=== PATIENT | male | born 1955 | race Caucasian/White ===

== ENCOUNTER 2020-03-14 13:04 | Emergency (ER) | payer OTHER, SELFPAY ==
[2020-03-14 13:19] VITALS: BP 120/67; BP 138/68; PULSE 65; PULSE 87; RESP 18; TEMP 36.8; O2SAT 96; BMI 34.9
--- NOTE | 2020-03-14 13:43 | ED.GENADULT ---
HPI - General Adult General Chief complaint: General Medical Stated complaint: R FLANK PAIN X'S 3 DAYS,PAIN W/URINE Time Seen by Provider: 03/14/20 13:36 Source: patient Mode of arrival: ambulatory Limitations: no limitations History of Present Illness HPI narrative: Patient presents to ED for right flank pain and dysuria for the past 3 days. Patient denies any recent trauma, heavy lifting. Patient denies any nausea, vomiting, fever, or chills patient denies any blood in stool or urine. Related Data Previous Rx's Medication Instructions Recorded cyclobenzaprine 10 mg PO TID PRN #15 tab 03/14/20 naproxen 500 mg PO BID PRN #20 tab 03/14/20 Allergies Allergy/AdvReac Type Severity Reaction Status Date / Time ENVIRONMENTAL Allergy Mild SNEEZING, Uncoded 01/25/20 15:36 WATERY EYES Review of Systems Review of Systems: Yes all other systems are reviewed and are negative Constitutional: Constitutional: Reports as per HPI and Reports no additional constitutional complaints Eyes: Eyes: Reports as per HPI and Reports no additional eye complaints ENT: Reports system reviewed and no additional complaints, except as documented and Reports as per HPI Cardiovascular: Cardiovascular: Reports as per HPI and Reports no additional cardiovascular complaints Respiratory: Respiratory: Reports as per HPI and Reports no additional respiratory complaints Gastrointestinal: Gastrointestinal: Reports as per HPI and Reports no additional gastrointestinal complaints Genitourinary: Genitourinary: Reports dysuria and Reports flank pain ( Right) Musculoskeletal: Musculoskeletal: Reports no additional musculoskeletal complaints Neurologic: Reports system reviewed and no additional complaints, except as documented and Reports as per HPI Psychiatric: Psychiatric: Reports no additional psychiatric complaints and Reports as per HPI [facility] Past Medical History Medical History (Updated 03/14/20 @ 18:36 by DARLINE Leiva) Diabetes mellitus type 1 Hypertension Social History Social History Alcohol intake: former Smoking Status: Former smoker Use of substances other than those prescribed or required for medical reasons: No Advance Directives: Yes Advance Directives Information Provided: Yes Advance Directives on File: No Physical Exam Vital Signs: Vital Signs: Vital Signs Temp Pulse Resp BP Pulse Ox 03/14/20 17:27 97.6 F 86 18 132/69 96 03/14/20 13:19 98.2 F 87 18 120/67 96 Body Mass Index 34.9 Const: General: cooperative, healthy appearing, comfortable, no acute distress, well developed, alert and awake Orientation/consciousness: oriented to person, oriented to place, oriented to time and patient oriented x3 HENMT: Head: Yes normal to inspection and Yes No palpable skull fracture present Eyes: General: appearance normal, both eyes and all related structures Visual Emery: normal visual emery by confrontation Neck: Neck: Yes normal visual inspection and Yes full ROM Chest: Chest palpation & inspection: normal inspection of the chest and normal palpation of entire chest wall Resp: Effort & Inspection: normal respiratory effort and able to speak in complete sentences Cardio: Jugular venous distension: no JVD Heart sounds: S1 normal heart sound present and S2 normal heart sound present GI: Inspection: Yes normal to inspection and No abdominal wall ecchymosis Palpation (GI): Soft to palpation, not firm, Tenderness to palpation present (GI) in the RLQ; not at McBurney's point, not periumbilically, not suprapubicly, Gagnon's sign negative, obturator sign negative, with no rebound tenderness and Rovsing's sign negative, no guarding and not rigid : General: Yes CVA tenderness (RIght) Back/Spine/Pelvis: Back: CVA tenderness (RIght) Skin: General skin exam: no rashes or lesions noted Neuro: General: oriented to person, oriented to place, oriented to time, patient oriented x3, gait normal, tone normal and CN's II-XI intact bilaterally Cranial nerves: Yes CN's II-XII intact bilaterally Extrem: General: Yes normal to inspection and Yes full ROM Psych: Appearance: grossly normal, well kempt and not disheveled Course Course Course Narrative: history and physical exam indicate renal colic. Will do basic labs, urine, CT scan, and IV fluids if necessary. Reevaluation(s) Reevaluation #1: patient does not want to give urine. Patient sent for abdominal CT scan in the meantime to rule out kidney stones. Patient is not in any distress. Time: 15:45 Reevaluation #2: patient labs came back normal. UA came back normal. CT scan does not show any final/pelvic etiology. Patient was re-evaluated and he reiterated dysuria and also flank pain is worse on movement. Most likely muscular will give patient Flexeril after given morphine. Time: 17:34 Reevaluation #3: Patient is sleeping and not in any distress. Patient will be discharged with NSAIDs and muscle relaxer. I do not suspect renal artery thrombus/occlusion. Patient is not hypertensive. Patient's kidney function is normal. Patient also states pain is worse on movement on re-evaluation earlier in the ED visit. Patient is safe for discharge. Time: 18:35 Additional Reevaluation(s): Patient walked out the ER before discharge papers could be given to him. Nursing and I went back to the bed and patient was not at the bed and his hospital gown was on the bed. Plan was to educate and re-evaluate patient. Medical Decision Making MDM Narrative Medical decision making narrative: muscular pain Lab Data Result diagrams: 03/14/20 14:47 03/14/20 14:47 Labs: Lab Results 03/14/20 03/14/20 03/14/20 Range/Units 14:47 14:47 14:47 WBC 9.1 (4.8-10.8) X10*3/uL RBC 4.69 (4.60-5.80) X10*6/uL Hgb 14.8 (14.0-18.0) g/dl Hct 44.3 (42-52) % MCV 94.5 (80-98) fL MCH 31.6 (27.0-33.0) pg MCHC 33.4 (31.0-36.0) g/dl RDW 13.7 (11.0-16.0) % Plt Count 232 (160-400) X10*3/uL MPV 9.1 L (9.4-12.4) fL Immature Gran % (Auto) 0.2 (0.0-0.4) % Neut % (Auto) 71.7 (45-73) % Lymph % (Auto) 16.0 L (20-40) % [place] % (Auto) 6.6 (2-11) % Eos % (Auto) 4.7 H (0-4) % Baso % (Auto) 0.8 (0-2) % Lymph # (Auto) 1.5 (1.2-4.9) X10*3/uL [place] # (Auto) 0.6 (0.1-1.2) X10*3/uL Eos # (Auto) 0.4 (0.0-0.4) X10*3/uL Baso # (Auto) 0.1 (0.0-0.2) X10*3/uL Abs Immat Gran (auto) 0.02 (0.00-0.03) X10*3/uL Absolute Neuts (auto) 6.5 (2.0-8.3) X10*3/uL Absolute Nucleated RBC 0.000 (0.0-0.012) X10*3/uL Nucleated RBC % (auto) 0.0 (0.0-0.2) /100WBC PT 13.5 H (10.8-13.0) SEC INR 1.1 (0.9-1.1) APTT 33.6 (24.1-38.0) SEC Sodium 139 (135-145) mmol/L Potassium 4.0 (3.3-5.1) mmol/l Chloride 100 (96-108) mmol/L Carbon Dioxide 29 (22-29) mmol/L Anion Gap 14 (12-20) BUN 11 (9-16) mg/dL Creatinine 1.02 (0.5-1.4) mg/dL Estim Creat Clear Calc 85.6 Estimated GFR > 60 Random Glucose 109 (60-115) mg/dL Calcium 8.0 L (8.4-10.2) mg/dL Total Bilirubin 0.3 (0.0-1.0) mg/dL AST 18 (5-37) U/L ALT 11 (0-40) U/L Alkaline Phosphatase 95 (39-117) U/L Total Protein 6.7 (6.5-8.0) g/dL Albumin 4.1 (3.5-5.0) g/dL Urine Color Urine Appearance Urine pH (5.0-8.0) Ur Specific [place] (1.005-1.025) Urine Protein (NEG-TRACE) MG/DL Urine Glucose (UA) (NEG) MG/DL Urine Ketones (NEG) MG/DL Urine Blood (NEG) Urine Nitrite (NEG) Ur Leukocyte Esterase (NEG) 03/14/20 Range/Units 16:07 WBC (4.8-10.8) X10*3/uL RBC (4.60-5.80) X10*6/uL Hgb (14.0-18.0) g/dl Hct (42-52) % MCV (80-98) fL MCH (27.0-33.0) pg MCHC (31.0-36.0) g/dl RDW (11.0-16.0) % Plt Count (160-400) X10*3/uL MPV (9.4-12.4) fL Immature Gran % (Auto) (0.0-0.4) % Neut % (Auto) (45-73) % Lymph % (Auto) (20-40) % [place] % (Auto) (2-11) % Eos % (Auto) (0-4) % Baso % (Auto) (0-2) % Lymph # (Auto) (1.2-4.9) X10*3/uL [place] # (Auto) (0.1-1.2) X10*3/uL Eos # (Auto) (0.0-0.4) X10*3/uL Baso # (Auto) (0.0-0.2) X10*3/uL Abs Immat Gran (auto) (0.00-0.03) X10*3/uL Absolute Neuts (auto) (2.0-8.3) X10*3/uL Absolute Nucleated RBC (0.0-0.012) X10*3/uL Nucleated RBC % (auto) (0.0-0.2) /100WBC PT (10.8-13.0) SEC INR (0.9-1.1) APTT (24.1-38.0) SEC Sodium (135-145) mmol/L Potassium (3.3-5.1) mmol/l Chloride (96-108) mmol/L Carbon Dioxide (22-29) mmol/L Anion Gap (12-20) BUN (9-16) mg/dL Creatinine (0.5-1.4) mg/dL Estim Creat Clear Calc Estimated GFR Random Glucose (60-115) mg/dL Calcium (8.4-10.2) mg/dL Total Bilirubin (0.0-1.0) mg/dL AST (5-37) U/L ALT (0-40) U/L Alkaline Phosphatase (39-117) U/L Total Protein (6.5-8.0) g/dL Albumin (3.5-5.0) g/dL Urine Color YELLOW Urine Appearance CLEAR Urine pH 6.5 (5.0-8.0) Ur Specific [place] 1.010 (1.005-1.025) Urine Protein NEG (NEG-TRACE) MG/DL Urine Glucose (UA) NEG (NEG) MG/DL Urine Ketones NEG (NEG) MG/DL Urine Blood NEG (NEG) Urine Nitrite NEG (NEG) Ur Leukocyte Esterase NEG (NEG) Discharge Plan Discharge Clinical Impression: Acute right flank pain, Muscle strain Patient Disposition: Elopement Instructions: Muscle Strain (ED), Flank Pain (ED) Additional Instructions: return to the ED for worsening flank pain, high blood pressure, nausea, vomiting, hematuria, dysuria, fever, chills, chest pain, shortness of breath, or any other concerning symptoms. Prescriptions: New naproxen 500 mg tablet 500 mg PO BID PRN (Reason: pain) Qty: 20 RF: 0 cyclobenzaprine 10 mg tablet 10 mg PO TID PRN (Reason: muscle spasm) Qty: 15 RF: 0 Referrals: Jaylen Cummings MD [Primary Care Provider] - 2 days (Muscular flank pain) Stand Alone Forms: Work/School Release Interventions: ED Discharge Assessment Last Done: 03/14/20 19:04 Discharge Date/Time: 03/14/20 19:06 Print Language: Danish
[2020-03-14] MEDS: Ketorolac Tromethamine 30 MG/ML VIAL IM (14:32)
--- NOTE | 2020-03-14 14:32 | CT_ITS ---
EXAMINATION: CT ABDOMEN AND PELVIS WITHOUT CONTRAST CLINICAL INFORMATION: Right flank pain. Kidney stones. COMPARISON: CT scan abdomen pelvis 02/05/2020, 12/31/2019 TECHNIQUE: Multidetector volumetric imaging was performed from the superior aspect of the liver through the pubic symphysis. Sagittal and coronal reformatted images were obtained on the technologist's workstation. This CT examination was performed using dose optimization techniques as appropriate, variously including the following: *Automated exposure control *Adjustment of mA and/or kV according to patient size (this includes techniques or standardized protocols for targeted exams where dose is matched to indication/reason for exam; i.e. extremities or head) *Use of iterative reconstruction technique DLP: 759 mGy-cm FINDINGS: LUNG BASES: Scarring/dependent atelectasis at the posterior dependent lung bases bilateral. There is no pleural effusion. LIVER, GALLBLADDER, AND BILIARY TREE: The liver is normal in size, shape, and attenuation. No focal hepatic lesion or biliary ductal dilatation is present. The gallbladder is unremarkable with no evidence of radiopaque gallstones, gallbladder wall thickening, or obvious pericholecystic inflammatory changes. PANCREAS: Unremarkable. SPLEEN: Unremarkable. ADRENAL GLANDS: Unremarkable. KIDNEYS AND URETERS: The kidneys are normal in size, shape, and attenuation. No hydronephrosis, hydroureter, or calculi seen. No perinephric stranding. BLADDER: Unremarkable. GASTROINTESTINAL TRACT: There are numerous diverticula of the proximal sigmoid colon and the descending colon. There are scattered diverticula in the remainder the colon. There is no diverticulitis. There is no bowel wall thickening /edema. There is no bowel obstruction. There is a moderate volume of stool in the colon. The appendix is normal . The small bowel loops are unremarkable. The stomach is normal. There is no hiatal hernia. ABDOMINAL WALL: No significant hernia is appreciated. LYMPH NODES: Normal. VASCULAR: There are scattered vascular calcifications of aorta and iliac arteries. There is no aneurysm. PELVIC VISCERA: Prostate measures 4.3 cm transverse OSSEOUS STRUCTURES: Unremarkable. CT/CT abdomen pelvis wo con IMPRESSION: There is no acute abnormality CT scan abdomen pelvis. Normal kidneys, ureter and bladder. There is diverticulosis of the colon without evidence of diverticulitis
[2020-03-14 14:52] LABS: MANUAL DIFF FLAG NO
[2020-03-14 14:56] LABS: Basophils Absolute Auto 0.1 X10*3/uL (0.0-0.2); Basophils Percent Auto 0.8 % (0-2); Eosinophils Absolute Auto 0.4 X10*3/uL (0.0-0.4); Eosinophils Percent Auto 4.7 % (0-4); Hematocrit 44.3 % (42-52); Hemoglobin 14.8 g/dl (14.0-18.0); Imm Gran Abs Auto 0.02 X10*3/uL (0.00-0.03); Imm Gran Pct Auto 0.2 % (0.0-0.4); Lymphocytes Absolute Auto 1.5 X10*3/uL (1.2-4.9); Mean Corpuscular HGB Conc 33.4 g/dl (31.0-36.0); Mean Corpuscular Hemoglobin 31.6 pg (27.0-33.0); Mean Corpuscular Volume 94.5 fL (80-98); Mean Platelet Volume 9.1 fL (9.4-12.4); Monocytes Absolute Auto 0.6 X10*3/uL (0.1-1.2); Monocytes Percent Auto 6.6 % (2-11); Neutrophils Absolute Auto 6.5 X10*3/uL (2.0-8.3); Neutrophils Percent Auto 71.7 % (45-73); Platelet Count 232 X10*3/uL (160-400); Red Blood Count 4.69 X10*6/uL (4.60-5.80); Red Cell Distribution Width 13.7 % (11.0-16.0); White Blood Count 9.1 X10*3/uL (4.8-10.8)
[2020-03-14 14:58] LABS: INTERNATIONAL NORM RATIO 1.1 (0.9-1.1); Prothrombin Time 13.5 SEC (10.8-13.0)
[2020-03-14 15:01] LABS: Partial Thromboplastin Time 33.6 SEC (24.1-38.0)
[2020-03-14 15:13] LABS: Alanine Aminotransferase 11 U/L (0-40); Albumin Level 4.1 g/dL (3.5-5.0); Alkaline Phosphatase 95 U/L (39-117); Anion Gap 14 (12-20); Aspartate Amino Transferase 18 U/L (5-37); Bilirubin Total 0.3 mg/dL (0.0-1.0); Blood Urea Nitrogen 11 mg/dL (9-16); Carbon Dioxide 29 mmol/L (22-29); Chloride 100 mmol/L (96-108); Creatinine Clr Calc Pharmacy 85.6; Estimated Glomerular Filt Rate > 60; Glucose Random 109 mg/dL (60-115); Sodium 139 mmol/L (135-145); Total Protein 6.7 g/dL (6.5-8.0)
[2020-03-14 16:20] LABS: Glucose Urine UA NEG (NEG); Leukocyte Esterase Urine NEG (NEG); Nitrite Urine NEG (NEG); PH 6.5 (5.0-8.0); Urine Blood NEG (NEG); Urine Ketones NEG (NEG); Urine Protein NEG (NEG-TRACE)
[2020-03-14 16:26] LABS: Appearance Urine CLEAR; Color Urine YELLOW
[2020-03-14] MEDS: Morphine Sulfate 4 MG/ML CARTRIDGE IM (16:54)
[2020-03-14 17:27] VITALS: BP 132/69; PULSE 86; RESP 18; TEMP 36.4; O2SAT 96
== END 2020-03-14 19:06 | disposition left against medical advice (07) ==
PROVIDERS: Physician Assistant; Emergency Provider Emergency Medicine; PCP Internal Medicine Geriatric Medicine
DX: S39.011A Strain of muscle, fascia and tendon of abdomen, initial encounter (principal); R10.9 Unspecified abdominal pain; E10.9 Type 1 diabetes mellitus without complications; I10 Essential (primary) hypertension; X50.3XXA Overexertion from repetitive movements, initial encounter; X50.0XXA Overexertion from strenuous movement or load, initial encounter; R30.0 Dysuria; X50.9XXA Other and unspecified overexertion or strenuous movements or postures, initial encounter; Y93.9 Activity, unspecified; Y92.9 Unspecified place or not applicable; Y99.9 Unspecified external cause status; Z79.899 Other long term (current) drug therapy
CPT/HCPCS: 36415; 74176; 80053; 81003; 85025; 85610; 85730; 96361; 96372; 96374; 96376; 99284; J1885; J2270

== ENCOUNTER → 2020-04-29 12:52 | Outpatient (REF) | payer OTHER, SELFPAY ==
--- NOTE | 2020-04-29 13:00 | CA_ITS ---
Transthoracic Echocardiogram Patient (Last, First, Middle): Kenneth Aragon A Gender: Male Date of : 1955 Age: 64 Procedure Date: 04/29/2020 Procedure Type: Transthoracic Echocardiogram Location: OP Height: 172.72 cm Weight: 104.33 kg BSA: 2.17 m2 Heart Rate: bpm BP: 120 / 82 mmHg Security Professional: LINDSEY Sood MD: Tanya Kilgore NP-Jreardo Die Developer: Johnson Senior MD Symptoms: I35.0 , I10 HTN Study Quality: Fair ECG Rhythm: Sinus Conclusions: - 1. Normal LV systolic function with impaired relaxation filling pattern 2. Moderate severe aortic stenosis 3. No pericardial effusion Findings Procedure Information The patient declines contrast. Left Ventricle Normal left ventricular size, thickness, and systolic function. The visually estimated ejection fraction is between 55-60%. Spectral Doppler is indicative of an impaired relaxation filling pattern. E/E prime ratio is between 8 and 15 consistent with indeterminate filling pressures. Right Ventricle The right ventricle was not well visualized. Atria The left atrium is normal in size. Interatrial shunt cannot be excluded. The right atrium was not well visualized. Aortic Valve There is moderate calcification of the aortic valve. There is moderate thickening of the aortic valve. There is moderate to severe aortic valve stenosis. The peak aortic gradient is 51 mmHg.The mean gradient is 27 mmHg. The aortic valve area is 1.05 cm2. There is trace (trivial) aortic valve regurgitation. Mitral Valve There is mild anterior mitral leaflet thickening. There is trace mitral valve regurgitation. There is no mitral valve stenosis. Pulmonic Valve The pulmonic valve was not well visualized. Tricuspid Valve The tricuspid valve was not well visualized. Tricuspid regurgitation envelope is inadequate for calculation of right ventricular systolic pressure. Great Vessels All visible segments of the aorta are normal in size. The pulmonary artery was not well visualized. Venous The inferior vena cava is normal in size and collapses greater than 50% with inspiration. Pericardium/Pleural There is no evidence of pericardial effusion. Prior Study Comparison Changes noted compared to prior study dated: 04/25/2019. Moderate-severe is present Measurements 2D Linear Measurements IVSd: 1.09 0.6-0.9/0.6-1.0 cm LVIDd: 4.39 3.9-5.3/4.2-5.9 cm LVIDd Index: 2.02 2.4-3.2/2.2-3.1 cm/m2 LVIDs: 2.79 2.0-3.6 cm LVPWd: 1.07 0.7-1.1 cm Ao Root: 3.10 2.1-3.5 cm LA Diam: 2.80 2.7-3.8/3.0-4.0 cm LAIDs Index: 1.29 1.5-2.3 cm/m2 LV Mass: 204.26 67-162/88-224 g LV Mass Index: 94.13 43-95/49-115 g/m2 LVOT Diam: 2.10 3.0+(-)1.3 cm 2D Systolic Function EF 4C: 56.70 >55% EF 2C: 61.50 >55% EF BiP: 58.20 >55% Mitral Valve MV Pk E: 1.01 MV PK A: 0.83 MV Decel Time: 232.00 E/A: 1.20 E'Lateral: 7.72 E'Medial: 6.42 E/E' Med: 15.70 E/E' Lat: 13.10 PHT: 68.00 MVA PHT: 3.24 Decel [place]: 4.34 Aortic Valve AoV Pk Elpidio: 3.58 AoV Mn Elpidio: 2.47 AoV VTI: 0.79 AoV Pk Grad: 51.00 Aov Mn Grad: 27.00 MABEL Cont.VTI: 1.05 LVOT LVOT Pk Elpidio: 1.07 LVOT Mn Elpidio: 0.74 LVOT VTI: 0.24 LVOT Pk Grad: 5.00 LVOT Mn Grad: 2.00 LVOT Diam: 2.10 LVOT Area: 3.46 Diastolic Function MV Pk E: 1.01 MV Pk A: 0.83 E/A: 1.20 E'Medial: 6.42 E/E' Med: 15.70 E' Laterial: 7.72 E/E' Lat: 13.10 Tricuspid Valve RA Press: 3.00 Great Vessels Aorta Ao Root-2D: 3.10 2.0-3.7 cm Ao Asc: 3.00 2.1-3.4 cm Updated in Other Vendor System with Status of Final Johnson Senior MD electronically signed on 04/29/2020 6:28:20 PM with status of Final
--- NOTE | 2020-04-29 14:02 | XR_ITS ---
EXAMINATION: XR SHOULDER, LEFT CLINICAL INFORMATION: Left shoulder pain. COMPARISON: Radiographs left shoulder 04/30/2008 TECHNIQUE: Left shoulder is imaged in 4 views. FINDINGS: There is no fracture, dislocation, or destructive process. The acromioclavicular alignment is normal. There are progressive osteoarthritic changes glenohumeral joint with joint narrowing and mild subchondral sclerosis and spurring. Some focal calcific tendinosis is seen at the origin long head biceps at the superior aspect glenoid rim. The calcific tendinosis noted previously and distal superior rotator cuff is not demonstrated on current study. XR/XR shoulder LT min 2V IMPRESSION: 1. Osteoarthritis glenohumeral joint increased since prior study 2007. 2. Calcific tendinosis in region of proximal long head biceps at the superior glenoid.
== END ==
LOC: HO.CARD 12:52
PROVIDERS: Visit Provider Nurse Practitioner Family
DX: M25.512 Pain in left shoulder (principal); I35.0 Nonrheumatic aortic (valve) stenosis; I50.30 Unspecified diastolic (congestive) heart failure; I11.0 Hypertensive heart disease with heart failure
CPT/HCPCS: 73030; 93306

== ENCOUNTER → 2020-06-03 10:41 | Outpatient (BNVA) | payer OTHER, SELFPAY | PROVIDERS: PCP Internal Medicine Geriatric Medicine; Visit Provider Nurse Practitioner Family | DX: I35.0 Nonrheumatic aortic (valve) stenosis (principal); I51.89 Other ill-defined heart diseases; I50.30 Unspecified diastolic (congestive) heart failure; I11.0 Hypertensive heart disease with heart failure; E66.9 Obesity, unspecified; F10.10 Alcohol abuse, uncomplicated; J44.9 Chronic obstructive pulmonary disease, unspecified | CPT/HCPCS: 99212 ==

== ENCOUNTER 2020-07-03 04:43 | Emergency (ER) | payer OTHER, SELFPAY ==
--- NOTE | ~2020-07-03 | XR_ITS ---
EXAMINATION: XR CHEST CLINICAL INFORMATION: Shortness of breath COMPARISON: 01/31/2020 TECHNIQUE: Frontal view of the chest was obtained. FINDINGS: Right shoulder arthroplasty. The lungs are well expanded. There is no focal consolidation, edema, or effusion. No pneumothorax. The cardiomediastinal silhouette is within normal limits. No acute osseous abnormality. XR/XR chest 1V IMPRESSION: No acute pulmonary finding.
[2020-07-03 04:56] VITALS: BP 145/95; BP 158/79; PULSE 108; PULSE 110; RESP 26; TEMP 37.1; O2SAT 94; O2SAT 95; BMI 58.6
--- NOTE | 2020-07-03 05:06 | ED_ITS ---
HPI - SOB/Dyspnea General Chief Complaint: Upper Respiratory Symptoms Stated Complaint: SOB AND LEFT SIDE PAIN Time Seen by Provider: 07/03/20 04:55 Source: patient Mode of arrival: EMS Limitations: no limitations History of Present Illness HPI Narrative: Patient chronic smoker with history of COPD diastolic heart f ailure been coughing for last 2 weeks mostly dry cough with shortness of breath also complaining of left lower rib pain , no fever no chills no exposure to COVID no other family member is sick no fall no diaphoresis MD elicited complaint: shortness of breath and cough Pertinent past history: COPD and congestive heart failure Onset (ago): week(s) (2) Timing: intermittent Severity: moderate Exacerbating factors: coughing Relieving factors: nothing Known history of: COPD and congestive heart failure Associated symptoms: pain with inspiration Related Data Home Medications Medication Instructions Recorded Confirmed albuterol sulfate 90 mcg/actuation 0 mcg INHALATION 06/03/20 06/03/20 aerosol inhaler aspirin 81 mg tablet,delayed 81 mg PO BEDTIME 06/03/20 06/03/20 release buspirone 5 mg tablet 5 mg PO 06/03/20 06/03/20 celecoxib 50 mg capsule 50 mg PO DAILY cap 06/03/20 06/03/20 fluticasone propionate 50 1 - 2 spray INTRANASAL DAILY PRN 06/03/20 06/03/20 mcg/actuation nasal spray,suspension folic acid 1 mg tablet 1 mg PO BEDTIME 06/03/20 06/03/20 furosemide 20 mg tablet 20 mg PO DAILY 06/03/20 06/03/20 gabapentin 300 mg capsule 300 mg PO DAILY cap 06/03/20 06/03/20 insulin aspart U-100 100 unit/mL 15 unit SUBCUT TID 06/03/20 06/03/20 subcutaneous solution insulin glargine 100 unit/mL 40 unit SUBCUT BEDTIME 06/03/20 06/03/20 subcutaneous solution lisinopril 10 mg tablet 10 mg PO QAM 06/03/20 06/03/20 multivitamin 1 tab PO QAM 06/03/20 06/03/20 omega-3 fatty acids-fish oil 340 1 cap PO QAM 06/03/20 06/03/20 mg-1,000 mg capsule omeprazole 20 mg capsule,delayed 20 mg PO QAM 06/03/20 06/03/20 release quetiapine 50 mg tablet 50 mg PO DAILY tab 06/03/20 06/03/20 simvastatin 20 mg tablet 20 mg PO BEDTIME 06/03/20 06/03/20 thiamine HCl (vitamin B1) 100 mg 100 mg PO DAILY 06/03/20 06/03/20 tablet Previous Rx's Medication Instructions Recorded cyclobenzaprine 10 mg PO TID PRN #15 tab 03/14/20 naproxen 500 mg PO BID PRN #20 tab 03/14/20 cefuroxime axetil 500 mg PO BID #20 tab 07/03/20 codeine-guaifenesin 5 ml PO Q6H PRN #120 ml 07/03/20 doxycycline hyclate 100 mg PO BID #20 cap 07/03/20 prednisone 40 mg PO DAILY #10 tab 07/03/20 tramadol 50 mg PO Q6H PRN #20 tab 07/03/20 Allergies Allergy/AdvReac Type Severity Reaction Status Date / Time ENVIRONMENTAL Allergy Mild SNEEZING, Uncoded 01/25/20 15:36 WATERY EYES Review of Systems Review of Systems: Constitutional : No Weight loss, No Fever, No Chills ENT/Mouth : No sore throat, No Rhinorrhea Eyes: No Eye Pain, No Swelling Cardiovascular :+ Chest Pain, no palpitations Respiratory :+Cough, +Sputum, +shortness of breath Gastrointestinal : no Nausea, No Vomiting, No Diarrhea, No abdominal Pain, no black stools Genitourinary : No Dysuria, No Urinary Frequency Musculoskeletal : No joint pain, No Myalgias, No Joint Swelling Skin : No Skin Lesions, No rash Neuro : No Weakness, No Numbness, No Dizziness, No Headache Psych : No Anxiety/Panic, No Depression Heme/Lymph: No Bruising, No Lymphadenopathy Endocrine : No Polyuria, No Polydipsia All other systems reviewed and are negative [facility] Past Medical History Medical History Alcohol abuse COPD (chronic obstructive pulmonary disease) Diabetes mellitus type 1 Diastolic dysfunction Diastolic heart failure HLD (hyperlipidemia) Hypertension Nonrheumatic aortic (valve) stenosis Obesity Family History Family History Father Diabetes Mother Diabetes Social History Social History Alcohol intake: never Smoking Status: Light tobacco smoker Use of substances other than those prescribed or required for medical reasons: No Advance Directives: No Physical Exam Vital Signs: Vital Signs: Last Vital Signs Temp 98.7 F 07/03/20 06:00 Pulse 103 H 07/03/20 06:05 Resp 16 07/03/20 06:00 BP 108/61 07/03/20 06:00 Pulse Ox 95 07/03/20 06:00 Body Mass Index 58.6 Const: General: alert and in distress Nutritional Appearance: obese Orientation/consciousness: patient oriented x3 Limitations: no limitations HENMT: Head: Yes normocephalic and Yes atraumatic Mouth: Normal oral and palatal mucosa present Eyes: General: appearance normal, both eyes and all related structures Neck: Neck: Yes normal visual inspection and Yes no JVD Chest: Chest palpation & inspection: normal inspection of the chest and normal palpation of entire chest wall Resp: Effort & Inspection: labored and tachypneic Auscultation: no crackles, no rales, rhonchi, wheezes and diminished lung sounds Cardio: Jugular venous distension: no JVD Palpation: normal PMI Rate: regular rate Rhythm: regular rhythm Heart sounds: S1 normal heart sound present and S2 normal heart sound present Peripheral pulses: Peripheral pulses 2+ throughout GI: Inspection: Yes normal to inspection Palpation (GI): Soft to palpation and nontender Auscultation: normal bowel sounds : General: Yes no CVA tenderness Back/Spine/Pelvis: Back: no CVA tenderness Thoracic/Lumbar Spine: thoracic and lumbar spine normal to inspection Skin: General skin exam: no rashes or lesions noted Neuro: General: patient oriented x3, no focal motor deficits and CN's II-XI intact bilaterally Extrem: General: Yes normal to inspection, Yes full ROM, Yes no calf tenderness and No pedal edema MDM - SOB/Dyspnea MDM Narrative Medical decision making narrative: Patient with COPD chronic cough EKG without any ischemic changes chest x-ray negative COVID negative feeling better now will discharge patient home on steroids antibiotics and cough syrup saturating 95% at room air Differential Diagnosis Differential diagnosis: Likely acute exacerbation of chronic obstructive airways disease, congestive heart failure and pneumonia Medical Records Attestation: I reviewed the patient's medical records. Lab Data Attestation: I reviewed the patient's lab results. Result diagrams: 07/03/20 05:16 07/03/20 05:16 Labs: Lab Results 07/03/20 07/03/20 07/03/20 Range/Units 05:16 05:16 05:16 WBC 8.9 (4.8-10.8) X10*3/uL RBC 4.97 (4.60-5.80) X10*6/uL Hgb 15.0 (14.0-18.0) g/dl Hct 45.3 (42-52) % MCV 91.1 (80-98) fL MCH 30.2 (27.0-33.0) pg MCHC 33.1 (31.0-36.0) g/dl RDW 13.0 (11.0-16.0) % Plt Count 206 (160-400) X10*3/uL MPV 9.3 L (9.4-12.4) fL Immature Gran % (Auto) 0.3 (0.0-0.4) % Neut % (Auto) 72.0 (45-73) % Lymph % (Auto) 15.2 L (20-40) % Merrick % (Auto) 6.5 (2-11) % Eos % (Auto) 5.3 H (0-4) % Baso % (Auto) 0.7 (0-2) % Lymph # (Auto) 1.4 (1.2-4.9) X10*3/uL Merrick # (Auto) 0.6 (0.1-1.2) X10*3/uL Eos # (Auto) 0.5 H (0.0-0.4) X10*3/uL Baso # (Auto) 0.1 (0.0-0.2) X10*3/uL Abs Immat Gran (auto) 0.03 (0.00-0.03) X10*3/uL Absolute Neuts (auto) 6.4 (2.0-8.3) X10*3/uL Absolute Nucleated RBC 0.000 (0.0-0.012) X10*3/uL Nucleated RBC % (auto) 0.0 (0.0-0.2) /100WBC PT 11.5 (10.8-13.0) SEC INR 1.0 (0.9-1.1) APTT 31.7 (24.1-38.0) SEC D-Dimer < 200 NG/ML Sodium 136 (135-145) mmol/L Potassium 4.6 (3.3-5.1) mmol/L Chloride 95 L (96-108) mmol/L Carbon Dioxide 32 H (22-29) mmol/L Anion Gap 14 (12-20) BUN 19 H D (9-16) mg/dL Creatinine 1.36 (0.5-1.4) mg/dL Estim Creat Clear Calc 86.1 Estimated GFR 53 Random Glucose 244 H D (60-115) mg/dL Lactic Acid (0.5-2.0) mmol/L Calcium 9.3 D (8.4-10.2) mg/dL Troponin I High Sens (<3.5-35.0) ng/L B-Natriuretic Peptide (<100) pg/mL Lipase (8-78) U/L COVID-19 (ELIER) (Negative) COVID-19 Clin Com 07/03/20 07/03/20 07/03/20 Range/Units 05:16 05:16 05:16 WBC (4.8-10.8) X10*3/uL RBC (4.60-5.80) X10*6/uL Hgb (14.0-18.0) g/dl Hct (42-52) % MCV (80-98) fL MCH (27.0-33.0) pg MCHC (31.0-36.0) g/dl RDW (11.0-16.0) % Plt Count (160-400) X10*3/uL MPV (9.4-12.4) fL Immature Gran % (Auto) (0.0-0.4) % Neut % (Auto) (45-73) % Lymph % (Auto) (20-40) % Merrick % (Auto) (2-11) % Eos % (Auto) (0-4) % Baso % (Auto) (0-2) % Lymph # (Auto) (1.2-4.9) X10*3/uL Merrick # (Auto) (0.1-1.2) X10*3/uL Eos # (Auto) (0.0-0.4) X10*3/uL Baso # (Auto) (0.0-0.2) X10*3/uL Abs Immat Gran (auto) (0.00-0.03) X10*3/uL Absolute Neuts (auto) (2.0-8.3) X10*3/uL Absolute Nucleated RBC (0.0-0.012) X10*3/uL Nucleated RBC % (auto) (0.0-0.2) /100WBC PT (10.8-13.0) SEC INR (0.9-1.1) APTT (24.1-38.0) SEC D-Dimer NG/ML Sodium (135-145) mmol/L Potassium (3.3-5.1) mmol/L Chloride (96-108) mmol/L Carbon Dioxide (22-29) mmol/L Anion Gap (12-20) BUN (9-16) mg/dL Creatinine (0.5-1.4) mg/dL Estim Creat Clear Calc Estimated GFR Random Glucose (60-115) mg/dL Lactic Acid 2.1 H* (0.5-2.0) mmol/L Calcium (8.4-10.2) mg/dL Troponin I High Sens 13.8 (<3.5-35.0) ng/L B-Natriuretic Peptide (<100) pg/mL Lipase 21 (8-78) U/L COVID-19 ([facility]IER) (Negative) COVID-19 Clin Com 07/03/20 07/03/20 Range/Units 05:16 05:16 WBC (4.8-10.8) X10*3/uL RBC (4.60-5.80) X10*6/uL Hgb (14.0-18.0) g/dl Hct (42-52) % MCV (80-98) fL MCH (27.0-33.0) pg MCHC (31.0-36.0) g/dl RDW (11.0-16.0) % Plt Count (160-400) X10*3/uL MPV (9.4-12.4) fL Immature Gran % (Auto) (0.0-0.4) % Neut % (Auto) (45-73) % Lymph % (Auto) (20-40) % Merrick % (Auto) (2-11) % Eos % (Auto) (0-4) % Baso % (Auto) (0-2) % Lymph # (Auto) (1.2-4.9) X10*3/uL Merrick # (Auto) (0.1-1.2) X10*3/uL Eos # (Auto) (0.0-0.4) X10*3/uL Baso # (Auto) (0.0-0.2) X10*3/uL Abs Immat Gran (auto) (0.00-0.03) X10*3/uL Absolute Neuts (auto) (2.0-8.3) X10*3/uL Absolute Nucleated RBC (0.0-0.012) X10*3/uL Nucleated RBC % (auto) (0.0-0.2) /100WBC PT (10.8-13.0) SEC INR (0.9-1.1) APTT (24.1-38.0) SEC D-Dimer NG/ML Sodium (135-145) mmol/L Potassium (3.3-5.1) mmol/L Chloride (96-108) mmol/L Carbon Dioxide (22-29) mmol/L Anion Gap (12-20) BUN (9-16) mg/dL Creatinine (0.5-1.4) mg/dL Estim Creat Clear Calc Estimated GFR Random Glucose (60-115) mg/dL Lactic Acid (0.5-2.0) mmol/L Calcium (8.4-10.2) mg/dL Troponin I High Sens (<3.5-35.0) ng/L B-Natriuretic Peptide < 10 (<100) pg/mL Lipase (8-78) U/L COVID-19 ([facility]IER) Negative (Negative) COVID-19 Clin Com See Note ECG Data Attestation: I personally reviewed and interpreted this ECG as follows: Interpretation: Sinus tachycardia heart rate 101 beats per minute normal intervals normal axis no acute ST T wave changes impression sinus tachycardia Discharge Plan Discharge Clinical Impression: Acute bronchitis Qualifiers: Bronchitis organism: unspecified organism Qualified Code(s): J20.9 - Acute bronchitis, unspecified COPD (chronic obstructive pulmonary disease) Qualifiers: COPD type: chronic bronchitis Chronic bronchitis type: mucopurulent Qualified Code(s): J41.1 - Mucopurulent chronic bronchitis Patient Disposition: Home, Self-Care Instructions: Acute Bronchitis (ED), COPD (Chronic Obstructive Pulmonary Disease) (ED) Additional Instructions: Take antibiotic as prescribed. Cough syrup as prescribed. Use your albuterol inhaler every 4-6 hours as needed. Stop smoking. Report to the ER if not better Prescriptions: New doxycycline hyclate 100 mg capsule 100 mg PO BID Qty: 20 RF: 0 cefuroxime axetil 500 mg tablet 500 mg PO BID Qty: 20 RF: 0 codeine-guaifenesin 10-100 mg/5 mL liquid 5 ml PO Q6H PRN (Reason: cough) Qty: 120 RF: 0 prednisone 20 mg tablet 40 mg PO DAILY Qty: 10 RF: 0 tramadol 50 mg tablet 50 mg PO Q6H PRN (Reason: pain) Qty: 20 RF: 0 No Action naproxen 500 mg tablet 500 mg PO BID PRN (Reason: pain) Qty: 20 RF: 0 cyclobenzaprine 10 mg tablet 10 mg PO TID PRN (Reason: muscle spasm) Qty: 15 RF: 0 albuterol sulfate 90 mcg/actuation HFA aerosol inhaler 0 mcg inhalation RF: 0 celecoxib 50 mg capsule 50 mg PO DAILY RF: 0 quetiapine 50 mg tablet 50 mg PO DAILY RF: 0 Fish Oil 340-1,000 mg capsule 1 cap PO QAM RF: 0 folic acid 1 mg tablet 1 mg PO BEDTIME RF: 0 omeprazole 20 mg capsule,delayed release(DR/EC) 20 mg PO QAM RF: 0 gabapentin 300 mg capsule 300 mg PO DAILY RF: 0 lisinopril 10 mg tablet 10 mg PO QAM RF: 0 simvastatin 20 mg tablet 20 mg PO BEDTIME RF: 0 aspirin 81 mg tablet,delayed release (DR/EC) 81 mg PO BEDTIME RF: 0 thiamine HCl (vitamin B1) 100 mg tablet 100 mg PO DAILY RF: 0 multivitamin Tablet 1 tab PO QAM RF: 0 insulin aspart U-100 100 unit/mL solution 15 unit subcut TID RF: 0 Lantus U-100 Insulin 100 unit/mL solution 40 unit subcut BEDTIME RF: 0 buspirone 5 mg tablet 5 mg PO RF: 0 fluticasone propionate 50 mcg/actuation spray,suspension 1 - 2 spray intranasal DAILY PRNRF: 0 furosemide [Lasix] 20 mg tablet 20 mg PO DAILY RF: 0
--- NOTE | 2020-07-03 05:08 | ECG_ITS ---
Test Reason : SOB Blood Pressure : / mmHG Vent. Rate : 101 BPM Atrial Rate : 101 BPM P-R Int : 146 ms QRS Dur : 078 ms QT Int : 324 ms P-R-T Axes : 071 057 083 degrees QTc Int : 420 ms Sinus tachycardia Otherwise normal ECG When compared with ECG of 31-JAN-2020 22:05, Premature ventricular complexes are no longer Present Referred By: Diaz Berry Electronically Signed By:HERMAN TONEY MD
[2020-07-03 05:36] LABS: COVID-19 Test Negative (Negative)
[2020-07-03] MEDS: Ketorolac Tromethamine 30 MG/ML VIAL IVPUSH (05:46)
[2020-07-03 05:49] LABS: Basophils Absolute Auto 0.1 X10*3/uL (0.0-0.2); Basophils Percent Auto 0.7 % (0-2); Eosinophils Absolute Auto 0.5 X10*3/uL (0.0-0.4); Eosinophils Percent Auto 5.3 % (0-4); Hematocrit 45.3 % (42-52); Imm Gran Abs Auto 0.03 X10*3/uL (0.00-0.03); Imm Gran Pct Auto 0.3 % (0.0-0.4); Lymphocytes Absolute Auto 1.4 X10*3/uL (1.2-4.9); Lymphocytes Percent Auto 15.2 % (20-40); MANUAL DIFF FLAG NO; Mean Corpuscular HGB Conc 33.1 g/dl (31.0-36.0); Mean Corpuscular Hemoglobin 30.2 pg (27.0-33.0); Mean Corpuscular Volume 91.1 fL (80-98); Mean Platelet Volume 9.3 fL (9.4-12.4); Monocytes Absolute Auto 0.6 X10*3/uL (0.1-1.2); Monocytes Percent Auto 6.5 % (2-11); Neutrophils Absolute Auto 6.4 X10*3/uL (2.0-8.3); Platelet Count 206 X10*3/uL (160-400); Red Blood Count 4.97 X10*6/uL (4.60-5.80); White Blood Count 8.9 X10*3/uL (4.8-10.8)
[2020-07-03 05:59] LABS: Prothrombin Time 11.5 SEC (10.8-13.0)
[2020-07-03] MEDS: Albuterol/Iprat 2.5/0.5MG 3 ML AMPUL.NEB INHALE (05:59)
[2020-07-03 06:00] VITALS: BP 108/61; PULSE 101; RESP 16; TEMP 37.1; O2SAT 95
[2020-07-03 06:00] LABS: Lactic Acid 2.1 mmol/L (0.5-2.0)
[2020-07-03] MEDS: Albuterol Sulfate (0.083%) 2.5 MG/3 ML VIAL.NEB 5 MG INHALE (06:00)
[2020-07-03 06:02] LABS: Partial Thromboplastin Time 31.7 SEC (24.1-38.0)
[2020-07-03 06:04] LABS: D Dimer < 200 NG/ML
[2020-07-03 06:05] VITALS: PULSE 103; O2SAT 95
[2020-07-03] MEDS: guaiFEN/Codeine SF 200/20/10ML 10 ML LIQUID PO (06:22)
[2020-07-03] MEDS: cefTRIAXone sodium 1 GM in 0.9 % Sodium Chloride 50 ML IV (06:22)
[2020-07-03 06:24] LABS: Anion Gap 14 (12-20); Blood Urea Nitrogen 19 mg/dL (9-16); Calcium 9.3 mg/dL (8.4-10.2); Carbon Dioxide 32 mmol/L (22-29); Chloride 95 mmol/L (96-108); Creatinine Clr Calc Pharmacy 86.1; Estimated Glomerular Filt Rate 53; Glucose Random 244 mg/dL (60-115); Potassium 4.6 mmol/L (3.3-5.1); Sodium 136 mmol/L (135-145)
[2020-07-03 06:25] LABS: Lipase 21 U/L (8-78)
[2020-07-03 06:35] LABS: Troponin-I High Sensitivity 13.8 ng/L (<3.5-35.0)
[2020-07-03 06:58] LABS: B Type Natriuretic Peptide < 10 pg/mL (<100)
[2020-07-03 07:48] LABS: Reflex Lactate? Lactic Acid Added
== END 2020-07-03 07:19 | disposition home or self-care (01) ==
PROVIDERS: Emergency Provider Internal Medicine; PCP Internal Medicine
DX: J20.9 Acute bronchitis, unspecified (principal); J41.1 Mucopurulent chronic bronchitis; Z20.822 Contact with and (suspected) exposure to COVID-19; E10.9 Type 1 diabetes mellitus without complications; I11.0 Hypertensive heart disease with heart failure; I50.30 Unspecified diastolic (congestive) heart failure; F10.10 Alcohol abuse, uncomplicated; F17.210 Nicotine dependence, cigarettes, uncomplicated; Z79.4 Long term (current) use of insulin; Z79.899 Other long term (current) drug therapy
CPT/HCPCS: 36415; 71045; 80048; 83605; 83690; 83880; 84484; 85025; 85379; 85610; 85730; 87040; 87147; 87205; 87635; 93005; 94640; 94644; 96365; 96374; 96375; 99284; 99285; J0696; J1100; J1885

== ENCOUNTER 2020-08-24 15:53 | Emergency (ER) | payer OTHER, SELFPAY ==
--- NOTE | ~2020-08-24 | CT_ITS ---
EXAMINATION: CT ABDOMEN AND PELVIS WITHOUT CONTRAST CLINICAL INFORMATION: Left lower quadrant pain. Question diverticulitis. COMPARISON: Most recent CT abdomen/pelvis dated 03/14/2020. TECHNIQUE: Multidetector volumetric imaging was performed from the superior aspect of the liver through the pubic symphysis. Sagittal and coronal reformatted images were obtained on the technologist's workstation. This CT examination was performed using dose optimization techniques as appropriate, variously including the following: Automated exposure control. Adjustment of mA and/or kV according to patient size (this includes techniques or standardized protocols for targeted exams where dose is matched to indication/reason for exam; i.e. extremities or head). Use of iterative reconstruction technique. DLP: 692 mGy-cm FINDINGS: LUNG BASES: Mild bibasilar dependent atelectasis. LIVER, GALLBLADDER, AND BILIARY TREE: The liver is normal in size, shape, and attenuation. No focal hepatic lesion or biliary ductal dilatation is present. The gallbladder is unremarkable with no evidence of radiopaque gallstones, gallbladder wall thickening, or obvious pericholecystic inflammatory changes. PANCREAS: Unremarkable. SPLEEN: Unremarkable. ADRENAL GLANDS: Unremarkable. KIDNEYS AND URETERS: The kidneys are normal in size, shape, and attenuation. No hydronephrosis, hydroureter, or calculi seen. Exophytic left renal cysts, unchanged. Nonspecific bilateral perinephric stranding is unchanged. BLADDER: Unremarkable. GASTROINTESTINAL TRACT: Small, sliding hiatal hernia. Prominent sigmoid diverticulosis without evidence of acute diverticulitis. No bowel wall thickening or associated inflammatory change. No small or large bowel obstruction. Unremarkable appendix. PERITONEAL CAVITY: No intra-abdominal free air or free fluid. No intra-abdominal mass or organized fluid collection/abscess formation. ABDOMINAL WALL: No significant hernia is appreciated. LYMPH NODES: No significant lymphadenopathy. VASCULAR: No abdominal aortic dilatation. Atherosclerotic calcifications. Unremarkable IVC. PELVIC VISCERA: The prostate and seminal vesicles are unremarkable. OSSEOUS STRUCTURES: Chronic posterior left 9th and anterolateral left 8th rib fractures. No concerning lytic or blastic osseous lesion. 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 No evidence of cortical collapse. Findings are similar when compared to the prior examination. CT/CT abdomen pelvis wo con IMPRESSION: 1. Sigmoid diverticulosis without evidence of acute diverticulitis. No small or large bowel obstruction. Unremarkable appendix. Small, sliding hiatal hernia. 2. No intra-abdominal mass, lymphadenopathy, or ascites. 3. No hydronephrosis or nephrolithiasis. Prominent bilateral nonspecific perinephric stranding, unchanged.
[2020-08-24 16:08] VITALS: BP 144/85; PULSE 78; RESP 20; TEMP 36.4; O2SAT 94; BMI 36.6
--- NOTE | 2020-08-24 16:24 | ED_ITS ---
HPI - Abdominal Pain General Chief Complaint: Abdominal Pain Stated Complaint: abd pain Time Seen by Provider: 08/24/20 16:22 Source: patient Mode of arrival: ambulatory Limitations: no limitations History of Present Illness HPI narrative: Patient with history of diverticulosis COPD history of alcohol use diabetes and hypertension complaining of pain in her left lower abdomen for last 2 - 3days getting worse today associated with nausea and abdominal fullness. Patient had a CT scan done in 03/29 which showed diverticulosis . Patient denies any fever or chills no vomiting no diarrhea no blood in the stool no melena no history of kidney stone. Patient feel sharp deep pain which increases on ambulation does not feel hungry and did eat today feels bloated Related Data Home Medications Medication Instructions Recorded Confirmed albuterol sulfate 90 mcg/actuation 0 mcg INHALATION 06/03/20 06/03/20 aerosol inhaler aspirin 81 mg tablet,delayed 81 mg PO BEDTIME 06/03/20 06/03/20 release buspirone 5 mg tablet 5 mg PO 06/03/20 06/03/20 celecoxib 50 mg capsule 50 mg PO DAILY cap 06/03/20 06/03/20 fluticasone propionate 50 1 - 2 spray INTRANASAL DAILY PRN 06/03/20 06/03/20 mcg/actuation nasal spray,suspension folic acid 1 mg tablet 1 mg PO BEDTIME 06/03/20 06/03/20 furosemide 20 mg tablet 20 mg PO DAILY 06/03/20 06/03/20 gabapentin 300 mg capsule 300 mg PO DAILY cap 06/03/20 06/03/20 insulin aspart U-100 100 unit/mL 15 unit SUBCUT TID 06/03/20 06/03/20 subcutaneous solution insulin glargine 100 unit/mL 40 unit SUBCUT BEDTIME 06/03/20 06/03/20 subcutaneous solution lisinopril 10 mg tablet 10 mg PO QAM 06/03/20 06/03/20 multivitamin 1 tab PO QAM 06/03/20 06/03/20 omega-3 fatty acids-fish oil 340 1 cap PO QAM 06/03/20 06/03/20 mg-1,000 mg capsule omeprazole 20 mg capsule,delayed 20 mg PO QAM 06/03/20 06/03/20 release quetiapine 50 mg tablet 50 mg PO DAILY tab 06/03/20 06/03/20 simvastatin 20 mg tablet 20 mg PO BEDTIME 06/03/20 06/03/20 thiamine HCl (vitamin B1) 100 mg 100 mg PO DAILY 06/03/20 06/03/20 tablet Previous Rx's Medication Instructions Recorded cyclobenzaprine 10 mg PO TID PRN #15 tab 03/14/20 naproxen 500 mg PO BID PRN #20 tab 03/14/20 cefuroxime axetil 500 mg PO BID #20 tab 07/03/20 codeine-guaifenesin 5 ml PO Q6H PRN #120 ml 07/03/20 doxycycline hyclate 100 mg PO BID #20 cap 07/03/20 prednisone 40 mg PO DAILY #10 tab 07/03/20 tramadol 50 mg PO Q6H PRN #20 tab 07/03/20 dicyclomine 20 mg PO QID PRN #20 tab 08/24/20 Allergies Allergy/AdvReac Type Severity Reaction Status Date / Time ENVIRONMENTAL Allergy Mild SNEEZING, Uncoded 01/25/20 15:36 WATERY EYES Review of Systems Review of Systems Constitutional : No Weight loss, No Fever, No Chills ENT/Mouth : No sore throat, No Rhinorrhea Eyes: No Eye Pain, No Swelling Cardiovascular : No Chest Pain, no palpitations Respiratory : No Cough, No Sputum, no shortness of breath Gastrointestinal : ++ Nausea, No Vomiting, No Diarrhea, ++ abdominal Pain, no black stools Genitourinary : No Dysuria, No Urinary Frequency Musculoskeletal : No joint pain, No Myalgias, No Joint Swelling Skin : No Skin Lesions, No rash Neuro : No Weakness, No Numbness, No Dizziness, No Headache Psych : No Anxiety/Panic, No Depression Heme/Lymph: No Bruising, No Lymphadenopathy Endocrine : No Polyuria, No Polydipsia All other systems reviewed and are negative Physical Exam Vital Signs: Vital Signs: Last Vital Signs Temp 97.8 F 08/24/20 19:38 Pulse 86 08/24/20 19:58 Resp 18 08/24/20 19:58 BP 118/58 L 08/24/20 19:58 Pulse Ox 97 08/24/20 19:58 Body Mass Index 36.6 Appearance: Alert. Oriented X3. No acute distress. Eyes: Pupils equal, round and reactive to light. ENT: Pharynx normal. Neck: Normal inspection. Neck supple. CVS: Normal heart rate and rhythm. Pulses normal. Respiratory: No respiratory distress. Breath sounds normal. Abdomen: Soft and deep tenderness left lower quadrant with guarding no rebound tenderness , Bowel sounds are present, no mass palpable, no CVA tenderness Skin: Skin warm and dry. Normal skin color. Normal skin turgor. Extremities: No lower extremity edema. Neuro: Oriented X 3. No motor deficit. No sensory deficit. MDM - Abdominal Pain MDM Narrative Medical decision making narrative: Patient with left-sided abdominal pain been to the ER multiple times for similar in the past but says that this pain is worse than before had CT scan in the past which was negative today also CT scan is negative for any acute pathology white counts are normal chemistries normal urine is negative patient received 2 doses of morphine and oxycodone no vomiting noticed in the ER patient still refusing to go home able to drink water in the ER. At this time there is no rah sign for any acute pathology of abdominal pain likely somatic will discharge patient home on Bentyl advised to continue his medications Medical Records Attestation: I reviewed the patient's medical records. Lab Data Attestation: I reviewed the patient's lab results. Result diagrams: 08/24/20 17:18 08/24/20 17:18 Labs: Lab Results 08/24/20 08/24/20 08/24/20 Range/Units 17:18 17:18 17:18 WBC 8.8 (4.8-10.8) X10*3/uL RBC 5.05 (4.60-5.80) X10*6/uL Hgb 15.8 (14.0-18.0) g/dl Hct 47.9 (42-52) % MCV 94.9 (80-98) fL MCH 31.3 (27.0-33.0) pg MCHC 33.0 (31.0-36.0) g/dl RDW 14.5 (11.0-16.0) % Plt Count 225 (160-400) X10*3/uL MPV 8.9 L (9.4-12.4) fL Immature Gran % (Auto) 0.3 (0.0-0.4) % Neut % (Auto) 70.4 (45-73) % Lymph % (Auto) 14.0 L (20-40) % Hendricks % (Auto) 8.3 (2-11) % Eos % (Auto) 6.2 H (0-4) % Baso % (Auto) 0.8 (0-2) % Lymph # (Auto) 1.2 (1.2-4.9) X10*3/uL Hendricks # (Auto) 0.7 (0.1-1.2) X10*3/uL Eos # (Auto) 0.6 H (0.0-0.4) X10*3/uL Baso # (Auto) 0.1 (0.0-0.2) X10*3/uL Abs Immat Gran (auto) 0.03 (0.00-0.03) X10*3/uL Absolute Neuts (auto) 6.2 (2.0-8.3) X10*3/uL Absolute Nucleated RBC 0.000 (0.0-0.012) X10*3/uL Nucleated RBC % (auto) 0.0 (0.0-0.2) /100WBC Sodium 138 (135-145) mmol/L Potassium 4.1 (3.3-5.1) mmol/L Chloride 99 (96-108) mmol/L Carbon Dioxide 29 (22-29) mmol/L Anion Gap 14 (12-20) BUN 17 H (9-16) mg/dL Creatinine 1.26 (0.5-1.4) mg/dL Estim Creat Clear Calc 64.3 Estimated GFR 58 Random Glucose 106 D (60-115) mg/dL Calcium 9.1 (8.4-10.2) mg/dL Total Bilirubin 0.7 (0.0-1.0) mg/dL Direct Bilirubin 0.2 (0.0-0.5) mg/dL AST 17 (5-37) U/L ALT 15 (0-40) U/L Alkaline Phosphatase 109 (39-117) U/L Total Protein 7.3 (6.5-8.0) g/dL Albumin 4.5 (3.5-5.0) g/dL Lipase 22 (8-78) U/L Urine Color Urine Appearance Urine pH (5.0-8.0) Ur Specific [place] (1.005-1.025) Urine Protein (NEG-TRACE) MG/DL Urine Glucose (UA) (NEG) MG/DL Urine Ketones (NEG) MG/DL Urine Blood (NEG) Urine Nitrite (NEG) Ur Leukocyte Esterase (NEG) Urine RBC (0) /HPF Urine WBC (0-4) /HPF Ur Squamous Epith Cells /LPF Urine Bacteria /LPF 08/24/20 Range/Units 20:03 WBC (4.8-10.8) X10*3/uL RBC (4.60-5.80) X10*6/uL Hgb (14.0-18.0) g/dl Hct (42-52) % MCV (80-98) fL MCH (27.0-33.0) pg MCHC (31.0-36.0) g/dl RDW (11.0-16.0) % Plt Count (160-400) X10*3/uL MPV (9.4-12.4) fL Immature Gran % (Auto) (0.0-0.4) % Neut % (Auto) (45-73) % Lymph % (Auto) (20-40) % Hendricks % (Auto) (2-11) % Eos % (Auto) (0-4) % Baso % (Auto) (0-2) % Lymph # (Auto) (1.2-4.9) X10*3/uL Hendricks # (Auto) (0.1-1.2) X10*3/uL Eos # (Auto) (0.0-0.4) X10*3/uL Baso # (Auto) (0.0-0.2) X10*3/uL Abs Immat Gran (auto) (0.00-0.03) X10*3/uL Absolute Neuts (auto) (2.0-8.3) X10*3/uL Absolute Nucleated RBC (0.0-0.012) X10*3/uL Nucleated RBC % (auto) (0.0-0.2) /100WBC Sodium (135-145) mmol/L Potassium (3.3-5.1) mmol/L Chloride (96-108) mmol/L Carbon Dioxide (22-29) mmol/L Anion Gap (12-20) BUN (9-16) mg/dL Creatinine (0.5-1.4) mg/dL Estim Creat Clear Calc Estimated GFR Random Glucose (60-115) mg/dL Calcium (8.4-10.2) mg/dL Total Bilirubin (0.0-1.0) mg/dL Direct Bilirubin (0.0-0.5) mg/dL AST (5-37) U/L ALT (0-40) U/L Alkaline Phosphatase (39-117) U/L Total Protein (6.5-8.0) g/dL Albumin (3.5-5.0) g/dL Lipase (8-78) U/L Urine Color YELLOW Urine Appearance CLEAR Urine pH 6.0 (5.0-8.0) Ur Specific [place] 1.015 (1.005-1.025) Urine Protein NEG (NEG-TRACE) MG/DL Urine Glucose (UA) >=1000 H (NEG) MG/DL Urine Ketones NEG (NEG) MG/DL Urine Blood NEG (NEG) Urine Nitrite NEG (NEG) Ur Leukocyte Esterase NEG (NEG) Urine RBC 0-2 (0) /HPF Urine WBC 1-4 (0-4) /HPF Ur Squamous Epith Cells 4+ /LPF Urine Bacteria TRACE /LPF Discharge Plan Discharge Clinical Impression: Left sided abdominal pain of unknown cause Patient Disposition: Home, Self-Care Instructions: Abdominal Pain (ED) Additional Instructions: Etiology of your abdominal pain is not very clear, CT scan of abdomen and labs are normal, cause likely is functional. will give you Bentyl for pain advised to follow-up with PCP report to ER if gets worse Prescriptions: New dicyclomine 20 mg tablet 20 mg PO QID PRN (Reason: abdominal pain) Qty: 20 RF: 0 No Action naproxen 500 mg tablet 500 mg PO BID PRN (Reason: pain) Qty: 20 RF: 0 cyclobenzaprine 10 mg tablet 10 mg PO TID PRN (Reason: muscle spasm) Qty: 15 RF: 0 doxycycline hyclate 100 mg capsule 100 mg PO BID Qty: 20 RF: 0 cefuroxime axetil 500 mg tablet 500 mg PO BID Qty: 20 RF: 0 codeine-guaifenesin 10-100 mg/5 mL liquid 5 ml PO Q6H PRN (Reason: cough) Qty: 120 RF: 0 prednisone 20 mg tablet 40 mg PO DAILY Qty: 10 RF: 0 tramadol 50 mg tablet 50 mg PO Q6H PRN (Reason: pain) Qty: 20 RF: 0 albuterol sulfate 90 mcg/actuation HFA aerosol inhaler 0 mcg inhalation RF: 0 celecoxib 50 mg capsule 50 mg PO DAILY RF: 0 quetiapine 50 mg tablet 50 mg PO DAILY RF: 0 Fish Oil 340-1,000 mg capsule 1 cap PO QAM RF: 0 folic acid 1 mg tablet 1 mg PO BEDTIME RF: 0 omeprazole 20 mg capsule,delayed release(DR/EC) 20 mg PO QAM RF: 0 gabapentin 300 mg capsule 300 mg PO DAILY RF: 0 lisinopril 10 mg tablet 10 mg PO QAM RF: 0 simvastatin 20 mg tablet 20 mg PO BEDTIME RF: 0 aspirin 81 mg tablet,delayed release (DR/EC) 81 mg PO BEDTIME RF: 0 thiamine HCl (vitamin B1) 100 mg tablet 100 mg PO DAILY RF: 0 multivitamin Tablet 1 tab PO QAM RF: 0 insulin aspart U-100 100 unit/mL solution 15 unit subcut TID RF: 0 Lantus U-100 Insulin 100 unit/mL solution 40 unit subcut BEDTIME RF: 0 buspirone 5 mg tablet 5 mg PO RF: 0 fluticasone propionate 50 mcg/actuation spray,suspension 1 - 2 spray intranasal DAILY PRNRF: 0 furosemide [Lasix] 20 mg tablet 20 mg PO DAILY RF: 0 PMFSH Past Medical History Medical History Alcohol abuse COPD (chronic obstructive pulmonary disease) Diabetes mellitus type 1 Diastolic dysfunction Diastolic heart failure HLD (hyperlipidemia) Hypertension Nonrheumatic aortic (valve) stenosis Obesity Family History Family History Father Diabetes Mother Diabetes Social History Social History Alcohol intake: former Smoking Status: Former smoker Use of substances other than those prescribed or required for medical reasons: No Advance Directives: No Advance Directives Information Provided: Yes
[2020-08-24 17:22] LABS: MANUAL DIFF FLAG NO
[2020-08-24 17:23] LABS: Basophils Absolute Auto 0.1 X10*3/uL (0.0-0.2); Basophils Percent Auto 0.8 % (0-2); Eosinophils Absolute Auto 0.6 X10*3/uL (0.0-0.4); Eosinophils Percent Auto 6.2 % (0-4); Hematocrit 47.9 % (42-52); Hemoglobin 15.8 g/dl (14.0-18.0); Imm Gran Abs Auto 0.03 X10*3/uL (0.00-0.03); Imm Gran Pct Auto 0.3 % (0.0-0.4); Lymphocytes Absolute Auto 1.2 X10*3/uL (1.2-4.9); Mean Corpuscular Hemoglobin 31.3 pg (27.0-33.0); Mean Corpuscular Volume 94.9 fL (80-98); Mean Platelet Volume 8.9 fL (9.4-12.4); Monocytes Absolute Auto 0.7 X10*3/uL (0.1-1.2); Monocytes Percent Auto 8.3 % (2-11); Neutrophils Absolute Auto 6.2 X10*3/uL (2.0-8.3); Neutrophils Percent Auto 70.4 % (45-73); Platelet Count 225 X10*3/uL (160-400); Red Blood Count 5.05 X10*6/uL (4.60-5.80); Red Cell Distribution Width 14.5 % (11.0-16.0); White Blood Count 8.8 X10*3/uL (4.8-10.8)
[2020-08-24] MEDS: ondansetron HCL 4 MG/2 ML VIAL IVPUSH (17:28)
[2020-08-24] MEDS: Morphine Sulfate 4 MG/ML CARTRIDGE IVPUSH ×2 (17:28→18:08)
[2020-08-24] MEDS: 0.9 % Sodium Chloride 1,000 ML 999 ML IVCONT (17:28)
[2020-08-24 17:47] LABS: Anion Gap 14 (12-20); Blood Urea Nitrogen 17 mg/dL (9-16); Calcium 9.1 mg/dL (8.4-10.2); Carbon Dioxide 29 mmol/L (22-29); Chloride 99 mmol/L (96-108); Creatinine Clr Calc Pharmacy 64.3; Estimated Glomerular Filt Rate 58; Glucose Random 106 mg/dL (60-115); Potassium 4.1 mmol/L (3.3-5.1); Sodium 138 mmol/L (135-145)
[2020-08-24 17:50] LABS: Alanine Aminotransferase 15 U/L (0-40); Albumin Level 4.5 g/dL (3.5-5.0); Alkaline Phosphatase 109 U/L (39-117); Aspartate Amino Transferase 17 U/L (5-37); Bilirubin Direct 0.2 mg/dL (0.0-0.5); Bilirubin Total 0.7 mg/dL (0.0-1.0); Lipase 22 U/L (8-78); Total Protein 7.3 g/dL (6.5-8.0)
[2020-08-24 18:00] VITALS: BP 124/52; PULSE 82; RESP 20; TEMP 36.6; O2SAT 94
[2020-08-24 19:38] VITALS: BP 108/68; PULSE 80; RESP 20; TEMP 36.6; O2SAT 93
[2020-08-24 19:58] VITALS: BP 118/58; PULSE 86; RESP 18; O2SAT 97
[2020-08-24 20:13] LABS: Glucose Urine UA >=1000 MG/DL (NEG); Leukocyte Esterase Urine NEG (NEG); Nitrite Urine NEG (NEG); Specific Gravity - Urine 1.015 (1.005-1.025); Urine Blood NEG (NEG); Urine Ketones NEG (NEG); Urine Protein NEG (NEG-TRACE)
[2020-08-24 20:16] LABS: Appearance Urine CLEAR; Color Urine YELLOW
[2020-08-24 20:26] LABS: Bacteria Urine TRACE /LPF; RBC Urine 0-2 /HPF (0); Squamous Epithelial Cell Urine 4+ /LPF
[2020-08-24] MEDS: oxyCODONE HCl Immed Release 5 MG TABLET 10 MG PO (20:39)
== END 2020-08-24 21:42 | disposition home or self-care (01) ==
PROVIDERS: Emergency Provider Internal Medicine; PCP Internal Medicine Geriatric Medicine
DX: R10.32 Left lower quadrant pain (principal); J44.9 Chronic obstructive pulmonary disease, unspecified; E11.9 Type 2 diabetes mellitus without complications; I10 Essential (primary) hypertension; Z79.899 Other long term (current) drug therapy; Z79.4 Long term (current) use of insulin
CPT/HCPCS: 36415; 74176; 80048; 80076; 81001; 83690; 85025; 96365; 96375; 96376; 99284; J2270; J2405

== ENCOUNTER 2020-09-26 16:59 | Emergency (ER) | payer OTHER, SELFPAY ==
--- NOTE | ~2020-09-26 | XR_ITS ---
EXAMINATION: XR CHEST CLINICAL INFORMATION: Shortness of breath COMPARISON: Chest x-ray 07/03/2020 TECHNIQUE: Frontal view of the chest was obtained. FINDINGS: Cardiac silhouette is normal in size. Atherosclerotic disease of the aortic arch. The lungs are well aerated. There is no lobar consolidation. No pleural effusion or pneumothorax. Partially visualized right shoulder prosthesis. XR/XR chest 1V IMPRESSION: No acute pulmonary pathology.
[2020-09-26 17:07] VITALS: BP 146/87; BP 87/60; PULSE 88; RESP 24; TEMP 36.7; O2SAT 96; O2SAT 98; BMI 36.6
[2020-09-26 17:21] VITALS: BP 111/51; PULSE 89; RESP 22; O2SAT 94
--- NOTE | 2020-09-26 17:29 | ECG_ITS ---
Test Reason : DYSPNEA Blood Pressure : / mmHG Vent. Rate : 089 BPM Atrial Rate : 089 BPM P-R Int : 156 ms QRS Dur : 080 ms QT Int : 342 ms P-R-T Axes : 063 -09 079 degrees QTc Int : 416 ms Normal sinus rhythm Normal ECG When compared with ECG of 03-JUL-2020 05:55, Questionable change in QRS axis Referred By: Luda Georges Electronically Signed By:HERMAN TONEY MD
--- NOTE | 2020-09-26 17:34 | ED_ITS ---
HPI - SOB/Dyspnea General Chief Complaint: Dyspnea Stated Complaint: DIFF BREATHING Time Seen by Provider: 09/26/20 17:22 Source: patient Mode of arrival: ambulatory Limitations: no limitations History of Present Illness HPI Narrative: 64-year-old male with a past medical history of alcohol abuse, COPD, obstructive sleep apnea, diabetes, congestive heart failure, hyperlipidemia, hypertension, moderate aortic stenosis, obesity here with complaints of shortness of breath for the last 2 days with dry cough. No chest pain, fevers, chills, leg swelling or pain. Pain is worsened with any activity and with lying flat. No weight gain. Fully vaccinated for COVID Related Data Home Medications Medication Instructions Recorded Confirmed aspirin 81 mg tablet,delayed 81 mg PO BEDTIME 06/03/20 09/26/20 release buspirone 5 mg tablet 5 mg PO BID 06/03/20 09/26/20 celecoxib 50 mg capsule 50 mg PO DAILY cap 06/03/20 09/26/20 fluticasone propionate 50 1 - 2 spray INTRANASAL DAILY PRN 06/03/20 09/26/20 mcg/actuation nasal spray,suspension folic acid 1 mg tablet 1 mg PO BEDTIME 06/03/20 09/26/20 insulin aspart U-100 100 unit/mL See Rx Instructions .ROUTE .COMPLEX 06/03/20 09/26/20 subcutaneous solution insulin glargine 100 unit/mL 45 unit SUBCUT BEDTIME 06/03/20 09/26/20 subcutaneous solution lisinopril 10 mg tablet 10 mg PO QAM 06/03/20 09/26/20 multivitamin 1 tab PO QAM 06/03/20 09/26/20 omega-3 fatty acids-fish oil 340 1 cap PO QAM 06/03/20 09/26/20 mg-1,000 mg capsule omeprazole 20 mg capsule,delayed 20 mg PO QAM 06/03/20 09/26/20 release simvastatin 20 mg tablet 20 mg PO BEDTIME 06/03/20 09/26/20 thiamine HCl (vitamin B1) 100 mg 100 mg PO DAILY 06/03/20 09/26/20 tablet albuterol sulfate 1 amp INHALATION QID 09/26/20 09/26/20 albuterol sulfate 2 puff PO Q4-6H PRN 09/26/20 09/26/20 empagliflozin [Jardiance] 1 tab PO QAM 09/26/20 09/26/20 fluticasone propion-salmeterol 1 inh INHALATION BID 09/26/20 09/26/20 [Advair Diskus] gabapentin 2 cap PO BID 09/26/20 09/26/20 loteprednol etabonate 1 drp OPHTHALMIC (EYE) TID 09/26/20 09/26/20 Previous Rx's Medication Instructions Recorded azithromycin 250 mg PO DAILY 5 Days #5 tab 09/26/20 prednisone 40 mg PO DAILY #8 tab 09/26/20 Allergies Allergy/AdvReac Type Severity Reaction Status Date / Time ENVIRONMENTAL Allergy Mild SNEEZING, Uncoded 09/26/20 17:14 WATERY EYES Review of Systems Review of Systems: Yes all other systems are reviewed and are negative Constitutional: Constitutional: Reports no additional constitutional complaints, Denies body ache(s), Denies chills, Denies fever(s), Denies headache(s) and Denies weakness Eyes: Eyes: Reports no additional eye complaints and Denies change in vision ENT: Reports system reviewed and no additional complaints, except as docume nted, Denies dizziness, Denies headache(s), Denies nasal congestion, Denies nasal discharge and Denies neck pain Cardiovascular: Cardiovascular: Reports no additional cardiovascular complaints, Denies chest pain, Denies leg edema and Reports dyspnea Respiratory: Respiratory: Reports no additional respiratory complaints, Reports cough and Reports dyspnea Gastrointestinal: Gastrointestinal: Reports no additional gastrointestinal complaints, Denies abdominal pain, Denies diarrhea, Denies nausea and Denies vomiting Genitourinary: Genitourinary: Denies urinary incontinence Musculoskeletal: Musculoskeletal: Reports no additional musculoskeletal complaints, Denies back pain, Denies arthralgias, Denies joint swelling, Denies neck pain, Denies numbness and Denies tingling Integumentary/Breasts: Skin/Breast: Reports system reviewed and no additional complaints, except as docu and Denies rash Neurologic: Reports system reviewed and no additional complaints, except as documented, Denies Abnormal speech present, Denies dizziness, Denies headache(s), Denies numbness, Denies tingling and Denies weakness PMFSH Past Medical History Attestation statement: The following information was validated with the patient. Source: old records reviewed and nursing notes reviewed Medical History Alcohol abuse COPD (chronic obstructive pulmonary disease) Diabetes mellitus type 1 Diastolic dysfunction Diastolic heart failure HLD (hyperlipidemia) Hypertension Nonrheumatic aortic (valve) stenosis Obesity Family History Family History Father Diabetes Mother Diabetes Social History Social History Alcohol intake: former Smoking Status: Former smoker Use of substances other than those prescribed or required for medical reasons: No Advance Directives: Yes Advance Directives Information Provided: No Advance Directives on File: No Physical Exam Vital Signs: Vital Signs: Last Vital Signs Temp 98.1 F 09/26/20 17:07 Pulse 82 09/26/20 19:06 Resp 20 09/26/20 19:06 BP 113/61 09/26/20 19:06 Pulse Ox 95 09/26/20 19:06 Oxygen Flow Rate 2 09/26/20 17:07 Body Mass Index 36.6 Const: General: cooperative, healthy appearing, comfortable and no acute distress Orientation/consciousness: patient oriented x3 Limitations: no l imitations HENMT: Head: Yes normal to inspection Ears: hearing grossly normal bilaterally General nose exam: Normal external nose present Face and sinus: Yes normal facial exam Mouth: Normal oral and palatal mucosa present Throat: Yes posterior oropharynx normal Eyes: General: appearance normal, both eyes and all related structures Pupils: Equal, round and reactive pupils present Neck: Neck: Yes normal visual inspection Chest: Chest palpation & inspection: normal inspection of the chest Resp: Other: Mild expiratory wheezing bilaterally, diminished breath sounds, speaking in short phrases Cardio: Rate: regular rate Rhythm: regular rhythm Peripheral pulses: Peripheral pulses 2+ throughout GI: Inspection: Yes normal to inspection Palpation (GI): Soft to palpation and nontender Auscultation: normal bowel sounds Back/Spine/Pelvis: Thoracic/Lumbar Spine: thoracic and lumbar spine normal to inspection Skin: General skin exam: no rashes or lesions noted Neuro: General: patient oriented x3, no focal motor deficits and normal sensation to monofilament Cranial nerves: Yes Equal, round and reactive pupils present Cognition (Neuro): normal cognition Speech: No Abnormal speech present Gait exam (Neuro): Normal gait present Motor exam (neuro): 5/5 motor strength present throughout Extrem: General: Yes normal to inspection, Yes no pedal edema and Yes no calf tenderness Course Course Course Narrative: 64-year-old male here with shortness of breath and dry cough for several days. On arrival he has stable saturations. Initial blood pressure low low but immediate repeat improved without any intervention. Question false reading. Mild expiratory wheezing bilaterally with some mild tachypnea. This is from chronic lung disease and not infection. Will need x-ray, EKG, labs, COVID screen. 1900-labs are pending. Chest x-ray shows no acute finding. COVID screen is negative. Likely COPD exacerbation. If labs unremarkable will need ambulation trial with pulse ox. 1905-mildly elevated troponin. Will need repeat 3 hour troponin. Patient ambulated approximately 10-15 steps. He did have some mild tachypnea and felt weak but there was no hypoxia and he improved with rest. He tells me he lives alone and feels very weak and does not feel safe going home. +anxious and ?component to dyspnea. Will place physical therapy consult, case management consult. May benefit from STR. 2100-patient now tells me he does not want to go to rehab and wants to go home. He is declining the repeat troponin. Patient will sign out against medical advice. Alert and oriented. On discharge stable saturations on room air. Reviewed worrisome signs and symptoms and recommended to return at any time. MDM - SOB/Dyspnea MDM Narrative Medical decision making narrative: COPD exacerbation, pneumonia, PE, viral syndrome Likely pneumonia with negative chest x-ray and no productive cough for reports of fever Less likely PE with no clinical signs or symptoms of a DVT, no tachycardia. Medical Records Attestation: I reviewed the patient's medical records. Lab Data Attestation: I reviewed the patient's lab results. Result diagrams: 09/26/20 18:57 09/26/20 17:39 Labs: Lab Results 09/26/20 09/26/20 09/26/20 Range/Units 17:39 17:39 17:40 WBC (4.8-10.8) X10*3/uL RBC (4.60-5.80) X10*6/uL Hgb (14.0-18.0) g/dl Hct (42-52) % MCV (80-98) fL MCH (27.0-33.0) pg MCHC (31.0-36.0) g/dl RDW (11.0-16.0) % Plt Count (160-400) X10*3/uL MPV (9.4-12.4) fL Immature Gran % (Auto) (0.0-0.4) % Neut % (Auto) (45-73) % Lymph % (Auto) (20-40) % Emery % (Auto) (2-11) % Eos % (Auto) (0-4) % Baso % (Auto) (0-2) % Lymph # (Auto) (1.2-4.9) X10*3/uL Emery # (Auto) (0.1-1.2) X10*3/uL Eos # (Auto) (0.0-0.4) X10*3/uL Baso # (Auto) (0.0-0.2) X10*3/uL Abs Immat Gran (auto) (0.00-0.03) X10*3/uL Absolute Neuts (auto) (2.0-8.3) X10*3/uL Absolute Nucleated RBC (0.0-0.012) X10*3/uL Nucleated RBC % (auto) (0.0-0.2) /100WBC PT 13.1 H (10.8-13.0) SEC INR 1.1 (0.9-1.1) Sodium 132 L (135-145) mmol/L Potassium 3.8 (3.3-5.1) mmol/L Chloride 95 L (96-108) mmol/L Carbon Dioxide 26 (22-29) mmol/L Anion Gap 15 (12-20) BUN 20 H (9-16) mg/dL Creatinine 1.11 (0.5-1.4) mg/dL Estim Creat Clear Calc 80.6 Estimated GFR > 60 Random Glucose 209 H D (60-115) mg/dL Lactic Acid (0.5-2.0) mmol/L Calcium 9.0 (8.4-10.2) mg/dL Magnesium (1.6-2.6) mg/dL Total Bilirubin 0.4 (0.0-1.0) mg/dL Direct Bilirubin < 0.2 (0.0-0.5) mg/dL AST 18 (5-37) U/L ALT 16 (0-40) U/L Alkaline Phosphatase 88 (39-117) U/L Troponin I High Sens 7.0 (<3.5-35.0) ng/L B-Natriuretic Peptide 17 (<100) pg/mL Total Protein 6.7 (6.5-8.0) g/dL Albumin 4.2 (3.5-5.0) g/dL COVID-19 (ELIER) (Negative) COVID-19 Clin Com 09/26/20 09/26/20 09/26/20 Range/Units 18:32 18:57 18:57 WBC 9.9 (4.8-10.8) X10*3/uL RBC 5.01 (4.60-5.80) X10*6/uL Hgb 15.7 (14.0-18.0) g/dl Hct 46.4 (42-52) % MCV 92.6 (80-98) fL MCH 31.3 (27.0-33.0) pg MCHC 33.8 (31.0-36.0) g/dl RDW 13.4 (11.0-16.0) % Plt Count 227 (160-400) X10*3/uL MPV 9.0 L (9.4-12.4) fL Immature Gran % (Auto) 0.2 (0.0-0.4) % Neut % (Auto) 65.8 (45-73) % Lymph % (Auto) 21.9 (20-40) % Emery % (Auto) 7.3 (2-11) % Eos % (Auto) 4.1 H (0-4) % Baso % (Auto) 0.7 (0-2) % Lymph # (Auto) 2.2 (1.2-4.9) X10*3/uL Emery # (Auto) 0.7 (0.1-1.2) X10*3/uL Eos # (Auto) 0.4 (0.0-0.4) X10*3/uL Baso # (Auto) 0.1 (0.0-0.2) X10*3/uL Abs Immat Gran (auto) 0.02 (0.00-0.03) X10*3/uL Absolute Neuts (auto) 6.5 (2.0-8.3) X10*3/uL Absolute Nucleated RBC 0.000 (0.0-0.012) X10*3/uL Nucleated RBC % (auto) 0.0 (0.0-0.2) /100WBC PT (10.8-13.0) SEC INR (0.9-1.1) Sodium (135-145) mmol/L Potassium (3.3-5.1) mmol/L Chloride (96-108) mmol/L Carbon Dioxide (22-29) mmol/L Anion Gap (12-20) BUN (9-16) mg/dL Creatinine (0.5-1.4) mg/dL Estim Creat Clear Calc Estimated GFR Random Glucose (60-115) mg/dL Lactic Acid 1.2 (0.5-2.0) mmol/L Calcium (8.4-10.2) mg/dL Magnesium (1.6-2.6) mg/dL Total Bilirubin (0.0-1.0) mg/dL Direct Bilirubin (0.0-0.5) mg/dL AST (5-37) U/L ALT (0-40) U/L Alkaline Phosphatase (39-117) U/L Troponin I High Sens (<3.5-35.0) ng/L B-Natriuretic Peptide (<100) pg/mL Total Protein (6.5-8.0) g/dL Albumin (3.5-5.0) g/dL COVID-19 (ELIER) Negative (Negative) COVID-19 Clin Com See Note 09/26/20 Range/Units 18:57 WBC (4.8-10.8) X10*3/uL RBC (4.60-5.80) X10*6/uL Hgb (14.0-18.0) g/dl Hct (42-52) % MCV (80-98) fL MCH (27.0-33.0) pg MCHC (31.0-36.0) g/dl RDW (11.0-16.0) % Plt Count (160-400) X10*3/uL MPV (9.4-12.4) fL Immature Gran % (Auto) (0.0-0.4) % Neut % (Auto) (45-73) % Lymph % (Auto) (20-40) % Emery % (Auto) (2-11) % Eos % (Auto) (0-4) % Baso % (Auto) (0-2) % Lymph # (Auto) (1.2-4.9) X10*3/uL Emery # (Auto) (0.1-1.2) X10*3/uL Eos # (Auto) (0.0-0.4) X10*3/uL Baso # (Auto) (0.0-0.2) X10*3/uL Abs Immat Gran (auto) (0.00-0.03) X10*3/uL Absolute Neuts (auto) (2.0-8.3) X10*3/uL Absolute Nucleated RBC (0.0-0.012) X10*3/uL Nucleated RBC % (auto) (0.0-0.2) /100WBC PT (10.8-13.0) SEC INR (0.9-1.1) Sodium (135-145) mmol/L Potassium (3.3-5.1) mmol/L Chloride (96-108) mmol/L Carbon Dioxide (22-29) mmol/L Anion Gap (12-20) BUN (9-16) mg/dL Creatinine (0.5-1.4) mg/dL Estim Creat Clear Calc Estimated GFR Random Glucose (60-115) mg/dL Lactic Acid (0.5-2.0) mmol/L Calcium (8.4-10.2) mg/dL Magnesium 1.6 (1.6-2.6) mg/dL Total Bilirubin (0.0-1.0) mg/dL Direct Bilirubin (0.0-0.5) mg/dL AST (5-37) U/L ALT (0-40) U/L Alkaline Phosphatase (39-117) U/L Troponin I High Sens (<3.5-35.0) ng/L B-Natriuretic Peptide (<100) pg/mL Total Protein (6.5-8.0) g/dL Albumin (3.5-5.0) g/dL COVID-19 (ELIER) (Negative) COVID-19 Clin Com ECG Data Attestation: I personally reviewed and interpreted this ECG as follows: ECG interpretation date: 09/26/20 ECG interpretation time: 17:56 Interpretation: Normal sinus rhythm with a rate of 89, normal MO, normal QRS, normal QTC Discharge Plan Discharge Clinical Impression: COPD (chronic obstructive pulmonary disease) Patient Disposition: Left Against Medical Advice Instructions: COPD (Chronic Obstructive Pulmonary Disease) (ED), Against Medical Advice (ED) Additional Instructions: You were offered placement in a short term rehab but you declined this. Feel free to return at any time. It was also recommended you get a repeat troponin Start prednisone and azithromycin tomorrow. Prescriptions: New prednisone 20 mg tablet 40 mg PO DAILY Qty: 8 RF: 0 azithromycin 250 mg tablet 250 mg PO DAILY 5 Days Qty: 5 RF: 0 No Action loteprednol etabonate 0.5 % drops,suspension 1 drp ophthalmic (eye) TID RF: 0 albuterol sulfate 90 mcg/actuation HFA aerosol inhaler 2 puff PO Q4-6H PRN (Reason: dyspnea) RF: 0 albuterol sulfate 2.5 mg /3 mL (0.083 %) solution for nebulization 1 amp inhalation QID RF: 0 gabapentin 300 mg capsule 2 cap PO BID RF: 0 Jardiance 10 mg tablet 1 tab PO QAM RF: 0 fluticasone propion-salmeterol [Advair Diskus] 250-50 mcg/dose Blister With Device 1 inh INHALATION BID RF: 0 celecoxib 50 mg capsule 50 mg PO DAILY RF: 0 Fish Oil 340-1,000 mg capsule 1 cap PO QAM RF: 0 folic acid 1 mg tablet 1 mg PO BEDTIME RF: 0 omeprazole 20 mg capsule,delayed release(DR/EC) 20 mg PO QAM RF: 0 lisinopril 10 mg tablet 10 mg PO QAM RF: 0 simvastatin 20 mg tablet 20 mg PO BEDTIME RF: 0 aspirin 81 mg tablet,delayed release (DR/EC) 81 mg PO BEDTIME RF: 0 thiamine HCl (vitamin B1) 100 mg tablet 100 mg PO DAILY RF: 0 multivitamin Tablet 1 tab PO QAM RF: 0 insulin aspart U-100 100 unit/mL solution See Rx Instructions .ROUTE .COMPLEX RF: 0 Lantus U-100 Insulin 100 unit/mL solution 45 unit subcut BEDTIME RF: 0 buspirone 5 mg tablet 5 mg PO BID RF: 0 fluticasone propionate 50 mcg/actuation spray,suspension 1 - 2 spray intranasal DAILY PRN (Reason: Allergy Symptoms) RF: 0 Referrals: Name,MD Jaylen [Primary Care Provider] - 2 days Stand Alone Forms: Against Medical Advice
[2020-09-26 17:56] LABS: INTERNATIONAL NORM RATIO 1.1 (0.9-1.1); Prothrombin Time 13.1 SEC (10.8-13.0)
[2020-09-26] MEDS: Albuterol/Iprat 2.5/0.5MG 3 ML AMPUL.NEB INHALE (18:06)
[2020-09-26 18:07] VITALS: PULSE 83; O2SAT 98
[2020-09-26] MEDS: methylPREDNISolone Sod Succ 125 MG/2 ML VIAL IVPUSH (18:10)
[2020-09-26 18:28] LABS: Alanine Aminotransferase 16 U/L (0-40); Albumin Level 4.2 g/dL (3.5-5.0); Alkaline Phosphatase 88 U/L (39-117); Anion Gap 15 (12-20); Aspartate Amino Transferase 18 U/L (5-37); Bilirubin Direct < 0.2 mg/dL (0.0-0.5); Bilirubin Total 0.4 mg/dL (0.0-1.0); Blood Urea Nitrogen 20 mg/dL (9-16); Carbon Dioxide 26 mmol/L (22-29); Chloride 95 mmol/L (96-108); Creatinine Clr Calc Pharmacy 80.6; Estimated Glomerular Filt Rate > 60; Glucose Random 209 mg/dL (60-115); Potassium 3.8 mmol/L (3.3-5.1); Sodium 132 mmol/L (135-145); Total Protein 6.7 g/dL (6.5-8.0)
[2020-09-26 18:32] LABS: B Type Natriuretic Peptide 17 pg/mL (<100)
[2020-09-26 18:57] LABS: COVID-19 Test Negative (Negative)
[2020-09-26 19:03] LABS: MANUAL DIFF FLAG NO
[2020-09-26 19:04] LABS: Basophils Absolute Auto 0.1 X10*3/uL (0.0-0.2); Basophils Percent Auto 0.7 % (0-2); Eosinophils Absolute Auto 0.4 X10*3/uL (0.0-0.4); Eosinophils Percent Auto 4.1 % (0-4); Hematocrit 46.4 % (42-52); Hemoglobin 15.7 g/dl (14.0-18.0); Imm Gran Abs Auto 0.02 X10*3/uL (0.00-0.03); Imm Gran Pct Auto 0.2 % (0.0-0.4); Lymphocytes Absolute Auto 2.2 X10*3/uL (1.2-4.9); Lymphocytes Percent Auto 21.9 % (20-40); Mean Corpuscular HGB Conc 33.8 g/dl (31.0-36.0); Mean Corpuscular Hemoglobin 31.3 pg (27.0-33.0); Mean Corpuscular Volume 92.6 fL (80-98); Monocytes Absolute Auto 0.7 X10*3/uL (0.1-1.2); Monocytes Percent Auto 7.3 % (2-11); Neutrophils Absolute Auto 6.5 X10*3/uL (2.0-8.3); Neutrophils Percent Auto 65.8 % (45-73); Platelet Count 227 X10*3/uL (160-400); Red Blood Count 5.01 X10*6/uL (4.60-5.80); Red Cell Distribution Width 13.4 % (11.0-16.0); White Blood Count 9.9 X10*3/uL (4.8-10.8)
[2020-09-26 19:06] VITALS: BP 113/61; PULSE 82; RESP 20; O2SAT 95
[2020-09-26 19:24] LABS: Lactic Acid 1.2 mmol/L (0.5-2.0)
[2020-09-26 19:28] LABS: Magnesium 1.6 mg/dL (1.6-2.6)
--- NOTE | 2020-09-26 20:00 | PC.NURSE ---
This RN ambulated with patient from room 3 to room 1 in ED. Patients gait is steady but states that he is hyperventilating, feeling dizzy, and worried that he would fall, slow deep breaths encouraged, O2 sats 92-94% on room air while ambulating. Luda OSEI aware.
[2020-09-26] MEDS: Azithromycin 500 MG TABLET PO (20:06)
--- NOTE | 2020-09-26 20:51 | PC.NURSE ---
PT WANTS TO LEAVE AMA, ENVIRONMENTAL ENGINEERING ASSISTANT NOTIFIED. REFUSED REPEAT TROPONIN, REFUSING STR.
== END 2020-09-26 21:06 | disposition left against medical advice (07) ==
PROVIDERS: Nurse Practitioner Family; Emergency Provider Emergency Medicine; PCP Internal Medicine Geriatric Medicine
DX: J44.9 Chronic obstructive pulmonary disease, unspecified (principal); Z20.822 Contact with and (suspected) exposure to COVID-19; I11.0 Hypertensive heart disease with heart failure; I50.9 Heart failure, unspecified; E11.9 Type 2 diabetes mellitus without complications; E78.5 Hyperlipidemia, unspecified; F10.10 Alcohol abuse, uncomplicated; Z79.4 Long term (current) use of insulin; Z79.82 Long term (current) use of aspirin; Z79.899 Other long term (current) drug therapy; Z79.02 Long term (current) use of antithrombotics/antiplatelets; Z87.891 Personal history of nicotine dependence
CPT/HCPCS: 36415; 71045; 80048; 80076; 83605; 83735; 83880; 84484; 85025; 85610; 87040; 87635; 93005; 94640; 96374; 99285; J2930

== ENCOUNTER 2020-09-27 15:42 | Inpatient (IN) | payer OTHER, SELFPAY ==
--- NOTE | ~2020-09-27 | US_ITS ---
EXAMINATION: US VENOUS WITH DOPPLER UPPER EXTREMITY, RIGHT CLINICAL INFORMATION: Swelling and pain COMPARISON: None TECHNIQUE: Ultrasound of the upper extremity is performed using compression sonography and color and pulse Doppler flow with assessment of augmentation of flow. There is also imaging and Doppler assessment of the jugular and subclavian veins. Spectral analysis with color-flow imaging is performed. FINDINGS: Respiratory variation, normal compression, and augmented flow are noted throughout the upper extremity including the axillary, brachial, cubital, and radial and ulnar veins. There is normal flow in the internal jugular and subclavian veins. There is no visible deep or superficial thrombophlebitis. If the patient's symptoms progress, a followup ultrasound in 5 -7 days might be of value to exclude proximal propagation from a nonvisualized distal arm vein. US/US venous duplex UE RT IMPRESSION: No DVT demonstrated in right upper extremity
--- NOTE | ~2020-09-27 | XR_ITS ---
EXAMINATION: XR CHEST CLINICAL INFORMATION: Shortness of breath COMPARISON: Previous chest x-ray most recent from yesterday TECHNIQUE: Frontal view of the chest was obtained. FINDINGS: The cardiac and mediastinal contours are stable. The lungs are clear. There is no pleural effusion or pneumothorax. There is a right shoulder prosthesis. XR/XR chest 1V IMPRESSION: No evidence for acute disease in the chest.
[2020-09-27 15:58] VITALS: BP 111/54; BP 170/110; PULSE 101; PULSE 102; RESP 20; TEMP 36.8; O2SAT 94; O2SAT 96; BMI 34.9
--- NOTE | 2020-09-27 15:59 | ECG_ITS ---
Test Reason : DYSPNEA Blood Pressure : / mmHG Vent. Rate : 087 BPM Atrial Rate : 087 BPM P-R Int : 166 ms QRS Dur : 070 ms QT Int : 346 ms P-R-T Axes : 056 002 072 degrees QTc Int : 416 ms Normal sinus rhythm Normal ECG When compared with ECG of 26-SEP-2020 17:56, No significant change was found Referred By: Emily Keller Electronically Signed By:HERMAN TONEY MD
--- NOTE | 2020-09-27 16:17 | ED_ITS ---
HPI - SOB/Dyspnea General Chief Complaint: Dyspnea Stated Complaint: diff breathing Time Seen by Provider: 09/27/20 15:59 Source: patient and EMS Mode of arrival: EMS Limitations: no limitations History of Present Illness HPI Narrative: 64 y/o male with history of COPD on nocturnal oxygen, diabets, aortic stenosis, HFpEF, ETOH abuse, HTN who presents to the ER from home via EMS with worsening SOB, wheezing and coughing. He reports a coughing fit so severe this afternoon that he got lightheaded, dizzy and fell to the floor. He lowered himself to his knees and did not lose consciousness. No injuries. He was seen here last night for SOB - STR was suggested and patient ended up leaving AMA. On EMS arrival patient was hypoxic to 88%, he was placed on 2L NC. He reports using all of his inhalers and even his nebulizer machine without improvement in his breathing. He states he feels like his chest is congested but he is not bringing up any phlegm. He has not taken his temperature at home but he has been sweating and feeling hot. He has had some chest pain and epigastric pain when he coughs. It does not radiate. MD elicited complaint: shortness of breath and cough Pertinent past history: COPD Onset (ago): week(s) Timing: constant Severity: severe Exacerbating factors: lying flat, exertion, movement and coughing Relieving factors: oxygen, rest, bronchodilators and medication Associated symptoms: chest pain, cough, wheezing, nausea/vomiting, abdominal pain, chest congestion and lightheadedness Treatment prior to arrival: oxygen Related Data Home oxygen amount: as needed at night Home Medications Medication Instructions Recorded Confirmed aspirin 81 mg tablet,delayed 81 mg PO BEDTIME 06/03/20 09/27/20 release buspirone 5 mg tablet 5 mg PO BID 06/03/20 09/27/20 celecoxib 50 mg capsule 50 mg PO BID cap 06/03/20 09/27/20 fluticasone propionate 50 1 - 2 spray INTRANASAL DAILY PRN 06/03/20 09/27/20 mcg/actuation nasal spray,suspension folic acid 1 mg tablet 1 mg PO DAILY@1800 06/03/20 09/27/20 insulin aspart U-100 100 unit/mL See Rx Instructions .ROUTE .COMPLEX 06/03/20 09/27/20 subcutaneous solution insulin glargine 100 unit/mL 45 unit SUBCUT BEDTIME 06/03/20 09/27/20 subcutaneous solution lisinopril 10 mg tablet 10 mg PO QAM 06/03/20 09/27/20 multivitamin 1 tab PO QAM 06/03/20 09/27/20 omega-3 fatty acids-fish oil 340 1 cap PO QAM 06/03/20 09/27/20 mg-1,000 mg capsule omeprazole 20 mg capsule,delayed 20 mg PO QAM 06/03/20 09/27/20 release simvastatin 20 mg tablet 20 mg PO BEDTIME 06/03/20 09/27/20 thiamine HCl (vitamin B1) 100 mg 100 mg PO DAILY@1800 06/03/20 09/27/20 tablet albuterol sulfate 1 amp INHALATION QID 09/26/20 09/27/20 albuterol sulfate 2 puff PO Q4-6H PRN 09/26/20 09/27/20 empagliflozin [Jardiance] 1 tab PO QAM 09/26/20 09/27/20 fluticasone propion-salmeterol 1 inh INHALATION BID 09/26/20 09/27/20 [Advair Diskus] gabapentin 2 cap PO TID 09/26/20 09/27/20 loteprednol etabonate 1 drp OPHTHALMIC (EYE) TID 09/26/20 09/27/20 quetiapine 3 tab PO BEDTIME 09/27/20 09/27/20 Allergies Allergy/AdvReac Type Severity Reaction Status Date / Time ENVIRONMENTAL Allergy Mild SNEEZING, Uncoded 09/26/20 17:14 WATERY EYES Review of Systems Review of Systems: Constitutional: + Fever, No Chills ENT/Mouth: No sore throat, No Rhinorrhea, No Swallowing Difficulty Eyes: No Eye Pain, No Swelling, No Redness Cardiovascular: + Chest Pain, + SOB, + Orthopnea, No Edema Respiratory: + Cough, No Sputum, + Wheezing, + dyspnea Gastrointestinal: + Nausea, No Vomiting, No Diarrhea, + abdominal Pain Genitourinary: No Dysuria, No Urinary Frequency, No Hematuria Musculoskeletal: No joint pain, No Myalgias Skin: No Skin Lesions, No rash Neuro: No Weakness, No Numbness, No Dizziness, + Headache Psych: No Anxiety/Panic, No Depression Heme/Lymph: No Bruising, No Lymphadenopathy PMFSH Past Medical History Medical History Alcohol abuse COPD (chronic obstructive pulmonary disease) Diabetes mellitus type 1 Diastolic dysfunction Diastolic heart failure HLD (hyperlipidemia) Hypertension Nonrheumatic aortic (valve) stenosis Obesity Family History Family History Father Diabetes Mother Diabetes Social History Social History Alcohol intake: former Smoking Status: Former smoker Use of substances other than those prescribed or required for medical reasons: No Advance Directives: No Advance Directives Information Provided: Yes Physical Exam Vital Signs: Vital Signs: Last Vital Signs Temp 98.2 F 09/27/20 19:46 Pulse 96 09/27/20 19:46 Resp 16 09/27/20 19:46 BP 104/38 L 09/27/20 19:46 Pulse Ox 94 09/27/20 19:46 Body Mass Index 34.9 Appearance: Alert. Oriented X3. Mild acute distress, wheezing heard at the foot of the bed. Eyes: Pupils equal, round and reactive to light. ENT: Pharynx normal. Neck: Normal inspection. Neck supple. CVS: Normal heart rate and rhythm. Pulses normal. Respiratory: Mild respiratory distress. Inspiratory and expiratory wheezes throughout, no rales or rhonchi. Abdomen: Obese, Soft and nontender. +BS x4 Skin: Skin warm and dry. Normal skin color. Normal skin turgor. No rashes. Extremities: No lower extremity edema. Neuro: Oriented X 3. No motor deficit. No sensory deficit. Speaks in complete sentences Course Course Course Narrative: 64 y/o male with history of COPD and HFpEF presenting with SOB, cough and wheezing. Clinical presentation and exam are consistent with acute COPD exacerbation. He recently left AMA. This was discussed with the patient and concern for need for admission. He is agreeable. Will get CXR, EKG and repeat blood work. IV steroids and neb ordered. Will reassess. Anticipate admission to the hospital. Reevaluation(s) Reevaluation #1: Some improvement after nebulizer treatment and steroids. Blood work showing WBC 16K, likely due to recently given IV steroids yesterday. No fevers, procal low. CXR without infiltrate. Will treat for possible bronchitis with azithromycin and rocephin. Reevaluation #2: Chemistry with mild LAUREN, SCr 1.6. [place] pre-renal. 1L IVF ordered, will give slowly given history of CHF. He does not appear to be volume overloaded. He remains on 2L NC, SpO2 93-94% Reevaluation #3: Spoke w/ Dr. Foremna who will admit the patient. MDM - SOB/Dyspnea Differential Diagnosis Differential diagnosis: Likely acute exacerbation of chronic obstructive airways disease, congestive heart failure, pneumonia, asthma with exacerbation, pleural effusion, sleep apnea and anemia Medical Records Attestation: I reviewed the patient's medical records. Lab Data Attestation: I reviewed the patient's lab results. Result diagrams: 09/27/20 17:11 09/27/20 17:11 Labs: Lab Results 09/27/20 09/27/20 09/27/20 Range/Units 17:11 17:11 17:11 WBC 16.5 H (4.8-10.8) X10*3/uL RBC 4.92 (4.60-5.80) X10*6/uL Hgb 15.4 (14.0-18.0) g/dl Hct 45.6 (42-52) % MCV 92.7 (80-98) fL MCH 31.3 (27.0-33.0) pg MCHC 33.8 (31.0-36.0) g/dl RDW 13.5 (11.0-16.0) % Plt Count 292 D (160-400) X10*3/uL MPV 8.9 L (9.4-12.4) fL Immature Gran % (Auto) 0.4 (0.0-0.4) % Neut % (Auto) 84.1 H (45-73) % Lymph % (Auto) 7.9 L (20-40) % Cotton % (Auto) 7.4 (2-11) % Eos % (Auto) 0.1 (0-4) % Baso % (Auto) 0.1 (0-2) % Lymph # (Auto) 1.3 (1.2-4.9) X10*3/uL Cotton # (Auto) 1.2 (0.1-1.2) X10*3/uL Eos # (Auto) 0.0 (0.0-0.4) X10*3/uL Baso # (Auto) 0.0 (0.0-0.2) X10*3/uL Abs Immat Gran (auto) 0.07 H (0.00-0.03) X10*3/uL Absolute Neuts (auto) 13.9 H (2.0-8.3) X10*3/uL Absolute Nucleated RBC 0.000 (0.0-0.012) X10*3/uL Nucleated RBC % (auto) 0.0 (0.0-0.2) /100WBC PT 12.5 (10.8-13.0) SEC INR 1.1 (0.9-1.1) APTT 31.6 (24.1-38.0) SEC Hold Blue Top SEE NOTE Sodium 138 (135-145) mmol/L Potassium 4.3 (3.3-5.1) mmol/L Chloride 97 (96-108) mmol/L Carbon Dioxide 28 (22-29) mmol/L Anion Gap 17 (12-20) BUN 31 H D (9-16) mg/dL Creatinine 1.61 H (0.5-1.4) mg/dL Estim Creat Clear Calc 54.2 Estimated GFR 43 POC Glucose (60-115) mg/dL Random Glucose 117 H D (60-115) mg/dL Lactic Acid (0.5-2.0) mmol/L Calcium 9.7 D (8.4-10.2) mg/dL Magnesium 1.7 (1.6-2.6) mg/dL Total Bilirubin 0.5 (0.0-1.0) mg/dL Direct Bilirubin < 0.2 (0.0-0.5) mg/dL AST 13 (5-37) U/L ALT 13 (0-40) U/L Alkaline Phosphatase 85 (39-117) U/L Troponin I High Sens (<3.5-35.0) ng/L B-Natriuretic Peptide (<100) pg/mL Total Protein 7.0 (6.5-8.0) g/dL Albumin 4.5 (3.5-5.0) g/dL Procalcitonin ng/mL COVID-19 (ELIER) (Negative) COVID-19 Clin Com 09/27/20 09/27/20 09/27/20 Range/Units 17:11 17:11 17:11 WBC (4.8-10.8) X10*3/uL RBC (4.60-5.80) X10*6/uL Hgb (14.0-18.0) g/dl Hct (42-52) % MCV (80-98) fL MCH (27.0-33.0) pg MCHC (31.0-36.0) g/dl RDW (11.0-16.0) % Plt Count (160-400) X10*3/uL MPV (9.4-12.4) fL Immature Gran % (Auto) (0.0-0.4) % Neut % (Auto) (45-73) % Lymph % (Auto) (20-40) % Cotton % (Auto) (2-11) % Eos % (Auto) (0-4) % Baso % (Auto) (0-2) % Lymph # (Auto) (1.2-4.9) X10*3/uL Cotton # (Auto) (0.1-1.2) X10*3/uL Eos # (Auto) (0.0-0.4) X10*3/uL Baso # (Auto) (0.0-0.2) X10*3/uL Abs Immat Gran (auto) (0.00-0.03) X10*3/uL Absolute Neuts (auto) (2.0-8.3) X10*3/uL Absolute Nucleated RBC (0.0-0.012) X10*3/uL Nucleated RBC % (auto) (0.0-0.2) /100WBC PT (10.8-13.0) SEC INR (0.9-1.1) APTT (24.1-38.0) SEC Hold Blue Top Sodium (135-145) mmol/L Potassium (3.3-5.1) mmol/L Chloride (96-108) mmol/L Carbon Dioxide (22-29) mmol/L Anion Gap (12-20) BUN (9-16) mg/dL Creatinine (0.5-1.4) mg/dL Estim Creat Clear Calc Estimated GFR POC Glucose (60-115) mg/dL Random Glucose (60-115) mg/dL Lactic Acid 2.0 (0.5-2.0) mmol/L Calcium (8.4-10.2) mg/dL Magnesium (1.6-2.6) mg/dL Total Bilirubin (0.0-1.0) mg/dL Direct Bilirubin (0.0-0.5) mg/dL AST (5-37) U/L ALT (0-40) U/L Alkaline Phosphatase (39-117) U/L Troponin I High Sens 28.2 D (<3.5-35.0) ng/L B-Natriuretic Peptide 26 (<100) pg/mL Total Protein (6.5-8.0) g/dL Albumin (3.5-5.0) g/dL Procalcitonin ng/mL COVID-19 (ELIER) Negative (Negative) COVID-19 Clin Com See Note 09/27/20 09/27/20 Range/Units 17:11 19:10 WBC (4.8-10.8) X10*3/uL RBC (4.60-5.80) X10*6/uL Hgb (14.0-18.0) g/dl Hct (42-52) % MCV (80-98) fL MCH (27.0-33.0) pg MCHC (31.0-36.0) g/dl RDW (11.0-16.0) % Plt Count (160-400) X10*3/uL MPV (9.4-12.4) fL Immature Gran % (Auto) (0.0-0.4) % Neut % (Auto) (45-73) % Lymph % (Auto) (20-40) % Cotton % (Auto) (2-11) % Eos % (Auto) (0-4) % Baso % (Auto) (0-2) % Lymph # (Auto) (1.2-4.9) X10*3/uL Cotton # (Auto) (0.1-1.2) X10*3/uL Eos # (Auto) (0.0-0.4) X10*3/uL Baso # (Auto) (0.0-0.2) X10*3/uL Abs Immat Gran (auto) (0.00-0.03) X10*3/uL Absolute Neuts (auto) (2.0-8.3) X10*3/uL Absolute Nucleated RBC (0.0-0.012) X10*3/uL Nucleated RBC % (auto) (0.0-0.2) /100WBC PT (10.8-13.0) SEC INR (0.9-1.1) APTT (24.1-38.0) SEC Hold Blue Top Sodium (135-145) mmol/L Potassium (3.3-5.1) mmol/L Chloride (96-108) mmol/L Carbon Dioxide (22-29) mmol/L Anion Gap (12-20) BUN (9-16) mg/dL Creatinine (0.5-1.4) mg/dL Estim Creat Clear Calc Estimated GFR POC Glucose 171 H (60-115) mg/dL Random Glucose (60-115) mg/dL Lactic Acid (0.5-2.0) mmol/L Calcium (8.4-10.2) mg/dL Magnesium (1.6-2.6) mg/dL Total Bilirubin (0.0-1.0) mg/dL Direct Bilirubin (0.0-0.5) mg/dL AST (5-37) U/L ALT (0-40) U/L Alkaline Phosphatase (39-117) U/L Troponin I High Sens (<3.5-35.0) ng/L B-Natriuretic Peptide (<100) pg/mL Total Protein (6.5-8.0) g/dL Albumin (3.5-5.0) g/dL Procalcitonin 0.04 ng/mL COVID-19 (ELIER) (Negative) COVID-19 Clin Com ECG Data Attestation: I personally reviewed and interpreted this ECG as follows: ECG interpretation date: 09/27/20 ECG interpretation time: 19:38 Prior ECG tracings: available for review Interpretation: normal sinus rhythm, HR 87 bpm, normal [place] interval, no ST segment elevations or depressions Critical Care Time Critical Care Time Critical Care Time: Yes Total Critical Care Time: 38 Attestation: I attest to critical care time spent caring for this patient. Discharge Plan Discharge Clinical Impression: Acute exacerbation of chronic obstructive airways disease, LAUREN (acute kidney injury) Patient Disposition: Admitted As Inpatient
--- NOTE | 2020-09-27 17:08 | PC.NURSE ---
PT TOUGH STICK. NUMEROUS RNS IN TO ATTEMPT IV PLACEMENT. RN CURRENTLY AT BEDSIDE WITH ULTRASOUND.
[2020-09-27] MEDS: Albuterol Sulfate (0.083%) 2.5 MG/3 ML VIAL.NEB 10 MG INHALE (17:13)
[2020-09-27 17:14] VITALS: PULSE 87; O2SAT 93
[2020-09-27] MEDS: methylPREDNISolone Sod Succ 125 MG/2 ML VIAL IVPUSH (17:14)
[2020-09-27 17:18] LABS: MANUAL DIFF FLAG NO
[2020-09-27 17:19] LABS: Basophils Percent Auto 0.1 % (0-2); Eosinophils Percent Auto 0.1 % (0-4); Hematocrit 45.6 % (42-52); Hemoglobin 15.4 g/dl (14.0-18.0); Imm Gran Abs Auto 0.07 X10*3/uL (0.00-0.03); Imm Gran Pct Auto 0.4 % (0.0-0.4); Lymphocytes Absolute Auto 1.3 X10*3/uL (1.2-4.9); Lymphocytes Percent Auto 7.9 % (20-40); Mean Corpuscular HGB Conc 33.8 g/dl (31.0-36.0); Mean Corpuscular Hemoglobin 31.3 pg (27.0-33.0); Mean Corpuscular Volume 92.7 fL (80-98); Mean Platelet Volume 8.9 fL (9.4-12.4); Monocytes Absolute Auto 1.2 X10*3/uL (0.1-1.2); Monocytes Percent Auto 7.4 % (2-11); Neutrophils Absolute Auto 13.9 X10*3/uL (2.0-8.3); Neutrophils Percent Auto 84.1 % (45-73); Platelet Count 292 X10*3/uL (160-400); Red Blood Count 4.92 X10*6/uL (4.60-5.80); Red Cell Distribution Width 13.5 % (11.0-16.0); White Blood Count 16.5 X10*3/uL (4.8-10.8)
[2020-09-27 17:24] LABS: INTERNATIONAL NORM RATIO 1.1 (0.9-1.1); Prothrombin Time 12.5 SEC (10.8-13.0)
[2020-09-27 17:27] LABS: Partial Thromboplastin Time 31.6 SEC (24.1-38.0)
[2020-09-27 17:57] LABS: COVID-19 Test Negative (Negative); IDNOW Serial# 9DD0AD1C
[2020-09-27 18:05] LABS: Alanine Aminotransferase 13 U/L (0-40); Albumin Level 4.5 g/dL (3.5-5.0); Alkaline Phosphatase 85 U/L (39-117); Anion Gap 17 (12-20); Aspartate Amino Transferase 13 U/L (5-37); Bilirubin Direct < 0.2 mg/dL (0.0-0.5); Bilirubin Total 0.5 mg/dL (0.0-1.0); Blood Urea Nitrogen 31 mg/dL (9-16); Calcium 9.7 mg/dL (8.4-10.2); Carbon Dioxide 28 mmol/L (22-29); Chloride 97 mmol/L (96-108); Creatinine Clr Calc Pharmacy 54.2; Estimated Glomerular Filt Rate 43; Glucose Random 117 mg/dL (60-115); Magnesium 1.7 mg/dL (1.6-2.6); Potassium 4.3 mmol/L (3.3-5.1); Sodium 138 mmol/L (135-145)
[2020-09-27] MEDS: cefTRIAXone sodium 1 GM in 0.9 % Sodium Chloride 50 ML IV (18:07)
[2020-09-27 18:10] LABS: B Type Natriuretic Peptide 26 pg/mL (<100); Troponin-I High Sensitivity 28.2 ng/L (<3.5-35.0)
[2020-09-27 18:57] LABS: Procalcitonin 0.04 ng/mL
[2020-09-27 19:17] LABS: Glucose, Whole Blood 171 mg/dL (60-115)
--- NOTE | 2020-09-27 19:30 | PC.NURSE ---
LOST PT IV ACCESS. 4TH RN IN TO PLACE ANOTHER #20 IN R FOREARM.
[2020-09-27] MEDS: 0.9 % Sodium Chloride 1,000 ML 999 ML IVCONT (19:36)
[2020-09-27] MEDS: Acetaminophen 325 MG TABLET 975 MG PO (19:42)
[2020-09-27] MEDS: Azithromycin 500 MG in 0.9 % Sodium Chloride 250 ML 125 MG IV (19:43)
[2020-09-27 19:46] VITALS: BP 104/38; PULSE 96; RESP 16; TEMP 36.8; O2SAT 94
[2020-09-27 20:21] LABS: Troponin-I High Sensitivity 24.8 ng/L (<3.5-35.0)
--- NOTE | 2020-09-27 23:34 | P.HPHOSP_ITS ---
History of Present Illness Date of Service: 09/27/20 Chief Complaint: sob This is a 64-year-old male with past medical history of COPD, diabetes, CHF, HLD, HTN, nonrheumatic aortic valve stenosis, who presents to the hospital with complaints of shortness of breath, cough, and sputum production. Patient reports that his symptoms started about a week ago, he is also complaining of chest wall pain as well as abdominal wall pain from coughing, patient denies any sick contacts or recent travel. No fever, no chills, no abdominal pain nausea or vomiting, no diarrhea constipation, no urinary symptoms and no lower extremity edema. Patient apparently was 88 on room air for EMS. Other vitals were significant for temp of 98.2?, heart rate of 101, respiratory rate of 20, blood pressure of 111, satting 94% on room air Labs are significant for WBC count of 16.5, BUN of 31, creatinine of 1.6 with a baseline of 1.1 , high sensitivity troponin of 20.2 with repeat of 24.8, BNP of 26, procalcitonin of 0.04, COVID-19 negative CXR no evidence for acute disease in the chest pmhx as below and confirmed w pt [facility] Medical History Alcohol abuse COPD (chronic obstructive pulmonary disease) Diabetes mellitus type 1 Diastolic dysfunction Diastolic heart failure HLD (hyperlipidemia) Hypertension Nonrheumatic aortic (valve) stenosis Obesity Family History Father Diabetes Mother Diabetes Social History Household Members: None Housing: Apartment Do you presently have visiting nurse or other home services: No Alcohol intake: former Smoking Status: Former smoker Smoked in Last 30 Days: No Patient Interested in Nicotine Replacement: No Patient Given Instructions on How to Stop Smoking: No Second Hand Smoke Exposure: No Use of substances other than those prescribed or required for medical reasons: No Have you been hit, kicked, punched, or otherwise hurt by someone within the past year? If so, by whom?: No Do you feel safe in your current relationship?: No Current Relationship Is there a partner from a previous relationship who is making you feel unsafe now?: No Are you made to feel afraid or neglected: No Advance Directives: No Advance Directives Information Provided: Yes Do you have thoughts of harming others: None Do you have a plan to hurt others: No Plan Recently lost weight without trying: No Eating poorly because of decreased appetite: No Nutrition Risks: No Nutritional Risk Poor oral hygiene: No Meds Allergies Allergy/AdvReac Type Severity Reaction Status Date / Time ENVIRONMENTAL Allergy Mild SNEEZING, Uncoded 09/26/20 17:14 WATERY EYES Active Medications: Current Medications Generic Name Dose Route Start Last Admin Trade Name Freq PRN Reason Stop Dose Admin Pharmacy Consult 1 each 09/27/20 15:59 Consult Rx Perform Med Rec MISCELLANE ONCE PRN Consult order Home Medications Medication Instructions Recorded Confirmed Last Taken Type aspirin 81 mg tablet,delayed 81 mg PO BEDTIME 06/03/20 09/27/20 09/26/20 History release buspirone 5 mg tablet 5 mg PO BID 06/03/20 09/27/20 Unknown History celecoxib 50 mg capsule 50 mg PO BID cap 06/03/20 09/27/20 09/26/20 History fluticasone propionate 50 1 - 2 spray INTRANASAL DAILY PRN 06/03/20 09/27/20 Unknown History mcg/actuation nasal spray,suspension folic acid 1 mg tablet 1 mg PO DAILY@1800 06/03/20 09/27/20 Unknown History insulin aspart U-100 100 unit/mL See Rx Instructions .ROUTE .COMPLEX 06/03/20 09/27/20 Unknown History subcutaneous solution insulin glargine 100 unit/mL 45 unit SUBCUT BEDTIME 06/03/20 09/27/20 Unknown History subcutaneous solution lisinopril 10 mg tablet 10 mg PO QAM 06/03/20 09/27/20 09/26/20 History multivitamin 1 tab PO QAM 06/03/20 09/27/20 09/26/20 History omega-3 fatty acids-fish oil 340 1 cap PO QAM 06/03/20 09/27/20 09/26/20 History mg-1,000 mg capsule omeprazole 20 mg capsule,delayed 20 mg PO QAM 06/03/20 09/27/20 09/26/20 History release simvastatin 20 mg tablet 20 mg PO BEDTIME 06/03/20 09/27/20 09/25/20 History thiamine HCl (vitamin B1) 100 mg 100 mg PO DAILY@1800 06/03/20 09/27/20 09/26/20 History tablet albuterol sulfate 1 amp INHALATION QID 09/26/20 09/27/20 09/26/20 History albuterol sulfate 2 puff PO Q4-6H PRN 09/26/20 09/27/20 Unknown History empagliflozin [Jardiance] 1 tab PO QAM 09/26/20 09/27/20 09/26/20 History fluticasone propion-salmeterol 1 inh INHALATION BID 09/26/20 09/27/20 09/26/20 History [Advair Diskus] gabapentin 2 cap PO TID 09/26/20 09/27/20 09/26/20 History loteprednol etabonate 1 drp OPHTHALMIC (EYE) TID 09/26/20 09/27/20 09/26/20 History quetiapine 3 tab PO BEDTIME 09/27/20 09/27/20 Unknown History Physical Exam Vital Signs and Narrative: Vital Signs: Last Vital Signs Temp 98.2 F 09/27/20 19:46 Pulse 96 09/27/20 19:46 Resp 16 09/27/20 19:46 BP 104/38 L 09/27/20 19:46 Pulse Ox 94 09/27/20 19:46 Body Mass Index 34.9 Const: General: cooperative and no acute distress Orientation/c onsciousness: patient oriented x3 Eyes: General: appearance normal, both eyes and all related structures Resp: Other: wheezing Effort & Inspection: normal respiratory effort and able to speak in complete sentences Cardio: Rate: regular rate Rhythm: regular rhythm GI: Palpation (GI): Soft to palpation Auscultation: normal bowel sounds Skin: General skin exam: no rashes or lesions noted Neuro: General: patient oriented x3 Cognition (Neuro): normal cognition Extrem: General: Yes normal to inspection and Yes no pedal edema Results Labs CBC and Chem 7: 09/27/20 17:11 09/27/20 17:11 Labs: Laboratory Results - last 24 hr 09/27/20 09/27/20 09/27/20 17:11 17:11 17:11 MCV 92.7 MCH 31.3 MCHC 33.8 RDW 13.5 Plt Count 292 D MPV 8.9 L Immature Gran % (Auto) 0.4 Neut % (Auto) 84.1 H Lymph % (Auto) 7.9 L Sac % (Auto) 7.4 Eos % (Auto) 0.1 Baso % (Auto) 0.1 Lymph # (Auto) 1.3 Sac # (Auto) 1.2 Eos # (Auto) 0.0 Baso # (Auto) 0.0 Abs Immat Gran (auto) 0.07 H Absolute Neuts (auto) 13.9 H Absolute Nucleated RBC 0.000 Nucleated RBC % (auto) 0.0 PT 12.5 INR 1.1 APTT 31.6 Hold Blue Top SEE NOTE Anion Gap 17 Estim Creat Clear Calc 54.2 Estimated GFR 43 POC Glucose Random Glucose 117 H D Lactic Acid Calcium 9.7 D Magnesium 1.7 Total Bilirubin 0.5 Direct Bilirubin < 0.2 AST 13 ALT 13 Alkaline Phosphatase 85 Troponin I High Sens B-Natriuretic Peptide Total Protein 7.0 Albumin 4.5 Procalcitonin COVID-19 (ELIER) COVID-[employer] 09/27/20 09/27/20 09/27/20 17:11 17:11 17:11 MCV MCH MCHC RDW Plt Count MPV Immature Gran % (Auto) Neut % (Auto) Lymph % (Auto) Sac % (Auto) Eos % (Auto) Baso % (Auto) Lymph # (Auto) Sac # (Auto) Eos # (Auto) Baso # (Auto) Abs Immat Gran (auto) Absolute Neuts (auto) Absolute Nucleated RBC Nucleated RBC % (auto) PT INR APTT Hold Blue Top Anion Gap Estim Creat Clear Calc Estimated GFR POC Glucose Random Glucose Lactic Acid 2.0 Calcium Magnesium Total Bilirubin Direct Bilirubin AST ALT Alkaline Phosphatase Troponin I High Sens 28.2 D B-Natriuretic Peptide 26 Total Protein Albumin Procalcitonin COVID-19 (ELIER) Negative COVID-[employer] See Note 09/27/20 09/27/20 09/27/20 17:11 19:10 19:29 MCV MCH MCHC RDW Plt Count MPV Immature Gran % (Auto) Neut % (Auto) Lymph % (Auto) Sac % (Auto) Eos % (Auto) Baso % (Auto) Lymph # (Auto) Sac # (Auto) Eos # (Auto) Baso # (Auto) Abs Immat Gran (auto) Absolute Neuts (auto) Absolute Nucleated RBC Nucleated RBC % (auto) PT INR APTT Hold Blue Top Anion Gap Estim Creat Clear Calc Estimated GFR POC Glucose 171 H Random Glucose Lactic Acid Calcium Magnesium Total Bilirubin Direct Bilirubin AST ALT Alkaline Phosphatase Troponin I High Sens 24.8 B-Natriuretic Peptide Total Protein Albumin Procalcitonin 0.04 COVID-19 (ELIER) COVID-19 Clin Com Imaging Radiologist's Impressions: Impressions Chest X-Ray 09/27/20 15:59 IMPRESSION: No evidence for acute disease in the chest. Assessment and Plan (1) Acute exacerbation of chronic obstructive airways disease: Status: Acute (2) LAUREN (acute kidney injury): Status: Acute (3) Acute respiratory failure with hypoxia: Status: Acute 64 with hx of COPD presents to the hospital with sob, cough and sputum production found to be hypoxic # Acute hypoxic resp failure - 2/2 COPD excerbation - O2 of 88% on RA - no evidence of pneumonia on chest x-ray - will start patient on Solu-Medrol, DuoNeb p.r.n. as well as scheduled - monitor respiratory status # COPD exacerbation - has cough, sputum production, dyspnea - will start him on Solu-Medrol 40 IV b.i.d., DuoNeb p.r.n. and q.i.d. scheduled - azithromycin given the severity of his symptoms # LAUREN - will start him on IV fluids - follow BMP # CHF - no exacerbation - monitor for volume overload given hydration for LAUREN - continue Lasix # diabetes - hold oral anti hyperglycemics - start low-dose sliding scale insulin - continue home glargine - diabetic diet DVT prophylaxis: Lovenox
[2020-09-28] VITALS (11 sets, daily range): BP systolic 95–158; BP diastolic 48–76; PULSE 78–104; RESP 18–21; TEMP 36.2–36.8; O2SAT 93–99
[2020-09-28] MEDS: busPIRone HCl 5 MG TABLET PO ×3 (02:02→20:57)
[2020-09-28] MEDS: Gabapentin 300 MG CAPSULE 600 MG PO ×4 (02:03→20:58)
[2020-09-28] MEDS: Enoxaparin Sodium 40 MG/0.4 ML SYRINGE SUBCUT (02:04)
[2020-09-28] MEDS: Insulin Glargine,Hum.rec.anlog 100 UNIT/ML 10 ML VIAL 45 UNIT SUBCUT ×2 (02:04→20:58)
[2020-09-28] MEDS: Lactated Ringers 1,000 ML 100 ML IVCONT ×3 (02:05→21:10)
[2020-09-28] MEDS: Acetaminophen 325 MG TABLET 650 MG PO (02:28)
[2020-09-28] MEDS: oxyCODONE HCl Immed Release 5 MG TABLET PO (04:45)
[2020-09-28] MEDS: methylPREDNISolone Sod Succ 40 MG/ML VIAL IVPUSH ×2 (04:46→16:32)
[2020-09-28] MEDS: Albuterol/Iprat 2.5/0.5MG 3 ML AMPUL.NEB INHALE ×4 (05:10→20:11)
[2020-09-28] MEDS: Omeprazole 20 MG CAPSULE.DR PO (06:29)
[2020-09-28 07:35] LABS: Glucose, Whole Blood 370 mg/dL (60-115)
[2020-09-28] MEDS: Azithromycin 500 MG TABLET PO (08:25)
[2020-09-28] MEDS: Multivitamin TABLET 1 TAB PO (08:25)
[2020-09-28] MEDS: 0.9 % Sodium Chloride Flush 3 ML SYRINGE IVFLUSH ×2 (08:25→15:31)
[2020-09-28] MEDS: Insulin Lispro 100 UNIT/ML 3 ML VIAL SUBCUT ×4 (08:25→21:00)
[2020-09-28] MEDS: Benzonatate 100 MG CAPSULE PO (08:38)
[2020-09-28 09:47] LABS: Anion Gap 20 (12-20); Blood Urea Nitrogen 40 mg/dL (9-16); Calcium 8.9 mg/dL (8.4-10.2); Carbon Dioxide 18 mmol/L (22-29); Chloride 100 mmol/L (96-108); Creatinine Clr Calc Pharmacy 52.3; Estimated Glomerular Filt Rate 42; Glucose Random 370 mg/dL (60-115); Potassium 5.5 mmol/L (3.3-5.1); Sodium 132 mmol/L (135-145)
[2020-09-28] MEDS: Morphine Sulfate 2 MG/ML CARTRIDGE IVPUSH ×3 (10:59→21:04)
[2020-09-28] MEDS: Lidocaine 4 % Patch ADH..PATCH 1 PATCH TRANSDERMA (10:59)
[2020-09-28 12:00] LABS: Glucose, Whole Blood 361 mg/dL (60-115)
[2020-09-28] MEDS: Magnesium Hydrox/Alum Hydrox 30 ML ORAL.SUSP PO (13:37)
[2020-09-28] MEDS: Sodium Polystyrene Sulfon/Sorb 15 GM/60 ML ORAL.SUSP 30 GM PO (13:38)
--- NOTE | 2020-09-28 14:24 | MHC.CM.PN ---
nurse healthcare social worker note electronic medical record reviewed along with case discussed with staff nurse and hospitlasit , met with patient reviewed with him the [facility] and left copy with him at bedside , he reported he has a health care proxy and we should have it on file ,(at this time i could not find it ) requested copy be mailed in he lives alone , he is independent with his adls and mobility at his own pace , discharge plan home no services (offered vna and declined) self resumption of his home o2 at with [facility] self resumption of his meals on wheels -[facility] community nurse t/c follow up [facility] transportation to medical appointments / [facility] [place] appointments [place] [facility] and when discharged pcp dr preston at the [facility] t
[2020-09-28] MEDS: guaiFENesin DM 100/10/5 ML 5 ML SYRUP PO (14:43)
[2020-09-28 15:09] LABS: Basophils Percent Auto 0.1 % (0-2); Imm Gran Pct Auto 0.3 % (0.0-0.4); MANUAL DIFF FLAG SCAN; PLT CLUMP 1; SCAN SMEAR FLAG 1
[2020-09-28 15:11] LABS: Hematocrit 47.6 % (42-52); Hemoglobin 15.8 g/dl (14.0-18.0); Imm Gran Abs Auto 0.05 X10*3/uL (0.00-0.03); Lymphocytes Absolute Auto 0.6 X10*3/uL (1.2-4.9); Mean Corpuscular HGB Conc 33.2 g/dl (31.0-36.0); Mean Corpuscular Hemoglobin 31.7 pg (27.0-33.0); Mean Corpuscular Volume 95.4 fL (80-98); Monocytes Absolute Auto 0.6 X10*3/uL (0.1-1.2); Monocytes Percent Auto 4.3 % (2-11); Neutrophils Absolute Auto 13.3 X10*3/uL (2.0-8.3); Neutrophils Percent Auto 91.3 % (45-73); Red Blood Count 4.99 X10*6/uL (4.60-5.80); Red Cell Distribution Width 13.9 % (11.0-16.0); White Blood Count 14.6 X10*3/uL (4.8-10.8)
--- NOTE | 2020-09-28 15:20 | P.PNIM_ITS ---
Subjective Subjective Date of Service: 09/28/20 Interval History: Complaining of lower chest and upper abdominal pain with coughing; also has indigestion Physical Exam Vital Signs: Vital Signs: Last Vital Signs Temp 98.2 F 09/28/20 11:51 Pulse 91 09/28/20 15:15 Resp 21 H 09/28/20 11:51 BP 140/54 H 09/28/20 11:51 Pulse Ox 97 09/28/20 11:51 Body Mass Index 34.9 Gen: Mild respiratory distress HEENT: sclera anicteric, moist mucus membranes Neck: supple Lungs: Bilateral expiratory wheezes Heart: regular rate and rhythm, 2/6 systolic murmur; chest wall tenderness along lower sternum Abd: soft, mild epigastric tenderness, no rebound Ext: no edema Skin: warm/well-perfused Neuro: alert and oriented x3, no focal findings Psych: appropriate affect Objective Data Current Medications Generic Name Dose Route Start Last Admin Trade Name Freq PRN Reason Stop Dose Admin Acetaminophen 650 mg 09/28/20 01:12 09/28/20 02:28 Acetaminophen 325 Mg Tablet PO 650 mg Q6H PRN Administration Pain, Mild (Pain Scale 1-3) Al Hydroxide/Mg Hydroxide 30 ml 09/28/20 11:28 09/28/20 13:37 Magnesium Hydrox/Alum Hydrox 30 Ml Oral.Susp PO 30 ml Q4H PRN Administration Indigestion Albuterol/Ipratropium 3 ml 09/28/20 08:00 09/28/20 15:14 Albuterol/Iprat 2.5/0.5mg 3 Ml Ampul.Neb INHALE 3 ml RQ4H WHILE AWAKE JOURDAN Administration Albuterol/Ipratropium 3 ml 09/28/20 01:12 09/28/20 05:10 Albuterol/Iprat 2.5/0.5mg 3 Ml Ampul.Neb INHALE 3 ml RQ4H PRN Administration Shortness of Breath/Wheezing Aspirin 81 mg 09/28/20 21:00 Aspirin Enteric Coated 81 Mg Tablet. PO BEDTIME JOURDAN Atorvastatin Calcium 10 mg 09/28/20 21:00 Atorvastatin Calcium 10 Mg Tablet PO BEDTIME JOURDAN Azithromycin 500 mg 09/28/20 09:00 09/28/20 08:25 Azithromycin 500 Mg Tablet PO 500 mg Q24H JOURDAN Administration Benzonatate 100 mg 09/28/20 05:53 09/28/20 08:38 Benzonatate 100 Mg Capsule PO 100 mg TID PRN Administration Cough Buspirone HCl 5 mg 09/28/20 01:12 09/28/20 08:25 Buspirone Hcl 5 Mg Tablet PO 5 mg BID JOURDAN Administration Docusate Sodium 100 mg 09/28/20 01:12 Docusate Sodium 100 Mg Capsule PO DAILY PRN Constipation Enoxaparin Sodium 40 mg 09/28/20 02:00 09/28/20 02:04 Enoxaparin Sodium 40 Mg/0.4 Ml Syringe SUBCUT 40 mg Q24H JOURDAN Administration Fluticasone Propionate 2 spray 09/28/20 11:27 Fluticasone Propionate Nasal 16 Gm [place] NOSTRIL-B DAILY PRN Allergy Symptoms Folic Acid 1 mg 09/28/20 18:00 Folic Acid 1 Mg Tablet PO DAILY@1800 JOURDAN Gabapentin 600 mg 09/28/20 01:12 09/28/20 13:43 Gabapentin 300 Mg Capsule PO 600 mg TID JOURDAN Administration Guaifenesin/Dextromethorphan 5 ml 09/28/20 13:54 09/28/20 14:43 Guaifenesin Dm 100/10/5 Ml 5 Ml Syrup PO 5 ml Q4H PRN Administration cough Lactated Ringer's 1,000 mls @ 100 mls/hr 09/28/20 01:12 09/28/20 13:38 Lr IVCONT 100 mls/hr .Q10H JOURDAN Administration Insulin Glargine 45 unit 09/28/20 01:12 09/28/20 02:04 Insulin Glargine,Hum.Rec.Anlog 100 Unit/Ml 10 Ml Vial SUBCUT 45 unit BEDTIME JOURDAN Administration Insulin Human Lispro 0 unit 09/28/20 07:30 09/28/20 12:16 Insulin Lispro 100 Unit/Ml 3 Ml Vial SUBCUT 10 unit QIDACHS [facility] Administration Protocol Lidocaine 1 patch 09/28/20 10:30 09/28/20 10:59 Lidocaine 4 % Patch Adh..Patch TRANSDERMA 1 patch DAILY [facility] Administration Protocol Methylprednisolone Sodium Succinate 40 mg 09/28/20 05:00 09/28/20 04:46 Methylprednisolone Sod Succ 40 Mg/Ml Vial IVPUSH 40 mg Q12H JOURDAN Administration Morphine Sulfate 2 mg 09/28/20 10:21 09/28/20 10:59 Morphine Sulfate 2 Mg/Ml Cartridge IVPUSH 2 mg Q4H PRN Administration pain,severe Multivitamins/Vitamin C 1 tab 09/28/20 09:00 09/28/20 08:25 Multivitamin Tablet PO 1 tab DAILY [facility] Administration Non-Formulary Medication 1 drop 09/28/20 09:00 Loteprednol Etabonate EYE-BOTH TID [facility] Non-Formulary Medication 50 mg 09/28/20 21:00 Celecoxib PO BID [facility] Omeprazole 20 mg 09/28/20 06:30 09/28/20 06:29 Omeprazole 20 Mg Capsule. PO 20 mg DAILY@0630 [facility] Administration Ondansetron HCl 4 mg 09/28/20 01:12 Ondansetron Hcl 4 Mg/2 Ml Vial IVPUSH Q8H PRN Nausea and Vomiting Pharmacy Consult 1 each 09/27/20 15:59 Consult Rx Perform Med Rec MISCELLANE ONCE PRN Consult order Quetiapine Fumarate 150 mg 09/28/20 01:12 09/28/20 02:23 Quetiapine Fumarate 50 Mg Tablet PO Not Given BEDTIME [facility] Sodium Chloride 3 ml 09/28/20 01:12 09/28/20 08:25 0.9 % Sodium Chloride Flush 3 Ml Syringe IVFLUSH 3 ml QSHIFT [facility] Administration Thiamine HCl 100 mg 09/28/20 18:00 Thiamine Hcl 100 Mg Tablet PO DAILY@1800 [facility] Labs CBC & Chem 7: 09/28/20 14:58 09/28/20 08:18 Labs: Laboratory Results - last 24 hr 09/27/20 09/27/20 09/27/20 17:11 17:11 17:11 WBC 16.5 H RBC 4.92 Hgb 15.4 Hct 45.6 MCV 92.7 MCH 31.3 MCHC 33.8 RDW 13.5 Plt Count 292 D MPV 8.9 L Immature Gran % (Auto) 0.4 Neut % (Auto) 84.1 H Lymph % (Auto) 7.9 L [place] % (Auto) 7.4 Eos % (Auto) 0.1 Baso % (Auto) 0.1 Lymph # (Auto) 1.3 [place] # (Auto) 1.2 Eos # (Auto) 0.0 Baso # (Auto) 0.0 Abs Immat Gran (auto) 0.07 H Absolute Neuts (auto) 13.9 H Absolute Nucleated RBC 0.000 Nucleated RBC % (auto) 0.0 PT 12.5 INR 1.1 APTT 31.6 Hold Blue Top SEE NOTE Sodium 138 Potassium 4.3 Chloride 97 Carbon Dioxide 28 Anion Gap 17 BUN 31 H D Creatinine 1.61 H Estim Creat Clear Calc 54.2 Estimated GFR 43 POC Glucose Random Glucose 117 H D Lactic Acid Calcium 9.7 D Magnesium 1.7 Total Bilirubin 0.5 Direct Bilirubin < 0.2 AST 13 ALT 13 Alkaline Phosphatase 85 Troponin I High Sens B-Natriuretic Peptide Total Protein 7.0 Albumin 4.5 Procalcitonin COVID-19 (ELIER) COVID-19 [facility] 09/27/20 09/27/20 09/27/20 17:11 17:11 17:11 WBC RBC Hgb Hct MCV MCH MCHC RDW Plt Count MPV Immature Gran % (Auto) Neut % (Auto) Lymph % (Auto) [place] % (Auto) Eos % (Auto) Baso % (Auto) Lymph # (Auto) [place] # (Auto) Eos # (Auto) Baso # (Auto) Abs Immat Gran (auto) Absolute Neuts (auto) Absolute Nucleated RBC Nucleated RBC % (auto) PT INR APTT Hold Blue Top Sodium Potassium Chloride Carbon Dioxide Anion Gap BUN Creatinine Estim Creat Clear Calc Estimated GFR POC Glucose Random Glucose Lactic Acid 2.0 Calcium Magnesium Total Bilirubin Direct Bilirubin AST ALT Alkaline Phosphatase Troponin I High Sens 28.2 D B-Natriuretic Peptide 26 Total Protein Albumin Procalcitonin COVID-19 (ELIER) Negative COVID-19 [employer] See Note 09/27/20 09/27/20 09/27/20 17:11 19:10 19:29 WBC RBC Hgb Hct MCV MCH MCHC RDW Plt Count MPV Immature Gran % (Auto) Neut % (Auto) Lymph % (Auto) [place] % (Auto) Eos % (Auto) Baso % (Auto) Lymph # (Auto) [place] # (Auto) Eos # (Auto) Baso # (Auto) Abs Immat Gran (auto) Absolute Neuts (auto) Absolute Nucleated RBC Nucleated RBC % (auto) PT INR APTT Hold Blue Top Sodium Potassium Chloride Carbon Dioxide Anion Gap BUN Creatinine Estim Creat Clear Calc Estimated GFR POC Glucose 171 H Random Glucose Lactic Acid Calcium Magnesium Total Bilirubin Direct Bilirubin AST ALT Alkaline Phosphatase Troponin I High Sens 24.8 B-Natriuretic Peptide Total Protein Albumin Procalcitonin 0.04 COVID-19 (ELIER) COVID-19 [employer] 09/28/20 09/28/20 09/28/20 07:28 08:18 11:51 WBC RBC Hgb Hct MCV MCH MCHC RDW Plt Count MPV Immature Gran % (Auto) Neut % (Auto) Lymph % (Auto) [place] % (Auto) Eos % (Auto) Baso % (Auto) Lymph # (Auto) [place] # (Auto) Eos # (Auto) Baso # (Auto) Abs Immat Gran (auto) Absolute Neuts (auto) Absolute Nucleated RBC Nucleated RBC % (auto) PT INR APTT Hold Blue Top Sodium 132 L Potassium 5.5 H D Chloride 100 Carbon Dioxide 18 L Anion Gap 20 BUN 40 H Creatinine 1.67 H Estim Creat Clear Calc 52.3 Estimated GFR 42 POC Glucose 370 H* 361 H* Random Glucose 370 H* Lactic Acid Calcium 8.9 D Magnesium Total Bilirubin Direct Bilirubin AST ALT Alkaline Phosphatase Troponin I High Sens B-Natriuretic Peptide Total Protein Albumin Procalcitonin COVID-19 (ELIER) COVID-[employer] 09/28/20 14:58 WBC 14.6 H RBC 4.99 Hgb 15.8 Hct 47.6 MCV 95.4 MCH 31.7 MCHC 33.2 RDW 13.9 Plt Count MPV Immature Gran % (Auto) 0.3 Neut % (Auto) 91.3 H Lymph % (Auto) 4.0 L [place] % (Auto) 4.3 Eos % (Auto) 0.0 Baso % (Auto) 0.1 Lymph # (Auto) 0.6 L [place] # (Auto) 0.6 Eos # (Auto) 0.0 Baso # (Auto) 0.0 Abs Immat Gran (auto) 0.05 H Absolute Neuts (auto) 13.3 H Absolute Nucleated RBC 0.000 Nucleated RBC % (auto) 0.0 PT INR APTT Hold Blue Top Sodium Potassium Chloride Carbon Dioxide Anion Gap BUN Creatinine Estim Creat Clear Calc Estimated GFR POC Glucose Random Glucose Lactic Acid Calcium Magnesium Total Bilirubin Direct Bilirubin AST ALT Alkaline Phosphatase Troponin I High Sens B-Natriuretic Peptide Total Protein Albumin Procalcitonin COVID-19 (ELIER) COVID-19 [employer] Assessment and Plan (1) Acute exacerbation of chronic obstructive airways disease: Status: Acute (2) Acute respiratory failure with hypoxia: Status: Acute (3) LAUREN (acute kidney injury): Status: Acute Assessment and Plan: 64yo M with COPD, HFpEF, aortic stenosis, HLD, HTN, and DM2 presenting with dyspnea, cough, and sputum production admitted for hypoxia/COPD exacerbation # acute/chronic hypoxic respiratory failure - supplemental oxygen; wean as tolerated. At baseline, patient uses 2 L at night only # COPD exacerbation - IV glucocorticoid d#2, scheduled/prn nebs. continue ICS/LABA - azithromycin d#2 # LAUREN - continue IV fluid hydration, hold furosemide, monitor BMP # chest wall pain - lidocaine patch # HFpEF, chronic - monitor for volume overload- giving hydration and holding diuretic for LAUREN # HLD - statin # DM2 - Lantus/Humalog, A1c # VTE ppx - LMWH
[2020-09-28 15:25] LABS: D Dimer < 200 NG/ML
[2020-09-28 15:48] LABS: SLIDE REVIEW VERIFIED
[2020-09-28] MEDS: Thiamine HCL 100 MG TABLET PO (16:33)
[2020-09-28] MEDS: Folic Acid 1 MG TABLET PO (16:33)
[2020-09-28 16:34] LABS: Glucose, Whole Blood 372 mg/dL (60-115)
[2020-09-28 20:43] LABS: Glucose, Whole Blood 342 mg/dL (60-115)
[2020-09-28] MEDS: Atorvastatin Calcium 10 MG TABLET PO (20:58)
[2020-09-28] MEDS: Aspirin Enteric Coated 81 MG TABLET.DR PO (20:58)
[2020-09-29] VITALS (7 sets, daily range): BP systolic 109–158; BP diastolic 53–80; PULSE 67–90; RESP 16–21; TEMP 36.2–36.5; O2SAT 94–99
[2020-09-29] MEDS: Enoxaparin Sodium 40 MG/0.4 ML SYRINGE SUBCUT (03:07)
[2020-09-29] MEDS: Omeprazole 20 MG CAPSULE.DR PO (05:36)
[2020-09-29] MEDS: methylPREDNISolone Sod Succ 40 MG/ML VIAL IVPUSH ×2 (05:36→16:03)
[2020-09-29] MEDS: Lactated Ringers 1,000 ML 100 ML IVCONT (05:59)
[2020-09-29 07:42] LABS: Glucose, Whole Blood 227 mg/dL (60-115)
[2020-09-29] MEDS: busPIRone HCl 5 MG TABLET PO ×2 (08:11→20:39)
[2020-09-29] MEDS: Insulin Lispro 100 UNIT/ML 3 ML VIAL SUBCUT ×4 (08:11→20:40)
[2020-09-29] MEDS: Azithromycin 500 MG TABLET PO (08:11)
[2020-09-29] MEDS: Multivitamin TABLET 1 TAB PO (08:11)
[2020-09-29] MEDS: Gabapentin 300 MG CAPSULE 600 MG PO ×2 (08:11→20:39)
[2020-09-29] MEDS: 0.9 % Sodium Chloride Flush 3 ML SYRINGE IVFLUSH ×4 (08:15→20:40)
[2020-09-29] MEDS: Morphine Sulfate 2 MG/ML CARTRIDGE IVPUSH ×3 (08:21→20:02)
[2020-09-29] MEDS: guaiFENesin DM 100/10/5 ML 5 ML SYRUP PO ×3 (08:21→20:03)
[2020-09-29 08:42] LABS: Anion Gap 17 (12-20); Blood Urea Nitrogen 29 mg/dL (9-16); Carbon Dioxide 27 mmol/L (22-29); Chloride 100 mmol/L (96-108); Creatinine Clr Calc Pharmacy 80.8; Estimated Glomerular Filt Rate > 60; Glucose Random 229 mg/dL (60-115); Potassium 4.5 mmol/L (3.3-5.1); Sodium 139 mmol/L (135-145)
[2020-09-29 08:50] LABS: Estimated Average Glucose 171 mg/dL; Hemoglobin A1c % 7.6 %
[2020-09-29 09:02] LABS: Procalcitonin 0.02 ng/mL
[2020-09-29 12:04] LABS: Glucose, Whole Blood 327 mg/dL (60-115)
--- NOTE | 2020-09-29 15:33 | P.PNIM_ITS ---
Subjective Subjective Date of Service: 09/29/20 Interval History: still c/o severe coughing, dyspnea, and wheezing Physical Exam Vital Signs: Vital Signs: Last Vital Signs Temp 97.7 F 09/29/20 15: Pulse 86 09/29/20 15:21 Resp 18 09/29/20 15:21 BP 150/80 H 09/29/20 15:21 Pulse Ox 94 09/29/20 15:21 Body Mass Index 34.9 Gen: coughing, mild resp distress HEENT: sclera anicteric, moist mucus membranes Neck: supple Lungs: bilateral inspiratory and expiratory wheezing Heart: regular rate and rhythm, no murmurs Abd: soft, non-tender, non-distended Ext: no edema Skin: warm/well-perfused Neuro: alert and oriented x3, no focal findings Psych: appropriate affect Objective Data Current Medications Generic Name Dose Route Start Last Admin Trade Name Freq PRN Reason Stop Dose Admin Acetaminophen 650 mg 09/28/20 01:12 09/28/20 02:28 Acetaminophen 325 Mg Tablet PO 650 mg Q6H PRN Administration Pain, Mild (Pain Scale 1-3) Al Hydroxide/Mg Hydroxide 30 ml 09/28/20 11:28 09/28/20 13:37 Magnesium Hydrox/Alum Hydrox 30 Ml Oral.Susp PO 30 ml Q4H PRN Administration Indigestion Albuterol/Ipratropium 3 ml 09/28/20 01:12 09/28/20 05:10 Albuterol/Iprat 2.5/0.5mg 3 Ml Ampul.Neb INHALE 3 ml RQ4H PRN Administration Shortness of Breath/Wheezing Aspirin 81 mg 09/28/20 21:00 09/28/20 20:58 Aspirin Enteric Coated 81 Mg Tablet.Dr PO 81 mg BEDTIME JOURDAN Administration Atorvastatin Calcium 10 mg 09/28/20 21:00 09/28/20 20:58 Atorvastatin Calcium 10 Mg Tablet PO 10 mg BEDTIME JOURDAN Administration Azithromycin 500 mg 09/28/20 09:00 09/29/20 08:11 Azithromycin 500 Mg Tablet PO 500 mg Q24H JOURDAN Administration Benzonatate 100 mg 09/28/20 05:53 09/28/20 08:38 Benzonatate 100 Mg Capsule PO 100 mg TID PRN Administration Cough Buspirone HCl 5 mg 09/28/20 01:12 09/29/20 08:11 Buspirone Hcl 5 Mg Tablet PO 5 mg BID [facility] Administration Docusate Sodium 100 mg 09/28/20 01:12 Docusate Sodium 100 Mg Capsule PO DAILY PRN Constipation Enoxaparin Sodium 40 mg 09/28/20 02:00 09/29/20 03:07 Enoxaparin Sodium 40 Mg/0.4 Ml Syringe SUBCUT 40 mg Q24H JOURDAN Administration Fluticasone Propionate 2 spray 09/28/20 11:27 Fluticasone Propionate Nasal 16 Gm [place] NOSTRIL-B DAILY PRN Allergy Symptoms Fluticasone/Vilanterol 1 puff 09/29/20 08:00 09/29/20 11:56 Fluticasone/Vilanterol 200/25 Blst.W.Dev INHALE Not Given RDAILY [facility] Folic Acid 1 mg 09/28/20 18:00 09/28/20 16:33 Folic Acid 1 Mg Tablet PO 1 mg DAILY@1800 [facility] Administration Gabapentin 600 mg 09/28/20 01:12 09/29/20 15:01 Gabapentin 300 Mg Capsule PO Not Given TID JOURDAN Guaifenesin/Dextromethorphan 5 ml 09/28/20 13:54 09/29/20 15:00 Guaifenesin Dm 100/10/5 Ml 5 Ml Syrup PO 5 ml Q4H PRN Administration cough Insulin Glargine 50 unit 09/29/20 21:00 Insulin Glargine,Hum.Rec.Anlog 100 Unit/Ml 10 Ml Vial SUBCUT BEDTIME [facility] Insulin Human Lispro 0 unit 09/28/20 07:30 09/29/20 12:17 Insulin Lispro 100 Unit/Ml 3 Ml Vial SUBCUT 10 unit QIDACHS [facility] Administration Protocol Lidocaine 1 patch 09/28/20 10:30 09/29/20 08:16 Lidocaine 4 % Patch Adh..Patch TRANSDERMA Not Given DAILY [facility] Protocol Methylprednisolone Sodium Succinate 40 mg 09/28/20 05:00 09/29/20 05:36 Methylprednisolone Sod Succ 40 Mg/Ml Vial IVPUSH 40 mg Q12H JOURDAN Administration Morphine Sulfate 2 mg 09/28/20 10:21 09/29/20 08:21 Morphine Sulfate 2 Mg/Ml Cartridge IVPUSH 2 mg Q4H PRN Administration pain,severe Multivitamins/Vitamin C 1 tab 09/28/20 09:00 09/29/20 08:11 Multivitamin Tablet PO 1 tab DAILY [facility] Administration Non-Formulary Medication 1 drop 09/28/20 09:00 Loteprednol Etabonate EYE-BOTH TID [facility] Non-Formulary Medication 50 mg 09/28/20 21:00 Celecoxib PO BID [facility] Omeprazole 20 mg 09/28/20 06:30 09/29/20 05:36 Omeprazole 20 Mg Capsule. PO 20 mg DAILY@0630 [facility] Administration Ondansetron HCl 4 mg 09/28/20 01:12 Ondansetron Hcl 4 Mg/2 Ml Vial IVPUSH Q8H PRN Nausea and Vomiting Pharmacy Consult 1 each 09/27/20 15:59 Consult Rx Perform Med Rec MISCELLANE ONCE PRN Consult order Quetiapine Fumarate 150 mg 09/28/20 01:12 09/28/20 21:11 Quetiapine Fumarate 50 Mg Tablet PO Not Given BEDTIME [facility] Sodium Chloride 3 ml 09/28/20 01:12 09/29/20 08:15 0.9 % Sodium Chloride Flush 3 Ml Syringe IVFLUSH 3 ml QSHIFT [facility] Administration Thiamine HCl 100 mg 09/28/20 18:00 09/28/20 16:33 Thiamine Hcl 100 Mg Tablet PO 100 mg DAILY@1800 [facility] Administration Labs CBC & Chem 7: 09/28/20 14:58 09/29/20 07:21 Microbiology Microbiology Results: Microbiology 09/27/20 17:11 Blood - Venous Blood Culture - Preliminary No growth after 24 hours. 09/27/20 17:11 Blood - Venous Blood Culture - Preliminary No growth after 24 hours. Assessment and Plan (1) Acute exacerbation of chronic obstructive airways disease: Status: Acute (2) Acute respiratory failure with hypoxia: Status: Acute (3) LAUREN (acute kidney injury): Status: Acute Assessment and Plan: hospital d#3 64yo M with COPD, HFpEF, aortic stenosis, HLD, HTN, and DM2 presenting with dyspnea, cough, and sputum production admitted for hypoxia/COPD exacerbation # acute/chronic hypoxic respiratory failure - supplemental oxygen; wean as tolerated; at baseline, patient uses 2 L at night only # COPD exacerbation - IV glucocorticoid d#3, scheduled/prn nebs. continue ICS/LABA - azithromycin d#2 # LAUREN, prerenal - resolved with IV fluid hydration + holding lisinopril; resume lisinopril + recheck BMP in a few days # chest wall pain - secondary to coughing; place lidocaine patch # HFpEF, chronic - monitor for volume overload; resume lisinopril # HLD - statin # DM2 with steroid-induced hyperglycemia - increase Lantus/Humalog - A1c 7.6 # VTE ppx - LMWH # dispo - PT eval
[2020-09-29] MEDS: lisinopriL 10 MG TABLET PO (16:07)
[2020-09-29 16:44] LABS: Glucose, Whole Blood 274 mg/dL (60-115)
[2020-09-29] MEDS: Folic Acid 1 MG TABLET PO (16:55)
[2020-09-29] MEDS: Thiamine HCL 100 MG TABLET PO (16:55)
[2020-09-29] MEDS: Benzonatate 100 MG CAPSULE PO (18:23)
[2020-09-29] MEDS: Albuterol/Iprat 2.5/0.5MG 3 ML AMPUL.NEB INHALE (19:04)
[2020-09-29 20:23] LABS: Glucose, Whole Blood 283 mg/dL (60-115)
[2020-09-29] MEDS: Atorvastatin Calcium 10 MG TABLET PO (20:39)
[2020-09-29] MEDS: Aspirin Enteric Coated 81 MG TABLET.DR PO (20:39)
[2020-09-29] MEDS: Insulin Glargine,Hum.rec.anlog 100 UNIT/ML 10 ML VIAL 50 UNIT SUBCUT (20:39)
[2020-09-30] VITALS (10 sets, daily range): BP systolic 113–133; BP diastolic 59–73; PULSE 61–89; RESP 16–20; TEMP 35.8–36.6; O2SAT 93–97
[2020-09-30] MEDS: Enoxaparin Sodium 40 MG/0.4 ML SYRINGE SUBCUT (01:50)
[2020-09-30] MEDS: methylPREDNISolone Sod Succ 40 MG/ML VIAL IVPUSH ×2 (05:27→16:46)
[2020-09-30] MEDS: Omeprazole 20 MG CAPSULE.DR PO (05:27)
[2020-09-30] MEDS: Fluticasone/Vilanterol 200/25 BLST.W.DEV 1 PUFF INHALE (07:29)
[2020-09-30] MEDS: Multivitamin TABLET 1 TAB PO (07:44)
[2020-09-30] MEDS: Insulin Lispro 100 UNIT/ML 3 ML VIAL SUBCUT ×7 (07:44→21:01)
[2020-09-30] MEDS: lisinopriL 10 MG TABLET PO (07:44)
[2020-09-30] MEDS: Azithromycin 500 MG TABLET PO (07:44)
[2020-09-30] MEDS: busPIRone HCl 5 MG TABLET PO ×2 (07:44→20:59)
[2020-09-30] MEDS: Gabapentin 300 MG CAPSULE 600 MG PO ×2 (07:44→20:59)
[2020-09-30] MEDS: guaiFENesin DM 100/10/5 ML 5 ML SYRUP PO ×3 (07:45→19:35)
[2020-09-30] MEDS: Morphine Sulfate 2 MG/ML CARTRIDGE IVPUSH ×3 (07:45→19:35)
[2020-09-30 08:14] LABS: Glucose, Whole Blood 209 mg/dL (60-115)
[2020-09-30 08:36] LABS: Anion Gap 13 (12-20); Blood Urea Nitrogen 26 mg/dL (9-16); Carbon Dioxide 24 mmol/L (22-29); Chloride 102 mmol/L (96-108); Creatinine Clr Calc Pharmacy 101.5; Estimated Glomerular Filt Rate > 60; Glucose Random 207 mg/dL (60-115); Potassium 4.4 mmol/L (3.3-5.1); Sodium 135 mmol/L (135-145)
[2020-09-30 08:42] LABS: Calcium 8.7 mg/dL (8.4-10.2)
[2020-09-30 11:56] LABS: Glucose, Whole Blood 313 mg/dL (60-115)
--- NOTE | 2020-09-30 12:04 | P.PNIM_ITS ---
Subjective Subjective Date of Service: 09/30/20 Interval History: violent coughing fits associated with lightheadedness Cardiovascular Cardiovascular: Reports no additional cardiovascular complaints Gastrointestinal Gastrointestinal: Reports no additional gastrointestinal complaints Physical Exam Vital Signs: Vital Signs: Last Vital Signs Temp 96.5 F L 09/30/20 07:42 Pulse 72 09/30/20 11:30 Resp 20 09/30/20 07:42 BP 131/73 09/30/20 11:30 Pulse Ox 96 09/30/20 07:42 Body Mass Index 34.9 Gen: coughing, mild resp distress HEENT: sclera anicteric, moist mucus membranes Neck: supple Lungs: bilateral inspiratory and expiratory wheezing Heart: regular rate and rhythm, no murmurs Abd: soft, non-tender, non-distended Ext: no edema Skin: warm/well-perfused Neuro: alert and oriented x3, no focal findings Psych: appropriate affect Objective Data Current Medications Generic Name Dose Route Start Last Admin Trade Name Freq PRN Reason Stop Dose Admin Acetaminophen 650 mg 09/28/20 01:12 09/28/20 02:28 Acetaminophen 325 Mg Tablet PO 650 mg Q6H PRN Administration Pain, Mild (Pain Scale 1-3) Al Hydroxide/Mg Hydroxide 30 ml 09/28/20 11:28 09/28/20 13:37 Magnesium Hydrox/Alum Hydrox 30 Ml Oral.Susp PO 30 ml Q4H PRN Administration Indigestion Albuterol/Ipratropium 3 ml 09/28/20 01:12 09/29/20 19:04 Albuterol/Iprat 2.5/0.5mg 3 Ml Ampul.Neb INHALE 3 ml RQ4H PRN Administration Shortness of Breath/Wheezing Aspirin 81 mg 09/28/20 21:00 09/29/20 20:39 Aspirin Enteric Coated 81 Mg Tablet. PO 81 mg BEDTIME JOURDAN Administration Atorvastatin Calcium 10 mg 09/28/20 21:00 09/29/20 20:39 Atorvastatin Calcium 10 Mg Tablet PO 10 mg BEDTIME JOURDAN Administration Azithromycin 500 mg 09/28/20 09:00 09/30/20 07:44 Azithromycin 500 Mg Tablet PO 500 mg Q24H JOURDAN Administration Benzonatate 100 mg 09/28/20 05:53 09/29/20 18:23 Benzonatate 100 Mg Capsule PO 100 mg TID PRN Administration Cough Buspirone HCl 5 mg 09/28/20 01:12 09/30/20 07:44 Buspirone Hcl 5 Mg Tablet PO 5 mg BID JOURDAN Administration Docusate Sodium 100 mg 09/28/20 01:12 Docusate Sodium 100 Mg Capsule PO DAILY PRN Constipation Enoxaparin Sodium 40 mg 09/28/20 02:00 09/30/20 01:50 Enoxaparin Sodium 40 Mg/0.4 Ml Syringe SUBCUT 40 mg Q24H JOURDAN Administration Fluticasone Propionate 2 spray 09/28/20 11:27 Fluticasone Propionate Nasal 16 Gm [place] NOSTRIL-B DAILY PRN Allergy Symptoms Fluticasone/Vilanterol 1 puff 09/29/20 08:00 09/30/20 07:29 Fluticasone/Vilanterol 200/25 Blst.W.Dev INHALE 1 puff RDAILY [facility] Administration Folic Acid 1 mg 09/28/20 18:00 09/29/20 16:55 Folic Acid 1 Mg Tablet PO 1 mg DAILY@1800 [facility] Administration Gabapentin 600 mg 09/28/20 01:12 09/30/20 07:44 Gabapentin 300 Mg Capsule PO 600 mg TID JOURDAN Administration Guaifenesin/Dextromethorphan 5 ml 09/28/20 13:54 09/30/20 07:45 Guaifenesin Dm 100/10/5 Ml 5 Ml Syrup PO 5 ml Q4H PRN Administration cough Insulin Glargine 50 unit 09/29/20 21:00 09/29/20 20:39 Insulin Glargine,Hum.Rec.Anlog 100 Unit/Ml 10 Ml Vial SUBCUT 50 unit BEDTIME [facility] Administration Insulin Human Lispro 0 unit 09/28/20 07:30 09/30/20 11:55 Insulin Lispro 100 Unit/Ml 3 Ml Vial SUBCUT 10 unit QIDACHS [facility] Administration Protocol Insulin Human Lispro 5 unit 09/30/20 11:30 09/30/20 11:55 Insulin Lispro 100 Unit/Ml 3 Ml Vial SUBCUT 5 unit QIDACHS [facility] Administration Lidocaine 1 patch 09/28/20 10:30 09/30/20 07:45 Lidocaine 4 % Patch Adh..Patch TRANSDERMA Not Given DAILY [facility] Protocol Lisinopril 10 mg 09/29/20 16:00 09/30/20 07:44 Lisinopril 10 Mg Tablet PO 10 mg DAILY [facility] Administration Protocol Methylprednisolone Sodium Succinate 40 mg 09/28/20 05:00 09/30/20 05:27 Methylprednisolone Sod Succ 40 Mg/Ml Vial IVPUSH 40 mg Q12H [facility] Administration Morphine Sulfate 2 mg 09/28/20 10:21 09/30/20 07:45 Morphine Sulfate 2 Mg/Ml Cartridge IVPUSH 2 mg Q4H PRN Administration pain,severe Multivitamins/Vitamin C 1 tab 09/28/20 09:00 09/30/20 07:44 Multivitamin Tablet PO 1 tab DAILY [facility] Administration Non-Formulary Medication 1 drop 09/28/20 09:00 Loteprednol Etabonate EYE-BOTH TID [facility] Non-Formulary Medication 50 mg 09/28/20 21:00 Celecoxib PO BID [facility] Omeprazole 20 mg 09/28/20 06:30 09/30/20 05:27 Omeprazole 20 Mg Capsule. PO 20 mg DAILY@0630 [facility] Administration Ondansetron HCl 4 mg 09/28/20 01:12 Ondansetron Hcl 4 Mg/2 Ml Vial IVPUSH Q8H PRN Nausea and Vomiting Pharmacy Consult 1 each 09/27/20 15:59 Consult Rx Perform Med Rec MISCELLANE ONCE PRN Consult order Quetiapine Fumarate 150 mg 09/28/20 01:12 09/29/20 20:44 Quetiapine Fumarate 50 Mg Tablet PO Not Given BEDTIME [facility] Sodium Chloride 3 ml 09/28/20 01:12 09/29/20 20:40 0.9 % Sodium Chloride Flush 3 Ml Syringe IVFLUSH 3 ml QSHIFT [facility] Administration Thiamine HCl 100 mg 09/28/20 18:00 09/29/20 16:55 Thiamine Hcl 100 Mg Tablet PO 100 mg DAILY@1800 [facility] Administration Labs CBC & Chem 7: 09/28/20 14:58 09/30/20 06:55 Microbiology Microbiology Results: Microbiology 09/27/20 17:11 Blood - Venous Blood Culture - Preliminary No growth after 48 hours. 09/27/20 17:11 Blood - Venous Blood Culture - Preliminary No growth after 48 hours. Assessment and Plan (1) Acute exacerbation of chronic obstructive airways disease: Status: Acute (2) Acute respiratory failure with hypoxia: Status: Acute (3) LAUREN (acute kidney injury): Status: Acute Assessment and Plan: hospital d#4 64yo M with COPD, HFpEF, aortic stenosis, HLD, HTN, and DM2 presenting with dyspnea, cough, and sputum production admitted for hypoxia/COPD exacerbation cough syncope overall improved but still having coughing fits and high risk for cough syncope and mechanical trauma acute/chronic hypoxic respiratory failure - supplemental oxygen; wean as tolerated; at baseline, patient uses 2 L at night only COPD exacerbation - IV glucocorticoid d#4, scheduled/prn nebs. continue ICS/LABA - azithromycin d#3 LAUREN, prerenal - resolved with IV fluid hydration + holding lisinopril; resumed lisinopril chest wall pain - secondary to coughing; place lidocaine patch HFpEF, chronic - monitor for volume overload; resume lisinopril HLD - statin DM2 with steroid-induced hyperglycemia - increase Lantus/Humalog - A1c 7.6 # VTE ppx - LMWH # dispo - PT eval
[2020-09-30] MEDS: Albuterol/Iprat 2.5/0.5MG 3 ML AMPUL.NEB INHALE (14:25)
[2020-09-30] MEDS: 0.9 % Sodium Chloride Flush 3 ML SYRINGE IVFLUSH ×2 (14:45→20:59)
[2020-09-30 16:30] LABS: Glucose, Whole Blood 293 mg/dL (60-115)
[2020-09-30] MEDS: Folic Acid 1 MG TABLET PO (16:47)
[2020-09-30] MEDS: Thiamine HCL 100 MG TABLET PO (16:47)
[2020-09-30 20:38] LABS: Glucose, Whole Blood 304 mg/dL (60-115)
[2020-09-30] MEDS: Atorvastatin Calcium 10 MG TABLET PO (20:59)
[2020-09-30] MEDS: Aspirin Enteric Coated 81 MG TABLET.DR PO (20:59)
[2020-09-30] MEDS: Insulin Glargine,Hum.rec.anlog 100 UNIT/ML 10 ML VIAL 50 UNIT SUBCUT (21:00)
[2020-10-01] MEDS: Enoxaparin Sodium 40 MG/0.4 ML SYRINGE SUBCUT (01:41)
[2020-10-01 03:27] VITALS: BP 131/62; PULSE 63; RESP 19; TEMP 36.2; O2SAT 99
[2020-10-01] MEDS: Omeprazole 20 MG CAPSULE.DR PO (05:41)
[2020-10-01] MEDS: methylPREDNISolone Sod Succ 40 MG/ML VIAL IVPUSH ×2 (05:41→16:25)
[2020-10-01 07:30] VITALS: O2SAT 95
[2020-10-01] MEDS: Fluticasone/Vilanterol 200/25 BLST.W.DEV 1 PUFF INHALE (07:30)
[2020-10-01 07:51] LABS: Glucose, Whole Blood 230 mg/dL (60-115)
[2020-10-01 08:00] VITALS: BP 137/66; PULSE 66; RESP 18; TEMP 36.2; O2SAT 94
[2020-10-01] MEDS: Insulin Lispro 100 UNIT/ML 3 ML VIAL SUBCUT ×6 (08:03→16:25)
[2020-10-01] MEDS: lisinopriL 10 MG TABLET PO (08:06)
[2020-10-01] MEDS: busPIRone HCl 5 MG TABLET PO (08:06)
[2020-10-01] MEDS: Azithromycin 500 MG TABLET PO (08:06)
[2020-10-01] MEDS: Gabapentin 300 MG CAPSULE 600 MG PO (08:06)
[2020-10-01] MEDS: Multivitamin TABLET 1 TAB PO (08:06)
[2020-10-01] MEDS: guaiFENesin DM 100/10/5 ML 5 ML SYRUP PO (08:06)
[2020-10-01] MEDS: 0.9 % Sodium Chloride Flush 3 ML SYRINGE IVFLUSH ×2 (08:08→16:25)
[2020-10-01] MEDS: Morphine Sulfate 2 MG/ML CARTRIDGE IVPUSH (08:40)
[2020-10-01 11:27] LABS: Glucose, Whole Blood 295 mg/dL (60-115)
[2020-10-01 11:58] VITALS: BP 122/58; PULSE 78; RESP 19; TEMP 36.2; O2SAT 94
[2020-10-01] MEDS: guaiFEN/Codeine SF 200/20/10ML 10 ML LIQUID PO (12:07)
[2020-10-01 13:58] LABS: COVID-19 Test Negative (Negative); IDNOW Serial# 9DD0AD1C
[2020-10-01 15:28] VITALS: BP 134/60; PULSE 78; RESP 17; TEMP 36.1; O2SAT 94
--- NOTE | 2020-10-01 16:09 | PM.DS ---
DS: Providers Provider Date of Service: 10/02/20 Date of admission: 09/27/20 22:03 Primary care physician: Unknown Physician DS: Diagnosis Discharge Diagnosis (1) Acute exacerbation of chronic obstructive airways disease: Status: Acute (2) Acute respiratory failure with hypoxia: Status: Acute (3) LAUREN (acute kidney injury): Status: Acute DS: Medications Discharge Medications Home Medications: Home Medications Medication Instructions Recorded Confirmed aspirin 81 mg tablet,delayed 81 mg PO BEDTIME 06/03/20 09/27/20 release buspirone 5 mg tablet 5 mg PO BID 06/03/20 09/27/20 celecoxib 50 mg capsule 50 mg PO BID cap 06/03/20 09/27/20 fluticasone propionate 50 1 - 2 spray INTRANASAL DAILY PRN 06/03/20 09/27/20 mcg/actuation nasal spray,suspension folic acid 1 mg tablet 1 mg PO DAILY@1800 06/03/20 09/27/20 insulin aspart U-100 100 unit/mL See Rx Instructions .ROUTE .COMPLEX 06/03/20 09/27/20 subcutaneous solution insulin glargine 100 unit/mL 45 unit SUBCUT BEDTIME 06/03/20 09/27/20 subcutaneous solution lisinopril 10 mg tablet 10 mg PO QAM 06/03/20 09/27/20 multivitamin 1 tab PO QAM 06/03/20 09/27/20 omega-3 fatty acids-fish oil 340 1 cap PO QAM 06/03/20 09/27/20 mg-1,000 mg capsule omeprazole 20 mg capsule,delayed 20 mg PO QAM 06/03/20 09/27/20 release simvastatin 20 mg tablet 20 mg PO BEDTIME 06/03/20 09/27/20 thiamine HCl (vitamin B1) 100 mg 100 mg PO DAILY@1800 06/03/20 09/27/20 tablet albuterol sulfate 1 amp INHALATION QID 09/26/20 09/27/20 albuterol sulfate 2 puff PO Q4-6H PRN 09/26/20 09/27/20 empagliflozin [Jardiance] 1 tab PO QAM 09/26/20 09/27/20 fluticasone propion-salmeterol 1 inh INHALATION BID 09/26/20 09/27/20 [Advair Diskus] gabapentin 2 cap PO TID 09/26/20 09/27/20 loteprednol etabonate 1 drp OPHTHALMIC (EYE) TID 09/26/20 09/27/20 quetiapine 3 tab PO BEDTIME 09/27/20 09/27/20 Previous Rx's Medication Instructions Recorded codeine-guaifenesin 10 ml PO Q6H PRN #118 ml 10/01/20 oxycodone 5 mg PO BID PRN #4 cap 10/01/20 DS: Summary Hospital Course Hospital Course: 64-year-old male with past medical history of COPD, diabetes, CHF, HLD, HTN, nonrheumatic aortic valve stenosis, who presents to the hospital with complaints of shortness of breath, cough, and sputum production. Patient reports that his symptoms started about a week ago, he is also complaining of chest wall pain as well as abdominal wall pain from coughing, patient denies any sick contacts or recent travel. No fever, no chills, no abdominal pain nausea or vomiting, no diarrhea constipation, no urinary symptoms and no lower extremity edema. Patient apparently was 88 on room air for EMS. Other vitals were significant for temp of 98.2?, heart rate of 101, respiratory rate of 20, blood pressure of 111, satting 94% on room air Labs are significant for WBC count of 16.5, BUN of 31, creatinine of 1.6 with a baseline of 1.1 , high sensitivity troponin of 20.2 with repeat of 24.8, BNP of 26, procalcitonin of 0.04, COVID-19 negative CXR no evidence for acute disease in the chest pmhx as below and confirmed w pt. Hospital Course problem delaney section: Patient came with COPD exacerbation-subsequently started on IV steroids, nebs, oxygen, and azithromycin: Subsequently patient seems to be improved significantly now saturating fine on room air and lungs are having good air entry: seems to be improved . Switched to p.o. steroids and antibiotics. Cough delaney added Hycodan for now because having cough spells. LAUREN has resolved with hydration, his lisinopril is resumed., monitor BMP in 2-3 days in rehab and further management outpatient as per rehab. Above management discussed with the patient in detail length he understand and in agreement with the above plan, time spent 50 minutes and 50% time spent on counseling. Significant findings: As above. Procedures performed: None. Treatment and response: As above. Complications: None. Time Spent with Patient Time attestation: Total time spent providing and/or coordinating discharge services: Discharge coordination time: Greater than 30 minutes Quality: Stroke Does the patient have a stroke diagnosis?: No Physical Exam Vital Signs: Vital Signs: Last Vital Signs Temp 97 F 10/01/20 15:28 Pulse 78 10/01/20 15:28 Resp 17 10/01/20 15:28 BP 134/60 10/01/20 15:28 Pulse Ox 94 10/01/20 15:28 Body Mass Index 34.9 physical exam: HEENT: sclera anicteric, moist mucus membranes Neck: supple Lungs: bilateral inspiratory and expiratory wheezing Heart: regular rate and rhythm, no murmurs Abd: soft, non-tender, non-distended Ext: no edema Skin: warm/well-perfused Neuro: alert and oriented x3, no focal findings Psych: appropriate affect DS: Data Data Completed and Pending Labs on day of discharge: Laboratory Results - last 24 hr 09/30/20 09/30/20 10/01/20 16:17 20:26 07:35 POC Glucose 293 H 304 H 230 H COVID-19 (ELIER) COVID-19 Clin Com 10/01/20 10/01/20 11:14 13:30 POC Glucose 295 H COVID-19 (ELIER) Negative COVID-19 Clin Com See Note Preliminary micro results at discharge 09/27/20 17:11 Blood Culture - Preliminary Blood - Venous No growth after 48 hours. 09/27/20 17:11 Blood Culture - Preliminary Blood - Venous No growth after 48 hours. Discharge Plan Discharge Patient Disposition: Xfer SNF Discharge Diagnosis: copd excerebation Referrals: [facility] [Outside] - 1 Week (short term rehab, pulmonary rehab) Physician,Unknown [Primary Care Provider] - 1 Week Discharge Medications: New Breo Ellipta 200-25 mcg/dose Blister With Device 1 ea inhalation RDAILY Qty: 1 RF: 0 codeine-guaifenesin 10-100 mg/5 mL Liquid 10 ml PO Q6H PRN (Reason: Cough) Qty: 118 RF: 0 prednisone 20 mg tablet 40 mg PO DAILY Qty: 8 RF: 0 azithromycin 500 mg Tablet 500 mg PO Q24H Qty: 3 RF: 0 docusate sodium [Colace] 100 mg capsule 100 mg PO DAILY Qty: 30 RF: 0 oxycodone 5 mg capsule 5 mg PO BID PRN (Reason: pain) Qty: 4 RF: 0 Continued loteprednol etabonate 0.5 % drops,suspension 1 drp ophthalmic (eye) TID RF: 0 albuterol sulfate 90 mcg/actuation HFA aerosol inhaler 2 puff PO Q4-6H PRN (Reason: dyspnea) RF: 0 albuterol sulfate 2.5 mg /3 mL (0.083 %) solution for nebulization 1 amp inhalation QID RF: 0 gabapentin 300 mg capsule 2 cap PO TID RF: 0 Jardiance 10 mg tablet 1 tab PO QAM RF: 0 quetiapine 50 mg tablet 3 tab PO BEDTIME RF: 0 celecoxib 50 mg capsule 50 mg PO BID RF: 0 omega-3 fatty acids-fish oil 340-1,000 mg capsule 1 cap PO QAM RF: 0 folic acid 1 mg tablet 1 mg PO DAILY@1800 RF: 0 omeprazole 20 mg capsule,delayed release(DR/EC) 20 mg PO QAM RF: 0 lisinopril 10 mg tablet 10 mg PO QAM RF: 0 simvastatin 20 mg tablet 20 mg PO BEDTIME RF: 0 aspirin 81 mg tablet,delayed release (DR/EC) 81 mg PO BEDTIME RF: 0 thiamine HCl (vitamin B1) 100 mg tablet 100 mg PO DAILY@1800 RF: 0 multivitamin Tablet 1 tab PO QAM RF: 0 insulin aspart U-100 100 unit/mL solution See Rx Instructions .ROUTE .COMPLEX RF: 0 insulin glargine 100 unit/mL solution 45 unit subcut BEDTIME RF: 0 buspirone 5 mg tablet 5 mg PO BID RF: 0 fluticasone propionate 50 mcg/actuation spray,suspension 1 - 2 spray intranasal DAILY PRN (Reason: Allergy Symptoms) RF: 0 Discontinued fluticasone propion-salmeterol [Advair Diskus] 250-50 mcg/dose Blister With Device 1 inh INHALATION BID RF: 0 Discharge Orders: Discharge Order (Routine); Ordered 10/01/20 Ordered By: Sidney Ron Diet: advance to usual diet Activity on Discharge: As tolerated Stand Alone Forms: Patient Portal Discharge page Care Plan Goals: Patient came with COPD exacerbation-subsequently started on IV steroids, nebs, oxygen, and azithromycin: Subsequently patient seems to be improved significantly now saturating fine on room air and lungs are having good air entry: seems to be improved . Switched to p.o. steroids and antibiotics. Cough delaney added Hycodan for now because having cough spells. LAUREN has resolved with hydration, his lisinopril is resumed., monitor BMP in 2-3 days in rehab and further management outpatient as per rehab. Health Concerns: As above. Plan of Treatment: As above. Assessment: As above. Discharge Date/Time: 10/01/20 18:26
[2020-10-01 16:16] LABS: Glucose, Whole Blood 296 mg/dL (60-115)
--- NOTE | 2020-10-01 16:18 | MHC.CM.PN ---
PT DISCHARGING TODAY AT 6PM TO [facility], ACTION FOR DENITA SIMONS
[2020-10-01] MEDS: oxyCODONE HCl Immed Release 5 MG TABLET PO (16:33)
[2020-10-01] MEDS: Thiamine HCL 100 MG TABLET PO (16:35)
[2020-10-01] MEDS: Folic Acid 1 MG TABLET PO (16:35)
--- NOTE | 2020-10-01 18:03 | PC.NURSE ---
report called to leigh patel
== END 2020-10-01 18:26 | disposition skilled nursing facility (03) | DRG 191 ==
LOC: HO.ED 19:38 → HO.EDOVER 22:20 → HO.S3 22:32
PROVIDERS: Family Medicine; Internal Medicine; Physician Assistant; Admitting Provider Internal Medicine; Emergency Provider Emergency Medicine; Visit Provider Internal Medicine
DX: J44.1 Chronic obstructive pulmonary disease with (acute) exacerbation (principal); N17.9 Acute kidney failure, unspecified; T82.7XXA Infection and inflammatory reaction due to other cardiac and vascular devices, implants and grafts, initial encounter; I50.32 Chronic diastolic (congestive) heart failure; I11.0 Hypertensive heart disease with heart failure; E11.65 Type 2 diabetes mellitus with hyperglycemia; E78.5 Hyperlipidemia, unspecified; T38.0X5A Adverse effect of glucocorticoids and synthetic analogues, initial encounter; Y92.9 Unspecified place or not applicable; Z20.822 Contact with and (suspected) exposure to COVID-19; Z87.891 Personal history of nicotine dependence; Z79.4 Long term (current) use of insulin; Z79.82 Long term (current) use of aspirin; Z79.51 Long term (current) use of inhaled steroids; Z79.899 Other long term (current) drug therapy
CPT/HCPCS: 36415; 71045; 80048; 80076; 82947; 83036; 83605; 83735; 83880; 84145; 84484; 85025; 85379; 85610; 85730; 87040; 87635; 93005; 93971; 94640; 94644; 96365; 96366; 96368; 96375; 97162; 99285; 99291; J0456; J0696; J1650; J2270; J2920; J2930

== ENCOUNTER 2020-10-02 06:50 | Outpatient (REF) | payer OTHER, SELFPAY ==
[2020-10-02 10:35] LABS: Hematocrit 47.7 % (42-52); Mean Corpuscular HGB Conc 33.5 g/dl (31.0-36.0); Mean Corpuscular Volume 92.4 fL (80-98); Mean Platelet Volume 9.4 fL (9.4-12.4); Platelet Count 242 X10*3/uL (160-400); Red Blood Count 5.16 X10*6/uL (4.60-5.80); Red Cell Distribution Width 13.2 % (11.0-16.0); White Blood Count 12.7 X10*3/uL (4.8-10.8)
[2020-10-02 10:50] LABS: Alanine Aminotransferase 15 U/L (0-40); Albumin Level 3.9 g/dL (3.5-5.0); Alkaline Phosphatase 71 U/L (39-117); Anion Gap 14 (12-20); Aspartate Amino Transferase 13 U/L (5-37); Bilirubin Total 0.5 mg/dL (0.0-1.0); Blood Urea Nitrogen 28 mg/dL (9-16); Calcium 8.6 mg/dL (8.4-10.2); Carbon Dioxide 26 mmol/L (22-29); Chloride 97 mmol/L (96-108); Estimated Glomerular Filt Rate > 60; Glucose Random 262 mg/dL (60-115); Potassium 4.1 mmol/L (3.3-5.1); Sodium 133 mmol/L (135-145)
== END 2020-10-02 06:51 | disposition home or self-care (01) ==
LOC: HO.MMNH1L 06:50
PROVIDERS: Visit Provider Family Medicine
DX: Z13.89 Encounter for screening for other disorder (principal)
CPT/HCPCS: 36415; 80053; 85027

== ENCOUNTER 2020-10-08 | Outpatient (REF) | payer OTHER, SELFPAY ==
[2020-10-08 07:21] LABS: Anion Gap 15 (12-20); Blood Urea Nitrogen 28 mg/dL (9-16); Calcium 8.2 mg/dL (8.4-10.2); Carbon Dioxide 23 mmol/L (22-29); Chloride 104 mmol/L (96-108); Estimated Glomerular Filt Rate > 60; Glucose Random 98 mg/dL (60-115); Potassium 4.3 mmol/L (3.3-5.1); Sodium 138 mmol/L (135-145)
[2020-10-08 07:34] LABS: Hematocrit 43.1 % (42-52); Hemoglobin 14.3 g/dl (14.0-18.0); Mean Corpuscular HGB Conc 33.2 g/dl (31.0-36.0); Mean Corpuscular Hemoglobin 31.6 pg (27.0-33.0); Mean Corpuscular Volume 95.1 fL (80-98); Platelet Count 193 X10*3/uL (160-400); Red Blood Count 4.53 X10*6/uL (4.60-5.80); Red Cell Distribution Width 13.2 % (11.0-16.0); White Blood Count 10.5 X10*3/uL (4.8-10.8)
== END 2020-10-08 00:01 | disposition home or self-care (01) ==
LOC: HO.MMNH1L
PROVIDERS: Visit Provider Family Medicine
DX: R06.02 Shortness of breath (principal)
CPT/HCPCS: 36415; 80048; 85027

== ENCOUNTER 2020-10-11 13:53 | Emergency (ER) | payer OTHER, SELFPAY ==
[2020-10-11 14:03] VITALS: BP 108/69; PULSE 85; RESP 18; TEMP 36.8; O2SAT 94; BMI 36.1
[2020-10-11 14:06] VITALS: O2SAT 96
[2020-10-11 14:50] VITALS: BP 108/69; PULSE 85; O2SAT 94
--- NOTE | 2020-10-11 15:02 | MHC.CM.ED ---
Received telephone call from Concepcion at [facility]. Patient was d/c'd from their facility on . Patient declined home VNA at that time. Patient has not been successful at home. Because he declined VNA, their is no PT eval to provide to [facility]. Patient was brought to the ER via EMS. Physical therapy eval completed. Short term rehab is recommended. Patient is agreeable to referral to [facility]. Referral made via allscripts. Continue to monitor for d/c needs.
--- NOTE | 2020-10-11 15:10 | ED.GENADULT ---
HPI - General Adult General Chief complaint: General Medical Stated complaint: DIFF BREATHING Time Seen by Provider: 10/11/20 14:24 Source: patient and EMS Mode of arrival: EMS Limitations: no limitations History of Present Illness HPI narrative: 64-year-old male with a past medical history of COPD on nocturnal oxygen, diabetes, aortic stenosis, heart failure with preserved ejection fracture, EtOH dependence/abuse, and hypertension who presents to the emergency department from home via EMS requesting to have a physical therapy evaluation to go back to [facility]. Patient reports he was seen here on 09/27/20 and was diagnosed with bronchitis and LAUREN was admitted until 10/01/2020 and sent to [facility] up until Wednesday where he was discharged refused VNA services and reports he regretted refusing VNA services due to he is feeling that he needs to go back to [facility] to continue his physical therapy. He reports he called [facility] and they reported that he cannot be accepted back until he has the re-evaluation with physical therapy again that is why the patient is here for today. He denies any dizziness, headaches, worsening cough, shortness of breath, chest pain, palpitations, dyspnea on exertion, orthopnea, abdominal pain, nausea/vomiting/diarrhea/constipation, dysuria, hematuria, black or bloody stools or any other symptoms complaints or concerns at this time. Related Data Home Medications Medication Instructions Recorded Confirmed aspirin 81 mg tablet,delayed 81 mg PO BEDTIME 06/03/20 09/27/20 release buspirone 5 mg tablet 5 mg PO BID 06/03/20 09/27/20 celecoxib 50 mg capsule 50 mg PO BID cap 06/03/20 09/27/20 fluticasone propionate 50 1 - 2 spray INTRANASAL DAILY PRN 06/03/20 09/27/20 mcg/actuation nasal spray,suspension folic acid 1 mg tablet 1 mg PO DAILY@1800 06/03/20 09/27/20 insulin aspart U-100 100 unit/mL See Rx Instructions .ROUTE .COMPLEX 06/03/20 09/27/20 subcutaneous solution insulin glargine 100 unit/mL 45 unit SUBCUT BEDTIME 06/03/20 09/27/20 subcutaneous solution lisinopril 10 mg tablet 10 mg PO QAM 06/03/20 09/27/20 multivitamin 1 tab PO QAM 06/03/20 09/27/20 omega-3 fatty acids-fish oil 340 1 cap PO QAM 06/03/20 09/27/20 mg-1,000 mg capsule omeprazole 20 mg capsule,delayed 20 mg PO QAM 06/03/20 09/27/20 release simvastatin 20 mg tablet 20 mg PO BEDTIME 06/03/20 09/27/20 thiamine HCl (vitamin B1) 100 mg 100 mg PO DAILY@1800 06/03/20 09/27/20 tablet Jardiance 1 tab PO QAM 09/26/20 09/27/20 albuterol sulfate 1 amp INHALATION QID 09/26/20 09/27/20 albuterol sulfate 2 puff PO Q4-6H PRN 09/26/20 09/27/20 gabapentin 2 cap PO TID 09/26/20 09/27/20 loteprednol etabonate 1 drp OPHTHALMIC (EYE) TID 09/26/20 09/27/20 quetiapine 3 tab PO BEDTIME 09/27/20 09/27/20 Previous Rx's Medication Instructions Recorded azithromycin 500 mg PO Q24H #3 tab 10/01/20 codeine-guaifenesin 10 ml PO Q6H PRN #118 ml 10/01/20 docusate sodium [Colace] 100 mg PO DAILY #30 cap 10/01/20 fluticasone furoate-vilanterol 1 ea INHALATION RDAILY #1 ea 10/01/20 [Breo Ellipta] oxycodone 5 mg PO BID PRN #4 cap 10/01/20 prednisone 40 mg PO DAILY #8 tab 10/01/20 Allergies Allergy/AdvReac Type Severity Reaction Status Date / Time ENVIRONMENTAL Allergy Mild SNEEZING, Uncoded 09/26/20 17:14 WATERY EYES Review of Systems Review of Systems: Constitutional : No Weight loss, No Fever, No Chills, No Night Sweats, No Fatigue, No Malaise ENT/Mouth : No Hearing loss, No Ear Pain, No Nasal Congestion, No Sinus Pain, No Hoarseness, No sore throat, No Rhinorrhea, No Swallowing Difficulty Eyes: No Eye Pain, No Swelling, No Redness, No Foreign Body, No Discharge, No Vision Changes Cardiovascular : No Chest Pain, No SOB, No Dyspnea on Exertion, No Orthopnea, No Edema, No Palpitations Respiratory : positive Cough improved from prior, No Sputum, No Wheezing, No Smoke Exposure, No Dyspnea Gastrointestinal : No Nausea, No Vomiting, No Diarrhea, No Constipation, No abdominal Pain, No Hematochezia, No Melena Genitourinary : no irregular bleeding, No Dysuria, No Urinary Frequency, No Hematuria, No Urinary Incontinence, No Urgency, No Flank Pain, No Urinary Flow Changes, No Hesitancy Musculoskeletal : No joint pain, No Myalgias, No Joint Swelling Skin : No Skin Lesions, No rash Neuro : No Weakness, No Numbness, No Paresthesias, No Loss of Consciousness, No Dizziness, No Headache Psych : No Anxiety/Panic, No Depression, No SI/HI/AH/VH, No Social Issues, Heme/Lymph: No Bruising, No Bleeding,No Lymphadenopathy Endocrine : No Polyuria, No Polydipsia, No Temperature Intolerance Yes all other systems are reviewed and are negative [facility] Past Medical History Attestation statement: The following information was validated with the patient. Medical History Alcohol abuse COPD (chronic obstructive pulmonary disease) Diabetes mellitus type 1 Diastolic dysfunction Diastolic heart failure HLD (hyperlipidemia) Hypertension Nonrheumatic aortic (valve) stenosis Obesity Family History Family History Father Diabetes Mother Diabetes Social History Social History Household Members: None Housing: Apartment Do you presently have visiting nurse or other home services: No Alcohol intake: never Patient Tobacco Use Status: Former Tobacco user Smoked in Last 30 Days: No Second Hand Smoke Exposure: No Use of substances other than those prescribed or required for medical reasons: No Advance Directives: No Advance Directives Information Provided: No service: No Current occupational status: disabled Physical Exam Vital Signs: Vital Signs: Last Vital Signs Temp 98.2 F 10/11/20 14:03 Pulse 81 10/11/20 16:09 Resp 19 10/11/20 16:09 BP 125/50 L 10/11/20 16:09 Pulse Ox 95 10/11/20 16:09 Body Mass Index 36.1 vital signs have been reviewed as normal and appeared to be correct. Blood pressure normal. Heart rate normal. Respiration rate normal. Temperature normal. Oxygen saturation normal. Appearance: Alert. Oriented X3. No acute distress. Head: Normal external exam. Normocephalic. Atraumatic. No Espinosa signs noted. No raccoon eyes noted Eyes: PERRLA. EOMI. Conjunctiva and sclera normal. Eyelids normal. ENT: EAC normal. TM's Normal. Pharynx normal. Uvula midline. Moist mucous membranes. No trismus noted. No drooling noted. No muffled voice noted. Neck: Normal inspection. Neck supple. FROM. No adenopathy. Thyroid Normal. No meningeal signs. No neck mass noted. CVS: Normal heart rate and rhythm. Heart sound normal. Pulses normal throughout. No murmurs/rales/gallops. Respiratory: No respiratory distress. Painless inspiration. Breath sounds normal. No wheezes/rales/rhonchi noted. Chest nontender. No accessory muscle usage noted or decreased air movement noted. Abdomen: Soft and nontender. Bowel sounds normal in all 4 quadrants. No distention noted. No organomegaly noted. No visible injury noted. Back: No CVA tenderness. Full range of motion noted. No rashes/lesion/induration/fluctuance or signs of infection noted. Skin: Skin warm and dry. Normal skin color. Normal skin turgor. No rashes/lesions/lacerations noted. Extremities: Mild lower extremity bilateral +2 pitting edema. No calf tenderness is noted. Extremities exhibit normal range of motion. Extremities nontender. Neuro: Oriented X 3. No motor deficit. No sensory deficit. Reflexes normal. Normal steady gait. No focal neuro deficits noted. Vascular: + radial pulses/+ 2 distal pedal pulses/+2 dorsalis pedis b/l. Normal cap refill. No cyanosis noted to upper extremity nails and lower extremity toes nails. Course Course Course Narrative: 17pm - patient was evaluate by Physical therapy and they are recommending short-term rehab therefore patient was accepted to [facility] for short-term rehab. Patient continues to refuse all labs and imaging reports he feels fine and just needed to be here for physical therapy referral for short-term rehab therefore will continue to monitor into the patient is sent to short-term rehab via EMS. Patient understands agrees with this plan. Medical Decision Making [facility] Narrative Medical decision making narrative: 14:32pm - 64-year-old male with a past medical history of COPD on nocturnal oxygen, diabetes, aortic stenosis, heart failure with preserved ejection fracture, EtOH dependence/abuse, and hypertension who presents to the emergency department from home via EMS requesting to have a physical therapy evaluation to go back to [facility]. Patient was admitted here on 09/27/2020-10/01/2020 and discharged to the care home facility left without VNA services. Today patient is reporting that he is only here for physical therapy evaluation he does not have any new complaints reports that his cough is improving. He is refusing all labs and imaging and EKG reports that he does not want any labs imaging or EKG due to he just had a full workup and was recently discharged here and continues to take all his medications as previously prescribed and he does not want anything to hold up his transfer to [facility] Therefore he continues to refuse all lab/imaging and EKG. Plan: Physical therapy evaluation and case management. We will continue to monitor. Medical Records Medical records reviewed: Yes I reviewed the patient's medical records. Discharge Plan Discharge Clinical Impression: Physical deconditioning Patient Disposition: Home, Self-Care Instructions: Weakness (ED) Prescriptions: No Action loteprednol etabonate 0.5 % drops,suspension 1 drp ophthalmic (eye) TID RF: 0 albuterol sulfate 90 mcg/actuation HFA aerosol inhaler 2 puff PO Q4-6H PRN (Reason: dyspnea) RF: 0 albuterol sulfate 2.5 mg /3 mL (0.083 %) solution for nebulization 1 amp inhalation QID RF: 0 gabapentin 300 mg capsule 2 cap PO TID RF: 0 Jardiance 10 mg tablet 1 tab PO QAM RF: 0 quetiapine 50 mg tablet 3 tab PO BEDTIME RF: 0 Breo Ellipta 200-25 mcg/dose Blister With Device 1 ea inhalation RDAILY Qty: 1 RF: 0 codeine-guaifenesin 10-100 mg/5 mL Liquid 10 ml PO Q6H PRN (Reason: Cough) Qty: 118 RF: 0 prednisone 20 mg tablet 40 mg PO DAILY Qty: 8 RF: 0 azithromycin 500 mg Tablet 500 mg PO Q24H Qty: 3 RF: 0 docusate sodium [Colace] 100 mg capsule 100 mg PO DAILY Qty: 30 RF: 0 oxycodone 5 mg capsule 5 mg PO BID PRN (Reason: pain) Qty: 4 RF: 0 celecoxib 50 mg capsule 50 mg PO BID RF: 0 omega-3 fatty acids-fish oil 340-1,000 mg capsule 1 cap PO QAM RF: 0 folic acid 1 mg tablet 1 mg PO DAILY@1800 RF: 0 omeprazole 20 mg capsule,delayed release(DR/EC) 20 mg PO QAM RF: 0 lisinopril 10 mg tablet 10 mg PO QAM RF: 0 simvastatin 20 mg tablet 20 mg PO BEDTIME RF: 0 aspirin 81 mg tablet,delayed release (DR/EC) 81 mg PO BEDTIME RF: 0 thiamine HCl (vitamin B1) 100 mg tablet 100 mg PO DAILY@1800 RF: 0 multivitamin Tablet 1 tab PO QAM RF: 0 insulin aspart U-100 100 unit/mL solution See Rx Instructions .ROUTE .COMPLEX RF: 0 insulin glargine 100 unit/mL solution 45 unit subcut BEDTIME RF: 0 buspirone 5 mg tablet 5 mg PO BID RF: 0 fluticasone propionate 50 mcg/actuation spray,suspension 1 - 2 spray intranasal DAILY PRN (Reason: Allergy Symptoms) RF: 0 Referrals: Name,MD Jaylen [Primary Care Provider] - 2 days Print Language: Slovak
[2020-10-11 16:09] VITALS: BP 125/50; PULSE 81; RESP 19; O2SAT 95
--- NOTE | 2020-10-11 17:51 | PC.NURSE ---
Nurse to nurse report given to [facility]
--- NOTE | 2020-10-11 18:04 | MHC.CM.ED ---
CM met with patient. [facility] is willing to accept pt and insurance authorization was obtained at 1700. Pt is very pleased. Ambulance booked for 1830. Pt aware and agreeable. RN and EAP CONSULTANT aware. CM to follow for d/c needs.
== END 2020-10-11 20:06 | disposition home or self-care (01) ==
PROVIDERS: Emergency Provider Emergency Medicine Emergency Medical Services; PCP Internal Medicine Geriatric Medicine
DX: R53.81 Other malaise (principal); E10.9 Type 1 diabetes mellitus without complications; I11.0 Hypertensive heart disease with heart failure; I50.30 Unspecified diastolic (congestive) heart failure; E78.5 Hyperlipidemia, unspecified; F10.10 Alcohol abuse, uncomplicated; J44.9 Chronic obstructive pulmonary disease, unspecified; Z99.81 Dependence on supplemental oxygen; Z79.899 Other long term (current) drug therapy; Z79.02 Long term (current) use of antithrombotics/antiplatelets; Z79.82 Long term (current) use of aspirin; Z79.4 Long term (current) use of insulin
CPT/HCPCS: 97162; 99284; 99285

== ENCOUNTER 2020-10-14 00:52 | Outpatient (REF) | payer OTHER, SELFPAY ==
[2020-10-14 07:50] LABS: Hematocrit 42.9 % (42-52); Hemoglobin 13.8 g/dl (14.0-18.0); Mean Corpuscular HGB Conc 32.2 g/dl (31.0-36.0); Mean Corpuscular Hemoglobin 30.9 pg (27.0-33.0); Mean Corpuscular Volume 96.2 fL (80-98); Mean Platelet Volume 9.6 fL (9.4-12.4); Platelet Count 177 X10*3/uL (160-400); Red Blood Count 4.46 X10*6/uL (4.60-5.80); White Blood Count 10.1 X10*3/uL (4.8-10.8)
[2020-10-14 08:17] LABS: Anion Gap 14 (12-20); Blood Urea Nitrogen 29 mg/dL (9-16); Calcium 8.6 mg/dL (8.4-10.2); Carbon Dioxide 26 mmol/L (22-29); Chloride 104 mmol/L (96-108); Estimated Glomerular Filt Rate > 60; Glucose Random 186 mg/dL (60-115); Potassium 4.1 mmol/L (3.3-5.1); Sodium 140 mmol/L (135-145)
== END 2020-10-14 00:53 | disposition home or self-care (01) ==
LOC: HO.MMNH1L 00:52
PROVIDERS: Visit Provider Family Medicine
DX: R06.02 Shortness of breath (principal)
CPT/HCPCS: 36415; 80048; 85027

== ENCOUNTER 2020-10-21 00:27 | Outpatient (REF) | payer OTHER, SELFPAY | END 2020-10-21 00:28 | disposition home or self-care (01) | LOC: HO.MMNH1L 00:27 | PROVIDERS: Visit Provider Family Medicine | DX: Z13.89 Encounter for screening for other disorder (principal) ==

== ENCOUNTER 2020-10-26 16:06 | Emergency (ER) | payer OTHER, SELFPAY ==
--- NOTE | 2020-10-26 | ECG_ITS ---
Test Reason : DYSPNEA Blood Pressure : / mmHG Vent. Rate : 085 BPM Atrial Rate : 085 BPM P-R Int : 148 ms QRS Dur : 074 ms QT Int : 352 ms P-R-T Axes : 072 052 085 degrees QTc Int : 418 ms Normal sinus rhythm Nonspecific ST abnormality Borderline ECG No previous ECGs available Referred By: Generic ED Physician Electronically Signed By:BING PHILLIPS
--- NOTE | ~2020-10-26 | XR_ITS ---
EXAMINATION: PORTABLE CHEST 1 VIEW CLINICAL INFORMATION: sob . COMPARISON: 09/27/2020. TECHNIQUE: Portable frontal view of the chest was obtained. FINDINGS: Lungs well-expanded. No superimposed focal infiltrate, effusion, edema, or pneumothorax. Cardiac and mediastinal silhouettes within normal limits for size. Vascular calcification seen in the aorta. No acute bony abnormality. Left total shoulder arthroplasty partially visualized. XR/XR chest 1V IMPRESSION: No focal airspace disease. No edema
[2020-10-26 16:11] VITALS: BP 101/55; BP 107/50; PULSE 84; PULSE 87; RESP 20; TEMP 36.8; O2SAT 94; O2SAT 95; BMI 34.9
--- NOTE | 2020-10-26 16:29 | ED.SOB ---
HPI - SOB/Dyspnea General Chief Complaint: Dyspnea Stated Complaint: DIFF BREATHING X'S 1 WEEK, 97% ON RA PER EMS Time Seen by Provider: 10/26/20 16:29 Source: patient Mode of arrival: EMS Limitations: no limitations History of Present Illness HPI Narrative: Patient with COPD, diastolic heart failure just discharged from pulmonary rehab 1 week ago not in maintenance prednisone using nebulizing treatment and inhalers complaining of increased shortness of breath for last 2-3 days with bilateral chest pain when taking a deep breath and dry cough no fever no chills Related Data Home Medications Medication Instructions Recorded Confirmed aspirin 81 mg tablet,delayed 81 mg PO BEDTIME 06/03/20 09/27/20 release buspirone 5 mg tablet 5 mg PO BID 06/03/20 09/27/20 celecoxib 50 mg capsule 50 mg PO BID cap 06/03/20 09/27/20 fluticasone propionate 50 1 - 2 spray INTRANASAL DAILY PRN 06/03/20 09/27/20 mcg/actuation nasal spray,suspension folic acid 1 mg tablet 1 mg PO DAILY@1800 06/03/20 09/27/20 insulin aspart U-100 100 unit/mL See Rx Instructions .ROUTE .COMPLEX 06/03/20 09/27/20 subcutaneous solution insulin glargine 100 unit/mL 45 unit SUBCUT BEDTIME 06/03/20 09/27/20 subcutaneous solution lisinopril 10 mg tablet 10 mg PO QAM 06/03/20 09/27/20 multivitamin 1 tab PO QAM 06/03/20 09/27/20 omega-3 fatty acids-fish oil 340 1 cap PO QAM 06/03/20 09/27/20 mg-1,000 mg capsule omeprazole 20 mg capsule,delayed 20 mg PO QAM 06/03/20 09/27/20 release simvastatin 20 mg tablet 20 mg PO BEDTIME 06/03/20 09/27/20 thiamine HCl (vitamin B1) 100 mg 100 mg PO DAILY@1800 06/03/20 09/27/20 tablet Jardiance 1 tab PO QAM 09/26/20 09/27/20 albuterol sulfate 1 amp INHALATION QID 09/26/20 09/27/20 albuterol sulfate 2 puff PO Q4-6H PRN 09/26/20 09/27/20 gabapentin 2 cap PO TID 09/26/20 09/27/20 loteprednol etabonate 1 drp OPHTHALMIC (EYE) TID 09/26/20 09/27/20 quetiapine 3 tab PO BEDTIME 09/27/20 09/27/20 Previous Rx's Medication Instructions Recorded azithromycin 500 mg PO Q24H #3 tab 10/01/20 codeine-guaifenesin 10 ml PO Q6H PRN #118 ml 10/01/20 docusate sodium [Colace] 100 mg PO DAILY #30 cap 10/01/20 fluticasone furoate-vilanterol 1 ea INHALATION RDAILY #1 ea 10/01/20 [Breo Ellipta] oxycodone 5 mg PO BID PRN #4 cap 10/01/20 prednisone 40 mg PO DAILY #8 tab 10/01/20 codeine-guaifenesin 10 ml PO Q4-6H PRN #237 ml 10/26/20 prednisone See Rx Instructions .ROUTE 10/26/20 .COMPLEX #60 tab Allergies Allergy/AdvReac Type Severity Reaction Status Date / Time ENVIRONMENTAL Allergy Mild SNEEZING, Uncoded 09/26/20 17:14 WATERY EYES Review of Systems Review of Systems: Constitutional : No Weight loss, No Fever, No Chills ENT/Mouth : No sore throat, No Rhinorrhea Eyes: No Eye Pain, No Swelling Cardiovascular : No Chest Pain, no palpitations Respiratory : + Cough, +Sputum, + shortness of breath Gastrointestinal : no Nausea, No Vomiting, No Diarrhea, No abdominal Pain, no black stools Genitourinary : No Dysuria, No Urinary Frequency Musculoskeletal : No joint pain, No Myalgias, No Joint Swelling Skin : No Skin Lesions, No rash Neuro : No Weakness, No Numbness, No Dizziness, No Headache Psych : No Anxiety/Panic, No Depression Heme/Lymph: No Bruising, No Lymphadenopathy Endocrine : No Polyuria, No Polydipsia All other systems reviewed and are negative [facility] Past Medical History Medical History Alcohol abuse COPD (chronic obstructive pulmonary disease) Diabetes mellitus type 1 Diastolic dysfunction Diastolic heart failure HLD (hyperlipidemia) Hypertension Nonrheumatic aortic (valve) stenosis Obesity Family History Family History Father Diabetes Mother Diabetes Social History Social History Household Members: None Housing: Apartment Do you presently have visiting nurse or other home services: No Alcohol intake: former Patient Tobacco Use Status: Former Tobacco user Smoked in Last 30 Days: Yes Second Hand Smoke Exposure: No Use of substances other than those prescribed or required for medical reasons: No Advance Directives: No Advance Directives Information Provided: Yes service: No Current occupational status: disabled Physical Exam Vital Signs: Vital Signs: Last Vital Signs Temp 98.2 F 10/26/20 16:11 Pulse 84 10/26/20 19:29 Resp 24 H 10/26/20 19:29 BP 124/62 10/26/20 19:29 Pulse Ox 96 10/26/20 19:29 Body Mass Index 34.9 Appearance: Alert. Oriented X3. No acute distress. Eyes: PERRLA, No Nystagmus ENT: Pharynx normal. Oral Mucosa moist Neck: Normal inspection. Neck supple. CVS: Normal heart rate and rhythm. Pulses normal. Respiratory: No respiratory distress. Equal air entry bilateral, bilateral wheezing++ Abdomen: Soft and nontender. Bowel sounds are present, no mass palpable, no CVA tenderness Skin: Skin warm and dry. Normal skin color. Normal skin turgor. Extremities: No lower extremity edema. No calf tenderness Neuro: Oriented X 3. No motor deficit. No sensory deficit.No cerebellar signs , cranial nerves II-XII intact MDM - SOB/Dyspnea MDM Narrative Medical decision making narrative: Patient with COPD with chronic shortness of breath and muscular pain chest x-ray negative will discharge patient on prednisone in tapering dose and cough syrup Discharge Plan Discharge Clinical Impression: COPD (chronic obstructive pulmonary disease) Patient Disposition: Home, Self-Care Instructions: COPD (Chronic Obstructive Pulmonary Disease) (ED) Additional Instructions: Continue your inhalers Take prednisone as prescribed. Follow with PCP Prescriptions: New codeine-guaifenesin 10-100 mg/5 mL liquid 10 ml PO Q4-6H PRN (Reason: cough) Qty: 237 RF: 0 prednisone 10 mg tablet See Rx Instructions .ROUTE .COMPLEX Qty: 60 RF: 0 No Action loteprednol etabonate 0.5 % drops,suspension 1 drp ophthalmic (eye) TID RF: 0 albuterol sulfate 90 mcg/actuation HFA aerosol inhaler 2 puff PO Q4-6H PRN (Reason: dyspnea) RF: 0 albuterol sulfate 2.5 mg /3 mL (0.083 %) solution for nebulization 1 amp inhalation QID RF: 0 gabapentin 300 mg capsule 2 cap PO TID RF: 0 Jardiance 10 mg tablet 1 tab PO QAM RF: 0 quetiapine 50 mg tablet 3 tab PO BEDTIME RF: 0 Breo Ellipta 200-25 mcg/dose Blister With Device 1 ea inhalation RDAILY Qty: 1 RF: 0 codeine-guaifenesin 10-100 mg/5 mL Liquid 10 ml PO Q6H PRN (Reason: Cough) Qty: 118 RF: 0 prednisone 20 mg tablet 40 mg PO DAILY Qty: 8 RF: 0 azithromycin 500 mg Tablet 500 mg PO Q24H Qty: 3 RF: 0 docusate sodium [Colace] 100 mg capsule 100 mg PO DAILY Qty: 30 RF: 0 oxycodone 5 mg capsule 5 mg PO BID PRN (Reason: pain) Qty: 4 RF: 0 celecoxib 50 mg capsule 50 mg PO BID RF: 0 omega-3 fatty acids-fish oil 340-1,000 mg capsule 1 cap PO QAM RF: 0 folic acid 1 mg tablet 1 mg PO DAILY@1800 RF: 0 omeprazole 20 mg capsule,delayed release(DR/EC) 20 mg PO QAM RF: 0 lisinopril 10 mg tablet 10 mg PO QAM RF: 0 simvastatin 20 mg tablet 20 mg PO BEDTIME RF: 0 aspirin 81 mg tablet,delayed release (DR/EC) 81 mg PO BEDTIME RF: 0 thiamine HCl (vitamin B1) 100 mg tablet 100 mg PO DAILY@1800 RF: 0 multivitamin Tablet 1 tab PO QAM RF: 0 insulin aspart U-100 100 unit/mL solution See Rx Instructions .ROUTE .COMPLEX RF: 0 insulin glargine 100 unit/mL solution 45 unit subcut BEDTIME RF: 0 buspirone 5 mg tablet 5 mg PO BID RF: 0 fluticasone propionate 50 mcg/actuation spray,suspension 1 - 2 spray intranasal DAILY PRN (Reason: Allergy Symptoms) RF: 0 Interventions: ED Discharge Assessment Last Done: 10/26/20 19:57 Discharge Date/Time: 10/26/20 19:58
[2020-10-26] MEDS: Albuterol/Iprat 2.5/0.5MG 3 ML AMPUL.NEB INHALE (17:18)
[2020-10-26] MEDS: Albuterol Sulfate (0.083%) 2.5 MG/3 ML VIAL.NEB 5 MG INHALE (17:18)
[2020-10-26 17:21] VITALS: PULSE 87; O2SAT 93
[2020-10-26 17:49] VITALS: BP 97/50; PULSE 85; RESP 18; O2SAT 93
[2020-10-26] MEDS: methylPREDNISolone Sod Succ 125 MG/2 ML VIAL IVPUSH (17:52)
[2020-10-26] MEDS: guaiFEN/Codeine SF 200/20/10ML 10 ML LIQUID PO (17:53)
--- NOTE | 2020-10-26 18:25 | PC.NURSE ---
Pt reports h/a post breathing treatment, and requesting pain medication. When asked if he can take tylenol or motrin pt responded I already took those at home, none of that stuff works for me pt moderately hypotensive ay this time MD aware, pt denies dizziness.
[2020-10-26 18:27] VITALS: BP 110/44; PULSE 85; O2SAT 95
[2020-10-26] MEDS: 0.9 % Sodium Chloride 1,000 ML 999 ML IVCONT (18:49)
[2020-10-26] MEDS: Morphine Sulfate 4 MG/ML CARTRIDGE IVPUSH (18:49)
[2020-10-26] MEDS: ondansetron HCL 4 MG/2 ML VIAL IVPUSH (18:50)
[2020-10-26 19:29] VITALS: BP 124/62; PULSE 84; RESP 24; O2SAT 96
--- NOTE | 2020-10-26 19:30 | PC.NURSE ---
Report taken from Cherie, this RN resuming care. Pt found sitting upright in bed, speaking full sentences, wearing oxygen @ 2 lpm. Per pt, recently discharged from [facility] after 2 weeks, reports lung pain beginning yesterday. Pt states the pain increases when he takes a deep breath. Pt also reporting increased SOB, states he can hardly walk from the living room to the bathroom without increased SOB and fatigue. Pt in NAD at this time, satting @ 97% on 2 lpm. VSS at this time, IVF infusing per MAR/ Pt medicated for pain by previous Rn. Call watters within reach, continue to monitor.
--- NOTE | 2020-10-26 19:42 | PC.NURSE ---
MD at bedside discussing results and plan for DC. Pt requesting a taxi for transport home.
== END 2020-10-26 19:58 | disposition home or self-care (01) ==
PROVIDERS: Emergency Provider Internal Medicine; PCP Internal Medicine Geriatric Medicine
DX: J44.9 Chronic obstructive pulmonary disease, unspecified (principal); I11.0 Hypertensive heart disease with heart failure; I50.30 Unspecified diastolic (congestive) heart failure; E10.9 Type 1 diabetes mellitus without complications
CPT/HCPCS: 71045; 93005; 94640; 94644; 96361; 96374; 96375; 99284; J2270; J2405; J2930

== ENCOUNTER 2020-11-05 17:02 | Inpatient (IN) | payer OTHER, SELFPAY ==
--- NOTE | 2020-11-05 | ECG_ITS ---
Test Reason : SOB Blood Pressure : / mmHG Vent. Rate : 098 BPM Atrial Rate : 098 BPM P-R Int : 132 ms QRS Dur : 072 ms QT Int : 326 ms P-R-T Axes : 061 017 089 degrees QTc Int : 416 ms Normal sinus rhythm Non specific T wave changes When compared with ECG of 26-OCT-2020 16:17, T wave inversion now evident in Lateral leads Referred By: Benja Han Electronically Signed By:HERMAN TONEY MD
--- NOTE | ~2020-11-05 | US_ITS ---
EXAMINATION: US VENOUS ULTRASOUND WITH DOPPLER LOWER EXTREMITY, LEFT CLINICAL INFORMATION: Leg swelling. Question pulmonary embolism. COMPARISON: None TECHNIQUE: Ultrasound of the deep veins is performed from the hip to the calf with compression sonography and color and pulse Doppler assessment. Spectral analysis with color-flow imaging is performed. FINDINGS: There is normal venous compression and respiratory variation and augmented flow. The visualized common femoral vein, superficial femoral vein, profunda femoral vein, popliteal vein, and the trifurcation region shows no evidence of deep venous thrombosis. There is no significant popliteal fossa cyst. Left lower leg subcutaneous edema. If the patient's symptoms persist, follow-up ultrasound in 5 days 7 days might be of value to exclude proximal propagation from a non-visualized calf vein. US/US venous duplex LE IMPRESSION: No DVT demonstrated in the left lower extremity. Left lower leg subcutaneous edema.
--- NOTE | ~2020-11-05 | CT_ITS ---
EXAM: 1. CTA chest, PE protocol 2. CT abdomen pelvis with IV contrast INDICATION: Question pneumonia versus PE. Abdominal pain. COMPARISON: Chest x-ray November 05, 2020, CT abdomen pelvis August 24, 2020 and CTA chest May 03, 2018 TECHNIQUE: Multidetector helical imaging of the chest, abdomen, and pelvis was obtained from the thoracic inlet through the pubic symphysis following administration of 85 cc of Omnipaque 350 IV contrast. Coronal, sagittal and MIP reformatted images were obtained and also reviewed. Today's examination is mildly limited secondary to motion artifact. DLP: 1172 mGy-cm FINDINGS: CHEST: The heart is normal in size. There is no pericardial effusion. No pulmonary arterial filling defect to suggest pulmonary embolus. Normal caliber thoracic aorta. No gross mediastinal lymphadenopathy. No enlarged axillary lymph nodes. Central airways are patent. Lungs are well aerated. There is minimal dependent atelectasis. No lobar consolidation is present. No pleural effusion or pneumothorax. No suspicious pulmonary nodules. ABDOMEN/PELVIS: The liver demonstrates normal size, contour and attenuation. The gallbladder is normal in appearance. The pancreas, spleen and adrenal glands are unremarkable. Symmetrically enhancing kidneys without hydronephrosis. A few small hypodensities of the left kidney are stable and suspected to represent small cysts. There is no hydronephrosis of either kidney. The stomach is decompressed and therefore not accurately characterize. Normal caliber loops of small and large bowel. Moderate colonic diverticulosis without CT evidence to suggest active diverticulitis. Normal appendix. Nonaneurysmal abdominal aorta. No retroperitoneal lymphadenopathy. The bladder is well-distended and normal in appearance. Prostate gland is not enlarged. No gross free pelvic fluid. No inguinal lymphadenopathy. OSSEOUS STRUCTURES [id number] diffuse degenerative changes of the spine. Old healed left posterior rib fracture. CT/CT angio chest PE protocol IMPRESSION: 1. No pulmonary embolus or acute pulmonary process identified. 2. Colonic diverticulosis without CT evidence to active diverticulitis. This CT examination was performed using dose optimization techniques as appropriate, variously including the following: *Automated exposure control *Adjustment of mA and/or kV according to patient size (this includes techniques or standardized protocols for targeted exams where dose is matched to indication/reason for exam; i.e. extremities or head) *Use of iterative reconstruction technique
--- NOTE | ~2020-11-05 | XR_ITS ---
EXAMINATION: XR FOOT, LEFT CLINICAL INFORMATION: Fracture. COMPARISON: None TECHNIQUE: AP, lateral, and oblique views of the left foot. FINDINGS: No displaced fracture. No dislocation. Joint space narrowing with small marginal osteophytes at the 1st metatarsophalangeal and interphalangeal joints as well as at the hallux sesamoids. No osseous erosion. No abnormal soft tissue calcification. XR/XR foot LT 2V IMPRESSION: 1. No displaced fracture. 2. Mild osteoarthritis at the 1st metatarsophalangeal joint, hallux sesamoids, and 1st interphalangeal joint.
--- NOTE | ~2020-11-05 | XR_ITS ---
EXAMINATION: XR CHEST CLINICAL INFORMATION: SOB/abdominal pain. COMPARISON: Chest 10/26/2020. TECHNIQUE: Frontal view of the chest was obtained. FINDINGS: The lungs are hyperinflated with no focal consolidation or pleural effusion seen. There are fine interstitial increased markings in left lower lung. The heart size and pulmonary vascularity is normal. No gross bony abnormality. Partial right shoulder prosthesis is noted. XR/XR chest 1V IMPRESSION: No acute process. Mild increased interstitial markings in left lower lobe.
[2020-11-05 17:05] VITALS: BP 130/74; BP 135/57; PULSE 107; PULSE 99; RESP 22; TEMP 37.1; O2SAT 94; O2SAT 95; BMI 34.9
--- NOTE | 2020-11-05 17:39 | ED.SOB ---
HPI - SOB/Dyspnea General Chief Complaint: Dyspnea Stated Complaint: SOB,ABD PAIN Time Seen by Provider: 11/05/20 17:08 Source: patient Mode of arrival: ambulatory Limitations: no limitations History of Present Illness HPI Narrative: patient presents to ED for shortness of breath and abdominal pain for 4 days. Patient also states left foot swelling without any trauma. Patient states history of CHF and COPD. Patient was just discharged from [facility] for COPD rehab. Related Data Home Medications Medication Instructions Recorded Confirmed aspirin 81 mg tablet,delayed 81 mg PO BEDTIME 06/03/20 09/27/20 release buspirone 5 mg tablet 5 mg PO BID 06/03/20 09/27/20 celecoxib 50 mg capsule 50 mg PO BID cap 06/03/20 09/27/20 fluticasone propionate 50 1 - 2 spray INTRANASAL DAILY PRN 06/03/20 09/27/20 mcg/actuation nasal spray,suspension folic acid 1 mg tablet 1 mg PO DAILY@1800 06/03/20 09/27/20 insulin aspart U-100 100 unit/mL See Rx Instructions .ROUTE .COMPLEX 06/03/20 09/27/20 subcutaneous solution insulin glargine 100 unit/mL 45 unit SUBCUT BEDTIME 06/03/20 09/27/20 subcutaneous solution lisinopril 10 mg tablet 10 mg PO QAM 06/03/20 09/27/20 multivitamin 1 tab PO QAM 06/03/20 09/27/20 omega-3 fatty acids-fish oil 340 1 cap PO QAM 06/03/20 09/27/20 mg-1,000 mg capsule omeprazole 20 mg capsule,delayed 20 mg PO QAM 06/03/20 09/27/20 release simvastatin 20 mg tablet 20 mg PO BEDTIME 06/03/20 09/27/20 thiamine HCl (vitamin B1) 100 mg 100 mg PO DAILY@1800 06/03/20 09/27/20 tablet Jardiance 1 tab PO QAM 09/26/20 09/27/20 albuterol sulfate 1 amp INHALATION QID 09/26/20 09/27/20 albuterol sulfate 2 puff PO Q4-6H PRN 09/26/20 09/27/20 gabapentin 2 cap PO TID 09/26/20 09/27/20 loteprednol etabonate 1 drp OPHTHALMIC (EYE) TID 09/26/20 09/27/20 quetiapine 3 tab PO BEDTIME 09/27/20 09/27/20 Previous Rx's Medication Instructions Recorded azithromycin 500 mg PO Q24H #3 tab 10/01/20 codeine-guaifenesin 10 ml PO Q6H PRN #118 ml 10/01/20 docusate sodium [Colace] 100 mg PO DAILY #30 cap 10/01/20 fluticasone furoate-vilanterol 1 ea INHALATION RDAILY #1 ea 10/01/20 [Breo Ellipta] oxycodone 5 mg PO BID PRN #4 cap 10/01/20 prednisone 40 mg PO DAILY #8 tab 10/01/20 codeine-guaifenesin 10 ml PO Q4-6H PRN #237 ml 10/26/20 prednisone See Rx Instructions .ROUTE 10/26/20 .COMPLEX #60 tab Allergies Allergy/AdvReac Type Severity Reaction Status Date / Time ENVIRONMENTAL Allergy Mild SNEEZING, Uncoded 09/26/20 17:14 WATERY EYES Review of Systems Review of Systems: Yes all other systems are reviewed and are negative Constitutional: Constitutional: Reports as per HPI and Reports no additional constitutional complaints Eyes: Eyes: Reports as per HPI and Reports no additional eye complaints ENT: Reports system reviewed and no additional complaints, except as documented and Reports as per HPI Cardiovascular: Cardiovascular: Reports as per HPI, Reports no additional cardiovascular complaints and Reports dyspnea Respiratory: Respiratory: Reports as per HPI, Reports no additional respiratory complaints and Reports dyspnea Gastrointestinal: Gastrointestinal: Reports as per HPI and Reports no additional gastrointestinal complaints Genitourinary: Genitourinary: Reports no additional male genitourinary complaints and Reports as per HPI Musculoskeletal: Musculoskeletal: Reports no additional musculoskeletal complaints and Reports as per HPI Comments: Left foot swollen Neurologic: Reports system reviewed and no additional complaints, except as documented and Reports as per HPI Psychiatric: Psychiatric: Reports no additional psychiatric complaints and Reports as per HPI PMF Past Medical History Medical History Alcohol abuse COPD (chronic obstructive pulmonary disease) Diabetes mellitus type 1 Diastolic dysfunction Diastolic heart failure HLD (hyperlipidemia) Hypertension Nonrheumatic aortic (valve) stenosis Obesity Family History Family History Father Diabetes Mother Diabetes Social History Social History Household Members: None Housing: Apartment Do you presently have visiting nurse or other home services: No Alcohol intake: former Patient Tobacco Use Status: Former Tobacco user Smoked in Last 30 Days: No Second Hand Smoke Exposure: No Use of substances other than those prescribed or required for medical reasons: No Advance Directives: No Advance Directives Information Provided: Yes service: No Current occupational status: disabled Physical Exam Vital Signs: Vital Signs: Last Vital Signs Temp 98.8 F 11/05/20 17:05 Pulse 88 11/05/20 21:56 Resp 20 11/05/20 20:25 BP 150/69 H 11/05/20 20:25 Pulse Ox 94 11/05/20 20:25 Body Mass Index 34.9 Const: General: cooperative, healthy appearing, comfortable, no acute distress, well developed, alert, awake and Physically active Orientation/consciousness: patient oriented x3 HENMT: Head: Yes normal to inspection, Yes No palpable skull fracture present, Yes normocephalic, Yes atraumatic and No abrasion Eyes: General: appearance normal, both eyes and all related structures Neck: Neck: Yes normal visual inspection, Yes full ROM, Yes no lymphadenopathy, Yes no meningeal signs, Yes trachea midline, Yes supple and No tender Chest: Chest palpation & inspection: normal inspection of the chest and normal palpation of entire chest wall Breast/axilla inspection: normal inspection of the breasts Resp: Effort & Inspection: normal respiratory effort and able to speak in complete sentences Auscultation: wheezes ( mild) expiratory wheezes Cardio: Jugular venous distension: no JVD Heart sounds: S1 normal heart sound present and S2 normal heart sound present GI: Inspection: Yes normal to inspection and No abdominal wall ecchymosis Palpation (GI): Soft to palpation, not firm, nontender, no guarding and not rigid : General: No CVA tenderness and Yes no CVA tenderness Back/Spine/Pelvis: Back: no CVA tenderness, No CVA tenderness and No back tenderness Skin: General skin exam: no rashes or lesions noted and elasticity normal Neuro: General: patient oriented x3, gait normal, no meningeal signs and CN's II-XI intact bilaterally Cranial nerves: Yes CN's II-XII intact bilaterally Extrem: Other: positive for left foot swollen only. Rest of left lower extremity negative for any swelling, redness, or calf pain. Left foot negative for erythema tenderness. positive Palpable pedal pulses. Motor/ neuro exam of left lower extremity intact. Right lower extremity normal and motor/ neuro/vascular exam intact. Psych: Appearance: grossly normal, well kempt and not disheveled Course Course Course Narrative: The patient's comorbidities I will do a medical evaluation. Patient had EKG, troponin x-ray, left lower extremity ultrasound and given COPD medications. Reevaluation(s) Reevaluation #1: Lactic acid positive. Chest x-ray shows possible pneumonia. Antibiotics ordered. Fluids ordered at ideal body weight. Left lower extremity ultrasound negative for blood clot. Was sent for chest CT and abdomen to rule out any PE or abdominal etiology. Time: 18:48 Reevaluation #2: patient given Ativan for cramping and left lower extremity. Chest CT and abdominal CT negative for PE or any abdominal etiology. Chest CT is negative also for pneumonia, but antibiotics already given. Case presented to hospitalist for admission.Dr. Brooks. diagnosis COPD exacerbation. Patient will benefit from admission. Patient has had multiple visits for COPD recently. Time: 22:08 MDM - SOB/Dyspnea MDM Narrative Medical decision making narrative: COPD exacerbation Lab Data Result diagrams: 11/05/20 17:49 11/05/20 17:49 Labs: Lab Results 11/05/20 11/05/20 11/05/20 Range/Units 17:49 17:49 17:49 WBC 10.2 (4.8-10.8) X10*3/uL RBC 4.67 (4.60-5.80) X10*6/uL Hgb 14.3 (14.0-18.0) g/dl Hct 43.4 (42-52) % MCV 92.9 (80-98) fL MCH 30.6 (27.0-33.0) pg MCHC 32.9 (31.0-36.0) g/dl RDW 14.0 (11.0-16.0) % Plt Count 228 D (160-400) X10*3/uL MPV 9.0 L (9.4-12.4) fL Immature Gran % (Auto) 1.1 H (0.0-0.4) % Neut % (Auto) 75.6 H (45-73) % Lymph % (Auto) 14.7 L (20-40) % Vilas % (Auto) 7.7 (2-11) % Eos % (Auto) 0.6 (0-4) % Baso % (Auto) 0.3 (0-2) % Lymph # (Auto) 1.5 (1.2-4.9) X10*3/uL Vilas # (Auto) 0.8 (0.1-1.2) X10*3/uL Eos # (Auto) 0.1 (0.0-0.4) X10*3/uL Baso # (Auto) 0.0 (0.0-0.2) X10*3/uL Abs Immat Gran (auto) 0.11 H (0.00-0.03) X10*3/uL Absolute Neuts (auto) 7.7 (2.0-8.3) X10*3/uL Absolute Nucleated RBC 0.000 (0.0-0.012) X10*3/uL Nucleated RBC % (auto) 0.0 (0.0-0.2) /100WBC PT (10.8-13.0) SEC INR (0.9-1.1) APTT (24.1-38.0) SEC D-Dimer NG/ML Sodium (135-145) mmol/L Potassium (3.3-5.1) mmol/L Chloride (96-108) mmol/L Carbon Dioxide (22-29) mmol/L Anion Gap (12-20) BUN (9-16) mg/dL Creatinine (0.5-1.4) mg/dL Estim Creat Clear Calc Estimated GFR Random Glucose (60-115) mg/dL Lactic Acid 2.3 H* (0.5-2.0) mmol/L Lactic Acid Fup @ 2Hr (0.5-2.0) mmol/L Calcium (8.4-10.2) mg/dL Total Bilirubin (0.0-1.0) mg/dL Direct Bilirubin (0.0-0.5) mg/dL AST (5-37) U/L ALT (0-40) U/L Alkaline Phosphatase (39-117) U/L Troponin I High Sens 21.8 (<3.5-35.0) ng/L B-Natriuretic Peptide 100 (<100) pg/mL Total Protein (6.5-8.0) g/dL Albumin (3.5-5.0) g/dL Lipase (8-78) U/L COVID-19 (ELIER) (Negative) COVID-19 Clin Com 11/05/20 11/05/20 11/05/20 Range/Units 17:49 17:50 20:25 WBC (4.8-10.8) X10*3/uL RBC (4.60-5.80) X10*6/uL Hgb (14.0-18.0) g/dl Hct (42-52) % MCV (80-98) fL MCH (27.0-33.0) pg MCHC (31.0-36.0) g/dl RDW (11.0-16.0) % Plt Count (160-400) X10*3/uL MPV (9.4-12.4) fL Immature Gran % (Auto) (0.0-0.4) % Neut % (Auto) (45-73) % Lymph % (Auto) (20-40) % Vilas % (Auto) (2-11) % Eos % (Auto) (0-4) % Baso % (Auto) (0-2) % Lymph # (Auto) (1.2-4.9) X10*3/uL Vilas # (Auto) (0.1-1.2) X10*3/uL Eos # (Auto) (0.0-0.4) X10*3/uL Baso # (Auto) (0.0-0.2) X10*3/uL Abs Immat Gran (auto) (0.00-0.03) X10*3/uL Absolute Neuts (auto) (2.0-8.3) X10*3/uL Absolute Nucleated RBC (0.0-0.012) X10*3/uL Nucleated RBC % (auto) (0.0-0.2) /100WBC PT 11.4 (10.8-13.0) SEC INR 1.0 (0.9-1.1) APTT 31.2 (24.1-38.0) SEC D-Dimer < 200 NG/ML Sodium 137 (135-145) mmol/L Potassium 4.2 (3.3-5.1) mmol/L Chloride 98 (96-108) mmol/L Carbon Dioxide 27 (22-29) mmol/L Anion Gap 16 (12-20) BUN 20 H (9-16) mg/dL Creatinine 0.93 (0.5-1.4) mg/dL Estim Creat Clear Calc 92.7 Estimated GFR > 60 Random Glucose 162 H (60-115) mg/dL Lactic Acid (0.5-2.0) mmol/L Lactic Acid Fup @ 2Hr 1.3 (0.5-2.0) mmol/L Calcium 9.3 D (8.4-10.2) mg/dL Total Bilirubin < 0.2 (0.0-1.0) mg/dL Direct Bilirubin < 0.2 (0.0-0.5) mg/dL AST 15 (5-37) U/L ALT 14 (0-40) U/L Alkaline Phosphatase 72 (39-117) U/L Troponin I High Sens (<3.5-35.0) ng/L B-Natriuretic Peptide (<100) pg/mL Total Protein 6.5 (6.5-8.0) g/dL Albumin 4.2 (3.5-5.0) g/dL Lipase 33 (8-78) U/L COVID-19 (ELIER) (Negative) COVID-19 Clin Com 11/05/20 Range/Units 21:40 WBC (4.8-10.8) X10*3/uL RBC (4.60-5.80) X10*6/uL Hgb (14.0-18.0) g/dl Hct (42-52) % MCV (80-98) fL MCH (27.0-33.0) pg MCHC (31.0-36.0) g/dl RDW (11.0-16.0) % Plt Count (160-400) X10*3/uL MPV (9.4-12.4) fL Immature Gran % (Auto) (0.0-0.4) % Neut % (Auto) (45-73) % Lymph % (Auto) (20-40) % Vilas % (Auto) (2-11) % Eos % (Auto) (0-4) % Baso % (Auto) (0-2) % Lymph # (Auto) (1.2-4.9) X10*3/uL Vilas # (Auto) (0.1-1.2) X10*3/uL Eos # (Auto) (0.0-0.4) X10*3/uL Baso # (Auto) (0.0-0.2) X10*3/uL Abs Immat Gran (auto) (0.00-0.03) X10*3/uL Absolute Neuts (auto) (2.0-8.3) X10*3/uL Absolute Nucleated RBC (0.0-0.012) X10*3/uL Nucleated RBC % (auto) (0.0-0.2) /100WBC PT (10.8-13.0) SEC INR (0.9-1.1) APTT (24.1-38.0) SEC D-Dimer NG/ML Sodium (135-145) mmol/L Potassium (3.3-5.1) mmol/L Chloride (96-108) mmol/L Carbon Dioxide (22-29) mmol/L Anion Gap (12-20) BUN (9-16) mg/dL Creatinine (0.5-1.4) mg/dL Estim Creat Clear Calc Estimated GFR Random Glucose (60-115) mg/dL Lactic Acid (0.5-2.0) mmol/L Lactic Acid Fup @ 2Hr (0.5-2.0) mmol/L Calcium (8.4-10.2) mg/dL Total Bilirubin (0.0-1.0) mg/dL Direct Bilirubin (0.0-0.5) mg/dL AST (5-37) U/L ALT (0-40) U/L Alkaline Phosphatase (39-117) U/L Troponin I High Sens (<3.5-35.0) ng/L B-Natriuretic Peptide (<100) pg/mL Total Protein (6.5-8.0) g/dL Albumin (3.5-5.0) g/dL Lipase (8-78) U/L COVID-19 (ELIER) Negative (Negative) COVID-19 Clin Com See Note ECG Data Interpretation: normal sinus rhythm. Normal EKG. Ventricular rate 98. Pr interval 132. QRS 72. QTC 416. Negative STEMI Discharge Plan Discharge Clinical Impression: COPD (chronic obstructive pulmonary disease) Patient Disposition: Admitted As Inpatient
[2020-11-05 17:57] LABS: MANUAL DIFF FLAG NO
[2020-11-05 18:02] LABS: Basophils Percent Auto 0.3 % (0-2); Eosinophils Absolute Auto 0.1 X10*3/uL (0.0-0.4); Eosinophils Percent Auto 0.6 % (0-4); Hematocrit 43.4 % (42-52); Hemoglobin 14.3 g/dl (14.0-18.0); Imm Gran Abs Auto 0.11 X10*3/uL (0.00-0.03); Imm Gran Pct Auto 1.1 % (0.0-0.4); Lymphocytes Absolute Auto 1.5 X10*3/uL (1.2-4.9); Lymphocytes Percent Auto 14.7 % (20-40); Mean Corpuscular HGB Conc 32.9 g/dl (31.0-36.0); Mean Corpuscular Hemoglobin 30.6 pg (27.0-33.0); Mean Corpuscular Volume 92.9 fL (80-98); Monocytes Absolute Auto 0.8 X10*3/uL (0.1-1.2); Monocytes Percent Auto 7.7 % (2-11); Neutrophils Absolute Auto 7.7 X10*3/uL (2.0-8.3); Neutrophils Percent Auto 75.6 % (45-73); Platelet Count 228 X10*3/uL (160-400); Red Blood Count 4.67 X10*6/uL (4.60-5.80); White Blood Count 10.2 X10*3/uL (4.8-10.8)
[2020-11-05 18:07] LABS: Prothrombin Time 11.4 SEC (10.8-13.0)
[2020-11-05 18:10] LABS: Partial Thromboplastin Time 31.2 SEC (24.1-38.0)
[2020-11-05 18:28] LABS: B Type Natriuretic Peptide 100 pg/mL (<100); Troponin-I High Sensitivity 21.8 ng/L (<3.5-35.0)
[2020-11-05 18:29] LABS: Alanine Aminotransferase 14 U/L (0-40); Albumin Level 4.2 g/dL (3.5-5.0); Alkaline Phosphatase 72 U/L (39-117); Anion Gap 16 (12-20); Aspartate Amino Transferase 15 U/L (5-37); Bilirubin Direct < 0.2 mg/dL (0.0-0.5); Bilirubin Total < 0.2 mg/dL (0.0-1.0); Blood Urea Nitrogen 20 mg/dL (9-16); Calcium 9.3 mg/dL (8.4-10.2); Carbon Dioxide 27 mmol/L (22-29); Chloride 98 mmol/L (96-108); Creatinine Clr Calc Pharmacy 92.7; Estimated Glomerular Filt Rate > 60; Glucose Random 162 mg/dL (60-115); Lipase 33 U/L (8-78); Potassium 4.2 mmol/L (3.3-5.1); Sodium 137 mmol/L (135-145); Total Protein 6.5 g/dL (6.5-8.0)
[2020-11-05 18:30] LABS: Lactic Acid 2.3 mmol/L (0.5-2.0)
[2020-11-05 18:32] VITALS: BP 147/89; PULSE 96; RESP 24; O2SAT 95
[2020-11-05] MEDS: LORazepam 2 MG/ML VIAL IVPUSH (18:33)
--- NOTE | 2020-11-05 19:15 | PC.NURSE ---
ASSUMED CARE OF PT. PT RESTING IN STRETCHER, VS OBTAINED. PT WAKES TO VOICE AND DENIES ANY COMPLAINTS. RESPIRATIONS EASY, N/L ON 2L NC WITH PO 96%. PT DENIES ANY CP AT THIS TIME. PT AWAITING FOR CT.
[2020-11-05] MEDS: Azithromycin 500 MG in 0.9 % Sodium Chloride 250 ML 125 MG IV (19:30)
--- NOTE | 2020-11-05 19:30 | PC.NURSE ---
PT TO CT IN STRETCHER.
[2020-11-05 19:32] LABS: D Dimer < 200 NG/ML
[2020-11-05 19:43] VITALS: BP 152/87; PULSE 90; RESP 22; O2SAT 99
--- NOTE | 2020-11-05 19:50 | PC.NURSE ---
PT UP TO RESTROOM WITH STEADY EVEN GAIT AND RETURN DENIES CP OR ANY OTHER COMPLAINTS. PT ON MONITOR WITH HR 106, PO 99% ON RA, PT A&OX3, SKIN W/D WATCHING RED SOX BBALL ON TV WITH SPOUSE AT BEDSIDE. PT AWAITING FOR PENDING RESULTS. PT REQUESTING TO GO HOME. WILL CONTINUE TO MONITOR PT.
[2020-11-05 19:54] LABS: Reflex Lactate? Lactic Acid Added
[2020-11-05] MEDS: cefTRIAXone sodium 1 GM in 0.9 % Sodium Chloride 50 ML IV (20:00)
[2020-11-05] MEDS: iohexoL 350 MG/ML 100 ML INFUS..BTL IV (20:03)
--- NOTE | 2020-11-05 20:03 | PC.NURSE ---
PT RETURNS TO ROOM IN [facility] IN [facility]. AWAITING PENDING RESULTS.
--- NOTE | 2020-11-05 20:12 | PC.NURSE ---
PT REQUESTING TO EAT. PA AWARE. REPEAT LACTIC ACID DRAWN AT THIS TIME. WILL CONTINUE TO MONITOR PT.
[2020-11-05 20:25] VITALS: BP 150/69; PULSE 96; RESP 20; O2SAT 94
[2020-11-05 20:55] LABS: ~Lactic Acid-LAB USE ONLY 1.3 mmol/L (0.5-2.0)
[2020-11-05] MEDS: 0.9 % Sodium Chloride 1,000 ML 999 ML IV ×2 (21:01→22:35)
[2020-11-05] MEDS: methylPREDNISolone Sod Succ 125 MG/2 ML VIAL IVPUSH (21:35)
--- NOTE | 2020-11-05 21:53 | PC.NURSE ---
REPEAT TROPONIN DRAWN TO LAB.
[2020-11-05 21:56] VITALS: PULSE 88; O2SAT 94
[2020-11-05] MEDS: Albuterol/Iprat 2.5/0.5MG 3 ML AMPUL.NEB INHALE (21:56)
[2020-11-05 22:05] LABS: COVID-19 Test Negative (Negative); IDNOW Serial# 9DD0AD1C
[2020-11-05 22:29] VITALS: BP 151/89; PULSE 88; RESP 16; O2SAT 92
[2020-11-05 22:31] LABS: Troponin-I High Sensitivity 22.8 ng/L (<3.5-35.0)
[2020-11-05] MEDS: Magnesium Sulfate/D5W 1 GM/100 ML PIGGYBACK IV (22:35)
[2020-11-06] VITALS (11 sets, daily range): BP systolic 112–155; BP diastolic 61–90; PULSE 78–109; RESP 16–20; TEMP 36.1–36.9; O2SAT 92–996
--- NOTE | 2020-11-06 03:05 | PC.NURSE ---
PT C/O LOWER ABD PAIN RATING PAIN 8/10. WILL CONTINUE TO MONITOR PT.
[2020-11-06] MEDS: Insulin Glargine,Hum.rec.anlog 100 UNIT/ML 10 ML VIAL 45 UNIT SUBCUT ×2 (03:30→20:10)
[2020-11-06] MEDS: Aspirin Enteric Coated 81 MG TABLET.DR PO ×2 (03:47→20:09)
[2020-11-06] MEDS: QUEtiapine Fumarate 50 MG TABLET 150 MG PO (03:47)
[2020-11-06] MEDS: oxyCODONE HCl Immed Release 5 MG TABLET PO ×3 (03:48→17:49)
[2020-11-06] MEDS: Multivitamin TABLET 1 TAB PO (03:50)
[2020-11-06] MEDS: busPIRone HCl 5 MG TABLET PO ×3 (03:51→20:09)
[2020-11-06] MEDS: 0.9 % Sodium Chloride Flush 3 ML SYRINGE IVFLUSH ×4 (03:51→20:11)
[2020-11-06] MEDS: lisinopriL 10 MG TABLET PO (03:54)
[2020-11-06 03:59] LABS: Glucose, Whole Blood 215 mg/dL (60-115)
--- NOTE | 2020-11-06 04:24 | PC.NURSE ---
PT AWAKE AND C/O PAIN, HOSPITALIST AWARE AND ORDERED PAIN MEDS PER EMAR. BS OBTAINED.
--- NOTE | 2020-11-06 05:35 | PM.IMHP ---
History of Present Illness Date of Service: 11/05/20 Chief Complaint: SOB this is a 65-year-old male with past medical history of COPD, diabetes, diastolic dysfunction, obesity, alcohol abuse who was discharged from the hospital and may secondary to COPD exacerbation, was discharged to rehab for COPD returns stating that he has worsened shortness of breath, cough, sputum production for the past 3 days. Patient is also complaining of generalized abdominal pain with nausea and no vomiting. No diarrhea or constipation. No urinary symptoms, no fever or chills, no headache, no change in vision, no chest pain, patient is also complaining of left foot cramping and swelling That started while in the ED. Patient denies any erythema or pain In his foot. On arrival to the ED patient vitals significant for temp of 98.8?, heart rate of 107, respiratory rate of 22, satting 95% on room air, While in the ED pt O2 did drop to the mid 80s. lab significant for WBC count 10.2, lactic acid of 2.3 that normalized after fluids, BMP this 100, COVID-19 negative, imaging including chest CT angiogram showed no PE, no pulmonary congestion, and no pneumonia Abdominal CT showed colonic diverticulosis without CT evidence of active diverticulitis venous duplex of the left foot showed subcutaneous edema with no DVT demonstrated foot asks her a shows no displaced fracture, mild osteoarthritis patient will be admitted for further management Review of Systems Review of Systems: Yes all other systems are reviewed and are negative [facility] Medical History (Updated 11/06/20 @ 05:45 by Danuta Foreman MD) LAUREN (acute kidney injury) Alcohol abuse COPD (chronic obstructive pulmonary disease) Diabetes mellitus type 1 Diastolic dysfunction Diastolic heart failure HLD (hyperlipidemia) Hypertension Nonrheumatic aortic (valve) stenosis Obesity Family History Father Diabetes Mother Diabetes Social History (Updated 11/06/20 @ 05:43 by Danuta Foreman MD) Household Members: None Housing: Apartment Do you presently have visiting nurse or other home services: No Alcohol intake: former Patient Tobacco Use Status: Former Tobacco user Smoked in Last 30 Days: No Second Hand Smoke Exposure: No Use of substances other than those prescribed or required for medical reasons: No Advance Directives: No Advance Directives Information Provided: Yes service: No Current occupational status: disabled Meds Allergies Allergy/AdvReac Type Severity Reaction Status Date / Time ENVIRONMENTAL Allergy Mild SNEEZING, Uncoded 09/26/20 17:14 WATERY EYES Active Medications: Current Medications Generic Name Dose Route Start Last Admin Trade Name Freq PRN Reason Stop Dose Admin Acetaminophen 650 mg 11/06/20 03:10 Acetaminophen 325 Mg Tablet PO Q6H PRN Pain, Mild (Pain Scale 1-3) Albuterol/Ipratropium 3 ml 11/06/20 08:00 Albuterol/Iprat 2.5/0.5mg 3 Ml Ampul.Neb INHALE RQ4H WHILE AWAKE [facility] Aspirin 81 mg 11/06/20 03:10 11/06/20 03:47 Aspirin Enteric Coated 81 Mg Tablet. PO 81 mg BEDTIME [facility] Administration Atorvastatin Calcium 10 mg 11/06/20 21:00 Atorvastatin Calcium 10 Mg Tablet PO BEDTIME [facility] Buspirone HCl 5 mg 11/06/20 03:10 11/06/20 03:51 Buspirone Hcl 5 Mg Tablet PO 5 mg BID [facility] Administration Docusate Sodium 100 mg 11/06/20 03:10 Docusate Sodium 100 Mg Capsule PO DAILY PRN Constipation Enoxaparin Sodium 40 mg 11/06/20 06:00 Enoxaparin Sodium 40 Mg/0.4 Ml Syringe SUBCUT Q24H [facility] Folic Acid 1 mg 11/06/20 18:00 Folic Acid 1 Mg Tablet PO DAILY@1800 [facility] Gabapentin 600 mg 11/06/20 09:00 Gabapentin 300 Mg Capsule PO TID [facility] Guaifenesin/Codeine Phosphate 10 ml 11/06/20 03:10 Guaifen/Codeine Sf 200/20/10ml 10 Ml Liquid PO Q4H PRN cough Insulin Glargine 45 unit 11/06/20 03:10 11/06/20 03:30 Insulin Glargine,Hum.Rec.Anlog 100 Unit/Ml 10 Ml Vial SUBCUT 45 unit BEDTIME [facility] Administration Lisinopril 10 mg 11/06/20 03:10 11/06/20 03:54 Lisinopril 10 Mg Tablet PO 10 mg DAILY [facility] Administration Protocol Methylprednisolone Sodium Succinate 40 mg 11/06/20 09:00 Methylprednisolone Sod Succ 40 Mg/Ml Vial IVPUSH Q12H [facility] Multivitamins/Vitamin C 1 tab 11/06/20 03:10 11/06/20 03:50 Multivitamin Tablet PO 1 tab DAILY [facility] Administration Non-Formulary Medication 1 drop 11/06/20 09:00 Loteprednol Etabonate EYE-BOTH TID [facility] Omeprazole 20 mg 11/06/20 06:30 Omeprazole 20 [place]. PO 0630 [facility] Ondansetron HCl 4 mg 11/06/20 03:10 Ondansetron Hcl 4 Mg/2 Ml Vial IVPUSH Q8H PRN Nausea and Vomiting Oxycodone HCl 5 mg 11/06/20 03:10 11/06/20 03:48 Oxycodone Hcl Immed Release 5 Mg Tablet PO 5 mg BID PRN Administration pain Pharmacy Consult 1 each 11/05/20 21:53 Consult Rx Perform Med Rec MISCELLANE ONCE PRN Consult order Quetiapine Fumarate 150 mg 11/06/20 03:10 11/06/20 03:47 Quetiapine Fumarate 50 Mg Tablet PO 150 mg BEDTIME [facility] Administration Sodium Chloride 3 ml 11/06/20 03:10 11/06/20 03:51 0.9 % Sodium Chloride Flush 3 Ml Syringe IVFLUSH 3 ml QSHIFT [facility] Administration Thiamine HCl 100 mg 11/06/20 18:00 Thiamine Hcl 100 Mg Tablet PO DAILY@1800 [facility] Home Medications Medication Instructions Recorded Confirmed Last Taken Type aspirin 81 mg tablet,delayed 81 mg PO BEDTIME 06/03/20 11/05/20 09/26/20 History release buspirone 5 mg tablet 5 mg PO BID 06/03/20 11/05/20 Unknown History celecoxib 50 mg capsule 50 mg PO BID cap 06/03/20 11/05/20 09/26/20 History fluticasone propionate 50 1 - 2 spray INTRANASAL DAILY PRN 06/03/20 11/05/20 Unknown History mcg/actuation nasal spray,suspension folic acid 1 mg tablet 1 mg PO DAILY@1800 06/03/20 11/05/20 Unknown History insulin glargine 100 unit/mL 45 unit SUBCUT BEDTIME 06/03/20 11/05/20 11/04/20 History subcutaneous solution lisinopril 10 mg tablet 10 mg PO QAM 06/03/20 11/05/20 09/26/20 History multivitamin 1 tab PO QAM 06/03/20 11/05/20 09/26/20 History omega-3 fatty acids-fish oil 340 1 cap PO QAM 06/03/20 11/05/20 09/26/20 History mg-1,000 mg capsule omeprazole 20 mg capsule,delayed 20 mg PO QAM 06/03/20 11/05/20 09/26/20 History release simvastatin 20 mg tablet 20 mg PO BEDTIME 06/03/20 11/05/20 09/25/20 History thiamine HCl (vitamin B1) 100 mg 100 mg PO DAILY@1800 06/03/20 11/05/20 09/26/20 History tablet albuterol sulfate 1 amp INHALATION QID 09/26/20 11/05/20 09/26/20 History albuterol sulfate 2 puff PO Q4-6H PRN 09/26/20 11/05/20 Unknown History gabapentin 2 cap PO TID 09/26/20 11/05/20 09/26/20 History loteprednol etabonate 1 drp OPHTHALMIC (EYE) TID 09/26/20 11/05/20 09/26/20 History quetiapine 3 tab PO BEDTIME 09/27/20 11/05/20 Unknown History codeine-guaifenesin [Virtussin AC] 10 ml PO Q4-6H PRN 11/05/20 11/05/20 Unknown History empagliflozin [Jardiance] 1 tab PO QAM 11/05/20 11/05/20 Unknown History insulin aspart U-100 [Novolog See Protocol SUBCUT USEASDIRECTD 11/05/20 11/05/20 Unknown History U-100 Insulin aspart] prednisone 5 mg PO DAILY 11/05/20 11/05/20 Unknown History Physical Exam Vital Signs and Narrative: Vital Signs: Last Vital Signs Temp 98.8 F 11/05/20 17:05 Pulse 86 11/06/20 03:54 Resp 16 11/06/20 00:00 BP 155/73 H 11/06/20 03:54 Pulse Ox 996 H 11/06/20 02:00 Body Mass Index 34.9 Const: General: cooperative and no acute distress Orientation/consciousness: patient oriented x3 Eyes: General: appearance normal, both eyes and all related structures Resp: Other: audible wheezing, coughing Effort & Inspection: normal respiratory effort and able to speak in complete sentences Cardio: Rate: regular rate Rhythm: regular rhythm GI: Palpation (GI): Soft to palpation Auscultation: normal bowel sounds Skin: General skin exam: no rashes or lesions noted Neuro: General: patient oriented x3 Cognition (Neuro): normal cognition Extrem: Other: left foot swelling, no erythema, no warmth, tender General: Yes normal to inspection Results Labs CBC and Chem 7: 11/05/20 17:49 11/05/20 17:49 Labs: Laboratory Results - last 24 hr 11/05/20 11/05/20 11/05/20 17:49 17:49 17:49 MCV 92.9 MCH 30.6 MCHC 32.9 RDW 14.0 Plt Count 228 D MPV 9.0 L Immature Gran % (Auto) 1.1 H Neut % (Auto) 75.6 H Lymph % (Auto) 14.7 L Kendall % (Auto) 7.7 Eos % (Auto) 0.6 Baso % (Auto) 0.3 Lymph # (Auto) 1.5 Kendall # (Auto) 0.8 Eos # (Auto) 0.1 Baso # (Auto) 0.0 Abs Immat Gran (auto) 0.11 H Absolute Neuts (auto) 7.7 Absolute Nucleated RBC 0.000 Nucleated RBC % (auto) 0.0 PT INR APTT D-Dimer Anion Gap Estim Creat Clear Calc Estimated GFR POC Glucose Random Glucose Lactic Acid 2.3 H* Lactic Acid Fup @ 2Hr Calcium Total Bilirubin Direct Bilirubin AST ALT Alkaline Phosphatase Troponin I High Sens 21.8 B-Natriuretic Peptide 100 Total Protein Albumin Lipase COVID-19 ([facility]) COVID-19 Clin Com 11/05/20 11/05/20 11/05/20 17:49 17:50 20:25 MCV MCH MCHC RDW Plt Count MPV Immature Gran % (Auto) Neut % (Auto) Lymph % (Auto) Kendall % (Auto) Eos % (Auto) Baso % (Auto) Lymph # (Auto) Kendall # (Auto) Eos # (Auto) Baso # (Auto) Abs Immat Gran (auto) Absolute Neuts (auto) Absolute Nucleated RBC Nucleated RBC % (auto) PT 11.4 INR 1.0 APTT 31.2 D-Dimer < 200 Anion Gap 16 Estim Creat Clear Calc 92.7 Estimated GFR > 60 POC Glucose Random Glucose 162 H Lactic Acid Lactic Acid Fup @ 2Hr 1.3 Calcium 9.3 D Total Bilirubin < 0.2 Direct Bilirubin < 0.2 AST 15 ALT 14 Alkaline Phosphatase 72 Troponin I High Sens B-Natriuretic Peptide Total Protein 6.5 Albumin 4.2 Lipase 33 COVID-19 ([facility]) COVID-19 Clin Com 11/05/20 11/05/20 11/06/20 21:40 21:51 03:53 MCV MCH MCHC RDW Plt Count MPV Immature Gran % (Auto) Neut % (Auto) Lymph % (Auto) Kendall % (Auto) Eos % (Auto) Baso % (Auto) Lymph # (Auto) Kendall # (Auto) Eos # (Auto) Baso # (Auto) Abs Immat Gran (auto) Absolute Neuts (auto) Absolute Nucleated RBC Nucleated RBC % (auto) PT INR APTT D-Dimer Anion Gap Estim Creat Clear Calc Estimated GFR POC Glucose 215 H Random Glucose Lactic Acid Lactic Acid Fup @ 2Hr Calcium Total Bilirubin Direct Bilirubin AST ALT Alkaline Phosphatase Troponin I High Sens 22.8 B-Natriuretic Peptide Total Protein Albumin Lipase COVID-19 ([facility]) Negative COVID-19 Clin Com See Note Imaging Radiologist's Impressions: Impressions Chest X-Ray 11/05/20 17:16 IMPRESSION: No acute process. Mild increased interstitial markings in left lower lobe. Venous Duplex 11/05/20 17:52 IMPRESSION: No DVT demonstrated in the left lower extremity. Left lower leg subcutaneous edema. Abdomen/Pelvis CT 11/05/20 19:03 IMPRESSION: 1. No pulmonary embolus or acute pulmonary process identified. 2. Colonic diverticulosis without CT evidence to active diverticulitis. This CT examination was performed using dose optimization techniques as appropriate, variously including the following: *Automated exposure control *Adjustment of mA and/or kV according to patient size (this includes techniques or standardized protocols for targeted exams where dose is matched to indication/reason for exam; i.e. extremities or head) *Use of iterative reconstruction technique Chest CTA 11/05/20 19:03 IMPRESSION: 1. No pulmonary embolus or acute pulmonary process identified. 2. Colonic diverticulosis without CT evidence to active diverticulitis. This CT examination was performed using dose optimization techniques as appropriate, variously including the following: *Automated exposure control *Adjustment of mA and/or kV according to patient size (this includes techniques or standardized protocols for targeted exams where dose is matched to indication/reason for exam; i.e. extremities or head) *Use of iterative reconstruction technique Foot X-Ray 11/05/20 20:35 IMPRESSION: 1. No displaced fracture. 2. Mild osteoarthritis at the 1st metatarsophalangeal joint, hallux sesamoids, and 1st interphalangeal joint. Assessment and Plan (1) Acute exacerbation of chronic obstructive airways disease: Status: Acute (2) Acute respiratory failure with hypoxia: Status: Acute (3) Abdominal pain: Status: Acute (4) Foot pain: Status: Acute This 65-year-old male diastolic heart failure, COPD who presents to the hospital with shortness of breath # acute exacerbation of COPD - cough, sputum production, dyspnea - no evidence of PE, pneumonia, or CHF exacerbation on CT angiogram - at this time will start him on Solu-Medrol, DuoNeb p.r.n. and scheduled # acute hypoxic respiratory failure - not on oxygen at baseline - currently on 3 L satting in the low 90s - will treat his COPD as above, titrate O2 as tolerated # abdominal pain - unclear etiology - no evidence of constipation, has no diarrhea, no vomiting, CT abdomen negative for any acute process - will monitor - pain management with Tylenol # foot pain - possibly secondary to gout - no erythema, no warmth, some edema with tenderness - no evidence of injury - x-ray and venous duplex negative - will obtain a uric acid - muscle relaxants and Tylenol p.r.n. # history of diastolic heart failure - no exacerbation - BNP negative - continue to monitor # diabetes - continue home glargine - low-dose sliding scale insulin - diabetic diet DVT prophylaxis: Lovenox Quality Stroke Does the patient have a stroke diagnosis?: No VTE Prior VTE?: No VTE Risk Level:: Medical - moderate - high VTE Device Contraindication: Treatment Not Indicated VTE Drug Contraindication: N/A - Med Ordered
--- NOTE | 2020-11-06 05:57 | PC.NURSE ---
LAB HERE TO DRAW AM LABS
[2020-11-06 06:18] LABS: Basophils Percent Auto 0.1 % (0-2); Hematocrit 43.4 % (42-52); Hemoglobin 14.1 g/dl (14.0-18.0); Imm Gran Abs Auto 0.05 X10*3/uL (0.00-0.03); Imm Gran Pct Auto 0.6 % (0.0-0.4); Lymphocytes Absolute Auto 0.4 X10*3/uL (1.2-4.9); Lymphocytes Percent Auto 4.6 % (20-40); MANUAL DIFF FLAG SCAN; Mean Corpuscular HGB Conc 32.5 g/dl (31.0-36.0); Mean Corpuscular Hemoglobin 30.8 pg (27.0-33.0); Mean Corpuscular Volume 94.8 fL (80-98); Mean Platelet Volume 9.1 fL (9.4-12.4); Monocytes Absolute Auto 0.1 X10*3/uL (0.1-1.2); Monocytes Percent Auto 0.6 % (2-11); Neutrophils Absolute Auto 7.7 X10*3/uL (2.0-8.3); Neutrophils Percent Auto 94.1 % (45-73); Platelet Count 182 X10*3/uL (160-400); Red Blood Count 4.58 X10*6/uL (4.60-5.80); SCAN SMEAR FLAG 1; White Blood Count 8.2 X10*3/uL (4.8-10.8)
[2020-11-06] MEDS: Enoxaparin Sodium 40 MG/0.4 ML SYRINGE SUBCUT (06:43)
[2020-11-06] MEDS: Omeprazole 20 MG CAPSULE.DR PO (06:43)
[2020-11-06 06:47] LABS: Anion Gap 16 (12-20); Blood Urea Nitrogen 21 mg/dL (9-16); Calcium 8.4 mg/dL (8.4-10.2); Carbon Dioxide 24 mmol/L (22-29); Chloride 100 mmol/L (96-108); Estimated Glomerular Filt Rate > 60; Glucose Random 362 mg/dL (60-115); Potassium 4.7 mmol/L (3.3-5.1); Sodium 135 mmol/L (135-145)
--- NOTE | 2020-11-06 06:52 | PC.NURSE ---
[facility] UNABLE TO TAKE REPORT AND WILL RETURN CALL.
[2020-11-06 06:59] LABS: Uric Acid 5.3 mg/dL (3.4-7.0)
--- NOTE | 2020-11-06 07:01 | PC.NURSE ---
REPORT GIVEN TO FLOOR.
[2020-11-06] MEDS: Albuterol/Iprat 2.5/0.5MG 3 ML AMPUL.NEB INHALE ×3 (08:04→19:25)
--- NOTE | 2020-11-06 08:42 | MHC.CM.PN ---
Patient lives in an apartment by himself, had no home O2, and does not want VNA. Patient was recently dc from [facility] to [facility] for [facility] and Patient does not want to return; his goal for dc is home/no services. CM has initiated and will follow for dc planning. CM met with Patient at bedside and addressed IMM with him, providing him with the original and placing a copy on the chart. PCP is Dr. York Name and HCP is on file.
[2020-11-06 08:48] LABS: Glucose, Whole Blood 397 mg/dL (60-115)
--- NOTE | 2020-11-06 08:49 | MHC.CM.PN ---
Patient's Sister-in Law/Laura @ [phone] is HCP.
[2020-11-06] MEDS: Gabapentin 300 MG CAPSULE 600 MG PO ×3 (08:54→20:08)
[2020-11-06] MEDS: Insulin Lispro 100 UNIT/ML 3 ML VIAL SUBCUT ×4 (08:55→20:09)
[2020-11-06] MEDS: methylPREDNISolone Sod Succ 40 MG/ML VIAL IVPUSH (08:55)
[2020-11-06 08:59] LABS: SLIDE REVIEW VERIFIED
[2020-11-06] MEDS: guaiFEN/Codeine SF 200/20/10ML 10 ML LIQUID PO ×2 (10:26→17:51)
--- NOTE | 2020-11-06 10:39 | P.PNIM_ITS ---
Subjective Subjective Date of Service: 11/06/20 Interval History: Seen in f/u for copd exacerbtion, c/o feeling sob but seems fairly comfortable. Review of Systems Gen: no fever Resp: no sob, no cough CV: no chest, no OLGUIN, no leg edema GI: No n/v, no abd pain Neuro: No confusion Physical Exam Vital Signs: Vital Signs: Last Vital Signs Temp 96.9 F 11/06/20 08:45 Pulse 109 H 11/06/20 08:45 Resp 18 11/06/20 08:45 BP 140/80 H 11/06/20 08:45 Pulse Ox 95 11/06/20 08:45 Body Mass Index 34.9 Const: Other: General: AO X 3, no acute distress Resp: CTA bilateral CVS: S1,S2,RRR GI: +BS, NT, no distention Skin: No rash Neuro: motor grossly intact Psych: appropriate affect Objective Data Current Medications Generic Name Dose Route Start Last Admin Trade Name Freq PRN Reason Stop Dose Admin Acetaminophen 650 mg 11/06/20 03:10 Acetaminophen 325 Mg Tablet PO Q6H PRN Pain, Mild (Pain Scale 1-3) Albuterol/Ipratropium 3 ml 11/06/20 08:00 11/06/20 10:24 Albuterol/Iprat 2.5/0.5mg 3 Ml Ampul.Neb INHALE Not Given RQ4H WHILE AWAKE JOURDAN Aspirin 81 mg 11/06/20 03:10 11/06/20 03:47 Aspirin Enteric Coated 81 Mg Tablet.Dr PO 81 mg BEDTIME JOURDAN Administration Atorvastatin Calcium 10 mg 11/06/20 21:00 Atorvastatin Calcium 10 Mg Tablet PO BEDTIME JOURDAN Buspirone HCl 5 mg 11/06/20 03:10 11/06/20 08:54 Buspirone Hcl 5 Mg Tablet PO 5 mg BID JOURDAN Administration Cyclobenzaprine HCl 5 mg 11/06/20 05:36 Cyclobenzaprine Hcl 5 Mg Tablet PO TID PRN Muscle Spasm Docusate Sodium 100 mg 11/06/20 03:10 Docusate Sodium 100 Mg Capsule PO DAILY PRN Constipation Enoxaparin Sodium 40 mg 11/06/20 06:00 11/06/20 06:43 Enoxaparin Sodium 40 Mg/0.4 Ml Syringe SUBCUT 40 mg Q24H JOURDAN Administration Folic Acid 1 mg 11/06/20 18:00 Folic Acid 1 Mg Tablet PO DAILY@1800 [facility] Gabapentin 600 mg 11/06/20 09:00 11/06/20 08:54 Gabapentin 300 Mg Capsule PO 600 mg TID JOURDAN Administration Guaifenesin/Codeine Phosphate 10 ml 11/06/20 03:10 11/06/20 10:26 Guaifen/Codeine Sf 200/20/10ml 10 Ml Liquid PO 10 ml Q4H PRN Administration cough Guaifenesin/Dextromethorphan 5 ml 11/06/20 05:36 Guaifenesin Dm 100/10/5 Ml 5 Ml Syrup PO Q4H PRN Cough Insulin Glargine 45 unit 11/06/20 03:10 11/06/20 03:30 Insulin Glargine,Hum.Rec.Anlog 100 Unit/Ml 10 Ml Vial SUBCUT 45 unit BEDTIME JOURDAN Administration Insulin Human Lispro 0 unit 11/06/20 07:30 11/06/20 08:55 Insulin Lispro 100 Unit/Ml 3 Ml Vial SUBCUT 10 unit QIDACHS [facility] Administration Protocol Lisinopril 10 mg 11/06/20 03:10 11/06/20 03:54 Lisinopril 10 Mg Tablet PO 10 mg DAILY JOURDAN Administration Protocol Methylprednisolone Sodium Succinate 40 mg 11/06/20 09:00 11/06/20 08:55 Methylprednisolone Sod Succ 40 Mg/Ml Vial IVPUSH 40 mg Q12H JOURDAN Administration Multivitamins/Vitamin C 1 tab 11/06/20 03:10 11/06/20 03:50 Multivitamin Tablet PO 1 tab DAILY JOURDAN Administration Omeprazole 20 mg 11/06/20 06:30 11/06/20 06:43 Omeprazole 20 Mg Capsule.Dr PO 20 mg 30 JOURDAN Administration Ondansetron HCl 4 mg 11/06/20 03:10 Ondansetron Hcl 4 Mg/2 Ml Vial IVPUSH Q8H PRN Nausea and Vomiting Oxycodone HCl 5 mg 11/06/20 03:10 11/06/20 03:48 Oxycodone Hcl Immed Release 5 Mg Tablet PO 5 mg BID PRN Administration pain Pharmacy Consult 1 each 11/05/20 21:53 Consult Rx Perform Med Rec MISCELLANE ONCE PRN Consult order Prednisolone Acetate 1 drop 11/06/20 15:00 Prednisolone Acetate 1 % Oph Susp 5 Ml Drpbtl EYE-BOTH TID [facility] Quetiapine Fumarate 150 mg 11/06/20 03:10 11/06/20 03:47 Quetiapine Fumarate 50 Mg Tablet PO 150 mg BEDTIME JOURDAN Administration Sodium Chloride 3 ml 11/06/20 03:10 11/06/20 08:55 0.9 % Sodium Chloride Flush 3 Ml Syringe IVFLUSH 3 ml QSHIFT JOURDAN Administration Thiamine HCl 100 mg 11/06/20 18:00 Thiamine Hcl 100 Mg Tablet PO DAILY@1800 [facility] Labs CBC & Chem 7: 11/06/20 05:59 11/06/20 05:59 Labs: Laboratory Results - last 24 hr 11/05/20 11/05/20 11/05/20 17:49 17:49 17:49 WBC 10.2 RBC 4.67 Hgb 14.3 Hct 43.4 MCV 92.9 MCH 30.6 MCHC 32.9 RDW 14.0 Plt Count 228 D MPV 9.0 L Immature Gran % (Auto) 1.1 H Neut % (Auto) 75.6 H Lymph % (Auto) 14.7 L Tama % (Auto) 7.7 Eos % (Auto) 0.6 Baso % (Auto) 0.3 Lymph # (Auto) 1.5 Tama # (Auto) 0.8 Eos # (Auto) 0.1 Baso # (Auto) 0.0 Abs Immat Gran (auto) 0.11 H Absolute Neuts (auto) 7.7 Absolute Nucleated RBC 0.000 Nucleated RBC % (auto) 0.0 Smear Tech's Comments PT INR APTT D-Dimer Sodium Potassium Chloride Carbon Dioxide Anion Gap BUN Creatinine Estim Creat Clear Calc Estimated GFR POC Glucose Random Glucose Lactic Acid 2.3 H* Lactic Acid Fup @ 2Hr Uric Acid Calcium Total Bilirubin Direct Bilirubin AST ALT Alkaline Phosphatase Troponin I High Sens 21.8 B-Natriuretic Peptide 100 Total Protein Albumin Lipase COVID-19 (ELIER) COVID-19 Clin Com 11/05/20 11/05/20 11/05/20 17:49 17:50 20:25 WBC RBC Hgb Hct MCV MCH MCHC RDW Plt Count MPV Immature Gran % (Auto) Neut % (Auto) Lymph % (Auto) Tama % (Auto) Eos % (Auto) Baso % (Auto) Lymph # (Auto) Tama # (Auto) Eos # (Auto) Baso # (Auto) Abs Immat Gran (auto) Absolute Neuts (auto) Absolute Nucleated RBC Nucleated RBC % (auto) Smear Tech's Comments PT 11.4 INR 1.0 APTT 31.2 D-Dimer < 200 Sodium 137 Potassium 4.2 Chloride 98 Carbon Dioxide 27 Anion Gap 16 BUN 20 H Creatinine 0.93 Estim Creat Clear Calc 92.7 Estimated GFR > 60 POC Glucose Random Glucose 162 H Lactic Acid Lactic Acid Fup @ 2Hr 1.3 Uric Acid Calcium 9.3 D Total Bilirubin < 0.2 Direct Bilirubin < 0.2 AST 15 ALT 14 Alkaline Phosphatase 72 Troponin I High Sens B-Natriuretic Peptide Total Protein 6.5 Albumin 4.2 Lipase 33 COVID-19 (ELIER) COVID-[facility] 11/05/20 11/05/20 11/06/20 21:40 21:51 03:53 WBC RBC Hgb Hct MCV MCH MCHC RDW Plt Count MPV Immature Gran % (Auto) Neut % (Auto) Lymph % (Auto) Tama % (Auto) Eos % (Auto) Baso % (Auto) Lymph # (Auto) Tama # (Auto) Eos # (Auto) Baso # (Auto) Abs Immat Gran (auto) Absolute Neuts (auto) Absolute Nucleated RBC Nucleated RBC % (auto) Smear Tech's Comments PT INR APTT D-Dimer Sodium Potassium Chloride Carbon Dioxide Anion Gap BUN Creatinine Estim Creat Clear Calc Estimated GFR POC Glucose 215 H Random Glucose Lactic Acid Lactic Acid Fup @ 2Hr Uric Acid Calcium Total Bilirubin Direct Bilirubin AST ALT Alkaline Phosphatase Troponin I High Sens 22.8 B-Natriuretic Peptide Total Protein Albumin Lipase COVID-19 (ELIER) Negative [facility] See Note 11/06/20 11/06/20 11/06/20 05:59 05:59 05:59 WBC 8.2 RBC 4.58 L Hgb 14.1 Hct 43.4 MCV 94.8 MCH 30.8 MCHC 32.5 RDW 14.0 Plt Count 182 MPV 9.1 L Immature Gran % (Auto) 0.6 H Neut % (Auto) 94.1 H Lymph % (Auto) 4.6 L Tama % (Auto) 0.6 L Eos % (Auto) 0.0 Baso % (Auto) 0.1 Lymph # (Auto) 0.4 L Tama # (Auto) 0.1 Eos # (Auto) 0.0 Baso # (Auto) 0.0 Abs Immat Gran (auto) 0.05 H Absolute Neuts (auto) 7.7 Absolute Nucleated RBC 0.000 Nucleated RBC % (auto) 0.0 Smear Tech's Comments VERIFIED PT INR APTT D-Dimer Sodium 135 Potassium 4.7 Chloride 100 Carbon Dioxide 24 Anion Gap 16 BUN 21 H Creatinine 0.99 Estim Creat Clear Calc 87.0 Estimated GFR > 60 POC Glucose Random Glucose 362 H* Lactic Acid Lactic Acid Fup @ 2Hr Uric Acid 5.3 Calcium 8.4 D Total Bilirubin Direct Bilirubin AST ALT Alkaline Phosphatase Troponin I High Sens B-Natriuretic Peptide Total Protein Albumin Lipase COVID-19 (ELIER) [facility] 11/06/20 08:42 WBC RBC Hgb Hct MCV MCH MCHC RDW Plt Count MPV Immature Gran % (Auto) Neut % (Auto) Lymph % (Auto) Tama % (Auto) Eos % (Auto) Baso % (Auto) Lymph # (Auto) Tama # (Auto) Eos # (Auto) Baso # (Auto) Abs Immat Gran (auto) Absolute Neuts (auto) Absolute Nucleated RBC Nucleated RBC % (auto) Smear Tech's Comments PT INR APTT D-Dimer Sodium Potassium Chloride Carbon Dioxide Anion Gap BUN Creatinine Estim Creat Clear Calc Estimated GFR POC Glucose 397 H* Random Glucose Lactic Acid Lactic Acid Fup @ 2Hr Uric Acid Calcium Total Bilirubin Direct Bilirubin AST ALT Alkaline Phosphatase Troponin I High Sens B-Natriuretic Peptide Total Protein Albumin Lipase COVID-19 (ELIER) [facility] Quality Stroke Does the patient have a stroke diagnosis?: No VTE Prior VTE?: No VTE Risk Level:: Medical - moderate - high VTE Device Contraindication: Treatment Not Indicated VTE Drug Contraindication: N/A - Med Ordered Assessment and Plan (1) Acute exacerbation of chronic obstructive airways disease: Status: Acute (2) Acute respiratory failure with hypoxia: Status: Acute (3) Abdominal pain: Status: Acute (4) Foot pain: Status: Acute Assessment and Plan: This 65-year-old male diastolic heart failure, COPD who presents to the hospital with shortness of breath # acute exacerbation of COPD--better - cough, sputum production, dyspnea - no evidence of PE, pneumonia, or CHF exacerbation on CT angiogram - Solu-Medrol, DuoNeb p.r.n. and scheduled, change to PO steroid today # acute hypoxic respiratory failure - not on oxygen at baseline - currently sating 95 on room air - will treat his COPD as above, titrate O2 as tolerated # abdominal pain - unclear etiology - no evidence of constipation, has no diarrhea, no vomiting, CT abdomen negative for any acute process - will monitor - pain management with oxycodone PRN and if persists consider surgery consult # foot pain - possibly secondary to gout - no erythema, no warmth, some edema with tenderness - no evidence of injury - x-ray and venous duplex negative - uric acid jacki - muscle relaxants and Tylenol p.r.n. # history of diastolic heart failure - no exacerbation - BNP negative - continue to monitor # diabetes - continue home glargine - low-dose sliding scale insulin - diabetic diet DVT prophylaxis: Lovenox
[2020-11-06 11:08] LABS: Glucose, Whole Blood 502 mg/dL (60-115)
[2020-11-06] MEDS: Insulin Lispro 100 UNIT/ML 3 ML VIAL 7 UNIT SUBCUT (11:47)
[2020-11-06 15:48] LABS: Glucose, Whole Blood 230 mg/dL (60-115)
[2020-11-06] MEDS: prednisoLONE Acetate 1 % Oph Susp 5 ML DRPBTL 1 DROP EYE-BOTH (15:48)
[2020-11-06] MEDS: Cyclobenzaprine HCl 5 MG TABLET PO (15:48)
[2020-11-06] MEDS: Folic Acid 1 MG TABLET PO (17:49)
[2020-11-06] MEDS: Thiamine HCL 100 MG TABLET PO (17:49)
[2020-11-06 20:00] LABS: Glucose, Whole Blood 335 mg/dL (60-115)
[2020-11-06] MEDS: Atorvastatin Calcium 10 MG TABLET PO (20:08)
[2020-11-07 04:00] VITALS: BP 104/86; PULSE 78; RESP 18; TEMP 36.6; O2SAT 94
[2020-11-07] MEDS: Enoxaparin Sodium 40 MG/0.4 ML SYRINGE SUBCUT (05:41)
[2020-11-07] MEDS: Omeprazole 20 MG CAPSULE.DR PO (05:41)
[2020-11-07 07:14] LABS: Glucose, Whole Blood 167 mg/dL (60-115)
[2020-11-07 07:26] VITALS: BP 138/69; PULSE 77; RESP 20; TEMP 35.7; O2SAT 96
[2020-11-07] MEDS: Insulin Lispro 100 UNIT/ML 3 ML VIAL SUBCUT ×2 (07:46→12:07)
[2020-11-07 07:47] VITALS: BP 138/69; PULSE 77
[2020-11-07] MEDS: lisinopriL 10 MG TABLET PO (07:47)
[2020-11-07] MEDS: busPIRone HCl 5 MG TABLET PO (07:47)
[2020-11-07] MEDS: guaiFEN/Codeine SF 200/20/10ML 10 ML LIQUID PO (07:47)
[2020-11-07] MEDS: Multivitamin TABLET 1 TAB PO (07:47)
[2020-11-07] MEDS: Gabapentin 300 MG CAPSULE 600 MG PO (07:47)
[2020-11-07] MEDS: oxyCODONE HCl Immed Release 5 MG TABLET PO (07:54)
[2020-11-07 08:00] VITALS: PULSE 86; O2SAT 95
[2020-11-07] MEDS: Albuterol/Iprat 2.5/0.5MG 3 ML AMPUL.NEB INHALE (08:00)
[2020-11-07] MEDS: prednisoLONE Acetate 1 % Oph Susp 5 ML DRPBTL 1 DROP EYE-BOTH (08:21)
[2020-11-07] MEDS: 0.9 % Sodium Chloride Flush 3 ML SYRINGE IVFLUSH (08:21)
[2020-11-07] MEDS: predniSONE 20 MG TABLET 40 MG PO (09:09)
[2020-11-07 11:06] VITALS: BP 137/63; PULSE 76; RESP 20; TEMP 36; O2SAT 97
[2020-11-07 11:12] LABS: Glucose, Whole Blood 206 mg/dL (60-115)
--- NOTE | 2020-11-07 11:24 | MHC.CM.PN ---
Patient has been medically cleared for dc to home today, no services. Patient will dc to home today at 1:30 PM, via [facility] Shuttle bus. Last IMM addressed yesterday; patient is aware of and pleased with this dc plan.
--- NOTE | 2020-11-07 16:10 | PM.DS ---
DS: Providers Provider Date of Service: 11/07/20 Date of admission: 11/05/20 23:34 Primary care physician: Jaylen Cummings MD DS: Diagnosis Discharge Diagnosis (1) Acute exacerbation of chronic obstructive airways disease: Status: Acute (2) Acute respiratory failure with hypoxia: Status: Acute (3) Abdominal pain: Status: Acute (4) Foot pain: Status: Acute DS: Medications Discharge Medications Home Medications: Home Medications Medication Instructions Recorded Confirmed aspirin 81 mg tablet,delayed 81 mg PO BEDTIME 06/03/20 11/05/20 release buspirone 5 mg tablet 5 mg PO BID 06/03/20 11/05/20 celecoxib 50 mg capsule 50 mg PO BID cap 06/03/20 11/05/20 fluticasone propionate 50 1 - 2 spray INTRANASAL DAILY PRN 06/03/20 11/05/20 mcg/actuation nasal spray,suspension folic acid 1 mg tablet 1 mg PO DAILY@1800 06/03/20 11/05/20 insulin glargine 100 unit/mL 45 unit SUBCUT BEDTIME 06/03/20 11/05/20 subcutaneous solution lisinopril 10 mg tablet 10 mg PO QAM 06/03/20 11/05/20 multivitamin 1 tab PO QAM 06/03/20 11/05/20 omega-3 fatty acids-fish oil 340 1 cap PO QAM 06/03/20 11/05/20 mg-1,000 mg capsule omeprazole 20 mg capsule,delayed 20 mg PO QAM 06/03/20 11/05/20 release simvastatin 20 mg tablet 20 mg PO BEDTIME 06/03/20 11/05/20 thiamine HCl (vitamin B1) 100 mg 100 mg PO DAILY@1800 06/03/20 11/05/20 tablet albuterol sulfate 1 amp INHALATION QID 09/26/20 11/05/20 albuterol sulfate 2 puff PO Q4-6H PRN 09/26/20 11/05/20 gabapentin 2 cap PO TID 09/26/20 11/05/20 loteprednol etabonate 1 drp OPHTHALMIC (EYE) TID 09/26/20 11/05/20 quetiapine 3 tab PO BEDTIME 09/27/20 11/05/20 Jardiance 1 tab PO QAM 11/05/20 11/05/20 codeine-guaifenesin [Virtussin AC] 10 ml PO Q4-6H PRN 11/05/20 11/05/20 insulin aspart U-100 [Novolog See Protocol SUBCUT USEASDIRECTD 11/05/20 11/05/20 U-100 Insulin aspart] prednisone 5 mg PO DAILY 11/05/20 11/05/20 Previous Rx's Medication Instructions Recorded oxycodone 5 mg PO BID PRN #4 cap 10/01/20 prednisone 20 mg PO DAILY #4 tab 11/07/20 DS: Summary Hospital Course Hospital Course: history of presenting illness Chief Complaint: SOB this is a 65-year-old male with past medical history of COPD, diabetes, diastolic dysfunction, obesity, alcohol abuse who was discharged from the hospital and may secondary to COPD exacerbation, was discharged to rehab for COPD returns stating that he has worsened shortness of breath, cough, sputum production for the past 3 days. Patient is also complaining of generalized abdominal pain with nausea and no vomiting. No diarrhea or constipation. No urinary symptoms, no fever or chills, no headache, no change in vision, no chest pain, patient is also complaining of left foot cramping and swelling That started while in the ED. Patient denies any erythema or pain In his foot. On arrival to the ED patient vitals significant for temp of 98.8?, heart rate of 107, respiratory rate of 22, satting 95% on room air, While in the ED pt O2 did drop to the mid 80s. lab significant for WBC count 10.2, lactic acid of 2.3 that normalized after fluids, BMP this 100, COVID-19 negative, imaging including chest CT angiogram showed no PE, no pulmonary congestion, and no pneumonia Abdominal CT showed colonic diverticulosis without CT evidence of active diverticulitis venous duplex of the left foot showed subcutaneous edema with no DVT demonstrated foot xray shows no displaced fracture, mild osteoarthritis hospital course 65-year-old male diastolic heart failure, COPD who presents to the hospital with shortness of breath and diagnosed to have mild acute COPD exacerbation with mild hypoxic respiratory failure imaging study showed no evidence of PE, no pneumonia or CHF exacerbation, patient treated with IV Solu Medrol, DuoNeb treatment, patient responded well to above treatment currently oxygenation is stable on room air patient is talking in full sentences no use of accessory muscles is walking in room with no difficulty therefore he is being discharged home on 4 more days of by mouth steroids recommended to continue updraft treatment patient is instructed to follow-up with pulmonology as outpatient, patient has no evidence of CHF exacerbation. In regard to abdominal pain no acute etiology was found CT abdomen showed no acute process, patient is tolerating diet with no nausea vomiting diarrhea and no complain of pain prior to discharge, patient also complained of foot pain, extra ray and venous duplex scan came back negative, no evidence of acute gout uric acid 5.3 recommend to use Tylenol and follow-up with PCP with recurrence In regard to diabetes patient has been recommended to continue home insulin and diabetic diet Time Spent with Patient Time attestation: Total time spent providing and/or coordinating discharge services: Discharge coordination time: Greater than 30 minutes Quality: Stroke Does the patient have a stroke diagnosis?: No Physical Exam Vital Signs: Vital Signs: Last Vital Signs Temp 96.8 F 11/07/20 11:06 Pulse 76 11/07/20 11:06 Resp 20 11/07/20 11:06 BP 137/63 11/07/20 11:06 Pulse Ox 97 11/07/20 11:06 Body Mass Index 34.9 General: sitting comfortably in no acute distress talking in full sentences Neck no JVD Resp: lungs clear to auscultation bilaterally with no wheeze no rhonchi, diminished breath sounds no use of accessory muscles no respiratory distress CVS: S1,S2,RRR GI: obese soft nontender bowel sounds are audible Neuro: motor grossly intact Psych: appropriate affect DS: Data Data Completed and Pending Labs on day of discharge: Laboratory Results - last 24 hr 11/06/20 11/07/20 11/07/20 19:55 07:09 11:08 POC Glucose 335 H 167 H 206 H Preliminary micro results at discharge 11/05/20 17:49 Blood Culture - Preliminary Blood - Venous No growth after 24 hours. 11/05/20 17:49 Blood Culture - Preliminary Blood - Venous No growth after 24 hours. Discharge Plan Discharge Patient Disposition: Home, Self-Care Discharge Diagnosis: acute COPD exacerbation acute hypoxic respiratory failure Referrals: Physician,Unknown [Physician] - 1 Week Discharge Medications: New prednisone 20 mg tablet 20 mg PO DAILY Qty: 4 RF: 0 Continued codeine-guaifenesin [Virtussin AC] 10-100 mg/5 mL liquid 10 ml PO Q4-6H PRN (Reason: cough) RF: 0 Jardiance 10 mg tablet 1 tab PO QAM RF: 0 insulin aspart U-100 [Novolog U-100 Insulin aspart] 100 unit/mL Solution See Protocol sliding scale dose SUBCUT USEASDIRECTD RF: 0 loteprednol etabonate 0.5 % drops,suspension 1 drp ophthalmic (eye) TID RF: 0 albuterol sulfate 90 mcg/actuation HFA aerosol inhaler 2 puff PO Q4-6H PRN (Reason: dyspnea) RF: 0 albuterol sulfate 2.5 mg /3 mL (0.083 %) solution for nebulization 1 amp inhalation QID RF: 0 gabapentin 300 mg capsule 2 cap PO TID RF: 0 quetiapine 50 mg tablet 3 tab PO BEDTIME RF: 0 oxycodone 5 mg capsule 5 mg PO BID PRN (Reason: pain) Qty: 4 RF: 0 celecoxib 50 mg capsule 50 mg PO BID RF: 0 omega-3 fatty acids-fish oil 340-1,000 mg capsule 1 cap PO QAM RF: 0 folic acid 1 mg tablet 1 mg PO DAILY@1800 RF: 0 omeprazole 20 mg capsule,delayed release(DR/EC) 20 mg PO QAM RF: 0 lisinopril 10 mg tablet 10 mg PO QAM RF: 0 simvastatin 20 mg tablet 20 mg PO BEDTIME RF: 0 aspirin 81 mg tablet,delayed release (DR/EC) 81 mg PO BEDTIME RF: 0 thiamine HCl (vitamin B1) 100 mg tablet 100 mg PO DAILY@1800 RF: 0 multivitamin Tablet 1 tab PO QAM RF: 0 insulin glargine 100 unit/mL solution 45 unit subcut BEDTIME RF: 0 buspirone 5 mg tablet 5 mg PO BID RF: 0 fluticasone propionate 50 mcg/actuation spray,suspension 1 - 2 spray intranasal DAILY PRN (Reason: Allergy Symptoms) RF: 0 Held prednisone 5 mg Tablet 5 mg PO DAILY RF: 0 Hold Instructions: Resume on 11/12/20. Discharge Orders: Discharge Order (Routine); Ordered 11/07/20 Ordered By: Mary Ann Gamez Diet: diabetic diet and low fat, low cholesterol Activity on Discharge: As tolerated Stand Alone Forms: Patient Portal Discharge page Care Plan Goals: mild COPD exacerbation, continue home inhalers as before use prednisone 20 mg daily for 4 more days then resume prednisone 5 mg daily as before Health Concerns: diabetes mellitus, diastolic heart failure, COPD, follow low-salt, diabetic diet, gradually increase activity as tolerated Plan of Treatment: outpatient follow-up with primary care physician and pulmonology as previously planned Assessment: as above Discharge Date/Time: 11/07/20 12:59
== END 2020-11-07 12:59 | disposition home or self-care (01) | DRG 191 ==
LOC: HO.ED 22:11 → HO.EDOVER 23:51 → HO.IMC 11-06 06:16
PROVIDERS: Internal Medicine; Physician Assistant; Admitting Provider Internal Medicine; Emergency Provider Emergency Medicine; PCP Internal Medicine Geriatric Medicine; Visit Provider Hospitalist
DX: J44.1 Chronic obstructive pulmonary disease with (acute) exacerbation (principal); I50.32 Chronic diastolic (congestive) heart failure; E78.5 Hyperlipidemia, unspecified; E11.9 Type 2 diabetes mellitus without complications; M79.672 Pain in left foot; R10.9 Unspecified abdominal pain; I11.0 Hypertensive heart disease with heart failure; Z20.822 Contact with and (suspected) exposure to COVID-19; Z87.891 Personal history of nicotine dependence; Z79.1 Long term (current) use of non-steroidal anti-inflammatories (NSAID); Z79.4 Long term (current) use of insulin; Z79.52 Long term (current) use of systemic steroids; Z79.899 Other long term (current) drug therapy
CPT/HCPCS: 36415; 71045; 71275; 73620; 74177; 80048; 80053; 80076; 82947; 83605; 83690; 83880; 84484; 84550; 85025; 85379; 85610; 85730; 87040; 87635; 93005; 93971; 94640; 99285; J0456; J0696; J1650; J2060; J2920; J2930; J3475; Q9967

== ENCOUNTER 2020-11-19 20:27 | Emergency (ER) | payer OTHER, SELFPAY ==
--- NOTE | ~2020-11-19 | CT_ITS ---
EXAMINATION: CT ABDOMEN AND PELVIS WITHOUT CONTRAST CLINICAL INFORMATION: Upper abdominal pain bilaterally COMPARISON: 11/05/2020 TECHNIQUE: Multidetector volumetric imaging was performed from the superior aspect of the liver through the pubic symphysis. Sagittal and coronal reformatted images were obtained on the technologist's workstation. This CT examination was performed using dose optimization techniques as appropriate, variously including the following: *Automated exposure control *Adjustment of mA and/or kV according to patient size (this includes techniques or standardized protocols for targeted exams where dose is matched to indication/reason for exam; i.e. extremities or head) *Use of iterative reconstruction technique DLP: 800 mGy-cm FINDINGS: LUNG BASES: The visualized lung bases are unremarkable. LIVER, GALLBLADDER, AND BILIARY TREE: The liver is normal in size, shape, and attenuation. No focal hepatic lesion or biliary ductal dilatation is present. The gallbladder is unremarkable with no evidence of radiopaque gallstones, gallbladder wall thickening, or obvious pericholecystic inflammatory changes. PANCREAS: Unremarkable. SPLEEN: Unremarkable. ADRENAL GLANDS: Unremarkable. KIDNEYS AND URETERS: The kidneys are normal in size, shape, and attenuation. No hydronephrosis, hydroureter, or calculi seen. Redemonstrated nonspecific bilateral perinephric stranding. BLADDER: Unremarkable. GASTROINTESTINAL TRACT: Colonic diverticulosis is noted. The small and large bowel are otherwise unremarkable without evidence of obstruction or pericolonic inflammatory change. The appendix is unremarkable. No free fluid or free air is seen. ABDOMINAL WALL: Bilateral fat-containing inguinal hernias are noted. LYMPH NODES: Normal. VASCULAR: There are moderate atherosclerotic calcifications. PELVIC VISCERA: Unremarkable. OSSEOUS STRUCTURES: There are mild degenerative changes in the lumbar spine. CT/CT abdomen pelvis wo con IMPRESSION: No acute findings identified in the abdomen/pelvis. Colonic diverticulosis.
--- NOTE | ~2020-11-19 | XR_ITS ---
EXAMINATION: XR CHEST CLINICAL INFORMATION: Chronic shortness of breath COMPARISON: Chest radiograph 11/05/2020 TECHNIQUE: Frontal view of the chest was obtained. FINDINGS: The heart and pulmonary vessels appear normal. No evidence of CHF. No pleural effusions. No lung masses. Some minimal left basilar atelectasis remains. A reverse right shoulder prosthesis is present with degenerative changes in the left shoulder. XR/XR chest 1V IMPRESSION: No acute intrathoracic disease
[2020-11-19 20:32] VITALS: BP 134/61; PULSE 92; RESP 16; TEMP 37; O2SAT 95; BMI 34.9
--- NOTE | 2020-11-19 21:32 | ECG_ITS ---
Test Reason : WEAK Blood Pressure : / mmHG Vent. Rate : 096 BPM Atrial Rate : 096 BPM P-R Int : 152 ms QRS Dur : 074 ms QT Int : 338 ms P-R-T Axes : 069 023 090 degrees QTc Int : 427 ms Sinus rhythm with occasional Premature ventricular complexes Otherwise normal ECG When compared with ECG of 05-NOV-2020 17:26, Premature ventricular complexes are now Present Referred By: Asia Zhong Electronically Signed By:Gabino Carter
--- NOTE | 2020-11-19 21:34 | ED_ITS ---
HPI - Abdominal Pain General Chief Complaint: Abdominal Pain Stated Complaint: ABDOMINAL AND BACK PAIN Time Seen by Provider: 11/19/20 21:26 Source: patient Mode of arrival: EMS Limitations: no limitations History of Present Illness HPI narrative: Patient comes emergency room complaining of epigastric pain radiating towards the back, started approximately 1 week ago. Patient states that it is not related to meals. Patient also complaining of chronic shortness of breath, states regarding his lungs there is nothing new. Patient denies chest pain. Related Data Home Medications Medication Instructions Recorded Confirmed aspirin 81 mg tablet,delayed 81 mg PO BEDTIME 06/03/20 11/05/20 release buspirone 5 mg tablet 5 mg PO BID 06/03/20 11/05/20 celecoxib 50 mg capsule 50 mg PO BID cap 06/03/20 11/05/20 fluticasone propionate 50 1 - 2 spray INTRANASAL DAILY PRN 06/03/20 11/05/20 mcg/actuation nasal spray,suspension folic acid 1 mg tablet 1 mg PO DAILY@1800 06/03/20 11/05/20 insulin glargine 100 unit/mL 45 unit SUBCUT BEDTIME 06/03/20 11/05/20 subcutaneous solution lisinopril 10 mg tablet 10 mg PO QAM 06/03/20 11/05/20 multivitamin 1 tab PO QAM 06/03/20 11/05/20 omega-3 fatty acids-fish oil 340 1 cap PO QAM 06/03/20 11/05/20 mg-1,000 mg capsule omeprazole 20 mg capsule,delayed 20 mg PO QAM 06/03/20 11/05/20 release simvastatin 20 mg tablet 20 mg PO BEDTIME 06/03/20 11/05/20 thiamine HCl (vitamin B1) 100 mg 100 mg PO DAILY@1800 06/03/20 11/05/20 tablet albuterol sulfate 1 amp INHALATION QID 09/26/20 11/05/20 albuterol sulfate 2 puff PO Q4-6H PRN 09/26/20 11/05/20 gabapentin 2 cap PO TID 09/26/20 11/05/20 loteprednol etabonate 1 drp OPHTHALMIC (EYE) TID 09/26/20 11/05/20 quetiapine 3 tab PO BEDTIME 09/27/20 11/05/20 Jardiance 1 tab PO QAM 11/05/20 11/05/20 codeine-guaifenesin [Virtussin AC] 10 ml PO Q4-6H PRN 11/05/20 11/05/20 insulin aspart U-100 [Novolog See Protocol SUBCUT USEASDIRECTD 11/05/20 11/05/20 U-100 Insulin aspart] prednisone 5 mg PO DAILY 11/05/20 11/05/20 Previous Rx's Medication Instructions Recorded oxycodone 5 mg PO BID PRN #4 cap 10/01/20 prednisone 20 mg PO DAILY #4 tab 11/07/20 Allergies Allergy/AdvReac Type Severity Reaction Status Date / Time ENVIRONMENTAL Allergy Mild SNEEZING, Uncoded 09/26/20 17:14 WATERY EYES Review of Systems Review of Systems Constitutional : No Weight loss, No Fever, No Chills, No Night Sweats, No Fatigue, No Malaise ENT/Mouth : No Hearing loss, No Ear Pain, No Nasal Congestion, No Sinus Pain, No Hoarseness, No sore throat, No Rhinorrhea, No Swallowing Difficulty Eyes: No Eye Pain, No Swelling, No Redness, No Foreign Body, No Discharge, No Vision Changes Cardiovascular : No Chest Pain, No Orthopnea, No Edema, No Palpitations Respiratory : Chronic Cough, No Sputum, chronic Wheezing, No Smoke Exposure, No Dyspnea Gastrointestinal : No Nausea, No Vomiting, No Diarrhea, No Constipation, complaining of diffuse abdominal pain for 1 week, worse in the epigastric area, No Hematochezia, No Melena Genitourinary : no irregular bleeding, No Dysuria, No Urinary Frequency, No Hematuria, No Urinary Incontinence, No Urgency, No Flank Pain, No Urinary Flow Changes, No Hesitancy Musculoskeletal : No joint pain, No Myalgias, No Joint Swelling Skin : No Skin Lesions, No rash Neuro : No Weakness, No Numbness, No Paresthesias, No Loss of Consciousness, No Dizziness, No Headache Psych : No Anxiety/Panic, No Depression, No SI/HI/AH/VH, No Social Issues, Heme/Lymph: No Bruising, No Bleeding,No Lymphadenopathy Endocrine : No Polyuria, No Polydipsia, No Temperature Intolerance Physical Exam Vital Signs: Vital Signs: Last Vital Signs Temp 98.5 F 11/20/20 02:36 Pulse 88 07/14/21 02:36 Resp 20 11/20/20 02:36 BP 141/72 H 11/20/20 02:36 Pulse Ox 95 11/20/20 02:36 Body Mass Index 34.9 Appearance: Alert. Oriented X3. Screaming, demanding IV insertion for pain medication Eyes: Pupils equal, round and reactive to light. ENT: Pharynx normal. Neck: Normal inspection. Neck supple. No lymph nodes noted. No crepitus CVS: Normal heart rate and rhythm. Pulses normal. Normal S1 and S2 Respiratory: No respiratory distress. Breath sounds normal. No Wheezing. No rales Abdomen: Soft, distended, states the abdomen is diffusely tender, worse in the epigastric area. No rigidity. Skin: Skin warm and dry. Normal skin color. Normal skin turgor. Extremities: No lower extremity edema. No lower extremity edema. No Lacerations. No Rash Neuro: Oriented X 3. No motor deficit. No sensory deficit. Moving all extermities. No slurred speech. Course Course Course Narrative: Patient refused to have an IV inserted or labs drawn until he received pain medication. Patient received 1 dose of IM morphine on arrival Patient's troponin is 19.7, patient's troponin is at baseline. Patient usually has a troponin up to 28. Patient denies any chest pain Patient has chronic wheezing. I offered breathing treatment to the patient, patient declined. I discussed the labs and imaging with the patient, no acute findings. There seems to be a large amount of stool in the colon, I offered to the patient medication for constipation, patient declined. I also discussed with the barbi owusu standing to his pharmacy medication for constipation, patient declined. I was informed by the patient's nurse and charge nurse, that on discharge, patient became agitated and belligerent because we cannot provide transportation home for him and he does not want to wait in the waiting room. MDM - Abdominal Pain Lab Data Result diagrams: 11/19/20 23:03 11/19/20 22:19 Labs: Lab Results 11/19/20 11/19/20 11/19/20 Range/Units 22:19 22:19 23:02 WBC (4.8-10.8) X10*3/uL RBC (4.60-5.80) X10*6/uL Hgb (14.0-18.0) g/dl Hct (42-52) % MCV (80-98) fL MCH (27.0-33.0) pg MCHC (31.0-36.0) g/dl RDW (11.0-16.0) % Plt Count (160-400) X10*3/uL MPV (9.4-12.4) fL Immature Gran % (Auto) (0.0-0.4) % Neut % (Auto) (45-73) % Lymph % (Auto) (20-40) % Chaves % (Auto) (2-11) % Eos % (Auto) (0-4) % Baso % (Auto) (0-2) % Lymph # (Auto) (1.2-4.9) X10*3/uL Chaves # (Auto) (0.1-1.2) X10*3/uL Eos # (Auto) (0.0-0.4) X10*3/uL Baso # (Auto) (0.0-0.2) X10*3/uL Abs Immat Gran (auto) (0.00-0.03) X10*3/uL Absolute Neuts (auto) (2.0-8.3) X10*3/uL Absolute Nucleated RBC (0.0-0.012) X10*3/uL Nucleated RBC % (auto) (0.0-0.2) /100WBC PT (9.9-13.0) SEC INR (0.9-1.1) Sodium 134 L (135-145) mmol/L Potassium 4.4 (3.3-5.1) mmol/L Chloride 97 (96-108) mmol/L Carbon Dioxide 23 (22-29) mmol/L Anion Gap 18 (12-20) BUN 17 H (9-16) mg/dL Creatinine 1.05 (0.5-1.4) mg/dL Estim Creat Clear Calc 82.1 Estimated GFR > 60 Random Glucose 112 D (60-115) mg/dL Lactic Acid 1.5 (0.5-2.0) mmol/L Calcium 9.3 D (8.4-10.2) mg/dL Total Bilirubin 0.4 (0.0-1.0) mg/dL Direct Bilirubin < 0.2 (0.0-0.5) mg/dL AST 20 (5-37) U/L ALT 16 (0-40) U/L Alkaline Phosphatase 69 (39-117) U/L Troponin I High Sens (<3.5-35.0) ng/L B-Natriuretic Peptide (<100) pg/mL Total Protein 6.8 (6.5-8.0) g/dL Albumin 4.2 (3.5-5.0) g/dL Lipase 48 (8-78) U/L Urine Opiates Screen (Not Detect) Ur Barbiturates Screen (Not Detect) Ur Phencyclidine Scrn (Not Detect) Ur Amphetamines Screen (Not Detect) U Benzodiazepines Scrn (Not Detect) Urine Cocaine Screen (Not Detect) U Marijuana (THC) Screen (Not Detect) Ethyl Alcohol mg/dL Acetone, Qual Negative (Negative) 11/19/20 11/19/20 11/20/20 Range/Units 23:03 23:03 00:06 WBC 10.2 (4.8-10.8) X10*3/uL RBC 4.69 (4.60-5.80) X10*6/uL Hgb 14.7 (14.0-18.0) g/dl Hct 43.1 (42-52) % MCV 91.9 (80-98) fL MCH 31.3 (27.0-33.0) pg MCHC 34.1 (31.0-36.0) g/dl RDW 14.4 (11.0-16.0) % Plt Count 211 (160-400) X10*3/uL MPV 8.8 L (9.4-12.4) fL Immature Gran % (Auto) 0.6 H (0.0-0.4) % Neut % (Auto) 78.1 H (45-73) % Lymph % (Auto) 14.6 L (20-40) % Chaves % (Auto) 5.6 (2-11) % Eos % (Auto) 0.6 (0-4) % Baso % (Auto) 0.5 (0-2) % Lymph # (Auto) 1.5 (1.2-4.9) X10*3/uL Chaves # (Auto) 0.6 (0.1-1.2) X10*3/uL Eos # (Auto) 0.1 (0.0-0.4) X10*3/uL Baso # (Auto) 0.1 (0.0-0.2) X10*3/uL Abs Immat Gran (auto) 0.06 H (0.00-0.03) X10*3/uL Absolute Neuts (auto) 7.9 (2.0-8.3) X10*3/uL Absolute Nucleated RBC 0.000 (0.0-0.012) X10*3/uL Nucleated RBC % (auto) 0.0 (0.0-0.2) /100WBC PT 11.0 (9.9-13.0) SEC INR 1.0 (0.9-1.1) Sodium (135-145) mmol/L Potassium (3.3-5.1) mmol/L Chloride (96-108) mmol/L Carbon Dioxide (22-29) mmol/L Anion Gap (12-20) BUN (9-16) mg/dL Creatinine (0.5-1.4) mg/dL Estim Creat Clear Calc Estimated GFR Random Glucose (60-115) mg/dL Lactic Acid (0.5-2.0) mmol/L Calcium (8.4-10.2) mg/dL Total Bilirubin (0.0-1.0) mg/dL Direct Bilirubin (0.0-0.5) mg/dL AST (5-37) U/L ALT (0-40) U/L Alkaline Phosphatase (39-117) U/L Troponin I High Sens 19.7 (<3.5-35.0) ng/L B-Natriuretic Peptide 33 (<100) pg/mL Total Protein (6.5-8.0) g/dL Albumin (3.5-5.0) g/dL Lipase (8-78) U/L Urine Opiates Screen (Not Detect) Ur Barbiturates Screen (Not Detect) Ur Phencyclidine Scrn (Not Detect) Ur Amphetamines Screen (Not Detect) U Benzodiazepines Scrn (Not Detect) Urine Cocaine Screen (Not Detect) U Marijuana (THC) Screen (Not Detect) Ethyl Alcohol mg/dL Acetone, Qual (Negative) 11/20/20 11/20/20 Range/Units 00:06 00:35 WBC (4.8-10.8) X10*3/uL RBC (4.60-5.80) X10*6/uL Hgb (14.0-18.0) g/dl Hct (42-52) % MCV (80-98) fL MCH (27.0-33.0) pg MCHC (31.0-36.0) g/dl RDW (11.0-16.0) % Plt Count (160-400) X10*3/uL MPV (9.4-12.4) fL Immature Gran % (Auto) (0.0-0.4) % Neut % (Auto) (45-73) % Lymph % (Auto) (20-40) % Chaves % (Auto) (2-11) % Eos % (Auto) (0-4) % Baso % (Auto) (0-2) % Lymph # (Auto) (1.2-4.9) X10*3/uL Chaves # (Auto) (0.1-1.2) X10*3/uL Eos # (Auto) (0.0-0.4) X10*3/uL Baso # (Auto) (0.0-0.2) X10*3/uL Abs Immat Gran (auto) (0.00-0.03) X10*3/uL Absolute Neuts (auto) (2.0-8.3) X10*3/uL Absolute Nucleated RBC (0.0-0.012) X10*3/uL Nucleated RBC % (auto) (0.0-0.2) /100WBC PT (9.9-13.0) SEC INR (0.9-1.1) Sodium (135-145) mmol/L Potassium (3.3-5.1) mmol/L Chloride (96-108) mmol/L Carbon Dioxide (22-29) mmol/L Anion Gap (12-20) BUN (9-16) mg/dL Creatinine (0.5-1.4) mg/dL Estim Creat Clear Calc Estimated GFR Random Glucose (60-115) mg/dL Lactic Acid (0.5-2.0) mmol/L Calcium (8.4-10.2) mg/dL Total Bilirubin (0.0-1.0) mg/dL Direct Bilirubin (0.0-0.5) mg/dL AST (5-37) U/L ALT (0-40) U/L Alkaline Phosphatase (39-117) U/L Troponin I High Sens (<3.5-35.0) ng/L B-Natriuretic Peptide (<100) pg/mL Total Protein (6.5-8.0) g/dL Albumin (3.5-5.0) g/dL Lipase (8-78) U/L Urine Opiates Screen POSITIVE H (Not Detect) Ur Barbiturates Screen Not Detected (Not Detect) Ur Phencyclidine Scrn Not Detected (Not Detect) Ur Amphetamines Screen Not Detected (Not Detect) U Benzodiazepines Scrn Not Detected (Not Detect) Urine Cocaine Screen Not Detected (Not Detect) U Marijuana (THC) Screen Not Detected (Not Detect) Ethyl Alcohol < 10 mg/dL Acetone, Qual (Negative) Imaging Data Chest x-ray: Radiologist's impression: FINDINGS: The heart and pulmonary vessels appear normal. No evidence of CHF. No pleural effusions. No lung masses. Some minimal left basilar atelectasis remains. A reverse right shoulder prosthesis is present with degenerative changes in the left shoulder. XR/XR chest 1V IMPRESSION: No acute intrathoracic disease CT scan - abdomen: Radiologist's impression: FINDINGS: LUNG BASES: The visualized lung bases are unremarkable. LIVER, GALLBLADDER, AND BILIARY TREE: The liver is normal in size, shape, and attenuation. No focal hepatic lesion or biliary ductal dilatation is present. The gallbladder is unremarkable with no evidence of radiopaque gallstones, gallbladder wall thickening, or obvious pericholecystic inflammatory changes. PANCREAS: Unremarkable. SPLEEN: Unremarkable. ADRENAL GLANDS: Unremarkable. KIDNEYS AND URETERS: The kidneys are normal in size, shape, and attenuation. No hydronephrosis, hydroureter, or calculi seen. Redemonstrated nonspecific bilateral perinephric stranding. BLADDER: Unremarkable. GASTROINTESTINAL TRACT: Colonic diverticulosis is noted. The small and large bowel are otherwise unremarkable without evidence of obstruction or pericolonic inflammatory change. The appendix is unremarkable. No free fluid or free air is seen. ABDOMINAL WALL: Bilateral fat-containing inguinal hernias are noted. LYMPH NODES: Normal. VASCULAR: There are moderate atherosclerotic calcifications. PELVIC VISCERA: Unremarkable. OSSEOUS STRUCTURES: There are mild degenerative changes in the lumbar spine. CT/CT abdomen pelvis wo con IMPRESSION: No acute findings identified in the abdomen/pelvis. Colonic diverticulosis. ECG Data Attestation: I personally reviewed and interpreted this ECG as follows: (Sent rhythm, heart rate 96, no ST segment depression or elevation, no T-wave inversion, occasional PVCs, QTC 427) Discharge Plan Discharge Clinical Impression: Abdominal pain Qualifiers: Abdominal location: generalized Qualified Code(s): R10.84 - Generalized abdominal pain Patient Disposition: Home, Self-Care Instructions: Abdominal Pain (ED) Additional Instructions: Please follow-up with your primary care physician tomorrow. If you have any worsening or new symptoms, please return to the emergency room or call 911 Prescriptions: No Action codeine-guaifenesin [Virtussin AC] 10-100 mg/5 mL liquid 10 ml PO Q4-6H PRN (Reason: cough) RF: 0 Jardiance 10 mg tablet 1 tab PO QAM RF: 0 insulin aspart U-100 [Novolog U-100 Insulin aspart] 100 unit/mL Solution See Protocol sliding scale dose SUBCUT USEASDIRECTD RF: 0 prednisone 5 mg Tablet 5 mg PO DAILY RF: 0 Hold Instructions: Resume on 11/12/20. prednisone 20 mg tablet 20 mg PO DAILY Qty: 4 RF: 0 loteprednol etabonate 0.5 % drops,suspension 1 drp ophthalmic (eye) TID RF: 0 albuterol sulfate 90 mcg/actuation HFA aerosol inhaler 2 puff PO Q4-6H PRN (Reason: dyspnea) RF: 0 albuterol sulfate 2.5 mg /3 mL (0.083 %) solution for nebulization 1 amp inhalation QID RF: 0 gabapentin 300 mg capsule 2 cap PO TID RF: 0 quetiapine 50 mg tablet 3 tab PO BEDTIME RF: 0 oxycodone 5 mg capsule 5 mg PO BID PRN (Reason: pain) Qty: 4 RF: 0 celecoxib 50 mg capsule 50 mg PO BID RF: 0 omega-3 fatty acids-fish oil 340-1,000 mg capsule 1 cap PO QAM RF: 0 folic acid 1 mg tablet 1 mg PO DAILY@1800 RF: 0 omeprazole 20 mg capsule,delayed release(DR/EC) 20 mg PO QAM RF: 0 lisinopril 10 mg tablet 10 mg PO QAM RF: 0 simvastatin 20 mg tablet 20 mg PO BEDTIME RF: 0 aspirin 81 mg tablet,delayed release (DR/EC) 81 mg PO BEDTIME RF: 0 thiamine HCl (vitamin B1) 100 mg tablet 100 mg PO DAILY@1800 RF: 0 multivitamin Tablet 1 tab PO QAM RF: 0 insulin glargine 100 unit/mL solution 45 unit subcut BEDTIME RF: 0 buspirone 5 mg tablet 5 mg PO BID RF: 0 fluticasone propionate 50 mcg/actuation spray,suspension 1 - 2 spray intranasal DAILY PRN (Reason: Allergy Symptoms) RF: 0 Interventions: ED Discharge Assessment Last Done: 11/20/20 02:37 Discharge Date/Time: 11/20/20 02:38 [facility] Past Medical History Medical History LAUREN (acute kidney injury) Alcohol abuse COPD (chronic obstructive pulmonary disease) Diabetes mellitus type 1 Diastolic dysfunction Diastolic heart failure HLD (hyperlipidemia) Hypertension Nonrheumatic aortic (valve) stenosis Obesity Family History Family History Father Diabetes Mother Diabetes Social History Social History (Updated 11/06/20 @ 05:43 by Danuta Foreman MD) Household Members: None Housing: Apartment Do you presently have visiting nurse or other home services: No Alcohol intake: current Alcohol intake frequency: a few times a month Alcohol type: hard liquor Patient Tobacco Use Status: Former Tobacco user Second Hand Smoke Exposure: No Use of substances other than those prescribed or required for medical reasons: No Advance Directives: No Advance Directives Information Provided: Yes service: No Current occupational status: disabled
[2020-11-19] MEDS: Morphine Sulfate 4 MG/ML CARTRIDGE IVPUSH (22:06)
[2020-11-19 22:53] LABS: Alanine Aminotransferase 16 U/L (0-40); Albumin Level 4.2 g/dL (3.5-5.0); Alkaline Phosphatase 69 U/L (39-117); Anion Gap 18 (12-20); Aspartate Amino Transferase 20 U/L (5-37); Bilirubin Direct < 0.2 mg/dL (0.0-0.5); Bilirubin Total 0.4 mg/dL (0.0-1.0); Blood Urea Nitrogen 17 mg/dL (9-16); Calcium 9.3 mg/dL (8.4-10.2); Carbon Dioxide 23 mmol/L (22-29); Chloride 97 mmol/L (96-108); Creatinine Clr Calc Pharmacy 82.1; Estimated Glomerular Filt Rate > 60; Glucose Random 112 mg/dL (60-115); Lipase 48 U/L (8-78); Potassium 4.4 mmol/L (3.3-5.1); Sodium 134 mmol/L (135-145); Total Protein 6.8 g/dL (6.5-8.0)
[2020-11-19 22:57] LABS: Acetone, serum QL Negative (Negative)
[2020-11-19 23:10] LABS: Basophils Absolute Auto 0.1 X10*3/uL (0.0-0.2); Basophils Percent Auto 0.5 % (0-2); Eosinophils Absolute Auto 0.1 X10*3/uL (0.0-0.4); Eosinophils Percent Auto 0.6 % (0-4); Hematocrit 43.1 % (42-52); Hemoglobin 14.7 g/dl (14.0-18.0); Imm Gran Abs Auto 0.06 X10*3/uL (0.00-0.03); Imm Gran Pct Auto 0.6 % (0.0-0.4); Lymphocytes Absolute Auto 1.5 X10*3/uL (1.2-4.9); Lymphocytes Percent Auto 14.6 % (20-40); Mean Corpuscular HGB Conc 34.1 g/dl (31.0-36.0); Mean Corpuscular Hemoglobin 31.3 pg (27.0-33.0); Mean Corpuscular Volume 91.9 fL (80-98); Mean Platelet Volume 8.8 fL (9.4-12.4); Monocytes Absolute Auto 0.6 X10*3/uL (0.1-1.2); Monocytes Percent Auto 5.6 % (2-11); Neutrophils Absolute Auto 7.9 X10*3/uL (2.0-8.3); Neutrophils Percent Auto 78.1 % (45-73); Platelet Count 211 X10*3/uL (160-400); Red Blood Count 4.69 X10*6/uL (4.60-5.80); Red Cell Distribution Width 14.4 % (11.0-16.0); White Blood Count 10.2 X10*3/uL (4.8-10.8)
[2020-11-19 23:36] LABS: Lactic Acid 1.5 mmol/L (0.5-2.0)
[2020-11-19] MEDS: ondansetron HCL 4 MG/2 ML VIAL IVPUSH (23:55)
[2020-11-20 00:33] LABS: Ethanol < 10 mg/dL
[2020-11-20 00:46] LABS: B Type Natriuretic Peptide 33 pg/mL (<100); Troponin-I High Sensitivity 19.7 ng/L (<3.5-35.0)
[2020-11-20 00:56] LABS: Amphetamine Screen Urine Not Detected (Not Detect); Barbiturates, Urine Not Detected (Not Detect); Benzodiazepines Screen Urine Not Detected (Not Detect); Cannabinoid Screen Urine Not Detected (Not Detect); Cocaine Screen Urine Not Detected (Not Detect); Opiate Screen Urine POSITIVE (Not Detect); Phencyclidine Screen Urine Not Detected (Not Detect)
[2020-11-20 02:36] VITALS: BP 141/72; PULSE 88; RESP 20; TEMP 36.9; O2SAT 95
== END 2020-11-20 02:38 | disposition home or self-care (01) ==
PROVIDERS: Emergency Provider Emergency Medicine
DX: R10.84 Generalized abdominal pain (principal); R06.2 Wheezing; K59.00 Constipation, unspecified; I11.0 Hypertensive heart disease with heart failure; I50.30 Unspecified diastolic (congestive) heart failure; E10.9 Type 1 diabetes mellitus without complications; J44.9 Chronic obstructive pulmonary disease, unspecified; Z79.4 Long term (current) use of insulin; Z79.82 Long term (current) use of aspirin; Z79.899 Other long term (current) drug therapy
CPT/HCPCS: 36415; 71045; 74176; 80048; 80076; 80307; 82009; 82077; 83605; 83690; 83880; 84484; 85025; 85610; 87040; 87205; 93005; 96374; 96375; 99284; J2270; J2405

== ENCOUNTER 2020-12-29 11:16 | Inpatient (IN) | payer OTHER, SELFPAY ==
--- NOTE | 2020-12-29 | ECG_ITS ---
Test Reason : ABDOMINAL PAIN Blood Pressure : / mmHG Vent. Rate : 079 BPM Atrial Rate : 079 BPM P-R Int : 172 ms QRS Dur : 070 ms QT Int : 368 ms P-R-T Axes : 055 000 072 degrees QTc Int : 421 ms Normal sinus rhythm Normal ECG When compared with ECG of 19-NOV-2020 20:40, Premature ventricular complexes are no longer Present Referred By: Jaquan Huerta Electronically Signed By:MIKA FREIRE
--- NOTE | ~2020-12-29 | CT_ITS ---
EXAMINATION: CT ABDOMEN AND PELVIS WITH CONTRAST CLINICAL INFORMATION: Abdominal pain, history of diverticulitis, follow-up. COMPARISON: CT scan of the abdomen and pelvis dated 11/20/2020 and 03/14/2020. TECHNIQUE: Multidetector volumetric images were obtained from the superior aspect of the liver through the pubic symphysis following administration 85 mL of Omnipaque 350 intravenous contrast. Sagittal and coronal reformatted images were obtained on the technologist's workstation. Oral contrast: No This CT examination was performed using dose optimization techniques as appropriate, variously including the following: *Automated exposure control *Adjustment of mA and/or kV according to patient size (this includes techniques or standardized protocols for targeted exams where dose is matched to indication/reason for exam; i.e. extremities or head) *Use of iterative reconstruction technique DLP: 803 mGy-cm FINDINGS: LUNG BASES: Mild right basilar linear atelectasis versus scarring. No pleural or pericardial effusions. LIVER, GALLBLADDER, AND BILIARY TREE: Mild diffuse decreased hepatic attenuation without focal abnormality. The gallbladder is mild to moderately distended without focal abnormality. No significant biliary ductal dilatation. PANCREAS: Mild fatty atrophy anteriorly in the pancreatic head without significant abnormality. No pancreatic ductal dilatation or surrounding abnormality. SPLEEN: Unremarkable. ADRENAL GLANDS: Unremarkable. KIDNEYS AND URETERS: Several small, noncalcified fluid attenuation cysts are again seen bilaterally without significant change. Mild dilatation of the collecting systems bilaterally have not significantly changed. No nephrolithiasis. Mild bilateral perinephric stranding is also not significantly changed. BLADDER: Unremarkable. GASTROINTESTINAL TRACT: There is a very small hiatal hernia. The remainder the stomach is unremarkable without change. No significantly dilated loops of small bowel are seen. The appendix is unremarkable. Scattered small air-fluid levels are seen throughout the colon. Mild to moderate diverticulosis is seen in the descending and sigmoid colon. Mild anterior pericolonic infiltrative changes are seen in the proximal to mid one third of the descending colon.. No evidence for perforation or abscess formation. ABDOMINAL WALL: No significant hernia is appreciated. LYMPH NODES: No lymphadenopathy. VASCULAR: Unremarkable. PELVIC VISCERA: Mild prostatomegaly. OSSEOUS STRUCTURES: Unremarkable. CT/CT abdomen pelvis w con IMPRESSION: 1. Mild acute diverticulitis in the proximal to mid one third of the descending colon without evidence for perforation or abscess formation. Mild to moderate colonic diverticulosis, most pronounced in the descending and sigmoid colon. A few scattered small air-fluid levels within the colon could represent liquefied stool, possibly reactive to the mild diverticulitis. Correlate with stool output and quality. 2. Multiple incidental findings detailed above have not significantly changed.
--- NOTE | 2020-12-29 11:19 | ED.ABDPAIN ---
HPI - Abdominal Pain General Chief Complaint: Abdominal Pain Stated Complaint: abd pain/diarrhea Time Seen by Provider: 12/29/20 11:19 Source: patient Mode of arrival: EMS Limitations: no limitations History of Present Illness HPI narrative: 65-year-old male who was just recently discharged from a rehab facility for alcohol withdrawal presents with 3 days of diarrhea and abdominal pain. Patient has had 2-3 episodes of diarrhea a day, with abdominal pain that is diffuse in his entire abdomen. The abdominal pain is severe, and makes some hyperventilate. He feels nauseous, no vomiting no fevers. No urinary symptoms. No bloody, dark or tarry stools. History of diverticulitis. Patient states he did drink 2 drinks yesterday to help with the pain. This did not help. States he was discharged early from the rehab facility because they had an outbreak of COVID there. Patient is vaccinated, no cough, no shortness of breath. Patient is on day 7 of doxycycline for an abscess in his groin, which he reports is much better. No bad foods, no trouble, no unusual water sources, patient has been on the doxycycline. MD elicited complaint: abdominal pain Pertinent past history: diverticulitis Onset (ago): day(s) (3) Pain Consistency: constant Location: diffuse Severity: severe Quality: cramping and stabbing Migration to: no migration Relieving factors: medication (Look of magnesia) Context: sick contacts and recent antibiotic use Associated symptoms: nausea and diarrhea Related Data Home Medications Medication Instructions Recorded Confirmed albuterol sulfate 1 amp INHALATION QID 12/29/20 12/29/20 albuterol sulfate 90 mcg/actuation 2 puff INHALATION QID PRN 12/29/20 12/29/20 aerosol inhaler blood sugar diagnostic (FreeStyle 12/29/20 12/29/20 Lite Strips) empagliflozin 10 mg tablet 1 tab PO QAM 12/29/20 12/29/20 (Jardiance) folic acid 1 mg tablet 1 tab PO QPM 12/29/20 12/29/20 gabapentin 300 mg capsule 2 cap PO QID 12/29/20 12/29/20 insulin aspart U-100 100 unit/mL See Protocol SUBCUT BIDAC 12/29/20 12/29/20 subcutaneous solution (Novolog U-100 Insulin aspart) lisinopril 10 mg tablet 1 tab PO QAM 12/29/20 12/29/20 loteprednol etabonate 0.5 % eye 1 drp OPHTHALMIC (EYE) TID 12/29/20 12/29/20 drops,suspension multivitamin 1 tab PO QAM 12/29/20 12/29/20 omega-3 fatty acids-fish oil 340 1 cap PO QAM 12/29/20 12/29/20 mg-1,000 mg capsule (Fish Oil) omeprazole 20 mg capsule,delayed 1 cap PO QAM 12/29/20 12/29/20 release simvastatin 20 mg tablet 1 tab PO BEDTIME 12/29/20 12/29/20 thiamine HCl (vitamin B1) 100 mg 1 tab PO QPM 12/29/20 12/29/20 tablet Allergies Allergy/AdvReac Type Severity Reaction Status Date / Time ENVIRONMENTAL Allergy Mild SNEEZING, Uncoded 09/26/20 17:14 WATERY EYES Review of Systems Constitutional: Denies body ache(s), Denies chills, Reports fatigue, Denies fever(s), Denies headache(s), Reports malaise and Denies weakness Eyes: Denies blurry vision, Denies change in vision and Denies diplopia Denies vertigo, Denies dizziness, Denies otalgia, Denies headache(s) and Denies sore throat Cardiovascular: Denies chest pain, Denies syncope, Denies leg edema, Denies lightheadedness, Denies Loss of Consciousness, Denies palpitations and Denies dyspnea Respiratory: Denies chest congestion, Denies cough and Denies dyspnea Gastrointestinal: Reports abdominal pain, Denies melena, Denies hematochezia, Denies tenesmus, Denies coffee ground emesis, Denies constipation, Reports diarrhea, Reports nausea, Denies vomiting and Denies hematemesis Genitourinary: Reports no additional male genitourinary complaints Musculoskeletal: Reports no additional musculoskeletal complaints Comments: Healing abscess right inguinal area Denies confusion, Denies vertigo, Denies dizziness, Denies syncope, Denies headache(s) and Denies weakness Psychiatric: Reports anxiety, Denies confusion and Denies depression Endocrine: Reports fatigue and Denies palpitations Physical Exam Vital Signs: Vital Signs: Last Vital Signs Temp 97.7 F 12/29/20 16:23 Pulse 84 12/29/20 16:23 Resp 20 12/29/20 16:23 BP 108/55 L 12/29/20 16:23 Pulse Ox 93 12/29/20 16:23 Body Mass Index 34.9 Const: General: alert and awake; No confusion Nutritional Appearance: obese centrally obese Orientation/consciousness: patient oriented x3 and No confusion Limitations: no limitations HENMT: Head: Yes normal to inspection, Yes normocephalic and Yes atraumatic Ears: hearing grossly normal bilaterally and external ears normal General nose exam: Normal external nose present Face and sinus: Yes normal facial exam Mouth: Normal oral and palatal mucosa present Throat: Yes posterior oropharynx normal Eyes: Conjunctivae: conjunctivae normal Pupils: Equal, round and reactive pupils present EOM: EOMs intact bilaterally Neck: Neck: Yes full ROM, Yes no lymphadenopathy and Yes supple Resp: Effort & Inspection: normal respiratory effort and able to speak in complete sentences Auscultation: no crackles, no rales, no rhonchi and wheezes (mild) Cardio: Rate: regular rate Rhythm: regular rhythm Heart sounds: S1 normal heart sound present and S2 normal heart sound present GI: Inspection: Yes Abdominal panniculus present and Yes obesity Palpation (GI): Soft to palpation, Tenderness to palpation present (GI) in the epigastrum, in the LLQ, in the RLQ, in the LUQ and in the RUQ; Negative for with no rebound tenderness, Guarding due to palpation present (GI) in the LUQ and in the RUQ and not rigid Percussion: Yes normal to percussion and Yes Other (tender to percussion) Auscultation: normal bowel sounds Rectal Exam - Male: Yes deferred : General: Yes no CVA tenderness Back/Spine/Pelvis: Back: no CVA tenderness Skin: Other: Small abscess right inguinal area, 1 cm area of redness, no fluctuance, no pointing, no drainable abscess collection Neuro: General: patient oriented x3 and No confusion Cranial nerves: Yes Equal, round and reactive pupils present Extrem: General: Yes normal to inspection, Yes full ROM and Yes capillary refill normal Psych: Appearance: grossly normal Mental Status: mental status grossly normal Speech and movement: Normal speech and movement present Affect: Anxious affect present Attitude: cooperative Thought process: Normal thought process present Course Course Course Narrative: 65-year-old male with a past medical history of alcohol abuse, diabetes, COPD, diastolic heart failure, acute kidney injury, aortic valve stenosis, obesity, hypertension hyperlipidemia presents for 3 days of severe abdominal pain with diarrhea. Upon exam, patient is in mild distress due to pain, vitals are stable. Patient has a heart rate of 95, blood pressure 106/57, satting 96% on room air. Afebrile. Lungs mildly wheezy, patient states his legs are always wheezy. Patient is tender to percussion over entire abdomen. Tender and guarding in upper abdomen bilaterally. Platelets 475, sodium 132, blood glucose 209, lipase 19. Patient is negative for EtOH. COVID negative. Patient is spilling glucose in his urine, urine 500 glucose Ordered C diff and stool culture, patient has not been able to give a stool sample here. Morphine, Zofran, fluids. CT abdomen shows mild acute diverticulitis in the proximal to mid one third of the descending colon without evidence for perforation or abscess formation. Mild to moderate colonic diverticulosis, most pronounced in the descending and sigmoid colon. Will treat with Augmenting. Pt is on Seroquel, interacts with Cipro, prolonged QT Looked pt up on [facility], he has multiple prescriptions from multiple providers for oxycodone. Counseled alternating tylenol and ibuprofen for pain ? Reevaluation(s) Reevaluation #1: Patient does not want to go home, states that even with 8 mg of morphine his pain is still 6/10. He is nauseous, cannot tolerate p.o. fluids. Will obtain blood cultures, start IV antibiotics, admit for pain control. MDM - Abdominal Pain Differential Diagnosis Differential diagnosis: Likely diverticulitis, gastroenteritis and pancreatitis Lab Data Result diagrams: 12/29/20 12:09 12/29/20 12:09 Labs: Lab Results 12/29/20 12/29/20 12/29/20 Range/Units 11:56 12:09 12:09 WBC 8.3 (4.8-10.8) X10*3/uL RBC 4.32 L (4.60-5.80) X10*6/uL Hgb 13.5 L (14.0-18.0) g/dl Hct 38.6 L (42-52) % MCV 89.4 (80-98) fL MCH 31.3 (27.0-33.0) pg MCHC 35.0 (31.0-36.0) g/dl RDW 14.3 (11.0-16.0) % Plt Count 475 H D (160-400) X10*3/uL MPV 8.3 L (9.4-12.4) fL Immature Gran % (Auto) 0.6 H (0.0-0.4) % Neut % (Auto) 76.2 H (45-73) % Lymph % (Auto) 11.5 L (20-40) % [place] % (Auto) 7.4 (2-11) % Eos % (Auto) 3.3 (0-4) % Baso % (Auto) 1.0 (0-2) % Lymph # (Auto) 1.0 L (1.2-4.9) X10*3/uL [place] # (Auto) 0.6 (0.1-1.2) X10*3/uL Eos # (Auto) 0.3 (0.0-0.4) X10*3/uL Baso # (Auto) 0.1 (0.0-0.2) X10*3/uL Abs Immat Gran (auto) 0.05 H (0.00-0.03) X10*3/uL Absolute Neuts (auto) 6.3 (2.0-8.3) X10*3/uL Absolute Nucleated RBC 0.000 (0.0-0.012) X10*3/uL Nucleated RBC % (auto) 0.0 (0.0-0.2) /100WBC Sodium 127 L (135-145) mmol/L Potassium 3.8 (3.3-5.1) mmol/L Chloride 85 L (96-108) mmol/L Carbon Dioxide 29 (22-29) mmol/L Anion Gap 17 (12-20) BUN 8 L D (9-16) mg/dL Creatinine 1.16 (0.5-1.4) mg/dL Estim Creat Clear Calc 74.3 Estimated GFR > 60 Random Glucose 172 H D (60-115) mg/dL Calcium 8.7 D (8.4-10.2) mg/dL Magnesium 1.9 (1.6-2.6) mg/dL Total Bilirubin 0.3 (0.0-1.0) mg/dL AST 20 (5-37) U/L ALT 20 (0-40) U/L Alkaline Phosphatase 71 (39-117) U/L Total Protein 6.3 L (6.5-8.0) g/dL Albumin 4.0 (3.5-5.0) g/dL Lipase 19 (8-78) U/L Urine Color Urine Appearance Urine pH (5.0-8.0) Ur Specific Sherman (1.005-1.025) Urine Protein (NEG-TRACE) MG/DL Urine Glucose (UA) (NEG) MG/DL Urine Ketones (NEG) MG/DL Urine Blood (NEG) Urine Nitrite (NEG) Ur Leukocyte Esterase (NEG) Ethyl Alcohol mg/dL COVID-19 ([facility]IER) Negative (Negative) COVID-19 Clin Com See Note 12/29/20 12/29/20 Range/Units 12:09 14:54 WBC (4.8-10.8) X10*3/uL RBC (4.60-5.80) X10*6/uL Hgb (14.0-18.0) g/dl Hct (42-52) % MCV (80-98) fL MCH (27.0-33.0) pg MCHC (31.0-36.0) g/dl RDW (11.0-16.0) % Plt Count (160-400) X10*3/uL MPV (9.4-12.4) fL Immature Gran % (Auto) (0.0-0.4) % Neut % (Auto) (45-73) % Lymph % (Auto) (20-40) % [place] % (Auto) (2-11) % Eos % (Auto) (0-4) % Baso % (Auto) (0-2) % Lymph # (Auto) (1.2-4.9) X10*3/uL [place] # (Auto) (0.1-1.2) X10*3/uL Eos # (Auto) (0.0-0.4) X10*3/uL Baso # (Auto) (0.0-0.2) X10*3/uL Abs Immat Gran (auto) (0.00-0.03) X10*3/uL Absolute Neuts (auto) (2.0-8.3) X10*3/uL Absolute Nucleated RBC (0.0-0.012) X10*3/uL Nucleated RBC % (auto) (0.0-0.2) /100WBC Sodium (135-145) mmol/L Potassium (3.3-5.1) mmol/L Chloride (96-108) mmol/L Carbon Dioxide (22-29) mmol/L Anion Gap (12-20) BUN (9-16) mg/dL Creatinine (0.5-1.4) mg/dL Estim Creat Clear Calc Estimated GFR Random Glucose (60-115) mg/dL Calcium (8.4-10.2) mg/dL Magnesium (1.6-2.6) mg/dL Total Bilirubin (0.0-1.0) mg/dL AST (5-37) U/L ALT (0-40) U/L Alkaline Phosphatase (39-117) U/L Total Protein (6.5-8.0) g/dL Albumin (3.5-5.0) g/dL Lipase (8-78) U/L Urine Color STRAW Urine Appearance CLEAR Urine pH 7.0 (5.0-8.0) Ur Specific Sherman <= 1.005 (1.005-1.025) Urine Protein NEG (NEG-TRACE) MG/DL Urine Glucose (UA) 500 H (NEG) MG/DL Urine Ketones NEG (NEG) MG/DL Urine Blood NEG (NEG) Urine Nitrite NEG (NEG) Ur Leukocyte Esterase NEG (NEG) Ethyl Alcohol < 10 mg/dL COVID-19 ([facility]IER) (Negative) COVID-19 Clin Com Discharge Plan Discharge Clinical Impression: Diverticulitis Patient Disposition: Admitted As Inpatient [facility] Past Medical History Medical History LAUREN (acute kidney injury) Alcohol abuse COPD (chronic obstructive pulmonary disease) Diabetes mellitus type 1 Diastolic dysfunction Diastolic heart failure HLD (hyperlipidemia) Hypertension Nonrheumatic aortic (valve) stenosis Obesity Family History Family History Father Diabetes Mother Diabetes Social History Social History Household Members: None Housing: Apartment Do you presently have visiting nurse or other home services: No Alcohol intake: current Alcohol intake frequency: a few times a month Alcohol type: hard liquor Patient Tobacco Use Status: Former Tobacco user Second Hand Smoke Exposure: No Advance Directives: No Advance Directives Information Provided: No service: No Current occupational status: disabled
[2020-12-29 11:21] VITALS: BP 106/57; BP 113/47; PULSE 95; RESP 18; TEMP 36.9; O2SAT 97; BMI 34.9
[2020-12-29] MEDS: 0.9 % Sodium Chloride 1,000 ML 999 ML IV (12:11)
[2020-12-29 12:14] VITALS: RESP 20
[2020-12-29] MEDS: Morphine Sulfate 4 MG/ML CARTRIDGE IVPUSH ×2 (12:14→14:50)
[2020-12-29] MEDS: ondansetron HCL 4 MG/2 ML VIAL IVPUSH ×2 (12:14→15:52)
[2020-12-29 12:18] LABS: COVID-19 Test Negative (Negative)
[2020-12-29 12:20] LABS: MANUAL DIFF FLAG NO
[2020-12-29 12:21] LABS: Basophils Absolute Auto 0.1 X10*3/uL (0.0-0.2); Eosinophils Absolute Auto 0.3 X10*3/uL (0.0-0.4); Eosinophils Percent Auto 3.3 % (0-4); Hematocrit 38.6 % (42-52); Hemoglobin 13.5 g/dl (14.0-18.0); Imm Gran Abs Auto 0.05 X10*3/uL (0.00-0.03); Imm Gran Pct Auto 0.6 % (0.0-0.4); Lymphocytes Percent Auto 11.5 % (20-40); Mean Corpuscular Hemoglobin 31.3 pg (27.0-33.0); Mean Corpuscular Volume 89.4 fL (80-98); Mean Platelet Volume 8.3 fL (9.4-12.4); Monocytes Absolute Auto 0.6 X10*3/uL (0.1-1.2); Monocytes Percent Auto 7.4 % (2-11); Neutrophils Absolute Auto 6.3 X10*3/uL (2.0-8.3); Neutrophils Percent Auto 76.2 % (45-73); Platelet Count 475 X10*3/uL (160-400); Red Blood Count 4.32 X10*6/uL (4.60-5.80); Red Cell Distribution Width 14.3 % (11.0-16.0); White Blood Count 8.3 X10*3/uL (4.8-10.8)
[2020-12-29 12:47] LABS: Ethanol < 10 mg/dL
[2020-12-29 12:51] LABS: Alanine Aminotransferase 20 U/L (0-40); Alkaline Phosphatase 71 U/L (39-117); Anion Gap 17 (12-20); Aspartate Amino Transferase 20 U/L (5-37); Bilirubin Total 0.3 mg/dL (0.0-1.0); Blood Urea Nitrogen 8 mg/dL (9-16); Calcium 8.7 mg/dL (8.4-10.2); Carbon Dioxide 29 mmol/L (22-29); Chloride 85 mmol/L (96-108); Creatinine Clr Calc Pharmacy 74.3; Estimated Glomerular Filt Rate > 60; Glucose Random 172 mg/dL (60-115); Lipase 19 U/L (8-78); Magnesium 1.9 mg/dL (1.6-2.6); Potassium 3.8 mmol/L (3.3-5.1); Sodium 127 mmol/L (135-145); Total Protein 6.3 g/dL (6.5-8.0)
--- NOTE | 2020-12-29 13:28 | PC.NURSE ---
PT NOTED TO HAVE AN APPROXIMATE 2 SKIN TEAR ON LEFT GLUTEAL CLEFT
[2020-12-29 13:33] VITALS: BP 115/63; PULSE 81; RESP 20; TEMP 36.4; O2SAT 95
[2020-12-29] MEDS: iohexoL 350 MG/ML 100 ML INFUS..BTL IV (13:58)
[2020-12-29 15:00] LABS: Glucose Urine UA 500 MG/DL (NEG); Leukocyte Esterase Urine NEG (NEG); Nitrite Urine NEG (NEG); Specific Gravity - Urine <= 1.005 (1.005-1.025); Urine Blood NEG (NEG); Urine Ketones NEG (NEG); Urine Protein NEG (NEG-TRACE)
[2020-12-29 15:02] LABS: Appearance Urine CLEAR; Color Urine STRAW
[2020-12-29] MEDS: HYDROmorphone HCl 1 MG/ML SYRINGE IVPUSH (15:41)
[2020-12-29] MEDS: Dicyclomine HCl 10 MG CAPSULE PO (15:52)
[2020-12-29] MEDS: cefTRIAXone sodium 1 GM in 0.9 % Sodium Chloride 50 ML IV (15:56)
--- NOTE | 2020-12-29 16:18 | P.HPHOSP_ITS ---
History of Present Illness Date of Service: 12/29/20 Chief Complaint: Abdominal pain 65-year-old male with history of alcohol use/abuse, COPD, diabetes mellitus type 1 (insulin-dependent), diastolic heart failure, hyperlipidemia, hypertension, aortic valve stenosis, who was recently discharged from a rehabilitation facility for alcohol withdrawals, who presented with stomach pains, diarrhea, lack of sleep, for the past 4 days. History is from patient and from ED notes. Patient sources that for the past 4 days, he has been having abdominal pain, diarrhea, decreased oral intake and difficulty sleeping/lack of sleep. He says this is likely secondary to his alcohol withdrawals. He tried drinking 2 beers yesterday to help with the withdrawal symptoms. He also endorses drinking milk of magnesia because he states that having bowel movements may not feel better. When I asked if he is constipated, he said no. The patient is a somewhat poor historian. Otherwise, he denies sick contacts, fever, chills, chest pain, shortness of breath. In the ED, vitals were remarkable for blood pressures as low as 106/57. Otherwise vitals were unremarkable. Labs were remarkable for sodium level 127, glucose of 172. Abdominal CT revealed mild acute diverticulitis in the proximal to mid 1/3 of the descending colon without evidence for perforation or abscess formation. (please see official report for full details) In the ED, patient was treated with IV morphine, IV Dilaudid, IV ceftriaxone, IV metronidazole, and Zofran. The patient is being admitted for intractable abdominal pain likely secondary to diverticulitis, hyponatremia. Review of Systems Review of Systems: Constitutional: ?No Weight Change, No Fever, No Chills, No Night Sweats, No Fatigue, No Malaise ENT/Mouth: ?No Hearing Changes, No Ear Pain, No Nasal Congestion, No Sinus Pain, No Hoarseness, No sore throat, No Rhinorrhea, No Swallowing Difficulty Eyes: ?No Eye Pain, No Swelling, No Redness, No Discharge, No Vision Changes Cardiovascular: ?No Chest Pain, No SOB, No Orthopnea, No Claudication, No Edema, No Palpitations Respiratory: ?No Cough, No Sputum, No Wheezing, No Smoke Exposure, No Dyspnea on Exertion, No Dyspnea Gastrointestinal: ?Positive for abdominal pain, anorexia, diarrhea. No Nausea, No Vomiting, No Constipation, No Heartburn, No Dysphagia, No Hematochezia, No Melena, No Jaundice Genitourinary: ?No Dysuria, No Urinary Frequency, No Hematuria, No Flank Pain Musculoskeletal: ?No Joint Swelling, No Joint Stiffness, No Back Pain, No Neck Pain Skin: ?No Skin Lesions, No Pruritis Neuro: ?No Weakness, No Numbness, No Paresthesias, No Loss of Consciousness, No Syncope, No Dizziness, No Headache, No Coordination Changes, No Recent Falls Psych: ?No Anxiety/Panic, No Depression, No Insomnia, No Personality Changes, No Delusions, No Suicidal Ideation /Homicidal Ideation /Auditory Hallucinations /Visual Hallucinations Heme/Lymph: ?No Bruising, No Bleeding, No Transfusions History, No Lymphadenopathy Endocrine: ?No Polyuria, No Polydipsia, No Temperature Intolerance [facility] Medical History LAUREN (acute kidney injury) Alcohol abuse COPD (chronic obstructive pulmonary disease) Diabetes mellitus type 1 Diastolic dysfunction Diastolic heart failure HLD (hyperlipidemia) Hypertension Nonrheumatic aortic (valve) stenosis Obesity Family History Father Diabetes Mother Diabetes Social History Household Members: None Housing: Apartment Do you presently have visiting nurse or other home services: No Alcohol intake: current Alcohol intake frequency: a few times a month Alcohol type: hard liquor Patient Tobacco Use Status: Former Tobacco user Second Hand Smoke Exposure: No Advance Directives: No Advance Directives Information Provided: No service: No Current occupational status: disabled Meds Allergies Allergy/AdvReac Type Severity Reaction Status Date / Time ENVIRONMENTAL Allergy Mild SNEEZING, Uncoded 09/26/20 17:14 WATERY EYES Active Medications: Current Medications Generic Name Dose Route Start Last Admin Trade Name Freq PRN Reason Stop Dose Admin Hydromorphone HCl 0.5 mg 12/29/20 16:12 Hydromorphone Hcl 0.5 Mg/0.5 Ml Syringe IVPUSH Q2H PRN Pain, Severe (Pain Scale 7-10) Protocol Sodium Chloride 1,000 mls @ 100 mls/hr 12/29/20 16:15 Ns IVCONT 12/30/20 02:14 .Q10H JOURDAN Ceftriaxone Sodium 2 gm/ 50 mls @ 100 mls/hr 12/30/20 16:00 Sodium Chloride IV Q24H JOURDAN Metronidazole 500 mg in 100 mls @ 100 mls/hr 12/30/20 00:00 Flagyl IV Q8H [facility] Sodium Chloride 3 ml 12/30/20 00:00 0.9 % Sodium Chloride Flush 3 Ml Syringe IVFLUSH QSHIFT JOURDAN Home Medications Medication Instructions Recorded Confirmed Last Taken Type albuterol sulfate 1 amp INHALATION QID 12/29/20 12/29/20 Unknown History albuterol sulfate 90 mcg/actuation 2 puff INHALATION QID PRN 12/29/20 12/29/20 Unknown History aerosol inhaler blood sugar diagnostic (FreeStyle 12/29/20 12/29/20 Unknown History Lite Strips) empagliflozin 10 mg tablet 1 tab PO QAM 12/29/20 12/29/20 Unknown History (Jardiance) folic acid 1 mg tablet 1 tab PO QPM 12/29/20 12/29/20 Unknown History gabapentin 300 mg capsule 2 cap PO QID 12/29/20 12/29/20 Unknown History insulin aspart U-100 100 unit/mL See Protocol SUBCUT BIDAC 12/29/20 12/29/20 Unknown History subcutaneous solution (Novolog U-100 Insulin aspart) lisinopril 10 mg tablet 1 tab PO QAM 12/29/20 12/29/20 Unknown History loteprednol etabonate 0.5 % eye 1 drp OPHTHALMIC (EYE) TID 12/29/20 12/29/20 Unknown History drops,suspension multivitamin 1 tab PO QAM 12/29/20 12/29/20 Unknown History omega-3 fatty acids-fish oil 340 1 cap PO QAM 12/29/20 12/29/20 Unknown History mg-1,000 mg capsule (Fish Oil) omeprazole 20 mg capsule,delayed 1 cap PO QAM 12/29/20 12/29/20 Unknown History release simvastatin 20 mg tablet 1 tab PO BEDTIME 12/29/20 12/29/20 Unknown History thiamine HCl (vitamin B1) 100 mg 1 tab PO QPM 12/29/20 12/29/20 Unknown History tablet Physical Exam Vital Signs and Narrative: Vital Signs: Last Vital Signs Temp 97.6 F 12/29/20 13:33 Pulse 81 12/29/20 13:33 Resp 20 12/29/20 13:33 BP 115/63 12/29/20 13:33 Pulse Ox 95 12/29/20 13:33 Body Mass Index 34.9 GENERAL APPEARANCE: Well developed, well nourished, alert but sleepy, and cooperative., Appears to be in no acute distress. HEAD: Normocephalic. EYES: PERRL, EOMI. Vision is grossly intact. EARS: Hearing grossly intact. NOSE: No nasal discharge. THROAT: Oral cavity and pharynx normal. No inflammation, swelling, exudate, or lesions. NECK: Neck supple, non-tender without lymphadenopathy, masses or thyromegaly. CARDIAC: Normal S1 and S2. No S3, S4 or murmurs. Rhythm is regular. There is no peripheral edema, cyanosis or pallor. Extremities are warm and well perfused. LUNGS: Clear to auscultation and percussion without rales, rhonchi, wheezing or diminished breath sounds. ABDOMEN: Positive bowel sounds. Soft, nondistended, mild tenderness diffusely. No guarding or rebound. No masses. MUSKULOSKELETAL: Examination of both shoulders, elbows, wrists, ankles, knees, legs, and hips reveals normal range of motion, normal sensation without tenderness, swelling, discoloration, weakness or deformity. Peripheral pulses intact. NEUROLOGICAL: CN II-XII intact. Strength and sensation symmetric and intact throughout. SKIN: Skin normal color, texture and turgor with no lesions or eruptions. PSYCHIATRIC: The mental examination revealed the patient was oriented to person, place, and time. The patient was able to demonstrate good judgement and reason, without hallucinations, abnormal affect or abnormal behaviors during the examination. Results Labs CBC and Chem 7: 12/29/20 12:09 12/29/20 12:09 Labs: Laboratory Results - last 24 hr 12/29/20 12/29/20 12/29/20 11:56 12:09 12:09 MCV 89.4 MCH 31.3 MCHC 35.0 RDW 14.3 Plt Count 475 H D MPV 8.3 L Immature Gran % (Auto) 0.6 H Neut % (Auto) 76.2 H Lymph % (Auto) 11.5 L [place] % (Auto) 7.4 Eos % (Auto) 3.3 Baso % (Auto) 1.0 Lymph # (Auto) 1.0 L [place] # (Auto) 0.6 Eos # (Auto) 0.3 Baso # (Auto) 0.1 Abs Immat Gran (auto) 0.05 H Absolute Neuts (auto) 6.3 Absolute Nucleated RBC 0.000 Nucleated RBC % (auto) 0.0 Anion Gap 17 Estim Creat Clear Calc 74.3 Estimated GFR > 60 Random Glucose 172 H D Calcium 8.7 D Magnesium 1.9 Total Bilirubin 0.3 AST 20 ALT 20 Alkaline Phosphatase 71 Total Protein 6.3 L Albumin 4.0 Lipase 19 Urine Color Urine Appearance Urine pH Ur Specific [place] Urine Protein Urine Glucose (UA) Urine Ketones Urine Blood Urine Nitrite Ur Leukocyte Esterase Ethyl Alcohol COVID-19 ([facility]IER) Negative COVID-19 Clin Com See Note 12/29/20 12/29/20 12:09 14:54 MCV MCH MCHC RDW Plt Count MPV Immature Gran % (Auto) Neut % (Auto) Lymph % (Auto) [place] % (Auto) Eos % (Auto) Baso % (Auto) Lymph # (Auto) [place] # (Auto) Eos # (Auto) Baso # (Auto) Abs Immat Gran (auto) Absolute Neuts (auto) Absolute Nucleated RBC Nucleated RBC % (auto) Anion Gap Estim Creat Clear Calc Estimated GFR Random Glucose Calcium Magnesium Total Bilirubin AST ALT Alkaline Phosphatase Total Protein Albumin Lipase Urine Color STRAW Urine Appearance CLEAR Urine pH 7.0 Ur Specific [place] <= 1.005 Urine Protein NEG Urine Glucose (UA) 500 H Urine Ketones NEG Urine Blood NEG Urine Nitrite NEG Ur Leukocyte Esterase NEG Ethyl Alcohol < 10 COVID-19 ([facility]IER) COVID-19 Clin Com Imaging Radiologist's Impressions: Impressions Abdomen/Pelvis CT 12/29/20 11:35 IMPRESSION: 1. Mild acute diverticulitis in the proximal to mid one third of the descending colon without evidence for perforation or abscess formation. Mild to moderate colonic diverticulosis, most pronounced in the descending and sigmoid colon. A few scattered small air-fluid levels within the colon could represent liquefied stool, possibly reactive to the mild diverticulitis. Correlate with stool output and quality. 2. Multiple incidental findings detailed above have not significantly changed. Assessment and Plan (1) Diverticulitis: Status: Acute (2) Intractable pain: Status: Acute (3) Hyponatremia: Status: Acute (4) Diastolic heart failure: Status: Acute (5) HLD (hyperlipidemia): Status: Acute (6) Diabetes mellitus type 1: Status: Acute (7) Hypertension: Status: Acute Diverticulitis: -CT of the abdomen does show mild diverticulitis -continue IV ceftriaxone, IV metronidazole -pain: IV Dilaudid 0.5 mg q.2 hours as needed -regarding pain in diet; I had a very lengthy discussion with the patient regarding diet choices in the hospital. I stated that I was going to place him on a liquid diet, but the patient resisted this greatly, stating that he would not eat if he was put on a liquid diet. I explained that I do not want to feed him solid foods if we are treating abdominal pain with narcotic pain medications, since this could mask his symptoms and we may be causing more harm than help. Again, the patient greatly resisted this idea, and iris planed my ra kell at least 3 times before he finally fell asleep suddenly during my interview. -have decided to place the patient on a regular diet for now. However, I will not escalate his pain medications. DO NOT ESCALATE HIS PAIN MEDICATIONS; INSTEAD, IF HE IS HAVING PAIN WITH REGULAR DIET, EXPLAINED TO HIM THAT WE WILL NEED TO TRANSITION HIM TO A SOFTER/LIQUID DIET INSTEAD OF MASKING HIS PAIN BY FURTHER INCREASING NARCOTIC DOSES. Intractable pain: -secondary to diverticulitis. Treatment as per above. Hyponatremia: -status post 1 L IV fluid in the ED. -started patient on normal saline at 100 cc/hour x1 L total Diastolic heart failure: -continue home medications. Hyperlipidemia: -continue home medications. Hypertension: -continue home medications. Diabetes mellitus type 1: -at home, the patient takes Lantus 40-49 units at bedtime (depending on his glucose levels) -I will continue him on the following: Lantus 15 units at bedtime, with insulin sliding scale blood sugar checks. FEN: Regular diet CODE STATUS: FULL CODE DISPO: Admit to Observation Quality Stroke Does the patient have a stroke diagnosis?: No VTE Prior VTE?: No VTE Risk Level:: Medical - low VTE Device Contraindication: N/A - Device Ordered VTE Drug Contraindication: Treatment Not Indicated
[2020-12-29 16:23] VITALS: BP 108/55; PULSE 84; RESP 20; TEMP 36.5; O2SAT 93
[2020-12-29] MEDS: metroNIDAZOLE/NS 500 MG/100 ML PIGGYBACK 100 MG IV (16:38)
[2020-12-29] MEDS: 0.9 % Sodium Chloride 1,000 ML 100 ML IVCONT (16:43)
--- NOTE | 2020-12-29 18:09 | PC.NURSE ---
Per md: plan to try regular diet after multiple education attempts regarding need for full liquid diet to rest stomach, pt stated understanding, but continues to insist that regular diet is needed. Per md, plan to feed pt regular diet, but will not increase pain meds. pt aware of this plan and is in agreement.
[2020-12-29 18:14] LABS: Glucose, Whole Blood 142 mg/dL (60-115)
[2020-12-29] MEDS: Omeprazole 20 MG CAPSULE.DR PO (18:59)
[2020-12-29] MEDS: Multivitamin TABLET 1 TAB PO (18:59)
[2020-12-29 19:04] VITALS: BP 97/56; PULSE 83
[2020-12-29 19:30] VITALS: PULSE 90; O2SAT 96
[2020-12-29] MEDS: Albuterol Sulfate (0.083%) 2.5 MG/3 ML VIAL.NEB INHALE (19:30)
[2020-12-29] MEDS: Atorvastatin Calcium 10 MG TABLET PO (20:59)
[2020-12-29] MEDS: Folic Acid 1 MG TABLET PO (20:59)
[2020-12-29] MEDS: Thiamine HCL 100 MG TABLET PO (20:59)
[2020-12-29] MEDS: Gabapentin 300 MG CAPSULE 600 MG PO (20:59)
[2020-12-29 21:05] LABS: Glucose, Whole Blood 148 mg/dL (60-115)
[2020-12-30] MEDS: 0.9 % Sodium Chloride Flush 3 ML SYRINGE IVFLUSH ×3 (00:43→21:34)
[2020-12-30] MEDS: metroNIDAZOLE/NS 500 MG/100 ML PIGGYBACK 100 MG IV ×3 (00:43→23:54)
--- NOTE | 2020-12-30 02:58 | PC.NURSE ---
Pt placed on bed smith-small opened area noted on buttock. pt states this has been there a while.
[2020-12-30 04:46] VITALS: RESP 17
[2020-12-30] MEDS: HYDROmorphone HCl 0.5 MG/0.5 ML SYRINGE IVPUSH ×6 (04:46→23:55)
[2020-12-30 07:41] VITALS: BP 137/91; PULSE 87; RESP 14; O2SAT 95
--- NOTE | 2020-12-30 07:47 | PC.NURSE ---
Pt alert and oriented, vss. Pt reports abdominal pain throughout his entire abdomen, as well as feeling nauseous after eating breakfast. He states he feels like he is about to have diarrhea but he refuses to go on bedside commode at this time. He states he is agitated at this time because he has not gotten any sleep x3 days. Pt in no apparent distress, this assembly instructions writer will continue to monitor.
[2020-12-30 07:48] LABS: Anion Gap 21 (12-20); Blood Urea Nitrogen 9 mg/dL (9-16); Calcium 8.4 mg/dL (8.4-10.2); Carbon Dioxide 19 mmol/L (22-29); Chloride 104 mmol/L (96-108); Creatinine Clr Calc Pharmacy 76.3; Estimated Glomerular Filt Rate > 60; Glucose Random 134 mg/dL (60-115); Potassium 5.9 mmol/L (3.3-5.1); Sodium 138 mmol/L (135-145)
[2020-12-30 07:57] LABS: Basophils Absolute Auto 0.1 X10*3/uL (0.0-0.2); Basophils Percent Auto 1.7 % (0-2); Eosinophils Absolute Auto 0.4 X10*3/uL (0.0-0.4); Eosinophils Percent Auto 5.5 % (0-4); Hematocrit 41.7 % (42-52); Hemoglobin 14.2 g/dl (14.0-18.0); Imm Gran Abs Auto 0.12 X10*3/uL (0.00-0.03); Imm Gran Pct Auto 1.6 % (0.0-0.4); Lymphocytes Absolute Auto 0.8 X10*3/uL (1.2-4.9); Lymphocytes Percent Auto 10.9 % (20-40); MANUAL DIFF FLAG SCAN; Mean Corpuscular HGB Conc 34.1 g/dl (31.0-36.0); Mean Corpuscular Hemoglobin 31.3 pg (27.0-33.0); Mean Corpuscular Volume 91.9 fL (80-98); Mean Platelet Volume 9.3 fL (9.4-12.4); Monocytes Absolute Auto 0.6 X10*3/uL (0.1-1.2); Monocytes Percent Auto 7.5 % (2-11); NRBC Pct Auto 0.4 /100WBC (0.0-0.2); Neutrophils Absolute Auto 5.5 X10*3/uL (2.0-8.3); Neutrophils Percent Auto 72.8 % (45-73); PLT CLUMP 1; Red Blood Count 4.54 X10*6/uL (4.60-5.80); Red Cell Distribution Width 14.9 % (11.0-16.0); SCAN SMEAR FLAG 1
[2020-12-30 07:59] LABS: White Blood Count 7.5 X10*3/uL (4.8-10.8)
[2020-12-30 08:04] LABS: Glucose, Whole Blood 123 mg/dL (60-115)
--- NOTE | 2020-12-30 09:54 | HO.PM.IMPN ---
Subjective Subjective Date of Service: 12/30/20 Interval History: seen and examined this AM reports he ate eggs this AM and his pain restarted - did no heed advice from admission physician re: diet, but now willing to listen now willing to de-escalate this diet reports nausea and severe abdominal pain Review of Systems General - no fevers or chills Cardiovascular - no chest pain Respiratory - no shortness of breath or cough Abdominal- +abdominal pain, nausea/vomiting Physical Exam Vital Signs: Vital Signs: Last Vital Signs Temp 97.7 F 12/29/20 16:23 Pulse 87 12/30/20 07:41 Resp 14 12/30/20 07:41 BP 137/91 H 12/30/20 07:41 Pulse Ox 95 12/30/20 07:41 Body Mass Index 34.9 Const: Other: General - no acute distress, appears comfortable Cardiovascular - regular rate and rhythm, S1-S2 Lungs - normal respiratory effort, clear to auscultation bilaterally, no wheezing Abdomen -+TTP left side, no rebound or guarding Extremities - no edema bilaterally Neuro - awake and alert, no focal deficits Objective Data Current Medications Generic Name Dose Route Start Last Admin Trade Name Freq PRN Reason Stop Dose Admin Albuterol Sulfate 2.5 mg 12/29/20 21:00 12/30/20 08:01 Albuterol Sulfate (0.083%) 2.5 Mg/3 Ml Vial.Neb INHALE Not Given RQID JOURDAN Albuterol Sulfate 2 puff 12/29/20 17:56 Albuterol Sulfate 90 Mcg 8 Gm Inhaler INHALE Q6H PRN Wheezing Atorvastatin Calcium 10 mg 12/29/20 21:00 12/29/20 20:59 Atorvastatin Calcium 10 Mg Tablet PO 10 mg BEDTIME JOURDAN Administration Dextrose 25 gm 12/29/20 18:01 Dextrose 50 % 25 Gm/50 Ml Vial IVPUSH Q15M PRN per Hypoglycemia Standing Ord. Protocol Folic Acid 1 mg 12/29/20 21:00 12/29/20 20:59 Folic Acid 1 Mg Tablet PO 1 mg BEDTIME JOURDAN Administration Gabapentin 600 mg 12/29/20 21:00 12/29/20 20:59 Gabapentin 300 Mg Capsule PO 600 mg QID JOURDAN Administration Glucose 15 gm 12/29/20 18:01 Glucose Gel 15 Gm Gel..Gram. PO Q15M PRN per Hypoglycemia Standing Ord. Protocol Hydromorphone HCl 0.5 mg 12/29/20 16:12 12/30/20 04:46 Hydromorphone Hcl 0.5 Mg/0.5 Ml Syringe IVPUSH 0.5 mg Q2H PRN Administration Pain, Severe (Pain Scale 7-10) Protocol Ceftriaxone Sodium 2 gm/ 50 mls @ 100 mls/hr 12/30/20 16:00 Sodium Chloride IV Q24H JOURDAN Metronidazole 500 mg in 100 mls @ 100 mls/hr 12/30/20 01:00 12/30/20 02:43 Flagyl IV Infused Q8H [facility] Infusion Sodium Chloride 1,000 mls @ 100 mls/hr 12/30/20 10:00 IVCONT 12/30/20 19:59 .Q10H [facility] Insulin Glargine 15 unit 12/29/20 21:00 12/29/20 21:00 Insulin Glargine,Hum.Rec.Anlog 100 Unit/Ml 10 Ml Vial SUBCUT Not Given BEDTIME [facility] Insulin Human Lispro 0 unit 12/29/20 21:00 12/30/20 07:46 Insulin Lispro 100 Unit/Ml 3 Ml Vial SUBCUT Not Given QIDACHS [facility] Protocol Multivitamins/Vitamin C 1 tab 12/29/20 18:00 12/29/20 18:59 Multivitamin Tablet PO 1 tab DAILY [facility] Administration Omeprazole 20 mg 12/29/20 18:00 12/29/20 18:59 Omeprazole 20 Mg Capsule.Dr PO 20 mg DAILY [facility] Administration Ondansetron HCl 4 mg 12/30/20 09:49 Ondansetron Hcl 4 Mg/2 Ml Vial IVPUSH Q8H PRN Nausea and Vomiting Prednisolone Acetate 1 drop 12/29/20 21:00 12/29/20 21:01 Prednisolone Acetate 1 % Oph Susp 5 Ml Drpbtl EYE-BOTH Not Given TID JOURDAN Sodium Chloride 3 ml 12/30/20 00:00 12/30/20 00:43 0.9 % Sodium Chloride Flush 3 Ml Syringe IVFLUSH 3 ml QSHIFT JOURDAN Administration Sodium Polystyrene Sulfonate 15 gm 12/30/20 09:52 Sodium Polystyrene Sulfon/Sorb 15 Gm/60 Ml Oral.Susp PO 12/30/20 09:53 ONCE ONE Thiamine HCl 100 mg 12/29/20 21:00 08/22/21 20:59 Thiamine Hcl 100 Mg Tablet PO 100 mg BEDTIME JOURDAN Administration Labs CBC & Chem 7: 12/29/20 12:09 12/30/20 06:51 Labs: Laboratory Results - last 24 hr 12/29/20 12/29/20 12/29/20 11:56 12:09 12:09 MCV 89.4 MCH 31.3 MCHC 35.0 RDW 14.3 Plt Count 475 H D MPV 8.3 L Immature Gran % (Auto) 0.6 H Neut % (Auto) 76.2 H Lymph % (Auto) 11.5 L [place] % (Auto) 7.4 Eos % (Auto) 3.3 Baso % (Auto) 1.0 Lymph # (Auto) 1.0 L [place] # (Auto) 0.6 Eos # (Auto) 0.3 Baso # (Auto) 0.1 Abs Immat Gran (auto) 0.05 H Absolute Neuts (auto) 6.3 Absolute Nucleated RBC 0.000 Nucleated RBC % (auto) 0.0 Anion Gap 17 Estim Creat Clear Calc 74.3 Estimated GFR > 60 POC Glucose Random Glucose 172 H D Calcium 8.7 D Magnesium 1.9 Total Bilirubin 0.3 AST 20 ALT 20 Alkaline Phosphatase 71 Total Protein 6.3 L Albumin 4.0 Lipase 19 Urine Color Urine Appearance Urine pH Ur Specific [place] Urine Protein Urine Glucose (UA) Urine Ketones Urine Blood Urine Nitrite Ur Leukocyte Esterase Ethyl Alcohol COVID-19 ([facility]IER) Negative COVID-19 Clin Com See Note 12/29/20 12/29/20 12/29/20 12:09 14:54 18:09 MCV MCH MCHC RDW Plt Count MPV Immature Gran % (Auto) Neut % (Auto) Lymph % (Auto) [place] % (Auto) Eos % (Auto) Baso % (Auto) Lymph # (Auto) [place] # (Auto) Eos # (Auto) Baso # (Auto) Abs Immat Gran (auto) Absolute Neuts (auto) Absolute Nucleated RBC Nucleated RBC % (auto) Anion Gap Estim Creat Clear Calc Estimated GFR POC Glucose 142 H Random Glucose Calcium Magnesium Total Bilirubin AST ALT Alkaline Phosphatase Total Protein Albumin Lipase Urine Color STRAW Urine Appearance CLEAR Urine pH 7.0 Ur Specific [place] <= 1.005 Urine Protein NEG Urine Glucose (UA) 500 H Urine Ketones NEG Urine Blood NEG Urine Nitrite NEG Ur Leukocyte Esterase NEG Ethyl Alcohol < 10 COVID-19 ([facility]) COVID-19 Clin Com 12/29/20 12/30/20 12/30/20 20:57 06:51 07:39 MCV MCH MCHC RDW Plt Count MPV Immature Gran % (Auto) Neut % (Auto) Lymph % (Auto) [place] % (Auto) Eos % (Auto) Baso % (Auto) Lymph # (Auto) [place] # (Auto) Eos # (Auto) Baso # (Auto) Abs Immat Gran (auto) Absolute Neuts (auto) Absolute Nucleated RBC Nucleated RBC % (auto) Anion Gap 21 H Estim Creat Clear Calc 76.3 Estimated GFR > 60 POC Glucose 148 H 123 H Random Glucose 134 H Calcium 8.4 Magnesium Total Bilirubin AST ALT Alkaline Phosphatase Total Protein Albumin Lipase Urine Color Urine Appearance Urine pH Ur Specific [place] Urine Protein Urine Glucose (UA) Urine Ketones Urine Blood Urine Nitrite Ur Leukocyte Esterase Ethyl Alcohol COVID-19 ([facility]) COVID-19 Clin Com Assessment and Plan (1) Diverticulitis: Status: Acute Assessment and Plan: This is a 65 yo M with a PMH of EtOh abuse and dependence who recently was discharged from a rehab and now presents to the hospital with complaints of abodminal pain of several days duration. His CT scan is consistent with acute diverticulitis. 1. Acute Diverticulitis clinically worsening abdominal pain de-escalate diet to clear liquids, if he does not tolerate this -- may need to keep NPO continue rocephin/flagyl IV morphine for pain IV zofran for nausea 2. HyperK 1 dose of kayexlate -- recheck BMP this afternoon hold lisinopril 3. HypoNa SNa was 127 at the time of admission, now 138 will give 1L 1/2 NS 4. DM lantus + sliding scale 5. Chronic diastolic CHF continue baseline meds Full Code DVT pptx, Lovenox Quality Stroke Does the patient have a stroke diagnosis?: No VTE Prior VTE?: No VTE Risk Level:: Medical - low VTE Device Contraindication: N/A - Device Ordered VTE Drug Contraindication: Treatment Not Indicated
[2020-12-30] MEDS: ondansetron HCL 4 MG/2 ML VIAL IVPUSH ×3 (10:16→21:33)
[2020-12-30] MEDS: Sodium Polystyrene Sulfon/Sorb 15 GM/60 ML ORAL.SUSP PO (10:25)
[2020-12-30 10:36] LABS: Platelet Count 418 X10*3/uL (160-400); SLIDE REVIEW VERIFIED
[2020-12-30 12:00] VITALS: BP 102/64; PULSE 85; RESP 18; TEMP 36.2; O2SAT 96
[2020-12-30] MEDS: Gabapentin 300 MG CAPSULE 600 MG PO ×2 (12:52→21:35)
[2020-12-30] MEDS: Sodium Chloride 0.45 % 1,000 ML 100 ML IVCONT (12:53)
[2020-12-30] MEDS: Enoxaparin Sodium 40 MG/0.4 ML SYRINGE SUBCUT (12:53)
[2020-12-30 13:19] LABS: Glucose, Whole Blood 106 mg/dL (60-115)
[2020-12-30 15:37] VITALS: BP 103/51; PULSE 83; RESP 20; TEMP 36.2; O2SAT 98
[2020-12-30 16:51] LABS: Glucose, Whole Blood 121 mg/dL (60-115)
[2020-12-30 17:11] LABS: Anion Gap 18 (12-20); Blood Urea Nitrogen 9 mg/dL (9-16); Calcium 8.6 mg/dL (8.4-10.2); Carbon Dioxide 20 mmol/L (22-29); Chloride 103 mmol/L (96-108); Creatinine Clr Calc Pharmacy 80.5; Estimated Glomerular Filt Rate > 60; Glucose Random 118 mg/dL (60-115); Potassium 4.9 mmol/L (3.3-5.1); Sodium 136 mmol/L (135-145)
[2020-12-30 19:26] VITALS: BP 112/64; PULSE 97; RESP 18; TEMP 36.1; O2SAT 98
--- NOTE | 2020-12-30 19:32 | PC.NURSE ---
Patient's IV infiltrated he insisted that it was not infiltrated. I showed him that his arm was swollen, he wanted pain medication and nausea medication. I explained to the patient that the medication would not be effective if the IV did not work. He stated he was a hard start, and he stated I don't want to be stuck 5 or 6 times. I told him I would look for a vein to insert the IV, he had no veins that were visible. He state they had to use ultrasound to start the last one. I tigbeba texted administrative supervisor to see if she could start IV. She was in ICU as the second nurse and stated she would be up as soon as possible. Patient was advised of this, several different times. Labs were tiger texted to Dr. Ferreira as he was covering for Dr. Palmer.
[2020-12-30] MEDS: Insulin Glargine,Hum.rec.anlog 100 UNIT/ML 10 ML VIAL 15 UNIT SUBCUT (21:34)
[2020-12-30] MEDS: Folic Acid 1 MG TABLET PO (21:35)
[2020-12-30] MEDS: Thiamine HCL 100 MG TABLET PO (21:35)
[2020-12-30] MEDS: Atorvastatin Calcium 10 MG TABLET PO (21:35)
[2020-12-30 23:24] VITALS: BP 109/56; PULSE 110; RESP 18; TEMP 35.8; O2SAT 96
[2020-12-31] VITALS (7 sets, daily range): BP systolic 100–149; BP diastolic 59–75; PULSE 80–93; RESP 16–20; TEMP 36–36.2; O2SAT 91–98
[2020-12-31] MEDS: HYDROmorphone HCl 0.5 MG/0.5 ML SYRINGE IVPUSH ×5 (05:45→23:11)
[2020-12-31] MEDS: ondansetron HCL 4 MG/2 ML VIAL IVPUSH ×2 (05:45→13:48)
[2020-12-31 07:40] LABS: Glucose, Whole Blood 127 mg/dL (60-115)
[2020-12-31] MEDS: 0.9 % Sodium Chloride Flush 3 ML SYRINGE IVFLUSH ×3 (09:08→23:14)
[2020-12-31] MEDS: Enoxaparin Sodium 40 MG/0.4 ML SYRINGE SUBCUT (09:08)
[2020-12-31] MEDS: Multivitamin TABLET 1 TAB PO (09:09)
[2020-12-31] MEDS: Omeprazole 20 MG CAPSULE.DR PO ×2 (09:09→17:25)
[2020-12-31] MEDS: metroNIDAZOLE/NS 500 MG/100 ML PIGGYBACK 100 MG IV ×3 (09:10→23:11)
--- NOTE | 2020-12-31 10:12 | PM.IMPN ---
Progress Note: A&P (1) Diverticulitis: Status: Acute Assessment and Plan: This is a 65 yo M with a PMH of EtOh abuse and dependence who recently was discharged from a rehab and now presents to the hospital with complaints of abodminal pain of several days duration. His CT scan is consistent with acute diverticulitis. Acute Diverticulitis clinically worsening nausea continue clear liquids continue rocephin/flagyl IV morphine for pain IV zofran for nausea added a dose of reglan GI consult HyperK. resolved 1 dose of kayexlate -- recheck BMP this afternoon BP on the lower side can continue hold lisinopril for now HypoNa. resolved SNa was 127 at the time of admission, now 138 received 1L 1/2 NS DM lantus + sliding scale Chronic diastolic CHF continue baseline meds Full Code DVT pptx, Lovenox Subjective Subjective Date of Service: 12/31/20 Interval History: Follow up diverticulitis still with diffuse pain and nausea poor appetite Physical Exam Vital Signs: Vital Signs: Last Vital Signs Temp 97.2 F 12/31/20 07:34 Pulse 93 12/31/20 07:34 Resp 20 12/31/20 09:09 BP 100/60 12/31/20 07:34 Pulse Ox 92 12/31/20 07:34 Body Mass Index 34.9 Appearing in no acute distress lung sounds are clear to auscultation heart regular rate rhythm, clear S1, S2 positive bowel sounds, diffuse tenderness, obese neuro patient is alert x3, no focal deficits Objective Data Current Medications Generic Name Dose Route Start Last Admin Trade Name Freq PRN Reason Stop Dose Admin Albuterol Sulfate 2.5 mg 12/29/20 21:00 12/31/20 09:02 Albuterol Sulfate (0.083%) 2.5 Mg/3 Ml Vial.Neb INHALE Not Given RQID JOURDAN Albuterol Sulfate 2 puff 12/29/20 17:56 Albuterol Sulfate 90 Mcg 8 Gm Inhaler INHALE Q6H PRN Wheezing Atorvastatin Calcium 10 mg 12/29/20 21:00 12/30/20 21:35 Atorvastatin Calcium 10 Mg Tablet PO 10 mg BEDTIME JOURDAN Administration Dextrose 25 gm 12/29/20 18:01 Dextrose 50 % 25 Gm/50 Ml Vial IVPUSH Q15M PRN per Hypoglycemia Standing Ord. Protocol Enoxaparin Sodium 40 mg 12/30/20 10:00 12/31/20 09:08 Enoxaparin Sodium 40 Mg/0.4 Ml Syringe SUBCUT 40 mg Q24H JOURDAN Administration Folic Acid 1 mg 12/29/20 21:00 12/30/20 21:35 Folic Acid 1 Mg Tablet PO 1 mg BEDTIME JOURDAN Administration Gabapentin 600 mg 12/29/20 21:00 12/31/20 09:09 Gabapentin 300 Mg Capsule PO Not Given QID JOURDAN Glucose 15 gm 12/29/20 18:01 Glucose Gel 15 Gm Gel..Gram. PO Q15M PRN per Hypoglycemia Standing Ord. Protocol Hydromorphone HCl 0.5 mg 12/29/20 16:12 12/31/20 09:09 Hydromorphone Hcl 0.5 Mg/0.5 Ml Syringe IVPUSH 0.5 mg Q2H PRN Administration Pain, Severe (Pain Scale 7-10) Protocol Ceftriaxone Sodium 2 gm/ 50 mls @ 100 mls/hr 12/30/20 16:00 12/30/20 19:32 Sodium Chloride IV Not Given Q24H [facility] Metronidazole 500 mg in 100 mls @ 100 mls/hr 12/30/20 01:00 12/31/20 09:10 Flagyl IV 100 mls/hr Q8H [facility] Administration Insulin Glargine 15 unit 12/29/20 21:00 12/30/20 21:34 Insulin Glargine,Hum.Rec.Anlog 100 Unit/Ml 10 Ml Vial SUBCUT 15 unit BEDTIME [facility] Administration Insulin Human Lispro 0 unit 12/29/20 21:00 12/31/20 08:54 Insulin Lispro 100 Unit/Ml 3 Ml Vial SUBCUT Not Given QIDACHS [facility] Protocol Multivitamins/Vitamin C 1 tab 12/29/20 18:00 12/31/20 09:09 Multivitamin Tablet PO 1 tab DAILY [facility] Administration Omeprazole 20 mg 12/29/20 18:00 12/31/20 09:09 Omeprazole 20 Mg Capsule.Dr PO 20 mg DAILY JOURDAN Administration Ondansetron HCl 4 mg 12/30/20 09:49 12/31/20 05:45 Ondansetron Hcl 4 Mg/2 Ml Vial IVPUSH 4 mg Q8H PRN Administration Nausea and Vomiting Prednisolone Acetate 1 drop 12/29/20 21:00 12/31/20 09:09 Prednisolone Acetate 1 % Oph Susp 5 Ml Drpbtl EYE-BOTH Not Given TID JOURDAN Sodium Chloride 3 ml 12/30/20 00:00 12/31/20 09:08 0.9 % Sodium Chloride Flush 3 Ml Syringe IVFLUSH 3 ml QSHIFT JOURDAN Administration Thiamine HCl 100 mg 12/29/20 21:00 12/30/20 21:35 Thiamine Hcl 100 Mg Tablet PO 100 mg BEDTIME JOURDAN Administration Labs CBC & Chem 7: 12/30/20 06:51 12/30/20 16:40 Labs: Laboratory Results - last 24 hr 12/30/20 12/30/20 12/30/20 06:51 12:27 16:40 MCV 91.9 MCH 31.3 MCHC 34.1 RDW 14.9 Plt Count 418 H MPV 9.3 L Immature Gran % (Auto) 1.6 H Neut % (Auto) 72.8 Lymph % (Auto) 10.9 L [place] % (Auto) 7.5 Eos % (Auto) 5.5 H Baso % (Auto) 1.7 Lymph # (Auto) 0.8 L [place] # (Auto) 0.6 Eos # (Auto) 0.4 Baso # (Auto) 0.1 Abs Immat Gran (auto) 0.12 H Absolute Neuts (auto) 5.5 Absolute Nucleated RBC 0.030 H Nucleated RBC % (auto) 0.4 H Smear Tech's Comments VERIFIED Anion Gap 18 Estim Creat Clear Calc 80.5 Estimated GFR > 60 POC Glucose 106 Random Glucose 118 H Calcium 8.6 12/30/20 12/31/20 16:47 07:36 MCV MCH MCHC RDW Plt Count MPV Immature Gran % (Auto) Neut % (Auto) Lymph % (Auto) [place] % (Auto) Eos % (Auto) Baso % (Auto) Lymph # (Auto) [place] # (Auto) Eos # (Auto) Baso # (Auto) Abs Immat Gran (auto) Absolute Neuts (auto) Absolute Nucleated RBC Nucleated RBC % (auto) Smear Tech's Comments Anion Gap Estim Creat Clear Calc Estimated GFR POC Glucose 121 H 127 H Random Glucose Calcium Microbiology Microbiology Results: Microbiology 12/30/20 14:15 Stool Stool Culture - Preliminary Culture in progress. 12/29/20 15:54 Blood - Venous Blood Culture - Preliminary No growth after 24 hours. 12/29/20 15:53 Blood - Venous Blood Culture - Preliminary No growth after 24 hours. Quality Stroke Does the patient have a stroke diagnosis?: No VTE Prior VTE?: No VTE Risk Level:: Medical - low VTE Device Contraindication: N/A - Device Ordered VTE Drug Contraindication: Treatment Not Indicated
[2020-12-31] MEDS: Metoclopramide HCl 10 MG/2 ML VIAL 5 MG IVPUSH (10:25)
[2020-12-31 11:16] LABS: Glucose, Whole Blood 113 mg/dL (60-115)
[2020-12-31] MEDS: Albuterol Sulfate (0.083%) 2.5 MG/3 ML VIAL.NEB INHALE (11:51)
--- NOTE | 2020-12-31 12:36 | PC.NURSE ---
Pt with loose stools, offered to get patient bedside commode pt refused, Pt refused high risk fall precautions despite education.
--- NOTE | 2020-12-31 13:58 | MHC.CM.PN ---
CM MET WITH PT WHO REPORTS HE LIVES ALONE AND IS ACTIVE WITH [facility] ALTHOUGH THE SOC HAS NO YET BEEN INITIATED DUE TO HIS READMISSION. PT REPORTS HE HAS A CONCENTRATOR FOR OXYGEN AT NIGHT AND A NEBULIZER. IMM DELIVERED ON 12/31 CURRENT DC PLAN IS HOME WITH [facility] PT TYPICALLY TAKES THE SHUTTLE HOME
--- NOTE | 2020-12-31 14:31 | MHC.CLN ---
NUTRITION/DIET WHEN DIET ADVANCES, RECOMMEND THERAPEUTIC DIET, DIABETIC 2000 KCAL, CARDIAC.
[2020-12-31] MEDS: cefTRIAXone sodium 2 GM in 0.9 % Sodium Chloride 50 ML IV (16:15)
[2020-12-31 16:24] LABS: Glucose, Whole Blood 139 mg/dL (60-115)
--- NOTE | 2020-12-31 19:30 | CONS_ITS ---
cc: Gerardo Wilks MD~ DATE OF SERVICE: 12/31/2020 REFERRING PHYSICIAN: Mike Palmer MD REASON FOR CONSULTATION: Diverticulitis and nausea. HISTORY OF PRESENT ILLNESS: The patient is a 65-year-old man, who was admitted to the hospital with abdominal pain, diarrhea, and difficulty sleeping. He was recently hospitalized for alcohol abuse and withdrawal at [facility] and after discharge was sent home, but developed generalized abdominal pain with nausea, for which he began taking [id number] antacids including liquid antacid, subsequently he developed diarrhea and some difficulty sleeping. He denies any nausea or vomiting and has not had any fevers or chills. He was evaluated in the emergency department and lab work and CT scanning were obtained, which were reviewed. The CT scan is interpreted as showing uncomplicated mild diverticulitis, for which he has been treated with antibiotics. Laboratory studies showed a white blood cell count of 7.5 with a liver profile, which showed normal transaminases. Lipase was also normal. The patient had pancreatitis in the past from alcohol and was concerned that this may represent an attack of pancreatitis. His pancreas on the CT scan was reported to be mildly atrophic. He does have a history of prior diverticular disease and has been followed in [place] by [facility]. He was scheduled for a followup colonoscopy in 2019, but this was postponed because of another attack of diverticular disease and the COVID-19 pandemic. Previous colonoscopy in 2010 did show diverticular disease. He also has a history of erosive esophagitis and has undergone upper endoscopy confirming this. He also had a previous episode of gastritis diagnosed with upper endoscopy in 2013. He does take omeprazole at home for reflux. PAST MEDICAL HISTORY: 1. Alcohol abuse. He states he has recently been abstinent, although he told another provider that he did have 2 alcoholic drinks prior to admission. 2. COPD/YESSICA. 3. Aortic valve stenosis. 4. Hypertension. 5. Hyperlipidemia. 6. Diastolic heart failure. 7. Elevated body mass index. 8. Acute kidney injury. CURRENT MEDICATIONS: Current medication list is reviewed in the chart. ALLERGIES: ENVIRONMENTAL. FAMILY HISTORY: This is reviewed with the patient and is noncontributory. SOCIAL HISTORY: He denies tobacco use and drug use. REVIEW OF SYSTEMS: SKIN: No pruritus. HEENT: Negative. CARDIOPULMONARY: No shortness of breath or chest pain. GASTROINTESTINAL: As above. GENITOURINARY: Negative. NEUROPSYCHIATRIC: Negative. PHYSICAL EXAMINATION: GENERAL: Reveals a pleasant male, complaining of nausea. VITAL SIGNS: Stable. SKIN: Anicteric. HEENT: Shows no scleral icterus. NECK: Without lymphadenopathy or thyromegaly. LUNGS: Clear. HEART: Shows regular rate and rhythm. S1, S2. No murmur. ABDOMEN: Soft without focal masses or tenderness. Bowel sounds are present. No organomegaly is noted. EXTREMITIES: Without edema. LABORATORY DATA: Reviewed including his CAT scan. IMPRESSION: 1. Diverticulitis. 2. Nausea. At this time, he is being treated appropriately for his diverticular disease. I would continue IV antibiotics. He does have a stool culture pending. 3. His nausea may be related to worsening reflux. I would recommend increasing his omeprazole to 20 mg b.i.d. and continuing using anti-nausea medications include Zofran regularly. I did advise him that he should follow up with Dr. Wilks at [facility] for colonoscopy in 8 to 12 weeks after his acute episode of diverticulitis and if he still has persistent nausea symptoms, endoscopy could be considered at that time. Thanks for asking me to see him. I will follow him in the hospital with you. MD LITA Colon/ROYAL / [id number] MTDD
[2020-12-31] MEDS: Folic Acid 1 MG TABLET PO (20:08)
[2020-12-31] MEDS: Atorvastatin Calcium 10 MG TABLET PO (20:08)
[2020-12-31] MEDS: Thiamine HCL 100 MG TABLET PO (20:08)
[2021-01-01] VITALS (9 sets, daily range): BP systolic 103–128; BP diastolic 47–74; PULSE 67–90; RESP 16–77; TEMP 35.8–36.3; O2SAT 94–99
[2021-01-01] MEDS: HYDROmorphone HCl 0.5 MG/0.5 ML SYRINGE IVPUSH ×4 (05:05→20:51)
[2021-01-01] MEDS: Omeprazole 20 MG CAPSULE.DR PO ×2 (05:29→16:52)
[2021-01-01] MEDS: ondansetron HCL 4 MG/2 ML VIAL IVPUSH ×2 (07:49→15:06)
[2021-01-01 07:52] LABS: Glucose, Whole Blood 126 mg/dL (60-115)
[2021-01-01] MEDS: Albuterol Sulfate (0.083%) 2.5 MG/3 ML VIAL.NEB INHALE ×3 (07:55→16:11)
[2021-01-01] MEDS: Multivitamin TABLET 1 TAB PO (09:02)
[2021-01-01] MEDS: metroNIDAZOLE/NS 500 MG/100 ML PIGGYBACK 100 MG IV ×2 (09:02→17:32)
[2021-01-01] MEDS: Enoxaparin Sodium 40 MG/0.4 ML SYRINGE SUBCUT (09:03)
[2021-01-01] MEDS: prednisoLONE Acetate 1 % Oph Susp 5 ML DRPBTL 1 DROP EYE-BOTH ×2 (09:14→20:33)
[2021-01-01] MEDS: LORazepam 0.5 MG TABLET 0.25 MG PO (09:15)
[2021-01-01] MEDS: 0.9 % Sodium Chloride Flush 3 ML SYRINGE IVFLUSH ×2 (09:15→16:51)
--- NOTE | 2021-01-01 10:11 | HO.PM.IMPN ---
Subjective Subjective Date of Service: 01/01/21 Interval History: seen and examined this am reports ongoing generalized abdominal pain as well as persistent nausea. frequent episodes of non-bloody diarrhea scared to eat due to nausea Review of Systems Review of Systems: Yes all other systems are reviewed and are negative Constitutional Constitutional: Denies chills and Denies fever(s) Cardiovascular Cardiovascular: Denies chest pain Respiratory Respiratory: Denies cough Gastrointestinal Gastrointestinal: Reports abdominal pain, Reports diarrhea, Reports nausea and Denies vomiting Physical Exam Vital Signs: Vital Signs: Last Vital Signs Temp 96.4 F L 01/01/21 07:28 Pulse 67 01/01/21 07:56 Resp 18 01/01/21 07:28 BP 126/74 01/01/21 07:28 Pulse Ox 99 01/01/21 07:28 Body Mass Index 34.9 Const: General: alert Nutritional Appearance: well nourished and overweight Orientation/consciousness: patient oriented x3 HENMT: Head: Yes normocephalic and Yes atraumatic Eyes: Sclerae: sclerae normal Chest: Chest palpation & inspection: normal inspection of the chest Resp: Effort & Inspection: normal respiratory effort and no respiratory distress Auscultation: clear to auscultation bilaterally Cardio: Rate: regular rate Rhythm: regular rhythm GI: Other: generalized tenderness to palpation, soft, non-disteded Neuro: General: patient oriented x3 Cranial nerves: Yes CN's II-XII intact bilaterally and Yes Bilaterally intact EOM present Objective Data Current Medications Generic Name Dose Route Start Last Admin Trade Name Freq PRN Reason Stop Dose Admin Albuterol Sulfate 2.5 mg 12/29/20 21:00 01/01/21 07:55 Albuterol Sulfate (0.083%) 2.5 Mg/3 Ml Vial.Neb INHALE 2.5 mg RQID JOURDAN Administration Albuterol Sulfate 2 puff 12/29/20 17:56 Albuterol Sulfate 90 Mcg 8 Gm Inhaler INHALE Q6H PRN Wheezing Atorvastatin Calcium 10 mg 12/29/20 21:00 12/31/20 20:08 Atorvastatin Calcium 10 Mg Tablet PO 10 mg BEDTIME JOURDAN Administration Dextrose 25 gm 12/29/20 18:01 Dextrose 50 % 25 Gm/50 Ml Vial IVPUSH Q15M PRN per Hypoglycemia Standing Ord. Protocol Enoxaparin Sodium 40 mg 12/30/20 10:00 01/01/21 09:03 Enoxaparin Sodium 40 Mg/0.4 Ml Syringe SUBCUT 40 mg Q24H JOURDAN Administration Folic Acid 1 mg 12/29/20 21:00 12/31/20 20:08 Folic Acid 1 Mg Tablet PO 1 mg BEDTIME JOURDAN Administration Gabapentin 600 mg 12/29/20 21:00 01/01/21 09:03 Gabapentin 300 Mg Capsule PO Not Given QID JOURDAN Glucose 15 gm 12/29/20 18:01 Glucose Gel 15 Gm Gel..Gram. PO Q15M PRN per Hypoglycemia Standing Ord. Protocol Hydromorphone HCl 0.5 mg 12/29/20 16:12 01/01/21 09:01 Hydromorphone Hcl 0.5 Mg/0.5 Ml Syringe IVPUSH 0.5 mg Q2H PRN Administration Pain, Severe (Pain Scale 7-10) Protocol Ceftriaxone Sodium 2 gm/ 50 mls @ 100 mls/hr 12/30/20 16:00 12/31/20 17:00 Sodium Chloride IV Infused Q24H JOURDAN Infusion Metronidazole 500 mg in 100 mls @ 100 mls/hr 12/30/20 01:00 01/01/21 10:07 Flagyl IV Infused Q8H JOURDAN Infusion Promethazine HCl 12.5 mg/ 50.5 mls @ 202 mls/hr 12/31/20 15:09 01/01/21 05:44 Sodium Chloride IV Infused Q6H PRN Infusion Nausea Insulin Glargine 15 unit 12/29/20 21:00 12/31/20 20:12 Insulin Glargine,Hum.Rec.Anlog 100 Unit/Ml 10 Ml Vial SUBCUT Not Given BEDTIME JOURDAN Insulin Human Lispro 0 unit 12/29/20 21:00 01/01/21 08:08 Insulin Lispro 100 Unit/Ml 3 Ml Vial SUBCUT Not Given QIDACHS [facility] Protocol Lorazepam 0.25 mg 12/31/20 15:11 01/01/21 09:15 Lorazepam 0.5 Mg Tablet PO 0.25 mg Q8H PRN Administration Anxiety Multivitamins/Vitamin C 1 tab 12/29/20 18:00 01/01/21 09:02 Multivitamin Tablet PO 1 tab DAILY JOURDAN Administration Omeprazole 20 mg 12/31/20 16:30 01/01/21 05:29 Omeprazole 20 Mg Capsule. PO 20 mg BID@0630,1240 JOURDAN Administration Ondansetron HCl 4 mg 12/30/20 09:49 01/01/21 07:49 Ondansetron Hcl 4 Mg/2 Ml Vial IVPUSH 4 mg Q8H PRN Administration Nausea and Vomiting Prednisolone Acetate 1 drop 12/29/20 21:00 01/01/21 09:14 Prednisolone Acetate 1 % Oph Susp 5 Ml Drpbtl EYE-BOTH 1 drop TID JOURDAN Administration Sodium Chloride 3 ml 12/30/20 00:00 01/01/21 09:15 0.9 % Sodium Chloride Flush 3 Ml Syringe IVFLUSH 3 ml QSHIFT JOURDAN Administration Thiamine HCl 100 mg 12/29/20 21:00 12/31/20 20:08 Thiamine Hcl 100 Mg Tablet PO 100 mg BEDTIME JOURDAN Administration Labs CBC & Chem 7: 12/30/20 06:51 12/30/20 16:40 Labs: Laboratory Results - last 24 hr 12/31/20 12/31/20 01/01/21 11:01 16:20 07:27 POC Glucose 113 139 H 126 H Microbiology Microbiology Results: Microbiology 12/30/20 14:15 Stool Culture - Preliminary Stool Culture in progress. 12/29/20 15:54 Blood Culture - Preliminary Blood - Venous No growth after 48 hours. 12/29/20 15:53 Blood Culture - Preliminary Blood - Venous No growth after 48 hours. Assessment and Plan (1) Diverticulitis: Status: Acute Assessment and Plan: This is a 65 yo M with a PMH of EtOh abuse and dependence who recently was discharged from a rehab and now presents to the hospital with complaints of abodminal pain of several days duration. His CT scan is consistent with acute diverticulitis. Acute Diverticulitis Persistent abdominal pain, nausea, diarrhea Seen by GI -continue rocephin/flagyl -pain control -IV zofran for nausea -follow up colonoscopy in 8-12 weeks Nausea may be secondary to acidity/gerd -GI rec increase PPI to bid -will advance diet, eating may help -continue anitemetics -if persistent sx may need outpatient EGD in future Diarrhea Stool culture pending -Check cdif -if cdif neg can start immodium HyperK. resolved 1 dose of kayexlate BP on the lower side can continue hold lisinopril for now HypoNa. resolved SNa was 127 at the time of admission, now 138 received 1L 1/2 NS HTN Lisinopril on hold DM lantus + sliding scale Jardiance on hold Chronic diastolic CHF does not appear to be on diuretic at baseline no signs of fluid overload Full Code DVT pptx, Lovenox Attending: Dr. Palmer Quality Stroke Does the patient have a stroke diagnosis?: No VTE Prior VTE?: No VTE Risk Level:: Medical - low VTE Device Contraindication: N/A - Device Ordered VTE Drug Contraindication: Treatment Not Indicated
[2021-01-01 11:33] LABS: Glucose, Whole Blood 168 mg/dL (60-115)
[2021-01-01] MEDS: Insulin Lispro 100 UNIT/ML 3 ML VIAL SUBCUT ×2 (11:43→16:50)
[2021-01-01 13:15] LABS: CDiff Gene PCR NEGATIVE (Negative)
--- NOTE | 2021-01-01 15:43 | MHC.CM.PN ---
PER MD ROUNDS, PT EXPECTED TO DC TOMORROW WITH RESUMPTION OF [facility]
[2021-01-01 16:26] LABS: Glucose, Whole Blood 162 mg/dL (60-115)
[2021-01-01] MEDS: cefTRIAXone sodium 2 GM in 0.9 % Sodium Chloride 50 ML IV (16:51)
[2021-01-01] MEDS: Metoclopramide HCl 10 MG/2 ML VIAL 5 MG IVPUSH (17:31)
[2021-01-01] MEDS: Folic Acid 1 MG TABLET PO (20:31)
[2021-01-01] MEDS: Atorvastatin Calcium 10 MG TABLET PO (20:31)
[2021-01-01] MEDS: Thiamine HCL 100 MG TABLET PO (20:32)
[2021-01-01] MEDS: Insulin Glargine,Hum.rec.anlog 100 UNIT/ML 10 ML VIAL 15 UNIT SUBCUT (20:32)
[2021-01-01 20:33] LABS: Glucose, Whole Blood 207 mg/dL (60-115)
[2021-01-02] VITALS (9 sets, daily range): BP systolic 98–142; BP diastolic 55–77; PULSE 70–92; RESP 17–20; TEMP 36–36.4; O2SAT 95–99
[2021-01-02] MEDS: metroNIDAZOLE/NS 500 MG/100 ML PIGGYBACK 100 MG IV ×3 (00:42→16:20)
[2021-01-02] MEDS: 0.9 % Sodium Chloride Flush 3 ML SYRINGE IVFLUSH ×4 (00:42→20:59)
[2021-01-02] MEDS: Omeprazole 20 MG CAPSULE.DR PO ×2 (06:04→16:19)
[2021-01-02] MEDS: ondansetron HCL 4 MG/2 ML VIAL IVPUSH ×3 (06:58→20:47)
[2021-01-02 08:10] LABS: Glucose, Whole Blood 137 mg/dL (60-115)
[2021-01-02] MEDS: Albuterol Sulfate (0.083%) 2.5 MG/3 ML VIAL.NEB INHALE ×3 (08:12→16:14)
[2021-01-02 08:31] LABS: Anion Gap 17 (12-20); Blood Urea Nitrogen 5 mg/dL (9-16); Calcium 8.9 mg/dL (8.4-10.2); Carbon Dioxide 24 mmol/L (22-29); Chloride 102 mmol/L (96-108); Creatinine Clr Calc Pharmacy 100.2; Estimated Glomerular Filt Rate > 60; Glucose Random 150 mg/dL (60-115); Potassium 5.1 mmol/L (3.3-5.1); Sodium 138 mmol/L (135-145)
[2021-01-02] MEDS: Multivitamin TABLET 1 TAB PO (08:38)
[2021-01-02] MEDS: HYDROmorphone HCl 0.5 MG/0.5 ML SYRINGE IVPUSH (08:38)
[2021-01-02] MEDS: Enoxaparin Sodium 40 MG/0.4 ML SYRINGE SUBCUT (08:39)
[2021-01-02] MEDS: LORazepam 0.5 MG TABLET 0.25 MG PO ×2 (09:03→20:48)
[2021-01-02] MEDS: Loperamide HCl 2 MG CAPSULE PO ×3 (09:34→22:57)
[2021-01-02] MEDS: Magnesium Hydrox/Alum Hydrox 30 ML ORAL.SUSP 15 ML PO ×2 (09:34→16:22)
[2021-01-02 12:17] LABS: Glucose, Whole Blood 174 mg/dL (60-115)
[2021-01-02] MEDS: Insulin Lispro 100 UNIT/ML 3 ML VIAL SUBCUT ×3 (12:27→20:57)
[2021-01-02] MEDS: Metoclopramide HCl 5 MG TABLET PO ×3 (12:27→20:41)
--- NOTE | 2021-01-02 15:01 | P.PNIM_ITS ---
Subjective Subjective Date of Service: 01/02/21 Interval History: Seen and examined Follow-up for intractable nausea Reports no relief with any antiemetics although tolerating a full diet Review of Systems Review of Systems: Yes all other systems are reviewed and are negative Constitutional Constitutional: Denies chills and Denies fever(s) Cardiovascular Cardiovascular: Denies chest pain Respiratory Respiratory: Denies cough Gastrointestinal Gastrointestinal: Denies abdominal pain and Reports nausea Physical Exam Vital Signs: Vital Signs: Last Vital Signs Temp 96.8 F 01/02/21 11:27 Pulse 84 01/02/21 11:45 Resp 18 01/02/21 11:27 BP 98/63 01/02/21 11:27 Pulse Ox 96 01/02/21 11:27 Body Mass Index 34.9 Const: General: alert Nutritional Appearance: well nourished and overweight Orientation/consciousness: patient oriented x3 HENMT: Head: Yes normocephalic and Yes atraumatic Eyes: Sclerae: sclerae normal Chest: Chest palpation & inspection: normal inspection of the chest Resp: Effort & Inspection: normal respiratory effort and no respiratory distr ess Auscultation: clear to auscultation bilaterally Cardio: Rate: regular rate Rhythm: regular rhythm GI: Other: generalized tenderness to palpation, soft, non-disteded Neuro: General: patient oriented x3 Cranial nerves: Yes CN's II-XII intact bilaterally and Yes Bilaterally intact EOM present Objective Data Current Medications Generic Name Dose Route Start Last Admin Trade Name Freq PRN Reason Stop Dose Admin Al Hydroxide/Mg Hydroxide 15 ml 01/01/21 14:03 01/02/21 09:34 Magnesium Hydrox/Alum Hydrox 30 Ml Oral.Susp PO 15 ml Q6H PRN Administration Dyspepsia Albuterol Sulfate 2.5 mg 12/29/20 21:00 01/02/21 11:43 Albuterol Sulfate (0.083%) 2.5 Mg/3 Ml Vial.Neb INHALE 2.5 mg RQID JOURDAN Administration Albuterol Sulfate 2 puff 12/29/20 17:56 Albuterol Sulfate 90 Mcg 8 Gm Inhaler INHALE Q6H PRN Wheezing Atorvastatin Calcium 10 mg 12/29/20 21:00 01/01/21 20:31 Atorvastatin Calcium 10 Mg Tablet PO 10 mg BEDTIME JOURDAN Administration Dextrose 25 gm 12/29/20 18:01 Dextrose 50 % 25 Gm/50 Ml Vial IVPUSH Q15M PRN per Hypoglycemia Standing Ord. Protocol Enoxaparin Sodium 40 mg 12/30/20 10:00 01/02/21 08:39 Enoxaparin Sodium 40 Mg/0.4 Ml Syringe SUBCUT 40 mg Q24H JOURDAN Administration Folic Acid 1 mg 12/29/20 21:00 01/01/21 20:31 Folic Acid 1 Mg Tablet PO 1 mg BEDTIME JOURDAN Administration Gabapentin 600 mg 12/29/20 21:00 01/02/21 12:32 Gabapentin 300 Mg Capsule PO Not Given QID JOURDAN Glucose 15 gm 12/29/20 18:01 Glucose Gel 15 Gm Gel..Gram. PO Q15M PRN per Hypoglycemia Standing Ord. Protocol Ceftriaxone Sodium 2 gm/ 50 mls @ 100 mls/hr 12/30/20 16:00 01/01/21 17:27 Sodium Chloride IV Infused Q24H JOURDAN Infusion Metronidazole 500 mg in 100 mls @ 100 mls/hr 12/30/20 01:00 01/02/21 10:15 Flagyl IV Infused Q8H [facility] Infusion Insulin Glargine 15 unit 12/29/20 21:00 01/01/21 20:32 Insulin Glargine,Hum.Rec.Anlog 100 Unit/Ml 10 Ml Vial SUBCUT 15 unit BEDTIME JOURDAN Administration Insulin Human Lispro 0 unit 12/29/20 21:00 01/02/21 12:27 Insulin Lispro 100 Unit/Ml 3 Ml Vial SUBCUT 2 unit QIDACHS JOURDAN Administration Protocol Loperamide HCl 2 mg 01/02/21 09:04 01/02/21 09:34 Loperamide Hcl 2 Mg Capsule PO 2 mg Q6H PRN Administration Diarrhea Lorazepam 0.25 mg 12/31/20 15:11 01/02/21 09:03 Lorazepam 0.5 Mg Tablet PO 0.25 mg Q8H PRN Administration Anxiety Metoclopramide HCl 5 mg 01/02/21 11:30 01/02/21 12:27 Metoclopramide Hcl 5 Mg Tablet PO 5 mg QIDACHS JOURDAN Administration Multivitamins/Vitamin C 1 tab 12/29/20 18:00 01/02/21 08:38 Multivitamin Tablet PO 1 tab DAILY JOURDAN Administration Omeprazole 20 mg 12/31/20 16:30 01/02/21 06:04 Omeprazole 20 Mg Capsule. PO 20 mg BID@0630,1630 JOURDAN Administration Ondansetron HCl 4 mg 01/01/21 14:21 01/02/21 14:39 Ondansetron Hcl 4 Mg/2 Ml Vial IVPUSH 4 mg Q6H PRN Administration Nausea and Vomiting Prednisolone Acetate 1 drop 12/29/20 21:00 01/02/21 12:32 Prednisolone Acetate 1 % Oph Susp 5 Ml Drpbtl EYE-BOTH Not Given TID JOURDAN Sodium Chloride 3 ml 12/30/20 00:00 01/02/21 08:39 0.9 % Sodium Chloride Flush 3 Ml Syringe IVFLUSH 3 ml QSHIFT JOURDAN Administration Thiamine HCl 100 mg 12/29/20 21:00 01/01/21 20:32 Thiamine Hcl 100 Mg Tablet PO 100 mg BEDTIME JOURDAN Administration Labs CBC & Chem 7: 12/30/20 06:51 01/02/21 07:48 Labs: Laboratory Results - last 24 hr 01/01/21 01/01/21 01/02/21 16:22 20:17 07:48 Anion Gap 17 Estim Creat Clear Calc 100.2 Estimated GFR > 60 POC Glucose 162 H 207 H Random Glucose 150 H Calcium 8.9 01/02/21 01/02/21 07:51 11:25 Anion Gap Estim Creat Clear Calc Estimated GFR POC Glucose 137 H 174 H Random Glucose Calcium Microbiology Microbiology Results: Microbiology 12/30/20 14:15 Stool Culture - Final Stool Assessment and Plan (1) Diverticulitis: Status: Acute Assessment and Plan: This is a 65 yo M with a PMH of EtOh abuse and dependence who recently was discharged from a rehab and now presents to the hospital with complaints of abodminal pain of several days duration. His CT scan is consistent with acute diverticulitis. Acute Diverticulitis Improvement in abdominal pain Persistent nausea, diarrhea Seen by GI -continue rocephin/flagyl -IV zofran for nausea -follow up colonoscopy in 8-12 weeks Persistent Nausea may be secondary to acidity/gerd able to tolerate full diet but does not feel able to return home with current nausea -continue PPI bid -continue anitemetics -if persistent sx may need outpatient EGD in future -will reconsult GI Diarrhea Stool culture, C diff negative -prn immodium HyperK. resolved BP on the lower side can continue hold lisinopril for now HypoNa. resolved received 1L 1/2 NS HTN BP soft Lisinopril on hold DM lantus + sliding scale Jardiance on hold Chronic diastolic CHF does not appear to be on diuretic at baseline no signs of fluid overload Full Code DVT pptx, Rachaelx Attending: Dr. Palmer Quality Stroke Does the patient have a stroke diagnosis?: No VTE Prior VTE?: No VTE Risk Level:: Medical - low VTE Device Contraindication: N/A - Device Ordered VTE Drug Contraindication: Treatment Not Indicated
[2021-01-02] MEDS: cefTRIAXone sodium 2 GM in 0.9 % Sodium Chloride 50 ML IV (16:19)
[2021-01-02] MEDS: diphenhydrAMINE HCL 25 MG TABLET PO (16:20)
[2021-01-02 16:35] LABS: Glucose, Whole Blood 175 mg/dL (60-115)
[2021-01-02] MEDS: Acetaminophen 325 MG TABLET 650 MG PO (20:41)
[2021-01-02] MEDS: Folic Acid 1 MG TABLET PO (20:41)
[2021-01-02] MEDS: Thiamine HCL 100 MG TABLET PO (20:41)
[2021-01-02] MEDS: Atorvastatin Calcium 10 MG TABLET PO (20:41)
[2021-01-02 20:54] LABS: Glucose, Whole Blood 203 mg/dL (60-115)
[2021-01-02] MEDS: Insulin Glargine,Hum.rec.anlog 100 UNIT/ML 10 ML VIAL 15 UNIT SUBCUT (20:57)
[2021-01-03] MEDS: metroNIDAZOLE/NS 500 MG/100 ML PIGGYBACK 100 MG IV ×2 (01:14→07:43)
[2021-01-03] MEDS: Acetaminophen 325 MG TABLET 650 MG PO (02:17)
[2021-01-03 04:00] VITALS: RESP 17
[2021-01-03] MEDS: Omeprazole 20 MG CAPSULE.DR PO (07:02)
[2021-01-03] MEDS: Albuterol Sulfate 90 MCG 8 GM INHALER 2 PUFF INHALE (07:08)
[2021-01-03 07:35] VITALS: BP 104/64; PULSE 81; RESP 18; TEMP 36; O2SAT 95
[2021-01-03 07:43] LABS: Glucose, Whole Blood 137 mg/dL (60-115)
[2021-01-03] MEDS: Multivitamin TABLET 1 TAB PO (07:43)
[2021-01-03] MEDS: Metoclopramide HCl 5 MG TABLET PO ×2 (07:43→11:18)
[2021-01-03] MEDS: prednisoLONE Acetate 1 % Oph Susp 5 ML DRPBTL 1 DROP EYE-BOTH (07:43)
[2021-01-03] MEDS: 0.9 % Sodium Chloride Flush 3 ML SYRINGE IVFLUSH (07:44)
[2021-01-03] MEDS: Loperamide HCl 2 MG CAPSULE PO ×2 (08:02→11:18)
[2021-01-03] MEDS: ondansetron HCL 4 MG/2 ML VIAL IVPUSH (08:02)
[2021-01-03] MEDS: Magnesium Hydrox/Alum Hydrox 30 ML ORAL.SUSP 15 ML PO (08:02)
--- NOTE | 2021-01-03 10:23 | PM.DS ---
DS: Providers Provider Date of Service: 01/03/21 Date of admission: 12/30/20 10:00 Primary care physician: Jaylen uCmmings MD Consults: 12/31/20 10:09 Consult to Gastroenterology Routine Consulting Provider: Juan A Rivers Reason for consultation: diverticulitis Has provider been notified: No DS: Diagnosis Discharge Diagnosis (1) Diverticulitis: Status: Acute DS: Medications Discharge Medications Home Medications: Home Medications Medication Instructions Recorded Confirmed albuterol sulfate 1 amp INHALATION QID 12/29/20 12/29/20 albuterol sulfate 90 mcg/actuation 2 puff INHALATION QID PRN 12/29/20 12/29/20 aerosol inhaler blood sugar diagnostic (FreeStyle 12/29/20 12/29/20 Lite Strips) empagliflozin 10 mg tablet 1 tab PO QAM 12/29/20 12/29/20 (Jardiance) folic acid 1 mg tablet 1 tab PO QPM 12/29/20 12/29/20 gabapentin 300 mg capsule 2 cap PO QID 12/29/20 12/29/20 insulin aspart U-100 100 unit/mL See Protocol SUBCUT BIDAC 12/29/20 12/29/20 subcutaneous solution (Novolog U-100 Insulin aspart) lisinopril 10 mg tablet 1 tab PO QAM 12/29/20 12/29/20 loteprednol etabonate 0.5 % eye 1 drp OPHTHALMIC (EYE) TID 12/29/20 12/29/20 drops,suspension multivitamin 1 tab PO QAM 12/29/20 12/29/20 omega-3 fatty acids-fish oil 340 1 cap PO QAM 12/29/20 12/29/20 mg-1,000 mg capsule (Fish Oil) simvastatin 20 mg tablet 1 tab PO BEDTIME 12/29/20 12/29/20 thiamine HCl (vitamin B1) 100 mg 1 tab PO QPM 12/29/20 12/29/20 tablet Previous Rx's Medication Instructions Recorded cefuroxime axetil 500 mg tablet 500 mg PO BID #10 tab 01/03/21 metronidazole 500 mg tablet 500 mg PO Q8H #15 tab 01/03/21 (Flagyl) omeprazole 20 mg capsule,delayed 1 cap PO BID #0 cap 01/03/21 release DS: Summary Hospital Course Hospital Course: HPI: 65-year-old male with history of alcohol use/abuse, COPD, diabetes mellitus type 1 (insulin-dependent), diastolic heart failure, hyperlipidemia, hypertension, aortic valve stenosis, who was recently discharged from a rehabilitation facility for alcohol withdrawals, who presented with stomach pains, diarrhea, lack of sleep, for the past 4 days.? History is from patient and from ED notes. Patient sources that for the past 4 days, he has been having abdominal pain, diarrhea, decreased oral intake and difficulty sleeping/lack of sleep.? He says this is likely secondary to his alcohol withdrawals.? He tried drinking 2 beers yesterday to help with the withdrawal symptoms.? He also endorses drinking milk of magnesia because he states that having bowel movements may not feel better.? When I asked if he is constipated, he said no.? The patient is a somewhat poor historian. Otherwise, he denies sick contacts, fever, chills, chest pain, shortness of breath. In the ED, vitals were remarkable for blood pressures as low as 106/57.? Otherwise vitals were unremarkable. Labs were remarkable for sodium level 127, glucose of 172. Abdominal CT revealed mild acute diverticulitis in the proximal to mid 1/3 of the descending colon without evidence for perforation or abscess formation.? (please see official report for full details) In the ED, patient was treated with IV morphine, IV Dilaudid, IV ceftriaxone, IV metronidazole, and Zofran.? The patient is being admitted for intractable abdominal pain likely secondary to diverticulitis, hyponatremia. Hospital Course: Patient was started on IV ceftriaxone and IV Flagyl for his diverticulitis. Initially, the patient refused to eat a clear liquid diet and instead 8 solids which increased his abdominal pain. Subsequently his diet was downgraded to clear liquids for 24 hours with improvement in his abdominal pain. However he began to have persistent severe nausea requiring multiple antiemetics. After this persisted for 24 hours gastroenterology saw him and his PPI dose was increased to b.i.d. dosing. Patient continued to have persistent nausea for an additional 24 hours but fortunately this resolved. He was tolerating solids at the time of discharge. He will be discharged home with 5 more days of antibiotics to complete a course for diverticulitis. He has been advised to follow up with his rabbit fancier at [facility] for possible colonoscopy and endoscopy if needed. Time Spent with Patient Time attestation: Total time spent providing and/or coordinating discharge services: Discharge coordination time: Greater than 30 minutes Quality: Stroke Does the patient have a stroke diagnosis?: No Physical Exam Vital Signs: Vital Signs: Last Vital Signs Temp 96.8 F 01/03/21 07:35 Pulse 81 01/03/21 07:35 Resp 18 01/03/21 07:35 BP 104/64 01/03/21 07:35 Pulse Ox 95 01/03/21 07:35 Body Mass Index 34.9 Const: Other: General - no acute distress, appears comfortable Cardiovascular - regular rate and rhythm, S1-S2 Lungs - normal respiratory effort, clear to auscultation bilaterally, no wheezing Abdomen - soft, nontender, no rebound or guarding Extremities - no edema bilaterally Neuro - awake and alert, no focal deficits DS: Data Data Completed and Pending Labs on day of discharge: Laboratory Results - last 24 hr 01/02/21 01/02/21 01/02/21 11:25 16:27 20:50 POC Glucose 174 H 175 H 203 H 01/03/21 07:34 POC Glucose 137 H Preliminary micro results at discharge 12/29/20 15:54 Blood Culture - Preliminary Blood - Venous No growth after 48 hours. 12/29/20 15:53 Blood Culture - Preliminary Blood - Venous No growth after 48 hours. Discharge Plan Discharge Patient Disposition: Home, Self-Care Discharge Diagnosis: Diverticulitis Referrals: Thuy [Outside] - 1 Week Name,MD Jaylen [Primary Care Provider] - 1 Week Discharge Medications: New cefuroxime axetil 500 mg tablet 500 mg PO BID Qty: 10 RF: 0 metronidazole [Flagyl] 500 mg tablet 500 mg PO Q8H Qty: 15 RF: 0 Continued multivitamin Tablet 1 tab PO QAM RF: 0 albuterol sulfate 2.5 mg /3 mL (0.083 %) solution for nebulization 1 amp inhalation QID RF: 0 thiamine HCl (vitamin B1) 100 mg tablet 1 tab PO QPM RF: 0 (DME) FreeStyle Lite Strips Strip MISCELLANEOUS QID RF: 0 insulin aspart U-100 [Novolog U-100 Insulin aspart] 100 unit/mL solution See Protocol sliding scale dose subcut BIDAC RF: 0 simvastatin 20 mg tablet 1 tab PO BEDTIME RF: 0 lisinopril 10 mg tablet 1 tab PO QAM RF: 0 gabapentin 300 mg capsule 2 cap PO QID RF: 0 folic acid 1 mg tablet 1 tab PO QPM RF: 0 loteprednol etabonate 0.5 % drops,suspension 1 drp ophthalmic (eye) TID RF: 0 albuterol sulfate 90 mcg/actuation HFA aerosol inhaler 2 puff inhalation QID PRN (Reason: Wheezing) RF: 0 Fish Oil 340-1,000 mg capsule 1 cap PO QAM RF: 0 Jardiance 10 mg tablet 1 tab PO QAM RF: 0 Changed omeprazole 20 mg capsule,delayed release(DR/EC) 1 cap PO BID Qty: 0 RF: 0 Discharge Orders: Discharge Order (Routine); Ordered 01/03/21 Ordered By: Mike Palmer Diet: advance to usual diet Activity on Discharge: As tolerated Stand Alone Forms: Patient Portal Discharge page Care Plan Goals: To stay healthy and out of the hospital. Health Concerns: Diverticulitis Nausea Plan of Treatment: Take prilosec twice daily. FInish 5 more days of antibiotics. Follow up with your GI doctors at [facility]. Assessment: 65 yo M admitted for diverticulitis. Treated with IV antibotics and improved. To follow up with his GI at [facility]. Patient Instructions: Diverticulitis (ED), Diverticulitis Diet (ED)
--- NOTE | 2021-01-03 11:41 | MHC.CM.PN ---
PT CLEARED FOR DC HOME TODAY WITH RESUMPTION OF HIS [facility]. DC PAPERWORK FAXED TO [facility] AT [phone] PT PROVIDED WITH A VOUCHER FOR THE [facility]
== END 2021-01-03 11:40 | disposition home or self-care (01) | DRG 392 ==
LOC: HO.ED 15:16 → HO.EDOVER 16:36 → HO.S3 12-30 11:24
PROVIDERS: Physician Assistant; Physician Assistant Medical; Admitting Provider Internal Medicine; Emergency Provider Emergency Medicine; PCP Internal Medicine Geriatric Medicine; Visit Provider Family Medicine
DX: K57.32 Diverticulitis of large intestine without perforation or abscess without bleeding (principal); E87.1 Hypo-osmolality and hyponatremia; I50.32 Chronic diastolic (congestive) heart failure; I11.0 Hypertensive heart disease with heart failure; E87.5 Hyperkalemia; K21.9 Gastro-esophageal reflux disease without esophagitis; E78.5 Hyperlipidemia, unspecified; E10.9 Type 1 diabetes mellitus without complications; F17.210 Nicotine dependence, cigarettes, uncomplicated; Z71.6 Tobacco abuse counseling; Z20.822 Contact with and (suspected) exposure to COVID-19; Z79.899 Other long term (current) drug therapy
CPT/HCPCS: 36415; 74177; 80048; 80053; 81003; 82077; 82947; 83690; 83735; 85025; 87040; 87045; 87046; 87493; 87635; 93005; 94640; 96361; 96365; 96367; 96375; 96376; 99220; 99285; J0696; J1170; J1650; J2270; J2405; J2550; J2765; Q0163; Q9967

== ENCOUNTER 2021-01-10 15:12 | Emergency (ER) | payer OTHER, SELFPAY ==
--- NOTE | ~2021-01-10 | CT_ITS ---
EXAMINATION: CT ABDOMEN AND PELVIS WITH CONTRAST CLINICAL INFORMATION: Abdominal pain with recent history of diverticulitis. COMPARISON: CT abdomen and pelvis dated 12/29/2020 TECHNIQUE: Multidetector volumetric images were obtained from the superior aspect of the liver through the pubic symphysis following administration of 100 mL of Omnipaque 350 intravenous contrast. Sagittal and coronal reformatted images were obtained on the technologist's workstation. Oral contrast: No. This CT examination was performed using dose optimization techniques as appropriate, variously including the following: *Automated exposure control *Adjustment of mA and/or kV according to patient size (this includes techniques or standardized protocols for targeted exams where dose is matched to indication/reason for exam; i.e. extremities or head) *Use of iterative reconstruction technique DLP: 847 mGy-cm FINDINGS: LUNG BASES: There is no airspace consolidation. No pleural effusion. LIVER, GALLBLADDER, AND BILIARY TREE: The liver enhances homogeneously. There is no significant hepatomegaly. The contour is smooth. No evidence of focal lesion or biliary ductal dilation. The gallbladder is unremarkable with no evidence of radiopaque gallstones, gallbladder wall thickening, or obvious pericholecystic inflammatory changes. PANCREAS: Unremarkable. SPLEEN: Unremarkable. ADRENAL GLANDS: Unremarkable. KIDNEYS AND URETERS: Again seen are small low density lesions bilaterally most likely representing cysts. Several are too small to fully characterize. There is no evidence of hydronephrosis or hydroureter. No evidence of obstructive calculus. There is bilateral nonspecific perinephric stranding, similar compared to prior. BLADDER: Fairly prominently distended, similar to several prior examinations. Otherwise unremarkable. GASTROINTESTINAL TRACT: Again seen is a small hiatal hernia. There is no abnormal small bowel dilation. Moderate diverticulosis of the distal descending and sigmoid colon again seen. This is again associated with mild mesenteric stranding. There is no adjacent focal fluid collection. No definite extraluminal gas is appreciated, and there is no jero pneumoperitoneum. The colon contains liquid stool with a few scattered air-fluid levels. The appendix is unremarkable. ABDOMINAL WALL: There are bilateral small fat-containing inguinal hernias. LYMPH NODES: No evidence of pathologically enlarged retroperitoneal or mesenteric lymphadenopathy by size criteria. VASCULAR: There is moderate aortoiliac atherosclerosis. No abdominal aortic aneurysm. PELVIC VISCERA: The prostate gland appears enlarged. No pelvic free fluid. OSSEOUS STRUCTURES: There are multiple bilateral subacute versus healed rib fractures. Old avulsion injury at the right anterior inferior iliac spine. The femoral heads demonstrate serpiginous sclerosis likely representing osteonecrosis. There is no jero articular surface collapse. CT/CT abdomen pelvis w con IMPRESSION: There is persistent mild inflammatory change in the left lower quadrant in the region of moderate diverticulosis. This may represent recurrent or ongoing diverticulitis. There is no evidence of abscess formation or perforation. Otherwise, no acute findings within the abdomen and pelvis. The bladder is persistently distended, and the prostate gland is enlarged which may reflect some degree of chronic outlet obstruction. Additional findings are as noted above.
[2021-01-10 15:20] VITALS: BP 130/58; BP 134/80; PULSE 96; PULSE 97; RESP 16; TEMP 37; O2SAT 96; BMI 34.9
--- NOTE | 2021-01-10 15:29 | ECG_ITS ---
Test Reason : NAUSEA Blood Pressure : / mmHG Vent. Rate : 085 BPM Atrial Rate : 085 BPM P-R Int : 170 ms QRS Dur : 072 ms QT Int : 364 ms P-R-T Axes : 073 013 087 degrees QTc Int : 433 ms Normal sinus rhythm Low voltage QRS Nonspecific T wave abnormality Abnormal ECG When compared with ECG of 29-DEC-2020 16:35, Nonspecific T wave abnormality, worse in Lateral leads Referred By: Chelsea Verduzco Electronically Signed By:MIKA FREIRE
--- NOTE | 2021-01-10 15:31 | ED_ITS ---
HPI - Nausea/Vomiting/Diarrhea General Chief complaint: Nausea/Vomiting/Diarrhea Stated complaint: insomnia/dehydration Time Seen by Provider: 01/10/21 15:13 Source: patient Mode of arrival: EMS History of Present Illness HPI Narrative: 65-year-old male who is diabetic and recently discharged after being treated for diverticulitis presents via EMS for persistent episodes of diarrhea since discharge and some mild nausea however this is not prevented him from being able to eat meals and take his medication. Otherwise, patient denies fever, chills but states that is abdomen is still painful and he feels like this is due to the diarrhea. He has not been taking his insulin regularly as he has noted the values are low due to the extensive diarrhea that he has been experiencing. Related Data Home Medications Medication Instructions Recorded Confirmed albuterol sulfate 1 amp INHALATION QID 12/29/20 12/29/20 albuterol sulfate 90 mcg/actuation 2 puff INHALATION QID PRN 12/29/20 12/29/20 aerosol inhaler blood sugar diagnostic (FreeStyle 12/29/20 12/29/20 Lite Strips) empagliflozin 10 mg tablet 1 tab PO QAM 12/29/20 12/29/20 (Jardiance) folic acid 1 mg tablet 1 tab PO QPM 12/29/20 12/29/20 gabapentin 300 mg capsule 2 cap PO QID 12/29/20 12/29/20 insulin aspart U-100 100 unit/mL See Protocol SUBCUT BIDAC 12/29/20 12/29/20 subcutaneous solution (Novolog U-100 Insulin aspart) lisinopril 10 mg tablet 1 tab PO QAM 12/29/20 12/29/20 loteprednol etabonate 0.5 % eye 1 drp OPHTHALMIC (EYE) TID 12/29/20 12/29/20 drops,suspension multivitamin 1 tab PO QAM 12/29/20 12/29/20 omega-3 fatty acids-fish oil 340 1 cap PO QAM 12/29/20 12/29/20 mg-1,000 mg capsule (Fish Oil) simvastatin 20 mg tablet 1 tab PO BEDTIME 12/29/20 12/29/20 thiamine HCl (vitamin B1) 100 mg 1 tab PO QPM 12/29/20 12/29/20 tablet Previous Rx's Medication Instructions Recorded cefuroxime axetil 500 mg tablet 500 mg PO BID #10 tab 01/03/21 metronidazole 500 mg tablet 500 mg PO Q8H #15 tab 01/03/21 (Flagyl) omeprazole 20 mg capsule,delayed 1 cap PO BID #0 cap 01/03/21 release Allergies Allergy/AdvReac Type Severity Reaction Status Date / Time ENVIRONMENTAL Allergy Mild SNEEZING, Uncoded 09/26/20 17:14 WATERY EYES Review of Systems Review of Systems: Pertinent positives and negatives as stated in HPI 10 point review systems otherwise negative. [facility] Past Medical History Source: nursing notes reviewed Medical History LAUREN (acute kidney injury) Alcohol abuse COPD (chronic obstructive pulmonary disease) Diabetes mellitus type 1 Diastolic dysfunction Diastolic heart failure HLD (hyperlipidemia) Hypertension Nonrheumatic aortic (valve) stenosis Obesity Family History Family History Father Diabetes Mother Diabetes Social History Social History Household Members: None Housing: Apartment Do you presently have visiting nurse or other home services: Yes Alcohol intake: former Patient Tobacco Use Status: Current everyday Tobacco user Tobacco use type: Cigar Second Hand Smoke Exposure: No Advance Directives: No Advance Directives Information Provided: Yes service: No Current occupational status: disabled Physical Exam Vital Signs: Vital Signs: Last Vital Signs Temp 98.6 F 01/10/21 15:20 Pulse 97 01/10/21 15:20 Resp 16 01/10/21 15:20 BP 130/58 L 01/10/21 15:20 Pulse Ox 96 01/10/21 15:20 Body Mass Index 34.9 VITAL SIGNS: Reviewed. GENERAL: Well developed, well nourished, in no acute distress. HEAD: Normocephalic/atraumatic, EYES: PERRLA, EOMI EARS: Ext canals without abnormality OROPHARYNX: no oral lesions noted, posterior pharynx clear, dry mucosa NECK: Supple, no adenopathy LUNGS: Good air entry, no expiratory wheezing noted, no rhonchi appreciated. SpO2<96> CARDIOVASCULAR: Regular rate and rhythm without noted murmurs ABDOMEN: Soft, diffusely tender without rebound, non-distended with bowel sounds. MUSCULOSKELETAL: No tenderness, deformities, or effusions noted on gross inspection. EXTREMITIES: No cyanosis, clubbing or edema. SKIN: Inspection of the skin reveals no rashes NEUROLOGIC: Alert and oriented x 4. Strength and sensation to light touch were grossly intact x 4. Course Course Course Narrative: 65-year-old male with history and clinical presentation suggestive of C diff colitis, possible abscess formation if resistant to antibiotic treatment and likely mild dehydration. Signed out to Dr Esteves. Discharge Plan Discharge Clinical Impression: Nausea, Diarrhea Prescriptions: No Action multivitamin Tablet 1 tab PO QAM RF: 0 albuterol sulfate 2.5 mg /3 mL (0.083 %) solution for nebulization 1 amp inhalation QID RF: 0 thiamine HCl (vitamin B1) 100 mg tablet 1 tab PO QPM RF: 0 (DME) FreeStyle Lite Strips Strip MISCELLANEOUS QID RF: 0 insulin aspart U-100 [Novolog U-100 Insulin aspart] 100 unit/mL solution See Protocol sliding scale dose subcut BIDAC RF: 0 simvastatin 20 mg tablet 1 tab PO BEDTIME RF: 0 lisinopril 10 mg tablet 1 tab PO QAM RF: 0 gabapentin 300 mg capsule 2 cap PO QID RF: 0 folic acid 1 mg tablet 1 tab PO QPM RF: 0 loteprednol etabonate 0.5 % drops,suspension 1 drp ophthalmic (eye) TID RF: 0 albuterol sulfate 90 mcg/actuation HFA aerosol inhaler 2 puff inhalation QID PRN (Reason: Wheezing) RF: 0 Fish Oil 340-1,000 mg capsule 1 cap PO QAM RF: 0 Jardiance 10 mg tablet 1 tab PO QAM RF: 0 cefuroxime axetil 500 mg tablet 500 mg PO BID Qty: 10 RF: 0 metronidazole [Flagyl] 500 mg tablet 500 mg PO Q8H Qty: 15 RF: 0 omeprazole 20 mg capsule,delayed release(DR/EC) 1 cap PO BID Qty: 0 RF: 0
--- NOTE | 2021-01-10 17:00 | PC.NURSE ---
Pt states that this morning while in her kitchen she turned around quickly and since then she has been having pain in her ribs. She denies any other symptoms. No c/o sob/headache/dizziness. Pt resting quietly, no apparent distress noted.
[2021-01-10] MEDS: 0.9 % Sodium Chloride 1,000 ML 999 ML IV (17:01)
[2021-01-10 17:08] LABS: MANUAL DIFF FLAG NO
[2021-01-10 17:10] LABS: Basophils Absolute Auto 0.1 X10*3/uL (0.0-0.2); Eosinophils Absolute Auto 0.3 X10*3/uL (0.0-0.4); Hematocrit 43.5 % (42-52); Hemoglobin 15.1 g/dl (14.0-18.0); Imm Gran Abs Auto 0.04 X10*3/uL (0.00-0.03); Imm Gran Pct Auto 0.5 % (0.0-0.4); Lymphocytes Absolute Auto 1.2 X10*3/uL (1.2-4.9); Lymphocytes Percent Auto 15.6 % (20-40); Mean Corpuscular HGB Conc 34.7 g/dl (31.0-36.0); Mean Corpuscular Hemoglobin 30.8 pg (27.0-33.0); Mean Corpuscular Volume 88.6 fL (80-98); Mean Platelet Volume 8.7 fL (9.4-12.4); Monocytes Absolute Auto 0.8 X10*3/uL (0.1-1.2); Neutrophils Absolute Auto 5.5 X10*3/uL (2.0-8.3); Neutrophils Percent Auto 68.9 % (45-73); Platelet Count 310 X10*3/uL (160-400); Red Blood Count 4.91 X10*6/uL (4.60-5.80); Red Cell Distribution Width 14.1 % (11.0-16.0); White Blood Count 7.9 X10*3/uL (4.8-10.8)
[2021-01-10 17:13] LABS: Glucose Urine UA >=1000 MG/DL (NEG); Leukocyte Esterase Urine NEG (NEG); Nitrite Urine NEG (NEG); Specific Gravity - Urine <= 1.005 (1.005-1.025); Urine Blood NEG (NEG); Urine Ketones 5 MG/DL (NEG); Urine Protein NEG (NEG-TRACE)
[2021-01-10 17:17] LABS: Prothrombin Time 11.8 SEC (9.9-13.0)
[2021-01-10 17:20] LABS: Appearance Urine CLEAR; Color Urine STRAW
[2021-01-10 17:20] LABS: Lactic Acid 0.9 mmol/L (0.5-2.0)
[2021-01-10 17:27] LABS: Acetone, serum QL Negative (Negative)
[2021-01-10 17:34] LABS: Alanine Aminotransferase 14 U/L (0-40); Albumin Level 4.1 g/dL (3.5-5.0); Alkaline Phosphatase 81 U/L (39-117); Anion Gap 13 (12-20); Aspartate Amino Transferase 18 U/L (5-37); Bilirubin Total 0.3 mg/dL (0.0-1.0); Blood Urea Nitrogen 6 mg/dL (9-16); Carbon Dioxide 26 mmol/L (22-29); Chloride 93 mmol/L (96-108); Creatinine Clr Calc Pharmacy 101.4; Estimated Glomerular Filt Rate > 60; Glucose Random 184 mg/dL (60-115); Lipase 30 U/L (8-78); Magnesium 2.2 mg/dL (1.6-2.6); Potassium 4.2 mmol/L (3.3-5.1); Sodium 128 mmol/L (135-145); Total Protein 6.7 g/dL (6.5-8.0)
[2021-01-10 17:36] LABS: RBC Urine 0 /HPF (0); Squamous Epithelial Cell Urine TRACE /LPF; WBC Urine 0 /HPF (0-4)
[2021-01-10] MEDS: iohexoL 350 MG/ML 100 ML INFUS..BTL IV (18:30)
[2021-01-10 18:36] VITALS: BP 108/64; PULSE 86; RESP 20; TEMP 36.6; O2SAT 93
[2021-01-10] MEDS: Dicyclomine HCl 10 MG CAPSULE 20 MG PO (20:47)
== END 2021-01-10 20:56 | disposition home or self-care (01) ==
PROVIDERS: Student in an Organized Health Care Education/Training Program; Emergency Provider Internal Medicine
DX: R19.7 Diarrhea, unspecified (principal); R11.0 Nausea; G47.00 Insomnia, unspecified; E10.9 Type 1 diabetes mellitus without complications; I11.0 Hypertensive heart disease with heart failure; I50.30 Unspecified diastolic (congestive) heart failure; Z79.4 Long term (current) use of insulin; Z79.02 Long term (current) use of antithrombotics/antiplatelets; Z79.899 Other long term (current) drug therapy
CPT/HCPCS: 36415; 74177; 80053; 81001; 82009; 83605; 83690; 83735; 85025; 85610; 87040; 93005; 96360; 99283; 99284; Q9967

== ENCOUNTER 2021-02-04 14:43 | Emergency (ER) | payer OTHER, SELFPAY ==
--- NOTE | ~2021-02-04 | CT_ITS ---
EXAMINATION: NONCONTRAST HEAD CT NONCONTRAST CERVICAL SPINE CT INDICATION INFORMATION: Fall COMPARISON: 08/24/2019 TECHNIQUE: Separate noncontrast CT examinations of the head and cervical spine were performed. Coronal and sagittal images were created for each examination at the technologist workstation. This CT examination was performed using dose optimization techniques as appropriate, variously including the following: *Automated exposure control *Adjustment of mA and/or kV according to patient size (this includes techniques or standardized protocols for targeted exams where dose is matched to indication/reason for exam; i.e. extremities or head) *Use of iterative reconstruction technique DLP: 1580 mGy-cm FINDINGS: Head: There is no evidence of acute intracranial hemorrhage or territorial infarction. No abnormal mass effect or midline shift is seen. Garcia to white matter differentiation is well preserved. No extra-axial fluid collections are identified. No hydrocephalus. Proportional prominence of the ventricles and sulcal spaces is consistent with moderate volume loss. There is no abnormal attenuation within the brain parenchyma. No acute osseous or soft tissue abnormality. The mastoid air cells and visualized portions of the paranasal sinuses are well aerated. Cervical spine: There is anatomic alignment of the vertebral bodies and posterior elements. The atlantoaxial and atlantooccipital articulations are intact. Vertebral body heights and intervertebral disc spaces are maintained. There is mild facet arthropathy. No evidence of acute fracture. No prevertebral soft tissue swelling. Visualized portions of the lung apices are unremarkable. The thyroid gland is unremarkable. CT/CT head/brain wo con IMPRESSION: 1. No acute intracranial findings. 2. No acute fracture or malalignment of the cervical spine.
--- NOTE | ~2021-02-04 | XR_ITS ---
EXAMINATION: XR CHEST CLINICAL INFORMATION: SOB COMPARISON: None TECHNIQUE: 2 views of the chest were obtained. FINDINGS: The lungs are well-expanded and clear of acute process. The heart size and pulmonary vascularity is normal. No gross bony abnormality seen. There is a right shoulder prosthesis in place. XR/XR chest 2V IMPRESSION: Unremarkable chest exam.
--- NOTE | ~2021-02-04 | CT_ITS ---
EXAMINATION: NONCONTRAST HEAD CT NONCONTRAST CERVICAL SPINE CT INDICATION INFORMATION: Fall COMPARISON: 08/24/2019 TECHNIQUE: Separate noncontrast CT examinations of the head and cervical spine were performed. Coronal and sagittal images were created for each examination at the technologist workstation. This CT examination was performed using dose optimization techniques as appropriate, variously including the following: *Automated exposure control *Adjustment of mA and/or kV according to patient size (this includes techniques or standardized protocols for targeted exams where dose is matched to indication/reason for exam; i.e. extremities or head) *Use of iterative reconstruction technique DLP: 1580 mGy-cm FINDINGS: Head: There is no evidence of acute intracranial hemorrhage or territorial infarction. No abnormal mass effect or midline shift is seen. Garcia to white matter differentiation is well preserved. No extra-axial fluid collections are identified. No hydrocephalus. Proportional prominence of the ventricles and sulcal spaces is consistent with moderate volume loss. There is no abnormal attenuation within the brain parenchyma. No acute osseous or soft tissue abnormality. The mastoid air cells and visualized portions of the paranasal sinuses are well aerated. Cervical spine: There is anatomic alignment of the vertebral bodies and posterior elements. The atlantoaxial and atlantooccipital articulations are intact. Vertebral body heights and intervertebral disc spaces are maintained. There is mild facet arthropathy. No evidence of acute fracture. No prevertebral soft tissue swelling. Visualized portions of the lung apices are unremarkable. The thyroid gland is unremarkable. CT/CT cervical spine wo con IMPRESSION: 1. No acute intracranial findings. 2. No acute fracture or malalignment of the cervical spine.
--- NOTE | 2021-02-04 15:00 | ED.GENADULT ---
HPI - General Adult General Chief complaint: General Medical Stated complaint: FATIGUE W/SOB AND NAUSEA Time Seen by Provider: 02/04/21 14:54 Source: patient and EMS Mode of arrival: EMS Limitations: no limitations History of Present Illness HPI narrative: 65 y/o male with history of COPD, DM on insulin, HFpEF, HTN, HLD, aortic stenosis, history of alcohol abuse and withdrawal, and recent admission for acute diverticulitis who presents to the ED from home via EMS with generalized weakness and 4 falls at home over the last 2 days. He reports his legs giving out of him because he is so weak and he has fallen 2 times today, landing on his elbows. He did not hit his head or lose consciousness. He denies any injuries from the fall. He has no abdominal pain, vomiting or diarrhea. He is nauseated. He reports congested cough, body aches, headache and chills. He is vaccinated against COVID and has no known sick contacts. He lives home alone. He denies drug or alcohol use. MD complaint: generalized weakness and multiple falls Onset (ago): day(s) (4) Radiation: non-radiation Severity: moderate Relieving factors: none Exacerbating factors: movement Associated symptoms: cough, headaches, loss of appetite, malaise, nausea/vomiting and weakness Treatments prior to arrival: none Related Data Home Medications Medication Instructions Recorded Confirmed albuterol sulfate 1 amp INHALATION QID 12/29/20 02/04/21 albuterol sulfate 90 mcg/actuation 2 puff INHALATION QID PRN 12/29/20 02/04/21 aerosol inhaler blood sugar diagnostic (FreeStyle 12/29/20 02/04/21 Lite Strips) empagliflozin 10 mg tablet 1 tab PO QAM 12/29/20 02/04/21 (Jardiance) folic acid 1 mg tablet 1 tab PO QPM 12/29/20 02/04/21 gabapentin 300 mg capsule 2 cap PO TID 12/29/20 02/04/21 insulin aspart U-100 100 unit/mL See Protocol SUBCUT BIDAC 12/29/20 02/04/21 subcutaneous solution (Novolog U-100 Insulin aspart) lisinopril 10 mg tablet 1 tab PO QAM 12/29/20 02/04/21 multivitamin 1 tab PO QAM 12/29/20 02/04/21 omega-3 fatty acids-fish oil 340 1 cap PO QAM 12/29/20 02/04/21 mg-1,000 mg capsule (Fish Oil) simvastatin 20 mg tablet 1 tab PO BEDTIME 12/29/20 02/04/21 thiamine HCl (vitamin B1) 100 mg 1 tab PO BEDTIME 12/29/20 02/04/21 tablet aspirin 81 mg tablet,delayed 1 tab PO BEDTIME 02/04/21 02/04/21 release buspirone 5 mg tablet 5 mg PO BID 02/04/21 02/04/21 insulin glargine 100 unit/mL 45 unit SUBCUT BEDTIME 02/04/21 02/04/21 subcutaneous solution (Lantus U-100 Insulin) Previous Rx's Medication Instructions Recorded omeprazole 20 mg capsule,delayed 1 cap PO BID #0 cap 01/03/21 release loperamide 2 mg capsule (Imodium 2 mg PO Q6H PRN #10 cap 01/10/21 A-D) lorazepam 1 mg tablet (Ativan) 1 mg PO BEDTIME PRN #7 tab 01/10/21 Allergies Allergy/AdvReac Type Severity Reaction Status Date / Time ENVIRONMENTAL Allergy Mild SNEEZING, Uncoded 09/26/20 17:14 WATERY EYES Review of Systems Review of Systems: Constitutional: No Fever, + Chills ENT/Mouth: No sore throat, No Rhinorrhea, No Swallowing Difficulty Eyes: No Eye Pain, No Swelling, No Redness Cardiovascular: No Chest Pain, No SOB, No Orthopnea, No Edema Respiratory: + Cough, No Sputum, No Wheezing, No dyspnea Gastrointestinal: + Nausea, No Vomiting, No Diarrhea, No abdominal Pain, No Hematochezia, No Melena Genitourinary: No Dysuria, No Urinary Frequency, No Hematuria Musculoskeletal: No joint pain, No Myalgias Skin: No Skin Lesions, No rash Neuro: + Weakness, No Numbness, No Dizziness, + Headache Psych: No Anxiety/Panic, No Depression Heme/Lymph: No Bruising, No Lymphadenopathy Endocrine: No Polyuria, No Polydipsia PMFSH Past Medical History Medical History LAUREN (acute kidney injury) Alcohol abuse COPD (chronic obstructive pulmonary disease) Diabetes mellitus type 1 Diastolic dysfunction Diastolic heart failure HLD (hyperlipidemia) Hypertension Nonrheumatic aortic (valve) stenosis Obesity Family History Family History Father Diabetes Mother Diabetes Social History Social History Household Members: None Housing: Apartment Do you presently have visiting nurse or other home services: Yes Alcohol intake: never Patient Tobacco Use Status: Current everyday Tobacco user Tobacco use type: Cigar Second Hand Smoke Exposure: No Use of substances other than those prescribed or required for medical reasons: No Advance Directives: No Advance Directives Information Provided: No service: No Current occupational status: disabled Physical Exam Vital Signs: Vital Signs: Last Vital Signs Temp 98.5 F 02/04/21 15:02 Pulse 85 02/04/21 17:40 Resp 16 02/04/21 17:40 BP 104/68 02/04/21 17:40 Pulse Ox 95 02/04/21 17:40 Body Mass Index 34.9 Appearance: Alert. Oriented X3. No acute distress. Eyes: Pupils equal, round and reactive to light. ENT: Pharynx normal. Neck: Normal inspection. Neck supple. CVS: Normal heart rate and rhythm. Pulses normal. Respiratory: No respiratory distress. Breath sounds normal. Congested cough. Abdomen: Soft and nontender. +BS x4 Skin: Skin warm and dry. Normal skin color. Normal skin turgor. No rashes. Extremities: No lower extremity edema. Pelvis stable. No trauamtic injuries noted Neuro: Oriented X 3. No motor deficit. No sensory deficit. Nonfocal Course Course Course Narrative: 65 y/o male presenting with generalized weakness and multiple falls at home. Hx ETOH abuse, hx recent diverticulitis but he has no further abdominal pain or diarrhea. He is congested and coughing. Will check COVID swab, CXR, labs EKG. He denies hitting his head and is refusing CT head. Anticipate he will require PT and case management for placement. Reevaluation(s) Reevaluation #1: Labs still pending. Signed out to Benja who will assume care. Medical Decision Making Lab Data Result diagrams: 02/04/21 16:44 02/04/21 16:44 ECG Data Attestation: I personally reviewed and interpreted this ECG as follows: Interpretation: normal sinus rhythm, HR 82bpm, normal LA interval, no ST segments or elevations Discharge Plan Discharge Clinical Impression: Multiple falls Prescriptions: No [facility] multivitamin Tablet 1 tab PO QAM RF: 0 albuterol sulfate 2.5 mg /3 mL (0.083 %) solution for nebulization 1 amp inhalation QID RF: 0 thiamine HCl (vitamin B1) 100 mg tablet 1 tab PO BEDTIME RF: 0 (DME) FreeStyle Lite Strips Strip MISCELLANEOUS QID RF: 0 insulin aspart U-100 [Novolog U-100 Insulin aspart] 100 unit/mL solution See Protocol sliding scale dose subcut BIDAC RF: 0 simvastatin 20 mg tablet 1 tab PO BEDTIME RF: 0 lisinopril 10 mg tablet 1 tab PO QAM RF: 0 gabapentin 300 mg capsule 2 cap PO TID RF: 0 folic acid 1 mg tablet 1 tab PO QPM RF: 0 albuterol sulfate 90 mcg/actuation HFA aerosol inhaler 2 puff inhalation QID PRN (Reason: Wheezing) RF: 0 Fish Oil 340-1,000 mg capsule 1 cap PO QAM RF: 0 Jardiance 10 mg tablet 1 tab PO QAM RF: 0 omeprazole 20 mg capsule,delayed release(DR/EC) 1 cap PO BID Qty: 0 RF: 0 loperamide [Imodium A-D] 2 mg capsule 2 mg PO Q6H PRN (Reason: loose stool) Qty: 10 RF: 0 lorazepam [Ativan] 1 mg tablet 1 mg PO BEDTIME PRN (Reason: sleep) Qty: 7 RF: 0 buspirone 5 mg tablet 5 mg PO BID RF: 0 aspirin 81 mg tablet,delayed release (DR/EC) 1 tab PO BEDTIME RF: 0 Lantus U-100 Insulin 100 unit/mL solution 45 unit subcut BEDTIME RF: 0
[2021-02-04 15:02] VITALS: BP 123/78; BP 136/76; PULSE 93; PULSE 96; RESP 19; TEMP 36.9; O2SAT 90; O2SAT 96; BMI 34.9
--- NOTE | 2021-02-04 15:25 | ECG_ITS ---
Test Reason : FALL Blood Pressure : / mmHG Vent. Rate : 082 BPM Atrial Rate : 082 BPM P-R Int : 162 ms QRS Dur : 080 ms QT Int : 368 ms P-R-T Axes : 069 028 085 degrees QTc Int : 429 ms Normal sinus rhythm Normal ECG When compared with ECG of 10-JAN-2021 19:07, No significant change was found Referred By: Emily Keller Electronically Signed By:MIKA FREIRE
[2021-02-04] MEDS: ondansetron HCL 4 MG/2 ML VIAL IVPUSH ×2 (16:54→23:01)
[2021-02-04] MEDS: 0.9 % Sodium Chloride 1,000 ML 999 ML IVCONT (16:55)
[2021-02-04 17:40] VITALS: BP 104/68; PULSE 85; RESP 16; O2SAT 95
[2021-02-04] MEDS: Acetaminophen 325 MG TABLET 975 MG PO (17:43)
--- NOTE | 2021-02-04 17:45 | PHA.MEDREC ---
Pharmacy Consult ? Medication Reconciliation Pharmacy has completed the medication reconciliation. Patient was to nausea to complete the conversation. I was able to verify all his PRN medications. Reports that he use med[facility] at [facility] therefore I was able to use the external history for the rest of his medications. April Agosto, PharmD
[2021-02-04 19:52] LABS: MANUAL DIFF FLAG NO
[2021-02-04 19:53] LABS: Basophils Absolute Auto 0.1 X10*3/uL (0.0-0.2); Basophils Percent Auto 0.9 % (0-2); Eosinophils Absolute Auto 0.4 X10*3/uL (0.0-0.4); Hematocrit 46.3 % (42-52); Hemoglobin 15.9 g/dl (14.0-18.0); Imm Gran Abs Auto 0.03 X10*3/uL (0.00-0.03); Imm Gran Pct Auto 0.4 % (0.0-0.4); Lymphocytes Percent Auto 14.8 % (20-40); Mean Corpuscular HGB Conc 34.3 g/dl (31.0-36.0); Mean Corpuscular Hemoglobin 31.2 pg (27.0-33.0); Mean Corpuscular Volume 90.8 fL (80-98); Mean Platelet Volume 8.2 fL (9.4-12.4); Monocytes Absolute Auto 0.7 X10*3/uL (0.1-1.2); Monocytes Percent Auto 9.6 % (2-11); Neutrophils Absolute Auto 4.8 X10*3/uL (2.0-8.3); Neutrophils Percent Auto 68.3 % (45-73); Platelet Count 274 X10*3/uL (160-400); Red Cell Distribution Width 13.6 % (11.0-16.0)
[2021-02-04 20:01] LABS: Ammonia 25 umol/L (13-55)
[2021-02-04 20:04] LABS: Lactic Acid 1.1 mmol/L (0.5-2.0)
[2021-02-04 20:08] LABS: Ethanol < 10 mg/dL
[2021-02-04 20:08] LABS: COVID-19 Test Negative (Negative)
[2021-02-04 20:13] LABS: Alanine Aminotransferase 23 U/L (0-40); Alkaline Phosphatase 80 U/L (39-117); Anion Gap 17 (12-20); Aspartate Amino Transferase 21 U/L (5-37); B Type Natriuretic Peptide 40 pg/mL (<100); Bilirubin Direct 0.2 mg/dL (0.0-0.5); Bilirubin Total 0.4 mg/dL (0.0-1.0); Blood Urea Nitrogen 14 mg/dL (9-16); Carbon Dioxide 24 mmol/L (22-29); Chloride 99 mmol/L (96-108); Creatinine Clr Calc Pharmacy 97.9; Estimated Glomerular Filt Rate > 60; Glucose Random 93 mg/dL (60-115); Magnesium 1.9 mg/dL (1.6-2.6); Potassium 4.6 mmol/L (3.3-5.1); Sodium 135 mmol/L (135-145); Total Protein 6.7 g/dL (6.5-8.0)
--- NOTE | 2021-02-04 20:48 | PC.NURSE ---
pt feeling nausea, provider made aware.
[2021-02-04 21:09] VITALS: BP 90/57; PULSE 84; RESP 18; TEMP 37.1; O2SAT 95
[2021-02-04 21:22] LABS: Appearance Urine CLEAR; Color Urine YELLOW; Glucose Urine UA >=1000 MG/DL (NEG); Leukocyte Esterase Urine NEG (NEG); Nitrite Urine NEG (NEG); Specific Gravity - Urine 1.015 (1.005-1.025); Urine Blood NEG (NEG); Urine Ketones 15 MG/DL (NEG); Urine Protein NEG (NEG-TRACE)
[2021-02-04 21:32] LABS: WBC Urine 0-2 /HPF (0-4)
[2021-02-04 21:33] LABS: RBC Urine 0-2 /HPF (0); Squamous Epithelial Cell Urine TRACE /LPF
[2021-02-04 21:37] LABS: Amphetamine Screen Urine Not Detected (Not Detect); Barbiturates, Urine Not Detected (Not Detect); Benzodiazepines Screen Urine Not Detected (Not Detect); Cannabinoid Screen Urine Not Detected (Not Detect); Cocaine Screen Urine Not Detected (Not Detect); Fentanyl, urine Not Detected (Not Detect); Opiate Screen Urine Not Detected (Not Detect); Phencyclidine Screen Urine Not Detected (Not Detect)
[2021-02-04] MEDS: oxyCODONE HCl Immed Release 5 MG TABLET PO (21:47)
[2021-02-04 22:48] VITALS: BP 114/75; PULSE 75; RESP 16
[2021-02-04 22:54] VITALS: BP 114/48; PULSE 77; RESP 16
[2021-02-04] MEDS: LORazepam 2 MG/ML VIAL IVPUSH (23:16)
--- NOTE | 2021-02-04 23:39 | PC.NURSE ---
pt was given ativan and then taken to ct. pt melisa well. pt has bruising at mult stages due to falling alot at home. pt stopped drinking after drinking 30 days straight. stop smoking and no longer has his evening snack before bed.
[2021-02-04 23:54] VITALS: BP 105/62; PULSE 84; RESP 16; TEMP 37; O2SAT 92
[2021-02-05] VITALS (7 sets, daily range): BP systolic 102–135; BP diastolic 60–75; PULSE 80–94; RESP 14–20; TEMP 36.4–37; O2SAT 94–95
--- NOTE | 2021-02-05 02:29 | PC.NURSE ---
pt asked for pain medication and was offered motrin and refused and is now sleeping.
--- NOTE | 2021-02-05 07:30 | PC.NURSE ---
pt seen by physical therapy. pt aware of plan of care.
--- NOTE | 2021-02-05 09:47 | MHC.CM.ED ---
Received case management consult overnight. Patient came to the ER due to fatigue and SOB. Work up essentially negative. Physical therapy eval completed. Short term rehab is recommended. Met with patient in regards to discharge planning. Patient lives alone, ambulates independently and receives meals on wheels. Per last discharge, patient is supposed to be active with [facility]. Per patient, he is not active with them. PCP verified. Copy of HCP verified to be on file. List of facilities contracted with patient's insurance provided from [employer]. Patient has been to [facility] in the past but is requesting referral to [facility]. Referral made via [email or web address]. Continue to monitor for d/c needs.
[2021-02-05] MEDS: Ondansetron ODT 4 MG TAB.RAPDIS TRANSLINGU ×2 (10:15→13:21)
[2021-02-05] MEDS: oxyCODONE HCl Immed Release 5 MG TABLET PO ×2 (10:18→17:31)
--- NOTE | 2021-02-05 10:50 | MHC.CM.ED ---
[facility] not have a male bed to offer. Met with patient in regards to discharge planning. Patient does not want to return to [facility] because he was in a room with 3 other patients. Patient is requesting a private room or even semi-private. Patient agreeable to referral being broadcasted to see if anyone can offer a private room. Continue to monitor for d/c needs.
--- NOTE | 2021-02-05 12:47 | MHC.CM.ED ---
Fredy Mckinney. [facility] and [facility] are able to offer a bed. Patient accepting bed at [facility]. [facility] is in the process of obtaining insurance auth. Continue to monitor for d/c needs.
--- NOTE | 2021-02-05 13:20 | PC.NURSE ---
pt c/o slight nausea. to be med x 1 with zofran 4mg sl.
[2021-02-05] MEDS: LORazepam 1 MG TABLET PO ×2 (14:29→16:37)
[2021-02-05] MEDS: Multivitamin TABLET 1 TAB PO (14:29)
--- NOTE | 2021-02-05 14:29 | MHC.CM.ED ---
Insurance auth has been obtained by [facility]. Patient will eat dinner and leave ER at 530pm. [facility] booked. Patient, Nicolasa ROSENBERG and Dr Sandoval aware. Continue to monitor for d/c needs.
[2021-02-05 16:13] LABS: Glucose, Whole Blood 203 mg/dL (60-115)
--- NOTE | 2021-02-05 16:38 | PC.NURSE ---
[facility] MULTIPLE REQUETS. RN MET NEEDS
--- NOTE | 2021-02-12 11:27 | MHC.CM.ED ---
Received notification from DARLINE Fraser, that patient had blood cultures come back positive. Patient was d/c'd to [facility]. T/w called [facility] to obtain a fax number. Positive blood cultures faxed to [phone]. DARLINE Fraser aware.
== END 2021-02-05 17:38 | disposition skilled nursing facility (03) ==
PROVIDERS: Physician Assistant; Emergency Provider Emergency Medicine Emergency Medical Services; PCP Internal Medicine Geriatric Medicine
DX: M79.10 Myalgia, unspecified site (principal); R53.83 Other fatigue; R51.9 Headache, unspecified; I25.10 Atherosclerotic heart disease of native coronary artery without angina pectoris; R06.02 Shortness of breath; E11.9 Type 2 diabetes mellitus without complications; Z91.81 History of falling; Z79.899 Other long term (current) drug therapy; Z20.822 Contact with and (suspected) exposure to COVID-19; Z79.4 Long term (current) use of insulin; F17.200 Nicotine dependence, unspecified, uncomplicated; Z71.6 Tobacco abuse counseling
CPT/HCPCS: 36415; 70450; 71046; 72125; 80048; 80076; 80307; 81001; 82077; 82140; 82550; 82947; 83605; 83735; 83880; 85025; 87040; 87147; 87205; 87635; 93005; 96361; 96374; 96375; 96376; 97162; 99285; J2060; J2405

== ENCOUNTER 2021-05-12 09:12 | Inpatient (IN) | payer OTHER, SELFPAY ==
[2021-05-12] VITALS (9 sets, daily range): BP systolic 107–150; BP diastolic 41–88; PULSE 88–105; RESP 16–28; TEMP 36.3–37; O2SAT 96–99; BMI 39.8
--- NOTE | ~2021-05-12 | CT_ITS ---
EXAMINATION: CT BRAIN AND CT CERVICAL SPINE WITHOUT CONTRAST. CLINICAL INFORMATION: Trauma, fall.. COMPARISON: None TECHNIQUE: 5 mm thin axial and reformatted 2 mm thin sagittal and coronal images of brain were obtained without contrast. Axial 3 mm thin and reformatted 2 mm thin sagittal and coronal images of cervical spine were obtained. DLP 2172. FINDINGS: Brain: There is no acute intra-axial, extra-axial bleed, masses or midline shift. The husain to white matter difference is maintained normal. No acute infarction in evolution seen. There is no edema. Bone windows reveal no calvarial abnormality. There is no scalp soft tissue abnormality. There is patient motion simulating frontal fractures. The paranasal sinuses and mastoid air cells are well-aerated. Cervical spine: There is mild straightening of cervical lordosis. The vertebral heights, alignment and disc heights are normal. There is no visible acute fracture, dislocation or subluxation seen. The craniovertebral junction and the C1-C2 alignment is normal. The thyroid lobes, submandibular and parotid glands are symmetric and normal. No visible acute fracture, dislocation or subluxation seen. There aren't motion artifact seen throughout the spine and the left TM joint. The lung apices are clear. The AILYN is clear as well. CT/CT cervical spine wo con IMPRESSION: No acute intracranial process seen. No acute fracture, dislocation or subluxation in cervical spine. There is patient motion artifacts seen on CT brain and CT cervical spine.
--- NOTE | ~2021-05-12 | CT_ITS ---
EXAMINATION: CT BRAIN AND CT CERVICAL SPINE WITHOUT CONTRAST. CLINICAL INFORMATION: Trauma, fall.. COMPARISON: None TECHNIQUE: 5 mm thin axial and reformatted 2 mm thin sagittal and coronal images of brain were obtained without contrast. Axial 3 mm thin and reformatted 2 mm thin sagittal and coronal images of cervical spine were obtained. DLP 2172. FINDINGS: Brain: There is no acute intra-axial, extra-axial bleed, masses or midline shift. The husain to white matter difference is maintained normal. No acute infarction in evolution seen. There is no edema. Bone windows reveal no calvarial abnormality. There is no scalp soft tissue abnormality. There is patient motion simulating frontal fractures. The paranasal sinuses and mastoid air cells are well-aerated. Cervical spine: There is mild straightening of cervical lordosis. The vertebral heights, alignment and disc heights are normal. There is no visible acute fracture, dislocation or subluxation seen. The craniovertebral junction and the C1-C2 alignment is normal. The thyroid lobes, submandibular and parotid glands are symmetric and normal. No visible acute fracture, dislocation or subluxation seen. There aren't motion artifact seen throughout the spine and the left TM joint. The lung apices are clear. The AILYN is clear as well. CT/CT head/brain wo con IMPRESSION: No acute intracranial process seen. No acute fracture, dislocation or subluxation in cervical spine. There is patient motion artifacts seen on CT brain and CT cervical spine.
--- NOTE | ~2021-05-12 | XR_ITS ---
EXAMINATION: XR CHEST CLINICAL INFORMATION: Central venous line placement COMPARISON: 05/12/2021 TECHNIQUE: Frontal view of the chest was obtained. FINDINGS: Since the study earlier today a left-sided presumed subclavian line has been placed with its tip in the SVC. No pneumothorax is seen. No significant abnormality is noted involving the heart, lungs, mediastinum, bony thorax or soft tissues. XR/XR chest 1V IMPRESSION: Successful placement of left-sided central line without complication.
--- NOTE | ~2021-05-12 | XR_ITS ---
EXAMINATION: XR CHEST CLINICAL INFORMATION: Chest pain COMPARISON: Chest radiographs 02/04/2021, 11/19/2020 TECHNIQUE: Portable upright AP view of the chest was obtained. FINDINGS: Lungs are clear. There is no pneumothorax or pleural reaction. No airspace consolidation or effusion. The heart is normal in size. The vascularity is normal. The hilar and mediastinal contours and visualized bony structures are similar to prior exams. XR/XR chest 1V IMPRESSION: Unremarkable examination.
--- NOTE | 2021-05-12 09:28 | ECG_ITS ---
Test Reason : FALL Blood Pressure : / mmHG Vent. Rate : 090 BPM Atrial Rate : 090 BPM P-R Int : 164 ms QRS Dur : 078 ms QT Int : 344 ms P-R-T Axes : 075 011 091 degrees QTc Int : 420 ms Normal sinus rhythm Nonspecific ST and T wave abnormality Abnormal ECG When compared with ECG of 04-FEB-2021 18:26, No significant change was found Referred By: Shahram Lopez Electronically Signed By:HERMAN TONEY MD
--- NOTE | 2021-05-12 09:31 | ED_ITS ---
HPI - General Adult General Chief complaint: Fall Stated complaint: AMS,FOUND ON FLOOR Time Seen by Provider: 05/12/21 09:28 Source: EMS Mode of arrival: EMS History of Present Illness HPI narrative: This is 65 years old patient with alcohol abuse history was brought in by the ambulance because was found in the floor by a friend, the kamilah ent does not know why he ended up in the floor he denies any chest pain shortness of breath Onset (ago): hour(s) (2) Severity: moderate Relieving factors: none Exacerbating factors: none Associated symptoms: denies other symptoms Related Data Home Medications Medication Instructions Recorded Confirmed albuterol sulfate 1 amp INHALATION QID 12/29/20 05/12/21 albuterol sulfate 90 mcg/actuation 2 puff INHALATION QID PRN 12/29/20 05/12/21 aerosol inhaler blood sugar diagnostic (FreeStyle 12/29/20 02/04/21 Lite Strips) folic acid 1 mg tablet 1 tab PO QPM 12/29/20 05/12/21 gabapentin 300 mg capsule 2 cap PO TID 12/29/20 05/12/21 insulin aspart U-100 100 unit/mL 15 unit SUBCUT TIDAC 12/29/20 05/12/21 subcutaneous solution (Novolog U-100 Insulin aspart) lisinopril 10 mg tablet 1 tab PO QAM 12/29/20 05/12/21 multivitamin 1 tab PO QAM 12/29/20 05/12/21 omega-3 fatty acids-fish oil 340 1 cap PO QAM 12/29/20 05/12/21 mg-1,000 mg capsule (Fish Oil) simvastatin 20 mg tablet 1 tab PO BEDTIME 12/29/20 05/12/21 thiamine HCl (vitamin B1) 100 mg 1 tab PO BEDTIME 12/29/20 05/12/21 tablet aspirin 81 mg tablet,delayed 1 tab PO BEDTIME 02/04/21 05/12/21 release buspirone 5 mg tablet 5 mg PO BID 02/04/21 05/12/21 insulin glargine 100 unit/mL 45 unit SUBCUT BEDTIME 02/04/21 05/12/21 subcutaneous solution (Lantus U-100 Insulin) celecoxib 50 mg capsule 1 cap PO BID 05/12/21 05/12/21 ramelteon 8 mg tablet 1 tab PO BEDTIME 05/12/21 05/12/21 tamsulosin 0.4 mg capsule 1 cap PO DAILY 05/12/21 05/12/21 Previous Rx's Medication Instructions Recorded omeprazole 20 mg capsule,delayed 1 cap PO BID #0 cap 01/03/21 release oxycodone 5 mg tablet 5 mg PO Q4H PRN #10 tab 02/05/21 Allergies Allergy/AdvReac Type Severity Reaction Status Date / Time ENVIRONMENTAL Allergy Mild SNEEZING, Uncoded 09/26/20 17:14 WATERY EYES Review of Systems Review of Systems: Yes all other systems are reviewed and are negative ENT: Reports system reviewed and no additional complaints, except as documented Cardiovascular: Cardiovascular: Reports no additional cardiovascular complaints Respiratory: Respiratory: Reports no additional respiratory complaints Gastrointestinal: Gastrointestinal: Denies fecal incontinence, Denies diarrhea, Denies loose stools, Denies vomiting and Denies hematemesis Neurologic: Denies Abnormal speech present and Denies seizure-like activity PMFSH Past Medical History Medical History LAUREN (acute kidney injury) Alcohol abuse COPD (chronic obstructive pulmonary disease) Diabetes mellitus type 1 Diastolic dysfunction Diastolic heart failure HLD (hyperlipidemia) Hypertension Nonrheumatic aortic (valve) stenosis Obesity Family History Family History Father Diabetes Mother Diabetes Social History Social History Household Members: None Housing: Apartment Do you presently have visiting nurse or other home services: Yes Alcohol intake: never Patient Tobacco Use Status: Current everyday Tobacco user Tobacco use type: Cigar Second Hand Smoke Exposure: No Advance Directives: Yes Advance Directives on File: Yes Advance Directives Date on File: 10/11/20 service: No Current occupational status: disabled Physical Exam Vital Signs: Vital Signs: Last Vital Signs Temp 98.4 F 05/12/21 09:21 Pulse 105 H 05/12/21 14:00 Resp 24 H 05/12/21 14:00 BP 150/71 H 05/12/21 12:23 Pulse Ox 97 05/12/21 14:00 BMI result Body Mass Index 39.8 Const: General: cooperative and comfortable Nutritional Appearance: average body habitus HENMT: Head: Yes normal to inspection General nose exam: Normal external nose present Face and sinus: Yes normal facial exam Mouth: Normal oral and palatal mucosa present Throat: Yes posterior oropharynx normal Neck: Neck: Yes normal visual inspection and Yes full ROM Thyroid: Thyroid normal Chest: Chest palpation & inspection: normal inspection of the chest and normal palpation of entire chest wall Resp: Effort & Inspection: normal respiratory effort Cardio: Jugular venous distension: no JVD Rate: regular rate Rhythm: regular rhythm GI: Inspection: Yes normal to inspection Palpation (GI): Soft to palpation, not firm, nontender, no guarding and not rigid Percussion: Yes normal to percussion : General: Yes no CVA tenderness Back/Spine/Pelvis: Back: no CVA tenderness Neuro: Speech: No Abnormal speech present Course Reevaluation(s) Reevaluation #1: LAb just returned at this time we were called that NA was 117 ,was a very difficult [employer] and lab unable to get lab,Lab was obtained by me under US cannulating left basilic vein Reevaluation #2: spoke with ICU team Dr Miguel accepted,no renal consult per Dr Miguel Procedures EJ/Peripheral Line Arm L: Time Out Performed: Yes Skin Cleansed in Sterile Fashion: Yes Size (gauge): 20 IV Secured and Dressing Applied: Yes Patient Tolerated Procedure: well Additional Comments: under US guided cannulated left basilic vein with 20 nico intraican catheter 1 3/4 inch catheter Medical Decision Making Lab Data Result diagrams: 05/12/21 11:32 05/12/21 12:39 Labs: Lab Results 05/12/21 05/12/21 05/12/21 Range/Units 11:32 11:32 12:28 WBC 12.2 H (4.8-10.8) X10*3/uL RBC 4.71 (4.60-5.80) X10*6/uL Hgb 14.8 (14.0-18.0) g/dl Hct 40.1 L (42.0-52.0) % MCV 85.1 (80.0-98.0) fL MCH 31.4 (27.0-33.0) pg MCHC 36.9 H (31.0-36.0) g/dl RDW 14.4 (11.0-16.0) % Plt Count 239 (160-400) X10*3/uL MPV 7.9 L (9.4-12.4) fL Immature Gran % (Auto) 0.4 (0.0-0.4) % Neut % (Auto) 85.2 H (45-73) % Lymph % (Auto) 7.0 L (20-40) % [place] % (Auto) 7.2 (2-11) % Eos % (Auto) 0.0 (0-4) % Baso % (Auto) 0.2 (0-2) % Lymph # (Auto) 0.9 L (1.2-4.9) X10*3/uL [place] # (Auto) 0.9 (0.1-1.2) X10*3/uL Eos # (Auto) 0.0 (0.0-0.4) X10*3/uL Baso # (Auto) 0.0 (0.0-0.2) X10*3/uL Abs Immat Gran (auto) 0.05 H (0.00-0.03) X10*3/uL Absolute Neuts (auto) 10.4 H (2.0-8.3) x10*3/uL Absolute Nucleated RBC 0.000 (0.0-0.012) X10*3/uL Nucleated RBC % (auto) 0.0 (0.0-0.2) /100WBC Sodium (135-145) mmol/L Potassium (3.3-5.1) mmol/L Chloride (96-108) mmol/L Carbon Dioxide (22-29) mmol/L Anion Gap (12-20) BUN (9-16) mg/dL Creatinine (0.5-1.4) mg/dL Estim Creat Clear Calc Estimated GFR POC Glucose 140 H (60-115) mg/dL Random Glucose (60-115) mg/dL Osmolality (281-305) mosm/kg Calcium (8.4-10.2) mg/dL Magnesium (1.6-2.6) mg/dL Total Bilirubin (0.0-1.0) mg/dL AST (5-37) U/L ALT (0-40) U/L Alkaline Phosphatase (39-117) U/L Total Creatine Kinase (38-174) U/L Troponin I High Sens 26.0 (<3.5-35.0) ng/L Total Protein (6.5-8.0) g/dL Albumin (3.5-5.0) g/dL Ethyl Alcohol mg/dL COVID-19 (ELIER) (Negative) COVID-19 Clin Com 05/12/21 05/12/21 05/12/21 Range/Units 12:39 12:39 12:41 WBC (4.8-10.8) X10*3/uL RBC (4.60-5.80) X10*6/uL Hgb (14.0-18.0) g/dl Hct (42.0-52.0) % MCV (80.0-98.0) fL MCH (27.0-33.0) pg MCHC (31.0-36.0) g/dl RDW (11.0-16.0) % Plt Count (160-400) X10*3/uL MPV (9.4-12.4) fL Immature Gran % (Auto) (0.0-0.4) % Neut % (Auto) (45-73) % Lymph % (Auto) (20-40) % [place] % (Auto) (2-11) % Eos % (Auto) (0-4) % Baso % (Auto) (0-2) % Lymph # (Auto) (1.2-4.9) X10*3/uL [place] # (Auto) (0.1-1.2) X10*3/uL Eos # (Auto) (0.0-0.4) X10*3/uL Baso # (Auto) (0.0-0.2) X10*3/uL Abs Immat Gran (auto) (0.00-0.03) X10*3/uL Absolute Neuts (auto) (2.0-8.3) x10*3/uL Absolute Nucleated RBC (0.0-0.012) X10*3/uL Nucleated RBC % (auto) (0.0-0.2) /100WBC Sodium 117 L* (135-145) mmol/L Potassium 4.8 (3.3-5.1) mmol/L Chloride 81 L (96-108) mmol/L Carbon Dioxide 15 L (22-29) mmol/L Anion Gap 26 H (12-20) BUN 21 H (9-16) mg/dL Creatinine 1.45 H (0.5-1.4) mg/dL Estim Creat Clear Calc 53.8 Estimated GFR 49 POC Glucose (60-115) mg/dL Random Glucose 138 H D (60-115) mg/dL Osmolality 286 (281-305) mosm/kg Calcium 9.6 D (8.4-10.2) mg/dL Magnesium 1.6 (1.6-2.6) mg/dL Total Bilirubin 0.9 (0.0-1.0) mg/dL AST 85 H (5-37) U/L ALT 42 H (0-40) U/L Alkaline Phosphatase 102 D (39-117) U/L Total Creatine Kinase 1256 H D (38-174) U/L Troponin I High Sens (<3.5-35.0) ng/L Total Protein 7.5 (6.5-8.0) g/dL Albumin 4.6 (3.5-5.0) g/dL Ethyl Alcohol 116 mg/dL COVID-19 (ELIER) (Negative) COVID-19 Clin Com 05/12/21 Range/Units 14:06 WBC (4.8-10.8) X10*3/uL RBC (4.60-5.80) X10*6/uL Hgb (14.0-18.0) g/dl Hct (42.0-52.0) % MCV (80.0-98.0) fL MCH (27.0-33.0) pg MCHC (31.0-36.0) g/dl RDW (11.0-16.0) % Plt Count (160-400) X10*3/uL MPV (9.4-12.4) fL Immature Gran % (Auto) (0.0-0.4) % Neut % (Auto) (45-73) % Lymph % (Auto) (20-40) % [place] % (Auto) (2-11) % Eos % (Auto) (0-4) % Baso % (Auto) (0-2) % Lymph # (Auto) (1.2-4.9) X10*3/uL [place] # (Auto) (0.1-1.2) X10*3/uL Eos # (Auto) (0.0-0.4) X10*3/uL Baso # (Auto) (0.0-0.2) X10*3/uL Abs Immat Gran (auto) (0.00-0.03) X10*3/uL Absolute Neuts (auto) (2.0-8.3) x10*3/uL Absolute Nucleated RBC (0.0-0.012) X10*3/uL Nucleated RBC % (auto) (0.0-0.2) /100WBC Sodium (135-145) mmol/L Potassium (3.3-5.1) mmol/L Chloride (96-108) mmol/L Carbon Dioxide (22-29) mmol/L Anion Gap (12-20) BUN (9-16) mg/dL Creatinine (0.5-1.4) mg/dL Estim Creat Clear Calc Estimated GFR POC Glucose (60-115) mg/dL Random Glucose (60-115) mg/dL Osmolality (281-305) mosm/kg Calcium (8.4-10.2) mg/dL Magnesium (1.6-2.6) mg/dL Total Bilirubin (0.0-1.0) mg/dL AST (5-37) U/L ALT (0-40) U/L Alkaline Phosphatase (39-117) U/L Total Creatine Kinase (38-174) U/L Troponin I High Sens (<3.5-35.0) ng/L Total Protein (6.5-8.0) g/dL Albumin (3.5-5.0) g/dL Ethyl Alcohol mg/dL COVID-19 (ELIER) Negative (Negative) COVID-19 Clin Com See Note Imaging Data CT scan - head: Radiologist's impression: EXAMINATION: XR CHEST CLINICAL INFORMATION: Cough and fever COMPARISON: Chest 05/18/2019 TECHNIQUE: Frontal view of the chest was obtained. FINDINGS: No significant abnormality is noted involving the heart, lungs, mediastinum, bony thorax or soft tissues. XR/XR chest 1V IMPRESSION: Unremarkable chest examination. ? Dictated By: Melecio Galaviz MD Signed By: <Electronically signed by Melecio Galaviz MD in OV> 05/12/21 1241 ECG Data Attestation: I personally reviewed and interpreted this ECG as follows: Pacemaker model: NSR 90 st-t isoelectric no ischemia Critical Care Time Critical Care Time Critical Care Time: Yes Total Critical Care Time: 45 Attestation: taking care pt/speaking nurse,ICU staff Discharge Plan Discharge Clinical Impression: Acute hyponatremia, Metabolic acidosis, Rhabdomyolysis Patient Disposition: Admitted As Inpatient
[2021-05-12] MEDS: LORazepam 2 MG/ML VIAL 1 MG IVPUSH ×2 (10:36→11:48)
[2021-05-12] MEDS: Thiamine HCL 100 MG TABLET PO (10:36)
[2021-05-12] MEDS: ondansetron HCL 4 MG/2 ML VIAL IVPUSH (10:37)
[2021-05-12] MEDS: 0.9 % Sodium Chloride 1,000 ML 999 ML IVCONT (11:35)
[2021-05-12 11:37] LABS: MANUAL DIFF FLAG NO
[2021-05-12] MEDS: Ondansetron ODT 4 MG TAB.RAPDIS TRANSLINGU (11:37)
[2021-05-12 11:39] LABS: Basophils Percent Auto 0.2 % (0-2); Hematocrit 40.1 % (42.0-52.0); Hemoglobin 14.8 g/dl (14.0-18.0); Imm Gran Abs Auto 0.05 X10*3/uL (0.00-0.03); Imm Gran Pct Auto 0.4 % (0.0-0.4); Lymphocytes Absolute Auto 0.9 X10*3/uL (1.2-4.9); Mean Corpuscular HGB Conc 36.9 g/dl (31.0-36.0); Mean Corpuscular Hemoglobin 31.4 pg (27.0-33.0); Mean Corpuscular Volume 85.1 fL (80.0-98.0); Mean Platelet Volume 7.9 fL (9.4-12.4); Monocytes Absolute Auto 0.9 X10*3/uL (0.1-1.2); Monocytes Percent Auto 7.2 % (2-11); Neutrophils Absolute Auto 10.4 x10*3/uL (2.0-8.3); Neutrophils Percent Auto 85.2 % (45-73); Platelet Count 239 X10*3/uL (160-400); Red Blood Count 4.71 X10*6/uL (4.60-5.80); Red Cell Distribution Width 14.4 % (11.0-16.0); White Blood Count 12.2 X10*3/uL (4.8-10.8)
[2021-05-12] MEDS: Metoclopramide HCl 10 MG/2 ML VIAL IVPUSH (11:48)
[2021-05-12 12:43] LABS: Glucose, Whole Blood 140 mg/dL (60-115)
[2021-05-12 13:06] LABS: Ethanol 116 mg/dL
[2021-05-12 13:20] LABS: Alanine Aminotransferase 42 U/L (0-40); Albumin Level 4.6 g/dL (3.5-5.0); Alkaline Phosphatase 102 U/L (39-117); Anion Gap 26 (12-20); Aspartate Amino Transferase 85 U/L (5-37); Bilirubin Total 0.9 mg/dL (0.0-1.0); Blood Urea Nitrogen 21 mg/dL (9-16); Calcium 9.6 mg/dL (8.4-10.2); Carbon Dioxide 15 mmol/L (22-29); Chloride 81 mmol/L (96-108); Creatinine Clr Calc Pharmacy 53.8; Estimated Glomerular Filt Rate 49; Glucose Random 138 mg/dL (60-115); Magnesium 1.6 mg/dL (1.6-2.6); Potassium 4.8 mmol/L (3.3-5.1); Sodium 117 mmol/L (135-145); Total Protein 7.5 g/dL (6.5-8.0)
[2021-05-12 13:44] LABS: Osmolality, Serum 286 mosm/kg (281-305)
[2021-05-12] MEDS: 0.9 % Sodium Chloride 1,000 ML 100 ML IVCONT (14:36)
[2021-05-12 14:44] LABS: COVID-19 Test Negative (Negative); IDNOW Serial# 08D9AD1C
--- NOTE | 2021-05-12 14:51 | PHA.MEDREC ---
Pharmacy Consult ? Medication Reconciliation Pharmacy has completed the medication reconciliation. Patient is a [facility] patient from [facility]. Patient was able to confirm medication outside of [facility] including insulin. Reports he no longer takes trazodone. April Agosto, MaryD
[2021-05-12] MEDS: fentaNYL citrate/PF 100 MCG/2 ML VIAL IVPUSH (18:45)
[2021-05-12] MEDS: propofoL 200 MG/20 ML VIAL 500 MG IVPUSH (19:00)
[2021-05-12] MEDS: dexmedeTOMIDidine HCL/NS 400 MCG/100 ML INFUS..BTL 12.76 MCG IVCONT (19:00)
[2021-05-12] MEDS: Sodium Chloride 0.45 % 1,000 ML 1000 ML IVCONT (19:15)
[2021-05-12] MEDS: Lactated Ringers 300 ML 999 ML IV (20:05)
--- NOTE | 2021-05-12 20:15 | PM.CCHP ---
History of Present Illness Date of Service: 05/12/21 Attending physician on admission: Jose Migeul Chief Complaint: Altered mental status Mr. Aragon was admitted to the ICU this evening with hyponatremia, altered MS, and LAUREN The patient is a 65 yo M with PMHx of alcohol abuse, obesity, hypertension, hyperlipidemia, diabetes, COPD, diastolic heart failure, and non rheumatic aortic stenosis.? Old medical records indicate chronic dyspnea on exertion.? Last echo 04/29/2020 showed EF 55-60%, impaired relaxation, and moderate to severe aortic stenosis, with mean gradient 27 mm, and aortic valve area 1.05 cm2. ?RV not well visualized.? IVC normal with > 50% insp collapse. The patient was BIBA this morning because was found in the floor by a friend.? The patient did not know why he ended up in the floor.? He denied any chest pain or shortness of breath.? Vital signs in the ED were notable for mild tachycardia, and mild tachypnea.? But blood pressure was normal, sat was high 90s on room air, and the patient was afebrile.? General physical exam was otherwise unremarkable.? Chest x-ray was unremarkable. Labs in the ED were notable for white count of 12.2, platelet count of [id number].? Sodium was 117.? BUN/creatinine were 21/1.4 (baseline).? Bicarb was 15.? Anion gap 26.? Glucose was 138. ?Magnesium was 1.6.? T bili 0.9, with mildly elevated transaminases.? CPK was 1256.? Albumin was 4.6. ?Ethyl alcohol level was 116.? Salicylates, acetaminophen, and acetone were negative. ?Measured serum osm was 286, with a calculated Osmolar gap of 5.? COVID negative.? Head and cervical spine CT were unremarkable. The patient was started on normal saline at 100 cc/hour, and eventually admitted to the ICU with diagnoses of hyponatremia, metabolic encephalopathy presumably secondary to alcohol intoxication +/- hyponatremia, and acute kidney injury secondary to rhabdomyolysis and hypovolemia. On my exam, the patient was mildly delirious and very fidgety.? HR 105, BP 134/41, RR 21, Sat 100% on room air, temp 97.3?.? PER about 4mm.? No JVD at 30?.? He has no neck; his head and neck habitus are highly suggestive of YESSICA.? Chest is CTA.? Heart tones are very soft, I am unable to hear any murmur or gallop.? The abdomen is very soft and benign.? He has no pretibial edema; he may have trace central edema. In fact, while the patient sleeps (after being given Ativan) he does snore, and his breathing does pause. LABORATORY DATA:? Above, and below.? Repeat labs were delayed because telegrapher agent and the ED staff were unable to find a vein.? Ultimately, we had to place a central line in the ICU in order to get lab work (see separate procedure).? In the interim, the patient was given about a liter of normal saline, and a liter of 1/2NS. Repeat labs at 8pm showed unchanged white count.? Hemoglobin dropped to 13.2 after volume resuscitation.? Sodium up to 120, BUN/creatinine down to 18/1.0, bicarb unchanged at 15, glucose 132, phosphorus 2.8, magnesium 1.4, CPK down to 759, troponin 28. IMPRESSION: 1. H/o alcohol abuse. 2. Hyponatremia.? Unclear etiology.? Cannot r/o beer potomania or the like 3. Metabolic encephalopathy, presumably secondary to alcohol intoxication +/- hyponatremia.? Alcohol withdrawal is also possible.? We gave him 2 mg IV Ativan and his fidgetiness resolved and he fell asleep. 4. Acute kidney injury. ?2? secondary to rhabdomyolysis and hypovolemia.? Improving following vol resusc. 5. Anion gap metabolic acidosis.? Likely, at least in part, 2? to LAUREN.? Also ? alcoholic or starvation ketoacidosis (altho his albumin level is good).? (Discussed at length with Dr. Rodriguez from renal.) 6. YESSICA.? He undoubtedly has it. 7. DM.? Not a problem at the moment.? Doubt that his met acidosis is euglycemic DKA (if such a thing actually exists). 8. Aortic stenosis.? Not a problem at the moment. No evidence of sepsis.? Continue slow vol resusc and close f/u of serum sodium. Critical care time (including multiple visits to the bedside in both the ED and icu; ?excluding procedures):? 90 min. [facility] Past Medical History Medical History LAUREN (acute kidney injury) Alcohol abuse COPD (chronic obstructive pulmonary disease) Diabetes mellitus type 1 Diastolic dysfunction Diastolic heart failure HLD (hyperlipidemia) Hypertension Nonrheumatic aortic (valve) stenosis Obesity Family History Family History Father Diabetes Mother Diabetes Social History Social History Household Members: None Housing: Apartment Do you presently have visiting nurse or other home services: Yes Alcohol intake: never Patient Tobacco Use Status: Current everyday Tobacco user Tobacco use type: Cigar Second Hand Smoke Exposure: No Currently Displaying Signs/Symptoms of Drug Intoxication Withdrawal: No Advance Directives: Yes Advance Directives on File: Yes Advance Directives Date on File: 10/11/20 service: No Current occupational status: disabled Meds Allergies Allergy/AdvReac Type Severity Reaction Status Date / Time ENVIRONMENTAL Allergy Mild SNEEZING, Uncoded 09/26/20 17:14 WATERY EYES Active Medications: Current Medications Sodium Chloride (Ns) 1,000 mls @ 100 mls/hr IVCONT .Q10H JOURDAN Last Admin: 05/12/21 14:36 Dose: 100 mls/hr Documented by: Dexmedetomidine HCl (Precedex) 400 mcg in 100 mls @ 0 mls/hr IVCONT .Q0M JOURDAN; Protocol Last Titration: 05/12/21 19:15 Dose: 0 mcg/kg/hr, 0 mls/hr Documented by: Sodium Chloride () 1,000 mls @ 1,000 mls/hr IVCONT .Q1H JOURDAN Stop: 05/12/21 20:59 Last Admin: 05/12/21 19:15 Dose: 1,000 mls/hr Documented by: Lactated Ringer's (Lr) 300 mls @ 999 mls/hr IV .Q19M JOURDAN Stop: 05/12/21 20:18 Last Admin: 05/12/21 20:05 Dose: 999 mls/hr Documented by: Home Medications Medication Instructions Recorded Confirmed Last Taken Type albuterol sulfate 1 amp INHALATION QID 12/29/20 05/12/21 Unknown History albuterol sulfate 90 mcg/actuation 2 puff INHALATION QID PRN 12/29/20 05/12/21 Unknown History aerosol inhaler blood sugar diagnostic (FreeStyle 12/29/20 02/04/21 Unknown History Lite Strips) folic acid 1 mg tablet 1 tab PO QPM 12/29/20 05/12/21 Unknown History gabapentin 300 mg capsule 2 cap PO TID 12/29/20 05/12/21 Unknown History insulin aspart U-100 100 unit/mL 15 unit SUBCUT TIDAC 12/29/20 05/12/21 Unknown History subcutaneous solution (Novolog U-100 Insulin aspart) lisinopril 10 mg tablet 1 tab PO QAM 12/29/20 05/12/21 Unknown History multivitamin 1 tab PO QAM 12/29/20 05/12/21 Unknown History omega-3 fatty acids-fish oil 340 1 cap PO QAM 12/29/20 05/12/21 Unknown History mg-1,000 mg capsule (Fish Oil) simvastatin 20 mg tablet 1 tab PO BEDTIME 12/29/20 05/12/21 Unknown History thiamine HCl (vitamin B1) 100 mg 1 tab PO BEDTIME 12/29/20 05/12/21 Unknown History tablet aspirin 81 mg tablet,delayed 1 tab PO BEDTIME 02/04/21 05/12/21 Unknown History release buspirone 5 mg tablet 5 mg PO BID 02/04/21 05/12/21 Unknown History insulin glargine 100 unit/mL 45 unit SUBCUT BEDTIME 02/04/21 05/12/21 Unknown History subcutaneous solution (Lantus U-100 Insulin) celecoxib 50 mg capsule 1 cap PO BID 05/12/21 05/12/21 Unknown History ramelteon 8 mg tablet 1 tab PO BEDTIME 05/12/21 05/12/21 Unknown History tamsulosin 0.4 mg capsule 1 cap PO DAILY 05/12/21 05/12/21 Unknown History Physical Exam Vital Signs: Vital Signs: Last Vital Signs Temp 98.4 F 05/12/21 09:21 Pulse 88 05/12/21 19:00 Resp 22 H 05/12/21 19:00 BP 115/53 L 05/12/21 19:00 Pulse Ox 97 05/12/21 19:00 BMI result Body Mass Index 39.8 Results Labs CBC and Chem 7: 05/12/21 20:21 05/13/21 02:21 Labs: Laboratory Results - last 24 hr 05/12/21 05/12/21 05/12/21 11:32 11:32 12:28 MCV 85.1 MCH 31.4 MCHC 36.9 H RDW 14.4 Plt Count 239 MPV 7.9 L Immature Gran % (Auto) 0.4 Neut % (Auto) 85.2 H Lymph % (Auto) 7.0 L [place] % (Auto) 7.2 Eos % (Auto) 0.0 Baso % (Auto) 0.2 Lymph # (Auto) 0.9 L [place] # (Auto) 0.9 Eos # (Auto) 0.0 Baso # (Auto) 0.0 Abs Immat Gran (auto) 0.05 H Absolute Neuts (auto) 10.4 H Absolute Nucleated RBC 0.000 Nucleated RBC % (auto) 0.0 Anion Gap Estim Creat Clear Calc Estimated GFR POC Glucose 140 H Random Glucose Osmolality Calcium Magnesium Total Bilirubin AST ALT Alkaline Phosphatase Total Creatine Kinase Troponin I High Sens 26.0 Total Protein Albumin Ethyl Alcohol COVID-19 (ELIER) COVID-Autism Home Support Services 05/12/21 05/12/21 05/12/21 12:39 12:39 12:41 MCV MCH MCHC RDW Plt Count MPV Immature Gran % (Auto) Neut % (Auto) Lymph % (Auto) [place] % (Auto) Eos % (Auto) Baso % (Auto) Lymph # (Auto) [place] # (Auto) Eos # (Auto) Baso # (Auto) Abs Immat Gran (auto) Absolute Neuts (auto) Absolute Nucleated RBC Nucleated RBC % (auto) Anion Gap 26 H Estim Creat Clear Calc 53.8 Estimated GFR 49 POC Glucose Random Glucose 138 H D Osmolality 286 Calcium 9.6 D Magnesium 1.6 Total Bilirubin 0.9 AST 85 H ALT 42 H Alkaline Phosphatase 102 D Total Creatine Kinase 1256 H D Troponin I High Sens Total Protein 7.5 Albumin 4.6 Ethyl Alcohol 116 COVID-19 (ELIER) COVID-19 [employer] 05/12/21 14:06 MCV MCH MCHC RDW Plt Count MPV Immature Gran % (Auto) Neut % (Auto) Lymph % (Auto) [place] % (Auto) Eos % (Auto) Baso % (Auto) Lymph # (Auto) [place] # (Auto) Eos # (Auto) Baso # (Auto) Abs Immat Gran (auto) Absolute Neuts (auto) Absolute Nucleated RBC Nucleated RBC % (auto) Anion Gap Estim Creat Clear Calc Estimated GFR POC Glucose Random Glucose Osmolality Calcium Magnesium Total Bilirubin AST ALT Alkaline Phosphatase Total Creatine Kinase Troponin I High Sens Total Protein Albumin Ethyl Alcohol COVID-19 (ELIER) Negative COVID-19 Clin Com See Note Imaging Radiologist's Impressions: Impressions Chest X-Ray 05/12/21 09:55 IMPRESSION: Unremarkable examination. Cervical Spine CT 05/12/21 10:10 IMPRESSION: No acute intracranial process seen. No acute fracture, dislocation or subluxation in cervical spine. There is patient motion artifacts seen on CT brain and CT cervical spine. Head CT 05/12/21 10:11 IMPRESSION: No acute intracranial process seen. No acute fracture, dislocation or subluxation in cervical spine. There is patient motion artifacts seen on CT brain and CT cervical spine. Critical Care Time Critical Care Time (minutes): 90
[2021-05-12 20:23] LABS: Lactic Acid 1.3 mmol/L (0.5-2.0)
--- NOTE | 2021-05-12 20:23 | W.PM.CCHP ---
Procedures Date of Service Date of Service: 05/12/21 Central Line Placement Left SC: Central Line Comments: PROCEDURE:? Emergent insertion left subclavian central venous line. INDICATION:? IV access, phlebotomies? ANESTHESIA:? Local plus propofol sedation. The patient was delirous and fidgety, all over the bed, impossible to keep still. Emergency sedation was required for line placement. A total of 500 mg propofol was administered in small divided increments over about 45 min. PROCEDURE:? Vascular ultrasound was used to examine the left side.? A large compressible supraclavic left subclavian vein was noted. No good IJV or infraclavic subclavian veins were found. The left neck area was shaved and the left neck and upper chest and supraclavicular areas were widely prepped and draped in full sterile fashion.?? The supraclavic subclavian vein was located by US.? Local anesthesia was applied to the entrance site with the US probe oriented longitudinally.? The subclavian vein was cannulated on the 1st pass of the 18 gauge thin wall under direct US guidance.? The wire was threaded without incident.? A 7 Belgian by 20 cm triple-lumen catheter was advanced into the vein up to the hub via the Seldinger technique without incident.? There was good blood return x3.? The catheter was sutured x3 and a Biopatch and dry sterile dressing were applied. Postop chest x-ray showed the line in perfect position with no pneumothorax.? The patient tolerated the procedure well w no complications. Consent for Procedure: Emergent-no informed consent obtained Time out performed: No
[2021-05-12 20:37] LABS: Hematocrit 36.5 % (42.0-52.0); Hemoglobin 13.2 g/dl (14.0-18.0); Mean Corpuscular HGB Conc 36.2 g/dl (31.0-36.0); Mean Corpuscular Hemoglobin 31.4 pg (27.0-33.0); Mean Corpuscular Volume 86.7 fL (80.0-98.0); Mean Platelet Volume 7.8 fL (9.4-12.4); Platelet Count 196 X10*3/uL (160-400); Red Blood Count 4.21 X10*6/uL (4.60-5.80); Red Cell Distribution Width 14.6 % (11.0-16.0); White Blood Count 12.9 X10*3/uL (4.8-10.8)
[2021-05-12 20:38] LABS: Anion Gap 22 (12-20); Blood Urea Nitrogen 18 mg/dL (9-16); Calcium 8.2 mg/dL (8.4-10.2); Carbon Dioxide 15 mmol/L (22-29); Chloride 88 mmol/L (96-108); Creatinine Clr Calc Pharmacy 74.3; Estimated Glomerular Filt Rate > 60; Glucose Random 132 mg/dL (60-115); Potassium 4.6 mmol/L (3.3-5.1); Sodium 120 mmol/L (135-145)
[2021-05-12 21:52] LABS: Acetone, serum QL Negative (Negative)
[2021-05-12 22:02] LABS: Salicylate < 5.0 mg/dL (15-30)
[2021-05-12 22:09] LABS: Acetaminophen LAB < 1 mcg/mL (<30); Magnesium 1.4 mg/dL (1.6-2.6); Phosphorus 2.8 mg/dL (2.7-4.5)
[2021-05-12] MEDS: LORazepam 2 MG/ML VIAL IVPUSH (22:09)
[2021-05-12] MEDS: Lactated Ringers 1,000 ML 125 ML IVCONT (22:10)
[2021-05-12 22:51] LABS: VBG Base Excess -13.3 mmol/L; VBG HCO3 12 mmol/L (22-26); VBG pCO2 30 mmHg; VBG pH 7.22 (7.32-7.43); VBG pO2 48 mmHg
[2021-05-12 22:54] LABS: Venous Blood Gas Refer to POC result
[2021-05-12] MEDS: Magnesium Sulfate/D5W 1 GM/100 ML PIGGYBACK IV (23:53)
[2021-05-13] VITALS (16 sets, daily range): BP systolic 96–159; BP diastolic 50–103; PULSE 16–105; RESP 13–29; TEMP 36.2–37.3; O2SAT 94–100; BMI 84.3
[2021-05-13] MEDS: Potassium Phosphate/NS 15 MMOL/250 ML PLAST..BAG 62.5 MMOL IV (00:01)
[2021-05-13] MEDS: Nystatin Powder 15 GM BOTTLE 1 APPL TOPICAL ×3 (00:10→20:09)
[2021-05-13] MEDS: Magnesium Sulfate/H2O 2 GM/50 ML PIGGYBACK IV ×2 (01:12→12:51)
[2021-05-13 02:49] LABS: Albumin Level 4.2 g/dL (3.5-5.0); Anion Gap 23 (12-20); Blood Urea Nitrogen 15 mg/dL (9-16); Calcium 8.8 mg/dL (8.4-10.2); Carbon Dioxide 14 mmol/L (22-29); Chloride 91 mmol/L (96-108); Creatinine Clr Calc Pharmacy 66.7; Estimated Glomerular Filt Rate > 60; Glucose Random 158 mg/dL (60-115); Magnesium 2.8 mg/dL (1.6-2.6); Potassium 4.9 mmol/L (3.3-5.1); Sodium 123 mmol/L (135-145)
[2021-05-13 03:10] LABS: Appearance Urine CLEAR; Color Urine STRAW; Glucose Urine UA NEG (NEG); Leukocyte Esterase Urine NEG (NEG); Nitrite Urine NEG (NEG); PH 5.5 (5.0-8.0); Urine Blood 3+ (NEG); Urine Ketones >=80 MG/DL (NEG); Urine Protein NEG (NEG-TRACE)
[2021-05-13 03:27] LABS: WBC Urine 0-2 /HPF (0-4)
[2021-05-13 03:28] LABS: Bacteria Urine 1+ /LPF; Squamous Epithelial Cell Urine 1+ /LPF
[2021-05-13] MEDS: Lactated Ringers 1,000 ML 125 ML IVCONT (04:08)
[2021-05-13] MEDS: LORazepam 2 MG/ML VIAL 1 MG IVPUSH (04:47)
[2021-05-13 06:11] LABS: Venous Blood Gas Refer to POC result
[2021-05-13 08:41] LABS: Hematocrit 35.6 % (42.0-52.0); Hemoglobin 12.5 g/dl (14.0-18.0); Mean Corpuscular HGB Conc 35.1 g/dl (31.0-36.0); Mean Corpuscular Hemoglobin 30.6 pg (27.0-33.0); Mean Platelet Volume 7.9 fL (9.4-12.4); Platelet Count 185 X10*3/uL (160-400); Red Blood Count 4.09 X10*6/uL (4.60-5.80); White Blood Count 8.2 X10*3/uL (4.8-10.8)
[2021-05-13 08:55] LABS: Lactic Acid 0.7 mmol/L (0.5-2.0)
[2021-05-13 09:03] LABS: Alanine Aminotransferase 36 U/L (0-40); Albumin Level 3.9 g/dL (3.5-5.0); Alkaline Phosphatase 87 U/L (39-117); Anion Gap 18 (12-20); Aspartate Amino Transferase 58 U/L (5-37); Bilirubin Total 0.8 mg/dL (0.0-1.0); Blood Urea Nitrogen 12 mg/dL (9-16); Calcium 8.7 mg/dL (8.4-10.2); Carbon Dioxide 18 mmol/L (22-29); Chloride 95 mmol/L (96-108); Estimated Glomerular Filt Rate > 60; Glucose Random 154 mg/dL (60-115); Magnesium 2.1 mg/dL (1.6-2.6); Potassium 4.4 mmol/L (3.3-5.1); Sodium 127 mmol/L (135-145); Total Protein 6.2 g/dL (6.5-8.0)
[2021-05-13 09:05] LABS: B Type Natriuretic Peptide 218 pg/mL (<100)
[2021-05-13 09:19] LABS: Procalcitonin 0.13 ng/mL
--- NOTE | 2021-05-13 10:07 | PM.CNNEP ---
History of Present Illness Reason for Consult Consult date: 05/13/21 Reason for consult: Hyponatremia and ACidosis Chief Complaint Chief complaint: Hyponatremia,alcohol intoxication,encephalopathy History of Present Illness Narrative: ?65 yo M with PMHx of alcohol abuse, obesity, hypertension, hyperlipidemia, diabetes, COPD, diastolic heart failure, and non rheumatic aortic stenosis.? Old medical records indicate chronic dyspnea on exertion.? Last echo 04/29/2020 showed EF 55-60%, impaired relaxation, and moderate to severe aortic stenosis, with mean gradient 27 mm, and aortic valve area 1.05 cm2. ?RV not well visualized.? IVC normal with > 50% insp collapse. Na has been gradually corrected Initial serum osm was 281 Non oliguric Review of Systems Constitutional: Denies body ache(s) and Denies fever(s) Eyes: Denies blurry vision Denies vertigo and Denies dry mouth Cardiovascular: Denies chest pain Gastrointestinal: Denies abdominal pain Musculoskeletal: Denies arthralgias Denies vertigo PMFSH Past Medical History Medical History LAUREN (acute kidney injury) Alcohol abuse COPD (chronic obstructive pulmonary disease) Diabetes mellitus type 1 Diastolic dysfunction Diastolic heart failure HLD (hyperlipidemia) Hypertension Nonrheumatic aortic (valve) stenosis Obesity Family History Family History Father Diabetes Mother Diabetes Social History Social History Household Members: None Housing: House Do you presently have visiting nurse or other home services: No Alcohol intake: never Patient Tobacco Use Status: Current everyday Tobacco user Tobacco use type: Cigarette Smoked in Last 30 Days: Yes Second Hand Smoke Exposure: No Use of substances other than those prescribed or required for medical reasons: Unknown Currently Displaying Signs/Symptoms of Drug Intoxication Withdrawal: No Advance Directives: Yes Advance Directives on File: Yes Advance Directives Date on File: 10/11/20 Do you have thoughts of harming others: None Do you have a plan to hurt others: No Plan Recently lost weight without trying: Unsure Nutrition Risks: Poor intake 0-25% >4 days Poor oral hygiene: No service: No Current occupational status: disabled Meds Allergies Allergy/AdvReac Type Severity Reaction Status Date / Time ENVIRONMENTAL Allergy Mild SNEEZING, Uncoded 09/26/20 17:14 WATERY EYES Active Medications: Current Medications Dexmedetomidine HCl (Precedex) 400 mcg in 100 mls @ 0 mls/hr IVCONT .Q0M [facility]; Protocol Last Titration: 05/12/21 19:15 Dose: 0 mcg/kg/hr, 0 mls/hr Documented by: Lactated Ringer's (Lr) 1,000 mls @ 125 mls/hr IVCONT .Q8H JOURDAN Last Admin: 05/13/21 04:08 Dose: 125 mls/hr Documented by: Insulin Human Lispro (Insulin Lispro 100 Unit/Ml 3 Ml Vial) 0 unit SUBCUT QIDACHS [facility]; Protocol Lorazepam (Lorazepam 2 Mg/Ml Vial) 1 mg IVPUSH Q2H PRN PRN Reason: Alcohol Withdrawal Last Admin: 05/13/21 04:47 Dose: 1 mg Documented by: Nystatin (Nystatin Powder 15 Gm Bottle) 1 appl TOPICAL BID [facility]; Protocol Last Admin: 05/13/21 09:12 Dose: 1 appl Documented by: Home Medications Medication Instructions Recorded Confirmed Last Taken Type albuterol sulfate 1 amp INHALATION QID 12/29/20 05/12/21 Unknown History albuterol sulfate 90 mcg/actuation 2 puff INHALATION QID PRN 12/29/20 05/12/21 Unknown History aerosol inhaler blood sugar diagnostic (FreeStyle 12/29/20 02/04/21 Unknown History Lite Strips) folic acid 1 mg tablet 1 tab PO QPM 12/29/20 05/12/21 Unknown History gabapentin 300 mg capsule 2 cap PO TID 12/29/20 05/12/21 Unknown History insulin aspart U-100 100 unit/mL 15 unit SUBCUT TIDAC 12/29/20 05/12/21 Unknown History subcutaneous solution (Novolog U-100 Insulin aspart) lisinopril 10 mg tablet 1 tab PO QAM 12/29/20 05/12/21 Unknown History multivitamin 1 tab PO QAM 12/29/20 05/12/21 Unknown History omega-3 fatty acids-fish oil 340 1 cap PO QAM 12/29/20 05/12/21 Unknown History mg-1,000 mg capsule (Fish Oil) simvastatin 20 mg tablet 1 tab PO BEDTIME 12/29/20 05/12/21 Unknown History thiamine HCl (vitamin B1) 100 mg 1 tab PO BEDTIME 12/29/20 05/12/21 Unknown History tablet aspirin 81 mg tablet,delayed 1 tab PO BEDTIME 02/04/21 05/12/21 Unknown History release buspirone 5 mg tablet 5 mg PO BID 02/04/21 05/12/21 Unknown History insulin glargine 100 unit/mL 45 unit SUBCUT BEDTIME 02/04/21 05/12/21 Unknown History subcutaneous solution (Lantus U-100 Insulin) celecoxib 50 mg capsule 1 cap PO BID 05/12/21 05/12/21 Unknown History ramelteon 8 mg tablet 1 tab PO BEDTIME 05/12/21 05/12/21 Unknown History tamsulosin 0.4 mg capsule 1 cap PO DAILY 05/12/21 05/12/21 Unknown History Physical Exam Vital Signs: Last Vital Signs Temp 99.0 F 05/13/21 10:00 Pulse 104 H 05/13/21 10:00 Resp 18 05/13/21 10:00 BP 136/56 L 05/13/21 10:00 Pulse Ox 100 05/13/21 10:00 BMI result Body Mass Index 84.3 Const General: ill appearing Eyes Eyelids: Yes eyelids normal Neck Neck: Yes no meningeal signs Chest Chest palpation & inspection: normal palpation of entire chest wall Resp Effort & Inspection: no cough Auscultation: clear to auscultation bilaterally Cardio Jugular venous distension: no JVD Palpation: no palpable S3 Heart sounds: no click and no rubs GI Palpation (GI): Soft to palpation Auscultation: normal bowel sounds Neuro General: no meningeal signs and no focal motor deficits Motor exam (neuro): no asterixis Extrem Right upper extremity: No no edema Results Lab Results Result Diagrams: 05/14/21 05:41 05/14/21 05:41 Lab results: Chemistry 05/12/21 05/12/21 05/13/21 12:39 19:48 02:21 Sodium 117 L* 120 L* 123 L Potassium 4.8 4.6 4.9 Carbon Dioxide 15 L 15 L 14 L BUN 21 H 18 H 15 Creatinine 1.45 H 1.05 1.17 Calcium 9.6 D 8.2 L D 8.8 D Phosphorus 2.8 05/13/21 08:27 Sodium 127 L Potassium 4.4 Carbon Dioxide 18 L BUN 12 Creatinine 1.12 Calcium 8.7 Phosphorus 2.0 L Hematology 05/12/21 05/12/21 05/13/21 11:32 20:21 08:27 WBC 12.2 H 12.9 H 8.2 Hgb 14.8 13.2 L 12.5 L Plt Count 239 196 185 Urinalysis 05/13/21 02:30 Urine Color STRAW Urine Appearance CLEAR Urine pH 5.5 Ur Specific [place] 1.020 Urine Protein NEG Urine Glucose (UA) NEG Urine Ketones >=80 Urine Blood 3+ H Urine Nitrite NEG Ur Leukocyte Esterase NEG Urine RBC 1-4 Urine WBC 0-2 Ur Squamous Epith Cells 1+ Assessment and Plan (1) Acute hyponatremia: Status: Acute (2) Metabolic acidosis: Status: Acute (3) Alcohol abuse: Status: Acute Hyponatremia with normal serum Osm. Recheck Serum Osm Check Triglycerides. No hyperglycemia REstrict Hypotonic fluids Rate of correction acceptable. MEtabolic acidosis Osm gap 5 Most likely due to Ethanol. Alcoholic (keto) acidosis Urine Ketones > 80 ! Serum ACetone negative; Beta hydoxy butyrate - not available Keep I >O , Watch blood sugar and AG Mild Rhabdo UA shows 3 + blood with few RBCs Follow CPK Procedures Date of Service Date of Service: 05/13/21
[2021-05-13 11:17] LABS: Glucose, Whole Blood 142 mg/dL (60-115)
--- NOTE | 2021-05-13 11:40 | MHC.CM.PN ---
Addendum entered by Lizeth Maldonado 05/13/21 11:48: HCP on file (EMR) and verified: IMM in chart Original Note: Met with pt to discuss d/c planning: pt resides in apartment with what appears to be room mates. Pt is somewhat reserved with information - unsure if this is due to medical condition or is his baseline. He doesn't drive, have services or use adaptive equipment and notes his barriers to care are with transportation. Pt has been to [facility] in the past and is receptive to returning should he require it but declines VNA. I don't need people coming in Pt verifies PCP and states his HCP is his sister in law, Laura. CM to follow for finalization of d/c needs: pt will need transportation to home - may be able to d/c with [facility] shuttle as he lives local and doesn't have mobility issues or O2 needs.
--- NOTE | 2021-05-13 12:16 | PM.CCPN ---
Subjective Subjective Date of Service: 05/13/21 Interval History: Mr. Aragon was admitted to the ICU last night with hyponatremia, altered MS, and LAUREN The patient is a 65 yo M with PMHx of alcohol abuse, obesity, hypertension, hyperlipidemia, diabetes, COPD, diastolic heart failure, and non rheumatic aortic stenosis.? Old medical records indicate chronic dyspnea on exertion.? Last echo 04/29/2020 showed EF 55-60%, impaired relaxation, and moderate to severe aortic stenosis, with mean gradient 27 mm, and aortic valve area 1.05 cm2.? RV not well visualized.? IVC normal with > 50% insp collapse. The patient was BIBA yesterday morning because was found in the floor by a friend.? The patient did not know why he ended up in the floor.? He denied any chest pain or shortness of breath.? Vital signs in the ED were notable for mild tachycardia, and mild tachypnea.? But blood pressure was normal, sat was high 90s on room air, and the patient was afebrile.? General physical exam was otherwise unremarkable.? Chest x-ray was unremarkable. Labs in the ED were notable for white count of 12.2, platelet count of [id number].? Sodium was 117.? BUN/creatinine were 21/1.4 (baseline).? Bicarb was 15.? Anion gap 26.? Glucose was 138.? Magnesium was 1.6.? T bili 0.9, with mildly elevated transaminases.? CPK was 1256.? Albumin was 4.6.? Ethyl alcohol level was 116.? Salicylates, acetaminophen, and acetone were negative.? Measured serum osm was 286, with a calculated Osmolar gap of 5.? COVID negative.? Head and cervical spine CT were unremarkable.? The patient was started on normal saline at 100 cc/hour, and eventually admitted to the ICU bec of the 75hyponatremia. In the ICU, the patient was mildly delirious and very fidgety.? Breathing easy w Sat 100% on room air.? He required 500 mg propfol over 45 min to sedate for a CVL insertion.? After that, we gave him Ativan and he calmed down very nicely and slept.? While he was sleeping (after being given the Ativan) he did snore, and did have breathing pauses. This morning, he?s almost completely fully oriented, and almost fully appropriate.? He?s been complaining bitterly of being hungry.? He?s sitting up in bed and eating lunch unassisted.? HR 100, SR. ?BP 152/79. ?Breathing easy on room air w Sat 100%.? Afebrile.? No JVD.? Chest CTA.? I am unable to clearly hear any heart tones.? Abdomen is obese and benign.? No significant edema. I&O:? Currently on LR @ 125 cc/hr. LABORATORY DATA:? Below.? IMPRESSION: 1. H/o alcohol abuse. 2. Hyponatremia.? Unclear etiology.? Cannot r/o beer potomania or the like 3. Metabolic encephalopathy, initially thought secondary to alcohol intoxication +/- hyponatremia.? But the way he responded so nicely to Ativan makes me think that late stage alcohol withdrawal is an equal possibility.? We gave him 2 mg IV Ativan and his fidgetiness resolved and he fell asleep.? If so, he might get worse in the coming days. 4. Acute kidney injury.? 2? secondary to rhabdomyolysis and hypovolemia.? Improving following vol resusc. 5. Anion gap metabolic acidosis.? Likely, at least in part, 2? to LAUREN.? Alcoholic and/or starvation ketoacidosis are other factors in the DDx.? Discussed at length with Dr. Cali.? At least his bicarb is now improving. 6. YESSICA.? He undoubtedly has it. 7. DM.? Not a problem at the moment.? Now that he?s eating, though, we?ve put him on SS insulin. 8. Aortic stenosis.? Not a problem at the moment. 9. H/o diastolic heart failure.? BNP is up.? Need to be careful with his vol resuscitation. No evidence of sepsis.? Continue measured vol resusc and close f/u of serum sodium.? I?ve dropped his LR down to 75 cc/hr.? I think he?s prob pretty close to euvolemic and he could probably hydrate himself the rest of the way. Time:? 70068. Critical Care Time (minutes): 0 Physical Exam Vital Signs: Vital Signs: Last Vital Signs Temp 99.1 F 05/13/21 12:00 Pulse 101 H 05/13/21 12:00 Resp 16 05/13/21 12:00 BP 96/66 05/13/21 12:00 Pulse Ox 100 05/13/21 11:00 BMI result Body Mass Index 84.3 Objective Data Labs CBC & Chem 7: 05/13/21 08:27 05/13/21 08:27 Labs: Laboratory Results - last 24 hr 05/12/21 05/12/21 05/12/21 12:28 12:39 12:39 WBC RBC Hgb Hct MCV MCH MCHC RDW Plt Count MPV Absolute Nucleated RBC Nucleated RBC % (auto) VBG pH VBG pCO2 VBG pO2 VBG HCO3 VBG O2 Saturation VBG Base Excess Sodium 117 L* Potassium 4.8 Chloride 81 L Carbon Dioxide 15 L Anion Gap 26 H BUN 21 H Creatinine 1.45 H Estim Creat Clear Calc 53.8 Estimated GFR 49 POC Glucose 140 H Random Glucose 138 H D Osmolality Lactic Acid Calcium 9.6 D Phosphorus Magnesium 1.6 Total Bilirubin 0.9 AST 85 H ALT 42 H Alkaline Phosphatase 102 D Total Creatine Kinase 1256 H D Troponin I High Sens B-Natriuretic Peptide Total Protein 7.5 Albumin 4.6 Procalcitonin Urine Color Urine Appearance Urine pH Ur Specific [place] Urine Protein Urine Glucose (UA) Urine Ketones Urine Blood Urine Nitrite Ur Leukocyte Esterase Urine RBC Urine WBC Ur Squamous Epith Cells Urine Bacteria Ur Random Sodium Salicylates Acetaminophen Ethyl Alcohol 116 Acetone, Qual COVID-19 (ELIER) COVID-19 Clin Com 05/12/21 05/12/21 05/12/21 12:41 14:06 19:48 WBC RBC Hgb Hct MCV MCH MCHC RDW Plt Count MPV Absolute Nucleated RBC Nucleated RBC % (auto) VBG pH VBG pCO2 VBG pO2 VBG HCO3 VBG O2 Saturation VBG Base Excess Sodium 120 L* Potassium 4.6 Chloride 88 L Carbon Dioxide 15 L Anion Gap 22 H BUN 18 H Creatinine 1.05 Estim Creat Clear Calc 74.3 Estimated GFR > 60 POC Glucose Random Glucose 132 H Osmolality 286 Lactic Acid Calcium 8.2 L D Phosphorus 2.8 Magnesium 1.4 L* Total Bilirubin AST ALT Alkaline Phosphatase Total Creatine Kinase 759 H D Troponin I High Sens B-Natriuretic Peptide Total Protein Albumin Procalcitonin Urine Color Urine Appearance Urine pH Ur Specific [place] Urine Protein Urine Glucose (UA) Urine Ketones Urine Blood Urine Nitrite Ur Leukocyte Esterase Urine RBC Urine WBC Ur Squamous Epith Cells Urine Bacteria Ur Random Sodium Salicylates < 5.0 L Acetaminophen < 1 Ethyl Alcohol Acetone, Qual Negative COVID-19 (ELIER) Negative COVID-19 [employer] Com See Note 05/12/21 05/12/21 05/12/21 19:58 20:20 20:21 WBC 12.9 H RBC 4.21 L Hgb 13.2 L Hct 36.5 L MCV 86.7 MCH 31.4 MCHC 36.2 H RDW 14.6 Plt Count 196 MPV 7.8 L Absolute Nucleated RBC 0.000 Nucleated RBC % (auto) 0.0 VBG pH VBG pCO2 VBG pO2 VBG HCO3 VBG O2 Saturation VBG Base Excess Sodium Potassium Chloride Carbon Dioxide Anion Gap BUN Creatinine Estim Creat Clear Calc Estimated GFR POC Glucose Random Glucose Osmolality Lactic Acid 1.3 Calcium Phosphorus Magnesium Total Bilirubin AST ALT Alkaline Phosphatase Total Creatine Kinase Troponin I High Sens 28.0 B-Natriuretic Peptide Total Protein Albumin Procalcitonin Urine Color Urine Appearance Urine pH Ur Specific [place] Urine Protein Urine Glucose (UA) Urine Ketones Urine Blood Urine Nitrite Ur Leukocyte Esterase Urine RBC Urine WBC Ur Squamous Epith Cells Urine Bacteria Ur Random Sodium Salicylates Acetaminophen Ethyl Alcohol Acetone, Qual COVID-19 (ELIER) [employer] 05/12/21 05/13/21 05/13/21 22:44 02:21 02:30 WBC RBC Hgb Hct MCV MCH MCHC RDW Plt Count MPV Absolute Nucleated RBC Nucleated RBC % (auto) VBG pH 7.22 L VBG pCO2 30 VBG pO2 48 VBG HCO3 12 L VBG O2 Saturation 69.0 VBG Base Excess -13.3 Sodium 123 L Potassium 4.9 Chloride 91 L Carbon Dioxide 14 L Anion Gap 23 H BUN 15 Creatinine 1.17 Estim Creat Clear Calc 66.7 Estimated GFR > 60 POC Glucose Random Glucose 158 H Osmolality Lactic Acid Calcium 8.8 D Phosphorus Magnesium 2.8 H Total Bilirubin AST ALT Alkaline Phosphatase Total Creatine Kinase Troponin I High Sens B-Natriuretic Peptide Total Protein Albumin 4.2 Procalcitonin Urine Color Urine Appearance Urine pH Ur Specific [place] Urine Protein Urine Glucose (UA) Urine Ketones Urine Blood Urine Nitrite Ur Leukocyte Esterase Urine RBC Urine WBC Ur Squamous Epith Cells Urine Bacteria Ur Random Sodium 45.0 Salicylates Acetaminophen Ethyl Alcohol Acetone, Qual COVID-19 (ELIER) COVID-19 [employer] Com 0105/13/21 05/13/21 02:30 08:27 08:27 WBC 8.2 RBC 4.09 L Hgb 12.5 L Hct 35.6 L MCV 87.0 MCH 30.6 MCHC 35.1 RDW 15.0 Plt Count 185 MPV 7.9 L Absolute Nucleated RBC 0.000 Nucleated RBC % (auto) 0.0 VBG pH VBG pCO2 VBG pO2 VBG HCO3 VBG O2 Saturation VBG Base Excess Sodium 127 L Potassium 4.4 Chloride 95 L Carbon Dioxide 18 L Anion Gap 18 BUN 12 Creatinine 1.12 Estim Creat Clear Calc 112.0 Estimated GFR > 60 POC Glucose Random Glucose 154 H Osmolality Lactic Acid Calcium 8.7 Phosphorus 2.0 L Magnesium 2.1 Total Bilirubin 0.8 AST 58 H ALT 36 Alkaline Phosphatase 87 Total Creatine Kinase Troponin I High Sens B-Natriuretic Peptide Total Protein 6.2 L Albumin 3.9 Procalcitonin Urine Color STRAW Urine Appearance CLEAR Urine pH 5.5 Ur Specific [place] 1.020 Urine Protein NEG Urine Glucose (UA) NEG Urine Ketones >=80 Urine Blood 3+ H Urine Nitrite NEG Ur Leukocyte Esterase NEG Urine RBC 1-4 Urine WBC 0-2 Ur Squamous Epith Cells 1+ Urine Bacteria 1+ Ur Random Sodium Salicylates Acetaminophen Ethyl Alcohol Acetone, Qual COVID-19 (ELIER) COVID-19 [employer] 05/13/21 05/13/21 05/13/21 08:27 08:27 08:27 WBC RBC Hgb Hct MCV MCH MCHC RDW Plt Count MPV Absolute Nucleated RBC Nucleated RBC % (auto) VBG pH VBG pCO2 VBG pO2 VBG HCO3 VBG O2 Saturation VBG Base Excess Sodium Potassium Chloride Carbon Dioxide Anion Gap BUN Creatinine Estim Creat Clear Calc Estimated GFR POC Glucose Random Glucose Osmolality Lactic Acid 0.7 Calcium Phosphorus Magnesium Total Bilirubin AST ALT Alkaline Phosphatase Total Creatine Kinase Troponin I High Sens B-Natriuretic Peptide 218 H Total Protein Albumin Procalcitonin 0.13 Urine Color Urine Appearance Urine pH Ur Specific [place] Urine Protein Urine Glucose (UA) Urine Ketones Urine Blood Urine Nitrite Ur Leukocyte Esterase Urine RBC Urine WBC Ur Squamous Epith Cells Urine Bacteria Ur Random Sodium Salicylates Acetaminophen Ethyl Alcohol Acetone, Qual COVID-19 (ELIER) COVID-19 [employer] Com 05/13/21 11:14 WBC RBC Hgb Hct MCV MCH MCHC RDW Plt Count MPV Absolute Nucleated RBC Nucleated RBC % (auto) VBG pH VBG pCO2 VBG pO2 VBG HCO3 VBG O2 Saturation VBG Base Excess Sodium Potassium Chloride Carbon Dioxide Anion Gap BUN Creatinine Estim Creat Clear Calc Estimated GFR POC Glucose 142 H Random Glucose Osmolality Lactic Acid Calcium Phosphorus Magnesium Total Bilirubin AST ALT Alkaline Phosphatase Total Creatine Kinase Troponin I High Sens B-Natriuretic Peptide Total Protein Albumin Procalcitonin Urine Color Urine Appearance Urine pH Ur Specific [place] Urine Protein Urine Glucose (UA) Urine Ketones Urine Blood Urine Nitrite Ur Leukocyte Esterase Urine RBC Urine WBC Ur Squamous Epith Cells Urine Bacteria Ur Random Sodium Salicylates Acetaminophen Ethyl Alcohol Acetone, Qual COVID-19 ([facility]IER) COVID-19 Clin Com Quality Stroke Does the patient have a stroke diagnosis?: No VTE Prior VTE?: No VTE Risk Level:: Medical - moderate - high VTE Device Contraindication: N/A - Device Ordered VTE Drug Contraindication: N/A - Med Ordered
[2021-05-13] MEDS: Sodium,Potassium Phosphates POWD.PACK 2 PACKET PO (12:50)
[2021-05-13] MEDS: Lactated Ringers 1,000 ML 75 ML IVCONT (12:51)
[2021-05-13 14:41] LABS: Anion Gap 16 (12-20); Blood Urea Nitrogen 12 mg/dL (9-16); Calcium 8.8 mg/dL (8.4-10.2); Carbon Dioxide 22 mmol/L (22-29); Chloride 94 mmol/L (96-108); Creatinine Clr Calc Pharmacy 105.4; Estimated Glomerular Filt Rate > 60; Glucose Random 267 mg/dL (60-115); Potassium 4.4 mmol/L (3.3-5.1); Sodium 128 mmol/L (135-145)
[2021-05-13 17:30] LABS: Glucose, Whole Blood 224 mg/dL (60-115)
[2021-05-13] MEDS: Gabapentin 300 MG CAPSULE 600 MG PO ×2 (17:30→20:07)
[2021-05-13] MEDS: Insulin Lispro 100 UNIT/ML 3 ML VIAL SUBCUT ×2 (17:31→20:07)
[2021-05-13] MEDS: busPIRone HCl 5 MG TABLET PO (20:07)
[2021-05-13] MEDS: Aspirin Enteric Coated 81 MG TABLET.DR PO (20:07)
[2021-05-13] MEDS: Thiamine HCL 100 MG TABLET PO (20:07)
[2021-05-13] MEDS: Folic Acid 1 MG TABLET PO (20:07)
[2021-05-13] MEDS: Atorvastatin Calcium 10 MG TABLET PO (20:07)
[2021-05-13 20:13] LABS: Glucose, Whole Blood 203 mg/dL (60-115)
[2021-05-14] VITALS (8 sets, daily range): BP systolic 91–169; BP diastolic 40–100; PULSE 95–106; RESP 18–24; TEMP 36.6–37; O2SAT 94–98; BMI 86.1
--- NOTE | 2021-05-14 | PC.NURSE ---
pt's mccann catheter removed at 2209.
[2021-05-14] MEDS: Omeprazole 20 MG CAPSULE.DR PO ×2 (05:31→16:30)
[2021-05-14 05:57] LABS: Hematocrit 35.4 % (42.0-52.0); Hemoglobin 12.6 g/dl (14.0-18.0); Mean Corpuscular HGB Conc 35.6 g/dl (31.0-36.0); Mean Corpuscular Hemoglobin 30.7 pg (27.0-33.0); Mean Corpuscular Volume 86.3 fL (80.0-98.0); Mean Platelet Volume 8.4 fL (9.4-12.4); Platelet Count 164 X10*3/uL (160-400); White Blood Count 8.2 X10*3/uL (4.8-10.8)
[2021-05-14 06:14] LABS: Anion Gap 13 (12-20); Blood Urea Nitrogen 14 mg/dL (9-16); Carbon Dioxide 23 mmol/L (22-29); Chloride 98 mmol/L (96-108); Creatinine Clr Calc Pharmacy 136.4; Estimated Glomerular Filt Rate > 60; Glucose Random 221 mg/dL (60-115); Potassium 4.4 mmol/L (3.3-5.1); Sodium 130 mmol/L (135-145)
[2021-05-14 07:48] LABS: Glucose, Whole Blood 196 mg/dL (60-115)
[2021-05-14] MEDS: Insulin Lispro 100 UNIT/ML 3 ML VIAL SUBCUT ×4 (07:52→22:07)
--- NOTE | 2021-05-14 08:32 | PC.NURSE ---
Pt unable to void. Bladder scanned for 154ml. Will continue to monitor
[2021-05-14] MEDS: Multivitamin TABLET 1 TAB PO (09:30)
[2021-05-14] MEDS: Tamsulosin HCL 0.4 MG CAPSULE PO (09:30)
[2021-05-14] MEDS: busPIRone HCl 5 MG TABLET PO ×2 (09:30→20:41)
[2021-05-14] MEDS: Gabapentin 300 MG CAPSULE 600 MG PO ×3 (09:30→20:41)
[2021-05-14] MEDS: Nystatin Powder 15 GM BOTTLE 1 APPL TOPICAL ×2 (09:36→20:42)
--- NOTE | 2021-05-14 10:30 | P.PNNP_ITS ---
Subjective Subjective Date of Service: 05/15/21 Interval history: Evetns noted Physical Exam Vital Signs: Vital Signs: Last Vital Signs Temp 98.2 F 05/14/21 07:18 Pulse 95 05/14/21 07:18 Resp 20 05/14/21 07:18 BP 121/63 05/14/21 07:18 Pulse Ox 98 05/14/21 07:18 BMI result Body Mass Index 86.1 Const: General: comfortable and ill appearing Nutritional Appearance: average body habitus HENMT: Head: Yes normal to inspection General nose exam: Normal external nose present Face and sinus: Yes normal facial exam Mouth: Normal oral and palatal mucosa present Throat: Yes posterior oropharynx normal Eyes: Eyelids: Yes eyelids normal Neck: Neck: Yes normal visual inspection, Yes full ROM and Yes no meningeal signs Thyroid: Thyroid normal Chest: Chest palpation & inspection: normal inspection of the chest and normal palpation of entire chest wall Resp: Effort & Inspection: normal respiratory effort and no cough Auscultation: clear to auscultation bilaterally Cardio: Jugular venous distension: no JVD Palpation: no palpable S3 Rate: regular rate Rhythm: regular rhythm Heart sounds: no click and no rubs GI: Inspection: Yes normal to inspection Palpation (GI): Soft to palpation, not firm, nontender, no guarding and not rigid Percussion: Yes normal to percussion Auscultation: normal bowel sounds : General: Yes no CVA tenderness Back/Spine/Pelvis: Back: no CVA tenderness Neuro: General: no meningeal signs and no focal motor deficits Speech: No Abnormal speech present Motor exam (neuro): no asterixis Extrem: Right upper extremity: No no edema Objective Data Labs CBC & Chem 7: 05/15/21 08:57 05/15/21 08:57 Labs: Laboratory Results - last 24 hr 05/13/21 05/13/21 05/13/21 11:14 14:17 17:26 WBC RBC Hgb Hct MCV MCH MCHC RDW Plt Count MPV Absolute Nucleated RBC Nucleated RBC % (auto) Sodium 128 L Potassium 4.4 Chloride 94 L Carbon Dioxide 22 Anion Gap 16 BUN 12 Creatinine 1.19 Estim Creat Clear Calc 105.4 Estimated GFR > 60 POC Glucose 142 H 224 H Random Glucose 267 H D Calcium 8.8 05/13/21 05/14/21 05/14/21 19:10 05:41 05:41 WBC 8.2 RBC 4.10 L Hgb 12.6 L Hct 35.4 L MCV 86.3 MCH 30.7 MCHC 35.6 RDW 15.0 Plt Count 164 MPV 8.4 L Absolute Nucleated RBC 0.000 Nucleated RBC % (auto) 0.0 Sodium 130 L Potassium 4.4 Chloride 98 Carbon Dioxide 23 Anion Gap 13 BUN 14 Creatinine 0.92 Estim Creat Clear Calc 136.4 Estimated GFR > 60 POC Glucose 203 H Random Glucose 221 H Calcium 9.0 05/14/21 07:20 WBC RBC Hgb Hct MCV MCH MCHC RDW Plt Count MPV Absolute Nucleated RBC Nucleated RBC % (auto) Sodium Potassium Chloride Carbon Dioxide Anion Gap BUN Creatinine Estim Creat Clear Calc Estimated GFR POC Glucose 196 H Random Glucose Calcium Procedures Date of Service Date of Service: 05/14/21 Assessment & Plan Assessment and plan (1) Acute hyponatremia: Status: Acute (2) Metabolic acidosis: Status: Acute (3) Alcohol abuse: Status: Acute Assessment and Plan: Hyponatremia with normal serum Osm. Recheck Serum Osm - ordered Check Triglycerides. No hyperglycemia REstrict Hypotonic fluids Rate of correction acceptable. MEtabolic acidosis Osm gap 5 Most likely due to Ethanol. Alcoholic (keto) acidosis Urine Ketones > 80 ! Serum ACetone negative; Beta hydoxy butyrate - not available Keep I >O , Watch blood sugar and AG Acidosis stands corrected Mild Rhabdo UA shows 3 + blood with few RBCs Follow CPK Time Spent With Patient Time: Total time spent is greater than 50% in coordination of care (as docum ented) at patient's floor/unit and/or counseling patient: Time with patient: 15 - 24 minutes Progress Note: Quality Stroke Does the patient have a stroke diagnosis?: No
--- NOTE | 2021-05-14 10:48 | P.PNIM_ITS ---
Subjective Subjective Date of Service: 05/14/21 Interval History: cc: ams interval history: wehezy, feeling withdrawal Constitutional Constitutional: Reports no additional constitutional complaints Cardiovascular Cardiovascular: Reports no additional cardiovascular complaints Physical Exam Vital Signs: Vital Signs: Last Vital Signs Temp 98.2 F 05/14/21 07:18 Pulse 95 05/14/21 07:18 Resp 20 05/14/21 07:18 BP 121/63 05/14/21 07:18 Pulse Ox 98 05/14/21 07:18 BMI result Body Mass Index 86.1 General: AO X 3, anxious Resp: wheezing bilateral, no accessory muscles used CVS: S1,S2,RRR GI: soft, non tender, non distended Neuro: motor grossly intact, alert, mild tremor Psych: appropriate affect, appropriate insight Objective Data Active Medications Albuterol Sulfate (Albuterol Sulfate (0.083%) 2.5 Mg/3 Ml Vial.Neb) 2.5 mg INHALE RQID [facility] Last Admin: 05/14/21 08:04 Dose: Not Given Documented by: FLAQUITO Non-Admin Reason: Patient Refused Albuterol/Ipratropium (Albuterol/Iprat 2.5/0.5mg 3 Ml Ampul.Neb) 3 ml INHALE RQ4H WHILE AWAKE [facility] Aspirin (Aspirin Enteric Coated 81 Mg Tablet.) 81 mg PO BEDTIME [facility] Last Admin: 05/13/21 20:07 Dose: 81 mg Documented by: FRED Atorvastatin Calcium (Atorvastatin Calcium 10 Mg Tablet) 10 mg PO BEDTIME [facility] Last Admin: 05/13/21 20:07 Dose: 10 mg Documented by: FRED Buspirone HCl (Buspirone Hcl 5 Mg Tablet) 5 mg PO BID [facility] Last Admin: 05/14/21 09:30 Dose: 5 mg Documented by: BRENDA Folic Acid (Folic Acid 1 Mg Tablet) 1 mg PO BEDTIME [facility] Last Admin: 05/13/21 20:07 Dose: 1 mg Documented by: FRED Gabapentin (Gabapentin 300 Mg Capsule) 600 mg PO TID [facility] Last Admin: 05/14/21 09:30 Dose: 600 mg Documented by: BRENDA Insulin Human Lispro (Insulin Lispro 100 Unit/Ml 3 Ml Vial) 0 unit SUBCUT QIDACHS [facility]; Protocol Last Admin: 05/14/21 07:52 Dose: 2 unit Documented by: FANY Methylprednisolone Sodium Succinate (Methylprednisolone Sod Succ 125 Mg/2 Ml Vial) 60 mg IVPUSH Q12H [facility] Multivitamins/Vitamin C (Multivitamin Tablet) 1 tab PO DAILY [facility] Last Admin: 05/14/21 09:30 Dose: 1 tab Documented by: BRENDA Non-Formulary Medication (Ramelteon) 1 tab PO BEDTIME [facility] Nystatin (Nystatin Powder 15 Gm Bottle) 1 appl TOPICAL BID [facility]; Protocol Last Admin: 05/14/21 09:36 Dose: 1 appl Documented by: BRENDA Omeprazole (Omeprazole 20 Mg Capsule.) 20 mg PO BID@0630,1630 [facility] Last Admin: 05/14/21 05:31 Dose: 20 mg Documented by: FANY Pharmacy Consult (Consult Rx Etoh Phenob Dosing) 1 each MISCELLANE ONCE ONE; Protocol Stop: 05/14/21 10:21 Tamsulosin HCl (Tamsulosin Hcl 0.4 Mg Capsule) 0.4 mg PO DAILY [facility] Last Admin: 05/14/21 09:30 Dose: 0.4 mg Documented by: BRENDA Thiamine HCl (Thiamine Hcl 100 Mg Tablet) 100 mg PO BEDTIME [facility] Last Admin: 05/13/21 20:07 Dose: 100 mg Documented by: TARYNQC Labs CBC & Chem 7: 05/14/21 05:41 05/14/21 05:41 Labs: Laboratory Results - last 24 hr 05/13/21 05/13/21 05/13/21 11:14 14:17 17:26 MCV MCH MCHC RDW Plt Count MPV Absolute Nucleated RBC Nucleated RBC % (auto) Anion Gap 16 Estim Creat Clear Calc 105.4 Estimated GFR > 60 POC Glucose 142 H 224 H Random Glucose 267 H D Calcium 8.8 05/13/21 05/14/21 05/14/21 19:10 05:41 05:41 MCV 86.3 MCH 30.7 MCHC 35.6 RDW 15.0 Plt Count 164 MPV 8.4 L Absolute Nucleated RBC 0.000 Nucleated RBC % (auto) 0.0 Anion Gap 13 Estim Creat Clear Calc 136.4 Estimated GFR > 60 POC Glucose 203 H Random Glucose 221 H Calcium 9.0 05/14/21 07:20 MCV MCH MCHC RDW Plt Count MPV Absolute Nucleated RBC Nucleated RBC % (auto) Anion Gap Estim Creat Clear Calc Estimated GFR POC Glucose 196 H Random Glucose Calcium Assessment and Plan (1) Acute hyponatremia: Status: Acute Assessment and Plan: 65M admitted for ams, found to have severe hyponatremia, sodium corrected slowly, downgraded to medical floor, now complaining of sob/wheeze, withdrawal toxic-metabolic encephalopathy due to alcohol intoxication resolved hyponatremia resolved, monitor bmp, recheck osm, lipids nephro following LAUREN likely hypovolemic resolved, jacinto-i on hold acute decompensation of COPD start solumedrol, duonebs aclohol dependence with withdrawal phenobarb, ciwa DM insulin moderate to severe with chronic diastolic chf monitor fluid status bph flomax hld statin morbid obesoty weight loss recommended steatohepatitis afld and nafld dvt prophylaxis - lovenox Quality Stroke Does the patient have a stroke diagnosis?: No VTE Prior VTE?: No VTE Risk Level:: Medical - moderate - high VTE Device Contraindication: Treatment Not Indicated VTE Drug Contraindication: N/A - Med Ordered
[2021-05-14 11:42] LABS: Glucose, Whole Blood 271 mg/dL (60-115)
[2021-05-14] MEDS: methylPREDNISolone Sod Succ 125 MG/2 ML VIAL 60 MG IVPUSH ×2 (12:46→23:10)
[2021-05-14] MEDS: Enoxaparin Sodium 40 MG/0.4 ML SYRINGE SUBCUT (12:48)
--- NOTE | 2021-05-14 13:04 | PC.NURSE ---
Skin/Wound assessment completed. Patient has a fungal rash to left chest. Nystatin cream applied to area. No other skin issues noted at this time.
--- NOTE | 2021-05-14 14:58 | MHC.CM.PN ---
ICU DOWNGRADE. IN WITHDRAWAL AND COPD EXACERBATION CASE MANAGEMENT TO CONTINUE TO FOLLOW
[2021-05-14 16:26] LABS: Glucose, Whole Blood 308 mg/dL (60-115)
[2021-05-14] MEDS: PHENobarbitaL sodium 130 MG/ML VIAL 230 MG IM (16:31)
[2021-05-14] MEDS: Albuterol/Iprat 2.5/0.5MG 3 ML AMPUL.NEB INHALE (19:50)
[2021-05-14 20:22] LABS: Glucose, Whole Blood 358 mg/dL (60-115)
[2021-05-14] MEDS: Folic Acid 1 MG TABLET PO (20:41)
[2021-05-14] MEDS: Aspirin Enteric Coated 81 MG TABLET.DR PO (20:41)
[2021-05-14] MEDS: Atorvastatin Calcium 10 MG TABLET PO (20:41)
[2021-05-14] MEDS: PHENobarbitaL sodium 130 MG/ML VIAL 170 MG IM (20:43)
--- NOTE | 2021-05-14 20:49 | PC.NURSE ---
P BS [address] Gomez notified of the above e ok to adm insulin as per scale
[2021-05-14 21:34] LABS: Glucose, Whole Blood 378 mg/dL (60-115)
[2021-05-14] MEDS: Thiamine HCL 100 MG TABLET PO (22:08)
[2021-05-15] MEDS: PHENobarbitaL sodium 130 MG/ML VIAL 170 MG IM (00:27)
[2021-05-15] MEDS: Omeprazole 20 MG CAPSULE.DR PO ×2 (05:57→15:37)
[2021-05-15 07:22] VITALS: BP 143/83; PULSE 93; RESP 19; TEMP 36.4; O2SAT 96
[2021-05-15] MEDS: Insulin Glargine,Hum.rec.anlog 100 UNIT/ML 10 ML VIAL 45 UNIT SUBCUT (07:49)
[2021-05-15] MEDS: Insulin Lispro 100 UNIT/ML 3 ML VIAL SUBCUT ×3 (07:49→17:03)
[2021-05-15] MEDS: busPIRone HCl 5 MG TABLET PO ×2 (07:50→21:33)
[2021-05-15] MEDS: Multivitamin TABLET 1 TAB PO (07:50)
[2021-05-15] MEDS: Tamsulosin HCL 0.4 MG CAPSULE PO (07:50)
[2021-05-15] MEDS: Gabapentin 300 MG CAPSULE 600 MG PO ×2 (07:50→21:33)
[2021-05-15 07:54] LABS: Glucose, Whole Blood 370 mg/dL (60-115)
[2021-05-15] MEDS: PHENobarbitaL 15 MG TABLET 45 MG PO ×2 (08:39→21:35)
[2021-05-15] MEDS: Nystatin Powder 15 GM BOTTLE 1 APPL TOPICAL ×2 (08:47→21:36)
[2021-05-15 09:25] LABS: Hematocrit 32.5 % (42.0-52.0); Hemoglobin 11.4 g/dl (14.0-18.0); Mean Corpuscular HGB Conc 35.1 g/dl (31.0-36.0); Mean Corpuscular Hemoglobin 31.4 pg (27.0-33.0); Mean Corpuscular Volume 89.5 fL (80.0-98.0); Mean Platelet Volume 8.9 fL (9.4-12.4); Platelet Count 198 X10*3/uL (160-400); Red Blood Count 3.63 X10*6/uL (4.60-5.80); Red Cell Distribution Width 14.9 % (11.0-16.0); White Blood Count 10.6 X10*3/uL (4.8-10.8)
[2021-05-15 09:32] LABS: Osmolality, Serum 296 mosm/kg (281-305)
[2021-05-15 09:46] LABS: Alanine Aminotransferase 34 U/L (0-40); Albumin Level 4.1 g/dL (3.5-5.0); Alkaline Phosphatase 97 U/L (39-117); Anion Gap 14 (12-20); Aspartate Amino Transferase 27 U/L (5-37); Bilirubin Direct 0.2 mg/dL (0.0-0.5); Bilirubin Total 0.5 mg/dL (0.0-1.0); Blood Urea Nitrogen 17 mg/dL (9-16); Calcium 9.2 mg/dL (8.4-10.2); Carbon Dioxide 28 mmol/L (22-29); Chloride 94 mmol/L (96-108); Cholesterol 182 mg/dL; Creatinine Clr Calc Pharmacy 109.8; Estimated Glomerular Filt Rate > 60; HDL Cholesterol 69 mg/dL; LDL Cholesterol Calculated 93 mg/dl; Sodium 132 mmol/L (135-145); Total Protein 6.6 g/dL (6.5-8.0); Triglycerides 103 mg/dL
--- NOTE | 2021-05-15 09:55 | P.PNIM_ITS ---
Subjective Subjective Date of Service: 05/15/21 Interval History: cc: ams interval history: still feeling withdrawal Cardiovascular Cardiovascular: Reports no additional cardiovascular complaints Respiratory Respiratory: Reports no additional respiratory complaints Physical Exam Vital Signs: Vital Signs: Last Vital Signs Temp 97.5 F 05/15/21 07:22 Pulse 93 05/15/21 07:22 Resp 19 05/15/21 07:22 BP 143/83 H 05/15/21 07:22 Pulse Ox 96 05/15/21 07:22 BMI result Body Mass Index 86.1 General: AO X 3, Resp:? wheezing bilateral, no accessory muscles used CVS: S1,S2,RRR GI: soft, non tender, non distended Neuro:? motor grossly intact, alert, mild tremor Psych: appropriate affect, appropriate insight? Objective Data Active Medications Albuterol Sulfate (Albuterol Sulfate (0.083%) 2.5 Mg/3 Ml Vial.Neb) 2.5 mg INHALE RQID [facility] Last Admin: 05/15/21 08:09 Dose: Not Given Documented by: FLAQUITO Non-Admin Reason: Duplicate Order Albuterol/Ipratropium (Albuterol/Iprat 2.5/0.5mg 3 Ml Ampul.Neb) 3 ml INHALE RQ4H WHILE AWAKE [facility] Last Admin: 05/15/21 08:09 Dose: Not Given Documented by: FLAQUITO Non-Admin Reason: Patient Refused Aspirin (Aspirin Enteric Coated 81 Mg Tablet.) 81 mg PO BEDTIME [facility] Last Admin: 05/14/21 20:41 Dose: 81 mg Documented by: JOVITA Atorvastatin Calcium (Atorvastatin Calcium 10 Mg Tablet) 10 mg PO BEDTIME [facility] Last Admin: 05/14/21 20:41 Dose: 10 mg Documented by: JOVITA Buspirone HCl (Buspirone Hcl 5 Mg Tablet) 5 mg PO BID [facility] Last Admin: 05/15/21 07:50 Dose: 5 mg Documented by: DEONTE Enoxaparin Sodium (Enoxaparin Sodium 40 Mg/0.4 Ml Syringe) 40 mg SUBCUT Q24H [facility] Last Admin: 05/14/21 12:48 Dose: 40 mg Documented by: BRENDA Folic Acid (Folic Acid 1 Mg Tablet) 1 mg PO BEDTIME [facility] Last Admin: 05/14/21 20:41 Dose: 1 mg Documented by: JOVITA Gabapentin (Gabapentin 300 Mg Capsule) 600 mg PO TID [facility] Last Admin: 05/15/21 07:50 Dose: 600 mg Documented by: DEONTE Insulin Glargine (Insulin Glargine,Hum.Rec.Anlog 100 Unit/Ml 10 Ml Vial) 45 unit SUBCUT DAILY [facility] Last Admin: 05/15/21 07:49 Dose: 45 unit Documented by: DEONTE Insulin Human Lispro (Insulin Lispro 100 Unit/Ml 3 Ml Vial) 0 unit SUBCUT QIDACHS [facility]; Protocol Last Admin: 05/15/21 07:49 Dose: 10 unit Documented by: DEONTE Medication (No Benzodiazepines) 1 each MISCELLANE DAILY [facility]; Protocol Methylprednisolone Sodium Succinate (Methylprednisolone Sod Succ 125 Mg/2 Ml Vial) 60 mg IVPUSH Q12H [facility] Last Admin: 05/14/21 23:10 Dose: 60 mg Documented by: JOVITA Multivitamins/Vitamin C (Multivitamin Tablet) 1 tab PO DAILY [facility] Last Admin: 05/15/21 07:50 Dose: 1 tab Documented by: DEONTE Nystatin (Nystatin Powder 15 Gm Bottle) 1 appl TOPICAL BID [facility]; Protocol Last Admin: 05/15/21 08:47 Dose: 1 appl Documented by: DEONTE Omeprazole (Omeprazole 20 Mg Capsule.) 20 mg PO BID@0630,1630 [facility] Last Admin: 05/15/21 05:57 Dose: 20 mg Documented by: PERRY Phenobarbital (Phenobarbital 15 Mg Tablet) 15 mg PO DAILY [facility]; Protocol Phenobarbital (Phenobarbital 15 Mg Tablet) 45 mg PO BID [facility]; Protocol Stop: 05/16/21 21:01 Last Admin: 05/15/21 08:39 Dose: 45 mg Documented by: DEONTE Phenobarbital (Phenobarbital 15 Mg Tablet) 15 mg PO BID [facility]; Protocol Stop: 05/18/21 21:01 Tamsulosin HCl (Tamsulosin Hcl 0.4 Mg Capsule) 0.4 mg PO DAILY [facility] Last Admin: 05/15/21 07:50 Dose: 0.4 mg Documented by: DEONTE Thiamine HCl (Thiamine Hcl 100 Mg Tablet) 100 mg PO BEDTIME [facility] Last Admin: 05/14/21 22:08 Dose: 100 mg Documented by: JOVITA Labs CBC & Chem 7: 05/15/21 08:57 05/15/21 08:57 Labs: Laboratory Results - last 24 hr 05/14/21 05/14/21 05/14/21 11:23 16:14 18:51 MCV MCH MCHC RDW Plt Count MPV Absolute Nucleated RBC Nucleated RBC % (auto) Anion Gap Estim Creat Clear Calc Estimated GFR POC Glucose 271 H 308 H 358 H* Osmolality Calcium Total Bilirubin Direct Bilirubin AST ALT Alkaline Phosphatase Total Protein Albumin Triglycerides Cholesterol LDL Cholesterol, Calc HDL Cholesterol 05/14/21 05/15/21 05/15/21 20:38 07:20 08:57 MCV 89.5 MCH 31.4 MCHC 35.1 RDW 14.9 Plt Count 198 MPV 8.9 L Absolute Nucleated RBC 0.000 Nucleated RBC % (auto) 0.0 Anion Gap Estim Creat Clear Calc Estimated GFR POC Glucose 378 H* 370 H* Osmolality Calcium Total Bilirubin Direct Bilirubin AST ALT Alkaline Phosphatase Total Protein Albumin Triglycerides Cholesterol LDL Cholesterol, Calc HDL Cholesterol 05/15/21 05/15/21 08:57 08:57 MCV MCH MCHC RDW Plt Count MPV Absolute Nucleated RBC Nucleated RBC % (auto) Anion Gap 14 Estim Creat Clear Calc 109.8 Estimated GFR > 60 POC Glucose Osmolality 296 Calcium 9.2 Total Bilirubin 0.5 Direct Bilirubin 0.2 AST 27 D ALT 34 Alkaline Phosphatase 97 Total Protein 6.6 Albumin 4.1 Triglycerides 103 Cholesterol 182 LDL Cholesterol, Calc 93 HDL Cholesterol 69 Assessment and Plan (1) Acute hyponatremia: Status: Acute Assessment and Plan: 65M admitted for ams, found to have severe hyponatremia, sodium corrected slowly, downgraded to medical floor, now complaining of sob/wheeze, withdrawal toxic-metabolic encephalopathy due to alcohol intoxication resolved hyponatremia resolved, monitor bmp nephro following LAUREN likely hypovolemic resolved, jacinto-i on hold acute decompensation of COPD solumedrol, duonebs aclohol dependence with withdrawal phenobarb, ciwa DM basal bolus insulin moderate to severe with chronic diastolic chf monitor fluid status bph flomax hld statin morbid obesity weight loss recommended steatohepatitis afld and nafld dvt prophylaxis - lovenox Quality Stroke Does the patient have a stroke diagnosis?: No VTE Prior VTE?: No VTE Risk Level:: Medical - moderate - high VTE Device Contraindication: Treatment Not Indicated VTE Drug Contraindication: N/A - Med Ordered
[2021-05-15 10:06] LABS: Glucose Fasting 443 mg/dL (60-99)
--- NOTE | 2021-05-15 10:28 | PM.PNNEP ---
Subjective Subjective Date of Service: 05/15/21 Interval history: Events noted Feels tired More awake Physical Exam Vital Signs: Vital Signs: Last Vital Signs Temp 97.5 F 05/15/21 07:22 Pulse 93 05/15/21 07:22 Resp 19 05/15/21 07:22 BP 143/83 H 05/15/21 07:22 Pulse Ox 96 05/15/21 07:22 BMI result Body Mass Index 86.1 Const: General: comfortable and ill appearing Nutritional Appearance: average body habitus HENMT: Head: Yes normal to inspection General nose exam: Normal external nose present Face and sinus: Yes normal facial exam Mouth: Normal oral and palatal mucosa present Throat: Yes posterior oropharynx normal Eyes: Eyelids: Yes eyelids normal Neck: Neck: Yes normal visual inspection, Yes full ROM and Yes no meningeal signs Thyroid: Thyroid normal Chest: Chest palpation & inspection: normal inspection of the chest and normal palpation of entire chest wall Resp: Effort & Inspection: normal respiratory effort and no cough Auscultation: clear to auscultation bilaterally Cardio: Jugular venous distension: no JVD Palpation: no palpable S3 Rate: regular rate Rhythm: regular rhythm Heart sounds: no click and no rubs GI: Inspection: Yes normal to inspection Palpation (GI): Soft to palpation, not firm, nontender, no guarding and not rigid Percussion: Yes normal to percussion Auscultation: normal bowel sounds : General: Yes no CVA tenderness Back/Spine/Pelvis: Back: no CVA tenderness Neuro: General: no meningeal signs and no focal motor deficits Speech: No Abnormal speech present Motor exam (neuro): no asterixis Extrem: Right upper extremity: No no edema Objective Data Labs CBC & Chem 7: 05/15/21 08:57 05/15/21 08:57 Labs: Laboratory Results - last 24 hr 05/14/21 05/14/21 05/14/21 11:23 16:14 18:51 WBC RBC Hgb Hct MCV MCH MCHC RDW Plt Count MPV Absolute Nucleated RBC Nucleated RBC % (auto) Sodium Potassium Chloride Carbon Dioxide Anion Gap BUN Creatinine Estim Creat Clear Calc Estimated GFR POC Glucose 271 H 308 H 358 H* Fasting Glucose Osmolality Calcium Total Bilirubin Direct Bilirubin AST ALT Alkaline Phosphatase Total Protein Albumin Triglycerides Cholesterol LDL Cholesterol, Calc HDL Cholesterol 05/14/21 05/15/21 05/15/21 20:38 07:20 08:57 WBC 10.6 RBC 3.63 L Hgb 11.4 L Hct 32.5 L MCV 89.5 MCH 31.4 MCHC 35.1 RDW 14.9 Plt Count 198 MPV 8.9 L Absolute Nucleated RBC 0.000 Nucleated RBC % (auto) 0.0 Sodium Potassium Chloride Carbon Dioxide Anion Gap BUN Creatinine Estim Creat Clear Calc Estimated GFR POC Glucose 378 H* 370 H* Fasting Glucose Osmolality Calcium Total Bilirubin Direct Bilirubin AST ALT Alkaline Phosphatase Total Protein Albumin Triglycerides Cholesterol LDL Cholesterol, Calc HDL Cholesterol 05/15/21 05/15/21 08:57 08:57 WBC RBC Hgb Hct MCV MCH MCHC RDW Plt Count MPV Absolute Nucleated RBC Nucleated RBC % (auto) Sodium 132 L Potassium 4.0 Chloride 94 L Carbon Dioxide 28 Anion Gap 14 BUN 17 H Creatinine 1.16 Estim Creat Clear Calc 109.8 Estimated GFR > 60 POC Glucose Fasting Glucose 443 H* Osmolality 296 Calcium 9.2 Total Bilirubin 0.5 Direct Bilirubin 0.2 AST 27 D ALT 34 Alkaline Phosphatase 97 Total Protein 6.6 Albumin 4.1 Triglycerides 103 Cholesterol 182 LDL Cholesterol, Calc 93 HDL Cholesterol 69 Procedures Date of Service Date of Service: 05/15/21 Assessment & Plan Assessment and plan (1) Acute hyponatremia: Status: Acute (2) Metabolic acidosis: Status: Acute (3) Alcohol abuse: Status: Acute Assessment and Plan: Hyponatremia with normal serum Osm. Serum Osm 296 !!! serum Na 132 Probably due to hyperglycemia Check Triglycerides. REstrict Hypotonic fluids Rate of correction acceptable. MEtabolic acidosis Osm gap 5 Most likely due to Ethanol. Alcoholic (keto) acidosis Urine Ketones > 80 ! Serum ACetone negative; Beta hydoxy butyrate - not available Keep I >O , Watch blood sugar and AG Acidosis stands corrected Mild Rhabdo UA shows 3 + blood with few RBCs Follow CPK Time Spent With Patient Time: Total time spent is greater than 50% in coordination of care (as documented) at patient's floor/unit and/or counseling patient: Time with patient: 15 - 24 minutes Progress Note: Quality Stroke Does the patient have a stroke diagnosis?: No
[2021-05-15 11:16] VITALS: BP 145/79; PULSE 88; RESP 18; TEMP 36.4; O2SAT 98
[2021-05-15 11:45] LABS: Glucose, Whole Blood 390 mg/dL (60-115)
[2021-05-15] MEDS: methylPREDNISolone Sod Succ 125 MG/2 ML VIAL 60 MG IVPUSH ×2 (11:59→21:42)
[2021-05-15] MEDS: Enoxaparin Sodium 40 MG/0.4 ML SYRINGE SUBCUT (12:00)
[2021-05-15] MEDS: Insulin Lispro 100 UNIT/ML 3 ML VIAL 10 UNIT SUBCUT ×3 (12:02→21:33)
[2021-05-15 15:21] VITALS: BP 139/77; PULSE 101; RESP 17; O2SAT 100
[2021-05-15 16:31] LABS: Glucose, Whole Blood 212 mg/dL (60-115)
[2021-05-15 19:42] VITALS: BP 154/97; PULSE 98; RESP 18; TEMP 37; O2SAT 98
[2021-05-15 20:10] LABS: Glucose, Whole Blood 404 mg/dL (60-115)
[2021-05-15] MEDS: Albuterol/Iprat 2.5/0.5MG 3 ML AMPUL.NEB INHALE (20:47)
[2021-05-15 20:48] VITALS: PULSE 98; RESP 20; O2SAT 92
--- NOTE | 2021-05-15 21:01 | PC.NURSE ---
Addendum entered by Cynthia Mccracken RN 05/15/21 21:25: Per Dr. Gomez 10 units of scheduled Humulog insulin to be adm now,recheck BS in 3 hrs and than cover per scale as ordered Original Note: P BS [address] Gomez notified e awaiting new orders
[2021-05-15] MEDS: Atorvastatin Calcium 10 MG TABLET PO (21:34)
[2021-05-15] MEDS: Thiamine HCL 100 MG TABLET PO (21:34)
[2021-05-15] MEDS: Folic Acid 1 MG TABLET PO (21:34)
[2021-05-15] MEDS: Aspirin Enteric Coated 81 MG TABLET.DR PO (21:34)
[2021-05-15 23:09] VITALS: BP 134/76; PULSE 103; RESP 18; TEMP 36.3; O2SAT 96
[2021-05-16] VITALS (12 sets, daily range): BP systolic 113–180; BP diastolic 56–88; PULSE 78–97; RESP 14–20; TEMP 35.3–36.8; O2SAT 94–100; BMI 89.2
[2021-05-16 00:38] LABS: Glucose, Whole Blood 293 mg/dL (60-115)
[2021-05-16] MEDS: Insulin Lispro 100 UNIT/ML 3 ML VIAL SUBCUT ×6 (01:19→20:53)
--- NOTE | 2021-05-16 02:33 | PC.NURSE ---
POC RECHECK PER 3-11 RN REPORT, MESSAGE WAS TO COVER PER PATIENTS SLIDING SCALE ACCORDINGLY AT THAT TIME. RESULTS 293, HOSPITALIST ON UNIT AND VERBALLY CLARIFEID ORDER PRIOR TO INSULIN ADMINISTRATION. MD AWARE OF BLOOD SUGAR AND INSULIN 6 UNITS TO BE GIVEN PER SCALE. INSULIN GIVEN AT RIGHT UPPER ARM AND EXPLAINED TO PATIENT
[2021-05-16] MEDS: Omeprazole 20 MG CAPSULE.DR PO ×2 (06:06→16:11)
[2021-05-16 06:20] LABS: Hematocrit 31.3 % (42.0-52.0); Mean Corpuscular HGB Conc 35.1 g/dl (31.0-36.0); Mean Corpuscular Volume 88.2 fL (80.0-98.0); Mean Platelet Volume 9.4 fL (9.4-12.4); Platelet Count 230 X10*3/uL (160-400); Red Blood Count 3.55 X10*6/uL (4.60-5.80); Red Cell Distribution Width 14.4 % (11.0-16.0); White Blood Count 12.7 X10*3/uL (4.8-10.8)
[2021-05-16 06:40] LABS: Anion Gap 12 (12-20); Blood Urea Nitrogen 18 mg/dL (9-16); Carbon Dioxide 30 mmol/L (22-29); Chloride 92 mmol/L (96-108); Creatinine Clr Calc Pharmacy 163.5; Estimated Glomerular Filt Rate > 60; Glucose Fasting 269 mg/dL (60-99); Potassium 4.2 mmol/L (3.3-5.1); Sodium 130 mmol/L (135-145)
[2021-05-16 07:41] LABS: Glucose, Whole Blood 269 mg/dL (60-115)
[2021-05-16] MEDS: Albuterol Sulfate (0.083%) 2.5 MG/3 ML VIAL.NEB INHALE (07:43)
[2021-05-16] MEDS: Albuterol/Iprat 2.5/0.5MG 3 ML AMPUL.NEB INHALE ×2 (07:45→11:41)
[2021-05-16] MEDS: Insulin Lispro 100 UNIT/ML 3 ML VIAL 10 UNIT SUBCUT ×4 (09:24→20:54)
[2021-05-16] MEDS: busPIRone HCl 5 MG TABLET PO ×2 (09:37→20:51)
[2021-05-16] MEDS: Gabapentin 300 MG CAPSULE 600 MG PO ×3 (09:38→20:52)
[2021-05-16] MEDS: Tamsulosin HCL 0.4 MG CAPSULE PO (09:38)
[2021-05-16] MEDS: Multivitamin TABLET 1 TAB PO (09:38)
[2021-05-16] MEDS: PHENobarbitaL 15 MG TABLET 45 MG PO ×2 (09:38→20:52)
[2021-05-16] MEDS: Magnesium Hydrox/Alum Hydrox 30 ML ORAL.SUSP PO (11:00)
[2021-05-16] MEDS: PHENobarbitaL sodium 130 MG/ML VIAL IM (11:01)
[2021-05-16] MEDS: methylPREDNISolone Sod Succ 125 MG/2 ML VIAL 60 MG IVPUSH ×2 (11:03→22:45)
--- NOTE | 2021-05-16 11:03 | P.PNIM_ITS ---
Subjective Subjective Date of Service: 05/16/21 Interval History: the patient was seen and evaluated this morning sitting in the chair feeling tired and exhausted Reporting tremors in upper and lower extremities with increased anxiety level No reported other overnight events. Systemic review: No fever, chills but has generalized weakness No chest pain, palpitation shortness of breath improved but still having episodes of cough No abdominal pain, nausea or vomiting No urinary symptoms No any rash or wounds Physical Exam Vital Signs: Vital Signs: Last Vital Signs Temp 97.1 F 05/16/21 07:14 Pulse 91 05/16/21 09:50 Resp 20 05/16/21 07:46 BP 132/61 05/16/21 09:50 Pulse Ox 97 05/16/21 07:14 BMI result Body Mass Index 89.2 Const: Other: Constitutional : Alert, oriented, in mind anxiety Neck : Normal inspection, Supple Cardiovascular : RRR, S1 S2, no lower extremity edema Respiratory : Fares bilateral air entry, no crackles, scattered wheezes or rhonchi Gastrointestinal: soft, lax, Normal bowel sounds, Non tender Skin : Warm, Dry Neurological : Alert & oriented x3, No focal deficit, upper and lower extremities tremor on Rest Objective Data Active Medications Albuterol Sulfate (Albuterol Sulfate (0.083%) 2.5 Mg/3 Ml Vial.Neb) 2.5 mg INHALE RQID [facility] Last Admin: 05/16/21 07:43 Dose: 2.5 mg Documented by: MCKENZIE Albuterol/Ipratropium (Albuterol/Iprat 2.5/0.5mg 3 Ml Ampul.Neb) 3 ml INHALE RQ4H WHILE AWAKE [facility] Last Admin: 05/16/21 07:45 Dose: 3 ml Documented by: MCKENZIE Aspirin (Aspirin Enteric Coated 81 Mg Tablet.Dr) 81 mg PO BEDTIME [facility] Last Admin: 05/15/21 21:34 Dose: 81 mg Documented by: JOVITA Atorvastatin Calcium (Atorvastatin Calcium 10 Mg Tablet) 10 mg PO BEDTIME [facility] Last Admin: 05/15/21 21:34 Dose: 10 mg Documented by: JOVITA Buspirone HCl (Buspirone Hcl 5 Mg Tablet) 5 mg PO BID [facility] Last Admin: 05/16/21 09:37 Dose: 5 mg Documented by: BRENDA Enoxaparin Sodium (Enoxaparin Sodium 40 Mg/0.4 Ml Syringe) 40 mg SUBCUT Q24H [facility] Last Admin: 05/15/21 12:00 Dose: 40 mg Documented by: DEONTE Folic Acid (Folic Acid 1 Mg Tablet) 1 mg PO BEDTIME [facility] Last Admin: 05/15/21 21:34 Dose: 1 mg Documented by: JOVITA Gabapentin (Gabapentin 300 Mg Capsule) 600 mg PO TID [facility] Last Admin: 05/16/21 09:38 Dose: 600 mg Documented by: BRENDA Insulin Glargine (Insulin Glargine,Hum.Rec.Anlog 100 Unit/Ml 10 Ml Vial) 45 unit SUBCUT DAILY [facility] Last Admin: 05/16/21 09:40 Dose: Not Given Documented by: BRENDA Non-Admin Reason: Patient Refused Insulin Glargine (Insulin Glargine,Hum.Rec.Anlog 100 Unit/Ml 10 Ml Vial) 10 unit SUBCUT BEDTIME [facility] Insulin Human Lispro (Insulin Lispro 100 Unit/Ml 3 Ml Vial) 0 unit SUBCUT QIDACHS [facility]; Protocol Last Admin: 05/16/21 09:23 Dose: 6 unit Documented by: BRENDA Insulin Human Lispro (Insulin Lispro 100 Unit/Ml 3 Ml Vial) 10 unit SUBCUT QIDACHS [facility] Last Admin: 05/16/21 09:24 Dose: 1 unit Documented by: BRENDA Medication (No Benzodiazepines) 1 each MISCELLANE DAILY [facility]; Protocol Methylprednisolone Sodium Succinate (Methylprednisolone Sod Succ 125 Mg/2 Ml Vial) 60 mg IVPUSH Q12H [facility] Last Admin: 05/15/21 21:42 Dose: 60 mg Documented by: JOVITA Multivitamins/Vitamin C (Multivitamin Tablet) 1 tab PO DAILY [facility] Last Admin: 05/16/21 09:38 Dose: 1 tab Documented by: BRENDA Nystatin (Nystatin Powder 15 Gm Bottle) 1 appl TOPICAL BID [facility]; Protocol Last Admin: 05/16/21 09:44 Dose: Not Given Documented by: BRENDA Non-Admin Reason: Patient Refused Omeprazole (Omeprazole 20 Mg Gregg.) 20 mg PO BID@0630,1630 [facility] Last Admin: 05/16/21 06:06 Dose: 20 mg Documented by: PERRY Phenobarbital (Phenobarbital 15 Mg Tablet) 15 mg PO DAILY [facility]; Protocol Phenobarbital (Phenobarbital 15 Mg Tablet) 45 mg PO BID [facility]; Protocol Stop: 05/16/21 21:01 Last Admin: 05/16/21 09:38 Dose: 45 mg Documented by: BRENDA Phenobarbital (Phenobarbital 15 Mg Tablet) 15 mg PO BID [facility]; Protocol Stop: 05/18/21 21:01 Tamsulosin HCl (Tamsulosin Hcl 0.4 Mg Capsule) 0.4 mg PO DAILY [facility] Last Admin: 05/16/21 09:38 Dose: 0.4 mg Documented by: BRENDA Thiamine HCl (Thiamine Hcl 100 Mg Tablet) 100 mg PO BEDTIME [facility] Last Admin: 05/15/21 21:34 Dose: 100 mg Documented by: JOVITA Labs CBC & Chem 7: 05/16/21 05:27 05/16/21 05:27 Labs: Laboratory Results - last 24 hr 05/15/21 05/15/21 05/15/21 11:40 15:38 19:41 MCV MCH MCHC RDW Plt Count MPV Absolute Nucleated RBC Nucleated RBC % (auto) Anion Gap Estim Creat Clear Calc Estimated GFR POC Glucose 390 H* 212 H 404 H* Fasting Glucose Calcium 05/16/21 05/16/21 05/16/21 00:35 05:27 05:27 MCV 88.2 MCH 31.0 MCHC 35.1 RDW 14.4 Plt Count 230 MPV 9.4 Absolute Nucleated RBC 0.000 Nucleated RBC % (auto) 0.0 Anion Gap 12 Estim Creat Clear Calc 163.5 Estimated GFR > 60 POC Glucose 293 H Fasting Glucose 269 H D Calcium 9.0 05/16/21 07:16 MCV MCH MCHC RDW Plt Count MPV Absolute Nucleated RBC Nucleated RBC % (auto) Anion Gap Estim Creat Clear Calc Estimated GFR POC Glucose 269 H Fasting Glucose Calcium Assessment and Plan (1) Acute hyponatremia: Status: Acute (2) Metabolic acidosis: Status: Acute (3) Alcohol withdrawal: Status: Acute Assessment and Plan: 65M admitted for ams, found to have severe hyponatremia, sodium corrected slowly, downgraded to medical floor, now complaining of sob/wheeze, withdrawal toxic-metabolic encephalopathy due to alcohol intoxication resolved hyponatremia sodium corrected around 132 resolved, monitor bmp nephro following LAUREN likely hypovolemic resolved, jacinto-i on hold acute decompensation of COPD solumedrol, duonebs aclohol dependence with withdrawal More anxious and tremor today To add an extra dose of phenobarbital IM phenobarb, ciwa DM basal bolus insulin moderate to severe with chronic diastolic chf monitor fluid status bph flomax hld statin morbid obesity weight loss recommended steatohepatitis afld and nafld dvt prophylaxis - lovenox To do physical therapy evaluation Quality Stroke Does the patient have a stroke diagnosis?: No VTE Prior VTE?: No VTE Risk Level:: Medical - moderate - high VTE Device Contraindication: Treatment Not Indicated VTE Drug Contraindication: N/A - Med Ordered
[2021-05-16] MEDS: Enoxaparin Sodium 40 MG/0.4 ML SYRINGE SUBCUT (11:05)
[2021-05-16 11:45] LABS: Glucose, Whole Blood 372 mg/dL (60-115)
--- NOTE | 2021-05-16 12:29 | MHC.CM.PN ---
PER MULTIDISCIPLINARY ROUNDS PT CONT'STO HAVE WITHDRAWALS, PT EVAL TO BE PLACED TO DETERMINE SERVICES, PT DECLINES SA TX AND STR. PER HOSPITALIST ANTIC D/C IN 1-2 DAYS, CM WILL CONT TO FOLLOW D/C NEEDS.
[2021-05-16 15:48] LABS: Glucose, Whole Blood 307 mg/dL (60-115)
--- NOTE | 2021-05-16 16:10 | PM.PNNEP ---
Subjective Subjective Date of Service: 05/16/21 Interval history: the patient was seen and evaluated this morning sitting in the chair feeling tired and exhausted Reporting tremors in upper and lower extremities with increased anxiety level No reported other overnight events. Systemic review: No fever, chills but has generalized weakness No chest pain, palpitation shortness of breath improved but still having episodes of cough No abdominal pain, nausea or vomiting No urinary symptoms No any rash or wounds Physical Exam Vital Signs: Vital Signs: Last Vital Signs Temp 98.0 F 05/16/21 15:10 Pulse 82 05/16/21 15:10 Resp 18 05/16/21 15:10 BP 136/63 05/16/21 15:10 Pulse Ox 96 05/16/21 15:10 BMI result Body Mass Index 89.2 Const: General: comfortable and ill appearing Nutritional Appearance: average body habitus Resp: Effort & Inspection: normal respiratory effort and no cough Auscultation: clear to auscultation bilaterally Cardio: Jugular venous distension: no JVD Palpation: no palpable S3 Rate: regular rate Rhythm: regular rhythm Heart sounds: no click and no rubs GI: Inspection: Yes normal to inspection Palpation (GI): Soft to palpation, not firm, nontender, no guarding and not rigid Percussion: Yes normal to percussion Auscultation: normal bowel sounds Extrem: Right upper extremity: No no edema Objective Data Labs CBC & Chem 7: 05/16/21 05:27 05/16/21 05:27 Labs: Laboratory Results - last 24 hr 05/15/21 05/15/21 05/16/21 15:38 19:41 00:35 WBC RBC Hgb Hct MCV MCH MCHC RDW Plt Count MPV Absolute Nucleated RBC Nucleated RBC % (auto) Sodium Potassium Chloride Carbon Dioxide Anion Gap BUN Creatinine Estim Creat Clear Calc Estimated GFR POC Glucose 212 H 404 H* 293 H Fasting Glucose Calcium 05/16/21 05/16/21 05/16/21 05:27 05:27 07:16 WBC 12.7 H RBC 3.55 L Hgb 11.0 L Hct 31.3 L MCV 88.2 MCH 31.0 MCHC 35.1 RDW 14.4 Plt Count 230 MPV 9.4 Absolute Nucleated RBC 0.000 Nucleated RBC % (auto) 0.0 Sodium 130 L Potassium 4.2 Chloride 92 L Carbon Dioxide 30 H Anion Gap 12 BUN 18 H Creatinine 0.80 Estim Creat Clear Calc 163.5 Estimated GFR > 60 POC Glucose 269 H Fasting Glucose 269 H D Calcium 9.0 05/16/21 05/16/21 11:36 15:15 WBC RBC Hgb Hct MCV MCH MCHC RDW Plt Count MPV Absolute Nucleated RBC Nucleated RBC % (auto) Sodium Potassium Chloride Carbon Dioxide Anion Gap BUN Creatinine Estim Creat Clear Calc Estimated GFR POC Glucose 372 H* 307 H Fasting Glucose Calcium Procedures Date of Service Date of Service: 05/16/21 Assessment & Plan Assessment and plan (1) Acute hyponatremia: Status: Acute (2) Metabolic acidosis: Status: Acute (3) Alcohol abuse: Status: Acute Assessment and Plan: Hyponatremia with normal serum Osm. Serum Osm 296, Euosmolar hyponatremia probably due to hyperglycemia Restrict Hypotonic fluids (water and juice restriction encourage protein intake. monitor serum glucose. MEtabolic acidosis Osm gap 5 Most likely due to Ethanol. Alcoholic (keto) acidosis Urine Ketones > 80 ! Serum ACetone negative; Beta hydoxy butyrate - not available Keep I >O , Watch blood sugar and AG Acidosis stands corrected Mild Rhabdo UA shows 3 + blood with few RBCs Follow CPK Time Spent With Patient Time: Total time spent is greater than 50% in coordination of care (as documented) at patient's floor/unit and/or counseling patient: Progress Note: Quality Stroke Does the patient have a stroke diagnosis?: No
[2021-05-16 20:17] LABS: Glucose, Whole Blood 364 mg/dL (60-115)
[2021-05-16] MEDS: Atorvastatin Calcium 10 MG TABLET PO (20:51)
[2021-05-16] MEDS: Aspirin Enteric Coated 81 MG TABLET.DR PO (20:52)
[2021-05-16] MEDS: Folic Acid 1 MG TABLET PO (20:52)
[2021-05-16] MEDS: Thiamine HCL 100 MG TABLET PO (20:52)
[2021-05-16] MEDS: Famotidine/PF 20 MG/2 ML VIAL IVPUSH (20:52)
[2021-05-16] MEDS: Insulin Glargine,Hum.rec.anlog 100 UNIT/ML 10 ML VIAL 45 UNIT SUBCUT (20:53)
[2021-05-17] VITALS (7 sets, daily range): BP systolic 112–167; BP diastolic 53–85; PULSE 80–92; RESP 18–20; TEMP 36.1–36.9; O2SAT 94–98
[2021-05-17] MEDS: Omeprazole 20 MG CAPSULE.DR PO ×2 (05:28→17:21)
[2021-05-17 06:23] LABS: Anion Gap 15 (12-20); Blood Urea Nitrogen 19 mg/dL (9-16); Calcium 9.1 mg/dL (8.4-10.2); Carbon Dioxide 29 mmol/L (22-29); Chloride 94 mmol/L (96-108); Creatinine Clr Calc Pharmacy 134.8; Estimated Glomerular Filt Rate > 60; Glucose Random 306 mg/dL (60-115); Potassium 5.2 mmol/L (3.3-5.1); Sodium 133 mmol/L (135-145)
[2021-05-17 08:11] LABS: Glucose, Whole Blood 255 mg/dL (60-115)
[2021-05-17] MEDS: PHENobarbitaL 15 MG TABLET PO ×2 (08:30→21:05)
[2021-05-17] MEDS: busPIRone HCl 5 MG TABLET PO ×2 (08:30→21:05)
[2021-05-17] MEDS: Gabapentin 300 MG CAPSULE 600 MG PO ×3 (08:30→21:05)
[2021-05-17] MEDS: Multivitamin TABLET 1 TAB PO (08:31)
[2021-05-17] MEDS: Tamsulosin HCL 0.4 MG CAPSULE PO (08:31)
[2021-05-17] MEDS: Insulin Lispro 100 UNIT/ML 3 ML VIAL SUBCUT ×4 (08:31→21:06)
[2021-05-17] MEDS: Insulin Lispro 100 UNIT/ML 3 ML VIAL 10 UNIT SUBCUT ×4 (08:31→21:06)
[2021-05-17] MEDS: Nystatin Powder 15 GM BOTTLE 1 APPL TOPICAL (08:32)
--- NOTE | 2021-05-17 10:22 | P.PNIM_ITS ---
Subjective Subjective Date of Service: 05/17/21 Interval History: cc: ams interval history: weakn, difficulty ambualting Cardiovascular Cardiovascular: Reports no additional cardiovascular complaints Respiratory Respiratory: Reports no additional respiratory complaints Physical Exam Vital Signs: Vital Signs: Last Vital Signs Temp 98.4 F 05/17/21 07:23 Pulse 86 05/17/21 07:23 Resp 20 05/17/21 07:23 BP 167/85 H 05/17/21 07:23 Pulse Ox 96 05/17/21 07:23 BMI result Body Mass Index 89.2 General: AO X 3, Resp:? cta bilateral, no accessory muscles used CVS: S1,S2,RRR GI: soft, non tender, non distended Neuro:? motor grossly intact, alert, mild tremor Psych: appropriate affect, appropriate insight? Objective Data Active Medications Albuterol/Ipratropium (Albuterol/Iprat 2.5/0.5mg 3 Ml Ampul.Neb) 3 ml INHALE RQ4H WHILE AWAKE [facility] Last Admin: 05/17/21 07:27 Dose: Not Given Documented by: FLAQUITO Non-Admin Reason: Patient Refused Aspirin (Aspirin Enteric Coated 81 Mg Tablet.) 81 mg PO BEDTIME [facility] Last Admin: 05/16/21 20:52 Dose: 81 mg Documented by: ZANDRA Atorvastatin Calcium (Atorvastatin Calcium 10 Mg Tablet) 10 mg PO BEDTIME [facility] Last Admin: 05/16/21 20:51 Dose: 10 mg Documented by: ZANDRA Buspirone HCl (Buspirone Hcl 5 Mg Tablet) 5 mg PO BID [facility] Last Admin: 05/17/21 08:30 Dose: 5 mg Documented by: SHERRI Enoxaparin Sodium (Enoxaparin Sodium 40 Mg/0.4 Ml Syringe) 40 mg SUBCUT Q24H [facility] Last Admin: 05/16/21 11:05 Dose: 40 mg Documented by: RENA Folic Acid (Folic Acid 1 Mg Tablet) 1 mg PO BEDTIME [facility] Last Admin: 05/16/21 20:52 Dose: 1 mg Documented by: ZANDRA Gabapentin (Gabapentin 300 Mg Capsule) 600 mg PO TID [facility] Last Admin: 05/17/21 08:30 Dose: 600 mg Documented by: SHERRI Insulin Glargine (Insulin Glargine,Hum.Rec.Anlog 100 Unit/Ml 10 Ml Vial) 45 unit SUBCUT BEDTIME [facility] Last Admin: 05/16/21 20:53 Dose: 45 unit Documented by: ZANDRA Insulin Human Lispro (Insulin Lispro 100 Unit/Ml 3 Ml Vial) 0 unit SUBCUT QIDACHS [facility]; Protocol Last Admin: 05/17/21 08:31 Dose: 6 unit Documented by: SHERRI Insulin Human Lispro (Insulin Lispro 100 Unit/Ml 3 Ml Vial) 10 unit SUBCUT QIDACHS [facility] Last Admin: 05/17/21 08:31 Dose: 10 unit Documented by: SHERRI Medication (No Benzodiazepines) 1 each MISCELLANE DAILY [facility]; Protocol Methylprednisolone Sodium Succinate (Methylprednisolone Sod Succ 125 Mg/2 Ml Vial) 60 mg IVPUSH Q12H [facility] Last Admin: 05/16/21 22:45 Dose: 60 mg Documented by: ZANDRA Multivitamins/Vitamin C (Multivitamin Tablet) 1 tab PO DAILY [facility] Last Admin: 05/17/21 08:31 Dose: 1 tab Documented by: SHERRI Nystatin (Nystatin Powder 15 Gm Bottle) 1 appl TOPICAL BID [facility]; Protocol Last Admin: 05/17/21 08:32 Dose: 1 appl Documented by: SHERRI Omeprazole (Omeprazole 20 Mg Capsule.) 20 mg PO BID@0630,1630 [facility] Last Admin: 05/17/21 05:28 Dose: 20 mg Documented by: ZANDRA Phenobarbital (Phenobarbital 15 Mg Tablet) 15 mg PO DAILY [facility]; Protocol Phenobarbital (Phenobarbital 15 Mg Tablet) 15 mg PO BID [facility]; Protocol Stop: 05/18/21 21:01 Last Admin: 05/17/21 08:30 Dose: 15 mg Documented by: SHERRI Tamsulosin HCl (Tamsulosin Hcl 0.4 Mg Capsule) 0.4 mg PO DAILY [facility] Last Admin: 05/17/21 08:31 Dose: 0.4 mg Documented by: SHERRI Thiamine HCl (Thiamine Hcl 100 Mg Tablet) 100 mg PO BEDTIME [facility] Last Admin: 05/16/21 20:52 Dose: 100 mg Documented by: ZANDRA Labs CBC & Chem 7: 05/16/21 05:27 05/17/21 05:25 Labs: Laboratory Results - last 24 hr 05/16/21 05/16/21 05/16/21 11:36 15:15 19:02 Anion Gap Estim Creat Clear Calc Estimated GFR POC Glucose 372 H* 307 H 364 H* Random Glucose Calcium 05/17/21 05/17/21 05:25 07:22 Anion Gap 15 Estim Creat Clear Calc 134.8 Estimated GFR > 60 POC Glucose 255 H Random Glucose 306 H D Calcium 9.1 Assessment and Plan (1) Acute hyponatremia: Status: Acute Assessment and Plan: 65M admitted for ams, found to have severe hyponatremia, sodium corrected slowly, downgraded to medical floor, now complaining of sob/wheeze, withdrawal toxic-metabolic encephalopathy due to alcohol intoxication resolved hyponatremia resolved, monitor bmp LAUREN likely hypovolemic resolved, jacinto-i on hold acute decompensation of COPD improved, change to prednisone aclohol dependence with withdrawal phenobarb, ciwa DM basal bolus insulin moderate to severe with chronic diastolic chf monitor fluid status bph flomax hld statin morbid obesity weight loss recommended steatohepatitis afld and nafld dvt prophylaxis - lovenox dispo - likely to need rehab Quality Stroke Does the patient have a stroke diagnosis?: No VTE Prior VTE?: No VTE Risk Level:: Medical - moderate - high VTE Device Contraindication: Treatment Not Indicated VTE Drug Contraindication: N/A - Med Ordered
[2021-05-17 11:42] LABS: Glucose, Whole Blood 319 mg/dL (60-115)
[2021-05-17] MEDS: Enoxaparin Sodium 40 MG/0.4 ML SYRINGE SUBCUT (12:04)
--- NOTE | 2021-05-17 13:08 | MHC.CM.PN ---
Addendum entered by Sondra Petersen 05/17/21 14:25: [facility]. POTENTIAL DC FOR Wednesday05/18/2021 Original Note: PATIENT REFUSES ANY STR REFERRALS. HE IS AWARE THAT HE WILL NEED [facility] IF HE DOES NOT GO TO REHAB. AGREES TO [facility]. REFERRAL NOW PLACED. PATIENT FEELS TOO WEAK TO GO HOME OR EVEN GET OUT OF BED AT THIS TIME.
--- NOTE | 2021-05-17 16:21 | PM.PNNEP ---
Subjective Subjective Date of Service: 05/17/21 Interval history: no events Na better K marginally elevated Cr normal Physical Exam Vital Signs: Vital Signs: Last Vital Signs Temp 97.6 F 05/17/21 15:20 Pulse 90 05/17/21 15:20 Resp 18 05/17/21 15:20 BP 116/56 L 05/17/21 15:20 Pulse Ox 94 05/17/21 15:20 BMI result Body Mass Index 89.2 Const: General: comfortable and ill appearing Nutritional Appearance: average body habitus Resp: Effort & Inspection: normal respiratory effort and no cough Auscultation: clear to auscultation bilaterally Cardio: Jugular venous distension: no JVD Palpation: no palpable S3 Rate: regular rate Rhythm: regular rhythm Heart sounds: no click and no rubs GI: Inspection: Yes normal to inspection Palpation (GI): Soft to palpation, not firm, nontender, no guarding and not rigid Percussion: Yes normal to percussion Auscultation: normal bowel sounds Extrem: Right upper extremity: No no edema Objective Data Labs CBC & Chem 7: 05/16/21 05:27 05/17/21 05:25 Labs: Laboratory Results - last 24 hr 05/16/21 05/17/21 05/17/21 19:02 05:25 07:22 Sodium 133 L Potassium 5.2 H D Chloride 94 L Carbon Dioxide 29 Anion Gap 15 BUN 19 H Creatinine 0.97 Estim Creat Clear Calc 134.8 Estimated GFR > 60 POC Glucose 364 H* 255 H Random Glucose 306 H D Calcium 9.1 05/17/21 11:18 Sodium Potassium Chloride Carbon Dioxide Anion Gap BUN Creatinine Estim Creat Clear Calc Estimated GFR POC Glucose 319 H Random Glucose Calcium Procedures Date of Service Date of Service: 05/17/21 Assessment & Plan Assessment and plan (1) Acute hyponatremia: Status: Acute (2) Metabolic acidosis: Status: Acute (3) Alcohol abuse: Status: Acute Assessment and Plan: 1) Hyponatremia with normal serum Osm. Serum Osm 296, Euosmolar hyponatremia probably due to hyperglycemia Also some component of hypovolemia 2) Hyperkalemia 2/2 hyperglycemia 2/2 reduced distal tubule delivery of Na and Water 3) MEtabolic acidosis Osm gap 5 Most likely due to Ethanol. Alcoholic (keto) acidosis Urine Ketones > 80 ! Serum ACetone negative; Beta hydoxy butyrate - not available Keep I >O , Watch blood sugar and AG Acidosis stands corrected Plan: please administer 0.9% saline x1 liter Restrict Hypotonic fluids (water and juice restriction) encourage protein intake. monitor serum glucose and keep under better control Time Spent With Patient Time: Total time spent is greater than 50% in coordination of care (as documented) at patient's floor/unit and/or counseling patient: Time with patient: Greater than 35 minutes Progress Note: Quality Stroke Does the patient have a stroke diagnosis?: No
[2021-05-17 16:50] LABS: Glucose, Whole Blood 287 mg/dL (60-115)
[2021-05-17] MEDS: 0.9 % Sodium Chloride 1,000 ML 125 ML IVCONT (17:22)
[2021-05-17 20:42] LABS: Glucose, Whole Blood 228 mg/dL (60-115)
[2021-05-17] MEDS: Atorvastatin Calcium 10 MG TABLET PO (21:04)
[2021-05-17] MEDS: Folic Acid 1 MG TABLET PO (21:05)
[2021-05-17] MEDS: Aspirin Enteric Coated 81 MG TABLET.DR PO (21:05)
[2021-05-17] MEDS: Thiamine HCL 100 MG TABLET PO (21:05)
[2021-05-17] MEDS: Insulin Glargine,Hum.rec.anlog 100 UNIT/ML 10 ML VIAL 45 UNIT SUBCUT (21:06)
[2021-05-18 03:31] VITALS: BP 123/57; PULSE 83; RESP 18; TEMP 36.4; O2SAT 99
[2021-05-18] MEDS: Omeprazole 20 MG CAPSULE.DR PO ×2 (05:39→16:30)
[2021-05-18 05:46] LABS: Hematocrit 33.5 % (42.0-52.0); Hemoglobin 11.1 g/dl (14.0-18.0); Mean Corpuscular HGB Conc 33.1 g/dl (31.0-36.0); Mean Corpuscular Hemoglobin 30.7 pg (27.0-33.0); Mean Corpuscular Volume 92.8 fL (80.0-98.0); Mean Platelet Volume 8.4 fL (9.4-12.4); NRBC Pct Auto 0.6 /100WBC (0.0-0.2); Platelet Count 257 X10*3/uL (160-400); Red Blood Count 3.61 X10*6/uL (4.60-5.80); White Blood Count 8.7 X10*3/uL (4.8-10.8)
[2021-05-18 06:17] LABS: Anion Gap 8 (12-20); Blood Urea Nitrogen 21 mg/dL (9-16); Calcium 8.5 mg/dL (8.4-10.2); Carbon Dioxide 37 mmol/L (22-29); Chloride 96 mmol/L (96-108); Creatinine Clr Calc Pharmacy 157.6; Estimated Glomerular Filt Rate > 60; Glucose Fasting 136 mg/dL (60-99); Potassium 3.5 mmol/L (3.3-5.1); Sodium 137 mmol/L (135-145)
[2021-05-18 07:25] VITALS: BP 105/61; PULSE 83; RESP 20; TEMP 36.6; O2SAT 97
[2021-05-18 08:05] LABS: Glucose, Whole Blood 118 mg/dL (60-115)
[2021-05-18 08:21] VITALS: PULSE 82; RESP 20; O2SAT 97
[2021-05-18] MEDS: Albuterol/Iprat 2.5/0.5MG 3 ML AMPUL.NEB INHALE (08:21)
[2021-05-18] MEDS: Multivitamin TABLET 1 TAB PO (08:28)
[2021-05-18] MEDS: busPIRone HCl 5 MG TABLET PO ×2 (08:28→21:04)
[2021-05-18] MEDS: Gabapentin 300 MG CAPSULE 600 MG PO ×3 (08:28→21:05)
[2021-05-18] MEDS: predniSONE 20 MG TABLET 40 MG PO (08:28)
[2021-05-18] MEDS: PHENobarbitaL 15 MG TABLET PO ×2 (08:29→21:04)
[2021-05-18] MEDS: Tamsulosin HCL 0.4 MG CAPSULE PO (08:29)
[2021-05-18] MEDS: Insulin Lispro 100 UNIT/ML 3 ML VIAL 10 UNIT SUBCUT ×4 (08:39→21:08)
--- NOTE | 2021-05-18 09:42 | P.PNIM_ITS ---
Subjective Subjective Date of Service: 05/18/21 Interval History: cc: ams interval history: weak, difficulty ambualting Cardiovascular Cardiovascular: Reports no additional cardiovascular complaints Respiratory Respiratory: Reports no additional respiratory complaints Physical Exam Vital Signs: Vital Signs: Last Vital Signs Temp 97.8 F 05/18/21 07:25 Pulse 82 05/18/21 08:21 Resp 20 05/18/21 08:21 BP 105/61 05/18/21 07:25 Pulse Ox 97 05/18/21 07:25 BMI result Body Mass Index 89.2 General: AO X 3, Resp:? cta bilateral, no accessory muscles used CVS: S1,S2,RRR GI: soft, non tender, non distended Neuro:? motor grossly intact, alert, mild tremor Psych: appropriate affect, appropriate insight? Objective Data Active Medications Albuterol/Ipratropium (Albuterol/Iprat 2.5/0.5mg 3 Ml Ampul.Neb) 3 ml INHALE RQ4H WHILE AWAKE [facility] Last Admin: 05/18/21 08:21 Dose: 3 ml Documented by: MCKENZIE Aspirin (Aspirin Enteric Coated 81 Mg Tablet.) 81 mg PO BEDTIME [facility] Last Admin: 05/17/21 21:05 Dose: 81 mg Documented by: ZANDRA Atorvastatin Calcium (Atorvastatin Calcium 10 Mg Tablet) 10 mg PO BEDTIME [facility] Last Admin: 05/17/21 21:04 Dose: 10 mg Documented by: ZANDRA Buspirone HCl (Buspirone Hcl 5 Mg Tablet) 5 mg PO BID [facility] Last Admin: 05/18/21 08:28 Dose: 5 mg Documented by: SHERRI Enoxaparin Sodium (Enoxaparin Sodium 40 Mg/0.4 Ml Syringe) 40 mg SUBCUT Q24H [facility] Last Admin: 05/17/21 12:04 Dose: 40 mg Documented by: SHERRI Folic Acid (Folic Acid 1 Mg Tablet) 1 mg PO BEDTIME [facility] Last Admin: 05/17/21 21:05 Dose: 1 mg Documented by: ZANDRA Gabapentin (Gabapentin 300 Mg Capsule) 600 mg PO TID [facility] Last Admin: 05/18/21 08:28 Dose: 600 mg Documented by: SHERRI Insulin Glargine (Insulin Glargine,Hum.Rec.Anlog 100 Unit/Ml 10 Ml Vial) 45 unit SUBCUT BEDTIME [facility] Last Admin: 05/17/21 21:06 Dose: 45 unit Documented by: ZANDRA Insulin Human Lispro (Insulin Lispro 100 Unit/Ml 3 Ml Vial) 0 unit SUBCUT QIDACHS [facility]; Protocol Last Admin: 05/18/21 08:11 Dose: Not Given Documented by: SHERRI Non-Admin Reason: No Insulin Coverage Insulin Human Lispro (Insulin Lispro 100 Unit/Ml 3 Ml Vial) 10 unit SUBCUT QIDACHS [facility] Last Admin: 05/18/21 08:39 Dose: 5 unit Documented by: SHERRI Comments: per md Medication (No Benzodiazepines) 1 each MISCELLANE DAILY [facility]; Protocol Multivitamins/Vitamin C (Multivitamin Tablet) 1 tab PO DAILY [facility] Last Admin: 05/18/21 08:28 Dose: 1 tab Documented by: SHERRI Nystatin (Nystatin Powder 15 Gm Bottle) 1 appl TOPICAL BID [facility]; Protocol Last Admin: 05/18/21 08:30 Dose: Not Given Documented by: SHERRI Non-Admin Reason: Patient Refused Omeprazole (Omeprazole 20 Mg Capsule.) 20 mg PO BID@0630,1630 [facility] Last Admin: 05/18/21 05:39 Dose: 20 mg Documented by: ZANDRA Phenobarbital (Phenobarbital 15 Mg Tablet) 15 mg PO DAILY [facility]; Protocol Phenobarbital (Phenobarbital 15 Mg Tablet) 15 mg PO BID [facility]; Protocol Stop: 05/18/21 21:01 Last Admin: 05/18/21 08:29 Dose: 15 mg Documented by: SHERRI Prednisone (Prednisone 20 Mg Tablet) 40 mg PO DAILY [facility] Last Admin: 05/18/21 08:28 Dose: 40 mg Documented by: SHERRI Tamsulosin HCl (Tamsulosin Hcl 0.4 Mg Capsule) 0.4 mg PO DAILY [facility] Last Admin: 05/18/21 08:29 Dose: 0.4 mg Documented by: SHERRI Thiamine HCl (Thiamine Hcl 100 Mg Tablet) 100 mg PO BEDTIME [facility] Last Admin: 05/17/21 21:05 Dose: 100 mg Documented by: ZANDRA Labs CBC & Chem 7: 05/18/21 05:29 05/18/21 05:29 Labs: Laboratory Results - last 24 hr 05/17/21 05/17/21 05/17/21 11:18 15:25 20:17 MCV MCH MCHC RDW Plt Count MPV Absolute Nucleated RBC Nucleated RBC % (auto) Anion Gap Estim Creat Clear Calc Estimated GFR POC Glucose 319 H 287 H 228 H Fasting Glucose Calcium 05/18/21 05/18/21 05/18/21 05:29 05:29 07:26 MCV 92.8 MCH 30.7 MCHC 33.1 RDW 15.0 Plt Count 257 MPV 8.4 L Absolute Nucleated RBC 0.050 H Nucleated RBC % (auto) 0.6 H Anion Gap 8 L Estim Creat Clear Calc 157.6 Estimated GFR > 60 POC Glucose 118 H Fasting Glucose 136 H D Calcium 8.5 D Assessment and Plan (1) Acute hyponatremia: Status: Acute Assessment and Plan: 65M admitted for ams, found to have severe hyponatremia, sodium corrected slowly, downgraded to medical floor, now complaining of sob/wheeze, withdrawal toxic-metabolic encephalopathy due to alcohol intoxication resolved hyponatremia resolved LAUREN likely hypovolemic resolved, jacinto-i on hold acute decompensation of COPD improved, changed to prednisone aclohol dependence with withdrawal phenobarb completed resolved DM basal bolus insulin moderate to severe with chronic diastolic chf monitor fluid status bph flomax hld statin morbid obesity weight loss recommended steatohepatitis afld and nafld dvt prophylaxis - lovenox dispo - likely to need rehab, but not interested at this time, alternatively would go home with vna Quality Stroke Does the patient have a stroke diagnosis?: No VTE Prior VTE?: No VTE Risk Level:: Medical - moderate - high VTE Device Contraindication: Treatment Not Indicated VTE Drug Contraindication: N/A - Med Ordered
[2021-05-18 11:14] LABS: Glucose, Whole Blood 209 mg/dL (60-115)
[2021-05-18 11:58] VITALS: BP 115/78; RESP 18; TEMP 37.1; O2SAT 98
[2021-05-18] MEDS: Enoxaparin Sodium 40 MG/0.4 ML SYRINGE SUBCUT (12:32)
[2021-05-18] MEDS: Insulin Lispro 100 UNIT/ML 3 ML VIAL SUBCUT ×3 (12:32→21:08)
[2021-05-18 16:00] VITALS: BP 102/58; PULSE 82; RESP 20; TEMP 36.4; O2SAT 93
[2021-05-18 16:17] LABS: Glucose, Whole Blood 361 mg/dL (60-115)
--- NOTE | 2021-05-18 16:57 | P.PNNP_ITS ---
Subjective Subjective Date of Service: 05/18/21 Interval history: no events Hyponatremia resolved Physical Exam Vital Signs: Vital Signs: Last Vital Signs Temp 97.5 F 05/18/21 16:00 Pulse 82 05/18/21 16:00 Resp 20 05/18/21 16:00 BP 102/58 L 05/18/21 16:00 Pulse Ox 93 05/18/21 16:00 BMI result Body Mass Index 89.2 Const: General: comfortable and ill appearing Nutritional Appearance: average body habitus Resp: Effort & Inspection: normal respiratory effort and no cough Auscult ation: clear to auscultation bilaterally Cardio: Jugular venous distension: no JVD Palpation: no palpable S3 Rate: regular rate Rhythm: regular rhythm Heart sounds: no click and no rubs GI: Inspection: Yes normal to inspection Palpation (GI): Soft to palpation, not firm, nontender, no guarding and not rigid Percussion: Yes normal to percussion Auscultation: normal bowel sounds Extrem: Right upper extremity: No no edema Objective Data Labs CBC & Chem 7: 05/18/21 05:29 05/18/21 05:29 Labs: Laboratory Results - last 24 hr 05/17/21 05/18/21 05/18/21 20:17 05:29 05:29 WBC 8.7 RBC 3.61 L Hgb 11.1 L Hct 33.5 L MCV 92.8 MCH 30.7 MCHC 33.1 RDW 15.0 Plt Count 257 MPV 8.4 L Absolute Nucleated RBC 0.050 H Nucleated RBC % (auto) 0.6 H Sodium 137 Potassium 3.5 D Chloride 96 Carbon Dioxide 37 H Anion Gap 8 L BUN 21 H Creatinine 0.83 Estim Creat Clear Calc 157.6 Estimated GFR > 60 POC Glucose 228 H Fasting Glucose 136 H D Calcium 8.5 D 05/18/21 05/18/21 05/18/21 07:26 11:07 16:12 WBC RBC Hgb Hct MCV MCH MCHC RDW Plt Count MPV Absolute Nucleated RBC Nucleated RBC % (auto) Sodium Potassium Chloride Carbon Dioxide Anion Gap BUN Creatinine Estim Creat Clear Calc Estimated GFR POC Glucose 118 H 209 H 361 H* Fasting Glucose Calcium Procedures Date of Service Date of Service: 05/18/21 Assessment & Plan Assessment and plan (1) Acute hyponatremia: Status: Acute (2) Metabolic acidosis: Status: Acute (3) Alcohol abuse: Status: Acute Assessment and Plan: 1) Hyponatremia with normal serum Osm. Serum Osm 296, Euosmolar hyponatremia probably due to hyperglycemia Also some component of hypovolemia 2) Hyperkalemia 2/2 hyperglycemia 2/2 reduced distal tubule delivery of Na and Water 3) MEtabolic acidosis Osm gap 5 Most likely due to Ethanol. Alcoholic (keto) acidosis Urine Ketones > 80 ! Serum ACetone negative; Beta hydoxy butyrate - not available Keep I >O , Watch blood sugar and AG Acidosis stands corrected Plan: please administer 0.9% saline x1 liter Restrict Hypotonic fluids (water and juice restriction) encourage protein intake. monitor serum glucose and keep under better control Time Spent With Patient Time: Total time spent is greater than 50% in coordination of care (as documented) at patient's floor/unit and/or counseling patient: Progress Note: Quality Stroke Does the patient have a stroke diagnosis?: No
[2021-05-18 19:28] VITALS: BP 117/58; PULSE 91; RESP 18; TEMP 36.6; O2SAT 99
[2021-05-18 20:31] LABS: Glucose, Whole Blood 295 mg/dL (60-115)
[2021-05-18] MEDS: Aspirin Enteric Coated 81 MG TABLET.DR PO (21:04)
[2021-05-18] MEDS: Thiamine HCL 100 MG TABLET PO (21:04)
[2021-05-18] MEDS: Atorvastatin Calcium 10 MG TABLET PO (21:04)
[2021-05-18] MEDS: Folic Acid 1 MG TABLET PO (21:04)
[2021-05-18] MEDS: Insulin Glargine,Hum.rec.anlog 100 UNIT/ML 10 ML VIAL 45 UNIT SUBCUT (21:08)
[2021-05-19 00:33] VITALS: BP 151/64; PULSE 77; RESP 18; TEMP 36.5; O2SAT 100
[2021-05-19 02:59] VITALS: BP 119/60; PULSE 83; RESP 18; TEMP 36.3; O2SAT 97
[2021-05-19 05:55] LABS: Hematocrit 32.8 % (42.0-52.0); Hemoglobin 10.9 g/dl (14.0-18.0); Mean Corpuscular HGB Conc 33.2 g/dl (31.0-36.0); Mean Corpuscular Hemoglobin 30.8 pg (27.0-33.0); Mean Corpuscular Volume 92.7 fL (80.0-98.0); Mean Platelet Volume 8.4 fL (9.4-12.4); NRBC Pct Auto 0.2 /100WBC (0.0-0.2); Platelet Count 267 X10*3/uL (160-400); Red Blood Count 3.54 X10*6/uL (4.60-5.80); Red Cell Distribution Width 15.1 % (11.0-16.0); White Blood Count 9.1 X10*3/uL (4.8-10.8)
[2021-05-19] MEDS: Omeprazole 20 MG CAPSULE.DR PO (05:56)
[2021-05-19 06:36] LABS: Anion Gap 10 (12-20); Blood Urea Nitrogen 19 mg/dL (9-16); Calcium 8.6 mg/dL (8.4-10.2); Carbon Dioxide 35 mmol/L (22-29); Chloride 94 mmol/L (96-108); Creatinine Clr Calc Pharmacy 159.5; Estimated Glomerular Filt Rate > 60; Glucose Fasting 177 mg/dL (60-99); Potassium 3.6 mmol/L (3.3-5.1); Sodium 135 mmol/L (135-145)
[2021-05-19 07:01] VITALS: BP 141/74; PULSE 88; RESP 20; TEMP 36.1; O2SAT 98
[2021-05-19 07:28] LABS: Glucose, Whole Blood 131 mg/dL (60-115)
[2021-05-19] MEDS: Albuterol/Iprat 2.5/0.5MG 3 ML AMPUL.NEB INHALE (08:42)
[2021-05-19] MEDS: PHENobarbitaL 15 MG TABLET PO (08:48)
[2021-05-19] MEDS: Tamsulosin HCL 0.4 MG CAPSULE PO (08:49)
[2021-05-19] MEDS: Multivitamin TABLET 1 TAB PO (08:49)
[2021-05-19] MEDS: Gabapentin 300 MG CAPSULE 600 MG PO (08:49)
[2021-05-19] MEDS: busPIRone HCl 5 MG TABLET PO (08:50)
[2021-05-19] MEDS: predniSONE 20 MG TABLET 40 MG PO (08:50)
--- NOTE | 2021-05-19 09:47 | PM.DS ---
DS: Providers Provider Date of Service: 05/19/21 Date of admission: 05/12/21 15:09 Primary care physician: Jaylen Cummings MD Consults: 05/13/21 03:50 Consult to Nephrology Routine Consulting Provider: Arminda Rodriguez Reason for consultation: Metabolic acidosis Has provider been notified: Yes DS: Diagnosis Discharge Diagnosis (1) Acute hyponatremia: Status: Acute (2) Metabolic acidosis: Status: Acute (3) Alcohol abuse: Status: Acute DS: Summary Hospital Course Hospital Course: Patient was admitted for toxic metabolic encephalopathy due to alcohol intoxication and severe hyponatremia to the intensive care unit, complicated by acute kidney injury from hypovolemia. His sodium was corrected at an appropriate rate, encephalopathy resolved. He was and downgraded to medical floor. Course was complicated by acute decompensation of COPD which improved with steroids and bronchodilators. Course was further complicated by alcohol dependence with withdrawal which resolved with phenobarbital treatment. Patient is now back to baseline and will be discharged to home with visiting services. Time Spent with Patient Time attestation: Total time spent providing and/or coordinating discharge services: Discharge coordination time: Greater than 30 minutes Quality: Stroke Does the patient have a stroke diagnosis?: No Physical Exam Vital Signs: Vital Signs: Last Vital Signs Temp 97 F 05/19/21 07:01 Pulse 88 05/19/21 07:01 Resp 20 05/19/21 07:01 BP 141/74 H 05/19/21 07:01 Pulse Ox 98 05/19/21 07:01 BMI result Body Mass Index 89.2 General: AO X 3, no acute distress Resp: CTA bilateral, no accessory muscles used CVS: S1,S2,RRR GI: soft, non tender, non distended Neuro: motor grossly intact, alert Psych: appropriate affect, appropriate insight DS: Data Data Completed and Pending Labs on day of discharge: Laboratory Results - last 24 hr 05/18/21 05/18/21 05/18/21 11:07 16:12 19:31 WBC RBC Hgb Hct MCV MCH MCHC RDW Plt Count MPV Absolute Nucleated RBC Nucleated RBC % (auto) Sodium Potassium Chloride Carbon Dioxide Anion Gap BUN Creatinine Estim Creat Clear Calc Estimated GFR POC Glucose 209 H 361 H* 295 H Fasting Glucose Calcium 05/19/21 05/19/21 05/19/21 05:15 05:15 07:24 WBC 9.1 RBC 3.54 L Hgb 10.9 L Hct 32.8 L MCV 92.7 MCH 30.8 MCHC 33.2 RDW 15.1 Plt Count 267 MPV 8.4 L Absolute Nucleated RBC 0.020 H Nucleated RBC % (auto) 0.2 Sodium 135 Potassium 3.6 Chloride 94 L Carbon Dioxide 35 H Anion Gap 10 L BUN 19 H Creatinine 0.82 Estim Creat Clear Calc 159.5 Estimated GFR > 60 POC Glucose 131 H Fasting Glucose 177 H Calcium 8.6 Discharge Plan Discharge Patient Disposition: Home Health Service Discharge Diagnosis: etoh withdrawal, hyponatremia, copd Referrals: Name,MD Jaylen [Primary Care Provider] - 1 Week Discharge Medications: Continued multivitamin Tablet 1 tab PO QAM RF: 0 albuterol sulfate 2.5 mg /3 mL (0.083 %) solution for nebulization 1 amp inhalation QID RF: 0 thiamine HCl (vitamin B1) 100 mg tablet 1 tab PO BEDTIME RF: 0 (DME) FreeStyle Lite Strips Strip MISCELLANEOUS QID RF: 0 insulin aspart U-100 [Novolog U-100 Insulin aspart] 100 unit/mL solution 15 unit subcut TIDAC RF: 0 simvastatin 20 mg tablet 1 tab PO BEDTIME RF: 0 lisinopril 10 mg tablet 1 tab PO QAM RF: 0 gabapentin 300 mg capsule 2 cap PO TID RF: 0 folic acid 1 mg tablet 1 tab PO QPM RF: 0 albuterol sulfate 90 mcg/actuation HFA aerosol inhaler 2 puff inhalation QID PRN (Reason: Wheezing) RF: 0 Fish Oil 340-1,000 mg capsule 1 cap PO QAM RF: 0 omeprazole 20 mg capsule,delayed release(DR/EC) 1 cap PO BID Qty: 0 RF: 0 buspirone 5 mg tablet 5 mg PO BID RF: 0 aspirin 81 mg tablet,delayed release (DR/EC) 1 tab PO BEDTIME RF: 0 Lantus U-100 Insulin 100 unit/mL solution 45 unit subcut BEDTIME RF: 0 oxycodone 5 mg tablet 5 mg PO Q4H PRN (Reason: pain) Qty: 10 RF: 0 tamsulosin 0.4 mg capsule 1 cap PO DAILY RF: 0 ramelteon 8 mg tablet 1 tab PO BEDTIME RF: 0 celecoxib 50 mg capsule 1 cap PO BID RF: 0 Discharge Orders: Discharge Order (Routine); Ordered 05/19/21 Ordered By: Ervin Donaldson Diet: advance to usual diet Activity on Discharge: As tolerated Stand Alone Forms: Patient Portal Discharge page Care Plan Goals: recovery Health Concerns: [id number], etoh, copd Plan of Treatment: fluid restrict, avoid etoh Assessment: see above
--- NOTE | 2021-05-19 09:50 | W.MHC.F2F ---
Service Date Service Date: 05/19/21 Encounter Date of encounter: 05/19/21 Reasons for Services Signs and symptoms assessed: weakness from hosptial stay Reason for senior care: diabetic teaching, medication management, medication treatment and teach disease management Reason for physical therapy: home safety and mobility, therapeutic exercises and restore joint function Homebound: Leaving the home is medically contraindicated at this time without the asist of a device and/or another person due th the listed conditions above and below. Reason homebound: unsteady gait / fall risk Certification: Based on the above findings, I certify that this patient is confined to the home and needs intermittent senior care care, physical therapy and/or speech therapy, or continues to need occupational therapy. The patient is under my care, and I have initiated the establishment of the plan of care. The patient will be followed by a physician who will periodically review the plan of care.
--- NOTE | 2021-05-19 10:20 | MHC.CM.PN ---
CM MET W/PT TO DISCUSS DCP, PT IS DECLINING ANY HOME SERVICES AND WILL D/C HOME SELF-CARE, CM WILL SET UP TRANSPORT VIA C SHUTTLE.
--- NOTE | 2021-05-19 11:04 | PC.NURSE ---
Pt TLC removed to left subclavian,tolerated well.Occlusive dressing applied.Blue tip intact
--- NOTE | 2021-05-20 12:04 | MHC.CM.PN ---
POST-DC NOTE [facility] ARE OFFERING AND WILL ATTEMPT TO START SERVICES WITH PATIENT. V[facility]CTOR OF [facility] ([phone]) IS AWARE AND IN AGREEMENT WITH PLAN.
== END 2021-05-19 11:30 | disposition home health service (06) | DRG 682 ==
LOC: HO.ED 14:11 → HO.EDOVER 15:37 → HO.ICU 16:12 → HO.IMC 05-13 13:52 → HO.ICU 05-13 15:49 → HO.S3 05-13 16:27
PROVIDERS: Student in an Organized Health Care Education/Training Program; Admitting Provider Anesthesiology; Emergency Provider Emergency Medicine; PCP Internal Medicine Geriatric Medicine; Visit Provider Internal Medicine
DX: N17.9 Acute kidney failure, unspecified (principal); G92.8 Other toxic encephalopathy; E87.1 Hypo-osmolality and hyponatremia; M62.82 Rhabdomyolysis; E87.2 Acidosis; F10.239 Alcohol dependence with withdrawal, unspecified; I50.32 Chronic diastolic (congestive) heart failure; J44.1 Chronic obstructive pulmonary disease with (acute) exacerbation; Z68.45 Body mass index [BMI] 70 or greater, adult; G47.33 Obstructive sleep apnea (adult) (pediatric); E78.5 Hyperlipidemia, unspecified; I35.0 Nonrheumatic aortic (valve) stenosis; Z20.822 Contact with and (suspected) exposure to COVID-19; N40.0 Benign prostatic hyperplasia without lower urinary tract symptoms; E66.01 Morbid (severe) obesity due to excess calories; K70.0 Alcoholic fatty liver; K76.0 Fatty (change of) liver, not elsewhere classified; F10.229 Alcohol dependence with intoxication, unspecified; F17.210 Nicotine dependence, cigarettes, uncomplicated; Z71.6 Tobacco abuse counseling; Z79.1 Long term (current) use of non-steroidal anti-inflammatories (NSAID); Z79.4 Long term (current) use of insulin; Z79.82 Long term (current) use of aspirin; Z79.899 Other long term (current) drug therapy
CPT/HCPCS: 36415; 70450; 71045; 72125; 80048; 80053; 80061; 80076; 80143; 80179; 81001; 82009; 82040; 82077; 82550; 82803; 82947; 83605; 83735; 83880; 83930; 84100; 84145; 84300; 84484; 85025; 85027; 87635; 93005; 94640; 96361; 96374; 96375; 96376; 97162; 99285; 99291; C1758; J1650; J2060; J2405; J2560; J2765; J2930; J3010; J3475

== ENCOUNTER 2021-06-01 06:38 | Inpatient (IN) | payer OTHER, SELFPAY ==
[2021-06-01] VITALS (9 sets, daily range): BP systolic 112–165; BP diastolic 39–80; PULSE 88–105; RESP 14–22; TEMP 36.6–36.8; O2SAT 88–98; BMI 34.4
--- NOTE | ~2021-06-01 | XR_ITS ---
EXAMINATION: XR CHEST CLINICAL INFORMATION: Central line placement COMPARISON: Previous chest x-ray from earlier the same day TECHNIQUE: Frontal view of the chest was obtained. FINDINGS: There is a new right jugular line with tip projecting over the SVC. There is no pneumothorax. The cardiac and mediastinal contours are normal. The lungs are clear. There is no pleural effusion. There is a right shoulder replacement. XR/XR chest 1V IMPRESSION: Right jugular line tip projects over SVC. No pneumothorax.
--- NOTE | ~2021-06-01 | CT_ITS ---
EXAMINATION: CT CERVICAL SPINE WITHOUT CONTRAST CLINICAL INFORMATION: Trauma. COMPARISON: Previous CT scan most recent 05/12/2021 TECHNIQUE: Axial images through the cervical spine without contrast. Sagittal and coronal reconstructions on the technologist workstation were performed. Initial images were limited due to motion artifact and repeat imaging was performed. This CT examination was performed using dose optimization techniques as appropriate, variously including the following: *Automated exposure control *Adjustment of mA and/or kV according to patient size (this includes techniques or standardized protocols for targeted exams where dose is matched to indication/reason for exam; i.e. extremities or head) *Use of iterative reconstruction technique DLP: 1500 mGy-cm FINDINGS: Bone alignment is normal. No fracture or dislocation is seen. There is mild degenerative spondylosis at C4-C5 C5-C6 and C6-C7. Prevertebral soft tissues are normal. There is bilateral carotid calcification. There is a right jugular central line. CT/CT cervical spine wo con IMPRESSION: Limited exam due to motion artifact. Degenerative changes. No fracture or dislocation seen. Fleischner guidelines were followed.
--- NOTE | ~2021-06-01 | XR_ITS ---
EXAMINATION: XR CHEST CLINICAL INFORMATION: Chest pain COMPARISON: Previous chest x-ray most recent from earlier this month TECHNIQUE: Frontal view of the chest was obtained. FINDINGS: The cardiac and mediastinal contours are stable. The lungs are clear. There is no pleural effusion or pneumothorax. There are old right rib fractures. There is a right shoulder replacement. XR/XR chest 1V IMPRESSION: No evidence for acute disease in the chest.
--- NOTE | ~2021-06-01 | CT_ITS ---
EXAMINATION: CT HEAD WITHOUT CONTRAST CLINICAL INFORMATION: Fall. Mental status change. COMPARISON: Previous head CT most recent 05/12/2021 TECHNIQUE: Contiguous axial imaging was performed from the skull base to vertex without intravenous administration of contrast. This CT examination was performed using dose optimization techniques as appropriate, variously including the following: *Automated exposure control *Adjustment of mA and/or kV according to patient size (this includes techniques or standardized protocols for targeted exams where dose is matched to indication/reason for exam; i.e. extremities or head) *Use of iterative reconstruction technique DLP: 970 mGy-cm FINDINGS: There is no evidence of an extra-axial collection. There is no evidence of intra-axial or extra-axial hemorrhage. The ventricles and extra-axial CSF spaces are slightly prominent suggestive of mild generalized atrophy. Garcia-white matter differentiation is normal. No infarct, mass or mass effect is seen. There is a small calcification or ossification adjacent to the left posterior cerebral falx axial image 62 series 3 that is stable. No skull fracture is seen. Visualized paranasal sinuses, mastoid air cells and middle ears are clear. There is mild skin thickening and soft tissue swelling adjacent to the left posterior parietal bone that appears unchanged. CT/CT head/brain wo con IMPRESSION: No acute findings. Mild generalized atrophy.
--- NOTE | 2021-06-01 06:49 | ECG_ITS ---
Test Reason : CHEST PAIN Blood Pressure : / mmHG Vent. Rate : 098 BPM Atrial Rate : 098 BPM P-R Int : 166 ms QRS Dur : 068 ms QT Int : 338 ms P-R-T Axes : 072 021 084 degrees QTc Int : 431 ms Sinus rhythm with occasional Premature ventricular complexes Otherwise normal ECG When compared with ECG of 12-MAY-2021 09:32, Premature ventricular complexes are now Present Referred By: Donavon Cooper Electronically Signed By:Gabino Carter
--- NOTE | 2021-06-01 06:52 | ED_ITS ---
HPI - Chest Pain General Chief Complaint: Chest Pain Stated Complaint: CP/SOB (CHF hX) Time Seen by Provider: 06/01/21 06:49 Source: patient Mode of arrival: EMS Limitations: no limitations History of Present Illness HPI narrative: This is a 65-year-old male with a history of congestive heart failure as well as alcohol abuse, who had been in the hospital till about a week ago for recent admission for alcohol withdrawal. Patient complains of discomfort in his chest for the last few days. He says it is a pressure feeling. He initially thought he just had chest congestion. He does have a history of COPD and has a chronic cough. He did drink about 5 drinks yesterday while watching a football game. He actually admits to drinking daily for the last 5 days. He denies feeling like he is in withdrawal. Does have some nausea, denies any sweats or increased shortness of breath. He denies any swelling in his extremities. He denies abdominal pain. He denies diarrhea. Denies fever. Patient notes he has not eaten in 2 days, wonders abuse and alcohol withdrawal but asks for breakfast Related Data Home Medications Medication Instructions Recorded Confirmed albuterol sulfate 1 amp INHALATION QID 12/29/20 06/01/21 albuterol sulfate 90 mcg/actuation 2 puff INHALATION QID PRN 12/29/20 06/01/21 aerosol inhaler blood sugar diagnostic (FreeStyle 12/29/20 02/04/21 Lite Strips) folic acid 1 mg tablet 1 tab PO DAILY@1700 12/29/20 06/01/21 gabapentin 300 mg capsule 2 cap PO TID 12/29/20 06/01/21 insulin aspart U-100 100 unit/mL 15 unit SUBCUT TIDAC 12/29/20 06/01/21 subcutaneous solution (Novolog U-100 Insulin aspart) lisinopril 10 mg tablet 1 tab PO DAILY 12/29/20 06/01/21 multivitamin 1 tab PO DAILY 12/29/20 06/01/21 omega-3 fatty acids-fish oil 340 1 cap PO DAILY 12/29/20 06/01/21 mg-1,000 mg capsule (Fish Oil) simvastatin 20 mg tablet 1 tab PO BEDTIME 12/29/20 06/01/21 thiamine HCl (vitamin B1) 100 mg 1 tab PO BEDTIME 12/29/20 06/01/21 tablet aspirin 81 mg tablet,delayed 1 tab PO BEDTIME 02/04/21 06/01/21 release buspirone 5 mg tablet 5 mg PO BID 02/04/21 06/01/21 insulin glargine 100 unit/mL 45 unit SUBCUT BEDTIME 02/04/21 06/01/21 subcutaneous solution (Lantus U-100 Insulin) celecoxib 50 mg capsule 1 cap PO BID 05/12/21 06/01/21 ramelteon 8 mg tablet 1 tab PO BEDTIME 05/12/21 06/01/21 tamsulosin 0.4 mg capsule 1 cap PO DAILY@1700 05/12/21 06/01/21 omeprazole 20 mg capsule,delayed 1 cap PO BID@0630,1630 06/01/21 06/01/21 release Allergies Allergy/AdvReac Type Severity Reaction Status Date / Time ENVIRONMENTAL Allergy Mild SNEEZING, Uncoded 09/26/20 17:14 WATERY EYES Review of Systems Review of Systems: Yes all other systems are reviewed and are negative Constitutional: Constitutional: Reports as per HPI and Denies fever(s) Eyes: Eyes: Reports as per HPI and Reports no additional eye complaints ENT: Reports system reviewed and no additional complaints, except as documented, Reports as per HPI, Denies nasal congestion, Denies nasal discharge and Denies sore throat Cardiovascular: Cardiovascular: Reports as per HPI, Reports chest pain and Reports dyspnea Respiratory: Respiratory: Reports as per HPI, Reports cough and Reports dyspnea Gastrointestinal: Gastrointestinal: Reports as per HPI, Denies abdominal pain, Denies diarrhea, Reports nausea and Denies vomiting Genitourinary: Genitourinary: Reports as per HPI, Denies hematuria, Denies dysuria and Denies urinary frequency Musculoskeletal: Musculoskeletal: Reports no additional musculoskeletal complaints and Denies numbness Comments: No lower extremity swelling Integumentary/Breasts: Skin/Breast: Reports as per HPI and Denies rash Neurologic: Reports as per HPI, Denies focal weakness and Denies numbness Psychiatric: Psychiatric: Reports no additional psychiatric complaints and Reports as per HPI Endocrine: Endocrine: Reports no additional endocrine complaints and Reports as per HPI Hematologic/Lymphatic: Hematologic/Lymphatic: Reports no additional hematologic/lymphatic complaints, Reports as per HPI and Reports other (No peripheral edema) [facility] Past Medical History Medical History LAUREN (acute kidney injury) Alcohol abuse COPD (chronic obstructive pulmonary disease) Diabetes mellitus type 1 Diastolic dysfunction Diastolic heart failure HLD (hyperlipidemia) Hypertension Nonrheumatic aortic (valve) stenosis Obesity Family History Family History Father Diabetes Mother Diabetes Social History Social History Household Members: None Housing: House Do you presently have visiting nurse or other home services: No Alcohol intake: current Alcohol intake frequency: a few times a month Alcohol type: hard liquor Patient Tobacco Use Status: Current everyday Tobacco user Tobacco use type: Cigarette Second Hand Smoke Exposure: No Use of substances other than those prescribed or required for medical reasons: No Advance Directives: Yes Advance Directives on File: Yes Advance Directives Date on File: 10/11/20 service: No Current occupational status: disabled Physical Exam Vital Signs: Vital Signs: Last Vital Signs Temp 98.0 F 06/01/21 16:08 Pulse 104 H 06/01/21 16:08 Resp 22 H 06/01/21 16:08 BP 130/39 L 06/01/21 16:08 Pulse Ox 88 L 06/01/21 16:08 BMI result Body Mass Index 34.4 Procedures Central Line Placement Right IJ: Time Out Performed: Yes Patient Placed on Monitor/Pulse Ox: Yes Prep: mask, gown and gloves Central Line Prep: Chlorhexidine scrub and sterile drapes applied Local Anesthetic: lidocaine 1% Amount of anesthesia used (mL): 5 Ultrasound Used for Placement: Yes Central Line Lumen Inserted: triple Post Procedure: sutured in place, good blood return, all ports aspirated, flushed, capped and sterile dressing applied Post Procedure X-Ray: tip of catheter in good position Patient Tolerated Procedure: well and no complications Complications: none MDM - Chest Pain MDM Narrative Medical decision making narrative: Patient states he had not eaten in a few days. Patient had breakfast here, although he complained was cold by the time he got to and after central line was placed. Patient had no prophylaxis and so after looking with ultrasound at his cephalic vein and attempted unsuccessfully to place an IV catheter, a central line was placed in his right IJ as noted in procedure note. The patient at around 10 40 complaint is still being hungry and ask for a lunch tray. He is borderline tachycardic but not tremulous. Magnesium level is slightly low and magnesium IV has been ordered. Sodium was slightly low at 129 and normal saline bolus of 250 mL has been ordered. Troponin is negative. EKG showed no concerning findings. Repeat troponin done 3 hours after the 1st was negative Critical care time for this life-threatening illness exclusive of all other billable procedures was approximately 35 minutes including initial evaluation of the patient, ordering tests, x-ray interpretation, EKG interpretation, medical consultation, documentation, reevaluation. Lab Data Attestation: I reviewed the patient's lab results. Result diagrams: 06/01/21 08:56 06/01/21 08:56 Labs: Lab Results 06/01/21 06/01/21 06/01/21 Range/Units 08:56 08:56 08:56 WBC 6.0 (4.8-10.8) X10*3/uL RBC 3.98 L (4.60-5.80) X10*6/uL Hgb 12.2 L (14.0-18.0) g/dl Hct 35.7 L (42.0-52.0) % MCV 89.7 (80.0-98.0) fL MCH 30.7 (27.0-33.0) pg MCHC 34.2 (31.0-36.0) g/dl RDW 15.8 (11.0-16.0) % Plt Count 244 (160-400) X10*3/uL MPV 8.6 L (9.4-12.4) fL Immature Gran % (Auto) 0.7 H (0.0-0.4) % Neut % (Auto) 70.8 (45-73) % Lymph % (Auto) 14.6 L (20-40) % [place] % (Auto) 9.7 (2-11) % Eos % (Auto) 3.0 (0-4) % Baso % (Auto) 1.2 (0-2) % Lymph # (Auto) 0.9 L (1.2-4.9) X10*3/uL [place] # (Auto) 0.6 (0.1-1.2) X10*3/uL Eos # (Auto) 0.2 (0.0-0.4) X10*3/uL Baso # (Auto) 0.1 (0.0-0.2) X10*3/uL Abs Immat Gran (auto) 0.04 H (0.00-0.03) X10*3/uL Absolute Neuts (auto) 4.3 (2.0-8.3) x10*3/uL Absolute Nucleated RBC 0.000 (0.0-0.012) X10*3/uL Nucleated RBC % (auto) 0.0 (0.0-0.2) /100WBC Sodium 129 L (135-145) mmol/L Potassium 3.9 (3.3-5.1) mmol/L Chloride 88 L (96-108) mmol/L Carbon Dioxide 29 (22-29) mmol/L Anion Gap 16 (12-20) BUN 7 L D (9-16) mg/dL Creatinine 0.91 (0.5-1.4) mg/dL Estim Creat Clear Calc 91.0 Estimated GFR > 60 Random Glucose 180 H D (60-115) mg/dL Calcium 8.7 (8.4-10.2) mg/dL Magnesium 1.5 L (1.6-2.6) mg/dL Total Bilirubin (0.0-1.0) mg/dL Direct Bilirubin (0.0-0.5) mg/dL AST (5-37) U/L ALT (0-40) U/L Alkaline Phosphatase (39-117) U/L Troponin I High Sens 18.0 (<3.5-35.0) ng/L B-Natriuretic Peptide 76 (<100) pg/mL Total Protein (6.5-8.0) g/dL Albumin (3.5-5.0) g/dL COVID-19 (ELIER) (Negative) COVID-19 Clin Com 06/01/21 06/01/21 06/01/21 Range/Units 08:59 10:05 10:08 WBC (4.8-10.8) X10*3/uL RBC (4.60-5.80) X10*6/uL Hgb (14.0-18.0) g/dl Hct (42.0-52.0) % MCV (80.0-98.0) fL MCH (27.0-33.0) pg MCHC (31.0-36.0) g/dl RDW (11.0-16.0) % Plt Count (160-400) X10*3/uL MPV (9.4-12.4) fL Immature Gran % (Auto) (0.0-0.4) % Neut % (Auto) (45-73) % Lymph % (Auto) (20-40) % [place] % (Auto) (2-11) % Eos % (Auto) (0-4) % Baso % (Auto) (0-2) % Lymph # (Auto) (1.2-4.9) X10*3/uL [place] # (Auto) (0.1-1.2) X10*3/uL Eos # (Auto) (0.0-0.4) X10*3/uL Baso # (Auto) (0.0-0.2) X10*3/uL Abs Immat Gran (auto) (0.00-0.03) X10*3/uL Absolute Neuts (auto) (2.0-8.3) x10*3/uL Absolute Nucleated RBC (0.0-0.012) X10*3/uL Nucleated RBC % (auto) (0.0-0.2) /100WBC Sodium (135-145) mmol/L Potassium (3.3-5.1) mmol/L Chloride (96-108) mmol/L Carbon Dioxide (22-29) mmol/L Anion Gap (12-20) BUN (9-16) mg/dL Creatinine (0.5-1.4) mg/dL Estim Creat Clear Calc Estimated GFR Random Glucose (60-115) mg/dL Calcium (8.4-10.2) mg/dL Magnesium (1.6-2.6) mg/dL Total Bilirubin 0.4 (0.0-1.0) mg/dL Direct Bilirubin 0.3 (0.0-0.5) mg/dL AST 18 (5-37) U/L ALT 14 (0-40) U/L Alkaline Phosphatase 89 (39-117) U/L Troponin I High Sens (<3.5-35.0) ng/L B-Natriuretic Peptide (<100) pg/mL Total Protein 6.1 L (6.5-8.0) g/dL Albumin 3.7 (3.5-5.0) g/dL COVID-19 (ELIER) Invalid Negative (Negative) COVID-19 Clin Com See Note See Note 06/01/21 Range/Units 10:08 WBC (4.8-10.8) X10*3/uL RBC (4.60-5.80) X10*6/uL Hgb (14.0-18.0) g/dl Hct (42.0-52.0) % MCV (80.0-98.0) fL MCH (27.0-33.0) pg MCHC (31.0-36.0) g/dl RDW (11.0-16.0) % Plt Count (160-400) X10*3/uL MPV (9.4-12.4) fL Immature Gran % (Auto) (0.0-0.4) % Neut % (Auto) (45-73) % Lymph % (Auto) (20-40) % [place] % (Auto) (2-11) % Eos % (Auto) (0-4) % Baso % (Auto) (0-2) % Lymph # (Auto) (1.2-4.9) X10*3/uL [place] # (Auto) (0.1-1.2) X10*3/uL Eos # (Auto) (0.0-0.4) X10*3/uL Baso # (Auto) (0.0-0.2) X10*3/uL Abs Immat Gran (auto) (0.00-0.03) X10*3/uL Absolute Neuts (auto) (2.0-8.3) x10*3/uL Absolute Nucleated RBC (0.0-0.012) X10*3/uL Nucleated RBC % (auto) (0.0-0.2) /100WBC Sodium (135-145) mmol/L Potassium (3.3-5.1) mmol/L Chloride (96-108) mmol/L Carbon Dioxide (22-29) mmol/L Anion Gap (12-20) BUN (9-16) mg/dL Creatinine (0.5-1.4) mg/dL Estim Creat Clear Calc Estimated GFR Random Glucose (60-115) mg/dL Calcium (8.4-10.2) mg/dL Magnesium (1.6-2.6) mg/dL Total Bilirubin (0.0-1.0) mg/dL Direct Bilirubin (0.0-0.5) mg/dL AST (5-37) U/L ALT (0-40) U/L Alkaline Phosphatase (39-117) U/L Troponin I High Sens 16.5 (<3.5-35.0) ng/L B-Natriuretic Peptide (<100) pg/mL Total Protein (6.5-8.0) g/dL Albumin (3.5-5.0) g/dL COVID-19 (ELIER) (Negative) COVID-19 Clin Com Imaging Data Chest x-ray: Radiologist's impression: FINDINGS: The cardiac and mediastinal contours are stable. The lungs are clear. There is no pleural effusion or pneumothorax. There are old right rib fractures. There is a right shoulder replacement. XR/XR chest 1V IMPRESSION: No evidence for acute disease in the chest. ? Chest x-ray status post line placement: Attestation: I personally reviewed and interpreted this imaging study as follows: My impression: Right IJ in good position. No pneumothorax. No acute pathology evident CT head and cervical spine without contrast: Radiologist's impression: No acute pathology FINDINGS: There is no evidence of an extra-axial collection. There is no evidence of intra-axial or extra-axial hemorrhage. The ventricles and extra-axial CSF spaces are slightly prominent suggestive of mild generalized atrophy. Garcia-white matter differentiation is normal. No infarct, mass or mass effect is seen. There is a small calcification or ossification adjacent to the left posterior cerebral falx axial image 62 series 3 that is stable. No skull fracture is seen. Visualized paranasal sinuses, mastoid air cells and middle ears are clear. There is mild skin thickening and soft tissue swelling adjacent to the left posterior parietal bone that appears unchanged. CT/CT head/brain wo con IMPRESSION: No acute findings. Mild generalized atrophy. ECG Data ECG #1: ECG interpretation date: 06/01/21 ECG interpretation time: 07:28 Interpretation: Sinus rhythm with a rate of 98. Occasional PVCs. No ST elevation. Inverted T-wave in lead aVL. Discharge Plan Discharge Clinical Impression: Chest pain, Alcohol withdrawal, Fall, Hypomagnesemia Patient Disposition: Admitted As Inpatient
[2021-06-01] MEDS: Aspirin 81 MG TAB.CHEW 324 MG PO (07:19)
[2021-06-01] MEDS: Ondansetron ODT 4 MG TAB.RAPDIS TRANSLINGU (07:46)
[2021-06-01] MEDS: LORazepam 2 MG/ML VIAL 1 MG IVPUSH ×4 (08:52→12:49)
[2021-06-01] MEDS: ondansetron HCL 4 MG/2 ML VIAL IVPUSH (08:52)
[2021-06-01 09:01] LABS: MANUAL DIFF FLAG NO
[2021-06-01 09:02] LABS: Basophils Absolute Auto 0.1 X10*3/uL (0.0-0.2); Basophils Percent Auto 1.2 % (0-2); Eosinophils Absolute Auto 0.2 X10*3/uL (0.0-0.4); Hematocrit 35.7 % (42.0-52.0); Hemoglobin 12.2 g/dl (14.0-18.0); Imm Gran Abs Auto 0.04 X10*3/uL (0.00-0.03); Imm Gran Pct Auto 0.7 % (0.0-0.4); Lymphocytes Absolute Auto 0.9 X10*3/uL (1.2-4.9); Lymphocytes Percent Auto 14.6 % (20-40); Mean Corpuscular HGB Conc 34.2 g/dl (31.0-36.0); Mean Corpuscular Hemoglobin 30.7 pg (27.0-33.0); Mean Corpuscular Volume 89.7 fL (80.0-98.0); Mean Platelet Volume 8.6 fL (9.4-12.4); Monocytes Absolute Auto 0.6 X10*3/uL (0.1-1.2); Monocytes Percent Auto 9.7 % (2-11); Neutrophils Absolute Auto 4.3 x10*3/uL (2.0-8.3); Neutrophils Percent Auto 70.8 % (45-73); Platelet Count 244 X10*3/uL (160-400); Red Blood Count 3.98 X10*6/uL (4.60-5.80); Red Cell Distribution Width 15.8 % (11.0-16.0)
[2021-06-01 09:28] LABS: B Type Natriuretic Peptide 76 pg/mL (<100)
[2021-06-01 09:41] LABS: Anion Gap 16 (12-20); Blood Urea Nitrogen 7 mg/dL (9-16); Calcium 8.7 mg/dL (8.4-10.2); Carbon Dioxide 29 mmol/L (22-29); Chloride 88 mmol/L (96-108); Estimated Glomerular Filt Rate > 60; Glucose Random 180 mg/dL (60-115); Potassium 3.9 mmol/L (3.3-5.1); Sodium 129 mmol/L (135-145)
[2021-06-01 09:51] LABS: Magnesium 1.5 mg/dL (1.6-2.6)
[2021-06-01 09:55] LABS: COVID-19 Test Invalid (Negative)
[2021-06-01] MEDS: Albuterol/Iprat 2.5/0.5MG 3 ML AMPUL.NEB INHALE ×2 (10:16→19:53)
[2021-06-01] MEDS: methylPREDNISolone Sod Succ 125 MG/2 ML VIAL IVPUSH (10:24)
[2021-06-01 10:26] LABS: COVID-19 Test Negative (Negative)
[2021-06-01 10:32] LABS: Alanine Aminotransferase 14 U/L (0-40); Albumin Level 3.7 g/dL (3.5-5.0); Alkaline Phosphatase 89 U/L (39-117); Aspartate Amino Transferase 18 U/L (5-37); Bilirubin Direct 0.3 mg/dL (0.0-0.5); Bilirubin Total 0.4 mg/dL (0.0-1.0); Total Protein 6.1 g/dL (6.5-8.0)
[2021-06-01 10:38] LABS: Troponin-I High Sensitivity 16.5 ng/L (<3.5-35.0)
[2021-06-01] MEDS: Magnesium Sulfate/H2O 2 GM/50 ML PIGGYBACK IV (11:44)
[2021-06-01] MEDS: 0.9 % Sodium Chloride 250 ML 999 ML IV (11:44)
--- NOTE | 2021-06-01 13:55 | PHA.MEDREC ---
Addendum entered by April Agosto RPh 06/02/21 10:51: Lantus last filled in October,. [facility] pharmacy reports that the last dose they had was 49 units. They said he is the type of patient that will let them know when he runs out of a medication. Novolog is still 15 units TID. Original Note: Pharmacy Consult ? Medication Reconciliation Pharmacy has completed the medication reconciliation.Spoke with patient in ED who states he does not know any of his medications. He says he took his medications this morning. Will follow up in AM with [facility] regarding lantus and novolog dosing.
--- NOTE | 2021-06-01 13:57 | P.HPHOSP_ITS ---
History of Present Illness Date of Service: 06/01/21 Chief Complaint: cough, chest discomfort 65yo M with alcohol use disorder, COPD, DM2, HFpEF, and HTN who was just discharged from our service 05/19/21 after being admitted to the ICU 05/12/21 with severe hyponatremia [Na 117] and alcohol intoxication complicated by encephalopathy, LAUREN, COPD exacerbation, and alcohol withdrawal. He was treated with volume resuscitation and phenobarbital taper and discharged home with VNA services. Sodium on the day of discharge was normal at 135. He came in today with a 2-3 day history of mid-sternal chest pressure along with ongoing cough and dyspnea. He has been drinking at least 5 servings of beer daily for the past 5 days. No fever or purulent sputum. He's been vaccinated with 3 doses of mRNA Covid-19 vaccine. Denies abd pain, nausea, vomiting, hematochezia, hematemesis, or melena. He has not eaten in 2 days. In the ED, he was noted to have hypomagnesemia, hyponatremia [Na 129], and alcohol withdrawal. EKG without ischemic changes and two serial hs-troponin measurements were flat. He was given IV normal saline, IV methylprednisolone, IV magnesium, and 4 mg of IV lorazepam. He was also given a nebulizer treatment. He was then started on phenobarbital taper. Due to inability to achieve peripheral IV access, a central IJ catheter was placed. Review of Systems Review of Systems: Yes all other systems are reviewed and are negative [facility] Medical History LAUREN (acute kidney injury) Alcohol abuse COPD (chronic obstructive pulmonary disease) Diabetes mellitus type 1 Diastolic dysfunction Diastolic heart failure HLD (hyperlipidemia) Hypertension Nonrheumatic aortic (valve) stenosis Obesity Family History Father Diabetes Mother Diabetes Social History Household Members: None Housing: House Do you presently have visiting nurse or other home services: No Alcohol intake: current Alcohol intake frequency: a few times a month Alcohol type: hard liquor Patient Tobacco Use Status: Current everyday Tobacco user Tobacco use type: Cigarette Second Hand Smoke Exposure: No Use of substances other than those prescribed or required for medical reasons: No Advance Directives: Yes Advance Directives on File: Yes Advance Directives Date on File: 10/11/20 service: No Current occupational status: disabled Meds Allergies Allergy/AdvReac Type Severity Reaction Status Date / Time ENVIRONMENTAL Allergy Mild SNEEZING, Uncoded 09/26/20 17:14 WATERY EYES Active Medications: Current Medications Acetaminophen (Acetaminophen 325 Mg Tablet) 650 mg PO Q6H PRN PRN Reason: Pain, Mild (Pain Scale 1-3) Albuterol Sulfate (Albuterol Sulfate (0.083%) 2.5 Mg/3 Ml Vial.Neb) 2.5 mg INHALE Q2H PRN PRN Reason: Shortness of Breath/Wheezing Albuterol/Ipratropium (Albuterol/Iprat 2.5/0.5mg 3 Ml Ampul.Neb) 3 ml INHALE RQ4H WHILE AWAKE [facility] Aspirin (Aspirin Enteric Coated 81 Mg Tablet.) 81 mg PO BEDTIME [facility] Buspirone HCl (Buspirone Hcl 5 Mg Tablet) 5 mg PO BID [facility] Enoxaparin Sodium (Enoxaparin Sodium 40 Mg/0.4 Ml Syringe) 40 mg SUBCUT Q24H [facility] Folic Acid (Folic Acid 1 Mg Tablet) 1 mg PO DAILY@1700 [facility] Gabapentin (Gabapentin 300 Mg Capsule) 600 mg PO TID [facility] Insulin Human Lispro (Insulin Lispro 100 Unit/Ml 3 Ml Vial) 0 unit SUBCUT QIDACHS JOURDAN; Protocol Lisinopril (Lisinopril 10 Mg Tablet) 10 mg PO DAILY JOURDNA; Protocol Medication (No Benzodiazepines) 1 each MISCELLANE DAILY [facility] Methylprednisolone Sodium Succinate (Methylprednisolone Sod Succ 40 Mg/Ml Vial) 40 mg IVPUSH Q12H [facility] Multivitamins/Vitamin C (Multivitamin Tablet) 1 tab PO DAILY [facility] Non-Formulary Medication (Ramelteon) 1 tab PO BEDTIME [facility] Non-Formulary Medication (Simvastatin) 1 tab PO BEDTIME [facility] Omeprazole (Omeprazole 20 Mg Capsule.) 20 mg PO BID@0630,1630 [facility] Ondansetron HCl (Ondansetron Hcl 4 Mg/2 Ml Vial) 4 mg IVPUSH Q8H PRN PRN Reason: Nausea and Vomiting Pharmacy Consult (Consult Rx Perform Med Rec) 1 each MISCELLANE STAT STA Stop: 06/01/21 13:22 Phenobarbital (Phenobarbital 15 Mg Tablet) 15 mg PO BID [facility]; Protocol Stop: 06/05/21 21:01 Phenobarbital (Phenobarbital 15 Mg Tablet) 45 mg PO BID [facility]; Protocol Stop: 06/03/21 21:01 Phenobarbital (Phenobarbital 15 Mg Tablet) 15 mg PO DAILY [facility]; Protocol Stop: 06/07/21 09:01 Phenobarbital Sodium (Phenobarbital Sodium 130 Mg/Ml Vial) 200 mg IM Q3H [facility]; Protocol Stop: 06/01/21 20:01 Sodium Chloride (0.9 % Sodium Chloride Flush 3 Ml Syringe) 3 ml IVFLUSH QSHIFT [facility] Tamsulosin HCl (Tamsulosin Hcl 0.4 Mg Capsule) 0.4 mg PO DAILY@1700 [facility] Thiamine HCl (Thiamine Hcl 100 Mg Tablet) 100 mg PO BEDTIME [facility] Home Medications Medication Instructions Recorded Confirmed Last Taken Type albuterol sulfate 1 amp INHALATION QID 12/29/20 06/01/21 Unknown History albuterol sulfate 90 mcg/actuation 2 puff INHALATION QID PRN 12/29/20 06/01/21 Unknown History aerosol inhaler blood sugar diagnostic (FreeStyle 12/29/20 02/04/21 Unknown History Lite Strips) folic acid 1 mg tablet 1 tab PO DAILY@1700 12/29/20 06/01/21 Unknown History gabapentin 300 mg capsule 2 cap PO TID 12/29/20 06/01/21 Unknown History insulin aspart U-100 100 unit/mL 15 unit SUBCUT TIDAC 12/29/20 06/01/21 Unknown History subcutaneous solution (Novolog U-100 Insulin aspart) lisinopril 10 mg tablet 1 tab PO DAILY 12/29/20 06/01/21 Unknown History multivitamin 1 tab PO DAILY 12/29/20 06/01/21 Unknown History omega-3 fatty acids-fish oil 340 1 cap PO DAILY 12/29/20 06/01/21 Unknown History mg-1,000 mg capsule (Fish Oil) simvastatin 20 mg tablet 1 tab PO BEDTIME 12/29/20 06/01/21 Unknown History thiamine HCl (vitamin B1) 100 mg 1 tab PO BEDTIME 12/29/20 06/01/21 Unknown History tablet aspirin 81 mg tablet,delayed 1 tab PO BEDTIME 02/04/21 06/01/21 Unknown History release buspirone 5 mg tablet 5 mg PO BID 02/04/21 06/01/21 Unknown History insulin glargine 100 unit/mL 45 unit SUBCUT BEDTIME 02/04/21 06/01/21 Unknown History subcutaneous solution (Lantus U-100 Insulin) celecoxib 50 mg capsule 1 cap PO BID 05/12/21 06/01/21 Unknown History ramelteon 8 mg tablet 1 tab PO BEDTIME 05/12/21 06/01/21 Unknown History tamsulosin 0.4 mg capsule 1 cap PO DAILY@1700 05/12/21 06/01/21 Unknown History omeprazole 20 mg capsule,delayed 1 cap PO BID@0630,1630 06/01/21 06/01/21 Unknown History release Physical Exam Vital Signs and Narrative: Vital Signs: Last Vital Signs Temp 98.3 F 06/01/21 06:48 Pulse 105 H 06/01/21 12:40 Resp 19 06/01/21 12:40 BP 152/72 H 06/01/21 12:40 Pulse Ox 98 06/01/21 07:16 BMI result Body Mass Index 34.4 Gen: disheveled, soiled self HEENT: sclera anicteric, moist mucus membranes Neck: supple, no adenopathy Lungs: diminished throughout, no crackles, a few end-expiratory wheezes Heart: tachycardic, no murmurs Abd: soft, obese, non-tender, non-distended Ext: no edema Skin: warm/well-perfused Neuro: somewhat disoriented, no focal findings Psych: appropriate affect Results Labs CBC and Chem 7: 06/01/21 08:56 06/01/21 08:56 Labs: Laboratory Results - last 24 hr 06/01/21 06/01/21 06/01/21 08:56 08:56 08:56 MCV 89.7 MCH 30.7 MCHC 34.2 RDW 15.8 Plt Count 244 MPV 8.6 L Immature Gran % (Auto) 0.7 H Neut % (Auto) 70.8 Lymph % (Auto) 14.6 L [place] % (Auto) 9.7 Eos % (Auto) 3.0 Baso % (Auto) 1.2 Lymph # (Auto) 0.9 L [place] # (Auto) 0.6 Eos # (Auto) 0.2 Baso # (Auto) 0.1 Abs Immat Gran (auto) 0.04 H Absolute Neuts (auto) 4.3 Absolute Nucleated RBC 0.000 Nucleated RBC % (auto) 0.0 Anion Gap 16 Estim Creat Clear Calc 91.0 Estimated GFR > 60 Random Glucose 180 H D Calcium 8.7 Magnesium 1.5 L Total Bilirubin Direct Bilirubin AST ALT Alkaline Phosphatase Troponin I High Sens 18.0 B-Natriuretic Peptide 76 Total Protein Albumin COVID-19 (ELIER) COVID-19 Clin Com 06/01/21 06/01/21 06/01/21 08:59 10:05 10:08 MCV MCH MCHC RDW Plt Count MPV Immature Gran % (Auto) Neut % (Auto) Lymph % (Auto) [place] % (Auto) Eos % (Auto) Baso % (Auto) Lymph # (Auto) [place] # (Auto) Eos # (Auto) Baso # (Auto) Abs Immat Gran (auto) Absolute Neuts (auto) Absolute Nucleated RBC Nucleated RBC % (auto) Anion Gap Estim Creat Clear Calc Estimated GFR Random Glucose Calcium Magnesium Total Bilirubin 0.4 Direct Bilirubin 0.3 AST 18 ALT 14 Alkaline Phosphatase 89 Troponin I High Sens B-Natriuretic Peptide Total Protein 6.1 L Albumin 3.7 COVID-19 (ELIER) Invalid Negative COVID-19 Clin Com See Note See Note 06/01/21 10:08 MCV MCH MCHC RDW Plt Count MPV Immature Gran % (Auto) Neut % (Auto) Lymph % (Auto) [place] % (Auto) Eos % (Auto) Baso % (Auto) Lymph # (Auto) [place] # (Auto) Eos # (Auto) Baso # (Auto) Abs Immat Gran (auto) Absolute Neuts (auto) Absolute Nucleated RBC Nucleated RBC % (auto) Anion Gap Estim Creat Clear Calc Estimated GFR Random Glucose Calcium Magnesium Total Bilirubin Direct Bilirubin AST ALT Alkaline Phosphatase Troponin I High Sens 16.5 B-Natriuretic Peptide Total Protein Albumin COVID-19 (ELIER) COVID-19 Clin Com Imaging Radiologist's Impressions: Impressions Chest X-Ray 06/01/21 08:10 IMPRESSION: No evidence for acute disease in the chest. Chest X-Ray 06/01/21 10:35 IMPRESSION: Right jugular line tip projects over SVC. No pneumothorax. Assessment and Plan (1) Alcohol withdrawal: Status: Acute (2) Acute hyponatremia: Status: Acute 65yo M with alcohol use disorder, COPD, DM2, HFpEF, and HTN recently admitted to the ICU here with severe hyponatremia and alcohol withdrawal presenting with noncardiac chest pain, COPD exacerbation, alcohol withdrawal, and electrolyte abnormalities. # alcohol withdrawal - admit to [facility], give phenobarbital taper, B vitamins # hyponatremia - likely beer potomania but also some dehydration. will restrict fluid to 1500 mL/d. check urine sodium/Osm. recheck BMP in am # hypoMg - repleted. recheck level in am. # COPD exacerbation - IV steroids, standing/prn nebs # HTN - lisinopril # DM2 - correction-dose lispro # AUD - Addiction Med consult # VTE ppx - LMWH # code - full Quality Stroke Does the patient have a stroke diagnosis?: No VTE Prior VTE?: No VTE Risk Level:: Medical - moderate - high VTE Device Contraindication: N/A - Device Ordered VTE Drug Contraindication: N/A - Med Ordered
[2021-06-01] MEDS: Gabapentin 300 MG CAPSULE 600 MG PO ×2 (14:25→20:16)
[2021-06-01] MEDS: Enoxaparin Sodium 40 MG/0.4 ML SYRINGE SUBCUT (14:25)
[2021-06-01] MEDS: PHENobarbitaL sodium 130 MG/ML VIAL 260 MG IM (14:25)
[2021-06-01 16:30] LABS: Appearance Urine CLEAR; Color Urine YELLOW; Glucose Urine UA NEG (NEG); Leukocyte Esterase Urine NEG (NEG); Nitrite Urine NEG (NEG); Urine Blood NEG (NEG); Urine Ketones 15 MG/DL (NEG); Urine Protein NEG (NEG-TRACE)
[2021-06-01 16:40] LABS: Creatinine Urine 77.43 mg/dL
[2021-06-01] MEDS: PHENobarbitaL sodium 130 MG/ML VIAL 200 MG IM ×2 (18:13→20:30)
[2021-06-01] MEDS: methylPREDNISolone Sod Succ 40 MG/ML VIAL IVPUSH (18:13)
[2021-06-01 18:20] LABS: Glucose, Whole Blood 385 mg/dL (60-115)
[2021-06-01] MEDS: Insulin Lispro 100 UNIT/ML 3 ML VIAL SUBCUT ×2 (18:39→20:30)
--- NOTE | 2021-06-01 19:42 | PC.NURSE ---
This RN to bedside to assess pt. Pt asleep on stretcher, RR even and unlabored on 2L supplemental O2. Pt on NC, but while asleep, pt is mouth breathing. Pt desat to 87% while asleep with NC in nose. Cannula placed in mouth, sats increased to 94% Pt arousable but lethargic in between care. Pt without signs of ETOH withdrawal. Adrian PCT to transport pt to [facility]. Report called to Kelechi ROSENBERG
[2021-06-01 20:11] LABS: Glucose, Whole Blood 392 mg/dL (60-115)
[2021-06-01] MEDS: Atorvastatin Calcium 10 MG TABLET PO (20:16)
[2021-06-01] MEDS: Thiamine HCL 100 MG TABLET PO (20:16)
[2021-06-01] MEDS: Aspirin Enteric Coated 81 MG TABLET.DR PO (20:16)
[2021-06-01] MEDS: busPIRone HCl 5 MG TABLET PO (20:16)
[2021-06-01] MEDS: Insulin Glargine,Hum.rec.anlog 100 UNIT/ML 10 ML VIAL 20 UNIT SUBCUT (20:30)
[2021-06-01] MEDS: 0.9 % Sodium Chloride Flush 3 ML SYRINGE IVFLUSH (20:36)
[2021-06-02 04:00] VITALS: BP 153/83; PULSE 85; RESP 17; TEMP 36.6; O2SAT 94
[2021-06-02] MEDS: Omeprazole 20 MG CAPSULE.DR PO ×2 (06:04→17:48)
[2021-06-02] MEDS: methylPREDNISolone Sod Succ 40 MG/ML VIAL IVPUSH ×2 (06:04→17:49)
[2021-06-02 06:42] LABS: Anion Gap 19 (12-20); Blood Urea Nitrogen 11 mg/dL (9-16); Calcium 9.2 mg/dL (8.4-10.2); Carbon Dioxide 28 mmol/L (22-29); Chloride 93 mmol/L (96-108); Creatinine Clr Calc Pharmacy 85.4; Estimated Glomerular Filt Rate > 60; Glucose Random 288 mg/dL (60-115); Magnesium 1.9 mg/dL (1.6-2.6); Potassium 4.6 mmol/L (3.3-5.1); Sodium 135 mmol/L (135-145)
[2021-06-02 07:50] LABS: Glucose, Whole Blood 312 mg/dL (60-115)
[2021-06-02] MEDS: Albuterol/Iprat 2.5/0.5MG 3 ML AMPUL.NEB INHALE (07:57)
[2021-06-02] MEDS: Gabapentin 300 MG CAPSULE 600 MG PO ×3 (07:59→21:27)
[2021-06-02 08:00] VITALS: BP 153/78; PULSE 97; RESP 15; TEMP 36.1; O2SAT 95
[2021-06-02] MEDS: Multivitamin TABLET 1 TAB PO (08:00)
[2021-06-02] MEDS: busPIRone HCl 5 MG TABLET PO ×2 (08:00→21:27)
[2021-06-02] MEDS: Insulin Lispro 100 UNIT/ML 3 ML VIAL SUBCUT ×4 (08:01→21:29)
[2021-06-02] MEDS: lisinopriL 10 MG TABLET PO (08:03)
[2021-06-02] MEDS: 0.9 % Sodium Chloride Flush 3 ML SYRINGE IVFLUSH ×3 (08:03→21:29)
[2021-06-02] MEDS: PHENobarbitaL 15 MG TABLET 45 MG PO ×2 (08:04→21:27)
[2021-06-02 08:44] LABS: Adenovirus PCR Not Detected (Not Detect.); Bordetella parapertussis PCR Not Detected (Not Detect.); Bordetella pertussis PCR Not Detected (Not Detect.); Chlamydia pneumoniae PCR Not Detected (Not Detect.); Coronavirus 229E PCR Not Detected (Not Detect.); Coronavirus HKU1 PCR Not Detected (Not Detect.); Coronavirus NL63 PCR Not Detected (Not Detect.); Coronavirus OC43 PCR Not Detected (Not Detect.)
[2021-06-02 08:46] LABS: Human metapneumovirus PCR Not Detected (Not Detect.); Influenza A PCR Not Detected (Not Detect.); Influenza B PCR Not Detected (Not Detect.); Mycoplasma pneumoniae PCR Not Detected (Not Detect.); Parainfluenza 1 PCR Not Detected (Not Detect.); Parainfluenza 2 PCR Not Detected (Not Detect.); Parainfluenza 3 PCR Not Detected (Not Detect.); Parainfluenza 4 PCR Not Detected (Not Detect.); RSV PCR Not Detected (Not Detect.); Rhino/Enterovirus PCR Not Detected (Not Detect.); SARS-CoV-2 PCR Detected (Not Detect.)
[2021-06-02] MEDS: Albuterol Sulfate 90 MCG 8 GM INHALER 2 PUFF INHALE ×2 (10:42→23:44)
[2021-06-02] MEDS: Remdesivir 200 MG in 0.9 % Sodium Chloride 210 ML 105 MG IV (11:17)
[2021-06-02 12:00] VITALS: BP 105/80; PULSE 89; RESP 20; TEMP 37; O2SAT 90
[2021-06-02 12:03] LABS: Glucose, Whole Blood 332 mg/dL (60-115)
--- NOTE | 2021-06-02 14:35 | HO.PM.IMPN ---
Subjective Subjective Date of Service: 06/02/21 Interval History: Admitted for chest pressure cough and shortness of breath, diagnosed to have COVID-19 infection, mild hyponatremia and alcohol withdrawal, requesting for home meds, complaining of shortness of breath, denies chest pain, no nausea, no vomiting, no fever chills, incontinent of urine. Review of Systems Review of Systems: Yes all other systems are reviewed and are negative Physical Exam Vital Signs: Vital Signs: Last Vital Signs Temp 98.6 F 06/02/21 12:00 Pulse 89 06/02/21 12:00 Resp 20 06/02/21 12:00 BP 105/80 06/02/21 12:00 Pulse Ox 90 L 06/02/21 12:00 BMI result Body Mass Index 34.4 Const: Other: Gen: Awake,Alert, no distress, anxious, irritable HEENT: sclera anicteric, moist mucus membranes Neck: supple, no adenopathy Lungs: Few scattered expiratory wheeze, diminished , no respiratory distress Heart: Regular rate rhythm,no murmurs Abd: soft, obese, non-tender, non-distended Ext: no edema Skin: warm/well-perfused Neuro: no focal findings Psych: appropriate affect Objective Data Active Medications Acetaminophen (Acetaminophen 325 Mg Tablet) 650 mg PO Q6H PRN PRN Reason: Pain, Mild (Pain Scale 1-3) Albuterol Sulfate (Albuterol Sulfate (0.083%) 2.5 Mg/3 Ml Vial.Neb) 2.5 mg INHALE Q2H PRN PRN Reason: Shortness of Breath/Wheezing Albuterol Sulfate (Albuterol Sulfate 90 Mcg 8 Gm Inhaler) 2 puff INHALE RQ4H PRN PRN Reason: sob Last Admin: 06/02/21 10:42 Dose: 2 puff Documented by: XIMENA Albuterol/Ipratropium (Albuterol/Iprat 2.5/0.5mg 3 Ml Ampul.Neb) 3 ml INHALE RQ4H WHILE AWAKE [facility] Last Admin: 06/02/21 11:59 Dose: Not Given Documented by: JENIFFER Non-Admin Reason: Patient Refused Aspirin (Aspirin Enteric Coated 81 Mg Tablet.) 81 mg PO BEDTIME [facility] Last Admin: 06/01/21 20:16 Dose: 81 mg Documented by: HAJA Atorvastatin Calcium (Atorvastatin Calcium 10 Mg Tablet) 10 mg PO BEDTIME [facility] Last Admin: 06/01/21 20:16 Dose: 10 mg Documented by: HAJA Buspirone HCl (Buspirone Hcl 5 Mg Tablet) 5 mg PO BID [facility] Last Admin: 06/02/21 08:00 Dose: 5 mg Documented by: XIMENA Enoxaparin Sodium (Enoxaparin Sodium 40 Mg/0.4 Ml Syringe) 40 mg SUBCUT Q24H [facility] Last Admin: 06/01/21 14:25 Dose: 40 mg Documented by: RENÉE Folic Acid (Folic Acid 1 Mg Tablet) 1 mg PO DAILY@1700 [facility] Last Admin: 06/01/21 18:36 Dose: Not Given Documented by: RENÉE Non-Admin Reason: Patient Asleep Gabapentin (Gabapentin 300 Mg Capsule) 600 mg PO TID [facility] Last Admin: 06/02/21 07:59 Dose: 600 mg Documented by: XIMENA Remdesivir 100 mg/ Sodium (Chloride) 230 mls @ 115 mls/hr IV Q24H [facility] Stop: 06/04/21 12:29 Insulin Glargine (Insulin Glargine,Hum.Rec.Anlog 100 Unit/Ml 10 Ml Vial) 20 unit SUBCUT BEDTIME [facility] Last Admin: 06/01/21 20:30 Dose: 20 unit Documented by: HAJA Insulin Human Lispro (Insulin Lispro 100 Unit/Ml 3 Ml Vial) 0 unit SUBCUT QIDACHS [facility]; Protocol Last Admin: 06/02/21 12:06 Dose: 8 unit Documented by: LISSETTE Lisinopril (Lisinopril 10 Mg Tablet) 10 mg PO DAILY [facility]; Protocol Last Admin: 06/02/21 08:03 Dose: 10 mg Documented by: XIMENA Comments: 153/78 HR 98 Medication (No Benzodiazepines) 1 each MISCELLANE DAILY [facility] Methylprednisolone Sodium Succinate (Methylprednisolone Sod Succ 40 Mg/Ml Vial) 40 mg IVPUSH Q12H [facility] Last Admin: 06/02/21 06:04 Dose: 40 mg Documented by: AMADO Multivitamins/Vitamin C (Multivitamin Tablet) 1 tab PO DAILY [facility] Last Admin: 06/02/21 08:00 Dose: 1 tab Documented by: XIMENA Non-Formulary Medication (Ramelteon) 1 tab PO BEDTIME [facility] Omeprazole (Omeprazole 20 Mg Capsule.) 20 mg PO BID@0630,1630 [facility] Last Admin: 06/02/21 06:04 Dose: 20 mg Documented by: AMADO Ondansetron HCl (Ondansetron Hcl 4 Mg/2 Ml Vial) 4 mg IVPUSH Q8H PRN PRN Reason: Nausea and Vomiting Phenobarbital (Phenobarbital 15 Mg Tablet) 15 mg PO BID [facility]; Protocol Stop: 06/05/21 21:01 Phenobarbital (Phenobarbital 15 Mg Tablet) 45 mg PO BID [facility]; Protocol Stop: 06/03/21 21:01 Last Admin: 06/02/21 08:04 Dose: 45 mg Documented by: XIMENA Phenobarbital (Phenobarbital 15 Mg Tablet) 15 mg PO DAILY [facility]; Protocol Stop: 06/07/21 09:01 Sodium Chloride (0.9 % Sodium Chloride Flush 3 Ml Syringe) 3 ml IVFLUSH QSHIFT [facility] Last Admin: 06/02/21 08:03 Dose: 3 ml Documented by: XIMENA Tamsulosin HCl (Tamsulosin Hcl 0.4 Mg Capsule) 0.4 mg PO DAILY@1700 [facility] Last Admin: 06/01/21 18:36 Dose: Not Given Documented by: RENÉE Non-Admin Reason: Patient Asleep Thiamine HCl (Thiamine Hcl 100 Mg Tablet) 100 mg PO BEDTIME [facility] Last Admin: 06/01/21 20:16 Dose: 100 mg Documented by: HAJA Labs CBC & Chem 7: 06/01/21 08:56 06/02/21 05:30 Labs: Laboratory Results - last 24 hr 06/01/21 06/01/21 06/01/21 16:15 16:15 16:15 Anion Gap Estim Creat Clear Calc Estimated GFR POC Glucose Random Glucose Calcium Magnesium Urine Color YELLOW Urine Appearance CLEAR Urine pH 6.0 Ur Specific [place] 1.010 Urine Protein NEG Urine Glucose (UA) NEG Urine Ketones 15 Urine Blood NEG Urine Nitrite NEG Ur Leukocyte Esterase NEG Ur Random Sodium 28.0 Urine Creatinine 77.43 Respiratory Panel [place] See Note Adenovirus (Rapid PCR) Not Detected B.pert (TEM-PCR) Not Detected B.parapertussis DNA PCR Not Detected C. pneumoniae DNA (PCR) Not Detected Coronavirus OC43 (PCR) Not Detected Coronavirus HKU1 (PCR) Not Detected Coronavirus 229E (PCR) Not Detected Coronavirus NL63 (PCR) Not Detected Human Metapneumovir PCR Not Detected Influenza A (RT-PCR) Not Detected Influenza B (RT-PCR) Not Detected M. pneumoniae (PCR) Not Detected Parainfluenza 1 (PCR) Not Detected Parainfluenza 2 (PCR) Not Detected Parainfluenza 3 (PCR) Not Detected Parainfluenza 4 (PCR) Not Detected RSV (PCR) Not Detected Entero/Rhino (PCR) Not Detected SARS-CoV-2 RNA (RT-PCR) Detected A 06/01/21 06/01/21 06/02/21 18:12 20:07 05:30 Anion Gap 19 Estim Creat Clear Calc 85.4 Estimated GFR > 60 POC Glucose 385 H* 392 H* Random Glucose 288 H D Calcium 9.2 Magnesium 1.9 Urine Color Urine Appearance Urine pH Ur Specific [place] Urine Protein Urine Glucose (UA) Urine Ketones Urine Blood Urine Nitrite Ur Leukocyte Esterase Ur Random Sodium Urine Creatinine Respiratory Panel [place] Adenovirus (Rapid PCR) B.pert (TEM-PCR) B.parapertussis DNA PCR C. pneumoniae DNA (PCR) Coronavirus OC43 (PCR) Coronavirus HKU1 (PCR) Coronavirus 229E (PCR) Coronavirus NL63 (PCR) Human Metapneumovir PCR Influenza A (RT-PCR) Influenza B (RT-PCR) M. pneumoniae (PCR) Parainfluenza 1 (PCR) Parainfluenza 2 (PCR) Parainfluenza 3 (PCR) Parainfluenza 4 (PCR) RSV (PCR) Entero/Rhino (PCR) SARS-CoV-2 RNA (RT-PCR) 06/02/21 06/02/21 07:29 11:59 Anion Gap Estim Creat Clear Calc Estimated GFR POC Glucose 312 H 332 H Random Glucose Calcium Magnesium Urine Color Urine Appearance Urine pH Ur Specific [place] Urine Protein Urine Glucose (UA) Urine Ketones Urine Blood Urine Nitrite Ur Leukocyte Esterase Ur Random Sodium Urine Creatinine Respiratory Panel [place] Adenovirus (Rapid PCR) B.pert (TEM-PCR) B.parapertussis DNA PCR C. pneumoniae DNA (PCR) Coronavirus OC43 (PCR) Coronavirus HKU1 (PCR) Coronavirus 229E (PCR) Coronavirus NL63 (PCR) Human Metapneumovir PCR Influenza A (RT-PCR) Influenza B (RT-PCR) M. pneumoniae (PCR) Parainfluenza 1 (PCR) Parainfluenza 2 (PCR) Parainfluenza 3 (PCR) Parainfluenza 4 (PCR) RSV (PCR) Entero/Rhino (PCR) SARS-CoV-2 RNA (RT-PCR) Assessment and Plan (1) Alcohol withdrawal: Status: Acute (2) Chest pain: Status: Acute (3) Hypomagnesemia: Status: Acute (4) Acute hyponatremia: Status: Acute Assessment and Plan: 65yo M with alcohol use disorder, COPD, DM2, HFpEF, and HTN recently admitted to the ICU here with severe hyponatremia and alcohol withdrawal presenting with noncardiac chest pain, COPD exacerbation, alcohol withdrawal, and electrolyte abnormalities. # alcohol withdrawal - continue phenobarbital taper, appears anxious will add as needed hydroxyzine Continue thiamine/folic acid, care team eval # hyponatremia - likely beer potomania sodium improved to 135 with fluid restriction Will DC fluid restriction, follow BMP # hypoMg - repleted.? Repeat magnesium 1.9 # COPD exacerbation - improving, continue IV steroids, standing/prn nebs, added as needed Ventolin MDI # noncardiac chest pain ,no recurrent episode, flat troponin, EKG with no ischemia # HTN - BP stable continue lisinopril # DM2 - blood sugars in 200 continue Lantus 20 unit and insulin sliding scale # VTE ppx - LMWH # code - full Quality Stroke Does the patient have a stroke diagnosis?: No VTE Prior VTE?: No VTE Risk Level:: Medical - moderate - high VTE Device Contraindication: N/A - Device Ordered VTE Drug Contraindication: N/A - Med Ordered
[2021-06-02 15:28] VITALS: BP 98/53; PULSE 100; RESP 15; TEMP 36.9; O2SAT 93
[2021-06-02] MEDS: Enoxaparin Sodium 40 MG/0.4 ML SYRINGE SUBCUT (15:37)
[2021-06-02] MEDS: hydrOXYzine HCL 25 MG TABLET PO ×2 (15:38→23:29)
[2021-06-02 16:49] LABS: Glucose, Whole Blood 328 mg/dL (60-115)
[2021-06-02] MEDS: Tamsulosin HCL 0.4 MG CAPSULE PO (17:48)
[2021-06-02] MEDS: Folic Acid 1 MG TABLET PO (17:48)
[2021-06-02 19:45] VITALS: BP 115/63; PULSE 93; RESP 18; TEMP 36.6; O2SAT 95
[2021-06-02 20:09] LABS: Glucose, Whole Blood 394 mg/dL (60-115)
[2021-06-02] MEDS: Atorvastatin Calcium 10 MG TABLET PO (21:26)
[2021-06-02] MEDS: Thiamine HCL 100 MG TABLET PO (21:27)
[2021-06-02] MEDS: Aspirin Enteric Coated 81 MG TABLET.DR PO (21:27)
[2021-06-02] MEDS: diphenhydrAMINE HCL 25 MG TABLET PO (21:27)
[2021-06-02] MEDS: Insulin Glargine,Hum.rec.anlog 100 UNIT/ML 10 ML VIAL 30 UNIT SUBCUT (21:27)
[2021-06-02] MEDS: guaiFENesin DM 100/10/5 ML 5 ML SYRUP 10 ML PO (23:28)
[2021-06-03] VITALS (7 sets, daily range): BP systolic 108–143; BP diastolic 61–86; PULSE 78–99; RESP 18–20; TEMP 36.5–36.7; O2SAT 91–96
[2021-06-03] MEDS: Omeprazole 20 MG CAPSULE.DR PO ×2 (06:23→15:25)
[2021-06-03] MEDS: methylPREDNISolone Sod Succ 40 MG/ML VIAL IVPUSH ×2 (06:23→16:31)
[2021-06-03 07:17] LABS: Anion Gap 11 (12-20); Blood Urea Nitrogen 18 mg/dL (9-16); Calcium 9.2 mg/dL (8.4-10.2); Carbon Dioxide 36 mmol/L (22-29); Chloride 96 mmol/L (96-108); Estimated Glomerular Filt Rate > 60; Glucose Random 169 mg/dL (60-115); Potassium 4.3 mmol/L (3.3-5.1); Sodium 139 mmol/L (135-145)
[2021-06-03 07:33] LABS: Glucose, Whole Blood 314 mg/dL (60-115)
--- NOTE | 2021-06-03 08:37 | MHC.RECOVRN ---
Briefly met with pt on 06/02/21 with Belem Galeas NP. Pt does not feel well enough to engage in ESTEFANI assessment. Informed pt t/w will f/u later in pts stay, pt states yes, way later. Will continue to follow.
[2021-06-03] MEDS: 0.9 % Sodium Chloride Flush 3 ML SYRINGE IVFLUSH ×2 (08:45→15:14)
[2021-06-03] MEDS: Insulin Lispro 100 UNIT/ML 3 ML VIAL SUBCUT ×5 (08:45→20:23)
[2021-06-03] MEDS: Multivitamin TABLET 1 TAB PO (08:46)
[2021-06-03] MEDS: busPIRone HCl 5 MG TABLET PO ×2 (08:46→20:22)
[2021-06-03] MEDS: PHENobarbitaL 15 MG TABLET 45 MG PO ×2 (08:46→20:22)
[2021-06-03] MEDS: Gabapentin 300 MG CAPSULE 600 MG PO ×3 (08:46→20:21)
[2021-06-03] MEDS: lisinopriL 10 MG TABLET PO (08:46)
--- NOTE | 2021-06-03 10:07 | MHC.CM.PN ---
message left for pts hcp pt is active with [facility] geeta will see pt re his substance abuse issues
[2021-06-03 11:15] LABS: Glucose, Whole Blood 383 mg/dL (60-115)
[2021-06-03] MEDS: Remdesivir 100 MG in 0.9 % Sodium Chloride 230 ML 115 MG IV (13:08)
[2021-06-03] MEDS: Tamsulosin HCL 0.4 MG CAPSULE PO (13:18)
[2021-06-03] MEDS: guaiFENesin DM 100/10/5 ML 5 ML SYRUP 10 ML PO ×2 (13:18→18:40)
[2021-06-03] MEDS: Folic Acid 1 MG TABLET PO (15:25)
[2021-06-03] MEDS: hydrOXYzine HCL 25 MG TABLET PO (15:33)
--- NOTE | 2021-06-03 15:47 | HO.PM.IMPN ---
Subjective Subjective Date of Service: 06/03/21 Interval History: Requesting for higher calorie diet, feels weak, requesting for Ativan for anxiety, no other acute issues overnight, denies fever chills, no nausea, no vomiting tolerating diet. Review of Systems Review of Systems: Yes all other systems are reviewed and are negative Physical Exam Vital Signs: Vital Signs: Last Vital Signs Temp 98 F 06/03/21 15:31 Pulse 88 06/03/21 15:31 Resp 18 06/03/21 15:31 BP 108/64 06/03/21 15:31 Pulse Ox 94 06/03/21 15:31 BMI result Body Mass Index 34.4 Const: Other: Gen:? Awake,Alert, no distress HEENT: sclera anicteric, moist mucus membranes Neck: supple, no adenopathy Lungs:? Few scattered expiratory wheeze, diminished , no respiratory distress Heart:? Regular rate rhythm,no murmurs Abd: soft, obese, non-tender, non-distended Ext: no edema Skin: warm/well-perfused Neuro: no focal findings Psych: appropriate affect Objective Data Active Medications Acetaminophen (Acetaminophen 325 Mg Tablet) 650 mg PO Q6H PRN PRN Reason: Pain, Mild (Pain Scale 1-3) Albuterol Sulfate (Albuterol Sulfate (0.083%) 2.5 Mg/3 Ml Vial.Neb) 2.5 mg INHALE Q2H PRN PRN Reason: Shortness of Breath/Wheezing Albuterol Sulfate (Albuterol Sulfate 90 Mcg 8 Gm Inhaler) 2 puff INHALE RQ4H PRN PRN Reason: sob Last Admin: 06/02/21 23:44 Dose: 2 puff Documented by: PIEDAD Albuterol/Ipratropium (Albuterol/Iprat 2.5/0.5mg 3 Ml Ampul.Neb) 3 ml INHALE RQ4H WHILE AWAKE [facility] Last Admin: 06/03/21 11:55 Dose: Not Given Documented by: BRAYAN Non-Admin Reason: Patient Refused Aspirin (Aspirin Enteric Coated 81 Mg Tablet.) 81 mg PO BEDTIME [facility] Last Admin: 06/02/21 21:27 Dose: 81 mg Documented by: PIEDAD Atorvastatin Calcium (Atorvastatin Calcium 10 Mg Tablet) 10 mg PO BEDTIME [facility] Last Admin: 06/02/21 21:26 Dose: 10 mg Documented by: PIEDAD Buspirone HCl (Buspirone Hcl 5 Mg Tablet) 5 mg PO BID [facility] Last Admin: 06/03/21 08:46 Dose: 5 mg Documented by: DIANA Enoxaparin Sodium (Enoxaparin Sodium 40 Mg/0.4 Ml Syringe) 40 mg SUBCUT Q24H [facility] Last Admin: 06/03/21 13:18 Dose: Not Given Documented by: DIANA Non-Admin Reason: Patient Refused Folic Acid (Folic Acid 1 Mg Tablet) 1 mg PO DAILY@1700 [facility] Last Admin: 06/03/21 15:25 Dose: 1 mg Documented by: JIMBO Gabapentin (Gabapentin 300 Mg Capsule) 600 mg PO TID [facility] Last Admin: 06/03/21 15:25 Dose: 600 mg Documented by: JIMBO Guaifenesin/Dextromethorphan (Guaifenesin Dm 100/10/5 Ml 5 Ml Syrup) 10 ml PO Q6H PRN PRN Reason: cough Last Admin: 06/03/21 13:18 Dose: 10 ml Documented by: DIANA Hydroxyzine HCl (Hydroxyzine Hcl 25 Mg Tablet) 25 mg PO Q6H PRN PRN Reason: Anxiety Last Admin: 06/03/21 15:33 Dose: 25 mg Documented by: JIMBO Remdesivir 100 mg/ Sodium (Chloride) 230 mls @ 115 mls/hr IV Q24H [facility] Stop: 06/04/21 12:29 Last Infusion: 06/03/21 15:19 Dose: 0 mls/hr Documented by: JIMBO Insulin Glargine (Insulin Glargine,Hum.Rec.Anlog 100 Unit/Ml 10 Ml Vial) 30 unit SUBCUT BEDTIME [facility] Last Admin: 06/02/21 21:27 Dose: 30 unit Documented by: PIEDAD Insulin Human Lispro (Insulin Lispro 100 Unit/Ml 3 Ml Vial) 0 unit SUBCUT QIDACHS [facility]; Protocol Last Admin: 06/03/21 12:17 Dose: 12 unit Documented by: DIANA Lisinopril (Lisinopril 10 Mg Tablet) 10 mg PO DAILY [facility]; Protocol Last Admin: 06/03/21 08:46 Dose: 10 mg Documented by: DIANA Medication (No Benzodiazepines) 1 each MISCELLANE DAILY [facility] Methylprednisolone Sodium Succinate (Methylprednisolone Sod Succ 40 Mg/Ml Vial) 40 mg IVPUSH Q12H [facility] Last Admin: 06/03/21 06:23 Dose: 40 mg Documented by: PIEDAD Multivitamins/Vitamin C (Multivitamin Tablet) 1 tab PO DAILY [facility] Last Admin: 06/03/21 08:46 Dose: 1 tab Documented by: DIANA Omeprazole (Omeprazole 20 Mg Capsule.Dr) 20 mg PO BID@0630,1630 [facility] Last Admin: 06/03/21 15:25 Dose: 20 mg Documented by: JIMBO Ondansetron HCl (Ondansetron Hcl 4 Mg/2 Ml Vial) 4 mg IVPUSH Q8H PRN PRN Reason: Nausea and Vomiting Phenobarbital (Phenobarbital 15 Mg Tablet) 15 mg PO BID [facility]; Protocol Stop: 06/05/21 21:01 Phenobarbital (Phenobarbital 15 Mg Tablet) 45 mg PO BID [facility]; Protocol Stop: 06/03/21 21:01 Last Admin: 06/03/21 08:46 Dose: 45 mg Documented by: DIANA Phenobarbital (Phenobarbital 15 Mg Tablet) 15 mg PO DAILY [facility]; Protocol Stop: 06/07/21 09:01 Sodium Chloride (0.9 % Sodium Chloride Flush 3 Ml Syringe) 3 ml IVFLUSH QSHIFT [facility] Last Admin: 06/03/21 15:14 Dose: 3 ml Documented by: JIMBO Tamsulosin HCl (Tamsulosin Hcl 0.4 Mg Capsule) 0.4 mg PO DAILY@1700 [facility] Last Admin: 06/03/21 13:18 Dose: 0.4 mg Documented by: DIANA Thiamine HCl (Thiamine Hcl 100 Mg Tablet) 100 mg PO BEDTIME [facility] Last Admin: 06/02/21 21:27 Dose: 100 mg Documented by: PIEDAD Labs CBC & Chem 7: 06/01/21 08:56 06/03/21 06:21 Labs: Laboratory Results - last 24 hr 06/02/21 06/02/21 06/03/21 16:40 19:42 06:21 Anion Gap 11 L Estim Creat Clear Calc 91.0 Estimated GFR > 60 POC Glucose 328 H 394 H* Random Glucose 169 H D Calcium 9.2 06/03/21 06/03/21 07:19 10:55 Anion Gap Estim Creat Clear Calc Estimated GFR POC Glucose 314 H 383 H* Random Glucose Calcium Assessment and Plan (1) Alcohol withdrawal: Status: Acute (2) Chest pain: Status: Acute (3) Hypomagnesemia: Status: Acute (4) Acute hyponatremia: Status: Acute Assessment and Plan: 65yo M with alcohol use disorder, COPD, DM2, HFpEF, and HTN recently admitted to the ICU here with severe hyponatremia and alcohol withdrawal presenting with noncardiac chest pain, COPD exacerbation, alcohol withdrawal, and electrolyte abnormalities. # alcohol withdrawal - continue phenobarbital taper, and hydroxyzine as needed for anxiety Continue thiamine/folic acid, care team eval # hyponatremia - likely beer potomania sodium improved to 139 with fluid restriction Will DC fluid restriction, follow BMP # hypoMg - repleted.? Repeat magnesium 1.9 # COPD exacerbation - improving, continue IV steroids, standing/prn nebs, added as needed Ventolin MDI # noncardiac chest pain ,no recurrent episode, flat troponin, EKG with no ischemia # HTN - BP stable continue lisinopril # DM2 - blood sugars in 300s, continue Lantus increased to 25 unit (home does 45 units at bedtime) and adjust insulin sliding scale # VTE ppx - LMWH # code - full Quality Stroke Does the patient have a stroke diagnosis?: No VTE Prior VTE?: No VTE Risk Level:: Medical - moderate - high VTE Device Contraindication: N/A - Device Ordered VTE Drug Contraindication: N/A - Med Ordered
[2021-06-03 16:05] LABS: Glucose, Whole Blood 358 mg/dL (60-115)
[2021-06-03] MEDS: Albuterol/Iprat 2.5/0.5MG 3 ML AMPUL.NEB INHALE (18:57)
[2021-06-03 19:54] LABS: Glucose, Whole Blood 290 mg/dL (60-115)
[2021-06-03] MEDS: Aspirin Enteric Coated 81 MG TABLET.DR PO (20:22)
[2021-06-03] MEDS: Atorvastatin Calcium 10 MG TABLET PO (20:22)
[2021-06-03] MEDS: Thiamine HCL 100 MG TABLET PO (20:22)
[2021-06-03] MEDS: Insulin Glargine,Hum.rec.anlog 100 UNIT/ML 10 ML VIAL 30 UNIT SUBCUT (20:23)
[2021-06-04] MEDS: 0.9 % Sodium Chloride Flush 3 ML SYRINGE IVFLUSH ×3 (00:10→20:47)
[2021-06-04] MEDS: hydrOXYzine HCL 25 MG TABLET PO (00:21)
--- NOTE | 2021-06-04 01:21 | ECG_ITS ---
Test Reason : cp Blood Pressure : / mmHG Vent. Rate : 105 BPM Atrial Rate : 000 BPM P-R Int : 000 ms QRS Dur : 070 ms QT Int : 332 ms P-R-T Axes : 000 030 082 degrees QTc Int : 438 ms Poor data quality, interpretation may be adversely affected Possible Atrial fibrillation with rapid ventricular response with premature ventricular or aberrantly conducted complexes Increased R/S ratio in V1, consider early transition or posterior infarct Abnormal ECG When compared with ECG of 01-JUN-2021 07:21, Poor data quality in current ECG precludes serial comparison Please repeat the EKG Referred By: Mary Ann Gamez Electronically Signed By:HERMAN TONEY MD
[2021-06-04] MEDS: methylPREDNISolone Sod Succ 40 MG/ML VIAL IVPUSH (06:42)
[2021-06-04] MEDS: Omeprazole 20 MG CAPSULE.DR PO ×2 (06:42→16:55)
[2021-06-04 07:29] VITALS: BP 158/92; PULSE 95; RESP 20; TEMP 37.1; O2SAT 98
[2021-06-04 07:31] LABS: Glucose, Whole Blood 253 mg/dL (60-115)
[2021-06-04] MEDS: Insulin Lispro 100 UNIT/ML 3 ML VIAL SUBCUT ×4 (07:59→20:47)
[2021-06-04] MEDS: Gabapentin 300 MG CAPSULE 600 MG PO ×3 (08:00→20:46)
[2021-06-04] MEDS: lisinopriL 10 MG TABLET PO (08:00)
[2021-06-04] MEDS: Multivitamin TABLET 1 TAB PO (08:00)
[2021-06-04] MEDS: PHENobarbitaL 15 MG TABLET PO ×2 (08:00→20:47)
[2021-06-04] MEDS: busPIRone HCl 5 MG TABLET PO ×2 (08:00→20:47)
--- NOTE | 2021-06-04 11:23 | MHC.CM.PN ---
Per ROUNDS discussion, Patient is not yet medically cleared for dc (IV Remdesivir);Home with [facility] is the goal for dc and CM will follow for possible need to adjust the dc plan.
[2021-06-04 11:27] VITALS: BP 115/60; PULSE 85; RESP 20; TEMP 36.6; O2SAT 93
[2021-06-04 11:29] LABS: Glucose, Whole Blood 286 mg/dL (60-115)
[2021-06-04] MEDS: Remdesivir 100 MG in 0.9 % Sodium Chloride 230 ML 115 MG IV (12:38)
[2021-06-04] MEDS: guaiFENesin DM 100/10/5 ML 5 ML SYRUP 10 ML PO (15:02)
[2021-06-04] MEDS: Enoxaparin Sodium 40 MG/0.4 ML SYRINGE SUBCUT (15:02)
--- NOTE | 2021-06-04 15:16 | P.PNIM_ITS ---
Subjective Subjective Date of Service: 06/04/21 Interval History: complaining of not feeling good, complaining of choking, did not sleep good, feels anxious asking for ativan, tele monitor showed PAC, otherwise no other arrhythmias, no events overnight. Review of Systems Review of Systems: Yes all other systems are reviewed and are negative Physical Exam Verdana 4l Vital Signs: Verdana 4d Verdana 4d Vital Signs: Verdana 4d Verdana 4Bd Last Vital Signs Verdana 4d Vocational Training Teacher New 4d Vocational Training Teacher New 4d Temp 97.8 F 06/04/21 11:27 Vocational Training Teacher New 4d Pulse 85 06/04/21 11:27 Vocational Training Teacher New 4d Resp 20 06/04/21 11:27 BP 115/60 06/04/21 11:27 Pulse Ox 93 06/04/21 11:27 BMI result Body Mass Index 34.4 Const: Other: Gen:? Awake,Alert, no distress HEENT : sclera anicteric , moist mucus memb ranes Neck: supple , no adenopathy Janet ngs:? Clear to a uscultation , no w heeze, no respirat ory distress Heart :? Regular rate rh ythm,no murmurs Ab d: soft, obese, no n-tender, non-dist ended Ext: no tamara a Skin: warm/well- perfused Neuro: no focal findings Ps ych: appropriate a ffect Objective Data Active Medications Acetaminophen (Acetaminophen 325 Mg Tablet) 650 mg PO Q6H PRN PRN Reason: Pain, Mild (Pain Scale 1-3) Albuterol Sulfate (Albuterol Sulfate (0.083%) 2.5 Mg/3 Ml Vial.Neb) 2.5 mg INHALE Q2H PRN PRN Reason: Shortness of Breath/Wheezing Albuterol Sulfate (Albuterol Sulfate 90 Mcg 8 Gm Inhaler) 2 puff INHALE RQ4H PRN PRN Reason: sob Last Admin: 06/02/21 23:44 Dose: 2 puff Documented by: PIEDAD Albuterol/Ipratropium (Albuterol/Iprat 2.5/0.5mg 3 Ml Ampul.Neb) 3 ml INHALE RQ 4H WHILE AWAKE [facility] Last Admin: 06/04/21 11:41 Dose: Not Given Documented by: FRANCISCO Non-Admin Reason: Patient Refused Aspirin (Aspirin Enteric Coated 81 Mg Tablet.) 81 mg PO BEDTIME [facility] Last Admin: 06/03/21 20:22 Dose: 81 mg Documented by: JIMBO Atorvastatin Calcium (Atorvastatin Calcium 10 Mg Tablet) 10 mg PO BEDTIME [facility] Last Admin: 06/03/21 20:22 Dose: 10 mg Documented by: JIMBO Buspirone HCl (Buspirone Hcl 5 Mg Tablet) 5 mg PO BID [facility] Last Admin: 06/04/21 08:00 Dose: 5 mg Documented by: DIANA Enoxaparin Sodium (Enoxaparin Sodium 40 Mg/0.4 Ml Syringe) 40 mg SUBCUT Q24H [facility] Last Admin: 06/04/21 15:02 Dose: 40 mg Documented by: DIANA Folic Acid (Folic Acid 1 Mg Tablet) 1 mg PO DAILY@1700 [facility] Last Admin: 06/03/21 15:25 Dose: 1 mg Documented by: JIMBO Gabapentin (Gabapentin 300 Mg Capsule) 600 mg PO TID [facility] Last Admin: 06/04/21 15:02 Dose: 600 mg Documented by: DIANA Guaifenesin/Dextromethorphan (Guaifenesin Dm 100/10/5 Ml 5 Ml Syrup) 10 ml PO Q6H PRN PRN Reason: cough Last Admin: 06/04/21 15:02 Dose: 10 ml Documented by: DIANA Hydroxyzine HCl (Hydroxyzine Hcl 50 Mg Tablet) 50 mg PO Q8H PRN PRN Reason: Anxiety Insulin Glargine (Insulin Glargine,Hum.Rec.Anlog 100 Unit/Ml 10 Ml Vial) 30 unit SUBCUT BEDTIME [facility] Last Admin: 06/03/21 20:23 Dose: 30 unit Documented by: JIMBO Insulin Human Lispro (Insulin Lispro 100 Unit/Ml 3 Ml Vial) 0 unit SUBCUT QIDACHS [facility]; Protocol Last Admin: 06/04/21 12:01 Dose: 8 unit Documented by: DIANA Lisinopril (Lisinopril 10 Mg Tablet) 10 mg PO DAILY [facility]; Protocol Last Admin: 06/04/21 08:00 Dose: 10 mg Documented by: DIANA Medication (No Benzodiazepines) 1 each MISCELLANE DAILY [facility] Multivitamins/Vitamin C (Multivitamin Tablet) 1 tab PO DAILY [facility] Last Admin: 06/04/21 08:00 Dose: 1 tab Documented by: DIANA Omeprazole (Omeprazole 20 Mg Capsule.) 20 mg PO BID@0630,1630 [facility] Last Admin: 06/04/21 06:42 Dose: 20 mg Documented by: OTILIA Ondansetron HCl (Ondansetron Hcl 4 Mg/2 Ml Vial) 4 mg IVPUSH Q8H PRN PRN Reason: Nausea and Vomiting Phenobarbital (Phenobarbital 15 Mg Tablet) 15 mg PO BID [facility]; Protocol Stop: 06/05/21 21:01 Last Admin: 06/04/21 08:00 Dose: 15 mg Documented by: DIANA Phenobarbital (Phenobarbital 15 Mg Tablet) 15 mg PO DAILY [facility]; Protocol Stop: 06/07/21 09:01 Sodium Chloride (0.9 % Sodium Chloride Flush 3 Ml Syringe) 3 ml IVFLUSH QSHIFT [facility] Last Admin: 06/04/21 12:02 Dose: 3 ml Documented by: DIANA Tamsulosin HCl (Tamsulosin Hcl 0.4 Mg Capsule) 0.4 mg PO DAILY@1700 [facility] Last Admin: 06/03/21 13:18 Dose: 0.4 mg Documented by: DIANA Thiamine HCl (Thiamine Hcl 100 Mg Tablet) 100 mg PO BEDTIME [facility] Last Admin: 06/03/21 20:22 Dose: 100 mg Documented by: JIMBO Labs CBC & Chem 7: 06/01/21 08:56 06/03/21 06:21 Labs: Laboratory Results - last 24 hr 06/03/21 06/03/21 06/04/21 15:58 19:48 07:27 POC Glucose 358 H* 290 H 253 H 06/04/21 11:25 POC Glucose 286 H Assessment and Plan (1) Alcohol withdrawal: Status: Acute (2) Chest pain: Status: Acute (3) Hypomagnesemia: Status: Acute (4) Acute hyponatremia: Status: Acute Plan 65yo M with alcohol use disorder, COPD, DM2, HFpEF, and HTN recently admitted to the ICU here with severe hyponatremia and alcohol withdrawal presenting with noncardiac chest pain, COPD exacerbation, alcohol withdrawal, and electrolyte abnormalities. # alcohol withdrawal - no withdrawal symptoms, no tremor,continue phenobarbital taper, and hydroxyzine as needed for anxiety, will increase dose of hydroxyzine to 50 q.8 hours Continue thiamine/folic acid, care team eval # hyponatremia - likely beer potomania sodium improved to 139 , # hypoMg - repleted.? Repeat magnesium 1.9 # COPD exacerbation - improved will DC IV steroid continue nebulizer treatment and as needed Ventolin MDI # noncardiac chest pain ,no recurrent episode, flat troponin, EKG with no ischemia # HTN - BP stable continue lisinopril # DM2 - blood sugars in 300s, continue Lantus increased to 30 unit (home does 45 units at bedtime) and adjust insulin sliding scale # VTE ppx - LMWH # code - full disposition home at a.m. Quality Stroke Does the patient have a stroke diagnosis?: No VTE Prior VTE?: No VTE Risk Level:: Medical - moderate - high VTE Device Contraindication: N/A - Device Ordered VTE Drug Contraindication: N/A - Med Ordered
[2021-06-04 15:19] VITALS: BP 102/49; PULSE 89; RESP 16; TEMP 36; O2SAT 94
[2021-06-04 16:21] LABS: Glucose, Whole Blood 295 mg/dL (60-115)
[2021-06-04] MEDS: hydrOXYzine HCL 50 MG TABLET PO (16:55)
[2021-06-04] MEDS: Tamsulosin HCL 0.4 MG CAPSULE PO (16:55)
[2021-06-04] MEDS: Folic Acid 1 MG TABLET PO (16:55)
[2021-06-04 19:21] VITALS: BP 106/53; PULSE 84; RESP 14; TEMP 36.2; O2SAT 97
[2021-06-04 20:16] LABS: Glucose, Whole Blood 317 mg/dL (60-115)
[2021-06-04] MEDS: Aspirin Enteric Coated 81 MG TABLET.DR PO (20:46)
[2021-06-04] MEDS: Insulin Glargine,Hum.rec.anlog 100 UNIT/ML 10 ML VIAL 30 UNIT SUBCUT (20:47)
[2021-06-04] MEDS: Atorvastatin Calcium 10 MG TABLET PO (20:47)
[2021-06-04] MEDS: Thiamine HCL 100 MG TABLET PO (20:47)
[2021-06-05 04:00] VITALS: BP 139/67; PULSE 82; RESP 18; TEMP 36.4; O2SAT 93
[2021-06-05 07:25] LABS: Glucose, Whole Blood 124 mg/dL (60-115)
[2021-06-05 08:00] VITALS: BP 113/73; PULSE 99; RESP 20; TEMP 36.3; O2SAT 98
[2021-06-05] MEDS: PHENobarbitaL 15 MG TABLET PO ×2 (09:11→20:20)
[2021-06-05] MEDS: guaiFENesin DM 100/10/5 ML 5 ML SYRUP 10 ML PO (09:11)
[2021-06-05] MEDS: Multivitamin TABLET 1 TAB PO (09:12)
[2021-06-05] MEDS: busPIRone HCl 5 MG TABLET PO ×2 (09:12→20:20)
[2021-06-05] MEDS: 0.9 % Sodium Chloride Flush 3 ML SYRINGE IVFLUSH ×2 (09:12→20:21)
[2021-06-05] MEDS: lisinopriL 10 MG TABLET PO (09:12)
[2021-06-05] MEDS: Gabapentin 300 MG CAPSULE 600 MG PO ×3 (09:12→20:20)
[2021-06-05 11:11] VITALS: BP 117/69; PULSE 89; RESP 20; TEMP 36.4; O2SAT 96
[2021-06-05 11:28] LABS: Glucose, Whole Blood 321 mg/dL (60-115)
--- NOTE | 2021-06-05 11:32 | MHC.CM.PN ---
CM met with Patient at bedside to address dc planning and IMM verbally (COVID +) (original given to Patient and a copy placed on the chart). Patient adamantly does not feel ready to go home. Patient expressed a desire to appeal the dc but refused to make a phone call. Patient is requesting placement in a SNF and CM has initiated a BROAD SNF SEARCH and will update the referral with PT terrence as soon as it is available.CM will continue to follow.
[2021-06-05] MEDS: Insulin Lispro 100 UNIT/ML 3 ML VIAL SUBCUT ×3 (11:53→20:20)
[2021-06-05] MEDS: Enoxaparin Sodium 40 MG/0.4 ML SYRINGE SUBCUT (14:44)
[2021-06-05] MEDS: Throat Lozenge, Medicated LOZENGE 1 LOZENGE MUCOUS MEM ×2 (15:03→17:33)
[2021-06-05 15:23] VITALS: BP 98/60; PULSE 84; RESP 17; TEMP 36.8; O2SAT 96
[2021-06-05 15:37] LABS: COVID-19 Test Negative (Negative)
[2021-06-05 15:57] LABS: Glucose, Whole Blood 196 mg/dL (60-115)
--- NOTE | 2021-06-05 16:23 | P.PNIM_ITS ---
Subjective Subjective Date of Service: 06/06/21 Interval History: Complaining of sore throat and hoarseness of voice, he feels he is not ready for discharge, denies nausea, vomiting, no abdominal pain, no chest pain, continue to have dry cough. Physical Exam Verdana 4l Vital Signs: Verdana 4d Verdana 4d Vital Signs: Verdana 4d Verdana 4Bd Last Vital Signs Verdana 4d Senior C Software Developer New 4d Senior C Software Developer New 4d Temp 98.2 F 06/05/21 15:23 Senior C Software Developer New 4d Pulse 84 06/05/21 15:23 Senior C Software Developer New 4d Resp 17 06/05/21 15:23 BP 98/60 06/05/21 15:23 Pulse Ox 96 06/05/21 15:23 BMI result Body Mass Index 34.4 Const: Other: Gen:? Awake,Alert, no distress HEENT: sclera anicteric, moist mucus membranes Neck: supple, no adenopathy Lungs:? Clear to auscultation, no wheeze no respiratory distress Heart:? Regular rate rhythm,no murmurs Abd: soft, obese, non-tender, non-distended Ext: no edema Skin: warm/well-perfused Neuro: no focal findings Psych: appropriate affect Objective Data Active Medications Acetaminophen (Acetaminophen 325 Mg Tablet) 650 mg PO Q6H PRN PRN Reason: Pain, Mild (Pain Scale 1-3) Albuterol Sulfate (Albuterol Sulfate (0.083%) 2.5 Mg/3 Ml Vial.Neb) 2.5 mg INHALE Q2H PRN PRN Reason: Shortness of Breath/Wheezing Albuterol Sulfate (Albuterol Sulfate 90 Mcg 8 Gm Inhaler) 2 puff INHALE RQ4H PRN PRN Reason: sob Last Admin: 06/02/21 23:44 Dose: 2 puff Documented by: PIEDAD Albuterol/Ipratropium (Albuterol/Iprat 2.5/0.5mg 3 Ml Ampul.Neb) 3 ml INHALE RQ4H WHILE AWAKE [facility] Last Admin: 06/05/21 15:24 Dose: Not Given Documented by: JENIFFER Non-Admin Reason: Patient Refused Aspirin (Aspirin Enteric Coated 81 Mg Tablet.) 81 mg PO BEDTIME [facility] Last Admin: 06/04/21 20:46 Dose: 81 mg Documented by: MARSHALL Atorvastatin Calcium (Atorvastatin Calcium 10 Mg Tablet) 10 mg PO BEDTIME [facility] Last Admin: 06/04/21 20:47 Dose: 10 mg Documented by: MARSHALL Benzocaine (Throat Lozenge, Medicated Lozenge) 1 lozenge MUCOUS MEM Q2H PRN PRN Reason: Sore Throat Last Admin: 06/05/21 15:03 Dose: 1 lozenge Documented by: BORIS Buspirone HCl (Buspirone Hcl 5 Mg Tablet) 5 mg PO BID [facility] Last Admin: 06/05/21 09:12 Dose: 5 mg Documented by: BORIS Enoxaparin Sodium (Enoxaparin Sodium 40 Mg/0.4 Ml Syringe) 40 mg SUBCUT Q24H [facility] Last Admin: 06/05/21 14:44 Dose: 40 mg Documented by: BORIS Folic Acid (Folic Acid 1 Mg Tablet) 1 mg PO DAILY@1700 [facility] Last Admin: 06/04/21 16:55 Dose: 1 mg Documented by: DIANA Gabapentin (Gabapentin 300 Mg Capsule) 600 mg PO TID [facility] Last Admin: 06/05/21 14:44 Dose: 600 mg Documented by: BORIS Guaifenesin/Dextromethorphan (Guaifenesin Dm 100/10/5 Ml 5 Ml Syrup) 10 ml PO Q6H PRN PRN Reason: cough Last Admin: 06/05/21 09:11 Dose: 10 ml Documented by: BORIS Hydroxyzine HCl (Hydroxyzine Hcl 50 Mg Tablet) 50 mg PO Q8H PRN PRN Reason: Anxiety Last Admin: 06/04/21 16:55 Dose: 50 mg Documented by: DIANA Insulin Glargine (Insulin Glargine,Hum.Rec.Anlog 100 Unit/Ml 10 Ml Vial) 30 unit SUBCUT BEDTIME [facility] Last Admin: 06/04/21 20:47 Dose: 30 unit Documented by: MARSHALL Insulin Human Lispro (Insulin Lispro 100 Unit/Ml 3 Ml Vial) 0 unit SUBCUT QIDACHS [facility]; Protocol Last Admin: 06/05/21 11:53 Dose: 14 unit Documented by: BORIS Lisinopril (Lisinopril 10 Mg Tablet) 10 mg PO DAILY [facility]; Protocol Last Admin: 06/05/21 09:12 Dose: 10 mg Documented by: BORIS Medication (No Benzodiazepines) 1 each MISCELLANE DAILY [facility] Multivitamins/Vitamin C (Multivitamin Tablet) 1 tab PO DAILY [facility] Last Admin: 06/05/21 09:12 Dose: 1 tab Documented by: BORIS Omeprazole (Omeprazole 20 Mg Capsule.Dr) 20 mg PO BID@0630,1630 [facility] Last Admin: 06/05/21 06:45 Dose: Not Given Documented by: MARSHALL Non-Admin Reason: Patient Asleep Ondansetron HCl (Ondansetron Hcl 4 Mg/2 Ml Vial) 4 mg IVPUSH Q8H PRN PRN Reason: Nausea and Vomiting Phenobarbital (Phenobarbital 15 Mg Tablet) 15 mg PO BID [facility]; Protocol Stop: 06/05/21 21:01 Last Admin: 06/05/21 09:11 Dose: 15 mg Documented by: BORIS Phenobarbital (Phenobarbital 15 Mg Tablet) 15 mg PO DAILY [facility]; Protocol Stop: 06/07/21 09:01 Sodium Chloride (0.9 % Sodium Chloride Flush 3 Ml Syringe) [facility] Last Admin: 06/05/21 09:12 Dose: 3 ml Documented by: BORIS Tamsulosin HCl (Tamsulosin Hcl 0.4 Mg Capsule) 0.4 mg PO DAILY@1700 [facility] Last Admin: 06/04/21 16:55 Dose: 0.4 mg Documented by: DIANA Thiamine HCl (Thiamine Hcl 100 Mg Tablet) 100 mg PO BEDTIME [facility] Last Admin: 06/04/21 20:47 Dose: 100 mg Documented by: MARSHALL Labs CBC & Chem 7: 06/01/21 08:56 06/03/21 06:21 Labs: Laboratory Results - last 24 hr 06/04/21 06/05/21 06/05/21 20:09 07:12 11:10 POC Glucose 317 H 124 H 321 H COVID-19 (ELIER) COVID-19 Clin Com 06/05/21 06/05/21 14:56 15:52 POC Glucose 196 H COVID-19 (ELIER) Negative COVID-19 Clin Com See Note Assessment and Plan (1) Alcohol withdrawal: Status: Acute (2) Chest pain: Status: Acute (3) Hypomagnesemia: Status: Acute (4) Acute hyponatremia: Status: Acute Plan 65yo M with alcohol use disorder, COPD, DM2, HFpEF, and HTN recently admitted to the ICU here with severe hyponatremia and alcohol withdrawal presenting with noncardiac chest pain, COPD exacerbation, alcohol withdrawal, and electrolyte abnormalities. # alcohol withdrawal - no withdrawal symptoms, no tremor,continue phenobarbital taper, and hydroxyzine as needed for anxiety Continue thiamine/folic acid, care team eval, counseling done strongly recommend to abstain from alcohol. # hyponatremia - likely beer potomania sodium improved to 139 # hypoMg - repleted.? Repeat magnesium 1.9 , due to poor nutrition # acute hypoxic respiratory failure due to COVID-19 Hypoxia resolved, finish 3 day course of remdesivir, status post IV Solu Medrol, will place on 5 days of Decadron to finish a total 10 day course cont symptomatic treatment with cough medication,tylenol, add Cepacol for sore throat # mild acute COPD exacerbation - resolved s/p IV steroid continue nebulizer treatment and as needed Ventolin MDI # noncardiac chest pain ,no recurrent episode, flat troponin, EKG with no ischemia # HTN - BP stable continue lisinopril # DM2 - blood sugars in 300s, continue Lantus increased to 30 unit (home does 45 units at bedtime) and adjust insulin sliding scale # VTE ppx - LMWH # code - full disposition home O2 eval obtained, supervisor case loading helping for safe discharge Quality Stroke Does the patient have a stroke diagnosis?: No VTE Prior VTE?: No VTE Risk Level:: Medical - moderate - high VTE Device Contraindication: N/A - Device Ordered VTE Drug Contraindication: N/A - Med Ordered
[2021-06-05] MEDS: Tamsulosin HCL 0.4 MG CAPSULE PO (17:32)
[2021-06-05] MEDS: Folic Acid 1 MG TABLET PO (17:32)
[2021-06-05] MEDS: Omeprazole 20 MG CAPSULE.DR PO (17:32)
[2021-06-05] MEDS: dexAMETHasone 6 MG TABLET PO ×2 (17:33)
[2021-06-05 19:06] VITALS: BP 91/51; PULSE 78; RESP 14; TEMP 36.3; O2SAT 94
[2021-06-05 20:06] LABS: Glucose, Whole Blood 234 mg/dL (60-115)
[2021-06-05] MEDS: Aspirin Enteric Coated 81 MG TABLET.DR PO (20:20)
[2021-06-05] MEDS: Thiamine HCL 100 MG TABLET PO (20:20)
[2021-06-05] MEDS: Atorvastatin Calcium 10 MG TABLET PO (20:20)
[2021-06-05] MEDS: hydrOXYzine HCL 50 MG TABLET PO (20:20)
[2021-06-05] MEDS: Insulin Glargine,Hum.rec.anlog 100 UNIT/ML 10 ML VIAL 30 UNIT SUBCUT (20:21)
[2021-06-05 23:22] VITALS: BP 193/93; PULSE 91; RESP 18; TEMP 36.7; O2SAT 97
[2021-06-06] MEDS: Calcium Carbonate 750 MG TAB.CHEW 1500 MG PO (00:27)
[2021-06-06 00:36] VITALS: BP 140/55
[2021-06-06] MEDS: diphenhydrAMINE HCL 25 MG TABLET 50 MG PO (00:45)
[2021-06-06] MEDS: Prochlorperazine Maleate 5 MG TABLET PO (00:53)
[2021-06-06 07:47] LABS: Glucose, Whole Blood 244 mg/dL (60-115)
[2021-06-06 07:56] VITALS: BP 122/59; PULSE 84; RESP 18; TEMP 36.5; O2SAT 98
[2021-06-06] MEDS: dexAMETHasone 6 MG TABLET PO (08:24)
[2021-06-06] MEDS: PHENobarbitaL 15 MG TABLET PO (08:24)
[2021-06-06] MEDS: Multivitamin TABLET 1 TAB PO (08:24)
[2021-06-06] MEDS: Insulin Lispro 100 UNIT/ML 3 ML VIAL SUBCUT (08:24)
[2021-06-06] MEDS: Gabapentin 300 MG CAPSULE 600 MG PO (08:24)
[2021-06-06] MEDS: 0.9 % Sodium Chloride Flush 3 ML SYRINGE IVFLUSH (08:25)
[2021-06-06] MEDS: busPIRone HCl 5 MG TABLET PO (08:25)
[2021-06-06] MEDS: lisinopriL 10 MG TABLET PO (08:25)
[2021-06-06] MEDS: Throat Lozenge, Medicated LOZENGE 1 LOZENGE MUCOUS MEM (10:11)
--- NOTE | 2021-06-06 10:35 | P.CDIC_ITS ---
CDI Concurrent Query Documentation Clarification: PHYSICIAN'S DOCUMENTATION REQUEST Date of Query: 06/06/21 1035 Patient Name: Kenneth Aragon Admit Date: 06/01/21 Dear Doctor, Please review the following and update the documentation accordingly. Clinical Indicators: Current documentation indicates the patient presented on 06/01/21 with chest pain, shortness of breath, oxygen SAT 88%. Subsequent documentation with a diagnosis of COVID-19 and/or COVID-19 positive results on 06/01/21. Additional clinical indicators from the record include: Samm Ivory Risk Factors/Clinical Indicators/Treatments Samm langford Attending progress note of 06/04/21: Nataly Ivory ADDENDUM Samm langford Late entry COVID-19 infection positive on PCR, patient finish treatment with 3 days of remdesivir, hypoxia resolved, continue supportive care Acute hypoxic respiratory failure resolved was likely due to COPD exacerbationexacerbation and COVID infec Based on the above, please clarify in the Progress Notes if there is a relationship between the symptoms necessitating the admission and COVID-19. * Yes, the symptoms necessitating the admission are related to COVID-19 * No, the symptoms necessitating the admission are not related to COVID-19 * Other (please specify) * Unable to determine Use of terms such as suspected, likely, concern for, or probable (associated with a specific diagnosis that is being evaluated, monitored, or treated as if it exists) are acceptable and can be coded in the inpatient setting, when documented at the time of discharge. Thank you, Phylicia Da Silva RN Extension: [phone] Please use your independent medical judgment in providing your response. THIS QUERY IS PART OF THE PERMANENT MEDICAL RECORD Provider Response: Other Other Diagnosis: patient not admitted due to COVID-19 infection.
--- NOTE | 2021-06-06 10:45 | P.DS_ITS ---
DS: Providers Provider Date of Service: 06/05/21 Date of admission: 06/01/21 13:45 Primary care physician: Jaylen Cummings MD Consults: 06/01/21 13:21 Addiction Medicine Routine Consulting Provider: Madelyn Stanford Reason for consultation: EtOH Consult to Care Team Routine Comment: Reason for consultation: EtOH DS: Diagnosis Discharge Diagnosis (1) Alcohol withdrawal: Status: Acute (2) Chest pain: Status: Acute (3) Hypomagnesemia: Status: Acute (4) Acute hyponatremia: Status: Acute DS: Summary Hospital Course Hospital Course: History of presenting illness Date of Service: 06/01/21 Chief Complaint: cough, chest discomfort 65yo M with alcohol use disorder, COPD, DM2, HFpEF, and HTN who was just discharged from our service 05/19/21 after being admitted to the ICU 05/12/21 with severe hyponatremia [Na 117] and alcohol intoxication complicated by encephalopathy, LAUREN, COPD exacerbation, and alcohol withdrawal.? He was treated with volume resuscitation and phenobarbital taper and discharged home with VNA services.? Sodium on the day of discharge was normal at 135.? He came in today with a 2-3 day history of mid-sternal chest pressure along with ongoing cough and dyspnea.? He has been drinking at least 5 servings of beer daily for the past 5 days.? No fever or purulent sputum.? He's been vaccinated with 3 doses of mRNA Covid-19 vaccine.? Denies abd pain, nausea, vomiting, hematochezia, hematemesis, or melena.? He has not eaten in 2 days.? In the ED, he was noted to have hypomagnesemia, hyponatremia [Na 129], and alcohol withdrawal.? EKG without ischemic changes and two serial hs-troponin measurements were flat.? He was given IV normal saline, IV methylprednisolone, IV magnesium, and 4 mg of IV lorazepam.? He was also given a nebulizer treatment.? He was then started on phenobarbital taper.? Due to inability to achieve peripheral IV access, a central IJ catheter was placed. Hospital course 65yo M with alcohol use disorder, COPD, DM2, HFpEF, and HTN recently admitted to the ICU with severe hyponatremia and alcohol withdrawal presenting with noncardi ac chest pain, COPD exacerbation, alcohol withdrawal, and electrolyte abnormalities sodium of 129 and magnesium of 1.5, patient admitted to medical floor treated with phenobarb protocol, hydroxyzine for anxiety and was continued on thiamine folic acid, Patient COVID test came back positive, therefore he was placed on isolation unit, and treated with 3 dosages of remdesivir and IV steroids, acute hypoxic respiratory failure resolved rapidly currently finger oximetry 96 on room air Recommend to continue supportive care with cough medication, cough drops, and Tylenol as needed, take 5 more days of Decadron 6 mg daily. Low Sodium improved with fluid restriction was likely due to beer potomania and magnesium repleted and normalized currently patient is tolerating diet, no nausea no vomiting no shortness of breath no withdrawal symptoms therefore being discharged to rehab facility, cardiac workup came back negative with flat troponins and EKG with no ischemic Mild COPD exacerbation on admission improved with IV steroids and nebulizer treatment, continue home inhalers In regard to hypertension recommend to continue lisinopril. For DM2 blood sugars in 300s likely due to steroid, but noted to have stable fasting blood sugars therefore recommend to lower dose of Lantus to 30 units and continue pre meal insulin, strongly recommend to lose weight and follow diabetic diet (take 45 units of Lantus at home) Patient being discharged to rehab for less than 30 days Time Spent with Patient Time attestation: Total time spent providing and/or coordinating discharge services: Discharge coordination time: Greater than 30 minutes Quality: Stroke Does the patient have a stroke diagnosis?: No Physical Exam Verdana 4l Vital Signs: Verdana 4d Verdana 4d Vital Signs: Verdana 4d Verdana 4Bd Last Vital Signs Verdana 4d National Coverage Specialist New 4d National Coverage Specialist New 4d Temp 97.5 F 06/05/21 11:11 National Coverage Specialist New 4d Pulse 89 06/05/21 11:11 National Coverage Specialist New 4d Resp 20 06/05/21 11:11 BP 117/69 06/05/21 11:11 Pulse Ox 96 06/05/21 11:11 BMI result Body Mass Index 34.4 Const: Other: Gen:? Awake,Alert, no distress HEENT: sclera anicteric, moist mucus membranes Neck: supple, no adenopathy Lungs:? Clear to auscultation, no wheeze no respiratory distress Heart:? Regular rate rhythm,no murmurs Abd: soft, obese, non-tender, non-distended Ext: no edema Skin: warm/well-perfused Neuro: no focal findings Psych: appropriate affect DS: Data Data Completed and Pending Completed studies during hospitalization [Text1]: Procedures Detoxification Services for Substance Abuse Treatment (05/12/21) Insertion of Infusion Device into Superior Vena Cava, Percutaneous Approach (05/12/21) Labs on day of discharge: Laboratory Results - last 24 hr 06/04/21 06/04/21 06/05/21 16:03 20:09 07:12 POC Glucose 295 H 317 H 124 H 06/05/21 11:10 POC Glucose 321 H Discharge Plan Discharge Patient Disposition: Xfer SNF Discharge Diagnosis: Alcohol withdrawal Hyponatremia COPD exacerbation Noncardiac chest pain Referrals: [facility] [Outside] - 1 Week Name,MD Jaylen [Primary Care Provider] - 1 Week Discharge Medications: New hydroxyzine HCl 50 mg Tablet 50 mg PO Q8H PRN (Reason: Anxiety) Qty: 20 0RF dextromethorphan-guaifenesin 10-100 mg/5 mL Syrup 10 ml PO Q6H PRN (Reason: cough) Qty: 240 0RF Cepacol Sore Throat (khai-men) 15-3.6 mg Lozenge 1 bre mucous membrane Q2H PRN (Reason: Sore Throat) Qty: 30 0RF dexamethasone [Decadron] 6 mg tablet 6 mg PO DAILY Qty: 5 0RF Continued multivitamin Tablet 1 tab PO DAILY 0RF albuterol sulfate 2.5 mg /3 mL (0.083 %) solution for nebulization 1 amp inhalation QID 0RF thiamine HCl (vitamin B1) 100 mg tablet 1 tab PO BEDTIME 0RF (DME) FreeStyle Lite Strips Strip MISCELLANEOUS QID 0RF insulin aspart U-100 [Novolog U-100 Insulin aspart] 100 unit/mL solution 15 unit subcut TIDAC 0RF simvastatin 20 mg tablet 1 tab PO BEDTIME 0RF lisinopril 10 mg tablet 1 tab PO DAILY 0RF gabapentin 300 mg capsule 2 cap PO TID 0RF folic acid 1 mg tablet 1 tab PO DAILY@1700 0RF albuterol sulfate 90 mcg/actuation HFA aerosol inhaler 2 puff inhalation QID PRN (Reason: Wheezing) 0RF Fish Oil 340-1,000 mg capsule 1 cap PO DAILY 0RF buspirone 5 mg tablet 5 mg PO BID 0RF aspirin 81 mg tablet,delayed release (DR/EC) 1 tab PO BEDTIME 0RF tamsulosin 0.4 mg capsule 1 cap PO DAILY@1700 0RF ramelteon 8 mg tablet 1 tab PO BEDTIME 0RF celecoxib 50 mg capsule 1 cap PO BID 0RF omeprazole 20 mg capsule,delayed release(DR/EC) 1 cap PO BID@0630,1630 0RF Changed Lantus U-100 Insulin 100 unit/mL solution 30 unit subcut BEDTIME Qty: 0 0RF Discharge Orders: Discharge Order (Routine); Ordered 06/05/21 Ordered By: Mary Ann Gamez Diet: diabetic diet Activity on Discharge: As tolerated Stand Alone Forms: Patient Portal Discharge page Care Plan Goals: Alcohol abuse and withdrawal/electrolyte abnormality due to beer potomania, COPD exacerbation, strongly recommend to abstain from alcohol use hydroxyzine for anxiety Use all home inhalers as before Health Concerns: Diabetes mellitus, continue diabetic diet Lantus and pre meal insulin, home dose of Lantus 45 units reduced to 30 units since noted to have fasting blood sugars in 120 Strongly recommend to abstain from smoking Take all home medications as before Being discharged to rehab facility for less than 30 days Plan of Treatment: Outpatient follow-up with primary care physician in 7-10 days Assessment: per discharge summary
--- NOTE | 2021-06-06 11:48 | MHC.CM.PN ---
auth rerceived pt dcd set for 12:30 today to [facility]
--- NOTE | 2021-06-06 12:27 | MHC.CM.PN ---
ot being dcd today to [facility]i at 12:30 message left for rich smith
== END 2021-06-06 12:45 | disposition skilled nursing facility (03) | DRG 177 ==
LOC: HO.ED 07:02 → HO.EDOVER 14:16 → HO.S3 19:22 → HO.IMC 06-02 09:44 → HO.S3 06-02 09:47 → HO.IMC 06-02 10:56
PROVIDERS: Admitting Provider Family Medicine; Emergency Provider Emergency Medicine; PCP Internal Medicine Geriatric Medicine; Visit Provider Hospitalist
DX: U07.1 COVID-19 (principal); J96.01 Acute respiratory failure with hypoxia; J44.0 Chronic obstructive pulmonary disease with (acute) lower respiratory infection; F10.239 Alcohol dependence with withdrawal, unspecified; E87.1 Hypo-osmolality and hyponatremia; I50.32 Chronic diastolic (congestive) heart failure; E11.9 Type 2 diabetes mellitus without complications; I11.0 Hypertensive heart disease with heart failure; E83.42 Hypomagnesemia; Z79.4 Long term (current) use of insulin; Z79.82 Long term (current) use of aspirin; Z79.899 Other long term (current) drug therapy
CPT/HCPCS: 36415; 70450; 71045; 72125; 80048; 80076; 81003; 82947; 83735; 83880; 84300; 84484; 85025; 87633; 87635; 93005; 94640; 96365; 96366; 96372; 96375; 96376; 97162; 99285; J0248; J1650; J2060; J2405; J2560; J2920; J2930; J3475; J8540; Q0163

== ENCOUNTER 2021-06-22 20:01 | Inpatient (IN) | payer OTHER, SELFPAY ==
--- NOTE | ~2021-06-22 | CT_ITS ---
EXAMINATION: CT CHEST, ABDOMEN AND PELVIS WITHOUT CONTRAST. CLINICAL INFORMATION: Abdominal pain. EtOH. Chest pain, shortness breath, encephalopathy . COMPARISON: 01/10/2021 CT scan.. TECHNIQUE: Multidetector volumetric imaging was performed from the thoracic inlet through the pubic symphysis without intravenous contrast. Sagittal and coronal reformatted images were obtained on the technologist workstation. This CT examination was performed using dose optimization techniques as appropriate, variously including the following: *Automated exposure control *Adjustment of mA and/or kV according to patient size (this includes techniques or standardized protocols for targeted exams where dose is matched to indication/reason for exam; i.e. extremities or head) *Use of iterative reconstruction technique DLP: 1812 mGy-cm FINDINGS: CHEST: Lungs: Patchy bilateral airspace disease is seen with a peripheral predominance. There is tree-in-bud opacification with some peripheral branching as well as opacification of the bronchi more so in the dependent lower lobes. Infectious etiology or solid aspiration could have this appearance. This is new from the visualized lung bases on the 01/10/2021 study. Mediastinum: Vascular calcification within the aorta and coronary vessels. There is a prominent 1.4 cm short axis right paratracheal lymph node that demonstrates a fatty amie. Shotty mediastinal lymph nodes otherwise. Pericardium/Pleura: No significant effusion. No pleural mass or thickening. Chest Wall/Axilla: Unremarkable. ABDOMEN/PELVIS: Peritoneal Space:No significant free air or free fluid identified. Liver, Gallbladder, Biliary Tree: The non contrast liver is normal in size, shape, and attenuation. No focal hepatic lesion or biliary ductal dilatation is present. The gallbladder is unremarkable with no evidence of radiopaque gallstones, gallbladder wall thickening, or obvious pericholecystic inflammatory changes. Pancreas: Unremarkable. Spleen: Unremarkable. Adrenal Glands: Unremarkable. Kidneys and Ureters: Mild bilateral perinephric stranding. Do not appreciate any intrarenal calculi. No definitive ureteric calculi. The low-attenuation cortical cysts were better seen on the prior noncontrast study. Bladder: Unremarkable. Gastrointestinal Tract: Scattered colonic diverticulosis. No evidence for diverticulitis. Normal-appearing appendix in the right lower quadrant. Visualized small bowel unremarkable Abdominal Wall: No significant hernia is appreciated. Lymphovascular Structures: Vascular calcification within the aorta iliac system. No bulky retroperitoneal or mesenteric adenopathy. Pelvic Viscera: Unremarkable. Osseus Structures: Unremarkable. CT/CT abdomen pelvis wo con IMPRESSION: When compared to the prior study there is worsened bilateral patchy airspace disease. This has a tree-in-bud pattern with distal impacted bronchi. Infectious etiology would be suspected although silent aspiration could have a similar CT appearance and clinical correlation would be helpful. Chronic appearing changes in the abdomen and pelvis.
--- NOTE | ~2021-06-22 | XR_ITS ---
EXAMINATION: XR CHEST CLINICAL INFORMATION: Attempted left subclavian line, rule out pneumothorax COMPARISON: 06/22/2021 TECHNIQUE: Frontal view of the chest was obtained. FINDINGS: Lung volumes are symmetric. There is mild patchy opacity at the right lung base. No evidence of pneumothorax, pleural effusion, or pulmonary edema. Cardiac size is within normal limits. Calcification is present at the aortic arch. Partially visualized right shoulder arthroplasty hardware. XR/XR chest 1V IMPRESSION: No pneumothorax. Patchy right basilar opacity, with additional opacities better demonstrated on recent CT 06/22/2021.
--- NOTE | 2021-06-22 20:09 | ED.ALCOHOL ---
HPI - Alcohol General Chief Complaint: Dyspnea <Prema Ceron NP - Last Filed: 06/22/21 23:48> Stated Complaint: Alcohol withdrawl <Prema Ceron NP - Last Filed: 06/22/21 23:48> Time Seen by Provider: 06/23/21 01:58 <Prema Ceron NP - Last Filed: 06/22/21 23:48> Source: patient and EMS <Prema Ceron NP - Last Filed: 06/22/21 23:48> Mode of arrival: EMS <Prema Ceron NP - Last Filed: 06/22/21 23:48> Limitations: no limitations <Prema Ceron NP - Last Filed: 06/22/21 23:48> History of Present Illness HPI narrative: 65-year-old male presents via EMS for chest pain, abdominal pain, shortness breath and alcohol withdrawal syndrome. <Prema Ceron NP - Last Filed: 06/22/21 23:48> MD complaint: alcohol intoxication and alcohol withdrawal <Prema Ceron NP - Last Filed: 06/22/21 23:48> Last drink: Just prior to admission <Prema Ceron NP - Last Filed: 06/22/21 23:48> Chronic alcohol use: Yes <Prema Ceron NP - Last Filed: 06/22/21 23:48> Previous visits for alcohol intoxication: Yes <Prema Ceron NP - Last Filed: 06/22/21 23:48> Recent trauma: No <Prema Ceron NP - Last Filed: 06/22/21 23:48> Associated symptoms: abdominal pain and other (Chest pain and diarrhea) <Prema Ceron NP - Last Filed: 06/22/21 23:48> Treatments prior to arrival: none <Prema Ceron NP - Last Filed: 06/22/21 23:48> Related Data Home Medications: Home Medications Medication Instructions Recorded Confirmed albuterol sulfate 1 amp INHALATION QID 12/29/20 06/22/21 albuterol sulfate 90 mcg/actuation 2 puff INHALATION QID PRN 12/29/20 06/22/21 aerosol inhaler blood sugar diagnostic (FreeStyle 12/29/20 02/04/21 Lite Strips) folic acid 1 mg tablet 1 tab PO DAILY@1700 12/29/20 06/22/21 insulin aspart U-100 100 unit/mL 15 unit SUBCUT TIDAC 12/29/20 06/22/21 subcutaneous solution (Novolog U-100 Insulin aspart) lisinopril 10 mg tablet 1 tab PO DAILY 12/29/20 06/22/21 multivitamin 1 tab PO DAILY 12/29/20 06/22/21 omega-3 fatty acids-fish oil 340 1 cap PO DAILY 12/29/20 06/22/21 mg-1,000 mg capsule (Fish Oil) simvastatin 20 mg tablet 1 tab PO BEDTIME 12/29/20 06/22/21 thiamine HCl (vitamin B1) 100 mg 1 tab PO BEDTIME 12/29/20 06/22/21 tablet aspirin 81 mg tablet,delayed 1 tab PO BEDTIME 02/04/21 06/22/21 release buspirone 5 mg tablet 5 mg PO BID 02/04/21 06/22/21 celecoxib 50 mg capsule 1 cap PO BID 05/12/21 06/22/21 ramelteon 8 mg tablet 1 tab PO BEDTIME 05/12/21 06/22/21 tamsulosin 0.4 mg capsule 1 cap PO DAILY@1700 05/12/21 06/22/21 omeprazole 20 mg capsule,delayed 1 cap PO BID@0630,1630 06/01/21 06/22/21 release famotidine 40 mg tablet 1 tab PO BID 06/22/21 06/22/21 fluticasone 250 mcg-salmeterol 50 1 puff INHALATION BID 06/22/21 06/22/21 mcg/dose blistr powdr for inhalation (Lori Inhcheikh) Previous Rx's Medication Instructions Recorded dexamethasone 6 mg tablet 6 mg PO DAILY #5 tab 06/05/21 (Decadron) hydroxyzine HCl 50 mg tablet 50 mg PO Q8H PRN #20 tab 06/05/21 insulin glargine 100 unit/mL 30 unit (0.3 mL) SUBCUT BEDTIME #0 06/05/21 subcutaneous solution (Lantus ml U-100 Insulin) <Prema Ceron NP - Last Filed: 06/22/21 23:48> Allergies/Adverse Reactions: Allergies Allergy/AdvReac Type Severity Reaction Status Date / Time ENVIRONMENTAL Allergy Mild SNEEZING, Uncoded 09/26/20 17:14 WATERY EYES <Prema Ceron NP - Last Filed: 06/22/21 23:48> Review of Systems Review of Systems: Constitutional: Positive withdrawal symptoms, No Fever, No Chills ENT/Mouth: No sore throat, No Rhinorrhea Eyes: No Eye Pain, No Swelling, No Redness Cardiovascular: Positive Chest Pain, No SOB Respiratory: No Cough, No Sputum Gastrointestinal: No Nausea, No Vomiting, positive Diarrhea, positive abdominal Pain Genitourinary: No Dysuria, No Hematuria Musculoskeletal: No joint pain, No Myalgias, No Joint Swelling Skin: No Skin Lesions, No rash Neuro: No Weakness, No Numbness, No Loss of Consciousness, No Dizziness, No Headache Psych: Positive alcohol abuse, No Anxiety, No Depression, No SI/HI/AH/VH Heme/Lymph: No Bruising, No Bleeding,No Lymphadenopathy Endocrine: No Polyuria, No Polydipsia <Prema Ceron NP - Last Filed: 06/22/21 23:48> Yes all other systems are reviewed and are negative <Prema Ceron NP - Last Filed: 06/22/21 23:48> [facility] Past Medical History Attestation statement: The following information was validated with the patient. <Prema Ceron NP - Last Filed: 06/22/21 23:48> Source: old records reviewed <Prema Ceron NP - Last Filed: 06/22/21 23:48> Medical History: Medical History LAUREN (acute kidney injury) Alcohol abuse COPD (chronic obstructive pulmonary disease) Diabetes mellitus type 1 Diastolic dysfunction Diastolic heart failure Fall HLD (hyperlipidemia) Hypertension Nonrheumatic aortic (valve) stenosis Obesity <Prema Ceron NP - Last Filed: 06/22/21 23:48> Family History Family History: Family History Father Diabetes Mother Diabetes <Prema Ceron NP - Last Filed: 06/22/21 23:48> Social History Social History: Social History Household Members: None Housing: Apartment Do you presently have visiting nurse or other home services: No Alcohol intake: current Alcohol intake frequency: a few times a month Alcohol type: hard liquor Patient Tobacco Use Status: Current everyday Tobacco user Tobacco use type: Cigarette Second Hand Smoke Exposure: No Advance Directives: Yes Advance Directives on File: Yes Advance Directives Date on File: 10/11/20 service: No Current occupational status: disabled <Prema Ceron NP - Last Filed: 06/22/21 23:48> Physical Exam Vital Signs: Vital Signs: Last Vital Signs Temp 97.8 F 06/23/21 00:24 Pulse 103 H 06/23/21 00:24 Resp 20 06/23/21 00:24 BP 128/61 06/23/21 00:24 Pulse Ox 93 06/23/21 00:24 BMI result Body Mass Index 33.4 <Prema Ceron NP - Last Filed: 06/22/21 23:48> Vital Signs: Last Vital Signs Temp 97.8 F 06/23/21 00:24 Pulse 103 H 06/23/21 00:24 Resp 20 06/23/21 00:24 BP 128/61 06/23/21 00:24 Pulse Ox 93 06/23/21 00:24 BMI result Body Mass Index 33.4 <Yandel Sandoval MD - Last Filed: 06/23/21 02:09> Appearance: Alert. Oriented X3. Moderate distress. Disheveled. Filthy. Covered in feces. Eyes: Pupils equal, round and reactive to light. Sclera not icteric. ENT: Pharynx normal. Dry mucous membranes. Neck: Normal inspection. Neck supple. CVS: Normal heart rate and rhythm. Pulses normal. Respiratory: No respiratory distress. Expiratory wheezing. Abdomen: Soft and nontender. Obese. Tender to palpation diffusely. No rigidity or distention. Skin: Skin warm and dry. Normal skin color. Normal skin turgor. Extremities: No lower extremity edema. Moves all extremities against resistance. Neuro: No motor deficit. No sensory deficit. Cranial nerves 2-12 intact. <Prema Ceron NP - Last Filed: 06/22/21 23:48> Course Course Course Narrative: 65-year-old male presents with chest pain, abdominal pain, diarrhea, and alcohol withdrawal. Patient was discharged from rehab last week and has been drinking every day since. Patient is extraordinarily unpleasant, covered in feces, and needs multiple redirections. Has had multiple admissions in the past for EtOH and encephalopathy with alcohol withdrawal. Last admission was 05/12/2021 for hyponatremia, alcohol withdrawal and encephalopathy. Review of records from coil taper on 05/12/2021. Last echo 04/29/2020 showed ejection fraction of 55-60%, impaired relaxation, and moderate to severe aortic stenosis with mean gradient 27 mm and aortic valve area 1.05 centimeters squared. IVC normal with greater than 50% insp collapse 22:42 IV Access initiated at this time. Multiple attempts by RN and under ultrasound guide by failed. Fluid resuscitation will start at this time. Patient's lactic acid is 2.6, I do not feel that this is sepsis and feel that this is more alcohol related. H&H is 12.3/35.5 which is consistent with prior values. Sodium is 129 will resuscitate with 1 L of fluid bolus and then 100 mL/hr. CT scan indicates chronic abdominal changes and suspicion for aspiration pneumonia. Will treat with Zosyn and azithromycin IV. Magnesium is 1.6, will replete with 2 g IV. 23:07 discussion with hospitalist regarding plan of care to admit for alcohol withdrawal, and suspicion of aspiration pneumonia. <Prema Ceron NP - Last Filed: 06/22/21 23:48> 65-year-old male presents with chest pain, abdominal pain, diarrhea, and alcohol withdrawal. Patient was discharged from rehab last week and has been drinking every day since. Patient is extraordinarily unpleasant, covered in feces, and needs multiple redirections. Has had multiple admissions in the past for EtOH and encephalopathy with alcohol withdrawal. Last admission was 05/12/2021 for hyponatremia, alcohol withdrawal and encephalopathy. Review of records from coil taper on 05/12/2021. Last echo 04/29/2020 showed ejection fraction of 55-60%, impaired relaxation, and moderate to severe aortic stenosis with mean gradient 27 mm and aortic valve area 1.05 centimeters squared. IVC normal with greater than 50% insp collapse 22:42 IV Access initiated at this time. Multiple attempts by RN and under ultrasound guide by failed. Fluid resuscitation will start at this time. Patient's lactic acid is 2.6, I do not feel that this is sepsis and feel that this is more alcohol related. H&H is 12.3/35.5 which is consistent with prior values. Sodium is 129 will resuscitate with 1 L of fluid bolus and then 100 mL/hr. CT scan indicates chronic abdominal changes and suspicion for aspiration pneumonia. Will treat with Zosyn and azithromycin IV. Magnesium is 1.6, will replete with 2 g IV. 23:07 discussion with hospitalist regarding plan of care to admit for alcohol withdrawal, and suspicion of aspiration pneumonia. 0206: Nurses state that they lost the patient's peripheral line, there was no external jugular that I could easily visualize therefore I proceeded to put a right subclavian central line in the patient. He initially consented to the procedure and during the procedure he became very agitated and started yelling. He insisted that I withdraw the finer needle. Attempted to calm him down but he threatened to punch me if I did not take the finer needle out immediately. I will obtain a one view chest x-ray to make sure there is no pneumothorax. I will change the patient's antibiotics to ceftriaxone 1 g IM and azithromycin 500 mg orally. I will discuss this with the covering hospitalist. Patient did receive Ativan 2 mg orally prior to the procedure. <Yandel Sandoval MD - Last Filed: 06/23/21 02:09> Consultations Consultation #1: Kellen <Prema Ceron NP - Last Filed: 06/22/21 23:48> Time: 23:09 <Prema Ceron NP - Last Filed: 06/22/21 23:48> MDM - Alcohol Differential Diagnosis Differential diagnosis: Likely alcohol dependence, alcohol withdrawal delirium, hypomagnesemia, alcohol intoxication, alcohol ketoacidosis, alcohol withdrawal syndrome and alcohol withdrawal seizure <Prema Ceron NP - Last Filed: 06/22/21 23:48> Medical Records Attestation: I reviewed the patient's medical records. <Prema Ceron NP - Last Filed: 06/22/21 23:48> Lab Data Attestation: I reviewed the patient's lab results. <Prema Ceron NP - Last Filed: 06/22/21 23:48> Result diagrams: : 06/22/21 20:54 02/13/22 20:54 <Prema Avilesto, MANAGER SOCIAL RESPONSIBILITY - Last Filed: 06/22/21 23:48> Labs: Lab Results 06/22/21 06/22/21 06/22/21 Range/Units 20:27 20:54 20:54 WBC 7.0 (4.8-10.8) X10*3/uL RBC 3.96 L (4.60-5.80) X10*6/uL Hgb 12.3 L (14.0-18.0) g/dl Hct 35.5 L (42.0-52.0) % MCV 89.6 (80.0-98.0) fL MCH 31.1 (27.0-33.0) pg MCHC 34.6 (31.0-36.0) g/dl RDW 13.7 (11.0-16.0) % Plt Count 243 (160-400) X10*3/uL MPV 8.6 L (9.4-12.4) fL Immature Gran % (Auto) 0.9 H (0.0-0.4) % Neut % (Auto) 71.3 (45-73) % Lymph % (Auto) 18.4 L (20-40) % [place] % (Auto) 5.8 (2-11) % Eos % (Auto) 2.9 (0-4) % Baso % (Auto) 0.7 (0-2) % Lymph # (Auto) 1.3 (1.2-4.9) X10*3/uL [place] # (Auto) 0.4 (0.1-1.2) X10*3/uL Eos # (Auto) 0.2 (0.0-0.4) X10*3/uL Baso # (Auto) 0.1 (0.0-0.2) X10*3/uL Abs Immat Gran (auto) 0.06 H (0.00-0.03) X10*3/uL Absolute Neuts (auto) 5.0 (2.0-8.3) x10*3/uL Absolute Nucleated RBC 0.000 (0.0-0.012) X10*3/uL Nucleated RBC % (auto) 0.0 (0.0-0.2) /100WBC PT 12.4 (9.9-13.0) SEC INR 1.1 (0.9-1.1) APTT 32.2 (24.1-38.0) SEC Sodium (135-145) mmol/L Potassium (3.3-5.1) mmol/L Chloride (96-108) mmol/L Carbon Dioxide (22-29) mmol/L Anion Gap (12-20) BUN (9-16) mg/dL Creatinine (0.5-1.4) mg/dL Estim Creat Clear Calc Estimated GFR POC Glucose 209 H (60-115) mg/dL Random Glucose (60-115) mg/dL Lactic Acid (0.5-2.0) mmol/L Calcium (8.4-10.2) mg/dL Magnesium (1.6-2.6) mg/dL Total Bilirubin (0.0-1.0) mg/dL Direct Bilirubin (0.0-0.5) mg/dL AST (5-37) U/L ALT (0-40) U/L Alkaline Phosphatase (39-117) U/L Ammonia (13-55) umol/L Lactate Dehydrogenase (118-273) U/L Total Creatine Kinase (38-174) U/L B-Natriuretic Peptide (<100) pg/mL Total Protein (6.5-8.0) g/dL Albumin (3.5-5.0) g/dL Lipase (8-78) U/L Urine Color Urine Appearance Urine pH (5.0-8.0) Ur Specific [place] (1.005-1.025) Urine Protein (NEG-TRACE) MG/DL Urine Glucose (UA) (NEG) MG/DL Urine Ketones (NEG) MG/DL Urine Blood (NEG) Urine Nitrite (NEG) Ur Leukocyte Esterase (NEG) Urine Opiates Screen (Not Detect) Urine Fentanyl Screen (Not Detect) Ur Barbiturates Screen (Not Detect) Ur Phencyclidine Scrn (Not Detect) Ur Amphetamines Screen (Not Detect) U Benzodiazepines Scrn (Not Detect) Urine Cocaine Screen (Not Detect) U Marijuana (THC) Screen (Not Detect) Ethyl Alcohol mg/dL Influenza Type A (PCR) (Negative) Influenza Type B (PCR) (Negative) RSV RNA Qual (PCR) (Negative) SARS-CoV-2 RNA (RT-PCR) (Negative) 06/22/21 06/22/21 06/22/21 Range/Units 20:54 20:54 20:54 WBC (4.8-10.8) X10*3/uL RBC (4.60-5.80) X10*6/uL Hgb (14.0-18.0) g/dl Hct (42.0-52.0) % MCV (80.0-98.0) fL MCH (27.0-33.0) pg MCHC (31.0-36.0) g/dl RDW (11.0-16.0) % Plt Count (160-400) X10*3/uL MPV (9.4-12.4) fL Immature Gran % (Auto) (0.0-0.4) % Neut % (Auto) (45-73) % Lymph % (Auto) (20-40) % [place] % (Auto) (2-11) % Eos % (Auto) (0-4) % Baso % (Auto) (0-2) % Lymph # (Auto) (1.2-4.9) X10*3/uL [place] # (Auto) (0.1-1.2) X10*3/uL Eos # (Auto) (0.0-0.4) X10*3/uL Baso # (Auto) (0.0-0.2) X10*3/uL Abs Immat Gran (auto) (0.00-0.03) X10*3/uL Absolute Neuts (auto) (2.0-8.3) x10*3/uL Absolute Nucleated RBC (0.0-0.012) X10*3/uL Nucleated RBC % (auto) (0.0-0.2) /100WBC PT (9.9-13.0) SEC INR (0.9-1.1) APTT (24.1-38.0) SEC Sodium 129 L (135-145) mmol/L Potassium 4.0 (3.3-5.1) mmol/L Chloride 89 L (96-108) mmol/L Carbon Dioxide 24 (22-29) mmol/L Anion Gap 20 (12-20) BUN 6 L D (9-16) mg/dL Creatinine 0.76 (0.5-1.4) mg/dL Estim Creat Clear Calc 110.9 Estimated GFR > 60 POC Glucose (60-115) mg/dL Random Glucose 219 H (60-115) mg/dL Lactic Acid 2.6 H* (0.5-2.0) mmol/L Calcium 8.7 (8.4-10.2) mg/dL Magnesium 1.5 L (1.6-2.6) mg/dL Total Bilirubin 0.3 (0.0-1.0) mg/dL Direct Bilirubin 0.2 (0.0-0.5) mg/dL AST 11 (5-37) U/L ALT 12 (0-40) U/L Alkaline Phosphatase 86 (39-117) U/L Ammonia 25 (13-55) umol/L Lactate Dehydrogenase 148 (118-273) U/L Total Creatine Kinase 30 L D (38-174) U/L B-Natriuretic Peptide (<100) pg/mL Total Protein 6.0 L (6.5-8.0) g/dL Albumin 3.4 L (3.5-5.0) g/dL Lipase 26 (8-78) U/L Urine Color Urine Appearance Urine pH (5.0-8.0) Ur Specific [place] (1.005-1.025) Urine Protein (NEG-TRACE) MG/DL Urine Glucose (UA) (NEG) MG/DL Urine Ketones (NEG) MG/DL Urine Blood (NEG) Urine Nitrite (NEG) Ur Leukocyte Esterase (NEG) Urine Opiates Screen (Not Detect) Urine Fentanyl Screen (Not Detect) Ur Barbiturates Screen (Not Detect) Ur Phencyclidine Scrn (Not Detect) Ur Amphetamines Screen (Not Detect) U Benzodiazepines Scrn (Not Detect) Urine Cocaine Screen (Not Detect) U Marijuana (THC) Screen (Not Detect) Ethyl Alcohol mg/dL Influenza Type A (PCR) (Negative) Influenza Type B (PCR) (Negative) RSV RNA Qual (PCR) (Negative) SARS-CoV-2 RNA (RT-PCR) (Negative) 06/22/21 06/22/21 06/22/21 Range/Units 20:54 20:54 20:54 WBC (4.8-10.8) X10*3/uL RBC (4.60-5.80) X10*6/uL Hgb (14.0-18.0) g/dl Hct (42.0-52.0) % MCV (80.0-98.0) fL MCH (27.0-33.0) pg MCHC (31.0-36.0) g/dl RDW (11.0-16.0) % Plt Count (160-400) X10*3/uL MPV (9.4-12.4) fL Immature Gran % (Auto) (0.0-0.4) % Neut % (Auto) (45-73) % Lymph % (Auto) (20-40) % [place] % (Auto) (2-11) % Eos % (Auto) (0-4) % Baso % (Auto) (0-2) % Lymph # (Auto) (1.2-4.9) X10*3/uL [place] # (Auto) (0.1-1.2) X10*3/uL Eos # (Auto) (0.0-0.4) X10*3/uL Baso # (Auto) (0.0-0.2) X10*3/uL Abs Immat Gran (auto) (0.00-0.03) X10*3/uL Absolute Neuts (auto) (2.0-8.3) x10*3/uL Absolute Nucleated RBC (0.0-0.012) X10*3/uL Nucleated RBC % (auto) (0.0-0.2) /100WBC PT (9.9-13.0) SEC INR (0.9-1.1) APTT (24.1-38.0) SEC Sodium (135-145) mmol/L Potassium (3.3-5.1) mmol/L Chloride (96-108) mmol/L Carbon Dioxide (22-29) mmol/L Anion Gap (12-20) BUN (9-16) mg/dL Creatinine (0.5-1.4) mg/dL Estim Creat Clear Calc Estimated GFR POC Glucose (60-115) mg/dL Random Glucose (60-115) mg/dL Lactic Acid (0.5-2.0) mmol/L Calcium (8.4-10.2) mg/dL Magnesium (1.6-2.6) mg/dL Total Bilirubin (0.0-1.0) mg/dL Direct Bilirubin (0.0-0.5) mg/dL AST (5-37) U/L ALT (0-40) U/L Alkaline Phosphatase (39-117) U/L Ammonia (13-55) umol/L Lactate Dehydrogenase (118-273) U/L Total Creatine Kinase (38-174) U/L B-Natriuretic Peptide 55 (<100) pg/mL Total Protein (6.5-8.0) g/dL Albumin (3.5-5.0) g/dL Lipase (8-78) U/L Urine Color Urine Appearance Urine pH (5.0-8.0) Ur Specific [place] (1.005-1.025) Urine Protein (NEG-TRACE) MG/DL Urine Glucose (UA) (NEG) MG/DL Urine Ketones (NEG) MG/DL Urine Blood (NEG) Urine Nitrite (NEG) Ur Leukocyte Esterase (NEG) Urine Opiates Screen (Not Detect) Urine Fentanyl Screen (Not Detect) Ur Barbiturates Screen (Not Detect) Ur Phencyclidine Scrn (Not Detect) Ur Amphetamines Screen (Not Detect) U Benzodiazepines Scrn (Not Detect) Urine Cocaine Screen (Not Detect) U Marijuana (THC) Screen (Not Detect) Ethyl Alcohol 47 mg/dL Influenza Type A (PCR) NEGATIVE (Negative) Influenza Type B (PCR) NEGATIVE (Negative) RSV RNA Qual (PCR) NEGATIVE (Negative) SARS-CoV-2 RNA (RT-PCR) NEGATIVE (Negative) 06/22/21 06/22/21 Range/Units 22:54 22:54 WBC (4.8-10.8) X10*3/uL RBC (4.60-5.80) X10*6/uL Hgb (14.0-18.0) g/dl Hct (42.0-52.0) % MCV (80.0-98.0) fL MCH (27.0-33.0) pg MCHC (31.0-36.0) g/dl RDW (11.0-16.0) % Plt Count (160-400) X10*3/uL MPV (9.4-12.4) fL Immature Gran % (Auto) (0.0-0.4) % Neut % (Auto) (45-73) % Lymph % (Auto) (20-40) % [place] % (Auto) (2-11) % Eos % (Auto) (0-4) % Baso % (Auto) (0-2) % Lymph # (Auto) (1.2-4.9) X10*3/uL [place] # (Auto) (0.1-1.2) X10*3/uL Eos # (Auto) (0.0-0.4) X10*3/uL Baso # (Auto) (0.0-0.2) X10*3/uL Abs Immat Gran (auto) (0.00-0.03) X10*3/uL Absolute Neuts (auto) (2.0-8.3) x10*3/uL Absolute Nucleated RBC (0.0-0.012) X10*3/uL Nucleated RBC % (auto) (0.0-0.2) /100WBC PT (9.9-13.0) SEC INR (0.9-1.1) APTT (24.1-38.0) SEC Sodium (135-145) mmol/L Potassium (3.3-5.1) mmol/L Chloride (96-108) mmol/L Carbon Dioxide (22-29) mmol/L Anion Gap (12-20) BUN (9-16) mg/dL Creatinine (0.5-1.4) mg/dL Estim Creat Clear Calc Estimated GFR POC Glucose (60-115) mg/dL Random Glucose (60-115) mg/dL Lactic Acid (0.5-2.0) mmol/L Calcium (8.4-10.2) mg/dL Magnesium (1.6-2.6) mg/dL Total Bilirubin (0.0-1.0) mg/dL Direct Bilirubin (0.0-0.5) mg/dL AST (5-37) U/L ALT (0-40) U/L Alkaline Phosphatase (39-117) U/L Ammonia (13-55) umol/L Lactate Dehydrogenase (118-273) U/L Total Creatine Kinase (38-174) U/L B-Natriuretic Peptide (<100) pg/mL Total Protein (6.5-8.0) g/dL Albumin (3.5-5.0) g/dL Lipase (8-78) U/L Urine Color YELLOW Urine Appearance CLEAR Urine pH 5.5 (5.0-8.0) Ur Specific [place] <= 1.005 (1.005-1.025) Urine Protein NEG (NEG-TRACE) MG/DL Urine Glucose (UA) 100 H (NEG) MG/DL Urine Ketones 15 (NEG) MG/DL Urine Blood NEG (NEG) Urine Nitrite NEG (NEG) Ur Leukocyte Esterase NEG (NEG) Urine Opiates Screen Not Detected (Not Detect) Urine Fentanyl Screen Not Detected (Not Detect) Ur Barbiturates Screen POSITIVE H (Not Detect) Ur Phencyclidine Scrn Not Detected (Not Detect) Ur Amphetamines Screen Not Detected (Not Detect) U Benzodiazepines Scrn Not Detected (Not Detect) Urine Cocaine Screen Not Detected (Not Detect) U Marijuana (THC) Screen Not Detected (Not Detect) Ethyl Alcohol mg/dL Influenza Type A (PCR) (Negative) Influenza Type B (PCR) (Negative) RSV RNA Qual (PCR) (Negative) SARS-CoV-2 RNA (RT-PCR) (Negative) <Prema Ceron, MANAGER SOCIAL RESPONSIBILITY - Last Filed: 06/22/21 23:48> Lab Results 06/22/21 06/22/21 06/22/21 Range/Units 20:27 20:54 20:54 WBC 7.0 (4.8-10.8) X10*3/uL RBC 3.96 L (4.60-5.80) X10*6/uL Hgb 12.3 L (14.0-18.0) g/dl Hct 35.5 L (42.0-52.0) % MCV 89.6 (80.0-98.0) fL MCH 31.1 (27.0-33.0) pg MCHC 34.6 (31.0-36.0) g/dl RDW 13.7 (11.0-16.0) % Plt Count 243 (160-400) X10*3/uL MPV 8.6 L (9.4-12.4) fL Immature Gran % (Auto) 0.9 H (0.0-0.4) % Neut % (Auto) 71.3 (45-73) % Lymph % (Auto) 18.4 L (20-40) % [place] % (Auto) 5.8 (2-11) % Eos % (Auto) 2.9 (0-4) % Baso % (Auto) 0.7 (0-2) % Lymph # (Auto) 1.3 (1.2-4.9) X10*3/uL [place] # (Auto) 0.4 (0.1-1.2) X10*3/uL Eos # (Auto) 0.2 (0.0-0.4) X10*3/uL Baso # (Auto) 0.1 (0.0-0.2) X10*3/uL Abs Immat Gran (auto) 0.06 H (0.00-0.03) X10*3/uL Absolute Neuts (auto) 5.0 (2.0-8.3) x10*3/uL Absolute Nucleated RBC 0.000 (0.0-0.012) X10*3/uL Nucleated RBC % (auto) 0.0 (0.0-0.2) /100WBC PT 12.4 (9.9-13.0) SEC INR 1.1 (0.9-1.1) APTT 32.2 (24.1-38.0) SEC Sodium (135-145) mmol/L Potassium (3.3-5.1) mmol/L Chloride (96-108) mmol/L Carbon Dioxide (22-29) mmol/L Anion Gap (12-20) BUN (9-16) mg/dL Creatinine (0.5-1.4) mg/dL Estim Creat Clear Calc Estimated GFR POC Glucose 209 H (60-115) mg/dL Random Glucose (60-115) mg/dL Lactic Acid (0.5-2.0) mmol/L Calcium (8.4-10.2) mg/dL Magnesium (1.6-2.6) mg/dL Total Bilirubin (0.0-1.0) mg/dL Direct Bilirubin (0.0-0.5) mg/dL AST (5-37) U/L ALT (0-40) U/L Alkaline Phosphatase (39-117) U/L Ammonia (13-55) umol/L Lactate Dehydrogenase (118-273) U/L Total Creatine Kinase (38-174) U/L B-Natriuretic Peptide (<100) pg/mL Total Protein (6.5-8.0) g/dL Albumin (3.5-5.0) g/dL Lipase (8-78) U/L Urine Color Urine Appearance Urine pH (5.0-8.0) Ur Specific [place] (1.005-1.025) Urine Protein (NEG-TRACE) MG/DL Urine Glucose (UA) (NEG) MG/DL Urine Ketones (NEG) MG/DL Urine Blood (NEG) Urine Nitrite (NEG) Ur Leukocyte Esterase (NEG) Urine Opiates Screen (Not Detect) Urine Fentanyl Screen (Not Detect) Ur Barbiturates Screen (Not Detect) Ur Phencyclidine Scrn (Not Detect) Ur Amphetamines Screen (Not Detect) U Benzodiazepines Scrn (Not Detect) Urine Cocaine Screen (Not Detect) U Marijuana (THC) Screen (Not Detect) Ethyl Alcohol mg/dL Influenza Type A (PCR) (Negative) Influenza Type B (PCR) (Negative) RSV RNA Qual (PCR) (Negative) SARS-CoV-2 RNA (RT-PCR) (Negative) 06/22/21 06/22/21 06/22/21 Range/Units 20:54 20:54 20:54 WBC (4.8-10.8) X10*3/uL RBC (4.60-5.80) X10*6/uL Hgb (14.0-18.0) g/dl Hct (42.0-52.0) % MCV (80.0-98.0) fL MCH (27.0-33.0) pg MCHC (31.0-36.0) g/dl RDW (11.0-16.0) % Plt Count (160-400) X10*3/uL MPV (9.4-12.4) fL Immature Gran % (Auto) (0.0-0.4) % Neut % (Auto) (45-73) % Lymph % (Auto) (20-40) % [place] % (Auto) (2-11) % Eos % (Auto) (0-4) % Baso % (Auto) (0-2) % Lymph # (Auto) (1.2-4.9) X10*3/uL [place] # (Auto) (0.1-1.2) X10*3/uL Eos # (Auto) (0.0-0.4) X10*3/uL Baso # (Auto) (0.0-0.2) X10*3/uL Abs Immat Gran (auto) (0.00-0.03) X10*3/uL Absolute Neuts (auto) (2.0-8.3) x10*3/uL Absolute Nucleated RBC (0.0-0.012) X10*3/uL Nucleated RBC % (auto) (0.0-0.2) /100WBC PT (9.9-13.0) SEC INR (0.9-1.1) APTT (24.1-38.0) SEC Sodium 129 L (135-145) mmol/L Potassium 4.0 (3.3-5.1) mmol/L Chloride 89 L (96-108) mmol/L Carbon Dioxide 24 (22-29) mmol/L Anion Gap 20 (12-20) BUN 6 L D (9-16) mg/dL Creatinine 0.76 (0.5-1.4) mg/dL Estim Creat Clear Calc 110.9 Estimated GFR > 60 POC Glucose (60-115) mg/dL Random Glucose 219 H (60-115) mg/dL Lactic Acid 2.6 H* (0.5-2.0) mmol/L Calcium 8.7 (8.4-10.2) mg/dL Magnesium 1.5 L (1.6-2.6) mg/dL Total Bilirubin 0.3 (0.0-1.0) mg/dL Direct Bilirubin 0.2 (0.0-0.5) mg/dL AST 11 (5-37) U/L ALT 12 (0-40) U/L Alkaline Phosphatase 86 (39-117) U/L Ammonia 25 (13-55) umol/L Lactate Dehydrogenase 148 (118-273) U/L Total Creatine Kinase 30 L D (38-174) U/L B-Natriuretic Peptide (<100) pg/mL Total Protein 6.0 L (6.5-8.0) g/dL Albumin 3.4 L (3.5-5.0) g/dL Lipase 26 (8-78) U/L Urine Color Urine Appearance Urine pH (5.0-8.0) Ur Specific [place] (1.005-1.025) Urine Protein (NEG-TRACE) MG/DL Urine Glucose (UA) (NEG) MG/DL Urine Ketones (NEG) MG/DL Urine Blood (NEG) Urine Nitrite (NEG) Ur Leukocyte Esterase (NEG) Urine Opiates Screen (Not Detect) Urine Fentanyl Screen (Not Detect) Ur Barbiturates Screen (Not Detect) Ur Phencyclidine Scrn (Not Detect) Ur Amphetamines Screen (Not Detect) U Benzodiazepines Scrn (Not Detect) Urine Cocaine Screen (Not Detect) U Marijuana (THC) Screen (Not Detect) Ethyl Alcohol mg/dL Influenza Type A (PCR) (Negative) Influenza Type B (PCR) (Negative) RSV RNA Qual (PCR) (Negative) SARS-CoV-2 RNA (RT-PCR) (Negative) 06/22/21 06/22/21 06/22/21 Range/Units 20:54 20:54 20:54 WBC (4.8-10.8) X10*3/uL RBC (4.60-5.80) X10*6/uL Hgb (14.0-18.0) g/dl Hct (42.0-52.0) % MCV (80.0-98.0) fL MCH (27.0-33.0) pg MCHC (31.0-36.0) g/dl RDW (11.0-16.0) % Plt Count (160-400) X10*3/uL MPV (9.4-12.4) fL Immature Gran % (Auto) (0.0-0.4) % Neut % (Auto) (45-73) % Lymph % (Auto) (20-40) % [place] % (Auto) (2-11) % Eos % (Auto) (0-4) % Baso % (Auto) (0-2) % Lymph # (Auto) (1.2-4.9) X10*3/uL [place] # (Auto) (0.1-1.2) X10*3/uL Eos # (Auto) (0.0-0.4) X10*3/uL Baso # (Auto) (0.0-0.2) X10*3/uL Abs Immat Gran (auto) (0.00-0.03) X10*3/uL Absolute Neuts (auto) (2.0-8.3) x10*3/uL Absolute Nucleated RBC (0.0-0.012) X10*3/uL Nucleated RBC % (auto) (0.0-0.2) /100WBC PT (9.9-13.0) SEC INR (0.9-1.1) APTT (24.1-38.0) SEC Sodium (135-145) mmol/L Potassium (3.3-5.1) mmol/L Chloride (96-108) mmol/L Carbon Dioxide (22-29) mmol/L Anion Gap (12-20) BUN (9-16) mg/dL Creatinine (0.5-1.4) mg/dL Estim Creat Clear Calc Estimated GFR POC Glucose (60-115) mg/dL Random Glucose (60-115) mg/dL Lactic Acid (0.5-2.0) mmol/L Calcium (8.4-10.2) mg/dL Magnesium (1.6-2.6) mg/dL Total Bilirubin (0.0-1.0) mg/dL Direct Bilirubin (0.0-0.5) mg/dL AST (5-37) U/L ALT (0-40) U/L Alkaline Phosphatase (39-117) U/L Ammonia (13-55) umol/L Lactate Dehydrogenase (118-273) U/L Total Creatine Kinase (38-174) U/L B-Natriuretic Peptide 55 (<100) pg/mL Total Protein (6.5-8.0) g/dL Albumin (3.5-5.0) g/dL Lipase (8-78) U/L Urine Color Urine Appearance Urine pH (5.0-8.0) Ur Specific [place] (1.005-1.025) Urine Protein (NEG-TRACE) MG/DL Urine Glucose (UA) (NEG) MG/DL Urine Ketones (NEG) MG/DL Urine Blood (NEG) Urine Nitrite (NEG) Ur Leukocyte Esterase (NEG) Urine Opiates Screen (Not Detect) Urine Fentanyl Screen (Not Detect) Ur Barbiturates Screen (Not Detect) Ur Phencyclidine Scrn (Not Detect) Ur Amphetamines Screen (Not Detect) U Benzodiazepines Scrn (Not Detect) Urine Cocaine Screen (Not Detect) U Marijuana (THC) Screen (Not Detect) Ethyl Alcohol 47 mg/dL Influenza Type A (PCR) NEGATIVE (Negative) Influenza Type B (PCR) NEGATIVE (Negative) RSV RNA Qual (PCR) NEGATIVE (Negative) SARS-CoV-2 RNA (RT-PCR) NEGATIVE (Negative) 06/22/21 06/22/21 Range/Units 22:54 22:54 WBC (4.8-10.8) X10*3/uL RBC (4.60-5.80) X10*6/uL Hgb (14.0-18.0) g/dl Hct (42.0-52.0) % MCV (80.0-98.0) fL MCH (27.0-33.0) pg MCHC (31.0-36.0) g/dl RDW (11.0-16.0) % Plt Count (160-400) X10*3/uL MPV (9.4-12.4) fL Immature Gran % (Auto) (0.0-0.4) % Neut % (Auto) (45-73) % Lymph % (Auto) (20-40) % [place] % (Auto) (2-11) % Eos % (Auto) (0-4) % Baso % (Auto) (0-2) % Lymph # (Auto) (1.2-4.9) X10*3/uL [place] # (Auto) (0.1-1.2) X10*3/uL Eos # (Auto) (0.0-0.4) X10*3/uL Baso # (Auto) (0.0-0.2) X10*3/uL Abs Immat Gran (auto) (0.00-0.03) X10*3/uL Absolute Neuts (auto) (2.0-8.3) x10*3/uL Absolute Nucleated RBC (0.0-0.012) X10*3/uL Nucleated RBC % (auto) (0.0-0.2) /100WBC PT (9.9-13.0) SEC INR (0.9-1.1) APTT (24.1-38.0) SEC Sodium (135-145) mmol/L Potassium (3.3-5.1) mmol/L Chloride (96-108) mmol/L Carbon Dioxide (22-29) mmol/L Anion Gap (12-20) BUN (9-16) mg/dL Creatinine (0.5-1.4) mg/dL Estim Creat Clear Calc Estimated GFR POC Glucose (60-115) mg/dL Random Glucose (60-115) mg/dL Lactic Acid (0.5-2.0) mmol/L Calcium (8.4-10.2) mg/dL Magnesium (1.6-2.6) mg/dL Total Bilirubin (0.0-1.0) mg/dL Direct Bilirubin (0.0-0.5) mg/dL AST (5-37) U/L ALT (0-40) U/L Alkaline Phosphatase (39-117) U/L Ammonia (13-55) umol/L Lactate Dehydrogenase (118-273) U/L Total Creatine Kinase (38-174) U/L B-Natriuretic Peptide (<100) pg/mL Total Protein (6.5-8.0) g/dL Albumin (3.5-5.0) g/dL Lipase (8-78) U/L Urine Color YELLOW Urine Appearance CLEAR Urine pH 5.5 (5.0-8.0) Ur Specific [place] <= 1.005 (1.005-1.025) Urine Protein NEG (NEG-TRACE) MG/DL Urine Glucose (UA) 100 H (NEG) MG/DL Urine Ketones 15 (NEG) MG/DL Urine Blood NEG (NEG) Urine Nitrite NEG (NEG) Ur Leukocyte Esterase NEG (NEG) Urine Opiates Screen Not Detected (Not Detect) Urine Fentanyl Screen Not Detected (Not Detect) Ur Barbiturates Screen POSITIVE H (Not Detect) Ur Phencyclidine Scrn Not Detected (Not Detect) Ur Amphetamines Screen Not Detected (Not Detect) U Benzodiazepines Scrn Not Detected (Not Detect) Urine Cocaine Screen Not Detected (Not Detect) U Marijuana (THC) Screen Not Detected (Not Detect) Ethyl Alcohol mg/dL Influenza Type A (PCR) (Negative) Influenza Type B (PCR) (Negative) RSV RNA Qual (PCR) (Negative) SARS-CoV-2 RNA (RT-PCR) (Negative) <Yandel Sandoval MD - Last Filed: 06/23/21 02:09> Imaging Data CT chest abdomen pelvis: Attestation: I personally reviewed and interpreted this imaging study as follows: <Prema Ceron NP - Last Filed: 06/22/21 23:48> Radiologist's impression: COMPARISON: 01/10/2021 CT scan.. TECHNIQUE: Multidetector volumetric imaging was performed from the thoracic inlet through the pubic symphysis without intravenous contrast. Sagittal and coronal reformatted images were obtained on the technologist workstation. This CT examination was performed using dose optimization techniques as appropriate, variously including the following: *Automated exposure control *Adjustment of mA and/or kV according to patient size (this includes techniques or standardized protocols for targeted exams where dose is matched to indication/reason for exam; i.e. extremities or head) *Use of iterative reconstruction technique DLP: 1812 mGy-cm FINDINGS: CHEST: Lungs: Patchy bilateral airspace disease is seen with a peripheral predominance. There is tree-in-bud opacification with some peripheral branching as well as opacification of the bronchi more so in the dependent lower lobes. Infectious etiology or solid aspiration could have this appearance. This is new from the visualized lung bases on the 01/10/2021 study. Mediastinum: Vascular calcification within the aorta and coronary vessels. There is a prominent 1.4 cm short axis right paratracheal lymph node that demonstrates a fatty amie. [place] mediastinal lymph nodes otherwise. Pericardium/Pleura: No significant effusion. No pleural mass or thickening. Chest Wall/Axilla: Unremarkable. ABDOMEN/PELVIS: Peritoneal Space:No significant free air or free fluid identified. Liver, Gallbladder, Biliary Tree: The non contrast liver is normal in size, shape, and attenuation. No focal hepatic lesion or biliary ductal dilatation is present.? The gallbladder is unremarkable with no evidence of radiopaque gallstones, gallbladder wall thickening, or obvious pericholecystic inflammatory changes. Pancreas: Unremarkable. Spleen: Unremarkable. Adrenal Glands: Unremarkable. Kidneys and Ureters: Mild bilateral perinephric stranding. Do not appreciate any intrarenal calculi. No definitive ureteric calculi. The low-attenuation cortical cysts were better seen on the prior noncontrast study. Bladder: Unremarkable. Gastrointestinal Tract: Scattered colonic diverticulosis. No evidence for diverticulitis. Normal-appearing appendix in the right lower quadrant. Visualized small bowel unremarkable Abdominal Wall: No significant hernia is appreciated. Lymphovascular Structures: Vascular calcification within the aorta iliac system. No bulky retroperitoneal or mesenteric adenopathy. Pelvic Viscera: Unremarkable. Osseus Structures: Unremarkable. CT/CT abdomen pelvis wo con IMPRESSION: When compared to the prior study there is worsened bilateral patchy airspace disease. This has a tree-in-bud pattern with distal impacted bronchi. Infectious etiology would be suspected although silent aspiration could have a similar CT appearance and clinical correlation would be helpful. Chronic appearing changes in the abdomen and pelvis. ? <Prema Ceron NP - Last Filed: 06/22/21 23:48> ECG Data ECG #1: Attestation: I personally reviewed and interpreted this ECG as follows: <Prema Ceron NP - Last Filed: 06/22/21 23:48> ECG interpretation date: 06/22/21 <Prema Ceron NP - Last Filed: 06/22/21 23:48> ECG interpretation time: 20:26 <Prema Ceron NP - Last Filed: 06/22/21 23:48> Prior ECG tracings: available for review <Prema Ceron NP - Last Filed: 06/22/21 23:48> Interpretation: Vent. rate 94 BPM NC interval 146 ms QRS duration 74 ms QT/QTc 352/440 ms P-R-T axes 58 -13 81 Sinus rhythm with Premature atrial complexes Nonspecific ST and T wave abnormality Abnormal ECG When compared with ECG of 04-JUN-2021 01:21, Sinus rhythm has replaced Atrial fibrillation <Prema Ceron NP - Last Filed: 06/22/21 23:48> Procedures Central Line Placement Right SC: Time Out Performed: Yes <Yandel Sandoval MD - Last Filed: 06/23/21 02:09> Patient Placed on Monitor/Pulse Ox: Yes <Yandel Sandoval MD - Last Filed: 06/23/21 02:09> MD Prep: mask, gown and gloves <Yandel Sandoval MD - Last Filed: 06/23/21 02:09> Central Line Prep: Chlorhexidine scrub <Yandel Sandoval MD - Last Filed: 06/23/21 02:09> Local Anesthetic: lidocaine 1% <Yandel Sandoval MD - Last Filed: 06/23/21 02:09> Amount of anesthesia used (mL): 5 <Yandel Sandoval MD - Last Filed: 06/23/21 02:09> Ultrasound Used for Placement: No <Yandel Sandoval MD - Last Filed: 06/23/21 02:09> Additional Comments: Patient gave informed written consent to proceed. The patient was prepped and draped in sterile fashion I anesthetized the clavicular region with 1% lidocaine. Using the finer needle I was able to access the subclavian vein however the patient became very agitated and angry. He insisted that I withdraw the finer needle, the patient threatened to punch me if I did not stop the pre seizure immediately. He became agitated and started to move therefore I withdrew the needle. The procedure was unsuccessful pain. I will get a post major chest x-ray to make sure that there is no pneumothorax. <Yandel Sandoval MD - Last Filed: 06/23/21 02:09> Critical Care Time Critical Care Time Critical Care Time: Yes <Prema Ceron NP - Last Filed: 06/22/21 23:48> Total Critical Care Time: 45 <Prema Ceron NP - Last Filed: 06/22/21 23:48> Attestation: I have personally provided critical care time exclusive of time spent on separately billable procedures. Time includes review of laboratory data, radiology results, discussion with consultants, and monitoring for potential decompensation. Interventions were performed as documented. <Prema Ceron NP - Last Filed: 06/22/21 23:48> Discharge Plan Discharge Clinical Impression: Alcohol abuse, Aspiration pneumonia, Hyponatremia, Alcohol withdrawal <Prema Ceron NP - Last Filed: 06/22/21 23:48> Patient Disposition: Admitted As Inpatient <Prema Ceron NP - Last Filed: 06/22/21 23:48>
--- NOTE | 2021-06-22 20:12 | ECG_ITS ---
Test Reason : CHEST PAIN Blood Pressure : / mmHG Vent. Rate : 094 BPM Atrial Rate : 094 BPM P-R Int : 146 ms QRS Dur : 074 ms QT Int : 352 ms P-R-T Axes : 058 -13 081 degrees QTc Int : 440 ms Sinus rhythm with Premature atrial complexes Nonspecific ST and T wave abnormality Abnormal ECG When compared with ECG of 04-JUN-2021 01:21, Sinus rhythm has replaced Atrial fibrillation Referred By: Prema Ceron Electronically Signed By:HERMAN TONEY MD
[2021-06-22 20:15] VITALS: BP 128/98; BP 130/60; PULSE 95; PULSE 96; RESP 16; TEMP 37.1; O2SAT 100; O2SAT 95; BMI 33.4
[2021-06-22 20:37] LABS: Glucose, Whole Blood 209 mg/dL (60-115)
[2021-06-22 21:02] LABS: MANUAL DIFF FLAG NO
[2021-06-22 21:05] LABS: Basophils Absolute Auto 0.1 X10*3/uL (0.0-0.2); Basophils Percent Auto 0.7 % (0-2); Eosinophils Absolute Auto 0.2 X10*3/uL (0.0-0.4); Eosinophils Percent Auto 2.9 % (0-4); Hematocrit 35.5 % (42.0-52.0); Hemoglobin 12.3 g/dl (14.0-18.0); Imm Gran Abs Auto 0.06 X10*3/uL (0.00-0.03); Imm Gran Pct Auto 0.9 % (0.0-0.4); Lymphocytes Absolute Auto 1.3 X10*3/uL (1.2-4.9); Lymphocytes Percent Auto 18.4 % (20-40); Mean Corpuscular HGB Conc 34.6 g/dl (31.0-36.0); Mean Corpuscular Hemoglobin 31.1 pg (27.0-33.0); Mean Corpuscular Volume 89.6 fL (80.0-98.0); Mean Platelet Volume 8.6 fL (9.4-12.4); Monocytes Absolute Auto 0.4 X10*3/uL (0.1-1.2); Monocytes Percent Auto 5.8 % (2-11); Neutrophils Percent Auto 71.3 % (45-73); Platelet Count 243 X10*3/uL (160-400); Red Blood Count 3.96 X10*6/uL (4.60-5.80); Red Cell Distribution Width 13.7 % (11.0-16.0)
[2021-06-22 21:11] LABS: Ammonia 25 umol/L (13-55)
[2021-06-22 21:16] LABS: Ethanol 47 mg/dL
[2021-06-22 21:17] LABS: Lactic Acid 2.6 mmol/L (0.5-2.0)
[2021-06-22 21:19] LABS: Alanine Aminotransferase 12 U/L (0-40); Albumin Level 3.4 g/dL (3.5-5.0); Alkaline Phosphatase 86 U/L (39-117); Anion Gap 20 (12-20); Aspartate Amino Transferase 11 U/L (5-37); Bilirubin Direct 0.2 mg/dL (0.0-0.5); Bilirubin Total 0.3 mg/dL (0.0-1.0); Blood Urea Nitrogen 6 mg/dL (9-16); Calcium 8.7 mg/dL (8.4-10.2); Carbon Dioxide 24 mmol/L (22-29); Chloride 89 mmol/L (96-108); Creatinine Clr Calc Pharmacy 110.9; Estimated Glomerular Filt Rate > 60; Glucose Random 219 mg/dL (60-115); Lactate Dehydrogenase 148 U/L (118-273); Lipase 26 U/L (8-78); Magnesium 1.5 mg/dL (1.6-2.6); Sodium 129 mmol/L (135-145)
[2021-06-22 21:21] LABS: INTERNATIONAL NORM RATIO 1.1 (0.9-1.1); Prothrombin Time 12.4 SEC (9.9-13.0)
[2021-06-22 21:24] LABS: Partial Thromboplastin Time 32.2 SEC (24.1-38.0)
--- NOTE | 2021-06-22 21:36 | PHA.MEDREC ---
Pharmacy Consult ? Medication Reconciliation Pharmacy has completed the medication reconciliation. Pt is poor historian, said I don't know what I take at home. But did state that whatever he picks up from the pharmacy is what he takes, so did med rec based on claim history. Stated he took his medications this morning, but seemed agitated and unsure. Jia Whitfield, PharmD
[2021-06-22] MEDS: PHENobarbitaL sodium 130 MG/ML VIAL 328 MG IM (21:43)
[2021-06-22 21:44] LABS: Influenza A PCR NEGATIVE (Negative); Influenza B PCR NEGATIVE (Negative); Resp Syncy Virus RNA Qual PCR NEGATIVE (Negative); SARS COV2 PCR INHOUSE NEGATIVE (Negative)
[2021-06-22] MEDS: LORazepam 1 MG TABLET PO (22:57)
[2021-06-22] MEDS: 0.9 % Sodium Chloride 1,000 ML 999 ML IVCONT (22:58)
[2021-06-22 22:59] LABS: Reflex Lactate? Lactic Acid Added
[2021-06-22 23:00] LABS: Appearance Urine CLEAR; Color Urine YELLOW; Glucose Urine UA 100 MG/DL (NEG); Leukocyte Esterase Urine NEG (NEG); Nitrite Urine NEG (NEG); PH 5.5 (5.0-8.0); Specific Gravity - Urine <= 1.005 (1.005-1.025); Urine Blood NEG (NEG); Urine Ketones 15 MG/DL (NEG); Urine Protein NEG (NEG-TRACE)
[2021-06-22 23:06] LABS: B Type Natriuretic Peptide 55 pg/mL (<100)
--- NOTE | 2021-06-22 23:09 | PM.IMHP ---
History of Present Illness Date of Service: 06/22/21 Chief Complaint: Shortness of breath This is a 65-year-old male past medical history of alcohol abuse, COPD, diabetes, heart failure preserved ejection fraction hypertension who presents to the hospital with complaints of shortness of breath and been drinking for the past week. Of note patient was discharged from the hospital in the end of May after being treated for alcohol withdrawal as well as COPD exacerbation and severe hyponatremia. On my exam patient is in sleeping, after receiving multiple doses of phenobarb as well as Ativan, very difficult to arouse, breathing about 18 breaths per minute, no evidence of hemodynamic instability or respiratory distress. Able to get much history from him as although he response to painful stimuli he returns to sleep right away According to ED staff patient recently left rehab about a week ago, has been drinking every day since leaving rehab and came in complaining of shortness of breath and diarrhea. Apparently patient has been very abusive to were the ED staff bili drink, not allowing blood draws, and clinical care and he was given multiple doses of Ativan as well as phenobarb. On arrival to the ED patient hemodynamically stable with slightly low blood pressure that has now significantly improved. Labs are significant for WBC count of 7.0, hemoglobin 12.3, hematocrit 35.5, sodium of 129- 131 when corrected for glucose of 219, which is a recurrent theme for him, lactic acid of 2.6, magnesium of 1.5 BNP of 55, albumin of 3.4, UA negative, urine drug screen positive for barbiturates, and alcohol level of [address] shows room compare to prior study there has worsened bilateral patchy airspace disease, this has a tree-in-bud pattern with distal impacted bronchi. With infectious etiology suspected although silent aspiration could have similar CT findings To ED physician is tried to put IV lines on the patient, with when attempting a central line but patient aggressively refused, ripping 1 of the lines while the ED physician was placing it Patient has not received IV antibiotics and is now switched to p.o. Review of Systems Review of Systems: Yes all other systems are reviewed and are negative [facility] Medical History LAUREN (acute kidney injury) Alcohol abuse COPD (chronic obstructive pulmonary disease) Diabetes mellitus type 1 Diastolic dysfunction Diastolic heart failure Fall HLD (hyperlipidemia) Hypertension Nonrheumatic aortic (valve) stenosis Obesity Family History Father Diabetes Mother Diabetes Social History Household Members: None Housing: Apartment Do you presently have visiting nurse or other home services: No Alcohol intake: current Alcohol intake frequency: 3 or more drinks per day Alcohol type: hard liquor Patient Tobacco Use Status: Current everyday Tobacco user Tobacco use type: Cigarette Second Hand Smoke Exposure: No Use of substances other than those prescribed or required for medical reasons: No Advance Directives: Yes Advance Directives on File: Yes Advance Directives Date on File: 10/11/20 service: No Current occupational status: disabled Meds Allergies Allergy/AdvReac Type Severity Reaction Status Date / Time ENVIRONMENTAL Allergy Mild SNEEZING, Uncoded 09/26/20 17:14 WATERY EYES Active Medications: Current Medications Sodium Chloride (Ns) 1,000 mls @ 999 mls/hr IVCONT .Q1H1M JOURDAN Stop: 06/23/21 00:45 Last Admin: 06/22/21 22:58 Dose: 999 mls/hr Documented by: Magnesium Sulfate (Magnesium Sulfate/H2o) 2 gm in 50 mls @ 25 mls/hr IV ONCE ONE Stop: 06/23/21 00:52 Piperacillin Sod/Tazobactam (Sod 3.375 gm/ Sodium Chloride) 50 mls @ 100 mls/hr IV ONCE ONE Stop: 06/22/21 23:22 Azithromycin 500 mg/ Sodium (Chloride) 250 mls @ 125 mls/hr IV ONCE ONE Stop: 06/23/21 00:52 Medication (No Benzodiazepines) 1 each MISCELLANE DAILY COUNT INCLUDES THE [facility] Phenobarbital (Phenobarbital 15 Mg Tablet) 45 mg PO BID COUNT INCLUDES THE [facility] Stop: 06/24/21 21:01 Phenobarbital (Phenobarbital 30 Mg Tablet) 30 mg PO BID COUNT INCLUDES THE [facility] Stop: 06/26/21 21:01 Phenobarbital (Phenobarbital 15 Mg Tablet) 15 mg PO DAILY COUNT INCLUDES THE [facility] Stop: 06/28/21 09:01 Phenobarbital Sodium (Phenobarbital Sodium 130 Mg/Ml Vial) 246 mg IM 0100,0400 COUNT INCLUDES THE [facility] Stop: 06/23/21 04:01 Home Medications Medication Instructions Recorded Confirmed Last Taken Type albuterol sulfate 1 amp INHALATION QID 12/29/20 06/22/21 Unknown History albuterol sulfate 90 mcg/actuation 2 puff INHALATION QID PRN 12/29/20 06/22/21 Unknown History aerosol inhaler blood sugar diagnostic (FreeStyle 12/29/20 02/04/21 Unknown History Lite Strips) folic acid 1 mg tablet 1 tab PO DAILY@1700 12/29/20 06/22/21 Unknown History insulin aspart U-100 100 unit/mL 15 unit SUBCUT TIDAC 12/29/20 06/22/21 Unknown History subcutaneous solution (Novolog U-100 Insulin aspart) lisinopril 10 mg tablet 1 tab PO DAILY 12/29/20 06/22/21 Unknown History multivitamin 1 tab PO DAILY 12/29/20 06/22/21 Unknown History omega-3 fatty acids-fish oil 340 1 cap PO DAILY 12/29/20 06/22/21 Unknown History mg-1,000 mg capsule (Fish Oil) simvastatin 20 mg tablet 1 tab PO BEDTIME 12/29/20 06/22/21 Unknown History thiamine HCl (vitamin B1) 100 mg 1 tab PO BEDTIME 12/29/20 06/22/21 Unknown History tablet aspirin 81 mg tablet,delayed 1 tab PO BEDTIME 02/04/21 06/22/21 Unknown History release buspirone 5 mg tablet 5 mg PO BID 02/04/21 06/22/21 Unknown History celecoxib 50 mg capsule 1 cap PO BID 05/12/21 06/22/21 Unknown History ramelteon 8 mg tablet 1 tab PO BEDTIME 05/12/21 06/22/21 Unknown History tamsulosin 0.4 mg capsule 1 cap PO DAILY@1700 05/12/21 06/22/21 Unknown History omeprazole 20 mg capsule,delayed 1 cap PO BID@0630,1630 06/01/21 06/22/21 Unknown History release famotidine 40 mg tablet 1 tab PO BID 06/22/21 06/22/21 Unknown History fluticasone 250 mcg-salmeterol 50 1 puff INHALATION BID 06/22/21 06/22/21 Unknown History mcg/dose blistr powdr for inhalation (Lori Michelle) Physical Exam Vital Signs and Narrative: Vital Signs: Last Vital Signs Temp 98.8 F 06/22/21 20:15 Pulse 95 06/22/21 20:15 Resp 16 06/22/21 20:15 BP 130/60 06/22/21 20:15 Pulse Ox 95 06/22/21 20:15 BMI result Body Mass Index 33.4 Const: Other: Somnolent, snoring response to have painful stimuli but falls right back asleep General: no acute distress Eyes: General: appearance normal, both eyes and all related structures Pupils: Equal, round and reactive pupils present Chest: Other: Rhonchi bilaterally Resp: Effort & Inspection: normal respiratory effort Cardio: Rate: regular rate Rhythm: regular rhythm GI: Palpation (GI): Soft to palpation Auscultation: normal bowel sounds Skin: General skin exam: no rashes or lesions noted Neuro: Cranial nerves: Yes Equal, round and reactive pupils present Extrem: General: Yes normal to inspection and Yes no pedal edema Results Labs CBC and Chem 7: 06/22/21 20:54 06/22/21 20:54 Labs: Laboratory Results - last 24 hr 06/22/21 06/22/21 06/22/21 20:27 20:54 20:54 MCV 89.6 MCH 31.1 MCHC 34.6 RDW 13.7 Plt Count 243 MPV 8.6 L Immature Gran % (Auto) 0.9 H Neut % (Auto) 71.3 Lymph % (Auto) 18.4 L Emmons % (Auto) 5.8 Eos % (Auto) 2.9 Baso % (Auto) 0.7 Lymph # (Auto) 1.3 Emmons # (Auto) 0.4 Eos # (Auto) 0.2 Baso # (Auto) 0.1 Abs Immat Gran (auto) 0.06 H Absolute Neuts (auto) 5.0 Absolute Nucleated RBC 0.000 Nucleated RBC % (auto) 0.0 PT 12.4 INR 1.1 APTT 32.2 Sodium Anion Gap Estim Creat Clear Calc Estimated GFR POC Glucose 209 H Random Glucose Lactic Acid Calcium Magnesium Total Bilirubin Direct Bilirubin AST ALT Alkaline Phosphatase Ammonia Lactate Dehydrogenase Total Creatine Kinase B-Natriuretic Peptide Total Protein Albumin Lipase Urine Color Urine Appearance Urine pH Ur Specific [place] Urine Protein Urine Glucose (UA) Urine Ketones Urine Blood Urine Nitrite Ur Leukocyte Esterase Ethyl Alcohol Influenza Type A (PCR) Influenza Type B (PCR) RSV RNA Qual (PCR) SARS-CoV-2 RNA (RT-PCR) 06/22/21 06/22/21 06/22/21 20:54 20:54 20:54 MCV MCH MCHC RDW Plt Count MPV Immature Gran % (Auto) Neut % (Auto) Lymph % (Auto) Emmons % (Auto) Eos % (Auto) Baso % (Auto) Lymph # (Auto) Emmons # (Auto) Eos # (Auto) Baso # (Auto) Abs Immat Gran (auto) Absolute Neuts (auto) Absolute Nucleated RBC Nucleated RBC % (auto) PT INR APTT Sodium 129 L Anion Gap 20 Estim Creat Clear Calc 110.9 Estimated GFR > 60 POC Glucose Random Glucose 219 H Lactic Acid 2.6 H* Calcium 8.7 Magnesium 1.5 L Total Bilirubin 0.3 Direct Bilirubin 0.2 AST 11 ALT 12 Alkaline Phosphatase 86 Ammonia 25 Lactate Dehydrogenase 148 Total Creatine Kinase 30 L D B-Natriuretic Peptide Total Protein 6.0 L Albumin 3.4 L Lipase 26 Urine Color Urine Appearance Urine pH Ur Specific [place] Urine Protein Urine Glucose (UA) Urine Ketones Urine Blood Urine Nitrite Ur Leukocyte Esterase Ethyl Alcohol Influenza Type A (PCR) Influenza Type B (PCR) RSV RNA Qual (PCR) SARS-CoV-2 RNA (RT-PCR) 06/22/21 06/22/21 06/22/21 20:54 20:54 20:54 MCV MCH MCHC RDW Plt Count MPV Immature Gran % (Auto) Neut % (Auto) Lymph % (Auto) Emmons % (Auto) Eos % (Auto) Baso % (Auto) Lymph # (Auto) Emmons # (Auto) Eos # (Auto) Baso # (Auto) Abs Immat Gran (auto) Absolute Neuts (auto) Absolute Nucleated RBC Nucleated RBC % (auto) PT INR APTT Sodium Anion Gap Estim Creat Clear Calc Estimated GFR POC Glucose Random Glucose Lactic Acid Calcium Magnesium Total Bilirubin Direct Bilirubin AST ALT Alkaline Phosphatase Ammonia Lactate Dehydrogenase Total Creatine Kinase B-Natriuretic Peptide 55 Total Protein Albumin Lipase Urine Color Urine Appearance Urine pH Ur Specific [place] Urine Protein Urine Glucose (UA) Urine Ketones Urine Blood Urine Nitrite Ur Leukocyte Esterase Ethyl Alcohol 47 Influenza Type A (PCR) NEGATIVE Influenza Type B (PCR) NEGATIVE RSV RNA Qual (PCR) NEGATIVE SARS-CoV-2 RNA (RT-PCR) NEGATIVE 06/22/21 22:54 MCV MCH MCHC RDW Plt Count MPV Immature Gran % (Auto) Neut % (Auto) Lymph % (Auto) Emmons % (Auto) Eos % (Auto) Baso % (Auto) Lymph # (Auto) Emmons # (Auto) Eos # (Auto) Baso # (Auto) Abs Immat Gran (auto) Absolute Neuts (auto) Absolute Nucleated RBC Nucleated RBC % (auto) PT INR APTT Sodium Anion Gap Estim Creat Clear Calc Estimated GFR POC Glucose Random Glucose Lactic Acid Calcium Magnesium Total Bilirubin Direct Bilirubin AST ALT Alkaline Phosphatase Ammonia Lactate Dehydrogenase Total Creatine Kinase B-Natriuretic Peptide Total Protein Albumin Lipase Urine Color YELLOW Urine Appearance CLEAR Urine pH 5.5 Ur Specific [place] <= 1.005 Urine Protein NEG Urine Glucose (UA) 100 H Urine Ketones 15 Urine Blood NEG Urine Nitrite NEG Ur Leukocyte Esterase NEG Ethyl Alcohol Influenza Type A (PCR) Influenza Type B (PCR) RSV RNA Qual (PCR) SARS-CoV-2 RNA (RT-PCR) Imaging Radiologist's Impressions: Impressions Abdomen/Pelvis CT 06/22/21 21:54 IMPRESSION: When compared to the prior study there is worsened bilateral patchy airspace disease. This has a tree-in-bud pattern with distal impacted bronchi. Infectious etiology would be suspected although silent aspiration could have a similar CT appearance and clinical correlation would be helpful. Chronic appearing changes in the abdomen and pelvis. Chest CT 06/22/21 21:54 IMPRESSION: When compared to the prior study there is worsened bilateral patchy airspace disease. This has a tree-in-bud pattern with distal impacted bronchi. Infectious etiology would be suspected although silent aspiration could have a similar CT appearance and clinical correlation would be helpful. Chronic appearing changes in the abdomen and pelvis. Assessment and Plan (1) Hyponatremia: Status: Acute (2) Alcohol withdrawal: Status: Acute (3) Aspiration pneumonia: Status: Acute (4) Diarrhea: Status: Acute Plan This is a 65-year-old male with past medical history of COPD, heart failure with preserved ejection fraction, severe alcohol abuse who presents to the hospital after drinking for the past 1 week as well as complaining of shortness of breath and diarrhea # Pneumonia - aspiration versus bacterial, given recent hospitalization will cover for hospital-acquired pneumonia but patient has refused IV lines, very difficult to placed on IV line on him, ED physician tried central length the patient aggressively toward that out, at this time will start him on p.o. doxycycline, as well as IM ceftriaxone and p.o. azithromycin - follow cultures - monitor respiratory status - COVID-19 negative # severe alcohol withdrawal - high CIWA score - start on phenobarb but protocol - received extra doses of Ativan in the ED as well as an extra dose of phenobarb - currently stable - continue phenobarb, hydroxyzine - continue thiamine and folic acid supplement # diarrhea - likely secondary to alcohol abuse, but given recent hospitalization, will rule out C diff as well as will obtain stool cultures - continue IV fluids once we have IV line established # lactic acidosis - likely secondary to dehydration as well as acute infection - patient not allowing blood read draws, at this time will establish IV line once patient is more stable and directable, and treat with IV fluids # history of heart failure with preserved ejection fraction - no evidence of volume overload - negative BNP - continue to monitor # COPD - unable to assess for any symptoms, this time will continue his home inhalers and add, DuoNeb p.r.n. # DM - continue home insulin - will add LDSSI Imperative to note that PT is not cooperating with care and although received multiple sedatives in the form of phenobarb and ativan, we are unable to care for pt and treat him to our best ability. Pt has refused blood draws, placement of IV lines, which hinders our ability to administer meds and follow his labs. Well continue to attempt to direct pt and tx his withdrawals and restlessness and switch his meds to PO and reattempt to place IV lnes DVT ppx: lovenox Quality Stroke Does the patient have a stroke diagnosis?: No VTE Prior VTE?: No VTE Risk Level:: Medical - moderate - high VTE Device Contraindication: Treatment Not Indicated VTE Drug Contraindication: N/A - Med Ordered
[2021-06-22 23:14] LABS: Amphetamine Screen Urine Not Detected (Not Detect); Barbiturates, Urine POSITIVE (Not Detect); Benzodiazepines Screen Urine Not Detected (Not Detect); Cannabinoid Screen Urine Not Detected (Not Detect); Cocaine Screen Urine Not Detected (Not Detect); Fentanyl, urine Not Detected (Not Detect); Opiate Screen Urine Not Detected (Not Detect); Phencyclidine Screen Urine Not Detected (Not Detect)
[2021-06-22] MEDS: Magnesium Sulfate/H2O 2 GM/50 ML PIGGYBACK IV (23:35)
--- NOTE | 2021-06-22 23:44 | PC.NURSE ---
Addendum entered by Brenda Johnson RN 06/22/21 23:55: MD notified of refusal of blood work. Original Note: Patient alert and oriented x 3. Patient refusing 2nd set of blood cultures and lactic/blood work. Patient has ? fungal rash under most folds. Tele: sinus rythym 90-110's Patient c/o pain when you touch him. Patient on ciwa protocol on phenobarbital and ativan given. Will continue to monitor.
[2021-06-23 00:24] VITALS: BP 128/61; PULSE 103; RESP 20; TEMP 36.6; O2SAT 93
[2021-06-23] MEDS: Enoxaparin Sodium 40 MG/0.4 ML SYRINGE SUBCUT (00:41)
--- NOTE | 2021-06-23 00:42 | PC.NURSE ---
Patient rolled over and pulled iv out just enough for it to infiltrate. Awaiting another nurse to re-insert iv then can hang antibiotics.
[2021-06-23] MEDS: LORazepam 1 MG TABLET 2 MG PO (02:00)
--- NOTE | 2021-06-23 02:02 | PC.NURSE ---
Dr. Troy attempted to place central line on patient but patient refused as he started putting in line. Patient wants everything by pill. Dr. Troy messaged Dr. Foreman regarding changing antibiotics to IM. Multiple nurses tried to place a line and Dr. Subramanian. Patient given ativan and lidocaine to place line. Will continue to monitor.
[2021-06-23] MEDS: PHENobarbitaL sodium 130 MG/ML VIAL IM (02:30)
[2021-06-23] MEDS: cefTRIAXone sodium 1 GM, Lidocaine HCl 1 % MPF 2.1 ML IM (02:39)
[2021-06-23] MEDS: Azithromycin 250 MG TABLET PO (02:39)
[2021-06-23] MEDS: PHENobarbitaL sodium 130 MG/ML VIAL 246 MG IM (05:00)
--- NOTE | 2021-06-23 05:36 | MHC.MBSS ---
obtained care from CHET Steward at 3:15am, Medicated per Jul. Hospitalist aware of pt refusing Iv and central line. Pt medicated per mar. Pt is sleeping at this time. Will continue to monitor.
[2021-06-23 06:00] VITALS: BP 144/99; PULSE 101; RESP 18; TEMP 36.8; O2SAT 93
--- NOTE | 2021-06-23 06:11 | PC.NURSE ---
Pt is sleeping, medicated per Mar. Vital signs are stable. will continue to monitor.
[2021-06-23] MEDS: Thiamine HCL 100 MG TABLET PO (07:10)
[2021-06-23] MEDS: Folic Acid 1 MG TABLET PO (07:10)
--- NOTE | 2021-06-23 07:19 | PC.NURSE ---
report taken from sedrick rosario pt here as admitted pt, per previous shift rn pt has refused and resisted care, removed peripheral iv lines as well as a central line iv. pt has been refusing labs and iv medication tx. has been tolerating po and been taking po meds per previous shift rn. pt is side lying in stretcher on first contact, easily awoken to voice on first contact. in no obvious distress. asking about breakfast. rr even/unlabored, sinus on tele. denies cp or sob att. tolerating po meds att. wctm.
[2021-06-23] MEDS: Albuterol Sulfate (0.083%) 2.5 MG/3 ML VIAL.NEB INHALE (07:35)
[2021-06-23 07:36] VITALS: PULSE 93; RESP 22; O2SAT 93
[2021-06-23 07:39] LABS: Glucose, Whole Blood 264 mg/dL (60-115)
[2021-06-23] MEDS: busPIRone HCl 5 MG TABLET PO (08:02)
[2021-06-23] MEDS: lisinopriL 10 MG TABLET PO (08:02)
[2021-06-23] MEDS: Multivitamin TABLET 1 TAB PO (08:02)
[2021-06-23] MEDS: Famotidine 20 MG TABLET 40 MG PO ×2 (08:07→19:48)
--- NOTE | 2021-06-23 08:17 | PC.NURSE ---
pt insulin order remains unverified by pharmacy, poc glucose checked, food at pt bedside. pt remains sleeping at this time.
--- NOTE | 2021-06-23 09:27 | P.PNIM_ITS ---
Subjective Subjective Date of Service: 06/23/21 Interval History: the patient was seen and evaluated this morning Laying in bed, more alert and interactive today Willing to get an IV 9 Reported feeling generalized weakness and pain all over his body No reported other overnight events. Systemic review: No fever, chills but has generalized weakness No chest pain, palpitation No shortness of breath or coughing No abdominal pain, reporting some nausea No urinary symptoms No any rash or wounds Physical Exam Vital Signs: Vital Signs: Last Vital Signs Temp 98.3 F 06/23/21 06:00 Pulse 93 06/23/21 07:36 Resp 22 H 06/23/21 07:36 BP 144/99 H 06/23/21 06:00 Pulse Ox 93 06/23/21 06:00 BMI result Body Mass Index 33.4 Const: Other: Constitutional : Alert, interactive, in mild distress, mildly anxious Neck : Normal inspection, Supple Cardiovascular : RRR, S1 S2, trace bilateral lower extremity edema Respiratory : Fares bilateral air entry, no crackles, wheezes or rhonchi Gastrointestinal: soft, lax, Normal bowel sounds, Non tender Skin : Warm, Dry Neurological : Alert & oriented x3, No focal deficit Objective Data Active Medications Acetaminophen (Acetaminophen 325 Mg Tablet) 650 mg PO Q6H PRN PRN Reason: Pain, Mild (Pain Scale 1-3) Albuterol Sulfate (Albuterol Sulfate (0.083%) 2.5 Mg/3 Ml Vial.Neb) 2.5 mg INHALE QID [facility] Last Admin: 06/23/21 07:35 Dose: 2.5 mg Documented by: FRANCISCO Albuterol Sulfate (Albuterol Sulfate 90 Mcg 8 Gm Inhaler) 2 puff INHALE QID PRN PRN Reason: Wheezing Aspirin (Aspirin Enteric Coated 81 Mg Tablet.) 81 mg PO BEDTIME [facility] Atorvastatin Calcium (Atorvastatin Calcium 10 Mg Tablet) 10 mg PO BEDTIME [facility] Buspirone HCl (Buspirone Hcl 5 Mg Tablet) 5 mg PO BID [facility] Last Admin: 06/23/21 08:02 Dose: 5 mg Documented by: ARIS Doxycycline Hyclate (Doxycycline Hyclate 100 Mg Tablet) 100 mg PO Q12H [facility] Last Admin: 06/23/21 07:11 Dose: 100 mg Documented by: ARIS Enoxaparin Sodium (Enoxaparin Sodium 40 Mg/0.4 Ml Syringe) 40 mg SUBCUT Q24H [facility] Last Admin: 06/23/21 00:41 Dose: 40 mg Documented by: MARLY Famotidine (Famotidine 20 Mg Tablet) 40 mg PO BID [facility] Last Admin: 06/23/21 08:07 Dose: 40 mg Documented by: ARIS Fluticasone/Vilanterol (Fluticasone/Vilanterol 100/25 Blst.W.Dev) 1 puff INHALE RDAILY [facility] Folic Acid (Folic Acid 1 Mg Tablet) 1 mg PO DAILY [facility] Last Admin: 06/23/21 07:10 Dose: 1 mg Documented by: ARIS Hydroxyzine HCl (Hydroxyzine Hcl 25 Mg Tablet) 25 mg PO Q6H PRN PRN Reason: anxiety/restlessness Hydroxyzine HCl (Hydroxyzine Hcl 50 Mg Tablet) 50 mg PO Q8H PRN PRN Reason: Anxiety Piperacillin Sod/Tazobactam (Sod 3.375 gm/ Sodium Chloride) 50 mls @ 100 mls/hr IV Q6H [facility] Last Admin: 06/23/21 07:00 Dose: Not Given Documented by: KRUNAL Non-Admin Reason: NO Iv access. Sodium Chloride (Ns) 1,000 mls @ 100 mls/hr IVCONT .Q10H [facility] Last Admin: 06/23/21 08:07 Dose: Not Given Documented by: ARIS Non-Admin Reason: No Access Insulin Glargine (Insulin Glargine,Hum.Rec.Anlog 100 Unit/Ml 10 Ml Vial) 20 unit SUBCUT BEDTIME [facility] Insulin Human Lispro (Insulin Lispro 100 Unit/Ml 3 Ml Vial) 10 unit SUBCUT TIDAC [facility] Insulin Human Lispro (Insulin Lispro 100 Unit/Ml 3 Ml Vial) 0 unit SUBCUT QIDACHS [facility]; Protocol Lisinopril (Lisinopril 10 Mg Tablet) 10 mg PO DAILY [facility]; Protocol Last Admin: 06/23/21 08:02 Dose: 10 mg Documented by: ARIS Medication (No Benzodiazepines) 1 each MISCELLANE DAILY [facility] Multivitamins/Vitamin C (Multivitamin Tablet) 1 tab PO DAILY [facility] Last Admin: 06/23/21 08:02 Dose: 1 tab Documented by: ARIS Non-Formulary Medication (Ramelteon) 1 tab PO BEDTIME [facility] Omeprazole (Omeprazole 20 Mg Capsule.Dr) 20 mg PO BID@0630,1630 [facility] Last Admin: 06/23/21 07:19 Dose: Not Given Documented by: ARIS Non-Admin Reason: Patient Refused Ondansetron HCl (Ondansetron Hcl 4 Mg/2 Ml Vial) 4 mg IVPUSH Q8H PRN PRN Reason: Nausea and Vomiting Phenobarbital (Phenobarbital 15 Mg Tablet) 45 mg PO BID [facility] Stop: 06/24/21 21:01 Phenobarbital (Phenobarbital 30 Mg Tablet) 30 mg PO BID [facility] Stop: 06/26/21 21:01 Phenobarbital (Phenobarbital 15 Mg Tablet) 15 mg PO DAILY [facility] Stop: 06/28/21 09:01 Sodium Chloride (0.9 % Sodium Chloride Flush 3 Ml Syringe) 3 ml IVFLUSH QSHIFT [facility] Last Admin: 06/23/21 07:49 Dose: Not Given Documented by: ARIS Non-Admin Reason: No Access Tamsulosin HCl (Tamsulosin Hcl 0.4 Mg Capsule) 0.4 mg PO DAILY@1700 [facility] Thiamine HCl (Thiamine Hcl 100 Mg Tablet) 100 mg PO DAILY [facility] Last Admin: 06/23/21 07:10 Dose: 100 mg Documented by: ARIS Labs CBC & Chem 7: 06/22/21 20:54 06/22/21 20:54 Labs: Laboratory Results - last 24 hr 06/22/21 06/22/21 06/22/21 20:27 20:54 20:54 MCV 89.6 MCH 31.1 MCHC 34.6 RDW 13.7 Plt Count 243 MPV 8.6 L Immature Gran % (Auto) 0.9 H Neut % (Auto) 71.3 Lymph % (Auto) 18.4 L Reagan % (Auto) 5.8 Eos % (Auto) 2.9 Baso % (Auto) 0.7 Lymph # (Auto) 1.3 Reagan # (Auto) 0.4 Eos # (Auto) 0.2 Baso # (Auto) 0.1 Abs Immat Gran (auto) 0.06 H Absolute Neuts (auto) 5.0 Absolute Nucleated RBC 0.000 Nucleated RBC % (auto) 0.0 PT 12.4 INR 1.1 APTT 32.2 Anion Gap Estim Creat Clear Calc Estimated GFR POC Glucose 209 H Random Glucose Lactic Acid Calcium Magnesium Total Bilirubin Direct Bilirubin AST ALT Alkaline Phosphatase Ammonia Lactate Dehydrogenase Total Creatine Kinase B-Natriuretic Peptide Total Protein Albumin Lipase Urine Color Urine Appearance Urine pH Ur Specific [place] Urine Protein Urine Glucose (UA) Urine Ketones Urine Blood Urine Nitrite Ur Leukocyte Esterase Urine Opiates Screen Urine Fentanyl Screen Ur Barbiturates Screen Ur Phencyclidine Scrn Ur Amphetamines Screen U Benzodiazepines Scrn Urine Cocaine Screen U Marijuana (THC) Screen Ethyl Alcohol Influenza Type A (PCR) Influenza Type B (PCR) RSV RNA Qual (PCR) SARS-CoV-2 RNA (RT-PCR) 06/22/21 06/22/21 06/22/21 20:54 20:54 20:54 MCV MCH MCHC RDW Plt Count MPV Immature Gran % (Auto) Neut % (Auto) Lymph % (Auto) Reagan % (Auto) Eos % (Auto) Baso % (Auto) Lymph # (Auto) Reagan # (Auto) Eos # (Auto) Baso # (Auto) Abs Immat Gran (auto) Absolute Neuts (auto) Absolute Nucleated RBC Nucleated RBC % (auto) PT INR APTT Anion Gap 20 Estim Creat Clear Calc 110.9 Estimated GFR > 60 POC Glucose Random Glucose 219 H Lactic Acid 2.6 H* Calcium 8.7 Magnesium 1.5 L Total Bilirubin 0.3 Direct Bilirubin 0.2 AST 11 ALT 12 Alkaline Phosphatase 86 Ammonia 25 Lactate Dehydrogenase 148 Total Creatine Kinase 30 L D B-Natriuretic Peptide Total Protein 6.0 L Albumin 3.4 L Lipase 26 Urine Color Urine Appearance Urine pH Ur Specific [place] Urine Protein Urine Glucose (UA) Urine Ketones Urine Blood Urine Nitrite Ur Leukocyte Esterase Urine Opiates Screen Urine Fentanyl Screen Ur Barbiturates Screen Ur Phencyclidine Scrn Ur Amphetamines Screen U Benzodiazepines Scrn Urine Cocaine Screen U Marijuana (THC) Screen Ethyl Alcohol Influenza Type A (PCR) Influenza Type B (PCR) RSV RNA Qual (PCR) SARS-CoV-2 RNA (RT-PCR) 06/22/21 06/22/21 06/22/21 20:54 20:54 20:54 MCV MCH MCHC RDW Plt Count MPV Immature Gran % (Auto) Neut % (Auto) Lymph % (Auto) Reagan % (Auto) Eos % (Auto) Baso % (Auto) Lymph # (Auto) Reagan # (Auto) Eos # (Auto) Baso # (Auto) Abs Immat Gran (auto) Absolute Neuts (auto) Absolute Nucleated RBC Nucleated RBC % (auto) PT INR APTT Anion Gap Estim Creat Clear Calc Estimated GFR POC Glucose Random Glucose Lactic Acid Calcium Magnesium Total Bilirubin Direct Bilirubin AST ALT Alkaline Phosphatase Ammonia Lactate Dehydrogenase Total Creatine Kinase B-Natriuretic Peptide 55 Total Protein Albumin Lipase Urine Color Urine Appearance Urine pH Ur Specific [place] Urine Protein Urine Glucose (UA) Urine Ketones Urine Blood Urine Nitrite Ur Leukocyte Esterase Urine Opiates Screen Urine Fentanyl Screen Ur Barbiturates Screen Ur Phencyclidine Scrn Ur Amphetamines Screen U Benzodiazepines Scrn Urine Cocaine Screen U Marijuana (THC) Screen Ethyl Alcohol 47 Influenza Type A (PCR) NEGATIVE Influenza Type B (PCR) NEGATIVE RSV RNA Qual (PCR) NEGATIVE SARS-CoV-2 RNA (RT-PCR) NEGATIVE 06/22/21 06/22/21 06/23/21 22:54 22:54 07:36 MCV MCH MCHC RDW Plt Count MPV Immature Gran % (Auto) Neut % (Auto) Lymph % (Auto) Reagan % (Auto) Eos % (Auto) Baso % (Auto) Lymph # (Auto) Reagan # (Auto) Eos # (Auto) Baso # (Auto) Abs Immat Gran (auto) Absolute Neuts (auto) Absolute Nucleated RBC Nucleated RBC % (auto) PT INR APTT Anion Gap Estim Creat Clear Calc Estimated GFR POC Glucose 264 H Random Glucose Lactic Acid Calcium Magnesium Total Bilirubin Direct Bilirubin AST ALT Alkaline Phosphatase Ammonia Lactate Dehydrogenase Total Creatine Kinase B-Natriuretic Peptide Total Protein Albumin Lipase Urine Color YELLOW Urine Appearance CLEAR Urine pH 5.5 Ur Specific [place] <= 1.005 Urine Protein NEG Urine Glucose (UA) 100 H Urine Ketones 15 Urine Blood NEG Urine Nitrite NEG Ur Leukocyte Esterase NEG Urine Opiates Screen Not Detected Urine Fentanyl Screen Not Detected Ur Barbiturates Screen POSITIVE H Ur Phencyclidine Scrn Not Detected Ur Amphetamines Screen Not Detected U Benzodiazepines Scrn Not Detected Urine Cocaine Screen Not Detected U Marijuana (THC) Screen Not Detected Ethyl Alcohol Influenza Type A (PCR) Influenza Type B (PCR) RSV RNA Qual (PCR) SARS-CoV-2 RNA (RT-PCR) Assessment and Plan (1) Diarrhea: Status: Acute (2) Aspiration pneumonia: Status: Acute (3) Hyponatremia: Status: Acute (4) Alcohol withdrawal: Status: Acute Plan This is a 65-year-old male with past medical history of COPD, heart failure with preserved ejection fraction, severe alcohol abuse who presents to the hospital after drinking for the past 1 week as well as complaining of shortness of breath and diarrhea # aspiration Pneumonia Refused IV line placement To try placing an IV, meanwhile continue p.o. doxycycline, as well as IM ceftriaxone and p.o. azithromycin Pending cultures Wean oxygen down COVID-19 negative # severe alcohol withdrawal high CIWA score Continue phenobarb protocol and had extra dose as needed thiamine and folic acid supplement # hyponatremia Sodium of 129 Likely related to alcohol abuse Follow osmolality, urine sodium Follow BMP # diarrhea likely secondary to alcohol withdrawal Negative C diff continue IV fluids once we have IV line established # lactic acidosis secondary to dehydration as well as acute infection To repeat readings once a lot by the patient and treat with IV fluids # history of heart failure with preserved ejection fraction no evidence of volume overload negative BNP continue to monitor # COPD Not next survey cristina continue his home inhalers and add, DuoNeb p.r.n. # DM continue home insulin add LDSSI Patient is resistant to having an IV line or following commands. Will try to convince him to get an IV at to take the medications the right way. DVT ppx lovenox Quality Stroke Does the patient have a stroke diagnosis?: No VTE Prior VTE?: No VTE Risk Level:: Medical - moderate - high VTE Device Contraindication: Treatment Not Indicated VTE Drug Contraindication: N/A - Med Ordered
[2021-06-23] MEDS: PHENobarbitaL 15 MG TABLET 45 MG PO ×2 (10:17→19:46)
[2021-06-23] MEDS: Insulin Lispro 100 UNIT/ML 3 ML VIAL 10 UNIT SUBCUT (10:17)
--- NOTE | 2021-06-23 10:37 | PC.NURSE ---
pt ate breakfast, has taken all po meds this am. seen by hospitalist and agreeing to iv access at this time, multiple attempts at iv access tried again w no success. pt asked about prospects of ej access, pt refusing. hospitalist aware.
--- NOTE | 2021-06-23 12:37 | MHC.CM.PN ---
PT REPORTS HE LIVES ALONE AND IS INDEPENDENT WITH CARE. PT REPORTS HAVING OXYGEN AT HOME FOR NIGHTTIME USE ONLY WELL A NEBULIZER. PT DENIES USING HOME SERVICES AT THIS TIME PT HAS A HCP ON FILE AND REPORTS M[facility]I NAME IS HIS PCP PT HAS HAD THE MODERNA VACCINE AGAINST COVID-19 (08/27/20 & 07/22/20) IMM DELIVERED, ORIGINAL AT BEDSIDE, COPY SENT TO [facility]
[2021-06-23 13:02] LABS: Glucose, Whole Blood 85 mg/dL (60-115)
--- NOTE | 2021-06-23 13:43 | PC.NURSE ---
this rn in to assess pt, he is sitting up on edge of bed, no apparent distress. pt asking this rn about morning meds in very accusatory tone, this rn educating pt that he took all of his morning medications, wrappers are on top of trash can as well as documented in emar. pt sts youre a liar, do not tell me you gave me any meds! . this rn showing pt wrappers, educated that meds were taken with breakfast. pt sts that he did not eat breakfast and that this rn continues to lie . this rn leaving room as pt is becoming loud, agitated. will reassess pt once behavior has calmed.
[2021-06-23 15:13] VITALS: PULSE 91; RESP 18; TEMP 37.1; O2SAT 93
[2021-06-23 18:15] LABS: Glucose, Whole Blood 248 mg/dL (60-115)
[2021-06-23 19:42] LABS: Glucose, Whole Blood 255 mg/dL (60-115)
[2021-06-23] MEDS: Insulin Lispro 100 UNIT/ML 3 ML VIAL SUBCUT (19:44)
[2021-06-23] MEDS: Insulin Glargine,Hum.rec.anlog 100 UNIT/ML 10 ML VIAL 20 UNIT SUBCUT (19:45)
[2021-06-23] MEDS: Atorvastatin Calcium 10 MG TABLET PO (19:46)
[2021-06-23] MEDS: Aspirin Enteric Coated 81 MG TABLET.DR PO (19:47)
[2021-06-23] MEDS: Omeprazole 20 MG CAPSULE.DR PO (19:47)
[2021-06-23] MEDS: Tamsulosin HCL 0.4 MG CAPSULE PO (19:55)
[2021-06-23 20:56] VITALS: BP 150/92; PULSE 92; RESP 22; TEMP 36.8; O2SAT 93
[2021-06-24] MEDS: Acetaminophen 325 MG TABLET 650 MG PO (00:05)
[2021-06-24] MEDS: hydrOXYzine HCL 50 MG TABLET PO (00:55)
[2021-06-24 02:11] VITALS: BP 105/61; PULSE 94; RESP 20; O2SAT 95
[2021-06-24] MEDS: cefTRIAXone sodium 1 GM, Lidocaine HCl 1 % MPF 2.1 ML IM (03:28)
[2021-06-24 07:50] VITALS: BP 122/63; PULSE 84; RESP 17; TEMP 37; O2SAT 97
[2021-06-24 08:12] LABS: Glucose, Whole Blood 206 mg/dL (60-115)
[2021-06-24 09:04] VITALS: BP 114/53; PULSE 78; RESP 18; TEMP 36.3; O2SAT 94
[2021-06-24 09:09] LABS: Glucose, Whole Blood 183 mg/dL (60-115)
[2021-06-24] MEDS: PHENobarbitaL 15 MG TABLET 45 MG PO ×2 (09:29→20:28)
[2021-06-24] MEDS: Multivitamin TABLET 1 TAB PO (09:29)
[2021-06-24] MEDS: busPIRone HCl 5 MG TABLET PO ×2 (09:34→20:28)
[2021-06-24] MEDS: Thiamine HCL 100 MG TABLET PO (09:35)
[2021-06-24] MEDS: Famotidine 20 MG TABLET 40 MG PO ×2 (09:35→20:29)
[2021-06-24] MEDS: Folic Acid 1 MG TABLET PO (09:35)
[2021-06-24] MEDS: lisinopriL 10 MG TABLET PO (09:36)
[2021-06-24] MEDS: Insulin Lispro 100 UNIT/ML 3 ML VIAL 10 UNIT SUBCUT ×2 (09:36→16:41)
[2021-06-24] MEDS: Insulin Lispro 100 UNIT/ML 3 ML VIAL SUBCUT ×3 (09:37→20:27)
[2021-06-24 10:14] LABS: Anion Gap 16 (12-20); Blood Urea Nitrogen 17 mg/dL (9-16); Calcium 8.6 mg/dL (8.4-10.2); Carbon Dioxide 25 mmol/L (22-29); Chloride 95 mmol/L (96-108); Creatinine Clr Calc Pharmacy 89.7; Estimated Glomerular Filt Rate > 60; Glucose Random 207 mg/dL (60-115); Potassium 4.5 mmol/L (3.3-5.1); Sodium 131 mmol/L (135-145)
--- NOTE | 2021-06-24 10:34 | MHC.CLN ---
RECOMMEND 2000DM 2GM NA DIET R/T HX DM AND HEART FAILURE
[2021-06-24 10:51] VITALS: BP 111/63; PULSE 103; RESP 18; TEMP 36.5; O2SAT 98
--- NOTE | 2021-06-24 10:55 | HO.PM.IMPN ---
Subjective Subjective Date of Service: 06/24/21 Interval History: the patient was seen and evaluated this morning Laying in bed, more alert and interactive today but reporting anxiety and tremors Failed trials to place an IV Refuses medications Reported feeling generalized weakness and pain all over his body No reported other overnight events. Systemic review: No fever, chills but has generalized weakness No chest pain, palpitation No shortness of breath or coughing No abdominal pain, reporting some nausea No urinary symptoms No any rash or wounds Physical Exam Vital Signs: Vital Signs: Last Vital Signs Temp 97.7 F 06/24/21 10:51 Pulse 103 H 06/24/21 10:51 Resp 18 06/24/21 10:51 BP 111/63 06/24/21 10:51 Pulse Ox 98 06/24/21 10:51 BMI result Body Mass Index 33.4 Const: Other: Constitutional : Alert, interactive, in mild distress, mildly anxious Neck : Normal inspection, Supple Cardiovascular : RRR, S1 S2, trace bilateral lower extremity edema Respiratory : Fares bilateral air entry, no crackles, wheezes or rhonchi Gastrointestinal: soft, lax, Normal bowel sounds, Non tender Skin : Warm, Dry Neurological : Alert & oriented x3, No focal deficit Objective Data Active Medications Acetaminophen (Acetaminophen 325 Mg Tablet) 650 mg PO Q6H PRN PRN Reason: Pain, Mild (Pain Scale 1-3) Last Admin: 06/24/21 00:05 Dose: 650 mg Documented by: LEONEL Albuterol Sulfate (Albuterol Sulfate (0.083%) 2.5 Mg/3 Ml Vial.Neb) 2.5 mg INHALE QID REPLACED BY [facility] Last Admin: 06/24/21 07:55 Dose: Not Given Documented by: JENIFFER Non-Admin Reason: Patient Refused Albuterol Sulfate (Albuterol Sulfate 90 Mcg 8 Gm Inhaler) 2 puff INHALE QID PRN PRN Reason: Wheezing Aspirin (Aspirin Enteric Coated 81 Mg Tablet.) 81 mg PO BEDTIME REPLACED BY [facility] Last Admin: 06/23/21 19:47 Dose: 81 mg Documented by: LEONEL Atorvastatin Calcium (Atorvastatin Calcium 10 Mg Tablet) 10 mg PO BEDTIME REPLACED BY [facility] Last Admin: 06/23/21 19:46 Dose: 10 mg Documented by: LEONEL Buspirone HCl (Buspirone Hcl 5 Mg Tablet) 5 mg PO BID [facility]PLACED BY [facility] Last Admin: 06/24/21 09:34 Dose: 5 mg Documented by: ÁNGEL Doxycycline Hyclate (Doxycycline Hyclate 100 Mg Tablet) 100 mg PO Q12H REPLACED BY [facility] Last Admin: 06/24/21 09:28 Dose: 100 mg Documented by: ÁNGEL Enoxaparin Sodium (Enoxaparin Sodium 40 Mg/0.4 Ml Syringe) 40 mg SUBCUT Q24H REPLACED BY [facility] Last Admin: 06/24/21 00:57 Dose: Not Given Documented by: LEONEL Non-Admin Reason: Patient Refused Famotidine (Famotidine 20 Mg Tablet) 40 mg PO BID REPLACED BY [facility] Last Admin: 06/24/21 09:35 Dose: 40 mg Documented by: ÁNGEL Fluticasone/Vilanterol (Fluticasone/Vilanterol 100/25 Blst.W.Dev) 1 puff INHALE RDAILY REPLACED BY [facility] Last Admin: 06/24/21 07:55 Dose: Not Given Documented by: JENIFFER Non-Admin Reason: Patient Refused Folic Acid (Folic Acid 1 Mg Tablet) 1 mg PO DAILY REPLACED BY [facility] Last Admin: 06/24/21 09:35 Dose: 1 mg Documented by: ÁNGEL Hydroxyzine HCl (Hydroxyzine Hcl 25 Mg Tablet) 25 mg PO Q6H PRN PRN Reason: anxiety/restlessness Hydroxyzine HCl (Hydroxyzine Hcl 50 Mg Tablet) 50 mg PO Q8H PRN PRN Reason: Anxiety Last Admin: 06/24/21 00:55 Dose: 50 mg Documented by: LEONEL Insulin Glargine (Insulin Glargine,Hum.Rec.Anlog 100 Unit/Ml 10 Ml Vial) 20 unit SUBCUT BEDTIME REPLACED BY [facility] Last Admin: 06/23/21 19:45 Dose: 20 unit Documented by: LEONEL Insulin Human Lispro (Insulin Lispro 100 Unit/Ml 3 Ml Vial) 10 unit SUBCUT TIDAC REPLACED BY [facility] Last Admin: 06/24/21 09:36 Dose: 10 unit Documented by: ÁNGEL Insulin Human Lispro (Insulin Lispro 100 Unit/Ml 3 Ml Vial) 0 unit SUBCUT QIDACHS REPLACED BY [facility]; Protocol Last Admin: 06/24/21 09:37 Dose: 2 unit Documented by: ÁNGEL Lisinopril (Lisinopril 10 Mg Tablet) 10 mg PO DAILY REPLACED BY [facility]; Protocol Last Admin: 06/24/21 09:36 Dose: 10 mg Documented by: ÁNGEL Medication (No Benzodiazepines) 1 each MISCELLANE DAILY REPLACED BY [facility] Multivitamins/Vitamin C (Multivitamin Tablet) 1 tab PO DAILY REPLACED BY [facility] Last Admin: 06/24/21 09:29 Dose: 1 tab Documented by: ÁNGEL Non-Formulary Medication (Ramelteon) 1 tab PO BEDTIME REPLACED BY [facility] Omeprazole (Omeprazole 20 Mg Capsule.) 20 mg PO BID@0630,1630 REPLACED BY [facility] Last Admin: 06/23/21 19:47 Dose: 20 mg Documented by: LEONEL Ondansetron HCl (Ondansetron Hcl 4 Mg/2 Ml Vial) 4 mg IVPUSH Q8H PRN PRN Reason: Nausea and Vomiting Phenobarbital (Phenobarbital 15 Mg Tablet) 45 mg PO BID REPLACED BY [facility] Stop: 06/24/21 21:01 Last Admin: 06/24/21 09:29 Dose: 45 mg Documented by: ÁNGEL Phenobarbital (Phenobarbital 30 Mg Tablet) 30 mg PO BID REPLACED BY [facility] Stop: 06/26/21 21:01 Phenobarbital (Phenobarbital 15 Mg Tablet) 15 mg PO DAILY REPLACED BY [facility] Stop: 06/28/21 09:01 Sodium Chloride (0.9 % Sodium Chloride Flush 3 Ml Syringe) 3 ml IVFLUSH QSHIFT REPLACED BY [facility] Last Admin: 06/24/21 09:38 Dose: Not Given Documented by: ÁNGEL Non-Admin Reason: no iv Tamsulosin HCl (Tamsulosin Hcl 0.4 Mg Capsule) 0.4 mg PO DAILY@1700 REPLACED BY [facility] Last Admin: 06/23/21 19:55 Dose: 0.4 mg Documented by: LEONEL Thiamine HCl (Thiamine Hcl 100 Mg Tablet) 100 mg PO DAILY REPLACED BY [facility] Last Admin: 06/24/21 09:35 Dose: 100 mg Documented by: ÁNGEL Labs CBC & Chem 7: 06/22/21 20:54 06/24/21 09:45 Labs: Laboratory Results - last 24 hr 06/23/21 06/23/21 06/23/21 12:55 18:05 19:38 Anion Gap Estim Creat Clear Calc Estimated GFR POC Glucose 85 248 H 255 H Random Glucose Calcium 06/24/21 06/24/21 06/24/21 07:49 09:02 09:45 Anion Gap 16 Estim Creat Clear Calc 89.7 Estimated GFR > 60 POC Glucose 206 H 183 H Random Glucose 207 H Calcium 8.6 Microbiology Microbiology Results: Microbiology 06/22/21 20:54 Blood Culture - Preliminary Blood - Venous No growth after 24 hours. 06/22/21 20:23 Blood Culture - Final Blood - Venous Assessment and Plan (1) Aspiration pneumonia: Status: Acute (2) Hyponatremia: Status: Acute (3) Alcohol withdrawal: Status: Acute Plan This is a 65-year-old male with past medical history of COPD, heart failure with preserved ejection fraction, severe alcohol abuse who presents to the hospital after drinking for the past 1 week as well as complaining of shortness of breath and diarrhea # aspiration Pneumonia Refused IV line placement Will try again to place IV, meanwhile continue p.o. doxycycline, as well as IM ceftriaxone and p.o. azithromycin Pending cultures Oxygen wean down to room air COVID-19 negative # severe alcohol withdrawal high CIWA score Continue phenobarb protocol and had extra dose as needed Add an extra dose of IM phenobarbital thiamine and folic acid supplement # hyponatremia Sodium improved to 131 this morning Likely related to alcohol abuse Follow osmolality, urine sodium Follow BMP # diarrhea likely secondary to alcohol withdrawal Negative C diff # lactic acidosis secondary to dehydration not due to severe sepsis # history of heart failure with preserved ejection fraction no evidence of volume overload negative BNP continue to monitor # COPD Not next survey cristina continue his home inhalers and add, DuoNeb p.r.n. # DM continue home insulin add LDSSI Patient is resistant to having an IV line or following commands. Once he was convinced we were unable to place an IV line. Will try another trial to place a line but overall he is refusing medications and nebulizers. DVT ppx lovenox Quality Stroke Does the patient have a stroke diagnosis?: No VTE Prior VTE?: No VTE Risk Level:: Medical - moderate - high VTE Device Contraindication: Treatment Not Indicated VTE Drug Contraindication: N/A - Med Ordered
[2021-06-24] MEDS: ondansetron HCL 4 MG/2 ML VIAL IVPUSH (12:08)
[2021-06-24 12:16] LABS: Glucose, Whole Blood 254 mg/dL (60-115)
--- NOTE | 2021-06-24 12:50 | P.PNIM_ITS ---
Subjective Subjective Date of Service: 06/24/21 Interval History: the patient was seen and evaluated this morning Laying in bed, more alert and interactive today but reporting anxiety and tremors Failed trials to place an IV Refuses medications Reported feeling generalized weakness and pain all over his body No reported other overnight events. Systemic review: No fever, chills but has generalized weakness No chest pain, palpitation No shortness of breath or coughing No abdominal pain, reporting some nausea No urinary symptoms No any rash or wounds Physical Exam Vital Signs: Vital Signs: Last Vital Signs Temp 97.7 F 06/24/21 10:51 Pulse 103 H 06/24/21 10:51 Resp 18 06/24/21 10:51 BP 111/63 06/24/21 10:51 Pulse Ox 98 06/24/21 10:51 BMI result Body Mass Index 33.4 Const: Other: Constitutional : Alert, interactive, in mild distress, mildly anxious Neck : Normal inspection, Supple Cardiovascular : RRR, S1 S2, trace bilateral lower extremity edema Respiratory : Fares bilateral air entry, no crackles, wheezes or rhonchi Gastrointestinal: soft, lax, Normal bowel sounds, Non tender Skin : Warm, Dry Neurological : Alert & oriented x3, No focal deficit Objective Data Active Medications Acetaminophen (Acetaminophen 325 Mg Tablet) 650 mg PO Q6H PRN PRN Reason: Pain, Mild (Pain Scale 1-3) Last Admin: 06/24/21 00:05 Dose: 650 mg Documented by: LEONEL Albuterol Sulfate (Albuterol Sulfate 90 Mcg 8 Gm Inhaler) 2 puff INHALE QID PRN PRN Reason: Wheezing Albuterol Sulfate (Albuterol Sulfate (0.083%) 2.5 Mg/3 Ml Vial.Neb) 2.5 mg INHALE QID PRN PRN Reason: Wheezing Aspirin (Aspirin Enteric Coated 81 Mg Tablet.) 81 mg PO BEDTIME [facility] Last Admin: 06/23/21 19:47 Dose: 81 mg Documented by: LEONEL Atorvastatin Calcium (Atorvastatin Calcium 10 Mg Tablet) 10 mg PO BEDTIME [facility] Last Admin: 06/23/21 19:46 Dose: 10 mg Documented by: LEONEL Buspirone HCl (Buspirone Hcl 5 Mg Tablet) 5 mg PO BID [facility] Last Admin: 06/24/21 09:34 Dose: 5 mg Documented by: ÁNGEL Doxycycline Hyclate (Doxycycline Hyclate 100 Mg Tablet) 100 mg PO Q12H [facility] Last Admin: 06/24/21 09:28 Dose: 100 mg Documented by: ÁNGEL Enoxaparin Sodium (Enoxaparin Sodium 40 Mg/0.4 Ml Syringe) 40 mg SUBCUT Q24H S Last Admin: 06/24/21 00:57 Dose: Not Given Documented by: LEONEL Non-Admin Reason: Patient Refused Famotidine (Famotidine 20 Mg Tablet) 40 mg PO BID [facility] Last Admin: 06/24/21 09:35 Dose: 40 mg Documented by: ÁNGEL Fluticasone/Vilanterol (Fluticasone/Vilanterol 100/25 Blst.W.Dev) 1 puff INHALE RDAILY [facility] Last Admin: 06/24/21 07:55 Dose: Not Given Documented by: JENIFFER Non-Admin Reason: Patient Refused Folic Acid (Folic Acid 1 Mg Tablet) 1 mg PO DAILY [facility] Last Admin: 06/24/21 09:35 Dose: 1 mg Documented by: ÁNGEL Hydroxyzine HCl (Hydroxyzine Hcl 25 Mg Tablet) 25 mg PO Q6H PRN PRN Reason: anxiety/restlessness Hydroxyzine HCl (Hydroxyzine Hcl 50 Mg Tablet) 50 mg PO Q8H PRN PRN Reason: Anxiety Last Admin: 06/24/21 00:55 Dose: 50 mg Documented by: LEONEL Insulin Glargine (Insulin Glargine,Hum.Rec.Anlog 100 Unit/Ml 10 Ml Vial) 20 unit SUBCUT BEDTIME [facility] Last Admin: 06/23/21 19:45 Dose: 20 unit Documented by: LEONEL Insulin Human Lispro (Insulin Lispro 100 Unit/Ml 3 Ml Vial) 10 unit SUBCUT TIDAC [facility] Last Admin: 06/24/21 09:36 Dose: 10 unit Documented by: ÁNGEL Insulin Human Lispro (Insulin Lispro 100 Unit/Ml 3 Ml Vial) 0 unit SUBCUT QIDA [facility]; Protocol Last Admin: 06/24/21 09:37 Dose: 2 unit Documented by: ÁNGEL Lisinopril (Lisinopril 10 Mg Tablet) 10 mg PO DAILY [facility]; Protocol Last Admin: 06/24/21 09:36 Dose: 10 mg Documented by: ÁNGEL Medication (No Benzodiazepines) 1 each MISCELLANE DAILY [facility] Multivitamins/Vitamin C (Multivitamin Tablet) 1 tab PO DAILY [facility] Last Admin: 06/24/21 09:29 Dose: 1 tab Documented by: ÁNGEL Non-Formulary Medication (Ramelteon) 1 tab PO BEDTIME [facility] Omeprazole (Omeprazole 20 Mg Capsule.Dr) 20 mg PO BID@0630,1630 [facility] Last Admin: 06/23/21 19:47 Dose: 20 mg Documented by: LEONEL Ondansetron HCl (Ondansetron Hcl 4 Mg/2 Ml Vial) 4 mg IVPUSH Q8H PRN PRN Reason: Nausea and Vomiting Last Admin: 06/24/21 12:08 Dose: 4 mg Documented by: ÁNGEL Pharmacy Consult (Consult Rx Perform Med Rec) 1 each MISCELLANE ONCE PRN PRN Reason: Consult order Phenobarbital (Phenobarbital 15 Mg Tablet) 45 mg PO BID [facility] Stop: 06/24/21 21:01 Last Admin: 06/24/21 09:29 Dose: 45 mg Documented by: ÁNGEL Phenobarbital (Phenobarbital 30 Mg Tablet) 30 mg PO BID [facility] Stop: 06/26/21 21:01 Phenobarbital (Phenobarbital 15 Mg Tablet) 15 mg PO DAILY [facility] Stop: 06/28/21 09:01 Sodium Chloride (0.9 % Sodium Chloride Flush 3 Ml Syringe) 3 ml IVFLUSH QSHIFT [facility] Last Admin: 06/24/21 09:38 Dose: Not Given Documented by: ÁNGEL Non-Admin Reason: no iv Tamsulosin HCl (Tamsulosin Hcl 0.4 Mg Capsule) 0.4 mg PO DAILY@1700 [facility] Last Admin: 06/23/21 19:55 Dose: 0.4 mg Documented by: LEONEL Thiamine HCl (Thiamine Hcl 100 Mg Tablet) 100 mg PO DAILY [facility] Last Admin: 06/24/21 09:35 Dose: 100 mg Documented by: ÁNGEL Labs CBC & Chem 7: 06/22/21 20:54 06/24/21 09:45 Labs: Laboratory Results - last 24 hr 06/23/21 06/23/21 06/23/21 12:55 18:05 19:38 Anion Gap Estim Creat Clear Calc Estimated GFR POC Glucose 85 248 H 255 H Random Glucose Calcium 06/24/21 06/24/21 06/24/21 07:49 09:02 09:45 Anion Gap 16 Estim Creat Clear Calc 89.7 Estimated GFR > 60 POC Glucose 206 H 183 H Random Glucose 207 H Calcium 8.6 06/24/21 12:12 Anion Gap Estim Creat Clear Calc Estimated GFR POC Glucose 254 H Random Glucose Calcium Microbiology Microbiology Results: Microbiology 06/22/21 20:54 Blood Culture - Preliminary Blood - Venous No growth after 24 hours. 06/22/21 20:23 Blood Culture - Final Blood - Venous Assessment and Plan Plan This is a 65-year-old male with past medical history of COPD, heart failure with preserved ejection fraction, severe alcohol abuse who presents to the hospital after drinking for the past 1 week as well as complaining of shortness of breath and diarrhea # aspiration Pneumonia Refused IV line placement Will try again to place IV, meanwhile continue p.o. doxycycline, as well as IM ceftriaxone and p.o. azithromycin Pending cultures Oxygen wean down to room air COVID-19 negative # severe alcohol withdrawal high CIWA score Continue phenobarb protocol and had extra dose as needed Add an extra dose of IM phenobarbital thiamine and folic acid supplement # hyponatremia Sodium improved to 131 this morning Likely related to alcohol abuse Follow osmolality, urine sodium Follow BMP # diarrhea likely secondary to alcohol withdrawal Negative C diff # lactic acidosis secondary to dehydration not due to severe sepsis # history of heart failure with preserved ejection fraction no evidence of volume overload negative BNP continue to monitor # COPD Not next survey cristina continue his home inhalers and add, DuoNeb p.r.n. # DM continue home insulin add LDSSI Patient is resistant to having an IV line or following commands. Once he was convinced we were unable to place an IV line. Will try another trial to place a line but overall he is refusing medications and nebulizers. DVT ppx lovenox Quality Stroke Does the patient have a stroke diagnosis?: No VTE Prior VTE?: No VTE Risk Level:: Medical - moderate - high VTE Device Contraindication: Treatment Not Indicated VTE Drug Contraindication: N/A - Med Ordered
[2021-06-24] MEDS: PHENobarbitaL sodium 130 MG/ML VIAL IM (12:52)
--- NOTE | 2021-06-24 13:03 | PHA.MEDREC ---
Pharmacy Consult ? Medication Reconciliation Pharmacy has completed the medication reconciliation. PROVIDER WAS QUESTIONING PATIENT'S LANTUS DOSE; SPOKE TO PATIENT AND CONFIRMED HE TAKES 49 UNITS.
--- NOTE | 2021-06-24 13:07 | PC.NURSE ---
Addendum entered by Cynthia Mccracken RN 06/24/21 13:56: Rn attemped to administer 10 units of Humulog as advised by Dr. Tobin but patient refused it Original Note: P Bs 254, I Dr. Tobin notified,questioned amt of insulin to be administered E will monitor
[2021-06-24] MEDS: Gabapentin 300 MG CAPSULE 600 MG PO ×2 (13:16→20:29)
--- NOTE | 2021-06-24 13:54 | PC.NURSE ---
P patient requesting Ativan insted of Atarax for anxiety I Dr. Go notified of the above E patient made aware Ativan can not be given with Phenobarbital
[2021-06-24 15:19] VITALS: BP 102/59; PULSE 98; RESP 20; TEMP 36.9; O2SAT 94
[2021-06-24 15:41] LABS: Glucose, Whole Blood 243 mg/dL (60-115)
[2021-06-24] MEDS: 0.9 % Sodium Chloride Flush 3 ML SYRINGE IVFLUSH (16:41)
[2021-06-24] MEDS: Omeprazole 20 MG CAPSULE.DR PO (16:42)
[2021-06-24] MEDS: Tamsulosin HCL 0.4 MG CAPSULE PO (16:42)
[2021-06-24 20:00] VITALS: BP 146/58; PULSE 89; RESP 18; TEMP 36.9; O2SAT 96
[2021-06-24 20:04] LABS: Glucose, Whole Blood 184 mg/dL (60-115)
[2021-06-24] MEDS: Insulin Glargine,Hum.rec.anlog 100 UNIT/ML 10 ML VIAL 30 UNIT SUBCUT (20:27)
[2021-06-24] MEDS: Aspirin Enteric Coated 81 MG TABLET.DR PO (20:29)
[2021-06-24] MEDS: Atorvastatin Calcium 10 MG TABLET PO (20:29)
[2021-06-25] VITALS (7 sets, daily range): BP systolic 91–146; BP diastolic 50–67; PULSE 76–93; RESP 17–20; TEMP 36.2–36.9; O2SAT 93–98
[2021-06-25 06:16] LABS: Anion Gap 15 (12-20); Blood Urea Nitrogen 26 mg/dL (9-16); Calcium 8.5 mg/dL (8.4-10.2); Carbon Dioxide 26 mmol/L (22-29); Chloride 95 mmol/L (96-108); Creatinine Clr Calc Pharmacy 83.4; Estimated Glomerular Filt Rate > 60; Glucose Random 215 mg/dL (60-115); Potassium 4.7 mmol/L (3.3-5.1); Sodium 131 mmol/L (135-145)
[2021-06-25] MEDS: Omeprazole 20 MG CAPSULE.DR PO ×2 (06:19→17:57)
[2021-06-25] MEDS: 0.9 % Sodium Chloride Flush 3 ML SYRINGE IVFLUSH ×4 (06:19→20:20)
[2021-06-25] MEDS: Multivitamin TABLET 1 TAB PO (07:53)
[2021-06-25] MEDS: lisinopriL 10 MG TABLET PO (07:53)
[2021-06-25] MEDS: Gabapentin 300 MG CAPSULE 600 MG PO ×3 (07:53→20:19)
[2021-06-25] MEDS: Famotidine 20 MG TABLET 40 MG PO ×2 (07:53→20:19)
[2021-06-25] MEDS: busPIRone HCl 5 MG TABLET PO ×2 (07:53→20:19)
[2021-06-25] MEDS: Thiamine HCL 100 MG TABLET PO (07:54)
[2021-06-25] MEDS: Folic Acid 1 MG TABLET PO (07:54)
[2021-06-25] MEDS: PHENobarbitaL 30 MG TABLET PO ×2 (07:54→20:19)
[2021-06-25] MEDS: Insulin Lispro 100 UNIT/ML 3 ML VIAL 10 UNIT SUBCUT ×3 (07:56→16:57)
[2021-06-25] MEDS: Insulin Lispro 100 UNIT/ML 3 ML VIAL SUBCUT ×3 (07:57→20:19)
[2021-06-25 08:04] LABS: Glucose, Whole Blood 241 mg/dL (60-115)
[2021-06-25 09:02] LABS: Hematocrit 37.8 % (42.0-52.0); Hemoglobin 12.9 g/dl (14.0-18.0); Mean Corpuscular HGB Conc 34.1 g/dl (31.0-36.0); Mean Corpuscular Hemoglobin 31.8 pg (27.0-33.0); Mean Corpuscular Volume 93.1 fL (80.0-98.0); Mean Platelet Volume 8.6 fL (9.4-12.4); Platelet Count 304 X10*3/uL (160-400); Red Blood Count 4.06 X10*6/uL (4.60-5.80); Red Cell Distribution Width 14.1 % (11.0-16.0); White Blood Count 7.7 X10*3/uL (4.8-10.8)
--- NOTE | 2021-06-25 11:02 | HO.PM.IMPN ---
Subjective Subjective Date of Service: 06/25/21 Interval History: cc: sob interval history: still sob Cardiovascular Cardiovascular: Reports no additional cardiovascular complaints Respiratory Respiratory: Reports no additional respiratory complaints Physical Exam Vital Signs: Vital Signs: Last Vital Signs Temp 97.5 F 06/25/21 08:00 Pulse 85 06/25/21 08:00 Resp 20 06/25/21 08:00 BP 112/60 06/25/21 08:00 Pulse Ox 98 06/25/21 08:00 BMI result Body Mass Index 33.4 Objective Data Active Medications Acetaminophen (Acetaminophen 325 Mg Tablet) 650 mg PO Q6H PRN PRN Reason: Pain, Mild (Pain Scale 1-3) Last Admin: 06/24/21 00:05 Dose: 650 mg Documented by: LEONEL Albuterol Sulfate (Albuterol Sulfate 90 Mcg 8 Gm Inhaler) 2 puff INHALE QID PRN PRN Reason: Wheezing Albuterol Sulfate (Albuterol Sulfate (0.083%) 2.5 Mg/3 Ml Vial.Neb) 2.5 mg INHALE QID PRN PRN Reason: Wheezing Aspirin (Aspirin Enteric Coated 81 Mg Tablet.) 81 mg PO BEDTIME [facility] Last Admin: 06/24/21 20:29 Dose: 81 mg Documented by: JOVITA Atorvastatin Calcium (Atorvastatin Calcium 10 Mg Tablet) 10 mg PO BEDTIME [facility] Last Admin: 06/24/21 20:29 Dose: 10 mg Documented by: JOVITA Buspirone HCl (Buspirone Hcl 5 Mg Tablet) 5 mg PO BID [facility] Last Admin: 06/25/21 07:53 Dose: 5 mg Documented by: YOUSUF Doxycycline Hyclate (Doxycycline Hyclate 100 Mg Tablet) 100 mg PO Q12H [facility] Last Admin: 06/25/21 06:19 Dose: 100 mg Documented by: OTILIA Enoxaparin Sodium (Enoxaparin Sodium 40 Mg/0.4 Ml Syringe) 40 mg SUBCUT Q24H [facility] Last Admin: 06/25/21 05:22 Dose: Not Given Documented by: OTILIA Non-Admin Reason: Patient Refused Famotidine (Famotidine 20 Mg Tablet) 40 mg PO BID [facility] Last Admin: 06/25/21 07:53 Dose: 40 mg Documented by: YOUSUF Fluticasone/Vilanterol (Fluticasone/Vilanterol 100/25 Blst.W.Dev) 1 puff INHALE RDAILY [facility] Last Admin: 06/25/21 07:54 Dose: Not Given Documented by: JENIFFER Non-Admin Reason: Patient Refused Folic Acid (Folic Acid 1 Mg Tablet) 1 mg PO DAILY [facility] Last Admin: 06/25/21 07:54 Dose: 1 mg Documented by: YOUSUF Gabapentin (Gabapentin 300 Mg Capsule) 600 mg PO TID [facility] Last Admin: 06/25/21 07:53 Dose: 600 mg Documented by: YOUSUF Guaifenesin (Guaifenesin 200 Mg/10 Ml 10 Ml Liquid) 10 ml PO Q4H PRN PRN Reason: cough Hydroxyzine HCl (Hydroxyzine Hcl 25 Mg Tablet) 25 mg PO Q6H PRN PRN Reason: anxiety/restlessness Hydroxyzine HCl (Hydroxyzine Hcl 50 Mg Tablet) 50 mg PO Q8H PRN PRN Reason: Anxiety Last Admin: 06/24/21 00:55 Dose: 50 mg Documented by: LEONEL Insulin Glargine (Insulin Glargine,Hum.Rec.Anlog 100 Unit/Ml 10 Ml Vial) 30 unit SUBCUT BEDTIME [facility] Last Admin: 06/24/21 20:27 Dose: 30 unit Documented by: JOVITA Insulin Human Lispro (Insulin Lispro 100 Unit/Ml 3 Ml Vial) 10 unit SUBCUT TIDAC [facility] Last Admin: 06/25/21 07:56 Dose: 10 unit Documented by: YOUSUF Insulin Human Lispro (Insulin Lispro 100 Unit/Ml 3 Ml Vial) 0 unit SUBCUT QIDACHS [facility]; Protocol Last Admin: 06/25/21 07:57 Dose: 4 unit Documented by: YOUSUF Lisinopril (Lisinopril 10 Mg Tablet) 10 mg PO DAILY [facility]; Protocol Last Admin: 06/25/21 07:53 Dose: 10 mg Documented by: YOUSUF Medication (No Benzodiazepines) 1 each MISCELLANE DAILY [facility] Multivitamins/Vitamin C (Multivitamin Tablet) 1 tab PO DAILY [facility] Last Admin: 06/25/21 07:53 Dose: 1 tab Documented by: YOUSUF Non-Formulary Medication (Ramelteon) 1 tab PO BEDTIME [facility] Omeprazole (Omeprazole 20 Mg Capsule.) 20 mg PO BID@0630,1630 [facility] Last Admin: 06/25/21 06:19 Dose: 20 mg Documented by: OTILIA Ondansetron HCl (Ondansetron Hcl 4 Mg/2 Ml Vial) 4 mg IVPUSH Q8H PRN PRN Reason: Nausea and Vomiting Last Admin: 06/24/21 12:08 Dose: 4 mg Documented by: ÁNGEL Pharmacy Consult (Consult Rx Perform Med Rec) 1 each MISCELLANE ONCE PRN PRN Reason: Consult order Phenobarbital (Phenobarbital 30 Mg Tablet) 30 mg PO BID [facility] Stop: 06/26/21 21:01 Last Admin: 06/25/21 07:54 Dose: 30 mg Documented by: YOUSUF Phenobarbital (Phenobarbital 15 Mg Tablet) 15 mg PO DAILY [facility] Stop: 06/28/21 09:01 Sodium Chloride (0.9 % Sodium Chloride Flush 3 Ml Syringe) 3 ml IVFLUSH QSHIFT [facility] Last Admin: 06/25/21 08:01 Dose: 3 ml Documented by: YOUSUF Tamsulosin HCl (Tamsulosin Hcl 0.4 Mg Capsule) 0.4 mg PO DAILY@1700 [facility] Last Admin: 06/24/21 16:42 Dose: 0.4 mg Documented by: JOVITA Thiamine HCl (Thiamine Hcl 100 Mg Tablet) 100 mg PO DAILY [facility] Last Admin: 06/25/21 07:54 Dose: 100 mg Documented by: YOUSUF Labs CBC & Chem 7: 06/25/21 08:41 06/25/21 05:38 Labs: Laboratory Results - last 24 hr 06/24/21 06/24/21 06/24/21 09:45 12:12 15:24 MCV Cancelled MCH Cancelled MCHC Cancelled RDW Cancelled Plt Count Cancelled MPV Cancelled Absolute Nucleated RBC Cancelled Nucleated RBC % (auto) Cancelled Anion Gap Estim Creat Clear Calc Estimated GFR POC Glucose 254 H 243 H Random Glucose Calcium 06/24/21 06/25/21 06/25/21 20:00 05:38 07:53 MCV MCH MCHC RDW Plt Count MPV Absolute Nucleated RBC Nucleated RBC % (auto) Anion Gap 15 Estim Creat Clear Calc 83.4 Estimated GFR > 60 POC Glucose 184 H 241 H Random Glucose 215 H Calcium 8.5 06/25/21 08:41 MCV 93.1 MCH 31.8 MCHC 34.1 RDW 14.1 Plt Count 304 D MPV 8.6 L Absolute Nucleated RBC 0.000 Nucleated RBC % (auto) 0.0 Anion Gap Estim Creat Clear Calc Estimated GFR POC Glucose Random Glucose Calcium Microbiology Microbiology Results: Microbiology 06/22/21 20:54 Blood Culture - Preliminary Blood - Venous No growth after 48 hours. Assessment and Plan (1) Aspiration pneumonia: Status: Acute (2) Hyponatremia: Status: Acute (3) Alcohol withdrawal: Status: Acute Plan 65-year-old male with past medical history of COPD, heart failure with preserved ejection fraction, severe alcohol abuse who presented to the hospital after drinking for the past 1 week as well as complaining of shortness of breath and diarrhea aspiration Pneumonia po augmentin alcohol dependence with withdrawal Continue phenobarb protocol thiamine and folic acid supplement hyponatremia Sodium improved to 131, monitor diarrhea likely secondary to alcohol withdrawal Negative C diff lactic acidosis secondary to dehydration not due to severe sepsis history of heart failure with preserved ejection fraction no evidence of volume overload negative BNP continue to monitor COPD refusing his home inhalers, DuoNeb p.r.n. DM insulin DVT ppx lovenox Quality Stroke Does the patient have a stroke diagnosis?: No VTE Prior VTE?: No VTE Risk Level:: Medical - moderate - high VTE Device Contraindication: Treatment Not Indicated VTE Drug Contraindication: N/A - Med Ordered
[2021-06-25 11:26] LABS: Glucose, Whole Blood 177 mg/dL (60-115)
[2021-06-25] MEDS: Amoxicillin/Potassium Clav 875 MG TABLET PO ×2 (12:00→22:23)
[2021-06-25] MEDS: guaiFENesin 200 MG/10 ML 10 ML LIQUID PO (14:54)
[2021-06-25] MEDS: ondansetron HCL 4 MG/2 ML VIAL IVPUSH (14:54)
[2021-06-25] MEDS: hydrOXYzine HCL 50 MG TABLET PO (15:05)
--- NOTE | 2021-06-25 16:28 | MHC.CM.PN ---
EMR REVIEWED, PT REMAINS ON PHENOBARB PROTOCOL W/SUPPLEMENTS, NO PLAN FOR D/C TODAY, CM WILL CON TO FOLLOW D/C NEEDS.
[2021-06-25 16:46] LABS: Glucose, Whole Blood 149 mg/dL (60-115)
[2021-06-25] MEDS: Tamsulosin HCL 0.4 MG CAPSULE PO ×2 (16:57→17:08)
[2021-06-25 19:55] LABS: Glucose, Whole Blood 180 mg/dL (60-115)
[2021-06-25] MEDS: Aspirin Enteric Coated 81 MG TABLET.DR PO (20:19)
[2021-06-25] MEDS: Insulin Glargine,Hum.rec.anlog 100 UNIT/ML 10 ML VIAL 30 UNIT SUBCUT (20:19)
[2021-06-25] MEDS: Atorvastatin Calcium 10 MG TABLET PO (20:19)
[2021-06-26] VITALS (10 sets, daily range): BP systolic 88–157; BP diastolic 52–83; PULSE 81–100; RESP 16–22; TEMP 35.9–36.9; O2SAT 92–97
--- NOTE | 2021-06-26 | ECG_ITS ---
Test Reason : chest pain Blood Pressure : / mmHG Vent. Rate : 085 BPM Atrial Rate : 085 BPM P-R Int : 154 ms QRS Dur : 074 ms QT Int : 340 ms P-R-T Axes : 077 000 087 degrees QTc Int : 404 ms Normal sinus rhythm Normal ECG When compared with ECG of 22-JUN-2021 20:26, Premature atrial complexes are no longer Present Referred By: Daniel Gomez Electronically Signed By:HERMAN TONEY MD
[2021-06-26] MEDS: guaiFENesin 200 MG/10 ML 10 ML LIQUID PO ×4 (03:59→17:16)
[2021-06-26] MEDS: Omeprazole 20 MG CAPSULE.DR PO ×2 (04:01→17:16)
[2021-06-26] MEDS: Famotidine/PF 20 MG/2 ML VIAL IVPUSH (04:49)
[2021-06-26] MEDS: HYDROmorphone HCl 0.5 MG/0.5 ML SYRINGE IVPUSH (04:49)
--- NOTE | 2021-06-26 05:13 | MHC.PIE ---
p; pt c/o cough and acid stomach. asking for prilosec and robitussin. prilosec given early off schedule, robitussin prn given at 0400. 0430 pt chest pain 02/16, b/p 113/79, p 90 i; dr sullivan notified; new order ekg, iv Pepcid, iv Dilaudid, labs e; pt now denies chest pain, pt reports only acid stomach and reports hx of ulcer in stomach/esophagus .... pt resistive to care, ekg taken after multiple redirection. will cont to monitor
[2021-06-26 07:35] LABS: Glucose, Whole Blood 249 mg/dL (60-115)
[2021-06-26] MEDS: Multivitamin TABLET 1 TAB PO (08:05)
[2021-06-26] MEDS: Gabapentin 300 MG CAPSULE 600 MG PO ×3 (08:05→20:57)
[2021-06-26] MEDS: Insulin Lispro 100 UNIT/ML 3 ML VIAL 10 UNIT SUBCUT ×2 (08:05→11:34)
[2021-06-26] MEDS: Insulin Lispro 100 UNIT/ML 3 ML VIAL SUBCUT ×3 (08:05→20:58)
[2021-06-26] MEDS: 0.9 % Sodium Chloride Flush 3 ML SYRINGE IVFLUSH ×2 (08:05→21:07)
[2021-06-26] MEDS: Famotidine 20 MG TABLET 40 MG PO ×2 (08:05→20:58)
[2021-06-26] MEDS: Thiamine HCL 100 MG TABLET PO (08:06)
[2021-06-26] MEDS: Folic Acid 1 MG TABLET PO (08:06)
[2021-06-26] MEDS: PHENobarbitaL 30 MG TABLET PO ×2 (08:06→20:58)
[2021-06-26] MEDS: lisinopriL 10 MG TABLET PO (08:06)
[2021-06-26] MEDS: hydrOXYzine HCL 50 MG TABLET PO ×2 (08:06→17:16)
[2021-06-26] MEDS: Acetaminophen 325 MG TABLET 650 MG PO (08:06)
[2021-06-26] MEDS: busPIRone HCl 5 MG TABLET PO ×2 (08:06→20:57)
--- NOTE | 2021-06-26 08:57 | HO.PM.IMPN ---
Subjective Subjective Date of Service: 06/26/21 Interval History: cc: sob interval history: heartburn Cardiovascular Cardiovascular: Reports no additional cardiovascular complaints Respiratory Respiratory: Reports no additional respiratory complaints Physical Exam Vital Signs: Vital Signs: Last Vital Signs Temp 97.8 F 06/26/21 07:34 Pulse 82 06/26/21 07:34 Resp 18 06/26/21 07:34 BP 133/63 06/26/21 07:34 Pulse Ox 92 06/26/21 07:34 BMI result Body Mass Index 33.4 General: AO X 3, no acute distress Resp: diminished bilateral, no accessory muscles used CVS: S1,S2,RRR GI: soft, non tender, non distended Neuro: motor grossly intact, alert Psych: appropriate affect, appropriate insight Objective Data Active Medications Acetaminophen (Acetaminophen 325 Mg Tablet) 650 mg PO Q6H PRN PRN Reason: Pain, Mild (Pain Scale 1-3) Last Admin: 06/26/21 08:06 Dose: 650 mg Documented by: DERICK Albuterol Sulfate (Albuterol Sulfate 90 Mcg 8 Gm Inhaler) 2 puff INHALE QID PRN PRN Reason: Wheezing Albuterol Sulfate (Albuterol Sulfate (0.083%) 2.5 Mg/3 Ml Vial.Neb) 2.5 mg INHALE QID PRN PRN Reason: Wheezing Amoxicillin/Clavulanate Potassium (Amoxicillin/Potassium Clav 875 Mg Tablet) 875 mg PO Q12H [facility] Last Admin: 06/25/21 22:23 Dose: 875 mg Documented by: RUBENS Aspirin (Aspirin Enteric Coated 81 Mg Tablet.) 81 mg PO BEDTIME [facility] Last Admin: 06/25/21 20:19 Dose: 81 mg Documented by: RUBENS Atorvastatin Calcium (Atorvastatin Calcium 10 Mg Tablet) 10 mg PO BEDTIME [facility] Last Admin: 06/25/21 20:19 Dose: 10 mg Documented by: RUBENS Buspirone HCl (Buspirone Hcl 5 Mg Tablet) 5 mg PO BID [facility] Last Admin: 06/26/21 08:06 Dose: 5 mg Documented by: DERICK Enoxaparin Sodium (Enoxaparin Sodium 40 Mg/0.4 Ml Syringe) 40 mg SUBCUT Q24H [facility] Last Admin: 06/25/21 22:23 Dose: Not Given Documented by: RUBENS Non-Admin Reason: Patient Refused Famotidine (Famotidine 20 Mg Tablet) 40 mg PO BID [facility] Last Admin: 06/26/21 08:05 Dose: 40 mg Documented by: COTARMANDO Folic Acid (Folic Acid 1 Mg Tablet) 1 mg PO DAILY [facility] Last Admin: 06/26/21 08:06 Dose: 1 mg Documented by: COTEMA Gabapentin (Gabapentin 300 Mg Capsule) 600 mg PO TID [facility] Last Admin: 06/26/21 08:05 Dose: 600 mg Documented by: COTEMA Guaifenesin (Guaifenesin 200 Mg/10 Ml 10 Ml Liquid) 10 ml PO Q4H PRN PRN Reason: cough Last Admin: 06/26/21 08:04 Dose: 10 ml Documented by: COTARMANDO Hydroxyzine HCl (Hydroxyzine Hcl 25 Mg Tablet) 25 mg PO Q6H PRN PRN Reason: anxiety/restlessness Hydroxyzine HCl (Hydroxyzine Hcl 50 Mg Tablet) 50 mg PO Q8H PRN PRN Reason: Anxiety Last Admin: 06/26/21 08:06 Dose: 50 mg Documented by: DERICK Insulin Glargine (Insulin Glargine,Hum.Rec.Anlog 100 Unit/Ml 10 Ml Vial) 30 unit SUBCUT BEDTIME [facility] Last Admin: 06/25/21 20:19 Dose: 30 unit Documented by: RUBENS Insulin Human Lispro (Insulin Lispro 100 Unit/Ml 3 Ml Vial) 10 unit SUBCUT TIDAC [facility] Last Admin: 06/26/21 08:05 Dose: 10 unit Documented by: DERICK Insulin Human Lispro (Insulin Lispro 100 Unit/Ml 3 Ml Vial) 0 unit SUBCUT QIDACHS [facility]; Protocol Last Admin: 06/26/21 08:05 Dose: 4 unit Documented by: DERICK Lisinopril (Lisinopril 10 Mg Tablet) 10 mg PO DAILY [facility]; Protocol Last Admin: 06/26/21 08:06 Dose: 10 mg Documented by: COTEMA Medication (No Benzodiazepines) 1 each MISCELLANE DAILY [facility] Multivitamins/Vitamin C (Multivitamin Tablet) 1 tab PO DAILY [facility] Last Admin: 06/26/21 08:05 Dose: 1 tab Documented by: COTEMA Non-Formulary Medication (Ramelteon) 1 tab PO BEDTIME [facility] Omeprazole (Omeprazole 20 Mg Capsule.) 20 mg PO BID@0630,1630 [facility] Last Admin: 06/26/21 04:01 Dose: 20 mg Documented by: RUBENS Ondansetron HCl (Ondansetron Hcl 4 Mg/2 Ml Vial) 4 mg IVPUSH Q8H PRN PRN Reason: Nausea and Vomiting Last Admin: 06/25/21 14:54 Dose: 4 mg Documented by: YOUSUF Pharmacy Consult (Consult Rx Perform Med Rec) 1 each MISCELLANE ONCE PRN PRN Reason: Consult order Phenobarbital (Phenobarbital 30 Mg Tablet) 30 mg PO BID [facility] Stop: 06/26/21 21:01 Last Admin: 06/26/21 08:06 Dose: 30 mg Documented by: COTEMA Phenobarbital (Phenobarbital 15 Mg Tablet) 15 mg PO DAILY [facility] Stop: 06/28/21 09:01 Sodium Chloride (0.9 % Sodium Chloride Flush 3 Ml Syringe) 3 ml IVFLUSH QSHIFT [facility] Last Admin: 06/26/21 08:05 Dose: 3 ml Documented by: DERICK Tamsulosin HCl (Tamsulosin Hcl 0.4 Mg Capsule) 0.4 mg PO DAILY@1700 [facility] Last Admin: 06/25/21 17:08 Dose: 0.4 mg Documented by: YOUSUF Thiamine HCl (Thiamine Hcl 100 Mg Tablet) 100 mg PO DAILY [facility] Last Admin: 06/26/21 08:06 Dose: 100 mg Documented by: DERICK Labs CBC & Chem 7: 06/25/21 08:41 06/25/21 05:38 Labs: Laboratory Results - last 24 hr 06/25/21 06/25/21 06/25/21 08:41 11:08 16:43 MCV 93.1 MCH 31.8 MCHC 34.1 RDW 14.1 Plt Count 304 D MPV 8.6 L Absolute Nucleated RBC 0.000 Nucleated RBC % (auto) 0.0 POC Glucose 177 H 149 H 06/25/21 06/26/21 19:48 07:19 MCV MCH MCHC RDW Plt Count MPV Absolute Nucleated RBC Nucleated RBC % (auto) POC Glucose 180 H 249 H Assessment and Plan (1) Aspiration pneumonia: Status: Acute (2) Hyponatremia: Status: Acute (3) Alcohol withdrawal: Status: Acute Plan 65-year-old male with past medical history of COPD, heart failure with preserved ejection fraction, severe alcohol abuse who presented to the hospital after drinking for the past 1 week as well as complaining of shortness of breath and diarrhea aspiration Pneumonia continue po augmentin heartburn/odynophagia ppi gi eval alcohol dependence with withdrawal Continue phenobarb protocol thiamine and folic acid supplement hyponatremia Sodium improved to 131, monitor diarrhea likely secondary to alcohol withdrawal Negative C diff lactic acidosis secondary to dehydration not due to severe sepsis history of heart failure with preserved ejection fraction no evidence of volume overload negative BNP continue to monitor COPD refusing his home inhalers, DuoNeb p.r.n. DM insulin DVT ppx lovenox Quality Stroke Does the patient have a stroke diagnosis?: No VTE Prior VTE?: No VTE Risk Level:: Medical - moderate - high VTE Device Contraindication: Treatment Not Indicated VTE Drug Contraindication: N/A - Med Ordered
[2021-06-26 11:12] LABS: Glucose, Whole Blood 269 mg/dL (60-115)
[2021-06-26] MEDS: Amoxicillin/Potassium Clav 875 MG TABLET PO ×2 (11:35→22:02)
[2021-06-26 12:21] LABS: Hematocrit 37.2 % (42.0-52.0); Hemoglobin 12.4 g/dl (14.0-18.0); Mean Corpuscular HGB Conc 33.3 g/dl (31.0-36.0); Mean Corpuscular Hemoglobin 31.1 pg (27.0-33.0); Mean Corpuscular Volume 93.2 fL (80.0-98.0); Mean Platelet Volume 8.2 fL (9.4-12.4); Platelet Count 311 X10*3/uL (160-400); Red Blood Count 3.99 X10*6/uL (4.60-5.80); Red Cell Distribution Width 14.2 % (11.0-16.0); White Blood Count 7.6 X10*3/uL (4.8-10.8)
[2021-06-26 12:36] LABS: Anion Gap 12 (12-20); Blood Urea Nitrogen 26 mg/dL (9-16); Calcium 8.8 mg/dL (8.4-10.2); Carbon Dioxide 30 mmol/L (22-29); Chloride 95 mmol/L (96-108); Creatinine Clr Calc Pharmacy 76.6; Estimated Glomerular Filt Rate > 60; Glucose Fasting 201 mg/dL (60-99); Potassium 4.5 mmol/L (3.3-5.1); Sodium 132 mmol/L (135-145)
[2021-06-26 12:39] LABS: Troponin-I High Sensitivity 7.5 ng/L (<3.5-35.0)
[2021-06-26 12:40] LABS: Troponin-I High Sensitivity 7.1 ng/L (<3.5-35.0)
[2021-06-26] MEDS: ondansetron HCL 4 MG/2 ML VIAL IVPUSH ×2 (13:33→20:59)
[2021-06-26] MEDS: 0.9 % Sodium Chloride 1,000 ML 999 ML IV (13:34)
--- NOTE | 2021-06-26 15:59 | PM.EVENT ---
Event Note Date of Service: 06/26/21 Event Note: GI Consult-Full note dictated Imp: Chest discomfort, belching. Seems most c/w GERD/esophageal spasm/esophagitis. His pneumonia may very well be contributing to this as well.He denies odynophagia and dysphagia. He denies N/V/anorexia nor change with meals.Denies any signs of bleeding or abdominal pain. He says it's worse with lying down and relieved by sitting up. His chest CT describes pneumonia but no other worrisome findings. No chest wall tenderness nor any abdominal findings. Rec: Continue PPI BID and diet as tolerated. R/O any contributing cardiac or pulmonary process at your discretion. Would hold off on upper endoscopy at this time. If the symptoms persist and the workup is negative we could have him undergo an upper endoscopy at some point. I did advise him to avoid alcohol as that can contribute to esophageal disease. I also ordered a liquid antacid prn for him. Thanks
[2021-06-26] MEDS: Albuterol Sulfate (0.083%) 2.5 MG/3 ML VIAL.NEB INHALE (16:11)
[2021-06-26 16:31] LABS: CDiff Gene PCR NEGATIVE (Negative)
[2021-06-26 16:35] LABS: Glucose, Whole Blood 78 mg/dL (60-115)
--- NOTE | 2021-06-26 17:12 | PC.NURSE ---
pt manual bp 88/60 order for 1L NS bolus ordered. IV access infiltrated. Nursing supervisor communications and signals attempted to obtain access and director of emergency nursing attempted to obtain access. IV access could not be obtained. MD contacted and made aware. BP recheck was 108/88. MD verbal order to hold on bolus for now. Will continue to monitor bp.
[2021-06-26] MEDS: Tamsulosin HCL 0.4 MG CAPSULE PO (17:16)
[2021-06-26] MEDS: Magnesium Hydrox/Alum Hydrox 30 ML ORAL.SUSP PO ×2 (17:16→20:36)
[2021-06-26] MEDS: Loperamide HCl 2 MG CAPSULE PO (17:59)
[2021-06-26 20:47] LABS: Glucose, Whole Blood 349 mg/dL (60-115)
[2021-06-26] MEDS: Aspirin Enteric Coated 81 MG TABLET.DR PO (20:57)
[2021-06-26] MEDS: Atorvastatin Calcium 10 MG TABLET PO (20:57)
[2021-06-26] MEDS: Insulin Glargine,Hum.rec.anlog 100 UNIT/ML 10 ML VIAL 30 UNIT SUBCUT (20:59)
--- NOTE | 2021-06-27 05:10 | CONS_ITS ---
DATE OF SERVICE: 06/26/2021 REASON FOR CONSULTATION: Gastroesophageal reflux, belching, and chest discomfort. HISTORY OF PRESENT ILLNESS: The patient is a 65-year-old male with a long-standing history of significant alcohol use, in which, he describes drinking at least 1 L of vodka per day. He was admitted here for treatment of pneumonia and some alcohol withdrawal. He describes at least 1 month of some ongoing symptoms of some anterior chest wall discomfort with associated belching. He describes a sense of congestion in his chest. He has been on omeprazole, but this was increased to b.i.d. dosing since hospitalization. He describes that the symptoms seem to be worse when lying down in regard to the chest discomfort, but are relieved by sitting up. He denies any issues with odynophagia, nor dysphagia. He does have some heartburn, but the main symptom is that of some chest discomfort, belching, and some fullness in the chest area by his description. He denies any anorexia, nausea, nor vomiting. He denies any change in his symptoms with eating. He is currently on antibiotics for a pneumonia. He denies any history of ulcer disease, nor any previous upper endoscopies as far as he can recall. He does not use any chronic NSAIDs at home. CURRENT MEDICATIONS: Albuterol inhaler, Augmentin, famotidine 40 mg p.o. b.i.d., folic acid, Dilaudid p.r.n., gabapentin, Atarax, insulin, lisinopril, loperamide, vitamins, omeprazole 20 mg b.i.d., Zofran p.r.n., phenobarbital, Flomax, and thiamin. PAST MEDICAL HISTORY: Chronic alcohol abuse. Recent admission now for pneumonia. COPD. Diabetes. CHF. Hypertension. He describes some orthopedic surgeries. SOCIAL HISTORY: He smokes cigars. Alcohol as above. REVIEW OF SYSTEMS: CONSTITUTIONAL: He has been feeling poorly at home in relation to his chronic alcohol use and pneumonia. SKIN: No rash. No pruritus. CARDIAC: No chest pain other than what he is describing here in the hospital. PULMONARY: No coughing or hemoptysis. GI: As above. He has not noticed any hematochezia, nor melena. He has had no hematemesis, nor coffee-grounds emesis. He denies any increasing abdominal girth. PHYSICAL EXAMINATION: GENERAL: The patient is a pleasant, alert, comfortable-appearing male, in no distress. He is sitting up in a chair. SKIN: Warm and dry. There is no chest wall tenderness. HEENT: Anicteric sclerae. ABDOMEN: Soft, nondistended, nontender. LABORATORY DATA: White blood cell count 7.6, hemoglobin 12.4, platelets 211,000. PT 12.4 with INR 1.1. Sodium 132, potassium 4.5, chloride 95, CO2 of 30, BUN 26, creatinine 1.1. His LFTs on admission showed a total bilirubin 0.3, AST 11, ALT 12, and alkaline phosphatase 86. Ammonia level is 25. Stool C difficile was negative. COVID was negative. He had a CT scan of his chest and abdomen that describes bilateral airspace disease. There is no evidence of any pericardial disease, nor pleural effusions. There is no description of any esophageal disease. IMPRESSION: Given the patient's current symptomatology, this seems probably most consistent with some component of reflux and associated esophageal spasm, as well as perhaps some esophagitis in relation to his chronic alcohol abuse. His pneumonia may very well be contributing to his chest discomfort as well. I do not think this reflects any type of infectious esophagitis given no reported odynophagia, nor dysphagia. His eating seems to be comfortable and not exacerbating his symptoms. At this point, I would hold off on an upper endoscopy given no worrisome symptoms such as the dysphagia, nor odynophagia, plus he is still recuperating from his pneumonia. I would continue his b.i.d. PPI and diet as tolerated. If need be, I would leave the need to rule out any contributing cardiac or pulmonary process to your discretion. I would add a trial of a liquid antacid to see if that gives him any symptomatic relief as well. If the symptoms persist and the workup remains negative, we could always have him undergo an upper endoscopy at some point if need be. I did advise him to avoid alcohol as that can obviously contribute to esophageal disease. This has been discussed with him in detail. MD NAE Mijares/ROYAL / [id number] EDGARD
[2021-06-27] MEDS: Omeprazole 20 MG CAPSULE.DR PO ×2 (06:29→16:29)
[2021-06-27 07:00] VITALS: BP 142/74; PULSE 73; RESP 20; TEMP 36.1; O2SAT 90
[2021-06-27 07:28] LABS: Glucose, Whole Blood 165 mg/dL (60-115)
[2021-06-27] MEDS: Gabapentin 300 MG CAPSULE 600 MG PO ×3 (07:49→20:45)
[2021-06-27] MEDS: Insulin Lispro 100 UNIT/ML 3 ML VIAL SUBCUT ×4 (07:49→20:46)
[2021-06-27] MEDS: Insulin Lispro 100 UNIT/ML 3 ML VIAL 10 UNIT SUBCUT ×3 (07:49→16:30)
[2021-06-27] MEDS: busPIRone HCl 5 MG TABLET PO ×2 (07:50→20:45)
[2021-06-27] MEDS: guaiFENesin 200 MG/10 ML 10 ML LIQUID PO ×4 (07:50→20:45)
[2021-06-27] MEDS: hydrOXYzine HCL 50 MG TABLET PO ×2 (07:50→16:29)
[2021-06-27] MEDS: Famotidine 20 MG TABLET 40 MG PO ×2 (07:50→20:45)
[2021-06-27] MEDS: Folic Acid 1 MG TABLET PO (07:50)
[2021-06-27] MEDS: lisinopriL 10 MG TABLET PO (07:50)
[2021-06-27] MEDS: PHENobarbitaL 15 MG TABLET PO (07:50)
[2021-06-27] MEDS: Magnesium Hydrox/Alum Hydrox 30 ML ORAL.SUSP PO ×4 (07:50→20:45)
[2021-06-27] MEDS: Loperamide HCl 2 MG CAPSULE PO ×4 (07:50→20:45)
[2021-06-27] MEDS: Thiamine HCL 100 MG TABLET PO (07:50)
[2021-06-27] MEDS: Multivitamin TABLET 1 TAB PO (07:50)
[2021-06-27 09:01] LABS: Anion Gap 15 (12-20); Blood Urea Nitrogen 19 mg/dL (9-16); Calcium 8.5 mg/dL (8.4-10.2); Carbon Dioxide 25 mmol/L (22-29); Chloride 97 mmol/L (96-108); Creatinine Clr Calc Pharmacy 88.7; Estimated Glomerular Filt Rate > 60; Glucose Fasting 234 mg/dL (60-99); Potassium 4.8 mmol/L (3.3-5.1); Sodium 132 mmol/L (135-145)
[2021-06-27 09:10] LABS: Hemoglobin 12.3 g/dl (14.0-18.0); Mean Corpuscular HGB Conc 32.4 g/dl (31.0-36.0); Mean Corpuscular Hemoglobin 31.4 pg (27.0-33.0); Mean Corpuscular Volume 96.9 fL (80.0-98.0); Red Blood Count 3.92 X10*6/uL (4.60-5.80); Red Cell Distribution Width 14.3 % (11.0-16.0); White Blood Count 7.6 X10*3/uL (4.8-10.8)
[2021-06-27 09:13] LABS: Platelet Count 256 X10*3/uL (160-400)
--- NOTE | 2021-06-27 09:30 | P.PNIM_ITS ---
Subjective Subjective Date of Service: 06/27/21 Interval History: cc: sob interval history: n/v Cardiovascular Cardiovascular: Reports no additional cardiovascular complaints Respiratory Respiratory: Reports no additional respiratory complaints Physical Exam Vital Signs: Vital Signs: Last Vital Signs Temp 97 F 06/27/21 07:00 Pulse 73 06/27/21 07:00 Resp 20 06/27/21 07:00 BP 142/74 H 06/27/21 07:00 Pulse Ox 90 L 06/27/21 07:00 BMI result Body Mass Index 33.4 General: AO X 3, no acute distress Resp:? diminished bilateral, no accessory muscles used CVS: S1,S2,RRR GI: soft, non tender, non distended Neuro:? motor grossly intact, alert Psych: appropriate affect, appropriate insight? Objective Data Active Medications Acetaminophen (Acetaminophen 325 Mg Tablet) 650 mg PO Q6H PRN PRN Reason: Pain, Mild (Pain Scale 1-3) Last Admin: 06/26/21 08:06 Dose: 650 mg Documented by: DERICK Al Hydroxide/Mg Hydroxide (Magnesium Hydrox/Alum Hydrox 30 Ml Oral.Susp) 30 ml PO Q4H PRN PRN Reason: Chest Pain Last Admin: 06/27/21 07:50 Dose: 30 ml Documented by: DERICK Albuterol Sulfate (Albuterol Sulfate 90 Mcg 8 Gm Inhaler) 2 puff INHALE QID PRN PRN Reason: Wheezing Albuterol Sulfate (Albuterol Sulfate (0.083%) 2.5 Mg/3 Ml Vial.Neb) 2.5 mg INHALE QID PRN PRN Reason: Wheezing Last Admin: 06/26/21 16:11 Dose: 2.5 mg Documented by: MCKENZIE Amoxicillin/Clavulanate Potassium (Amoxicillin/Potassium Clav 875 Mg Tablet) 875 mg PO Q12H [facility] Last Admin: 06/26/21 22:02 Dose: 875 mg Documented by: RUBENS Aspirin (Aspirin Enteric Coated 81 Mg Tablet.) 81 mg PO BEDTIME [facility] Last Admin: 06/26/21 20:57 Dose: 81 mg Documented by: RUBENS Atorvastatin Calcium (Atorvastatin Calcium 10 Mg Tablet) 10 mg PO BEDTIME [facility] Last Admin: 06/26/21 20:57 Dose: 10 mg Documented by: RUBENS Buspirone HCl (Buspirone Hcl 5 Mg Tablet) 5 mg PO BID [facility] Last Admin: 06/27/21 07:50 Dose: 5 mg Documented by: CRISPIN.COTEMA Enoxaparin Sodium (Enoxaparin Sodium 40 Mg/0.4 Ml Syringe) 40 mg SUBCUT Q24H [facility] Last Admin: 06/26/21 22:04 Dose: Not Given Documented by: RUBENS Non-Admin Reason: Patient Refused Famotidine (Famotidine 20 Mg Tablet) 40 mg PO BID [facility] Last Admin: 06/27/21 07:50 Dose: 40 mg Documented by: CRISPIN.COTEMA Folic Acid (Folic Acid 1 Mg Tablet) 1 mg PO DAILY [facility] Last Admin: 06/27/21 07:50 Dose: 1 mg Documented by: CRISPIN.COTEMA Gabapentin (Gabapentin 300 Mg Capsule) 600 mg PO TID [facility] Last Admin: 06/27/21 07:49 Dose: 600 mg Documented by: CRISPIN.COTEMA Guaifenesin (Guaifenesin 200 Mg/10 Ml 10 Ml Liquid) 10 ml PO Q4H PRN PRN Reason: cough Last Admin: 06/27/21 07:50 Dose: 10 ml Documented by: COTEMA Hydroxyzine HCl (Hydroxyzine Hcl 50 Mg Tablet) 50 mg PO Q8H PRN PRN Reason: Anxiety Last Admin: 06/27/21 07:50 Dose: 50 mg Documented by: COTEMA Insulin Glargine (Insulin Glargine,Hum.Rec.Anlog 100 Unit/Ml 10 Ml Vial) 30 unit SUBCUT BEDTIME [facility] Last Admin: 06/26/21 20:59 Dose: 30 unit Documented by: RUBENS Insulin Human Lispro (Insulin Lispro 100 Unit/Ml 3 Ml Vial) 10 unit SUBCUT TIDAC [facility] Last Admin: 06/27/21 07:49 Dose: 10 unit Documented by: DERICK Insulin Human Lispro (Insulin Lispro 100 Unit/Ml 3 Ml Vial) 0 unit SUBCUT QIDACHS [facility]; Protocol Last Admin: 06/27/21 07:49 Dose: 2 unit Documented by: COTEMA Lisinopril (Lisinopril 10 Mg Tablet) 10 mg PO DAILY [facility]; Protocol Last Admin: 06/27/21 07:50 Dose: 10 mg Documented by: HO.COTEMA Loperamide HCl (Loperamide Hcl 2 Mg Capsule) 2 mg PO Q4H PRN PRN Reason: Diarrhea Last Admin: 06/27/21 07:50 Dose: 2 mg Documented by: COTEMA Medication (No Benzodiazepines) 1 each MISCELLANE DAILY [facility] Multivitamins/Vitamin C (Multivitamin Tablet) 1 tab PO DAILY [facility] Last Admin: 06/27/21 07:50 Dose: 1 tab Documented by: COTEMA Non-Formulary Medication (Ramelteon) 1 tab PO BEDTIME [facility] Omeprazole (Omeprazole 20 Mg Capsule.Dr) 20 mg PO BID@0630,1630 [facility] Last Admin: 06/27/21 06:29 Dose: 20 mg Documented by: RUBENS Ondansetron HCl (Ondansetron Hcl 4 Mg/2 Ml Vial) 4 mg IVPUSH Q8H PRN PRN Reason: Nausea and Vomiting Last Admin: 06/26/21 20:59 Dose: 4 mg Documented by: RUBENS Pharmacy Consult (Consult Rx Perform Med Rec) 1 each MISCELLANE ONCE PRN PRN Reason: Consult order Phenobarbital (Phenobarbital 15 Mg Tablet) 15 mg PO DAILY [facility] Stop: 06/28/21 09:01 Last Admin: 06/27/21 07:50 Dose: 15 mg Documented by: COTEMA Sodium Chloride (0.9 % Sodium Chloride Flush 3 Ml Syringe) 3 ml IVFLUSH QSHIFT [facility] Last Admin: 06/27/21 07:49 Dose: Not Given Documented by: COTEMA Non-Admin Reason: No Access Tamsulosin HCl (Tamsulosin Hcl 0.4 Mg Capsule) 0.4 mg PO DAILY@1700 [facility] Last Admin: 06/26/21 17:16 Dose: 0.4 mg Documented by: COTEMA Thiamine HCl (Thiamine Hcl 100 Mg Tablet) 100 mg PO DAILY [facility] Last Admin: 06/27/21 07:50 Dose: 100 mg Documented by: DERICK Labs CBC & Chem 7: 06/27/21 08:44 06/27/21 08:44 Labs: Laboratory Results - last 24 hr 06/26/21 06/26/21 06/26/21 11:01 12:14 12:14 MCV 93.2 MCH 31.1 MCHC 33.3 RDW 14.2 Plt Count 311 MPV 8.2 L Absolute Nucleated RBC 0.000 Nucleated RBC % (auto) 0.0 Anion Gap 12 Estim Creat Clear Calc 76.6 Estimated GFR > 60 POC Glucose 269 H Fasting Glucose 201 H Calcium 8.8 C. difficile Tox B Gene 06/26/21 06/26/21 06/26/21 14:56 16:15 20:42 MCV MCH MCHC RDW Plt Count MPV Absolute Nucleated RBC Nucleated RBC % (auto) Anion Gap Estim Creat Clear Calc Estimated GFR POC Glucose 78 349 H Fasting Glucose Calcium C. difficile Tox B Gene NEGATIVE 06/27/21 06/27/21 06/27/21 07:00 08:44 08:44 MCV 96.9 MCH 31.4 MCHC 32.4 RDW 14.3 Plt Count 256 MPV 9.0 L Absolute Nucleated RBC 0.000 Nucleated RBC % (auto) 0.0 Anion Gap 15 Estim Creat Clear Calc 88.7 Estimated GFR > 60 POC Glucose 165 H Fasting Glucose 234 H Calcium 8.5 C. difficile Tox B Gene Microbiology Microbiology Results: Microbiology 06/26/21 14:56 Stool Culture - Preliminary Stool Culture in progress. Assessment and Plan (1) Aspiration pneumonia: Status: Acute (2) Hyponatremia: Status: Acute (3) Alcohol withdrawal: Status: Acute Plan 65-year-old male with past medical history of COPD, heart failure with preserved ejection fraction, severe alcohol abuse who presented to the hospital after drinking for the past 1 week as well as complaining of shortness of breath and diarrhea aspiration Pneumonia continue po augmentin heartburn/odynophagia gi appreciated, continue ppi diarrhea cdif negative, imodium fluctuating BPs likely autonomic dysfunction due to alcohol alcohol dependence with withdrawal Continue phenobarb protocol thiamine and folic acid supplement hyponatremia Sodium improved to 132 lactic acidosis secondary to dehydration not due to severe sepsis history of heart failure with preserved ejection fraction no evidence of volume overload negative BNP continue to monitor COPD refusing his home inhalers, DuoNeb p.r.n. DM insulin DVT ppx lovenox Quality Stroke Does the patient have a stroke diagnosis?: No VTE Prior VTE?: No VTE Risk Level:: Medical - moderate - high VTE Device Contraindication: Treatment Not Indicated VTE Drug Contraindication: N/A - Med Ordered
[2021-06-27 11:11] VITALS: BP 135/65; PULSE 87; RESP 18; TEMP 36.1; O2SAT 93
[2021-06-27 11:25] LABS: Glucose, Whole Blood 249 mg/dL (60-115)
[2021-06-27] MEDS: Amoxicillin/Potassium Clav 875 MG TABLET PO ×2 (11:45→23:22)
--- NOTE | 2021-06-27 12:28 | MHC.CM.PN ---
EMR REVIEWED, PER HOSPITALIST NO PLAN FOR D/C TODAY, ANTIC POSSIBLE W/E D/C HOME NO SERVICES, PT WILL NEED TRANSPORT HOME, IMM REVIEWED 06/27/21.
[2021-06-27 15:49] VITALS: BP 130/73; PULSE 89; RESP 20; TEMP 36.8; O2SAT 95
[2021-06-27 15:59] LABS: Glucose, Whole Blood 192 mg/dL (60-115)
[2021-06-27] MEDS: Tamsulosin HCL 0.4 MG CAPSULE PO (16:29)
[2021-06-27 19:35] VITALS: BP 114/56; PULSE 86; RESP 16; TEMP 37.1; O2SAT 92
[2021-06-27 20:04] LABS: Glucose, Whole Blood 169 mg/dL (60-115)
[2021-06-27] MEDS: Atorvastatin Calcium 10 MG TABLET PO (20:45)
[2021-06-27] MEDS: Aspirin Enteric Coated 81 MG TABLET.DR PO (20:45)
[2021-06-27] MEDS: Insulin Glargine,Hum.rec.anlog 100 UNIT/ML 10 ML VIAL 30 UNIT SUBCUT (20:45)
[2021-06-27] MEDS: 0.9 % Sodium Chloride Flush 3 ML SYRINGE IVFLUSH (20:46)
[2021-06-27 23:42] VITALS: BP 101/46; PULSE 86; RESP 16; TEMP 36.6; O2SAT 97
[2021-06-28] VITALS (7 sets, daily range): BP systolic 96–159; BP diastolic 50–72; PULSE 75–92; RESP 16–18; TEMP 36.3–36.9; O2SAT 92–97
[2021-06-28 05:49] LABS: Hematocrit 36.9 % (42.0-52.0); Hemoglobin 12.5 g/dl (14.0-18.0); Mean Corpuscular HGB Conc 33.9 g/dl (31.0-36.0); Mean Corpuscular Hemoglobin 31.7 pg (27.0-33.0); Mean Corpuscular Volume 93.7 fL (80.0-98.0); Mean Platelet Volume 8.4 fL (9.4-12.4); Platelet Count 278 X10*3/uL (160-400); Red Blood Count 3.94 X10*6/uL (4.60-5.80); White Blood Count 5.5 X10*3/uL (4.8-10.8)
[2021-06-28] MEDS: Omeprazole 20 MG CAPSULE.DR PO ×2 (05:52→17:02)
[2021-06-28 06:03] LABS: Anion Gap 13 (12-20); Blood Urea Nitrogen 17 mg/dL (9-16); Calcium 8.8 mg/dL (8.4-10.2); Carbon Dioxide 32 mmol/L (22-29); Chloride 94 mmol/L (96-108); Creatinine Clr Calc Pharmacy 87.8; Estimated Glomerular Filt Rate > 60; Glucose Fasting 177 mg/dL (60-99); Potassium 4.8 mmol/L (3.3-5.1); Sodium 134 mmol/L (135-145)
[2021-06-28 07:35] LABS: Glucose, Whole Blood 167 mg/dL (60-115)
[2021-06-28] MEDS: Gabapentin 300 MG CAPSULE 600 MG PO ×3 (08:03→20:05)
[2021-06-28] MEDS: Multivitamin TABLET 1 TAB PO (08:03)
[2021-06-28] MEDS: Folic Acid 1 MG TABLET PO (08:03)
[2021-06-28] MEDS: Thiamine HCL 100 MG TABLET PO (08:03)
[2021-06-28] MEDS: Famotidine 20 MG TABLET 40 MG PO ×2 (08:04→20:04)
[2021-06-28] MEDS: PHENobarbitaL 15 MG TABLET PO (08:04)
[2021-06-28] MEDS: lisinopriL 10 MG TABLET PO (08:04)
[2021-06-28] MEDS: busPIRone HCl 5 MG TABLET PO ×2 (08:04→20:05)
[2021-06-28] MEDS: Insulin Lispro 100 UNIT/ML 3 ML VIAL 10 UNIT SUBCUT ×3 (08:05→16:43)
[2021-06-28] MEDS: Insulin Lispro 100 UNIT/ML 3 ML VIAL SUBCUT ×4 (08:05→20:05)
[2021-06-28] MEDS: guaiFENesin 200 MG/10 ML 10 ML LIQUID PO ×2 (09:16→14:20)
[2021-06-28] MEDS: Loperamide HCl 2 MG CAPSULE PO ×2 (09:16→14:20)
[2021-06-28] MEDS: Amoxicillin/Potassium Clav 875 MG TABLET PO ×2 (09:50→23:32)
[2021-06-28] MEDS: Magnesium Hydrox/Alum Hydrox 30 ML ORAL.SUSP PO ×2 (09:50→14:24)
[2021-06-28] MEDS: predniSONE 20 MG TABLET 40 MG PO (09:54)
--- NOTE | 2021-06-28 11:41 | P.PNIM_ITS ---
Subjective Subjective Date of Service: 06/28/21 Interval History: cc: sob interval history: n/v/d Cardiovascular Cardiovascular: Reports no additional cardiovascular complaints Respiratory Respiratory: Reports no additional respiratory complaints Physical Exam Vital Signs: Vital Signs: Last Vital Signs Temp 98.0 F 06/28/21 08:00 Pulse 89 06/28/21 08:00 Resp 18 06/28/21 08:00 BP 159/72 H 06/28/21 08:00 Pulse Ox 95 06/28/21 08:00 BMI result Body Mass Index 33.4 General: AO X 3, no acute distress Resp:? diminished bilateral, no accessory muscles used CVS: S1,S2,RRR GI: soft, non tender, non distended Neuro:? motor grossly intact, alert Psych: appropriate affect, appropriate insight? Objective Data Active Medications Acetaminophen (Acetaminophen 325 Mg Tablet) 650 mg PO Q6H PRN PRN Reason: Pain, Mild (Pain Scale 1-3) Last Admin: 06/26/21 08:06 Dose: 650 mg Documented by: DERICK Al Hydroxide/Mg Hydroxide (Magnesium Hydrox/Alum Hydrox 30 Ml Oral.Susp) 30 ml PO Q4H PRN PRN Reason: Chest Pain Last Admin: 06/28/21 09:50 Dose: 30 ml Documented by: YOUSUF Albuterol Sulfate (Albuterol Sulfate 90 Mcg 8 Gm Inhaler) 2 puff INHALE QID PRN PRN Reason: Wheezing Albuterol Sulfate (Albuterol Sulfate (0.083%) 2.5 Mg/3 Ml Vial.Neb) 2.5 mg INHALE QID PRN PRN Reason: Wheezing Last Admin: 06/26/21 16:11 Dose: 2.5 mg Documented by: MCKENZIE Amoxicillin/Clavulanate Potassium (Amoxicillin/Potassium Clav 875 Mg Tablet) 875 mg PO Q12H [facility] Last Admin: 06/28/21 09:50 Dose: 875 mg Documented by: YOUSUF Aspirin (Aspirin Enteric Coated 81 Mg Tablet.) 81 mg PO BEDTIME [facility] Last Admin: 06/27/21 20:45 Dose: 81 mg Documented by: ZANDRA Atorvastatin Calcium (Atorvastatin Calcium 10 Mg Tablet) 10 mg PO BEDTIME [facility] Last Admin: 06/27/21 20:45 Dose: 10 mg Documented by: HO.ODRISM Buspirone HCl (Buspirone Hcl 5 Mg Tablet) 5 mg PO BID [facility] Last Admin: 06/28/21 08:04 Dose: 5 mg Documented by: YOUSUF Enoxaparin Sodium (Enoxaparin Sodium 40 Mg/0.4 Ml Syringe) 40 mg SUBCUT Q24H [facility] Last Admin: 06/28/21 00:40 Dose: Not Given Documented by: ODRISM Non-Admin Reason: Patient Refused Famotidine (Famotidine 20 Mg Tablet) 40 mg PO BID [facility] Last Admin: 06/28/21 08:04 Dose: 40 mg Documented by: YOUSUF Folic Acid (Folic Acid 1 Mg Tablet) 1 mg PO DAILY [facility] Last Admin: 06/28/21 08:03 Dose: 1 mg Documented by: YOUSUF Gabapentin (Gabapentin 300 Mg Capsule) 600 mg PO TID [facility] Last Admin: 06/28/21 08:03 Dose: 600 mg Documented by: YOUSUF Guaifenesin (Guaifenesin 200 Mg/10 Ml 10 Ml Liquid) 10 ml PO Q4H PRN PRN Reason: cough Last Admin: 06/28/21 09:16 Dose: 10 ml Documented by: YOUSUF Hydroxyzine HCl (Hydroxyzine Hcl 50 Mg Tablet) 50 mg PO Q8H PRN PRN Reason: Anxiety Last Admin: 06/27/21 16:29 Dose: 50 mg Documented by: COTEMA Insulin Glargine (Insulin Glargine,Hum.Rec.Anlog 100 Unit/Ml 10 Ml Vial) 30 unit SUBCUT BEDTIME [facility] Last Admin: 06/27/21 20:45 Dose: 30 unit Documented by: ZANDRA Insulin Human Lispro (Insulin Lispro 100 Unit/Ml 3 Ml Vial) 10 unit SUBCUT TIDAC [facility] Last Admin: 06/28/21 08:05 Dose: 10 unit Documented by: YOUSUF Insulin Human Lispro (Insulin Lispro 100 Unit/Ml 3 Ml Vial) 0 unit SUBCUT QIDACHS [facility]; Protocol Last Admin: 06/28/21 08:05 Dose: 2 unit Documented by: YOUSUF Lisinopril (Lisinopril 10 Mg Tablet) 10 mg PO DAILY [facility]; Protocol Last Admin: 06/28/21 08:04 Dose: 10 mg Documented by: YOUSUF Loperamide HCl (Loperamide Hcl 2 Mg Capsule) 2 mg PO Q4H PRN PRN Reason: Diarrhea Last Admin: 06/28/21 09:16 Dose: 2 mg Documented by: YOUSUF Medication (No Benzodiazepines) 1 each MISCELLANE DAILY [facility] Multivitamins/Vitamin C (Multivitamin Tablet) 1 tab PO DAILY [facility] Last Admin: 06/28/21 08:03 Dose: 1 tab Documented by: YOUSUF Non-Formulary Medication (Ramelteon) 1 tab PO BEDTIME [facility] Omeprazole (Omeprazole 20 Mg Capsule.Dr) 20 mg PO BID@0630,1630 [facility] Last Admin: 06/28/21 05:52 Dose: 20 mg Documented by: ODRISJonh Ondansetron HCl (Ondansetron Hcl 4 Mg/2 Ml Vial) 4 mg IVPUSH Q8H PRN PRN Reason: Nausea and Vomiting Last Admin: 06/26/21 20:59 Dose: 4 mg Documented by: RUBENS Pharmacy Consult (Consult Rx Perform Med Rec) 1 each MISCELLANE ONCE PRN PRN Reason: Consult order Prednisone (Prednisone 20 Mg Tablet) 40 mg PO DAILY [facility] Last Admin: 06/28/21 09:54 Dose: 40 mg Documented by: YOUSUF Sodium Chloride (0.9 % Sodium Chloride Flush 3 Ml Syringe) 3 ml IVFLUSH QSHIFT [facility] Last Admin: 06/28/21 08:10 Dose: Not Given Documented by: YOUSUF Non-Admin Reason: No Access Tamsulosin HCl (Tamsulosin Hcl 0.4 Mg Capsule) 0.4 mg PO DAILY@1700 [facility] Last Admin: 06/27/21 16:29 Dose: 0.4 mg Documented by: COTEMA Thiamine HCl (Thiamine Hcl 100 Mg Tablet) 100 mg PO DAILY [facility] Last Admin: 06/28/21 08:03 Dose: 100 mg Documented by: YOUSUF Labs CBC & Chem 7: 06/28/21 05:34 06/28/21 05:34 Labs: Laboratory Results - last 24 hr 06/27/21 06/27/21 06/28/21 15:53 19:59 05:34 MCV 93.7 MCH 31.7 MCHC 33.9 RDW 14.0 Plt Count 278 MPV 8.4 L Absolute Nucleated RBC 0.000 Nucleated RBC % (auto) 0.0 Anion Gap Estim Creat Clear Calc Estimated GFR POC Glucose 192 H 169 H Fasting Glucose Calcium 06/28/21 06/28/21 05:34 07:30 MCV MCH MCHC RDW Plt Count MPV Absolute Nucleated RBC Nucleated RBC % (auto) Anion Gap 13 Estim Creat Clear Calc 87.8 Estimated GFR > 60 POC Glucose 167 H Fasting Glucose 177 H Calcium 8.8 Microbiology Microbiology Results: Microbiology 06/26/21 14:56 Stool Culture - Preliminary Stool Culture in progress. 06/22/21 20:54 Blood Culture - Final Blood - Venous No growth after 5 days. Assessment and Plan (1) Aspiration pneumonia: Status: Acute (2) Hyponatremia: Status: Acute (3) Alcohol withdrawal: Status: Acute Plan 65-year-old male with past medical history of COPD, heart failure with preserved ejection fraction, severe alcohol abuse who presented to the hospital after drinking for the past 1 week as well as complaining of shortness of breath and diarrhea aspiration Pneumonia continue po augmentin will add prednisone heartburn/odynophagia gi appreciated, continue ppi diarrhea cdif negative, imodium fluctuating BPs likely autonomic dysfunction due to alcohol alcohol dependence with withdrawal Continue phenobarb protocol thiamine and folic acid supplement hyponatremia Sodium improved to 134 lactic acidosis secondary to dehydration not due to severe sepsis history of heart failure with preserved ejection fraction no evidence of volume overload negative BNP continue to monitor COPD refusing his home inhalers, DuoNeb p.r.n. DM insulin DVT ppx lovenox Quality Stroke Does the patient have a stroke diagnosis?: No VTE Prior VTE?: No VTE Risk Level:: Medical - moderate - high VTE Device Contraindication: Treatment Not Indicated VTE Drug Contraindication: N/A - Med Ordered
[2021-06-28 11:45] LABS: Glucose, Whole Blood 163 mg/dL (60-115)
[2021-06-28] MEDS: Albuterol Sulfate (0.083%) 2.5 MG/3 ML VIAL.NEB INHALE (12:32)
[2021-06-28 16:35] LABS: Glucose, Whole Blood 466 mg/dL (60-115)
[2021-06-28 18:35] LABS: Glucose, Whole Blood 464 mg/dL (60-115)
[2021-06-28 19:57] LABS: Glucose, Whole Blood 486 mg/dL (60-115)
--- NOTE | 2021-06-28 20:02 | PC.NURSE ---
8pm blood sugar 486. notified no extra insulin at this time just lantus 30 units and 10 units of lispro per sliding scale.
[2021-06-28] MEDS: Aspirin Enteric Coated 81 MG TABLET.DR PO (20:05)
[2021-06-28] MEDS: Atorvastatin Calcium 10 MG TABLET PO (20:05)
[2021-06-28] MEDS: Insulin Glargine,Hum.rec.anlog 100 UNIT/ML 10 ML VIAL 30 UNIT SUBCUT (20:05)
[2021-06-28 22:15] LABS: Glucose, Whole Blood 316 mg/dL (60-115)
[2021-06-29] MEDS: Loperamide HCl 2 MG CAPSULE PO ×2 (00:37→08:06)
[2021-06-29 03:51] VITALS: BP 116/54; PULSE 78; RESP 17; TEMP 36.4; O2SAT 93
[2021-06-29] MEDS: Omeprazole 20 MG CAPSULE.DR PO ×2 (05:47→16:38)
[2021-06-29 07:17] VITALS: BP 121/68; PULSE 86; RESP 18; TEMP 36; O2SAT 94
[2021-06-29 07:46] LABS: Glucose, Whole Blood 146 mg/dL (60-115)
[2021-06-29] MEDS: Multivitamin TABLET 1 TAB PO (08:06)
[2021-06-29] MEDS: guaiFENesin 200 MG/10 ML 10 ML LIQUID PO ×4 (08:06→21:18)
[2021-06-29] MEDS: Folic Acid 1 MG TABLET PO (08:06)
[2021-06-29] MEDS: busPIRone HCl 5 MG TABLET PO ×2 (08:06→21:17)
[2021-06-29] MEDS: Thiamine HCL 100 MG TABLET PO (08:06)
[2021-06-29] MEDS: predniSONE 20 MG TABLET 40 MG PO (08:06)
[2021-06-29] MEDS: Magnesium Hydrox/Alum Hydrox 30 ML ORAL.SUSP PO ×3 (08:06→16:54)
[2021-06-29] MEDS: Famotidine 20 MG TABLET 40 MG PO ×2 (08:07→21:17)
[2021-06-29] MEDS: Gabapentin 300 MG CAPSULE 600 MG PO ×3 (08:07→21:17)
[2021-06-29] MEDS: lisinopriL 10 MG TABLET PO (08:07)
[2021-06-29] MEDS: Insulin Lispro 100 UNIT/ML 3 ML VIAL 10 UNIT SUBCUT ×3 (08:07→16:37)
[2021-06-29] MEDS: Ondansetron ODT 4 MG TAB.RAPDIS TRANSLINGU ×2 (08:11→16:54)
--- NOTE | 2021-06-29 09:23 | HO.PM.IMPN ---
Subjective Subjective Date of Service: 06/29/21 Interval History: cc: sob interval history: n/v/d Cardiovascular Cardiovascular: Reports no additional cardiovascular complaints Respiratory Respiratory: Reports no additional respiratory complaints Physical Exam Vital Signs: Vital Signs: Last Vital Signs Temp 96.8 F 06/29/21 07:17 Pulse 86 06/29/21 07:17 Resp 18 06/29/21 07:17 BP 121/68 06/29/21 07:17 Pulse Ox 94 06/29/21 07:17 BMI result Body Mass Index 33.4 General: AO X 3, no acute distress Resp:? diminished bilateral, no accessory muscles used CVS: S1,S2,RRR GI: soft, non tender, non distended Neuro:? motor grossly intact, alert Psych: appropriate affect, appropriate insight? Objective Data Active Medications Acetaminophen (Acetaminophen 325 Mg Tablet) 650 mg PO Q6H PRN PRN Reason: Pain, Mild (Pain Scale 1-3) Last Admin: 06/26/21 08:06 Dose: 650 mg Documented by: COTEMA Al Hydroxide/Mg Hydroxide (Magnesium Hydrox/Alum Hydrox 30 Ml Oral.Susp) 30 ml PO Q4H PRN PRN Reason: Chest Pain Last Admin: 06/29/21 08:06 Dose: 30 ml Documented by: SIRISHAENOLISA Albuterol Sulfate (Albuterol Sulfate 90 Mcg 8 Gm Inhaler) 2 puff INHALE QID PRN PRN Reason: Wheezing Albuterol Sulfate (Albuterol Sulfate (0.083%) 2.5 Mg/3 Ml Vial.Neb) 2.5 mg INHALE QID PRN PRN Reason: Wheezing Last Admin: 06/28/21 12:32 Dose: 2.5 mg Documented by: MCKENZIE Amoxicillin/Clavulanate Potassium (Amoxicillin/Potassium Clav 875 Mg Tablet) 875 mg PO Q12H [facility] Last Admin: 06/28/21 23:32 Dose: 875 mg Documented by: ZANDRA Aspirin (Aspirin Enteric Coated 81 Mg Tablet.) 81 mg PO BEDTIME [facility] Last Admin: 06/28/21 20:05 Dose: 81 mg Documented by: ZANDRA Atorvastatin Calcium (Atorvastatin Calcium 10 Mg Tablet) 10 mg PO BEDTIME [facility] Last Admin: 06/28/21 20:05 Dose: 10 mg Documented by: HO.ODRISM Buspirone HCl (Buspirone Hcl 5 Mg Tablet) 5 mg PO BID [facility] Last Admin: 06/29/21 08:06 Dose: 5 mg Documented by: YOUSUF Enoxaparin Sodium (Enoxaparin Sodium 40 Mg/0.4 Ml Syringe) 40 mg SUBCUT Q24H [facility] Last Admin: 06/29/21 00:18 Dose: Not Given Documented by: ODRISM Non-Admin Reason: Patient Refused Famotidine (Famotidine 20 Mg Tablet) 40 mg PO BID [facility] Last Admin: 06/29/21 08:07 Dose: 40 mg Documented by: YOUSUF Folic Acid (Folic Acid 1 Mg Tablet) 1 mg PO DAILY [facility] Last Admin: 06/29/21 08:06 Dose: 1 mg Documented by: YOUSUF Gabapentin (Gabapentin 300 Mg Capsule) 600 mg PO TID [facility] Last Admin: 06/29/21 08:07 Dose: 600 mg Documented by: YOUSUF Guaifenesin (Guaifenesin 200 Mg/10 Ml 10 Ml Liquid) 10 ml PO Q4H PRN PRN Reason: cough Last Admin: 06/29/21 08:06 Dose: 10 ml Documented by: YOUSUF Hydroxyzine HCl (Hydroxyzine Hcl 50 Mg Tablet) 50 mg PO Q8H PRN PRN Reason: Anxiety Last Admin: 06/27/21 16:29 Dose: 50 mg Documented by: COTEMA Insulin Glargine (Insulin Glargine,Hum.Rec.Anlog 100 Unit/Ml 10 Ml Vial) 30 unit SUBCUT BEDTIME [facility] Last Admin: 06/28/21 20:05 Dose: 30 unit Documented by: ZANDRA Insulin Human Lispro (Insulin Lispro 100 Unit/Ml 3 Ml Vial) 10 unit SUBCUT TIDAC [facility] Last Admin: 06/29/21 08:07 Dose: 10 unit Documented by: YOUSUF Insulin Human Lispro (Insulin Lispro 100 Unit/Ml 3 Ml Vial) 0 unit SUBCUT QIDACHS [facility]; Protocol Last Admin: 06/29/21 08:17 Dose: Not Given Documented by: YOUSUF Non-Admin Reason: No Insulin Coverage Lisinopril (Lisinopril 10 Mg Tablet) 10 mg PO DAILY [facility]; Protocol Last Admin: 06/29/21 08:07 Dose: 10 mg Documented by: YOUSUF Loperamide HCl (Loperamide Hcl 2 Mg Capsule) 4 mg PO Q4H PRN PRN Reason: Diarrhea Medication (No Benzodiazepines) 1 each MISCELLANE DAILY [facility] Multivitamins/Vitamin C (Multivitamin Tablet) 1 tab PO DAILY [facility] Last Admin: 06/29/21 08:06 Dose: 1 tab Documented by: YOUSUF Non-Formulary Medication (Ramelteon) 1 tab PO BEDTIME [facility] Omeprazole (Omeprazole 20 Mg Capsule.Dr) 20 mg PO BID@0630,1630 [facility] Last Admin: 06/29/21 05:47 Dose: 20 mg Documented by: ODRISM Ondansetron HCl (Ondansetron Odt 4 Mg Tab.Rapdis) 4 mg TRANSLINGU Q8H PRN PRN Reason: nausea Last Admin: 06/29/21 08:11 Dose: 4 mg Documented by: YOUSUF Pharmacy Consult (Consult Rx Perform Med Rec) 1 each MISCELLANE ONCE PRN PRN Reason: Consult order Prednisone (Prednisone 20 Mg Tablet) 40 mg PO DAILY [facility] Last Admin: 06/29/21 08:06 Dose: 40 mg Documented by: YOUSUF Sodium Chloride (0.9 % Sodium Chloride Flush 3 Ml Syringe) 3 ml IVFLUSH QSHIFT [facility] Last Admin: 06/29/21 08:07 Dose: Not Given Documented by: YOUSUF Non-Admin Reason: No Access Tamsulosin HCl (Tamsulosin Hcl 0.4 Mg Capsule) 0.4 mg PO DAILY@1700 [facility] Last Admin: 06/27/21 16:29 Dose: 0.4 mg Documented by: COTEMA Thiamine HCl (Thiamine Hcl 100 Mg Tablet) 100 mg PO DAILY [facility] Last Admin: 06/29/21 08:06 Dose: 100 mg Documented by: YOUSUF Labs CBC & Chem 7: 06/28/21 05:34 06/28/21 05:34 Labs: Laboratory Results - last 24 hr 06/28/21 06/28/21 06/28/21 11:41 16:16 18:31 POC Glucose 163 H 466 H* 464 H* 06/28/21 06/28/21 06/29/21 19:45 22:11 07:15 POC Glucose 486 H* 316 H 146 H Microbiology Microbiology Results: Microbiology 06/26/21 14:56 Stool Culture - Preliminary Stool Culture in progress. Assessment and Plan (1) Aspiration pneumonia: Status: Acute (2) Hyponatremia: Status: Acute (3) Alcohol withdrawal: Status: Acute Plan 65-year-old male with past medical history of COPD, heart failure with preserved ejection fraction, severe alcohol abuse who presented to the hospital after drinking for the past 1 week as well as complaining of shortness of breath and diarrhea aspiration Pneumonia continue po augmentin prednisone some improvement heartburn/odynophagia gi appreciated, continue ppi diarrhea cdif negative, imodium - increase to 4mg fluctuating BPs likely autonomic dysfunction due to alcohol alcohol dependence with withdrawal Continue phenobarb protocol thiamine and folic acid supplement hyponatremia Sodium improved to 134 lactic acidosis secondary to dehydration not due to severe sepsis history of heart failure with preserved ejection fraction no evidence of volume overload negative BNP continue to monitor COPD refusing his home inhalers, DuoNeb p.r.n. DM insulin DVT ppx lovenox Quality Stroke Does the patient have a stroke diagnosis?: No VTE Prior VTE?: No VTE Risk Level:: Medical - moderate - high VTE Device Contraindication: Treatment Not Indicated VTE Drug Contraindication: N/A - Med Ordered
[2021-06-29 11:26] VITALS: BP 100/46; PULSE 77; RESP 18; TEMP 36.7; O2SAT 96
[2021-06-29 11:52] LABS: Glucose, Whole Blood 308 mg/dL (60-115)
[2021-06-29] MEDS: Loperamide HCl 2 MG CAPSULE 4 MG PO ×3 (12:09→21:17)
[2021-06-29] MEDS: Amoxicillin/Potassium Clav 875 MG TABLET PO ×2 (12:09→21:17)
[2021-06-29] MEDS: Insulin Lispro 100 UNIT/ML 3 ML VIAL SUBCUT ×4 (12:10→21:18)
[2021-06-29 16:00] VITALS: BP 110/51; PULSE 84; RESP 18; TEMP 36.3; O2SAT 93
[2021-06-29 16:31] LABS: Glucose, Whole Blood 390 mg/dL (60-115)
[2021-06-29] MEDS: Tamsulosin HCL 0.4 MG CAPSULE PO (16:38)
[2021-06-29 20:00] VITALS: BP 90/54; PULSE 82; RESP 18; TEMP 36.4; O2SAT 92
[2021-06-29 20:32] LABS: Glucose, Whole Blood 202 mg/dL (60-115)
[2021-06-29] MEDS: 0.9 % Sodium Chloride Flush 3 ML SYRINGE IVFLUSH (21:16)
[2021-06-29] MEDS: Enoxaparin Sodium 40 MG/0.4 ML SYRINGE SUBCUT (21:16)
[2021-06-29] MEDS: Insulin Glargine,Hum.rec.anlog 100 UNIT/ML 10 ML VIAL 30 UNIT SUBCUT (21:17)
[2021-06-29] MEDS: Atorvastatin Calcium 10 MG TABLET PO (21:17)
[2021-06-29] MEDS: Aspirin Enteric Coated 81 MG TABLET.DR PO (21:17)
[2021-06-29 23:57] VITALS: BP 90/66; PULSE 75; RESP 17; TEMP 36.8; O2SAT 93
[2021-06-30 04:00] VITALS: RESP 17
[2021-06-30] MEDS: Omeprazole 20 MG CAPSULE.DR PO ×2 (05:29→16:10)
[2021-06-30 07:27] VITALS: BP 107/69; PULSE 88; RESP 18; TEMP 36.1; O2SAT 96
[2021-06-30 08:08] LABS: Glucose, Whole Blood 143 mg/dL (60-115)
[2021-06-30] MEDS: Famotidine 20 MG TABLET 40 MG PO ×2 (08:10→20:23)
[2021-06-30] MEDS: Gabapentin 300 MG CAPSULE 600 MG PO ×3 (08:10→20:22)
[2021-06-30] MEDS: busPIRone HCl 5 MG TABLET PO ×2 (08:10→20:22)
[2021-06-30] MEDS: Multivitamin TABLET 1 TAB PO (08:10)
[2021-06-30] MEDS: lisinopriL 10 MG TABLET PO (08:10)
[2021-06-30] MEDS: Folic Acid 1 MG TABLET PO (08:10)
[2021-06-30] MEDS: Thiamine HCL 100 MG TABLET PO (08:10)
[2021-06-30] MEDS: predniSONE 20 MG TABLET 40 MG PO (08:11)
[2021-06-30] MEDS: Insulin Lispro 100 UNIT/ML 3 ML VIAL 10 UNIT SUBCUT ×3 (08:11→16:10)
--- NOTE | 2021-06-30 09:10 | HO.PM.IMPN ---
Subjective Subjective Date of Service: 06/30/21 Interval History: cc: sob interval history: improved diarrhea, but still active, cough Cardiovascular Cardiovascular: Reports no additional cardiovascular complaints Respiratory Respiratory: Reports no additional respiratory complaints Physical Exam Vital Signs: Vital Signs: Last Vital Signs Temp 97.0 F 06/30/21 07:27 Pulse 88 06/30/21 07:27 Resp 18 06/30/21 07:27 BP 107/69 06/30/21 07:27 Pulse Ox 96 06/30/21 07:27 BMI result Body Mass Index 33.4 General: AO X 3, no acute distress Resp:? diminished bilateral, no accessory muscles used CVS: S1,S2,RRR GI: soft, non tender, non distended Neuro:? motor grossly intact, alert Psych: appropriate affect, appropriate insight? Objective Data Active Medications Acetaminophen (Acetaminophen 325 Mg Tablet) 650 mg PO Q6H PRN PRN Reason: Pain, Mild (Pain Scale 1-3) Last Admin: 06/26/21 08:06 Dose: 650 mg Documented by: CHUCKEMA Al Hydroxide/Mg Hydroxide (Magnesium Hydrox/Alum Hydrox 30 Ml Oral.Susp) 30 ml PO Q4H PRN PRN Reason: Chest Pain Last Admin: 06/29/21 16:54 Dose: 30 ml Documented by: SIRISHAENOLISA Albuterol Sulfate (Albuterol Sulfate 90 Mcg 8 Gm Inhaler) 2 puff INHALE QID PRN PRN Reason: Wheezing Albuterol Sulfate (Albuterol Sulfate (0.083%) 2.5 Mg/3 Ml Vial.Neb) 2.5 mg INHALE QID PRN PRN Reason: Wheezing Last Admin: 06/28/21 12:32 Dose: 2.5 mg Documented by: MCKENZIE Amoxicillin/Clavulanate Potassium (Amoxicillin/Potassium Clav 875 Mg Tablet) 875 mg PO Q12H [facility] Last Admin: 06/29/21 21:17 Dose: 875 mg Documented by: GLORIA Aspirin (Aspirin Enteric Coated 81 Mg Tablet.) 81 mg PO BEDTIME [facility] Last Admin: 06/29/21 21:17 Dose: 81 mg Documented by: GLORIA Atorvastatin Calcium (Atorvastatin Calcium 10 Mg Tablet) 10 mg PO BEDTIME [facility] Last Admin: 06/29/21 21:17 Dose: 10 mg Documented by: GLORIA Buspirone HCl (Buspirone Hcl 5 Mg Tablet) 5 mg PO BID [facility] Last Admin: 06/30/21 08:10 Dose: 5 mg Documented by: FANY Enoxaparin Sodium (Enoxaparin Sodium 40 Mg/0.4 Ml Syringe) 40 mg SUBCUT Q24H [facility] Last Admin: 06/29/21 21:16 Dose: 40 mg Documented by: GLORIA Famotidine (Famotidine 20 Mg Tablet) 40 mg PO BID [facility] Last Admin: 06/30/21 08:10 Dose: 40 mg Documented by: FAYN Folic Acid (Folic Acid 1 Mg Tablet) 1 mg PO DAILY [facility] Last Admin: 06/30/21 08:10 Dose: 1 mg Documented by: FANY Gabapentin (Gabapentin 300 Mg Capsule) 600 mg PO TID [facility] Last Admin: 06/30/21 08:10 Dose: 600 mg Documented by: FANY Guaifenesin (Guaifenesin 200 Mg/10 Ml 10 Ml Liquid) 10 ml PO Q4H PRN PRN Reason: cough Last Admin: 06/29/21 21:18 Dose: 10 ml Documented by: GLORIA Hydroxyzine HCl (Hydroxyzine Hcl 50 Mg Tablet) 50 mg PO Q8H PRN PRN Reason: Anxiety Last Admin: 06/27/21 16:29 Dose: 50 mg Documented by: DERICK Insulin Glargine (Insulin Glargine,Hum.Rec.Anlog 100 Unit/Ml 10 Ml Vial) 30 unit SUBCUT BEDTIME [facility] Last Admin: 06/29/21 21:17 Dose: 30 unit Documented by: GLORIA Insulin Human Lispro (Insulin Lispro 100 Unit/Ml 3 Ml Vial) 10 unit SUBCUT TIDAC [facility] Last Admin: 06/30/21 08:11 Dose: 10 unit Documented by: FANY Insulin Human Lispro (Insulin Lispro 100 Unit/Ml 3 Ml Vial) 0 unit SUBCUT QIDACHS [facility]; Protocol Last Admin: 06/30/21 08:11 Dose: Not Given Documented by: FANY Non-Admin Reason: No Insulin Coverage Lisinopril (Lisinopril 10 Mg Tablet) 10 mg PO DAILY [facility]; Protocol Last Admin: 06/30/21 08:10 Dose: 10 mg Documented by: FANY Loperamide HCl (Loperamide Hcl 2 Mg Capsule) 4 mg PO Q4H PRN PRN Reason: Diarrhea Last Admin: 06/29/21 21:17 Dose: 4 mg Documented by: GLORIA Medication (No Benzodiazepines) 1 each MISCELLANE DAILY [facility] Multivitamins/Vitamin C (Multivitamin Tablet) 1 tab PO DAILY [facility] Last Admin: 06/30/21 08:10 Dose: 1 tab Documented by: FANY Non-Formulary Medication (Ramelteon) 1 tab PO BEDTIME [facility] Omeprazole (Omeprazole 20 Mg Capsule.Dr) 20 mg PO BID@0630,1630 [facility] Last Admin: 06/30/21 05:29 Dose: 20 mg Documented by: GLORIA Ondansetron HCl (Ondansetron Odt 4 Mg Tab.Rapdis) 4 mg TRANSLINGU Q8H PRN PRN Reason: nausea Last Admin: 06/29/21 16:54 Dose: 4 mg Documented by: YOUSUF Pharmacy Consult (Consult Rx Perform Med Rec) 1 each MISCELLANE ONCE PRN PRN Reason: Consult order Prednisone (Prednisone 20 Mg Tablet) 40 mg PO DAILY [facility] Last Admin: 06/30/21 08:11 Dose: 40 mg Documented by: FANY Sodium Chloride (0.9 % Sodium Chloride Flush 3 Ml Syringe) 3 ml IVFLUSH QSHIFT [facility] Last Admin: 06/30/21 08:14 Dose: Not Given Documented by: FANY Non-Admin Reason: No Access Tamsulosin HCl (Tamsulosin Hcl 0.4 Mg Capsule) 0.4 mg PO DAILY@1700 [facility] Last Admin: 06/29/21 16:38 Dose: 0.4 mg Documented by: YOUSUF Thiamine HCl (Thiamine Hcl 100 Mg Tablet) 100 mg PO DAILY [facility] Last Admin: 06/30/21 08:10 Dose: 100 mg Documented by: FANY Labs CBC & Chem 7: 06/28/21 05:34 06/28/21 05:34 Labs: Laboratory Results - last 24 hr 06/29/21 06/29/21 06/29/21 11:25 16:26 20:20 POC Glucose 308 H 390 H* 202 H 06/30/21 07:26 POC Glucose 143 H Microbiology Microbiology Results: Microbiology 06/26/21 14:56 Stool Culture - Final Stool Assessment and Plan (1) Aspiration pneumonia: Status: Acute (2) Hyponatremia: Status: Acute (3) Alcohol withdrawal: Status: Acute Plan 65-year-old male with past medical history of COPD, heart failure with preserved ejection fraction, severe alcohol abuse who presented to the hospital after drinking for the past 1 week as well as complaining of shortness of breath and diarrhea aspiration Pneumonia continue po augmentin prednisone some improvement heartburn/odynophagia gi appreciated, continue ppi diarrhea cdif negative, still present but improved after imodium - increase to 4mg fluctuating BPs likely autonomic dysfunction due to alcohol alcohol dependence with withdrawal Continue phenobarb protocol thiamine and folic acid supplement hyponatremia Sodium improved to 134 now refusing labs lactic acidosis secondary to dehydration not due to severe sepsis history of heart failure with preserved ejection fraction no evidence of volume overload negative BNP continue to monitor COPD refusing his home inhalers, DuoNeb p.r.n. DM insulin DVT ppx lovenox Quality Stroke Does the patient have a stroke diagnosis?: No VTE Prior VTE?: No VTE Risk Level:: Medical - moderate - high VTE Device Contraindication: Treatment Not Indicated VTE Drug Contraindication: N/A - Med Ordered
[2021-06-30] MEDS: Loperamide HCl 2 MG CAPSULE 4 MG PO ×2 (09:15→21:26)
[2021-06-30] MEDS: guaiFENesin 200 MG/10 ML 10 ML LIQUID PO ×3 (09:15→21:26)
[2021-06-30] MEDS: Magnesium Hydrox/Alum Hydrox 30 ML ORAL.SUSP PO ×2 (09:15→21:32)
[2021-06-30 11:31] VITALS: BP 107/71; PULSE 90; RESP 18; TEMP 36.3; O2SAT 92
[2021-06-30 12:05] LABS: Glucose, Whole Blood 225 mg/dL (60-115)
[2021-06-30] MEDS: Insulin Lispro 100 UNIT/ML 3 ML VIAL SUBCUT ×3 (12:10→21:26)
[2021-06-30] MEDS: Amoxicillin/Potassium Clav 875 MG TABLET PO ×2 (12:10→21:26)
[2021-06-30 15:33] VITALS: BP 129/54; PULSE 85; RESP 17; TEMP 36.4; O2SAT 95
[2021-06-30] MEDS: Tamsulosin HCL 0.4 MG CAPSULE PO (16:10)
[2021-06-30 16:50] LABS: Glucose, Whole Blood 388 mg/dL (60-115)
[2021-06-30] MEDS: Albuterol Sulfate (0.083%) 2.5 MG/3 ML VIAL.NEB INHALE (17:17)
[2021-06-30 17:18] VITALS: PULSE 89; RESP 18; O2SAT 95
[2021-06-30 19:13] VITALS: BP 101/52; PULSE 74; RESP 18; TEMP 36.4; O2SAT 91
[2021-06-30] MEDS: Atorvastatin Calcium 10 MG TABLET PO (20:22)
[2021-06-30] MEDS: Aspirin Enteric Coated 81 MG TABLET.DR PO (20:23)
[2021-06-30] MEDS: Insulin Glargine,Hum.rec.anlog 100 UNIT/ML 10 ML VIAL 30 UNIT SUBCUT (21:25)
[2021-06-30] MEDS: Enoxaparin Sodium 40 MG/0.4 ML SYRINGE SUBCUT (21:26)
[2021-07-01 03:56] VITALS: BP 106/56; PULSE 69; RESP 18; TEMP 36.5; O2SAT 94
[2021-07-01] MEDS: Omeprazole 20 MG CAPSULE.DR PO (05:29)
[2021-07-01 07:27] LABS: Glucose, Whole Blood 169 mg/dL (60-115)
[2021-07-01] MEDS: busPIRone HCl 5 MG TABLET PO (07:36)
[2021-07-01] MEDS: lisinopriL 10 MG TABLET PO (07:36)
[2021-07-01] MEDS: Folic Acid 1 MG TABLET PO (07:36)
[2021-07-01] MEDS: Thiamine HCL 100 MG TABLET PO (07:36)
[2021-07-01] MEDS: Gabapentin 300 MG CAPSULE 600 MG PO (07:37)
[2021-07-01] MEDS: Famotidine 20 MG TABLET 40 MG PO (07:37)
[2021-07-01] MEDS: predniSONE 20 MG TABLET 40 MG PO (07:37)
[2021-07-01] MEDS: Insulin Lispro 100 UNIT/ML 3 ML VIAL 10 UNIT SUBCUT ×2 (07:38→11:34)
[2021-07-01] MEDS: Multivitamin TABLET 1 TAB PO (07:38)
[2021-07-01 07:39] VITALS: BP 114/68; PULSE 82; RESP 22; TEMP 36.3; O2SAT 100
[2021-07-01] MEDS: Insulin Lispro 100 UNIT/ML 3 ML VIAL SUBCUT ×2 (07:39→11:34)
[2021-07-01] MEDS: guaiFENesin 200 MG/10 ML 10 ML LIQUID PO (07:42)
[2021-07-01] MEDS: Magnesium Hydrox/Alum Hydrox 30 ML ORAL.SUSP PO (07:43)
--- NOTE | 2021-07-01 09:00 | PM.DS ---
DS: Providers Provider Date of Service: 07/01/21 Date of admission: 06/22/21 23:07 Primary care physician: Unknown Physician Consults: 06/26/21 08:47 Consult to Gastroenterology Routine Consulting Provider: Juan A Rivers Reason for consultation: severe heartburn, odynophagia DS: Diagnosis Discharge Diagnosis (1) Aspiration pneumonia: Status: Acute (2) Hyponatremia: Status: Acute (3) Alcohol withdrawal: Status: Acute DS: Summary Hospital Course Hospital Course: Patient was admitted for aspiration pneumonia. He was treated with p.o. Augmentin for about 1 week, he was then started on prednisone which he will continue for 5 more days after discharge. He still some cough but shortness of breath significantly improved. Patient was treated for alcohol dependence with withdrawal, he was given phenobarbital protocol and symptoms resolved. Patient had some hyponatremia which improved with fluid restriction. Patient also had heartburn and was seen by Gastroenterology who recommended PPI in outpatient follow-up. Patient was having diarrhea which was negative for C diff it improved with Imodium he can continue taking as outpatient. Patient is feeling much better will be discharged home. Time Spent with Patient Time attestation: Total time spent providing and/or coordinating discharge services: Discharge coordination time: Greater than 30 minutes Quality: Stroke Does the patient have a stroke diagnosis?: No Physical Exam Vital Signs: Vital Signs: Last Vital Signs Temp 97.4 F 07/01/21 07:39 Pulse 82 07/01/21 07:39 Resp 22 H 07/01/21 07:39 BP 114/68 07/01/21 07:39 Pulse Ox 100 07/01/21 07:39 BMI result Body Mass Index 33.4 General: AO X 3, no acute distress Resp:? diminished bilateral, no accessory muscles used CVS: S1,S2,RRR GI: soft, non tender, non distended Neuro:? motor grossly intact, alert Psych: appropriate affect, appropriate insight? DS: Data Data Completed and Pending Completed studies during hospitalization [Text1]: Procedures Detoxification Services for Substance Abuse Treatment (06/01/21) Insertion of Infusion Device into Superior Vena Cava, Percutaneous Approach (06/01/21) Introduction of Remdesivir Anti-infective into Peripheral Vein, Percutaneous Approach, [employer] (06/01/21) Labs on day of discharge: Laboratory Results - last 24 hr 0206/30/21 06/30/21 09:10 09:10 11:30 WBC Cancelled RBC Cancelled Hgb Cancelled Hct Cancelled MCV Cancelled MCH Cancelled MCHC Cancelled RDW Cancelled Plt Count Cancelled MPV Cancelled Absolute Nucleated RBC Cancelled Nucleated RBC % (auto) Cancelled Sodium Cancelled Potassium Cancelled Chloride Cancelled Carbon Dioxide Cancelled Anion Gap Cancelled BUN Cancelled Creatinine Cancelled Estim Creat Clear Calc Cancelled Estimated GFR Cancelled POC Glucose 225 H Fasting Glucose Cancelled Calcium Cancelled 06/30/21 07/01/21 15:35 07:23 WBC RBC Hgb Hct MCV MCH MCHC RDW Plt Count MPV Absolute Nucleated RBC Nucleated RBC % (auto) Sodium Potassium Chloride Carbon Dioxide Anion Gap BUN Creatinine Estim Creat Clear Calc Estimated GFR POC Glucose 388 H* 169 H Fasting Glucose Calcium Discharge Plan Discharge Patient Disposition: Home, Self-Care Discharge Diagnosis: aspiration pneumonia, copd, etoh withdrawal Referrals: Physician,Unknown J [Primary Care Provider] - 1 Week Discharge Medications: New prednisone 20 mg Tablet 40 mg PO DAILY Qty: 10 0RF guaifenesin 100 mg/5 mL Liquid 200 mg PO Q4H PRN (Reason: cough) Qty: 473 0RF Continued multivitamin Tablet 1 tab PO DAILY 0RF albuterol sulfate 2.5 mg /3 mL (0.083 %) solution for nebulization 1 amp inhalation QID 0RF thiamine HCl (vitamin B1) 100 mg tablet 1 tab PO BEDTIME 0RF (DME) FreeStyle Lite Strips Strip MISCELLANEOUS QID 0RF insulin aspart U-100 [Novolog U-100 Insulin aspart] 100 unit/mL solution 15 unit subcut TIDAC 0RF simvastatin 20 mg tablet 1 tab PO BEDTIME 0RF lisinopril 10 mg tablet 1 tab PO DAILY 0RF folic acid 1 mg tablet 1 tab PO DAILY@1700 0RF albuterol sulfate 90 mcg/actuation HFA aerosol inhaler 2 puff inhalation QID PRN (Reason: Wheezing) 0RF Fish Oil 340-1,000 mg capsule 1 cap PO DAILY 0RF buspirone 5 mg tablet 5 mg PO BID 0RF aspirin 81 mg tablet,delayed release (DR/EC) 1 tab PO BEDTIME 0RF tamsulosin 0.4 mg capsule 1 cap PO DAILY@1700 0RF ramelteon 8 mg tablet 1 tab PO BEDTIME 0RF omeprazole 20 mg capsule,delayed release(DR/EC) 1 cap PO BID@0630,1630 0RF hydroxyzine HCl 50 mg Tablet 50 mg PO Q8H PRN (Reason: Anxiety) Qty: 20 0RF fluticasone propion-salmeterol [Wixela Inhub] 250-50 mcg/dose blister with device 1 puff inhalation BID 0RF famotidine 40 mg tablet 1 tab PO BID 0RF gabapentin 300 mg capsule 2 cap PO TID 0RF Lantus U-100 Insulin 100 unit/mL solution 49 unit subcut BEDTIME 0RF Discontinued celecoxib 50 mg capsule 1 cap PO BID 0RF dexamethasone [Decadron] 6 mg tablet 6 mg PO DAILY Qty: 5 0RF Discharge Orders: Discharge Order (Routine); Ordered 07/01/21 Ordered By: Ervin Donaldson Diet: advance to usual diet Activity on Discharge: As tolerated Stand Alone Forms: Patient Portal Discharge page Care Plan Goals: recovery Health Concerns: copd Plan of Treatment: predniosne, cough medicine, imodium if needed, avoid etoh Assessment: see above
[2021-07-01] MEDS: Loperamide HCl 2 MG CAPSULE 4 MG PO (09:22)
[2021-07-01 10:56] VITALS: BP 102/55; PULSE 86; RESP 20; TEMP 36.2; O2SAT 95
[2021-07-01 11:08] LABS: Glucose, Whole Blood 308 mg/dL (60-115)
[2021-07-01 11:12] LABS: Glucose, Whole Blood 256 mg/dL (60-115)
[2021-07-01] MEDS: Amoxicillin/Potassium Clav 875 MG TABLET PO (11:33)
--- NOTE | 2021-07-01 16:34 | MHC.CM.PN ---
POST D/C NOTE: PT MEDICALLY CLEARED FOR D/C HOME SELF-CARE, CM SET UP TRANSPORT AT 1:30PM VIA C SHUTTLE
== END 2021-07-01 13:33 | disposition home or self-care (01) | DRG 178 ==
LOC: HO.ED 23:10 → HO.EDOVER 06-23 00:06 → HO.S3 06-24 08:10
PROVIDERS: Hospitalist; Nurse Practitioner Family; Student in an Organized Health Care Education/Training Program; Admitting Provider Internal Medicine; Emergency Provider Emergency Medicine; Visit Provider Internal Medicine
DX: J69.0 Pneumonitis due to inhalation of food and vomit (principal); E87.1 Hypo-osmolality and hyponatremia; I50.32 Chronic diastolic (congestive) heart failure; F10.239 Alcohol dependence with withdrawal, unspecified; E87.2 Acidosis; I11.0 Hypertensive heart disease with heart failure; J44.9 Chronic obstructive pulmonary disease, unspecified; E86.0 Dehydration; K21.00 Gastro-esophageal reflux disease with esophagitis, without bleeding; E10.9 Type 1 diabetes mellitus without complications; R13.10 Dysphagia, unspecified; Y90.2 Blood alcohol level of 40-59 mg/100 ml; G31.2 Degeneration of nervous system due to alcohol; Z20.822 Contact with and (suspected) exposure to COVID-19; Z79.4 Long term (current) use of insulin; Z79.82 Long term (current) use of aspirin; Z79.899 Other long term (current) drug therapy
CPT/HCPCS: 0241U; 36415; 71045; 71250; 74176; 80048; 80076; 80307; 81003; 82077; 82140; 82550; 82947; 83605; 83615; 83690; 83735; 83880; 84484; 85025; 85027; 85610; 85730; 87040; 87045; 87046; 87077; 87493; 93005; 94640; 96361; 96372; 96374; 96375; 99285; 99291; J0696; J1170; J1650; J2405; J2560; J3475

== ENCOUNTER 2021-07-11 09:55 | Inpatient (IN) | payer OTHER, SELFPAY ==
[2021-07-11] VITALS (11 sets, daily range): BP systolic 102–200; BP diastolic 49–100; PULSE 17–110; RESP 14–22; TEMP 36.5–36.7; O2SAT 94–100; BMI 35.0
--- NOTE | ~2021-07-11 | CT_ITS ---
EXAMINATION: CT ABDOMEN AND PELVIS WITHOUT CONTRAST CLINICAL INFORMATION: Abdominal pain. Fall. COMPARISON: Previous CT of the abdomen and pelvis 06/22/2021 TECHNIQUE: Multidetector volumetric imaging was performed from the superior aspect of the liver through the pubic symphysis. Sagittal and coronal reformatted images were obtained on the technologist's workstation. This CT examination was performed using dose optimization techniques as appropriate, variously including the following: *Automated exposure control *Adjustment of mA and/or kV according to patient size (this includes techniques or standardized protocols for targeted exams where dose is matched to indication/reason for exam; i.e. extremities or head) *Use of iterative reconstruction technique DLP: 791 mGy-cm FINDINGS: LUNG BASES: There is bronchial wall thickening and peribronchial nodular opacities seen in the right middle and right lower lobes and posterior costophrenic sulcus of the left lower lobe. Appearance is suggestive of bronchopneumonia. This appears improved from June 2021 exam. LIVER, GALLBLADDER, AND BILIARY TREE: The liver is normal in size, shape, and attenuation. No focal hepatic lesion or biliary ductal dilatation is present. The gallbladder is unremarkable with no evidence of radiopaque gallstones, gallbladder wall thickening, or obvious pericholecystic inflammatory changes. PANCREAS: Unremarkable. SPLEEN: Unremarkable. ADRENAL GLANDS: Unremarkable. KIDNEYS AND URETERS: The kidneys are normal in size, shape, and attenuation. No hydronephrosis, hydroureter, or calculi seen. There is a small left renal cyst that is stable. No imaging follow-up needed. BLADDER: Unremarkable. GASTROINTESTINAL TRACT: There is diverticulosis of the colon. No evidence of diverticulitis is seen. The small and large bowel are otherwise unremarkable. The appendix is unremarkable. ABDOMINAL WALL: No significant hernia is appreciated. LYMPH NODES: Normal. VASCULAR: Unremarkable. PELVIC VISCERA: Unremarkable. OSSEOUS STRUCTURES: There is a right posterior 11th rib fracture that is new from June 2021 CT scan. There is bilateral femoral head AVN. There are degenerative changes of the spine. CT/CT abdomen pelvis wo con IMPRESSION: Bibasilar bronchopneumonia, right greater than left. This is improved from June 2021 exam. Acute right posterior 11th rib fracture. This is new in the interval from June 2021 exam. Diverticulosis of the colon. Small left renal cyst. Bilateral femoral head AVN. Fleischner guidelines were followed.
--- NOTE | ~2021-07-11 | CT_ITS ---
EXAMINATION: CT HEAD WITHOUT CONTRAST CLINICAL INFORMATION: Fall COMPARISON: Previous head CT scans most recent May 2021 TECHNIQUE: Contiguous axial imaging was performed from the skull base to vertex without intravenous administration of contrast. This CT examination was performed using dose optimization techniques as appropriate, variously including the following: *Automated exposure control *Adjustment of mA and/or kV according to patient size (this includes techniques or standardized protocols for targeted exams where dose is matched to indication/reason for exam; i.e. extremities or head) *Use of iterative reconstruction technique DLP: 1403 mGy-cm FINDINGS: There is no evidence of an extra-axial collection. There is no evidence of intra-axial or extra-axial hemorrhage. Ventricles and extra-axial CSF spaces are prominent suggestive of generalized atrophy. There is nonspecific periventricular white matter disease. No mass, mass effect or infarct is seen. There is a small extra-axial calcification adjacent to the left posterior falx that is stable. Review of bone windows is normal. No skull fracture is seen. Visualized paranasal sinuses, mastoid air cells and middle ears are clear. CT/CT head/brain wo con IMPRESSION: No acute intracranial findings. Generalized atrophy and mild nonspecific periventricular white matter disease..
--- NOTE | ~2021-07-11 | XR_ITS ---
EXAMINATION: XR CHEST CLINICAL INFORMATION: Shortness of breath COMPARISON: Previous chest x-ray June 2021 TECHNIQUE: Frontal view of the chest was obtained. FINDINGS: The cardiac and mediastinal contours are normal. There are increased markings at the right lung base questionable for small infiltrate. This is similar to most recent chest x-ray from June 2021. The lungs are otherwise clear. There is no pleural effusion or pneumothorax. There is a right shoulder replacement. XR/XR chest 1V IMPRESSION: Small infiltrate at the right lung base similar to June 2021 exam.
--- NOTE | ~2021-07-11 | CT_ITS ---
EXAMINATION: CT CERVICAL SPINE WITHOUT CONTRAST CLINICAL INFORMATION: Fall COMPARISON: Previous CT scans most recent May 2021 TECHNIQUE: Axial images through the cervical spine without contrast. Sagittal and coronal reconstructions on the technologist workstation were performed. This CT examination was performed using dose optimization techniques as appropriate, variously including the following: *Automated exposure control *Adjustment of mA and/or kV according to patient size (this includes techniques or standardized protocols for targeted exams where dose is matched to indication/reason for exam; i.e. extremities or head) *Use of iterative reconstruction technique DLP: 936 mGy-cm FINDINGS: The head is slightly tilted to the right and there is mild curvature of the cervical spine to the left. Bone alignment is otherwise normal. No fracture or dislocation is seen. There is mild degenerative spondylosis at C4-C5 and C5-C6. There is bilateral facet arthritis at C4-C5 and C5-C6, right side greater than left. Disc spaces are normal. Prevertebral soft tissues are normal. There is bilateral carotid calcification. Visualized lung bases are clear. CT/CT cervical spine wo con IMPRESSION: Mild degenerative changes. No fracture or dislocation. Fleischner guidelines were followed.
--- NOTE | 2021-07-11 10:05 | ECG_ITS ---
Test Reason : SOB Blood Pressure : / mmHG Vent. Rate : 137 BPM Atrial Rate : 100 BPM P-R Int : 228 ms QRS Dur : 074 ms QT Int : 342 ms P-R-T Axes : 081 000 085 degrees QTc Int : 516 ms SInus tachycardia Normal ECG When compared with ECG of 26-JUN-2021 04:52, No significant changes seen Referred By: Alexus Munoz Electronically Signed By:Gabino Carter
--- NOTE | 2021-07-11 10:33 | ED_ITS ---
HPI - Fall General Chief Complaint: ETOH/Substance Use <Alexus Munoz OTIS - Last Filed: 07/11/21 16:55> Stated Complaint: ETOH <Alexus Munoz OTIS - Last Filed: 07/11/21 16:55> Time Seen by Provider: 07/11/21 10:28 <Alexus MunozOTIS - Last Filed: 07/11/21 16:55> Source: patient and EMS <Alexus Munoz OTIS - Last Filed: 07/11/21 16:55> Mode of arrival: EMS <Alexus Munoz OTIS - Last Filed: 07/11/21 16:55> Limitations: no limitations <Alexus Munoz OTIS - Last Filed: 07/11/21 16:55> History of Present Illness HPI Narrative: Patient is a 65-year-old male with a past medical history of ETOH abuse, rhabdomyolysis, diverticulitis, diastolic dysfunction, obesity, nonrheumatic aortic valve stenosis, COPD, diabetes, hyperlipidemia, hypertension. Patient is a vague historian. He was found on the floor of his apartment alert but unable to get up. He reports requesting his friend go out for more vodka but apparently the friend contacted 911 instead. Patient reports that he has been on the floor since yesterday. Per EMS patient was covered in feces, apartment was covered in feces, patient able to get himself to his knees but required full assistance for transfer to the stretcher. He reports feeling short of breath and having difficulty breathing, reports using oxygen at night for sleep. Sta beena his last alcohol consumption was yesterday night. He reports a recent period where he stayed from alcohol for 3 weeks, but states that he started drinking again about 1 week ago. <Alexus MunozOTIS - Last Filed: 07/11/21 16:55> Related Data Home Medications: Home Medications Medication Instructions Recorded Confirmed albuterol sulfate 1 amp INHALATION QID 12/29/20 07/11/21 albuterol sulfate 90 mcg/actuation 2 puff INHALATION QID PRN 12/29/20 07/11/21 aerosol inhaler blood sugar diagnostic (FreeStyle 12/29/20 02/04/21 Lite Strips) folic acid 1 mg tablet 1 tab PO DAILY@1700 12/29/20 07/11/21 insulin aspart U-100 100 unit/mL 15 unit SUBCUT TIDAC 12/29/20 07/11/21 subcutaneous solution (Novolog U-100 Insulin aspart) lisinopril 10 mg tablet 1 tab PO DAILY 12/29/20 07/11/21 simvastatin 20 mg tablet 1 tab PO BEDTIME 12/29/20 07/11/21 thiamine HCl (vitamin B1) 100 mg 1 tab PO BEDTIME 12/29/20 07/11/21 tablet aspirin 81 mg tablet,delayed 1 tab PO BEDTIME 02/04/21 07/11/21 release buspirone 5 mg tablet 5 mg PO BID 02/04/21 07/11/21 ramelteon 8 mg tablet 1 tab PO BEDTIME 05/12/21 07/11/21 tamsulosin 0.4 mg capsule 1 cap PO DAILY@1700 05/12/21 07/11/21 omeprazole 20 mg capsule,delayed 1 cap PO BID@0630,1630 06/01/21 07/11/21 release fluticasone 250 mcg-salmeterol 50 1 puff INHALATION BID 06/22/21 07/11/21 mcg/dose blistr powdr for inhalation (Wixela Inhub) gabapentin 300 mg capsule 2 cap PO TID 06/24/21 07/11/21 insulin glargine 100 unit/mL 45 unit SUBCUT BEDTIME 06/24/21 07/11/21 subcutaneous solution (Lantus U-100 Insulin) Previous Rx's Medication Instructions Recorded hydroxyzine HCl 50 mg tablet 50 mg PO Q8H PRN #20 tab 06/05/21 guaifenesin 100 mg/5 mL oral liquid 200 mg (10 mL) PO Q4H PRN #473 ml 07/01/21 <Alexus Munoz CNP - Last Filed: 07/11/21 16:55> Allergies/Adverse Reactions: Allergies Allergy/AdvReac Type Severity Reaction Status Date / Time ENVIRONMENTAL Allergy Mild SNEEZING, Uncoded 07/11/21 10:06 WATERY EYES <Alexus Munoz CNP - Last Filed: 07/11/21 16:55> FORMERLY [facility] Past Medical History Medical History: Medical History LAUREN (acute kidney injury) Alcohol abuse COPD (chronic obstructive pulmonary disease) Diabetes mellitus type 1 Diastolic dysfunction Diastolic heart failure Fall HLD (hyperlipidemia) Hypertension Nonrheumatic aortic (valve) stenosis Obesity <Alexus Munoz CNP - Last Filed: 07/11/21 16:55> Family History Family History: Family History Father Diabetes Mother Diabetes <Alexus Munoz CNP - Last Filed: 07/11/21 16:55> Social History Social History: Social History Household Members: None Housing: Apartment Do you presently have visiting nurse or other home services: No Alcohol intake: current Alcohol intake frequency: 3 or more drinks per day Al cohol type: hard liquor Patient Tobacco Use Status: Former Tobacco user Tobacco use type: Cigar e-Cigarette/Vaping Use: Currently Using Second Hand Smoke Exposure: No Use of substances other than those prescribed or required for medical reasons: No Advance Directives: Yes Advance Directives on File: Yes Advance Directives Date on File: 10/11/20 service: No Current occupational status: unemployed and disabled <Alexus Munoz CNP - Last Filed: 07/11/21 16:55> Physical Exam Vital Signs: Vital Signs: Last Vital Signs Temp 98.0 F 07/11/21 18:54 Pulse 100 07/11/21 18:54 Resp 14 07/11/21 18:54 BP 116/73 07/11/21 18:54 Pulse Ox 96 07/11/21 18:54 BMI result Body Mass Index 35.0 <Alexus Munoz CNP - Last Filed: 07/11/21 16:55> Vital Signs: Last Vital Signs Temp 98.0 F 07/11/21 18:54 Pulse 100 07/11/21 18:54 Resp 14 07/11/21 18:54 BP 116/73 07/11/21 18:54 Pulse Ox 96 07/11/21 18:54 BMI result Body Mass Index 35.0 <DARLINE Batres - Last Filed: 07/11/21 19:24> Course Course Course Narrative: Patient is a 65-year-old male presenting for evaluation after being found on the floor, reporting shortness of breath. On arrival patient noted to be covered in feces, requiring assistance for bathing. Review of his chart i ndicates multiple admissions in the past for EtOH and encephalopathy with alcohol withdrawal. He was last evaluated at this hospital 06/22/2021. Given EtOH consumption and possibility of fall, will obtain CT of the head and neck to exclude ICH, SAH, fracture dislocation. Considering right abdominal tenderness on palpation will obtain CT of the abdomen and pelvis as well. CBC to evaluate for leukocytosis/ anemia, CMP and lipase to evaluate for abnormal electrolytes /abnormal renal function/ abnormal hepatic/biliary function, EKG and troponin to evaluate for ischemia/ACS. Chest x-ray to evaluate for consolidation/ infiltrate/ mass/ pulmonary congestion. With history of COPD will obtain VBG. Urinalysis to evaluate for infection and drug of abuse screen. Suspect that the scattered areas of blanchable erythema to the right side may be secondary to dependent pressure, the blanchable erythematous area to the right lateral abdomen may be a cellulitis or even possible burn. Ordered IV Zosyn for coverage of possible bacterial infection, blood cultures and lactic acid to be obtained. Given reported prolonged down time will obtain CPK to evaluate for rhabdomyolysis, normal saline 1 L IV fluid bolus ordered. <Alexus Munoz CNP - Last Filed: 07/11/21 16:55> Reevaluation(s) Reevaluation #1: Difficulty obtaining IV access, patient tremulous. Ativan 2 mg IM ord ered. Dr. Vega at bedside to facilitate ultrasound-guided access. Reporting nausea, SL zofran ordered. <Alexus Munoz CNP - Last Filed: 07/11/21 16:55> Time: 11:43 <Alexus Munoz CNP - Last Filed: 07/11/21 16:55> Reevaluation #2: Continue to have difficulty obtaining IV access, patient moving during attempts to insert ultrasound-guided IVs. Multipe RN's, this provider attempted, patient pulls extremity away. Dr. Vega at bedside attempting to insert E.J. Yelling out at staff. Angio placed to foot as only point of access, will administer IV fluids. Will re-attempt access once he has received IV hydration. <Alexus MunozOTIS - Last Filed: 07/11/21 16:55> Time: 12:55 <Alexus MunozOTIS - Last Filed: 07/11/21 16:55> Reevaluation #3: Lactic acid is normal 1.5. Troponin 22.6, EKG with alot of artifact, no acute concerns for ischemia, will obtain repeat delta trop. CBC reveals mild leukocytosis of 12.3, mild anemia was hemoglobin 12.7 and hematocrit 35.1 consistent with prior levels. COVID-19 testing is negative. Alcohol level less than 10 <Alexus MunozOTIS - Last Filed: 07/11/21 16:55> Time: 13:45 <Alexus Munoz [employer] - Last Filed: 07/11/21 16:55> Additional Reevaluation(s): 1445: Phlebotomy called to assist with blood work, unable to obtain chemistry. Ordered additional 1 L normal saline IV fluids for hydration. Patient is requesting something to eat at this time, CT of the abdomen is pending. 1530: Chest x-ray reveals a small infiltrate at the right lung base similar to prior June 2021 exam. 1655: CT of the head is unremarkable for acute intracranial pathology generalized atrophy and white matter disease CT of the C-spine reveals mild degenerative changes no fracture dislocation CT of the abdomen reveals bibasilar bronchopneumonia right greater than left improved from June 2021 exam. There is an acute right posterior 11th rib fracture, patient made aware of this finding. Diverticulosis with no evidence of diverticulitis. Patient eating and drinking tolerating well, no nausea or vomiting or further complaints of abdominal pain. 1612: Multiple relief cook's have tried to obtain patient's labs, CMP, CPK, l ipase, magnesium, venous blood gas still pending at this time. 1645: Patient signed out to Emily GREGORIO, patient's remaining labs were able to be obtained and are pending at this time. Should they result as normal patient will require evaluation by physical therapy and case management for safe disposition. <Alexus MunozOTIS - Last Filed: 07/11/21 16:55> 1445: Phlebotomy called to assist with blood work, unable to obtain chemistry. Ordered additional 1 L normal saline IV fluids for hydration. Patient is requesting something to eat at this time, CT of the abdomen is pending. 1530: Chest x-ray reveals a small infiltrate at the right lung base similar to prior June 2021 exam. 1655: CT of the head is unremarkable for acute intracranial pathology generalized atrophy and white matter disease CT of the C-spine reveals mild degenerative changes no fracture dislocation CT of the abdomen reveals bibasilar bronchopneumonia right greater than left improved from June 2021 exam. There is an acute right posterior 11th rib fracture, patient made aware of this finding. Diverticulosis with no evidence of diverticulitis. Patient eating and drinking tolerating well, no nausea or vomiting or further complaints of abdominal pain. 1612: Multiple relief cook's have tried to obtain patient's labs, CMP, CPK, lipase, magnesium, venous blood gas still pending at this time. 1645: Patient signed out to Emily GREGORIO, patient's remaining labs were able to be obtained and are pending at this time. Should they result as normal patient will require evaluation by physical therapy and case management for safe disposition. 545 pm - patient's sodium returned at 01:20. Upon review of his previous admissions he was admitted for hyponatremia with sodium 117 back in May 2021, he had a normal osmolality at that time and was treated with fluid restriction. By the time patient's blood work had returned he had already received 2 L of fluid. There is concern his sodium may have rise too quickly. Stat repeat sodium level is pending. Nephrology has been made aware. No further IV fluids are infusing. He is sleeping comfortably, although arouses easily. Exam nonfocal. His serum osmolality is 263. Urine studies are pending. Straight cath ordered. Will follow up with Nephrology pending repeat sodium. 7pm - repeat sodium after 2 L of fluid remains 120. Dr. Tucker from nephrology recommending normal saline 80 cc an hour, adding urea packets 30 g b.i.d., checking sodium levels every few hours with goal of sodium 125-126 overnight. Will text the beam carrier hauler pusher for admission. <DARLINE Batres - Last Filed: 07/11/21 19:24> Consultations Consultation #1: Nephrology - Dr. Tucker <DARLINE Batres - Last Filed: 07/11/21 19:24> MDM - Fall Medical Records Attestation: I reviewed the patient's medical records. <Alexus Munoz CNP - Last Filed: 07/11/21 16:55> Lab Data Attestation: I reviewed the patient's lab results. <Alexus Munoz CNP - Last Filed: 07/11/21 16:55> Result diagrams: : 07/11/21 12:34 07/11/21 18:28 <Alexus Munoz CNP - Last Filed: 07/11/21 16:55> Labs: Lab Results 07/11/21 07/11/21 07/11/21 Range/Units 10:38 12:34 12:34 WBC 12.3 H (4.8-10.8) X10*3/uL RBC 4.08 L (4.60-5.80) X10*6/uL Hgb 12.7 L (14.0-18.0) g/dl Hct 35.1 L (42.0-52.0) % MCV 86.0 (80.0-98.0) fL MCH 31.1 (27.0-33.0) pg MCHC 36.2 H (31.0-36.0) g/dl RDW 13.2 (11.0-16.0) % Plt Count 343 (160-400) X10*3/uL MPV 8.5 L (9.4-12.4) fL Immature Gran % (Auto) 1.2 H (0.0-0.4) % Neut % (Auto) 77.8 H (45-73) % Lymph % (Auto) 12.8 L (20-40) % [place] % (Auto) 7.2 (2-11) % Eos % (Auto) 0.7 (0-4) % Baso % (Auto) 0.3 (0-2) % Lymph # (Auto) 1.6 (1.2-4.9) X10*3/uL [place] # (Auto) 0.9 (0.1-1.2) X10*3/uL Eos # (Auto) 0.1 (0.0-0.4) X10*3/uL Baso # (Auto) 0.0 (0.0-0.2) X10*3/uL Abs Immat Gran (auto) 0.15 H (0.00-0.03) X10*3/uL Absolute Neuts (auto) 9.5 H (2.0-8.3) x10*3/uL Absolute Nucleated RBC 0.000 (0.0-0.012) X10*3/uL Nucleated RBC % (auto) 0.0 (0.0-0.2) /100WBC VBG pH (7.32-7.43) VBG pCO2 mmHg VBG pO2 mmHg VBG HCO3 (22-26) mmol/L VBG O2 Saturation % VBG Base Excess mmol/L Sodium (135-145) mmol/L Potassium (3.3-5.1) mmol/L Chloride (96-108) mmol/L Carbon Dioxide (22-29) mmol/L Anion Gap (12-20) BUN (9-16) mg/dL Creatinine (0.5-1.4) mg/dL Estim Creat Clear Calc Estimated GFR POC Glucose 196 H (60-115) mg/dL Random Glucose (60-115) mg/dL Osmolality (281-305) mosm/kg Lactic Acid 1.5 (0.5-2.0) mmol/L Calcium (8.4-10.2) mg/dL Magnesium (1.6-2.6) mg/dL Total Bilirubin (0.0-1.0) mg/dL AST (5-37) U/L ALT (0-40) U/L Alkaline Phosphatase (39-117) U/L Total Creatine Kinase (38-174) U/L Troponin I High Sens (<3.5-35.0) ng/L B-Natriuretic Peptide (<100) pg/mL Total Protein (6.5-8.0) g/dL Albumin (3.5-5.0) g/dL Lipase (8-78) U/L Urine Color Urine Appearance Urine pH (5.0-8.0) Ur Specific [place] (1.005-1.025) Urine Protein (NEG-TRACE) MG/DL Urine Glucose (UA) (NEG) MG/DL Urine Ketones (NEG) MG/DL Urine Blood (NEG) Urine Nitrite (NEG) Ur Leukocyte Esterase (NEG) Urine Opiates Screen (Not Detect) Urine Fentanyl Screen (Not Detect) Ur Barbiturates Screen (Not Detect) Ur Phencyclidine Scrn (Not Detect) Ur Amphetamines Screen (Not Detect) U Benzodiazepines Scrn (Not Detect) Urine Cocaine Screen (Not Detect) U Marijuana (THC) Screen (Not Detect) Ethyl Alcohol mg/dL COVID-19 (ELIER) (Negative) COVID-19 Clin Com 07/11/21 07/11/21 07/11/21 Range/Units 12:34 12:34 12:34 WBC (4.8-10.8) X10*3/uL RBC (4.60-5.80) X10*6/uL Hgb (14.0-18.0) g/dl Hct (42.0-52.0) % MCV (80.0-98.0) fL MCH (27.0-33.0) pg MCHC (31.0-36.0) g/dl RDW (11.0-16.0) % Plt Count (160-400) X10*3/uL MPV (9.4-12.4) fL Immature Gran % (Auto) (0.0-0.4) % Neut % (Auto) (45-73) % Lymph % (Auto) (20-40) % [place] % (Auto) (2-11) % Eos % (Auto) (0-4) % Baso % (Auto) (0-2) % Lymph # (Auto) (1.2-4.9) X10*3/uL [place] # (Auto) (0.1-1.2) X10*3/uL Eos # (Auto) (0.0-0.4) X10*3/uL Baso # (Auto) (0.0-0.2) X10*3/uL Abs Immat Gran (auto) (0.00-0.03) X10*3/uL Absolute Neuts (auto) (2.0-8.3) x10*3/uL Absolute Nucleated RBC (0.0-0.012) X10*3/uL Nucleated RBC % (auto) (0.0-0.2) /100WBC VBG pH (7.32-7.43) VBG pCO2 mmHg VBG pO2 mmHg VBG HCO3 (22-26) mmol/L VBG O2 Saturation % VBG Base Excess mmol/L Sodium (135-145) mmol/L Potassium (3.3-5.1) mmol/L Chloride (96-108) mmol/L Carbon Dioxide (22-29) mmol/L Anion Gap (12-20) BUN (9-16) mg/dL Creatinine (0.5-1.4) mg/dL Estim Creat Clear Calc Estimated GFR POC Glucose (60-115) mg/dL Random Glucose (60-115) mg/dL Osmolality (281-305) mosm/kg Lactic Acid (0.5-2.0) mmol/L Calcium (8.4-10.2) mg/dL Magnesium (1.6-2.6) mg/dL Total Bilirubin (0.0-1.0) mg/dL AST (5-37) U/L ALT (0-40) U/L Alkaline Phosphatase (39-117) U/L Total Creatine Kinase (38-174) U/L Troponin I High Sens 22.6 D (<3.5-35.0) ng/L B-Natriuretic Peptide 165 H (<100) pg/mL Total Protein (6.5-8.0) g/dL Albumin (3.5-5.0) g/dL Lipase (8-78) U/L Urine Color Urine Appearance Urine pH (5.0-8.0) Ur Specific [place] (1.005-1.025) Urine Protein (NEG-TRACE) MG/DL Urine Glucose (UA) (NEG) MG/DL Urine Ketones (NEG) MG/DL Urine Blood (NEG) Urine Nitrite (NEG) Ur Leukocyte Esterase (NEG) Urine Opiates Screen (Not Detect) Urine Fentanyl Screen (Not Detect) Ur Barbiturates Screen (Not Detect) Ur Phencyclidine Scrn (Not Detect) Ur Amphetamines Screen (Not Detect) U Benzodiazepines Scrn (Not Detect) Urine Cocaine Screen (Not Detect) U Marijuana (THC) Screen (Not Detect) Ethyl Alcohol < 10 mg/dL COVID-19 (ELIER) Negative (Negative) COVID-19 Clin Com See Note 07/11/21 07/11/21 07/11/21 Range/Units 12:34 16:43 16:44 WBC (4.8-10.8) X10*3/uL RBC (4.60-5.80) X10*6/uL Hgb (14.0-18.0) g/dl Hct (42.0-52.0) % MCV (80.0-98.0) fL MCH (27.0-33.0) pg MCHC (31.0-36.0) g/dl RDW (11.0-16.0) % Plt Count (160-400) X10*3/uL MPV (9.4-12.4) fL Immature Gran % (Auto) (0.0-0.4) % Neut % (Auto) (45-73) % Lymph % (Auto) (20-40) % [place] % (Auto) (2-11) % Eos % (Auto) (0-4) % Baso % (Auto) (0-2) % Lymph # (Auto) (1.2-4.9) X10*3/uL [place] # (Auto) (0.1-1.2) X10*3/uL Eos # (Auto) (0.0-0.4) X10*3/uL Baso # (Auto) (0.0-0.2) X10*3/uL Abs Immat Gran (auto) (0.00-0.03) X10*3/uL Absolute Neuts (auto) (2.0-8.3) x10*3/uL Absolute Nucleated RBC (0.0-0.012) X10*3/uL Nucleated RBC % (auto) (0.0-0.2) /100WBC VBG pH 7.33 (7.32-7.43) VBG pCO2 27 mmHg VBG pO2 96 mmHg VBG HCO3 14 L (22-26) mmol/L VBG O2 Saturation 97.0 % VBG Base Excess -9.4 mmol/L Sodium 120 L* (135-145) mmol/L Potassium 4.3 (3.3-5.1) mmol/L Chloride 85 L (96-108) mmol/L Carbon Dioxide 16 L (22-29) mmol/L Anion Gap 23 H (12-20) BUN 6 L D (9-16) mg/dL Creatinine 0.87 (0.5-1.4) mg/dL Estim Creat Clear Calc 99.2 Estimated GFR > 60 POC Glucose (60-115) mg/dL Random Glucose 191 H (60-115) mg/dL Osmolality 263 L (281-305) mosm/kg Lactic Acid (0.5-2.0) mmol/L Calcium 8.3 L (8.4-10.2) mg/dL Magnesium 1.9 (1.6-2.6) mg/dL Total Bilirubin 0.8 (0.0-1.0) mg/dL AST 32 D (5-37) U/L ALT 20 (0-40) U/L Alkaline Phosphatase 99 (39-117) U/L Total Creatine Kinase 587 H D (38-174) U/L Troponin I High Sens (<3.5-35.0) ng/L B-Natriuretic Peptide (<100) pg/mL Total Protein 6.1 L (6.5-8.0) g/dL Albumin 3.6 (3.5-5.0) g/dL Lipase 14 (8-78) U/L Urine Color Urine Appearance Urine pH (5.0-8.0) Ur Specific [place] (1.005-1.025) Urine Protein (NEG-TRACE) MG/DL Urine Glucose (UA) (NEG) MG/DL Urine Ketones (NEG) MG/DL Urine Blood (NEG) Urine Nitrite (NEG) Ur Leukocyte Esterase (NEG) Urine Opiates Screen (Not Detect) Urine Fentanyl Screen (Not Detect) Ur Barbiturates Screen (Not Detect) Ur Phencyclidine Scrn (Not Detect) Ur Amphetamines Screen (Not Detect) U Benzodiazepines Scrn (Not Detect) Urine Cocaine Screen (Not Detect) U Marijuana (THC) Screen (Not Detect) Ethyl Alcohol mg/dL COVID-19 (ELIER) (Negative) COVID-19 Clin Com 07/11/21 07/11/21 07/11/21 Range/Units 18:28 18:53 18:53 WBC (4.8-10.8) X10*3/uL RBC (4.60-5.80) X10*6/uL Hgb (14.0-18.0) g/dl Hct (42.0-52.0) % MCV (80.0-98.0) fL MCH (27.0-33.0) pg MCHC (31.0-36.0) g/dl RDW (11.0-16.0) % Plt Count (160-400) X10*3/uL MPV (9.4-12.4) fL Immature Gran % (Auto) (0.0-0.4) % Neut % (Auto) (45-73) % Lymph % (Auto) (20-40) % [place] % (Auto) (2-11) % Eos % (Auto) (0-4) % Baso % (Auto) (0-2) % Lymph # (Auto) (1.2-4.9) X10*3/uL [place] # (Auto) (0.1-1.2) X10*3/uL Eos # (Auto) (0.0-0.4) X10*3/uL Baso # (Auto) (0.0-0.2) X10*3/uL Abs Immat Gran (auto) (0.00-0.03) X10*3/uL Absolute Neuts (auto) (2.0-8.3) x10*3/uL Absolute Nucleated RBC (0.0-0.012) X10*3/uL Nucleated RBC % (auto) (0.0-0.2) /100WBC VBG pH (7.32-7.43) VBG pCO2 mmHg VBG pO2 mmHg VBG HCO3 (22-26) mmol/L VBG O2 Saturation % VBG Base Excess mmol/L Sodium 120 L* (135-145) mmol/L Potassium 4.1 (3.3-5.1) mmol/L Chloride 85 L (96-108) mmol/L Carbon Dioxide 18 L (22-29) mmol/L Anion Gap 21 H (12-20) BUN 6 L (9-16) mg/dL Creatinine 0.90 (0.5-1.4) mg/dL Estim Creat Clear Calc 95.9 Estimated GFR > 60 POC Glucose (60-115) mg/dL Random Glucose 212 H (60-115) mg/dL Osmolality (281-305) mosm/kg Lactic Acid (0.5-2.0) mmol/L Calcium 8.1 L (8.4-10.2) mg/dL Magnesium (1.6-2.6) mg/dL Total Bilirubin (0.0-1.0) mg/dL AST (5-37) U/L ALT (0-40) U/L Alkaline Phosphatase (39-117) U/L Total Creatine Kinase (38-174) U/L Troponin I High Sens (<3.5-35.0) ng/L B-Natriuretic Peptide (<100) pg/mL Total Protein (6.5-8.0) g/dL Albumin (3.5-5.0) g/dL Lipase (8-78) U/L Urine Color YELLOW Urine Appearance CLEAR Urine pH 5.5 (5.0-8.0) Ur Specific [place] 1.015 (1.005-1.025) Urine Protein NEG (NEG-TRACE) MG/DL Urine Glucose (UA) NEG (NEG) MG/DL Urine Ketones >=80 (NEG) MG/DL Urine Blood NEG (NEG) Urine Nitrite NEG (NEG) Ur Leukocyte Esterase NEG (NEG) Urine Opiates Screen Not Detected (Not Detect) Urine Fentanyl Screen Not Detected (Not Detect) Ur Barbiturates Screen POSITIVE H (Not Detect) Ur Phencyclidine Scrn Not Detected (Not Detect) Ur Amphetamines Screen Not Detected (Not Detect) U Benzodiazepines Scrn Not Detected (Not Detect) Urine Cocaine Screen Not Detected (Not Detect) U Marijuana (THC) Screen Not Detected (Not Detect) Ethyl Alcohol mg/dL COVID-19 (ELIER) (Negative) COVID-19 Clin Com <Alexus Munoz, [employer] - Last Filed: 07/11/21 16:55> Lab Results 07/11/21 07/11/21 07/11/21 Range/Units 10:38 12:34 12:34 WBC 12.3 H (4.8-10.8) X10*3/uL RBC 4.08 L (4.60-5.80) X10*6/uL Hgb 12.7 L (14.0-18.0) g/dl Hct 35.1 L (42.0-52.0) % MCV 86.0 (80.0-98.0) fL MCH 31.1 (27.0-33.0) pg MCHC 36.2 H (31.0-36.0) g/dl RDW 13.2 (11.0-16.0) % Plt Count 343 (160-400) X10*3/uL MPV 8.5 L (9.4-12.4) fL Immature Gran % (Auto) 1.2 H (0.0-0.4) % Neut % (Auto) 77.8 H (45-73) % Lymph % (Auto) 12.8 L (20-40) % [place] % (Auto) 7.2 (2-11) % Eos % (Auto) 0.7 (0-4) % Baso % (Auto) 0.3 (0-2) % Lymph # (Auto) 1.6 (1.2-4.9) X10*3/uL [place] # (Auto) 0.9 (0.1-1.2) X10*3/uL Eos # (Auto) 0.1 (0.0-0.4) X10*3/uL Baso # (Auto) 0.0 (0.0-0.2) X10*3/uL Abs Immat Gran (auto) 0.15 H (0.00-0.03) X10*3/uL Absolute Neuts (auto) 9.5 H (2.0-8.3) x10*3/uL Absolute Nucleated RBC 0.000 (0.0-0.012) X10*3/uL Nucleated RBC % (auto) 0.0 (0.0-0.2) /100WBC VBG pH (7.32-7.43) VBG pCO2 mmHg VBG pO2 mmHg VBG HCO3 (22-26) mmol/L VBG O2 Saturation % VBG Base Excess mmol/L Sodium (135-145) mmol/L Potassium (3.3-5.1) mmol/L Chloride (96-108) mmol/L Carbon Dioxide (22-29) mmol/L Anion Gap (12-20) BUN (9-16) mg/dL Creatinine (0.5-1.4) mg/dL Estim Creat Clear Calc Estimated GFR POC Glucose 196 H (60-115) mg/dL Random Glucose (60-115) mg/dL Osmolality (281-305) mosm/kg Lactic Acid 1.5 (0.5-2.0) mmol/L Calcium (8.4-10.2) mg/dL Magnesium (1.6-2.6) mg/dL Total Bilirubin (0.0-1.0) mg/dL AST (5-37) U/L ALT (0-40) U/L Alkaline Phosphatase (39-117) U/L Total Creatine Kinase (38-174) U/L Troponin I High Sens (<3.5-35.0) ng/L B-Natriuretic Peptide (<100) pg/mL Total Protein (6.5-8.0) g/dL Albumin (3.5-5.0) g/dL Lipase (8-78) U/L Urine Color Urine Appearance Urine pH (5.0-8.0) Ur Specific [place] (1.005-1.025) Urine Protein (NEG-TRACE) MG/DL Urine Glucose (UA) (NEG) MG/DL Urine Ketones (NEG) MG/DL Urine Blood (NEG) Urine Nitrite (NEG) Ur Leukocyte Esterase (NEG) Urine Opiates Screen (Not Detect) Urine Fentanyl Screen (Not Detect) Ur Barbiturates Screen (Not Detect) Ur Phencyclidine Scrn (Not Detect) Ur Amphetamines Screen (Not Detect) U Benzodiazepines Scrn (Not Detect) Urine Cocaine Screen (Not Detect) U Marijuana (THC) Screen (Not Detect) Ethyl Alcohol mg/dL COVID-19 (ELIER) (Negative) COVID-19 Clin Com 07/11/21 07/11/21 07/11/21 Range/Units 12:34 12:34 12:34 WBC (4.8-10.8) X10*3/uL RBC (4.60-5.80) X10*6/uL Hgb (14.0-18.0) g/dl Hct (42.0-52.0) % MCV (80.0-98.0) fL MCH (27.0-33.0) pg MCHC (31.0-36.0) g/dl RDW (11.0-16.0) % Plt Count (160-400) X10*3/uL MPV (9.4-12.4) fL Immature Gran % (Auto) (0.0-0.4) % Neut % (Auto) (45-73) % Lymph % (Auto) (20-40) % [place] % (Auto) (2-11) % Eos % (Auto) (0-4) % Baso % (Auto) (0-2) % Lymph # (Auto) (1.2-4.9) X10*3/uL [place] # (Auto) (0.1-1.2) X10*3/uL Eos # (Auto) (0.0-0.4) X10*3/uL Baso # (Auto) (0.0-0.2) X10*3/uL Abs Immat Gran (auto) (0.00-0.03) X10*3/uL Absolute Neuts (auto) (2.0-8.3) x10*3/uL Absolute Nucleated RBC (0.0-0.012) X10*3/uL Nucleated RBC % (auto) (0.0-0.2) /100WBC VBG pH (7.32-7.43) VBG pCO2 mmHg VBG pO2 mmHg VBG HCO3 (22-26) mmol/L VBG O2 Saturation % VBG Base Excess mmol/L Sodium (135-145) mmol/L Potassium (3.3-5.1) mmol/L Chloride (96-108) mmol/L Carbon Dioxide (22-29) mmol/L Anion Gap (12-20) BUN (9-16) mg/dL Creatinine (0.5-1.4) mg/dL Estim Creat Clear Calc Estimated GFR POC Glucose (60-115) mg/dL Random Glucose (60-115) mg/dL Osmolality (281-305) mosm/kg Lactic Acid (0.5-2.0) mmol/L Calcium (8.4-10.2) mg/dL Magnesium (1.6-2.6) mg/dL Total Bilirubin (0.0-1.0) mg/dL AST (5-37) U/L ALT (0-40) U/L Alkaline Phosphatase (39-117) U/L Total Creatine Kinase (38-174) U/L Troponin I High Sens 22.6 D (<3.5-35.0) ng/L B-Natriuretic Peptide 165 H (<100) pg/mL Total Protein (6.5-8.0) g/dL Albumin (3.5-5.0) g/dL Lipase (8-78) U/L Urine Color Urine Appearance Urine pH (5.0-8.0) Ur Specific [place] (1.005-1.025) Urine Protein (NEG-TRACE) MG/DL Urine Glucose (UA) (NEG) MG/DL Urine Ketones (NEG) MG/DL Urine Blood (NEG) Urine Nitrite (NEG) Ur Leukocyte Esterase (NEG) Urine Opiates Screen (Not Detect) Urine Fentanyl Screen (Not Detect) Ur Barbiturates Screen (Not Detect) Ur Phencyclidine Scrn (Not Detect) Ur Amphetamines Screen (Not Detect) U Benzodiazepines Scrn (Not Detect) Urine Cocaine Screen (Not Detect) U Marijuana (THC) Screen (Not Detect) Ethyl Alcohol < 10 mg/dL COVID-19 (ELIER) Negative (Negative) COVID-19 Clin Com See Note 07/11/21 07/11/21 07/11/21 Range/Units 12:34 16:43 16:44 WBC (4.8-10.8) X10*3/uL RBC (4.60-5.80) X10*6/uL Hgb (14.0-18.0) g/dl Hct (42.0-52.0) % MCV (80.0-98.0) fL MCH (27.0-33.0) pg MCHC (31.0-36.0) g/dl RDW (11.0-16.0) % Plt Count (160-400) X10*3/uL MPV (9.4-12.4) fL Immature Gran % (Auto) (0.0-0.4) % Neut % (Auto) (45-73) % Lymph % (Auto) (20-40) % [place] % (Auto) (2-11) % Eos % (Auto) (0-4) % Baso % (Auto) (0-2) % Lymph # (Auto) (1.2-4.9) X10*3/uL [place] # (Auto) (0.1-1.2) X10*3/uL Eos # (Auto) (0.0-0.4) X10*3/uL Baso # (Auto) (0.0-0.2) X10*3/uL Abs Immat Gran (auto) (0.00-0.03) X10*3/uL Absolute Neuts (auto) (2.0-8.3) x10*3/uL Absolute Nucleated RBC (0.0-0.012) X10*3/uL Nucleated RBC % (auto) (0.0-0.2) /100WBC VBG pH 7.33 (7.32-7.43) VBG pCO2 27 mmHg VBG pO2 96 mmHg VBG HCO3 14 L (22-26) mmol/L VBG O2 Saturation 97.0 % VBG Base Excess -9.4 mmol/L Sodium 120 L* (135-145) mmol/L Potassium 4.3 (3.3-5.1) mmol/L Chloride 85 L (96-108) mmol/L Carbon Dioxide 16 L (22-29) mmol/L Anion Gap 23 H (12-20) BUN 6 L D (9-16) mg/dL Creatinine 0.87 (0.5-1.4) mg/dL Estim Creat Clear Calc 99.2 Estimated GFR > 60 POC Glucose (60-115) mg/dL Random Glucose 191 H (60-115) mg/dL Osmolality 263 L (281-305) mosm/kg Lactic Acid (0.5-2.0) mmol/L Calcium 8.3 L (8.4-10.2) mg/dL Magnesium 1.9 (1.6-2.6) mg/dL Total Bilirubin 0.8 (0.0-1.0) mg/dL AST 32 D (5-37) U/L ALT 20 (0-40) U/L Alkaline Phosphatase 99 (39-117) U/L Total Creatine Kinase 587 H D (38-174) U/L Troponin I High Sens (<3.5-35.0) ng/L B-Natriuretic Peptide (<100) pg/mL Total Protein 6.1 L (6.5-8.0) g/dL Albumin 3.6 (3.5-5.0) g/dL Lipase 14 (8-78) U/L Urine Color Urine Appearance Urine pH (5.0-8.0) Ur Specific [place] (1.005-1.025) Urine Protein (NEG-TRACE) MG/DL Urine Glucose (UA) (NEG) MG/DL Urine Ketones (NEG) MG/DL Urine Blood (NEG) Urine Nitrite (NEG) Ur Leukocyte Esterase (NEG) Urine Opiates Screen (Not Detect) Urine Fentanyl Screen (Not Detect) Ur Barbiturates Screen (Not Detect) Ur Phencyclidine Scrn (Not Detect) Ur Amphetamines Screen (Not Detect) U Benzodiazepines Scrn (Not Detect) Urine Cocaine Screen (Not Detect) U Marijuana (THC) Screen (Not Detect) Ethyl Alcohol mg/dL COVID-19 (ELIER) (Negative) COVID-19 Clin Com 07/11/21 07/11/21 07/11/21 Range/Units 18:28 18:53 18:53 WBC (4.8-10.8) X10*3/uL RBC (4.60-5.80) X10*6/uL Hgb (14.0-18.0) g/dl Hct (42.0-52.0) % MCV (80.0-98.0) fL MCH (27.0-33.0) pg MCHC (31.0-36.0) g/dl RDW (11.0-16.0) % Plt Count (160-400) X10*3/uL MPV (9.4-12.4) fL Immature Gran % (Auto) (0.0-0.4) % Neut % (Auto) (45-73) % Lymph % (Auto) (20-40) % [place] % (Auto) (2-11) % Eos % (Auto) (0-4) % Baso % (Auto) (0-2) % Lymph # (Auto) (1.2-4.9) X10*3/uL [place] # (Auto) (0.1-1.2) X10*3/uL Eos # (Auto) (0.0-0.4) X10*3/uL Baso # (Auto) (0.0-0.2) X10*3/uL Abs Immat Gran (auto) (0.00-0.03) X10*3/uL Absolute Neuts (auto) (2.0-8.3) x10*3/uL Absolute Nucleated RBC (0.0-0.012) X10*3/uL Nucleated RBC % (auto) (0.0-0.2) /100WBC VBG pH (7.32-7.43) VBG pCO2 mmHg VBG pO2 mmHg VBG HCO3 (22-26) mmol/L VBG O2 Saturation % VBG Base Excess mmol/L Sodium 120 L* (135-145) mmol/L Potassium 4.1 (3.3-5.1) mmol/L Chloride 85 L (96-108) mmol/L Carbon Dioxide 18 L (22-29) mmol/L Anion Gap 21 H (12-20) BUN 6 L (9-16) mg/dL Creatinine 0.90 (0.5-1.4) mg/dL Estim Creat Clear Calc 95.9 Estimated GFR > 60 POC Glucose (60-115) mg/dL Random Glucose 212 H (60-115) mg/dL Osmolality (281-305) mosm/kg Lactic Acid (0.5-2.0) mmol/L Calcium 8.1 L (8.4-10.2) mg/dL Magnesium (1.6-2.6) mg/dL Total Bilirubin (0.0-1.0) mg/dL AST (5-37) U/L ALT (0-40) U/L Alkaline Phosphatase (39-117) U/L Total Creatine Kinase (38-174) U/L Troponin I High Sens (<3.5-35.0) ng/L B-Natriuretic Peptide (<100) pg/mL Total Protein (6.5-8.0) g/dL Albumin (3.5-5.0) g/dL Lipase (8-78) U/L Urine Color YELLOW Urine Appearance CLEAR Urine pH 5.5 (5.0-8.0) Ur Specific [place] 1.015 (1.005-1.025) Urine Protein NEG (NEG-TRACE) MG/DL Urine Glucose (UA) NEG (NEG) MG/DL Urine Ketones >=80 (NEG) MG/DL Urine Blood NEG (NEG) Urine Nitrite NEG (NEG) Ur Leukocyte Esterase NEG (NEG) Urine Opiates Screen Not Detected (Not Detect) Urine Fentanyl Screen Not Detected (Not Detect) Ur Barbiturates Screen POSITIVE H (Not Detect) Ur Phencyclidine Scrn Not Detected (Not Detect) Ur Amphetamines Screen Not Detected (Not Detect) U Benzodiazepines Scrn Not Detected (Not Detect) Urine Cocaine Screen Not Detected (Not Detect) U Marijuana (THC) Screen Not Detected (Not Detect) Ethyl Alcohol mg/dL COVID-19 (ELIER) (Negative) COVID-19 Clin Com <DARLINE Batres - Last Filed: 07/11/21 19:24> Imaging Data CT scan - head: Radiologist's impression: FINDINGS: There is no evidence of an extra-axial collection. There is no evidence of intra-axial or extra-axial hemorrhage. Ventricles and extra-axial CSF spaces are prominent suggestive of generalized atrophy. There is nonspecific periventricular white matter disease. No mass, mass effect or infarct is seen. There is a small extra-axial calcification adjacent to the left posterior falx that is stable. Review of bone windows is normal. No skull fracture is seen. Visualized paranasal sinuses, mastoid air cells and middle ears are clear. ? CT/CT head/brain wo con IMPRESSION: No acute intracranial findings. Generalized atrophy and mild nonspecific periventricular white matter disease. CT/CT cervical spine wo con IMPRESSION: Mild degenerative changes. No fracture or dislocation.? <Alexus Munoz CNP - Last Filed: 07/11/21 16:55> CT scan - abdomen: Radiologist's impression: CT/CT abdomen pelvis wo con IMPRESSION: Bibasilar bronchopneumonia, right greater than left. This is improved from June 2021 exam. Acute right posterior 11th rib fracture. This is new in the interval from June 2021 exam. Diverticulosis of the colon. Small left renal cyst. Bilateral femoral head AVN. Fleischner guidelines were followed. <Alexus Munoz CNP - Last Filed: 07/11/21 16:55> Chest x-ray: Radiologist's impression: FINDINGS: The cardiac and mediastinal contours are normal. There are increased markings at the right lung base questionable for small infiltrate. This is similar to most recent chest x-ray from June 2021. The lungs are otherwise clear.? There is no pleural effusion or pneumothorax. There is a right shoulder replacement. XR/XR chest 1V IMPRESSION: Small infiltrate at the right lung base similar to June 2021 exam. <Alexus Munoz CNP - Last Filed: 07/11/21 16:55> ECG Data Attestation: I personally reviewed and interpreted this ECG as follows: <Alexus Munoz CNP - Last Filed: 07/11/21 16:55> ECG interpretation date: 07/11/21 <Alexus Munoz CNP - Last Filed: 07/11/21 16:55> ECG interpretation time: 10:15 <Alexus Munoz CNP - Last Filed: 07/11/21 16:55> Prior ECG tracings: available for review <Alexus Munoz CNP - Last Filed: 07/11/21 16:55> Interpretation: Rate: 137 Rhythm:? Sinus tachycardia Normal P waves.? Normal JOS.?? Normal QRS complex.?? ST T wave :??No ST elevation, no ST depression qTC: 516 prior studies:? 06/26/2021 The study has been interpreted contemporaneously by me. <Alexus Munoz CNP - Last Filed: 07/11/21 16:55> Discharge Plan Discharge Clinical Impression: Fall, Closed rib fracture, Generalized weakness, Rhabdomyolysis, Acute hyponatremia <Alexus Munoz CNP - Last Filed: 07/11/21 16:55> Patient Disposition: Admitted As Inpatient <Alexus Munoz CNP - Last Filed: 07/11/21 16:55>
[2021-07-11 10:45] LABS: Glucose, Whole Blood 196 mg/dL (60-115)
--- NOTE | 2021-07-11 10:48 | PC.NURSE ---
Pt cleansed from head to toe. Has large areas of deep reddness which are tender on right hip and right flank. no open skin. large fungal irritation/redness in inguinal folds, scrotum, buttocks. Pt cleansed of stool and urine and black soot substance all over back/chest/abd/legs. Remains alert. no tremor. 2L NC applied at patient's request.
[2021-07-11] MEDS: LORazepam 2 MG/ML VIAL IM (11:48)
--- NOTE | 2021-07-11 12:02 | PC.NURSE ---
pt remains alert. had short periods of tremors. Doc Gary at bedside with assist from Rachel ROSENBERG. Pt is a very difficult stick.
[2021-07-11] MEDS: Ondansetron ODT 4 MG TAB.RAPDIS TRANSLINGU (12:05)
[2021-07-11 12:41] LABS: MANUAL DIFF FLAG NO
[2021-07-11 12:45] LABS: Basophils Percent Auto 0.3 % (0-2); Eosinophils Absolute Auto 0.1 X10*3/uL (0.0-0.4); Eosinophils Percent Auto 0.7 % (0-4); Hematocrit 35.1 % (42.0-52.0); Hemoglobin 12.7 g/dl (14.0-18.0); Imm Gran Abs Auto 0.15 X10*3/uL (0.00-0.03); Imm Gran Pct Auto 1.2 % (0.0-0.4); Lymphocytes Absolute Auto 1.6 X10*3/uL (1.2-4.9); Lymphocytes Percent Auto 12.8 % (20-40); Mean Corpuscular HGB Conc 36.2 g/dl (31.0-36.0); Mean Corpuscular Hemoglobin 31.1 pg (27.0-33.0); Mean Platelet Volume 8.5 fL (9.4-12.4); Monocytes Absolute Auto 0.9 X10*3/uL (0.1-1.2); Monocytes Percent Auto 7.2 % (2-11); Neutrophils Absolute Auto 9.5 x10*3/uL (2.0-8.3); Neutrophils Percent Auto 77.8 % (45-73); Platelet Count 343 X10*3/uL (160-400); Red Blood Count 4.08 X10*6/uL (4.60-5.80); Red Cell Distribution Width 13.2 % (11.0-16.0); White Blood Count 12.3 X10*3/uL (4.8-10.8)
[2021-07-11 12:52] LABS: Lactic Acid 1.5 mmol/L (0.5-2.0)
--- NOTE | 2021-07-11 12:55 | PC.NURSE ---
1300: pt has been a very difficult stick 24G in right foot appears infiltrated only after 20cc;s
[2021-07-11 12:59] LABS: COVID-19 Test Negative (Negative); IDNOW Serial# 16C4AD1C
[2021-07-11 13:01] LABS: Ethanol < 10 mg/dL
[2021-07-11 13:02] LABS: B Type Natriuretic Peptide 165 pg/mL (<100); Troponin-I High Sensitivity 22.6 ng/L (<3.5-35.0)
[2021-07-11] MEDS: Magnesium Sulfate/H2O 2 GM/50 ML PIGGYBACK IV (13:02)
[2021-07-11] MEDS: 0.9 % Sodium Chloride 1,000 ML 999 ML IV ×2 (13:03→15:00)
[2021-07-11] MEDS: HYDROmorphone HCl 1 MG/ML SYRINGE IM (13:30)
--- NOTE | 2021-07-11 13:40 | PC.NURSE ---
Pt requesting food frequently. Attempted urinal use but missed. Bed linens changed and pt cleansed. awaits further lab draws and CT. Pt has not been very cooperative with mult iv attempts.
--- NOTE | 2021-07-11 14:43 | PC.NURSE ---
phlebotomy called and willing to draw patient.
[2021-07-11] MEDS: Piperacillin Sodium/Tazobactam 3.375 GM in 0.9 % Sodium Chloride 50 ML IV (15:00)
--- NOTE | 2021-07-11 15:10 | PC.NURSE ---
phlebotomy at bedside. abx started after 1 set of cultures since pt is such a difficult stick. remains axox3. no tremors
--- NOTE | 2021-07-11 15:31 | PHA.MEDREC ---
Pharmacy Consult ? Medication Reconciliation Pharmacy has completed the medication reconciliation. spoke with pt for up to date insulin doses and reviewed all other meds per the claim history. Pt wasn't too familiar with hydroxyzine or ramelton but said yes to all others confidently.
--- NOTE | 2021-07-11 16:06 | PC.NURSE ---
mult attempts by phlebotomy for labs. pt has been yelling at staff. moves when asked to stay still. yelling no more. come back tomorrow
[2021-07-11 16:51] LABS: Venous Blood Gas Refer to POC result
[2021-07-11 16:52] LABS: VBG Base Excess -9.4 mmol/L; VBG HCO3 14 mmol/L (22-26); VBG pCO2 27 mmHg; VBG pH 7.33 (7.32-7.43); VBG pO2 96 mmHg
[2021-07-11 17:26] LABS: Alanine Aminotransferase 20 U/L (0-40); Albumin Level 3.6 g/dL (3.5-5.0); Alkaline Phosphatase 99 U/L (39-117); Anion Gap 23 (12-20); Aspartate Amino Transferase 32 U/L (5-37); Bilirubin Total 0.8 mg/dL (0.0-1.0); Blood Urea Nitrogen 6 mg/dL (9-16); Calcium 8.3 mg/dL (8.4-10.2); Carbon Dioxide 16 mmol/L (22-29); Chloride 85 mmol/L (96-108); Creatinine Clr Calc Pharmacy 99.2; Estimated Glomerular Filt Rate > 60; Glucose Random 191 mg/dL (60-115); Lipase 14 U/L (8-78); Magnesium 1.9 mg/dL (1.6-2.6); Potassium 4.3 mmol/L (3.3-5.1); Sodium 120 mmol/L (135-145); Total Protein 6.1 g/dL (6.5-8.0)
[2021-07-11 18:07] LABS: Osmolality, Serum 263 mosm/kg (281-305)
[2021-07-11 18:47] LABS: Blood Urea Nitrogen 6 mg/dL (9-16); Calcium 8.1 mg/dL (8.4-10.2); Creatinine Clr Calc Pharmacy 95.9; Estimated Glomerular Filt Rate > 60; Glucose Random 212 mg/dL (60-115)
--- NOTE | 2021-07-11 18:47 | PC.NURSE ---
Pt has been more quiet. Skin pwd. tolerated lab draw from RN in superficial chest vein. cathed for urine.
[2021-07-11 18:51] LABS: Anion Gap 21 (12-20); Carbon Dioxide 18 mmol/L (22-29); Chloride 85 mmol/L (96-108); Potassium 4.1 mmol/L (3.3-5.1); Sodium 120 mmol/L (135-145)
[2021-07-11 19:00] LABS: Appearance Urine CLEAR; Color Urine YELLOW; Glucose Urine UA NEG (NEG); Leukocyte Esterase Urine NEG (NEG); Nitrite Urine NEG (NEG); PH 5.5 (5.0-8.0); Specific Gravity - Urine 1.015 (1.005-1.025); Urine Blood NEG (NEG); Urine Ketones >=80 MG/DL (NEG); Urine Protein NEG (NEG-TRACE)
[2021-07-11 19:14] LABS: Amphetamine Screen Urine Not Detected (Not Detect); Barbiturates, Urine POSITIVE (Not Detect); Benzodiazepines Screen Urine Not Detected (Not Detect); Cannabinoid Screen Urine Not Detected (Not Detect); Cocaine Screen Urine Not Detected (Not Detect); Fentanyl, urine Not Detected (Not Detect); Opiate Screen Urine Not Detected (Not Detect); Phencyclidine Screen Urine Not Detected (Not Detect)
[2021-07-11] MEDS: 0.9 % Sodium Chloride 1,000 ML 80 ML IVCONT (20:15)
--- NOTE | 2021-07-11 23:20 | P.HPHOSP_ITS ---
History of Present Illness Date of Service: 07/11/21 Chief Complaint: Unwitnessed fall 65-year-old male with a past medical history of hypertension, hyperlipidemia, diabetes, history of diastolic CHF, aortic stenosis, history of aspiration pneumonia, diverticulitis; history of alcohol abuse presented to the hospital with a chief complaint of unwitnessed fall. Patient was found on the floor by his friend and subsequently EMS was called in some to the hospital for further evaluation. Patient reported that he fell down yesterday; had alcohol drink yesterday. Also mentioned that he probably lost consciousness. Denies any chest pain or palpitations. Reports pain in his left flank. Also complained of nausea. Denies any urinary symptoms. Denies any cough or sputum production. Reports that he drinks alcohol on a regular basis Review of all other systems is negative except mentioned above ER course: Per ER team patient had CT head, CT cervical spine showed no acute findings. CT abdomen showed no acute findings. On labs noted to have severe hyponatremia; nephrology was notified; gross suggested urea tablets and normal saline at 80 cc/hour given concerns for hyponatremia secondary to low solute state. Repeat BMP Showed sodium levels of 120 is. Also noted a mildly elevated CPK to 587. Admitted to the hospital for further management [facility] Medical History (Updated 07/21/21 @ 01:25 by Nadia Thibodeaux MD) LAUREN (acute kidney injury) Alcohol abuse COPD (chronic obstructive pulmonary disease) Diabetes mellitus type 1 Diastolic dysfunction Diastolic heart failure Fall HLD (hyperlipidemia) Hypertension Nonrheumatic aortic (valve) stenosis Obesity Family History Father Diabetes Mother Diabetes Surgical History (Updated 07/21/21 @ 09:27 by Mike Palmer MD) H/O elbow surgery H/O shoulder surgery History of hydrocelectomy S/P TURP Social History Household Members: None Housing: Alf Do you presently have visiting nurse or other home services: Yes (used to live in apt. has been in [place] for ahwile ) Alcohol intake: current Alcohol intake frequency: 3 or more drinks per day Alcohol type: hard liquor Patient Tobacco Use Status: Former Tobacco user Tobacco use type: Cigar e-Cigarette/Vaping Use: Currently Using Second Hand Smoke Exposure: No Advance Directives Date on File: 10/11/20 service: No Current occupational status: unemployed and disabled Meds Allergies Allergy/AdvReac Type Severity Reaction Status Date / Time ENVIRONMENTAL Allergy Mild SNEEZING, Uncoded 07/11/21 10:06 WATERY EYES Active Medications: Current Medications Acetaminophen (Acetaminophen 325 Mg Tablet) 650 mg PO Q6H PRN PRN Reason: Pain, Mild (Pain Scale 1-3) Dextrose (Dextrose 50 % 25 Gm/50 Ml Vial) 25 gm IVPUSH Q15M PRN; Protocol PRN Reason: per Hypoglycemia Standing Ord. Enoxaparin Sodium (Enoxaparin Sodium 40 Mg/0.4 Ml Syringe) 40 mg SUBCUT Q24H JOURDAN Famotidine (Famotidine 20 Mg Tablet) 20 mg PO BID [facility] Folic Acid (Folic Acid 1 Mg Tablet) 1 mg PO DAILY [facility] Stop: 07/15/21 08:59 Glucose (Glucose Gel 15 Gm Gel..Gram.) 15 gm PO Q15M PRN; Protocol PRN Reason: per Hypoglycemia Standing Ord. Sodium Chloride (Ns) 1,000 mls @ 80 mls/hr IVCONT .[id number] [facility] Last Admin: 07/11/21 20:15 Dose: 80 mls/hr Documented by: Insulin Glargine (Insulin Glargine,Hum.Rec.Anlog 100 Unit/Ml 10 Ml Vial) 30 unit SUBCUT BEDTIME [facility] Insulin Human Lispro (Insulin Lispro 100 Unit/Ml 3 Ml Vial) 0 unit SUBCUT QIDACHS [facility]; Protocol Lorazepam (Lorazepam 1 Mg Tablet) 1 mg PO Q4H PRN PRN Reason: Breakthrough alcohol withdrawa Stop: 07/15/21 23:11 Melatonin (Melatonin 3 Mg Tablet) 6 mg PO BEDTIME PRN PRN Reason: Insomnia Multivitamins/Vitamin C (Multivitamin Tablet) 1 tab PO DAILY [facility] Stop: 07/15/21 08:59 Senna (Sennosides 8.6 Mg Tablet) 17.2 mg PO BEDTIME PRN PRN Reason: Constipation Sodium Chloride (0.9 % Sodium Chloride Flush 3 Ml Syringe) 3 ml IVFLUSH QSHIFT [facility] Thiamine HCl (Thiamine Hcl 100 Mg Tablet) 100 mg PO DAILY [facility] Stop: 07/15/21 08:59 Urea (Urea 15 Gm Powder) 30 gm PO BID [facility] Home Medications Medication Instructions Recorded Confirmed Last Taken Type albuterol sulfate 1 amp INHALATION QID 12/29/20 07/21/21 Unknown History albuterol sulfate 90 mcg/actuation 2 puff INHALATION Q6H PRN 12/29/20 07/21/21 Unknown History aerosol inhaler blood sugar diagnostic (FreeStyle 12/29/20 02/04/21 Unknown History Lite Strips) folic acid 1 mg tablet 1 tab PO DAILY@1700 12/29/20 07/21/21 Unknown History lisinopril 10 mg tablet 1 tab PO DAILY 12/29/20 07/21/21 Unknown History simvastatin 20 mg tablet 1 tab PO BEDTIME 12/29/20 07/21/21 Unknown History thiamine HCl (vitamin B1) 100 mg 1 tab PO BEDTIME 12/29/20 07/21/21 Unknown History tablet aspirin 81 mg tablet,delayed 1 tab PO BEDTIME 02/04/21 07/21/21 Unknown History release buspirone 5 mg tablet 5 mg PO BID 02/04/21 07/21/21 Unknown History ramelteon 8 mg tablet 1 tab PO BEDTIME 05/12/21 07/21/21 Unknown History tamsulosin 0.4 mg capsule 1 cap PO DAILY@1700 05/12/21 07/21/21 Unknown History omeprazole 20 mg capsule,delayed 1 cap PO BID@0630,1630 06/01/21 07/21/21 Unknown History release gabapentin 300 mg capsule 2 cap PO TID 06/24/21 07/21/21 Unknown History insulin glargine 100 unit/mL 45 unit SUBCUT BEDTIME 06/24/21 07/21/21 Unknown History subcutaneous solution (Lantus U-100 Insulin) acetaminophen 325 mg capsule 650 mg PO TID 07/21/21 07/21/21 Unknown History (Tylenol) bisacodyl 10 mg rectal suppository 10 mg [place] DAILY PRN 07/21/21 07/21/21 Unknown History fluticasone 250 mcg-salmeterol 50 1 inh INHALATION BID 07/21/21 07/21/21 Unknown History mcg/dose blistr powdr for inhalation (Wixela Inhub) insulin aspart U-100 100 unit/mL 1 sliding scale dose SUBCUT 07/21/21 07/21/21 Unknown History (3 mL) subcutaneous pen (Novolog USEASDIRECTD Flexpen U-100 Insulin aspart) lidocaine 5 % topical patch 1 patch TOPICAL DAILY 07/21/21 07/21/21 Unknown History loperamide 2 mg capsule 2 mg PO Q6H PRN 07/21/21 07/21/21 Unknown History ondansetron HCl 4 mg tablet 4 mg PO Q4H PRN 07/21/21 07/21/21 Unknown History oxycodone 5 mg tablet 5 mg PO Q8H PRN 07/21/21 07/21/21 Unknown History Physical Exam Vital Signs and Narrative: Vital Signs: Last Vital Signs Temp 98.0 F 07/11/21 18:54 Pulse 97 07/11/21 21:35 Resp 18 07/11/21 21:35 BP 102/66 07/11/21 21:35 Pulse Ox 96 07/11/21 21:35 BMI result Body Mass Index 35.0 Gen: Appears be in no acute distress. speaks in full sentences. Breathing comfortably. HEENT: NCAT, Moist mucosa. Pulmonary: Vesicular breath sounds, fair air entry CVS: Normal S1-S2 Abdomen: BS+, Soft, Nontender Extremities: Warm well perfused Neuro: Alert and awake. moves all extremities equally Integumentary: Noted erythema, tenderness, hyperemia on the right flank posteriorly extending up to the right thigh posterolaterally. Results Labs CBC and Chem 7: 07/11/21 12:34 07/15/21 12:53 Labs: Laboratory Results - last 24 hr 07/11/21 07/11/21 07/11/21 10:38 12:34 12:34 MCV 86.0 MCH 31.1 MCHC 36.2 H RDW 13.2 Plt Count 343 MPV 8.5 L Immature Gran % (Auto) 1.2 H Neut % (Auto) 77.8 H Lymph % (Auto) 12.8 L [place] % (Auto) 7.2 Eos % (Auto) 0.7 Baso % (Auto) 0.3 Lymph # (Auto) 1.6 [place] # (Auto) 0.9 Eos # (Auto) 0.1 Baso # (Auto) 0.0 Abs Immat Gran (auto) 0.15 H Absolute Neuts (auto) 9.5 H Absolute Nucleated RBC 0.000 Nucleated RBC % (auto) 0.0 VBG pH VBG pCO2 VBG pO2 VBG HCO3 VBG O2 Saturation VBG Base Excess Anion Gap Estim Creat Clear Calc Estimated GFR POC Glucose 196 H Random Glucose Osmolality Lactic Acid 1.5 Calcium Magnesium Total Bilirubin AST ALT Alkaline Phosphatase Total Creatine Kinase B-Natriuretic Peptide Total Protein Albumin Lipase Urine Color Urine Appearance Urine pH Ur Specific [place] Urine Protein Urine Glucose (UA) Urine Ketones Urine Blood Urine Nitrite Ur Leukocyte Esterase Urine Opiates Screen Urine Fentanyl Screen Ur Barbiturates Screen Ur Phencyclidine Scrn Ur Amphetamines Screen U Benzodiazepines Scrn Urine Cocaine Screen U Marijuana (THC) Screen Ethyl Alcohol COVID-19 (ELIER) COVID-19 Clin Com 07/11/21 07/11/21 07/11/21 12:34 12:34 12:34 MCV MCH MCHC RDW Plt Count MPV Immature Gran % (Auto) Neut % (Auto) Lymph % (Auto) [place] % (Auto) Eos % (Auto) Baso % (Auto) Lymph # (Auto) [place] # (Auto) Eos # (Auto) Baso # (Auto) Abs Immat Gran (auto) Absolute Neuts (auto) Absolute Nucleated RBC Nucleated RBC % (auto) VBG pH VBG pCO2 VBG pO2 VBG HCO3 VBG O2 Saturation VBG Base Excess Anion Gap Estim Creat Clear Calc Estimated GFR POC Glucose Random Glucose Osmolality Lactic Acid Calcium Magnesium Total Bilirubin AST ALT Alkaline Phosphatase Total Creatine Kinase B-Natriuretic Peptide 165 H Total Protein Albumin Lipase Urine Color Urine Appearance Urine pH Ur Specific [place] Urine Protein Urine Glucose (UA) Urine Ketones Urine Blood Urine Nitrite Ur Leukocyte Esterase Urine Opiates Screen Urine Fentanyl Screen Ur Barbiturates Screen Ur Phencyclidine Scrn Ur Amphetamines Screen U Benzodiazepines Scrn Urine Cocaine Screen U Marijuana (THC) Screen Ethyl Alcohol < 10 COVID-19 (ELIER) Negative COVID-19 Clin Com See Note 07/11/21 07/11/21 07/11/21 12:34 16:43 16:44 MCV MCH MCHC RDW Plt Count MPV Immature Gran % (Auto) Neut % (Auto) Lymph % (Auto) [place] % (Auto) Eos % (Auto) Baso % (Auto) Lymph # (Auto) [place] # (Auto) Eos # (Auto) Baso # (Auto) Abs Immat Gran (auto) Absolute Neuts (auto) Absolute Nucleated RBC Nucleated RBC % (auto) VBG pH 7.33 VBG pCO2 27 VBG pO2 96 VBG HCO3 14 L VBG O2 Saturation 97.0 VBG Base Excess -9.4 Anion Gap 23 H Estim Creat Clear Calc 99.2 Estimated GFR > 60 POC Glucose Random Glucose 191 H Osmolality 263 L Lactic Acid Calcium 8.3 L Magnesium 1.9 Total Bilirubin 0.8 AST 32 D ALT 20 Alkaline Phosphatase 99 Total Creatine Kinase 587 H D B-Natriuretic Peptide Total Protein 6.1 L Albumin 3.6 Lipase 14 Urine Color Urine Appearance Urine pH Ur Specific [place] Urine Protein Urine Glucose (UA) Urine Ketones Urine Blood Urine Nitrite Ur Leukocyte Esterase Urine Opiates Screen Urine Fentanyl Screen Ur Barbiturates Screen Ur Phencyclidine Scrn Ur Amphetamines Screen U Benzodiazepines Scrn Urine Cocaine Screen U Marijuana (THC) Screen Ethyl Alcohol COVID-19 (ELIER) COVID-19 [employer] ([email or web address]) 07/11/21 07/11/21 07/11/21 18:28 18:53 18:53 MCV MCH MCHC RDW Plt Count MPV Immature Gran % (Auto) Neut % (Auto) Lymph % (Auto) [place] % (Auto) Eos % (Auto) Baso % (Auto) Lymph # (Auto) [place] # (Auto) Eos # (Auto) Baso # (Auto) Abs Immat Gran (auto) Absolute Neuts (auto) Absolute Nucleated RBC Nucleated RBC % (auto) VBG pH VBG pCO2 VBG pO2 VBG HCO3 VBG O2 Saturation VBG Base Excess Anion Gap 21 H Estim Creat Clear Calc 95.9 Estimated GFR > 60 POC Glucose Random Glucose 212 H Osmolality Lactic Acid Calcium 8.1 L Magnesium Total Bilirubin AST ALT Alkaline Phosphatase Total Creatine Kinase B-Natriuretic Peptide Total Protein Albumin Lipase Urine Color YELLOW Urine Appearance CLEAR Urine pH 5.5 Ur Specific [place] 1.015 Urine Protein NEG Urine Glucose (UA) NEG Urine Ketones >=80 Urine Blood NEG Urine Nitrite NEG Ur Leukocyte Esterase NEG Urine Opiates Screen Not Detected Urine Fentanyl Screen Not Detected Ur Barbiturates Screen POSITIVE H Ur Phencyclidine Scrn Not Detected Ur Amphetamines Screen Not Detected U Benzodiazepines Scrn Not Detected Urine Cocaine Screen Not Detected U Marijuana (THC) Screen Not Detected Ethyl Alcohol COVID-19 (ELIER) COVID-19 [employer] Com Imaging Radiologist's Impressions: Impressions Chest X-Ray 07/11/21 14:44 IMPRESSION: Small infiltrate at the right lung base similar to June 2021 exam. Abdomen/Pelvis CT 07/11/21 14:58 IMPRESSION: Bibasilar bronchopneumonia, right greater than left. This is improved from June 2021 exam. Acute right posterior 11th rib fracture. This is new in the interval from June 2021 exam. Diverticulosis of the colon. Small left renal cyst. Bilateral femoral head AVN. Fleischner guidelines were followed. Cervical Spine CT 07/11/21 14:58 IMPRESSION: Mild degenerative changes. No fracture or dislocation. Fleischner guidelines were followed. Head CT 07/11/21 14:58 IMPRESSION: No acute intracranial findings. Generalized atrophy and mild nonspecific periventricular white matter disease.. Assessment and Plan (1) Fall: Status: Acute (2) Closed rib fracture: Status: Acute (3) Rhabdomyolysis: Status: Acute (4) Acute hyponatremia: Status: Acute (5) Alcohol withdrawal: Status: Acute Plan 65-year-old male with a past medical history of hypertension, hyperlipidemia, diabetes, CHF, anxiety, depression, BPH, alcohol abuse, history of aortic sten osis presented to the hospital with a chief complaint of unwitnessed fall. Noted to have following conditions Unwitnessed fall: ? Syncope. Patient reported that he drank alcohol prior to that. Telemetry. Cycle cardiac enzymes. Echocardiogram. CT head, CT cervical spine showed no acute findings Nausea/ vomiting: Likely gastritis. CT abdomen showed no acute findings. Pepcid. Posterior 11th rib fracture: No evidence of pneumothorax. Breathing comfortably. Pain control. Severe hyponatremia: Patient's sodium levels on presentation noted to be 120. presumed to be secondary to low solute state. Nephrology was notified- recommended normal saline at 80 cc/hour Serial BMP Alcohol withdrawal: Seizure precautions. Continue thiamine folate and multivitamins. Monitor on CIWA protocol with Ativan. Mild rhabdo: Patient on IV fluids Cellulitis: Noted cellulitis on the right flank posteriorly and right thigh posterolaterally. Will keep the patient on IV vancomycin. CT abdomen showed no evidence of abscess. History of diastolic CHF: Patient on normal saline IV fluids currently. Monitor for signs of fluid overload. Currently stable. history of hypertension /hyperlipidemia: Continue home medications history of diabetes: Will keep the patient on insulin sliding scale and Lantus 30 units. Monitor fingerstick glucose DVT prophylaxis: Lovenox Code status: Full code Quality Stroke Does the patient have a stroke diagnosis?: No VTE Prior VTE?: No VTE Risk Level:: Medical - moderate - high VTE Device Contraindication: Treatment Not Indicated VTE Drug Contraindication: N/A - Med Ordered
[2021-07-11 23:23] LABS: Sodium 120 mmol/L (135-145)
[2021-07-11 23:26] LABS: Troponin-I High Sensitivity 29.1 ng/L (<3.5-35.0)
[2021-07-12] VITALS (7 sets, daily range): BP systolic 98–140; BP diastolic 56–78; PULSE 98–106; RESP 1–20; TEMP 36.6–37.1; O2SAT 94–96; BMI 34.0
[2021-07-12] MEDS: Enoxaparin Sodium 40 MG/0.4 ML SYRINGE SUBCUT ×2 (00:53→20:21)
[2021-07-12] MEDS: 0.9 % Sodium Chloride Flush 3 ML SYRINGE IVFLUSH (00:54)
[2021-07-12 01:47] LABS: Glucose, Whole Blood 241 mg/dL (60-115)
[2021-07-12] MEDS: Insulin Lispro 100 UNIT/ML 3 ML VIAL SUBCUT ×5 (01:58→20:22)
[2021-07-12 03:55] LABS: Anion Gap 18 (12-20); Blood Urea Nitrogen 16 mg/dL (9-16); Calcium 8.2 mg/dL (8.4-10.2); Carbon Dioxide 19 mmol/L (22-29); Chloride 93 mmol/L (96-108); Creatinine Clr Calc Pharmacy 75.2; Estimated Glomerular Filt Rate > 60; Glucose Random 260 mg/dL (60-115); Potassium 4.9 mmol/L (3.3-5.1); Sodium 125 mmol/L (135-145)
--- NOTE | 2021-07-12 05:01 | PC.NURSE ---
Pt admitted with sodium level of 120. NS @80 ordered. Repeat BMP at 0300 showed sodium level of 125. NS reduced to 50ml/h per MD. Repeat BMP ordered with morning labs.
--- NOTE | 2021-07-12 07:23 | PHA.PROG ---
Admission Date/Time: July 11, 2021 23:12 Indication Resp Infection Weight in k.6 kg Adjusted body weight in K.68 kg [place] body weight in K.4 kg Obesity Dosing Indication % IBW: 148 % Serum Creatinine - Last 168 Hours 07/11/21 07/11/21 07/12/21 16:43 18:28 03:18 Creatinine 0.87 0.90 1.13 Estimated CrCl and GFR - Last 168 Hours 07/11/21 07/11/21 07/12/21 16:43 18:28 03:18 Estim Creat Clear Calc 99.2 95.9 75.2 Estimated GFR > 60 > 60 > 60 Vancomycin Loading Dose: 2000 mg Current Vancomycin Dosing Regimen: 750 mg Q12H Date and Time for next Vancomycin Level to be drawn: 07/13 @ 1100 Pharmacist Comments on Vancomycin Plan: Patient is morbidly obese. Vancomycin levels can be unpredictable, therefore pharmacy will monitor carefully. Loading dose given in the ED 07/12 @ 0533. Will start Maintenance dose vancomycin 750 mg Q12H 07/13 @ 1300. Expected AUC 524 with a trough 16.8 Trough will be drawn prior to 4th dose. There is a slight increase of SCr over the past 12 hours. Pharmacy will continue to monitor renal function April Agosto PharmD Vancomycin dosing will take advantage of [employer] as a clinical decision support tool that uses Bayesian modeling to calculate individual patient's pharmacokinetic parameters and forecast the patient's drug concentration time course with the target goal AUC 24 range of 400 - 600 mg/L/hr.
[2021-07-12 07:40] LABS: Glucose, Whole Blood 184 mg/dL (60-115)
[2021-07-12] MEDS: Folic Acid 1 MG TABLET PO (08:29)
[2021-07-12] MEDS: Multivitamin TABLET 1 TAB PO (08:29)
[2021-07-12] MEDS: Thiamine HCL 100 MG TABLET PO (08:30)
[2021-07-12] MEDS: Famotidine 20 MG TABLET PO ×2 (08:30→20:22)
[2021-07-12] MEDS: Urea 15 GM POWDER 30 GM PO ×2 (08:31→20:22)
[2021-07-12] MEDS: LORazepam 1 MG TABLET PO ×2 (08:36→14:39)
--- NOTE | 2021-07-12 09:48 | MHC.CM.PN ---
PT ASLEEP ON APPROACH AND PROVIDES MINIMAL PARTICIPATION. PT REPORTS NOTHING HAS CHANGED SINCE HIS LAST ADMISSION PER PREVIOUS ADMISSION, PT LIVES ALONE AND IS INDEPENDENT WITH CARE PT HAS HOME OXYGEN HE WEARS AT NIGHT AND A NEBULIZER HE USES PRN PT HAS NO SERVICES PCP IS MIMI PERRY AND HE HAS A HCP ON FILE PT IS VACCINATED AGAINST COVID-19: 08/27/20 & 07/22/20 IMM DELIVERED CURRENT DC PLAN IS HOME WITH NO SERVICES TRANSPORTATION: SHUTTLE VS [facility]
--- NOTE | 2021-07-12 10:08 | PM.CNNEP ---
History of Present Illness Reason for Consult Consult date: 07/12/21 Reason for consult: Hyponatremia Chief Complaint Chief complaint: Hyponatremia History of Present Illness Narrative: 65-year-old male with a medical history of hypertension, hyperlipidemia, diabetes, history of diastolic CHF, aortic stenosis, history of aspiration pneumonia, diverticulitis; history of alcohol abuse presented to the hospital with a chief complaint of unwitnessed fall.? Patient was found on the floor by his friend and subsequently EMS was called in some to the hospital for further evaluation.? Patient reported that he fell down yesterday; had alcohol drink yesterday.? Also mentioned that he probably lost consciousness.? Denies any chest pain or palpitations.? Reports pain in his left flank.? Also complained of nausea. Denies any urinary symptoms.? Denies any cough or sputum production.? Reports that he drinks alcohol on a regular basis on Admission. pNa was 120 with serum Osm 263 Urine Osm not available Started on IV NS Na has increased to 125 as of 3:5 AM No further labs available Review of Systems Review of Systems Yes Unobtainable due to mental status PMFSH Past Medical History Medical History LAUREN (acute kidney injury) Alcohol abuse COPD (chronic obstructive pulmonary disease) Diabetes mellitus type 1 Diastolic dysfunction Diastolic heart failure Fall HLD (hyperlipidemia) Hypertension Nonrheumatic aortic (valve) stenosis Obesity Family History Family History Father Diabetes Mother Diabetes Social History Social History Household Members: None Housing: Apartment Do you presently have visiting nurse or other home services: No Alcohol intake: current Alcohol intake frequency: 3 or more drinks per day Alcohol type: hard liquor Patient Tobacco Use Status: Former Tobacco user Tobacco use type: Cigar e-Cigarette/Vaping Use: Currently Using Second Hand Smoke Exposure: No Use of substances other than those prescribed or required for medical reasons: No Currently Displaying Signs/Symptoms of Drug Intoxication Withdrawal: No Have you been hit, kicked, punched, or otherwise hurt by someone within the past year? If so, by whom?: No Do you feel safe in your current relationship?: No Current Relationship Is there a partner from a previous relationship who is making you feel unsafe now?: No Are you made to feel afraid or neglected: No Advance Directives: Yes Advance Directives on File: Yes Advance Directives Date on File: 10/11/20 Do you have thoughts of harming others: None Do you have a plan to hurt others: No Plan Recently lost weight without trying: No Nutrition Risks: No Nutritional Risk Poor oral hygiene: No service: No Current occupational status: unemployed and disabled Meds Allergies Allergy/AdvReac Type Severity Reaction Status Date / Time ENVIRONMENTAL Allergy Mild SNEEZING, Uncoded 07/11/21 10:06 WATERY EYES Active Medications: Current Medications Acetaminophen (Acetaminophen 325 Mg Tablet) 650 mg PO Q6H PRN PRN Reason: Pain, Mild (Pain Scale 1-3) Dextrose (Dextrose 50 % 25 Gm/50 Ml Vial) 25 gm IVPUSH Q15M PRN; Protocol PRN Reason: per Hypoglycemia Standing Ord. Enoxaparin Sodium (Enoxaparin Sodium 40 Mg/0.4 Ml Syringe) 40 mg SUBCUT BEDTIME [facility] Last Admin: 07/12/21 00:53 Dose: 40 mg Documented by: Famotidine (Famotidine 20 Mg Tablet) 20 mg PO BID [facility] Last Admin: 07/12/21 08:30 Dose: 20 mg Documented by: Folic Acid (Folic Acid 1 Mg Tablet) 1 mg PO DAILY [facility] Stop: 07/15/21 08:59 Last Admin: 07/12/21 08:29 Dose: 1 mg Documented by: Glucose (Glucose Gel 15 Gm Gel..Gram.) 15 gm PO Q15M PRN; Protocol PRN Reason: per Hypoglycemia Standing Ord. Sodium Chloride (Ns) 1,000 mls @ 80 mls/hr IVCONT .[id number] [facility] Last Infusion: 07/12/21 04:57 Dose: 50 mls/hr Documented by: Vancomycin HCl 750 mg/ Sodium (Chloride) 265 mls @ 265 mls/hr IV Q12H [facility] Insulin Glargine (Insulin Glargine,Hum.Rec.Anlog 100 Unit/Ml 10 Ml Vial) 30 unit SUBCUT BEDTIME [facility] Insulin Human Lispro (Insulin Lispro 100 Unit/Ml 3 Ml Vial) 0 unit SUBCUT QIDACHS [facility]; Protocol Last Admin: 07/12/21 08:28 Dose: 2 unit Documented by: Lorazepam (Lorazepam 1 Mg Tablet) 1 mg PO Q4H PRN PRN Reason: Breakthrough alcohol withdrawa Stop: 07/15/21 23:11 Last Admin: 07/12/21 08:36 Dose: 1 mg Documented by: Melatonin (Melatonin 3 Mg Tablet) 6 mg PO BEDTIME PRN PRN Reason: Insomnia Multivitamins/Vitamin C (Multivitamin Tablet) 1 tab PO DAILY [facility] Stop: 07/15/21 08:59 Last Admin: 07/12/21 08:29 Dose: 1 tab Documented by: Pharmacy Consult (Consult Rx Vancomycin Dosing) 1 each MISCELLANE DAILY PRN PRN Reason: Consult order Senna (Sennosides 8.6 Mg Tablet) 17.2 mg PO BEDTIME PRN PRN Reason: Constipation Sodium Chloride (0.9 % Sodium Chloride Flush 3 Ml Syringe) 3 ml IVFLUSH QSTNFT [facility] Last Admin: 07/12/21 00:54 Dose: 3 ml Documented by: Thiamine HCl (Thiamine Hcl 100 Mg Tablet) 100 mg PO DAILY [facility] Stop: 07/15/21 08:59 Last Admin: 07/12/21 08:30 Dose: 100 mg Documented by: Urea (Urea 15 Gm Powder) 30 gm PO BID [facility] Last Admin: 07/12/21 08:31 Dose: 30 gm Documented by: Home Medications Medication Instructions Recorded Confirmed Last Taken Type albuterol sulfate 1 amp INHALATION QID 12/29/20 07/11/21 Unknown History albuterol sulfate 90 mcg/actuation 2 puff INHALATION QID PRN 12/29/20 07/11/21 Unknown History aerosol inhaler blood sugar diagnostic (FreeStyle 12/29/20 02/04/21 Unknown History Lite Strips) folic acid 1 mg tablet 1 tab PO DAILY@1700 12/29/20 07/11/21 Unknown History insulin aspart U-100 100 unit/mL 15 unit SUBCUT TIDAC 12/29/20 07/11/21 Unknown History subcutaneous solution (Novolog U-100 Insulin aspart) lisinopril 10 mg tablet 1 tab PO DAILY 12/29/20 07/11/21 Unknown History simvastatin 20 mg tablet 1 tab PO BEDTIME 12/29/20 07/11/21 Unknown History thiamine HCl (vitamin B1) 100 mg 1 tab PO BEDTIME 12/29/20 07/11/21 Unknown History tablet aspirin 81 mg tablet,delayed 1 tab PO BEDTIME 02/04/21 07/11/21 Unknown History release buspirone 5 mg tablet 5 mg PO BID 02/04/21 07/11/21 Unknown History ramelteon 8 mg tablet 1 tab PO BEDTIME 05/12/21 07/11/21 Unknown History tamsulosin 0.4 mg capsule 1 cap PO DAILY@1700 05/12/21 07/11/21 Unknown History omeprazole 20 mg capsule,delayed 1 cap PO BID@0630,1630 06/01/21 07/11/21 Unknown History release fluticasone 250 mcg-salmeterol 50 1 puff INHALATION BID 06/22/21 07/11/21 Unknown History mcg/dose blistr powdr for inhalation (Lori Michelle) gabapentin 300 mg capsule 2 cap PO TID 06/24/21 07/11/21 Unknown History insulin glargine 100 unit/mL 45 unit SUBCUT BEDTIME 06/24/21 07/11/21 Unknown History subcutaneous solution (Lantus U-100 Insulin) Physical Exam Vital Signs: Last Vital Signs Temp 98.3 F 07/12/21 07:28 Pulse 98 07/12/21 07:28 Resp 20 07/12/21 07:28 BP 140/69 H 07/12/21 07:28 Pulse Ox 95 07/12/21 07:28 BMI result Body Mass Index 34.0 Const General: ill appearing Neck Neck: Yes supple and Yes no JVD Resp Auscultation: clear to auscultation bilaterally Cardio Jugular venous distension: no JVD Heart sounds: no gallops, no murmurs and no rubs GI Palpation (GI): Soft to palpation Auscultation: normal bowel sounds Skin General skin exam: no rashes or lesions noted Neuro General: moves all extremities and Unable to assess gait Gait exam (Neuro): Unable to assess gait Motor exam (neuro): no asterixis Results Lab Results Result Diagrams: 07/11/21 12:34 07/13/21 08:24 Lab results: Chemistry 07/11/21 07/11/21 07/11/21 16:43 18:28 22:53 Sodium 120 L* 120 L* 120 L* Potassium 4.3 4.1 Carbon Dioxide 16 L 18 L BUN 6 L D 6 L Creatinine 0.87 0.90 Calcium 8.3 L 8.1 L 03/05/22 03:18 Sodium 125 L Potassium 4.9 Carbon Dioxide 19 L BUN 16 D Creatinine 1.13 Calcium 8.2 L Hematology 07/11/21 12:34 WBC 12.3 H Hgb 12.7 L Plt Count 343 Urinalysis 07/11/21 18:53 Urine Color YELLOW Urine Appearance CLEAR Urine pH 5.5 Ur Specific [place] 1.015 Urine Protein NEG Urine Glucose (UA) NEG Urine Ketones >=80 Urine Blood NEG Urine Nitrite NEG Ur Leukocyte Esterase NEG Assessment and Plan (1) Hyponatremia: Status: Acute Plan Severe hyponatremia in a setting of Alcohol intake DDX: Beer potomania; Need urine Osm to determine this Non osmotic ADH release due to alcohol Cannot r/o polydipsia at this point, however, clinically seems unlikely Suggest Correct pNa at a rate of 0.5 mol/L/hr ; Not more than 8 - 10 mmol per 24 hrs Restrict PO water intake/hypotonic fluids Stat pNa ordered- further fluids based on the results Check pNa q 3- 4 hours If Na increases rapidsly ( > 130) , would start D5 W at 100 cc/hr and follow sodium Procedures Date of Service Date of Service: 07/12/21
--- NOTE | 2021-07-12 10:59 | P.PNIM_ITS ---
Subjective Subjective Date of Service: 07/13/21 Interval History: F/u on fall, hyponatremia, cellulitis, sodium level is getting better, no confusion, sodium improving Review of Systems no confusion, no fever, no withdrawal symptoms Physical Exam Vital Signs: Vital Signs: Last Vital Signs Temp 98.3 F 07/12/21 07:28 Pulse 98 07/12/21 07:28 Resp 20 07/12/21 07:28 BP 140/69 H 07/12/21 07:28 Pulse Ox 95 07/12/21 07:28 BMI result Body Mass Index 34.0 Const: Other: General: AO X 3, no acute distress Resp: CTA bilateral CVS: S1,S2,RRR GI: +BS, NT, no distention Skin: some erythema on right flank area, appear imflamatory and old Neuro: motor grossly intact Psych: appropriate affect Objective Data Active Medications Acetaminophen (Acetaminophen 325 Mg Tablet) 650 mg PO Q6H PRN PRN Reason: Pain, Mild (Pain Scale 1-3) Dextrose (Dextrose 50 % 25 Gm/50 Ml Vial) 25 gm IVPUSH Q15M PRN; Protocol PRN Reason: per Hypoglycemia Standing Ord. Enoxaparin Sodium (Enoxaparin Sodium 40 Mg/0.4 Ml Syringe) 40 mg SUBCUT BEDTIME [facility] Last Admin: 07/12/21 00:53 Dose: 40 mg Documented by: JOSEPH Famotidine (Famotidine 20 Mg Tablet) 20 mg PO BID [facility] Last Admin: 07/12/21 08:30 Dose: 20 mg Documented by: MARICEL Folic Acid (Folic Acid 1 Mg Tablet) 1 mg PO DAILY [facility] Stop: 07/15/21 08:59 Last Admin: 07/12/21 08:29 Dose: 1 mg Documented by: MARICEL Glucose (Glucose Gel 15 Gm Gel..Gram.) 15 gm PO Q15M PRN; Protocol PRN Reason: per Hypoglycemia Standing Ord. Vancomycin HCl 750 mg/ Sodium (Chloride) 265 mls @ 265 mls/hr IV Q12H [facility] Insulin Glargine (Insulin Glargine,Hum.Rec.Anlog 100 Unit/Ml 10 Ml Vial) 30 unit SUBCUT BEDTIME [facility] Insulin Human Lispro (Insulin Lispro 100 Unit/Ml 3 Ml Vial) 0 unit SUBCUT QIDACHS [facility]; Protocol Last Admin: 07/12/21 08:28 Dose: 2 unit Documented by: MARICEL Lorazepam (Lorazepam 1 Mg Tablet) 1 mg PO Q4H PRN PRN Reason: Breakthrough alcohol withdrawa Stop: 07/15/21 23:11 Last Admin: 07/12/21 08:36 Dose: 1 mg Documented by: MARICEL Melatonin (Melatonin 3 Mg Tablet) 6 mg PO BEDTIME PRN PRN Reason: Insomnia Multivitamins/Vitamin C (Multivitamin Tablet) 1 tab PO DAILY [facility] Stop: 07/15/21 08:59 Last Admin: 07/12/21 08:29 Dose: 1 tab Documented by: MARICEL Pharmacy Consult (Consult Rx Vancomycin Dosing) 1 each MISCELLANE DAILY PRN PRN Reason: Consult order Senna (Sennosides 8.6 Mg Tablet) 17.2 mg PO BEDTIME PRN PRN Reason: Constipation Sodium Chloride (0.9 % Sodium Chloride Flush 3 Ml Syringe) 3 ml IVFLUSH QSHIFT [facility] Last Admin: 07/12/21 00:54 Dose: 3 ml Documented by: JOSEPH Thiamine HCl (Thiamine Hcl 100 Mg Tablet) 100 mg PO DAILY [facility] Stop: 07/15/21 08:59 Last Admin: 07/12/21 08:30 Dose: 100 mg Documented by: MARICEL Urea (Urea 15 Gm Powder) 30 gm PO BID [facility] Last Admin: 07/12/21 08:31 Dose: 30 gm Documented by: MARICEL Labs CBC & Chem 7: 07/11/21 12:34 07/12/21 03:18 Labs: Laboratory Results - last 24 hr 07/11/21 07/11/21 07/11/21 12:34 12:34 12:34 MCV 86.0 MCH 31.1 MCHC 36.2 H RDW 13.2 Plt Count 343 MPV 8.5 L Immature Gran % (Auto) 1.2 H Neut % (Auto) 77.8 H Lymph % (Auto) 12.8 L [place] % (Auto) 7.2 Eos % (Auto) 0.7 Baso % (Auto) 0.3 Lymph # (Auto) 1.6 [place] # (Auto) 0.9 Eos # (Auto) 0.1 Baso # (Auto) 0.0 Abs Immat Gran (auto) 0.15 H Absolute Neuts (auto) 9.5 H Absolute Nucleated RBC 0.000 Nucleated RBC % (auto) 0.0 VBG pH VBG pCO2 VBG pO2 VBG HCO3 VBG O2 Saturation VBG Base Excess Anion Gap Estim Creat Clear Calc Estimated GFR POC Glucose Random Glucose Osmolality Lactic Acid 1.5 Calcium Magnesium Total Bilirubin AST ALT Alkaline Phosphatase Total Creatine Kinase B-Natriuretic Peptide 165 H Total Protein Albumin Lipase Urine Color Urine Appearance Urine pH Ur Specific [place] Urine Protein Urine Glucose (UA) Urine Ketones Urine Blood Urine Nitrite Ur Leukocyte Esterase Urine Opiates Screen Urine Fentanyl Screen Ur Barbiturates Screen Ur Phencyclidine Scrn Ur Amphetamines Screen U Benzodiazepines Scrn Urine Cocaine Screen U Marijuana (THC) Screen Ethyl Alcohol COVID-19 (ELIER) COVID-[address] [facility] 07/11/21 07/11/21 07/11/21 12:34 12:34 12:34 MCV MCH MCHC RDW Plt Count MPV Immature Gran % (Auto) Neut % (Auto) Lymph % (Auto) [place] % (Auto) Eos % (Auto) Baso % (Auto) Lymph # (Auto) [place] # (Auto) Eos # (Auto) Baso # (Auto) Abs Immat Gran (auto) Absolute Neuts (auto) Absolute Nucleated RBC Nucleated RBC % (auto) VBG pH VBG pCO2 VBG pO2 VBG HCO3 VBG O2 Saturation VBG Base Excess Anion Gap Estim Creat Clear Calc Estimated GFR POC Glucose Random Glucose Osmolality 263 L Lactic Acid Calcium Magnesium Total Bilirubin AST ALT Alkaline Phosphatase Total Creatine Kinase B-Natriuretic Peptide Total Protein Albumin Lipase Urine Color Urine Appearance Urine pH Ur Specific [place] Urine Protein Urine Glucose (UA) Urine Ketones Urine Blood Urine Nitrite Ur Leukocyte Esterase Urine Opiates Screen Urine Fentanyl Screen Ur Barbiturates Screen Ur Phencyclidine Scrn Ur Amphetamines Screen U Benzodiazepines Scrn Urine Cocaine Screen U Marijuana (THC) Screen Ethyl Alcohol < 10 COVID-19 (ELIER) Negative COVID-[address] [facility] See Note 07/11/21 07/11/21 07/11/21 16:43 16:44 18:28 MCV MCH MCHC RDW Plt Count MPV Immature Gran % (Auto) Neut % (Auto) Lymph % (Auto) [place] % (Auto) Eos % (Auto) Baso % (Auto) Lymph # (Auto) [place] # (Auto) Eos # (Auto) Baso # (Auto) Abs Immat Gran (auto) Absolute Neuts (auto) Absolute Nucleated RBC Nucleated RBC % (auto) VBG pH 7.33 VBG pCO2 27 VBG pO2 96 VBG HCO3 14 L VBG O2 Saturation 97.0 VBG Base Excess -9.4 Anion Gap 23 H 21 H Estim Creat Clear Calc 99.2 95.9 Estimated GFR > 60 > 60 POC Glucose Random Glucose 191 H 212 H Osmolality Lactic Acid Calcium 8.3 L 8.1 L Magnesium 1.9 Total Bilirubin 0.8 AST 32 D ALT 20 Alkaline Phosphatase 99 Total Creatine Kinase 587 H D B-Natriuretic Peptide Total Protein 6.1 L Albumin 3.6 Lipase 14 Urine Color Urine Appearance Urine pH Ur Specific [place] Urine Protein Urine Glucose (UA) Urine Ketones Urine Blood Urine Nitrite Ur Leukocyte Esterase Urine Opiates Screen Urine Fentanyl Screen Ur Barbiturates Screen Ur Phencyclidine Scrn Ur Amphetamines Screen U Benzodiazepines Scrn Urine Cocaine Screen U Marijuana (THC) Screen Ethyl Alcohol COVID-19 (ELIER) COVID-[address] Drive [facility] 07/11/21 07/11/21 07/12/21 18:53 18:53 01:43 MCV MCH MCHC RDW Plt Count MPV Immature Gran % (Auto) Neut % (Auto) Lymph % (Auto) [place] % (Auto) Eos % (Auto) Baso % (Auto) Lymph # (Auto) [place] # (Auto) Eos # (Auto) Baso # (Auto) Abs Immat Gran (auto) Absolute Neuts (auto) Absolute Nucleated RBC Nucleated RBC % (auto) VBG pH VBG pCO2 VBG pO2 VBG HCO3 VBG O2 Saturation VBG Base Excess Anion Gap Estim Creat Clear Calc Estimated GFR POC Glucose 241 H Random Glucose Osmolality Lactic Acid Calcium Magnesium Total Bilirubin AST ALT Alkaline Phosphatase Total Creatine Kinase B-Natriuretic Peptide Total Protein Albumin Lipase Urine Color YELLOW Urine Appearance CLEAR Urine pH 5.5 Ur Specific [place] 1.015 Urine Protein NEG Urine Glucose (UA) NEG Urine Ketones >=80 Urine Blood NEG Urine Nitrite NEG Ur Leukocyte Esterase NEG Urine Opiates Screen Not Detected Urine Fentanyl Screen Not Detected Ur Barbiturates Screen POSITIVE H Ur Phencyclidine Scrn Not Detected Ur Amphetamines Screen Not Detected U Benzodiazepines Scrn Not Detected Urine Cocaine Screen Not Detected U Marijuana (THC) Screen Not Detected Ethyl Alcohol COVID-19 ([facility]) COVID-[employer] 07/12/21 07/12/21 03:18 07:21 MCV MCH MCHC RDW Plt Count MPV Immature Gran % (Auto) Neut % (Auto) Lymph % (Auto) [place] % (Auto) Eos % (Auto) Baso % (Auto) Lymph # (Auto) [place] # (Auto) Eos # (Auto) Baso # (Auto) Abs Immat Gran (auto) Absolute Neuts (auto) Absolute Nucleated RBC Nucleated RBC % (auto) VBG pH VBG pCO2 VBG pO2 VBG HCO3 VBG O2 Saturation VBG Base Excess Anion Gap 18 Estim Creat Clear Calc 75.2 Estimated GFR > 60 POC Glucose 184 H Random Glucose 260 H Osmolality Lactic Acid Calcium 8.2 L Magnesium Total Bilirubin AST ALT Alkaline Phosphatase Total Creatine Kinase B-Natriuretic Peptide Total Protein Albumin Lipase Urine Color Urine Appearance Urine pH Ur Specific [place] Urine Protein Urine Glucose (UA) Urine Ketones Urine Blood Urine Nitrite Ur Leukocyte Esterase Urine Opiates Screen Urine Fentanyl Screen Ur Barbiturates Screen Ur Phencyclidine Scrn Ur Amphetamines Screen U Benzodiazepines Scrn Urine Cocaine Screen U Marijuana (THC) Screen Ethyl Alcohol COVID-19 ([facility]) COVID-19 Clin Com Assessment and Plan (1) Fall: Status: Acute (2) Acute hyponatremia: Status: Acute Plan 65-year-old male with a past medical history of hypertension, hyperlipidemia, diabetes, CHF, anxiety, depression, BPH, alcohol abuse, history of aortic stenosis presented to the hospital with a chief complaint of unwitnessed fall. Noted to have following conditions Unwitnessed fall probsbly Hyponatremia, no arrythmia noted. Correct underlying low sodium and PT eval before discharge. No need for Echo at this time. Nausea/ vomiting: Likely gastritis. CT abdomen showed no acute findings. Pepcid. Posterior 11th rib fracture from fall No evidence of pneumothorax. Breathing comfortably. Pain control. Severe hyponatremia: sec to beer potomania--avoid rapid correcton, sodium up to 125 from 120. Stop NS and do fluid restriction, sodium level every 4 hours and if level > 130 then add D5 as recommended by Nephrology At risk for Alcohol withdrawal: Seizure precautions. Continue thiamine folate and multivitamins. Monitor on CIWA protocol with Ativan. Cellulitis: Noted cellulitis on the right flank posteriorly and right thigh posterolaterally, he thinks it was due to lying in urine for 2 days. Will keep the patient on IV vancomycin. CT abdomen showed no evidence of abscess. Culture 1/2 coag negative satp, likely contamination History of chronic diastolic CHF: No acute decomensation, monitor history of hypertension /hyperlipidemia: Continue home medications history of diabetes: Will keep the patient on insulin sliding scale and Lantus 30 units. Monitor sugars DVT prophylaxis: Lovenox Code status: Full code Quality Stroke Does the patient have a stroke diagnosis?: No VTE Prior VTE?: No VTE Risk Level:: Medical - moderate - high VTE Device Contraindication: Treatment Not Indicated VTE Drug Contraindication: N/A - Med Ordered
[2021-07-12 11:06] LABS: Glucose, Whole Blood 292 mg/dL (60-115)
[2021-07-12] MEDS: vancomycin HCL 750 MG in 0.9 % Sodium Chloride 250 ML 265 MG IV (13:35)
[2021-07-12 16:19] LABS: Glucose, Whole Blood 212 mg/dL (60-115)
--- NOTE | 2021-07-12 19:03 | PHA.PROG ---
Admission Date/Time: July 11, 2021 23:12 Indication:CELLULITIS Weight in k.6 kg Adjusted body weight in Kg: [place] body weight in K.4 Obesity Dosing Indication % IBW:1.49 Serum Creatinine - Last 168 Hours 07/11/21 07/11/21 07/12/21 16:43 18:28 03:18 Creatinine 0.87 0.90 1.13 Estimated CrCl and GFR - Last 168 Hours 07/11/21 07/11/21 07/12/21 16:43 18:28 03:18 Estim Creat Clear Calc 99.2 95.9 75.2 Estimated GFR > 60 > 60 > 60 Vancomycin Loading Dose: 2000 MG 07/12/21 0058 Current Vancomycin Dosing Regimen: 750 MG Q12H 07/12/21@1331 per [facility] Vancomycin Monitoring using AUC goal of 400 - 600 range with trough as surrogate marker:524 Date and Time for next Vancomycin Level to be drawn: 1600 07/13/21 Pharmacist Comments on Vancomycin Plan: This pt has IV access issues. The dose given @1331 on 07/12/21 was still infusing at appx 1800 due to loss of access during infusion. Due to this issue, the midnight dose was adjusted to be 12 hrs from 6pm. The trough was also adjusted to be drawn 2 hrs before the 1800 dose to try and get a credible value. Please watch Scr as it did increase from 0.9 to 1.13. Vancomycin dosing will take advantage of MPVRX as a clinical decision support tool that uses Bayesian modeling to calculate individual patient's pharmacokinetic parameters and forecast the patient's drug concentration time course with the target goal AUC 24 range of 400 - 600 mg/L/hr.
[2021-07-12 20:16] LABS: Glucose, Whole Blood 313 mg/dL (60-115)
[2021-07-12] MEDS: Insulin Glargine,Hum.rec.anlog 100 UNIT/ML 10 ML VIAL 30 UNIT SUBCUT (20:22)
[2021-07-13 04:00] VITALS: BP 120/57; PULSE 95; RESP 20; O2SAT 94
[2021-07-13 07:17] LABS: Glucose, Whole Blood 214 mg/dL (60-115)
[2021-07-13] MEDS: Insulin Lispro 100 UNIT/ML 3 ML VIAL SUBCUT ×4 (07:40→21:42)
[2021-07-13] MEDS: Folic Acid 1 MG TABLET PO (07:42)
[2021-07-13] MEDS: Multivitamin TABLET 1 TAB PO (07:42)
[2021-07-13] MEDS: Thiamine HCL 100 MG TABLET PO (07:43)
[2021-07-13] MEDS: Urea 15 GM POWDER 30 GM PO (07:44)
[2021-07-13 08:00] VITALS: BP 144/65; PULSE 98; RESP 16; TEMP 36.6; O2SAT 95
--- NOTE | 2021-07-13 08:21 | P.PNIM_ITS ---
Subjective Subjective Date of Service: 07/13/21 Interval History: F/u on fall, hyponatremia, cellulitis, sodium level is getting better, no confusion, sodium improving now 131, has some pain in the rib from known broken rib Review of Systems no confusion, no fever, no withdrawal symptoms Physical Exam Vital Signs: Vital Signs: Last Vital Signs Temp 97.8 F 07/13/21 08:00 Pulse 98 07/13/21 08:00 Resp 16 07/13/21 08:00 BP 144/65 H 07/13/21 08:00 Pulse Ox 95 07/13/21 08:00 BMI result Body Mass Index 34.0 Const: Other: General: AO X 3, no acute distress Resp: CTA bilateral CVS: S1,S2,RRR GI: +BS, NT, no distention Skin: some erythema on right flank area, appear imflamatory and old Neuro: motor grossly intact Psych: appropriate affect Objective Data Active Medications Acetaminophen (Acetaminophen 325 Mg Tablet) 650 mg PO Q6H PRN PRN Reason: Pain, Mild (Pain Scale 1-3) Dextrose (Dextrose 50 % 25 Gm/50 Ml Vial) 25 gm IVPUSH Q15M PRN; Protocol PRN Reason: per Hypoglycemia Standing Ord. Enoxaparin Sodium (Enoxaparin Sodium 40 Mg/0.4 Ml Syringe) 40 mg SUBCUT BEDTIME [facility] [place] Last Admin: 07/12/21 20:21 Dose: 40 mg Documented by: JENNIFER Famotidine (Famotidine 20 Mg Tablet) 20 mg PO BID [facility] [place] Last Admin: 07/13/21 07:46 Dose: Not Given Documented by: MARICEL Non-Admin Reason: Patient Refused Folic Acid (Folic Acid 1 Mg Tablet) 1 mg PO DAILY [facility] [place] Stop: 07/15/21 08:59 Last Admin: 07/13/21 07:42 Dose: 1 mg Documented by: MARICEL Glucose (Glucose Gel 15 Gm Gel..Gram.) 15 gm PO Q15M PRN; Protocol PRN Reason: per Hypoglycemia Standing Ord. Insulin Glargine (Insulin Glargine,Hum.Rec.Anlog 100 Unit/Ml 10 Ml Vial) 30 unit SUBCUT BEDTIME [facility] [place] Last Admin: 07/12/21 20:22 Dose: 30 unit Documented by: JENNIFER Insulin Human Lispro (Insulin Lispro 100 Unit/Ml 3 Ml Vial) 0 unit SUBCUT QIDACHS [facility] [place]; Protocol Last Admin: 07/13/21 07:40 Dose: 4 unit Documented by: MARICEL Lorazepam (Lorazepam 1 Mg Tablet) 1 mg PO Q4H PRN PRN Reason: Breakthrough alcohol withdrawa Stop: 07/15/21 23:11 Last Admin: 07/12/21 14:39 Dose: 1 mg Documented by: MARICEL Melatonin (Melatonin 3 Mg Tablet) 6 mg PO BEDTIME PRN PRN Reason: Insomnia Multivitamins/Vitamin C (Multivitamin Tablet) 1 tab PO DAILY [facility] [place] Stop: 07/15/21 08:59 Last Admin: 07/13/21 07:42 Dose: 1 tab Documented by: MARICEL Pharmacy Consult (Consult Rx Vancomycin Dosing) 1 each MISCELLANE DAILY PRN PRN Reason: Consult order Senna (Sennosides 8.6 Mg Tablet) 17.2 mg PO BEDTIME PRN PRN Reason: Constipation Sodium Chloride (0.9 % Sodium Chloride Flush 3 Ml Syringe) 3 ml IVFLUSH QSHIFT [facility] [place] Last Admin: 07/13/21 07:46 Dose: Not Given Documented by: MARICEL Non-Admin Reason: No Access Thiamine HCl (Thiamine Hcl 100 Mg Tablet) 100 mg PO DAILY [facility] [place] Stop: 07/15/21 08:59 Last Admin: 07/13/21 07:43 Dose: 100 mg Documented by: MARICEL Urea (Urea 15 Gm Powder) 30 gm PO BID [facility] [place] Last Admin: 07/13/21 07:44 Dose: 30 gm Documented by: MARICEL Labs CBC & Chem 7: 07/11/21 12:34 07/13/21 08:24 Labs: Laboratory Results - last 24 hr 07/11/21 07/12/21 07/12/21 16:43 11:03 16:10 Anion Gap 23 H Estim Creat Clear Calc 99.2 Estimated GFR > 60 POC Glucose 292 H 212 H Random Glucose 191 H Calcium 8.3 L Magnesium 1.9 Total Bilirubin 0.8 AST 32 D ALT 20 Alkaline Phosphatase 99 Total Creatine Kinase 587 H D Total Protein 6.1 L Albumin 3.6 Lipase 14 07/12/21 07/13/21 20:04 07:04 Anion Gap Estim Creat Clear Calc Estimated GFR POC Glucose 313 H 214 H Random Glucose Calcium Magnesium Total Bilirubin AST ALT Alkaline Phosphatase Total Creatine Kinase Total Protein Albumin Lipase Microbiology Microbiology Results: Microbiology 07/11/21 16:43 Blood Culture - Preliminary Blood - Venous No growth after 24 hours. 07/11/21 12:33 Blood Culture - Preliminary Blood - Venous Prelim: GPC Gram Stain only Assessment and Plan (1) Fall: Status: Acute (2) Acute hyponatremia: Status: Acute Plan 65-year-old male with a past medical history of hypertension, hyperlipidemia, diabetes, CHF, anxiety, depression, BPH, alcohol abuse, history of aortic stenosis presented to the hospital with a chief complaint of unwitnessed fall. Noted to have following conditions Unwitnessed fall probsbly Hyponatremia, no arrythmia noted. Correct underlying low sodium and PT eval before discharge. No need for Echo at this time. Nausea/ vomiting: Likely gastritis. CT abdomen showed no acute findings. PPI Posterior 11th rib fracture from fall No evidence of pneumothorax. Breathing comfortably. Pain control with Oxycodone Severe hyponatremia: sec to beer potomania--avoid rapid correcton, sodium up to 125 from 120. Stop NS and do fluid restriction, sodium up by 5 point last 24 ho urs, so no changes in mangement, continue fluid restriction At risk for Alcohol withdrawal: Seizure precautions. Continue thiamine folate and multivitamins. Monitor on CIWA protocol with Ativan. Cellulitis: Noted cellulitis on the right flank posteriorly and right thigh posterolaterally, he thinks it was due to lying in urine for 2 days. Will keep the patient on IV vancomycin until culture sensitivity is available. CT abdomen showed no evidence of abscess. Culture 1/ 2 gram positive cocci, , likely coag neg staph contamination but will wait on sensitivity History of chronic diastolic CHF: No acute decomensation, monitor history of hypertension /hyperlipidemia: Continue home medications history of diabetes: Will keep the patient on insulin sliding scale and Lantus 30 units. Monitor sugars No indication for tele at this time. Need for inpt; bactermia on IV vanco until sensitivity known DVT prophylaxis: Lovenox Code status: Full code Quality Stroke Does the patient have a stroke diagnosis?: No VTE Prior VTE?: No VTE Risk Level:: Medical - moderate - high VTE Device Contraindication: Treatment Not Indicated VTE Drug Contraindication: N/A - Med Ordered
[2021-07-13 09:01] LABS: Anion Gap 14 (12-20); Blood Urea Nitrogen 35 mg/dL (9-16); Calcium 8.4 mg/dL (8.4-10.2); Carbon Dioxide 25 mmol/L (22-29); Chloride 97 mmol/L (96-108); Creatinine Clr Calc Pharmacy 98.9; Estimated Glomerular Filt Rate > 60; Glucose Random 287 mg/dL (60-115); Potassium 4.5 mmol/L (3.3-5.1); Sodium 131 mmol/L (135-145)
--- NOTE | 2021-07-13 10:14 | PM.PNNEP ---
Subjective Subjective Date of Service: 09/01/21 Interval history: F/u on fall, hyponatremia, cellulitis, sodium level is getting better, no confusion, sodium improving now 131, has some pain in the rib from known broken rib More awake today Na at 131 Physical Exam Vital Signs: Vital Signs: Last Vital Signs Temp 97.8 F 07/13/21 08:00 Pulse 98 07/13/21 08:00 Resp 16 07/13/21 08:00 BP 144/65 H 07/13/21 08:00 Pulse Ox 95 07/13/21 08:00 BMI result Body Mass Index 34.0 Const: General: ill appearing Neck: Neck: Yes supple and Yes no JVD Resp: Auscultation: clear to auscultation bilaterally Cardio: Jugular venous distension: no JVD Heart sounds: no gallops, no murmurs and no rubs GI: Palpation (GI): Soft to palpation Auscultation: normal bowel sounds Skin: General skin exam: no rashes or lesions noted Neuro: General: moves all extremities and Unable to assess gait Gait exam (Neuro): Unable to assess gait Motor exam (neuro): no asterixis Objective Data Labs CBC & Chem 7: 07/11/21 12:34 07/15/21 12:53 Labs: Laboratory Results - last 24 hr 07/11/21 07/12/21 07/12/21 16:43 11:03 16:10 Sodium 120 L* Potassium 4.3 Chloride 85 L Carbon Dioxide 16 L Anion Gap 23 H BUN 6 L D Creatinine 0.87 Estim Creat Clear Calc 99.2 Estimated GFR > 60 POC Glucose 292 H 212 H Random Glucose 191 H Calcium 8.3 L Magnesium 1.9 Total Bilirubin 0.8 AST 32 D ALT 20 Alkaline Phosphatase 99 Total Creatine Kinase 587 H D Total Protein 6.1 L Albumin 3.6 Lipase 14 07/12/21 07/13/21 07/13/21 20:04 07:04 08:24 Sodium 131 L Potassium 4.5 Chloride 97 Carbon Dioxide 25 Anion Gap 14 BUN 35 H D Creatinine 0.86 Estim Creat Clear Calc 98.9 Estimated GFR > 60 POC Glucose 313 H 214 H Random Glucose 287 H Calcium 8.4 Magnesium Total Bilirubin AST ALT Alkaline Phosphatase Total Creatine Kinase Total Protein Albumin Lipase Microbiology Microbiology Results: Microbiology 07/11/21 16:43 Blood - Venous Blood Culture - Preliminary No growth after 24 hours. 03/04/22 12:33 Blood - Venous Blood Culture - Final Coag negative Staphylococcus Procedures Date of Service Date of Service: 07/13/21 Assessment & Plan Assessment and plan (1) Hyponatremia: Status: Acute Plan Severe hyponatremia in a setting of Alcohol intake DDX: Beer potomania; Need urine Osm to determine this Non osmotic ADH release due to alcohol Cannot r/o polydipsia at this point, however, clinically seems unlikely Suggest Correct pNa at a rate of 0.5 mol/L/hr ; Not more than 8 - 10 mmol per 24 hrs Restrict PO water intake/hypotonic fluids Check pNa q 6-8 hours Rate of correction acceptable thus far Decreased Urea Powder to 30gm D today and can stop on 07/14/21 (Wednesday if Na > 133) Time Spent With Patient Time: Total time spent is greater than 50% in coordination of care (as documented) at patient's floor/unit and/or counseling patient: Time with patient: 25 - 35 minutes Progress Note: Quality Stroke Does the patient have a stroke diagnosis?: No
[2021-07-13 10:41] LABS: Vancomycin Random 4.9 mcg/mL (15-20)
--- NOTE | 2021-07-13 10:49 | HE.PHANOTE ---
Vancomycin has not been given about 24 hours since patient pulled his line. RN has not been able to get a new line in. Recommended to Dr. Tate to switch to PO ABX for his cellulitis. Recommended Doxycycline [address] Tate agreed and new order was entered April Agosto, Tasneem
[2021-07-13 11:22] LABS: Glucose, Whole Blood 220 mg/dL (60-115)
[2021-07-13 11:30] VITALS: PULSE 85; RESP 20; TEMP 36.6; O2SAT 93
[2021-07-13] MEDS: oxyCODONE HCl Immed Release 5 MG TABLET PO ×3 (12:40→21:46)
[2021-07-13 15:00] VITALS: BP 141/63; PULSE 92; RESP 18; TEMP 36.2; O2SAT 97
[2021-07-13 16:14] LABS: Glucose, Whole Blood 339 mg/dL (60-115)
[2021-07-13] MEDS: LORazepam 1 MG TABLET PO ×2 (16:49→21:46)
[2021-07-13 21:39] LABS: Glucose, Whole Blood 243 mg/dL (60-115)
[2021-07-13] MEDS: Famotidine 20 MG TABLET PO (21:42)
[2021-07-13] MEDS: Enoxaparin Sodium 40 MG/0.4 ML SYRINGE SUBCUT (21:42)
[2021-07-13] MEDS: Insulin Glargine,Hum.rec.anlog 100 UNIT/ML 10 ML VIAL 30 UNIT SUBCUT (21:42)
[2021-07-13 23:38] VITALS: BP 95/54; PULSE 87; RESP 18; TEMP 36.1; O2SAT 95
[2021-07-14 03:26] VITALS: BP 103/52; PULSE 62; RESP 18; TEMP 36.1; O2SAT 95
[2021-07-14] MEDS: oxyCODONE HCl Immed Release 5 MG TABLET PO ×2 (03:32→20:29)
[2021-07-14 07:40] LABS: Glucose, Whole Blood 189 mg/dL (60-115)
[2021-07-14 07:46] VITALS: BP 134/72; PULSE 87; RESP 20; TEMP 36.6
[2021-07-14] MEDS: Famotidine 20 MG TABLET PO ×2 (08:08→20:28)
[2021-07-14] MEDS: Folic Acid 1 MG TABLET PO (08:08)
[2021-07-14] MEDS: Thiamine HCL 100 MG TABLET PO ×2 (08:08→20:28)
[2021-07-14] MEDS: Multivitamin TABLET 1 TAB PO (08:08)
[2021-07-14] MEDS: Urea 15 GM POWDER 30 GM PO (08:09)
[2021-07-14] MEDS: Insulin Lispro 100 UNIT/ML 3 ML VIAL SUBCUT ×4 (08:09→20:35)
--- NOTE | 2021-07-14 09:40 | P.PNIM_ITS ---
Subjective Subjective Date of Service: 07/14/21 Interval History: F/u on fall, hyponatremia, cellulitis, sodium level is getting better, no confusion, sodium improving now 131, pain is controlled, no other complaint Review of Systems no confusion, no fever, no withdrawal symptoms Physical Exam Vital Signs: Vital Signs: Last Vital Signs Temp 97.8 F 07/14/21 07:46 Pulse 87 07/14/21 07:46 Resp 20 07/14/21 07:46 BP 134/72 07/14/21 07:46 Pulse Ox 95 07/14/21 03:26 BMI result Body Mass Index 34.0 Const: Other: General: AO X 3, no acute distress Resp: CTA bilateral CVS: S1,S2,RRR GI: +BS, NT, no distention Skin: some erythema on right flank area, appear imflamatory and old Neuro: motor grossly intact Psych: appropriate affect Objective Data Active Medications Acetaminophen (Acetaminophen 325 Mg Tablet) 650 mg PO Q6H PRN PRN Reason: Pain, Mild (Pain Scale 1-3) Dextrose (Dextrose 50 % 25 Gm/50 Ml Vial) 25 gm IVPUSH Q15M PRN; Protocol PRN Reason: per Hypoglycemia Standing Ord. Doxycycline Hyclate (Doxycycline Hyclate 100 Mg Tablet) 100 mg PO BID [facility] Last Admin: 07/14/21 08:08 Dose: 100 mg Documented by: DEONTE Enoxaparin Sodium (Enoxaparin Sodium 40 Mg/0.4 Ml Syringe) 40 mg SUBCUT BEDTIME [facility] Last Admin: 07/13/21 21:42 Dose: 40 mg Documented by: ESA Famotidine (Famotidine 20 Mg Tablet) 20 mg PO BID [facility] Last Admin: 07/14/21 08:08 Dose: 20 mg Documented by: DEONTE Folic Acid (Folic Acid 1 Mg Tablet) 1 mg PO DAILY [facility] Stop: 07/15/21 08:59 Last Admin: 07/14/21 08:08 Dose: 1 mg Documented by: DEONTE Glucose (Glucose Gel 15 Gm Gel..Gram.) 15 gm PO Q15M PRN; Protocol PRN Reason: per Hypoglycemia Standing Ord. Insulin Glargine (Insulin Glargine,Hum.Rec.Anlog 100 Unit/Ml 10 Ml Vial) 30 unit SUBCUT BEDTIME [facility] Last Admin: 07/13/21 21:42 Dose: 30 unit Documented by: ESA Insulin Human Lispro (Insulin Lispro 100 Unit/Ml 3 Ml Vial) 0 unit SUBCUT [facility]; Protocol Last Admin: 07/14/21 08:09 Dose: 2 unit Documented by: DEONTE Lorazepam (Lorazepam 1 Mg Tablet) 1 mg PO Q4H PRN PRN Reason: Breakthrough alcohol withdrawa Stop: 07/15/21 23:11 Last Admin: 07/13/21 21:46 Dose: 1 mg Documented by: ESA Melatonin (Melatonin 3 Mg Tablet) 6 mg PO BEDTIME PRN PRN Reason: Insomnia Multivitamins/Vitamin C (Multivitamin Tablet) 1 tab PO DAILY [facility] Stop: 07/15/21 08:59 Last Admin: 07/14/21 08:08 Dose: 1 tab Documented by: DEONTE Oxycodone HCl (Oxycodone Hcl Immed Release 5 Mg Tablet) 5 mg PO Q4H PRN PRN Reason: Pain, Severe (Pain Scale 7-10) Last Admin: 07/14/21 03:32 Dose: 5 mg Documented by: ESA Pharmacy Consult (Consult Rx Vancomycin Dosing) 1 each MISCELLANE DAILY PRN PRN Reason: Consult order Senna (Sennosides 8.6 Mg Tablet) 17.2 mg PO BEDTIME PRN PRN Reason: Constipation Sodium Chloride (0.9 % Sodium Chloride Flush 3 Ml Syringe) 3 ml IVFLUSH [facility] Last Admin: 07/14/21 08:22 Dose: Not Given Documented by: DEONTE Non-Admin Reason: No Access Thiamine HCl (Thiamine Hcl 100 Mg Tablet) 100 mg PO DAILY [facility] Stop: 07/15/21 08:59 Last Admin: 07/14/21 08:08 Dose: 100 mg Documented by: DEONTE Urea (Urea 15 Gm Powder) 30 gm PO DAILY [facility] Last Admin: 07/14/21 08:09 Dose: 30 gm Documented by: DEONTE Labs CBC & Chem 7: 07/11/21 12:34 07/13/21 08:24 Labs: Laboratory Results - last 24 hr 07/13/21 07/13/21 07/13/21 10:01 11:09 16:06 POC Glucose 220 H 339 H Random Vancomycin 4.9 L 07/13/21 07/14/21 21:36 07:30 POC Glucose 243 H 189 H Random Vancomycin Microbiology Microbiology Results: Microbiology 07/11/21 16:43 Blood Culture - Preliminary Blood - Venous No growth after 48 hours. 07/11/21 12:33 Blood Culture - Final Blood - Venous Coag negative Staphylococcus Assessment and Plan (1) Fall: Status: Acute (2) Acute hyponatremia: Status: Acute Plan 65-year-old male with a past medical history of hypertension, hyperlipidemia, diabetes, CHF, anxiety, depression, BPH, alcohol abuse, history of aortic stenosis presented to the hospital with a chief complaint of unwitnessed fall. Noted to have following conditions Unwitnessed fall probsbly Hyponatremia, no arrythmia noted. Correct underlying low sodium and PT eval before discharge. No need for Echo at this time. Nausea/ vomiting: Likely gastritis. CT abdomen showed no acute findings. PPI Posterior 11th rib fracture from fall No evidence of pneumothorax. Breathing comfortably. Pain control with Oxycodone Severe hyponatremia: sec to beer potomania--avoid rapid correcton, sodium up to 125 from 120. Stop NS and do fluid restriction, sodium up by 5 point last 24 hours, so no changes in mangement, continue fluid restriction At risk for Alcohol withdrawal: Seizure precautions. Continue thiamine folate and multivitamins. Monitor on CIWA protocol with Ativan. Cellulitis: Noted cellulitis on the right flank posteriorly and right thigh posterolaterally, he thinks it was due to lying in urine for 2 days. Will keep the patient on IV vancomycin until culture sensitivity is available. CT abdomen showed no evidence of abscess. 1/2 Coag negative Staph is contaminiation. Doesn't want IV in so changed Vancomycin to Doxycyline and to treat for 7 days History of chronic diastolic CHF: No acute decomensation, monitor history of hypertension /hyperlipidemia: Continue home medications history of diabetes: Continue insulin sliding scale and Lantus 30 units. M onitor sugars PT eval today, he will probabluy refuse rehab. DVT prophylaxis: Lovenox Code status: Full code Quality Stroke Does the patient have a stroke diagnosis?: No VTE Prior VTE?: No VTE Risk Level:: Medical - moderate - high VTE Device Contraindication: Treatment Not Indicated VTE Drug Contraindication: N/A - Med Ordered
--- NOTE | 2021-07-14 10:04 | P.CDIC_ITS ---
CDI Concurrent Query Documentation Clarification: PHYSICIAN'S DOCUMENTATION REQUEST Date of Query: 07/14/21 1004 Patient Name: Kenneth Aragon Admit Date: 07/11/21 Dear Doctor, A review of the medical record indicates additional documentation may be needed. Please review below and update the documentation accordingly. Clinical Indicators: Risk Factors/Clinical Indicators/Treatments PN 3/7 - N/V likely gastritis. CT abdomen showed no acute findings. PPI Clarify which of the following accurately represents the acuity of the [Gastritis]. Possible options might include: * Acute * Acute on chronic * Exacerbated/Decompensated * Compensated * Chronic stable condition * Remission * Other ? please specify * Unable to determine Use of terms such as suspected, likely, concern for, or probable (associated with a specific diagnosis that is being evaluated, monitored, or treated as if it exists) are acceptable and can be coded in the inpatient setting, when documented at the time of discharge. Thank you, Myranda Degroot [facility], CDIS Extension: [id number] Please use your independent medical judgment in providing your response. THIS QUERY IS PART OF THE PERMANENT MEDICAL RECORD
[2021-07-14 10:49] VITALS: BP 155/67; PULSE 79; RESP 20; TEMP 36.5; O2SAT 93
[2021-07-14 11:12] LABS: Glucose, Whole Blood 164 mg/dL (60-115)
--- NOTE | 2021-07-14 11:58 | P.CDIC_ITS ---
CDI Concurrent Query Documentation Clarification: PHYSICIAN'S DOCUMENTATION REQUEST Date of Query: 07/14/21 1159 Patient Name: Kenneth Aragon Admit Date: 07/11/21 Dear Doctor, A review of the medical record indicates additional documentation may be needed. Please review below and update the documentation accordingly. Clinical Indicators: Risk Factors/Clinical Indicators/Treatments PN: Rhabdomyolysis, s/p falling rt 11th rib fracture. Found on the floor at home and was there since yesterday, unable to get up. Total creatine kinase 1256 H Which, if any, of the following is a likely etiology of the above abnormalities and treatment rendered: Traumatic rhabdomyolysis * Non-traumatic rhabdomyolysis * Other etiology ? please specify * Unable to determine Use of terms such as suspected, likely, concern for, or probable (associated with a specific diagnosis that is being evaluated, monitored, or treated as if it exists) are acceptable and can be coded in the inpatient setting, when documented at the time of discharge. Thank you, Myranda Degroot [facility], CDIS Extension: [phone] Please use your independent medical judgment in providing your response. THIS QUERY IS PART OF THE PERMANENT MEDICAL RECORD
[2021-07-14 15:29] VITALS: BP 103/61; PULSE 95; RESP 19; TEMP 37.1; O2SAT 96
[2021-07-14 16:00] LABS: Glucose, Whole Blood 172 mg/dL (60-115)
[2021-07-14] MEDS: LORazepam 1 MG TABLET PO (17:14)
[2021-07-14 19:18] VITALS: BP 115/80; PULSE 84; RESP 18; TEMP 37.1; O2SAT 97
[2021-07-14 19:37] LABS: Glucose, Whole Blood 229 mg/dL (60-115)
[2021-07-14] MEDS: Gabapentin 300 MG CAPSULE 600 MG PO (20:28)
[2021-07-14] MEDS: Atorvastatin Calcium 10 MG TABLET PO (20:28)
[2021-07-14] MEDS: Enoxaparin Sodium 40 MG/0.4 ML SYRINGE SUBCUT (20:28)
[2021-07-14] MEDS: Aspirin Enteric Coated 81 MG TABLET.DR PO (20:28)
[2021-07-14] MEDS: Insulin Glargine,Hum.rec.anlog 100 UNIT/ML 10 ML VIAL 30 UNIT SUBCUT (20:29)
[2021-07-15] VITALS (7 sets, daily range): BP systolic 113–131; BP diastolic 58–85; PULSE 78–112; RESP 18–20; TEMP 36.4–37.1; O2SAT 94–98
[2021-07-15] MEDS: Omeprazole 20 MG CAPSULE.DR PO ×2 (06:03→16:01)
[2021-07-15 07:44] LABS: Glucose, Whole Blood 139 mg/dL (60-115)
[2021-07-15] MEDS: Albuterol Sulfate 90 MCG 8 GM INHALER 2 PUFF INHALE ×2 (08:00→12:03)
[2021-07-15] MEDS: lisinopriL 10 MG TABLET PO (09:02)
[2021-07-15] MEDS: Urea 15 GM POWDER 30 GM PO (09:02)
[2021-07-15] MEDS: busPIRone HCl 5 MG TABLET PO (09:02)
[2021-07-15] MEDS: Gabapentin 300 MG CAPSULE 600 MG PO ×2 (09:02→15:59)
[2021-07-15] MEDS: Famotidine 20 MG TABLET PO (09:02)
[2021-07-15] MEDS: oxyCODONE HCl Immed Release 5 MG TABLET PO (09:14)
[2021-07-15 11:35] LABS: Glucose, Whole Blood 266 mg/dL (60-115)
--- NOTE | 2021-07-15 11:52 | PC.NURSE ---
Patient refusing cardiac monitoring. Patient aware of need, verbalized understanding. Dr. Ron made aware. Per okay for cardiac monitoring to be d/c'd at this time.
[2021-07-15] MEDS: Insulin Lispro 100 UNIT/ML 3 ML VIAL SUBCUT ×2 (11:58→17:14)
--- NOTE | 2021-07-15 12:40 | P.DS_ITS ---
DS: Providers Provider Date of Service: 07/15/21 Date of admission: 07/11/21 23:12 Primary care physician: Jaylen Cummings MD Consults: 07/11/21 23:15 Consult to Nephrology Routine Consulting Provider: Scar Bowie Reason for consultation: Hyponatremia DS: Diagnosis Discharge Diagnosis (1) Fall: Status: Acute (2) Acute hyponatremia: Status: Acute DS: Summary Hospital Course Hospital Course: 65-year-old male with a past medical history of hypertension, hyperlipidemia, diabetes, history of diastolic CHF, aortic stenosis, history of aspiration pneumonia, diverticulitis; history of alcohol abuse presented to the hospital with a chief complaint of unwitnessed fall.? Patient was found on the floor by his friend and subsequently EMS was called in some to the hospital for further evaluation.? Patient reported that he fell down yesterday; had alcohol drink yesterday.? Also mentioned that he probably lost consciousness.? Denies any chest pain or palpitations.? Reports pain in his left flank.? Also complained of nausea. Denies any urinary symptoms.? Denies any cough or sputum production.? Reports that he drinks alcohol on a regular basis Review of all other systems is negative except mentioned above. Hospital [facility]:Patient came with fall, hyponatremia, cellulitis: Subsequently treated cellulitis with IV antibiotics, hyponatremia treated with fluid restriction and urea: Cellulitis improved with p.o. antibiotic, complete the course. Hyponatremia -possible beer potomania to be improving as well as cellulitis also improving. Fluid restriction 1800 mL as per Nephrology, monitor BMP in 1 week and outpatient follow-up with Nephrology. patient was also on ativan because of risk of alcohol withdrawal-patient does not exhibit any signs of alcohol withdrawal currently. Stop Ativan. Rib fracture : Patient did not endorse much pain seems fine. Rhabdomyolysis probably related to fall and seems improved. Nausea/vomiting also improved-thought to be related to gastritis, added omeprazole. Patient will benefit from less than 30 day hospital stay. Above management discussed with the patient in detail length he understand and in agreement with the above plan, time spent 50 minutes and 50% time spent on counseling. Significant findings: As above. Procedures performed: None. Treatment and response: As above. Complications: None. Time Spent with Patient Time attestation: Total time spent providing and/or coordinating discharge services: Discharge coordination time: Greater than 30 minutes Quality: Stroke Does the patient have a stroke diagnosis?: No Physical Exam Vital Signs: Vital Signs: Last Vital Signs Temp 98.1 F 07/15/21 11:13 Pulse 92 07/15/21 12:03 Resp 20 07/15/21 12:03 BP 117/59 L 07/15/21 11:13 Pulse Ox 95 07/15/21 11:13 BMI result Body Mass Index 34.0 Appearance: Alert.? Oriented X3.?? Eyes: Pupils equal, round and reactive to light.? Sclera nonicteric.? ENT: Pharynx normal.? Moist mucous membranes. cvs: rrr, [id number]. res: clear to auscultation ,no rhonchii or wheezing abd: no rebound or guarding ,nt, bs present. ext pulses present , no cyanosis . neuro: axo3 , nonfocal. DS: Data Data Completed and Pending Completed studies during hospitalization [Text1]: Procedures Detoxification Services for Substance Abuse Treatment (06/22/21) Insertion of Infusion Device into Superior Vena Cava, Percutaneous Approach (06/01/21) Introduction of Remdesivir Anti-infective into Peripheral Vein, Percutaneous Approach, [facility] [employer] (06/01/21) Labs on day of discharge: Laboratory Results - last 24 hr 07/14/21 07/14/21 07/15/21 15:34 19:21 07:17 POC Glucose 172 H 229 H 139 H 07/15/21 11:15 POC Glucose 266 H Preliminary micro results at discharge 07/11/21 16:43 Blood Culture - Preliminary Blood - Venous No growth after 48 hours. Discharge Plan Discharge Patient Disposition: [facility] Discharge Diagnosis: Hyponatremia, fall, cellulitis. Referrals: [facility] [Outside] - 1 Week Physician,Unknown J [Physician] - 1 Week Discharge Medications: New doxycycline hyclate 100 mg capsule 100 mg PO BID Qty: 10 0RF omeprazole 20 mg capsule,delayed release(DR/EC) 20 mg PO DAILY Qty: 30 0RF Continued albuterol sulfate 2.5 mg /3 mL (0.083 %) solution for nebulization 1 amp inhalation QID 0RF thiamine HCl (vitamin B1) 100 mg tablet 1 tab PO BEDTIME 0RF (DME) FreeStyle Lite Strips Strip MISCELLANEOUS QID 0RF insulin aspart U-100 [Novolog U-100 Insulin aspart] 100 unit/mL solution 15 unit subcut TIDAC 0RF simvastatin 20 mg tablet 1 tab PO BEDTIME 0RF lisinopril 10 mg tablet 1 tab PO DAILY 0RF folic acid 1 mg tablet 1 tab PO DAILY@1700 0RF albuterol sulfate 90 mcg/actuation HFA aerosol inhaler 2 puff inhalation QID PRN (Reason: Wheezing) 0RF buspirone 5 mg tablet 5 mg PO BID 0RF aspirin 81 mg tablet,delayed release (DR/EC) 1 tab PO BEDTIME 0RF tamsulosin 0.4 mg capsule 1 cap PO DAILY@1700 0RF ramelteon 8 mg tablet 1 tab PO BEDTIME 0RF omeprazole 20 mg capsule,delayed release(DR/EC) 1 cap PO BID@0630,1630 0RF hydroxyzine HCl 50 mg Tablet 50 mg PO Q8H PRN (Reason: Anxiety) Qty: 20 0RF fluticasone propion-salmeterol [Wixela Inhub] 250-50 mcg/dose blister with device 1 puff inhalation BID 0RF gabapentin 300 mg capsule 2 cap PO TID 0RF Lantus U-100 Insulin 100 unit/mL solution 45 unit subcut BEDTIME 0RF guaifenesin 100 mg/5 mL Liquid 200 mg PO Q4H PRN (Reason: cough) Qty: 473 0RF Discharge Orders: Discharge Order (Routine); Ordered 07/15/21 Ordered By: iSdney Ron Diet: advance to usual diet, diabetic diet, low fat, low cholesterol, low salt diet and other Activity on Discharge: As tolerated Stand Alone Forms: Patient Portal Discharge page Care Plan Goals: Patient came with fall, hyponatremia, cellulitis: Subsequently treated cellulitis with IV antibiotics, hyponatremia treated with fluid restriction and urea: Cellulitis improved with p.o. antibiotic, complete the course. Hyponatremia seems to be improving as well as cellulitis also improving. Rib fracture : Patient did not endorse much pain seems fine. Rhabdomyolysis probably related to fall and seems improved. Nausea/vomiting also improved-thought to be related to gastritis, added omeprazole. Health Concerns: As above. Plan of Treatment: As above. Assessment: As above.
--- NOTE | 2021-07-15 13:10 | MHC.CM.PN ---
CM met with Patient at bedside to discuss dc planning. Patient does not feel that he is safe to go home and has requested STR. CM has made several SNF referrals ([facility] choice)and CM will continue to follow. has been made aware and approved the initiation of a SNF search.
[2021-07-15 13:17] LABS: Sodium 135 mmol/L (135-145)
--- NOTE | 2021-07-15 15:00 | MHC.CM.PN ---
Patient has been medically cleared for dc to SNF/STR today. Patient will dc to [facility] in [facility], today at 6PM, via [facility] (this was Patient's first choice facility of the 4 that could offer a bed). CM returned a call to, Patient's Sister/HCP/Laura at [phone], but was only able to leave a detailed message. IMM addressed with Patient and original has been given to him and a copy has been placed on the chart.
[2021-07-15 16:01] LABS: Glucose, Whole Blood 222 mg/dL (60-115)
[2021-07-15] MEDS: Folic Acid 1 MG TABLET PO (16:01)
[2021-07-15] MEDS: Tamsulosin HCL 0.4 MG CAPSULE PO (16:01)
[2021-07-15 16:05] LABS: COVID-19 Test Negative (Negative); IDNOW Serial# 16C4AD1C
--- NOTE | 2021-07-17 11:10 | PM.PNNEP ---
Subjective Subjective Date of Service: 07/14/21 Interval history: F/u on fall, hyponatremia, cellulitis, sodium level is getting better, no confusion, sodium improving now 131, pain is controlled, no other complaint Physical Exam Vital Signs: Vital Signs: Last Vital Signs Temp 98.8 F 07/15/21 15:32 Pulse 112 H 07/15/21 15:32 Resp 18 07/15/21 15:32 BP 127/67 07/15/21 15:32 Pulse Ox 98 07/15/21 15:32 BMI result Body Mass Index 34.0 Const: General: ill appearing Neck: Neck: Yes supple and Yes no JVD Resp: Auscultation: clear to auscultation bilaterally Cardio: Jugular venous distension: no JVD Heart sounds: no gallops, no murmurs and no rubs GI: Palpation (GI): Soft to palpation Auscultation: normal bowel sounds Skin: General skin exam: no rashes or lesions noted Neuro: General: moves all extremities and Unable to assess gait Gait exam (Neuro): Unable to assess gait Motor exam (neuro): no asterixis Objective Data Labs CBC & Chem 7: 07/11/21 12:34 07/15/21 12:53 Microbiology Microbiology Results: Microbiology 07/11/21 16:43 Blood - Venous Blood Culture - Final No growth after 5 days. 07/11/21 12:33 Blood - Venous Blood Culture - Final Coag negative Staphylococcus Procedures Date of Service Date of Service: 07/14/21 Assessment & Plan Assessment and plan (1) Hyponatremia: Status: Acute Plan Severe hyponatremia in a setting of Alcohol intake: SNa has correctedgradually since adm Etiol c/w mixed picture Beer potomania; Need urine Osm to determine this Non osmotic ADH release due to alcohol REC: ok to d/c urea and stress avoid excess PO fluid and beer intake after d/c; will need outpt f/u labs case d/w hospita;ist Time Spent With Patient Time: Total time spent is greater than 50% in coordination of care (as documented) at patient's floor/unit and/or counseling patient: Progress Note: Quality Stroke Does the patient have a stroke diagnosis?: No
== END 2021-07-15 20:14 | disposition skilled nursing facility (03) | DRG 558 ==
LOC: HO.ED 19:04 → HO.EDOVER 23:54 → HO.IMC 07-12 00:24
PROVIDERS: Internal Medicine; Nurse Practitioner Family; Physician Assistant; Admitting Provider Hospitalist; Emergency Provider Emergency Medicine; PCP Internal Medicine Geriatric Medicine; Visit Provider Internal Medicine
DX: M62.82 Rhabdomyolysis (principal); S22.31XA Fracture of one rib, right side, initial encounter for closed fracture; I50.32 Chronic diastolic (congestive) heart failure; E87.1 Hypo-osmolality and hyponatremia; L03.115 Cellulitis of right lower limb; K29.70 Gastritis, unspecified, without bleeding; I11.0 Hypertensive heart disease with heart failure; F10.10 Alcohol abuse, uncomplicated; E10.9 Type 1 diabetes mellitus without complications; W18.30XA Fall on same level, unspecified, initial encounter; Z20.822 Contact with and (suspected) exposure to COVID-19; Z87.891 Personal history of nicotine dependence; Z79.4 Long term (current) use of insulin; Z79.51 Long term (current) use of inhaled steroids; Z79.899 Other long term (current) drug therapy
CPT/HCPCS: 36415; 70450; 71045; 72125; 74176; 80048; 80053; 80202; 80307; 81003; 82077; 82550; 82803; 82947; 83605; 83690; 83735; 83880; 83930; 84295; 84484; 85025; 87040; 87147; 87205; 87635; 93005; 94640; 96361; 96365; 96366; 96372; 96375; 97162; 99285; J1170; J1650; J2060; J2405; J2543; J3370; J3475

== ENCOUNTER 2021-07-20 21:54 | Inpatient (IN) | payer OTHER, SELFPAY ==
--- NOTE | ~2021-07-20 | XR_ITS ---
EXAMINATION: XR CHEST CLINICAL INFORMATION: Shortness of breath. COMPARISON: Chest radiograph dated from 07/11/2021. TECHNIQUE: Frontal view of the chest was obtained. FINDINGS: Stable cardiomediastinal silhouette. Patchy airspace opacities in the right lower lobe are unchanged. No new focal airspace opacities, pleural effusions or pneumothorax. Partially imaged right shoulder arthroplasty. No acute osseous abnormalities. XR/XR chest 1V IMPRESSION: Patchy opacities in the right lung base are stable.
--- NOTE | ~2021-07-20 | CT_ITS ---
EXAMINATION: CT HEAD WITHOUT CONTRAST CLINICAL INFORMATION: Altered mental status COMPARISON: 07/11/2021 TECHNIQUE: Contiguous axial imaging was performed from the skull base to vertex without intravenous administration of contrast. This CT examination was performed using dose optimization techniques as appropriate, variously including the following: *Automated exposure control *Adjustment of mA and/or kV according to patient size (this includes techniques or standardized protocols for targeted exams where dose is matched to indication/reason for exam; i.e. extremities or head) *Use of iterative reconstruction technique DLP: 2060 mGy-cm FINDINGS: Partially limited assessment in some regions due to motion artifact. There is no evidence of acute intracranial hemorrhage or territorial infarction. No abnormal mass effect or midline shift is seen. Garcia to white matter differentiation is well preserved. No extra-axial fluid collections are identified. The ventricles are normal in size. Small calcification along the falx posteriorly is redemonstrated, suggestive of a meningioma. Mild volume loss is noted. There is mild periventricular white matter hypoattenuation consistent with chronic small vessel ischemic disease. The osseous structures and soft tissues are normal. The mastoid air cells and visualized portions of the paranasal sinuses are well aerated. CT/CT head/brain wo con IMPRESSION: No acute intracranial pathology.
--- NOTE | ~2021-07-20 | CT_ITS ---
EXAMINATION: CT ABDOMEN AND PELVIS WITHOUT CONTRAST CLINICAL INFORMATION: Abdominal pain COMPARISON: 07/11/2021 TECHNIQUE: Multidetector volumetric imaging was performed from the superior aspect of the liver through the pubic symphysis. Sagittal and coronal reformatted images were obtained on the technologist's workstation. This CT examination was performed using dose optimization techniques as appropriate, variously including the following: *Automated exposure control *Adjustment of mA and/or kV according to patient size (this includes techniques or standardized protocols for targeted exams where dose is matched to indication/reason for exam; i.e. extremities or head) *Use of iterative reconstruction technique DLP: 2060 mGy-cm FINDINGS: Suboptimal assessment in some regions due to motion artifact. LUNG BASES: There is redemonstration of scattered patchy opacities at the bilateral lung bases, similar to prior. LIVER, GALLBLADDER, AND BILIARY TREE: The liver is normal in size, shape, and attenuation. No focal hepatic lesion or biliary ductal dilatation is present. The gallbladder is unremarkable with no evidence of radiopaque gallstones, gallbladder wall thickening, or obvious pericholecystic inflammatory changes. PANCREAS: Unremarkable. SPLEEN: Unremarkable. ADRENAL GLANDS: Unremarkable. KIDNEYS AND URETERS: Bilateral perinephric stranding is redemonstrated, similar to prior. No hydronephrosis or obstructing calculus is seen. Small cyst noted off the lateral left kidney; no follow-up recommended. BLADDER: Nearly empty and not well evaluated. GASTROINTESTINAL TRACT: Small hiatal hernia suspected. No evidence of bowel obstruction. Colonic diverticulosis is present. There is stranding adjacent to the distal descending colon which is new compared to prior, concerning for diverticulitis. No pericolonic abscess or definite free air is seen. No significant free fluid. Appendix appears at the upper limits of normal in diameter. ABDOMINAL WALL: Tiny fat-containing inguinal hernias, right larger than left. LYMPH NODES: Normal. VASCULAR: There is atherosclerotic calcification along the aorta. PELVIC VISCERA: Unremarkable. OSSEOUS STRUCTURES: Redemonstrated posterior right 11th rib fracture. Degenerative changes are noted in the spine. CT/CT abdomen pelvis wo con IMPRESSION: 1. Colonic diverticulosis with new stranding adjacent to the distal descending colon, concerning for diverticulitis. 2. Redemonstrated patchy pulmonary opacities at the lung bases, suspicious for pneumonia or possibly sequelae of aspiration. 3. Small hiatal hernia. Fleischner guidelines were followed.
--- NOTE | ~2021-07-20 | CT_ITS ---
EXAMINATION: CT CHEST WITHOUT CONTRAST CLINICAL INFORMATION: Shortness of breath with question of aspiration COMPARISON: Chest radiograph yesterday and CT abdomen yesterday, CT chest 06/22/2021 TECHNIQUE: Multidetector volumetric CT imaging of the chest was done. Axial MIP volume rendering provided. Sagittal and coronal reformatted images were obtained. This CT examination was performed using dose optimization techniques as appropriate, variously including the following: *Automated exposure control *Adjustment of mA and/or kV according to patient size (this includes techniques or standardized protocols for targeted exams where dose is matched to indication/reason for exam; i.e. extremities or head) *Use of iterative reconstruction technique DLP: 354 mGy-cm FINDINGS: LUNGS: The prior study from 06/22/2021 demonstrated multifocal patchy airspace disease along with tree-in-bud type pattern peripheral densities. Since that time, there has been considerable improvement throughout, although abnormality still persists most predominantly in the right lower lobe and left lower lobe. Some of the larger areas of consolidation have been present now appear more confluent and masslike such as in the right lower lobe posterolaterally (compare 5:334 with prior 7:356). There is no evidence of any new aspiration or new areas of consolidation. MEDIASTINUM: The mediastinum is unremarkable. Previously seen 1.4 cm short axis right paratracheal lymph node with fatty amie is unchanged. Smaller shotty lymph nodes persist. PLEURA: There is no pleural effusion. No pleural mass or thickening. AXILLA: No lymphadenopathy. UPPER ABDOMEN: Unremarkable. OSSEOUS STRUCTURES: Unremarkable. CT/CT chest wo con IMPRESSION: Evolving infiltrates in the lungs with significant improvement since the prior exam with some areas appearing more masslike as described above. Fleischner guidelines were followed.
[2021-07-20 22:10] VITALS: BP 60/30; PULSE 90; RESP 22; TEMP 37.4; O2SAT 98; BMI 36.6
--- NOTE | 2021-07-20 22:13 | ED.AMS ---
HPI - Altered Mental Status General Chief Complaint: Altered Mental Status Stated Complaint: AMS Time Seen by Provider: 07/20/21 22:03 History of Present Illness HPI narrative: Patient is a 65-year-old male with a history hypertension, hyperlipidemia, diabetes history of congestive heart failure, aortic stenosis, diverticulitis, alcohol abuse. Was in the hospital most recently for hyponatremia altered mental status was discharged on the . Presented back because of decreased p.o. intake more confusion per fdc. Per fdc patient only took in 100 cc of fluid. There is no fever no chills no coughing noted patient feels very weak and tired. Complaining of chronic pain to the chest abdomen. No diaphoresis. Patient had a previous rib fracture. No new leg swelling. Positive redness in the leg which patient was placed on doxycycline for. Patient is from home. Related Data Home Medications Medication Instructions Recorded Confirmed albuterol sulfate 1 amp INHALATION QID 12/29/20 07/11/21 albuterol sulfate 90 mcg/actuation 2 puff INHALATION QID PRN 12/29/20 07/11/21 aerosol inhaler blood sugar diagnostic (FreeStyle 12/29/20 02/04/21 Lite Strips) folic acid 1 mg tablet 1 tab PO DAILY@1700 12/29/20 07/11/21 insulin aspart U-100 100 unit/mL 15 unit SUBCUT TIDAC 12/29/20 07/11/21 subcutaneous solution (Novolog U-100 Insulin aspart) lisinopril 10 mg tablet 1 tab PO DAILY 12/29/20 07/11/21 simvastatin 20 mg tablet 1 tab PO BEDTIME 12/29/20 07/11/21 thiamine HCl (vitamin B1) 100 mg 1 tab PO BEDTIME 12/29/20 07/11/21 tablet aspirin 81 mg tablet,delayed 1 tab PO BEDTIME 02/04/21 07/11/21 release buspirone 5 mg tablet 5 mg PO BID 02/04/21 07/11/21 ramelteon 8 mg tablet 1 tab PO BEDTIME 05/12/21 07/11/21 tamsulosin 0.4 mg capsule 1 cap PO DAILY@1700 05/12/21 07/11/21 omeprazole 20 mg capsule,delayed 1 cap PO BID@0630,1630 06/01/21 07/11/21 release fluticasone 250 mcg-salmeterol 50 1 puff INHALATION BID 06/22/21 07/11/21 mcg/dose blistr powdr for inhalation (Wixela Inhub) gabapentin 300 mg capsule 2 cap PO TID 06/24/21 07/11/21 insulin glargine 100 unit/mL 45 unit SUBCUT BEDTIME 06/24/21 07/11/21 subcutaneous solution (Lantus U-100 Insulin) Previous Rx's Medication Instructions Recorded hydroxyzine HCl 50 mg tablet 50 mg PO Q8H PRN #20 tab 06/05/21 guaifenesin 100 mg/5 mL oral liquid 200 mg (10 mL) PO Q4H PRN #473 ml 07/01/21 doxycycline hyclate 100 mg capsule 100 mg PO BID #10 cap 07/15/21 Allergies Allergy/AdvReac Type Severity Reaction Status Date / Time ENVIRONMENTAL Allergy Mild SNEEZING, Uncoded 07/11/21 10:06 WATERY EYES Review of Systems Review of Systems: Positive generalized malaise no fever no chills no diaphoresis Yes all other systems are reviewed and are negative [facility] Past Medical History Attestation statement: The following information was validated with the patient. Medical History LAUREN (acute kidney injury) Alcohol abuse COPD (chronic obstructive pulmonary disease) Diabetes mellitus type 1 Diastolic dysfunction Diastolic heart failure Fall HLD (hyperlipidemia) Hypertension Nonrheumatic aortic (valve) stenosis Obesity Family History Family History Father Diabetes Mother Diabetes Social History Social History Household Members: None Housing: Apartment Do you presently have visiting nurse or other home services: No Alcohol intake: current Alcohol intake frequency: 3 or more drinks per day Alcohol type: hard liquor Patient Tobacco Use Status: Former Tobacco user Tobacco use type: Cigar Smoked in Last 30 Days: No e-Cigarette/Vaping Use: Currently Using Second Hand Smoke Exposure: No Advance Directives: Yes Advance Directives on File: Yes Advance Directives Date on File: 10/11/20 service: No Current occupational status: unemployed and disabled Physical Exam ED Vital Signs: Vital Signs - 24 hr 07/20/21 22:10 07/21/21 00:00 07/21/21 00:26 Temperature 99.3 F 98.2 F Pulse Rate 90 84 Respiratory Rate 22 H 20 Blood Pressure 60/30 L 76/50 L 76/41 L Pulse Oximetry 98 97 07/21/21 01:31 Temperature Pulse Rate 84 Respiratory Rate 16 Blood Pressure 84/53 L Pulse Oximetry 97 BMI result Body Mass Index 36.6 Appearance: Alert. Awake alert oriented to self and to place. Thinks is 2020. No acute distress. Eyes: Pupils equal, round and reactive to light. ENT: Pharynx normal. Mucous membrane was dry Neck: Normal inspection. Neck supple. No lymph nodes noted. No crepitus CVS: Normal heart rate and rhythm. Pulses normal. Normal S1 and S2 Respiratory: No respiratory distress. Breath sounds normal. No Wheezing. No rales Abdomen: Soft and nontender. No rigidity. No distention. good BS x4 Skin: Positive erythema to bilateral lower extremity slightly warm to touch appears very chronic scaling Extremities: No lower extremity edema. Neurovascular intact to all extremities. No Lacerations. No Rash Neuro: Oriented x2. No motor deficit. No sensory deficit. Moving all extermities. No slurred speech MDM - Altered Mental Status MDM Narrative Medical decision making narrative: Patient presented today with decreasing p.o. intake generalized malaise. Review of patient's lab from the fdc showed an elevated creatinine. Patient is in the emergency department had a low blood pressure. No fever documented. A rectal temp was done the temperature is 98.1 degrees. Patient's lactate is normal. Chest x-ray showed a stable right lower lobe plaque/infiltrate. CT scan of the head was grossly negative for any evidence of bleeding. CT scan of the abdomen pelvis done as patient had an elevated creatinine. Positive for mild diverticulitis question pneumonia. A dose of cefepime was started as patient had a previous admission within the last 90 days. In addition patient was started on Flagyl for treatment of diverticulitis. creatinine today was 3.62. This is much higher than baseline of normal creatinine. A central line was placed for blood draw and also IV therapy. IV fluid was started. He was given 2 L of IV fluid and he is on the 3 L of IV fluid the current time. Patient's blood pressure remained low at 75/50. Urine showed no signs of infection. Patient's case discussed with the otm consultant team for admission EKG shows sinus pattern heart rate was 90 MN QRS QTC within normal limits is no acute ST segment elevation noted. Medical Records Attestation: I reviewed the patient's medical records. Lab Data Attestation: I reviewed the patient's lab results. Result diagrams: 07/20/21 23:25 07/20/21 23:25 Labs: Lab Results 07/20/21 07/20/21 07/20/21 Range/Units 23:25 23:25 23:25 WBC 7.2 (4.8-10.8) X10*3/uL RBC 3.14 L D (4.60-5.80) X10*6/uL Hgb 9.7 L D (14.0-18.0) g/dl Hct 31.0 L (42.0-52.0) % MCV 98.7 H (80.0-98.0) fL MCH 30.9 (27.0-33.0) pg MCHC 31.3 (31.0-36.0) g/dl RDW 13.8 (11.0-16.0) % Plt Count 250 D (160-400) X10*3/uL MPV 8.9 L (9.4-12.4) fL Immature Gran % (Auto) 0.4 (0.0-0.4) % Neut % (Auto) 62.7 (45-73) % Lymph % (Auto) 21.6 (20-40) % [place] % (Auto) 10.8 (2-11) % Eos % (Auto) 4.1 H (0-4) % Baso % (Auto) 0.4 (0-2) % Lymph # (Auto) 1.6 (1.2-4.9) X10*3/uL [place] # (Auto) 0.8 (0.1-1.2) X10*3/uL Eos # (Auto) 0.3 (0.0-0.4) X10*3/uL Baso # (Auto) 0.0 (0.0-0.2) X10*3/uL Abs Immat Gran (auto) 0.03 (0.00-0.03) X10*3/uL Absolute Neuts (auto) 4.5 (2.0-8.3) x10*3/uL Absolute Nucleated RBC 0.000 (0.0-0.012) X10*3/uL Nucleated RBC % (auto) 0.0 (0.0-0.2) /100WBC Sodium 138 (135-145) mmol/L Potassium 5.1 (3.3-5.1) mmol/L Chloride 103 (96-108) mmol/L Carbon Dioxide 24 (22-29) mmol/L Anion Gap 16 (12-20) BUN 44 H (9-16) mg/dL Creatinine 3.62 H (0.5-1.4) mg/dL Estim Creat Clear Calc 27.4 Estimated GFR 17 Random Glucose 174 H D (60-115) mg/dL Lactic Acid (0.5-2.0) mmol/L Calcium 8.0 L (8.4-10.2) mg/dL Magnesium 1.4 L* (1.6-2.6) mg/dL Total Bilirubin 0.2 (0.0-1.0) mg/dL Direct Bilirubin 0.2 (0.0-0.5) mg/dL AST 15 D (5-37) U/L ALT 9 (0-40) U/L Alkaline Phosphatase 71 D (39-117) U/L Ammonia 25 (13-55) umol/L Total Protein 5.4 L (6.5-8.0) g/dL Albumin 3.0 L (3.5-5.0) g/dL Lipase 8 (8-78) U/L Urine Color Urine Appearance Urine pH (5.0-8.0) Ur Specific [place] (1.005-1.025) Urine Protein (NEG-TRACE) MG/DL Urine Glucose (UA) (NEG) MG/DL Urine Ketones (NEG) MG/DL Urine Blood (NEG) Urine Nitrite (NEG) Ur Leukocyte Esterase (NEG) Urine RBC (0) /HPF Urine WBC (0-4) /HPF Ur Squamous Epith Cells /LPF Urine Bacteria /LPF Hyaline Casts /LPF Granular Casts /LPF Urine Mucus /LPF Stool Occult Blood (NEGATIVE) Ethyl Alcohol mg/dL COVID-19 (ELIER) (Negative) COVID-19 Clin Com 03/13/22 03/13/22 03/13/22 Range/Units 23:25 23:25 23:25 WBC (4.8-10.8) X10*3/uL RBC (4.60-5.80) X10*6/uL Hgb (14.0-18.0) g/dl Hct (42.0-52.0) % MCV (80.0-98.0) fL MCH (27.0-33.0) pg MCHC (31.0-36.0) g/dl RDW (11.0-16.0) % Plt Count (160-400) X10*3/uL MPV (9.4-12.4) fL Immature Gran % (Auto) (0.0-0.4) % Neut % (Auto) (45-73) % Lymph % (Auto) (20-40) % [place] % (Auto) (2-11) % Eos % (Auto) (0-4) % Baso % (Auto) (0-2) % Lymph # (Auto) (1.2-4.9) X10*3/uL [place] # (Auto) (0.1-1.2) X10*3/uL Eos # (Auto) (0.0-0.4) X10*3/uL Baso # (Auto) (0.0-0.2) X10*3/uL Abs Immat Gran (auto) (0.00-0.03) X10*3/uL Absolute Neuts (auto) (2.0-8.3) x10*3/uL Absolute Nucleated RBC (0.0-0.012) X10*3/uL Nucleated RBC % (auto) (0.0-0.2) /100WBC Sodium (135-145) mmol/L Potassium (3.3-5.1) mmol/L Chloride (96-108) mmol/L Carbon Dioxide (22-29) mmol/L Anion Gap (12-20) BUN (9-16) mg/dL Creatinine (0.5-1.4) mg/dL Estim Creat Clear Calc Estimated GFR Random Glucose (60-115) mg/dL Lactic Acid 1.1 (0.5-2.0) mmol/L Calcium (8.4-10.2) mg/dL Magnesium (1.6-2.6) mg/dL Total Bilirubin (0.0-1.0) mg/dL Direct Bilirubin (0.0-0.5) mg/dL AST (5-37) U/L ALT (0-40) U/L Alkaline Phosphatase (39-117) U/L Ammonia (13-55) umol/L Total Protein (6.5-8.0) g/dL Albumin (3.5-5.0) g/dL Lipase (8-78) U/L Urine Color Urine Appearance Urine pH (5.0-8.0) Ur Specific [place] (1.005-1.025) Urine Protein (NEG-TRACE) MG/DL Urine Glucose (UA) (NEG) MG/DL Urine Ketones (NEG) MG/DL Urine Blood (NEG) Urine Nitrite (NEG) Ur Leukocyte Esterase (NEG) Urine RBC (0) /HPF Urine WBC (0-4) /HPF Ur Squamous Epith Cells /LPF Urine Bacteria /LPF Hyaline Casts /LPF Granular Casts /LPF Urine Mucus /LPF Stool Occult Blood (NEGATIVE) Ethyl Alcohol < 10 mg/dL COVID-19 (ELIER) Negative (Negative) COVID-19 Clin Com See Note 07/20/21 07/21/21 Range/Units 23:46 00:51 WBC (4.8-10.8) X10*3/uL RBC (4.60-5.80) X10*6/uL Hgb (14.0-18.0) g/dl Hct (42.0-52.0) % MCV (80.0-98.0) fL MCH (27.0-33.0) pg MCHC (31.0-36.0) g/dl RDW (11.0-16.0) % Plt Count (160-400) X10*3/uL MPV (9.4-12.4) fL Immature Gran % (Auto) (0.0-0.4) % Neut % (Auto) (45-73) % Lymph % (Auto) (20-40) % [place] % (Auto) (2-11) % Eos % (Auto) (0-4) % Baso % (Auto) (0-2) % Lymph # (Auto) (1.2-4.9) X10*3/uL [place] # (Auto) (0.1-1.2) X10*3/uL Eos # (Auto) (0.0-0.4) X10*3/uL Baso # (Auto) (0.0-0.2) X10*3/uL Abs Immat Gran (auto) (0.00-0.03) X10*3/uL Absolute Neuts (auto) (2.0-8.3) x10*3/uL Absolute Nucleated RBC (0.0-0.012) X10*3/uL Nucleated RBC % (auto) (0.0-0.2) /100WBC Sodium (135-145) mmol/L Potassium (3.3-5.1) mmol/L Chloride (96-108) mmol/L Carbon Dioxide (22-29) mmol/L Anion Gap (12-20) BUN (9-16) mg/dL Creatinine (0.5-1.4) mg/dL Estim Creat Clear Calc Estimated GFR Random Glucose (60-115) mg/dL Lactic Acid (0.5-2.0) mmol/L Calcium (8.4-10.2) mg/dL Magnesium (1.6-2.6) mg/dL Total Bilirubin (0.0-1.0) mg/dL Direct Bilirubin (0.0-0.5) mg/dL AST (5-37) U/L ALT (0-40) U/L Alkaline Phosphatase (39-117) U/L Ammonia (13-55) umol/L Total Protein (6.5-8.0) g/dL Albumin (3.5-5.0) g/dL Lipase (8-78) U/L Urine Color YELLOW Urine Appearance CLEAR Urine pH 5.5 (5.0-8.0) Ur Specific [place] >= 1.030 H (1.005-1.025) Urine Protein TRACE (NEG-TRACE) MG/DL Urine Glucose (UA) NEG (NEG) MG/DL Urine Ketones NEG (NEG) MG/DL Urine Blood NEG (NEG) Urine Nitrite NEG (NEG) Ur Leukocyte Esterase NEG (NEG) Urine RBC 1-4 (0) /HPF Urine WBC 1-4 (0-4) /HPF Ur Squamous Epith Cells 1+ /LPF Urine Bacteria 2+ /LPF Hyaline Casts 1-4 /LPF Granular Casts 5-9 /LPF Urine Mucus 1+ /LPF Stool Occult Blood POSITIVE (NEGATIVE) Ethyl Alcohol mg/dL COVID-19 (ELIER) (Negative) COVID-19 Clin Com Procedures Central Line Placement Right Femoral: Time Out Performed: Yes Patient Placed on Monitor/Pulse Ox: Yes MD Prep: mask, gown and gloves Central Line Prep: Chlorhexidine scrub and sterile drapes applied Local Anesthetic: lidocaine 1% Amount of anesthesia used (mL): 5 Ultrasound Used for Placement: Yes Central Line Lumen Inserted: triple Post Procedure: sutured in place Patient Tolerated Procedure: well Complications: none Critical Care Time Critical Care Time Critical Care Time: Yes Total Critical Care Time: 90 Attestation: I have personally provided 90 minutes of critical care time exclusive of time spent on separately billable procedures. Time includes review of lab data, radiology results, discussion with consultants, and monitoring for potential decompensation. Interventions were performed as documented above Discharge Plan Discharge Clinical Impression: Acute renal failure, Diverticulitis, Pneumonia Patient Disposition: Admitted As Inpatient
--- NOTE | 2021-07-20 22:19 | ECG_ITS ---
Test Reason : HYPOTENSION Blood Pressure : / mmHG Vent. Rate : 088 BPM Atrial Rate : 088 BPM P-R Int : 192 ms QRS Dur : 074 ms QT Int : 336 ms P-R-T Axes : 069 -17 085 degrees QTc Int : 406 ms Normal sinus rhythm Low voltage QRS Nonspecific ST and T wave abnormality Abnormal ECG When compared with ECG of 11-JUL-2021 10:05, No significant changes seen Referred By: Nadia Thibodeaux Electronically Signed By:BING PHILLIPS
[2021-07-20] MEDS: 0.9 % Sodium Chloride 1,000 ML 999 ML IV (23:30)
[2021-07-20 23:39] LABS: MANUAL DIFF FLAG NO
[2021-07-20 23:40] LABS: Basophils Percent Auto 0.4 % (0-2); Eosinophils Absolute Auto 0.3 X10*3/uL (0.0-0.4); Eosinophils Percent Auto 4.1 % (0-4); Hemoglobin 9.7 g/dl (14.0-18.0); Imm Gran Abs Auto 0.03 X10*3/uL (0.00-0.03); Imm Gran Pct Auto 0.4 % (0.0-0.4); Lymphocytes Absolute Auto 1.6 X10*3/uL (1.2-4.9); Lymphocytes Percent Auto 21.6 % (20-40); Mean Corpuscular HGB Conc 31.3 g/dl (31.0-36.0); Mean Corpuscular Hemoglobin 30.9 pg (27.0-33.0); Mean Corpuscular Volume 98.7 fL (80.0-98.0); Mean Platelet Volume 8.9 fL (9.4-12.4); Monocytes Absolute Auto 0.8 X10*3/uL (0.1-1.2); Monocytes Percent Auto 10.8 % (2-11); Neutrophils Absolute Auto 4.5 x10*3/uL (2.0-8.3); Neutrophils Percent Auto 62.7 % (45-73); Platelet Count 250 X10*3/uL (160-400); Red Blood Count 3.14 X10*6/uL (4.60-5.80); Red Cell Distribution Width 13.8 % (11.0-16.0); White Blood Count 7.2 X10*3/uL (4.8-10.8)
[2021-07-20 23:52] LABS: COVID-19 Test Negative (Negative); IDNOW Serial# 16C4AD1C
[2021-07-20 23:54] LABS: Appearance Urine CLEAR; Color Urine YELLOW; Glucose Urine UA NEG (NEG); Leukocyte Esterase Urine NEG (NEG); Nitrite Urine NEG (NEG); PH 5.5 (5.0-8.0); Specific Gravity - Urine >= 1.030 (1.005-1.025); Urine Blood NEG (NEG); Urine Ketones NEG (NEG); Urine Protein TRACE MG/DL (NEG-TRACE)
[2021-07-20 23:55] LABS: Lactic Acid 1.1 mmol/L (0.5-2.0)
[2021-07-20 23:58] LABS: Ethanol < 10 mg/dL
[2021-07-21] VITALS (18 sets, daily range): BP systolic 76–129; BP diastolic 41–67; PULSE 81–98; RESP 16–20; TEMP 36.6–36.9; O2SAT 93–99
[2021-07-21 00:04] LABS: Bacteria Urine 2+ /LPF; Squamous Epithelial Cell Urine 1+ /LPF
[2021-07-21 00:05] LABS: Mucus Urine 1+ /LPF
[2021-07-21 00:09] LABS: Alanine Aminotransferase 9 U/L (0-40); Alkaline Phosphatase 71 U/L (39-117); Anion Gap 16 (12-20); Aspartate Amino Transferase 15 U/L (5-37); Bilirubin Direct 0.2 mg/dL (0.0-0.5); Bilirubin Total 0.2 mg/dL (0.0-1.0); Blood Urea Nitrogen 44 mg/dL (9-16); Carbon Dioxide 24 mmol/L (22-29); Chloride 103 mmol/L (96-108); Creatinine Clr Calc Pharmacy 27.4; Estimated Glomerular Filt Rate 17; Glucose Random 174 mg/dL (60-115); Lipase 8 U/L (8-78); Magnesium 1.4 mg/dL (1.6-2.6); Potassium 5.1 mmol/L (3.3-5.1); Sodium 138 mmol/L (135-145); Total Protein 5.4 g/dL (6.5-8.0)
[2021-07-21] MEDS: Magnesium Sulfate/H2O 2 GM/50 ML PIGGYBACK IV (00:35)
[2021-07-21] MEDS: 0.9 % Sodium Chloride 1,000 ML 999 ML IV ×2 (00:35)
[2021-07-21 00:56] LABS: Ammonia 25 umol/L (13-55)
[2021-07-21 01:02] LABS: OBS Int Ctl Valid YES; OBS1 POSITIVE (NEGATIVE)
[2021-07-21] MEDS: cefEPime HCl 2 GM in 0.9 % Sodium Chloride 50 ML IV (01:18)
[2021-07-21] MEDS: metroNIDAZOLE/NS 500 MG/100 ML PIGGYBACK 100 MG IV (01:19)
--- NOTE | 2021-07-21 01:45 | PC.NURSE ---
GETTING DIFFERENT BLOOD PRESSURE MACHINE AFTER SEVERAL EXTREMELY HYPOTENSIVE READING ON BEDSIDE MACHINE. PORTABLE B/P MACHINE READING 94/46. PROVIDER MD MALIK IS AWARE. FLUIDS CONTINUE FOR PATIENT
--- NOTE | 2021-07-21 09:20 | P.HPHOSP_ITS ---
History of Present Illness Date of Service: 07/21/21 Chief Complaint: mental status changes, decreased urine output This is a 65 year old M with a PMH as outlined below who was admitted to [facility] from 07/11/21 to 07/15/21 for treatment of alcohol withdrawal and severe symptomatic hyponatreamia. He was discharged a SNF and now returns with reports of decreased urine output and changes in mental status. Patient is seen and examined in the ED around 9AM. He reprots that he was doing fairly well at the SNF until about 2 to 3 days ago where he started having diarrhea 3 to 4 times a daily with associated diffuse abdominal pain, nausea and several episodes of vomiting. His oral intake had also decreased. There are no reports of fevers or chills. Upon arrival to the ED, he was noted to be hypotensive in the 60s to 70s systolic which improved with 3L of IVF. His blood work showed LAUREN with a SCr of 3.6 (it was 0.86 1 week prior). His imaging studies showed concern over diverticulitis. He was treated with IV cefepime + flagy. Per history of the ED staff, the patient has been evaluated by the racing car driver and at this time, he is deemded stable for admission under the hospitalist service. Review of Systems Review of Systems: negative except HPI [facility] Medical History (Updated 07/21/21 @ 01:25 by Nadia Thibodeaux MD) LAUREN (acute kidney injury) Alcohol abuse COPD (chronic obstructive pulmonary disease) Diabetes mellitus type 1 Diastolic dysfunction Diastolic heart failure Fall HLD (hyperlipidemia) Hypertension Nonrheumatic aortic (valve) stenosis Obesity Family History Father Diabetes Mother Diabetes Surgical History (Updated 07/21/21 @ 09:27 by Mike Palmer MD) H/O elbow surgery H/O shoulder surgery History of hydrocelectomy S/P TURP Social History Household Members: None Housing: Apartment Do you presently have visiting nurse or other home services: No Alcohol intake: current Alcohol intake frequency: 3 or more drinks per day Alcohol type: hard liquor Patient Tobacco Use Status: Former Tobacco user Tobacco use type: Cigar Smoked in Last 30 Days: No e-Cigarette/Vaping Use: Currently Using Second Hand Smoke Exposure: No Advance Directives: Yes Advance Directives on File: Yes Advance Directives Date on File: 10/11/20 service: No Current occupational status: unemployed and disabled Meds Allergies Allergy/AdvReac Type Severity Reaction Status Date / Time ENVIRONMENTAL Allergy Mild SNEEZING, Uncoded 07/11/21 10:06 WATERY EYES Active Medications: Current Medications Lactated Ringer's (Lr) 1,000 mls @ 999 mls/hr IV .Q1H1M JOURDAN Stop: 07/21/21 10:30 Home Medications Medication Instructions Recorded Confirmed Last Taken Type albuterol sulfate 1 amp INHALATION QID 12/29/20 07/11/21 Unknown History albuterol sulfate 90 mcg/actuation 2 puff INHALATION QID PRN 12/29/20 07/11/21 Unknown History aerosol inhaler blood sugar diagnostic (FreeStyle 12/29/20 02/04/21 Unknown History Lite Strips) folic acid 1 mg tablet 1 tab PO DAILY@1700 12/29/20 07/11/21 Unknown History lisinopril 10 mg tablet 1 tab PO DAILY 12/29/20 07/11/21 Unknown History simvastatin 20 mg tablet 1 tab PO BEDTIME 12/29/20 07/11/21 Unknown History thiamine HCl (vitamin B1) 100 mg 1 tab PO BEDTIME 12/29/20 07/11/21 Unknown History tablet aspirin 81 mg tablet,delayed 1 tab PO BEDTIME 02/04/21 07/11/21 Unknown History release buspirone 5 mg tablet 5 mg PO BID 02/04/21 07/11/21 Unknown History ramelteon 8 mg tablet 1 tab PO BEDTIME 05/12/21 07/11/21 Unknown History tamsulosin 0.4 mg capsule 1 cap PO DAILY@1700 05/12/21 07/11/21 Unknown History omeprazole 20 mg capsule,delayed 1 cap PO BID@0630,1630 06/01/21 07/11/21 Unknown History release gabapentin 300 mg capsule 2 cap PO TID 06/24/21 07/11/21 Unknown History insulin glargine 100 unit/mL 45 unit SUBCUT BEDTIME 06/24/21 07/11/21 Unknown History subcutaneous solution (Lantus U-100 Insulin) insulin lispro 100 unit/mL 1 sliding scale dose SUBCUT 07/21/21 Unknown History subcutaneous cartridge (Humalog USEASDIRECTD U-100 Insulin) multivitamin 1 tab PO DAILY 07/21/21 Unknown History omega-3 fatty acids-fish oil 340 1 cap PO DAILY 07/21/21 Unknown History mg-1,000 mg capsule (Fish Oil) Physical Exam Vital Signs and Narrative: Vital Signs: Last Vital Signs Temp 98.0 F 07/21/21 06:00 Pulse 90 07/21/21 09:08 Resp 17 07/21/21 09:08 BP 98/52 L 07/21/21 09:08 Pulse Ox 94 07/21/21 09:08 BMI result Body Mass Index 36.6 Const: Other: Constitutional - Awake and Alert, No apparent distress Eyes - PERRLA, EOMI Cardiovascular - S1S2, RRR, No edema Respiratory - Normal lung expansion, Normal respiratory effort, No respiratory distress, CTA bilaterally Gastrointestinal - diffuse abdominal tenderness; hypoactive bowel sounds; no peritoneal signs - No CVA tenderness Extremities - no calf tenderness bilaterally, no swelling Musculoskeletal - Normal inspection, normal ROM Skin - Warm/Dry Neurological - Alert & oriented x3, No focal deficit Psychological - Appropriate affect Results Labs CBC and Chem 7: 07/20/21 23:25 07/20/21 23:25 Labs: Laboratory Results - last 24 hr 07/20/21 07/20/21 07/20/21 23:25 23:25 23:25 MCV 98.7 H MCH 30.9 MCHC 31.3 RDW 13.8 Plt Count 250 D MPV 8.9 L Immature Gran % (Auto) 0.4 Neut % (Auto) 62.7 Lymph % (Auto) 21.6 [place] % (Auto) 10.8 Eos % (Auto) 4.1 H Baso % (Auto) 0.4 Lymph # (Auto) 1.6 [place] # (Auto) 0.8 Eos # (Auto) 0.3 Baso # (Auto) 0.0 Abs Immat Gran (auto) 0.03 Absolute Neuts (auto) 4.5 Absolute Nucleated RBC 0.000 Nucleated RBC % (auto) 0.0 Anion Gap 16 Estim Creat Clear Calc 27.4 Estimated GFR 17 Random Glucose 174 H D Lactic Acid Calcium 8.0 L Magnesium 1.4 L* Total Bilirubin 0.2 Direct Bilirubin 0.2 AST 15 D ALT 9 Alkaline Phosphatase 71 D Ammonia 25 Total Protein 5.4 L Albumin 3.0 L Lipase 8 Urine Color Urine Appearance Urine pH Ur Specific [place] Urine Protein Urine Glucose (UA) Urine Ketones Urine Blood Urine Nitrite Ur Leukocyte Esterase Urine RBC Urine WBC Ur Squamous Epith Cells Urine Bacteria Hyaline Casts Granular Casts Urine Mucus Stool Occult Blood Ethyl Alcohol COVID-19 (ELIER) COVID-19 Clin Com 07/20/21 07/20/21 07/20/21 23:25 23:25 23:25 MCV MCH MCHC RDW Plt Count MPV Immature Gran % (Auto) Neut % (Auto) Lymph % (Auto) [place] % (Auto) Eos % (Auto) Baso % (Auto) Lymph # (Auto) [place] # (Auto) Eos # (Auto) Baso # (Auto) Abs Immat Gran (auto) Absolute Neuts (auto) Absolute Nucleated RBC Nucleated RBC % (auto) Anion Gap Estim Creat Clear Calc Estimated GFR Random Glucose Lactic Acid 1.1 Calcium Magnesium Total Bilirubin Direct Bilirubin AST ALT Alkaline Phosphatase Ammonia Total Protein Albumin Lipase Urine Color Urine Appearance Urine pH Ur Specific [place] Urine Protein Urine Glucose (UA) Urine Ketones Urine Blood Urine Nitrite Ur Leukocyte Esterase Urine RBC Urine WBC Ur Squamous Epith Cells Urine Bacteria Hyaline Casts Granular Casts Urine Mucus Stool Occult Blood Ethyl Alcohol < 10 COVID-19 (ELIER) Negative COVID-19 Clin Com See Note 07/20/21 07/21/21 23:46 00:51 MCV MCH MCHC RDW Plt Count MPV Immature Gran % (Auto) Neut % (Auto) Lymph % (Auto) [place] % (Auto) Eos % (Auto) Baso % (Auto) Lymph # (Auto) [place] # (Auto) Eos # (Auto) Baso # (Auto) Abs Immat Gran (auto) Absolute Neuts (auto) Absolute Nucleated RBC Nucleated RBC % (auto) Anion Gap Estim Creat Clear Calc Estimated GFR Random Glucose Lactic Acid Calcium Magnesium Total Bilirubin Direct Bilirubin AST ALT Alkaline Phosphatase Ammonia Total Protein Albumin Lipase Urine Color YELLOW Urine Appearance CLEAR Urine pH 5.5 Ur Specific [place] >= 1.030 H Urine Protein TRACE Urine Glucose (UA) NEG Urine Ketones NEG Urine Blood NEG Urine Nitrite NEG Ur Leukocyte Esterase NEG Urine RBC 1-4 Urine WBC 1-4 Ur Squamous Epith Cells 1+ Urine Bacteria 2+ Hyaline Casts 1-4 Granular Casts 5-9 Urine Mucus 1+ Stool Occult Blood POSITIVE Ethyl Alcohol COVID-19 (ELIER) COVID-19 Clin Com Imaging Radiologist's Impressions: Impressions Abdomen/Pelvis CT 07/21/21 00:25 IMPRESSION: 1. Colonic diverticulosis with new stranding adjacent to the distal descending colon, concerning for diverticulitis. 2. Redemonstrated patchy pulmonary opacities at the lung bases, suspicious for pneumonia or possibly sequelae of aspiration. 3. Small hiatal hernia. Fleischner guidelines were followed. Head CT 07/21/21 00:25 IMPRESSION: No acute intracranial pathology. Chest X-Ray 07/21/21 00:45 IMPRESSION: Patchy opacities in the right lung base are stable. Assessment and Plan (1) Acute renal failure: Status: Acute Plan This is a 65 year old male with a PMH of alcohol abuse with dependence, hyopnatremia, COPD, DM, HFpEF, who was discharged to SNF from [facility] after he was hospitalized for alcohol withdrawal and symptomatic hyponatremia. He now returns about 1 week later with reprots of diarrhea and mental status changes (although he does not appear to be disoriented on admission). He is noted to have LAUREN and will be admitted for further work up and treatment. 1. Acute Kidney Injury SCr baseline 0.7 to 0.8 -- now 3.62 in the setting of diarrhea + infection s/p 3L IVF, will given another 1L at this time i/o repeat BMP now, if creatinine on the rise -- consult nephrology no obstruction seen on imaging 2. Diverticulitis IV zosyn NPO for now, clear liquids once he improves 3. Hypotension due to above responded to IVF, SBP > 90 now continue the same evaluated by ICU -- deemed stable for floor admission at this time 4. HypoMg repleted with IV, will recheck now and give more pending results 5. DM hold orals POC q6 hours and sliding scale while NPO 6. Acute Anemia (baseline around 12-13/35-38), presenting with: 9.7/31 blood loss to be ruled out -- no jero bleeding, check occult blood repeat h/h now 7. Chronic HFpEF monitor closely while on IVF currently hypovoluemic Med rec pending -- continue his baseline meds as appropriate. Full Code DVT pptx -- mechanical due to concern over acute blood loss anemia In light of the patients acute kidney injury, hypotension and suspected diverticulitis - I anticipate a medically necessary 2 midnight, inpatient hospitalization for treatment with IV fluids / antibiotics and close monitoring of response. This cannot be completed in a less acute setting. Quality Stroke Does the patient have a stroke diagnosis?: No VTE Prior VTE?: No VTE Risk Level:: Medical - moderate - high VTE Device Contraindication: N/A - Device Ordered VTE Drug Contraindication: Treatment Not Indicated
[2021-07-21 09:45] LABS: Hematocrit 29.7 % (42.0-52.0); Hemoglobin 9.2 g/dl (14.0-18.0); Mean Corpuscular Hemoglobin 30.8 pg (27.0-33.0); Mean Corpuscular Volume 99.3 fL (80.0-98.0); Mean Platelet Volume 8.8 fL (9.4-12.4); Platelet Count 224 X10*3/uL (160-400); Red Blood Count 2.99 X10*6/uL (4.60-5.80); White Blood Count 5.5 X10*3/uL (4.8-10.8)
[2021-07-21 09:57] LABS: Anion Gap 13 (12-20); Blood Urea Nitrogen 30 mg/dL (9-16); Calcium 7.8 mg/dL (8.4-10.2); Carbon Dioxide 25 mmol/L (22-29); Chloride 110 mmol/L (96-108); Creatinine Clr Calc Pharmacy 56.8; Estimated Glomerular Filt Rate 39; Glucose Random 157 mg/dL (60-115); Magnesium 1.6 mg/dL (1.6-2.6); Potassium 5.3 mmol/L (3.3-5.1); Sodium 143 mmol/L (135-145)
[2021-07-21 09:58] LABS: Lipase 8 U/L (8-78)
[2021-07-21 10:44] LABS: Procalcitonin 0.06 ng/mL
[2021-07-21] MEDS: Lactated Ringers 1,000 ML 999 ML IV (10:58)
[2021-07-21] MEDS: Pantoprazole Sodium 40 MG/10 ML VIAL IVPUSH (10:58)
[2021-07-21] MEDS: Piperacillin Sodium/Tazobactam 2.25 GM in 0.9 % Sodium Chloride 50 ML IV ×3 (10:58→23:38)
--- NOTE | 2021-07-21 11:26 | PHA.MEDREC ---
Pharmacy Consult ? Medication Reconciliation Pharmacy has completed the medication reconciliation. No remarkable issues. Jia Whitfield, MaryD
[2021-07-21 13:00] LABS: Glucose, Whole Blood 139 mg/dL (60-115)
--- NOTE | 2021-07-21 14:44 | PC.NURSE ---
rn to rn report given to james. pt is aware of [place] [facility] [place]
[2021-07-21] MEDS: 0.9 % Sodium Chloride Flush 3 ML SYRINGE IVFLUSH ×2 (16:38→20:26)
[2021-07-21] MEDS: Tamsulosin HCL 0.4 MG CAPSULE PO (16:38)
[2021-07-21] MEDS: Folic Acid 1 MG TABLET PO (16:38)
[2021-07-21] MEDS: Omeprazole 20 MG CAPSULE.DR PO (16:39)
[2021-07-21] MEDS: oxyCODONE HCl Immed Release 5 MG TABLET PO ×2 (16:39→23:40)
[2021-07-21] MEDS: busPIRone HCl 5 MG TABLET PO (20:25)
[2021-07-21] MEDS: Thiamine HCL 100 MG TABLET PO (20:25)
[2021-07-22 03:34] VITALS: BP 114/67; PULSE 95; RESP 20; O2SAT 96
[2021-07-22] MEDS: Piperacillin Sodium/Tazobactam 2.25 GM in 0.9 % Sodium Chloride 50 ML IV ×3 (05:24→23:14)
[2021-07-22] MEDS: Omeprazole 20 MG CAPSULE.DR PO ×2 (05:24→16:54)
[2021-07-22 06:59] LABS: Hematocrit 30.5 % (42.0-52.0); Mean Corpuscular HGB Conc 32.8 g/dl (31.0-36.0); Mean Corpuscular Hemoglobin 31.1 pg (27.0-33.0); Mean Corpuscular Volume 94.7 fL (80.0-98.0); PLT CLUMP 1; Red Blood Count 3.22 X10*6/uL (4.60-5.80); Red Cell Distribution Width 13.6 % (11.0-16.0)
[2021-07-22 07:00] LABS: Anion Gap 16 (12-20); Blood Urea Nitrogen 14 mg/dL (9-16); Calcium 8.3 mg/dL (8.4-10.2); Carbon Dioxide 21 mmol/L (22-29); Chloride 108 mmol/L (96-108); Creatinine Clr Calc Pharmacy 94.7; Estimated Glomerular Filt Rate > 60; Glucose Random 138 mg/dL (60-115); Potassium 5.1 mmol/L (3.3-5.1); Sodium 140 mmol/L (135-145)
[2021-07-22 07:28] LABS: White Blood Count 5.3 X10*3/uL (4.8-10.8)
[2021-07-22 07:36] VITALS: BP 119/56; PULSE 97; RESP 19; TEMP 36.3; O2SAT 96
[2021-07-22 07:44] LABS: Magnesium 1.1 mg/dL (1.6-2.6)
--- NOTE | 2021-07-22 09:16 | HE.PHANOTE ---
patient has diverticulitis, continue zosyn
--- NOTE | 2021-07-22 09:21 | MHC.CM.PN ---
pt admitted from [facility],where he will return when he is dcd
[2021-07-22] MEDS: oxyCODONE HCl Immed Release 5 MG TABLET PO ×2 (09:35→17:00)
[2021-07-22] MEDS: Magnesium Sulfate/H2O 2 GM/50 ML PIGGYBACK IV (09:36)
[2021-07-22] MEDS: busPIRone HCl 5 MG TABLET PO ×2 (09:36→19:43)
[2021-07-22] MEDS: 0.9 % Sodium Chloride Flush 3 ML SYRINGE IVFLUSH ×3 (09:37→19:44)
--- NOTE | 2021-07-22 10:39 | HO.PM.IMPN ---
Subjective Subjective Date of Service: 07/22/21 Review of Systems Follow up Physical Exam Vital Signs: Vital Signs: Last Vital Signs Temp 97.4 F 07/22/21 07:36 Pulse 97 07/22/21 07:36 Resp 19 07/22/21 07:36 BP 119/56 L 07/22/21 07:36 Pulse Ox 96 07/22/21 07:36 BMI result Body Mass Index 36.6 Appearing in no acute distress lung sounds are clear to auscultation heart regular rate rhythm, clear S1, S2 positive bowel sounds, abdomen is soft, nontender neuro patient is alert x3, no focal deficits Objective Data Active Medications Acetaminophen (Acetaminophen 325 Mg Tablet) 650 mg PO Q6H PRN PRN Reason: Pain, Mild (Pain Scale 1-3) Buspirone HCl (Buspirone Hcl 5 Mg Tablet) 5 mg PO BID COUNT INCLUDES THE [facility] Last Admin: 07/22/21 09:36 Dose: 5 mg Documented by: DIANA Fluticasone/Vilanterol (Fluticasone/Vilanterol 100/25 Blst.W.Dev) 1 puff INHALE RDAILY COUNT INCLUDES THE [facility] Last Admin: 07/22/21 08:33 Dose: Not Given Documented by: MCKENZIE Non-Admin Reason: Patient Refused Folic Acid (Folic Acid 1 Mg Tablet) 1 mg PO DAILY@1700 COUNT INCLUDES THE [facility] Last Admin: 07/21/21 16:38 Dose: 1 mg Documented by: DIANA Piperacillin Sod/Tazobactam (Sod 2.25 gm/ Sodium Chloride) 50 mls @ 100 mls/hr IV Q6H COUNT INCLUDES THE [facility] Last Infusion: 07/22/21 06:23 Dose: 0 mls/hr Documented by: YULIYA Omeprazole (Omeprazole 20 Mg Capsule.Dr) 20 mg PO BID@0630,1630 COUNT INCLUDES THE [facility] Last Admin: 07/22/21 05:24 Dose: 20 mg Documented by: YUILYA Ondansetron HCl (Ondansetron Hcl 4 Mg/2 Ml Vial) 4 mg IVPUSH Q8H PRN PRN Reason: Nausea and Vomiting Oxycodone HCl (Oxycodone Hcl Immed Release 5 Mg Tablet) 5 mg PO Q6H PRN PRN Reason: Pain, Severe (Pain Scale 7-10) Last Admin: 07/22/21 09:35 Dose: 5 mg Documented by: DIANA Pharmacy Consult (Consult Rx Perform Med Rec) 1 each MISCELLANE ONCE PRN PRN Reason: Consult order Sodium Chloride (0.9 % Sodium Chloride Flush 3 Ml Syringe) 3 ml IVFLUSH QSHIFT COUNT INCLUDES THE [facility] Last Admin: 07/22/21 09:37 Dose: 3 ml Documented by: DIANA Tamsulosin HCl (Tamsulosin Hcl 0.4 Mg Capsule) 0.4 mg PO DAILY@1700 COUNT INCLUDES THE [facility] Last Admin: 07/21/21 16:38 Dose: 0.4 mg Documented by: DIANA Thiamine HCl (Thiamine Hcl 100 Mg Tablet) 100 mg PO BEDTIME COUNT INCLUDES THE [facility] Last Admin: 07/21/21 20:25 Dose: 100 mg Documented by: YULIYA Labs CBC & Chem 7: 07/22/21 06:20 07/22/21 06:20 Labs: Laboratory Results - last 24 hr 07/21/21 07/21/21 07/22/21 09:28 12:49 06:20 MCV 94.7 MCH 31.1 MCHC 32.8 RDW 13.6 Plt Count TNP MPV 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 Absolute Nucleated RBC 0.000 Nucleated RBC % (auto) 0.0 Anion Gap Estim Creat Clear Calc Estimated GFR POC Glucose 139 H Random Glucose Calcium Magnesium Procalcitonin 0.06 07/22/21 07/22/21 06:20 06:20 MCV MCH MCHC RDW Plt Count MPV Absolute Nucleated RBC Nucleated RBC % (auto) Anion Gap 16 Estim Creat Clear Calc 94.7 Estimated GFR > 60 POC Glucose Random Glucose 138 H Calcium 8.3 L D Magnesium 1.1 L* Cancelled Procalcitonin Microbiology Microbiology Results: Microbiology 07/21/21 00:54 Blood Culture - Preliminary Blood - Venous Prelim: GPC Gram Stain only 07/20/21 23:25 Blood Culture - Preliminary Blood - Venous No growth after 24 hours. Assessment and Plan (1) Acute renal failure: Status: Acute Plan This is a 65 year old male with a PMH of alcohol abuse with dependence, hyopnatremia, COPD, DM, HFpEF, who was discharged to SNF from [facility] after he was hospitalized for alcohol withdrawal and symptomatic hyponatremia. He now returns about 1 week later with reprots of diarrhea and mental status changes (although he does not appear to be disoriented on admission). He is noted to have LAUREN and will be admitted for further work up and treatment. Community-acquired pneumonia. Consolidation noted since feb on CT Reported some shortness of breath, oxygen saturation within normal limits, no hypoxia noted Already on Zosyn for diverticulitis will add doxycycline DuoNebs Chest CT to assess for continued consolidation/aspiration Right rib pain. right posterior 11th rib fx noted on 07/11/21 Declined lidocaine patch Can use oxycodone and morphine for pain Incentive spirometer Splinting Acute Kidney Injury. SCr baseline 0.7 to 0.8. Resolved in the setting of diarrhea + infection s/p IVF follow intake and output closely no obstruction seen on imaging Acute Diverticulitis IV zosyn Hypotension. Improving due to above responded to IVF HypoMg. 1.1 repleted with IV 2gm COPD. No exacerbation DuoNebs DM sliding scale ADA diet Acute Anemia (baseline around 12-13/35-38), presenting with: 9.7/31 blood loss to be ruled out -- no jero bleeding, check occult blood repeat h/h now Chronic HFpEF monitor closely while on IVF currently hypovoluemic Full Code DVT pptx -- mechanical due to concern over acute blood loss anemia Attending Dr. Palmer In light of the patients acute kidney injury, hypotension and suspected diverticulitis - I anticipate a medically necessary 2 midnight, inpatient hospitalization for treatment with IV fluids / antibiotics and close monitoring of response. This cannot be completed in a less acute setting. Quality Stroke Does the patient have a stroke diagnosis?: No VTE Prior VTE?: No VTE Risk Level:: Medical - moderate - high VTE Device Contraindication: N/A - Device Ordered VTE Drug Contraindication: Treatment Not Indicated
[2021-07-22 11:21] VITALS: BP 115/81; PULSE 100; RESP 20; TEMP 36.4; O2SAT 95
[2021-07-22] MEDS: Morphine Sulfate 2 MG/ML CARTRIDGE IVPUSH ×2 (11:22→19:43)
[2021-07-22] MEDS: Doxycycline Hyclate 100 MG in 0.9 % Sodium Chloride 250 ML 166.67 MG IV ×2 (11:23→22:59)
[2021-07-22 11:28] LABS: Glucose, Whole Blood 143 mg/dL (60-115)
[2021-07-22] MEDS: Folic Acid 1 MG TABLET PO (16:54)
[2021-07-22] MEDS: Tamsulosin HCL 0.4 MG CAPSULE PO (16:54)
[2021-07-22] MEDS: LORazepam 2 MG/ML VIAL 1 MG IVPUSH ×2 (16:55→22:58)
[2021-07-22 19:43] VITALS: RESP 20
[2021-07-22 20:00] VITALS: BP 118/54; PULSE 104; RESP 18; TEMP 35.8; O2SAT 94
[2021-07-22] MEDS: Thiamine HCL 100 MG TABLET PO (20:29)
[2021-07-22 21:08] LABS: Glucose, Whole Blood 183 mg/dL (60-115)
[2021-07-23 06:39] LABS: Anion Gap 16 (12-20); Blood Urea Nitrogen 9 mg/dL (9-16); Calcium 8.6 mg/dL (8.4-10.2); Carbon Dioxide 22 mmol/L (22-29); Chloride 107 mmol/L (96-108); Creatinine Clr Calc Pharmacy 66.3; Estimated Glomerular Filt Rate 47; Glucose Random 137 mg/dL (60-115); Potassium 5.2 mmol/L (3.3-5.1); Sodium 140 mmol/L (135-145)
[2021-07-23 06:42] LABS: Magnesium 1.2 mg/dL (1.6-2.6)
[2021-07-23 07:19] LABS: Glucose, Whole Blood 123 mg/dL (60-115)
[2021-07-23] MEDS: Magnesium Oxide 400 MG TABLET PO (09:05)
[2021-07-23] MEDS: busPIRone HCl 5 MG TABLET PO ×2 (09:05→21:58)
[2021-07-23] MEDS: Magnesium Sulfate/H2O 2 GM/50 ML PIGGYBACK IV (09:06)
[2021-07-23] MEDS: 0.9 % Sodium Chloride Flush 3 ML SYRINGE IVFLUSH ×2 (09:06→14:06)
[2021-07-23] MEDS: oxyCODONE HCl Immed Release 5 MG TABLET PO ×3 (09:07→21:59)
[2021-07-23] MEDS: Doxycycline Hyclate 100 MG in 0.9 % Sodium Chloride 250 ML 166.67 MG IV (10:20)
[2021-07-23 11:21] VITALS: BP 116/70; PULSE 86; RESP 20; TEMP 36.7; O2SAT 96
[2021-07-23 11:29] LABS: Glucose, Whole Blood 126 mg/dL (60-115)
--- NOTE | 2021-07-23 11:45 | HO.PM.IMPN ---
Subjective Subjective Date of Service: 07/23/21 Review of Systems follow-up acute renal failure Stated that he is feeling tired today, in bed, did not want to get up Had declined medications and CT scan yesterday Physical Exam Vital Signs: Vital Signs: Last Vital Signs Temp 98.1 F 07/23/21 11:21 Pulse 86 07/23/21 11:21 Resp 20 07/23/21 11:21 BP 116/70 07/23/21 11:21 Pulse Ox 96 07/23/21 11:21 BMI result Body Mass Index 36.6 Appearing in no acute distress lung sounds are clear to auscultation heart regular rate rhythm, clear S1, S2 positive bowel sounds, abdomen is soft, nontender neuro patient is alert x3, no focal deficits Objective Data Active Medications Acetaminophen (Acetaminophen 325 Mg Tablet) 650 mg PO Q6H PRN PRN Reason: Pain, Mild (Pain Scale 1-3) Albuterol Sulfate (Albuterol Sulfate (0.083%) 2.5 Mg/3 Ml Vial.Neb) 2.5 mg INHALE RQ4H WHILE AWAKE [facility] Last Admin: 07/23/21 11:22 Dose: Not Given Documented by: FRANCISCO Non-Admin Reason: Patient Refused Buspirone HCl (Buspirone Hcl 5 Mg Tablet) 5 mg PO BID [facility] Last Admin: 07/23/21 09:05 Dose: 5 mg Documented by: MICHELLE Fluticasone/Vilanterol (Fluticasone/Vilanterol 100/25 Blst.W.Dev) 1 puff INHALE RDAILY [facility] Last Admin: 07/23/21 07:29 Dose: Not Given Documented by: FRANCISCO Non-Admin Reason: Patient Refused Folic Acid (Folic Acid 1 Mg Tablet) 1 mg PO DAILY@1700 [facility] Last Admin: 07/22/21 16:54 Dose: 1 mg Documented by: DIANA Piperacillin Sod/Tazobactam (Sod 2.25 gm/ Sodium Chloride) 50 mls @ 100 mls/hr IV Q6H [facility] Last Admin: 07/23/21 06:49 Dose: Not Given Documented by: PIEDAD Non-Admin Reason: Patient Refused Doxycycline Hyclate 100 mg/ (Sodium Chloride) 250 mls @ 166.67 mls/hr IV Q12H [facility] Last Admin: 07/23/21 10:20 Dose: 166.67 mls/hr Documented by: MICHELLE Sodium Chloride (Ns) 1,000 mls @ 100 mls/hr IVCONT .Q10H [facility] Lorazepam (Lorazepam 2 Mg/Ml Vial) 1 mg IVPUSH Q6H PRN PRN Reason: anxiety Last Admin: 07/22/21 22:58 Dose: 1 mg Documented by: PIEDAD Magnesium Oxide (Magnesium Oxide 400 Mg Tablet) 400 mg PO DAILY [facility] Last Admin: 07/23/21 09:05 Dose: 400 mg Documented by: MICHELLE Morphine Sulfate (Morphine Sulfate 2 Mg/Ml Cartridge) 2 mg IVPUSH Q4H PRN; Protocol PRN Reason: Pain, Mild (Pain Scale 1-3) Last Admin: 07/22/21 19:43 Dose: 2 mg Documented by: PIEDAD Omeprazole (Omeprazole 20 Mg Capsule.Dr) 20 mg PO BID@0630,1630 [facility] Last Admin: 07/23/21 06:49 Dose: Not Given Documented by: PIEDAD Non-Admin Reason: Patient Refused Ondansetron HCl (Ondansetron Hcl 4 Mg/2 Ml Vial) 4 mg IVPUSH Q8H PRN PRN Reason: Nausea and Vomiting Oxycodone HCl (Oxycodone Hcl Immed Release 5 Mg Tablet) 5 mg PO Q6H PRN PRN Reason: Pain, Severe (Pain Scale 7-10) Last Admin: 07/23/21 09:07 Dose: 5 mg Documented by: MICHELLE Pharmacy Consult (Consult Rx Perform Med Rec) 1 each MISCELLANE ONCE PRN PRN Reason: Consult order Sodium Chloride (0.9 % Sodium Chloride Flush 3 Ml Syringe) 3 ml IVFLUSH QSHIFT [facility] Last Admin: 07/23/21 09:06 Dose: 3 ml Documented by: MICHELLE Tamsulosin HCl (Tamsulosin Hcl 0.4 Mg Capsule) 0.4 mg PO DAILY@1700 [facility] Last Admin: 07/22/21 16:54 Dose: 0.4 mg Documented by: DIANA Thiamine HCl (Thiamine Hcl 100 Mg Tablet) 100 mg PO BEDTIME [facility] Last Admin: 07/22/21 20:29 Dose: 100 mg Documented by: HO.DESROA Labs CBC & Chem 7: 07/22/21 06:20 07/23/21 06:19 Labs: Laboratory Results - last 24 hr 07/22/21 07/23/21 07/23/21 21:02 06:19 06:19 Anion Gap 16 Estim Creat Clear Calc 66.3 Estimated GFR 47 POC Glucose 183 H Random Glucose 137 H Calcium 8.6 Magnesium 1.2 L* 07/23/21 07/23/21 07:13 11:23 Anion Gap Estim Creat Clear Calc Estimated GFR POC Glucose 123 H 126 H Random Glucose Calcium Magnesium Microbiology Microbiology Results: Microbiology 07/21/21 00:54 Blood Culture - Preliminary Blood - Venous Enterococcus/Streptococcus sp Coag negative Staphylococcus Gram positive cocci 07/20/21 23:25 Blood Culture - Preliminary Blood - Venous No growth after 48 hours. Assessment and Plan (1) Acute renal failure: Status: Acute Plan This is a 65 year old male with a PMH of alcohol abuse with dependence, hyopnatremia, COPD, DM, HFpEF, who was discharged to SN[place] [facility] [place] after he was hospitalized for alcohol withdrawal and symptomatic hyponatremia. He now returns about 1 week later with reprots of diarrhea and mental status changes (although he does not appear to be disoriented on admission). He is noted to have LAUREN and will be admitted for further work up and treatment. Community-acquired pneumonia. Consolidation noted since jun on CT Reported some shortness of breath, oxygen saturation within normal limits, no hypoxia noted Already on Zosyn for diverticulitis will add doxycycline DuoNebs Chest CT did not show consolidation or aspiration Right rib pain. right posterior 11th rib fx noted on 07/11/21 Declined lidocaine patch Can use oxycodone and morphine for pain Incentive spirometer Splinting Acute Kidney Injury. SCr baseline 0.7 to 0.8. elevated today at 1.50 in the setting of diarrhea + infection follow intake and output closely no obstruction seen on imaging Restart IV fluids Acute Diverticulitis IV zosyn Pain Management Supportive care GI consult Hypotension. Improving due to above responded to IVF HypoMg. still low repleted with IV 2gm, also added oral magnesium daily COPD. No exacerbation DuoNebs DM sliding scale ADA diet Acute Anemia (baseline around 12-13/35-38), presenting with: 9.7/31 blood loss to be ruled out -- no jero bleeding, check occult blood repeat h/h now Chronic HFpEF monitor closely while on IVF currently hypovoluemic Full Code DVT pptx -- mechanical due to concern over acute blood loss anemia Attending Dr. Palmer Patient requires continued hospitalization for continued treatment of acute renal failure necessitating IV fluids, antibiotics for diverticulitis and pending gastroenterology consult In light of the patients acute kidney injury, hypotension and suspected diverticulitis - I anticipate a medically necessary 2 midnight, inpatient hospitalization for treatment with IV fluids / antibiotics and close monitoring of response. This cannot be completed in a less acute setting. Quality Stroke Does the patient have a stroke diagnosis?: No VTE Prior VTE?: No VTE Risk Level:: Medical - moderate - high VTE Device Contraindication: N/A - Device Ordered VTE Drug Contraindication: Treatment Not Indicated
[2021-07-23] MEDS: Piperacillin Sodium/Tazobactam 2.25 GM in 0.9 % Sodium Chloride 50 ML IV ×3 (11:48→23:58)
[2021-07-23] MEDS: 0.9 % Sodium Chloride 1,000 ML 100 ML IVCONT ×2 (12:51→21:59)
--- NOTE | 2021-07-23 13:55 | MHC.CM.PN ---
per rounds pt to have a psych consult
[2021-07-23] MEDS: Morphine Sulfate 2 MG/ML CARTRIDGE IVPUSH (14:05)
[2021-07-23 15:13] VITALS: BP 118/66; PULSE 80; RESP 20; TEMP 37.2; O2SAT 93
[2021-07-23] MEDS: Omeprazole 20 MG CAPSULE.DR PO (16:09)
[2021-07-23] MEDS: Tamsulosin HCL 0.4 MG CAPSULE PO (16:09)
[2021-07-23] MEDS: Folic Acid 1 MG TABLET PO (16:09)
[2021-07-23 16:28] LABS: Glucose, Whole Blood 130 mg/dL (60-115)
--- NOTE | 2021-07-23 16:40 | P.CNPS_ITS ---
History of Present Illness Date of Service: 07/23/21 Chief Complaint: Acute Renal Failure Diarrhea Reason for Consult: severe anxiety Requesting physician: Patsy Greco Discussed with referring provider: Yes Sources of Information: patient interviewed and chart reviewed HPI Narrative: Patient is a 65 year old male with multiple medical concerns, [place] [facility] [place] 07/15/21 for treatment of alcohol withdrawal and severe symptomatic hyponatreamia. He was discharged to a SNF and has returned to ED with sx of diarrhea 3 to 4 times a daily with associated diffuse abdominal pain, nausea and several episodes of vomiting. His oral intake had also decreased. Acute renal failure, possible diverticulitis. He was admitted for further care and treatment. Psychiatry was asked to meet with patient regarding report of severe anxiety. Patient was resting in bed, somewhat disheveled. He was irritable upon approach. He was alert and oriented. Reports that the BuSpar helps with his anxiety. He states that he currently is not experiencing excessive anxiety at this time, but rather in exacerbation of it related to his pain. He denies any thought of SI, or any other psychiatric symptoms at this time. He states that he believes once he is able to receive his medications, including BuSpar, p.r.n. lorazepam, and opioid pain medications, his symptoms will improve. Medical Evaluation Reviewed: Yes Review of Systems Review of Systems A full review of systems was completed and was negative with the exception of pertinent positives noted in history of the presenting illness (HPI). [facility] Medical History (Updated 07/23/21 @ 17:02 by Belem Galeas) LAUREN (acute kidney injury) Alcohol abuse COPD (chronic obstructive pulmonary disease) Diabetes mellitus type 1 Diastolic dysfunction Diastolic heart failure Fall HLD (hyperlipidemia) Hypertension Nonrheumatic aortic (valve) stenosis Obesity Surgical History (Updated 07/21/21 @ 09:27 by Mike Palmer MD) H/O elbow surgery H/O shoulder surgery History of hydrocelectomy S/P TURP Diagnostics Vital Signs (24Hr): Vital Signs - 24 hr 07/22/21 19:43 07/22/21 20:00 07/23/21 11:21 Temperature 96.5 F L 98.1 F Pulse Rate 104 H 86 Respiratory Rate 20 18 20 Blood Pressure 118/54 L 116/70 Pulse Oximetry 94 96 07/23/21 15:13 Temperature 98.9 F Pulse Rate 80 Respiratory Rate 20 Blood Pressure 118/66 Pulse Oximetry 93 BMI result Body Mass Index 36.6 Labs Results: 07/22/21 06:20 07/23/21 06:19 Labs: Laboratory Results - last 48 hr 07/22/21 07/22/21 07/22/21 06:20 06:20 06:20 WBC 5.3 RBC 3.22 L Hgb 10.0 L Hct 30.5 L MCV 94.7 MCH 31.1 MCHC 32.8 RDW 13.6 Plt Count 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6 Magnesium 07/23/21 07/23/21 07/23/21 06:19 07:13 11:23 WBC RBC Hgb Hct MCV MCH MCHC RDW Plt Count MPV Absolute Nucleated RBC Nucleated RBC % (auto) Sodium Potassium Chloride Carbon Dioxide Anion Gap BUN Creatinine Estim Creat Clear Calc Estimated GFR POC Glucose 123 H 126 H Random Glucose Calcium Magnesium 1.2 L* 07/23/21 16:20 WBC RBC Hgb Hct MCV MCH MCHC RDW Plt Count MPV Absolute Nucleated RBC Nucleated RBC % (auto) Sodium Potassium Chloride Carbon Dioxide Anion Gap BUN Creatinine Estim Creat Clear Calc Estimated GFR POC Glucose 130 H Random Glucose Calcium Magnesium Imaging Radiology Impressions: ITS Impressions Abdomen/Pelvis CT 07/21/21 00:25 IMPRESSION: 1. Colonic diverticulosis with new stranding adjacent to the distal descending colon, concerning for diverticulitis. 2. Redemonstrated patchy pulmonary opacities at the lung bases, suspicious for pneumonia or possibly sequelae of aspiration. 3. Small hiatal hernia. Fleischner guidelines were followed. Head CT 07/21/21 00:25 IMPRESSION: No acute intracranial pathology. Chest X-Ray 07/21/21 00:45 IMPRESSION: Patchy opacities in the right lung base are stable. Chest CT 07/22/21 17:35 IMPRESSION: Evolving infiltrates in the lungs with significant improvement since the prior exam with some areas appearing more masslike as described above. Fleischner guidelines were followed. Mental Status Exam Mental Status Exam Narrative: Patient was resting on side. Appear to be in pain. Irritable, anxiuos mood / affect. Reports ?I am in so much pain, it is thickening ?. Denies SI, denies any other psychiatric symptoms at this time. Patient Appearance: Fatigued and Disheveled Patient Orientation: Person, Place, Time and Situation Level of Consciousness: Awake, Appropriate and Alert Patient Behavior: Appropriate, Cooperative and Good Eye Contact Mood Description: Anxious Affect Description: Anxious and Angry (irritable) Patient Cognition Impaired: No Ability to Follow Directions: Good Speech Pattern: Clear Memory Description: Intact Hallucinations: None Delusions: Not Present Thought Process: Intact Thought Content: positive for Intact Depressive Symptoms: Increased Anxiety and Increased Irritability Judgement: Fair Judgement and Insight: fair but adequate Medications Medications Current Medications Acetaminophen (Acetaminophen 325 Mg Tablet) 650 mg PO Q6H PRN PRN Reason: Pain, Mild (Pain Scale 1-3) Albuterol Sulfate (Albuterol Sulfate (0.083%) 2.5 Mg/3 Ml Vial.Neb) 2.5 mg INHALE RQ4H WHILE AWAKE [facility] Last Admin: 07/23/21 15:23 Dose: Not Given Documented by: Buspirone HCl (Buspirone Hcl 5 Mg Tablet) 5 mg PO BID [facility] Last Admin: 07/23/21 09:05 Dose: 5 mg Documented by: Fluticasone/Vilanterol (Fluticasone/Vilanterol 100/25 Blst.W.Dev) 1 puff INHALE RDAILY [facility] Last Admin: 07/23/21 07:29 Dose: Not Given Documented by: Folic Acid (Folic Acid 1 Mg Tablet) 1 mg PO DAILY@1700 [facility] Last Admin: 07/23/21 16:09 Dose: 1 mg Documented by: Piperacillin Sod/Tazobactam (Sod 2.25 gm/ Sodium Chloride) 50 mls @ 100 mls/hr IV Q6H [facility] Last Infusion: 07/23/21 12:25 Dose: Infused Documented by: Doxycycline Hyclate 100 mg/ (Sodium Chloride) 250 mls @ 166.67 mls/hr IV Q12H [facility] Last Infusion: 07/23/21 12:25 Dose: Infused Documented by: Sodium Chloride (Ns) 1,000 mls @ 100 mls/hr IVCONT .Q10H [facility] Last Admin: 07/23/21 12:51 Dose: 100 mls/hr Documented by: Lorazepam (Lorazepam 2 Mg/Ml Vial) 1 mg IVPUSH Q6H PRN PRN Reason: anxiety Last Admin: 07/22/21 22:58 Dose: 1 mg Documented by: Magnesium Oxide (Magnesium Oxide 400 Mg Tablet) 400 mg PO DAILY [facility] Last Admin: 07/23/21 09:05 Dose: 400 mg Documented by: Morphine Sulfate (Morphine Sulfate 2 Mg/Ml Cartridge) 2 mg IVPUSH Q4H PRN; Protocol PRN Reason: Pain, Mild (Pain Scale 1-3) Last Admin: 07/23/21 14:05 Dose: 2 mg Documented by: Omeprazole (Omeprazole 20 Mg Capsule.) 20 mg PO BID@0630,1630 [facility] Last Admin: 07/23/21 16:09 Dose: 20 mg Documented by: Ondansetron HCl (Ondansetron Hcl 4 Mg/2 Ml Vial) 4 mg IVPUSH Q8H PRN PRN Reason: Nausea and Vomiting Oxycodone HCl (Oxycodone Hcl Immed Release 5 Mg Tablet) 5 mg PO Q6H PRN PRN Reason: Pain, Severe (Pain Scale 7-10) Last Admin: 07/23/21 16:10 Dose: 5 mg Documented by: Pharmacy Consult (Consult Rx Perform Med Rec) 1 each MISCELLANE ONCE PRN PRN Reason: Consult order Sodium Chloride (0.9 % Sodium Chloride Flush 3 Ml Syringe) 3 ml IVFLUSH QSHIFT [facility] Last Admin: 07/23/21 14:06 Dose: 3 ml Documented by: Tamsulosin HCl (Tamsulosin Hcl 0.4 Mg Capsule) 0.4 mg PO DAILY@1700 [facility] Last Admin: 07/23/21 16:09 Dose: 0.4 mg Documented by: Thiamine HCl (Thiamine Hcl 100 Mg Tablet) 100 mg PO BEDTIME [facility] Last Admin: 07/22/21 20:29 Dose: 100 mg Documented by: Allergies Allergies Allergy/AdvReac Type Severity Reaction Status Date / Time ENVIRONMENTAL Allergy Mild SNEEZING, Uncoded 07/11/21 10:06 WATERY EYES Assessment & Plan Assessment & Plan (1) Anxiety: Status: Acute Code(s): F41.9 - Anxiety disorder, unspecified Assessment and Plan: Patient acknowledges he has anxiety, receives scheduled BuSpar with positive affect. Reports that his increased level of anxiety today is directly related to his level of pain. Discussed medications with him, including his scheduled BuSpar, p.r.n. lorazepam, p.r.n. pain medications. Patient asked when he can X receive these medications, this information was relayed to his nurse. Plan 1. Continue with current medications available to help treat anxiety, including his p.r.n. lorazepam, scheduled BuSpar, opioid pain medications as appropriate. 2. Patient can follow-up with his outpatient provider for ongoing BuSpar ([facility] prescribes it) upon discharge. This information was shared with Patsy Greco NP, via secure messaging system I spent minutes with the patient and/or on the patient floor today, greater than?50% of which was spent counseling/coordinating care.
[2021-07-23 19:37] VITALS: BP 138/69; PULSE 90; RESP 20; TEMP 37; O2SAT 97
[2021-07-23 20:30] LABS: Glucose, Whole Blood 122 mg/dL (60-115)
[2021-07-23] MEDS: Thiamine HCL 100 MG TABLET PO (21:58)
[2021-07-23 23:13] VITALS: BP 113/67; PULSE 88; RESP 18; TEMP 36.7; O2SAT 95
--- NOTE | 2021-07-24 02:32 | CONS_ITS ---
DATE OF SERVICE: 07/23/2021 REFERRING PHYSICIAN: Patsy Greco NP REASON FOR CONSULTATION: Diverticulitis. HISTORY OF PRESENT ILLNESS: The patient is a pleasant 65-year-old man, who was admitted to the hospital on July 21 after presenting to the emergency department with complaints of diarrhea. This began about 3 days prior to admission and was accompanied by generalized abdominal pain, nausea and vomiting. He denies any hematemesis or melena and did not have any rectal bleeding. In the emergency department, he was initially hypotensive and had an elevated creatinine and was given IV antibiotics after CT scanning was obtained, which showed changes consistent with diverticulitis with stranding in the distal descending colon, but no abscess or perforation. Since admission, he reports improvement in his abdominal pain and has not had any diarrhea today. Stool occult blood testing has been positive. He describes undergoing colonoscopy last approximately 10 years ago or more and believes this was normal. PAST MEDICAL HISTORY: 1. Alcohol abuse and history of esophagitis. 2. COPD. 3. Hyponatremia. 4. Diabetes. 5. Hyperlipidemia. 6. Hypertension. 7. Aortic stenosis. CURRENT MEDICATIONS: His current medication list is reviewed in the chart. ALLERGIES: THERE ARE NO REPORTED DRUG ALLERGIES. FAMILY HISTORY: This is reviewed in the electronic medical record and is noncontributory. SOCIAL HISTORY: He has been in rehab and has not been drinking. REVIEW OF SYSTEMS: SKIN: No pruritus. HEENT: Negative. CARDIOPULMONARY: No shortness of breath or chest pain. GASTROINTESTINAL: As above. GENITOURINARY: Negative. NEUROPSYCHIATRIC: Negative. PHYSICAL EXAMINATION: GENERAL: Shows a pleasant male, lying in bed. VITAL SIGNS: Reviewed in the electronic medical record and are stable. SKIN: Anicteric. HEENT: Shows no scleral icterus. NECK: Without lymphadenopathy or thyromegaly. LUNGS: Show decreased breath sounds bilaterally. HEART: Shows regular rate and rhythm. S1, S2. No murmur. ABDOMEN: Soft without focal masses or tenderness. Bowel sounds are present. No organomegaly is noted. EXTREMITIES: Show 1 mm to 2 mm pretibial pitting edema. Laboratory data and CT scanning are reviewed. IMPRESSION AND PLAN: Diverticulitis. His x-ray findings and presentation appear consistent with uncomplicated diverticulitis. I agree with treating him as you are doing with antibiotics. I would obtain stool specimens to rule out any treatable infectious etiology underlying his diarrhea. I did discuss with him that he should undergo colonoscopy approximately 10 to 12 weeks after his acute episode of diverticulitis has resolved. Thanks for asking me to see him. I will follow him in the hospital with you. MD LITA Colon/ROYAL / [id number]
[2021-07-24 04:00] VITALS: BP 126/61; PULSE 87; RESP 18; TEMP 36.3; O2SAT 94
[2021-07-24] MEDS: Piperacillin Sodium/Tazobactam 2.25 GM in 0.9 % Sodium Chloride 50 ML IV ×3 (06:16→18:27)
[2021-07-24] MEDS: Omeprazole 20 MG CAPSULE.DR PO ×2 (06:17→16:05)
[2021-07-24] MEDS: Magnesium Oxide 400 MG TABLET PO (08:18)
[2021-07-24] MEDS: oxyCODONE HCl Immed Release 5 MG TABLET PO (08:18)
[2021-07-24] MEDS: busPIRone HCl 5 MG TABLET PO ×2 (08:18→19:42)
[2021-07-24] MEDS: 0.9 % Sodium Chloride 1,000 ML 100 ML IVCONT (08:19)
[2021-07-24 11:11] LABS: Glucose, Whole Blood 96 mg/dL (60-115)
[2021-07-24] MEDS: LORazepam 2 MG/ML VIAL 1 MG IVPUSH (11:45)
--- NOTE | 2021-07-24 11:48 | P.PNIM_ITS ---
Subjective Subjective Date of Service: 07/24/21 Interval History: seen and examined this morning upset that labs are drawn so early in the morning, and previously refused lab draws has ongoing abdominal pain, denies any nausea, vomiting or diarrhea Review of Systems Review of Systems: Yes all other systems are reviewed and are negative Constitutional Constitutional: Denies chills and Denies fever(s) Cardiovascular Cardiovascular: Denies chest pain and Denies dyspnea Respiratory Respiratory: Denies cough and Denies dyspnea Gastrointestinal Gastrointestinal: Reports abdominal pain, Denies diarrhea, Denies nausea and Denies vomiting Physical Exam Vital Signs: Vital Signs: Last Vital Signs Temp 97.4 F 07/24/21 04:00 Pulse 87 07/24/21 04:00 Resp 18 07/24/21 04:00 BP 126/61 07/24/21 04:00 Pulse Ox 94 07/24/21 04:00 BMI result Body Mass Index 36.6 Const: Other: uncooperative, refusing labs at times General: alert and awake Resp: Effort & Inspection: normal respiratory effort and able to speak in complete sentences Cardio: Rate: regular rate Heart sounds: S1 normal heart sound present and S2 normal heart sound present GI: Other: soft, non-distended; mild tenderness left side Skin: Other: right groi tlc in place Extrem: Other: no lege edema Objective Data Active Medications Acetaminophen (Acetaminophen 325 Mg Tablet) 650 mg PO Q6H PRN PRN Reason: Pain, Mild (Pain Scale 1-3) Albuterol Sulfate (Albuterol Sulfate (0.083%) 2.5 Mg/3 Ml Vial.Neb) 2.5 mg INHALE RQ4H WHILE AWAKE [facility] Last Admin: 07/24/21 07:36 Dose: Not Given Documented by: FRANCISCO Non-Admin Reason: Patient Refused Buspirone HCl (Buspirone Hcl 5 Mg Tablet) 5 mg PO BID [facility] Last Admin: 07/24/21 08:18 Dose: 5 mg Documented by: SHERRI Fluticasone/Vilanterol (Fluticasone/Vilanterol 100/25 Blst.W.Dev) 1 puff INHALE RDAILY [facility] Last Admin: 07/24/21 07:36 Dose: Not Given Documented by: FRANCISCO Non-Admin Reason: Patient Refused Folic Acid (Folic Acid 1 Mg Tablet) 1 mg PO DAILY@1700 [facility] Last Admin: 07/23/21 16:09 Dose: 1 mg Documented by: MICHELLE Piperacillin Sod/Tazobactam (Sod 2.25 gm/ Sodium Chloride) 50 mls @ 100 mls/hr IV Q6H [facility] Last Admin: 07/24/21 11:45 Dose: 100 mls/hr Documented by: SHERRI Vancomycin HCl 2,000 mg/ (Sodium Chloride) 540 mls @ 270 mls/hr IV ONCE ONE Stop: 07/24/21 13:59 Lorazepam (Lorazepam 2 Mg/Ml Vial) 1 mg IVPUSH Q6H PRN PRN Reason: anxiety Last Admin: 07/24/21 11:45 Dose: 1 mg Documented by: SHERRI Magnesium Oxide (Magnesium Oxide 400 Mg Tablet) 400 mg PO DAILY [facility] Last Admin: 07/24/21 08:18 Dose: 400 mg Documented by: SHERRI Morphine Sulfate (Morphine Sulfate 2 Mg/Ml Cartridge) 2 mg IVPUSH Q4H PRN; Prot ocol PRN Reason: Pain, Mild (Pain Scale 1-3) Last Admin: 07/23/21 14:05 Dose: 2 mg Documented by: MICHELLE Omeprazole (Omeprazole 20 Mg Capsule.Dr) 20 mg PO BID@0630,1630 [facility] Last Admin: 07/24/21 06:17 Dose: 20 mg Documented by: MICHELLE Ondansetron HCl (Ondansetron Hcl 4 Mg/2 Ml Vial) 4 mg IVPUSH Q8H PRN PRN Reason: Nausea and Vomiting Oxycodone HCl (Oxycodone Hcl Immed Release 5 Mg Tablet) 5 mg PO Q6H PRN PRN Reason: Pain, Severe (Pain Scale 7-10) Last Admin: 07/24/21 08:18 Dose: 5 mg Documented by: SHERRI Pharmacy Consult (Consult Rx Perform Med Rec) 1 each MISCELLANE ONCE PRN PRN Reason: Consult order Pharmacy Consult (Consult Rx Vancomycin Dosing) 1 each MISCELLANE DAILY PRN PRN Reason: Consult order Sodium Chloride (0.9 % Sodium Chloride Flush 3 Ml Syringe) 3 ml IVFLUSH QSHIFT [facility] Last Admin: 07/24/21 07:43 Dose: Not Given Documented by: SHERRI Non-Admin Reason: IV Running Tamsulosin HCl (Tamsulosin Hcl 0.4 Mg Capsule) 0.4 mg PO DAILY@1700 [facility] Last Admin: 07/23/21 16:09 Dose: 0.4 mg Documented by: MICHELLE Thiamine HCl (Thiamine Hcl 100 Mg Tablet) 100 mg PO BEDTIME [facility] Last Admin: 07/23/21 21:58 Dose: 100 mg Documented by: JIMBO Labs CBC & Chem 7: 07/22/21 06:20 07/24/21 15:03 Labs: Laboratory Results - last 24 hr 07/23/21 07/23/21 07/24/21 16:20 20:26 11:01 POC Glucose 130 H 122 H 96 Microbiology Microbiology Results: Microbiology 07/21/21 00:54 Blood Culture - Preliminary Blood - Venous Enterococcus faecalis Coag negative Staphylococcus Enterococcus faecium Assessment and Plan (1) COPD (chronic obstructive pulmonary disease): Status: Acute (2) Bacteremia: Status: Acute Plan This is a 65 year old male with a PMH of alcohol abuse with dependence, hyopnatremia, COPD, DM, HFpEF, who was discharged to SNF from [facility] [place] after he was hospitalized for alcohol withdrawal and symptomatic hyponatremia. He now returns about 1 week later with reprots of diarrhea and mental status changes (although he does not appear to be disoriented on admission). He is noted to have LAUREN and will be admitted for further work up and treatment. Community-acquired pneumonia. Consolidation noted since jun on CT contiue vanco/zosyn seen by pulmonology due to abnormal chest CT with concern for mass recommend abx x 8 days not likely mass, but should follow up with pulm as outpatient continue DuoNebs Bacteremia probably secondary to abdominal pathology BCx growing enterococcus faecalis, enterococcus faecium and coag negative staff continue iv vanco and zosyn ID consult repeat BCx Right rib pain. right posterior 11th rib fx noted on 07/11/21 Declined lidocaine patch Can use oxycodone and morphine for pain Incentive spirometry Acute Kidney Injury. SCr baseline 0.7 to 0.8. improved to 0.9 today in the setting of diarrhea + infection no obstruction seen on imaging Restart IV fluids Acute Diverticulitis continue IV zosyn Pain Management Supportive care seen by GI, agree with current management Hypotension. BP Improving due to above responded to IVF HypoMg. still low repleted with IV 2gm, also added oral magnesium daily Acute Anemia (baseline around 12-13/35-38), presenting with: .12/07 stool occult positive likely r/t diverticulitis follow cbc COPD. No exacerbation DuoNebs DM sliding scale ADA diet Chronic HFpEF monitor closely while on IVF currently hypovoluemic Full Code DVT pptx -- mechanical due to concern over acute blood loss anemia Attending Dr. Palmer Patient requires continued hospitalization for continued treatment of acute renal failure necessitating IV fluids, antibiotics for diverticulitis and bacteremia and pending ID consult as well as severe hypo magnesemia putting him at risk for arrhythmia necessitating tele monitoring Quality Stroke Does the patient have a stroke diagnosis?: No VTE Prior VTE?: No VTE Risk Level:: Medical - moderate - high VTE Device Contraindication: N/A - Device Ordered VTE Drug Contraindication: Treatment Not Indicated
[2021-07-24] MEDS: ondansetron HCL 4 MG/2 ML VIAL IVPUSH (11:56)
[2021-07-24 12:00] VITALS: BP 103/47; PULSE 99; RESP 20; TEMP 36.4; O2SAT 93
--- NOTE | 2021-07-24 15:02 | PC.NURSE ---
TLC from right groin removed by Dr Palmer. Pressure dsg in place.
[2021-07-24 15:26] LABS: Estimated Glomerular Filt Rate > 60
[2021-07-24 15:30] LABS: Anion Gap 13 (12-20); Blood Urea Nitrogen 4 mg/dL (9-16); Calcium 8.1 mg/dL (8.4-10.2); Carbon Dioxide 27 mmol/L (22-29); Chloride 103 mmol/L (96-108); Creatinine Clr Calc Pharmacy 102.6; Estimated Glomerular Filt Rate > 60; Glucose Random 152 mg/dL (60-115); Sodium 138 mmol/L (135-145)
[2021-07-24 15:41] LABS: Magnesium 1.2 mg/dL (1.6-2.6)
[2021-07-24] MEDS: Folic Acid 1 MG TABLET PO (16:05)
[2021-07-24] MEDS: Tamsulosin HCL 0.4 MG CAPSULE PO (16:06)
[2021-07-24] MEDS: Magnesium Sulfate/H2O 2 GM/50 ML PIGGYBACK IV ×2 (16:06→19:41)
[2021-07-24] MEDS: 0.9 % Sodium Chloride Flush 3 ML SYRINGE IVFLUSH ×2 (16:06→19:42)
--- NOTE | 2021-07-24 16:37 | PHA.PROG ---
Admission Date/Time: July 21, 2021 09:16 Indication: bacteremia Weight in k.47 kg Adjusted body weight in K.5 kg [place] body weight in K.6 kg Obesity Dosing Indication % IBW: Serum Creatinine - Last 168 Hours 07/20/21 07/21/21 07/22/21 23:25 09:28 06:20 Creatinine 3.62 H 1.75 H 1.05 07/23/21 07/24/21 07/24/21 06:19 15:03 15:03 Creatinine 1.50 H 0.97 0.93 Estimated CrCl and GFR - Last 168 Hours 07/20/21 07/21/21 07/22/21 23:25 09:28 06:20 Estim Creat Clear Calc 27.4 56.8 94.7 Estimated GFR 17 39 > 60 07/23/21 07/24/21 07/24/21 06:19 15:03 15:03 Estim Creat Clear Calc 66.3 102.6 107.0 Estimated GFR 47 > 60 > 60 Vancomycin Loading Dose: 2000 mg Current Vancomycin Dosing Regimen: 1750 mg q24h Vancomycin Monitoring using AUC goal of 400 - 600 range with trough as surrogate marker: predicted AUC 449 tox 5 % Date and Time for next Vancomycin Level to be drawn: 07/26/21 @1000 Pharmacist Comments on Vancomycin Plan: obese model used Vancomycin dosing will take advantage of [employer] as a clinical decision support tool that uses Bayesian modeling to calculate individual patient's pharmacokinetic parameters and forecast the patient's drug concentration time course with the target goal AUC 24 range of 400 - 600 mg/L/hr.
--- NOTE | 2021-07-24 16:46 | P.CONPL_ITS ---
History of Present Illness History of Present Illness Consult date: 07/24/21 Chief complaint: Acute Renal Failure Diarrhea Narrative: This is an inpatient pulmonary consultation. This is a 65 year old M with a PMH as outlined below who was admitted to [facility] [place] from 07/11/21 to 07/15/21 for treatment of alcohol withdrawal and severe symptomatic hyponatreamia. He was discharged a SNF and now returns with reports of decreased urine output and changes in mental status. Patient is seen and examined in the ED around 9AM. He reports that he was doing fairly well at the SNF until about 2 to 3 days ago where he started having diarrhea 3 to 4 times a daily with associated diffuse abdominal pain, na usea and several episodes of vomiting. His oral intake had also decreased. There are no reports of fevers or chills. Upon arrival to the ED, he was noted to be hypotensive in the 60s to 70s systolic which improved with 3L of IVF. His blood work showed LAUREN with a SCr of 3.6 (it was 0.86 1 week prior). His imaging studies showed concern over diverticulitis. He was treated with IV cefepime + flagy. Per history of the ED staff, the patient has been evaluated by the cotton ball machine tender and at this time, he is deemded stable for admission under the hospitalist service. The patient did have a CT scan of the chest personally by me. Actually demonstrated interval improvement in the airspace disease that he had bilaterally consistent with a pneumonias. Some of the areas appear to be more nodular densities although I still believe this is part of the infectious process. The patient is currently on antibiotics that are covering for respiratory etiologies as well. Currently his breathing feels better. Review of Systems Review of Systems: Constitutional: Positive withdrawal symptoms, No Fever, No Chills ENT/Mouth: No sore throat, No Rhinorrhea Eyes: No Eye Pain, No Swelling, No Redness Cardiovascular: Positive Chest Pain, No SOB Respiratory: No Cough, No Sputum Gastrointestinal: No Nausea, No Vomiting, positive Diarrhea, positive abdominal Pain Genitourinary: No Dysuria, No Hematuria Musculoskeletal: No joint pain, No Myalgias, No Joint Swelling Skin: No Skin Lesions, No rash Neuro: No Weakness, No Numbness, No Loss of Consciousness, No Dizziness, No Headache Psych: Positive alcohol abuse, No Anxiety, No Depression, No SI/HI/AH/VH Heme/Lymph: No Bruising, No Bleeding,No Lymphadenopathy Endocrine: No Polyuria, No Polydipsia Yes all other systems are reviewed and are negative [facility] Past Medical History Medical History (Updated 07/24/21 @ 16:49 by Yasmany Greco MD) LAUREN (acute kidney injury) Alcohol abuse COPD (chronic obstructive pulmonary disease) Diabetes mellitus type 1 Diastolic dysfunction Diastolic heart failure Fall HLD (hyperlipidemia) Hypertension Nonrheumatic aortic (valve) stenosis Obesity Family History Family History Father Diabetes Mother Diabetes Surgical History Surgical History (Updated 07/21/21 @ 09:27 by Mike Palmer MD) H/O elbow surgery H/O shoulder surgery History of hydrocelectomy S/P TURP Social History Social History Household Members: None Housing: Residential Do you presently have visiting nurse or other home services: Yes (used to live [place] [facility] [place] been in [place] [facility] ) Alcohol intake: current Alcohol intake frequency: 3 or more drinks per day Alcohol type: hard liquor Patient Tobacco Use Status: Former Tobacco user Tobacco use type: Cigar e-Cigarette/Vaping Use: Currently Using Second Hand Smoke Exposure: No Advance Directives Date on File: 10/11/20 service: No Current occupational status: unemployed and disabled Meds Allergies Allergy/AdvReac Type Severity Reaction Status Date / Time ENVIRONMENTAL Allergy Mild SNEEZING, Uncoded 07/11/21 10:06 WATERY EYES Active Medications: Current Medications Acetaminophen (Acetaminophen 325 Mg Tablet) 650 mg PO Q6H PRN PRN Reason: Pain, Mild (Pain Scale 1-3) Albuterol Sulfate (Albuterol Sulfate (0.083%) 2.5 Mg/3 Ml Vial.Neb) 2.5 mg INHALE RQ4H WHILE AWAKE [facility] Last Admin: 07/24/21 14:55 Dose: Not Given Documented by: Buspirone HCl (Buspirone Hcl 5 Mg Tablet) 5 mg PO BID [facility] Last Admin: 07/24/21 08:18 Dose: 5 mg Documented by: Fluticasone/Vilanterol (Fluticasone/Vilanterol 100/25 Blst.W.Dev) 1 puff INHALE RDAILY [facility] Last Admin: 07/24/21 07:36 Dose: Not Given Documented by: Folic Acid (Folic Acid 1 Mg Tablet) 1 mg PO DAILY@1700 [facility] Last Admin: 07/24/21 16:05 Dose: 1 mg Documented by: Piperacillin Sod/Tazobactam (Sod 2.25 gm/ Sodium Chloride) 50 mls @ 100 mls/hr IV Q6H [facility] Last Infusion: 07/24/21 12:21 Dose: Infused Documented by: Magnesium Sulfate (Magnesium Sulfate/H2o) 2 gm in 50 mls @ 25 mls/hr IV ONCE ONE Stop: 07/24/21 17:53 Last Admin: 07/24/21 16:06 Dose: 25 mls/hr Documented by: Vancomycin HCl 1,000 mg/Vancomycin HCl 750 mg/ Sodium Chloride 535 mls @ 267.5 mls/hr IV Q24H [facility] Lorazepam (Lorazepam 2 Mg/Ml Vial) 1 mg IVPUSH Q6H PRN PRN Reason: anxiety Last Admin: 07/24/21 11:45 Dose: 1 mg Documented by: Magnesium Oxide (Magnesium Oxide 400 Mg Tablet) 400 mg PO DAILY [facility] Last Admin: 07/24/21 08:18 Dose: 400 mg Documented by: Morphine Sulfate (Morphine Sulfate 2 Mg/Ml Cartridge) 2 mg IVPUSH Q4H PRN; Protocol PRN Reason: Pain, Mild (Pain Scale 1-3) Last Admin: 07/23/21 14:05 Dose: 2 mg Documented by: Omeprazole (Omeprazole 20 Mg Capsule.Dr) 20 mg PO BID@0630,1630 [facility] Last Admin: 07/24/21 16:05 Dose: 20 mg Documented by: Ondansetron HCl (Ondansetron Hcl 4 Mg/2 Ml Vial) 4 mg IVPUSH Q8H PRN PRN Reason: Nausea and Vomiting Last Admin: 07/24/21 11:56 Dose: 4 mg Documented by: Oxycodone HCl (Oxycodone Hcl Immed Release 5 Mg Tablet) 5 mg PO Q6H PRN PRN Reason: Pain, Severe (Pain Scale 7-10) Last Admin: 07/24/21 08:18 Dose: 5 mg Documented by: Pharmacy Consult (Consult Rx Perform Med Rec) 1 each MISCELLANE ONCE PRN PRN Reason: Consult order Pharmacy Consult (Consult Rx Vancomycin Dosing) 1 each MISCELLANE DAILY PRN PRN Reason: Consult order Sodium Chloride (0.9 % Sodium Chloride Flush 3 Ml Syringe) 3 ml IVFLUSH QSHIFT [facility] Last Admin: 07/24/21 16:06 Dose: 3 ml Documented by: Tamsulosin HCl (Tamsulosin Hcl 0.4 Mg Capsule) 0.4 mg PO DAILY@1700 [facility] Last Admin: 07/24/21 16:06 Dose: 0.4 mg Documented by: Thiamine HCl (Thiamine Hcl 100 Mg Tablet) 100 mg PO BEDTIME [facility] Last Admin: 07/23/21 21:58 Dose: 100 mg Documented by: Home Medications Medication Instructions Recorded Confirmed Last Taken Type albuterol sulfate 1 amp INHALATION QID 12/29/20 07/21/21 Unknown History albuterol sulfate 90 mcg/actuation 2 puff INHALATION Q6H PRN 12/29/20 07/21/21 Unknown History aerosol inhaler blood sugar diagnostic (FreeStyle 12/29/20 02/04/21 Unknown History Lite Strips) folic acid 1 mg tablet 1 tab PO DAILY@1700 12/29/20 07/21/21 Unknown History lisinopril 10 mg tablet 1 tab PO DAILY 12/29/20 07/21/21 Unknown History simvastatin 20 mg tablet 1 tab PO BEDTIME 12/29/20 07/21/21 Unknown History thiamine HCl (vitamin B1) 100 mg 1 tab PO BEDTIME 12/29/20 07/21/21 Unknown History tablet aspirin 81 mg tablet,delayed 1 tab PO BEDTIME 02/04/21 07/21/21 Unknown History release buspirone 5 mg tablet 5 mg PO BID 02/04/21 07/21/21 Unknown History ramelteon 8 mg tablet 1 tab PO BEDTIME 05/12/21 07/21/21 Unknown History tamsulosin 0.4 mg capsule 1 cap PO DAILY@1700 05/12/21 07/21/21 Unknown History omeprazole 20 mg capsule,delayed 1 cap PO BID@0630,1630 06/01/21 07/21/21 Unknown History release gabapentin 300 mg capsule 2 cap PO TID 06/24/21 07/21/21 Unknown History insulin glargine 100 unit/mL 45 unit SUBCUT BEDTIME 06/24/21 07/21/21 Unknown History subcutaneous solution (Lantus U-100 Insulin) acetaminophen 325 mg capsule 650 mg PO TID 07/21/21 07/21/21 Unknown History (Tylenol) bisacodyl 10 mg rectal suppository 10 mg WI DAILY PRN 07/21/21 07/21/21 Unknown History fluticasone 250 mcg-salmeterol 50 1 inh INHALATION BID 07/21/21 07/21/21 Unknown History mcg/dose blistr powdr for inhalation (Wixela Inhub) insulin aspart U-100 100 unit/mL 1 sliding scale dose SUBCUT 07/21/21 07/21/21 Unknown History (3 mL) subcutaneous pen (Novolog USEASDIRECTD Flexpen U-100 Insulin aspart) lidocaine 5 % topical patch 1 patch TOPICAL DAILY 07/21/21 07/21/21 Unknown History loperamide 2 mg capsule 2 mg PO Q6H PRN 07/21/21 07/21/21 Unknown History ondansetron HCl 4 mg tablet 4 mg PO Q4H PRN 07/21/21 07/21/21 Unknown History oxycodone 5 mg tablet 5 mg PO Q8H PRN 07/21/21 07/21/21 Unknown History Physical Exam Vital Signs: Vital Signs: Last Vital Signs Temp 97.6 F 07/24/21 12:00 Pulse 99 07/24/21 12:00 Resp 20 07/24/21 12:00 BP 103/47 L 07/24/21 12:00 Pulse Ox 93 07/24/21 12:00 BMI result Body Mass Index 36.6 Const: General: alert Neck: Neck: Yes normal visual inspection, Yes full ROM and Yes no lymphadenopathy Chest: Chest palpation & inspection: normal inspection of the chest Resp: Auscultation: diminished lung sounds Cardio: Rate: regular rate Rhythm: regular rhythm Heart sounds: S1 normal heart sound present and S2 normal heart sound present GI: Palpation (GI): Soft to palpation and nontender Auscultation: normal bowel sounds Skin: General skin exam: rashes and/or lesions noted Results Laboratory Findings CBC and BMP: 07/22/21 06:20 07/24/21 15:03 Abnormal lab findings: Abnormal Labs 07/20/21 07/20/21 07/20/21 23:25 23:25 23:46 RBC 3.14 L D Hgb 9.7 L D Hct 31.0 L MCV 98.7 H MPV 8.9 L Eos % (Auto) 4.1 H Potassium Chloride Carbon Dioxide BUN 44 H Creatinine 3.62 H POC Glucose Random Glucose 174 H D Calcium 8.0 L Magnesium 1.4 L* Total Protein 5.4 L Albumin 3.0 L Ur Specific Ransom >= 1.030 H 07/21/21 07/21/21 07/21/21 09:28 09:28 12:49 RBC 2.99 L Hgb 9.2 L Hct 29.7 L MCV 99.3 H MPV 8.8 L Eos % (Auto) Potassium 5.3 H Chloride 110 H Carbon Dioxide BUN 30 H Creatinine 1.75 H POC Glucose 139 H Random Glucose 157 H Calcium 7.8 L Magnesium Total Protein Albumin Ur Specific [place]ansom 07/22/21 07/22/21 07/22/21 06:20 06:20 11:24 RBC 3.22 L Hgb 10.0 L Hct 30.5 L MCV MPV Eos % (Auto) Potassium Chloride Carbon Dioxide 21 L BUN Creatinine POC Glucose 143 H Random Glucose 138 H Calcium 8.3 L D Magnesium 1.1 L* Total Protein Albumin Ur Specific [place] 07/22/21 07/23/21 07/23/21 21:02 06:19 06:19 RBC Hgb Hct MCV MPV Eos % (Auto) Potassium 5.2 H Chloride Carbon Dioxide BUN Creatinine 1.50 H POC Glucose 183 H Random Glucose 137 H Calcium Magnesium 1.2 L* Total Protein Albumin Ur Specific [place]ansom 07/23/21 07/23/21 07/23/21 07:13 11:23 16:20 RBC Hgb Hct MCV MPV Eos % (Auto) Potassium Chloride Carbon Dioxide BUN Creatinine POC Glucose 123 H 126 H 130 H Random Glucose Calcium Magnesium Total Protein Albumin Ur Specific [place]ansom 07/23/21 07/24/21 07/24/21 20:26 15:03 15:03 RBC Hgb Hct MCV MPV Eos % (Auto) Potassium Chloride Carbon Dioxide BUN 4 L D Creatinine POC Glucose 122 H Random Glucose 152 H Calcium 8.1 L Magnesium 1.2 L* Total Protein Albumin Ur Specific Ransom Microbiology: Microbiology 07/21/21 00:54 Blood - Venous Blood Culture - Preliminary Enterococcus faecalis Coag negative Staphylococcus Enterococcus faecium 07/20/21 23:25 Blood - Venous Blood Culture - Preliminary No growth after 48 hours. Assessment and Plan (1) Pneumonia: Status: Acute (2) COPD (chronic obstructive pulmonary disease): Status: Acute Plan I did review the CT scan of the chest. The patient does have evidence of airspace disease in recovering from his previous severe pneumonia. Likely aspiration. The patient does have some changes that need to be followed in case this could be a concomitant process. I do agree with antibiotic therapy for now. The patient should be set up with follow-up as an outpatient in order to address the ongoing changes. No interventions or diagnostic evaluations at this point from a pulmonary standpoint. Recommendations: Continue 8 days of antibiotics Keep the head of bed elevated to avoid aspiration Needs to follow up with Pulmonary as an outpatient for further imaging studies. If he continues to have persistent changes then further diagnostic interventions will be warranted. Procedures Date of Service Date of Service: 07/24/21
[2021-07-24 19:41] VITALS: RESP 18
[2021-07-24] MEDS: Morphine Sulfate 2 MG/ML CARTRIDGE IVPUSH (19:41)
[2021-07-24] MEDS: Thiamine HCL 100 MG TABLET PO (19:42)
[2021-07-24 19:52] VITALS: BP 92/59; PULSE 86; RESP 18; TEMP 37; O2SAT 94
[2021-07-24 20:38] LABS: Glucose, Whole Blood 218 mg/dL (60-115)
[2021-07-25] MEDS: Piperacillin Sodium/Tazobactam 2.25 GM in 0.9 % Sodium Chloride 50 ML IV ×2 (01:18→16:47)
[2021-07-25] MEDS: LORazepam 2 MG/ML VIAL 1 MG IVPUSH ×2 (01:22→20:09)
[2021-07-25] MEDS: oxyCODONE HCl Immed Release 5 MG TABLET PO ×3 (02:24→20:10)
[2021-07-25 07:09] VITALS: BP 106/47; PULSE 92; RESP 20; TEMP 36.8; O2SAT 93
[2021-07-25 07:28] LABS: Glucose, Whole Blood 132 mg/dL (60-115)
[2021-07-25] MEDS: Magnesium Oxide 400 MG TABLET PO (09:01)
[2021-07-25] MEDS: busPIRone HCl 5 MG TABLET PO ×2 (09:01→20:09)
--- NOTE | 2021-07-25 10:20 | PC.NURSE ---
Skin/Wound assessment completed. Patient has blanchable redness to bilateral buttocks. Turning and repositioning occurring while in bed. Ambulation when possible while awake.
[2021-07-25 10:50] VITALS: BP 99/41; PULSE 80; RESP 20; TEMP 36.8; O2SAT 92
[2021-07-25 10:58] LABS: Glucose, Whole Blood 154 mg/dL (60-115)
[2021-07-25] MEDS: Ondansetron ODT 4 MG TAB.RAPDIS TRANSLINGU (11:09)
[2021-07-25] MEDS: Omeprazole 20 MG CAPSULE.DR PO ×2 (11:10→16:22)
--- NOTE | 2021-07-25 11:11 | MHC.CM.PN ---
Per ROUNDS discussion, Patient is not yet medically cleared for dc (required IV Ativan today, IV Zosyn, IV Vanco); returning to [place] to complete STR vs home with services is the tentative plan and CM will continue to follow.
--- NOTE | 2021-07-25 12:35 | HE.PHANOTE ---
Vancomycin Dosing Addendum: is still refusing all labs and currently does not have IV access. I spoke with Suzanne who is okay will continuing the current regimen once he gets IV access. Will follow up over the weekend to hopefully get labs.
--- NOTE | 2021-07-25 14:42 | HO.PM.IMPN ---
Subjective Subjective Date of Service: 07/25/21 Interval History: seen and examined this morning still with some abdominal pain, nausea this morning no diarrhea, no vomiting, no shortness of breath or cough continues to refuse labs Review of Systems Review of Systems: Yes all other systems are reviewed and are negative Constitutional Constitutional: Denies chills and Denies fever(s) Cardiovascular Cardiovascular: Denies chest pain, Denies palpitations and Denies dyspnea Respiratory Respiratory: Denies cough and Denies dyspnea Gastrointestinal Gastrointestinal: Reports abdominal pain, Denies diarrhea, Reports nausea and Denies vomiting Endocrine Endocrine: Denies palpitations Physical Exam Vital Signs: Vital Signs: Last Vital Signs Temp 98.3 F 07/25/21 10:50 Pulse 80 07/25/21 10:50 Resp 20 07/25/21 10:50 BP 99/41 L 07/25/21 10:50 Pulse Ox 92 07/25/21 10:50 BMI result Body Mass Index 36.6 Const: Other: uncooperative, refusing labs at times General: alert and awake Resp: Effort & Inspection: normal respiratory effort and able to speak in complete sentences Cardio: Rate: regular rate Heart sounds: S1 normal heart sound present and S2 normal heart sound present GI: Other: soft, non-distended; mild tenderness left side Extrem: Other: no leg edema Objective Data Active Medications Acetaminophen (Acetaminophen 325 Mg Tablet) 650 mg PO Q6H PRN PRN Reason: Pain, Mild (Pain Scale 1-3) Albuterol Sulfate (Albuterol Sulfate (0.083%) 2.5 Mg/3 Ml Vial.Neb) 2.5 mg INHALE RQ4H WHILE AWAKE [facility] Last Admin: 07/25/21 11:22 Dose: Not Given Documented by: FRANCISCO Non-Admin Reason: Patient Refused Buspirone HCl (Buspirone Hcl 5 Mg Tablet) 5 mg PO BID [facility] Last Admin: 07/25/21 09:01 Dose: 5 mg Documented by: MICHELLE Fluticasone/Vilanterol (Fluticasone/Vilanterol 100/25 Blst.W.Dev) 1 puff INHALE RDAILY [facility] Last Admin: 07/25/21 08:11 Dose: Not Given Documented by: FRANCISCO Non-Admin Reason: Patient Refused Folic Acid (Folic Acid 1 Mg Tablet) 1 mg PO DAILY@1700 [facility] Last Admin: 07/24/21 16:05 Dose: 1 mg Documented by: SHERRI Piperacillin Sod/Tazobactam (Sod 2.25 gm/ Sodium Chloride) 50 mls @ 100 mls/hr IV Q6H [facility] Last Admin: 07/25/21 08:53 Dose: Not Given Documented by: MICHELLE Non-Admin Reason: No Access Linezolid (Zyvox/D5w) 600 mg in 300 mls @ 300 mls/hr IV Q12H [facility] Lorazepam (Lorazepam 2 Mg/Ml Vial) 1 mg IVPUSH Q6H PRN PRN Reason: anxiety Last Admin: 07/25/21 01:22 Dose: 1 mg Documented by: PIEDAD Magnesium Oxide (Magnesium Oxide 400 Mg Tablet) 400 mg PO DAILY [facility] Last Admin: 07/25/21 09:01 Dose: 400 mg Documented by: MICHELLE Morphine Sulfate (Morphine Sulfate 2 Mg/Ml Cartridge) 2 mg IVPUSH Q4H PRN; Protocol PRN Reason: Pain, Mild (Pain Scale 1-3) Last Admin: 07/24/21 19:41 Dose: 2 mg Documented by: PIEDAD Omeprazole (Omeprazole 20 Mg Capsule.Dr) 20 mg PO BID@0630,1630 [facility] Last Admin: 07/25/21 11:10 Dose: 20 mg Documented by: MICHELLE Ondansetron HCl (Ondansetron Hcl 4 Mg/2 Ml Vial) 4 mg IVPUSH Q8H PRN PRN Reason: Nausea and Vomiting Last Admin: 07/24/21 11:56 Dose: 4 mg Documented by: SHERRI Oxycodone HCl (Oxycodone Hcl Immed Release 5 Mg Tablet) 5 mg PO Q6H PRN PRN Reason: Pain, Severe (Pain Scale 7-10) Last Admin: 07/25/21 13:41 Dose: 5 mg Documented by: MICHELLE Pharmacy Consult (Consult Rx Perform Med Rec) 1 each MISCELLANE ONCE PRN PRN Reason: Consult order Pharmacy Consult (Consult Rx Vancomycin Dosing) 1 each MISCELLANE DAILY PRN PRN Reason: Consult order Sodium Chloride (0.9 % Sodium Chloride Flush 3 Ml Syringe) 3 ml IVFLUSH QSHIFT [facility] Last Admin: 07/25/21 08:53 Dose: Not Given Documented by: MICHELLE Non-Admin Reason: No Access Tamsulosin HCl (Tamsulosin Hcl 0.4 Mg Capsule) 0.4 mg PO DAILY@1700 [facility] Last Admin: 07/24/21 16:06 Dose: 0.4 mg Documented by: SHERRI Thiamine HCl (Thiamine Hcl 100 Mg Tablet) 100 mg PO BEDTIME [facility] Last Admin: 07/24/21 19:42 Dose: 100 mg Documented by: PIEDAD Labs CBC & Chem 7: 07/22/21 06:20 07/24/21 15:03 Labs: Laboratory Results - last 24 hr 07/24/21 07/24/21 07/24/21 15:03 15:03 15:03 Anion Gap 13 Estim Creat Clear Calc 102.6 107.0 Estimated GFR > 60 > 60 POC Glucose Random Glucose 152 H Calcium 8.1 L Magnesium 1.2 L* 07/24/21 07/25/21 07/25/21 19:55 07:08 10:50 Anion Gap Estim Creat Clear Calc Estimated GFR POC Glucose 218 H 132 H 154 H Random Glucose Calcium Magnesium Microbiology Microbiology Results: Microbiology 07/21/21 00:54 Blood Culture - Final Blood - Venous Enterococcus faecalis Coag negative Staphylococcus Enterococcus faecium Assessment and Plan (1) Bacteremia: Status: Acute (2) Pneumonia: Status: Acute Plan This is a 65 year old male with a PMH of alcohol abuse with dependence, hyopnatremia, COPD, DM, HFpEF, who was discharged to SNF from [facility] after he was hospitalized for alcohol withdrawal and symptomatic hyponatremia. He now returns about 1 week later with reprots of diarrhea and mental status changes (although he does not appear to be disoriented on admission). He is noted to have LAUREN and will be admitted for further work up and treatment. *refused labs 07/25 Community-acquired pneumonia seen by pulmonology due to abnormal chest CT with concern for mass recommend abx x 8 days, continue zosyn not likely mass, but should follow up with pulm as outpatient continue DuoNebs Bacteremia probably secondary to intraabdominal process - awaiting ID input - workup in progress UA unremarkable, no urine culture BCx growing enterococcus faecalis, enterococcus faecium (VRE - resistant to ampicillin and vanco) and coag negative staff. continue iv zosyn, will change IV vanco to zyvox ID consult pending repeat BCx pending echo pending temporary midline placed 07/25 (pt lost access and unable to obtain peripheral line) Acute Diverticulitis continue IV zosyn Pain Management Supportive care seen by GI, agree with current management Right rib pain. right posterior 11th rib fx noted on 07/11/21 Declined lidocaine patch Can use oxycodone and morphine for pain Incentive spirometry Acute Kidney Injury. SCr baseline 0.7 to 0.8. improved to 0.9 today in the setting of diarrhea + infection no obstruction seen on imaging Restart IV fluids Hypotension. BP Improving due to above responded to IVF HypoMg. still low repleted with IV ma continue oral magnesium daily if no improvement can consider stopping PPI Acute Anemia (baseline around 12-13/35-38), presenting with: 9.12/07 stool occult positive likely r/t diverticulitis follow cbc COPD. No exacerbation DuoNebs DM sliding scale ADA diet Chronic HFpEF monitor closely while on IVF currently hypovoluemic Full Code DVT pptx - mechanical due to concern over acute blood loss anemia Attending Dr. Palmer Patient requires continued hospitalization for continued treatment of acute renal failure necessitating IV fluids, antibiotics for diverticulitis and bacteremia and pending ID consult as well as severe hypo magnesemia putting him at risk for arrhythmia necessitating tele monitoring Quality Stroke Does the patient have a stroke diagnosis?: No VTE Prior VTE?: No VTE Risk Level:: Medical - moderate - high VTE Device Contraindication: N/A - Device Ordered VTE Drug Contraindication: Treatment Not Indicated
[2021-07-25] MEDS: Folic Acid 1 MG TABLET PO (15:14)
[2021-07-25] MEDS: Acetaminophen 325 MG TABLET 650 MG PO (15:14)
[2021-07-25] MEDS: Tamsulosin HCL 0.4 MG CAPSULE PO (15:15)
[2021-07-25 16:00] VITALS: BP 113/71; PULSE 93; RESP 20; O2SAT 95
--- NOTE | 2021-07-25 16:16 | P.CNID_ITS ---
History of Present Illness Data of Consult Service Date: 07/25/21 Requesting physician: Suzanne Young Primary Care Provider: MD YURIY Rodriguez Reason for consult: bacteremia,aspiration pneumonia She presents with weakness and diminished po. She has had this last two to three days. She has no fever or chills. CT shows concern for aspiration pneumonia and possibly diverticulitis. Review of Systems Review of Systems: Yes all other systems are reviewed and are negative PMFSH Past Medical History Medical History LAUREN (acute kidney injury) Alcohol abuse COPD (chronic obstructive pulmonary disease) Diabetes mellitus type 1 Diastolic dysfunction Diastolic heart failure Fall HLD (hyperlipidemia) Hypertension Nonrheumatic aortic (valve) stenosis Obesity Family History Family History Father Diabetes Mother Diabetes Family history: reviewed and not pertinent Surgical History Surgical History H/O elbow surgery H/O shoulder surgery History of hydrocelectomy S/P TURP Social History Social History Household Members: None Housing: Intermediate Do you presently have visiting nurse or other home services: Yes (used to live in [facility]. has been in [place] for [facility] ) Alcohol intake: current Alcohol intake frequency: 3 or more drinks per day Alcohol type: hard liquor Patient Tobacco Use Status: Former Tobacco user Tobacco use type: Cigar e-Cigarette/Vaping Use: Currently Using Second Hand Smoke Exposure: No Advance Directives Date on File: 10/11/20 service: No Current occupational status: unemployed and disabled Meds Allergies Allergy/AdvReac Type Severity Reaction Status Date / Time ENVIRONMENTAL Allergy Mild SNEEZING, Uncoded 07/11/21 10:06 WATERY EYES Active Medications: Current Medications Acetaminophen (Acetaminophen 325 Mg Tablet) 650 mg PO Q6H PRN PRN Reason: Pain, Mild (Pain Scale 1-3) Last Admin: 07/25/21 15:14 Dose: 650 mg Documented by: Albuterol Sulfate (Albuterol Sulfate (0.083%) 2.5 Mg/3 Ml Vial.Neb) 2.5 mg INHALE RQ4H WHILE AWAKE [facility] Last Admin: 07/25/21 15:15 Dose: Not Given Documented by: Buspirone HCl (Buspirone Hcl 5 Mg Tablet) 5 mg PO BID [facility] Last Admin: 07/25/21 09:01 Dose: 5 mg Documented by: Fluticasone/Vilanterol (Fluticasone/Vilanterol 100/25 Blst.W.Dev) 1 puff INHALE RDAILY [facility] Last Admin: 07/25/21 08:11 Dose: Not Given Documented by: Folic Acid (Folic Acid 1 Mg Tablet) 1 mg PO DAILY@1700 [facility] Last Admin: 07/25/21 15:14 Dose: 1 mg Documented by: Piperacillin Sod/Tazobactam (Sod 2.25 gm/ Sodium Chloride) 50 mls @ 100 mls/hr IV Q6H [facility] Last Admin: 07/25/21 14:47 Dose: Not Given Documented by: Lorazepam (Lorazepam 2 Mg/Ml Vial) 1 mg IVPUSH Q6H PRN PRN Reason: anxiety Last Admin: 07/25/21 01:22 Dose: 1 mg Documented by: Magnesium Oxide (Magnesium Oxide 400 Mg Tablet) 400 mg PO DAILY [facility] Last Admin: 07/25/21 09:01 Dose: 400 mg Documented by: Morphine Sulfate (Morphine Sulfate 2 Mg/Ml Cartridge) 2 mg IVPUSH Q4H PRN; Protocol PRN Reason: Pain, Mild (Pain Scale 1-3) Last Admin: 07/24/21 19:41 Dose: 2 mg Documented by: Omeprazole (Omeprazole 20 Mg Capsule.Dr) 20 mg PO BID@0630,1630 [facility] Last Admin: 07/25/21 11:10 Dose: 20 mg Documented by: Ondansetron HCl (Ondansetron Hcl 4 Mg/2 Ml Vial) 4 mg IVPUSH Q8H PRN PRN Reason: Nausea and Vomiting Last Admin: 07/24/21 11:56 Dose: 4 mg Documented by: Oxycodone HCl (Oxycodone Hcl Immed Release 5 Mg Tablet) 5 mg PO Q6H PRN PRN Reason: Pain, Severe (Pain Scale 7-10) Last Admin: 07/25/21 13:41 Dose: 5 mg Documented by: Pharmacy Consult (Consult Rx Perform Med Rec) 1 each MISCELLANE ONCE PRN PRN Reason: Consult order Pharmacy Consult (Consult Rx Vancomycin Dosing) 1 each MISCELLANE DAILY PRN PRN Reason: Consult order Sodium Chloride (0.9 % Sodium Chloride Flush 3 Ml Syringe) 3 ml IVFLUSH QSHIFT [facility] Last Admin: 07/25/21 15:16 Dose: Not Given Documented by: Tamsulosin HCl (Tamsulosin Hcl 0.4 Mg Capsule) 0.4 mg PO DAILY@1700 [facility] Last Admin: 07/25/21 15:15 Dose: 0.4 mg Documented by: Thiamine HCl (Thiamine Hcl 100 Mg Tablet) 100 mg PO BEDTIME [facility] Last Admin: 07/24/21 19:42 Dose: 100 mg Documented by: Home Medications Medication Instructions Recorded Confirmed Last Taken Type albuterol sulfate 1 amp INHALATION QID 12/29/20 07/21/21 Unknown History albuterol sulfate 90 mcg/actuation 2 puff INHALATION Q6H PRN 12/29/20 07/21/21 Unknown History aerosol inhaler blood sugar diagnostic (FreeStyle 12/29/20 02/04/21 Unknown History Lite Strips) folic acid 1 mg tablet 1 tab PO DAILY@1700 12/29/20 07/21/21 Unknown History lisinopril 10 mg tablet 1 tab PO DAILY 12/29/20 07/21/21 Unknown History simvastatin 20 mg tablet 1 tab PO BEDTIME 12/29/20 07/21/21 Unknown History thiamine HCl (vitamin B1) 100 mg 1 tab PO BEDTIME 12/29/20 07/21/21 Unknown History tablet aspirin 81 mg tablet,delayed 1 tab PO BEDTIME 02/04/21 07/21/21 Unknown History release buspirone 5 mg tablet 5 mg PO BID 02/04/21 07/21/21 Unknown History ramelteon 8 mg tablet 1 tab PO BEDTIME 05/12/21 07/21/21 Unknown History tamsulosin 0.4 mg capsule 1 cap PO DAILY@1700 05/12/21 07/21/21 Unknown History omeprazole 20 mg capsule,delayed 1 cap PO BID@0630,1630 06/01/21 07/21/21 Unknown History release gabapentin 300 mg capsule 2 cap PO TID 06/24/21 07/21/21 Unknown History insulin glargine 100 unit/mL 45 unit SUBCUT BEDTIME 06/24/21 07/21/21 Unknown History subcutaneous solution (Lantus U-100 Insulin) acetaminophen 325 mg capsule 650 mg PO TID 07/21/21 07/21/21 Unknown History (Tylenol) bisacodyl 10 mg rectal suppository 10 mg AL DAILY PRN 07/21/21 07/21/21 Unknown History fluticasone 250 mcg-salmeterol 50 1 inh INHALATION BID 07/21/21 07/21/21 Unknown History mcg/dose blistr powdr for inhalation (Wixela Inhub) insulin aspart U-100 100 unit/mL 1 sliding scale dose SUBCUT 07/21/21 07/21/21 Unknown History (3 mL) subcutaneous pen (Novolog USEASDIRECTD Flexpen U-100 Insulin aspart) lidocaine 5 % topical patch 1 patch TOPICAL DAILY 07/21/21 07/21/21 Unknown History loperamide 2 mg capsule 2 mg PO Q6H PRN 07/21/21 07/21/21 Unknown History ondansetron HCl 4 mg tablet 4 mg PO Q4H PRN 07/21/21 07/21/21 Unknown History oxycodone 5 mg tablet 5 mg PO Q8H PRN 07/21/21 07/21/21 Unknown History Physical Exam Vital Signs: Vital Signs: Last Vital Signs Temp 98.3 F 07/25/21 10:50 Pulse 80 07/25/21 10:50 Resp 20 07/25/21 10:50 BP 99/41 L 07/25/21 10:50 Pulse Ox 92 07/25/21 10:50 BMI result Body Mass Index 36.6 Const: General: cooperative HENMT: Head: Yes normal to inspection Mouth: Normal oral and palatal mucosa present Resp: Effort & Inspection: normal respiratory effort Cardio: Rate: regular rate Rhythm: regular rhythm GI: Palpation (GI): Soft to palpation and nontender Extrem: General: Yes normal to inspection Results Labs CBC & Chem 7: 07/22/21 06:20 07/24/21 15:03 Microbiology Microbiology Results: Microbiology 07/21/21 00:54 Blood - Venous Blood Culture - Final Enterococcus faecalis Coag negative Staphylococcus Enterococcus faecium 07/20/21 23:25 Blood - Venous Blood Culture - Preliminary No growth after 48 hours. Assessment and Plan (1) Bacteremia: Status: Acute The enterococcus appears to be contaminant mixed in with coagulase negative staph. She has likely aspiration and possible diverticulitis (2) Diverticulitis: Status: Acute (3) Pneumonia: Status: Acute Plan Would continue Zosyn for probable 3-5 d IV and then po Augmentin for a week
[2021-07-25] MEDS: Morphine Sulfate 2 MG/ML CARTRIDGE IVPUSH ×2 (16:22→23:24)
[2021-07-25 16:25] LABS: Glucose, Whole Blood 117 mg/dL (60-115)
--- NOTE | 2021-07-25 16:28 | HO.MIDLINE ---
PICC Line Insertion MIDLINE INSERTION Diagnosis: BACTEREMIA, ABNORMAL LABS Indication: POOR IV ACCESS; NEEDS IV ACCESS Pertinent Labs: REVIEWED; CLEARANCE OBTAINED FOR MIDLINE INSERTION Technique: Using sterile technique including cap and mask, glove and drape, the LEFT arm was prepped and draped in the usual sterile fashion of full barrier technique with CHG. Using ultrasound guidance, BASILIC vein access was obtained IN SINGLE ATTEMPT BY THIS RN. A SINGLE LUMEN, NON-PASV, (20G X 10CM) MIDLINE was positioned. The procedure was performed in [facility]. Ultrasound was used to document vein patency and for needle entry. A formal ultrasound picture was recorded. Vascular Leach Cell Operator has released the line for use and it is currently dressed with a StatLock, Tegaderm, and CHG disc. Verification has been performed for blood return and line patency. Arm Circumference: 37 CM Equipment: [employer] POWERGLIDE PRO Catheter Type: SINGLE LUMEN, NON-PASV, (20G X 10CM) Lot #: [id number]
[2021-07-25] MEDS: ondansetron HCL 4 MG/2 ML VIAL IVPUSH (16:36)
--- NOTE | 2021-07-25 18:25 | PC.NURSE ---
[address] with HR 160. Pt in bed, no s/s. Suzanne GREGORIO notified.
[2021-07-25] MEDS: Thiamine HCL 100 MG TABLET PO (20:09)
[2021-07-25] MEDS: Magnesium Sulfate/D5W 1 GM/100 ML PIGGYBACK IV (20:10)
[2021-07-25] MEDS: 0.9 % Sodium Chloride Flush 3 ML SYRINGE IVFLUSH (20:10)
[2021-07-25 20:21] VITALS: BP 112/61; PULSE 85; RESP 18; O2SAT 91
[2021-07-25 20:25] LABS: Glucose, Whole Blood 159 mg/dL (60-115)
[2021-07-25] MEDS: Famotidine/PF 20 MG/2 ML VIAL IVPUSH (21:52)
[2021-07-25] MEDS: Heparin Sodium,Porcine Flush 50 UNITS, 0.9 % Sodium Chloride Flush 5 ML IVFLUSH (21:52)
[2021-07-25 23:24] VITALS: RESP 18
[2021-07-26] MEDS: Piperacillin Sodium/Tazobactam 2.25 GM in 0.9 % Sodium Chloride 50 ML IV ×5 (00:31→23:28)
[2021-07-26] MEDS: Omeprazole 20 MG CAPSULE.DR PO ×2 (06:24→16:26)
[2021-07-26 07:28] VITALS: BP 116/65; PULSE 86; RESP 19; TEMP 36.6; O2SAT 90
[2021-07-26 07:34] LABS: Glucose, Whole Blood 142 mg/dL (60-115)
[2021-07-26] MEDS: busPIRone HCl 5 MG TABLET PO ×2 (10:21→21:39)
[2021-07-26] MEDS: 0.9 % Sodium Chloride Flush 3 ML SYRINGE IVFLUSH ×3 (10:21→21:40)
[2021-07-26] MEDS: Magnesium Oxide 400 MG TABLET PO (10:21)
[2021-07-26] MEDS: Heparin Sodium,Porcine Flush 50 UNITS, 0.9 % Sodium Chloride Flush 5 ML IVFLUSH ×3 (11:02→21:39)
--- NOTE | 2021-07-26 11:39 | HE.PHANOTE ---
Zosyn Antibiotic Stewardship Followed by ID, continue Zosyn for 3-5 days.
[2021-07-26 11:49] VITALS: BP 119/58; PULSE 80; RESP 19; TEMP 36.2; O2SAT 92
--- NOTE | 2021-07-26 13:45 | HO.PM.IMPN ---
Subjective Subjective Date of Service: 07/26/21 Review of Systems follow-up bacteremia, diverticulitis and pneumonia Denies pain, shortness breath Sleeping good, eating well Physical Exam Vital Signs: Vital Signs: Last Vital Signs Temp 97.2 F 07/26/21 11:49 Pulse 80 07/26/21 11:49 Resp 19 07/26/21 11:49 BP 119/58 L 07/26/21 11:49 Pulse Ox 92 07/26/21 11:49 BMI result Body Mass Index 36.6 Appearing in no acute distress lung sounds are clear to auscultation heart regular rate rhythm, clear S1, S2 positive bowel sounds, abdomen is soft, nontender neuro patient is alert x3, no focal deficits Objective Data Active Medications Acetaminophen (Acetaminophen 325 Mg Tablet) 650 mg PO Q6H PRN PRN Reason: Pain, Mild (Pain Scale 1-3) Last Admin: 07/25/21 15:14 Dose: 650 mg Documented by: MICHELLE Albuterol Sulfate (Albuterol Sulfate (0.083%) 2.5 Mg/3 Ml Vial.Neb) 2.5 mg INHALE RQ4H WHILE AWAKE [facility] Last Admin: 07/26/21 11:25 Dose: Not Given Documented by: JENIFFER Non-Admin Reason: Patient Refused Buspirone HCl (Buspirone Hcl 5 Mg Tablet) 5 mg PO BID [facility] Last Admin: 07/26/21 10:21 Dose: 5 mg Documented by: BORIS Heparin Sodium (Porcine) 50 (units/ Sodium Chloride 5 ml) 0 units IVFLUSH TID [facility] Last Admin: 07/26/21 11:02 Dose: 50 unit Documented by: BORIS Dextrose (Dextrose 50 % 25 Gm/50 Ml Vial) 25 gm IVPUSH Q15M PRN; Protocol PRN Reason: per Hypoglycemia Standing Ord. Fluticasone/Vilanterol (Fluticasone/Vilanterol 100/25 Blst.W.Dev) 1 puff INHALE RDAILY [facility] Last Admin: 07/26/21 07:50 Dose: Not Given Documented by: JENIFFER Non-Admin Reason: Patient Refused Folic Acid (Folic Acid 1 Mg Tablet) 1 mg PO DAILY@1700 [facility] Last Admin: 07/25/21 15:14 Dose: 1 mg Documented by: MICHELLE Glucose (Glucose Gel 15 Gm Gel..Gram.) 15 gm PO Q15M PRN; Protocol PRN Reason: per Hypoglycemia Standing Ord. Piperacillin Sod/Tazobactam (Sod 2.25 gm/ Sodium Chloride) 50 mls @ 100 mls/hr IV Q6H [facility] Last Infusion: 07/26/21 12:44 Dose: 0 mls/hr Documented by: BORIS Insulin Human Lispro (Insulin Lispro 100 Unit/Ml 3 Ml Vial) 0 unit SUBCUT QIDACHS [facility]; Protocol Lorazepam (Lorazepam 2 Mg/Ml Vial) 1 mg IVPUSH Q6H PRN PRN Reason: anxiety Last Admin: 07/25/21 20:09 Dose: 1 mg Documented by: NERY Magnesium Oxide (Magnesium Oxide 400 Mg Tablet) 400 mg PO DAILY [facility] Last Admin: 07/26/21 10:21 Dose: 400 mg Documented by: BORIS Morphine Sulfate (Morphine Sulfate 2 Mg/Ml Cartridge) 2 mg IVPUSH Q4H PRN; Protocol PRN Reason: Pain, Mild (Pain Scale 1-3) Last Admin: 07/25/21 23:24 Dose: 2 mg Documented by: NERY Omeprazole (Omeprazole 20 Mg Capsule.Dr) 20 mg PO BID@0630,1630 [facility] Last Admin: 07/26/21 06:24 Dose: 20 mg Documented by: NERY Ondansetron HCl (Ondansetron Hcl 4 Mg/2 Ml Vial) 4 mg IVPUSH Q8H PRN PRN Reason: Nausea and Vomiting Last Admin: 07/25/21 16:36 Dose: 4 mg Documented by: MICHELLE Oxycodone HCl (Oxycodone Hcl Immed Release 5 Mg Tablet) 5 mg PO Q6H PRN PRN Reason: Pain, Severe (Pain Scale 7-10) Last Admin: 07/25/21 20:10 Dose: 5 mg Documented by: NERY Pharmacy Consult (Consult Rx Perform Med Rec) 1 each MISCELLANE ONCE PRN PRN Reason: Consult order Pharmacy Consult (Consult Rx Vancomycin Dosing) 1 each MISCELLANE DAILY PRN PRN Reason: Consult order Sodium Chloride (0.9 % Sodium Chloride Flush 3 Ml Syringe) 3 ml IVFLUSH QSHIFT [facility] Last Admin: 07/26/21 10:21 Dose: 3 ml Documented by: BORIS Tamsulosin HCl (Tamsulosin Hcl 0.4 Mg Capsule) 0.4 mg PO DAILY@1700 [facility] Last Admin: 07/25/21 15:15 Dose: 0.4 mg Documented by: MICHELLE Thiamine HCl (Thiamine Hcl 100 Mg Tablet) 100 mg PO BEDTIME [facility] Last Admin: 07/25/21 20:09 Dose: 100 mg Documented by: SUSIEUMOC Labs CBC & Chem 7: 07/22/21 06:20 07/24/21 15:03 Labs: Laboratory Results - last 24 hr 07/25/21 07/25/21 07/26/21 16:20 20:03 07:28 POC Glucose 117 H 159 H 142 H Microbiology Microbiology Results: Microbiology 07/20/21 23:25 Blood Culture - Final Blood - Venous No growth after 5 days. 07/24/21 15:03 Blood Culture - Preliminary Blood - Venous No growth after 24 hours. 07/24/21 15:03 Blood Culture - Preliminary Blood - Venous No growth after 24 hours. Assessment and Plan (1) Bacteremia: Status: Acute (2) Pneumonia: Status: Acute Plan This is a 65 year old male with a PMH of alcohol abuse with dependence, hyopnatremia, COPD, DM, HFpEF, who was discharged to SNF from [facility] after he was hospitalized for alcohol withdrawal and symptomatic hyponatremia. He now returns about 1 week later with reprots of diarrhea and mental status changes (although he does not appear to be disoriented on admission). He is noted to have LAUREN and will be admitted for further work up and treatment. *refused labs 07/25 Community-acquired pneumonia seen by pulmonology due to abnormal chest CT with concern for mass recommend abx x 8 days, continue zosyn not likely mass, but should follow up with pulm as outpatient continue DuoNebs Bacteremia probably secondary to intraabdominal process - awaiting ID input - workup in progress UA unremarkable, no urine culture BCx growing enterococcus faecalis, enterococcus faecium (VRE - resistant to ampicillin and vanco) and coag negative staff. continue iv zosyn for 3-5 days as per ID, 5 days would be 07/29/21 ID consult pending repeat BCx pending echo pending temporary midline placed 3/18 (pt lost access and unable to obtain peripheral line) Acute Diverticulitis continue IV zosyn for bacteremia likely secondary to GI process Pain Management Supportive care seen by GI, agree with current management Right rib pain. right posterior 11th rib fx noted on 07/11/21 Declined lidocaine patch Can use oxycodone and morphine for pain Incentive spirometry Acute Kidney Injury. SCr baseline 0.7 to 0.8. improved to 0.9 today in the setting of diarrhea + infection no obstruction seen on imaging Restart IV fluids Hypotension. Stable due to above responded to IVF HypoMg. still low repleted with IV ma continue oral magnesium daily if no improvement can consider stopping PPI Acute Anemia (baseline around 12-13/35-38), presenting with: 9.12/07 stool occult positive likely r/t diverticulitis follow cbc COPD. No exacerbation DuoNebs DM sliding scale ADA diet Chronic HFpEF monitor closely while on IVF currently hypovoluemic Full Code DVT pptx - mechanical due to concern over acute blood loss anemia Attending Dr. Tate Patient requires continued hospitalization for continued treatment of acute renal failure necessitating IV fluids, antibiotics for diverticulitis and bacteremia ,severe hypomagnesemia putting him at risk for arrhythmia necessitating tele monitoring Quality Stroke Does the patient have a stroke diagnosis?: No VTE Prior VTE?: No VTE Risk Level:: Medical - moderate - high VTE Device Contraindication: N/A - Device Ordered VTE Drug Contraindication: Treatment Not Indicated
[2021-07-26 16:00] VITALS: BP 125/67; PULSE 89; RESP 18; TEMP 36.2; O2SAT 95
[2021-07-26 16:21] LABS: CDiff Gene PCR NEGATIVE (Negative)
[2021-07-26] MEDS: Folic Acid 1 MG TABLET PO (16:26)
[2021-07-26] MEDS: Tamsulosin HCL 0.4 MG CAPSULE PO (16:26)
[2021-07-26 16:38] LABS: Glucose, Whole Blood 125 mg/dL (60-115)
[2021-07-26] MEDS: Morphine Sulfate 2 MG/ML CARTRIDGE IVPUSH ×2 (17:32→21:40)
[2021-07-26 19:25] VITALS: BP 116/56; PULSE 93; RESP 18; TEMP 36.2; O2SAT 94
[2021-07-26] MEDS: Thiamine HCL 100 MG TABLET PO (21:39)
[2021-07-26 23:25] VITALS: PULSE 98
[2021-07-27 04:00] VITALS: BP 122/60; PULSE 98; TEMP 36.4; O2SAT 94
[2021-07-27] MEDS: Omeprazole 20 MG CAPSULE.DR PO ×2 (05:58→16:30)
[2021-07-27] MEDS: Piperacillin Sodium/Tazobactam 2.25 GM in 0.9 % Sodium Chloride 50 ML IV ×3 (05:58→17:11)
[2021-07-27 07:43] LABS: Glucose, Whole Blood 141 mg/dL (60-115)
[2021-07-27 07:48] VITALS: BP 137/69; PULSE 105; RESP 16; TEMP 36.2; O2SAT 93
[2021-07-27] MEDS: Heparin Sodium,Porcine Flush 50 UNITS, 0.9 % Sodium Chloride Flush 5 ML IVFLUSH ×3 (09:58→19:47)
[2021-07-27] MEDS: 0.9 % Sodium Chloride Flush 3 ML SYRINGE IVFLUSH ×3 (09:58→19:47)
[2021-07-27] MEDS: Magnesium Oxide 400 MG TABLET PO (09:58)
[2021-07-27] MEDS: busPIRone HCl 5 MG TABLET PO ×2 (09:59→19:46)
--- NOTE | 2021-07-27 10:56 | HO.PM.IMPN ---
Subjective Subjective Date of Service: 07/27/21 Review of Systems follow-up bacteremia, diverticulitis and pneumonia Denies pain, shortness breath Sleeping good, eating well Physical Exam Vital Signs: Vital Signs: Last Vital Signs Temp 97.2 F 07/27/21 07:48 Pulse 105 H 07/27/21 07:48 Resp 16 07/27/21 07:48 BP 137/69 07/27/21 07:48 Pulse Ox 93 07/27/21 07:48 BMI result Body Mass Index 36.6 Appearing in no acute distress lung sounds are clear to auscultation heart regular rate rhythm, clear S1, S2 positive bowel sounds, abdomen is soft, nontender neuro patient is alert x3, no focal deficits Objective Data Active Medications Acetaminophen (Acetaminophen 325 Mg Tablet) 650 mg PO Q6H PRN PRN Reason: Pain, Mild (Pain Scale 1-3) Last Admin: 07/25/21 15:14 Dose: 650 mg Documented by: MICHELLE Albuterol Sulfate (Albuterol Sulfate (0.083%) 2.5 Mg/3 Ml Vial.Neb) 2.5 mg INHALE RQ4H WHILE AWAKE [facility] Last Admin: 07/27/21 07:26 Dose: Not Given Documented by: JENIFFER Non-Admin Reason: Patient Refused Buspirone HCl (Buspirone Hcl 5 Mg Tablet) 5 mg PO BID [facility] Last Admin: 07/27/21 09:59 Dose: 5 mg Documented by: BORIS Heparin Sodium (Porcine) 50 (units/ Sodium Chloride 5 ml) 0 units IVFLUSH TID [facility] Last Admin: 07/27/21 09:58 Dose: 50 unit Documented by: BORIS Dextrose (Dextrose 50 % 25 Gm/50 Ml Vial) 25 gm IVPUSH Q15M PRN; Protocol PRN Reason: per Hypoglycemia Standing Ord. Fluticasone/Vilanterol (Fluticasone/Vilanterol 100/25 Blst.W.Dev) 1 puff INHALE RDAILY [facility] Last Admin: 07/27/21 07:26 Dose: Not Given Documented by: JENIFFER Non-Admin Reason: Patient Refused Folic Acid (Folic Acid 1 Mg Tablet) 1 mg PO DAILY@1700 [facility] Last Admin: 07/26/21 16:26 Dose: 1 mg Documented by: BORIS Glucose (Glucose Gel 15 Gm Gel..Gram.) 15 gm PO Q15M PRN; Protocol PRN Reason: per Hypoglycemia Standing Ord. Piperacillin Sod/Tazobactam (Sod 2.25 gm/ Sodium Chloride) 50 mls @ 100 mls/hr IV Q6H [facility] Last Infusion: 07/27/21 06:30 Dose: 0 mls/hr Documented by: JENNIFER Insulin Human Lispro (Insulin Lispro 100 Unit/Ml 3 Ml Vial) 0 unit SUBCUT QIDACHS [facility]; Protocol Last Admin: 07/27/21 08:10 Dose: Not Given Documented by: BORIS Non-Admin Reason: No Insulin Coverage Lorazepam (Lorazepam 2 Mg/Ml Vial) 1 mg IVPUSH Q6H PRN PRN Reason: anxiety Last Admin: 07/25/21 20:09 Dose: 1 mg Documented by: NERY Magnesium Oxide (Magnesium Oxide 400 Mg Tablet) 400 mg PO DAILY [facility] Last Admin: 07/27/21 09:58 Dose: 400 mg Documented by: BORIS Omeprazole (Omeprazole 20 Mg Capsule.Dr) 20 mg PO BID@0630,1630 [facility] Last Admin: 07/27/21 05:58 Dose: 20 mg Documented by: JENNIFER Ondansetron HCl (Ondansetron Hcl 4 Mg/2 Ml Vial) 4 mg IVPUSH Q8H PRN PRN Reason: Nausea and Vomiting Last Admin: 07/25/21 16:36 Dose: 4 mg Documented by: MICHELLE Pharmacy Consult (Consult Rx Perform Med Rec) 1 each MISCELLANE ONCE PRN PRN Reason: Consult order Pharmacy Consult (Consult Rx Vancomycin Dosing) 1 each MISCELLANE DAILY PRN PRN Reason: Consult order Sodium Chloride (0.9 % Sodium Chloride Flush 3 Ml Syringe) 3 ml IVFLUSH QSHIFT [facility] Last Admin: 07/27/21 09:58 Dose: 3 ml Documented by: BORIS Tamsulosin HCl (Tamsulosin Hcl 0.4 Mg Capsule) 0.4 mg PO DAILY@1700 [facility] Last Admin: 07/26/21 16:26 Dose: 0.4 mg Documented by: BORIS Thiamine HCl (Thiamine Hcl 100 Mg Tablet) 100 mg PO BEDTIME [facility] Last Admin: 07/26/21 21:39 Dose: 100 mg Documented by: JENNIFER Labs CBC & Chem 7: 07/22/21 06:20 07/24/21 15:03 Labs: Laboratory Results - last 24 hr 07/26/21 07/26/21 07/27/21 13:34 16:27 07:40 POC Glucose 125 H 141 H C. difficile Tox B Gene NEGATIVE Microbiology Microbiology Results: Microbiology 07/26/21 13:34 Stool Culture - Preliminary Stool Culture in progress. 07/24/21 15:03 Blood Culture - Preliminary Blood - Venous No growth after 48 hours. 07/24/21 15:03 Blood Culture - Preliminary Blood - Venous No growth after 48 hours. Assessment and Plan (1) Bacteremia: Status: Acute (2) Pneumonia: Status: Acute Plan This is a 65 year old male with a PMH of alcohol abuse with dependence, hyopnatremia, COPD, DM, HFpEF, who [place] [facility] [place] for alcohol withdrawal and symptomatic hyponatremia. He now returns about 1 week later with reprots of diarrhea and mental status changes (although he does not appear to be disoriented on admission). He is noted to have LAUREN and will be admitted for further work up and treatment. Refused lab work 07/27/21 Community-acquired pneumonia recommend abx x 8 days, continue zosyn continue DuoNebs Bacteremia probably secondary to intraabdominal process - awaiting ID input - workup in progress UA unremarkable, no urine culture BCx growing enterococcus faecalis, enterococcus faecium (VRE - resistant to ampicillin and vanco) and coag negative staff. continue iv zosyn for 3-5 days as per ID, 5 days would be 07/29/21 ID consult repeat BCx pending echo pending temporary midline placed 07/25 (pt lost access and unable to obtain peripheral line) Acute Diverticulitis continue IV zosyn for bacteremia likely secondary to GI process Pain Management Supportive care seen by GI, agree with current management Right rib pain. right posterior 11th rib fx noted on 07/11/21 Declined lidocaine patch Can use oxycodone and morphine for pain Incentive spirometry Acute Kidney Injury. SCr baseline 0.7 to 0.8. improved to 0.9 today in the setting of diarrhea + infection no obstruction seen on imaging Restart IV fluids Hypotension. Stable due to above responded to IVF HypoMg. still low repleted with IV ma continue oral magnesium daily if no improvement can consider stopping PPI Acute Anemia (baseline around 12-/35-38), presenting with: 9.12/07 stool occult positive likely r/t diverticulitis follow cbc COPD. No exacerbation DuoNebs DM sliding scale ADA diet Chronic HFpEF monitor closely while on IVF currently hypovoluemic Full Code DVT pptx - mechanical due to concern over acute blood loss anemia Attending Dr. Tate DISPO PT evaluation for SNF vs home when medically stable Patient requires continued hospitalization for continued treatment of acute renal failure necessitating antibiotics for diverticulitis and bacteremia a physical therapy evaluation to determine disposition on discharge Quality Stroke Does the patient have a stroke diagnosis?: No VTE Prior VTE?: No VTE Risk Level:: Medical - moderate - high VTE Device Contraindication: N/A - Device Ordered VTE Drug Contraindication: Treatment Not Indicated
[2021-07-27 11:06] LABS: Glucose, Whole Blood 144 mg/dL (60-115)
[2021-07-27 11:15] VITALS: BP 121/61; PULSE 94; RESP 16; TEMP 36.1; O2SAT 93
--- NOTE | 2021-07-27 13:46 | HE.PHANOTE ---
Zosyn Continue for 3-5 days per ID
[2021-07-27 16:09] LABS: Glucose, Whole Blood 135 mg/dL (60-115)
[2021-07-27] MEDS: Folic Acid 1 MG TABLET PO (16:30)
[2021-07-27] MEDS: Tamsulosin HCL 0.4 MG CAPSULE PO (16:30)
[2021-07-27 19:26] VITALS: BP 128/75; PULSE 96; RESP 18; TEMP 37
[2021-07-27] MEDS: traMADoL HCL 50 MG TABLET PO (19:46)
[2021-07-27] MEDS: Thiamine HCL 100 MG TABLET PO (19:46)
[2021-07-27] MEDS: ondansetron HCL 4 MG/2 ML VIAL IVPUSH (19:53)
[2021-07-27 21:11] LABS: Glucose, Whole Blood 175 mg/dL (60-115)
[2021-07-28 07:12] VITALS: BP 114/69; PULSE 99; RESP 18; TEMP 36.2; O2SAT 92
[2021-07-28 07:23] LABS: Glucose, Whole Blood 161 mg/dL (60-115)
--- NOTE | 2021-07-28 09:57 | MHC.CM.PN ---
Per HOSE OPERATOR, ECHO is pending and last day of IV ABT is tomorrow. Patient will likely be ready for dc on 07/30/21, to return to [facility] at [facility].CM will follow.
[2021-07-28] MEDS: traMADoL HCL 50 MG TABLET PO ×2 (11:04→17:41)
[2021-07-28] MEDS: 0.9 % Sodium Chloride Flush 3 ML SYRINGE IVFLUSH ×2 (11:05→21:10)
[2021-07-28] MEDS: Heparin Sodium,Porcine Flush 50 UNITS, 0.9 % Sodium Chloride Flush 5 ML IVFLUSH (11:05)
--- NOTE | 2021-07-28 11:05 | P.PNIM_ITS ---
Subjective Subjective Date of Service: 07/28/21 Review of Systems follow-up bacteremia, diverticulitis and pneumonia Denies pain, shortness breath Sleeping good, eating well Physical Exam Vital Signs: Vital Signs: Last Vital Signs Temp 97.2 F 07/28/21 07:12 Pulse 99 07/28/21 07:12 Resp 18 07/28/21 07:12 BP 114/69 07/28/21 07:12 Pulse Ox 92 07/28/21 07:12 BMI result Body Mass Index 36.6 Appearing in no acute distress lung sounds are clear to auscultation heart regular rate rhythm, clear S1, S2 positive bowel sounds, abdomen is soft, nontender neuro patient is alert x3, no focal deficits Objective Data Active Medications Acetaminophen (Acetaminophen 325 Mg Tablet) 650 mg PO Q6H PRN PRN Reason: Pain, Mild (Pain Scale 1-3) Last Admin: 07/25/21 15:14 Dose: 650 mg Documented by: MICHELLE Albuterol Sulfate (Albuterol Sulfate (0.083%) 2.5 Mg/3 Ml Vial.Neb) 2.5 mg INHALE RQ4H WHILE AWAKE [facility] Last Admin: 07/28/21 07:30 Dose: Not Given Documented by: JENIFFER Non-Admin Reason: Patient Refused Buspirone HCl (Buspirone Hcl 5 Mg Tablet) 5 mg PO BID [facility] Last Admin: 07/27/21 19:46 Dose: 5 mg Documented by: MARSHALL Heparin Sodium (Porcine) 50 (units/ Sodium Chloride 5 ml) 0 units IVFLUSH TID S Last Admin: 07/27/21 19:47 Dose: 50 unit Documented by: MARSHALL Dextrose (Dextrose 50 % 25 Gm/50 Ml Vial) 25 gm IVPUSH Q15M PRN; Protocol PRN Reason: per Hypoglycemia Standing Ord. Fluticasone/Vilanterol (Fluticasone/Vilanterol 100/25 Blst.W.Dev) 1 puff INHALE RDAILY [facility] Last Admin: 07/28/21 07:30 Dose: Not Given Documented by: JENIFFER Non-Admin Reason: Patient Refused Folic Acid (Folic Acid 1 Mg Tablet) 1 mg PO DAILY@1700 [facility] Last Admin: 07/27/21 16:30 Dose: 1 mg Documented by: MACEY Glucose (Glucose Gel 15 Gm Gel..Gram.) 15 gm PO Q15M PRN; Protocol PRN Reason: per Hypoglycemia Standing Ord. Piperacillin Sod/Tazobactam (Sod 2.25 gm/ Sodium Chloride) 50 mls @ 100 mls/hr IV Q6H [facility] Last Admin: 07/28/21 05:33 Dose: Not Given Documented by: MARSHALL Non-Admin Reason: IV occluded Insulin Human Lispro (Insulin Lispro 100 Unit/Ml 3 Ml Vial) 0 unit SUBCUT QIDACHS [facility]; Protocol Last Admin: 07/28/21 09:22 Dose: Not Given Documented by: MICHELLE Non-Admin Reason: Patient Refused Lorazepam (Lorazepam 2 Mg/Ml Vial) 1 mg IVPUSH Q6H PRN PRN Reason: anxiety Last Admin: 07/25/21 20:09 Dose: 1 mg Documented by: NERY Magnesium Oxide (Magnesium Oxide 400 Mg Tablet) 400 mg PO DAILY [facility] Last Admin: 07/27/21 09:58 Dose: 400 mg Documented by: BORIS Omeprazole (Omeprazole 20 Mg Capsule.Dr) 20 mg PO BID@0630,1630 [facility] Last Admin: 07/28/21 06:08 Dose: Not Given Documented by: MARSHALL Non-Admin Reason: Patient Asleep Ondansetron HCl (Ondansetron Hcl 4 Mg/2 Ml Vial) 4 mg IVPUSH Q8H PRN PRN Reason: Nausea and Vomiting Last Admin: 07/27/21 19:53 Dose: 4 mg Documented by: MARSHALL Pharmacy Consult (Consult Rx Perform Med Rec) 1 each MISCELLANE ONCE PRN PRN Reason: Consult order Pharmacy Consult (Consult Rx Vancomycin Dosing) 1 each MISCELLANE DAILY PRN PRN Reason: Consult order Sodium Chloride (0.9 % Sodium Chloride Flush 3 Ml Syringe) 3 ml IVFLUSH QSHIFT [facility] Last Admin: 07/27/21 19:47 Dose: 3 ml Documented by: MARSHALL Tamsulosin HCl (Tamsulosin Hcl 0.4 Mg Capsule) 0.4 mg PO DAILY@1700 [facility] Last Admin: 07/27/21 16:30 Dose: 0.4 mg Documented by: MACEY Thiamine HCl (Thiamine Hcl 100 Mg Tablet) 100 mg PO BEDTIME [facility] Last Admin: 07/27/21 19:46 Dose: 100 mg Documented by: ANTOIC Tramadol HCl (Tramadol Hcl 50 Mg Tablet) 50 mg PO Q4H PRN PRN Reason: pain Last Admin: 07/27/21 19:46 Dose: 50 mg Documented by: ANTOIC Labs CBC & Chem 7: 07/22/21 06:20 07/24/21 15:03 Labs: Laboratory Results - last 24 hr 07/27/21 07/27/21 07/27/21 10:56 16:02 21:04 POC Glucose 144 H 135 H 175 H 07/28/21 07:14 POC Glucose 161 H Microbiology Microbiology Results: Microbiology 07/26/21 13:34 Stool Culture - Preliminary Stool Culture in progress. Assessment and Plan (1) Bacteremia: Status: Acute (2) Pneumonia: Status: Acute Plan This is a 65 year old male with a PMH of alcohol abuse with dependence, hyopnatremia, COPD, DM, HFpEF, who was [place] [facility] [place] was hospitalized for alcohol withdrawal and symptomatic hyponatremia. He now returns about 1 week later with reprots of diarrhea and mental status changes (although he does not appear to be disoriented on admission). He is noted to have LAUREN and will be admitted for further work up and treatment. Refused lab work 07/27/21 Community-acquired pneumonia recommend abx x 8 days, continue zosyn, change zosyn to augmentin 07/29/21 continue DuoNebs Bacteremia probably secondary to intraabdominal process - awaiting ID input - workup in progress UA unremarkable, no urine culture BCx growing enterococcus faecalis, enterococcus faecium (VRE - resistant to ampicillin and vanco) and coag negative staff. continue iv zosyn for 3-5 days as per ID, 5 days would be 07/29/21, change to Augmentin ID consult repeat BCx pending echo pending Acute Diverticulitis continue IV zosyn for bacteremia likely secondary to GI process, stop 07/29 Pain Management Supportive care seen by GI, agree with current management Right rib pain. right posterior 11th rib fx noted on 07/11/21 Declined lidocaine patch Can use oxycodone and morphine for pain Incentive spirometry Acute Kidney Injury. SCr baseline 0.7 to 0.8. improved to 0.9 today in the setting of diarrhea + infection no obstruction seen on imaging Restart IV fluids Hypotension. Stable due to above responded to IVF HypoMg. still low repleted with IV ma continue oral magnesium daily if no improvement can consider stopping PPI Acute Anemia (baseline around 12-13/35-38), presenting with: 9.7 stool occult positive likely r/t diverticulitis follow cbc COPD. No exacerbation DuoNebs DM sliding scale ADA diet Chronic HFpEF monitor closely while on IVF currently hypovoluemic Full Code DVT pptx - mechanical due to concern over acute blood loss anemia Attending Dr. Palmer DISPO PT evaluation for SNF vs home when medically stable Patient requires continued hospitalization for continued treatment of diverticulitis and bacteremia with IV Zosyn, physical therapy evaluation to determine disposition on discharge Quality Stroke Does the patient have a stroke diagnosis?: No VTE Prior VTE?: No VTE Risk Level:: Medical - moderate - high VTE Device Contraindication: N/A - Device Ordered VTE Drug Contraindication: Treatment Not Indicated
[2021-07-28] MEDS: busPIRone HCl 5 MG TABLET PO ×2 (11:06→21:08)
[2021-07-28] MEDS: Magnesium Oxide 400 MG TABLET PO (11:07)
[2021-07-28 11:19] VITALS: BP 125/72; PULSE 96; RESP 20; TEMP 36.6; O2SAT 95
[2021-07-28 11:30] LABS: Glucose, Whole Blood 153 mg/dL (60-115)
[2021-07-28 15:47] VITALS: BP 108/54; PULSE 85; RESP 18; TEMP 36.1; O2SAT 92
[2021-07-28 16:02] LABS: Glucose, Whole Blood 134 mg/dL (60-115)
--- NOTE | 2021-07-28 16:07 | CA_ITS ---
Transthoracic Echocardiogram Patient (Last, First, Middle): Kenneth Aragon A Gender: Male Date of : 1955 Age: 65 Procedure Date: 07/28/2021 Procedure Type: Transthoracic Echocardiogram Location: [facility] [place] Height: 182.88 cm Weight: 122.47 kg BSA: 2.42 m2 Heart Rate: bpm BP: 120 / 75 mmHg Director Engineering: Referring MD: Suzanne GREGORIO Symptoms: bacteremia; eval for endocarditis Study Quality: Technically Difficult ECG Rhythm: Sinus Conclusions: - Normal left ventricular size and systolic function. There is moderately increased left ventricular wall thickness. The visually estimated ejection fraction is between 55-60%. Abnormal diastolic function is noted. - There is mild to moderate aortic valve stenosis. Findings Left Ventricle Normal left ventricular size and systolic function. There is moderately increased left ventricular wall thickness. The visually estimated ejection fraction is between 55-60%. Abnormal diastolic function is noted. Spectral Doppler is indicative of an impaired relaxation filling pattern. E/E prime ratio is between 8 and 15 consistent with indeterminate filling pressures. Right Ventricle Normal right ventricular cavity size and systolic function. Atria The left atrium was not well visualized. Aortic Valve The aortic valve was not well visualized. There is mild to moderate aortic valve stenosis. There is no aortic valve regurgitation. Mitral Valve Likely normal mitral valve structure and function. There is no mitral valve regurgitation. There is no mitral valve stenosis. Pulmonic Valve The pulmonic valve was not well visualized. Tricuspid Valve Normal tricuspid valve structure and function. There is no tricuspid valve regurgitation. Normal right atrial pressure. There is no evidence of pulmonary hypertension. Great Vessels All visible segments of the aorta are normal in size. Venous The inferior vena cava is normal in size and collapses greater than 50% with inspiration. Pericardium/Pleural There is no evidence of pericardial effusion. Prior Study Comparison No significant change compared to prior study dated: 04/29/2020. Measurements 2D Linear Measurements IVSd: 1.36 0.6-0.9/0.6-1.0 cm LVIDd: 3.41 3.9-5.3/4.2-5.9 cm LVIDd Index: 1.41 2.4-3.2/2.2-3.1 cm/m2 LVIDs: 2.34 2.0-3.6 cm LVPWd: 1.39 0.7-1.1 cm Ao Root: 2.80 2.1-3.5 cm LA Diam: 2.70 2.7-3.8/3.0-4.0 cm LAIDs Index: 1.12 1.5-2.3 cm/m2 LV Mass: 201.86 67-162/88-224 g LV Mass Index: 83.41 43-95/49-115 g/m2 LVOT Diam: 2.00 3.0+(-)1.3 cm Mitral Valve MV Pk E: 0.55 MV PK A: 0.86 MV Decel Time: 160.00 E/A: 0.60 E'Lateral: 4.24 E'Medial: 4.24 E/E' Med: 12.90 E/E' Lat: 12.90 PHT: 47.00 MVA PHT: 4.68 Decel Glasscock: 3.43 Aortic Valve AoV Pk Elpidio: 2.56 AoV Mn Elpidio: 1.70 AoV VTI: 0.42 AoV Pk Grad: 26.00 Aov Mn Grad: 14.00 MABEL Cont.VTI: 0.93 LVOT LVOT Pk Elpidio: 0.63 LVOT Mn Elpidio: 0.46 LVOT VTI: 0.13 LVOT Pk Grad: 2.00 LVOT Mn Grad: 1.00 LVOT Diam: 2.00 LVOT Area: 3.14 Diastolic Function MV Pk E: 0.55 MV Pk A: 0.86 E/A: 0.60 E'Medial: 4.24 E/E' Med: 12.90 E' Laterial: 4.24 E/E' Lat: 12.90 Tricuspid Valve TR Pk Elpidio: 2.36 TR Pk Grad: 22.00 RA Press: 3.00 RVSP: 25.00 Great Vessels Aorta Ao Root-2D: 2.80 2.0-3.7 cm Pulmonary Valve PV Pk Elpidio: 1.38 Peak PV Grad: 8.00 Updated in Other Vendor System with Status of Final Gabino Carter MD electronically signed on 07/29/2021 5:12:47 PM with status of Final
--- NOTE | 2021-07-28 16:43 | PC.NURSE ---
1300 Midline not functioning. unable to flush. IR in to access it. Patsy Bass NP aware. Unable to get any A/B today.
[2021-07-28] MEDS: Amoxicillin/Potassium Clav 875 MG TABLET PO (17:38)
[2021-07-28] MEDS: Tamsulosin HCL 0.4 MG CAPSULE PO (17:38)
[2021-07-28] MEDS: Folic Acid 1 MG TABLET PO (17:38)
[2021-07-28] MEDS: Omeprazole 20 MG CAPSULE.DR PO (17:38)
--- NOTE | 2021-07-28 20:26 | PC.NURSE ---
Pt is refusing midline to be removed , Patsy Hsu SIZE CUTTER was notified
[2021-07-28] MEDS: Acetaminophen 325 MG TABLET 650 MG PO (21:08)
[2021-07-28] MEDS: Thiamine HCL 100 MG TABLET PO (21:08)
[2021-07-28 23:54] VITALS: BP 101/55; PULSE 98; RESP 19; TEMP 36.6; O2SAT 93
[2021-07-29 04:15] VITALS: PULSE 95; RESP 19
[2021-07-29] MEDS: Amoxicillin/Potassium Clav 875 MG TABLET PO (06:02)
[2021-07-29] MEDS: Omeprazole 20 MG CAPSULE.DR PO (06:02)
[2021-07-29 07:11] VITALS: BP 100/57; PULSE 97; RESP 18; TEMP 36.6; O2SAT 98
[2021-07-29 07:22] LABS: Glucose, Whole Blood 183 mg/dL (60-115)
[2021-07-29] MEDS: Insulin Lispro 100 UNIT/ML 3 ML VIAL SUBCUT (08:11)
[2021-07-29] MEDS: Magnesium Oxide 400 MG TABLET PO (08:11)
[2021-07-29] MEDS: Loperamide HCl 2 MG CAPSULE PO ×2 (08:11→10:18)
[2021-07-29] MEDS: busPIRone HCl 5 MG TABLET PO (08:11)
--- NOTE | 2021-07-29 09:12 | HO.MIDLINE ---
PICC Line Insertion REMOVAL OF MIDLINES Diagnosis: [BACTEREMIA] NO LONGER NEEDED--PT BEING DISCHARGE TODAY 1. DATE; 07/29/2021 2. REASON FOR REMOVAL: NO LONGER NEEDED--PT BEING DISCHARGE TODAY 3. INSERTED LENGTH: [id number] NON-PASV MIDLINE 4. REMOVED LENGTH: [id number] NON-PASV MIDLINE--INTACT AND MEASURED 5. A DRESSING (2X2 AND TEGADERM) APPLIED TO THE LEFT UPPER ARM (BASILIC VEIN). NO BLEEDING/EDEMA NOTED FROM THE REMOVAL SITE. PT TOLERATED THIS.
--- NOTE | 2021-07-29 09:29 | P.DS_ITS ---
DS: Providers Provider Date of Service: 07/29/21 Date of admission: 07/21/21 09:16 Primary care physician: Jaylen Cummings MD Consults: 07/23/21 11:42 Consult to Psychiatry Routine Consulting Provider: Psych Covering Reason for consultation: SEVERE ANXIETY Has provider been notified: No 07/23/21 11:50 Consult to Gastroenterology Routine Consulting Provider: Ricky Hall Reason for consultation: diverticulitis Has provider been notified: No 07/24/21 10:31 Consult to Infectious Diseases Routine Consulting Provider: Zeina Prado Reason for consultation: bacteremia Has provider been notified: No 07/24/21 10:32 Consult to Pulmonology Routine Consulting Provider: Yasmany Greco Reason for consultation: abnormal Ct chest Has provider been notified: No Attending physician on discharge: Mike Palmer Discharging clinician: Patsy Greco DS: Diagnosis Discharge Diagnosis (1) Bacteremia: Status: Acute (2) Pneumonia: Status: Acute DS: Summary Hospital Course Hospital Course: Hp as per admitting provider This is a 65 year old M with a PMH as outlined below who was admitted to [facility] from 07/11/21 to 07/15/21 for treatment of alcohol withdrawal and severe symptomatic hyponatreamia. He was discharged a SNF and now returns with reports of decreased urine output and changes in mental status. Patient is seen and examined in the ED around 9AM. He reprots that he was doing fairly well at the SNF until about 2 to 3 days ago where he started having diarrhea 3 to 4 times a daily with associated diffuse abdominal pain, nausea and several episodes of vomiting. His oral intake had also decreased. There are no reports of fevers or chills. Upon arrival to the ED, he was noted to be hypo tensive in the 60s to 70s systolic which improved with 3L of IVF. His blood work showed LAUREN with a SCr of 3.6 (it was 0.86 1 week prior). His imaging studies showed concern over diverticulitis. He was treated with IV cefepime + flagy. Per history of the ED staff, the patient has been evaluated by the webbing weaver and at this time, he is deemded stable for admission under the hospitalist service . Bacteremia probably secondary to diverticulitis. BCx growing enterococcus faecalis, enterococcus faecium (VRE - resistant to ampicillin and vanco) and coag negative staph. Seen and evaluated by Infectious Disease recommended course of Zosyn while inpatient which was completed and Augmentin for outpatient 7 days. he was seen and evaluated by Gastroenterology for the diverticulitis further workup needed. Will need colonoscopy in 10-12 weeks after acute episode diverticulitis has resolved. Community-acquired pneumonia Treated with IV Zosyn. Change to Augmentin and will continue this outpatient for 7 days as per ID rec. Right rib pain. right posterior 11th rib fx noted on 07/11/21. Declined lidocaine patch . Treated with oxycodone and morphine while inpatient, suggested incentive spirometry. Acute Kidney Injury. SCr baseline 0.7 to 0.8. Iin the setting of diarrhea + infection, no obstruction seen on imaging . Responded to IV fluids. Hypotension. Stable . Responded to IV fluids. HypoMag. low during hospitalization, repleted. Unfortunately patient declined to have repeat lab work done. On oral maintenance dose of magnesium. Acute Anemia. (baseline around 12-/35-38), presenting with: 9.12/07. stool occult positive. Secondary to diverticulitis. Did not require any blood transfusion COPD.? No exacerbation. Continue home medications Diabetes mellitus. Continue home medications Chronic HFpEF. No exacerbation Anticipate less than 30 day stay Time Spent with Patient Time attestation: Total time spent providing and/or coordinating discharge services: Discharge coordination time: Greater than 30 minutes Quality: Stroke Does the patient have a stroke diagnosis?: No Physical Exam Vital Signs: Vital Signs: Last Vital Signs Temp 97.8 F 07/29/21 07:11 Pulse 97 07/29/21 07:11 Resp 18 07/29/21 07:11 BP 100/57 L 07/29/21 07:11 Pulse Ox 98 07/29/21 07:11 BMI result Body Mass Index 36.6 Appearing in no acute distress head is normocephalic atraumatic eyes pupils are PERRLA sclera is anicteric mouth throat mucous membranes are intact and moist neck is supple no lymphadenopathy, no JVD noted lung sounds are clear to auscultation heart regular rate rhythm, clear S1, S2 positive bowel sounds, abdomen is soft, nontender neuro patient is alert x3, no focal deficits DS: Data Data Completed and Pending Completed studies during hospitalization [Text1]: Procedures Detoxification Services for Substance Abuse Treatment (06/22/21) Insertion of Infusion Device into Superior Vena Cava, Percutaneous Approach (06/01/21) Introduction of Remdesivir Anti-infective into Peripheral Vein, Percutaneous Approach, [employer] (06/01/21) Labs on day of discharge: Laboratory Results - last 24 hr 07/28/21 07/28/21 07/29/21 11:21 15:56 07:12 POC Glucose 153 H 134 H 183 H Preliminary micro results at discharge 07/26/21 13:34 Stool Culture - Preliminary Stool Culture in progress. 07/24/21 15:03 Blood Culture - Preliminary Blood - Venous No growth after 48 hours. 07/24/21 15:03 Blood Culture - Preliminary Blood - Venous No growth after 48 hours. Discharge Plan Discharge Anticipated Discharge Date/Time: 07/29/21 09:20 Patient Disposition: [facility] Discharge Diagnosis: CAP Bacteremia Diverticulitis Referrals: [facility] [Outside] - 1 Week Lyssa Mario MD [Physician] - 1 Week Discharge Medications: New amoxicillin-pot clavulanate 875-125 mg Tablet 1 tab PO Q12H Qty: 12 0RF Continued albuterol sulfate 2.5 mg /3 mL (0.083 %) solution for nebulization 1 amp inhalation QID 0RF thiamine HCl (vitamin B1) 100 mg tablet 1 tab PO BEDTIME 0RF (DME) FreeStyle Lite Strips Strip MISCELLANEOUS QID 0RF simvastatin 20 mg tablet 1 tab PO BEDTIME 0RF lisinopril 10 mg tablet 1 tab PO DAILY 0RF folic acid 1 mg tablet 1 tab PO DAILY@1700 0RF albuterol sulfate 90 mcg/actuation HFA aerosol inhaler 2 puff inhalation Q6H PRN (Reason: Wheezing) 0RF buspirone 5 mg tablet 5 mg PO BID 0RF aspirin 81 mg tablet,delayed release (DR/EC) 1 tab PO BEDTIME 0RF tamsulosin 0.4 mg capsule 1 cap PO DAILY@1700 0RF ramelteon 8 mg tablet 1 tab PO BEDTIME 0RF omeprazole 20 mg capsule,delayed release(DR/EC) 1 cap PO BID@0630,1630 0RF hydroxyzine HCl 50 mg Tablet 50 mg PO Q8H PRN (Reason: Anxiety) Qty: 20 0RF gabapentin 300 mg capsule 2 cap PO TID 0RF Lantus U-100 Insulin 100 unit/mL solution 45 unit subcut BEDTIME 0RF fluticasone propion-salmeterol [Wixela Inhub] 250-50 mcg/dose Blister With Device 1 inh INHALATION BID 0RF loperamide 2 mg Capsule 2 mg PO Q6H PRN (Reason: Diarrhea) 0RF ondansetron HCl 4 mg Tablet 4 mg PO Q4H PRN (Reason: Nausea) 0RF bisacodyl 10 mg Suppository 10 mg [place] DAILY PRN (Reason: Constipation) 0RF lidocaine 5 % Adhesive Patch,Medicated 1 patch TOPICAL DAILY 0RF Rx Instructions: leave on most painful area for up to 12 hrs, right posterior 11th rib oxycodone 5 mg Tablet 5 mg PO Q8H PRN (Reason: Pain) 0RF insulin aspart U-100 [Novolog Flexpen U-100 Insulin] 100 unit/mL (3 mL) Insulin Pen 1 sliding scale dose SUBCUT USEASDIRECTD 0RF Protocol: Insulin Correction Scale Less than or equal to 110 ---- Give (units): 0 111 to 150 Give (units): 0 151 to 200 Give (units): 6 201 to 250 Give (units): 8 251 to 300 Give (units): 10 301 to 350 Give (units): 12 Greater than 350 Give (units): 14 Call MD if Blood Glucose > : 350 acetaminophen [Tylenol] 325 mg Capsule 650 mg PO TID 0RF Discharge Orders: Discharge Order (Routine); Ordered 07/29/21 Ordered By: Patsy Greco Diet: advance to usual diet Activity on Discharge: As tolerated Stand Alone Forms: Patient Portal Discharge page Care Plan Goals: Resolution of symptoms Health Concerns: CAP Bacteremia Diverticulitis Plan of Treatment: Continue medications as prescribed Follow up with your primary care provider as needed Assessment: See discharge summary
[2021-07-29 10:55] LABS: COVID-19 Test Negative (Negative); IDNOW Serial# 55D5AD1C
--- NOTE | 2021-07-29 12:39 | MHC.CM.PN ---
Per PHYSICIAN RELATIONS MANAGER/Patsy, Patient will be medically cleared for dc to SNF/STR today. Patient will dc/return to STR at [facility] today at 2PM, via [facility]. IMM was addressed with Patient at bedside and the original has been given to him and a copy placed on the chart. Patient is aware of and in agreement with the dc plan.
--- NOTE | 2021-07-29 14:39 | MHC.CM.PN ---
Per [facility] Admin Secretary, CM was told to change from Ambulance to chair van.
[2021-07-29] MEDS: Ondansetron ODT 4 MG TAB.RAPDIS TRANSLINGU (14:51)
--- NOTE | 2021-07-29 15:07 | PC.NURSE ---
attemptedx 2 to call famility, no answer,unable to leave message
== END 2021-07-29 15:30 | disposition skilled nursing facility (03) | DRG 377 ==
LOC: HO.ED 07-21 01:25 → HO.EDOVER 07-21 09:29 → HO.IMC 07-21 14:02
PROVIDERS: Internal Medicine Cardiovascular Disease; Internal Medicine Gastroenterology; Physician Assistant Medical; Admitting Provider Family Medicine; Emergency Provider Emergency Medicine Emergency Medical Services; PCP Internal Medicine Geriatric Medicine; Visit Provider Nurse Practitioner Acute Care
DX: K57.33 Diverticulitis of large intestine without perforation or abscess with bleeding (principal); J18.9 Pneumonia, unspecified organism; N17.9 Acute kidney failure, unspecified; I50.32 Chronic diastolic (congestive) heart failure; J44.0 Chronic obstructive pulmonary disease with (acute) lower respiratory infection; R78.81 Bacteremia; Z16.11 Resistance to penicillins; Z16.21 Resistance to vancomycin; I95.9 Hypotension, unspecified; E10.9 Type 1 diabetes mellitus without complications; E83.42 Hypomagnesemia; F41.9 Anxiety disorder, unspecified; F10.10 Alcohol abuse, uncomplicated; E78.5 Hyperlipidemia, unspecified; Z56.0 Unemployment, unspecified; Z79.899 Other long term (current) drug therapy; Z20.822 Contact with and (suspected) exposure to COVID-19; D64.9 Anemia, unspecified; B95.2 Enterococcus as the cause of diseases classified elsewhere; Z87.891 Personal history of nicotine dependence; Z79.4 Long term (current) use of insulin; Z79.82 Long term (current) use of aspirin; Z79.891 Long term (current) use of opiate analgesic
CPT/HCPCS: 36410; 36415; 36573; 70450; 71045; 71250; 74176; 80048; 80076; 81001; 82077; 82140; 82272; 82565; 82947; 83605; 83690; 83735; 84145; 85025; 85027; 87040; 87045; 87046; 87077; 87147; 87186; 87205; 87493; 87635; 93005; 93306; 96361; 96365; 96367; 99285; 99291; 99292; J0692; J1642; J2060; J2270; J2405; J2543; J3370; J3475

== ENCOUNTER 2021-08-03 14:48 | Inpatient (IN) | payer OTHER, SELFPAY ==
--- NOTE | ~2021-08-03 | CT_ITS ---
EXAMINATION: CT ABDOMEN AND PELVIS WITHOUT CONTRAST CLINICAL INFORMATION: Acute renal failure and pain COMPARISON: CT abdomen pelvis 07/21/2021 TECHNIQUE: Multidetector volumetric imaging was performed from the superior aspect of the liver through the pubic symphysis. Sagittal and coronal reformatted images were obtained on the technologist's workstation. This CT examination was performed using dose optimization techniques as appropriate, variously including the following: *Automated exposure control *Adjustment of mA and/or kV according to patient size (this includes techniques or standardized protocols for targeted exams where dose is matched to indication/reason for exam; i.e. extremities or head) *Use of iterative reconstruction technique DLP: 804 mGy-cm FINDINGS: LUNG BASES: Basilar infiltrate/atelectasis improved when compared to the prior study. LIVER, GALLBLADDER, AND BILIARY TREE: The liver is normal in size, shape, and attenuation. No focal hepatic lesion or biliary ductal dilatation is present. The gallbladder is unremarkable with no evidence of radiopaque gallstones, gallbladder wall thickening, or obvious pericholecystic inflammatory changes. PANCREAS: Unremarkable. SPLEEN: Unremarkable. ADRENAL GLANDS: Unremarkable. KIDNEYS AND URETERS: The kidneys are normal in size, shape, and attenuation. A 2 cm left cortical Bosniak class I renal cyst is present. This needs no further follow-up imaging. No Hydronephrosis, hydroureter, or calculi seen. There is bilateral nonspecific perinephric stranding. BLADDER: Grissom catheter is present in the bladder. The bladder wall demonstrates symmetric thickening GASTROINTESTINAL TRACT: The small and large bowel are unremarkable. The appendix is unremarkable. ABDOMINAL WALL: No significant hernia is appreciated. LYMPH NODES: No retroperitoneal lymphadenopathy. VASCULAR: Moderate aortoiliac atherosclerotic changes are present. No aneurysm seen. PELVIC VISCERA: Unremarkable. OSSEOUS STRUCTURES: Mild degenerative changes are present in the spine. No bony destructive lesions. CT/CT abdomen pelvis wo con IMPRESSION: 1. No significant abnormality. A cause for the patient's renal failure such as obstructive uropathy has not been found. 2. Incidental note made of improving basilar infiltrate/atelectasis, benign left renal cyst which needs no further imaging or follow-up and other incidental findings described above Fleischner guidelines were followed.
--- NOTE | ~2021-08-03 | XR_ITS ---
EXAMINATION: XR CHEST CLINICAL INFORMATION: Left PICC line placement. COMPARISON: Chest x-ray 08/04/2021 TECHNIQUE: Frontal view of the chest was obtained. FINDINGS: The lungs are well-expanded and clear. Heart size and pulmonary vascularity is normal. There is a new left PICC line with its tip in the distal SVC ready for use. Mild degenerative changes left glenohumeral joint space is noted. There is a right shoulder prosthesis present. XR/XR chest 1V IMPRESSION: New right PICC line tip in distal SVC, ready for use. The lungs are clear.
--- NOTE | ~2021-08-03 | XR_ITS ---
EXAMINATION: CHEST RADIOGRAPH AND ABDOMEN CLINICAL INFORMATION: Check femoral dialysis catheter and ET tube COMPARISON: Chest radiograph 08/03/2021, CT abdomen pelvis 08/04/2021 TECHNIQUE: Single view chest, single view abdomen FINDINGS: ET tube is present 4 cm above the heena. Heart size is normal. The lungs are clear without infiltrates, effusions or masses. No pneumothorax. Right femoral line appears slightly lateral on the KUB. However, on the CT scan, the tip of the line is positioned in the external iliac vein. Appearances are ectatic 4 by slight lateral swelling of the catheter in the subcutaneous tissues prior to entry into the vein. The bowel gas pattern is unremarkable. A Grissom catheter is in place. XR/XR chest 1V IMPRESSION: 1. ET tube 4 cm above heena in good position. 2. Right femoral venous catheter is in good position based upon the immediately preceding CT scan.
--- NOTE | ~2021-08-03 | IR_ITS ---
PROCEDURE: IR INSERTION OF PICC, PORTABLE CLINICAL INFORMATION: Combative ICU patient. COMPARISON: None TECHNIQUE: Portably, an ultrasound was performed through the left upper extremity, and the left cephalic vein was identified. The left arm was cleaned and draped in the usual sterile manner. 1% lidocaine was applied at puncture site. A tourniquet was applied above the left thumb prior to the exam. Under sterile ultrasound guidance, a single wall needle was advanced through the skin incision, and the left cephalic vein was punctured. After obtaining venous return, a thin guidewire was placed and the needle withdrawn. Over the guidewire, a 5-[place] dilator sheath was inserted following a skin incision. The dilator and the guidewire were removed, and a long 50 cm triple-lumen PICC catheter with a small guidewire were then inserted through the 5-[place] sheath into the SVC. The guidewire and the peel-away sheath were removed and all 3 ports of the PICC catheter were flushed with heparinized saline. There was blood withdrawal seen in all 3 lines. The catheter was then anchored in a sterile fashion to the skin. All ports of the catheter were flushed with heparinized saline. A chest x-ray was to be obtained subsequently. All elements of maximal sterile barrier technique followed including use of cap, mask, sterile gown, sterile gloves, a sterile full body drape and hand hygiene. Also followed skin preparation with 2% chlorhexidine for cutaneous antisepsis, and sterile ultrasound preparation with sterile gel and probe cover when applicable. FINDINGS: On preliminary ultrasound imaging, there are widely patent left cephalic and left basilic veins. Insertion of 5-[place] triple-lumen 50 cm long PICC catheter via left cephalic vein portably in ICU. IR/IR cvc insert peripheral IMPRESSION: Successful portable insertion of left PICC triple-lumen catheter via left cephalic vein. A chest x-ray will be obtained subsequently.
--- NOTE | ~2021-08-03 | XR_ITS ---
EXAMINATION: XR CHEST CLINICAL INFORMATION: Altered mental status COMPARISON: CT chest 07/22/2021 chest radiograph 07/21/2021 TECHNIQUE: Frontal view of the chest was obtained. FINDINGS: No acute abnormality is noted involving the heart, lungs, mediastinum, bony thorax or soft tissues. Infiltrate/pleural based opacities seen on prior CT not well appreciated on the current study. A right shoulder prosthesis is again noted. XR/XR chest 1V IMPRESSION: No acute intrathoracic disease.
--- NOTE | ~2021-08-03 | XR_ITS ---
EXAMINATION: CHEST RADIOGRAPH AND ABDOMEN CLINICAL INFORMATION: Check femoral dialysis catheter and ET tube COMPARISON: Chest radiograph 08/03/2021, CT abdomen pelvis 08/04/2021 TECHNIQUE: Single view chest, single view abdomen FINDINGS: ET tube is present 4 cm above the heena. Heart size is normal. The lungs are clear without infiltrates, effusions or masses. No pneumothorax. Right femoral line appears slightly lateral on the KUB. However, on the CT scan, the tip of the line is positioned in the external iliac vein. Appearances are ectatic 4 by slight lateral swelling of the catheter in the subcutaneous tissues prior to entry into the vein. The bowel gas pattern is unremarkable. A Grissom catheter is in place. XR/XR abdomen 1V IMPRESSION: 1. ET tube 4 cm above heena in good position. 2. Right femoral venous catheter is in good position based upon the immediately preceding CT scan.
--- NOTE | 2021-08-03 14:56 | ED.GENADULT ---
HPI - General Adult General Chief complaint: Altered Mental Status <DARLINE Chaney - Last Filed: 08/03/21 17:56> Stated complaint: LETHARGY/AMS SINCE 10AM PER SNF <DARLINE Chaney - Last Filed: 08/03/21 17:56> Time Seen by Provider: 08/03/21 14:56 <DARLINE Chaney - Last Filed: 08/03/21 17:56> Source: patient and EMS <DARLINE Chaney - Last Filed: 08/03/21 17:56> Mode of arrival: EMS <DARLINE Chaney - Last Filed: 08/03/21 17:56> Limitations: no limitations <DARLINE Chaney - Last Filed: 08/03/21 17:56> History of Present Illness HPI narrative: Patient is a 65 year old male presenting to the emergency department today with altered mental status. EMS states that the patient comes from a SNF where he has been undergoing rehab after a fall with left rib injury. EMS states that the patient has developed a UTI at the facility and has been undergoing treatment there for that but they believe him to be more altered today. Patient denies any dizziness, lightheadedness, abdominal pain, nausea, vomiting, fever, chills, blurry vision, double vision, loss of vision, chest pain, difficulty breathing, shortness of breath, back pain, night sweats, pain with urination, increased urinary frequency, increased urinary urgency, blood in his urine or stool, syncope or a near syncopal episode, recent trauma or falls, bowel incontinence, bladder incontinence, bowel retention, bladder retention, or any other complaints at this time. Staff informed EMS that he has been more altered since 10am on 08/03/2021. <DARLINE Chaney - Last Filed: 08/03/21 17:56> Onset (ago): hour(s) <DARLINE Chaney - Last Filed: 08/03/21 17:56> Related Data Home medications: Home Medications Medication Instructions Recorded Confirmed albuterol sulfate 90 mcg/actuation 2 puff INHALATION Q6H PRN 12/29/20 08/03/21 aerosol inhaler blood sugar diagnostic (FreeStyle 12/29/20 02/04/21 Lite Strips) folic acid 1 mg tablet 1 tab PO DAILY@1700 08/22/21 03/27/22 lisinopril 10 mg tablet 1 tab PO DAILY 12/29/20 08/03/21 simvastatin 20 mg tablet 1 tab PO BEDTIME 12/29/20 08/03/21 thiamine HCl (vitamin B1) 100 mg 1 tab PO BEDTIME 12/29/20 08/03/21 tablet aspirin 81 mg tablet,delayed 1 tab PO BEDTIME 02/04/21 08/03/21 release buspirone 5 mg tablet 5 mg PO BID 02/04/21 08/03/21 ramelteon 8 mg tablet 1 tab PO BEDTIME 05/12/21 08/03/21 tamsulosin 0.4 mg capsule 1 cap PO DAILY@1700 05/12/21 08/03/21 omeprazole 20 mg capsule,delayed 1 cap PO BID@0630,1630 06/01/21 08/03/21 release insulin glargine 100 unit/mL 45 unit SUBCUT BEDTIME 06/24/21 08/03/21 subcutaneous solution (Lantus U-100 Insulin) acetaminophen 325 mg capsule 650 mg PO TID 07/21/21 08/03/21 (Tylenol) bisacodyl 10 mg rectal suppository 10 mg OH DAILY PRN 07/21/21 08/03/21 fluticasone 250 mcg-salmeterol 50 1 inh INHALATION BID 07/21/21 08/03/21 mcg/dose blistr powdr for inhalation (Wixela Inhub) insulin aspart U-100 100 unit/mL 1 sliding scale dose SUBCUT TIDAC 07/21/21 08/03/21 (3 mL) subcutaneous pen (Novolog Flexpen U-100 Insulin aspart) loperamide 2 mg capsule 2 mg PO Q6H PRN 07/21/21 08/03/21 ondansetron HCl 4 mg tablet 4 mg PO Q4H PRN 07/21/21 08/03/21 oxycodone 5 mg tablet 5 mg PO Q8H PRN 07/21/21 08/03/21 erythromycin 5 mg/gram (0.5 %) eye 0.5 inch OPHTHALMIC (EYE) TID 08/03/21 08/03/21 ointment gabapentin 600 mg tablet 600 mg PO TID 08/03/21 08/03/21 guaifenesin 100 mg/5 mL oral liquid 200 mg PO Q4H PRN 08/03/21 08/03/21 lidocaine 4 % topical patch 1 patch TOPICAL DAILY 08/03/21 08/03/21 (Aspercreme (lidocaine)) Previous Rx's Medication Instructions Recorded hydroxyzine HCl 50 mg tablet 50 mg PO Q8H PRN #20 tab 06/05/21 amoxicillin 875 mg-potassium 1 tab PO Q12H #12 tab 07/29/21 clavulanate 125 mg tablet <DARLINE Chaney Last Filed: 08/03/21 17:56> Allergies/adverse reactions: Allergies Allergy/AdvReac Type Severity Reaction Status Date / Time ENVIRONMENTAL Allergy Mild SNEEZING, Uncoded 08/03/21 15:10 WATERY EYES <DARLINE Chaney Last Filed: 08/03/21 17:56> Review of Systems Constitutional: Constitutional: Reports no additional constitutional complaints, Denies chills, Denies fever(s) and Denies night sweats <DARLINE Chaney Last Filed: 08/03/21 17:56> Eyes: Eyes: Reports no additional eye complaints, Denies blurry vision, Denies change in vision, Denies diplopia, Denies eye discharge, Denies loss of vision and Denies eye pain <DARLINE Chaney Last Filed: 08/03/21 17:56> ENT: Denies dizziness <DARLINE Chaney Last Filed: 08/03/21 17:56> Cardiovascular: Cardiovascular: Reports no additional cardiovascular complaints, Denies chest pain, Denies lightheadedness, Denies Loss of Consciousness and Denies dyspnea <DARLINE Chaney Last Filed: 08/03/21 17:56> Respiratory: Respiratory: Reports no additional respiratory complaints and Denies dyspnea <DARLINE Chaney Last Filed: 08/03/21 17:56> Gastrointestinal: Gastrointestinal: Reports no additional gastrointestinal complaints, Denies abdominal pain, Denies melena, Denies hematochezia, Denies change in bowel habits and Denies change in stool character <DARLINE Chaney Last Filed: 08/03/21 17:56> Genitourinary: Genitourinary: Reports no additional male genitourinary complaints, Denies hematuria, Denies oliguria, Denies difficulty urinating, Denies dysuria, Denies urinary frequency, Denies urinary hesitancy, Denies urinary incontinence and Denies urinary urgency <DARLINE Chaney - Last Filed: 08/03/21 17:56> Musculoskeletal: Musculoskeletal: Reports no additional musculoskeletal complaints, Denies numbness and Denies tingling <DARLINE Chaney - Last Filed: 08/03/21 17:56> Neurologic: Denies dizziness, Denies loss of vision, Denies numbness and Denies tingling <DARLINE Chaney - Last Filed: 08/03/21 17:56> Psychiatric: Psychiatric: Reports no additional psychiatric complaints <DARLINE Chaney - Last Filed: 08/03/21 17:56> Endocrine: Endocrine: Reports no additional endocrine complaints <DARLINE Chaney - Last Filed: 08/03/21 17:56> Hematologic/Lymphatic: Hematologic/Lymphatic: Reports no additional hematologic/lymphatic complaints <DARLINE Chaney - Last Filed: 08/03/21 17:56> Allergic/Immunologic: Allergic/Immunologic: Reports no additional allergic/immunologic complaints <DARLINE Chaney - Last Filed: 08/03/21 17:56> PMFSH Past Medical History Attestation statement: The following information was validated with the patient. <DARLINE Chaney - Last Filed: 08/03/21 17:56> Source: old records reviewed <DARLINE Chaney - Last Filed: 08/03/21 17:56> Medical History: Medical History LAUREN (acute kidney injury) Alcohol abuse COPD (chronic obstructive pulmonary disease) Diabetes mellitus type 1 Diastolic dysfunction Diastolic heart failure Fall HLD (hyperlipidemia) Hypertension Nonrheumatic aortic (valve) stenosis Obesity <DARLINE Chaney - Last Filed: 08/03/21 17:56> Surgical History: Surgical History H/O elbow surgery H/O shoulder surgery History of hydrocelectomy S/P TURP <DARLINE Chaney - Last Filed: 08/03/21 17:56> Family History Family History: Family History Father Diabetes Mother Diabetes <DARLINE Chaney - Last Filed: 08/03/21 17:56> Social History Social History: Social History Household Members: None Housing: [facility] Do you presently have visiting nurse or other home services: Yes (used to live in apt. has been in [place] for ahwile ) Alcohol intake: current Alcohol intake frequency: 3 or more drinks per day Alcohol type: hard liquor Patient Tobacco Use Status: Former Tobacco user Tobacco use type: Cigar e-Cigarette/Vaping Use: Currently Using Second Hand Smoke Exposure: No Advance Directives: Yes Advance Directives on File: Yes Advance Directives Date on File: 10/11/20 service: No Current occupational status: unemployed and disabled <DARLINE Chaney - Last Filed: 08/03/21 17:56> Physical Exam ED Vital Signs: Vital Signs - 24 hr 08/03/21 15:41 08/03/21 17:22 08/03/21 18:00 Temperature 100.4 F 99.4 F Pulse Rate 98 93 99 Respiratory Rate 20 16 17 Blood Pressure 94/68 144/103 H 90/40 L Pulse Oximetry 92 94 99 08/03/21 19:12 08/03/21 20:00 08/03/21 21:56 Temperature 98.6 F Pulse Rate 105 H 114 H 102 H Respiratory Rate 20 20 Blood Pressure 107/92 H 84/44 L Pulse Oximetry 95 100 BMI result Body Mass Index 29.4 <DARLINE Chaney - Last Filed: 08/03/21 17:56> Vital Signs - 24 hr 08/03/21 15:41 08/03/21 17:22 08/03/21 18:00 Temperature 100.4 F 99.4 F Pulse Rate 98 93 99 Respiratory Rate 20 16 17 Blood Pressure 94/68 144/103 H 90/40 L Pulse Oximetry 92 94 99 08/03/21 19:12 08/03/21 20:00 08/03/21 21:56 Temperature 98.6 F Pulse Rate 105 H 114 H 102 H Respiratory Rate 20 20 Blood Pressure 107/92 H 84/44 L Pulse Oximetry 95 100 BMI result Body Mass Index 29.4 <Diaz Esteves MD - Last Filed: 08/03/21 22:58> Const General: cooperative, no acute distress, alert and awake <DARLINE Chaney - Last Filed: 08/03/21 17:56> Nutritional Appearance: well nourished <DARLINE Chaney - Last Filed: 08/03/21 17:56> Orientation/consciousness: patient oriented x3 <DARLINE Chaney - Last Filed: 08/03/21 17:56> Limitations: no limitations <DARLINE Chaney - Last Filed: 08/03/21 17:56> HENMT Head: Yes normal to inspection and Yes atraumatic <DARLINE Chaney - Last Filed: 08/03/21 17:56> Ears: hearing grossly normal bilaterally and external ears normal <DARLINE Chaney - Last Filed: 08/03/21 17:56> General nose exam: Normal external nose present, no nasal discharge noted and no epistaxis <DARLINE Chaney - Last Filed: 08/03/21 17:56> Face and sinus: Yes normal facial exam, No abrasion and No laceration <DARLINE Chaney - Last Filed: 08/03/21 17:56> Mouth: Normal oral and palatal mucosa present, no drooling and no muffled voice <DARLINE Chaney - Last Filed: 08/03/21 17:56> Eyes General: appearance normal, both eyes and all related structures <DARLINE Chaney - Last Filed: 08/03/21 17:56> Periorbital: periorbital findings normal <DARLINE Chaney - Last Filed: 08/03/21 17:56> Eyelids: Yes eyelids normal <DARLINE Chaney - Last Filed: 08/03/21 17:56> Conjunctivae: conjunctivae normal <DARLINE Chaney - Last Filed: 08/03/21 17:56> Pupils: Equal, round and reactive pupils present <DARLINE Chaney - Last Filed: 08/03/21 17:56> EOM: EOMs intact bilaterally <DARLINE Chaney - Last Filed: 08/03/21 17:56> Neck Neck: Yes normal visual inspection, Yes full ROM and Yes no lymphadenopathy <Sarah HugginsDARLINE earl - Last Filed: 08/03/21 17:56> Chest Chest palpation & inspection: normal inspection of the chest <Sarah HugginsDARLINE earl - Last Filed: 08/03/21 17:56> Resp Effort & Inspection: normal respiratory effort and able to speak in complete sentences <Sarah HugginsDARLINE earl - Last Filed: 08/03/21 17:56> Auscultation: clear to auscultation bilaterally <Sarah HugginsDARLINE earl - Last Filed: 08/03/21 17:56> Cardio Rate: regular rate <Sarah HugginsDARLINE earl - Last Filed: 08/03/21 17:56> Rhythm: regular rhythm <Sarah HugginsDARLINE earl - Last Filed: 08/03/21 17:56> GI Inspection: Yes normal to inspection <Sarah HugginsDARLINE earl - Last Filed: 08/03/21 17:56> Other: patient is sitting in a wet depends adult diaper <Sarah HugginsDARLINE earl - Last Filed: 08/03/21 17:56> Neuro General: patient oriented x3 and moves all extremities <Sarah HugginsDARLINE earl - Last Filed: 08/03/21 17:56> Cranial nerves: Yes Equal, round and reactive pupils present <Sarah HugginsDARLINE earl - Last Filed: 08/03/21 17:56> Cognition (Neuro): normal cognition <Sarah HugginsDARLINE earl - Last Filed: 08/03/21 17:56> Motor exam (neuro): 5/5 motor strength present throughout <Sarah HugginsDARLINE earl - Last Filed: 08/03/21 17:56> Sensory Exam: Normal double simultaneous stimulation for sensation <Sarah HugginsDARLINE earl - Last Filed: 08/03/21 17:56> Coordination: [id number] test normal <Sarah HugginsDARLINE earl - Last Filed: 08/03/21 17:56> Extrem General: Yes normal to inspection, Yes full ROM and Yes capillary refill normal <Sarah HugginsDARLINE earl - Last Filed: 08/03/21 17:56> Psych Appearance: grossly normal <Sarah DARLINE Perez - Last Filed: 08/03/21 17:56> Mental Status: mental status grossly normal <DARLINE Chaney - Last Filed: 08/03/21 17:56> Affect: normal affect <DARLINE Chaney - Last Filed: 08/03/21 17:56> Attitude: cooperative <DARLINE Chaney - Last Filed: 08/03/21 17:56> Thought process: Normal thought process present <DARLINE Chaney - Last Filed: 08/03/21 17:56> Thought content: Normal thought content present <DARLINE Chaney - Last Filed: 08/03/21 17:56> Insight: Good insight present (Psych) <DARLINE Chaney - Last Filed: 08/03/21 17:56> Course Reevaluation(s) Reevaluation #1: Department is still having significant difficulty getting IV access and labs drawn on this patient. <DARLINE Chaney - Last Filed: 08/03/21 17:56> Time: 17:48 <DARLINE Chaney - Last Filed: 08/03/21 17:56> Procedures Central Line Placement Right Femoral: Time Out Performed: Yes <Diaz Esteves MD - Last Filed: 08/03/21 22:58> Patient Placed on Monitor/Pulse Ox: Yes <Diaz Esteves MD - Last Filed: 08/03/21 22:58> MD Prep: mask, gown and gloves <Diaz Esteves MD - Last Filed: 08/03/21 22:58> Central Line Prep: Chlorhexidine scrub <Diaz Esteves MD - Last Filed: 08/03/21 22:58> Local Anesthetic: lidocaine 2% <Diaz Esteves MD - Last Filed: 08/03/21 22:58> Amount of anesthesia used (mL): 5 <Diaz Esteves MD - Last Filed: 08/03/21 22:58> Ultrasound Used for Placement: Yes <Diaz Esteves MD - Last Filed: 08/03/21 22:58> Central Line Lumen Inserted: triple <Diaz Esteves MD - Last Filed: 08/03/21 22:58> Post Procedure: sutured in place, good blood return, all ports aspirated, flushed, capped and sterile dressing applied <Diaz Esteves MD - Last Filed: 08/03/21 22:58> Patient Tolerated Procedure: well <Daiz Esteves MD - Last Filed: 08/03/21 22:58> Complications: none <Diaz Esteves MD - Last Filed: 08/03/21 22:58> Medical Decision Making [facility] Narrative Medical decision making narrative: Patient is a 65 year old male presenting to the emergency department today with a possible urinary tract infection. Patient's physical exam was unremarkable, including a normal neurological examination. Patient's blood work was still pending, secondary to a major delay from the patient's incredibly difficult venous access status. Patient's urine showed is pending. Patient's EKG was unremarkable. Patient's chest x-ray is still pending. Patient has a history of low magnesium, 2g of magnesium ordered. Patient signed out to Dr. Esteves, disposition pending results of all tests. <DARLINE Chaney - Last Filed: 08/03/21 17:56> Patient is a 65 year old male presenting to the emergency department today with a possible urinary tract infection. Patient's physical exam was unremarkable, including a normal neurological examination. Patient's blood work was still pending, secondary to a major delay from the patient's incredibly difficult venous access status. Patient's urine showed is pending. Patient's EKG was unremarkable. Patient's chest x-ray is still pending. Patient has a history of low magnesium, 2g of magnesium ordered. Patient signed out to Dr. Esteves, disposition pending results of all tests. 22;50 Patient's acute renal failure with creatinine of 12.5 with BUN of 51 potassium 5.7 sodium 134 bicarb of 17 patient received IV fluid and repeat potassium was 6.3 BUN 55 creatinine 12.41 patient will be getting 33 L of IV fluid calcium gluconate sodium bicarb plan to admit in ICU if lab not improved for dialysis . Case discussed with machine bender IV hydration recheck the labs if not improved for dialysis in the morning <Diaz Esteves MD - Last Filed: 08/03/21 22:58> Differential Diagnosis Differential Diagnosis: urinary tract infection, medical examination, dehydration <DARLINE Chaney - Last Filed: 08/03/21 17:56> Medical Records Medical records reviewed: Yes I reviewed the patient's medical records. <DARLINE Chaney - Last Filed: 08/03/21 17:56> Lab Data Lab results reviewed: Yes I reviewed the patient's lab results. <DARLINE Chaney - Last Filed: 08/03/21 17:56> Result diagrams: : 08/03/21 18:06 08/03/21 21:09 <DARLINE Chaney - Last Filed: 08/03/21 17:56> Labs: Lab Results 08/03/21 08/03/21 08/03/21 Range/Units 16:30 16:30 16:30 WBC (4.8-10.8) X10*3/uL RBC (4.60-5.80) X10*6/uL Hgb (14.0-18.0) g/dl Hct (42.0-52.0) % MCV (80.0-98.0) fL MCH (27.0-33.0) pg MCHC (31.0-36.0) g/dl RDW (11.0-16.0) % Plt Count (160-400) X10*3/uL MPV (9.4-12.4) fL Immature Gran % (Auto) (0.0-0.4) % Neut % (Auto) (45-73) % Lymph % (Auto) (20-40) % [place] % (Auto) (2-11) % Eos % (Auto) (0-4) % Baso % (Auto) (0-2) % Lymph # (Auto) (1.2-4.9) X10*3/uL [place] # (Auto) (0.1-1.2) X10*3/uL Eos # (Auto) (0.0-0.4) X10*3/uL Baso # (Auto) (0.0-0.2) X10*3/uL Abs Immat Gran (auto) (0.00-0.03) X10*3/uL Absolute Neuts (auto) (2.0-8.3) x10*3/uL Absolute Nucleated RBC (0.0-0.012) X10*3/uL Nucleated RBC % (auto) (0.0-0.2) /100WBC PT 14.8 H (9.9-13.0) SEC INR 1.3 H (0.9-1.1) APTT 36.0 (24.1-38.0) SEC VBG pH (7.32-7.43) VBG pCO2 mmHg VBG pO2 mmHg VBG HCO3 (22-26) mmol/L VBG O2 Saturation % VBG Base Excess mmol/L Sodium (135-145) mmol/L Potassium (3.3-5.1) mmol/L Chloride (96-108) mmol/L Carbon Dioxide (22-29) mmol/L Anion Gap (12-20) BUN (9-16) mg/dL Creatinine (0.5-1.4) mg/dL Estim Creat Clear Calc Estimated GFR POC Glucose (60-115) mg/dL Random Glucose (60-115) mg/dL Lactic Acid 1.8 (0.5-2.0) mmol/L Calcium (8.4-10.2) mg/dL Magnesium (1.6-2.6) mg/dL Total Bilirubin (0.0-1.0) mg/dL AST (5-37) U/L ALT (0-40) U/L Alkaline Phosphatase (39-117) U/L Ammonia (13-55) umol/L Total Creatine Kinase (38-174) U/L Troponin I High Sens 75.1 H D (<3.5-35.0) ng/L B-Natriuretic Peptide (<100) pg/mL Total Protein (6.5-8.0) g/dL Albumin (3.5-5.0) g/dL Urine Color Urine Appearance Urine pH (5.0-8.0) Ur Specific [place] (1.005-1.025) Urine Protein (NEG-TRACE) MG/DL Urine Glucose (UA) (NEG) MG/DL Urine Ketones (NEG) MG/DL Urine Blood (NEG) Urine Nitrite (NEG) Ur Leukocyte Esterase (NEG) COVID-19 (ELIER) (Negative) COVID-19 Clin Com 08/03/21 08/03/21 08/03/21 Range/Units 16:30 17:20 17:20 WBC (4.8-10.8) X10*3/uL RBC (4.60-5.80) X10*6/uL Hgb (14.0-18.0) g/dl Hct (42.0-52.0) % MCV (80.0-98.0) fL MCH (27.0-33.0) pg MCHC (31.0-36.0) g/dl RDW (11.0-16.0) % Plt Count (160-400) X10*3/uL MPV (9.4-12.4) fL Immature Gran % (Auto) (0.0-0.4) % Neut % (Auto) (45-73) % Lymph % (Auto) (20-40) % [place] % (Auto) (2-11) % Eos % (Auto) (0-4) % Baso % (Auto) (0-2) % Lymph # (Auto) (1.2-4.9) X10*3/uL [place] # (Auto) (0.1-1.2) X10*3/uL Eos # (Auto) (0.0-0.4) X10*3/uL Baso # (Auto) (0.0-0.2) X10*3/uL Abs Immat Gran (auto) (0.00-0.03) X10*3/uL Absolute Neuts (auto) (2.0-8.3) x10*3/uL Absolute Nucleated RBC (0.0-0.012) X10*3/uL Nucleated RBC % (auto) (0.0-0.2) /100WBC PT (9.9-13.0) SEC INR (0.9-1.1) APTT (24.1-38.0) SEC VBG pH (7.32-7.43) VBG pCO2 mmHg VBG pO2 mmHg VBG HCO3 (22-26) mmol/L VBG O2 Saturation % VBG Base Excess mmol/L Sodium (135-145) mmol/L Potassium (3.3-5.1) mmol/L Chloride (96-108) mmol/L Carbon Dioxide (22-29) mmol/L Anion Gap (12-20) BUN (9-16) mg/dL Creatinine (0.5-1.4) mg/dL Estim Creat Clear Calc Estimated GFR POC Glucose (60-115) mg/dL Random Glucose (60-115) mg/dL Lactic Acid (0.5-2.0) mmol/L Calcium (8.4-10.2) mg/dL Magnesium (1.6-2.6) mg/dL Total Bilirubin (0.0-1.0) mg/dL AST (5-37) U/L ALT (0-40) U/L Alkaline Phosphatase (39-117) U/L Ammonia (13-55) umol/L Total Creatine Kinase (38-174) U/L Troponin I High Sens (<3.5-35.0) ng/L B-Natriuretic Peptide 51 (<100) pg/mL Total Protein (6.5-8.0) g/dL Albumin (3.5-5.0) g/dL Urine Color DK YELLOW Urine Appearance CLEAR Urine pH 5.0 (5.0-8.0) Ur Specific [place] >= 1.030 H (1.005-1.025) Urine Protein TRACE (NEG-TRACE) MG/DL Urine Glucose (UA) NEG (NEG) MG/DL Urine Ketones 5 (NEG) MG/DL Urine Blood NEG (NEG) Urine Nitrite NEG (NEG) Ur Leukocyte Esterase NEG (NEG) COVID-19 (ELIER) Negative (Negative) COVID-19 Clin Com See Note 08/03/21 08/03/21 08/03/21 Range/Units 18:06 18:06 18:06 WBC 15.1 H (4.8-10.8) X10*3/uL RBC 3.69 L (4.60-5.80) X10*6/uL Hgb 11.2 L (14.0-18.0) g/dl Hct 35.4 L (42.0-52.0) % MCV 95.9 (80.0-98.0) fL MCH 30.4 (27.0-33.0) pg MCHC 31.6 (31.0-36.0) g/dl RDW 13.3 (11.0-16.0) % Plt Count 401 H D (160-400) X10*3/uL MPV 9.6 (9.4-12.4) fL Immature Gran % (Auto) 0.5 H (0.0-0.4) % Neut % (Auto) 75.9 H (45-73) % Lymph % (Auto) 12.6 L (20-40) % [place] % (Auto) 9.2 (2-11) % Eos % (Auto) 1.3 (0-4) % Baso % (Auto) 0.5 (0-2) % Lymph # (Auto) 1.9 (1.2-4.9) X10*3/uL [place] # (Auto) 1.4 H (0.1-1.2) X10*3/uL Eos # (Auto) 0.2 (0.0-0.4) X10*3/uL Baso # (Auto) 0.1 (0.0-0.2) X10*3/uL Abs Immat Gran (auto) 0.08 H (0.00-0.03) X10*3/uL Absolute Neuts (auto) 11.4 H (2.0-8.3) x10*3/uL Absolute Nucleated RBC 0.000 (0.0-0.012) X10*3/uL Nucleated RBC % (auto) 0.0 (0.0-0.2) /100WBC PT (9.9-13.0) SEC INR (0.9-1.1) APTT (24.1-38.0) SEC VBG pH (7.32-7.43) VBG pCO2 mmHg VBG pO2 mmHg VBG HCO3 (22-26) mmol/L VBG O2 Saturation % VBG Base Excess mmol/L Sodium 134 L (135-145) mmol/L Potassium 5.7 H (3.3-5.1) mmol/L Chloride 99 (96-108) mmol/L Carbon Dioxide 17 L (22-29) mmol/L Anion Gap 24 H (12-20) BUN 51 H D (9-16) mg/dL Creatinine 12.50 H* (0.5-1.4) mg/dL Estim Creat Clear Calc 6.7 Estimated GFR 4 POC Glucose (60-115) mg/dL Random Glucose 116 H (60-115) mg/dL Lactic Acid (0.5-2.0) mmol/L Calcium 8.5 (8.4-10.2) mg/dL Magnesium 11.2 H* (1.6-2.6) mg/dL Total Bilirubin 0.4 (0.0-1.0) mg/dL AST 13 (5-37) U/L ALT 6 (0-40) U/L Alkaline Phosphatase 75 (39-117) U/L Ammonia 21 (13-55) umol/L Total Creatine Kinase 44 D (38-174) U/L Troponin I High Sens (<3.5-35.0) ng/L B-Natriuretic Peptide (<100) pg/mL Total Protein 6.8 D (6.5-8.0) g/dL Albumin 3.3 L (3.5-5.0) g/dL Urine Color Urine Appearance Urine pH (5.0-8.0) Ur Specific [place] (1.005-1.025) Urine Protein (NEG-TRACE) MG/DL Urine Glucose (UA) (NEG) MG/DL Urine Ketones (NEG) MG/DL Urine Blood (NEG) Urine Nitrite (NEG) Ur Leukocyte Esterase (NEG) COVID-19 (ELIER) (Negative) COVID-19 Clin Com 08/03/21 08/03/21 08/03/21 Range/Units 18:06 18:08 19:41 WBC (4.8-10.8) X10*3/uL RBC (4.60-5.80) X10*6/uL Hgb (14.0-18.0) g/dl Hct (42.0-52.0) % MCV (80.0-98.0) fL MCH (27.0-33.0) pg MCHC (31.0-36.0) g/dl RDW (11.0-16.0) % Plt Count (160-400) X10*3/uL MPV (9.4-12.4) fL Immature Gran % (Auto) (0.0-0.4) % Neut % (Auto) (45-73) % Lymph % (Auto) (20-40) % [place] % (Auto) (2-11) % Eos % (Auto) (0-4) % Baso % (Auto) (0-2) % Lymph # (Auto) (1.2-4.9) X10*3/uL [place] # (Auto) (0.1-1.2) X10*3/uL Eos # (Auto) (0.0-0.4) X10*3/uL Baso # (Auto) (0.0-0.2) X10*3/uL Abs Immat Gran (auto) (0.00-0.03) X10*3/uL Absolute Neuts (auto) (2.0-8.3) x10*3/uL Absolute Nucleated RBC (0.0-0.012) X10*3/uL Nucleated RBC % (auto) (0.0-0.2) /100WBC PT (9.9-13.0) SEC INR (0.9-1.1) APTT (24.1-38.0) SEC VBG pH 7.33 (7.32-7.43) VBG pCO2 36 mmHg VBG pO2 70 mmHg VBG HCO3 19 L (22-26) mmol/L VBG O2 Saturation 90.0 % VBG Base Excess -5.5 mmol/L Sodium (135-145) mmol/L Potassium (3.3-5.1) mmol/L Chloride (96-108) mmol/L Carbon Dioxide (22-29) mmol/L Anion Gap (12-20) BUN (9-16) mg/dL Creatinine (0.5-1.4) mg/dL Estim Creat Clear Calc Estimated GFR POC Glucose 107 (60-115) mg/dL Random Glucose (60-115) mg/dL Lactic Acid (0.5-2.0) mmol/L Calcium (8.4-10.2) mg/dL Magnesium (1.6-2.6) mg/dL Total Bilirubin (0.0-1.0) mg/dL AST (5-37) U/L ALT (0-40) U/L Alkaline Phosphatase (39-117) U/L Ammonia (13-55) umol/L Total Creatine Kinase (38-174) U/L Troponin I High Sens 70.3 H (<3.5-35.0) ng/L B-Natriuretic Peptide (<100) pg/mL Total Protein (6.5-8.0) g/dL Albumin (3.5-5.0) g/dL Urine Color Urine Appearance Urine pH (5.0-8.0) Ur Specific [place] (1.005-1.025) Urine Protein (NEG-TRACE) MG/DL Urine Glucose (UA) (NEG) MG/DL Urine Ketones (NEG) MG/DL Urine Blood (NEG) Urine Nitrite (NEG) Ur Leukocyte Esterase (NEG) COVID-19 (ELIER) (Negative) COVID-19 Clin Com 08/03/21 Range/Units 21:09 WBC (4.8-10.8) X10*3/uL RBC (4.60-5.80) X10*6/uL Hgb (14.0-18.0) g/dl Hct (42.0-52.0) % MCV (80.0-98.0) fL MCH (27.0-33.0) pg MCHC (31.0-36.0) g/dl RDW (11.0-16.0) % Plt Count (160-400) X10*3/uL MPV (9.4-12.4) fL Immature Gran % (Auto) (0.0-0.4) % Neut % (Auto) (45-73) % Lymph % (Auto) (20-40) % [place] % (Auto) (2-11) % Eos % (Auto) (0-4) % Baso % (Auto) (0-2) % Lymph # (Auto) (1.2-4.9) X10*3/uL [place] # (Auto) (0.1-1.2) X10*3/uL Eos # (Auto) (0.0-0.4) X10*3/uL Baso # (Auto) (0.0-0.2) X10*3/uL Abs Immat Gran (auto) (0.00-0.03) X10*3/uL Absolute Neuts (auto) (2.0-8.3) x10*3/uL Absolute Nucleated RBC (0.0-0.012) X10*3/uL Nucleated RBC % (auto) (0.0-0.2) /100WBC PT (9.9-13.0) SEC INR (0.9-1.1) APTT (24.1-38.0) SEC VBG pH (7.32-7.43) VBG pCO2 mmHg VBG pO2 mmHg VBG HCO3 (22-26) mmol/L VBG O2 Saturation % VBG Base Excess mmol/L Sodium 139 (135-145) mmol/L Potassium 6.3 H* (3.3-5.1) mmol/L Chloride 103 (96-108) mmol/L Carbon Dioxide 18 L (22-29) mmol/L Anion Gap 24 H (12-20) BUN 55 H (9-16) mg/dL Creatinine 12.41 H* (0.5-1.4) mg/dL Estim Creat Clear Calc 6.7 Estimated GFR 4 POC Glucose (60-115) mg/dL Random Glucose 130 H (60-115) mg/dL Lactic Acid (0.5-2.0) mmol/L Calcium 7.8 L D (8.4-10.2) mg/dL Magnesium (1.6-2.6) mg/dL Total Bilirubin (0.0-1.0) mg/dL AST (5-37) U/L ALT (0-40) U/L Alkaline Phosphatase (39-117) U/L Ammonia (13-55) umol/L Total Creatine Kinase (38-174) U/L Troponin I High Sens (<3.5-35.0) ng/L B-Natriuretic Peptide (<100) pg/mL Total Protein (6.5-8.0) g/dL Albumin (3.5-5.0) g/dL Urine Color Urine Appearance Urine pH (5.0-8.0) Ur Specific [place] (1.005-1.025) Urine Protein (NEG-TRACE) MG/DL Urine Glucose (UA) (NEG) MG/DL Urine Ketones (NEG) MG/DL Urine Blood (NEG) Urine Nitrite (NEG) Ur Leukocyte Esterase (NEG) COVID-19 (ELIER) (Negative) COVID-19 Clin Com <DARLINE Chaney - Last Filed: 08/03/21 17:56> Lab Results 08/03/21 08/03/21 08/03/21 Range/Units 16:30 16:30 16:30 WBC (4.8-10.8) X10*3/uL RBC (4.60-5.80) X10*6/uL Hgb (14.0-18.0) g/dl Hct (42.0-52.0) % MCV (80.0-98.0) fL MCH (27.0-33.0) pg MCHC (31.0-36.0) g/dl RDW (11.0-16.0) % Plt Count (160-400) X10*3/uL MPV (9.4-12.4) fL Immature Gran % (Auto) (0.0-0.4) % Neut % (Auto) (45-73) % Lymph % (Auto) (20-40) % [place] % (Auto) (2-11) % Eos % (Auto) (0-4) % Baso % (Auto) (0-2) % Lymph # (Auto) (1.2-4.9) X10*3/uL [place] # (Auto) (0.1-1.2) X10*3/uL Eos # (Auto) (0.0-0.4) X10*3/uL Baso # (Auto) (0.0-0.2) X10*3/uL Abs Immat Gran (auto) (0.00-0.03) X10*3/uL Absolute Neuts (auto) (2.0-8.3) x10*3/uL Absolute Nucleated RBC (0.0-0.012) X10*3/uL Nucleated RBC % (auto) (0.0-0.2) /100WBC PT 14.8 H (9.9-13.0) SEC INR 1.3 H (0.9-1.1) APTT 36.0 (24.1-38.0) SEC VBG pH (7.32-7.43) VBG pCO2 mmHg VBG pO2 mmHg VBG HCO3 (22-26) mmol/L VBG O2 Saturation % VBG Base Excess mmol/L Sodium (135-145) mmol/L Potassium (3.3-5.1) mmol/L Chloride (96-108) mmol/L Carbon Dioxide (22-29) mmol/L Anion Gap (12-20) BUN (9-16) mg/dL Creatinine (0.5-1.4) mg/dL Estim Creat Clear Calc Estimated GFR POC Glucose (60-115) mg/dL Random Glucose (60-115) mg/dL Lactic Acid 1.8 (0.5-2.0) mmol/L Calcium (8.4-10.2) mg/dL Magnesium (1.6-2.6) mg/dL Total Bilirubin (0.0-1.0) mg/dL AST (5-37) U/L ALT (0-40) U/L Alkaline Phosphatase (39-117) U/L Ammonia (13-55) umol/L Total Creatine Kinase (38-174) U/L Troponin I High Sens 75.1 H D (<3.5-35.0) ng/L B-Natriuretic Peptide (<100) pg/mL Total Protein (6.5-8.0) g/dL Albumin (3.5-5.0) g/dL Urine Color Urine Appearance Urine pH (5.0-8.0) Ur Specific [place] (1.005-1.025) Urine Protein (NEG-TRACE) MG/DL Urine Glucose (UA) (NEG) MG/DL Urine Ketones (NEG) MG/DL Urine Blood (NEG) Urine Nitrite (NEG) Ur Leukocyte Esterase (NEG) COVID-19 (ELIER) (Negative) COVID-19 Clin Com 08/03/21 08/03/21 08/03/21 Range/Units 16:30 17:20 17:20 WBC (4.8-10.8) X10*3/uL RBC (4.60-5.80) X10*6/uL Hgb (14.0-18.0) g/dl Hct (42.0-52.0) % MCV (80.0-98.0) fL MCH (27.0-33.0) pg MCHC (31.0-36.0) g/dl RDW (11.0-16.0) % Plt Count (160-400) X10*3/uL MPV (9.4-12.4) fL Immature Gran % (Auto) (0.0-0.4) % Neut % (Auto) (45-73) % Lymph % (Auto) (20-40) % [place] % (Auto) (2-11) % Eos % (Auto) (0-4) % Baso % (Auto) (0-2) % Lymph # (Auto) (1.2-4.9) X10*3/uL [place] # (Auto) (0.1-1.2) X10*3/uL Eos # (Auto) (0.0-0.4) X10*3/uL Baso # (Auto) (0.0-0.2) X10*3/uL Abs Immat Gran (auto) (0.00-0.03) X10*3/uL Absolute Neuts (auto) (2.0-8.3) x10*3/uL Absolute Nucleated RBC (0.0-0.012) X10*3/uL Nucleated RBC % (auto) (0.0-0.2) /100WBC PT (9.9-13.0) SEC INR (0.9-1.1) APTT (24.1-38.0) SEC VBG pH (7.32-7.43) VBG pCO2 mmHg VBG pO2 mmHg VBG HCO3 (22-26) mmol/L VBG O2 Saturation % VBG Base Excess mmol/L Sodium (135-145) mmol/L Potassium (3.3-5.1) mmol/L Chloride (96-108) mmol/L Carbon Dioxide (22-29) mmol/L Anion Gap (12-20) BUN (9-16) mg/dL Creatinine (0.5-1.4) mg/dL Estim Creat Clear Calc Estimated GFR POC Glucose (60-115) mg/dL Random Glucose (60-115) mg/dL Lactic Acid (0.5-2.0) mmol/L Calcium (8.4-10.2) mg/dL Magnesium (1.6-2.6) mg/dL Total Bilirubin (0.0-1.0) mg/dL AST (5-37) U/L ALT (0-40) U/L Alkaline Phosphatase (39-117) U/L Ammonia (13-55) umol/L Total Creatine Kinase (38-174) U/L Troponin I High Sens (<3.5-35.0) ng/L B-Natriuretic Peptide 51 (<100) pg/mL Total Protein (6.5-8.0) g/dL Albumin (3.5-5.0) g/dL Urine Color DK YELLOW Urine Appearance CLEAR Urine pH 5.0 (5.0-8.0) Ur Specific [place] >= 1.030 H (1.005-1.025) Urine Protein TRACE (NEG-TRACE) MG/DL Urine Glucose (UA) NEG (NEG) MG/DL Urine Ketones 5 (NEG) MG/DL Urine Blood NEG (NEG) Urine Nitrite NEG (NEG) Ur Leukocyte Esterase NEG (NEG) COVID-19 (ELIER) Negative (Negative) COVID-19 Clin Com See Note 08/03/21 08/03/21 08/03/21 Range/Units 18:06 18:06 18:06 WBC 15.1 H (4.8-10.8) X10*3/uL RBC 3.69 L (4.60-5.80) X10*6/uL Hgb 11.2 L (14.0-18.0) g/dl Hct 35.4 L (42.0-52.0) % MCV 95.9 (80.0-98.0) fL MCH 30.4 (27.0-33.0) pg MCHC 31.6 (31.0-36.0) g/dl RDW 13.3 (11.0-16.0) % Plt Count 401 H D (160-400) X10*3/uL MPV 9.6 (9.4-12.4) fL Immature Gran % (Auto) 0.5 H (0.0-0.4) % Neut % (Auto) 75.9 H (45-73) % Lymph % (Auto) 12.6 L (20-40) % [place] % (Auto) 9.2 (2-11) % Eos % (Auto) 1.3 (0-4) % Baso % (Auto) 0.5 (0-2) % Lymph # (Auto) 1.9 (1.2-4.9) X10*3/uL [place] # (Auto) 1.4 H (0.1-1.2) X10*3/uL Eos # (Auto) 0.2 (0.0-0.4) X10*3/uL Baso # (Auto) 0.1 (0.0-0.2) X10*3/uL Abs Immat Gran (auto) 0.08 H (0.00-0.03) X10*3/uL Absolute Neuts (auto) 11.4 H (2.0-8.3) x10*3/uL Absolute Nucleated RBC 0.000 (0.0-0.012) X10*3/uL Nucleated RBC % (auto) 0.0 (0.0-0.2) /100WBC PT (9.9-13.0) SEC INR (0.9-1.1) APTT (24.1-38.0) SEC VBG pH (7.32-7.43) VBG pCO2 mmHg VBG pO2 mmHg VBG HCO3 (22-26) mmol/L VBG O2 Saturation % VBG Base Excess mmol/L Sodium 134 L (135-145) mmol/L Potassium 5.7 H (3.3-5.1) mmol/L Chloride 99 (96-108) mmol/L Carbon Dioxide 17 L (22-29) mmol/L Anion Gap 24 H (12-20) BUN 51 H D (9-16) mg/dL Creatinine 12.50 H* (0.5-1.4) mg/dL Estim Creat Clear Calc 6.7 Estimated GFR 4 POC Glucose (60-115) mg/dL Random Glucose 116 H (60-115) mg/dL Lactic Acid (0.5-2.0) mmol/L Calcium 8.5 (8.4-10.2) mg/dL Magnesium 11.2 H* (1.6-2.6) mg/dL Total Bilirubin 0.4 (0.0-1.0) mg/dL AST 13 (5-37) U/L ALT 6 (0-40) U/L Alkaline Phosphatase 75 (39-117) U/L Ammonia 21 (13-55) umol/L Total Creatine Kinase 44 D (38-174) U/L Troponin I High Sens (<3.5-35.0) ng/L B-Natriuretic Peptide (<100) pg/mL Total Protein 6.8 D (6.5-8.0) g/dL Albumin 3.3 L (3.5-5.0) g/dL Urine Color Urine Appearance Urine pH (5.0-8.0) Ur Specific [place] (1.005-1.025) Urine Protein (NEG-TRACE) MG/DL Urine Glucose (UA) (NEG) MG/DL Urine Ketones (NEG) MG/DL Urine Blood (NEG) Urine Nitrite (NEG) Ur Leukocyte Esterase (NEG) COVID-19 (ELIER) (Negative) COVID-19 Clin Com 08/03/21 08/03/21 08/03/21 Range/Units 18:06 18:08 19:41 WBC (4.8-10.8) X10*3/uL RBC (4.60-5.80) X10*6/uL Hgb (14.0-18.0) g/dl Hct (42.0-52.0) % MCV (80.0-98.0) fL MCH (27.0-33.0) pg MCHC (31.0-36.0) g/dl RDW (11.0-16.0) % Plt Count (160-400) X10*3/uL MPV (9.4-12.4) fL Immature Gran % (Auto) (0.0-0.4) % Neut % (Auto) (45-73) % Lymph % (Auto) (20-40) % [place] % (Auto) (2-11) % Eos % (Auto) (0-4) % Baso % (Auto) (0-2) % Lymph # (Auto) (1.2-4.9) X10*3/uL [place] # (Auto) (0.1-1.2) X10*3/uL Eos # (Auto) (0.0-0.4) X10*3/uL Baso # (Auto) (0.0-0.2) X10*3/uL Abs Immat Gran (auto) (0.00-0.03) X10*3/uL Absolute Neuts (auto) (2.0-8.3) x10*3/uL Absolute Nucleated RBC (0.0-0.012) X10*3/uL Nucleated RBC % (auto) (0.0-0.2) /100WBC PT (9.9-13.0) SEC INR (0.9-1.1) APTT (24.1-38.0) SEC VBG pH 7.33 (7.32-7.43) VBG pCO2 36 mmHg VBG pO2 70 mmHg VBG HCO3 19 L (22-26) mmol/L VBG O2 Saturation 90.0 % VBG Base Excess -5.5 mmol/L Sodium (135-145) mmol/L Potassium (3.3-5.1) mmol/L Chloride (96-108) mmol/L Carbon Dioxide (22-29) mmol/L Anion Gap (12-20) BUN (9-16) mg/dL Creatinine (0.5-1.4) mg/dL Estim Creat Clear Calc Estimated GFR POC Glucose 107 (60-115) mg/dL Random Glucose (60-115) mg/dL Lactic Acid (0.5-2.0) mmol/L Calcium (8.4-10.2) mg/dL Magnesium (1.6-2.6) mg/dL Total Bilirubin (0.0-1.0) mg/dL AST (5-37) U/L ALT (0-40) U/L Alkaline Phosphatase (39-117) U/L Ammonia (13-55) umol/L Total Creatine Kinase (38-174) U/L Troponin I High Sens 70.3 H (<3.5-35.0) ng/L B-Natriuretic Peptide (<100) pg/mL Total Protein (6.5-8.0) g/dL Albumin (3.5-5.0) g/dL Urine Color Urine Appearance Urine pH (5.0-8.0) Ur Specific [place] (1.005-1.025) Urine Protein (NEG-TRACE) MG/DL Urine Glucose (UA) (NEG) MG/DL Urine Ketones (NEG) MG/DL Urine Blood (NEG) Urine Nitrite (NEG) Ur Leukocyte Esterase (NEG) COVID-19 (ELIER) (Negative) COVID-19 Clin Com 08/03/21 Range/Units 21:09 WBC (4.8-10.8) X10*3/uL RBC (4.60-5.80) X10*6/uL Hgb (14.0-18.0) g/dl Hct (42.0-52.0) % MCV (80.0-98.0) fL MCH (27.0-33.0) pg MCHC (31.0-36.0) g/dl RDW (11.0-16.0) % Plt Count (160-400) X10*3/uL MPV (9.4-12.4) fL Immature Gran % (Auto) (0.0-0.4) % Neut % (Auto) (45-73) % Lymph % (Auto) (20-40) % [place] % (Auto) (2-11) % Eos % (Auto) (0-4) % Baso % (Auto) (0-2) % Lymph # (Auto) (1.2-4.9) X10*3/uL [place] # (Auto) (0.1-1.2) X10*3/uL Eos # (Auto) (0.0-0.4) X10*3/uL Baso # (Auto) (0.0-0.2) X10*3/uL Abs Immat Gran (auto) (0.00-0.03) X10*3/uL Absolute Neuts (auto) (2.0-8.3) x10*3/uL Absolute Nucleated RBC (0.0-0.012) X10*3/uL Nucleated RBC % (auto) (0.0-0.2) /100WBC PT (9.9-13.0) SEC INR (0.9-1.1) APTT (24.1-38.0) SEC VBG pH (7.32-7.43) VBG pCO2 mmHg VBG pO2 mmHg VBG HCO3 (22-26) mmol/L VBG O2 Saturation % VBG Base Excess mmol/L Sodium 139 (135-145) mmol/L Potassium 6.3 H* (3.3-5.1) mmol/L Chloride 103 (96-108) mmol/L Carbon Dioxide 18 L (22-29) mmol/L Anion Gap 24 H (12-20) BUN 55 H (9-16) mg/dL Creatinine 12.41 H* (0.5-1.4) mg/dL Estim Creat Clear Calc 6.7 Estimated GFR 4 POC Glucose (60-115) mg/dL Random Glucose 130 H (60-115) mg/dL Lactic Acid (0.5-2.0) mmol/L Calcium 7.8 L D (8.4-10.2) mg/dL Magnesium (1.6-2.6) mg/dL Total Bilirubin (0.0-1.0) mg/dL AST (5-37) U/L ALT (0-40) U/L Alkaline Phosphatase (39-117) U/L Ammonia (13-55) umol/L Total Creatine Kinase (38-174) U/L Troponin I High Sens (<3.5-35.0) ng/L B-Natriuretic Peptide (<100) pg/mL Total Protein (6.5-8.0) g/dL Albumin (3.5-5.0) g/dL Urine Color Urine Appearance Urine pH (5.0-8.0) Ur Specific [place] (1.005-1.025) Urine Protein (NEG-TRACE) MG/DL Urine Glucose (UA) (NEG) MG/DL Urine Ketones (NEG) MG/DL Urine Blood (NEG) Urine Nitrite (NEG) Ur Leukocyte Esterase (NEG) COVID-19 (ELIER) (Negative) COVID-19 Clin Com <Diaz Esteves MD - Last Filed: 08/03/21 22:58> ECG Data Attestation: I personally reviewed and interpreted this ECG as follows: <DARLINE Chaney - Last Filed: 08/03/21 17:56> Prior ECG tracings: available for review <DARLINE Chaney - Last Filed: 08/03/21 17:56> Interpretation: Normal sinus rhythm. <DARLINE Chaney - Last Filed: 08/03/21 17:56> heart rate 104 beats per minute sinus tachycardia left anterior fascicular block no acute ST-T changes no acute ischemia <Diaz Esteves MD - Last Filed: 08/03/21 22:58> Critical Care Time Critical Care Time Critical Care Time: Yes <Diaz Esteves MD - Last Filed: 08/03/21 22:58> Total Critical Care Time: 65 <Diaz Esteves MD - Last Filed: 08/03/21 22:58> Attestation: I spent 65 minutes of critical care, with interventions, assessments, speaking to patient, consultants, <Diaz Esteves MD - Last Filed: 08/03/21 22:58> Discharge Plan Discharge Clinical Impression: Altered mental state <DARLINE Chaney - Last Filed: 08/03/21 17:56> Patient Disposition: Still a Patient <DARLINE Chaney - Last Filed: 08/03/21 17:56> Prescriptions: No Action thiamine HCl (vitamin B1) 100 mg tablet 1 tab PO BEDTIME 0RF (DME) FreeStyle Lite Strips Strip MISCELLANEOUS QID 0RF simvastatin 20 mg tablet 1 tab PO BEDTIME 0RF lisinopril 10 mg tablet 1 tab PO DAILY 0RF folic acid 1 mg tablet 1 tab PO DAILY@1700 0RF albuterol sulfate 90 mcg/actuation HFA aerosol inhaler 2 puff inhalation Q6H PRN (Reason: Wheezing) 0RF buspirone 5 mg tablet 5 mg PO BID 0RF aspirin 81 mg tablet,delayed release (DR/EC) 1 tab PO BEDTIME 0RF tamsulosin 0.4 mg capsule 1 cap PO DAILY@1700 0RF ramelteon 8 mg tablet 1 tab PO BEDTIME 0RF omeprazole 20 mg capsule,delayed release(DR/EC) 1 cap PO BID@0630,1630 0RF hydroxyzine HCl 50 mg Tablet 50 mg PO Q8H PRN (Reason: Anxiety) Qty: 20 0RF Lantus U-100 Insulin 100 unit/mL solution 45 unit subcut BEDTIME 0RF fluticasone propion-salmeterol [Wixela Inhub] 250-50 mcg/dose Blister With Device 1 inh INHALATION BID 0RF loperamide 2 mg Capsule 2 mg PO Q6H PRN (Reason: Diarrhea) 0RF Label Comments: max 8 mg in 24 hrs ondansetron HCl 4 mg Tablet 4 mg PO Q4H PRN (Reason: Nausea) 0RF bisacodyl 10 mg Suppository 10 mg OH DAILY PRN (Reason: Constipation) 0RF oxycodone 5 mg Tablet 5 mg PO Q8H PRN (Reason: Pain) 0RF insulin aspart U-100 [Novolog Flexpen U-100 Insulin] 100 unit/mL (3 mL) Insulin Pen 1 sliding scale dose SUBCUT TIDAC 0RF Protocol: Insulin Correction Scale Less than or equal to 110 ---- Give (units): 0 111 to 150 Give (units): 0 151 to 200 Give (units): 6 201 to 250 Give (units): 8 251 to 300 Give (units): 10 301 to 350 Give (units): 12 Greater than 350 Give (units): 14 Call MD if Blood Glucose > : 350 acetaminophen [Tylenol] 325 mg Capsule 650 mg PO TID 0RF amoxicillin-pot clavulanate 875-125 mg Tablet 1 tab PO Q12H Qty: 12 0RF Rx Instructions: x 6 days starting 07/29/21 gabapentin 600 mg Tablet 600 mg PO TID 0RF lidocaine [Aspercreme (lidocaine HCl)] 4 % Adhesive Patch,Medicated 1 patch TOPICAL DAILY 0RF Label Comments: x14 days starting 08/03/21 guaifenesin 100 mg/5 mL Liquid 200 mg PO Q4H PRN (Reason: Cough) 0RF erythromycin 5 mg/gram (0.5 %) Ointment 0.5 inch OPHTHALMIC (EYE) TID 0RF Label Comments: x7 days starting 08/03/21 <DARLINE Chaney - Last Filed: 08/03/21 17:56> Print Language: Romanian <DARLINE Chaney - Last Filed: 08/03/21 17:56>
--- NOTE | 2021-08-03 14:57 | ECG_ITS ---
Test Reason : sob Blood Pressure : / mmHG Vent. Rate : 104 BPM Atrial Rate : 097 BPM P-R Int : 164 ms QRS Dur : 080 ms QT Int : 328 ms P-R-T Axes : 079 -46 094 degrees QTc Int : 431 ms Artifact in tracing Likely sinus rhythm Left anterior fascicular block Nonspecific ST and T wave abnormality Abnormal ECG When compared with ECG of 21-JUL-2021 00:32, No significant changes seen Referred By: Sarah Perez Electronically Signed By:BING PHILLIPS
[2021-08-03 15:41] VITALS: BP 94/68; PULSE 98; RESP 20; O2SAT 92; BMI 29.4
[2021-08-03] MEDS: fentaNYL citrate/PF 100 MCG/2 ML VIAL 50 MCG IVPUSH (16:08)
[2021-08-03 16:46] LABS: INTERNATIONAL NORM RATIO 1.3 (0.9-1.1); Prothrombin Time 14.8 SEC (9.9-13.0)
[2021-08-03 16:54] LABS: Lactic Acid 1.8 mmol/L (0.5-2.0)
[2021-08-03 17:03] LABS: B Type Natriuretic Peptide 51 pg/mL (<100); Troponin-I High Sensitivity 75.1 ng/L (<3.5-35.0)
[2021-08-03 17:22] VITALS: BP 144/103; PULSE 93; RESP 16; TEMP 38; O2SAT 94
[2021-08-03 17:58] LABS: Appearance Urine CLEAR; Color Urine DK YELLOW; Glucose Urine UA NEG (NEG); Leukocyte Esterase Urine NEG (NEG); Nitrite Urine NEG (NEG); Specific Gravity - Urine >= 1.030 (1.005-1.025); Urine Blood NEG (NEG); Urine Ketones 5 MG/DL (NEG); Urine Protein TRACE MG/DL (NEG-TRACE)
[2021-08-03 18:00] VITALS: BP 90/40; PULSE 99; RESP 17; TEMP 37.4; O2SAT 99
[2021-08-03 18:11] LABS: MANUAL DIFF FLAG NO
[2021-08-03 18:12] LABS: COVID-19 Test Negative (Negative)
[2021-08-03 18:12] LABS: Basophils Absolute Auto 0.1 X10*3/uL (0.0-0.2); Basophils Percent Auto 0.5 % (0-2); Eosinophils Absolute Auto 0.2 X10*3/uL (0.0-0.4); Eosinophils Percent Auto 1.3 % (0-4); Hematocrit 35.4 % (42.0-52.0); Hemoglobin 11.2 g/dl (14.0-18.0); Imm Gran Abs Auto 0.08 X10*3/uL (0.00-0.03); Imm Gran Pct Auto 0.5 % (0.0-0.4); Lymphocytes Absolute Auto 1.9 X10*3/uL (1.2-4.9); Lymphocytes Percent Auto 12.6 % (20-40); Mean Corpuscular HGB Conc 31.6 g/dl (31.0-36.0); Mean Corpuscular Hemoglobin 30.4 pg (27.0-33.0); Mean Corpuscular Volume 95.9 fL (80.0-98.0); Mean Platelet Volume 9.6 fL (9.4-12.4); Monocytes Absolute Auto 1.4 X10*3/uL (0.1-1.2); Monocytes Percent Auto 9.2 % (2-11); Neutrophils Absolute Auto 11.4 x10*3/uL (2.0-8.3); Neutrophils Percent Auto 75.9 % (45-73); Platelet Count 401 X10*3/uL (160-400); Red Blood Count 3.69 X10*6/uL (4.60-5.80); Red Cell Distribution Width 13.3 % (11.0-16.0); White Blood Count 15.1 X10*3/uL (4.8-10.8)
[2021-08-03 18:15] LABS: Venous Blood Gas Refer to POC result
[2021-08-03 18:16] LABS: VBG Base Excess -5.5 mmol/L; VBG HCO3 19 mmol/L (22-26); VBG pCO2 36 mmHg; VBG pH 7.33 (7.32-7.43); VBG pO2 70 mmHg
[2021-08-03 18:22] LABS: Ammonia 21 umol/L (13-55)
[2021-08-03] MEDS: Magnesium Sulfate/H2O 2 GM/50 ML PIGGYBACK IV (18:31)
[2021-08-03 18:33] LABS: Troponin-I High Sensitivity 70.3 ng/L (<3.5-35.0)
--- NOTE | 2021-08-03 18:33 | PC.NURSE ---
Pt comes in via EMS from [facility]. Pt agitated, lungs diminished, skin dry, NSR on monitor, no temp, pt states pain 10/10 to neck, L side of body from previous fall. Straight cath's for clear yellow urine, diaper from facility removed, excoriation to groin area which pt describes as burning. Pericare and bed bath performed. Call watters within reach, multipe IV attempts, pt agitated and uncooperative. BP 90/40, call watters within reach, will continue to monitor.
[2021-08-03 19:12] VITALS: BP 107/92; PULSE 105
[2021-08-03 19:19] LABS: Alanine Aminotransferase 6 U/L (0-40); Albumin Level 3.3 g/dL (3.5-5.0); Alkaline Phosphatase 75 U/L (39-117); Anion Gap 24 (12-20); Aspartate Amino Transferase 13 U/L (5-37); Bilirubin Total 0.4 mg/dL (0.0-1.0); Blood Urea Nitrogen 51 mg/dL (9-16); Calcium 8.5 mg/dL (8.4-10.2); Carbon Dioxide 17 mmol/L (22-29); Chloride 99 mmol/L (96-108); Creatinine Clr Calc Pharmacy 6.7; Estimated Glomerular Filt Rate 4; Glucose Random 116 mg/dL (60-115); Magnesium 11.2 mg/dL (1.6-2.6); Potassium 5.7 mmol/L (3.3-5.1); Sodium 134 mmol/L (135-145); Total Protein 6.8 g/dL (6.5-8.0)
[2021-08-03] MEDS: 0.9 % Sodium Chloride 1,000 ML 999 ML IV ×4 (19:23→23:09)
[2021-08-03] MEDS: Piperacillin Sodium/Tazobactam 3.375 GM in 0.9 % Sodium Chloride 50 ML IV (19:23)
--- NOTE | 2021-08-03 19:36 | PC.NURSE ---
PATIENT OUTPUT WAS 600 ML FROM STRAIGHT CATH.
[2021-08-03 19:56] LABS: Glucose, Whole Blood 107 mg/dL (60-115)
[2021-08-03 20:00] VITALS: BP 84/44; PULSE 114; RESP 20; TEMP 37; O2SAT 95
[2021-08-03 21:35] LABS: Anion Gap 24 (12-20); Blood Urea Nitrogen 55 mg/dL (9-16); Calcium 7.8 mg/dL (8.4-10.2); Carbon Dioxide 18 mmol/L (22-29); Chloride 103 mmol/L (96-108); Creatinine Clr Calc Pharmacy 6.7; Estimated Glomerular Filt Rate 4; Glucose Random 130 mg/dL (60-115); Potassium 6.3 mmol/L (3.3-5.1); Sodium 139 mmol/L (135-145)
--- NOTE | 2021-08-03 21:41 | PHA.MEDREC ---
Pharmacy Consult ? Medication Reconciliation Pharmacy has completed the medication reconciliation. completed as per snf orders summary
[2021-08-03] MEDS: LORazepam 2 MG/ML VIAL 1 MG IVPUSH ×2 (21:49→23:51)
--- NOTE | 2021-08-03 21:52 | PC.NURSE ---
pt magnesium was done being infused when this RN started shift.
[2021-08-03 21:56] VITALS: PULSE 102; RESP 20; O2SAT 100
[2021-08-03] MEDS: Calcium Gluconate/NaCl,Iso-Osm 2 GM/100 ML PLAST..BAG IV (22:39)
[2021-08-03] MEDS: Sodium Bicarbonate 8.4% 50 MEQ/50 ML SYRINGE IVPUSH (22:39)
[2021-08-03] MEDS: Insulin Regular, Human 100 UNIT/ML 3 ML VIAL IVPUSH (23:15)
--- NOTE | 2021-08-03 23:37 | PC.NURSE ---
report given to gali in ICU
[2021-08-03 23:40] LABS: Glucose, Whole Blood 148 mg/dL (60-115)
--- NOTE | 2021-08-03 23:46 | PM.CCHP ---
History of Present Illness Date of Service: 08/03/21 Attending physician on admission: Jesus De Oliveira Chief Complaint: Lethargy The patient is a 65 year old male with Past medical history hypertension, hyperlipidemia, diabetes, history of diastolic CHF, aortic stenosis, alcohol abuse, aspiration pneumonia and recent hospitalization 07/20/21 to 07/29/21 for Diverticulitis. He presented to the emergency room via EMS from [facility]? with complaints of lethargy.? According to? EMS,? patient?s facility is treating patient for UTI? but today he was noted to be more confused? and lethargic.? ?In the ED,? patient was altered,? but able to answer some questions. ? He was hypotensive 84/44 and tachycardic to 114.?? Laboratory data was significant for? WBC 15.1, ? sodium 139, potassium 6.3, bicarb 18, and anion gap 24, creatinine 12.4 (last creat on 07/24/21 normal 0.93) , calcium 7.8 and? magnesium 11.2.? IMAGING:? Chest XRAY- No acute findings? Abdominal CT- ? No significant abnormality. A cause for the patient's renal failure such as obstructive uropathy has not been found. ED course:? patient received? 4 L of? normal saline, 1 amp of sodium bicarb,? 5 units of insulin? with? dextrose amp,? calcium gluconate, Zosyn, 2 g of magnesium, and? total 5 of Ativan? while in the ED.? Initially, ED provider contacted Renal, Dr Tucker who recommended fluids and possible dialysis in the morning, but when I went to assessed the patient in the emergency room,? patient was altered,? hypotensive and in acute respiratory distress,? I personally contacted? renal again who agreed to do emergency dialysis? On arrival to ICU, patient unable to protect airway, requiring emergent intubation.? Review of Systems Review of Systems: Unable to the patient's confused PMFSH Past Medical History Medical History LAUREN (acute kidney injury) Alcohol abuse COPD (chronic obstructive pulmonary disease) Diabetes mellitus type 1 Diastolic dysfunction Diastolic heart failure Fall HLD (hyperlipidemia) Hypertension Nonrheumatic aortic (valve) stenosis Obesity Family History Family History Father Diabetes Mother Diabetes Surgical History Surgical History H/O elbow surgery H/O shoulder surgery History of hydrocelectomy S/P TURP Social History Social History Household Members: None Housing: Senior Living Do you presently have visiting nurse or other home services: Yes (used to live in apt. has been in [place] for ahwile ) Unable to assess alcohol history related to: Unable to respond Alcohol intake: current Alcohol intake frequency: 3 or more drinks per day Alcohol type: hard liquor Patient Tobacco Use Status: Former Tobacco user Tobacco use type: Cigar e-Cigarette/Vaping Use: Currently Using Second Hand Smoke Exposure: No Use of substances other than those prescribed or required for medical reasons: Unable to respond Advance Directives: Yes Advance Directives on File: Yes Advance Directives Date on File: 10/11/20 Do you have thoughts of harming others: None Do you have a plan to hurt others: No Plan Recently lost weight without trying: Unsure Poor oral hygiene: Yes service: No Current occupational status: unemployed and disabled Meds Allergies Allergy/AdvReac Type Severity Reaction Status Date / Time ENVIRONMENTAL Allergy Mild SNEEZING, Uncoded 08/03/21 15:10 WATERY EYES Active Medications: Current Medications Sodium Chloride (Ns) 1,000 mls @ 999 mls/hr IV .Q1H1M ONE Stop: 08/04/21 00:09 Home Medications Medication Instructions Recorded Confirmed Last Taken Type albuterol sulfate 90 mcg/actuation 2 puff INHALATION Q6H PRN 12/29/20 08/03/21 Unknown History aerosol inhaler blood sugar diagnostic (FreeStyle 12/29/20 02/04/21 Unknown History Lite Strips) folic acid 1 mg tablet 1 tab PO DAILY@1700 12/29/20 08/03/21 Unknown History lisinopril 10 mg tablet 1 tab PO DAILY 12/29/20 08/03/21 Unknown History simvastatin 20 mg tablet 1 tab PO BEDTIME 12/29/20 08/03/21 Unknown History thiamine HCl (vitamin B1) 100 mg 1 tab PO BEDTIME 12/29/20 08/03/21 Unknown History tablet aspirin 81 mg tablet,delayed 1 tab PO BEDTIME 02/04/21 08/03/21 Unknown History release buspirone 5 mg tablet 5 mg PO BID 02/04/21 08/03/21 Unknown History ramelteon 8 mg tablet 1 tab PO BEDTIME 05/12/21 08/03/21 Unknown History tamsulosin 0.4 mg capsule 1 cap PO DAILY@1700 05/12/21 08/03/21 Unknown History omeprazole 20 mg capsule,delayed 1 cap PO BID@0630,1630 06/01/21 08/03/21 Unknown History release insulin glargine 100 unit/mL 45 unit SUBCUT BEDTIME 06/24/21 08/03/21 Unknown History subcutaneous solution (Lantus U-100 Insulin) acetaminophen 325 mg capsule 650 mg PO TID 07/21/21 08/03/21 Unknown History (Tylenol) bisacodyl 10 mg rectal suppository 10 mg SD DAILY PRN 07/21/21 08/03/21 Unknown History fluticasone 250 mcg-salmeterol 50 1 inh INHALATION BID 07/21/21 08/03/21 Unknown History mcg/dose blistr powdr for inhalation (Wixela Inhub) insulin aspart U-100 100 unit/mL 1 sliding scale dose SUBCUT TIDAC 07/21/21 08/03/21 Unknown History (3 mL) subcutaneous pen (Novolog Flexpen U-100 Insulin aspart) loperamide 2 mg capsule 2 mg PO Q6H PRN 07/21/21 08/03/21 Unknown History ondansetron HCl 4 mg tablet 4 mg PO Q4H PRN 07/21/21 08/03/21 Unknown History oxycodone 5 mg tablet 5 mg PO Q8H PRN 07/21/21 08/03/21 Unknown History erythromycin 5 mg/gram (0.5 %) eye 0.5 inch OPHTHALMIC (EYE) TID 08/03/21 08/03/21 Unknown History ointment gabapentin 600 mg tablet 600 mg PO TID 08/03/21 08/03/21 Unknown History guaifenesin 100 mg/5 mL oral liquid 200 mg PO Q4H PRN 08/03/21 08/03/21 Unknown History lidocaine 4 % topical patch 1 patch TOPICAL DAILY 08/03/21 08/03/21 Unknown History (Aspercreme (lidocaine)) Physical Exam Vital Signs: Vital Signs: Last Vital Signs Temp 98.6 F 08/03/21 20:00 Pulse 102 H 08/03/21 21:56 Resp 20 08/03/21 21:56 BP 84/44 L 08/03/21 20:00 Pulse Ox 100 08/03/21 21:56 Oxygen Flow Rate 10 08/03/21 15:41 BMI result Body Mass Index 29.4 Assesment performed at 2300 ?General:?Lethargic, confused, in acute resp distress. ?HEENT:? Head is normocephalic, atraumatic, pupils equal round reactive to light accommodation bilaterally.?? Buccal mucosa is dry, Neck is supple. ?Cardiac:? Sinus Tach. Clear S1-S2, no murmurs rubs or gallops. ?Pulmonary:? Clear to auscultation, no wheezes, rales or rhonchi. ?Abdomen:? Protuberant, positive bowel sounds in all 4 quadrants.? Soft, nontender, no rebound or guarding.?? ?Musculoskeletal:?Moving all 4 extremities. ?Neurologic:? alert only x self.? No focal deficits noted. ?Skin:?Fungal rash in fara area, and neck folds Vascular:? 2+ pulses upper and lower extremities distally.? Results Labs CBC and Chem 7: 08/03/21 18:06 08/03/21 21:09 Labs: Laboratory Results - last 24 hr 08/03/21 08/03/21 08/03/21 16:30 16:30 16:30 MCV MCH MCHC RDW Plt Count MPV Immature Gran % (Auto) Neut % (Auto) Lymph % (Auto) [place] % (Auto) Eos % (Auto) Baso % (Auto) Lymph # (Auto) [place] # (Auto) Eos # (Auto) Baso # (Auto) Abs Immat Gran (auto) Absolute Neuts (auto) Absolute Nucleated RBC Nucleated RBC % (auto) PT 14.8 H INR 1.3 H APTT 36.0 VBG pH VBG pCO2 VBG pO2 VBG HCO3 VBG O2 Saturation VBG Base Excess Anion Gap Estim Creat Clear Calc Estimated GFR POC Glucose Random Glucose Lactic Acid 1.8 Calcium Magnesium Total Bilirubin AST ALT Alkaline Phosphatase Ammonia Total Creatine Kinase B-Natriuretic Peptide 51 Total Protein Albumin Urine Color Urine Appearance Urine pH Ur Specific [place] Urine Protein Urine Glucose (UA) Urine Ketones Urine Blood Urine Nitrite Ur Leukocyte Esterase COVID-19 (ELIER) COVID-19 Clin Com 08/03/21 08/03/21 08/03/21 17:20 17:20 18:06 MCV 95.9 MCH 30.4 MCHC 31.6 RDW 13.3 Plt Count 401 H D MPV 9.6 Immature Gran % (Auto) 0.5 H Neut % (Auto) 75.9 H Lymph % (Auto) 12.6 L [place] % (Auto) 9.2 Eos % (Auto) 1.3 Baso % (Auto) 0.5 Lymph # (Auto) 1.9 [place] # (Auto) 1.4 H Eos # (Auto) 0.2 Baso # (Auto) 0.1 Abs Immat Gran (auto) 0.08 H Absolute Neuts (auto) 11.4 H Absolute Nucleated RBC 0.000 Nucleated RBC % (auto) 0.0 PT INR APTT VBG pH VBG pCO2 VBG pO2 VBG HCO3 VBG O2 Saturation VBG Base Excess Anion Gap Estim Creat Clear Calc Estimated GFR POC Glucose Random Glucose Lactic Acid Calcium Magnesium Total Bilirubin AST ALT Alkaline Phosphatase Ammonia Total Creatine Kinase B-Natriuretic Peptide Total Protein Albumin Urine Color DK YELLOW Urine Appearance CLEAR Urine pH 5.0 Ur Specific [place] >= 1.030 H Urine Protein TRACE Urine Glucose (UA) NEG Urine Ketones 5 Urine Blood NEG Urine Nitrite NEG Ur Leukocyte Esterase NEG COVID-19 (ELIER) Negative COVID-19 Clin Com See Note 08/03/21 08/03/21 08/03/21 18:06 18:06 18:08 MCV MCH MCHC RDW Plt Count MPV Immature Gran % (Auto) Neut % (Auto) Lymph % (Auto) [place] % (Auto) Eos % (Auto) Baso % (Auto) Lymph # (Auto) [place] # (Auto) Eos # (Auto) Baso # (Auto) Abs Immat Gran (auto) Absolute Neuts (auto) Absolute Nucleated RBC Nucleated RBC % (auto) PT INR APTT VBG pH 7.33 VBG pCO2 36 VBG pO2 70 VBG HCO3 19 L VBG O2 Saturation 90.0 VBG Base Excess -5.5 Anion Gap 24 H Estim Creat Clear Calc 6.7 Estimated GFR 4 POC Glucose Random Glucose 116 H Lactic Acid Calcium 8.5 Magnesium 11.2 H* Total Bilirubin 0.4 AST 13 ALT 6 Alkaline Phosphatase 75 Ammonia 21 Total Creatine Kinase 44 D B-Natriuretic Peptide Total Protein 6.8 D Albumin 3.3 L Urine Color Urine Appearance Urine pH Ur Specific [place] Urine Protein Urine Glucose (UA) Urine Ketones Urine Blood Urine Nitrite Ur Leukocyte Esterase COVID-19 (ELIER) COVID-19 Clin Com 08/03/21 08/03/21 08/03/21 19:41 21:09 23:37 MCV MCH MCHC RDW Plt Count MPV Immature Gran % (Auto) Neut % (Auto) Lymph % (Auto) [place] % (Auto) Eos % (Auto) Baso % (Auto) Lymph # (Auto) [place] # (Auto) Eos # (Auto) Baso # (Auto) Abs Immat Gran (auto) Absolute Neuts (auto) Absolute Nucleated RBC Nucleated RBC % (auto) PT INR APTT VBG pH VBG pCO2 VBG pO2 VBG HCO3 VBG O2 Saturation VBG Base Excess Anion Gap 24 H Estim Creat Clear Calc 6.7 Estimated GFR 4 POC Glucose 107 148 H Random Glucose 130 H Lactic Acid Calcium 7.8 L D Magnesium Total Bilirubin AST ALT Alkaline Phosphatase Ammonia Total Creatine Kinase B-Natriuretic Peptide Total Protein Albumin Urine Color Urine Appearance Urine pH Ur Specific [place] Urine Protein Urine Glucose (UA) Urine Ketones Urine Blood Urine Nitrite Ur Leukocyte Esterase COVID-19 (ELIER) COVID-19 Clin Com Imaging Radiologist's Impressions: Impressions Chest X-Ray 08/03/21 18:49 IMPRESSION: No acute intrathoracic disease. Assessment and Plan (1) Acute renal failure: Status: Acute (2) Metabolic encephalopathy: Status: Acute (3) Altered mental state: Status: Acute (4) Acute respiratory failure: Status: Acute (5) Diverticulitis: Status: Acute (6) Hyperkalemia: Status: Acute (7) Alcohol abuse: Status: Acute (8) Anemia: Status: Acute (9) Fungal dermatitis: Status: Acute Plan 65-year-old male with a past medical history of hypertension, hyperlipidemia, diabetes, diastolic heart failure, aortic stenosis and alcohol abuse who presented acute renal failure require emergent dialysis Neuro:?? ?Metabolic encephalopathy-? Unable to protect airway, required emergent intubation. This is likely from renal failure.? Should improve after dialysis Cardiac:? ?Sepsis-? patient hypotensive,? tachycardic? but lactic level was not elevated. Recent diagnosis of diverticulitis. Required pressors after sedation for intubation. Received abx in ED. Will cont abx therapy? Pulmonary:?? Acute respiratory failure- required emergent intubation for airway protection. Patient respiratory status should improve post dialysis. Wean off vent when possible Renal:? ?Acute renal failure-? Last creat 0.93 on 07/24/21, today is 12.5 with repeat creat 12.4. He is making urine, but he is altered with a potassium elevated to 6.3. CT of abdomen does not show clear obstruction to explain sudden renal decomposition. Renal consulted, and agreed with emergent dialysis. Will repeat labs after dialysis? ?Hyperkalemia-? likely due to renal failure,? no acute changes in EKG.? should resolve after dialysis.? GI:? No acute issues.? Endo:? No acute issues.?? ID: WBC elevated to 15.? Patient recently treated for bacteremia probably secondary to diverticulitis. BCx grew enterococcus faecalis, enterococcus faecium (VRE - resistant to ampicillin and vanco) during that hospitalization and send to SNF on augmentin.? ED empirically treated with Zosyn. ? Will add? linezolid.? ?Fungal dermatitis-? patient has fungal rash ? Fara area-? will add nystatin Heme/Onc:?? ?Chronic anemia:? this is likely due to underlying history of alcohol abuse Psych: ? ETOH abuse-? he was discharged to [facility] on 07/29.? Do not think he will be withdrawing.? But will monitor for signs and symptoms of withdrawal? Miscellaneous:? No acute issues. Prophylaxis:? Heparin,? PPI Diet: ? NPO CODE: FULL Critical care time: x 90 min of critical care time? not including procedures Critical Care Time Critical Care Time (minutes): 90
[2021-08-04] VITALS (41 sets, daily range): BP systolic 74–230; BP diastolic 26–200; PULSE 67–112; RESP 14–22; TEMP 32–38.1; O2SAT 90–100; BMI 30.7; BMI 33.5
[2021-08-04] MEDS: propofoL 200 MG/20 ML VIAL 100 MG IVPUSH (02:05)
[2021-08-04] MEDS: Sodium Bicarbonate 8.4% 50 MEQ/50 ML SYRINGE IVPUSH (02:06)
[2021-08-04] MEDS: propofoL 1,000 MG/100 ML VIAL 27.9 MG IVCONT ×3 (02:07→07:26)
[2021-08-04] MEDS: Cisatracurium Besylate 20 MG/10 ML VIAL IVPUSH ×3 (02:18→05:15)
--- NOTE | 2021-08-04 02:21 | W.PM.CCHP ---
Procedures Date of Service Date of Service: 08/04/21 Intubation Intubation Comments: When patient arrived from ED, altered require emergent intubation for airway protection. Intubated emergently with a size 8 cuffed ET tube under glide scope guidance with visualization of vocal cords, without immediate complications. ET tube position verified with Chest XRAY. Consent for Procedure: Emergent-no informed consent obtained Time out performed: Yes Sedative: propofol Mg given: 100 Paralytic: other (Nimbex) Mg given: 20 Laryngoscope: fiber optic video scope ET tube size: 8 ET tube uncuffed: No Tube secured depth (cm): 26 Tube secured location: lips Tube placement confirmation: visualized tube passing through cords, equal breath sounds bilaterally and no breath sounds over epigastrium Patient tolerated procedure: well and no complications Intubation complications: none
[2021-08-04] MEDS: fentaNYL citrate/PF 100 MCG/2 ML VIAL IVPUSH ×2 (02:30→04:21)
[2021-08-04 03:05] LABS: VBG Base Excess -4.5 mmol/L; VBG HCO3 21 mmol/L (22-26); VBG pCO2 43 mmHg; VBG pO2 59 mmHg
--- NOTE | 2021-08-04 03:06 | W.PM.CCHP ---
Procedures Date of Service Date of Service: 08/04/21 Central Line Placement Left Femoral: Central Line Comments: Right and left internal jugular Master catheter were attempted, but unable to dial the wire bilaterally, thus left femoral Master catheter emergently placed under ultrasound guidance and usual sterile conditions with no immediate complications.
--- NOTE | 2021-08-04 03:30 | W.PM.CCHP ---
Procedures Date of Service Date of Service: 08/04/21 Central Line Placement Right Femoral: Central Line Comments: Right femoral TLC, changed to dialysis catheter through wire using sterile technique. Line was not drawing blood back, but flushes good. Abdominal x-ray was obtained to see position, is in good position. Cannot use it for dialysis but able to use as a central line Consent for Procedure: Emergent-no informed consent obtained Time out performed: Yes Sterile Technique Used: Yes Patient placed on monitor/pulse ox: Yes prep: mask, gown and gloves Central line prep: Chlorhexidine scrub Ultrasound used for placement: No Post procedure: sutured in place
[2021-08-04 04:06] LABS: Venous Blood Gas Refer to POC result
[2021-08-04] MEDS: Linezolid/D5W 600 MG/300 ML PIGGYBACK 300 MG IV (05:02)
[2021-08-04] MEDS: fentaNYL citrate/NS 1,000 MCG/100 ML PLAST..BAG 10 MCG IVCONT (05:02)
--- NOTE | 2021-08-04 05:16 | PC.NURSE ---
Pt admitted to ICU at approx 0100. Upon initial assessment- pt only arousable to noxious stimuli, decision made to intubate by COLD MEAT CHEF. Given propofol 100 mg IVP and nimbex 20 mg IVP for RSI. ETT #8, 26 cm at lip. On ACVC+ 22/420/5/60%. SBP 50s, levophed gtt ordered and titrated to maintain MAP > 65. Mahurkar catheter placed by MD to left femoral after multiple attempts- HD started at approx 0300. Pt frequently dysynchronous and restless, started on fentanyl gtt and required total of nimbex 60 mg IVP. Grissom in place, UOP 50 ml/hr. Skin intact- fungal infection noted to abd, axilla, groin, and neck- nystatin powder ordered.
[2021-08-04] MEDS: Pantoprazole Sodium 40 MG/10 ML VIAL IVPUSH (06:10)
[2021-08-04] MEDS: Chlorhexidine Gluc Oral Rinse 15 ML MOUTHWASH BUCCAL ×2 (07:28→13:49)
[2021-08-04] MEDS: Nystatin Powder 15 GM BOTTLE 1 APPL TOPICAL ×2 (07:35→20:45)
[2021-08-04 07:38] LABS: Basophils Absolute Auto 0.1 X10*3/uL (0.0-0.2); Basophils Percent Auto 0.5 % (0-2); Eosinophils Absolute Auto 0.1 X10*3/uL (0.0-0.4); Eosinophils Percent Auto 0.6 % (0-4); Hematocrit 33.4 % (42.0-52.0); Hemoglobin 10.4 g/dl (14.0-18.0); Imm Gran Abs Auto 0.09 X10*3/uL (0.00-0.03); Imm Gran Pct Auto 0.6 % (0.0-0.4); Lymphocytes Absolute Auto 1.1 X10*3/uL (1.2-4.9); Lymphocytes Percent Auto 7.4 % (20-40); MANUAL DIFF FLAG SCAN; Mean Corpuscular HGB Conc 31.1 g/dl (31.0-36.0); Mean Corpuscular Hemoglobin 30.1 pg (27.0-33.0); Mean Corpuscular Volume 96.8 fL (80.0-98.0); Mean Platelet Volume 9.5 fL (9.4-12.4); Monocytes Absolute Auto 1.6 X10*3/uL (0.1-1.2); Monocytes Percent Auto 10.2 % (2-11); Neutrophils Absolute Auto 12.4 x10*3/uL (2.0-8.3); Neutrophils Percent Auto 80.7 % (45-73); Platelet Count 306 X10*3/uL (160-400); Red Blood Count 3.45 X10*6/uL (4.60-5.80); Red Cell Distribution Width 13.5 % (11.0-16.0); SCAN SMEAR FLAG 1; White Blood Count 15.4 X10*3/uL (4.8-10.8)
[2021-08-04 07:39] LABS: VBG Base Excess -6.5 mmol/L; VBG HCO3 19 mmol/L (22-26); VBG pCO2 39 mmHg; VBG pH 7.29 (7.32-7.43); VBG pO2 53 mmHg
[2021-08-04 08:11] LABS: Alanine Aminotransferase 7 U/L (0-40); Alkaline Phosphatase 81 U/L (39-117); Anion Gap 18 (12-20); Aspartate Amino Transferase 10 U/L (5-37); Bilirubin Total 0.3 mg/dL (0.0-1.0); Blood Urea Nitrogen 23 mg/dL (9-16); Carbon Dioxide 21 mmol/L (22-29); Chloride 102 mmol/L (96-108); Creatinine Clr Calc Pharmacy 19.7; Estimated Glomerular Filt Rate 14; Glucose Random 207 mg/dL (60-115); Magnesium 1.6 mg/dL (1.6-2.6); Phosphorus 3.6 mg/dL (2.7-4.5); Potassium 4.3 mmol/L (3.3-5.1); Sodium 137 mmol/L (135-145); Total Protein 5.5 g/dL (6.5-8.0)
[2021-08-04 08:24] LABS: SLIDE REVIEW VERIFIED
[2021-08-04 08:57] LABS: Venous Blood Gas Refer to POC result
[2021-08-04] MEDS: propofoL 1,000 MG/100 ML VIAL 16.74 MG IVCONT (11:54)
[2021-08-04 12:50] LABS: Creatinine Urine 90.39 mg/dL
[2021-08-04 12:51] LABS: Total Protein Urine Random 34 mg/dL (<12)
--- NOTE | 2021-08-04 14:04 | CONS_ITS ---
DATE OF SERVICE: 08/04/2021 REASON FOR CONSULTATION: I was asked to see patient to assist in evaluation and management of patient's acute kidney injury as reflected by BUN and creatinine of 55 and 12.4 last night, and potassium of 6.3. He presented to the emergency room at 6:00 p.m. and his creatinine was 12.5. Of note, back on July 24, when he was an inpatient here, his creatinine was 0.9. Patient is on a ventilator and information was obtained from electronic medical record. HISTORY OF PRESENT ILLNESS: In summary, patient is a 65-year-old gentleman with a history of hypertension, hyperlipidemia, diabetes, heart failure, diastolic dysfunction, aortic stenosis, alcohol abuse, aspiration pneumonia, and again was hospitalized earlier this month, discharged on July 29, with an episode of diverticulitis and had hyponatremia. He now presents to the hospital last night from the shelter facility with generalized lethargy. He was getting treatment for urinary tract infection at the shelter facility. In the emergency room, he was noted to be hypotensive and tachycardic. He had labs done which showed severe LAUREN and hyperkalemia. He received a total 4 L of saline and got some treatment for hyperkalemia, but it was decided that it was not controllable and they went ahead and did dialysis last night. He got intubated for airway protection. Overnight, nurses say that he has made over 400 mL of urine, which is a good sign. PAST MEDICAL HISTORY: Notable for alcohol abuse, COPD, diabetes, heart failure with diastolic dysfunction, hyperlipidemia, hypertension, mention made of aortic valve stenosis and obesity. MEDICATIONS: On admission are listed in the admitting notes. Current medications noted in the MAR. He has been started on antibiotics. ALLERGIES: HE HAS NO KNOWN DRUG ALLERGIES. REVIEW OF SYSTEMS: Unobtainable. PHYSICAL EXAMINATION: VITAL SIGNS: He is on a ventilator. Blood pressure 124/50, with a heart rate in the 80s. Afebrile. HEENT: Head is atraumatic, normocephalic. LUNGS: Breath sounds bilaterally. CARDIAC: Regular rate. ABDOMEN: Soft. EXTREMITIES: No edema. LABORATORY DATA: From this morning show sodium 137, potassium 4.3, chloride 102, bicarb 21, BUN 23, creatinine 4.3, calcium 8. Phosphorus 3.6, albumin 3.0. From last night prior to dialysis, his creatinine was 12.4. Hemoglobin 10.4, hematocrit 33.4, white blood cell count 15.4, platelet count 306. Urine studies from admission. UA was essentially unremarkable, other than being very concentrated. IMAGING STUDIES: He had a CAT scan of the abdomen and pelvis last night on admission, showed no obstruction of the kidneys. IMPRESSION: 65-YEAR-OLD WITH SEVERE ACUTE KIDNEY INJURY IN THE SETTING OF HYPOTENSION. 1. Acute kidney injury. Patient is making urine, which is good sign. Remains unclear what the cause of his LAUREN is. His clinical presentation would suggest ischemic acute tubular necrosis from hypotension. Further evaluation is underway to determine the cause of his LAUREN. His UA seems bland, which would go against an acute interstitial or acute glomerulonephritis. The lack of a high BUN and creatinine ratio goes against simply dehydration. It is most consistent with multifactorial ischemic acute tubular necrosis. 2. Hyperkalemia, controlled with dialysis. 3. Respiratory failure. He has been intubated and maintained on ventilator. SUGGESTIONS: At this time include continue to track his urine output and renal function. Hold off on further dialysis unless his numbers worsen again. Depending on his clinical course, further renal evaluation will be necessary, but hopefully his kidney function will improve now with hemodynamic support and adequate renal perfusion. We will follow the patient closely with the team. MD KIN Willard/ROYAL / [id number]
--- NOTE | 2021-08-04 14:07 | PM.CCPN ---
Subjective Subjective Date of Service: 08/04/21 Interval History: Mr. Aragon was admitted to ICU last night with acute renal failure requiring urgent HD. The patient is a 65 year old male with reported PMHx of: Alcohol abuse COPD DM Diastolic heart failure HLD Hypertension Nonrheumatic mod-severe aortic stenosis (last echo 07/28/21) Obesity Chronic OLGUIN. Most recently, the patient has been living at a SNF undergoing rehab after a fall with left rib injury.? The current admission is the patient?s 6th admission to [facility] this year.? He was admitted to [facility] 3 times last year. Last admission here was 07/21- for abdom pain, which was thought 2? diverticulitis.? The patient had hypotension, LAUREN with creat 3.6, and bacteremia with VRE enterococcus faecalis and enterococcus faecium (resistant to ampicillin and vanco) and coag negative staph.? Was seen by ID, recommended Zosyn while inpatient which was completed, and Augmentin for outpatient 7 days. ?GI rec further workup w colonoscopy in 10-12 weeks after acute episode diverticulitis resolved. The patient was BIBA to the ED yesterday bec of AMS since 10AM.? Reportedly, he had recently developed a UTI.? In the ED, the patient was reportedly alert and oriented with an extensive negative ROS.? HR was 98, BP 94/68, RR 20, Sat 92% on NC oxygen.? Temp was 100.4?.? The patient was in no distress, with an unremarkable general physical exam. Labs in the ED were delayed for hours because of inability to find a vein.? Finally, Dr. Berry placed a TLC in the right groin.? Labs were notable for a WBC of 15, BUN/creatinine were 51/12 (were 4/0.9 on 07/24), potassium was 5.7, bicarb was 17, glucose was 116.? Lactic acid was negative.? Screening u/a was unremarkable.? CXR was negative.? CT abdomen showed no hydronephrosis or sign of obstructive uropathy, or any other explanation for his LAUREN. The patient was given 3L fluid and treated for hyperkalemia.? He was also given abx.? Repeat labs were unimproved with potassium up to 6.3, and the patient developed an altered mental status, hypotension, and acute respiratory distress.? The patient was therefore admitted to the ICU for acute hemodialysis.? He was intubated on arrival to the ICU for airway control. Subsequently, central access for a dialysis catheter was attempted.? Both internal jugular veins were cannulated easily, but the wire was unable to be passed from either side.? Therefore, the femoral TLC was exchanged over a wire for a temporary dialysis catheter.? But that dialysis catheter didn?t work, so a new temp dialysis catheter was placed in left groin, and the patient was dialyzed through that catheter early this morning.? Abx were not continued.? Notably, throughout the night, the patient had good urine output. Otherwise, the patient has been sedated this morning on just propofol.? We turned the propofol off about 15 min ago.? The patient is now opening his eyes and nodding appropriately to some questions.? The patient has been afebrile since the ED.? Heart rate is 92, blood pressure 116/72.? On assist control 12/420/21/+5, RR is 16, Ve 7.4L, PIP 9cm, ETCO2 34mm, Sat 93%.? PER, about 3mm.? No JVD at 30?.? Chest CTA, w normal exp phase.? Heart rate and rhythm are regular, with normal-sounding S1 and S2, with no murmur or gallops.? The abdomen is benign.? He has no peripheral edema. LABORATORY DATA:? Below.? Notably, white count is still elevated this morning.? After dialysis, BUN/creatinine are down to 23/4.3. IMPRESSION: 1. LAUREN.? Cause remains unclear.? Could be ATN 2? hypotension.? Less likely would be AIN from Augmentin.? Regardless, the patient is making excellent urine.? Hopefully won?t require further HD. 2. AMS.? What exactly happened yesterday and last night is not clear, especially given the fact that according to the ED notes, the patient's mental status was in fact normal.? But after treatment in the ED, his mental status deteriorated for some reason, such that he required intubation for airway protection.? Regardless of what happened, with a BUN of only 55, uremia would seem and unlikely cause of his altered mental status.? According to his Med Rec, he is on gabapentin 600 mg tid.? With his LAUREN, that could certainly have rendered him near comatose. 3. Hypotension in the ED.? The cause is similarly unclear.? His renal ratio is inconsistent with hypovolemia, and reportedly he was making urine.? His white count was elevated and he did have a low-grade temperature, but his lactate was negative and his cultures are so far negative.? So septic shock seems very unlikely. 4. Acute respiratory failure.? 2? AMS and the need to control his airway.? Should be extubatable today. 5. ID:? White count is elevated and he had a low-grade temp in the ED, but lactic acid was negative and clinically doesn?t seem infected.? Cultures negative.? Certainly doesn?t have pneumonia.? Will not continue abx. Critical care time (including extended old chart rev and extensive d/w Dr. De Oliveira and Dr. Garcia):? 90+ min. Critical Care Time (minutes): 90 Physical Exam Vital Signs: Vital Signs: Last Vital Signs Temp 98.4 F 08/04/21 13:00 Pulse 76 08/04/21 13:00 Resp 15 08/04/21 13:00 BP 126/81 08/04/21 13:43 Pulse Ox 94 08/04/21 13:00 Oxygen Flow Rate 10 08/03/21 15:41 BMI result Body Mass Index 33.5 Objective Data Labs CBC & Chem 7: 08/04/21 07:25 08/04/21 07:25 Labs: Laboratory Results - last 24 hr 08/03/21 08/03/21 08/03/21 16:30 16:30 16:30 WBC RBC Hgb Hct MCV MCH MCHC RDW Plt Count MPV Immature Gran % (Auto) Neut % (Auto) Lymph % (Auto) [place] % (Auto) Eos % (Auto) Baso % (Auto) Lymph # (Auto) [place] # (Auto) Eos # (Auto) Baso # (Auto) Abs Immat Gran (auto) Absolute Neuts (auto) Absolute Nucleated RBC Nucleated RBC % (auto) Smear Tech's Comments PT 14.8 H INR 1.3 H APTT 36.0 VBG pH VBG pCO2 VBG pO2 VBG HCO3 VBG O2 Saturation VBG Base Excess Sodium Potassium Chloride Carbon Dioxide Anion Gap BUN Creatinine Estim Creat Clear Calc Estimated GFR POC Glucose Random Glucose Lactic Acid 1.8 Calcium Phosphorus Magnesium Total Bilirubin AST ALT Alkaline Phosphatase Ammonia Total Creatine Kinase Troponin I High Sens 75.1 H D B-Natriuretic Peptide Total Protein Albumin Urine Color Urine Appearance Urine pH Ur Specific Rayne Urine Protein Urine Glucose (UA) Urine Ketones Urine Blood Urine Nitrite Ur Leukocyte Esterase U Random Total Protein Ur Random Sodium Urine Creatinine COVID-19 (ELIER) COVID-19 Clin Com 08/03/21 08/03/21 08/03/21 16:30 17:20 17:20 WBC RBC Hgb Hct MCV MCH MCHC RDW Plt Count MPV Immature Gran % (Auto) Neut % (Auto) Lymph % (Auto) [place] % (Auto) Eos % (Auto) Baso % (Auto) Lymph # (Auto) [place] # (Auto) Eos # (Auto) Baso # (Auto) Abs Immat Gran (auto) Absolute Neuts (auto) Absolute Nucleated RBC Nucleated RBC % (auto) Smear Tech's Comments PT INR APTT VBG pH VBG pCO2 VBG pO2 VBG HCO3 VBG O2 Saturation VBG Base Excess Sodium Potassium Chloride Carbon Dioxide Anion Gap BUN Creatinine Estim Creat Clear Calc Estimated GFR POC Glucose Random Glucose Lactic Acid Calcium Phosphorus Magnesium Total Bilirubin AST ALT Alkaline Phosphatase Ammonia Total Creatine Kinase Troponin I High Sens B-Natriuretic Peptide 51 Total Protein Albumin Urine Color DK YELLOW Urine Appearance CLEAR Urine pH 5.0 Ur Specific Rayne >= 1.030 H Urine Protein TRACE Urine Glucose (UA) NEG Urine Ketones 5 Urine Blood NEG Urine Nitrite NEG Ur Leukocyte Esterase NEG U Random Total Protein Ur Random Sodium Urine Creatinine COVID-19 (ELIER) Negative COVID-19 Clin Com See Note 08/03/21 08/03/21 08/03/21 18:06 18:06 18:06 WBC 15.1 H RBC 3.69 L Hgb 11.2 L Hct 35.4 L MCV 95.9 MCH 30.4 MCHC 31.6 RDW 13.3 Plt Count 401 H D MPV 9.6 Immature Gran % (Auto) 0.5 H Neut % (Auto) 75.9 H Lymph % (Auto) 12.6 L [place] % (Auto) 9.2 Eos % (Auto) 1.3 Baso % (Auto) 0.5 Lymph # (Auto) 1.9 [place] # (Auto) 1.4 H Eos # (Auto) 0.2 Baso # (Auto) 0.1 Abs Immat Gran (auto) 0.08 H Absolute Neuts (auto) 11.4 H Absolute Nucleated RBC 0.000 Nucleated RBC % (auto) 0.0 Smear Tech's Comments PT INR APTT VBG pH VBG pCO2 VBG pO2 VBG HCO3 VBG O2 Saturation VBG Base Excess Sodium 134 L Potassium 5.7 H Chloride 99 Carbon Dioxide 17 L Anion Gap 24 H BUN 51 H D Creatinine 12.50 H* Estim Creat Clear Calc 6.7 Estimated GFR 4 POC Glucose Random Glucose 116 H Lactic Acid Calcium 8.5 Phosphorus Magnesium 11.2 H* Total Bilirubin 0.4 AST 13 ALT 6 Alkaline Phosphatase 75 Ammonia 21 Total Creatine Kinase 44 D Troponin I High Sens B-Natriuretic Peptide Total Protein 6.8 D Albumin 3.3 L Urine Color Urine Appearance Urine pH Ur Specific Rayne Urine Protein Urine Glucose (UA) Urine Ketones Urine Blood Urine Nitrite Ur Leukocyte Esterase U Random Total Protein Ur Random Sodium Urine Creatinine COVID-19 (ELIER) COVID-19 [facility] 08/03/21 08/03/21 08/03/21 18:06 18:08 19:41 WBC RBC Hgb Hct MCV MCH MCHC RDW Plt Count MPV Immature Gran % (Auto) Neut % (Auto) Lymph % (Auto) [place] % (Auto) Eos % (Auto) Baso % (Auto) Lymph # (Auto) [place] # (Auto) Eos # (Auto) Baso # (Auto) Abs Immat Gran (auto) Absolute Neuts (auto) Absolute Nucleated RBC Nucleated RBC % (auto) Smear Tech's Comments PT INR APTT VBG pH 7.33 VBG pCO2 36 VBG pO2 70 VBG HCO3 19 L VBG O2 Saturation 90.0 VBG Base Excess -5.5 Sodium Potassium Chloride Carbon Dioxide Anion Gap BUN Creatinine Estim Creat Clear Calc Estimated GFR POC Glucose 107 Random Glucose Lactic Acid Calcium Phosphorus Magnesium Total Bilirubin AST ALT Alkaline Phosphatase Ammonia Total Creatine Kinase Troponin I High Sens 70.3 H B-Natriuretic Peptide Total Protein Albumin Urine Color Urine Appearance Urine pH Ur Specific Rayne Urine Protein Urine Glucose (UA) Urine Ketones Urine Blood Urine Nitrite Ur Leukocyte Esterase U Random Total Protein Ur Random Sodium Urine Creatinine COVID-19 (ELIER) COVID-19 [facility] 08/03/21 08/03/21 08/04/21 21:09 23:37 02:58 WBC RBC Hgb Hct MCV MCH MCHC RDW Plt Count MPV Immature Gran % (Auto) Neut % (Auto) Lymph % (Auto) [place] % (Auto) Eos % (Auto) Baso % (Auto) Lymph # (Auto) [place] # (Auto) Eos # (Auto) Baso # (Auto) Abs Immat Gran (auto) Absolute Neuts (auto) Absolute Nucleated RBC Nucleated RBC % (auto) Smear Tech's Comments PT INR APTT VBG pH 7.30 L VBG pCO2 43 VBG pO2 59 VBG HCO3 21 L VBG O2 Saturation 82.0 VBG Base Excess -4.5 Sodium 139 Potassium 6.3 H* Chloride 103 Carbon Dioxide 18 L Anion Gap 24 H BUN 55 H Creatinine 12.41 H* Estim Creat Clear Calc 6.7 Estimated GFR 4 POC Glucose 148 H Random Glucose 130 H Lactic Acid Calcium 7.8 L D Phosphorus Magnesium Total Bilirubin AST ALT Alkaline Phosphatase Ammonia Total Creatine Kinase Troponin I High Sens B-Natriuretic Peptide Total Protein Albumin Urine Color Urine Appearance Urine pH Ur Specific Ray[place] Urine Protein Urine Glucose (UA) Urine Ketones Urine Blood Urine Nitrite Ur Leukocyte Esterase U Random Total Protein Ur Random Sodium Urine Creatinine COVID-19 (ELIER) COVID-19 Clin Com 08/04/21 08/04/21 08/04/21 07:25 07:25 07:32 WBC 15.4 H RBC 3.45 L Hgb 10.4 L Hct 33.4 L MCV 96.8 MCH 30.1 MCHC 31.1 RDW 13.5 Plt Count 306 MPV 9.5 Immature Gran % (Auto) 0.6 H Neut % (Auto) 80.7 H Lymph % (Auto) 7.4 L [place] % (Auto) 10.2 Eos % (Auto) 0.6 Baso % (Auto) 0.5 Lymph # (Auto) 1.1 L [place] # (Auto) 1.6 H Eos # (Auto) 0.1 Baso # (Auto) 0.1 Abs Immat Gran (auto) 0.09 H Absolute Neuts (auto) 12.4 H Absolute Nucleated RBC 0.000 Nucleated RBC % (auto) 0.0 Smear Tech's Comments VERIFIED PT INR APTT VBG pH 7.29 L VBG pCO2 39 VBG pO2 53 VBG HCO3 19 L VBG O2 Saturation 77.0 VBG Base Excess -6.5 Sodium 137 Potassium 4.3 D Chloride 102 Carbon Dioxide 21 L Anion Gap 18 BUN 23 H D Creatinine 4.35 H* Estim Creat Clear Calc 19.7 Estimated GFR 14 POC Glucose Random Glucose 207 H D Lactic Acid Calcium 8.0 L Phosphorus 3.6 Magnesium 1.6 Total Bilirubin 0.3 AST 10 ALT 7 Alkaline Phosphatase 81 Ammonia Total Creatine Kinase Troponin I High Sens B-Natriuretic Peptide Total Protein 5.5 L Albumin 3.0 L Urine Color Urine Appearance Urine pH Ur Specific Rayne Urine Protein Urine Glucose (UA) Urine Ketones Urine Blood Urine Nitrite Ur Leukocyte Esterase U Random Total Protein Ur Random Sodium Urine Creatinine COVID-19 (ELIER) COVID-19 Clin Com 08/04/21 08/04/21 08/04/21 12:24 12:24 12:24 WBC RBC Hgb Hct MCV MCH MCHC RDW Plt Count MPV Immature Gran % (Auto) Neut % (Auto) Lymph % (Auto) [place] % (Auto) Eos % (Auto) Baso % (Auto) Lymph # (Auto) [place] # (Auto) Eos # (Auto) Baso # (Auto) Abs Immat Gran (auto) Absolute Neuts (auto) Absolute Nucleated RBC Nucleated RBC % (auto) Smear Tech's Comments PT INR APTT VBG pH VBG pCO2 VBG pO2 VBG HCO3 VBG O2 Saturation VBG Base Excess Sodium Potassium Chloride Carbon Dioxide Anion Gap BUN Creatinine Estim Creat Clear Calc Estimated GFR POC Glucose Random Glucose Lactic Acid Calcium Phosphorus Magnesium Total Bilirubin AST ALT Alkaline Phosphatase Ammonia Total Creatine Kinase Troponin I High Sens B-Natriuretic Peptide Total Protein Albumin Urine Color Urine Appearance Urine pH Ur Specific [place] Urine Protein Urine Glucose (UA) Urine Ketones Urine Blood Urine Nitrite Ur Leukocyte Esterase U Random Total Protein 34 H Ur Random Sodium 63.0 Urine Creatinine 90.39 COVID-19 (ELIER) COVID-19 Clin Com Quality Stroke Does the patient have a stroke diagnosis?: No VTE Prior VTE?: No VTE Risk Level:: Medical - moderate - high VTE Device Contraindication: Treatment Not Indicated VTE Drug Contraindication: N/A - Med Ordered Critical Care Time Critical Care Time (minutes): 90
[2021-08-04] MEDS: Heparin Sodium,Porcine 5,000 UNIT/ML VIAL 5000 UNIT SUBCUT (15:16)
[2021-08-04] MEDS: Magnesium Sulfate/H2O 2 GM/50 ML PIGGYBACK IV (20:45)
[2021-08-04] MEDS: LORazepam 2 MG/ML VIAL 0.5 MG IVPUSH (21:08)
[2021-08-04] MEDS: Acetaminophen 325 MG TABLET 650 MG PO (21:10)
[2021-08-05] VITALS (44 sets, daily range): BP systolic 61–145; BP diastolic 23–110; PULSE 45–102; RESP 8–26; TEMP 36–37.8; O2SAT 91–99; BMI 32.4
[2021-08-05] MEDS: Pantoprazole Sodium 40 MG/10 ML VIAL IVPUSH (05:10)
[2021-08-05 06:08] LABS: VBG Base Excess 0.2 mmol/L; VBG HCO3 23 mmol/L (22-26); VBG pCO2 31 mmHg; VBG pH 7.47 (7.32-7.43); VBG pO2 83 mmHg
[2021-08-05 06:11] LABS: Venous Blood Gas Refer to POC result
[2021-08-05 06:21] LABS: Hematocrit 31.5 % (42.0-52.0); Hemoglobin 10.1 g/dl (14.0-18.0); Mean Corpuscular HGB Conc 32.1 g/dl (31.0-36.0); Mean Corpuscular Volume 93.5 fL (80.0-98.0); Mean Platelet Volume 9.5 fL (9.4-12.4); Platelet Count 288 X10*3/uL (160-400); Red Blood Count 3.37 X10*6/uL (4.60-5.80); Red Cell Distribution Width 13.2 % (11.0-16.0); White Blood Count 9.5 X10*3/uL (4.8-10.8)
[2021-08-05 06:26] LABS: Anion Gap 14 (12-20); Blood Urea Nitrogen 17 mg/dL (9-16); Calcium 8.4 mg/dL (8.4-10.2); Carbon Dioxide 24 mmol/L (22-29); Chloride 104 mmol/L (96-108); Creatinine Clr Calc Pharmacy 60.5; Estimated Glomerular Filt Rate 54; Glucose Random 190 mg/dL (60-115); Magnesium 1.6 mg/dL (1.6-2.6); Phosphorus 2.1 mg/dL (2.7-4.5); Potassium 4.4 mmol/L (3.3-5.1); Sodium 138 mmol/L (135-145)
[2021-08-05 06:45] LABS: Procalcitonin 0.44 ng/mL
[2021-08-05] MEDS: Nystatin Powder 15 GM BOTTLE 1 APPL TOPICAL ×2 (07:17→22:33)
--- NOTE | 2021-08-05 08:15 | P.CDIC_ITS ---
CDI Concurrent Query Documentation Clarification: PHYSICIAN'S DOCUMENTATION REQUEST Date of Query: 08/05/21 0815 Patient Name: Kenneth Aragon Admit Date: 08/03/21 Dear Doctor, A review of the medical record indicates additional documentation may be needed. Please review below and update the documentation accordingly. Clinical Indicators Risk Factors/Clinical Indicators/Treatments ICU note 08/03 - Sepsis - hypotensive, tachycardic, tachypenia. Temp 100.6 WBC 15.4 RR 24 HR 107 Antibiotics given in Ed. Patient presented with possible UTI, has been treated at [facility] for UTI, lethargic, altered mental status. ICU note 08/04 - Septic shock unlikely, clinically doesnt seem infected. Please clarify which of the following most accurately describes the above abnormalities: Sepsis vs. SIRS or other: * Sepsis (resolved, treating, rule out) * Systemic manifestations of infection, with 2 or more SIRS criteria which include: -Fever > 100.4F or hypothermia < 96.8 F -Leukocytosis - WBC > 12,000 or leukopenia, WBC < 4,000 or > 10% bands -Tachycardia > 90 beats/minute -Tachypnea - RR > 20 breaths/minute or PaCO2 < 32mmHg (Source: [employer]ck Manual 2013) * Indicate the knows or suspected organism * Indicate the known or suspected underlying infection, such as UTI, pneumonia, or cellulitis * Indicate if a suspected bacteria infection of unknown source * Indicate if associated with an implanted device such as a F/C, PICC line, orthopedic hardware, etc * Indicate if there is associated organ dysfunction, such as renal or respiratory failure * SIRS due to a non-infectious source * Indicate the known or suspected etiology * Indicate if there is associated organ dysfunction, such as renal or respiratory failure * Other * Unable to determine Use of terms such as suspected, likely, concern for, or probable (associated with a specific diagnosis that is being evaluated, monitored, or treated as if it exists) are acceptable and can be coded in the inpatient setting, when documented at the time of discharge. Thank you, Myranda Degroot [facility], CDIS Extension: [phone] Please use your independent medical judgment in providing your response. THIS QUERY IS PART OF THE PERMANENT MEDICAL RECORD Provider Response: Other (Sepsis unlikely. Will clarify my note.) Other Diagnosis: Sepsis unlikely.
--- NOTE | 2021-08-05 10:33 | P.PNNP_ITS ---
Subjective Subjective Date of Service: 08/05/21 Principal diagnosis: LAUREN Interval history: Seen and examined, events noted Incr UOP and decr SCr Physical Exam Vital Signs: Vital Signs: Last Vital Signs Temp 100.0 F 08/05/21 08:00 Pulse 93 08/05/21 10:00 Resp 18 08/05/21 10:00 BP 93/55 L 08/05/21 10:00 Pulse Ox 94 08/05/21 10:00 Oxygen Flow Rate 10 08/03/21 15:41 BMI result Body Mass Index 32.4 Const: General: cooperative, no acute distress, alert and awake Nutritional Appearance: well nourished Orientation/consciousness: patient oriented x3 Limitations: no limitations HEENT: Head: Yes normal to inspection and Yes atraumatic Ears: hearing grossly normal bilaterally and external ears normal General nose exam: Normal external nose present, no nasal discharge noted and no epistaxis Face and sinus: Yes normal facial exam, No abrasion and No laceration Mouth: Normal oral and palatal mucosa present, no drooling and no muffled voice Eyes: General: appearance normal, both eyes and all related structures Periorbital: periorbital findings normal Eyelids: Yes eyelids normal Conjunctivae: conjunctivae normal Pupils: Equal, round and reactive pupils present EOM: EOMs intact bilaterally Neck: Neck: Yes normal visual inspection, Yes full ROM and Yes no lymphadenopathy Chest: Chest palpation & inspection: normal inspection of the chest Resp: Effort & Inspection: normal respiratory effort and able to speak in complete sentences Auscultation: clear to auscultation bilaterally Cardio: Rate: regular rate Rhythm: regular rhythm GI: Inspection: Yes normal to inspection : Other: patient is sitting in a wet depends adult diaper Neuro: General: patient oriented x3 and moves all extremities Cranial nerves: Yes Equal, round and reactive pupils present Cognition (Neuro): normal cognition Motor exam (neuro): 5/5 motor strength present throughout Sensory Exam: Normal double simultaneous stimulation for sensation Co ordination: [id number] test normal Extrem: General: Yes normal to inspection, Yes full ROM and Yes capillary refill normal Psych: Appearance: grossly normal Mental Status: mental status grossly normal Affect: normal affect Attitude: cooperative Thought process: Normal thought process present Thought content: Normal thought content present Insight: Good insight present (Psych) Objective Data Labs CBC & Chem 7: 08/05/21 06:00 08/05/21 06:00 Labs: Laboratory Results - last 24 hr 08/04/21 08/04/21 08/04/21 12:24 12:24 12:24 WBC RBC Hgb Hct MCV MCH MCHC RDW Plt Count MPV Absolute Nucleated RBC Nucleated RBC % (auto) VBG pH VBG pCO2 VBG pO2 VBG HCO3 VBG O2 Saturation VBG Base Excess Sodium Potassium Chloride Carbon Dioxide Anion Gap BUN Creatinine Estim Creat Clear Calc Estimated GFR Random Glucose Calcium Phosphorus Magnesium Procalcitonin U Random Total Protein 34 H Ur Random Sodium 63.0 Urine Creatinine 90.39 08/05/21 08/05/21 08/05/21 06:00 06:00 06:00 WBC 9.5 RBC 3.37 L Hgb 10.1 L Hct 31.5 L MCV 93.5 MCH 30.0 MCHC 32.1 RDW 13.2 Plt Count 288 MPV 9.5 Absolute Nucleated RBC 0.000 Nucleated RBC % (auto) 0.0 VBG pH VBG pCO2 VBG pO2 VBG HCO3 VBG O2 Saturation VBG Base Excess Sodium 138 Potassium 4.4 Chloride 104 Carbon Dioxide 24 Anion Gap 14 BUN 17 H Creatinine 1.33 Estim Creat Clear Calc 60.5 Estimated GFR 54 Random Glucose 190 H Calcium 8.4 Phosphorus 2.1 L Magnesium 1.6 Procalcitonin 0.44 U Random Total Protein Ur Random Sodium Urine Creatinine 08/05/21 06:00 WBC RBC Hgb Hct MCV MCH MCHC RDW Plt Count MPV Absolute Nucleated RBC Nucleated RBC % (auto) VBG pH 7.47 H VBG pCO2 31 VBG pO2 83 VBG HCO3 23 VBG O2 Saturation 96.0 VBG Base Excess 0.2 Sodium Potassium Chloride Carbon Dioxide Anion Gap BUN Creatinine Estim Creat Clear Calc Estimated GFR Random Glucose Calcium Phosphorus Magnesium Procalcitonin U Random Total Protein Ur Random Sodium Urine Creatinine Microbiology Microbiology Results: Microbiology 08/03/21 18:06 Blood - Venous Blood Culture - Preliminary No growth after 24 hours. 08/03/21 16:30 Blood - Venous Blood Culture - Preliminary No growth after 24 hours. Procedures Date of Service Date of Service: 08/05/21 Assessment & Plan Assessment and plan (1) Acute renal failure: Status: Acute (2) Metabolic encephalopathy: Status: Acute (3) Altered mental state: Status: Acute (4) Acute respiratory failure: Status: Acute (5) Diverticulitis: Status: Acute (6) Hyperkalemia: Status: Acute (7) Alcohol abuse: Status: Acute (8) Anemia: Status: Acute (9) Fungal dermatitis: Status: Acute Plan 1. Non-Oliguric LAUREN: given the rapid recovery this is most c/w renal hyopperfusion--ischemic ATN 2. Low BPs: r/o adrenalinsuff REC: cont IVF, check am cortisol, start midrdine; avoid Noxins; track renalfunc Time Spent With Patient Time: Total time spent is greater than 50% in coordination of care (as documented) at patient's floor/unit and/or counseling patient: Progress Note: Quality Stroke Does the patient have a stroke diagnosis?: No
--- NOTE | 2021-08-05 10:58 | P.CDIC_ITS ---
CDI Concurrent Query Documentation Clarification: PHYSICIAN'S DOCUMENTATION REQUEST Date of Query: 08/05/21 1058 Patient Name: Kenneth Aragon Admit Date: 08/03/21 Dear Doctor, A review of the medical record indicates additional documentation may be needed. Please review below and update the documentation accordingly. Clinical Indicators: Risk Factors/Clinical Indicators/Treatments LABS: 08/03 - magnesium 11.2 H IV magnesium sulfate Lab findings: Hypermagnesemia or other possible dx.: * Yes, [ ] is a valid diagnosis for this patient * No, [ ] is a not a valid diagnosis for this patient * Other (please specify) * Unable to determine Use of terms such as suspected, likely, concern for, or probable (associated with a specific diagnosis that is being evaluated, monitored, or treated as if it exists) are acceptable and can be coded in the inpatient setting, when documented at the time of discharge. Thank you, Myranda Degroot [facility] [place], CDIS Extension: [phone] Please use your independent medical judgment in providing your response. THIS QUERY IS PART OF THE PERMANENT MEDICAL RECORD Provider Response: Other Other Diagnosis: Unable to determine
[2021-08-05] MEDS: Enoxaparin Sodium 40 MG/0.4 ML SYRINGE SUBCUT (11:00)
[2021-08-05] MEDS: Midodrine HCl 5 MG TABLET PO (11:01)
--- NOTE | 2021-08-05 11:37 | MHC.CLN ---
F/U PT EXTUBATED; A&OX2 RECOMMEND 2000DM 2GM NA DIET DISCUSSED AT ROUNDS WITH MD MONITOR PO INTAKE CLOSELY
[2021-08-05] MEDS: OLANZapine 10 MG VIAL 5 MG IM (12:41)
--- NOTE | 2021-08-05 12:43 | PC.NURSE ---
Addendum entered by Марина Fitzgerald RN 08/05/21 16:52: Patient continuing to remain agitated and combative with staff - second dose of Zyprexa 10mg IM administered at 1403 and patient started on Precedex gtt. Moderate sedation required for PICC line insertion at bedside - see separate paperwork. PICC line to left upper arm placed and oozing blood - pressure dressing applied for five minutes per Dr Miguel and bleeding stopped - dressing changed, C/D/I. Lovenox administered at 1100 - plan for dialysis catheter in left femoral to be removed tomorrow 08/[address] Miguel. Patient continuing to remain agitated and combative with staff after moderate sedation - third dose of Zyprexa 10mg IM administered at 1510 and Precedex gtt maxed out. Levophed gtt restarted during moderate sedation and titrated per protocol. VO Dr Miguel for bilateral wrist restraints for safety. Current vitals HR 75, RR 15, BP 127/67, 97% on RA. Sitter at bedside. Original Note: Patient yelling out, getting out of bed, agitated, unable to redirect, pulling at lines. Patient stating just give me a ride let me lay on the couch . Zyprexa 5mg PO ordered but unable to administer - patient refusing and forming a first with his hands when staff come near him. Zyprexa 5mg IM ordered and administered as medication restraint. Current vitals HR 93, RR 18, BP 93/66, 98% on RA. Sitter at bedside.
--- NOTE | 2021-08-05 13:13 | PM.CCPN ---
Subjective Subjective Date of Service: 08/05/21 Interval History: Mr. Aragon was admitted to ICU on August 03 with acute renal failure requiring urgent HD. The patient is a 65 year old male with reported PMHx of: Alcohol abuse COPD DM Diastolic heart failure HLD Hypertension Nonrheumatic mod-severe aortic stenosis (last echo 07/28/21) Obesity Chronic OLGUIN. Most recently, the patient has been living at a SNF undergoing rehab after a fall with left rib injury.? The current admission is the patient?s 6th admission to [facility] this year.? He was admitted to [facility] 3 times last year. Last admission here was 07/21- for abdom pain, which was thought 2? diverticulitis.? The patient had hypotension, LAUREN with creat 3.6, and bacteremia with VRE enterococcus faecalis and enterococcus faecium (resistant to ampicillin and vanco) and coag negative staph.? Was seen by ID, recommended Zosyn while inpatient which was completed, and Augmentin for outpatient 7 days. ?GI rec further workup w colonoscopy 10-12 weeks after the acute diverticulitis resolved. HISTORY OF PRESENT ILLNESS: ?The patient was BIBA to the ED on August 03 bec of AMS since 10AM.? Reportedly, he had recently developed a UTI.? In the ED, the patient was reportedly alert and oriented with an extensive negative ROS.? HR was 98, BP 94/68, RR 20, Sat 92% on NC oxygen.? Temp was 100.4?.? The patient was in no distress, with an unremarkable general physical exam. Labs in the ED were delayed for hours because of inability to find a vein.? Finally, Dr. Berry placed a TLC in the right groin.? Labs were notable for a WBC of 15, BUN/creatinine were 51/12 (were 4/0.9 on 07/24), potassium was 5.7, bicarb was 17, glucose was 116.? Lactic acid was negative.? Screening u/a was unremarkable.? CXR was negative.? CT abdomen showed no hydronephrosis or sign of obstructive uropathy, or any other explanation for his LAUREN.? It was noted on the patient?s Med Rec that he was reported to be taking gabapentin. The patient was given 3L IVF and treated for hyperkalemia.? He was also given abx.? Repeat labs were unimproved with potassium up to 6.3.? The patient reportedly developed an altered mental status, hypotension, and acute respiratory distress.? The patient was therefore admitted to the ICU for acute hemodialysis.? On arrival to the ICU, he was intubated on arrival for airway control. Subsequently, central access for a dialysis catheter was attempted. ?The femoral TLC was exchanged over a wire for a temporary dialysis catheter.? But that dialysis catheter didn?t flow well, so internal jugular catheterization was attempted on both sides.? Both veins were cannulated easily, but the wire was unable to be passed more than a couple of inches from either side.? So a new temporary dialysis catheter was placed in left groin, and the patient was dialyzed through that catheter early yesterday morning.? Abx were not continued, nor was he given gabapentin.? Notably, throughout the night, the patient had good urine output. Renal indices post dialysis yesterday morning were down to 23/4.3.? The propofol was turned off and the patient was subsequently extubated without incident.? The right femoral dialysis catheter was removed without incident. ?The patient continued to make good urine. Yesterday evening the patient became progressively altered, disoriented, and mildly agitated.? Over this morning, he is grossly disoriented and has become increasingly agitated.? He is asking for his aunt and asking us to please take him home. ?The patient has been afebrile since the ED.? Heart rate is 100, blood pressure 102/57.? Breathing easy w Sat up to 99% on room air.? No JVD at 30?.? Chest CTA, w normal exp phase.? Heart rate and rhythm are regular, with normal-sounding S1 and S2, with no murmur or gallops.? The abdomen is benign.? He has no peripheral edema. LABORATORY DATA:? Below.? Notably, white count down to 9, BUN/creatinine are down to 17/1.3, phos 2.1. IMPRESSION: 1. LAUREN.? Cause remains unclear.? Could have been ATN 2? hypotension, altho if so, it resolved much faster than usual.? Less likely would be AIN from Augmentin.? Regardless, the patient is making excellent urine, renal indices are almost back to normal. ?Won?t require further HD.? We?ll take out his left femoral HD catheter. 2. AMS.? What exactly happened the day of admission is not clear, especially given the fact that according to the ED notes, the patient's mental status was in fact normal.? Given his LAUREN, it?s possible that gabapentin was responsible for his initial AMS at the SNF.? With a BUN of only 55, uremia would seem an unlikely cause.? Regardless, after treatment in the ED, his mental status deteriorated for some reason, such that he required intubation for airway protection. 3. Hypotension in the ED.? The cause is similarly unclear.? His renal ratio was inconsistent with hypovolemia, and reportedly he was making urine.? His white count was elevated and he did have a low-grade temperature, but his lactate was negative and his cultures are so far negative.? So septic shock was not the likely cause. 4. Acute respiratory failure.? Resolved. 5. ID:? White count was elevated and he had a low-grade temp in the ED, but lactic acid was negative and clinically didn?t seem infected.? Cultures are negative.? Based on his A-a gradient, he certainly didn?t have pneumonia.? Abx given empirically in the ED were not continued.? He?s been afebrile throughout and his WBC is now normal.? Bottom line:? No evidence of infection, and he?s not septic. 6. Acute agitated delirium.? Unclear etiology.? No evidence in his labs of a current metabolic etiology.? Looking thru his Med Rec, he?s reportedly on gabapentin, and that might be for behavior control.? If so, we?re holding the gabapentin now.? He?s also on oxycodone 5mg q8prn.? It?s possible he?s having opiate withdrawal.? But he?s not tachypneic.? We?ve given him IM Zyprexa, with limited effect.? D/w pharmacy. ?We?ve started him on Precedex, and we?re up to 1.5ug.? We?ll try to get some Lamictal into him. 7. The magnesium level on admission was reported to be 11.2.? Given that I?ve never heard of a magnesium level even remotely close to that (nor has Dr. Garcia from nephrology, nor the process laboratory specialist), I ignored it during my assessment of the patient yesterday.? Today I was asked about that Mg level by our documentation specialists and did further investigation, which revealed: ? ??At about 16:34 on the day of admission, a hemolyzed blood specimen from this patient in the ED was received by the lab and not run.? A Mg level run today on that specimen came back at 1.2.? At 16:49 on that date, 2G of MgSO4 was removed from the ED Pyxis and presumably hung on the patient.? At 18:06, the original lab specimen was redrawn, and that came back with a Mg level of 11.2.? At that time, that specimen was rerun by the lab and the Mg level of 11 was confirmed.? (I don?t know who that level was reported to, nor what they did about it.) ?Finally, there was a subsequent lab draw that night at 21:09 (before dialysis).? A Mg level was not requested on that specimen. ?The lab ran a magnesium level on that specimen today and it came back at 1.56.? So with good certainty, it can be said that the 18:06 specimen that came back with a magnesium level of 11.2 was contaminated by a concurrently running magnesium sulfate infusion.? Ie. the patient was never hypermagnasemic. ADDENDUM:? The patient required heavy/unconscious propofol sedation to place a PICC line.? I assisted Dr. Galaviz by personally giving intermittent bolus propofol while Dr. Galaviz did the procedure.? Total additional time: 40 min. Critical care time (including the above and mult visits to the bedside for delirium control):? 90+ min. Critical Care Time (minutes): 90 Physical Exam Vital Signs: Vital Signs: Last Vital Signs Temp 99.7 F 08/05/21 12:00 Pulse 100 08/05/21 13:00 Resp 16 08/05/21 13:00 BP 102/57 L 08/05/21 13:00 Pulse Ox 97 08/05/21 13:00 Oxygen Flow Rate 10 08/03/21 15:41 BMI result Body Mass Index 32.4 Objective Data Labs CBC & Chem 7: 08/05/21 06:00 08/05/21 06:00 Labs: Laboratory Results - last 24 hr 08/05/21 08/05/21 08/05/21 06:00 06:00 06:00 WBC 9.5 RBC 3.37 L Hgb 10.1 L Hct 31.5 L MCV 93.5 MCH 30.0 MCHC 32.1 RDW 13.2 Plt Count 288 MPV 9.5 Absolute Nucleated RBC 0.000 Nucleated RBC % (auto) 0.0 VBG pH VBG pCO2 VBG pO2 VBG HCO3 VBG O2 Saturation VBG Base Excess Sodium 138 Potassium 4.4 Chloride 104 Carbon Dioxide 24 Anion Gap 14 BUN 17 H Creatinine 1.33 Estim Creat Clear Calc 60.5 Estimated GFR 54 Random Glucose 190 H Calcium 8.4 Phosphorus 2.1 L Magnesium 1.6 Procalcitonin 0.44 08/05/21 06:00 WBC RBC Hgb Hct MCV MCH MCHC RDW Plt Count MPV Absolute Nucleated RBC Nucleated RBC % (auto) VBG pH 7.47 H VBG pCO2 31 VBG pO2 83 VBG HCO3 23 VBG O2 Saturation 96.0 VBG Base Excess 0.2 Sodium Potassium Chloride Carbon Dioxide Anion Gap BUN Creatinine Estim Creat Clear Calc Estimated GFR Random Glucose Calcium Phosphorus Magnesium Procalcitonin Microbiology Microbiology Results: Microbiology 08/03/21 18:06 Blood - Venous Blood Culture - Preliminary No growth after 24 hours. 08/03/21 16:30 Blood - Venous Blood Culture - Preliminary No growth after 24 hours. Quality Stroke Does the patient have a stroke diagnosis?: No VTE Prior VTE?: No VTE Risk Level:: Medical - moderate - high VTE Device Contraindication: Treatment Not Indicated VTE Drug Contraindication: N/A - Med Ordered Critical Care Time Critical Care Time (minutes): 90
[2021-08-05] MEDS: OLANZapine 10 MG VIAL IM ×2 (14:03→15:10)
[2021-08-05] MEDS: dexmedeTOMIDidine HCL/NS 400 MCG/100 ML INFUS..BTL 23.5 MCG IVCONT (14:12)
[2021-08-05] MEDS: propofoL 200 MG/20 ML VIAL IVPUSH (14:15)
[2021-08-05] MEDS: propofoL 1,000 MG/100 ML VIAL 150 MG IVCONT (14:29)
[2021-08-05] MEDS: Potassium Phosphate/NS 15 MMOL/250 ML PLAST..BAG 62.5 MMOL IV (15:17)
[2021-08-05] MEDS: Magnesium Sulfate/H2O 2 GM/50 ML PIGGYBACK IV (15:17)
[2021-08-05] MEDS: dexmedeTOMIDidine HCL/NS 400 MCG/100 ML INFUS..BTL 35.25 MCG IVCONT (16:17)
[2021-08-05] MEDS: fentaNYL citrate/PF 100 MCG/2 ML VIAL 50 MCG IVPUSH (17:40)
[2021-08-05 18:29] LABS: Cortisol Random 12.9 ug/dL
[2021-08-05] MEDS: dexmedeTOMIDidine HCL/NS 400 MCG/100 ML INFUS..BTL IVCONT (20:22)
[2021-08-06] VITALS (18 sets, daily range): BP systolic 86–128; BP diastolic 40–65; PULSE 59–99; RESP 16–22; TEMP 36.8–37.4; O2SAT 90–96; BMI 31.9
[2021-08-06 05:20] LABS: Venous Blood Gas Refer to POC result
[2021-08-06 05:21] LABS: VBG Base Excess 4.1 mmol/L; VBG HCO3 27 mmol/L (22-26); VBG pCO2 38 mmHg; VBG pH 7.47 (7.32-7.43); VBG pO2 78 mmHg
[2021-08-06] MEDS: Pantoprazole Sodium 40 MG/10 ML VIAL IVPUSH (05:25)
[2021-08-06 05:41] LABS: Hematocrit 30.3 % (42.0-52.0); Hemoglobin 9.4 g/dl (14.0-18.0); Mean Corpuscular Hemoglobin 29.5 pg (27.0-33.0); Platelet Count 255 X10*3/uL (160-400); Red Blood Count 3.19 X10*6/uL (4.60-5.80); Red Cell Distribution Width 13.1 % (11.0-16.0)
[2021-08-06 05:56] LABS: Anion Gap 16 (12-20); Blood Urea Nitrogen 12 mg/dL (9-16); Calcium 8.7 mg/dL (8.4-10.2); Carbon Dioxide 26 mmol/L (22-29); Chloride 106 mmol/L (96-108); Creatinine Clr Calc Pharmacy 96.2; Estimated Glomerular Filt Rate > 60; Glucose Random 147 mg/dL (60-115); Magnesium 1.8 mg/dL (1.6-2.6); Phosphorus 3.3 mg/dL (2.7-4.5); Potassium 4.5 mmol/L (3.3-5.1); Sodium 143 mmol/L (135-145)
[2021-08-06] MEDS: lamoTRIgine 25 MG TABLET 50 MG PO (07:41)
[2021-08-06] MEDS: hydrOXYzine HCL 50 MG TABLET PO ×2 (07:41→20:11)
[2021-08-06] MEDS: busPIRone HCl 5 MG TABLET PO ×2 (07:42→20:05)
[2021-08-06] MEDS: Midodrine HCl 5 MG TABLET PO ×3 (07:42→20:05)
[2021-08-06] MEDS: Nystatin Powder 15 GM BOTTLE 1 APPL TOPICAL ×2 (07:45→21:24)
[2021-08-06] MEDS: HYDROmorphone HCl 0.5 MG/0.5 ML SYRINGE IVPUSH (08:41)
[2021-08-06] MEDS: dexmedeTOMIDidine HCL/NS 400 MCG/100 ML INFUS..BTL 9.4 MCG IVCONT (09:15)
--- NOTE | 2021-08-06 10:00 | PC.NURSE ---
DIALYSIS PORT TO LEFT GROIN REMOVED BY MD. OCCULSIVE DRESSING APPLIED BY RN. RUBIN REMOVED AT 1000 BY RN PER MD DISCUSSED IN ROUNDS. WILL CONTINUE TO MONITOR.
--- NOTE | 2021-08-06 10:34 | P.PNNP_ITS ---
Subjective Subjective Date of Service: 08/06/21 Principal diagnosis: LAUREN Interval history: Seen and examined, events noted Physical Exam Vital Signs: Vital Signs: Last Vital Signs Temp 99.3 F 08/06/21 09:00 Pulse 69 08/06/21 10:00 Resp 18 08/06/21 10:00 BP 112/49 L 08/06/21 10:00 Pulse Ox 95 08/06/21 10:00 Oxygen Flow Rate 10 08/03/21 15:41 BMI result Body Mass Index 31.9 Const: General: cooperative, no acute distress, alert and awake Nutritional Appearance: well nourished Orientation/consciousness: patient oriented x3 Limitations: no limitations HEENT: Head: Yes normal to inspection and Yes atraumatic Ears: hearing grossly normal bilaterally and external ears normal General nose exam: Normal external nose present, no nasal discharge noted and no epistaxis Face and sinus: Yes normal facial exam, No abrasion and No laceration Mouth: Normal oral and palatal mucosa present, no drooling and no muffled voice Eyes: General: appearance normal, both eyes and all related structures Periorbital: periorbital findings normal Eyelids: Yes eyelids normal Conjunctivae: conjunctivae normal Pupils: Equal, round and reactive pupils present EOM: EOMs intact bilaterally Neck: Neck: Yes normal visual inspection, Yes full ROM and Yes no lymphadeno yulissa Chest: Chest palpation & inspection: normal inspection of the chest Resp: Effort & Inspection: normal respiratory effort and able to speak in complete sentences Auscultation: clear to auscultation bilaterally Cardio: Rate: regular rate Rhythm: regular rhythm GI: Inspection: Yes normal to inspection : Other: patient is sitting in a wet depends adult diaper Neuro: General: patient oriented x3 and moves all extremities Cranial nerves: Yes Equal, round and reactive pupils present Cognition (Neuro): normal cognition Motor exam (neuro): 5/5 motor strength present throughout Sensory Exam: Normal double simultaneous stimulation for sensation Coordination: [id number] test normal Extrem: General: Yes normal to inspection, Yes full ROM and Yes capillary refill normal Psych: Appearance: grossly normal Mental Status: mental status grossly normal Affect: normal affect Attitude: cooperative Thought process: Normal thought process present Thought content: Normal thought content present Insight: Good insight present (Psych) Objective Data Labs CBC & Chem 7: 08/06/21 05:09 08/06/21 05:09 Labs: Laboratory Results - last 24 hr 08/05/21 08/06/21 08/06/21 06:00 05:09 05:09 WBC 6.0 RBC 3.19 L Hgb 9.4 L Hct 30.3 L MCV 95.0 MCH 29.5 MCHC 31.0 RDW 13.1 Plt Count 255 MPV 10.0 Absolute Nucleated RBC 0.000 Nucleated RBC % (auto) 0.0 VBG pH VBG pCO2 VBG pO2 VBG HCO3 VBG O2 Saturation VBG Base Excess Sodium 143 Potassium 4.5 Chloride 106 Carbon Dioxide 26 Anion Gap 16 BUN 12 Creatinine 0.83 Estim Creat Clear Calc 96.2 Estimated GFR > 60 Random Glucose 147 H Calcium 8.7 Phosphorus 3.3 Magnesium 1.8 Random Cortisol 12.9 08/06/21 05:12 WBC RBC Hgb Hct MCV MCH MCHC RDW Plt Count MPV Absolute Nucleated RBC Nucleated RBC % (auto) VBG pH 7.47 H VBG pCO2 38 VBG pO2 78 VBG HCO3 27 H VBG O2 Saturation 95.0 VBG Base Excess 4.1 Sodium Potassium Chloride Carbon Dioxide Anion Gap BUN Creatinine Estim Creat Clear Calc Estimated GFR Random Glucose Calcium Phosphorus Magnesium Random Cortisol Microbiology Microbiology Results: Microbiology 08/03/21 18:06 Blood - Venous Blood Culture - Preliminary No growth after 48 hours. 08/03/21 16:30 Blood - Venous Blood Culture - Preliminary No growth after 48 hours. Procedures Date of Service Date of Service: 08/06/21 Assessment & Plan Assessment and plan (1) Acute renal failure: Status: Acute (2) Metabolic encephalopathy: Status: Acute (3) Altered mental state: Status: Acute (4) Acute respiratory failure: Status: Acute (5) Diverticulitis: Status: Acute (6) Hyperkalemia: Status: Acute (7) Alcohol abuse: Status: Acute (8) Anemia: Status: Acute (9) Fungal dermatitis: Status: Acute Plan 1. Non-Oliguric LAUREN: given the rapid recovery this is most c/w renal hyopperfus ion--ischemic ATN 2. Low BPs: r/o adrena linsuff episode of hypermag--lab error REC: cont IVF, check am cortisol, start midrdine; avoid Noxins; track renalfunc Time Spent With Patient Time: Total time spent is greater than 50% in coordination of care (as documented) at patient's floor/unit and/or counseling patient: Progress Note: Quality Stroke Does the patient have a stroke diagnosis?: No
--- NOTE | 2021-08-06 10:42 | MHC.CLN ---
F/U PT WITH INCREASED NUTRITION RISK R/T LOW CHRISTIE SCORE DIET RX: 2000DM 2GM NA DIET -APPROPRIATE PT IS EATING PER NSG; PT IS A SLOW EATER MONITOR PO INTAKE CLOSELY
[2021-08-06] MEDS: Magnesium Sulfate/H2O 2 GM/50 ML PIGGYBACK IV (10:58)
--- NOTE | 2021-08-06 13:47 | P.PNCC_ITS ---
Subjective Subjective Date of Service: 08/06/21 Interval History: Mr. Aragon was admitted to ICU on August 03 with acute renal failure requiring urgent HD. The patient is a 65 year old male with reported PMHx of: Alcohol abuse COPD DM Diastolic heart failure HLD Hypertension Nonrheumatic mod-severe aortic stenosis (last echo 07/28/21) Obesity Chronic OLGUIN. Most recently, the patient has been living at a SNF undergoing rehab after a fall with left rib injury.? When not at the SNF he lives alone.? NOK and HCP is his apynmc-md-fas (brother?s ) Laura.? The current admission is the patient?s 6th admission to [facility] [place] this year.? He was admitted to [facility] [place] 3 times last year. Last admission here was 07/21- for abdom pain, which was thought 2? diverticulitis.? The patient had hypotension, LAUREN with creat 3.6, and bacteremia with VRE enterococcus faecalis and enterococcus faecium (resistant to ampicillin and vanco) and coag negative staph.? Was seen by ID, recommended Zosyn while inpatient which was completed, and Augmentin for outpatient 7 days. ?GI rec further workup w colonoscopy 10-12 weeks after the acute diverticulitis resolved. HISTORY OF PRESENT ILLNESS:? The patient was BIBA to the ED on August 03 bec of AMS since 10AM.? Reportedly, he had recently developed a UTI.? In the ED, the patient was reportedly alert and oriented with an extensive negative ROS.? HR was 98, BP 94/68, RR 20, Sat 92% on NC oxygen.? Temp was 100.4?.? The patient was in no distress, with an unremarkable general physical exam. Labs in the ED were delayed for hours because of inability to find a vein.? (Over the past admissions, venous access has been notoriously difficult.)? Finally, Dr. Berry placed a TLC in the right groin.? Labs were notable for a WBC of 15, BUN/creatinine were 51/12 (were 4/0.9 on 07/24), potassium was 5.7, bicarb was 17, glucose was 116.? Lactic acid was negative.? Screening u/a was unremarkable.? CXR was negative.? CT abdomen showed no hydronephrosis or sign of obstructive uropathy, or any other explanation for his LAUREN.? It was noted on the patient?s Med Rec that he was reported to be taking gabapentin. The patient was given 3L IVF and treated for hyperkalemia.? He was also given abx.? Repeat labs were unimproved with potassium up to 6.3.? The patient reportedly developed an altered mental status, hypotension, and acute respiratory distress.? The patient was therefore admitted to the ICU for acute hemodialysis.? On arrival to the ICU, he was intubated for airway control. Subsequently, central access for a dialysis catheter was attempted. ?The femoral TLC was exchanged over a wire for a temporary dialysis catheter.? But that dialysis catheter didn?t flow well, so internal jugular catheterization was attempted on both sides.? Both veins were cannulated easily, but the wire was unable to be passed more than a couple of inches from either side.? So a new temporary dialysis catheter was placed in left groin, and the patient was dialyzed through that catheter early on 08/04.? Abx were not continued, nor was he given gabapentin.? Notably, throughout that night, the patient had good urine output. Renal indices post dialysis were down to 23/4.3.? The propofol was turned off and the patient was subsequently extubated without incident.? The right femoral dialysis catheter was removed without incident.? The patient continued to make good urine, and his renal indices have continued to improve. That night, the patient became progressively altered, disoriented, and mildly agitated.? Over the day yesterday, his agitated delirium worsened dramatically, such that he required tx with Precedex and IM Zyprexa.? He needed heavy IV sedation with propofol for placement of a PICC line.? Over last night, he became more calm, altho still quite rude and belligerent. This morning, he was able to take his meds and we gave him his Buspar, and hydroxyzine, and we also started him on Lamictal 50 mg daily.? He?s much more calm after that, and we were able to turn the Precedex off.? He?s still rude, cursing at the nurses, and telling me that he wants to kill me.? Still very disoriented.? He?s afebrile.? Heart rate is down to 70?s, SR.? Blood pressure 98/56, on midodrine.? Breathing easy w Sat mid 90?s on room air.? No JVD at 30?.? Chest CTA, w normal exp phase.? Heart rate and rhythm are regular, with normal-sounding S1 and S2, with no murmur or gallops.? The abdomen is benign.? He has no peripheral edema.? We took the left femoral dialysis catheter out of his groin. LABORATORY DATA:? Below.? Notably, white count down to 6, BUN/creatinine are down to 12/0.8. IMPRESSION: 1. LAUREN.? Cause remains unclear.? Could have been ATN 2? hypotension, altho if so, it resolved much faster than would have been expected.? Less likely would be AIN from Augmentin.? Regardless, the patient is making excellent urine, renal indices are back to normal. ?Won?t require further HD. 2. AMS.? What exactly happened the day of admission is not clear, especially given the fact that according to the ED notes, the patient's mental status was in fact normal on arrival to the ED.? Given his LAUREN, it?s possible that gabapentin was responsible for his initial AMS at the SNF.? With a BUN of only 55, uremia would seem an unlikely cause.? Regardless, after treatment in the ED, his mental status deteriorated for some reason, such that he required intubation for airway protection. 3. Hypotension in the ED.? The cause is similarly unclear.? His renal ratio was inconsistent with hypovolemia, and reportedly he was making urine.? His white count was elevated and he did have a low-grade temperature, but his lactate was negative and his cultures are so far negative.? So septic shock was not the likely cause. 4. Acute respiratory failure.? Resolved. 5. ID:? White count was elevated and he had a low-grade temp in the ED, but lactic acid was negative and clinically didn?t seem infected.? Cultures are negative.? Based on his A-a gradient, he certainly didn?t have pneumonia.? Abx given empirically in the ED were not continued.? He?s been afebrile throughout and his WBC is now normal.? Bottom line:? No evidence of infection, and he?s not septic. 6. Acute agitated delirium.? Unclear etiology.? No evidence in his labs of a current metabolic etiology.? Looking thru his Med Rec, he?s reportedly on gabapentin, and I suspect that was for behavior control.? If so, we?re holding the gabapentin now bec of his renal failure episode.? He?s also on oxycodone 5mg q8prn.? It?s possible he?s having opiate withdrawal.? But he?s not tachypneic.? We gave him IM Zyprexa yesterday, with limited effect.? Lamictal today seems to be working much, much better. By report, the patient has had behavioral problems during previous visits to this hospital, so this is nothing new. S ounds like he needs to be on some kind of antipsychotic chronically. 7. DVT prophylaxis.? Written for Lovenox, to start back up today at 2pm. Stable for transfer to [facility].? We will sign out to the hospitalists. Critical Care Time (minutes): 0 Physical Exam Vital Signs: Vital Signs: Last Vital Signs Temp 99.3 F 08/06/21 09:00 Pulse 70 08/06/21 13:00 Resp 18 08/06/21 13:00 BP 90/58 L 08/06/21 13:00 Pulse Ox 93 08/06/21 13:00 Oxygen Flow Rate 10 08/03/21 15:41 BMI result Body Mass Index 31.9 Objective Data Labs CBC & Chem 7: 08/06/21 05:09 08/06/21 05:09 Labs: Laboratory Results - last 24 hr 08/05/21 08/06/21 08/06/21 06:00 05:09 05:09 WBC 6.0 RBC 3.19 L Hgb 9.4 L Hct 30.3 L MCV 95.0 MCH 29.5 MCHC 31.0 RDW 13.1 Plt Count 255 MPV 10.0 Absolute Nucleated RBC 0.000 Nucleated RBC % (auto) 0.0 VBG pH VBG pCO2 VBG pO2 VBG HCO3 VBG O2 Saturation VBG Base Excess Sodium 143 Potassium 4.5 Chloride 106 Carbon Dioxide 26 Anion Gap 16 BUN 12 Creatinine 0.83 Estim Creat Clear Calc 96.2 Estimated GFR > 60 Random Glucose 147 H Calcium 8.7 Phosphorus 3.3 Magnesium 1.8 Random Cortisol 12.9 08/06/21 05:12 WBC RBC Hgb Hct MCV MCH MCHC RDW Plt Count MPV Absolute Nucleated RBC Nucleated RBC % (auto) VBG pH 7.47 H VBG pCO2 38 VBG pO2 78 VBG HCO3 27 H VBG O2 Saturation 95.0 VBG Base Excess 4.1 Sodium Potassium Chloride Carbon Dioxide Anion Gap BUN Creatinine Estim Creat Clear Calc Estimated GFR Random Glucose Calcium Phosphorus Magnesium Random Cortisol Microbiology Microbiology Results: Microbiology 08/03/21 18:06 Blood - Venous Blood Culture - Preliminary No growth after 48 hours. 08/03/21 16:30 Blood - Venous Blood Culture - Preliminary No growth after 48 hours. Quality Stroke Does the patient have a stroke diagnosis?: No VTE Prior VTE?: No VTE Risk Level:: Medical - moderate - high VTE Device Contraindication: Treatment Not Indicated VTE Drug Contraindication: N/A - Med Ordered
[2021-08-06] MEDS: Enoxaparin Sodium 40 MG/0.4 ML SYRINGE SUBCUT (13:59)
--- NOTE | 2021-08-06 15:13 | MHC.CM.PN ---
Pt will be transferred out of ICU today - behaviors have been better and pt seems to be returning to baseline level of functioning. Clinical updates sent to [facility] in anticipation of a return in 1-2 days. CM to follow
[2021-08-06] MEDS: Tamsulosin HCL 0.4 MG CAPSULE PO (16:30)
[2021-08-06] MEDS: Folic Acid 1 MG TABLET PO (16:30)
[2021-08-06] MEDS: Omeprazole 20 MG CAPSULE.DR PO (16:30)
[2021-08-06] MEDS: oxyCODONE HCl Immed Release 5 MG TABLET PO ×2 (17:46→23:41)
[2021-08-06] MEDS: Thiamine HCL 100 MG TABLET PO (20:05)
[2021-08-06] MEDS: Atorvastatin Calcium 10 MG TABLET PO (20:05)
[2021-08-06] MEDS: Aspirin Enteric Coated 81 MG TABLET.DR PO (20:05)
[2021-08-07 04:00] VITALS: BP 117/36; PULSE 88; RESP 25
[2021-08-07] MEDS: hydrOXYzine HCL 50 MG TABLET PO ×2 (04:09→20:03)
[2021-08-07 04:12] VITALS: BP 117/36; PULSE 84; RESP 18; TEMP 36.8; O2SAT 95
--- NOTE | 2021-08-07 04:47 | PC.NURSE ---
CARE ASSUMED 23:15..AWAKE..ALERT..COVERSES...ORIENTED TO PERSON...DISORIENTED TO RECENT EVENTS/PLACE...RESPIRATIONS EASY ON ROOM AIR..DRESSING TO GROIN DRY/INTACT...OXYCODONE PER MAR FOR CHRONIC SHOULDER/ARM/BACK PAIN...ATARAX PER MAR FOR ANXIETY....NSR..NO ECTOPY...VOIDING CONCENTRATED URINE IN URINAL
[2021-08-07 05:16] VITALS: BMI 31.9
[2021-08-07] MEDS: Omeprazole 20 MG CAPSULE.DR PO ×2 (05:40→17:12)
[2021-08-07] MEDS: oxyCODONE HCl Immed Release 5 MG TABLET PO ×4 (05:41→23:45)
[2021-08-07 06:14] LABS: Anion Gap 15 (12-20); Blood Urea Nitrogen 15 mg/dL (9-16); Calcium 8.3 mg/dL (8.4-10.2); Carbon Dioxide 27 mmol/L (22-29); Chloride 105 mmol/L (96-108); Creatinine Clr Calc Pharmacy 87.7; Estimated Glomerular Filt Rate > 60; Glucose Random 147 mg/dL (60-115); Magnesium 1.7 mg/dL (1.6-2.6); Phosphorus 3.5 mg/dL (2.7-4.5); Potassium 4.1 mmol/L (3.3-5.1); Sodium 143 mmol/L (135-145)
[2021-08-07 08:50] VITALS: BP 118/60; PULSE 89; RESP 19; TEMP 36.7; O2SAT 96
[2021-08-07] MEDS: Midodrine HCl 5 MG TABLET PO ×3 (08:59→20:02)
[2021-08-07] MEDS: lamoTRIgine 25 MG TABLET 50 MG PO (08:59)
[2021-08-07] MEDS: busPIRone HCl 5 MG TABLET PO ×2 (09:00→20:04)
[2021-08-07] MEDS: Nystatin Powder 15 GM BOTTLE 1 APPL TOPICAL ×2 (09:00→20:07)
--- NOTE | 2021-08-07 11:18 | PM.DS ---
DS: Providers Provider Date of Service: 08/09/21 Date of admission: 08/03/21 23:17 Primary care physician: Jaylen Cummings MD Consults: 08/04/21 09:28 Consult to Nephrology Stat Consulting Provider: Fabian Garcia Reason for consultation: Acute Renal Failure DS: Diagnosis Discharge Diagnosis (1) Acute renal failure: Status: Acute (2) Metabolic encephalopathy: Status: Acute (3) Altered mental state: Status: Acute (4) Acute respiratory failure: Status: Acute (5) Diverticulitis: Status: Acute (6) Hyperkalemia: Status: Acute (7) Alcohol abuse: Status: Acute (8) Anemia: Status: Acute (9) Fungal dermatitis: Status: Acute DS: Summary Hospital Course Hospital Course: from intial hpi:Chief Complaint: Lethargy The patient is a 65 year old male with Past medical history hypertension, hyperlipidemia, diabetes, history of diastolic CHF, aortic stenosis, alcohol abuse, aspiration pneumonia and recent hospitalization 07/20/21 to 07/29/21 for Diverticulitis. He presented to the emergency room via EMS from custodial facility? with complaints of lethargy.? According to? EMS,? patient?s facility is treating patient for UTI? but today he was noted to be more confused? and lethargic.? ?In the ED,? patient was altered,? but able to answer some questions. ? He was hypotensive 84/44 and tachycardic to 114.?? Laboratory data was significant for? WBC 15.1, ? sodium 139, potassium 6.3, bicarb 18, and anion gap 24, creatinine 12.4 (last creat on 07/24/21 normal 0.93) , calcium 7.8 and? magnesium 11.2.? IMAGING:? Chest XRAY- No acute findings? Abdominal CT- ? No significant abnormality. A cause for the patient's renal failure such as obstructive uropathy has not been found. ED course:? patient received? 4 L of? normal saline, 1 amp of sodium bicarb,? 5 units of insulin? with? dextrose amp,? calcium gluconate, Zosyn, 2 g of magnesium, and? total 5 of Ativan? while in the ED.? Initially, ED provider contacted Renal, Dr Tucker who recommended fluids and possible dialysis in the morning, but when I went to assessed the patient in the emergency room,? patient was altered,? hypotensive and in acute respiratory distress,? I personally contacted? renal again who agreed to do emergency dialysis? On arrival to ICU, patient unable to protect airway, requiring emergent intubation.? hospital course: Patient was admitted for acute hypoxic respiratory failure, metabolic encephalopathy, acute kidney injury/possible ATN, hypotension, hyperkalemia. Was admitted to the ICU due to need for mechanical ventilation and emergent dialysis. Patient's mental status improved very quickly as did his renal function, he was eventually extubated, he is making good urine and his creatinine returned to normal. His mental status returned to normal. Downgraded to medical floor. He was seen by Nephrology felt acute kidney injury possibly due to hypotension, although not clear, he was started on midodrine, lisinopril has been discontinued. He will be discharged back to custodial facility. For his diabetes he will continue on insulin, for his chronic diastolic heart failure he is now euvolemic. Time Spent with Patient Time attestation: Total time spent providing and/or coordinating discharge services: Discharge coordination time: Greater than 30 minutes Quality: Stroke Does the patient have a stroke diagnosis?: No Physical Exam Vital Signs: Vital Signs: Last Vital Signs Temp 98.1 F 08/07/21 08:50 Pulse 89 08/07/21 08:50 Resp 19 08/07/21 08:50 BP 118/60 08/07/21 08:50 Pulse Ox 96 08/07/21 08:50 Oxygen Flow Rate 10 08/03/21 15:41 BMI result Body Mass Index 31.9 General: AO X 3, no acute distress Resp: CTA bilateral, no accessory muscles used CVS: S1,S2,RRR GI: soft, non tender, non distended Neuro: motor grossly intact, alert Psych: appropriate affect, appropriate insight DS: Data Data Completed and Pending Completed studies during hospitalization [Text1]: Procedures Detoxification Services for Substance Abuse Treatment (06/22/21) Insertion of Infusion Device into Superior Vena Cava, Percutaneous Approach (06/01/21) Insertion of Infusion Device into Upper Vein, Percutaneous Approach (07/21/21) Introduction of Remdesivir Anti-infective into Peripheral Vein, Percutaneous Approach, [employer] (06/01/21) Labs on day of discharge: Laboratory Results - last 24 hr 08/07/21 05:47 Sodium 143 Potassium 4.1 Chloride 105 Carbon Dioxide 27 Anion Gap 15 BUN 15 Creatinine 0.91 Estim Creat Clear Calc 87.7 Estimated GFR > 60 Random Glucose 147 H Calcium 8.3 L Phosphorus 3.5 Magnesium 1.7 Preliminary micro results at discharge 08/03/21 18:06 Blood Culture - Preliminary Blood - Venous No growth after 48 hours. 08/03/21 16:30 Blood Culture - Preliminary Blood - Venous No growth after 48 hours. Discharge Plan Discharge Patient Disposition: Xfer SNF Discharge Diagnosis: lauren Referrals: [facility] [Outside] - 1 Week Name,MD Jaylen [Primary Care Provider] - 1 Week Discharge Medications: New midodrine 5 mg Tablet 5 mg PO TID Qty: 0 0RF Continued thiamine HCl (vitamin B1) 100 mg tablet 1 tab PO BEDTIME 0RF (DME) FreeStyle Lite Strips Strip MISCELLANEOUS QID 0RF simvastatin 20 mg tablet 1 tab PO BEDTIME 0RF folic acid 1 mg tablet 1 tab PO DAILY@1700 0RF albuterol sulfate 90 mcg/actuation HFA aerosol inhaler 2 puff inhalation Q6H PRN (Reason: Wheezing) 0RF buspirone 5 mg tablet 5 mg PO BID 0RF aspirin 81 mg tablet,delayed release (DR/EC) 1 tab PO BEDTIME 0RF tamsulosin 0.4 mg capsule 1 cap PO DAILY@1700 0RF ramelteon 8 mg tablet 1 tab PO BEDTIME 0RF omeprazole 20 mg capsule,delayed release(DR/EC) 1 cap PO BID@0630,1630 0RF hydroxyzine HCl 50 mg Tablet 50 mg PO Q8H PRN (Reason: Anxiety) Qty: 20 0RF Lantus U-100 Insulin 100 unit/mL solution 45 unit subcut BEDTIME 0RF fluticasone propion-salmeterol [Wixela Inhub] 250-50 mcg/dose Blister With Device 1 inh INHALATION BID 0RF loperamide 2 mg Capsule 2 mg PO Q6H PRN (Reason: Diarrhea) 0RF Label Comments: max 8 mg in 24 hrs ondansetron HCl 4 mg Tablet 4 mg PO Q4H PRN (Reason: Nausea) 0RF bisacodyl 10 mg Suppository 10 mg [place] DAILY PRN (Reason: Constipation) 0RF oxycodone 5 mg Tablet 5 mg PO Q8H PRN (Reason: Pain) 0RF insulin aspart U-100 [Novolog Flexpen U-100 Insulin] 100 unit/mL (3 mL) Insulin Pen 1 sliding scale dose SUBCUT TIDAC 0RF Protocol: Insulin Correction Scale Less than or equal to 110 ---- Give (units): 0 111 to 150 Give (units): 0 151 to 200 Give (units): 6 201 to 250 Give (units): 8 251 to 300 Give (units): 10 301 to 350 Give (units): 12 Greater than 350 Give (units): 14 Call MD if Blood Glucose > : 350 acetaminophen [Tylenol] 325 mg Capsule 650 mg PO TID 0RF lidocaine [Aspercreme (lidocaine HCl)] 4 % Adhesive Patch,Medicated 1 patch TOPICAL DAILY 0RF Label Comments: x14 days starting 08/03/21 guaifenesin 100 mg/5 mL Liquid 200 mg PO Q4H PRN (Reason: Cough) 0RF erythromycin 5 mg/gram (0.5 %) Ointment 0.5 inch OPHTHALMIC (EYE) TID 0RF Label Comments: x7 days starting 08/03/21 Discontinued lisinopril 10 mg tablet 1 tab PO DAILY 0RF amoxicillin-pot clavulanate 875-125 mg Tablet 1 tab PO Q12H Qty: 12 0RF Rx Instructions: x 6 days starting 07/29/21 gabapentin 600 mg Tablet 600 mg PO TID 0RF Discharge Orders: Discharge Order (Routine); Ordered 08/07/21 Ordered By: Ervin Donaldson Diet: advance to usual diet Activity on Discharge: As tolerated Stand Alone Forms: Patient Portal Discharge page Print Language: Lao Care Plan Goals: recovery Health Concerns: recovering from LAUREN Plan of Treatment: holding lisinopril, starting midodrine, follow up nephro Assessment: see above
[2021-08-07 11:26] LABS: Glucose, Whole Blood 111 mg/dL (60-115)
--- NOTE | 2021-08-07 12:03 | MHC.CM.PN ---
IMM 08/07/21 Male 65 DX ARF He is discharged today. He will return to [facility] via BLS. His family have been notified of return to [facility] today. TRANSPORTATION IS SCHEDULED FOR 3PM.
[2021-08-07 13:06] LABS: COVID-19 Test Negative (Negative)
--- NOTE | 2021-08-07 13:37 | HO.PICC ---
PICC Line Insertion PICC REMOVAL 5-KINYARWANDA, TRIPLE LUMEN, 50 CM INTACT FUNCTIONAL PICC REMOVED FROM LUE ORDER REQUESTED. NO NOTED BLEEDING/OOZING/SWELLING/BRUISING TO LUE R/T PICC. PT DENIES COMPLAINTS R/T PICC LINE. CDI GAUZE/TEGADERM DRESSING APPLIED OVER LUE PUNCTURE SITE.
--- NOTE | 2021-08-07 14:20 | HO.PM.IMPN ---
Subjective Subjective Date of Service: 08/07/21 Interval History: cc: ams interval history: back to [facility] Cardiovascular Cardiovascular: Reports no additional cardiovascular complaints Respiratory Respiratory: Reports no additional respiratory complaints Physical Exam Vital Signs: Vital Signs: Last Vital Signs Temp 98.1 F 08/07/21 08:50 Pulse 89 08/07/21 08:50 Resp 19 08/07/21 08:50 BP 118/60 08/07/21 08:50 Pulse Ox 96 08/07/21 08:50 Oxygen Flow Rate 10 08/03/21 15:41 BMI result Body Mass Index 31.9 General: AO X 3, no acute distress Resp: CTA bilateral, no accessory muscles used CVS: S1,S2,RRR GI: soft, non tender, non distended Neuro: motor grossly intact, alert Psych: appropriate affect, appropriate insight Objective Data Active Medications Aspirin (Aspirin Enteric Coated 81 Mg Tablet.) 81 mg PO BEDTIME [facility] Last Admin: 08/06/21 20:05 Dose: 81 mg Documented by: YENNIFER Atorvastatin Calcium (Atorvastatin Calcium 10 Mg Tablet) 10 mg PO BEDTIME [facility] Last Admin: 08/06/21 20:05 Dose: 10 mg Documented by: YENNIFER Bisacodyl (Bisacodyl 10 Mg Supp.Rect) 10 mg ME DAILY PRN PRN Reason: Constipation Buspirone HCl (Buspirone Hcl 5 Mg Tablet) 5 mg PO BID [facility] Last Admin: 08/07/21 09:00 Dose: 5 mg Documented by: KIAH Dexmedetomidine HCl (Dexmedetomididine Hcl 80 Mcg/20 Ml Vial) 40 mcg IVPUSH Q15M PRN PRN Reason: agitation Enoxaparin Sodium (Enoxaparin Sodium 40 Mg/0.4 Ml Syringe) 40 mg SUBCUT Q24H [facility] Last Admin: 08/06/21 13:59 Dose: 40 mg Documented by: GRACE Erythromycin (Erythromycin Base 0.5% Oph Oin 1 Gm Tube) 1.27 cm EYE-BOTH TID [facility] Last Admin: 08/07/21 09:00 Dose: Not Given Documented by: KIAH Non-Admin Reason: Patient Refused Folic Acid (Folic Acid 1 Mg Tablet) 1 mg PO DAILY@1700 [facility] Last Admin: 08/06/21 16:30 Dose: 1 mg Documented by: GRACE Hydroxyzine HCl (Hydroxyzine Hcl 50 Mg Tablet) 50 mg PO Q8H PRN PRN Reason: Anxiety Last Admin: 08/07/21 04:09 Dose: 50 mg Documented by: MORIAH Lamotrigine (Lamotrigine 25 Mg Tablet) 50 mg PO DAILY [facility] Last Admin: 08/07/21 08:59 Dose: 50 mg Documented by: KIAH Midodrine (Midodrine Hcl 5 Mg Tablet) 5 mg PO TID [facility] Last Admin: 08/07/21 08:59 Dose: 5 mg Documented by: KIAH Nystatin (Nystatin Powder 15 Gm Bottle) 1 appl TOPICAL BID [facility]; Protocol Last Admin: 08/07/21 09:00 Dose: 1 appl Documented by: KIAH Omeprazole (Omeprazole 20 Mg Capsule.Dr) 20 mg PO BID@0630,1630 [facility] Last Admin: 08/07/21 05:40 Dose: 20 mg Documented by: MORIAH Oxycodone HCl (Oxycodone Hcl Immed Release 5 Mg Tablet) 5 mg PO Q6H PRN PRN Reason: Pain, Moderate (Pain Scale 4-6 Last Admin: 08/07/21 11:28 Dose: 5 mg Documented by: HAILY Tamsulosin HCl (Tamsulosin Hcl 0.4 Mg Capsule) 0.4 mg PO DAILY@1700 [facility] Last Admin: 08/06/21 16:30 Dose: 0.4 mg Documented by: GRACE Thiamine HCl (Thiamine Hcl 100 Mg Tablet) 100 mg PO BEDTIME [facility] Last Admin: 08/06/21 20:05 Dose: 100 mg Documented by: YENNIFER Labs CBC & Chem 7: 08/06/21 05:09 08/07/21 05:47 Labs: Laboratory Results - last 24 hr 08/07/21 08/07/21 08/07/21 05:47 11:23 12:12 Anion Gap 15 Estim Creat Clear Calc 87.7 Estimated GFR > 60 POC Glucose 111 Random Glucose 147 H Calcium 8.3 L Phosphorus 3.5 Magnesium 1.7 COVID-19 (ELIER) Negative COVID-19 Clin Com See Note Assessment and Plan (1) Metabolic encephalopathy: Status: Acute Plan 65M presented with altered mental status Acute hypoxic respiratory failure and metabolic encephalopathy due to acute kidney injury and possible toxic encephalopathy from medications complicated by hypotension and hyperkalemia Status post extubation, mental status back to baseline, renal function back to baseline, hypertension improved with midodrine, hyperkalemia resolved, off of lisinopril Patient is medically stable for discharge to detention facility Diabetes Insulin Chronic diastolic CHF Euvolemic Obesity Weight loss mild hypomagnesemia 1.7, replace Alcohol dependence No evidence of withdrawal DVT prophylaxis with Lovenox full code reason for continued hospitalization: patient appealing discharge Quality Stroke Does the patient have a stroke diagnosis?: No VTE Prior VTE?: No VTE Risk Level:: Medical - moderate - high VTE Device Contraindication: Treatment Not Indicated VTE Drug Contraindication: N/A - Med Ordered
--- NOTE | 2021-08-07 14:39 | MHC.CM.PN ---
Late Entry from information obtained on 08/03: pt presents to ICU from [facility] where he has been for STR. Pt currently confused and stating he was here (in [facility]) to visit Pt has a HCP on file listed as Laura Aragon - pt states that is his sister in law. Pt states he had COVID vax but is unsure of when. Pt re-referred to [facility] - pt states he loves it there CM to follow.
[2021-08-07] MEDS: Enoxaparin Sodium 40 MG/0.4 ML SYRINGE SUBCUT (15:30)
[2021-08-07 16:00] VITALS: BP 114/65; PULSE 87; RESP 18; TEMP 36.5; O2SAT 93
[2021-08-07 16:50] LABS: Glucose, Whole Blood 161 mg/dL (60-115)
[2021-08-07] MEDS: Tamsulosin HCL 0.4 MG CAPSULE PO (17:12)
[2021-08-07] MEDS: Magnesium Oxide 400 MG TABLET PO (17:12)
[2021-08-07] MEDS: Folic Acid 1 MG TABLET PO (17:12)
[2021-08-07] MEDS: Insulin Lispro 100 UNIT/ML 3 ML VIAL SUBCUT (17:14)
[2021-08-07] MEDS: Atorvastatin Calcium 10 MG TABLET PO (20:02)
[2021-08-07] MEDS: Aspirin Enteric Coated 81 MG TABLET.DR PO (20:02)
[2021-08-07 20:03] LABS: Glucose, Whole Blood 136 mg/dL (60-115)
[2021-08-07] MEDS: Thiamine HCL 100 MG TABLET PO (20:04)
[2021-08-07 23:51] VITALS: BP 130/82; PULSE 76; RESP 15; TEMP 36.7; O2SAT 98
[2021-08-08] MEDS: Omeprazole 20 MG CAPSULE.DR PO ×2 (05:40→17:13)
[2021-08-08 06:00] VITALS: BMI 32.6
[2021-08-08 07:15] VITALS: BP 112/54; PULSE 78; RESP 19; TEMP 36.8; O2SAT 95
[2021-08-08] MEDS: Magnesium Oxide 400 MG TABLET PO ×2 (07:31→17:13)
[2021-08-08] MEDS: lamoTRIgine 25 MG TABLET 50 MG PO (07:32)
[2021-08-08] MEDS: busPIRone HCl 5 MG TABLET PO ×2 (07:32→20:31)
[2021-08-08] MEDS: Midodrine HCl 5 MG TABLET PO ×3 (07:32→20:30)
[2021-08-08] MEDS: Nystatin Powder 15 GM BOTTLE 1 APPL TOPICAL (07:32)
[2021-08-08 07:35] LABS: Glucose, Whole Blood 111 mg/dL (60-115)
[2021-08-08] MEDS: oxyCODONE HCl Immed Release 5 MG TABLET PO ×2 (07:35→20:30)
--- NOTE | 2021-08-08 09:23 | HO.PM.IMPN ---
Subjective Subjective Date of Service: 08/08/21 Interval History: cc: ams interval history: back to baseline Cardiovascular Cardiovascular: Reports no additional cardiovascular complaints Respiratory Respiratory: Reports no additional respiratory complaints Physical Exam Vital Signs: Vital Signs: Last Vital Signs Temp 98.3 F 08/08/21 07:15 Pulse 78 08/08/21 07:15 Resp 19 08/08/21 07:15 BP 112/54 L 08/08/21 07:15 Pulse Ox 95 08/08/21 07:15 Oxygen Flow Rate 10 08/03/21 15:41 BMI result Body Mass Index 32.6 General: AO X 3, no acute distress Resp:? CTA bilateral, no accessory muscles used CVS: S1,S2,RRR GI: soft, non tender, non distended Neuro:? motor grossly intact, alert Psych: appropriate affect, appropriate insight? Objective Data Active Medications Aspirin (Aspirin Enteric Coated 81 Mg Tablet.) 81 mg PO BEDTIME [facility] Last Admin: 08/07/21 20:02 Dose: 81 mg Documented by: ESA Atorvastatin Calcium (Atorvastatin Calcium 10 Mg Tablet) 10 mg PO BEDTIME [facility] Last Admin: 08/07/21 20:02 Dose: 10 mg Documented by: ESA Bisacodyl (Bisacodyl 10 Mg Supp.Rect) 10 mg [place] DAILY PRN PRN Reason: Constipation Buspirone HCl (Buspirone Hcl 5 Mg Tablet) 5 mg PO BID [facility] Last Admin: 08/08/21 07:32 Dose: 5 mg Documented by: GRACE Dexmedetomidine HCl (Dexmedetomididine Hcl 80 Mcg/20 Ml Vial) 40 mcg IVPUSH Q15M PRN PRN Reason: agitation Dextrose (Dextrose 50 % 25 Gm/50 Ml Vial) 25 gm IVPUSH Q15M PRN; Protocol PRN Reason: per Hypoglycemia Standing Ord. Enoxaparin Sodium (Enoxaparin Sodium 40 Mg/0.4 Ml Syringe) 40 mg SUBCUT Q24H [facility] Last Admin: 08/07/21 15:30 Dose: 40 mg Documented by: KIAH Erythromycin (Erythromycin Base 0.5% Oph Oin 1 Gm Tube) 1.27 cm EYE-BOTH TID [facility] Last Admin: 08/08/21 07:32 Dose: Not Given Documented by: GARCE Non-Admin Reason: Patient Refused Folic Acid (Folic Acid 1 Mg Tablet) 1 mg PO DAILY@1700 [facility] Last Admin: 08/07/21 17:12 Dose: 1 mg Documented by: KIAH Glucose (Glucose Gel 15 Gm Gel..Gram.) 15 gm PO Q15M PRN; Protocol PRN Reason: per Hypoglycemia Standing Ord. Hydroxyzine HCl (Hydroxyzine Hcl 50 Mg Tablet) 50 mg PO Q8H PRN PRN Reason: Anxiety Last Admin: 08/07/21 20:03 Dose: 50 mg Documented by: ESA Insulin Human Lispro (Insulin Lispro 100 Unit/Ml 3 Ml Vial) 0 unit SUBCUT QIDACHS [facility]; Protocol Last Admin: 08/08/21 07:25 Dose: Not Given Documented by: GRACE Non-Admin Reason: No Insulin Coverage Comments: poc 111 Lamotrigine (Lamotrigine 25 Mg Tablet) 50 mg PO DAILY [facility] Last Admin: 08/08/21 07:32 Dose: 50 mg Documented by: GRACE Magnesium Oxide (Magnesium Oxide 400 Mg Tablet) 400 mg PO BIDPC [facility] Last Admin: 08/08/21 07:31 Dose: 400 mg Documented by: GRACE Midodrine (Midodrine Hcl 5 Mg Tablet) 5 mg PO TID [facility] Last Admin: 08/08/21 07:32 Dose: 5 mg Documented by: GRACE Nystatin (Nystatin Powder 15 Gm Bottle) 1 appl TOPICAL BID [facility]; Protocol Last Admin: 08/08/21 07:32 Dose: 1 appl Documented by: GRACE Omeprazole (Omeprazole 20 Mg Capsule.) 20 mg PO BID@0630,1630 [facility] Last Admin: 08/08/21 05:40 Dose: 20 mg Documented by: ESA Oxycodone HCl (Oxycodone Hcl Immed Release 5 Mg Tablet) 5 mg PO Q6H PRN PRN Reason: Pain, Moderate (Pain Scale 4-6 Last Admin: 08/08/21 07:35 Dose: 5 mg Documented by: GRACE Tamsulosin HCl (Tamsulosin Hcl 0.4 Mg Capsule) 0.4 mg PO DAILY@1700 [facility] Last Admin: 08/07/21 17:12 Dose: 0.4 mg Documented by: KIAH Thiamine HCl (Thiamine Hcl 100 Mg Tablet) 100 mg PO BEDTIME [facility] Last Admin: 08/07/21 20:04 Dose: 100 mg Documented by: ESA Labs CBC & Chem 7: 08/06/21 05:09 08/07/21 05:47 Labs: Laboratory Results - last 24 hr 08/07/21 08/07/21 08/07/21 11:23 12:12 16:46 POC Glucose 111 161 H COVID-19 (ELIER) Negative COVID-19 Clin Com See Note 08/07/21 08/08/21 20:00 07:14 POC Glucose 136 H 111 COVID-19 (ELIER) COVID-19 Clin Com Assessment and Plan (1) Metabolic encephalopathy: Status: Acute Plan 65M presented with altered mental status Acute hypoxic respiratory failure and metabolic encephalopathy due to acute kidney injury and possible toxic encephalopathy from medications complicated by hypotension and hyperkalemia Status post extubation, mental status back to baseline, renal function back to baseline, hypertension improved with midodrine, hyperkalemia resolved, off of lisinopril Patient is medically stable for discharge to group home facility if still in hospital tomorrow will follow up repeat bmp Diabetes Insulin Chronic diastolic CHF Euvolemic Obesity Weight loss mild hypomagnesemia 1.7, replaced Alcohol dependence No evidence of withdrawal DVT prophylaxis with Lovenox full code reason for continued hospitalization: patient appealing discharge Quality Stroke Does the patient have a stroke diagnosis?: No VTE Prior VTE?: No VTE Risk Level:: Medical - moderate - high VTE Device Contraindication: Treatment Not Indicated VTE Drug Contraindication: N/A - Med Ordered
--- NOTE | 2021-08-08 11:33 | MHC.CLN ---
F/U PO 25-50% DIET RX: 2000DM 2GM NA DIET -APPROPRIATE WILL START GLUCERNA BID R/T POOR PO MONITOR PO INTAKE CLOSELY
[2021-08-08] MEDS: hydrOXYzine HCL 50 MG TABLET PO (12:24)
--- NOTE | 2021-08-08 14:52 | MHC.CM.PN ---
Patient appealed discharge 08/07/21 PM. The outcome of the appeal is pending.
[2021-08-08 15:15] VITALS: BP 114/54; PULSE 72; RESP 20; TEMP 37.1; O2SAT 95
[2021-08-08] MEDS: Enoxaparin Sodium 40 MG/0.4 ML SYRINGE SUBCUT (15:15)
[2021-08-08] MEDS: Ondansetron ODT 4 MG TAB.RAPDIS TRANSLINGU (15:16)
[2021-08-08 15:30] LABS: Glucose, Whole Blood 151 mg/dL (60-115)
[2021-08-08] MEDS: Folic Acid 1 MG TABLET PO (17:13)
[2021-08-08] MEDS: Tamsulosin HCL 0.4 MG CAPSULE PO (17:13)
--- NOTE | 2021-08-08 18:00 | PC.NURSE ---
ZOFRAN ORDERED AND ADMINISTERED FOR C/O NAUSEA - POSITIVE EFFECT.
[2021-08-08 19:13] VITALS: BP 100/62; PULSE 86; RESP 18; TEMP 37.1; O2SAT 98
[2021-08-08 19:47] LABS: Glucose, Whole Blood 187 mg/dL (60-115)
[2021-08-08] MEDS: Aspirin Enteric Coated 81 MG TABLET.DR PO (20:30)
[2021-08-08] MEDS: Atorvastatin Calcium 10 MG TABLET PO (20:30)
[2021-08-08] MEDS: Insulin Lispro 100 UNIT/ML 3 ML VIAL SUBCUT (20:31)
[2021-08-08] MEDS: Thiamine HCL 100 MG TABLET PO (20:31)
[2021-08-08 23:21] VITALS: BP 104/53; PULSE 69; RESP 16; TEMP 36.4; O2SAT 93
[2021-08-09 03:18] VITALS: BP 132/93; PULSE 93; RESP 20; TEMP 37; O2SAT 94
[2021-08-09 05:16] VITALS: BMI 32.8
[2021-08-09] MEDS: Omeprazole 20 MG CAPSULE.DR PO (05:44)
[2021-08-09] MEDS: oxyCODONE HCl Immed Release 5 MG TABLET PO ×2 (05:44→11:45)
[2021-08-09 06:38] LABS: Hematocrit 32.9 % (42.0-52.0); Mean Corpuscular HGB Conc 30.4 g/dl (31.0-36.0); Mean Corpuscular Hemoglobin 29.6 pg (27.0-33.0); Mean Corpuscular Volume 97.3 fL (80.0-98.0); Mean Platelet Volume 9.4 fL (9.4-12.4); Platelet Count 225 X10*3/uL (160-400); Red Blood Count 3.38 X10*6/uL (4.60-5.80); Red Cell Distribution Width 12.9 % (11.0-16.0); White Blood Count 5.5 X10*3/uL (4.8-10.8)
[2021-08-09 06:56] LABS: Anion Gap 13 (12-20); Blood Urea Nitrogen 8 mg/dL (9-16); Calcium 8.1 mg/dL (8.4-10.2); Carbon Dioxide 25 mmol/L (22-29); Chloride 103 mmol/L (96-108); Creatinine Clr Calc Pharmacy 103.7; Estimated Glomerular Filt Rate > 60; Glucose Fasting 138 mg/dL (60-99); Potassium 4.5 mmol/L (3.3-5.1); Sodium 136 mmol/L (135-145)
--- NOTE | 2021-08-09 08:50 | HO.PM.IMPN ---
Subjective Subjective Date of Service: 08/09/21 Interval History: cc: ams interval history:diarrhea resolved, says not ready for discharge, but no specific reason given Cardiovascular Cardiovascular: Reports no additional cardiovascular complaints Respiratory Respiratory: Reports no additional respiratory complaints Physical Exam Vital Signs: Vital Signs: Last Vital Signs Temp 98.6 F 08/09/21 03:18 Pulse 93 08/09/21 03:18 Resp 20 08/09/21 03:18 BP 132/93 H 08/09/21 03:18 Pulse Ox 94 08/09/21 03:18 Oxygen Flow Rate 10 08/03/21 15:41 BMI result Body Mass Index 32.8 General: AO X 3, no acute distress Resp:? CTA bilateral, no accessory muscles used CVS: S1,S2,RRR GI: soft, non tender, non distended Neuro:? motor grossly intact, alert Psych: appropriate affect, appropriate insight? Objective Data Active Medications Aspirin (Aspirin Enteric Coated 81 Mg Tablet.) 81 mg PO BEDTIME [facility] Last Admin: 08/08/21 20:30 Dose: 81 mg Documented by: CHAPITO Atorvastatin Calcium (Atorvastatin Calcium 10 Mg Tablet) 10 mg PO BEDTIME [facility] Last Admin: 08/08/21 20:30 Dose: 10 mg Documented by: CHAPITO Bisacodyl (Bisacodyl 10 Mg Supp.Rect) 10 mg [place] DAILY PRN PRN Reason: Constipation Buspirone HCl (Buspirone Hcl 5 Mg Tablet) 5 mg PO BID [facility] Last Admin: 08/08/21 20:31 Dose: 5 mg Documented by: CHAPITO Dexmedetomidine HCl (Dexmedetomididine Hcl 80 Mcg/20 Ml Vial) 40 mcg IVPUSH Q15M PRN PRN Reason: agitation Dextrose (Dextrose 50 % 25 Gm/50 Ml Vial) 25 gm IVPUSH Q15M PRN; Protocol PRN Reason: per Hypoglycemia Standing Ord. Enoxaparin Sodium (Enoxaparin Sodium 40 Mg/0.4 Ml Syringe) 40 mg SUBCUT Q24H [facility] Last Admin: 08/08/21 15:15 Dose: 40 mg Documented by: GRACE Erythromycin (Erythromycin Base 0.5% Oph Oin 1 Gm Tube) 1.27 cm EYE-BOTH TID [facility] Last Admin: 08/08/21 20:34 Dose: Not Given Documented by: CHAPITO Non-Admin Reason: Patient Refused Folic Acid (Folic Acid 1 Mg Tablet) 1 mg PO DAILY@1700 [facility] Last Admin: 08/08/21 17:13 Dose: 1 mg Documented by: GRACE Glucose (Glucose Gel 15 Gm Gel..Gram.) 15 gm PO Q15M PRN; Protocol PRN Reason: per Hypoglycemia Standing Ord. Hydroxyzine HCl (Hydroxyzine Hcl 50 Mg Tablet) 50 mg PO Q8H PRN PRN Reason: Anxiety Last Admin: 08/08/21 12:24 Dose: 50 mg Documented by: GRACE Insulin Human Lispro (Insulin Lispro 100 Unit/Ml 3 Ml Vial) 0 unit SUBCUT QIDACHS [facility]; Protocol Last Admin: 08/09/21 08:28 Dose: Not Given Documented by: DIANA Non-Admin Reason: Patient Refused Lamotrigine (Lamotrigine 25 Mg Tablet) 50 mg PO DAILY [facility] Last Admin: 08/08/21 07:32 Dose: 50 mg Documented by: GRACE Magnesium Oxide (Magnesium Oxide 400 Mg Tablet) 400 mg PO BIDPC [facility] Last Admin: 08/08/21 17:13 Dose: 400 mg Documented by: GRACE Midodrine (Midodrine Hcl 5 Mg Tablet) 5 mg PO TID [facility] Last Admin: 08/08/21 20:30 Dose: 5 mg Documented by: CHAPITO Nystatin (Nystatin Powder 15 Gm Bottle) 1 appl TOPICAL BID [facility]; Protocol Last Admin: 08/08/21 20:34 Dose: Not Given Documented by: CHAPITO Non-Admin Reason: Patient Refused Omeprazole (Omeprazole 20 Mg Gregg.) 20 mg PO BID@0630,1630 [facility] Last Admin: 08/09/21 05:44 Dose: 20 mg Documented by: CHAPITO Ondansetron HCl (Ondansetron Odt 4 Mg Tab.Rapdis) 4 mg TRANSLINGU Q8H PRN PRN Reason: nausea Last Admin: 08/08/21 15:16 Dose: 4 mg Documented by: GRACE Oxycodone HCl (Oxycodone Hcl Immed Release 5 Mg Tablet) 5 mg PO Q6H PRN PRN Reason: Pain, Moderate (Pain Scale 4-6 Last Admin: 08/09/21 05:44 Dose: 5 mg Documented by: CHAPITO Tamsulosin HCl (Tamsulosin Hcl 0.4 Mg Capsule) 0.4 mg PO DAILY@1700 [facility] Last Admin: 08/08/21 17:13 Dose: 0.4 mg Documented by: GRACE Thiamine HCl (Thiamine Hcl 100 Mg Tablet) 100 mg PO BEDTIME [facility] Last Admin: 08/08/21 20:31 Dose: 100 mg Documented by: CHAPITO Labs CBC & Chem 7: 08/09/21 06:19 08/09/21 06:19 Labs: Laboratory Results - last 24 hr 08/08/21 08/08/21 08/09/21 15:27 19:37 06:19 MCV 97.3 MCH 29.6 MCHC 30.4 L RDW 12.9 Plt Count 225 MPV 9.4 Absolute Nucleated RBC 0.000 Nucleated RBC % (auto) 0.0 Anion Gap Estim Creat Clear Calc Estimated GFR POC Glucose 151 H 187 H Fasting Glucose Calcium 08/09/21 06:19 MCV MCH MCHC RDW Plt Count MPV Absolute Nucleated RBC Nucleated RBC % (auto) Anion Gap 13 Estim Creat Clear Calc 103.7 Estimated GFR > 60 POC Glucose Fasting Glucose 138 H Calcium 8.1 L Microbiology Microbiology Results: Microbiology 08/03/21 18:06 Blood Culture - Final Blood - Venous No growth after 5 days. 08/03/21 16:30 Blood Culture - Final Blood - Venous No growth after 5 days. Assessment and Plan (1) Metabolic encephalopathy: Status: Acute Plan 65M presented with altered mental status Acute hypoxic respiratory failure and metabolic encephalopathy due to acute kidney injury and possible toxic encephalopathy from medications complicated by hypotension and hyperkalemia Status post extubation, mental status back to baseline, renal function back to baseline, hypertension improved with midodrine, hyperkalemia resolved, off of lisinopril Patient is medically stable for discharge to [place] [facility] Diabetes Insulin Chronic diastolic CHF Euvolemic Obesity Weight loss mild hypomagnesemia 1.7, replaced Alcohol dependence No evidence of withdrawal DVT prophylaxis with Lovenox full code reason for continued hospitalization: patient appealing discharge Quality Stroke Does the patient have a stroke diagnosis?: No VTE Prior VTE?: No VTE Risk Level:: Medical - moderate - high VTE Device Contraindication: Treatment Not Indicated VTE Drug Contraindication: N/A - Med Ordered
[2021-08-09] MEDS: Magnesium Oxide 400 MG TABLET PO (10:31)
[2021-08-09] MEDS: Midodrine HCl 5 MG TABLET PO (10:31)
[2021-08-09] MEDS: lamoTRIgine 25 MG TABLET 50 MG PO (10:31)
[2021-08-09] MEDS: busPIRone HCl 5 MG TABLET PO (10:31)
[2021-08-09] MEDS: Nystatin Powder 15 GM BOTTLE 1 APPL TOPICAL (10:36)
[2021-08-09] MEDS: Ondansetron ODT 4 MG TAB.RAPDIS TRANSLINGU (11:47)
[2021-08-09 15:44] LABS: COVID-19 Test Negative (Negative)
--- NOTE | 2021-08-10 09:53 | MHC.CM.PN ---
CM INFORMED ON THE AFTERNOON OF 08/09/21, THAT THE PT HAD LOST HIS DISCHARGE APPEAL. PER NOTICE FROM [facility], PT HAD UNTIL 1200 HOURS ON 08/10/21 TO DC BEFORE FINANCIAL LIABILITY BEGAN. PT DECIDED HE DID NOT WANT TO WAIT UNTIL TODAY TO DC AND RETURNED TO [place] AT 1600 HOURS ON 08/09/21 VIA [facility]. PT DECLINED CM OFFER TO CONTACT FRIENDS/FAMILY AND INDICATED HE HAD ALREADY INFORMED THEM.
== END 2021-08-09 16:18 | disposition skilled nursing facility (03) | DRG 682 ==
LOC: HO.ED 23:01 → HO.EDOVER 23:22 → HO.ICU 23:22 → HO.IMC 08-07 06:53
PROVIDERS: Anesthesiology; Internal Medicine Nephrology; Physician Assistant Medical; Registered Nurse Community Health; Admitting Provider Internal Medicine Pulmonary Disease; Emergency Provider Internal Medicine; PCP Internal Medicine Geriatric Medicine; Visit Provider Internal Medicine
DX: N17.0 Acute kidney failure with tubular necrosis (principal); J96.01 Acute respiratory failure with hypoxia; G92.8 Other toxic encephalopathy; I50.32 Chronic diastolic (congestive) heart failure; K57.92 Diverticulitis of intestine, part unspecified, without perforation or abscess without bleeding; F05 Delirium due to known physiological condition; E78.5 Hyperlipidemia, unspecified; I95.9 Hypotension, unspecified; E87.5 Hyperkalemia; B36.9 Superficial mycosis, unspecified; D64.89 Other specified anemias; J44.9 Chronic obstructive pulmonary disease, unspecified; I11.0 Hypertensive heart disease with heart failure; E11.9 Type 2 diabetes mellitus without complications; E66.9 Obesity, unspecified; Z68.32 Body mass index [BMI] 32.0-32.9, adult; I35.0 Nonrheumatic aortic (valve) stenosis; Z20.822 Contact with and (suspected) exposure to COVID-19; F10.20 Alcohol dependence, uncomplicated; R19.7 Diarrhea, unspecified; Z87.891 Personal history of nicotine dependence; Z79.4 Long term (current) use of insulin; Z79.51 Long term (current) use of inhaled steroids; Z79.82 Long term (current) use of aspirin; Z79.891 Long term (current) use of opiate analgesic; Z79.899 Other long term (current) drug therapy
CPT/HCPCS: 36415; 36573; 71045; 74018; 74176; 80048; 80053; 81003; 82140; 82533; 82550; 82803; 82947; 83605; 83735; 83880; 84100; 84145; 84156; 84300; 84484; 85025; 85027; 85610; 85730; 87040; 87635; 90999; 93005; 94002; 94799; 96361; 96365; 96366; 96367; 96375; 96376; 99285; 99291; C1758; J0610; J1170; J1650; J2020; J2060; J2543; J3010; J3475

== ENCOUNTER 2021-08-31 17:00 | Emergency (ER) | payer OTHER, SELFPAY ==
--- NOTE | ~2021-08-31 | CT_ITS ---
EXAMINATION: CT ABDOMEN AND PELVIS WITHOUT CONTRAST CLINICAL INFORMATION: Lower abdominal pain. Evaluate for diverticulitis. COMPARISON: 08/04/2021. TECHNIQUE: Multidetector volumetric imaging was performed from the superior aspect of the liver through the pubic symphysis. Sagittal and coronal reformatted images were obtained on the technologist's workstation. This CT examination was performed using dose optimization techniques as appropriate, variously including the following: *Automated exposure control *Adjustment of mA and/or kV according to patient size (this includes techniques or standardized protocols for targeted exams where dose is matched to indication/reason for exam; i.e. extremities or head) *Use of iterative reconstruction technique DLP: 628 mGy-cm FINDINGS: LUNG BASES: Redemonstration of bronchial wall thickening and scattered tree-in-bud/patchy opacities in the lung bases. LIVER, GALLBLADDER, AND BILIARY TREE: Hepatic steatosis. No discrete focal lesions in the liver. Normal gallbladder. No biliary ductal dilatation. PANCREAS: Unremarkable. SPLEEN: Unremarkable. ADRENAL GLANDS: Unremarkable. KIDNEYS AND URETERS: Increased perinephric fat stranding with also increased stranding of the retroperitoneum extending along the ureters into the pelvis and perivesicular region. No hydronephrosis or nephrolithiasis. No ureteral calculi. Redemonstration of a water density cyst in the lateral surface of the left kidney. BLADDER: Mild diffuse wall thickening. GASTROINTESTINAL TRACT: Extensive sigmoid diverticulosis but with no associated findings to suspect acute diverticulitis. Large stool ball in the rectum. No bowel obstruction. Normal appendix. Small hiatal hernia. ABDOMINAL WALL: No significant hernia is appreciated. LYMPH NODES: No lymphadenopathy by size criteria. VASCULAR: Extensive atherosclerotic disease. PELVIC VISCERA: Enlarged prostate. OSSEOUS STRUCTURES: Redemonstration of increased sclerosis in the femoral head suggesting avascular necrosis. Thoracolumbar spondylosis. CT/CT abdomen pelvis wo con IMPRESSION: Increase perinephric and periureteric fat stranding concerning for an urinary tract infection. There is also urinary bladder wall thickening. Correlate clinically. Evaluation of pyelonephritis is suboptimal in the absence of intravenous contrast. No nephrolithiasis or hydronephrosis. Extensive sigmoid diverticulosis without findings to suggest acute diverticulitis. Large amount of stool in the rectum suggesting constipation. Hepatic steatosis. Avascular necrosis of the femoral heads.
[2021-08-31 17:10] VITALS: BP 113/69; BP 146/90; PULSE 90; PULSE 94; RESP 18; TEMP 37.1; O2SAT 95; O2SAT 98; BMI 34.9
--- NOTE | 2021-08-31 17:11 | ED.ABDPAIN ---
HPI - Abdominal Pain General Chief Complaint: Abdominal Pain Stated Complaint: ABD PAIN,FREQ URINATION,LOSS OF JORDAN Time Seen by Provider: 08/31/21 17:11 Source: patient Mode of arrival: ambulatory Limitations: no limitations History of Present Illness HPI narrative: Patient is 65 years with significant past medical history of hypertension hyperlipidemia diabetes diastolic heart failure aortic stenosis alcohol abuse recently admitted and discharged on 08/09 for metabolic encephalopathy and acute renal failure requiring mechanical ventilation and emergency dialysis BUN 8 creatinine 0.78 at the time of discharge comes back for diffuse abdominal pain , nausea, frequent urination and loss of appetite for last few days no fever but has chills Related Data Home Medications Medication Instructions Recorded Confirmed albuterol sulfate 90 mcg/actuation 2 puff INHALATION Q6H PRN 12/29/20 08/03/21 aerosol inhaler blood sugar diagnostic (FreeStyle 12/29/20 02/04/21 Lite Strips) folic acid 1 mg tablet 1 tab PO DAILY@1700 12/29/20 08/03/21 simvastatin 20 mg tablet 1 tab PO BEDTIME 12/29/20 08/03/21 thiamine HCl (vitamin B1) 100 mg 1 tab PO BEDTIME 12/29/20 08/03/21 tablet aspirin 81 mg tablet,delayed 1 tab PO BEDTIME 02/04/21 08/03/21 release buspirone 5 mg tablet 5 mg PO BID 02/04/21 08/03/21 ramelteon 8 mg tablet 1 tab PO BEDTIME 05/12/21 08/03/21 tamsulosin 0.4 mg capsule 1 cap PO DAILY@1700 05/12/21 08/03/21 omeprazole 20 mg capsule,delayed 1 cap PO BID@0630,1630 06/01/21 08/03/21 release insulin glargine 100 unit/mL 45 unit SUBCUT BEDTIME 06/24/21 08/03/21 subcutaneous solution (Lantus U-100 Insulin) acetaminophen 325 mg capsule 650 mg PO TID 07/21/21 08/03/21 (Tylenol) bisacodyl 10 mg rectal suppository 10 mg [place] DAILY PRN 07/21/21 08/03/21 fluticasone 250 mcg-salmeterol 50 1 inh INHALATION BID 07/21/21 08/03/21 mcg/dose blistr powdr for inhalation (Wixela Inhub) insulin aspart U-100 100 unit/mL 1 sliding scale dose SUBCUT TIDAC 07/21/21 08/03/21 (3 mL) subcutaneous pen (Novolog Flexpen U-100 Insulin aspart) loperamide 2 mg capsule 2 mg PO Q6H PRN 07/21/21 08/03/21 ondansetron HCl 4 mg tablet 4 mg PO Q4H PRN 07/21/21 08/03/21 oxycodone 5 mg tablet 5 mg PO Q8H PRN 07/21/21 08/03/21 erythromycin 5 mg/gram (0.5 %) eye 0.5 inch OPHTHALMIC (EYE) TID 08/03/21 08/03/21 ointment guaifenesin 100 mg/5 mL oral liquid 200 mg PO Q4H PRN 08/03/21 08/03/21 lidocaine 4 % topical patch 1 patch TOPICAL DAILY 08/03/21 08/03/21 (Aspercreme (lidocaine)) Previous Rx's Medication Instructions Recorded hydroxyzine HCl 50 mg tablet 50 mg PO Q8H PRN #20 tab 06/05/21 midodrine 5 mg tablet 5 mg PO TID #0 tab 08/07/21 ciprofloxacin HCl 500 mg tablet 500 mg PO BID #14 tab 08/31/21 (Cipro) ondansetron 4 mg disintegrating 4 mg PO Q6-8H PRN #7 tab 08/31/21 tablet oxycodone-acetaminophen 5 mg-325 1 tab PO Q6H PRN #20 tab 08/31/21 mg tablet (Percocet) Allergies Allergy/AdvReac Type Severity Reaction Status Date / Time ENVIRONMENTAL Allergy Mild SNEEZING, Uncoded 08/03/21 15:10 WATERY EYES Review of Systems Review of Systems Yes all other systems are reviewed and are negative PMF Past Medical History Medical History LAUREN (acute kidney injury) Alcohol abuse Anxiety COPD (chronic obstructive pulmonary disease) Diabetes mellitus type 1 Diastolic dysfunction Diastolic heart failure Fall HLD (hyperlipidemia) Hypertension Nonrheumatic aortic (valve) stenosis Obesity Pneumonia Surgical History H/O elbow surgery H/O shoulder surgery History of hydrocelectomy S/P TURP Family History Family History Father Diabetes Mother Diabetes Social History Social History Household Members: None Housing: Care Home Do you presently have visiting nurse or other home services: Yes (used to live in apt. has been in [place] for ahwile ) Unable to assess alcohol history related to: Unable to respond Alcohol intake: current Alcohol intake frequency: 0-2 drinks per day Alcohol type: hard liquor Patient Tobacco Use Status: Former Tobacco user Tobacco use type: Cigar e-Cigarette/Vaping Use: Currently Using Second Hand Smoke Exposure: No Advance Directives: Yes Advance Directives on File: Yes Advance Directives Date on File: 10/11/20 service: No Current occupational status: unemployed and disabled Physical Exam ED Vital Signs: Vital Signs - 24 hr 08/31/21 17:10 Temperature 98.7 F Pulse Rate 90 Respiratory Rate 18 Blood Pressure 113/69 Pulse Oximetry 95 BMI result Body Mass Index 34.9 Appearance: Alert. Oriented X3. No acute distress. Eyes: No pallor/ icterus ENT: Pharynx normal. Oral Mucosa moist Neck: Normal inspection. Neck supple. CVS: Normal heart rate and rhythm. Pulses normal. Respiratory: No respiratory distress. Equal air entry bilateral, no wheezing/rales/rhonchi Abdomen: Soft mild diffuse discomfort, Bowel sounds are present, no mass palpable, no CVA tenderness Skin: Skin warm and dry. Normal skin color. Normal skin turgor. Extremities: No lower extremity edema. No calf tenderness Neuro: Oriented X 3. No motor deficit. MDM - Abdominal Pain MDM Narrative Medical decision making narrative: Patient with diffuse abdominal pain urine is negative WBC counts normal CT scan showed inflammation around the ureters etiology not very clear we will give him prophylactic antibiotic Cipro and nausea medication patient asking more for the pain than anything else at this time narcotic seeking behavior suspected. Patient advised to follow with PCP/urology Lab Data Attestation: I reviewed the patient's lab results. Result diagrams: 08/31/21 19:11 08/31/21 19:11 Labs: Lab Results 08/31/21 08/31/21 08/31/21 Range/Units 17:36 19:11 19:11 WBC 7.4 (4.8-10.8) X10*3/uL RBC 4.59 L D (4.60-5.80) X10*6/uL Hgb 13.4 L D (14.0-18.0) g/dl Hct 40.7 L D (42.0-52.0) % MCV 88.7 (80.0-98.0) fL MCH 29.2 (27.0-33.0) pg MCHC 32.9 (31.0-36.0) g/dl RDW 14.1 (11.0-16.0) % Plt Count 218 (160-400) X10*3/uL MPV 8.6 L (9.4-12.4) fL Immature Gran % (Auto) 0.3 (0.0-0.4) % Neut % (Auto) 63.7 (45-73) % Lymph % (Auto) 20.5 (20-40) % [place] % (Auto) 7.5 (2-11) % Eos % (Auto) 7.3 H (0-4) % Baso % (Auto) 0.7 (0-2) % Lymph # (Auto) 1.5 (1.2-4.9) X10*3/uL [place] # (Auto) 0.6 (0.1-1.2) X10*3/uL Eos # (Auto) 0.5 H (0.0-0.4) X10*3/uL Baso # (Auto) 0.1 (0.0-0.2) X10*3/uL Abs Immat Gran (auto) 0.02 (0.00-0.03) X10*3/uL Absolute Neuts (auto) 4.7 (2.0-8.3) x10*3/uL Absolute Nucleated RBC 0.000 (0.0-0.012) X10*3/uL Nucleated RBC % (auto) 0.0 (0.0-0.2) /100WBC Sodium 138 (135-145) mmol/L Potassium 4.0 (3.3-5.1) mmol/L Chloride 99 (96-108) mmol/L Carbon Dioxide 29 (22-29) mmol/L Anion Gap 14 (12-20) BUN 5 L (9-16) mg/dL Creatinine 0.74 (0.5-1.4) mg/dL Estim Creat Clear Calc 116.5 Estimated GFR > 60 Random Glucose 126 H (60-115) mg/dL Calcium 9.0 D (8.4-10.2) mg/dL Total Bilirubin 0.5 (0.0-1.0) mg/dL AST 16 D (5-37) U/L ALT 11 (0-40) U/L Alkaline Phosphatase 80 (39-117) U/L Total Protein 6.7 D (6.5-8.0) g/dL Albumin 3.9 D (3.5-5.0) g/dL Urine Color Urine Appearance Urine pH (5.0-8.0) Ur Specific [place] (1.005-1.025) Urine Protein (NEG-TRACE) MG/DL Urine Glucose (UA) (NEG) MG/DL Urine Ketones (NEG) MG/DL Urine Blood (NEG) Urine Nitrite (NEG) Ur Leukocyte Esterase (NEG) COVID-19 (ELIER) Negative (Negative) COVID-19 Clin Com See Note 08/31/21 Range/Units 22:12 WBC (4.8-10.8) X10*3/uL RBC (4.60-5.80) X10*6/uL Hgb (14.0-18.0) g/dl Hct (42.0-52.0) % MCV (80.0-98.0) fL MCH (27.0-33.0) pg MCHC (31.0-36.0) g/dl RDW (11.0-16.0) % Plt Count (160-400) X10*3/uL MPV (9.4-12.4) fL Immature Gran % (Auto) (0.0-0.4) % Neut % (Auto) (45-73) % Lymph % (Auto) (20-40) % [place] % (Auto) (2-11) % Eos % (Auto) (0-4) % Baso % (Auto) (0-2) % Lymph # (Auto) (1.2-4.9) X10*3/uL [place] # (Auto) (0.1-1.2) X10*3/uL Eos # (Auto) (0.0-0.4) X10*3/uL Baso # (Auto) (0.0-0.2) X10*3/uL Abs Immat Gran (auto) (0.00-0.03) X10*3/uL Absolute Neuts (auto) (2.0-8.3) x10*3/uL Absolute Nucleated RBC (0.0-0.012) X10*3/uL Nucleated RBC % (auto) (0.0-0.2) /100WBC Sodium (135-145) mmol/L Potassium (3.3-5.1) mmol/L Chloride (96-108) mmol/L Carbon Dioxide (22-29) mmol/L Anion Gap (12-20) BUN (9-16) mg/dL Creatinine (0.5-1.4) mg/dL Estim Creat Clear Calc Estimated GFR Random Glucose (60-115) mg/dL Calcium (8.4-10.2) mg/dL Total Bilirubin (0.0-1.0) mg/dL AST (5-37) U/L ALT (0-40) U/L Alkaline Phosphatase (39-117) U/L Total Protein (6.5-8.0) g/dL Albumin (3.5-5.0) g/dL Urine Color YELLOW Urine Appearance CLEAR Urine pH 7.0 (5.0-8.0) Ur Specific [place] 1.015 (1.005-1.025) Urine Protein NEG (NEG-TRACE) MG/DL Urine Glucose (UA) NEG (NEG) MG/DL Urine Ketones 40 (NEG) MG/DL Urine Blood NEG (NEG) Urine Nitrite NEG (NEG) Ur Leukocyte Esterase NEG (NEG) COVID-19 (ELIER) (Negative) COVID-19 Clin Com Discharge Plan Discharge Clinical Impression: Urethritis Patient Disposition: Home, Self-Care Instructions: Nonspecific Urethritis in Men (ED) Additional Instructions: Your urine is negative for infection but CT scan showed some inflammation around the ureter Will give antibiotics as prophylaxis Follow-up with PCP/urologist Prescriptions: New ciprofloxacin HCl [Cipro] 500 mg tablet 500 mg PO BID Qty: 14 0RF oxycodone-acetaminophen [Percocet] 5-325 mg tablet 1 tab PO Q6H PRN (Reason: pain) Qty: 20 0RF ondansetron 4 mg tablet,disintegrating 4 mg PO Q6-8H PRN (Reason: nausea and vomiting) Qty: 7 0RF No Action thiamine HCl (vitamin B1) 100 mg tablet 1 tab PO BEDTIME 0RF (DME) FreeStyle Lite Strips Strip MISCELLANEOUS QID 0RF simvastatin 20 mg tablet 1 tab PO BEDTIME 0RF folic acid 1 mg tablet 1 tab PO DAILY@1700 0RF albuterol sulfate 90 mcg/actuation HFA aerosol inhaler 2 puff inhalation Q6H PRN (Reason: Wheezing) 0RF buspirone 5 mg tablet 5 mg PO BID 0RF aspirin 81 mg tablet,delayed release (DR/EC) 1 tab PO BEDTIME 0RF tamsulosin 0.4 mg capsule 1 cap PO DAILY@1700 0RF ramelteon 8 mg tablet 1 tab PO BEDTIME 0RF omeprazole 20 mg capsule,delayed release(DR/EC) 1 cap PO BID@0630,1630 0RF hydroxyzine HCl 50 mg Tablet 50 mg PO Q8H PRN (Reason: Anxiety) Qty: 20 0RF Lantus U-100 Insulin 100 unit/mL solution 45 unit subcut BEDTIME 0RF fluticasone propion-salmeterol [Wixela Inhub] 250-50 mcg/dose Blister With Device 1 inh INHALATION BID 0RF loperamide 2 mg Capsule 2 mg PO Q6H PRN (Reason: Diarrhea) 0RF Label Comments: max 8 mg in 24 hrs ondansetron HCl 4 mg Tablet 4 mg PO Q4H PRN (Reason: Nausea) 0RF bisacodyl 10 mg Suppository 10 mg [place] DAILY PRN (Reason: Constipation) 0RF oxycodone 5 mg Tablet 5 mg PO Q8H PRN (Reason: Pain) 0RF insulin aspart U-100 [Novolog Flexpen U-100 Insulin] 100 unit/mL (3 mL) Insulin Pen 1 sliding scale dose SUBCUT TIDAC 0RF Protocol: Insulin Correction Scale Less than or equal to 110 ---- Give (units): 0 111 to 150 Give (units): 0 151 to 200 Give (units): 6 201 to 250 Give (units): 8 251 to 300 Give (units): 10 301 to 350 Give (units): 12 Greater than 350 Give (units): 14 Call MD if Blood Glucose > : 350 acetaminophen [Tylenol] 325 mg Capsule 650 mg PO TID 0RF lidocaine [Aspercreme (lidocaine HCl)] 4 % Adhesive Patch,Medicated 1 patch TOPICAL DAILY 0RF Label Comments: x14 days starting 08/03/21 guaifenesin 100 mg/5 mL Liquid 200 mg PO Q4H PRN (Reason: Cough) 0RF erythromycin 5 mg/gram (0.5 %) Ointment 0.5 inch OPHTHALMIC (EYE) TID 0RF Label Comments: x7 days starting 08/03/21 midodrine 5 mg Tablet 5 mg PO TID Qty: 0 0RF
[2021-08-31 18:01] LABS: COVID-19 Test Negative (Negative)
[2021-08-31] MEDS: Ondansetron ODT 4 MG TAB.RAPDIS TRANSLINGU ×2 (19:06→23:16)
[2021-08-31] MEDS: oxyCODONE HCl Immed Release 5 MG TABLET 10 MG PO ×2 (19:06→23:15)
[2021-08-31 19:17] LABS: MANUAL DIFF FLAG NO
[2021-08-31 19:20] LABS: Basophils Absolute Auto 0.1 X10*3/uL (0.0-0.2); Basophils Percent Auto 0.7 % (0-2); Eosinophils Absolute Auto 0.5 X10*3/uL (0.0-0.4); Eosinophils Percent Auto 7.3 % (0-4); Hematocrit 40.7 % (42.0-52.0); Hemoglobin 13.4 g/dl (14.0-18.0); Imm Gran Abs Auto 0.02 X10*3/uL (0.00-0.03); Imm Gran Pct Auto 0.3 % (0.0-0.4); Lymphocytes Absolute Auto 1.5 X10*3/uL (1.2-4.9); Lymphocytes Percent Auto 20.5 % (20-40); Mean Corpuscular HGB Conc 32.9 g/dl (31.0-36.0); Mean Corpuscular Hemoglobin 29.2 pg (27.0-33.0); Mean Corpuscular Volume 88.7 fL (80.0-98.0); Mean Platelet Volume 8.6 fL (9.4-12.4); Monocytes Absolute Auto 0.6 X10*3/uL (0.1-1.2); Monocytes Percent Auto 7.5 % (2-11); Neutrophils Absolute Auto 4.7 x10*3/uL (2.0-8.3); Neutrophils Percent Auto 63.7 % (45-73); Platelet Count 218 X10*3/uL (160-400); Red Blood Count 4.59 X10*6/uL (4.60-5.80); Red Cell Distribution Width 14.1 % (11.0-16.0); White Blood Count 7.4 X10*3/uL (4.8-10.8)
[2021-08-31 19:38] LABS: Alanine Aminotransferase 11 U/L (0-40); Albumin Level 3.9 g/dL (3.5-5.0); Alkaline Phosphatase 80 U/L (39-117); Anion Gap 14 (12-20); Aspartate Amino Transferase 16 U/L (5-37); Bilirubin Total 0.5 mg/dL (0.0-1.0); Blood Urea Nitrogen 5 mg/dL (9-16); Carbon Dioxide 29 mmol/L (22-29); Chloride 99 mmol/L (96-108); Creatinine Clr Calc Pharmacy 116.5; Estimated Glomerular Filt Rate > 60; Glucose Random 126 mg/dL (60-115); Sodium 138 mmol/L (135-145); Total Protein 6.7 g/dL (6.5-8.0)
[2021-08-31 22:18] LABS: Appearance Urine CLEAR; Color Urine YELLOW; Glucose Urine UA NEG (NEG); Leukocyte Esterase Urine NEG (NEG); Nitrite Urine NEG (NEG); Specific Gravity - Urine 1.015 (1.005-1.025); Urine Blood NEG (NEG); Urine Ketones 40 MG/DL (NEG); Urine Protein NEG (NEG-TRACE)
[2021-08-31] MEDS: levoFLOXacin 500 MG TABLET PO (23:15)
[2021-08-31] MEDS: Albuterol Sulfate 90 MCG 8 GM INHALER 2 PUFF INHALE (23:20)
--- NOTE | 2021-08-31 23:31 | PC.NURSE ---
I assumed nursing care of Mabel at 1900. Since that time he has been alert, oriented x 3. he is frequently requesting pain medicines for severe, diffuse abominal pain - per Mabel. THere is no grimacing, no moaning, no visual indicators of pain. He has been discharged at this time. he protested discharge sevreely - told me he would not be discharged and that he needs to go to a halfway and he insisted that I call a halfway to get him a bed there. I told him Mabel it doesnt work like that and he replied yes it does. youre not doing your job. call a halfway for me now. at this i ceased to entertain mabel with discussion and just repeated Mabel clinton discharged. he replied 'when something happens to me tonight youre going to be sorry. he ambulated out of the ED independently and with steady gait. Respirations non-labored. Room air sats 95%. RR WNL, no cyanosis.
== END 2021-08-31 23:35 | disposition home or self-care (01) ==
PROVIDERS: Emergency Provider Internal Medicine; PCP Internal Medicine Geriatric Medicine
DX: N34.2 Other urethritis (principal); R10.32 Left lower quadrant pain; R35.0 Frequency of micturition; Z20.822 Contact with and (suspected) exposure to COVID-19; Z79.899 Other long term (current) drug therapy; Z87.891 Personal history of nicotine dependence
CPT/HCPCS: 36415; 74176; 80053; 81003; 85025; 87635; 99284

== ENCOUNTER 2021-10-06 15:20 | Inpatient (IN) | payer OTHER, SELFPAY ==
--- NOTE | ~2021-10-06 | CT_ITS ---
EXAM: CT scan of the head and cervical spine. INDICATION: Reason for Exam s/p unwitnessed fall TECHNIQUE: A noncontrast CT scan was performed from the skull base to the vertex. A noncontrast CT scan of the cervical spine was performed from the base of the skull through T1 at 2.5 mm and 1.25 mm collimation. Coronal and sagittal reformats were obtained at the acquisition workstation. This CT examination was performed using dose optimization techniques as appropriate, variously including the following: *Automated exposure control *Adjustment of mA and/or kV according to patient size (this includes techniques or standardized protocols for targeted exams where dose is matched to indication/reason for exam; i.e. extremities or head) *Use of iterative reconstruction technique DLP: 746 and 354 mGy-cm COMPARISON: 06/23/2021 FINDINGS: Head: There is no evidence of acute intracranial hemorrhage or territorial infarction. Garcia-white matter differentiation is preserved. No abnormal mass effect or midline shift. No extra-axial fluid collections. Bifrontal prominent extra axial space is similar to baseline. No abnormal attenuation is demonstrated within the brain parenchyma. Scattered periventricular and deep white matter hypodensities consistent with microangiopathy. The ventricles and sulcal spaces are proportional without hydrocephalus. Proportional prominence of the ventricles and sulcal spaces. No acute osseous or soft tissue abnormalities. The mastoid air cells and visualized portions of the paranasal sinuses are well aerated. Cervical Spine: The atlantooccipital and atlantoaxial articulations remain well aligned. Straightening of the normal cervical lordosis. Otherwise, there is anatomic alignment of the vertebral bodies and posterior elements. No evidence of acute fracture or subluxation. The vertebral body heights and disc spaces are maintained. There is no prevertebral soft tissue swelling. The thyroid gland and remaining cervical soft tissues are normal in appearance. The lung apices demonstrate no abnormalities. CT/CT cervical spine wo con IMPRESSION: No acute intracranial pathology. Acute fracture subluxation cervical spine.
--- NOTE | ~2021-10-06 | CT_ITS ---
EXAMINATION: CT CHEST, ABDOMEN AND PELVIS WITHOUT CONTRAST. CLINICAL INFORMATION: Shortness of breath, ecchymosis, status post fall. COMPARISON: CT abdomen dated from 08/04/2021. CT chest dated from 07/22/2021. TECHNIQUE: Multidetector volumetric imaging was performed from the thoracic inlet through the pubic symphysis without intravenous contrast. Sagittal and coronal reformatted images were obtained on the technologist's workstation. This CT examination was performed using dose optimization techniques as appropriate, variously including the following: *Automated exposure control *Adjustment of mA and/or kV according to patient size (this includes techniques or standardized protocols for targeted exams where dose is matched to indication/reason for exam; i.e. extremities or head) *Use of iterative reconstruction technique DLP: 573 and 900 mGy-cm FINDINGS: CHEST: Lung: Smooth interlobular septal thickening with small bilateral pleural effusions suggesting pulmonary edema. Diffuse bronchial wall thickening. No dense consolidation. Subsegmental atelectasis in the lung bases. The central airways are patent. Mediastinum: Cardiomegaly. Small pericardial effusion. Coronary calcifications and atherosclerotic disease of the thoracic aorta which is of normal diameter. An enlarged 2.3 x 1.9 cm lower pretracheal lymph node (7:22) is unchanged. A 1.4 x 1.1 cm right upper paratracheal lymph node (10:105) is increased in size from 0.8 x 0.8 cm on prior. Other subcentimeter mediastinal lymph nodes are also not significantly changed. Pericardium/Pleura: No pleural effusion. No pleural mass or thickening. No pneumothorax. Chest Wall/Axilla: No lymphadenopathy by size criteria. ABDOMEN/PELVIS: Liver, Gallbladder, Biliary Tree: Hepatomegaly and hepatic steatosis. Normal gallbladder. No biliary ductal dilatation. Pancreas: Unremarkable. Spleen: Unremarkable. Adrenal Glands: Unremarkable. Kidneys and Ureters: Nonspecific bilateral perinephric fat stranding, not significantly changed when compared to August 2021. Redemonstration of a water density cyst in the lateral surface of the mid pole of left kidney. No nephrolithiasis or hydronephrosis. Bladder: Unremarkable. Gastrointestinal Tract: Small hiatal hernia. No bowel obstruction. Extensive sigmoid diverticulosis. Nonspecific rectal wall thickening. Abdominal Wall: No significant hernia is appreciated. Lymphovascular Structures: No lymphadenopathy by size criteria. Scattered atherosclerotic disease. Pelvic Viscera: Unremarkable. Osseus Structures: Bilateral rib fractures with signs of healing, similar to prior. Partially imaged right shoulder arthroplasty. Degenerative changes of the spine. 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 CT/CT abdomen pelvis wo con IMPRESSION: Evaluation of acute traumatic sequela is limited in the absence of intravenous contrast. Similarly, evaluation of subtle spinal fractures is limited in the absence of dedicated reconstructions of the spine. However, accounting for these limitations, no discrete acute traumatic sequela is identified. Findings suggestive of small airways disease and pulmonary edema in the lungs. Hepatomegaly and hepatic steatosis. Similar degree of nonspecific perinephric and retroperitoneal fat stranding. Extensive sigmoid diverticulosis without evidence of acute diverticulitis. Rectal wall thickening which could be seen with proctocolitis. Correlate clinically, and if indicated evaluation with a colonoscopy could be obtained in a nonemergent basis.
--- NOTE | ~2021-10-06 | XR_ITS ---
EXAMINATION: XR SHOULDER, LEFT CLINICAL INFORMATION: Left arm and shoulder pain COMPARISON: Radiographs left shoulder 04/29/2020 TECHNIQUE: Left shoulder is imaged in 3 views. FINDINGS: No fracture, dislocation, destructive process. Again, there are osteoarthritic changes glenohumeral joint. No erosive change. Calcifications superior rotator cuff possibly proximal long head biceps is stable. The acromioclavicular alignment is normal. The left lung apex is clear and shows no pneumothorax or pleural reaction. XR/XR shoulder LT 1V IMPRESSION: -No acute bony abnormality. No fracture or dislocation. -Degenerative changes glenohumeral joint. Acromioclavicular alignment normal. -Probable calcific tendinosis proximal long head biceps similar to prior exam.
[2021-10-06 15:49] VITALS: BP 152/69; PULSE 89; RESP 18; TEMP 37.1; O2SAT 94; BMI 34.9
[2021-10-06 15:53] VITALS: O2SAT 96
--- NOTE | 2021-10-06 16:03 | ECG_ITS ---
Test Reason : FALL Blood Pressure : / mmHG Vent. Rate : 083 BPM Atrial Rate : 083 BPM P-R Int : 170 ms QRS Dur : 078 ms QT Int : 374 ms P-R-T Axes : 053 008 068 degrees QTc Int : 439 ms Poor data quality Normal sinus rhythm Normal ECG When compared with ECG of 03-AUG-2021 16:42, Previous ECG has undetermined rhythm, needs review QRS axis Shifted right Nonspecific T wave abnormality, improved in Anterior leads Referred By: Emily Keller Electronically Signed By:HERMAN TONEY MD
--- NOTE | 2021-10-06 16:04 | ED.FALL ---
HPI - Fall General Chief Complaint: Fall Stated Complaint: Difficulty breathing due to fall Time Seen by Provider: 10/06/21 15:31 Source: patient, EMS and old records reviewed Mode of arrival: EMS Limitations: no limitations History of Present Illness HPI Narrative: 65 yo male with history of alcohol abuse, HFpEF, COPD, DM on insulin, HTN, HLD, aortic stenosis, diverticulitis, obesity who presents to the ER from home via EMS c/o worsening SOB and left sided chest pain after he fell onto his left side 2 days ago. He reports he was sitting on the couch when he stood up too quickly, got dizzy and fell onto the couch arm with his chest and then onto the floor. He denies hitting his head or losing consciousness. He had pain immediately in his left chest wall and has been having a harder time breathing over the last 2 days. He has not been sleeping well due to the pain. He called 911 today due to the pain. He states he cannot walk 5 steps without becoming SOB. MD complaint: fall Onset (ago): day(s) (2) Fall from: standing Fall witnessed: no Place fall occurred: home Loss of consciousness: none Prolonged down time: unclear Symptoms prior to fall: none, lightheadedness and dizziness Location of injury: chest Location of injury - extremities: left: shoulder and arm Severity: severe Severity scale (1-10): 9 Quality: sharp and aching Associated symptoms (after fall): shortness of breath Related Data Home Medications Medication Instructions Recorded Confirmed albuterol sulfate 90 mcg/actuation 2 puff INHALATION Q6H PRN 12/29/20 10/06/21 aerosol inhaler blood sugar diagnostic (FreeStyle 12/29/20 10/06/21 Lite Strips) folic acid 1 mg tablet 1 tab PO DAILY@1700 12/29/20 10/06/21 simvastatin 20 mg tablet 1 tab PO BEDTIME 12/29/20 10/06/21 thiamine HCl (vitamin B1) 100 mg 1 tab PO BEDTIME 12/29/20 10/06/21 tablet aspirin 81 mg tablet,delayed 1 tab PO BEDTIME 02/04/21 10/06/21 release buspirone 5 mg tablet 5 mg PO BID 02/04/21 10/06/21 ramelteon 8 mg tablet 1 tab PO BEDTIME 05/12/21 10/06/21 tamsulosin 0.4 mg capsule 1 cap PO DAILY@1700 05/12/21 10/06/21 omeprazole 20 mg capsule,delayed 1 cap PO BID@0630,1630 06/01/21 10/06/21 release insulin glargine 100 unit/mL 45 unit SUBCUT BEDTIME 06/24/21 10/06/21 subcutaneous solution (Lantus U-100 Insulin) insulin aspart U-100 100 unit/mL 1 sliding scale dose SUBCUT TIDAC 07/21/21 10/06/21 (3 mL) subcutaneous pen (Novolog Flexpen U-100 Insulin aspart) celecoxib 50 mg capsule 1 cap PO BID 10/06/21 10/06/21 gabapentin 300 mg capsule 600 mg PO TID 10/06/21 10/06/21 Allergies Allergy/AdvReac Type Severity Reaction Status Date / Time ENVIRONMENTAL Allergy Mild SNEEZING, Uncoded 10/06/21 15:49 WATERY EYES Review of Systems Review of Systems: Constitutional: No Fever, No Chills ENT/Mouth: No sore throat, No Rhinorrhea, No Swallowing Difficulty Eyes: No Eye Pain, No Swelling, No Redness Cardiovascular: + Chest Pain, + SOB, No Orthopnea, No Edema Respiratory: No Cough, No Sputum, No Wheezing, No dyspnea Gastrointestinal: No Nausea, No Vomiting, No Diarrhea, No abdominal Pain, No Hematochezia, No Melena Genitourinary: No Dysuria, No Urinary Frequency, No Hematuria Musculoskeletal: No joint pain, No Myalgias Skin: No Skin Lesions, No rash Neuro: + Weakness, No Numbness, + Dizziness, No Headache Psych: + Anxiety/Panic, No Depression Heme/Lymph:+ Bruising, No Lymphadenopathy Endocrine: No Polyuria, No Polydipsia [facility] Past Medical History Medical History LAUREN (acute kidney injury) Alcohol abuse Anxiety COPD (chronic obstructive pulmonary disease) Diabetes mellitus type 1 Diastolic dysfunction Diastolic heart failure Fall HLD (hyperlipidemia) Hypertension Nonrheumatic aortic (valve) stenosis Obesity Pneumonia Surgical History H/O elbow surgery H/O shoulder surgery History of hydrocelectomy S/P TURP Family History Family History Father Diabetes Mother Diabetes Social History Social History Household Members: None Housing: [facility] Do you presently have visiting nurse or other home services: Yes (used to live in apt. has been in [place] for ahwile ) Unable to assess alcohol history related to: Unable to respond Alcohol intake: current Alcohol intake frequency: 0-2 drinks per day Alcohol type: hard liquor Patient Tobacco Use Status: Former Tobacco user Tobacco use type: Cigar e-Cigarette/Vaping Use: Currently Using Second Hand Smoke Exposure: No Advance Directives: Yes Advance Directives on File: Yes Advance Directives Date on File: 10/11/20 service: No Current occupational status: unemployed and disabled Physical Exam Vital Signs: Vital Signs: Last Vital Signs Temp 97.6 F 10/06/21 19:21 Pulse 97 10/06/21 19:21 Resp 16 10/06/21 19:01 BP 140/68 H 10/06/21 19:21 Pulse Ox 86 L 10/06/21 21:53 BMI result Body Mass Index 34.9 Appearance: Alert. Oriented X3. No acute distress. Eyes: Pupils equal, round and reactive to light. ENT: Pharynx normal. Neck: Normal inspection. Neck supple. Fungal dermatitis within the folds CVS: Normal heart rate and rhythm. Pulses normal. Respiratory: Anterior left chest wall with diffuse, faint ecchymosis from under the left clavicle to the lower chest, Mild respiratory distress w/ pain upon inspiration. Diffuse faint wheezing throughout, L>R. Abdomen: Obese, mild ecchymosis in LUQ with moderate tenderness, Soft normal, +BS x4. no flank ecchymosis Skin: Skin warm and dry. Normal skin color. Normal skin turgor. No rashes. Extremities: Left upper arm and shoulder with mild diffuse tenderness, pain with abduction at 90 degrees. No lower extremity edema, atraumatic LE. Neuro: Oriented X 3. No motor deficit. No sensory deficit. No focal deficits. Course Course Course Narrative: 65 y/o male with history of obesity, HFpEF, COPD, DM, anemia, hx falls, diverticulitis, hx acute renal failure and rhabdomyolysis who presents to the ER for left sided chest pain and SOB s/p fall 2 days ago. He has ecchymosis and tenderness on his left chest wall and LUQ. Dry CT scans ordered for evaluation of traumatic injury and bleeding (dry due to national IV contrast dye shortage). He arrives on 2L NC with SpO2 100%, weaned off and maintaining 97%. Wheezing noted, duoneb ordered. Will check lab workup and follow up CT scans. Reevaluation(s) Reevaluation #1: Initial troponin 243. He has left-sided chest pain but seems to be more chest wall pain with obvious tenderness and ecchymosis on examination. He has no ischemic changes on his EKG. Plan to get 3 hour repeat. He has wheezing and shortness of breath, DuoNeb ordered. Will reassess. CT scans are pending. Reevaluation #2: CT scans without traumatic injury. No rib fractures. He has small bilateral pleural effusions and pulmonary edema with a BNP of 495, this is the highest it has been upon review of his previous records. Most likely CHF exacerbation. He continues to c/o pain with movement and deep breaths. Weaned off of O2 but he desaturated to 86% on room air. Placed back on 2L NC. Will plan for admission. Reevaluation #3: Repeat troponin 247. Doubt ACS. Dr. Carter agrees with diuresis. Patient updated on plan of care for admission. TT Dr. Foreman for admit Consultations Consultation #1: Cardiology Dr. Carter MDM - Fall Medical Records Attestation: I reviewed the patient's medical records. Lab Data Attestation: I reviewed the patient's lab results. Result diagrams: 10/06/21 17:07 10/06/21 17:07 Labs: Lab Results 10/06/21 10/06/21 10/06/21 Range/Units 17:07 17:07 17:07 WBC 7.2 (4.8-10.8) X10*3/uL RBC 4.33 L (4.60-5.80) X10*6/uL Hgb 13.0 L (14.0-18.0) g/dl Hct 38.5 L (42.0-52.0) % MCV 88.9 (80.0-98.0) fL MCH 30.0 (27.0-33.0) pg MCHC 33.8 (31.0-36.0) g/dl RDW 15.0 (11.0-16.0) % Plt Count 192 (160-400) X10*3/uL MPV 8.3 L (9.4-12.4) fL Immature Gran % (Auto) 0.1 (0.0-0.4) % Neut % (Auto) 71.3 (45-73) % Lymph % (Auto) 16.3 L (20-40) % Moody % (Auto) 7.2 (2-11) % Eos % (Auto) 4.3 H (0-4) % Baso % (Auto) 0.8 (0-2) % Lymph # (Auto) 1.2 (1.2-4.9) X10*3/uL Moody # (Auto) 0.5 (0.1-1.2) X10*3/uL Eos # (Auto) 0.3 (0.0-0.4) X10*3/uL Baso # (Auto) 0.1 (0.0-0.2) X10*3/uL Abs Immat Gran (auto) 0.01 (0.00-0.03) X10*3/uL Absolute Neuts (auto) 5.2 (2.0-8.3) x10*3/uL Absolute Nucleated RBC 0.000 (0.0-0.012) X10*3/uL Nucleated RBC % (auto) 0.0 (0.0-0.2) /100WBC PT (9.9-13.0) SEC INR (0.9-1.1) APTT (24.1-38.0) SEC Sodium 138 (135-145) mmol/L Potassium 3.2 L (3.3-5.1) mmol/L Chloride 96 (96-108) mmol/L Carbon Dioxide 32 H (22-29) mmol/L Anion Gap 13 (12-20) BUN 8 L D (9-16) mg/dL Creatinine 0.81 (0.5-1.4) mg/dL Estim Creat Clear Calc 106.4 Estimated GFR > 60 Random Glucose 104 (60-115) mg/dL Calcium 8.9 (8.4-10.2) mg/dL Magnesium 1.3 L* (1.6-2.6) mg/dL Total Bilirubin 0.4 (0.0-1.0) mg/dL Direct Bilirubin 0.2 (0.0-0.5) mg/dL AST 16 (5-37) U/L ALT 16 (0-40) U/L Alkaline Phosphatase 95 (39-117) U/L Total Creatine Kinase (38-174) U/L Troponin I High Sens (<3.5-35.0) ng/L B-Natriuretic Peptide (<100) pg/mL Total Protein 6.0 L (6.5-8.0) g/dL Albumin 3.6 (3.5-5.0) g/dL Urine Color Urine Appearance Urine pH (5.0-8.0) Ur Specific [place] (1.005-1.025) Urine Protein (NEG-TRACE) MG/DL Urine Glucose (UA) (NEG) MG/DL Urine Ketones (NEG) MG/DL Urine Blood (NEG) Urine Nitrite (NEG) Ur Leukocyte Esterase (NEG) Urine Opiates Screen (Not Detect) Urine Fentanyl Screen (Not Detect) Ur Barbiturates Screen (Not Detect) Ur Phencyclidine Scrn (Not Detect) Ur Amphetamines Screen (Not Detect) U Benzodiazepines Scrn (Not Detect) Urine Cocaine Screen (Not Detect) U Marijuana (THC) Screen (Not Detect) Ethyl Alcohol mg/dL COVID-19 (ELIER) Negative (Negative) COVID-19 Clin Com See Note Blood Type Antibody Screen 10/06/21 10/06/21 10/06/21 Range/Units 17:07 17:07 17:07 WBC (4.8-10.8) X10*3/uL RBC (4.60-5.80) X10*6/uL Hgb (14.0-18.0) g/dl Hct (42.0-52.0) % MCV (80.0-98.0) fL MCH (27.0-33.0) pg MCHC (31.0-36.0) g/dl RDW (11.0-16.0) % Plt Count (160-400) X10*3/uL MPV (9.4-12.4) fL Immature Gran % (Auto) (0.0-0.4) % Neut % (Auto) (45-73) % Lymph % (Auto) (20-40) % Moody % (Auto) (2-11) % Eos % (Auto) (0-4) % Baso % (Auto) (0-2) % Lymph # (Auto) (1.2-4.9) X10*3/uL Moody # (Auto) (0.1-1.2) X10*3/uL Eos # (Auto) (0.0-0.4) X10*3/uL Baso # (Auto) (0.0-0.2) X10*3/uL Abs Immat Gran (auto) (0.00-0.03) X10*3/uL Absolute Neuts (auto) (2.0-8.3) x10*3/uL Absolute Nucleated RBC (0.0-0.012) X10*3/uL Nucleated RBC % (auto) (0.0-0.2) /100WBC PT 12.6 (9.9-13.0) SEC INR 1.1 (0.9-1.1) APTT 34.4 (24.1-38.0) SEC Sodium (135-145) mmol/L Potassium (3.3-5.1) mmol/L Chloride (96-108) mmol/L Carbon Dioxide (22-29) mmol/L Anion Gap (12-20) BUN (9-16) mg/dL Creatinine (0.5-1.4) mg/dL Estim Creat Clear Calc Estimated GFR Random Glucose (60-115) mg/dL Calcium (8.4-10.2) mg/dL Magnesium (1.6-2.6) mg/dL Total Bilirubin (0.0-1.0) mg/dL Direct Bilirubin (0.0-0.5) mg/dL AST (5-37) U/L ALT (0-40) U/L Alkaline Phosphatase (39-117) U/L Total Creatine Kinase (38-174) U/L Troponin I High Sens 243.9 H* D (<3.5-35.0) ng/L B-Natriuretic Peptide 495 H (<100) pg/mL Total Protein (6.5-8.0) g/dL Albumin (3.5-5.0) g/dL Urine Color Urine Appearance Urine pH (5.0-8.0) Ur Specific [place] (1.005-1.025) Urine Protein (NEG-TRACE) MG/DL Urine Glucose (UA) (NEG) MG/DL Urine Ketones (NEG) MG/DL Urine Blood (NEG) Urine Nitrite (NEG) Ur Leukocyte Esterase (NEG) Urine Opiates Screen (Not Detect) Urine Fentanyl Screen (Not Detect) Ur Barbiturates Screen (Not Detect) Ur Phencyclidine Scrn (Not Detect) Ur Amphetamines Screen (Not Detect) U Benzodiazepines Scrn (Not Detect) Urine Cocaine Screen (Not Detect) U Marijuana (THC) Screen (Not Detect) Ethyl Alcohol < 10 mg/dL COVID-19 (ELIER) (Negative) COVID-19 Clin Com Blood Type Antibody Screen 10/06/21 10/06/21 10/06/21 Range/Units 17:07 17:50 17:50 WBC (4.8-10.8) X10*3/uL RBC (4.60-5.80) X10*6/uL Hgb (14.0-18.0) g/dl Hct (42.0-52.0) % MCV (80.0-98.0) fL MCH (27.0-33.0) pg MCHC (31.0-36.0) g/dl RDW (11.0-16.0) % Plt Count (160-400) X10*3/uL MPV (9.4-12.4) fL Immature Gran % (Auto) (0.0-0.4) % Neut % (Auto) (45-73) % Lymph % (Auto) (20-40) % Moody % (Auto) (2-11) % Eos % (Auto) (0-4) % Baso % (Auto) (0-2) % Lymph # (Auto) (1.2-4.9) X10*3/uL Moody # (Auto) (0.1-1.2) X10*3/uL Eos # (Auto) (0.0-0.4) X10*3/uL Baso # (Auto) (0.0-0.2) X10*3/uL Abs Immat Gran (auto) (0.00-0.03) X10*3/uL Absolute Neuts (auto) (2.0-8.3) x10*3/uL Absolute Nucleated RBC (0.0-0.012) X10*3/uL Nucleated RBC % (auto) (0.0-0.2) /100WBC PT (9.9-13.0) SEC INR (0.9-1.1) APTT (24.1-38.0) SEC Sodium (135-145) mmol/L Potassium (3.3-5.1) mmol/L Chloride (96-108) mmol/L Carbon Dioxide (22-29) mmol/L Anion Gap (12-20) BUN (9-16) mg/dL Creatinine (0.5-1.4) mg/dL Estim Creat Clear Calc Estimated GFR Random Glucose (60-115) mg/dL Calcium (8.4-10.2) mg/dL Magnesium (1.6-2.6) mg/dL Total Bilirubin (0.0-1.0) mg/dL Direct Bilirubin (0.0-0.5) mg/dL AST (5-37) U/L ALT (0-40) U/L Alkaline Phosphatase (39-117) U/L Total Creatine Kinase 72 D (38-174) U/L Troponin I High Sens (<3.5-35.0) ng/L B-Natriuretic Peptide (<100) pg/mL Total Protein (6.5-8.0) g/dL Albumin (3.5-5.0) g/dL Urine Color YELLOW Urine Appearance CLEAR Urine pH 7.0 (5.0-8.0) Ur Specific [place] 1.010 (1.005-1.025) Urine Protein NEG (NEG-TRACE) MG/DL Urine Glucose (UA) NEG (NEG) MG/DL Urine Ketones NEG (NEG) MG/DL Urine Blood NEG (NEG) Urine Nitrite NEG (NEG) Ur Leukocyte Esterase NEG (NEG) Urine Opiates Screen Not Detected (Not Detect) Urine Fentanyl Screen Not Detected (Not Detect) Ur Barbiturates Screen Not Detected (Not Detect) Ur Phencyclidine Scrn Not Detected (Not Detect) Ur Amphetamines Screen Not Detected (Not Detect) U Benzodiazepines Scrn Not Detected (Not Detect) Urine Cocaine Screen Not Detected (Not Detect) U Marijuana (THC) Screen Not Detected (Not Detect) Ethyl Alcohol mg/dL COVID-19 (ELIER) (Negative) COVID-19 Clin Com Blood Type Antibody Screen 10/06/21 10/06/21 Range/Units 20:24 20:24 WBC (4.8-10.8) X10*3/uL RBC (4.60-5.80) X10*6/uL Hgb (14.0-18.0) g/dl Hct (42.0-52.0) % MCV (80.0-98.0) fL MCH (27.0-33.0) pg MCHC (31.0-36.0) g/dl RDW (11.0-16.0) % Plt Count (160-400) X10*3/uL MPV (9.4-12.4) fL Immature Gran % (Auto) (0.0-0.4) % Neut % (Auto) (45-73) % Lymph % (Auto) (20-40) % Moody % (Auto) (2-11) % Eos % (Auto) (0-4) % Baso % (Auto) (0-2) % Lymph # (Auto) (1.2-4.9) X10*3/uL Moody # (Auto) (0.1-1.2) X10*3/uL Eos # (Auto) (0.0-0.4) X10*3/uL Baso # (Auto) (0.0-0.2) X10*3/uL Abs Immat Gran (auto) (0.00-0.03) X10*3/uL Absolute Neuts (auto) (2.0-8.3) x10*3/uL Absolute Nucleated RBC (0.0-0.012) X10*3/uL Nucleated RBC % (auto) (0.0-0.2) /100WBC PT (9.9-13.0) SEC INR (0.9-1.1) APTT (24.1-38.0) SEC Sodium (135-145) mmol/L Potassium (3.3-5.1) mmol/L Chloride (96-108) mmol/L Carbon Dioxide (22-29) mmol/L Anion Gap (12-20) BUN (9-16) mg/dL Creatinine (0.5-1.4) mg/dL Estim Creat Clear Calc Estimated GFR Random Glucose (60-115) mg/dL Calcium (8.4-10.2) mg/dL Magnesium (1.6-2.6) mg/dL Total Bilirubin (0.0-1.0) mg/dL Direct Bilirubin (0.0-0.5) mg/dL AST (5-37) U/L ALT (0-40) U/L Alkaline Phosphatase (39-117) U/L Total Creatine Kinase (38-174) U/L Troponin I High Sens 247.3 H* (<3.5-35.0) ng/L B-Natriuretic Peptide (<100) pg/mL Total Protein (6.5-8.0) g/dL Albumin (3.5-5.0) g/dL Urine Color Urine Appearance Urine pH (5.0-8.0) Ur Specific [place] (1.005-1.025) Urine Protein (NEG-TRACE) MG/DL Urine Glucose (UA) (NEG) MG/DL Urine Ketones (NEG) MG/DL Urine Blood (NEG) Urine Nitrite (NEG) Ur Leukocyte Esterase (NEG) Urine Opiates Screen (Not Detect) Urine Fentanyl Screen (Not Detect) Ur Barbiturates Screen (Not Detect) Ur Phencyclidine Scrn (Not Detect) Ur Amphetamines Screen (Not Detect) U Benzodiazepines Scrn (Not Detect) Urine Cocaine Screen (Not Detect) U Marijuana (THC) Screen (Not Detect) Ethyl Alcohol mg/dL COVID-19 (ELIER) (Negative) COVID-19 Clin Com Blood Type O Positive Antibody Screen NEGATIVE ECG Data Attestation: I personally reviewed and interpreted this ECG as follows: ECG interpretation date: 10/06/21 ECG interpretation time: 20:29 Prior ECG tracings: available for review Interpretation: Normal sinus rhythm, heart rate 83 beats per minute, normal NE interval, normal QTC, no ST segment elevations or depressions. Critical Care Time Critical Care Time Critical Care Time: Yes Total Critical Care Time: 46 Attestation: I have personally provided critical care time exclusive of time spent on separately billable procedures. Time includes review of lab data, radiology results, discussion with consultants, and monitoring for potential decompensation. Intervention performed as documented. Discharge Plan Discharge Clinical Impression: Acute respiratory failure with hypoxia, Contusion of rib on left side, Acute diastolic CHF (congestive heart failure), Elevated troponin, Bilateral pleural effusion Patient Disposition: Admitted As Inpatient
[2021-10-06] MEDS: oxyCODONE HCl Immed Release 5 MG TABLET PO (16:27)
[2021-10-06 16:32] VITALS: PULSE 91; RESP 20; O2SAT 97
[2021-10-06] MEDS: Albuterol/Iprat 2.5/0.5MG 3 ML AMPUL.NEB INHALE (16:32)
[2021-10-06 17:11] LABS: MANUAL DIFF FLAG NO
[2021-10-06 17:14] LABS: Basophils Absolute Auto 0.1 X10*3/uL (0.0-0.2); Basophils Percent Auto 0.8 % (0-2); Eosinophils Absolute Auto 0.3 X10*3/uL (0.0-0.4); Eosinophils Percent Auto 4.3 % (0-4); Hematocrit 38.5 % (42.0-52.0); Imm Gran Abs Auto 0.01 X10*3/uL (0.00-0.03); Imm Gran Pct Auto 0.1 % (0.0-0.4); Lymphocytes Absolute Auto 1.2 X10*3/uL (1.2-4.9); Lymphocytes Percent Auto 16.3 % (20-40); Mean Corpuscular HGB Conc 33.8 g/dl (31.0-36.0); Mean Corpuscular Volume 88.9 fL (80.0-98.0); Mean Platelet Volume 8.3 fL (9.4-12.4); Monocytes Absolute Auto 0.5 X10*3/uL (0.1-1.2); Monocytes Percent Auto 7.2 % (2-11); Neutrophils Absolute Auto 5.2 x10*3/uL (2.0-8.3); Neutrophils Percent Auto 71.3 % (45-73); Platelet Count 192 X10*3/uL (160-400); Red Blood Count 4.33 X10*6/uL (4.60-5.80); White Blood Count 7.2 X10*3/uL (4.8-10.8)
[2021-10-06 17:19] LABS: INTERNATIONAL NORM RATIO 1.1 (0.9-1.1); Prothrombin Time 12.6 SEC (9.9-13.0)
[2021-10-06 17:22] LABS: Partial Thromboplastin Time 34.4 SEC (24.1-38.0)
[2021-10-06 17:26] LABS: Ethanol < 10 mg/dL
[2021-10-06 17:29] LABS: COVID-19 Test Negative (Negative)
[2021-10-06 17:31] LABS: Alanine Aminotransferase 16 U/L (0-40); Albumin Level 3.6 g/dL (3.5-5.0); Alkaline Phosphatase 95 U/L (39-117); Anion Gap 13 (12-20); Aspartate Amino Transferase 16 U/L (5-37); Bilirubin Direct 0.2 mg/dL (0.0-0.5); Bilirubin Total 0.4 mg/dL (0.0-1.0); Blood Urea Nitrogen 8 mg/dL (9-16); Calcium 8.9 mg/dL (8.4-10.2); Carbon Dioxide 32 mmol/L (22-29); Chloride 96 mmol/L (96-108); Creatinine Clr Calc Pharmacy 106.4; Estimated Glomerular Filt Rate > 60; Glucose Random 104 mg/dL (60-115); Magnesium 1.3 mg/dL (1.6-2.6); Potassium 3.2 mmol/L (3.3-5.1); Sodium 138 mmol/L (135-145)
[2021-10-06 17:45] LABS: B Type Natriuretic Peptide 495 pg/mL (<100); Troponin-I High Sensitivity 243.9 ng/L (<3.5-35.0)
[2021-10-06 17:56] LABS: Appearance Urine CLEAR; Color Urine YELLOW; Glucose Urine UA NEG (NEG); Leukocyte Esterase Urine NEG (NEG); Nitrite Urine NEG (NEG); Urine Blood NEG (NEG); Urine Ketones NEG (NEG); Urine Protein NEG (NEG-TRACE)
[2021-10-06] MEDS: Magnesium Sulfate/H2O 2 GM/50 ML PIGGYBACK IV (18:03)
[2021-10-06] MEDS: Potassium Chloride ER 20 MEQ TAB.ER.PRT PO ×2 (18:03→21:43)
[2021-10-06 18:13] LABS: Amphetamine Screen Urine Not Detected (Not Detect); Barbiturates, Urine Not Detected (Not Detect); Benzodiazepines Screen Urine Not Detected (Not Detect); Cannabinoid Screen Urine Not Detected (Not Detect); Cocaine Screen Urine Not Detected (Not Detect); Fentanyl, urine Not Detected (Not Detect); Opiate Screen Urine Not Detected (Not Detect); Phencyclidine Screen Urine Not Detected (Not Detect)
[2021-10-06] MEDS: HYDROmorphone HCl 0.5 MG/0.5 ML SYRINGE IVPUSH ×2 (19:00→21:43)
[2021-10-06 19:01] VITALS: BP 139/76; PULSE 87; RESP 16; O2SAT 97
[2021-10-06 19:21] VITALS: BP 140/68; PULSE 97; TEMP 36.4; O2SAT 98
[2021-10-06] MEDS: Ketorolac Tromethamine 30 MG/ML VIAL IVPUSH (20:25)
[2021-10-06] MEDS: Magnesium Oxide 400 MG TABLET 800 MG PO (20:45)
[2021-10-06 21:17] LABS: Troponin-I High Sensitivity 247.3 ng/L (<3.5-35.0)
[2021-10-06] MEDS: Furosemide 40 MG/4 ML VIAL IVPUSH (21:43)
[2021-10-06] MEDS: LORazepam 1 MG TABLET PO (21:43)
--- NOTE | 2021-10-06 21:51 | PC.NURSE ---
Addendum entered by Adolfo Fatima RN 10/07/21 04:18: has had a mostly uneventful night. He remains on 2L nasal cannuls and his O2 sats have remained at 95% or better. His RR has remained WNL and non-labored. He speaks in full sentences. There has been no cyanosis. At this time - 0400 - he admits to feeling wheezy and is requesting an Albuterol neb, which he uses at home when he feels wheezy. RT at bedside providing neb. Pt continues to await an inpatient bed assignment. We will continue to monitor Mara. Addendum entered by Adolfo Fatima RN 10/06/21 22:08: is aware that he is to be admitted to the hospital and verbalizes an understanding of this. He is voiding into bedside urinal without difficulty. Urine clear and yellow. Will continue to measure output. Original Note: I assumed nursing care of at 1900. Since that time he has been alert, oriented x 3, resting in bed with frequent complains of pain everywhere but mostly on my meft side. Pt shows me an area of the left side of his chest/upper abdomen that are mildly bruised, stating he fell and struck that side of his body, prompting him to come to the ED today. Skin is intact. Again, mild bruising noted. He denies chest pain. Respirations are non-labored, RR 18. Room air sat's dipped to 86% in front of ER PA, who rthen requested pt be given IVP Lasix and be admitted to hospital. Lasix administered, pt has urinal at bedside and is aware that we must measure his output. He is taking PO fluids without difficulty.
[2021-10-06 21:53] VITALS: O2SAT 86
--- NOTE | 2021-10-06 22:54 | P.HPHOSP_ITS ---
History of Present Illness Date of Service: 10/06/21 Chief Complaint: left sided pain This is a 65-year-old male with past medical history diastolic heart failure, COPD, diabetes, hypertension, hyperlipidemia, history of alcohol abuse, nonrheumatic aortic valve stenosis, history of diverticulitis, rhabdomyolysis, and hyponatremia presents to the hospital with complaints of left-sided pain. Patient reports that about 3 days ago he had a fall on the left side after getting up too fast and feeling dizzy. Patient reports no loss of consciousness, no headache, no change in vision, no chest pain, but has pain fr om the left shoulder all the way to the left hip. Patient reports no prodromal symptoms. Reports that he got up too fast from his bed felt dizzy and lost his balance. The pain in the left is worse with breathing, movement. He denies alcohol use although it is in his history with alcohol withdrawal. Patient reports that he has also been feeling progressively worsening shortness of breath, he has a dry cough, no lower extremity edema. He has not had any orthopnea or PND. Patient denies any fever no chills, no abdominal pain nausea or vomiting, no diarrhea constipation, no urinary symptoms. On arrival to the ED patient hemodynamically stable but was found to be hypoxic satting 86% on room air Labs are found to be significant for WBC count of 7.2, hemoglobin of 13, hematocrit 38.5, potassium of 3.2, magnesium of 1.3, troponin of 245, repeat of 247, UA negative, alcohol negative, UDS negative, COVID-19 negative BNP of 495, Chest CT showed no discrete acute traumatic sequelae, finding suggestive of small airway disease and pulmonary edema, CT abdomen showed possible proctitis Head and cervical spine CT showed no acute intracranial pathology, and no acute fracture subluxation of the cervical spine. Case was discussed with Cardiology, patient will be admitted for evaluation and management of CHF Review of Systems Review of Systems: Yes all other systems are reviewed and are negative [facility] Medical History (Updated 10/07/21 @ 06:40 by Danuta Foreman MD) LAUREN (acute kidney injury) Alcohol abuse Anxiety COPD (chronic obstructive pulmonary disease) Diabetes mellitus type 1 Diastolic dysfunction Diastolic heart failure Fall HLD (hyperlipidemia) Hypertension Nonrheumatic aortic (valve) stenosis Obesity Pneumonia Family History Father Diabetes Mother Diabetes Surgical History H/O elbow surgery H/O shoulder surgery History of hydrocelectomy S/P TURP Social History Household Members: None Housing: Correction Do you presently have visiting nurse or other home services: Yes (used to live in apt. has been in [place] for ahwile ) Unable to assess alcohol history related to: Unable to respond Alcohol intake: current Alcohol intake frequency: 0-2 drinks per day Alcohol type: hard liquor Patient Tobacco Use Status: Former Tobacco user Tobacco use type: Cigar e-Cigarette/Vaping Use: Currently Using Second Hand Smoke Exposure: No Use of substances other than those prescribed or required for medical reasons: No Advance Directives: Yes Advance Directives on File: Yes Advance Directives Date on File: 10/11/20 service: No Current occupational status: unemployed and disabled Meds Allergies Allergy/AdvReac Type Severity Reaction Status Date / Time ENVIRONMENTAL Allergy Mild SNEEZING, Uncoded 10/06/21 15:49 WATERY EYES Active Medications: Current Medications Pharmacy Consult (Consult Rx Perform Med Rec) 1 each MISCELLANE ONCE PRN PRN Reason: Consult order Home Medications Medication Instructions Recorded Confirmed Last Taken Type albuterol sulfate 90 mcg/actuation 2 puff INHALATION Q6H PRN 12/29/20 10/06/21 10/06/21 History aerosol inhaler blood sugar diagnostic (FreeStyle 12/29/20 10/06/21 Unknown History Lite Strips) folic acid 1 mg tablet 1 tab PO DAILY@1700 12/29/20 10/06/21 10/06/21 History simvastatin 20 mg tablet 1 tab PO BEDTIME 12/29/20 10/06/21 10/05/21 History thiamine HCl (vitamin B1) 100 mg 1 tab PO BEDTIME 12/29/20 10/06/21 10/05/21 History tablet aspirin 81 mg tablet,delayed 1 tab PO BEDTIME 02/04/21 10/06/21 10/05/21 History release buspirone 5 mg tablet 5 mg PO BID 02/04/21 10/06/21 10/06/21 History ramelteon 8 mg tablet 1 tab PO BEDTIME 05/12/21 10/06/21 10/05/21 History tamsulosin 0.4 mg capsule 1 cap PO DAILY@1700 05/12/21 10/06/21 10/06/21 History omeprazole 20 mg capsule,delayed 1 cap PO BID@0630,1630 06/01/21 10/06/21 10/06/21 History release insulin glargine 100 unit/mL 45 unit SUBCUT BEDTIME 06/24/21 10/06/21 10/05/21 History subcutaneous solution (Lantus U-100 Insulin) insulin aspart U-100 100 unit/mL 1 sliding scale dose SUBCUT TIDAC 07/21/2110/06/21 History (3 mL) subcutaneous pen (Novolog Flexpen U-100 Insulin aspart) celecoxib 50 mg capsule 1 cap PO BID 10/06/21 10/06/21 10/06/21 History gabapentin 300 mg capsule 600 mg PO TID 10/06/21 10/06/21 10/05/21 History Physical Exam Vital Signs and Narrative: Vital Signs: Last Vital Signs Temp 97.6 F 10/06/21 19:21 Pulse 97 10/06/21 19:21 Resp 16 10/06/21 19:01 BP 140/68 H 10/06/21 19:21 Pulse Ox 86 L 10/06/21 21:53 BMI result Body Mass Index 34.9 Const: General: cooperative and no acute distress Orientation/consciousness: patient oriented x3 Eyes: General: appearance normal, both eyes and all related structures Chest: Other: Pain no palpation of the left chest wall Resp: Effort & Inspection: normal respiratory effort Auscultation: clear to auscultation bilaterally Cardio: Rate: regular rate Rhythm: regular rhythm GI: Palpation (GI): Soft to palpation Auscultation: normal bowel sounds Skin: General skin exam: no rashes or lesions noted Neuro: General: patient oriented x3 Cognition (Neuro): normal cognition Extrem: Other: No lower extremity edema identified General: Yes normal to inspection and Yes no pedal edema Results Labs CBC and Chem 7: 10/06/21 17:07 10/06/21 17:07 Labs: Laboratory Results - last 24 hr 10/06/21 10/06/21 10/06/21 17:07 17:07 17:07 MCV 88.9 MCH 30.0 MCHC 33.8 RDW 15.0 Plt Count 192 MPV 8.3 L Immature Gran % (Auto) 0.1 Neut % (Auto) 71.3 Lymph % (Auto) 16.3 L Sampson % (Auto) 7.2 Eos % (Auto) 4.3 H Baso % (Auto) 0.8 Lymph # (Auto) 1.2 Sampson # (Auto) 0.5 Eos # (Auto) 0.3 Baso # (Auto) 0.1 Abs Immat Gran (auto) 0.01 Absolute Neuts (auto) 5.2 Absolute Nucleated RBC 0.000 Nucleated RBC % (auto) 0.0 PT INR APTT Anion Gap 13 Estim Creat Clear Calc 106.4 Estimated GFR > 60 Random Glucose 104 Calcium 8.9 Magnesium 1.3 L* Total Bilirubin 0.4 Direct Bilirubin 0.2 AST 16 ALT 16 Alkaline Phosphatase 95 Total Creatine Kinase Troponin I High Sens B-Natriuretic Peptide Total Protein 6.0 L Albumin 3.6 Urine Color Urine Appearance Urine pH Ur Specific [place] Urine Protein Urine Glucose (UA) Urine Ketones Urine Blood Urine Nitrite Ur Leukocyte Esterase Urine Opiates Screen Urine Fentanyl Screen Ur Barbiturates Screen Ur Phencyclidine Scrn Ur Amphetamines Screen U Benzodiazepines Scrn Urine Cocaine Screen U Marijuana (THC) Screen Ethyl Alcohol COVID-19 (ELIER) Negative COVID-19 Clin Com See Note Blood Type Antibody Screen 10/06/21 10/06/21 10/06/21 17:07 17:07 17:07 MCV MCH MCHC RDW Plt Count MPV Immature Gran % (Auto) Neut % (Auto) Lymph % (Auto) Sampson % (Auto) Eos % (Auto) Baso % (Auto) Lymph # (Auto) Sampson # (Auto) Eos # (Auto) Baso # (Auto) Abs Immat Gran (auto) Absolute Neuts (auto) Absolute Nucleated RBC Nucleated RBC % (auto) PT 12.6 INR 1.1 APTT 34.4 Anion Gap Estim Creat Clear Calc Estimated GFR Random Glucose Calcium Magnesium Total Bilirubin Direct Bilirubin AST ALT Alkaline Phosphatase Total Creatine Kinase Troponin I High Sens 243.9 H* D B-Natriuretic Peptide 495 H Total Protein Albumin Urine Color Urine Appearance Urine pH Ur Specific [place] Urine Protein Urine Glucose (UA) Urine Ketones Urine Blood Urine Nitrite Ur Leukocyte Esterase Urine Opiates Screen Urine Fentanyl Screen Ur Barbiturates Screen Ur Phencyclidine Scrn Ur Amphetamines Screen U Benzodiazepines Scrn Urine Cocaine Screen U Marijuana (THC) Screen Ethyl Alcohol < 10 COVID-19 (ELIER) COVID-19 [employer] Com Blood Type Antibody Screen 10/06/21 10/06/21 10/06/21 17:07 17:50 17:50 MCV MCH MCHC RDW Plt Count MPV Immature Gran % (Auto) Neut % (Auto) Lymph % (Auto) Sampson % (Auto) Eos % (Auto) Baso % (Auto) Lymph # (Auto) Sampson # (Auto) Eos # (Auto) Baso # (Auto) Abs Immat Gran (auto) Absolute Neuts (auto) Absolute Nucleated RBC Nucleated RBC % (auto) PT INR APTT Anion Gap Estim Creat Clear Calc Estimated GFR Random Glucose Calcium Magnesium Total Bilirubin Direct Bilirubin AST ALT Alkaline Phosphatase Total Creatine Kinase 72 D Troponin I High Sens B-Natriuretic Peptide Total Protein Albumin Urine Color YELLOW Urine Appearance CLEAR Urine pH 7.0 Ur Specific [place] 1.010 Urine Protein NEG Urine Glucose (UA) NEG Urine Ketones NEG Urine Blood NEG Urine Nitrite NEG Ur Leukocyte Esterase NEG Urine Opiates Screen Not Detected Urine Fentanyl Screen Not Detected Ur Barbiturates Screen Not Detected Ur Phencyclidine Scrn Not Detected Ur Amphetamines Screen Not Detected U Benzodiazepines Scrn Not Detected Urine Cocaine Screen Not Detected U Marijuana (THC) Screen Not Detected Ethyl Alcohol COVID-19 (ELIER) COVID-19 [employer] Com Blood Type Antibody Screen 10/06/21 10/06/21 20:24 20:24 MCV MCH MCHC RDW Plt Count MPV Immature Gran % (Auto) Neut % (Auto) Lymph % (Auto) Sampson % (Auto) Eos % (Auto) Baso % (Auto) Lymph # (Auto) Sampson # (Auto) Eos # (Auto) Baso # (Auto) Abs Immat Gran (auto) Absolute Neuts (auto) Absolute Nucleated RBC Nucleated RBC % (auto) PT INR APTT Anion Gap Estim Creat Clear Calc Estimated GFR Random Glucose Calcium Magnesium Total Bilirubin Direct Bilirubin AST ALT Alkaline Phosphatase Total Creatine Kinase Troponin I High Sens 247.3 H* B-Natriuretic Peptide Total Protein Albumin Urine Color Urine Appearance Urine pH Ur Specific [place] Urine Protein Urine Glucose (UA) Urine Ketones Urine Blood Urine Nitrite Ur Leukocyte Esterase Urine Opiates Screen Urine Fentanyl Screen Ur Barbiturates Screen Ur Phencyclidine Scrn Ur Amphetamines Screen U Benzodiazepines Scrn Urine Cocaine Screen U Marijuana (THC) Screen Ethyl Alcohol COVID-19 (ELIER) COVID-19 Clin Com Blood Type O Positive Antibody Screen NEGATIVE Imaging Radiologist's Impressions: Impressions Abdomen/Pelvis CT 10/06/21 17:57 IMPRESSION: Evaluation of acute traumatic sequela is limited in the absence of intravenous contrast. Similarly, evaluation of subtle spinal fractures is limited in the absence of dedicated reconstructions of the spine. However, accounting for these limitations, no discrete acute traumatic sequela is identified. Findings suggestive of small airways disease and pulmonary edema in the lungs. Hepatomegaly and hepatic steatosis. Similar degree of nonspecific perinephric and retroperitoneal fat stranding. Extensive sigmoid diverticulosis without evidence of acute diverticulitis. Rectal wall thickening which could be seen with proctocolitis. Correlate clinically, and if indicated evaluation with a colonoscopy could be obtained in a nonemergent basis. Chest CT 10/06/21 17:57 IMPRESSION: Evaluation of acute traumatic sequela is limited in the absence of intravenous contrast. Similarly, evaluation of subtle spinal fractures is limited in the absence of dedicated reconstructions of the spine. However, accounting for these limitations, no discrete acute traumatic sequela is identified. Findings suggestive of small airways disease and pulmonary edema in the lungs. Hepatomegaly and hepatic steatosis. Similar degree of nonspecific perinephric and retroperitoneal fat stranding. Extensive sigmoid diverticulosis without evidence of acute diverticulitis. Rectal wall thickening which could be seen with proctocolitis. Correlate clinically, and if indicated evaluation with a colonoscopy could be obtained in a nonemergent basis. Cervical Spine CT 10/06/21 18:05 IMPRESSION: No acute intracranial pathology. Acute fracture subluxation cervical spine. Head CT 10/06/21 18:05 IMPRESSION: No acute intracranial pathology. Acute fracture subluxation cervical spine. Assessment and Plan (1) Acute respiratory failure with hypoxia: Status: Acute (2) Acute diastolic CHF (congestive heart failure): Status: Acute (3) Elevated troponin: Status: Acute (4) Contusion of rib on left side: Status: Acute (5) Fall: Status: Acute (6) Electrolyte abnormality: Status: Acute Plan 65-year-old man with past medical history of CHF, hypertension, diabetes presents to the hospital with complaints of left-sided pain after a fall # acute hypoxic respiratory failure - likely secondary to CHF and for inspiration given the chest pain following fall - no evidence of rib fractures - has evidence of pulmonary edema as well as elevated BNP -patient presented with hypoxia satting 86% on room air - at this time treat with Lasix, O2 as required - monitor respiratory status # acute CHF exacerbation - unclear etiology at this time, patient does have elevated troponin but likely demand, fall may also precipitated the exacerbation - will treat with IV Lasix, strict I&O, low-sodium diet, daily weight - echocardiogram - cardiology consulted - monitor respiratory status # elevated troponin - likely secondary to demand in the setting of CHF - patient denies any typical chest pain - will trend - echocardiogram - cardiology on consult # electrolyte abnormality - hypomagnesemia and hypokalemia - both repleted - follow levels # fall - appears to be mechanical - patient has history of alcohol abuse although he denies drinking at this time - will obtain PT OT # history of alcohol abuse - will place on CIWA - no evidence of withdrawal at this time - thiamine and folic acid # diabetes - continue home insulin - add low-dose sliding scale insulin - diabetic diet DVT prophylaxis: Heparin subQ Given the hypoxia and need for oxygen supplement as well as acute CHF e xacerbation, patient will require minimal to night hospital stay for further management and monitoring Quality Stroke Does the patient have a stroke diagnosis?: No VTE Prior VTE?: No VTE Risk Level:: Medical - moderate - high VTE Device Contraindication: Treatment Not Indicated VTE Drug Contraindication: N/A - Med Ordered
[2021-10-07] VITALS: BP 116/69; PULSE 83; RESP 20; O2SAT 95
[2021-10-07] MEDS: Heparin Sodium,Porcine 5,000 UNIT/ML VIAL 5000 UNIT SUBCUT ×2 (00:24→13:06)
[2021-10-07] MEDS: Morphine Sulfate 4 MG/ML CARTRIDGE IVPUSH ×2 (04:06→09:20)
[2021-10-07] MEDS: Albuterol Sulfate 90 MCG 8 GM INHALER 2 PUFF INHALE (04:20)
[2021-10-07] MEDS: Omeprazole 20 MG CAPSULE.DR PO ×2 (06:32→16:53)
[2021-10-07] MEDS: Albuterol/Iprat 2.5/0.5MG 3 ML AMPUL.NEB INHALE (06:37)
[2021-10-07 06:38] VITALS: PULSE 83; RESP 20; O2SAT 95
[2021-10-07 07:17] LABS: Glucose, Whole Blood 93 mg/dL (60-115)
[2021-10-07 08:34] VITALS: BP 120/72; PULSE 98; RESP 24; O2SAT 96
--- NOTE | 2021-10-07 08:51 | P.PNIM_ITS ---
Subjective Subjective Date of Service: 10/07/21 Interval History: chf execerbation Review of Systems sob seems improving Physical Exam Vital Signs: Vital Signs: Last Vital Signs Temp 97.6 F 10/06/21 19:21 Pulse 98 10/07/21 08:34 Resp 24 H 10/07/21 08:34 BP 120/72 10/07/21 08:34 Pulse Ox 96 10/07/21 08:34 BMI result Body Mass Index 34.9 Appearance: Alert.? Oriented X3.? not in distress.? cvs: rrr, [id number] , no murmur res: clear to auscultation ,no rhonchii or wheezing abd: no rebound or guarding ,nt, bs present. ext pulses present , no cyanosis . neuro: axo3 , nonfocal. Objective Data Active Medications Acetaminophen (Acetaminophen 325 Mg Tablet) 650 mg PO Q6H PRN PRN Reason: Pain, Mild (Pain Scale 1-3) Albuterol Sulfate (Albuterol Sulfate 90 Mcg 8 Gm Inhaler) 2 puff INHALE Q6H PRN PRN Reason: Wheezing Last Admin: 10/07/21 04:20 Dose: 2 puff Documented by: ELVA Albuterol/Ipratropium (Albuterol/Iprat 2.5/0.5mg 3 Ml Ampul.Neb) 3 ml INHALE RQ4H PRN PRN Reason: Shortness of Breath/Wheezing Last Admin: 10/07/21 06:37 Dose: 3 ml Documented by: ELVA Aspirin (Aspirin Enteric Coated 81 Mg Tablet.) 81 mg PO BEDTIME [facility] Atorvastatin Calcium (Atorvastatin Calcium 10 Mg Tablet) 10 mg PO DAILY [facility] Buspirone HCl (Buspirone Hcl 5 Mg Tablet) 5 mg PO BID [facility] Dextrose (Dextrose 50 % 25 Gm/50 Ml Syringe) 25 gm IVPUSH Q15M PRN; Protocol PRN Reason: per Hypoglycemia Standing Ord. Docusate Sodium (Docusate Sodium 100 Mg Capsule) 100 mg PO DAILY PRN PRN Reason: Constipation Folic Acid (Folic Acid 1 Mg Tablet) 1 mg PO DAILY@1700 [facility] Furosemide (Furosemide 40 Mg/4 Ml Vial) 40 mg IVPUSH BID@0900,1800 [facility]; Protocol Gabapentin (Gabapentin 300 Mg Capsule) 600 mg PO TID [facility] Glucose (Glucose Gel 15 Gm Gel..Gram.) 15 gm PO Q15M PRN; Protocol PRN Reason: per Hypoglycemia Standing Ord. Heparin Sodium (Porcine) (Heparin Sodium,Porcine 5,000 Unit/Ml Vial) 5,000 unit SUBCUT Q12H [facility] Last Admin: 10/07/21 00:24 Dose: 5,000 unit Documented by: LEONEL Insulin Glargine (Insulin Glargine,Hum.Rec.Anlog 100 Unit/Ml 10 Ml Vial) 45 unit SUBCUT BEDTIME [facility] Insulin Human Lispro (Insulin Lispro 100 Unit/Ml 3 Ml Vial) 0 unit SUBCUT QIDACHS [facility]; Protocol Last Admin: 10/07/21 07:33 Dose: Not Given Documented by: JOHNNA Non-Admin Reason: poc 93 Morphine Sulfate (Morphine Sulfate 4 Mg/Ml Cartridge) 4 mg IVPUSH Q4H PRN; Protocol PRN Reason: Pain, Severe (Pain Scale 7-10) Last Admin: 10/07/21 04:06 Dose: 4 mg Documented by: LEONEL Non-Formulary Medication (Ramelteon) 1 tab PO BEDTIME [facility] Omeprazole (Omeprazole 20 Mg Capsule.Dr) 20 mg PO BID@0630,1630 [facility] Last Admin: 10/07/21 06:32 Dose: 20 mg Documented by: LEONEL Ondansetron HCl (Ondansetron Hcl 4 Mg/2 Ml Vial) 4 mg IVPUSH Q8H PRN PRN Reason: Nausea and Vomiting Pharmacy Consult (Consult Rx Perform Med Rec) 1 each MISCELLANE ONCE PRN PRN Reason: Consult order Sodium Chloride (0.9 % Sodium Chloride Flush 3 Ml Syringe) 3 ml IVFLUSH QSHIFT [facility] Last Admin: 10/07/21 00:27 Dose: Not Given Documented by: LEONEL Non-Admin Reason: Previously Administered Tamsulosin HCl (Tamsulosin Hcl 0.4 Mg Capsule) 0.4 mg PO DAILY@1700 [facility] Thiamine HCl (Thiamine Hcl 100 Mg Tablet) 100 mg PO BEDTIME [facility] Labs CBC & Chem 7: 10/07/21 10:34 10/07/21 10:34 Labs: Laboratory Results - last 24 hr 10/06/21 10/06/21 10/06/21 17:07 17:07 17:07 MCV 88.9 MCH 30.0 MCHC 33.8 RDW 15.0 Plt Count 192 MPV 8.3 L Immature Gran % (Auto) 0.1 Neut % (Auto) 71.3 Lymph % (Auto) 16.3 L Drew % (Auto) 7.2 Eos % (Auto) 4.3 H Baso % (Auto) 0.8 Lymph # (Auto) 1.2 Drew # (Auto) 0.5 Eos # (Auto) 0.3 Baso # (Auto) 0.1 Abs Immat Gran (auto) 0.01 Absolute Neuts (auto) 5.2 Absolute Nucleated RBC 0.000 Nucleated RBC % (auto) 0.0 PT INR APTT Anion Gap 13 Estim Creat Clear Calc 106.4 Estimated GFR > 60 POC Glucose Random Glucose 104 Calcium 8.9 Magnesium 1.3 L* Total Bilirubin 0.4 Direct Bilirubin 0.2 AST 16 ALT 16 Alkaline Phosphatase 95 Total Creatine Kinase Troponin I High Sens B-Natriuretic Peptide Total Protein 6.0 L Albumin 3.6 Urine Color Urine Appearance Urine pH Ur Specific [place] Urine Protein Urine Glucose (UA) Urine Ketones Urine Blood Urine Nitrite Ur Leukocyte Esterase Urine Opiates Screen Urine Fentanyl Screen Ur Barbiturates Screen Ur Phencyclidine Scrn Ur Amphetamines Screen U Benzodiazepines Scrn Urine Cocaine Screen U Marijuana (THC) Screen Ethyl Alcohol COVID-19 (ELIER) Negative COVID-19 Clin Com See Note Blood Type Antibody Screen 10/06/21 10/06/21 10/06/21 17:07 17:07 17:07 MCV MCH MCHC RDW Plt Count MPV Immature Gran % (Auto) Neut % (Auto) Lymph % (Auto) Drew % (Auto) Eos % (Auto) Baso % (Auto) Lymph # (Auto) Drew # (Auto) Eos # (Auto) Baso # (Auto) Abs Immat Gran (auto) Absolute Neuts (auto) Absolute Nucleated RBC Nucleated RBC % (auto) PT 12.6 INR 1.1 APTT 34.4 Anion Gap Estim Creat Clear Calc Estimated GFR POC Glucose Random Glucose Calcium Magnesium Total Bilirubin Direct Bilirubin AST ALT Alkaline Phosphatase Total Creatine Kinase Troponin I High Sens 243.9 H* D B-Natriuretic Peptide 495 H Total Protein Albumin Urine Color Urine Appearance Urine pH Ur Specific [place] Urine Protein Urine Glucose (UA) Urine Ketones Urine Blood Urine Nitrite Ur Leukocyte Esterase Urine Opiates Screen Urine Fentanyl Screen Ur Barbiturates Screen Ur Phencyclidine Scrn Ur Amphetamines Screen U Benzodiazepines Scrn Urine Cocaine Screen U Marijuana (THC) Screen Ethyl Alcohol < 10 COVID-19 (ELIER) COVID-19 Clin Com Blood Type Antibody Screen 10/06/21 10/06/21 10/06/21 17:07 17:50 17:50 MCV MCH MCHC RDW Plt Count MPV Immature Gran % (Auto) Neut % (Auto) Lymph % (Auto) Drew % (Auto) Eos % (Auto) Baso % (Auto) Lymph # (Auto) Drew # (Auto) Eos # (Auto) Baso # (Auto) Abs Immat Gran (auto) Absolute Neuts (auto) Absolute Nucleated RBC Nucleated RBC % (auto) PT INR APTT Anion Gap Estim Creat Clear Calc Estimated GFR POC Glucose Random Glucose Calcium Magnesium Total Bilirubin Direct Bilirubin AST ALT Alkaline Phosphatase Total Creatine Kinase 72 D Troponin I High Sens B-Natriuretic Peptide Total Protein Albumin Urine Color YELLOW Urine Appearance CLEAR Urine pH 7.0 Ur Specific [place] 1.010 Urine Protein NEG Urine Glucose (UA) NEG Urine Ketones NEG Urine Blood NEG Urine Nitrite NEG Ur Leukocyte Esterase NEG Urine Opiates Screen Not Detected Urine Fentanyl Screen Not Detected Ur Barbiturates Screen Not Detected Ur Phencyclidine Scrn Not Detected Ur Amphetamines Screen Not Detected U Benzodiazepines Scrn Not Detected Urine Cocaine Screen Not Detected U Marijuana (THC) Screen Not Detected Ethyl Alcohol COVID-19 (ELIER) COVID-19 Clin Com Blood Type Antibody Screen 10/06/21 10/06/21 10/07/21 20:24 20:24 07:12 MCV MCH MCHC RDW Plt Count MPV Immature Gran % (Auto) Neut % (Auto) Lymph % (Auto) Drew % (Auto) Eos % (Auto) Baso % (Auto) Lymph # (Auto) Drew # (Auto) Eos # (Auto) Baso # (Auto) Abs Immat Gran (auto) Absolute Neuts (auto) Absolute Nucleated RBC Nucleated RBC % (auto) PT INR APTT Anion Gap Estim Creat Clear Calc Estimated GFR POC Glucose 93 Random Glucose Calcium Magnesium Total Bilirubin Direct Bilirubin AST ALT Alkaline Phosphatase Total Creatine Kinase Troponin I High Sens 247.3 H* B-Natriuretic Peptide Total Protein Albumin Urine Color Urine Appearance Urine pH Ur Specific [place] Urine Protein Urine Glucose (UA) Urine Ketones Urine Blood Urine Nitrite Ur Leukocyte Esterase Urine Opiates Screen Urine Fentanyl Screen Ur Barbiturates Screen Ur Phencyclidine Scrn Ur Amphetamines Screen U Benzodiazepines Scrn Urine Cocaine Screen U Marijuana (THC) Screen Ethyl Alcohol COVID-19 (ELIER) COVID-19 Clin Com Blood Type O Positive Antibody Screen NEGATIVE Assessment and Plan (1) Electrolyte abnormality: Status: Acute (2) Acute diastolic CHF (congestive heart failure): Status: Acute Plan 65-year-old man with past medical history of CHF, hypertension, diabetes presents to the hospital with complaints of left-sided pain after a fall acute hypoxic respiratory failure - likely secondary to CHF and for inspiration given the chest pain following fall - no evidence of rib fractures - has evidence of pulmonary edema as well as elevated BNP hypoxia improving - at this time treat with Lasix, O2 as required - monitor respiratory status acute CHF exacerbation - unclear etiology at this time, patient does have elevated troponin but likely demand, fall may also precipitated the exacerbation - will treat with IV Lasix, strict I&O, low-sodium diet, daily weight - echocardiogram - cardiology consulted - monitor respiratory status elevated troponin - likely secondary to demand in the setting of CHF - patient denies any typical chest pain - will trend - echocardiogram - cardiology on consult electrolyte abnormality - hypomagnesemia and hypokalemia - both repleted - follow levels fall - appears to be mechanical - patient has history of alcohol abuse although he denies drinking at this time - will obtain PT OT history of alcohol abuse - will place on CIWA - no evidence of withdrawal at this time - thiamine and folic acid diabetes: fs 100-150 - continue home insulin - add low-dose sliding scale insulin - diabetic diet DVT prophylaxis:? Heparin subQ Quality Stroke Does the patient have a stroke diagnosis?: No VTE Prior VTE?: No VTE Risk Level:: Medical - moderate - high VTE Device Contraindication: Treatment Not Indicated VTE Drug Contraindication: N/A - Med Ordered
--- NOTE | 2021-10-07 09:01 | P.CONCA_ITS ---
History of Present Illness History of Present Illness Date of Service: 10/07/21 Requesting physician: Sidney Ron Consult reason: congestive heart failure Chief complaint: acute CHF exacerbation Narrative: I was consulted to see in cardiology consultation today for noticing hypoxemia and CT finding of pulmonary edema with elevated BNP. He is a 65-year-old male who is usually followed by his primary care physician for hypertension, diabetes, COPD, carries a diagnosis of diastolic heart failure with last echocardiogram LVEF of 55-60%. No history of coronary artery disease. About 3 days ago patient said he fell down when he got up suddenly got dizzy and injured the left side of his body. He has lot of left-sided chest discomfort with deep inspiration and movement. Noted to have rib contusion on the left, question no real fracture. He was also noted to be hypoxemic on presentation and noted to have elevated BNP as well as CT findings suggestive pulmonary edema. Cardiology consult was sought for the same. He has been getting Lasix and currently getting oxygen supplementation bronchodilators. He said he still continues to be short of breath but his main complain is left- sided pain which is clearly related to the breathing and worse with movement. He is not worried about his shortness of breath much. Denies any other chest pain. Denies any palpitations, lightheadedness, syncope. He has been getting s hort of breath for few days with no clear orthopnea PND. He said this feels more like COPD exacerbation. Review of Systems Constitutional: Constitutional: Reports no additional constitutional com plaints Eyes: Eyes: Reports no additional eye complaints Cardiovascular: Cardiovascular: Reports chest pain (Worse with deep breathing and movement), Denies leg edema, Denies palpitations and Reports dyspnea Respiratory: Respiratory: Reports dyspnea and Reports wheezing Gastrointestinal: Gastrointestinal: Reports no additional gastrointestinal complaints Genitourinary: Genitourinary: Reports no additional male genitourinary co mplaints Musculoskeletal: Musculoskeletal: Reports no additional musculoskeletal complaints Neurologic: Reports system reviewed and no additional complaints, except as documented Psychiatric: Psychiatric: Reports no additional psychiatric complaints Endocrine: Endocrine: Reports no additional endocrine complaints and Denies palpitations Allergic/Immunologic: Allergic/Immunologic: Reports wheezing PMFSH Past Medical History Medical History LAUREN (acute kidney injury) Alcohol abuse Anxiety COPD (chronic obstructive pulmonary disease) Diabetes mellitus type 1 Diastolic dysfunction Diastolic heart failure Fall HLD (hyperlipidemia) Hypertension Nonrheumatic aortic (valve) stenosis Obesity Pneumonia Family History Family History Father Diabetes Mother Diabetes Surgical History Surgical History H/O elbow surgery H/O shoulder surgery History of hydrocelectomy S/P TURP Social History Social History Household Members: None Housing: Halfway Do you presently have visiting nurse or other home services: Yes (used to live in apt. has been in [place] for ahwile ) Unable to assess alcohol history related to: Unable to respond Alcohol intake: current Alcohol intake frequency: 0-2 drinks per day Alcohol type: hard liquor Patient Tobacco Use Status: Former Tobacco user Tobacco use type: Cigar e-Cigarette/Vaping Use: Currently Using Second Hand Smoke Exposure: No Use of substances other than those prescribed or required for medical reasons: No Advance Directives: Yes Advance Directives on File: Yes Advance Directives Date on File: 10/11/20 service: No Current occupational status: unemployed and disabled Meds Allergies Allergy/AdvReac Type Severity Reaction Status Date / Time ENVIRONMENTAL Allergy Mild SNEEZING, Uncoded 10/06/21 15:49 WATERY EYES Active Medications: Current Medications Acetaminophen (Acetaminophen 325 Mg Tablet) 650 mg PO Q6H PRN PRN Reason: Pain, Mild (Pain Scale 1-3) Albuterol Sulfate (Albuterol Sulfate 90 Mcg 8 Gm Inhaler) 2 puff INHALE Q6H PRN PRN Reason: Wheezing Last Admin: 10/07/21 04:20 Dose: 2 puff Documented by: Albuterol/Ipratropium (Albuterol/Iprat 2.5/0.5mg 3 Ml Ampul.Neb) 3 ml INHALE RQ4H PRN PRN Reason: Shortness of Breath/Wheezing Last Admin: 10/07/21 06:37 Dose: 3 ml Documented by: Aspirin (Aspirin Enteric Coated 81 Mg Tablet.) 81 mg PO BEDTIME JOURDAN Atorvastatin Calcium (Atorvastatin Calcium 10 Mg Tablet) 10 mg PO DAILY JOURDAN Buspirone HCl (Buspirone Hcl 5 Mg Tablet) 5 mg PO BID JOURDAN Dextrose (Dextrose 50 % 25 Gm/50 Ml Syringe) 25 gm IVPUSH Q15M PRN; Protocol PRN Reason: per Hypoglycemia Standing Ord. Docusate Sodium (Docusate Sodium 100 Mg Capsule) 100 mg PO DAILY PRN PRN Reason: Constipation Folic Acid (Folic Acid 1 Mg Tablet) 1 mg PO DAILY@1700 [facility] Furosemide (Furosemide 40 Mg/4 Ml Vial) 40 mg IVPUSH BID@0900,1800 [facility]; Protocol Gabapentin (Gabapentin 300 Mg Capsule) 600 mg PO TID [facility] Glucose (Glucose Gel 15 Gm Gel..Gram.) 15 gm PO Q15M PRN; Protocol PRN Reason: per Hypoglycemia Standing Ord. Heparin Sodium (Porcine) (Heparin Sodium,Porcine 5,000 Unit/Ml Vial) 5,000 unit SUBCUT Q12H [facility] Last Admin: 10/07/21 00:24 Dose: 5,000 unit Documented by: Insulin Glargine (Insulin Glargine,Hum.Rec.Anlog 100 Unit/Ml 10 Ml Vial) 45 unit SUBCUT BEDTIME [facility] Insulin Human Lispro (Insulin Lispro 100 Unit/Ml 3 Ml Vial) 0 unit SUBCUT QIDACHS [facility]; Protocol Last Admin: 10/07/21 07:33 Dose: Not Given Documented by: Morphine Sulfate (Morphine Sulfate 4 Mg/Ml Cartridge) 4 mg IVPUSH Q4H PRN; Protocol PRN Reason: Pain, Severe (Pain Scale 7-10) Last Admin: 10/07/21 04:06 Dose: 4 mg Documented by: Non-Formulary Medication (Ramelteon) 1 tab PO BEDTIME [facility] Omeprazole (Omeprazole 20 Mg Gregg.) 20 mg PO BID@0630,1630 [facility] Last Admin: 10/07/21 06:32 Dose: 20 mg Documented by: Ondansetron HCl (Ondansetron Hcl 4 Mg/2 Ml Vial) 4 mg IVPUSH Q8H PRN PRN Reason: Nausea and Vomiting Pharmacy Consult (Consult Rx Perform Med Rec) 1 each MISCELLANE ONCE PRN PRN Reason: Consult order Sodium Chloride (0.9 % Sodium Chloride Flush 3 Ml Syringe) 3 ml IVFLUSH QSHIFT [facility] Last Admin: 10/07/21 00:27 Dose: Not Given Documented by: Tamsulosin HCl (Tamsulosin Hcl 0.4 Mg Capsule) 0.4 mg PO DAILY@1700 [facility] Thiamine HCl (Thiamine Hcl 100 Mg Tablet) 100 mg PO BEDTIME [facility] Home Medications Medication Instructions Recorded Confirmed Last Taken Type albuterol sulfate 90 mcg/actuation 2 puff INHALATION Q6H PRN 12/29/20 10/06/21 10/06/21 History aerosol inhaler blood sugar diagnostic (FreeStyle 12/29/20 10/06/21 Unknown History Lite Strips) folic acid 1 mg tablet 1 tab PO DAILY@1700 12/29/20 10/06/21 10/06/21 History simvastatin 20 mg tablet 1 tab PO BEDTIME 12/29/20 10/06/21 10/05/21 History thiamine HCl (vitamin B1) 100 mg 1 tab PO BEDTIME 12/29/20 10/06/21 10/05/21 History tablet aspirin 81 mg tablet,delayed 1 tab PO BEDTIME 02/04/21 10/06/21 10/05/21 History release buspirone 5 mg tablet 5 mg PO BID 02/04/21 10/06/21 10/06/21 History ramelteon 8 mg tablet 1 tab PO BEDTIME 05/12/21 10/06/21 10/05/21 History tamsulosin 0.4 mg capsule 1 cap PO DAILY@1700 05/12/21 10/06/21 10/06/21 History omeprazole 20 mg capsule,delayed 1 cap PO BID@0630,1630 06/01/21 10/06/21 10/06/21 History release insulin glargine 100 unit/mL 45 unit SUBCUT BEDTIME 06/24/21 10/06/21 10/05/21 History subcutaneous solution (Lantus U-100 Insulin) insulin aspart U-100 100 unit/mL 1 sliding scale dose SUBCUT TIDAC 07/21/21 10/06/21 10/06/21 History (3 mL) subcutaneous pen (Novolog Flexpen U-100 Insulin aspart) celecoxib 50 mg capsule 1 cap PO BID 10/06/21 10/06/21 10/06/21 History gabapentin 300 mg capsule 600 mg PO TID 10/06/21 10/06/21 10/05/21 History Physical Exam Vital Signs: Vital Signs: Last Vital Signs Temp 97.6 F 10/06/21 19:21 Pulse 98 10/07/21 08:34 Resp 24 H 10/07/21 08:34 BP 120/72 10/07/21 08:34 Pulse Ox 96 10/07/21 08:34 BMI result Body Mass Index 34.9 Const: General: cooperative, in distress moderate and other (Because of pain) and anxious Nutritional Appearance: obese Orientation/consciousness: patient oriented x3 HEENT: Head: Yes normocephalic and Yes atraumatic Neck: Neck: Yes trachea midline, Yes supple and Yes other (Difficult to evaluate JVD) Resp: Effort & Inspection: decreased respiratory effort Auscultation: whee zes scattered wheezes Cardio: Palpation: normal PMI Rate: regular rate Rhythm: regular rhythm Heart sounds: S1 normal heart sound present, S2 normal heart sound present, no click, no gallops, no murmurs and no rubs GI: Auscultation: normal bowel sounds Skin: General skin exam: no rashes or lesions noted Neuro: General: patient oriented x3 and no focal motor deficits Extrem: General: Yes no clubbing, cyanosis or edema Objective Labs and Meds Result diagrams: 10/06/21 17:07 10/06/21 17:07 Lab results: Laboratory Results - last 24 hr 10/06/21 10/06/21 10/06/21 17:07 17:07 17:07 WBC 7.2 RBC 4.33 L Hgb 13.0 L Hct 38.5 L MCV 88.9 MCH 30.0 MCHC 33.8 RDW 15.0 Plt Count 192 MPV 8.3 L Immature Gran % (Auto) 0.1 Neut % (Auto) 71.3 Lymph % (Auto) 16.3 L [place] % (Auto) 7.2 Eos % (Auto) 4.3 H Baso % (Auto) 0.8 Lymph # (Auto) 1.2 [place] # (Auto) 0.5 Eos # (Auto) 0.3 Baso # (Auto) 0.1 Abs Immat Gran (auto) 0.01 Absolute Neuts (auto) 5.2 Absolute Nucleated RBC 0.000 Nucleated RBC % (auto) 0.0 PT INR APTT Sodium 138 Potassium 3.2 L Chloride 96 Carbon Dioxide 32 H Anion Gap 13 BUN 8 L D Creatinine 0.81 Estim Creat Clear Calc 106.4 Estimated GFR > 60 POC Glucose Random Glucose 104 Calcium 8.9 Magnesium 1.3 L* Total Bilirubin 0.4 Direct Bilirubin 0.2 AST 16 ALT 16 Alkaline Phosphatase 95 Total Creatine Kinase Troponin I High Sens B-Natriuretic Peptide Total Protein 6.0 L Albumin 3.6 Urine Color Urine Appearance Urine pH Ur Specific [place] Urine Protein Urine Glucose (UA) Urine Ketones Urine Blood Urine Nitrite Ur Leukocyte Esterase Urine Opiates Screen Urine Fentanyl Screen Ur Barbiturates Screen Ur Phencyclidine Scrn Ur Amphetamines Screen U Benzodiazepines Scrn Urine Cocaine Screen U Marijuana (THC) Screen Ethyl Alcohol COVID-19 (ELIER) Negative COVID-19 Clin Com See Note Blood Type Antibody Screen 10/06/21 10/06/21 10/06/21 17:07 17:07 17:07 WBC RBC Hgb Hct MCV MCH MCHC RDW Plt Count MPV Immature Gran % (Auto) Neut % (Auto) Lymph % (Auto) [place] % (Auto) Eos % (Auto) Baso % (Auto) Lymph # (Auto) [place] # (Auto) Eos # (Auto) Baso # (Auto) Abs Immat Gran (auto) Absolute Neuts (auto) Absolute Nucleated RBC Nucleated RBC % (auto) PT 12.6 INR 1.1 APTT 34.4 Sodium Potassium Chloride Carbon Dioxide Anion Gap BUN Creatinine Estim Creat Clear Calc Estimated GFR POC Glucose Random Glucose Calcium Magnesium Total Bilirubin Direct Bilirubin AST ALT Alkaline Phosphatase Total Creatine Kinase Troponin I High Sens 243.9 H* D B-Natriuretic Peptide 495 H Total Protein Albumin Urine Color Urine Appearance Urine pH Ur Specific [place] Urine Protein Urine Glucose (UA) Urine Ketones Urine Blood Urine Nitrite Ur Leukocyte Esterase Urine Opiates Screen Urine Fentanyl Screen Ur Barbiturates Screen Ur Phencyclidine Scrn Ur Amphetamines Screen U Benzodiazepines Scrn Urine Cocaine Screen U Marijuana (THC) Screen Ethyl Alcohol < 10 COVID-19 (ELIER) COVID-19 Clin Com Blood Type Antibody Screen 10/06/21 10/06/21 10/06/21 17:07 17:50 17:50 WBC RBC Hgb Hct MCV MCH MCHC RDW Plt Count MPV Immature Gran % (Auto) Neut % (Auto) Lymph % (Auto) [place] % (Auto) Eos % (Auto) Baso % (Auto) Lymph # (Auto) [place] # (Auto) Eos # (Auto) Baso # (Auto) Abs Immat Gran (auto) Absolute Neuts (auto) Absolute Nucleated RBC Nucleated RBC % (auto) PT INR APTT Sodium Potassium Chloride Carbon Dioxide Anion Gap BUN Creatinine Estim Creat Clear Calc Estimated GFR POC Glucose Random Glucose Calcium Magnesium Total Bilirubin Direct Bilirubin AST ALT Alkaline Phosphatase Total Creatine Kinase 72 D Troponin I High Sens B-Natriuretic Peptide Total Protein Albumin Urine Color YELLOW Urine Appearance CLEAR Urine pH 7.0 Ur Specific [place] 1.010 Urine Protein NEG Urine Glucose (UA) NEG Urine Ketones NEG Urine Blood NEG Urine Nitrite NEG Ur Leukocyte Esterase NEG Urine Opiates Screen Not Detected Urine Fentanyl Screen Not Detected Ur Barbiturates Screen Not Detected Ur Phencyclidine Scrn Not Detected Ur Amphetamines Screen Not Detected U Benzodiazepines Scrn Not Detected Urine Cocaine Screen Not Detected U Marijuana (THC) Screen Not Detected Ethyl Alcohol COVID-19 (ELIER) COVID-19 Clin Com Blood Type Antibody Screen 10/06/21 10/06/21 10/07/21 20:24 20:24 07:12 WBC RBC Hgb Hct MCV MCH MCHC RDW Plt Count MPV Immature Gran % (Auto) Neut % (Auto) Lymph % (Auto) [place] % (Auto) Eos % (Auto) Baso % (Auto) Lymph # (Auto) [place] # (Auto) Eos # (Auto) Baso # (Auto) Abs Immat Gran (auto) Absolute Neuts (auto) Absolute Nucleated RBC Nucleated RBC % (auto) PT INR APTT Sodium Potassium Chloride Carbon Dioxide Anion Gap BUN Creatinine Estim Creat Clear Calc Estimated GFR POC Glucose 93 Random Glucose Calcium Magnesium Total Bilirubin Direct Bilirubin AST ALT Alkaline Phosphatase Total Creatine Kinase Troponin I High Sens 247.3 H* B-Natriuretic Peptide Total Protein Albumin Urine Color Urine Appearance Urine pH Ur Specific [place] Urine Protein Urine Glucose (UA) Urine Ketones Urine Blood Urine Nitrite Ur Leukocyte Esterase Urine Opiates Screen Urine Fentanyl Screen Ur Barbiturates Screen Ur Phencyclidine Scrn Ur Amphetamines Screen U Benzodiazepines Scrn Urine Cocaine Screen U Marijuana (THC) Screen Ethyl Alcohol COVID-19 (ELIER) COVID-19 Clin Com Blood Type O Positive Antibody Screen NEGATIVE Imaging Radiologist's impression: Impressions Abdomen/Pelvis CT 10/06/21 17:57 IMPRESSION: Evaluation of acute traumatic sequela is limited in the absence of intravenous contrast. Similarly, evaluation of subtle spinal fractures is limited in the absence of dedicated reconstructions of the spine. However, accounting for these limitations, no discrete acute traumatic sequela is identified. Findings suggestive of small airways disease and pulmonary edema in the lungs. Hepatomegaly and hepatic steatosis. Similar degree of nonspecific perinephric and retroperitoneal fat stranding. Extensive sigmoid diverticulosis without evidence of acute diverticulitis. Rectal wall thickening which could be seen with proctocolitis. Correlate clinically, and if indicated evaluation with a colonoscopy could be obtained in a nonemergent basis. Chest CT 10/06/21 17:57 IMPRESSION: Evaluation of acute traumatic sequela is limited in the absence of intravenous contrast. Similarly, evaluation of subtle spinal fractures is limited in the absence of dedicated reconstructions of the spine. However, accounting for these limitations, no discrete acute traumatic sequela is identified. Findings suggestive of small airways disease and pulmonary edema in the lungs. Hepatomegaly and hepatic steatosis. Similar degree of nonspecific perinephric and retroperitoneal fat stranding. Extensive sigmoid diverticulosis without evidence of acute diverticulitis. Rectal wall thickening which could be seen with proctocolitis. Correlate clinically, and if indicated evaluation with a colonoscopy could be obtained in a nonemergent basis. Cervical Spine CT 10/06/21 18:05 IMPRESSION: No acute intracranial pathology. Acute fracture subluxation cervical spine. Head CT 10/06/21 18:05 IMPRESSION: No acute intracranial pathology. Acute fracture subluxation cervical spine. Assessment and Plan (1) Acute respiratory failure with hypoxia: Status: Acute Patient presents with hypoxic respiratory failure with a component of heart failure noted on CT scan as elevated BNP. Currently being diuresed. Does not appear to be in florid congestive heart failure at this point time. His more clinical findings consistent with COPD exacerbation. Continue bronchodilators. Continue with gentle IV diuresis. Strict intake and output chart needs to be pursued. Continue follow electrolytes and replace as needed especially is hypo magnesemia. Denies use of alcohol. His blood pressure is otherwise well optimized, continue current therapy. Continue oxygenation. His main complaint currently is significant pain related to his rib contusion. Management as per the hospitalist team. Part of his hypoxemia may be related to decreased respiratory effort from his significant pain. No other therapy is recommended at this point in time. (2) Elevated troponin: Status: Acute Flat but elevated troponins are most suggestive of decompensated congestive of her subendocardial strain. Continue management as above. May consider outpatient workup for ischemia given his multiple risk factors. At this point time there is no need for IV heparin. Continue manage underlying medical condition. Will follow up as need be. Will sign of the case at this point in time Procedures Date of Service Date of Service: 10/07/21
[2021-10-07] MEDS: Atorvastatin Calcium 10 MG TABLET PO (09:14)
[2021-10-07] MEDS: Gabapentin 300 MG CAPSULE 600 MG PO ×3 (09:14→22:25)
[2021-10-07] MEDS: busPIRone HCl 5 MG TABLET PO ×2 (09:14→22:24)
[2021-10-07] MEDS: Furosemide 40 MG/4 ML VIAL IVPUSH (09:15)
[2021-10-07] MEDS: 0.9 % Sodium Chloride Flush 3 ML SYRINGE IVFLUSH (09:15)
[2021-10-07 10:41] LABS: MANUAL DIFF FLAG NO
[2021-10-07 10:47] LABS: Basophils Absolute Auto 0.1 X10*3/uL (0.0-0.2); Basophils Percent Auto 1.1 % (0-2); Eosinophils Absolute Auto 0.5 X10*3/uL (0.0-0.4); Eosinophils Percent Auto 7.2 % (0-4); Hematocrit 43.6 % (42.0-52.0); Hemoglobin 14.6 g/dl (14.0-18.0); Imm Gran Abs Auto 0.02 X10*3/uL (0.00-0.03); Imm Gran Pct Auto 0.3 % (0.0-0.4); Lymphocytes Absolute Auto 0.9 X10*3/uL (1.2-4.9); Lymphocytes Percent Auto 14.8 % (20-40); Mean Corpuscular HGB Conc 33.5 g/dl (31.0-36.0); Mean Corpuscular Hemoglobin 30.5 pg (27.0-33.0); Monocytes Absolute Auto 0.4 X10*3/uL (0.1-1.2); Monocytes Percent Auto 6.8 % (2-11); Neutrophils Absolute Auto 4.4 x10*3/uL (2.0-8.3); Neutrophils Percent Auto 69.8 % (45-73); Platelet Count 222 X10*3/uL (160-400); Red Blood Count 4.79 X10*6/uL (4.60-5.80); Red Cell Distribution Width 15.1 % (11.0-16.0); White Blood Count 6.4 X10*3/uL (4.8-10.8)
[2021-10-07 11:03] LABS: Anion Gap 15 (12-20); Blood Urea Nitrogen 10 mg/dL (9-16); Calcium 8.9 mg/dL (8.4-10.2); Carbon Dioxide 34 mmol/L (22-29); Chloride 94 mmol/L (96-108); Estimated Glomerular Filt Rate > 60; Glucose Random 148 mg/dL (60-115); Magnesium 1.4 mg/dL (1.6-2.6); Potassium 3.6 mmol/L (3.3-5.1); Sodium 139 mmol/L (135-145)
[2021-10-07 11:06] LABS: B Type Natriuretic Peptide 476 pg/mL (<100)
[2021-10-07 11:11] LABS: Troponin-I High Sensitivity 152.8 ng/L (<3.5-35.0)
[2021-10-07 12:00] VITALS: BP 122/74; PULSE 93; RESP 18; O2SAT 96
[2021-10-07 12:29] LABS: Glucose, Whole Blood 157 mg/dL (60-115)
[2021-10-07] MEDS: HYDROmorphone HCl 2 MG TABLET 1 MG PO ×2 (13:05→18:17)
--- NOTE | 2021-10-07 13:46 | PC.NURSE ---
patient a&ox3, pt iv infiltrated, dr alexis aware, ed provider attempted iv via us and was unable to gain access. pt medicated per order, monitor worker intact nsr 80s, vss, call watters within reach, will continue to monitor.
--- NOTE | 2021-10-07 14:09 | PC.NURSE ---
pt initially refused lido patch and has now asked for it, pt will be given lido patch per his request
[2021-10-07] MEDS: Magnesium Oxide 400 MG TABLET 800 MG PO ×2 (14:13→22:24)
[2021-10-07] MEDS: Lidocaine 4 % Patch ADH..PATCH 2 PATCH TRANSDERMA (14:13)
[2021-10-07] MEDS: Insulin Lispro 100 UNIT/ML 3 ML VIAL SUBCUT ×2 (14:14→18:18)
--- NOTE | 2021-10-07 14:25 | MHC.CM.PN ---
Met with pt to discuss d/c planning needs: pt resides alone and has [employer] for night time O2 needs. He relies on friends/family for transportation, no services in place at this time. Pt states he will call for a ride home when ready. [facility]OL[facility]/HCP on file and verified, IMM in chart. [employer] x3. No additional services anticipated
--- NOTE | 2021-10-07 16:24 | PC.NURSE ---
patient a&ox3, pt c/o pain 02/16- pt is aware he has to wait an hour for pain medications, pt also requested cough medication- provider notifed no new order at this time, classroom monitor nsr, call watters within reach, will continue to monitor
[2021-10-07 16:34] VITALS: BP 114/66; PULSE 88; RESP 17; TEMP 37; O2SAT 96
[2021-10-07] MEDS: Folic Acid 1 MG TABLET PO (16:53)
[2021-10-07] MEDS: Benzonatate 100 MG CAPSULE PO ×2 (16:53→22:25)
[2021-10-07] MEDS: Tamsulosin HCL 0.4 MG CAPSULE PO (16:53)
[2021-10-07] MEDS: guaiFENesin 100 MG/5 ML LIQUID PO (16:53)
[2021-10-07 17:15] LABS: Glucose, Whole Blood 150 mg/dL (60-115)
--- NOTE | 2021-10-07 18:33 | PC.NURSE ---
patient requesting nicotine patch and something for anxiety, notified hospitalist, will continue to monitor
[2021-10-07 20:44] VITALS: BP 109/57; PULSE 93; RESP 15; TEMP 36.8; O2SAT 97
[2021-10-07 21:30] LABS: Glucose, Whole Blood 183 mg/dL (60-115)
[2021-10-07] MEDS: Insulin Glargine,Hum.rec.anlog 100 UNIT/ML 10 ML VIAL 45 UNIT SUBCUT (22:23)
[2021-10-07] MEDS: Aspirin Enteric Coated 81 MG TABLET.DR PO (22:24)
[2021-10-07] MEDS: Thiamine HCL 100 MG TABLET PO (22:24)
[2021-10-07] MEDS: Potassium Chloride Packet 20 MEQ PACKET PO (22:25)
[2021-10-08] VITALS (12 sets, daily range): BP systolic 99–122; BP diastolic 50–63; PULSE 68–98; RESP 16–20; TEMP 36.4–36.9; O2SAT 88–100
[2021-10-08] MEDS: Heparin Sodium,Porcine 5,000 UNIT/ML VIAL 5000 UNIT SUBCUT ×3 (00:07→21:44)
--- NOTE | 2021-10-08 00:15 | PC.NURSE ---
Assumed care of pt from Randa Pt resting on hospital bed NAD NSR with HR 70s Will continue to monitor
[2021-10-08] MEDS: guaiFENesin 100 MG/5 ML LIQUID PO ×4 (05:37→20:49)
[2021-10-08] MEDS: HYDROmorphone HCl 2 MG TABLET 1 MG PO ×3 (05:37→18:17)
[2021-10-08] MEDS: Omeprazole 20 MG CAPSULE.DR PO ×2 (05:40→16:47)
--- NOTE | 2021-10-08 05:51 | PC.NURSE ---
Pt medicated per JUL Pt tolerated well Pt offered breathing tx for wheezing. Pt refused stating it's too early. I want to get some more sleep. Maybe later. 100% on 3L NC AxO x 4, clear and complete sentences Will continue to monitor
--- NOTE | 2021-10-08 06:38 | PC.NURSE ---
TT Dr. Foreman to change pt's IV lasix. Per Dr. Foreman, will forward message to Dr. Ron.
[2021-10-08 07:24] LABS: Glucose, Whole Blood 79 mg/dL (60-115)
[2021-10-08 07:53] LABS: Magnesium 1.5 mg/dL (1.6-2.6)
[2021-10-08] MEDS: Atorvastatin Calcium 10 MG TABLET PO (08:32)
[2021-10-08] MEDS: Gabapentin 300 MG CAPSULE 600 MG PO ×3 (08:32→20:44)
[2021-10-08] MEDS: Magnesium Oxide 400 MG TABLET 800 MG PO ×3 (08:32→20:44)
[2021-10-08] MEDS: busPIRone HCl 5 MG TABLET PO ×2 (08:32→20:44)
[2021-10-08] MEDS: Benzonatate 100 MG CAPSULE PO ×3 (08:32→20:44)
[2021-10-08] MEDS: Furosemide 40 MG TABLET PO (08:32)
[2021-10-08] MEDS: Albuterol/Iprat 2.5/0.5MG 3 ML AMPUL.NEB INHALE ×2 (08:51→15:17)
--- NOTE | 2021-10-08 10:36 | PC.NURSE ---
Pt without IV access, aware. IV lasix changed to po. Pt voiding well into urinal. Received updraft treatment for wheezing with good effect
[2021-10-08 12:48] LABS: Glucose, Whole Blood 245 mg/dL (60-115)
[2021-10-08] MEDS: Insulin Lispro 100 UNIT/ML 3 ML VIAL SUBCUT ×2 (13:15→17:13)
--- NOTE | 2021-10-08 15:18 | PC.NURSE ---
Pt initially refused to work with PT this morning secondary to pain and difficulty breathing. PT eval completed this afternoon. Down for xray left shoulder, Dr Ron in to see pt this morning. RT in for home O2 eval. See RT note. Case management in to see pt regarding discharge planning.
--- NOTE | 2021-10-08 15:42 | MHC.CM.PN ---
pt now wants to go to rehab physical is receommending same referrals made
--- NOTE | 2021-10-08 16:06 | P.PNIM_ITS ---
Subjective Subjective Date of Service: 10/08/21 Interval History: chf execerbation Review of Systems sob seems improving Physical Exam Vital Signs: Vital Signs: Last Vital Signs Temp 97.5 F 10/08/21 11:19 Pulse 89 10/08/21 15:17 Resp 18 10/08/21 15:17 BP 99/50 L 10/08/21 11:19 Pulse Ox 88 L 10/08/21 14:48 BMI result Body Mass Index 34.9 Appearance: Alert.? Oriented X3.? not in distress.? cvs: rrr, [id number] , no murmur res: clear to auscultation ,no rhonchii or wheezing abd: no rebound or guarding ,nt, bs present. ext pulses present , no cyanosis . neuro: axo3 , nonfocal. Objective Data Active Medications Acetaminophen (Acetaminophen 325 Mg Tablet) 650 mg PO Q6H PRN PRN Reason: Pain, Mild (Pain Scale 1-3) Albuterol Sulfate (Albuterol Sulfate 90 Mcg 8 Gm Inhaler) 2 puff INHALE Q6H PRN PRN Reason: Wheezing Last Admin: 10/07/21 04:20 Dose: 2 puff Documented by: ELVA Albuterol/Ipratropium (Albuterol/Iprat 2.5/0.5mg 3 Ml Ampul.Neb) 3 ml INHALE RQ4H PRN PRN Reason: Shortness of Breath/Wheezing Last Admin: 10/08/21 15:17 Dose: 3 ml Documented by: FRANCISCO Aspirin (Aspirin Enteric Coated 81 Mg Tablet.) 81 mg PO BEDTIME [facility] Last Admin: 10/07/21 22:24 Dose: 81 mg Documented by: ROBER Atorvastatin Calcium (Atorvastatin Calcium 10 Mg Tablet) 10 mg PO DAILY [facility] Last Admin: 10/08/21 08:32 Dose: 10 mg Documented by: FANY Benzonatate (Benzonatate 100 Mg Capsule) 100 mg PO TID [facility] Last Admin: 10/08/21 15:10 Dose: 100 mg Documented by: FANY Buspirone HCl (Buspirone Hcl 5 Mg Tablet) 5 mg PO BID [facility] Last Admin: 10/08/21 08:32 Dose: 5 mg Documented by: FANY Dextrose (Dextrose 50 % 25 Gm/50 Ml Syringe) 25 gm IVPUSH Q15M PRN; Protocol PRN Reason: per Hypoglycemia Standing Ord. Docusate Sodium (Docusate Sodium 100 Mg Capsule) 100 mg PO DAILY PRN PRN Reason: Constipation Folic Acid (Folic Acid 1 Mg Tablet) 1 mg PO DAILY@1700 [facility] Last Admin: 10/07/21 16:53 Dose: 1 mg Documented by: ROBER Furosemide (Furosemide 40 Mg Tablet) 40 mg PO DAILY [facility]; Protocol Last Admin: 10/08/21 08:32 Dose: 40 mg Documented by: FANY Gabapentin (Gabapentin 300 Mg Capsule) 600 mg PO TID [facility] Last Admin: 10/08/21 15:09 Dose: 600 mg Documented by: FANY Glucose (Glucose Gel 15 Gm Gel..Gram.) 15 gm PO Q15M PRN; Protocol PRN Reason: per Hypoglycemia Standing Ord. Guaifenesin (Guaifenesin 100 Mg/5 Ml Liquid) 5 ml PO Q4H PRN PRN Reason: Cough Last Admin: 10/08/21 11:31 Dose: 5 ml Documented by: FANY Heparin Sodium (Porcine) (Heparin Sodium,Porcine 5,000 Unit/Ml Vial) 5,000 unit SUBCUT Q12H [facility] Last Admin: 10/08/21 10:41 Dose: 5,000 unit Documented by: FANY Hydromorphone HCl (Hydromorphone Hcl 2 Mg Tablet) 1 mg PO Q4H PRN PRN Reason: Pain, Mild (Pain Scale 1-3) Last Admin: 10/08/21 09:51 Dose: 1 mg Documented by: FANY Insulin Glargine (Insulin Glargine,Hum.Rec.Anlog 100 Unit/Ml 10 Ml Vial) 45 unit SUBCUT BEDTIME [facility] Last Admin: 10/07/21 22:23 Dose: 45 unit Documented by: ROBER Insulin Human Lispro (Insulin Lispro 100 Unit/Ml 3 Ml Vial) 0 unit SUBCUT QIDACHS [facility]; Protocol Last Admin: 10/08/21 13:15 Dose: 4 unit Documented by: FANY Lidocaine (Lidocaine 4 % Patch Adh..Patch) 2 patch TRANSDERMA DAILY [facility]; Protocol Last Admin: 10/08/21 08:37 Dose: Not Given Documented by: FANY Non-Admin Reason: Patient Refused Magnesium Oxide (Magnesium Oxide 400 Mg Tablet) 800 mg PO TID [facility] Last Admin: 10/08/21 15:09 Dose: 800 mg Documented by: FANY Non-Formulary Medication (Ramelteon) 1 tab PO BEDTIME [facility] Omeprazole (Omeprazole 20 Mg Capsule.) 20 mg PO BID@0630,1630 [facility] Last Admin: 10/08/21 05:40 Dose: 20 mg Documented by: JOSEPH Ondansetron HCl (Ondansetron Hcl 4 Mg/2 Ml Vial) 4 mg IVPUSH Q8H PRN PRN Reason: Nausea and Vomiting Pharmacy Consult (Consult Rx Perform Med Rec) 1 each MISCELLANE ONCE PRN PRN Reason: Consult order Sodium Chloride (0.9 % Sodium Chloride Flush 3 Ml Syringe) 3 ml IVFLUSH QSHIFT [facility] Last Admin: 10/08/21 15:12 Dose: Not Given Documented by: FANY Non-Admin Reason: No Access Tamsulosin HCl (Tamsulosin Hcl 0.4 Mg Capsule) 0.4 mg PO DAILY@1700 [facility] Last Admin: 10/07/21 16:53 Dose: 0.4 mg Documented by: ROBER Thiamine HCl (Thiamine Hcl 100 Mg Tablet) 100 mg PO BEDTIME [facility] Last Admin: 10/07/21 22:24 Dose: 100 mg Documented by: ROBER Labs CBC & Chem 7: 10/07/21 10:34 10/07/21 10:34 Labs: Laboratory Results - last 24 hr 10/07/21 10/07/21 10/08/21 17:04 21:22 07:10 POC Glucose 150 H 183 H Magnesium 1.5 L 10/08/21 10/08/21 07:16 12:37 POC Glucose 79 245 H Magnesium Assessment and Plan (1) Electrolyte abnormality: Status: Acute (2) Acute diastolic CHF (congestive heart failure): Status: Acute Plan 65-year-old man with past medical history of CHF, hypertension, diabetes presents to the hospital with complaints of left-sided pain after a fall acute hypoxic respiratory failure - likely secondary to CHF and for inspiration given the chest pain following fall - no evidence of rib fractures - has evidence of pulmonary edema as well as elevated BNP hypoxia improving - at this time treat with Lasix, O2 as required - monitor respiratory status acute CHF exacerbation seems improved with IV Lasix, troponin flat due to CHF exacerbation, further workup outpatient as per Cardiology. Cardiology may arrange their own appointment. electrolyte abnormality - hypomagnesemia and hypokalemia - both repleted - follow levels fall - appears to be mechanical - patient has history of alcohol abuse although he denies drinking at this time - will obtain PT OT history of alcohol abuse - will place on CIWA - no evidence of withdrawal at this time - thiamine and folic acid diabetes: fs 100-150 - continue home insulin - add low-dose sliding scale insulin - diabetic diet DVT prophylaxis:? Heparin subQ inpatient need: Waiting for rehab Quality Stroke Does the patient have a stroke diagnosis?: No VTE Prior VTE?: No VTE Risk Level:: Medical - moderate - high VTE Device Contraindication: Treatment Not Indicated VTE Drug Contraindication: N/A - Med Ordered
[2021-10-08] MEDS: Folic Acid 1 MG TABLET PO (16:47)
[2021-10-08] MEDS: Tamsulosin HCL 0.4 MG CAPSULE PO (16:47)
[2021-10-08 17:18] LABS: Glucose, Whole Blood 226 mg/dL (60-115)
[2021-10-08 17:38] LABS: COVID-19 Test Negative (Negative); IDNOW Serial# 16C4AD1C
[2021-10-08] MEDS: Aspirin Enteric Coated 81 MG TABLET.DR PO (20:44)
[2021-10-08] MEDS: Thiamine HCL 100 MG TABLET PO (20:44)
[2021-10-08 21:34] LABS: Glucose, Whole Blood 268 mg/dL (60-115)
[2021-10-08] MEDS: Insulin Glargine,Hum.rec.anlog 100 UNIT/ML 10 ML VIAL 45 UNIT SUBCUT (21:44)
[2021-10-09] MEDS: HYDROmorphone HCl 2 MG TABLET 1 MG PO ×3 (00:24→14:21)
[2021-10-09] MEDS: guaiFENesin 100 MG/5 ML LIQUID PO ×3 (00:25→14:21)
--- NOTE | 2021-10-09 05:38 | PC.NURSE ---
pt refusing bed alarm, educated on safety and using his call watters if he did not feel safe to get up on his own. red sox, high fall risk bracelet, and red star outside of his room.
[2021-10-09] MEDS: Omeprazole 20 MG CAPSULE.DR PO (06:24)
[2021-10-09 07:14] LABS: Glucose, Whole Blood 133 mg/dL (60-115)
[2021-10-09 07:41] VITALS: BP 102/51; PULSE 89; RESP 22; TEMP 36.7; O2SAT 98
[2021-10-09] MEDS: Benzonatate 100 MG CAPSULE PO ×2 (07:59→14:21)
[2021-10-09] MEDS: Atorvastatin Calcium 10 MG TABLET PO (08:01)
[2021-10-09] MEDS: Furosemide 40 MG TABLET PO (08:01)
[2021-10-09] MEDS: Magnesium Oxide 400 MG TABLET 800 MG PO ×2 (08:01→14:21)
[2021-10-09] MEDS: Gabapentin 300 MG CAPSULE 600 MG PO ×2 (08:02→14:21)
[2021-10-09] MEDS: busPIRone HCl 5 MG TABLET PO (08:02)
--- NOTE | 2021-10-09 08:05 | P.CDIC_ITS ---
CDI Concurrent Query Documentation Clarification: PHYSICIAN'S DOCUMENTATION REQUEST Date of Query: 10/09/21 0805 Patient Name: Kenneth Aragon Admit Date: 10/06/21 Dear Doctor, A review of the medical record indicates additional documentation may be needed. Please review below and update the documentation accordingly. Clinical Indicators: Risk Factors/Clinical Indicators/Treatments PMH: Diabetes mellitus Type I PN: 10/07 - DM fs 100-150 continue home insulin add low dose sliding scale insulin poc glucose 245 H 268 H Insulin Please clarify the following regarding Diabetes Mellitus (DM): Type/Etiology: * Type I DM * Type II DM * Other type of DM (please specify) * Unable to determine Complications of Diabetes * Hypoglycemia * Hyperglycemia * No complications of DM * Other complication ? please specify * Unable to determine Use of terms such as suspected, likely, concern for, or probable (associated with a specific diagnosis that is being evaluated, monitored, or treated as if it exists) are acceptable and can be coded in the inpatient setting, when documented at the time of discharge. Thank you, Myranda Degroot [facility], CDIS Extension: [phone] Please use your independent medical judgment in providing your response. THIS QUERY IS PART OF THE PERMANENT MEDICAL RECORD Provider Response: Other Other Diagnosis: dm -unable to detrmine
--- NOTE | 2021-10-09 08:05 | MHC.CDI.CONC ---
CDI Concurrent Query Documentation Clarification: PHYSICIAN'S DOCUMENTATION REQUEST Date of Query: 10/09/21804 Patient Name: Kenneth Aragon Admit Date: 10/06/21 Dear Doctor, A review of the medical record indicates additional documentation may be needed. Please review below and update the documentation accordingly. Clinical Indicators: Risk Factors/Clinical Indicators/Treatments PMH: Diabetes mellitus Type I PN: 10/07 - DM fs 100-150 continue home insulin add low dose sliding scale insulin poc glucose 245 H 268 H Insulin Please clarify the following regarding Diabetes Mellitus (DM): Type/Etiology: Type I DM Type II DM Other type of DM (please specify) Unable to determine Complications of Diabetes Hypoglycemia Hyperglycemia No complications of DM Other complication ? please specify Unable to determine Use of terms such as suspected, likely, concern for, or probable (associated with a specific diagnosis that is being evaluated, monitored, or treated as if it exists) are acceptable and can be coded in the inpatient setting, when documented at the time of discharge. Thank you, Myranda Degroot [facility], CDIS Extension: [phone] Please use your independent medical judgment in providing your response. THIS QUERY IS PART OF THE PERMANENT MEDICAL RECORD Provider Response: Other Other Diagnosis: dm -unable to detrmine
--- NOTE | 2021-10-09 08:38 | P.DS_ITS ---
DS: Providers Provider Date of Service: 10/09/21 Date of admission: 10/06/21 22:51 Primary care physician: Jaylen Cummings MD Consults: 10/06/21 21:43 Consult to Cardiology Stat Consulting Provider: Gabino Carter Reason for consultation: CHF, trop 247 Has provider been notified: Yes DS: Diagnosis Discharge Diagnosis (1) Electrolyte abnormality: Status: Acute (2) Acute diastolic CHF (congestive heart failure): Status: Acute DS: Summary Hospital Course Hospital Course: 65-year-old male with past medical history diastolic heart failure, COPD, diabetes, hypertension, hyperlipidemia, history of alcohol abuse, nonrheumatic aortic valve stenosis, history of diverticulitis, rhabdomyolysis, and hyponatremia presents to the hospital with complaints of left-sided pain.? Patient reports that about 3 days ago he had a fall on the left side after getting up too fast and feeling dizzy.? Patient reports no loss of consciousness, no headache, no change in vision, no chest pain, but has pain from the left shoulder all the way to the left hip.? Patient reports no prodromal symptoms.? Reports that he got up too fast from his bed felt dizzy and lost his balance.? The pain in the left is worse with breathing, movement.? He denies alcohol use although it is in his history with alcohol withdrawal. Patient reports that he has also been feeling progressively worsening shortness of breath, he has a dry cough, no lower extremity edema.? He has not had any orthopnea or PND. Patient denies any fever no chills, no abdominal pain nausea or vomiting, no diarrhea constipation, no urinary symptoms.? On arrival to the ED patient hemodynamically stable but was found to be hypoxic satting 86% on room air Labs are found to be significant for WBC count of 7.2, hemoglobin of 13, hematocrit 38.5, potassium of 3.2, magnesium of 1.3, troponin of 245, repeat of 247, UA negative, alcohol negative, UDS negative, COVID-19 negative? BNP of 495, Chest CT showed no discrete acute traumatic sequelae, finding suggestive of small airway disease and pulmonary edema, CT abdomen showed possible proctitis Head and cervical spine CT showed no acute intracranial pathology, and no acute fracture subluxation of the cervical spine. Case was discussed with Cardiology, patient will be admitted for evaluation and management of CHF. hospital course: Patient came to the hospital because of acute hypoxemic respiratory failure secondary to CHF exacerbation: seems to be improved with IV diuresis.switched to p.o. Lasix. hypomagnesemia seems improving, magnesium replacements added. May consider outpatient workup for ischemia given his multiple risk factors.cardiology may arrange further outpatient workup appointment. CHF education given. follow BMP and electrolytes outpatient with PCP. Abdominal/chest CT: Incidental shows rectal wall thickening patient denies any GI symptoms as well as no fever or chills . may consider outpatient GI follow-up as per PCP. also chest Ct shows incidenatl- A 1.4 x 1.1 cm right upper paratracheal lymph node (10:105)is increased in size from 0.8 x 0.8 cm on prior: may consider repeating chest imaging in 3-4 weeks with pcp. . rib cage area pain -seems improved ,moving all extermities. PT saw the patient and recommended rehab- patient may benefit from less than 30 day rehab stay. Above management discussed with the patient in detail length he understand and in agreement with the above plan, time spent 50 minutes and 50% time spent on counseling. Significant findings: As above. Procedures performed: None. Treatment and response: As above. Complications: None. Time Spent with Patient Time attestation: Total time spent providing and/or coordinating discharge services: Discharge coordination time: Greater than 30 minutes Quality: Safe Use of Opioids Does Pt have an Active Cancer Diagnosis on the Problem List?: No Quality: Stroke Does the patient have a stroke diagnosis?: No Physical Exam Vital Signs: Vital Signs: Last Vital Signs Temp 98.0 F 10/09/21 07:41 Pulse 89 10/09/21 07:41 Resp 22 H 10/09/21 07:41 BP 102/51 L 10/09/21 07:41 Pulse Ox 98 10/09/21 07:41 BMI result Body Mass Index 34.9 Appearance: Alert.? Oriented X3.? not in distress.? cvs: rrr, [id number] , no murmur res: clear to auscultation ,no rhonchii or wheezing abd: no rebound or guarding ,nt, bs present. ext pulses present , no cyanosis . neuro: axo3 , nonfocal. DS: Data Data Completed and Pending Completed studies during hospitalization [Text1]: Procedures Detoxification Services for Substance Abuse Treatment (06/22/21) Insertion of Endotracheal Airway into Trachea, Via Natural or Artificial Opening Endoscopic (08/03/21) Insertion of Infusion Device into Lower Vein, Percutaneous Approach (08/03/21) Insertion of Infusion Device into Right Femoral Vein, Percutaneous Approach (08/03/21) Insertion of Infusion Device into Superior Vena Cava, Percutaneous Approach (08/03/21) Insertion of Infusion Device into Upper Vein, Percutaneous Approach (07/21/21) Introduction of Remdesivir Anti-infective into Peripheral Vein, Percutaneous Approach, [employer] (06/01/21) Introduction of Vasopressor into Peripheral Vein, Percutaneous Approach (08/03/21) Performance of Urinary Filtration, Intermittent, Less than 6 Hours Per Day (08/03/21) Removal of Infusion Device from Lower Vein, Percutaneous Approach (08/03/21) Respiratory Ventilation, Less than 24 Consecutive Hours (08/03/21) Ultrasonography of Superior Vena Cava, Guidance (08/03/21) Labs on day of discharge: Laboratory Results - last 24 hr 10/08/21 10/08/21 10/08/21 12:37 17:04 17:10 POC Glucose 245 H 226 H COVID-19 (ELIER) Negative COVID-19 Clin Com See Note 10/08/21 10/09/21 21:32 07:04 POC Glucose 268 H 133 H COVID-19 (ELIER) COVID-19 Clin Com Additional Comments Additional comments: ?CT/CT head/brain wo con IMPRESSION: No acute intracranial pathology. Acute fracture subluxation cervical spine. CT/CT chest wo con IMPRESSION: Evaluation of acute traumatic sequela is limited in the absence of intravenous contrast. Similarly, evaluation of subtle spinal fractures is limited in the absence of dedicated reconstructions of the spine. However, accounting for these limitations, no discrete acute traumatic sequela is identified. ? Findings suggestive of small airways disease and pulmonary edema in the lungs. ? Hepatomegaly and hepatic steatosis. ? Similar degree of nonspecific perinephric and retroperitoneal fat stranding. ? Extensive sigmoid diverticulosis without evidence of acute diverticulitis. ?Rectal wall thickening which could be seen with proctocolitis. Correlate clinically, and if indicated evaluation with a colonoscopy could be obtained in a nonemergent basis. in addition chest CT: An enlarged 2.3 x 1.9 cm lower pretracheal lymph node (7:22) is unchanged. A 1.4 x 1.1 cm right upper paratracheal lymph node (10:105) is increased in size from 0.8 x 0.8 cm on prior. Other subcentimeter mediastinal lymph nodes are also not significantly changed. Discharge Plan Discharge Patient Disposition: Xfer SNF Discharge Diagnosis: Acute hypoxemic respiratory failure secondary to CHF exacerbation. [facility] Name,MD Jaylen [Primary Care Provider] - 1 Week Discharge Medications: New magnesium oxide 400 mg (241.3 mg magnesium) Tablet 800 mg PO TID Qty: 10 0RF guaifenesin 100 mg/5 mL Liquid 100 mg PO Q4H PRN (Reason: Cough) Qty: 100 0RF acetaminophen [Tylenol] 325 mg tablet 650 mg PO Q6H PRN (Reason: pain) Qty: 10 0RF benzonatate 100 mg Capsule 100 mg PO TID Qty: 14 0RF furosemide [Lasix] 40 mg tablet 40 mg PO DAILY Qty: 30 0RF lidocaine 5 % adhesive patch,medicated 1 patch topical DAILY Qty: 10 0RF Rx Instructions: leave on most painful area for up to 12 hrs Continued thiamine HCl (vitamin B1) 100 mg tablet 1 tab PO BEDTIME 0RF (DME) FreeStyle Lite Strips Strip MISCELLANEOUS QID 0RF simvastatin 20 mg tablet 1 tab PO BEDTIME 0RF folic acid 1 mg tablet 1 tab PO DAILY@1700 0RF albuterol sulfate 90 mcg/actuation HFA aerosol inhaler 2 puff inhalation Q6H PRN (Reason: Wheezing) 0RF buspirone 5 mg tablet 5 mg PO BID 0RF aspirin 81 mg tablet,delayed release (DR/EC) 1 tab PO BEDTIME 0RF tamsulosin 0.4 mg capsule 1 cap PO DAILY@1700 0RF ramelteon 8 mg tablet 1 tab PO BEDTIME 0RF omeprazole 20 mg capsule,delayed release(DR/EC) 1 cap PO BID@0630,1630 0RF Lantus U-100 Insulin 100 unit/mL solution 45 unit subcut BEDTIME 0RF insulin aspart U-100 [Novolog Flexpen U-100 Insulin] 100 unit/mL (3 mL) Insulin Pen 1 sliding scale dose SUBCUT TIDAC 0RF Protocol: Insulin Correction Scale Less than or equal to 110 ---- Give (units): 0 111 to 150 Give (units): 0 151 to 200 Give (units): 6 201 to 250 Give (units): 8 251 to 300 Give (units): 10 301 to 350 Give (units): 12 Greater than 350 Give (units): 14 Call MD if Blood Glucose > : 350 celecoxib 50 mg capsule 1 cap PO BID 0RF gabapentin 300 mg capsule 600 mg PO TID 0RF Discharge Orders: Discharge Order (Routine); Ordered 10/09/21 Ordered By: Sidney Ron Diet: advance to usual diet Activity on Discharge: As tolerated Stand Alone Forms: Patient Portal Discharge page Care Plan Goals: Patient came to the hospital because of acute hypoxemic respiratory failure secondary to CHF exacerbation: seems to be improved with IV diuresis. going home with p.o. Lasix. hypomagnesemia seems improving, magnesium replacements added. CHF education given. follow BMP and electrolytes outpatient with PCP. Heart doctor may arrange further outpatient workup appointment. Health Concerns: CHF education -low-salt diet, daily weights, if weight increases 2lb/week- please check with PCP- may need for the Lasix adjustment. Plan of Treatment: Continue p.o. Lasix,Encouraged for diet as well as medication compliance. Assessment: as above.
[2021-10-09 09:25] VITALS: BP 102/51; PULSE 89; O2SAT 98
[2021-10-09 11:28] VITALS: BP 103/65; PULSE 90; RESP 20; TEMP 36.7; O2SAT 98
[2021-10-09 11:42] LABS: Glucose, Whole Blood 156 mg/dL (60-115)
--- NOTE | 2021-10-09 12:25 | PC.NURSE ---
Pt refusing bed alarm, chair alarm. Pt refused [employer] camera. Pt retaught high fall risk precautions, necessary interventions due to recent fall. Pt bed in low position, red non-slip socks on, frequent monitoring.
[2021-10-09] MEDS: Insulin Lispro 100 UNIT/ML 3 ML VIAL SUBCUT (12:30)
[2021-10-09] MEDS: Heparin Sodium,Porcine 5,000 UNIT/ML VIAL 5000 UNIT SUBCUT (12:30)
--- NOTE | 2021-10-09 13:41 | MHC.CM.PN ---
Patient has been medically cleared for dc to STR/SNF today. Patient will dc to [facility] today at 3 PM, via [facility]. Last IMM addressed on 10/07/2021.
[2021-10-09] MEDS: Albuterol/Iprat 2.5/0.5MG 3 ML AMPUL.NEB INHALE (14:31)
[2021-10-09 14:36] VITALS: PULSE 88; RESP 18; O2SAT 92
== END 2021-10-09 17:24 | disposition skilled nursing facility (03) | DRG 291 ==
LOC: HO.ED 21:50 → HO.EDOVER 23:01 → HO.IMC 10-08 19:41
PROVIDERS: Physician Assistant; Admitting Provider Internal Medicine; Emergency Provider Emergency Medicine; PCP Internal Medicine Geriatric Medicine; Visit Provider Internal Medicine
DX: I11.0 Hypertensive heart disease with heart failure (principal); I50.33 Acute on chronic diastolic (congestive) heart failure; J96.01 Acute respiratory failure with hypoxia; E66.9 Obesity, unspecified; E78.5 Hyperlipidemia, unspecified; Z68.35 Body mass index [BMI] 35.0-35.9, adult; E83.42 Hypomagnesemia; E87.6 Hypokalemia; Z20.822 Contact with and (suspected) exposure to COVID-19; Z79.4 Long term (current) use of insulin; Z79.82 Long term (current) use of aspirin; Z79.899 Other long term (current) drug therapy
CPT/HCPCS: 36415; 70450; 71250; 72125; 73020; 74176; 80048; 80076; 80307; 81003; 82077; 82550; 82947; 83735; 83880; 84484; 85025; 85610; 85730; 86850; 86900; 86901; 87635; 93005; 94640; 96365; 96375; 96376; 97162; 97530; 99285; 99291; J1170; J1885; J1940; J2270; J3475

== ENCOUNTER 2021-12-11 12:30 | Emergency (ER) | payer OTHER, SELFPAY ==
[2021-12-11] VITALS (9 sets, daily range): BP systolic 95–142; BP diastolic 50–88; PULSE 85–98; RESP 16–24; TEMP 36.1–36.7; O2SAT 92–98; BMI 32.8
--- NOTE | ~2021-12-11 | XR_ITS ---
EXAMINATION: XR CHEST CLINICAL INFORMATION: Cough. COMPARISON: None TECHNIQUE: Frontal view of the chest was obtained. FINDINGS: No significant abnormality is noted involving the heart, lungs, mediastinum, bony thorax or soft tissues. XR/XR chest 1V IMPRESSION: Unremarkable chest examination.
--- NOTE | 2021-12-11 13:27 | ED.GENADULT ---
HPI - General Adult General Chief complaint: General Medical Stated complaint: NAUSEA/ABDO PAIN Time Seen by Provider: 12/11/21 12:57 Source: patient Mode of arrival: EMS Limitations: no limitations History of Present Illness HPI narrative: Patient alcoholic stopped drinking for 2 weeks restarted again last drink was 4 days ago since then patient feels in withdrawal nausea vomiting sweating body aches no fall no diarrhea no melena complaining pain in upper abdomen no fever no chills patient just released from rehab a month ago still feeling weak wheelchair mostly unable to ambulate because of shaking Related Data Home Medications Medication Instructions Recorded Confirmed albuterol sulfate 90 mcg/actuation 2 puff inhalation Q6H PRN Wheezing 12/29/20 10/06/21 aerosol inhaler blood sugar diagnostic (FreeStyle 12/29/20 10/06/21 Lite Strips) folic acid 1 mg tablet 1 tab PO DAILY@1700 12/29/20 10/06/21 simvastatin 20 mg tablet 1 tab PO BEDTIME 12/29/20 10/06/21 thiamine HCl (vitamin B1) 100 mg 1 tab PO BEDTIME 12/29/20 10/06/21 tablet aspirin 81 mg tablet,delayed 1 tab PO BEDTIME 02/04/21 10/06/21 release buspirone 5 mg tablet 5 mg PO BID 02/04/21 10/06/21 ramelteon 8 mg tablet 1 tab PO BEDTIME 05/12/21 10/06/21 tamsulosin 0.4 mg capsule 1 cap PO DAILY@1700 05/12/21 10/06/21 omeprazole 20 mg capsule,delayed 1 cap PO BID@0630,1630 06/01/21 10/06/21 release insulin glargine 100 unit/mL 45 unit subcut BEDTIME 06/24/21 10/06/21 subcutaneous solution (Lantus U-100 Insulin) insulin aspart U-100 100 unit/mL 1 sliding scale dose subcut TIDAC 07/21/21 10/06/21 (3 mL) subcutaneous pen (Novolog Flexpen U-100 Insulin aspart) celecoxib 50 mg capsule 1 cap PO BID 10/06/21 10/06/21 gabapentin 300 mg capsule 600 mg PO TID 10/06/21 10/06/21 Previous Rx's Medication Instructions Recorded acetaminophen 325 mg tablet 650 mg PO Q6H PRN pain #10 tabs 10/08/21 (Tylenol) benzonatate 100 mg capsule 100 mg PO TID #14 caps 10/08/21 furosemide 40 mg tablet (Lasix) 40 mg PO DAILY #30 tabs 10/08/21 guaifenesin 100 mg/5 mL oral liquid 100 mg (5 mL) PO Q4H PRN Cough 10/08/21 #100 mL magnesium oxide 400 mg (241.3 mg 800 mg PO TID #10 tabs 10/08/21 magnesium) tablet lidocaine 5 % topical patch 1 patch topical DAILY #10 ea 10/09/21 Allergies Allergy/AdvReac Type Severity Reaction Status Date / Time ENVIRONMENTAL Allergy Mild SNEEZING, Uncoded 10/06/21 15:49 WATERY EYES Review of Systems Review of Systems: Yes all other systems are reviewed and are negative FOR[facility]LY [facility] Past Medical History Medical History Acute respiratory failure with hypoxia LAUREN (acute kidney injury) Alcohol abuse Anxiety Bilateral pleural effusion Contusion of rib on left side COPD (chronic obstructive pulmonary disease) Diabetes mellitus type 1 Diastolic dysfunction Diastolic heart failure Elevated troponin Fall HLD (hyperlipidemia) Hypertension Nonrheumatic aortic (valve) stenosis Obesity Pneumonia Surgical History H/O elbow surgery H/O shoulder surgery History of hydrocelectomy S/P TURP Family History Family History Father Diabetes Mother Diabetes Social History Social History Household Members: None Housing: Apartment Do you presently have visiting nurse or other home services: No Unable to assess alcohol history related to: Unable to respond Alcohol intake: current Alcohol intake frequency: 0-2 drinks per day Alcohol type: hard liquor Patient Tobacco Use Status: Current everyday Tobacco user Tobacco use type: Cigar e-Cigarette/Vaping Use: Currently Using Second Hand Smoke Exposure: No Use of substances other than those prescribed or required for medical reasons: No Advance Directives: Yes Advance Directives on File: Yes Advance Directives Date on File: 10/11/20 service: No Current occupational status: unemployed and disabled Physical Exam ED Vital Signs: Vital Signs - 24 hr 08/04/22 12:40 12/11/21 13:35 12/11/21 14:08 Temperature Pulse Rate 98 98 98 Respiratory Rate 22 H 22 H 24 H Blood Pressure 100/53 L 100/53 L 115/64 Pulse Oximetry 96 97 97 Oxygen Delivery Method Nasal Cannula Nasal Cannula Room Air Oxygen Flow Rate 2 12/11/21 16:00 Temperature 97.8 F Pulse Rate 91 Respiratory Rate 16 Blood Pressure 133/68 Pulse Oximetry 96 Oxygen Delivery Method Room Air Oxygen Flow Rate BMI result Body Mass Index 32.8 Appearance: Alert. Oriented X3. No acute distress. Anxious Eyes: PERRLA, No Nystagmus ENT: Pharynx normal. Oral Mucosa moist Neck: Normal inspection. Neck supple. CVS: Normal heart rate and rhythm. Pulses normal. Respiratory: No respiratory distress. Equal air entry bilateral, no wheezing/rales/rhonchi Abdomen: Soft and nontender. Bowel sounds are present, no mass palpable, no CVA tenderness Skin: Skin warm and dry. Normal skin color. Normal skin turgor. Tinea corporis and tinea cruris rash all over mostly neck armpit and pubic area Extremities: No lower extremity edema. No calf tenderness Neuro: Oriented X 3. No motor deficit. No sensory deficit.No cerebellar signs , cranial nerves II-XII intact decreased muscle mass lower extremity Medical Decision Making MDM Narrative Medical decision making narrative: 1515 Patient in alcohol withdrawal with stable labs, will IV hydrate him symptomatic treatment consult livestock judging coach. 1600 patient just released from rehab says that he is unable to ambulate still about like to go to rehab again will consult case management Lab Data Lab results reviewed: Yes I reviewed the patient's lab results. Result diagrams: 12/11/21 13:15 12/11/21 13:15 Labs: Lab Results 12/11/21 12/11/21 12/11/21 Range/Units 13:15 13:15 13:15 WBC 7.5 (4.8-10.8) X10*3/uL RBC 5.22 (4.60-5.80) X10*6/uL Hgb 15.3 (14.0-18.0) g/dl Hct 46.7 (42.0-52.0) % MCV 89.5 (80.0-98.0) fL MCH 29.3 (27.0-33.0) pg MCHC 32.8 (31.0-36.0) g/dl RDW 14.6 (11.0-16.0) % Plt Count 262 (160-400) X10*3/uL MPV 8.6 L (9.4-12.4) fL Immature Gran % (Auto) 0.4 (0.0-0.4) % Neut % (Auto) 66.6 (45-73) % Lymph % (Auto) 14.9 L (20-40) % [place] % (Auto) 10.9 (2-11) % Eos % (Auto) 5.7 H (0-4) % Baso % (Auto) 1.5 (0-2) % Lymph # (Auto) 1.1 L (1.2-4.9) X10*3/uL [place] # (Auto) 0.8 (0.1-1.2) X10*3/uL Eos # (Auto) 0.4 (0.0-0.4) X10*3/uL Baso # (Auto) 0.1 (0.0-0.2) X10*3/uL Abs Immat Gran (auto) 0.03 (0.00-0.03) X10*3/uL Absolute Neuts (auto) 5.0 (2.0-8.3) x10*3/uL Absolute Nucleated RBC 0.000 (0.0-0.012) X10*3/uL Nucleated RBC % (auto) 0.0 (0.0-0.2) /100WBC PT 12.5 (10.0-13.1) SEC INR 1.1 (0.9-1.1) Sodium 132 L (135-145) mmol/L Potassium 4.6 D (3.3-5.1) mmol/L Chloride 92 L (96-108) mmol/L Carbon Dioxide 27 (22-29) mmol/L Anion Gap 18 (12-20) BUN 12 (9-16) mg/dL Creatinine 1.13 (0.5-1.4) mg/dL Estim Creat Clear Calc 72.9 Estimated GFR > 60 Random Glucose 189 H (60-115) mg/dL Calcium 9.7 D (8.4-10.2) mg/dL Magnesium 1.8 (1.6-2.6) mg/dL Total Bilirubin 0.9 (0.0-1.0) mg/dL AST 28 D (5-37) U/L ALT 13 (0-40) U/L Alkaline Phosphatase 190 H D (39-117) U/L Total Protein 7.6 D (6.5-8.0) g/dL Albumin 4.3 (3.5-5.0) g/dL Lipase 21 (8-78) U/L Ethyl Alcohol < 10 mg/dL COVID-19 (ELIER) (Negative) COVID-19 Clin Com 12/11/21 Range/Units 14:05 WBC (4.8-10.8) X10*3/uL RBC (4.60-5.80) X10*6/uL Hgb (14.0-18.0) g/dl Hct (42.0-52.0) % MCV (80.0-98.0) fL MCH (27.0-33.0) pg MCHC (31.0-36.0) g/dl RDW (11.0-16.0) % Plt Count (160-400) X10*3/uL MPV (9.4-12.4) fL Immature Gran % (Auto) (0.0-0.4) % Neut % (Auto) (45-73) % Lymph % (Auto) (20-40) % Lancaster % (Auto) (2-11) % Eos % (Auto) (0-4) % Baso % (Auto) (0-2) % Lymph # (Auto) (1.2-4.9) X10*3/uL Lancaster # (Auto) (0.1-1.2) X10*3/uL Eos # (Auto) (0.0-0.4) X10*3/uL Baso # (Auto) (0.0-0.2) X10*3/uL Abs Immat Gran (auto) (0.00-0.03) X10*3/uL Absolute Neuts (auto) (2.0-8.3) x10*3/uL Absolute Nucleated RBC (0.0-0.012) X10*3/uL Nucleated RBC % (auto) (0.0-0.2) /100WBC PT (10.0-13.1) SEC INR (0.9-1.1) Sodium (135-145) mmol/L Potassium (3.3-5.1) mmol/L Chloride (96-108) mmol/L Carbon Dioxide (22-29) mmol/L Anion Gap (12-20) BUN (9-16) mg/dL Creatinine (0.5-1.4) mg/dL Estim Creat Clear Calc Estimated GFR Random Glucose (60-115) mg/dL Calcium (8.4-10.2) mg/dL Magnesium (1.6-2.6) mg/dL Total Bilirubin (0.0-1.0) mg/dL AST (5-37) U/L ALT (0-40) U/L Alkaline Phosphatase (39-117) U/L Total Protein (6.5-8.0) g/dL Albumin (3.5-5.0) g/dL Lipase (8-78) U/L Ethyl Alcohol mg/dL COVID-19 ([facility]) Negative (Negative) COVID-19 Clin Com See Note Discharge Plan Discharge Clinical Impression: Alcohol withdrawal, Weakness Patient Disposition: Still a Patient Prescriptions: No Action thiamine HCl (vitamin B1) 100 mg tablet 1 tab PO BEDTIME (DME) FreeStyle Lite Strips Strip MISCELLANEOUS QID simvastatin 20 mg tablet 1 tab PO BEDTIME folic acid 1 mg tablet 1 tab PO DAILY@1700 albuterol sulfate 90 mcg/actuation HFA aerosol inhaler 2 puff inhalation Q6H PRN (Reason: Wheezing) buspirone 5 mg tablet 5 mg PO BID aspirin 81 mg tablet,delayed release (DR/EC) 1 tab PO BEDTIME tamsulosin 0.4 mg capsule 1 cap PO DAILY@1700 ramelteon 8 mg tablet 1 tab PO BEDTIME omeprazole 20 mg capsule,delayed release(DR/EC) 1 cap PO BID@0630,1630 Lantus U-100 Insulin 100 unit/mL solution 45 unit subcut BEDTIME insulin aspart U-100 [Novolog Flexpen U-100 Insulin] 100 unit/mL (3 mL) Insulin Pen 1 sliding scale dose SUBCUT TIDAC Protocol: Insulin Correction Scale Less than or equal to 110 ---- Give (units): 0 111 to 150 Give (units): 0 151 to 200 Give (units): 6 201 to 250 Give (units): 8 251 to 300 Give (units): 10 301 to 350 Give (units): 12 Greater than 350 Give (units): 14 Call MD if Blood Glucose > : 350 celecoxib 50 mg capsule 1 cap PO BID gabapentin 300 mg capsule 600 mg PO TID magnesium oxide 400 mg (241.3 mg magnesium) Tablet 800 mg PO TID Qty: 10 0RF benzonatate 100 mg Capsule 100 mg PO TID Qty: 14 0RF guaifenesin 100 mg/5 mL Liquid 100 mg PO Q4H PRN (Reason: Cough) Qty: 100 0RF acetaminophen [Tylenol] 325 mg tablet 650 mg PO Q6H PRN (Reason: pain) Qty: 10 0RF furosemide [Lasix] 40 mg tablet 40 mg PO DAILY Qty: 30 0RF lidocaine 5 % adhesive patch,medicated 1 patch topical DAILY Qty: 10 0RF Rx Instructions: leave on most painful area for up to 12 hrs
[2021-12-11 13:51] LABS: MANUAL DIFF FLAG NO
[2021-12-11 13:55] LABS: Basophils Absolute Auto 0.1 X10*3/uL (0.0-0.2); Basophils Percent Auto 1.5 % (0-2); Eosinophils Absolute Auto 0.4 X10*3/uL (0.0-0.4); Eosinophils Percent Auto 5.7 % (0-4); Hematocrit 46.7 % (42.0-52.0); Hemoglobin 15.3 g/dl (14.0-18.0); Imm Gran Abs Auto 0.03 X10*3/uL (0.00-0.03); Imm Gran Pct Auto 0.4 % (0.0-0.4); Lymphocytes Absolute Auto 1.1 X10*3/uL (1.2-4.9); Lymphocytes Percent Auto 14.9 % (20-40); Mean Corpuscular HGB Conc 32.8 g/dl (31.0-36.0); Mean Corpuscular Hemoglobin 29.3 pg (27.0-33.0); Mean Corpuscular Volume 89.5 fL (80.0-98.0); Mean Platelet Volume 8.6 fL (9.4-12.4); Monocytes Absolute Auto 0.8 X10*3/uL (0.1-1.2); Monocytes Percent Auto 10.9 % (2-11); Neutrophils Percent Auto 66.6 % (45-73); Platelet Count 262 X10*3/uL (160-400); Red Blood Count 5.22 X10*6/uL (4.60-5.80); Red Cell Distribution Width 14.6 % (11.0-16.0); White Blood Count 7.5 X10*3/uL (4.8-10.8)
[2021-12-11] MEDS: 0.9 % Sodium Chloride 1,000 ML 999 ML IV ×2 (14:01→16:46)
[2021-12-11] MEDS: ondansetron HCL 4 MG/2 ML VIAL IVPUSH (14:01)
[2021-12-11 14:03] LABS: INTERNATIONAL NORM RATIO 1.1 (0.9-1.1); Prothrombin Time 12.5 SEC (10.0-13.1)
[2021-12-11] MEDS: guaiFEN/Codeine SF 200/20/10ML 10 ML LIQUID PO (14:06)
[2021-12-11] MEDS: LORazepam 1 MG TABLET 2 MG PO (14:06)
[2021-12-11 14:09] LABS: Alanine Aminotransferase 13 U/L (0-40); Albumin Level 4.3 g/dL (3.5-5.0); Alkaline Phosphatase 190 U/L (39-117); Anion Gap 18 (12-20); Aspartate Amino Transferase 28 U/L (5-37); Bilirubin Total 0.9 mg/dL (0.0-1.0); Blood Urea Nitrogen 12 mg/dL (9-16); Calcium 9.7 mg/dL (8.4-10.2); Carbon Dioxide 27 mmol/L (22-29); Chloride 92 mmol/L (96-108); Creatinine Clr Calc Pharmacy 72.9; Estimated Glomerular Filt Rate > 60; Ethanol < 10 mg/dL; Glucose Random 189 mg/dL (60-115); Lipase 21 U/L (8-78); Magnesium 1.8 mg/dL (1.6-2.6); Potassium 4.6 mmol/L (3.3-5.1); Sodium 132 mmol/L (135-145); Total Protein 7.6 g/dL (6.5-8.0)
[2021-12-11 14:48] LABS: COVID-19 Test Negative (Negative); IDNOW Serial# 9DD0AD1C
[2021-12-11] MEDS: Fluconazole 150 MG TABLET 200 MG PO (16:46)
[2021-12-11] MEDS: chlordiazePOXIDE HCl 25 MG CAPSULE PO (16:47)
[2021-12-11] MEDS: Thiamine HCL 100 MG TABLET PO (16:48)
[2021-12-11] MEDS: Folic Acid 1 MG TABLET PO (16:48)
--- NOTE | 2021-12-11 17:02 | PC.NURSE ---
patient ask for gram cracker and wojciech freddie .
--- NOTE | 2021-12-11 17:05 | PC.NURSE ---
medicated per provider order, pt reporting some itching and chest tightness, provider aware, vss.
--- NOTE | 2021-12-11 18:04 | MHC.CM.ED ---
Addendum entered by Jewels Rodriguez 12/11/21 23:14: flag football coach met with patient. Referrals to detox made; no beds tonight. Dr. Verduzco does not feel pt is in withdrawal. Pt states he cannot walk well. PT pending. Referrals placed. [facility] first choice. HCP on file. [facility] on file. Full Code. Moderna x3. PT evaluation pending. CM to follow for d/c needs. Original Note: CM met with patient at request of Dr. Berry. Unsure if pt needs detox or STR. Recovery not yet in (1599). Met with patient. Pt c/o withdrawal symptoms. Feeling shaky and unwell. States he cannot ambulate because he is too shaky. Has a walker, but does not use it. Uses home O2 at night. Pt has been to [facility] in [facility] ([facility] Explained to pt that if he is in withdrawal, then he needs detox. Explained that STR is usually more physical therapy. Spoke with Dr Verduzco, who is now caring for the pt. Dr. Verduzco agrees that the patient would be best served by meeting with silver recovery operator at this time, and not with CM.
--- NOTE | 2021-12-11 19:46 | PHA.MEDREC ---
Pharmacy Consult ? Medication Reconciliation Pharmacy has completed the medication reconciliation. Med rec completed using claim history/last admission
[2021-12-11 20:57] LABS: Venous Blood Gas Refer to POC result
[2021-12-11 20:58] LABS: VBG Base Excess 2.8 mmol/L; VBG HCO3 23 mmol/L (22-26); VBG pCO2 24 mmHg; VBG pH 7.57 (7.32-7.43); VBG pO2 196 mmHg
[2021-12-11] MEDS: Albuterol/Iprat 2.5/0.5MG 3 ML AMPUL.NEB INHALE (21:39)
[2021-12-11 21:42] LABS: B Type Natriuretic Peptide 179 pg/mL (<100)
--- NOTE | 2021-12-11 21:50 | MHC.RECOVSUP ---
? Reason for consult:ETOH o Current location:ED16 o Identified substance use concern: - Withdrawal - Seeking ATS (detox) ? Intervention: o ATS bed search started/completed/in process ? Plan: o Bed search in progress to [facility] o Follow up tomorrow ? Additional information:Rc met with pt, pt stated his last drink was Wednesday and that he's in withdrawal, bed search started, but unsuccessful.
[2021-12-11 22:52] LABS: Glucose, Whole Blood 149 mg/dL (60-115)
[2021-12-11] MEDS: Aspirin Enteric Coated 81 MG TABLET.DR PO (23:22)
[2021-12-11] MEDS: guaiFENesin 200 MG/10 ML 10 ML LIQUID PO (23:23)
--- NOTE | 2021-12-11 23:23 | PC.NURSE ---
medicated per provider order, pt requesting cough medicine for increased coughing.
--- NOTE | 2021-12-11 23:55 | PC.NURSE ---
pt reporting he is cold, thinks he might have a fever, temp 97.8, given warm blanket.
--- NOTE | 2021-12-12 02:10 | PC.NURSE ---
pt requesting pain medication or valium, pt does not have any PRNs available, provider notified.
[2021-12-12 02:30] VITALS: BP 110/68; PULSE 65; RESP 18; TEMP 37.1; O2SAT 98
[2021-12-12] MEDS: Albuterol Sulfate 90 MCG 8 GM INHALER 2 PUFF INHALE ×2 (02:54→08:23)
--- NOTE | 2021-12-12 02:58 | PC.NURSE ---
pt requesting pain medication and breathing treatment, offered evening dose of gabapentin per provider order, pt declined, resp contacted and in room w inhaler.
--- NOTE | 2021-12-12 04:47 | PC.NURSE ---
Pt rang in requesting robitussin AC. Jayda Verde RN to bedside, TT Dr Gomez for pt's request. Per Patricia TT v/o, 5mL of robitussin AC ordered. This RN verified Dr Gomez's TT and placed order as instructed. This RN to bedside to medicate. This RN notes that pt is not a hospitalist pt but rather a CM patient. This RN notifies Dr Thibodeaux of situation who agrees to order 5ml robitussin AC. Dr Gomez's order discontinued, Dr Thibodeaux's v/o placed and pt medicated.
[2021-12-12] MEDS: guaiFEN/Codeine SF 200/20/10ML 10 ML LIQUID 5 ML PO (04:51)
[2021-12-12] MEDS: Omeprazole 20 MG CAPSULE.DR PO ×2 (06:43→16:26)
[2021-12-12 07:58] VITALS: BP 134/61; PULSE 88; RESP 20; O2SAT 95
--- NOTE | 2021-12-12 08:04 | PC.NURSE ---
pt alert and oriented, skin pwd, respirations even and unlabored, ls expiatory wheezing, pt keeps yelling that nobody is helping him, that he has pain all over, headache/neck/body everywhere that he wants pain medication and feels like he might be going into withdrawal, last drink was on 12/08/21. pt also made statements that if things don't hurry up the pt will just walk home.
[2021-12-12] MEDS: Acetaminophen 325 MG TABLET 975 MG PO (09:13)
[2021-12-12] MEDS: Multivitamin TABLET 1 TAB PO (09:13)
[2021-12-12] MEDS: busPIRone HCl 5 MG TABLET PO ×2 (09:14→22:12)
[2021-12-12 09:32] VITALS: BP 134/61; PULSE 88; O2SAT 95
--- NOTE | 2021-12-12 09:44 | MHC.RECOVRN ---
Briefly met with pt in ED16 to assess for alcohol withdrawal. PT finishing up with pt when t/w entered room. Pt states There will be no moving for a long time. My chest hurts, my throat hurts, I need something more than Tylenol. I can't even roll over. Pt laying in bed, does not appear to be in distress or experiencing withdrawal. Pt frustrated when t/w inquires about last drink Everybody asks me that! Reports last use was Wednesday. Pt reports having experienced withdrawal symptoms on Wednesday, does not report current symptoms. Pt focused on receiving pain medication, denies questions or concerns relating to AUD. Discussed with CM as well as ED provider.
--- NOTE | 2021-12-12 10:42 | MHC.CM.ED ---
Patient remains in ER. Physical therapy eval completed. Clinical updates sent via [facility] to all facilities following patient. Patient will need a [facility] PASRR Level 2 exemption letter. T/W already submitted to [facility]. Continue to monitor for d/c needs.
[2021-12-12 11:20] VITALS: BP 127/98; PULSE 93; RESP 18; TEMP 36.5; O2SAT 96
[2021-12-12 12:52] VITALS: BP 107/80; PULSE 93; RESP 18; TEMP 36.6; O2SAT 97
--- NOTE | 2021-12-12 13:18 | MHC.CARE ---
CARE Team met with pt at the request of Case Management.? Pt denies SI, HI, and self-harm urges.? He denies any AVH or hx of such.? Pt does express that he is in a great deal of pain and requires ?more than just Tylenol?, otherwise, pt does not appear to be in any distress.? Pt expresses that he is hoping to discharge to rehab soon.? Pt does not appear to be a risk.
[2021-12-12] MEDS: Tamsulosin HCL 0.4 MG CAPSULE PO (16:26)
[2021-12-12] MEDS: Benzonatate 100 MG CAPSULE PO (16:26)
[2021-12-12] MEDS: Folic Acid 1 MG TABLET PO (16:27)
[2021-12-12] MEDS: guaiFENesin 100 MG/5 ML LIQUID PO (16:39)
--- NOTE | 2021-12-12 19:04 | PC.NURSE ---
Assumed care of this pt. at 1900 - report from Rachel Campuzano RN
[2021-12-12 21:14] LABS: Glucose, Whole Blood 180 mg/dL (60-115)
--- NOTE | 2021-12-12 21:18 | PC.NURSE ---
Pt.'s POC 180 and pt. stated that he did not eat any of dinner tray because he wasn't hungry. Confirmed with Claudine Verduzco MD whether or not to administer the HS dose of 45U Lantus insulin. Per MD Dax, administer dose
[2021-12-12] MEDS: Insulin Glargine,Hum.rec.anlog 100 UNIT/ML 10 ML VIAL 45 UNIT SUBCUT (22:10)
[2021-12-12] MEDS: Thiamine HCL 100 MG TABLET PO (22:12)
[2021-12-12] MEDS: Aspirin Enteric Coated 81 MG TABLET.DR PO (22:13)
[2021-12-12] MEDS: Atorvastatin Calcium 10 MG TABLET PO (22:13)
[2021-12-13] VITALS (7 sets, daily range): BP systolic 111–121; BP diastolic 42–67; PULSE 83–90; RESP 16–18; TEMP 36.4–36.9; O2SAT 92–98
[2021-12-13] MEDS: Omeprazole 20 MG CAPSULE.DR PO ×2 (06:06→18:10)
[2021-12-13] MEDS: Benzonatate 100 MG CAPSULE PO ×2 (06:06→18:10)
[2021-12-13] MEDS: busPIRone HCl 5 MG TABLET PO ×2 (09:06→21:32)
[2021-12-13] MEDS: Acetaminophen 325 MG TABLET 650 MG PO ×2 (09:06→18:11)
[2021-12-13] MEDS: Multivitamin TABLET 1 TAB PO (09:07)
--- NOTE | 2021-12-13 09:09 | PC.NURSE ---
pt is a/o x 3 c/o sob, refused rescue inhaler at this time. speaks in full sentences. pt is very obnoxious, demeaning and demanding. pt refused gabapentin stating that the med damages his kidneys. mlp aware.
--- NOTE | 2021-12-13 13:14 | PC.NURSE ---
pt is a/o x 3 no sob/lizbet noted skin pink warm dry speaks in full sentences. pt c/o sob, lungs - slight exp wheezing to mar upper lobes, mar lower lobes diminished. mlp (reynaldo) aware. pt to have neb tx.
[2021-12-13] MEDS: Albuterol/Iprat 2.5/0.5MG 3 ML AMPUL.NEB INHALE (14:26)
--- NOTE | 2021-12-13 18:02 | PC.NURSE ---
Pt reports generalized pain /. Refuses blood pressure check.
[2021-12-13] MEDS: Folic Acid 1 MG TABLET PO (18:10)
[2021-12-13] MEDS: Tamsulosin HCL 0.4 MG CAPSULE PO (18:10)
--- NOTE | 2021-12-13 18:21 | PC.NURSE ---
Pt a/o x3. Angry and agitated at the bedside. Reports cough and congestion and requesting cough syrup I need something for decongestion. . Pt also refuses gabapentin stating it damages my kidneys. Vulgar language used towards this magnetic tape typewriter operator. Unlabored breathing. Pt refusing full skin assessment. Reports being unable to complete bed mobility due to generalised pain. Provider notified.
[2021-12-13] MEDS: Albuterol Sulfate 90 MCG 8 GM INHALER 2 PUFF INHALE (21:31)
[2021-12-13] MEDS: Atorvastatin Calcium 10 MG TABLET PO (21:32)
[2021-12-13] MEDS: Thiamine HCL 100 MG TABLET PO (21:32)
[2021-12-13] MEDS: Aspirin Enteric Coated 81 MG TABLET.DR PO (21:32)
[2021-12-13] MEDS: Insulin Glargine,Hum.rec.anlog 100 UNIT/ML 10 ML VIAL 45 UNIT SUBCUT (21:37)
[2021-12-13 21:42] LABS: Glucose, Whole Blood 207 mg/dL (60-115)
[2021-12-13] MEDS: guaiFENesin 100 MG/5 ML LIQUID PO (21:55)
[2021-12-14 07:37] VITALS: BP 120/61; PULSE 86; RESP 14; TEMP 36.8; O2SAT 97
[2021-12-14] MEDS: busPIRone HCl 5 MG TABLET PO ×2 (09:31→20:38)
--- NOTE | 2021-12-14 09:53 | PC.NURSE ---
pt yelling out for help, referred to t/w as an idiot because why don't we know that he doesn't take his gabapentin . pt reports that this hospital sucks . pt looking for a breathing treatment, informed pt that respiratory has been called and will be down to see him when they are available.
[2021-12-14] MEDS: Albuterol Sulfate 90 MCG 8 GM INHALER 2 PUFF INHALE (10:04)
[2021-12-14] MEDS: guaiFENesin 100 MG/5 ML LIQUID PO ×2 (11:39→20:38)
[2021-12-14] MEDS: Acetaminophen 325 MG TABLET 650 MG PO ×2 (11:41→20:51)
--- NOTE | 2021-12-14 13:56 | PC.NURSE ---
PT DOES NOT TAKE HIS GABAPENTIN
[2021-12-14 14:03] VITALS: RESP 18
[2021-12-14] MEDS: Omeprazole 20 MG CAPSULE.DR PO (18:40)
[2021-12-14] MEDS: Folic Acid 1 MG TABLET PO (18:40)
[2021-12-14] MEDS: Tamsulosin HCL 0.4 MG CAPSULE PO (18:40)
[2021-12-14] MEDS: Atorvastatin Calcium 10 MG TABLET PO (20:38)
[2021-12-14] MEDS: Insulin Glargine,Hum.rec.anlog 100 UNIT/ML 10 ML VIAL 45 UNIT SUBCUT (20:38)
[2021-12-14] MEDS: Thiamine HCL 100 MG TABLET PO (20:38)
[2021-12-14] MEDS: Aspirin Enteric Coated 81 MG TABLET.DR PO (20:38)
[2021-12-14] MEDS: Albuterol/Iprat 2.5/0.5MG 3 ML AMPUL.NEB INHALE (20:42)
[2021-12-14 23:51] VITALS: BP 98/35; PULSE 86; RESP 20; O2SAT 98
[2021-12-15] MEDS: guaiFENesin 100 MG/5 ML LIQUID PO (05:15)
--- NOTE | 2021-12-15 05:17 | PC.NURSE ---
I assumed nursing care of at 1900. Since that time he has been resting in bed, aware that he is awaiting placement at a rehab facility. has bene alert, oriented x 3, makes eye contact with RN. he is often very demanding when requesting help or asking for medicines - I have encouraged him to attempt to be less demanding and more polite with those who are helping him. Respirations are non-labored, RR 20, no cyanosis, he speaks in full sentences. He requests PRN DuoNeb - given by RT. complains of pain everywhere and requests Tylenol for this - Tylenol was given. He states the everywhere pain is not new, I have it all the time. No chest pain. No nausea. No vomiting. We will continue to monitor
--- NOTE | 2021-12-15 08:47 | MHC.CM.PN ---
Addendum entered by Norma Camarena 12/15/21 14:45: [facility] NOW REPORTS THEY CAN TRANSPORT PT BETWEEN 1600 AND 1630 Addendum entered by Norma Camarena 12/15/21 14:13: [facility] DETERMINATION LETTER RECEIVED VIA EMAIL AND SENT TO SNF BLS TRANSPORT REQUESTED VIA [facility] ACTION INDICATES THEY WOULD BE AVAILABLE AROUND 1700 HOURS Addendum entered by Norma Camarena 12/15/21 13:39: [facility] IS OFFERING A BED INSURANCE HAS PROVIDED AUTH CM CALLED [facility] [phone] AND REQUESTED PTS LEVEL II EXEMPTION LETTER BE EMAILED ONCE [facility] LETTER IS RECEIVED, PT WILL DC TO SNF VIA BLS Original Note: PT AWAITING STR PLACEMENT. BROAD REFERRAL MADE TO 20 SNF'S REFERRAL HAS BEEN DECLINED BY 18 OF THE RECIPIENTS [facility] FOLLOWING UPDATES SENT
[2021-12-15 09:07] VITALS: BP 102/69; PULSE 88; RESP 16; O2SAT 97
[2021-12-15] MEDS: busPIRone HCl 5 MG TABLET PO (09:59)
[2021-12-15] MEDS: Multivitamin TABLET 1 TAB PO (09:59)
[2021-12-15] MEDS: Omeprazole 20 MG CAPSULE.DR PO (09:59)
[2021-12-15] MEDS: Gabapentin 300 MG CAPSULE 600 MG PO (09:59)
[2021-12-15] MEDS: Acetaminophen 325 MG TABLET 650 MG PO (10:04)
== END 2021-12-15 17:00 ==
PROVIDERS: Student in an Organized Health Care Education/Training Program; Emergency Provider Internal Medicine; PCP Internal Medicine Geriatric Medicine
DX: F10.130 Alcohol abuse with withdrawal, uncomplicated (principal); Y90.0 Blood alcohol level of less than 20 mg/100 ml; R53.1 Weakness; F41.9 Anxiety disorder, unspecified; B35.4 Tinea corporis; B35.6 Tinea cruris; Z20.822 Contact with and (suspected) exposure to COVID-19; E11.9 Type 2 diabetes mellitus without complications; I10 Essential (primary) hypertension; E78.5 Hyperlipidemia, unspecified; F17.200 Nicotine dependence, unspecified, uncomplicated; E66.9 Obesity, unspecified; Z68.32 Body mass index [BMI] 32.0-32.9, adult; Z79.02 Long term (current) use of antithrombotics/antiplatelets; Z79.899 Other long term (current) drug therapy; Z79.82 Long term (current) use of aspirin; Z79.4 Long term (current) use of insulin
CPT/HCPCS: 36415; 71045; 80053; 82077; 82803; 82947; 83690; 83735; 83880; 85025; 85610; 87635; 96361; 96374; 97162; 99285; J2405

== ENCOUNTER 2022-03-15 17:45 | Inpatient (IN) | payer OTHER, SELFPAY ==
--- NOTE | ~2022-03-15 | CT_ITS ---
EXAMINATION: CT CHEST, ABDOMEN AND PELVIS WITH CONTRAST CLINICAL INFORMATION: Pneumonia, testicular swelling and redness COMPARISON: 10/06/2021 TECHNIQUE: Multidetector volumetric imaging was performed of the chest, abdomen and pelvis following administration of oral and 85 mL Omnipaque 350 intravenous contrast. Sagittal and coronal reformatted images were obtained on the technologist's workstation. This CT examination was performed using dose optimization techniques as appropriate, variously including the following: *Automated exposure control *Adjustment of mA and/or kV according to patient size (this includes techniques or standardized protocols for targeted exams where dose is matched to indication/reason for exam; i.e. extremities or head) *Use of iterative reconstruction technique DLP: 1837 mGy-cm FINDINGS: CHEST, ABDOMINAL AND PELVIC WALL: Unremarkable. LUNGS: Evaluation of the lungs is limited due to respiratory motion artifact. Central airways are patent. MEDIASTINUM: There is a pretracheal mediastinal node measuring 1.3 cm (5:26), unchanged. No hilar adenopathy. PLEURA: There is no pleural effusion. No pleural mass or thickening. AXILLA: No lymphadenopathy. LIVER AND BILIARY TREE: Hepatic steatosis. No suspicious liver lesions. GALLBLADDER: Unremarkable PANCREAS: Unremarkable SPLEEN: Unremarkable ADRENAL GLANDS: Unremarkable. KIDNEYS AND URETERS: No hydronephrosis or nephrolithiasis. Redemonstration of bilateral perirenal stranding, unchanged from prior study. GASTROINTESTINAL TRACT: Colonic diverticulosis, no CT findings of acute diverticulitis. The small and large bowel are unremarkable. Appendix is within normal limits. VASCULAR: Aortic atherosclerotic calcifications, no aneurysmal dilation. LYMPH NODES: No lymphadenopathy. FREE FLUID: No free fluid. BLADDER: Unremarkable PELVIC VISCERA: Unremarkable OSSEOUS STRUCTURES: Old bilateral rib fractures. CT/CT chest w IV con IMPRESSION: 1. No subcutaneous air in the soft tissues to suggest Virgil's gangrene.. However please note that this is a clinical diagnosis made on physical exam. Testes are not included in [id number] CT scan. 2. Evaluation of the lungs is limited due to respiratory motion artifact. 3. Unchanged pretracheal mediastinal node measuring 1.3 cm. 4. Hepatic steatosis. 5. Bilateral perirenal stranding, unchanged from prior study. No hydronephrosis or nephrolithiasis. 6. Colonic diverticulosis, no CT findings of acute diverticulitis.
--- NOTE | ~2022-03-15 | XR_ITS ---
EXAMINATION: XR chest 1V CLINICAL INFORMATION: Dyspnea COMPARISON: 03/15/2022 TECHNIQUE: XR chest 1V Tubes and lines: None Lungs and pleura: Both lungs are clear. Heart and mediastinum: The mediastinum is within normal limits.. Bones/soft tissue: Right shoulder prosthesis unchanged. Skeletal structures included are normal for patient's age. XR/XR chest 1V IMPRESSION: No radiographic evidence of acute infiltrates or failure.
--- NOTE | ~2022-03-15 | CT_ITS ---
EXAMINATION: CT HEAD WITHOUT CONTRAST CLINICAL INFORMATION: Altered mental status COMPARISON: Head CT 10/06/2021 TECHNIQUE: Imaging was performed from the skull base to vertex without intravenous administration of contrast. This CT examination was performed using dose optimization techniques as appropriate, variously including the following: *Automated exposure control *Adjustment of mA and/or kV according to patient size (this includes techniques or standardized protocols for targeted exams where dose is matched to indication/reason for exam; i.e. extremities or head) *Use of iterative reconstruction technique Total exam dose length product: 834 mGy-cm FINDINGS: No intra or extra-axial fluid collection, hemorrhage, or mass. No ventriculomegaly. No midline shift or herniation. Basal cisterns are patent. Garcia-white matter differentiation is maintained. No territorial encephalomalacia. Proportional prominence of the ventricles and sulcal spaces is consistent with mild volume loss. There is a minimal hypoattenuation in the periventricular white matter bilaterally, nonspecific No calvarial fracture or soft tissue abnormality. There is mucosal thickening in left ethmoid air cells and maxillary antrum. Small amount of fluid partially opacifying a few mastoid air cells bilaterally, nonspecific. Mild orbital proptosis bilaterally. CT/CT head/brain wo IV con IMPRESSION: No acute intracranial pathology.
--- NOTE | ~2022-03-15 | XR_ITS ---
EXAMINATION: XR CHEST CLINICAL INFORMATION: Pneumonia COMPARISON: 12/11/2021 TECHNIQUE: Frontal view of the chest was obtained. FINDINGS: Clear lungs. No effusion or pneumothorax. Mild fullness of the left hilum, unchanged from prior study. XR/XR chest 1V IMPRESSION: Mild fullness of the left hilum, unchanged from prior study.
--- NOTE | ~2022-03-15 | CT_ITS ---
EXAMINATION: CT PELVIS WITHOUT CONTRAST CLINICAL INFORMATION: Scrotum redness, free air, rule out scrotal redness, question free air COMPARISON: 03/15/2022 TECHNIQUE: Helical scanning was performed with submillimeter collimation through the pelvis. Sagittal and coronal multiplanar 2-D reconstructions were obtained. This CT examination was performed using dose optimization techniques as appropriate, variously including the following: *Automated exposure control *Adjustment of mA and/or kV according to patient size (this includes techniques or standardized protocols for targeted exams where dose is matched to indication/reason for exam; i.e. extremities or head) *Use of iterative reconstruction technique DLP: 531 mGy-cm FINDINGS: No perineal or scrotal gas. No significant subcutaneous edema. Partially visualized nonspecific perinephric stranding adjacent to the lower kidneys. Moderately distended bladder which is partially filled with contrast material. Prostate gland is grossly unremarkable. Colonic diverticulosis noted. No intrapelvic free fluid or free air. Tiny fat-containing inguinal hernias. Scattered atherosclerotic calcifications. No lymphadenopathy is seen. There are degenerative changes in the sacroiliac joints, hips, and visualized lower lumbar spine. 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 CT/CT pelvis wo IV con IMPRESSION: No perineal or scrotal gas. No significant subcutaneous edema.
--- NOTE | ~2022-03-15 | CT_ITS ---
EXAMINATION: CT CHEST, ABDOMEN AND PELVIS WITH CONTRAST CLINICAL INFORMATION: Pneumonia, testicular swelling and redness COMPARISON: 10/06/2021 TECHNIQUE: Multidetector volumetric imaging was performed of the chest, abdomen and pelvis following administration of oral and 85 mL Omnipaque 350 intravenous contrast. Sagittal and coronal reformatted images were obtained on the technologist's workstation. This CT examination was performed using dose optimization techniques as appropriate, variously including the following: *Automated exposure control *Adjustment of mA and/or kV according to patient size (this includes techniques or standardized protocols for targeted exams where dose is matched to indication/reason for exam; i.e. extremities or head) *Use of iterative reconstruction technique DLP: 1837 mGy-cm FINDINGS: CHEST, ABDOMINAL AND PELVIC WALL: Unremarkable. LUNGS: Evaluation of the lungs is limited due to respiratory motion artifact. Central airways are patent. MEDIASTINUM: There is a pretracheal mediastinal node measuring 1.3 cm (5:26), unchanged. No hilar adenopathy. PLEURA: There is no pleural effusion. No pleural mass or thickening. AXILLA: No lymphadenopathy. LIVER AND BILIARY TREE: Hepatic steatosis. No suspicious liver lesions. GALLBLADDER: Unremarkable PANCREAS: Unremarkable SPLEEN: Unremarkable ADRENAL GLANDS: Unremarkable. KIDNEYS AND URETERS: No hydronephrosis or nephrolithiasis. Redemonstration of bilateral perirenal stranding, unchanged from prior study. GASTROINTESTINAL TRACT: Colonic diverticulosis, no CT findings of acute diverticulitis. The small and large bowel are unremarkable. Appendix is within normal limits. VASCULAR: Aortic atherosclerotic calcifications, no aneurysmal dilation. LYMPH NODES: No lymphadenopathy. FREE FLUID: No free fluid. BLADDER: Unremarkable PELVIC VISCERA: Unremarkable OSSEOUS STRUCTURES: Old bilateral rib fractures. CT/CT abdomen pelvis w IV con IMPRESSION: 1. No subcutaneous air in the soft tissues to suggest Virgil's gangrene.. However please note that this is a clinical diagnosis made on physical exam. Testes are not included in [id number] CT scan. 2. Evaluation of the lungs is limited due to respiratory motion artifact. 3. Unchanged pretracheal mediastinal node measuring 1.3 cm. 4. Hepatic steatosis. 5. Bilateral perirenal stranding, unchanged from prior study. No hydronephrosis or nephrolithiasis. 6. Colonic diverticulosis, no CT findings of acute diverticulitis.
[2022-03-15 17:53] VITALS: BP 148/90; PULSE 95; O2SAT 98; BMI 31.2
[2022-03-15 18:00] VITALS: BP 128/64; PULSE 92; RESP 16; TEMP 36.8; O2SAT 96
[2022-03-15 18:06] LABS: Glucose, Whole Blood 283 mg/dL (60-115)
--- OUTSIDE RECORDS SUMMARY | 2022-03-15 18:12 | XMS_ITS ---
:1955 Author Care Team Providers Name Role Phone [facility] Primary Care Provider [phone] [facility] Primary Care Provider [phone] Allergies Code Code System Name Reaction Severity Status Onset NKDA ? Medications Name Status Start Date Stop Date ? ? acamprosate 333 mg tablet,delayed release Active ? Not available albuterol sulfate 2.5 mg/3 mL (0.083 %) solution for nebulizatio n Active ? Not available INHALE 1 AMPULE USING A NEBULIZER FOUR TIMES DAILY albuterol sulfate HFA 90 mcg/actuation aerosol inhaler Active ? Not available amoxicillin 875 mg-potassium clavulanate 125 mg tablet Active ? Not available Artificial Tears ([id number]) 1 %-0.2 Active ? Not available %-0.2 % eye drops Artificial Tears (polyvinyl alcohol) 1.4 % eye drops Active ? Not available aspirin 81 mg tablet,delayed release Active ? Not available TAKE 1 TABLET BY MOUTH AT BEDTIME azithromycin 250 mg tablet Active ? Not a vailable baclofen 10 mg tablet Active ? Not availa ble TAKE 1 TABLET BY MOUTH TWICE DAILY baclofen 20 mg tablet Active ? Not availa ble Banophen 25 mg capsule Active ? Not avail able budesonide 1 mg/2 mL suspension for nebulization Active ? Not available buspirone 5 mg tablet Active ? Not availa ble TAKE 1 TABLET BY MOUTH TWICE DAILY IN THE MORNING AND AT BEDTIM E cefuroxime axetil 500 mg tablet Active ? Not available celecoxib 50 mg capsule Active ? Not avai lable TAKE 1 CAPSULE BY MOUTH TWICE DAILY cephalexin 500 mg capsule Active ? Not av ailable chlordiazepoxide 25 mg capsule Active ? N ot available chlorthalidone 25 mg tablet Active ? Not available ciprofloxacin 500 mg tablet Active ? Not available clobetasol 0.05 % topical cream Active ? Not available cyclobenzaprine 10 mg tablet Completed ? diazepam 5 mg tablet Active ? Not availab le dicyclomine 10 mg capsule Active ? Not av ailable dicyclomine 20 mg tablet Active ? Not josh ilable TAKE 1 TABLET BY MOUTH FOUR TIMES DAILY NEEDED doxepin 50 mg capsule Active ? Not availa ble doxycycline hyclate 100 mg capsule Active ? Not available doxycycline hyclate 100 mg tablet Active ? Not available doxycycline monohydrate 100 mg capsule Active ? Not available Eliquis 5 mg tablet Active ? Not availabl e erythromycin 5 mg/gram (0.5 %) eye ointment Active ? Not available famotidine 20 mg tablet Active ? Not avai lable Fish Oil 340 mg-1,000 mg capsule Active ? Not available TAKE 1 CAPSULE BY MOUTH EVERY MORNING fluticasone 250 mcg-salmeterol 50 mcg/dose blistr powdr Active ? Not available for inhalation fluticasone propionate 50 mcg/actuation nasal spray,suspension A ctive ? Not available USE 1-2 SPRAYS IN EACH NOSTRIL ONCE DAILY NEEDED folic acid 1 mg tablet Active ? Not avail able TAKE 1 TABLET BY MOUTH EVERY EVENING FreeStyle Lite Strips Active ? Not availa ble TEST BLOOD SUGAR 4 TIMES A DAY furosemide 20 mg tablet Active ? Not avai lable furosemide 40 mg tablet Active ? Not avai lable gabapentin 300 mg capsule Active ? Not av ailable TAKE 2 CAPSULES BY MOUTH THREE TIMES DA GABBIE IN THE MORNING, AT NOON AND AT BEDTIME gabapentin 600 mg tablet Active ? Not josh ilable GenTeal Tears Mild 0.1 %-0.3 % eye drops Active ? Not available hydrocodone 5 mg-acetaminophen 300 mg tablet Active ? Not available hydrocodone 5 mg-acetaminophen 325 mg tablet Active ? Not available hydrocortisone 1 % topical cream Active ? Not available hydrocortisone 2.5 % topical cream Active ? Not available hydroxyzine HCl 50 mg tablet Active ? Not available ibuprofen 800 mg tablet Active ? Not avai lable Incruse Ellipta 62.5 mcg/actuation powder for inhalation Active ? Not available INHALE 1 PUFF EVERY DAY AT THE SAME TIME Jardiance 10 mg tablet Active ? Not avail able TAKE 1 TABLET BY MOUTH EVERY MORNING ketoconazole 2 % shampoo Active ? Not josh ilable Lantus Solostar U-100 Insulin 100 unit/mL (3 mL) Active ? Not available subcutaneous pen Lantus U-100 Insulin 100 unit/mL subcutaneous solution Active ? Not available INJECT 40 UNITS SUBCUTANEOUSLY AT BEDTIME DIRECTED levofloxacin 250 mg tablet Active ? Not a vailable levofloxacin 500 mg tablet Active ? Not a vailable lidocaine 5 % topical patch Active ? Not available lisinopril 10 mg tablet Active ? Not avai lable TAKE 1 TABLET BY MOUTH EVERY MORNING lisinopril 5 mg tablet Active ? Not avail able loperamide 2 mg capsule Active ? Not avai lable lorazepam 1 mg tablet Active ? Not availa ble loteprednol etabonate 0.5 % eye drops,suspension Active ? Not available INSTILL 1 DROP IN EACH EYE THREE TIMES DAILY magnesium 250 mg (as magnesium oxide) tablet Active ? Not available metoprolol tartrate 25 mg tablet Active ? Not available metronidazole 0.75 % topical gel Active ? Not available metronidazole 250 mg tablet Active ? Not available metronidazole 500 mg tablet Active ? Not available minocycline 100 mg capsule Active ? Not a vailable mirtazapine 15 mg tablet Active ? Not josh ilable mirtazapine 30 mg tablet Active ? Not josh ilable morphine ER 30 mg tablet,extended release Active ? Not available multivitamin tablet Active ? Not availabl e TAKE 1 TABLET BY MOUTH EVERY MORNING nabumetone 500 mg tablet Active ? Not ojsh ilable neomycin 3.5 mg/g-polymyxin B 10,000 unit/g-dexameth 0.1 Active ? Not available % eye oint nicotine 21 mg/24 hr daily transdermal patch Active ? Not available Novolog Flexpen U-100 Insulin aspart 100 unit/mL (3 mL) Active ? Not available subcutaneous Novolog U-100 Insulin aspart 100 unit/mL subcutaneous solution A ctive ? Not available INJECT 15 ML SUBCUTANEOUSLY THREE TIMES DAILY BEFORE MEALS omeprazole 20 mg capsule,delayed release Active ? Not available TAKE 1 CAPSULE BY MOUTH EVERY MORNING BEFORE A MEAL omeprazole 40 mg capsule,delayed release Active ? Not available TK 1 C PO QD ondansetron 4 mg disintegrating tablet Active ? Not available TK 1 T PO EVERY 6 HOURS NEEDED FOR NV ondansetron HCl 4 mg tablet Active ? Not available oxycodone 10 mg tablet Active ? Not avail able oxycodone 5 mg capsule Active ? Not avail able TAKE 1 CAPSULE BY MOUTH TWICE DAILY NEEDED FOR PAIN oxycodone 5 mg tablet Active ? Not availa ble oxycodone-acetaminophen 5 mg-325 mg tablet Active ? Not available peg 3350-electrolytes 236 gram-22.74 gram-6.74 gram-5.86 Active ? Not available gram solution prednisone 10 mg tablet Active ? Not avai lable prednisone 20 mg tablet Active ? Not avai lable prednisone 5 mg tablet Active ? Not avail able TAKE 8 TABLETS BY MOUTH DAY 1, TAKE 7 T ABLETS BY MOUTH DAY 2, TAKE 6 TABLETS BY MOUTH DAY 3, TAKE 5 TABLETS BY MOUTH DAY 4, TAKE 4 TABLETS B quetiapine 50 mg tablet Active ? Not avai lable TAKE 3 TABLETS BY MOUTH EVERY DAY AT BEDTIME Restasis 0.05 % eye drops in a dropperette Active ? Not available Restasis MultiDose 0.05 % eye drops Active ? Not available Robafen 100 mg/5 mL oral liquid Active ? Not available simvastatin 20 mg tablet Active ? Not josh ilable TAKE 1 TABLET BY MOUTH AT BEDTIME sucralfate 1 gram tablet Active ? Not josh ilable Sudogest 30 mg tablet Active ? Not availa ble Tab-A-Tiago tablet Active ? Not available tamsulosin 0.4 mg capsule Active ? Not av ailable thiamine HCl (vitamin B1) 100 mg tablet Active ? Not available TAKE 1 TABLET BY MOUTH EVERY EVENING tramadol 50 mg tablet Active ? Not availa ble trazodone 50 mg tablet Active ? Not avail able triamcinolone acetonide 0.1 % topical ointment Active ? Not available UltiCare Pen Needle 31 gauge x 09/22 Active ? Not available Ultravate 0.05 % lotion Active ? Not avai lable Virtussin AC 10 mg-100 mg/5 mL oral liquid Active ? Not available TAKE 10 ML BY MOUTH EVERY 4 TO 6 HOURS NEEDED FOR COUGH Xiidra 5 % eye drops in a dropperette Active ? Not available Problems Name Status Onset Date Source ? Type 2 Diabetes Mellitus Active 04/29/2016 ? Pain Active 04/29/2016 ? Onychogryphosis Active 09/01/2016 ? Pain in Toe Active 06/14/2019 ? Procedures Date Name Performed by ? ? Wrist Surgery Information not avai lable ? Shoulder Surgery Information not avai lable Results Lab Results None recorded. Past Encounters 10/31/2020 Onychogryphosis; Pain in Toe; Type 2 Dipika betes Mellitus Agustín Gomez DPM: [address] [facility] [address], [place] [address], Ph. Social History Tobacco Smoking Status Unknown If Ever Smoked Vaccine List Vaccine Type influenza, injectable, quadrivalent 01/13/2016 Plan of Care Reminders Provider Appointments None recorded. ? ? Lab None recorded. ? ? Referral None recorded. ? ? Procedures None recorded. ? ? Surgeries None recorded. ? ? Imaging None recorded. ? ? Vitals 07/29/2020 03:15PM ESTABLISHED PATIENT 15 Height Weight BMI Blood Pressure 5 ft 8 in 235 lbs 35.7 kg/m2 124/66 mm[Hg] 04/16/2020 01:30PM ESTABLISHED PATIENT 15 Height Weight BMI Blood Pressure 5 ft 8 in 235 lbs 35.7 kg/m2 120/62 mm[Hg] 11/13/2019 02:30PM ESTABLISHED PATIENT 15 Height Weight BMI 5 ft 8 in 235 lbs 35.7 kg/m2 06/14/2019 01:00PM ESTABLISHED PATIENT 15 Height Weight BMI 5 ft 8 in 235 lbs 35.7 kg/m2 02/14/2019 01:45PM ESTABLISHED PATIENT 15 Height Weight BMI 5 ft 8 in 235 lbs 35.7 kg/m2 11/04/2018 01:30PM ESTABLISHED PATIENT 15 Height Weight BMI 5 ft 8 in 235 lbs 35.7 kg/m2 05/26/2018 01:15PM ESTABLISHED PATIENT 15 Height Weight BMI 5 ft 8 in 235 lbs 35.7 kg/m2 12/22/2017 11:00AM ESTABLISHED PATIENT 15 Height Weight BMI 5 ft 8 in 235 lbs 35.7 kg/m2 08/05/2017 11:30AM ESTABLISHED PATIENT 15 Height Weight BMI 5 ft 8 in 235 lbs 35.7 kg/m2 05/26/2017 11:30AM ESTABLISHED PATIENT 15 Height Weight BMI Blood Pressure 5 ft 8 in 235 lbs 35.7 kg/m2 120/62 mm[Hg] 03/16/2017 11:30AM ESTABLISHED PATIENT 15 Height Weight BMI Blood Pressure 5 ft 8 in 235 lbs 35.7 kg/m2 122/60 mm[Hg] 01/12/2017 01:30PM ESTABLISHED PATIENT 15 Height Weight BMI Blood Pressure 5 ft 8 in 235 lbs 35.7 kg/m2 120/64 mm[Hg] 11/03/2016 02:15PM ESTABLISHED PATIENT 15 Height Weight BMI Blood Pressure 5 ft 8 in 235 lbs 35.7 kg/m2 118/62 mm[Hg] 09/01/2016 02:15PM FOLLOW UP 15 Height Weight BMI Blood Pressure 5 ft 8 in 235 lbs 35.7 kg/m2 122/64 mm[Hg] 06/24/2016 01:30PM FOLLOW UP 15 Height Weight BMI Blood Pressure 5 ft 8 in 235 lbs 35.7 kg/m2 132/78 mm[Hg] 05/13/2016 03:15PM FOLLOW UP 15 Height Weight BMI Blood Pressure 5 ft 8 in 235 lbs 35.7 kg/m2 124/68 mm[Hg] 04/29/2016 11:15AM FOLLOW UP 15 Height Weight BMI Blood Pressure 5 ft 8 in 235 lbs 35.7 kg/m2 124/68 mm[Hg]
--- OUTSIDE RECORDS SUMMARY | 2022-03-15 18:12 | XMS_ITS ---
:1955 Author Organization [facility] Address [address] [place] [address] Care Team Providers Name Role Phone RafaelRicky peoples Jr Unavailable Unavailable PROBLEMS Type Condition ICD9-CM [id number] Onset Condition SNOMED Cod e Code Code Dates Status Problem Gastroesophageal K21.9 Active 249 733834 reflux Problem Diverticulitis of K57.32 Active 11 7165461 colon ALLERGIES No Information ENCOUNTERS Encounter Location Date Diagnosis [facility] [address] [place], [place] [id number] Aug, 2 008 IMMUNIZATIONS No Known Immunizations SOCIAL HISTORY Never Assessed REASON FOR REFERRAL FUNCTIONAL STATUS PLAN OF CARE VITAL SIGNS MEDICATIONS Unknown Medications PROCEDURES No Known procedures RESULTS Name Result Date Reference Range Stool Culture 2021-07-26 CDiff Gene PCR 2021-07-26 CDiff Gene PCR NEGATIVE Negative REASON FOR VISIT Insurance Providers [facility] Health Member Patient Patient Patient Patient Patient Subscriber Subscriber Subscriber Group Insurance Plan Plan Plan Plan ID Relationship Address Phone Name Date of ID Name Date of No Type Insurance Insurance Insurance Coverage to Subscriber Address Phone Name Dates [employer] [phone] [employer] self ALEX[place] [id number] [employer] [place] [address] [place] [id number] MEDICARE [address] MEDICARE self [place]LEX[place] [id number] [id number] [facility] [address] MEDICAID [address] MEDICAID self [place] [id number] 20 [id number] OF [facility] [address] [facility] [address] [facility] [address]
--- OUTSIDE RECORDS SUMMARY | 2022-03-15 18:12 | XMS_ITS ---
:1955 Author Care Team Providers Name Role Phone LUDMILA VIEYRA 1ST FLOOR OTHER [phone] ROBERT GARCIA Primary Care Provider [phone] Allergies Code Code System Name Reaction Severity Status Onset NKDA ? Notes: pollen Medications Notes: med list reviewed, see mar for accuracy Problems Name Status Onset Date Source ? Type 2 Diabetes Mellitus Active 10/02/2020 ? Vitamin Deficiency Active 10/02/2020 ? Anxiety Active 10/02/2020 ? Essential Hypertension Active 10/02/2020 ? Chronic Obstructive Lung Disease Active 10/02/2020 ? Osteoarthritis Active 10/02/2020 ? At Risk for Falls Active 10/02/2020 ? Hyperlipidemia Active 10/07/2020 ? Procedures None recorded. Results Lab Results None recorded. Past Encounters 10/18/2020 Chronic Obstructive Lung Disease; Anxiet y; Essential Hypertension; Hyperlipidemia; Osteoarthritis; Type 2 Diabetes Mellitus; Vitamin Deficiency; At Risk for Falls Renuka Velázquez SUBSTANCE ABUSE CLINICIAN: [address] [facility] [place] [address], Ph. 10/15/2020 Chronic Obstructive Lung Disease; Anxiet y; Essential Hypertension; Hyperlipidemia; Osteoarthritis; Type 2 Diabetes Mellitus; Vitamin Deficiency; Gastroesophageal Reflux Disease without Esophagitis Sissy Rodriguez MD: [address] [facility] [place] [address], Ph. 10/14/2020 Chronic Obstructive Lung Disease; Osteoa rthritis Renuka Velázquez SUBSTANCE ABUSE CLINICIAN: [address] [facility] [place] [address], Ph. 10/12/2020 Chronic Obstructive Lung Disease; Anxiet y; Essential Hypertension; Hyperlipidemia; Osteoarthritis; Type 2 Diabetes Mellitus; Vitamin Deficiency; At Risk for Falls Chelsea Marshall SUBSTANCE ABUSE CLINICIAN: [address] [facility] [place] [address], Ph. 10/09/2020 Chronic Obstructive Lung Disease; Anxiet y; Essential Hypertension; Hyperlipidemia; Osteoarthritis; Type 2 Diabetes Mellitus; Vitamin Deficiency; At Risk for Falls Renuka Velázquez SUBSTANCE ABUSE CLINICIAN: [address] [place] [address], Ph. 10/07/2020 Chronic Obstructive Lung Disease; Anxiet y; Type 2 Diabetes Mellitus Renuka Velázquez NP: [address] [facility] [place] [address], Ph. 10/03/2020 Chronic Obstructive Lung Disease; Type 2 Diabetes Mellitus; Anxiety; Essential Hypertension; Osteoarthritis; Vitamin Deficiency; At Risk for Falls; Hyperlipidemia; Gastroesophageal Reflux Disease without Esophagitis Sissy Rodriguez MD: [address] [facility], [place] [address], Ph. 10/02/2020 Anxiety; Chronic Obstructive Lung Diseas e; Essential Hypertension; Osteoarthritis; Type 2 Diabetes Mellitus; Vitamin Deficiency; At Risk for Falls Renuka Velázquez SUBSTANCE ABUSE CLINICIAN: [address] [facility] , [place] [address], Ph. Social History Tobacco Smoking Status Former Smoker Vaccine List None recorded. Plan of Care Reminders Provider Appointments None recorded. ? ? Lab None recorded. ? ? Referral None recorded. ? ? Procedures None recorded. ? ? Surgeries None recorded. ? ? Imaging None recorded. ? ? Vitals 10/18/2020 11:24AM Discharge Summary Height Blood Pressure 5 ft 7 in 102/56 mm[Hg] 10/15/2020 12:48PM Admitting H&P Height Weight BMI Blood Pressure 5 ft 7 in 239.4 lbs 37.5 kg/m2 131/58 mm[Hg] 10/14/2020 11:13AM Acute Rounding Visit Height Blood Pressure 5 ft 7 in 102/47 mm[Hg] 10/12/2020 02:48PM Initial Intake Note Height Blood Pressure 5 ft 7 in 128/80 mm[Hg] 10/09/2020 08:08AM Discharge Summary Height Weight BMI Blood Pressure 5 ft 7 in 240.6 lbs 37.7 kg/m2 117/65 mm[Hg] 10/07/2020 11:06AM Acute Rounding Visit Height Blood Pressure 5 ft 7 in 108/65 mm[Hg] 10/03/2020 05:56PM Admitting H&P Height Weight BMI Blood Pressure 5 ft 7 in 240.6 lbs 37.7 kg/m2 133/79 mm[Hg] 10/02/2020 07:43AM Initial Intake Note Height Weight BMI Blood Pressure 5 ft 7 in 240.8 lbs 37.7 kg/m2 134/59 mm[Hg]
--- NOTE | 2022-03-15 18:39 | ECG_ITS ---
Test Reason : GENERAL MEDICAL Blood Pressure : / mmHG Vent. Rate : 089 BPM Atrial Rate : 089 BPM P-R Int : 170 ms QRS Dur : 098 ms QT Int : 356 ms P-R-T Axes : 072 -43 088 degrees QTc Int : 433 ms Normal sinus rhythm Left anterior fascicular block Intra-ventricular conduction delay Nonspecific T wave abnormality Lateral leads Abnormal ECG When compared with ECG of 06-OCT-2021 17:31, Questionable change in QRS duration Referred By: Benja Han Electronically Signed By:DUSTY VYAS MD
--- NOTE | 2022-03-15 18:43 | PC.NURSE ---
Patient has skin tears and scabbing in groin and anahy area. Provider aware
--- NOTE | 2022-03-15 19:00 | ED_ITS ---
HPI - General Adult General Chief complaint: Altered Mental Status <DARLINE Leiva - Last Filed: 03/16/22 02:29> Stated complaint: etoh/hyperglycemia <DARLINE Leiva - Last Filed: 03/16/22 02:29> Time Seen by Provider: 03/15/22 18:32 <DARLINE Leiva - Last Filed: 03/16/22 02:29> Source: patient <DARLINE Leiva - Last Filed: 03/16/22 02:29> Mode of arrival: ambulatory <DARLINE Leiva - Last Filed: 03/16/22 02:29> Limitations: no limitations <DARLINE Leiva Last Filed: 03/16/22 02:29> History of Present Illness HPI narrative: 66 yold male with past medical history of hyperkalemia, diverticulitis, abdominal cyst, aspiration pneumonia, hyponatremia, and was brought to the EMS for evaluation. Patient is not forthcoming. As per EMS report patient was found sitting in his recliner chair in [place] is. EMS report states patient house was dirty and feces everywhere. Friend went to his house and saw patient living in [place]. Patient himself denies any physical complaints besides rash on groin area. Friend claims patient is altered <DARLINE Leiva Last Filed: 03/16/22 02:29> Related Data Home medications: Home Medications Medication Instructions Recorded Confirmed albuterol sulfate 90 mcg/actuation 2 puff inhalation Q4H PRN Wheezing 12/29/20 12/11/21 aerosol inhaler blood sugar diagnostic (FreeStyle 12/29/20 12/11/21 Lite Strips) folic acid 1 mg tablet 1 tab PO DAILY@1700 12/29/20 12/11/21 simvastatin 20 mg tablet 1 tab PO BEDTIME 12/29/20 12/11/21 thiamine HCl (vitamin B1) 100 mg 1 tab PO BEDTIME 12/29/20 12/11/21 tablet aspirin 81 mg tablet,delayed 1 tab PO BEDTIME 02/04/21 12/11/21 release buspirone 5 mg tablet 5 mg PO BID 02/04/21 12/11/21 ramelteon 8 mg tablet 1 tab PO BEDTIME 05/12/21 12/11/21 tamsulosin 0.4 mg capsule 1 cap PO DAILY@1700 05/12/21 12/11/21 omeprazole 20 mg capsule,delayed 1 cap PO BID@0630,1630 06/01/21 12/11/21 release insulin glargine 100 unit/mL 45 unit subcut BEDTIME 06/24/21 12/11/21 subcutaneous solution (Lantus U-100 Insulin) insulin aspart U-100 100 unit/mL 1 sliding scale dose subcut TIDAC 07/21/21 12/11/21 (3 mL) subcutaneous pen (Novolog Flexpen U-100 Insulin aspart) celecoxib 50 mg capsule 1 cap PO BID 10/06/21 12/11/21 gabapentin 300 mg capsule 600 mg PO TID 10/06/21 12/11/21 multivitamin 1 tab PO QAM 12/11/21 12/11/21 omega-3 fatty acids-fish oil 340 1 cap PO QAM 12/11/21 12/11/21 mg-1,000 mg capsule (Fish Oil) Previous Rx's Medication Instructions Recorded acetaminophen 325 mg tablet 650 mg PO Q6H PRN pain #10 tabs 10/08/21 (Tylenol) <DARLINE Leiva - Last Filed: 03/16/22 02:29> Allergies/adverse reactions: Allergies Allergy/AdvReac Type Severity Reaction Status Date / Time ENVIRONMENTAL Allergy Mild SNEEZING, Uncoded 10/06/21 15:49 WATERY EYES <DARLINE Leiva - Last Filed: 03/16/22 02:29> Review of Systems Review of Systems: Living filth. Groin rash <DARLINE Leiva - Last Filed: 03/16/22 02:29> [facility] Past Medical History Medical History: Medical History Acute respiratory failure with hypoxia LAUREN (acute kidney injury) Alcohol abuse Anxiety Bilateral pleural effusion Contusion of rib on left side COPD (chronic obstructive pulmonary disease) Diabetes mellitus type 1 Diastolic dysfunction Diastolic heart failure Elevated troponin Fall HLD (hyperlipidemia) Hypertension Nonrheumatic aortic (valve) stenosis Obesity Pneumonia <DARLINE Leiva - Last Filed: 03/16/22 02:29> Surgical History: Surgical History H/O elbow surgery H/O shoulder surgery History of hydrocelectomy S/P TURP <DARLINE Leiva - Last Filed: 03/16/22 02:29> Family History Family History: Family History Father Diabetes Mother Diabetes <DARLINE Leiva - Last Filed: 03/16/22 02:29> Social History Social History: Social History Household Members: None Housing: Apartment Do you presently have visiting nurse or other home services: No Unable to assess alcohol history related to: Unable to respond Alcohol intake: current Alcohol intake frequency: 0-2 drinks per day Alcohol type: hard liquor Patient Tobacco Use Status: Current everyday Tobacco user Tobacco use type: Cigar e-Cigarette/Vaping Use: Currently Using Second Hand Smoke Exposure: No Advance Directives: Yes Advance Directives on File: Yes Advance Directives Date on File: 10/11/20 service: No Current occupational status: unemployed and disabled <DARLINE Leiva - Last Filed: 03/16/22 02:29> Physical Exam ED Vital Signs: Vital Signs - 24 hr 03/15/22 18:00 03/15/22 20:47 03/15/22 23:19 Temperature 98.2 F 98.2 F 98.4 F Pulse Rate 92 83 85 Respiratory Rate 16 16 16 Blood Pressure 128/64 127/69 106/68 Pulse Oximetry 96 93 97 Oxygen Delivery Method Room Air Room Air Nasal Cannula Oxygen Flow Rate 2 BMI result Body Mass Index 31.2 <DARLINE Leiva - Last Filed: 03/16/22 02:29> Vital Signs - 24 hr 03/15/22 18:00 03/15/22 20:47 03/15/22 23:19 Temperature 98.2 F 98.2 F 98.4 F Pulse Rate 92 83 85 Respiratory Rate 16 16 16 Blood Pressure 128/64 127/69 106/68 Pulse Oximetry 96 93 97 Oxygen Delivery Method Room Air Room Air Nasal Cannula Oxygen Flow Rate 2 BMI result Body Mass Index 31.2 <Chelsea Verduzco MD - Last Filed: 03/15/22 20:10> Const General: cooperative, healthy appearing, comfortable, no acute distress, well developed, alert, awake and Physically active <DARLINE Leiva Alden Last Filed: 03/16/22 02:29> Orientation/consciousness: patient oriented x3 <DARLINE Leiva Alden Filed: 03/16/22 02:29> HENMT Head: Yes normal to inspection, Yes No palpable skull fracture present, Yes normocephalic, Yes atraumatic and No abrasion <DARLINE Leiva Alden Filed: 03/16/22 02:29> Ears: hearing grossly normal bilaterally, external ears normal, TM's normal bilaterally, EAC's normal, mastoids normal and no periauricular adenopathy <DARLINE Leiva Alden Last Filed: 03/16/22 02:29> Eyes General: appearance normal, both eyes and all related structures <DARLINE Leiva Filed: 03/16/22 02:29> Neck Neck: Yes normal visual inspection, Yes full ROM, Yes no lymphadenopathy, Yes no meningeal signs, Yes trachea midline, Yes supple, No anterior neck swelling and No tender <DARLINE Leiva Filed: 03/16/22 02:29> Chest Chest palpation & inspection: normal inspection of the chest and normal palpation of entire chest wall <DARLINE Leiva Alden Filed: 03/16/22 02:29> Resp Effort & Inspection: normal respiratory effort and able to speak in complete sentences <DARLINE Leiva Alden Filed: 03/16/22 02:29> Auscultation: clear to auscultation bilaterally <DARLINE Leiva Alden Filed: 03/16/22 02:29> Cardio Jugular venous distension: no JVD <DARLINE Leiva Alden Filed: 03/16/22 02:29> Heart sounds: S1 normal heart sound present and S2 normal heart sound present <DARLINE Leiva Alden Filed: 03/16/22 02:29> GI Inspection: Yes normal to inspection and No abdominal wall ecchymosis <DARLINE Leiva Alden Filed: 03/16/22 02:29> Palpation (GI): Soft to palpation, not firm, nontender, no guarding and not rigid <DARLINE Leiva Last Filed: 03/16/22 02:29> Other: negative for any testicular tenderness <DARLINE Leiva Last Filed: 03/16/22 02:29> General: No CVA tenderness and Yes no CVA tenderness <DARLINE Leiva Last Filed: 03/16/22 02:29> Male genitals images: 1. Seems like a fungal rash with superimposed cellulitis. Raw looking. Positive tenderness on palpation 2. Seems like a fungal rash with superimposed cellulitis. Raw looking. tenderness on palpation 3. Seems like a fungal rash with superimposed her superimposed cellulitis. Raw looking. tenderness on palpation <DARLINE Leiva Last Filed: 03/16/22 02:29> Back/Spine/Pelvis Back: no CVA tenderness, No CVA tenderness and No back tenderness <DARLINE Leiva Last Filed: 03/16/22 02:29> Skin Other: fungal rash with erythema cellulitis <DARLINE Leiva Last Filed: 03/16/22 02:29> General skin exam: no rashes or lesions noted and elasticity normal <DARLINE Leiva Last Filed: 03/16/22 02:29> Neuro Other: Alert oriented x3. Negative for any neuro deficits. Patient giving snarky comments <DARLINE Leiva Last Filed: 03/16/22 02:29> General: patient oriented x3 and no meningeal signs <DARLINE Leiva Last Filed: 03/16/22 02:29> Extrem General: Yes normal to inspection and Yes full ROM <DARLINE Leiva Last Filed: 03/16/22 02:29> Psych Appearance: disheveled (filthy appearing) <DARLINE Leiva Last Filed: 03/16/22 02:29> Course Course Course Narrative: Vital signs stable. Will do labs to check for electrolyte deficiency. Unlikely having cardiac event due to age and risk factors we will do EKG and troponin. Blue for infections as is UA and chest x-ray. <DARLINE Leiva Last Filed: 03/16/22 02:29> Reevaluation(s) Reevaluation #1: Case was discussed with Dr. Arellano for possible Yulia gangrene. History physical exam were discussed with her and she was given a picture of patient's testicles and states patient does not appears as Yulia gangrene. Patient sent for CT scan which was negative for yulia gangrene. Chest CT scan abdominal CT scan negative for kidney stones or pneumonia. Head CT scan normal. ammonia normal white blood cell count normal. Patient hyponatremic. UA so probably small UTI. Case accepted by HOspitalist for admission scrotal cellulits/hyponatremia. Head CT scan normal. Two troponins negative. Patient is A0x3 <DARLINE Leiva - Last Filed: 03/16/22 02:29> Time: 02:20 <DARLINE Leiva - Last Filed: 03/16/22 02:29> Procedures EJ/Peripheral Line Arm R: Time Out Performed: No <Chelsea Verduzco MD - Last Filed: 03/15/22 20:10> Skin Cleansed in Sterile Fashion: Yes <Chelsea Verduzco MD - Last Filed: 03/15/22 20:10> Size (gauge): 18 <Chelsea Verduzco MD - Last Filed: 03/15/22 20:10> IV Secured and Dressing Applied: Yes <Chelsea Verduzco MD - Last Filed: 03/15/22 20:10> Patient Tolerated Procedure: well <Chelsea Verduzco MD - Last Filed: 03/15/22 20:10> Additional Comments: Ultrasound-guided <Chelsea Verduzco MD - Last Filed: 03/15/22 20:10> Medical Decision Making MDM Narrative Medical decision making narrative: Scrotal cellulitis. Hyponatremia <DARLINE Leiva - Last Filed: 03/16/22 02:29> Lab Data Result diagrams: : 03/15/22 20:14 03/16/22 01:03 <DARLINE Leiva - Last Filed: 03/16/22 02:29> Labs: Lab Results 03/15/22 03/15/22 03/15/22 Range/Units 18:01 20:14 20:14 WBC 9.8 (4.8-10.8) X10*3/uL RBC 4.58 L (4.60-5.80) X10*6/uL Hgb 13.7 L (14.0-18.0) g/dl Hct 38.8 L (42.0-52.0) % MCV 84.7 (80.0-98.0) fL MCH 29.9 (27.0-33.0) pg MCHC 35.3 (31.0-36.0) g/dl RDW 13.3 (11.0-16.0) % Plt Count 332 D (160-400) X10*3/uL MPV 8.4 L (9.4-12.4) fL Immature Gran % (Auto) 0.7 H (0.0-0.4) % Neut % (Auto) 67.3 (45-73) % Lymph % (Auto) 10.6 L (20-40) % [place] % (Auto) 17.1 H (2-11) % Eos % (Auto) 3.4 (0-4) % Baso % (Auto) 0.9 (0-2) % Lymph # (Auto) 1.0 L (1.2-4.9) X10*3/uL [place] # (Auto) 1.7 H (0.1-1.2) X10*3/uL Eos # (Auto) 0.3 (0.0-0.4) X10*3/uL Baso # (Auto) 0.1 (0.0-0.2) X10*3/uL Abs Immat Gran (auto) 0.07 H (0.00-0.03) X10*3/uL Absolute Neuts (auto) 6.6 (2.0-8.3) x10*3/uL Absolute Nucleated RBC 0.000 (0.0-0.012) X10*3/uL Nucleated RBC % (auto) 0.0 (0.0-0.2) /100WBC Smear Tech's Comments VERIFIED Sodium 127 L (135-145) mmol/L Potassium 3.3 D (3.3-5.1) mmol/L Chloride 78 L (96-108) mmol/L Carbon Dioxide 31 H (22-29) mmol/L Anion Gap 21 H (12-20) BUN 22 H D (9-16) mg/dL Creatinine 1.27 (0.5-1.4) mg/dL Estim Creat Clear Calc 63.4 Estimated GFR 57 POC Glucose 283 H (60-115) mg/dL Random Glucose 272 H D (60-115) mg/dL Lactic Acid (0.5-2.0) mmol/L Calcium 9.9 (8.4-10.2) mg/dL Magnesium 1.9 (1.6-2.6) mg/dL Total Bilirubin 0.6 (0.0-1.0) mg/dL AST 26 (5-37) U/L ALT 19 (0-40) U/L Alkaline Phosphatase 182 H (39-117) U/L Ammonia (13-55) umol/L Total Creatine Kinase 117 D (38-174) U/L Troponin I High Sens (<3.5-35.0) ng/L Total Protein 7.0 (6.5-8.0) g/dL Albumin 4.1 (3.5-5.0) g/dL Urine Color Urine Appearance Urine pH (5.0-9.0) Ur Specific [place] (1.005-1.025) Urine Protein (Neg-Trace) mg/dL Urine Glucose (UA) (Negative) mg/dL Urine Ketones (Negative) mg/dL Urine Blood (Negative) Urine Nitrite (Negative) Ur Leukocyte Esterase (Negative) Urine RBC (0-2) /HPF Urine WBC (0-5) /HPF Ur Squamous Epith Cells (0-2) /HPF Urine Bacteria (None Seen) Hyaline Casts (0-2) /LPF Urine Opiates Screen (Not Detect) Urine Fentanyl Screen (Not Detect) Ur Barbiturates Screen (Not Detect) Ur Phencyclidine Scrn (Not Detect) Ur Amphetamines Screen (Not Detect) U Benzodiazepines Scrn (Not Detect) Urine Cocaine Screen (Not Detect) U Marijuana (THC) Screen (Not Detect) Ethyl Alcohol < 10 mg/dL Acetone, Qual (Negative) Influenza Type A (PCR) (Negative) Influenza Type B (PCR) (Negative) RSV RNA Qual (PCR) (Negative) SARS-CoV-2 RNA (RT-PCR) (Negative) 03/15/22 03/15/22 03/15/22 Range/Units 20:14 20:14 20:14 WBC (4.8-10.8) X10*3/uL RBC (4.60-5.80) X10*6/uL Hgb (14.0-18.0) g/dl Hct (42.0-52.0) % MCV (80.0-98.0) fL MCH (27.0-33.0) pg MCHC (31.0-36.0) g/dl RDW (11.0-16.0) % Plt Count (160-400) X10*3/uL MPV (9.4-12.4) fL Immature Gran % (Auto) (0.0-0.4) % Neut % (Auto) (45-73) % Lymph % (Auto) (20-40) % [place] % (Auto) (2-11) % Eos % (Auto) (0-4) % Baso % (Auto) (0-2) % Lymph # (Auto) (1.2-4.9) X10*3/uL [place] # (Auto) (0.1-1.2) X10*3/uL Eos # (Auto) (0.0-0.4) X10*3/uL Baso # (Auto) (0.0-0.2) X10*3/uL Abs Immat Gran (auto) (0.00-0.03) X10*3/uL Absolute Neuts (auto) (2.0-8.3) x10*3/uL Absolute Nucleated RBC (0.0-0.012) X10*3/uL Nucleated RBC % (auto) (0.0-0.2) /100WBC Smear Tech's Comments Sodium (135-145) mmol/L Potassium (3.3-5.1) mmol/L Chloride (96-108) mmol/L Carbon Dioxide (22-29) mmol/L Anion Gap (12-20) BUN (9-16) mg/dL Creatinine (0.5-1.4) mg/dL Estim Creat Clear Calc Estimated GFR POC Glucose (60-115) mg/dL Random Glucose (60-115) mg/dL Lactic Acid 1.6 (0.5-2.0) mmol/L Calcium (8.4-10.2) mg/dL Magnesium (1.6-2.6) mg/dL Total Bilirubin (0.0-1.0) mg/dL AST (5-37) U/L ALT (0-40) U/L Alkaline Phosphatase (39-117) U/L Ammonia 27 (13-55) umol/L Total Creatine Kinase (38-174) U/L Troponin I High Sens 24.0 D (<3.5-35.0) ng/L Total Protein (6.5-8.0) g/dL Albumin (3.5-5.0) g/dL Urine Color Urine Appearance Urine pH (5.0-9.0) Ur Specific [place] (1.005-1.025) Urine Protein (Neg-Trace) mg/dL Urine Glucose (UA) (Negative) mg/dL Urine Ketones (Negative) mg/dL Urine Blood (Negative) Urine Nitrite (Negative) Ur Leukocyte Esterase (Negative) Urine RBC (0-2) /HPF Urine WBC (0-5) /HPF Ur Squamous Epith Cells (0-2) /HPF Urine Bacteria (None Seen) Hyaline Casts (0-2) /LPF Urine Opiates Screen (Not Detect) Urine Fentanyl Screen (Not Detect) Ur Barbiturates Screen (Not Detect) Ur Phencyclidine Scrn (Not Detect) Ur Amphetamines Screen (Not Detect) U Benzodiazepines Scrn (Not Detect) Urine Cocaine Screen (Not Detect) U Marijuana (THC) Screen (Not Detect) Ethyl Alcohol mg/dL Acetone, Qual (Negative) Influenza Type A (PCR) (Negative) Influenza Type B (PCR) (Negative) RSV RNA Qual (PCR) (Negative) SARS-CoV-2 RNA (RT-PCR) (Negative) 03/15/22 03/16/22 03/16/22 Range/Units 20:42 01:03 01:03 WBC (4.8-10.8) X10*3/uL RBC (4.60-5.80) X10*6/uL Hgb (14.0-18.0) g/dl Hct (42.0-52.0) % MCV (80.0-98.0) fL MCH (27.0-33.0) pg MCHC (31.0-36.0) g/dl RDW (11.0-16.0) % Plt Count (160-400) X10*3/uL MPV (9.4-12.4) fL Immature Gran % (Auto) (0.0-0.4) % Neut % (Auto) (45-73) % Lymph % (Auto) (20-40) % [place] % (Auto) (2-11) % Eos % (Auto) (0-4) % Baso % (Auto) (0-2) % Lymph # (Auto) (1.2-4.9) X10*3/uL [place] # (Auto) (0.1-1.2) X10*3/uL Eos # (Auto) (0.0-0.4) X10*3/uL Baso # (Auto) (0.0-0.2) X10*3/uL Abs Immat Gran (auto) (0.00-0.03) X10*3/uL Absolute Neuts (auto) (2.0-8.3) x10*3/uL Absolute Nucleated RBC (0.0-0.012) X10*3/uL Nucleated RBC % (auto) (0.0-0.2) /100WBC Smear Tech's Comments Sodium 126 L (135-145) mmol/L Potassium 3.5 (3.3-5.1) mmol/L Chloride 84 L (96-108) mmol/L Carbon Dioxide 23 (22-29) mmol/L Anion Gap 23 H (12-20) BUN 21 H (9-16) mg/dL Creatinine 1.05 (0.5-1.4) mg/dL Estim Creat Clear Calc 76.7 Estimated GFR > 60 POC Glucose (60-115) mg/dL Random Glucose 239 H (60-115) mg/dL Lactic Acid (0.5-2.0) mmol/L Calcium 8.6 D (8.4-10.2) mg/dL Magnesium (1.6-2.6) mg/dL Total Bilirubin 0.6 (0.0-1.0) mg/dL AST 24 (5-37) U/L ALT 16 (0-40) U/L Alkaline Phosphatase 160 H (39-117) U/L Ammonia (13-55) umol/L Total Creatine Kinase (38-174) U/L Troponin I High Sens (<3.5-35.0) ng/L Total Protein 6.4 L (6.5-8.0) g/dL Albumin 3.6 (3.5-5.0) g/dL Urine Color Urine Appearance Urine pH (5.0-9.0) Ur Specific [place] (1.005-1.025) Urine Protein (Neg-Trace) mg/dL Urine Glucose (UA) (Negative) mg/dL Urine Ketones (Negative) mg/dL Urine Blood (Negative) Urine Nitrite (Negative) Ur Leukocyte Esterase (Negative) Urine RBC (0-2) /HPF Urine WBC (0-5) /HPF Ur Squamous Epith Cells (0-2) /HPF Urine Bacteria (None Seen) Hyaline Casts (0-2) /LPF Urine Opiates Screen Not Detected (Not Detect) Urine Fentanyl Screen Not Detected (Not Detect) Ur Barbiturates Screen Not Detected (Not Detect) Ur Phencyclidine Scrn Not Detected (Not Detect) Ur Amphetamines Screen Not Detected (Not Detect) U Benzodiazepines Scrn Not Detected (Not Detect) Urine Cocaine Screen Not Detected (Not Detect) U Marijuana (THC) Screen Not Detected (Not Detect) Ethyl Alcohol mg/dL Acetone, Qual Small H (Negative) Influenza Type A (PCR) NEGATIVE (Negative) Influenza Type B (PCR) NEGATIVE (Negative) RSV RNA Qual (PCR) NEGATIVE (Negative) SARS-CoV-2 RNA (RT-PCR) NEGATIVE (Negative) 03/16/22 Range/Units 01:03 WBC (4.8-10.8) X10*3/uL RBC (4.60-5.80) X10*6/uL Hgb (14.0-18.0) g/dl Hct (42.0-52.0) % MCV (80.0-98.0) fL MCH (27.0-33.0) pg MCHC (31.0-36.0) g/dl RDW (11.0-16.0) % Plt Count (160-400) X10*3/uL MPV (9.4-12.4) fL Immature Gran % (Auto) (0.0-0.4) % Neut % (Auto) (45-73) % Lymph % (Auto) (20-40) % [place] % (Auto) (2-11) % Eos % (Auto) (0-4) % Baso % (Auto) (0-2) % Lymph # (Auto) (1.2-4.9) X10*3/uL [place] # (Auto) (0.1-1.2) X10*3/uL Eos # (Auto) (0.0-0.4) X10*3/uL Baso # (Auto) (0.0-0.2) X10*3/uL Abs Immat Gran (auto) (0.00-0.03) X10*3/uL Absolute Neuts (auto) (2.0-8.3) x10*3/uL Absolute Nucleated RBC (0.0-0.012) X10*3/uL Nucleated RBC % (auto) (0.0-0.2) /100WBC Smear Tech's Comments Sodium (135-145) mmol/L Potassium (3.3-5.1) mmol/L Chloride (96-108) mmol/L Carbon Dioxide (22-29) mmol/L Anion Gap (12-20) BUN (9-16) mg/dL Creatinine (0.5-1.4) mg/dL Estim Creat Clear Calc Estimated GFR POC Glucose (60-115) mg/dL Random Glucose (60-115) mg/dL Lactic Acid (0.5-2.0) mmol/L Calcium (8.4-10.2) mg/dL Magnesium (1.6-2.6) mg/dL Total Bilirubin (0.0-1.0) mg/dL AST (5-37) U/L ALT (0-40) U/L Alkaline Phosphatase (39-117) U/L Ammonia (13-55) umol/L Total Creatine Kinase (38-174) U/L Troponin I High Sens (<3.5-35.0) ng/L Total Protein (6.5-8.0) g/dL Albumin (3.5-5.0) g/dL Urine Color Yellow Urine Appearance Clear Urine pH 6.0 (5.0-9.0) Ur Specific [place] >= 1.030 H (1.005-1.025) Urine Protein 30 (1+) H (Neg-Trace) mg/dL Urine Glucose (UA) 500 H (Negative) mg/dL Urine Ketones 15 (Negative) mg/dL Urine Blood Negative (Negative) Urine Nitrite Negative (Negative) Ur Leukocyte Esterase Moderate (2+) H (Negative) Urine RBC 3-5 H (0-2) /HPF Urine WBC 0-5 (0-5) /HPF Ur Squamous Epith Cells 3-5 (0-2) /HPF Urine Bacteria Trace (None Seen) Hyaline Casts 3-5 (0-2) /LPF Urine Opiates Screen (Not Detect) Urine Fentanyl Screen (Not Detect) Ur Barbiturates Screen (Not Detect) Ur Phencyclidine Scrn (Not Detect) Ur Amphetamines Screen (Not Detect) U Benzodiazepines Scrn (Not Detect) Urine Cocaine Screen (Not Detect) U Marijuana (THC) Screen (Not Detect) Ethyl Alcohol mg/dL Acetone, Qual (Negative) Influenza Type A (PCR) (Negative) Influenza Type B (PCR) (Negative) RSV RNA Qual (PCR) (Negative) SARS-CoV-2 RNA (RT-PCR) (Negative) <DARLINE Leiva - Last Filed: 03/16/22 02:29> Lab Results 03/15/22 03/15/22 03/15/22 Range/Units 18:01 20:14 20:14 WBC 9.8 (4.8-10.8) X10*3/uL RBC 4.58 L (4.60-5.80) X10*6/uL Hgb 13.7 L (14.0-18.0) g/dl Hct 38.8 L (42.0-52.0) % MCV 84.7 (80.0-98.0) fL MCH 29.9 (27.0-33.0) pg MCHC 35.3 (31.0-36.0) g/dl RDW 13.3 (11.0-16.0) % Plt Count 332 D (160-400) X10*3/uL MPV 8.4 L (9.4-12.4) fL Immature Gran % (Auto) 0.7 H (0.0-0.4) % Neut % (Auto) 67.3 (45-73) % Lymph % (Auto) 10.6 L (20-40) % [place] % (Auto) 17.1 H (2-11) % Eos % (Auto) 3.4 (0-4) % Baso % (Auto) 0.9 (0-2) % Lymph # (Auto) 1.0 L (1.2-4.9) X10*3/uL [place] # (Auto) 1.7 H (0.1-1.2) X10*3/uL Eos # (Auto) 0.3 (0.0-0.4) X10*3/uL Baso # (Auto) 0.1 (0.0-0.2) X10*3/uL Abs Immat Gran (auto) 0.07 H (0.00-0.03) X10*3/uL Absolute Neuts (auto) 6.6 (2.0-8.3) x10*3/uL Absolute Nucleated RBC 0.000 (0.0-0.012) X10*3/uL Nucleated RBC % (auto) 0.0 (0.0-0.2) /100WBC Smear Tech's Comments VERIFIED Sodium 127 L (135-145) mmol/L Potassium 3.3 D (3.3-5.1) mmol/L Chloride 78 L (96-108) mmol/L Carbon Dioxide 31 H (22-29) mmol/L Anion Gap 21 H (12-20) BUN 22 H D (9-16) mg/dL Creatinine 1.27 (0.5-1.4) mg/dL Estim Creat Clear Calc 63.4 Estimated GFR 57 POC Glucose 283 H (60-115) mg/dL Random Glucose 272 H D (60-115) mg/dL Lactic Acid (0.5-2.0) mmol/L Calcium 9.9 (8.4-10.2) mg/dL Magnesium 1.9 (1.6-2.6) mg/dL Total Bilirubin 0.6 (0.0-1.0) mg/dL AST 26 (5-37) U/L ALT 19 (0-40) U/L Alkaline Phosphatase 182 H (39-117) U/L Ammonia (13-55) umol/L Total Creatine Kinase 117 D (38-174) U/L Troponin I High Sens (<3.5-35.0) ng/L Total Protein 7.0 (6.5-8.0) g/dL Albumin 4.1 (3.5-5.0) g/dL Urine Color Urine Appearance Urine pH (5.0-9.0) Ur Specific [place] (1.005-1.025) Urine Protein (Neg-Trace) mg/dL Urine Glucose (UA) (Negative) mg/dL Urine Ketones (Negative) mg/dL Urine Blood (Negative) Urine Nitrite (Negative) Ur Leukocyte Esterase (Negative) Urine RBC (0-2) /HPF Urine WBC (0-5) /HPF Ur Squamous Epith Cells (0-2) /HPF Urine Bacteria (None Seen) Hyaline Casts (0-2) /LPF Urine Opiates Screen (Not Detect) Urine Fentanyl Screen (Not Detect) Ur Barbiturates Screen (Not Detect) Ur Phencyclidine Scrn (Not Detect) Ur Amphetamines Screen (Not Detect) U Benzodiazepines Scrn (Not Detect) Urine Cocaine Screen (Not Detect) U Marijuana (THC) Screen (Not Detect) Ethyl Alcohol < 10 mg/dL Acetone, Qual (Negative) Influenza Type A (PCR) (Negative) Influenza Type B (PCR) (Negative) RSV RNA Qual (PCR) (Negative) SARS-CoV-2 RNA (RT-PCR) (Negative) 03/15/22 03/15/22 03/15/22 Range/Units 20:14 20:14 20:14 WBC (4.8-10.8) X10*3/uL RBC (4.60-5.80) X10*6/uL Hgb (14.0-18.0) g/dl Hct (42.0-52.0) % MCV (80.0-98.0) fL MCH (27.0-33.0) pg MCHC (31.0-36.0) g/dl RDW (11.0-16.0) % Plt Count (160-400) X10*3/uL MPV (9.4-12.4) fL Immature Gran % (Auto) (0.0-0.4) % Neut % (Auto) (45-73) % Lymph % (Auto) (20-40) % [place] % (Auto) (2-11) % Eos % (Auto) (0-4) % Baso % (Auto) (0-2) % Lymph # (Auto) (1.2-4.9) X10*3/uL [place] # (Auto) (0.1-1.2) X10*3/uL Eos # (Auto) (0.0-0.4) X10*3/uL Baso # (Auto) (0.0-0.2) X10*3/uL Abs Immat Gran (auto) (0.00-0.03) X10*3/uL Absolute Neuts (auto) (2.0-8.3) x10*3/uL Absolute Nucleated RBC (0.0-0.012) X10*3/uL Nucleated RBC % (auto) (0.0-0.2) /100WBC Smear Tech's Comments Sodium (135-145) mmol/L Potassium (3.3-5.1) mmol/L Chloride (96-108) mmol/L Carbon Dioxide (22-29) mmol/L Anion Gap (12-20) BUN (9-16) mg/dL Creatinine (0.5-1.4) mg/dL Estim Creat Clear Calc Estimated GFR POC Glucose (60-115) mg/dL Random Glucose (60-115) mg/dL Lactic Acid 1.6 (0.5-2.0) mmol/L Calcium (8.4-10.2) mg/dL Magnesium (1.6-2.6) mg/dL Total Bilirubin (0.0-1.0) mg/dL AST (5-37) U/L ALT (0-40) U/L Alkaline Phosphatase (39-117) U/L Ammonia 27 (13-55) umol/L Total Creatine Kinase (38-174) U/L Troponin I High Sens 24.0 D (<3.5-35.0) ng/L Total Protein (6.5-8.0) g/dL Albumin (3.5-5.0) g/dL Urine Color Urine Appearance Urine pH (5.0-9.0) Ur Specific [place] (1.005-1.025) Urine Protein (Neg-Trace) mg/dL Urine Glucose (UA) (Negative) mg/dL Urine Ketones (Negative) mg/dL Urine Blood (Negative) Urine Nitrite (Negative) Ur Leukocyte Esterase (Negative) Urine RBC (0-2) /HPF Urine WBC (0-5) /HPF Ur Squamous Epith Cells (0-2) /HPF Urine Bacteria (None Seen) Hyaline Casts (0-2) /LPF Urine Opiates Screen (Not Detect) Urine Fentanyl Screen (Not Detect) Ur Barbiturates Screen (Not Detect) Ur Phencyclidine Scrn (Not Detect) Ur Amphetamines Screen (Not Detect) U Benzodiazepines Scrn (Not Detect) Urine Cocaine Screen (Not Detect) U Marijuana (THC) Screen (Not Detect) Ethyl Alcohol mg/dL Acetone, Qual (Negative) Influenza Type A (PCR) (Negative) Influenza Type B (PCR) (Negative) RSV RNA Qual (PCR) (Negative) SARS-CoV-2 RNA (RT-PCR) (Negative) 03/15/22 03/16/22 03/16/22 Range/Units 20:42 01:03 01:03 WBC (4.8-10.8) X10*3/uL RBC (4.60-5.80) X10*6/uL Hgb (14.0-18.0) g/dl Hct (42.0-52.0) % MCV (80.0-98.0) fL MCH (27.0-33.0) pg MCHC (31.0-36.0) g/dl RDW (11.0-16.0) % Plt Count (160-400) X10*3/uL MPV (9.4-12.4) fL Immature Gran % (Auto) (0.0-0.4) % Neut % (Auto) (45-73) % Lymph % (Auto) (20-40) % [place] % (Auto) (2-11) % Eos % (Auto) (0-4) % Baso % (Auto) (0-2) % Lymph # (Auto) (1.2-4.9) X10*3/uL [place] # (Auto) (0.1-1.2) X10*3/uL Eos # (Auto) (0.0-0.4) X10*3/uL Baso # (Auto) (0.0-0.2) X10*3/uL Abs Immat Gran (auto) (0.00-0.03) X10*3/uL Absolute Neuts (auto) (2.0-8.3) x10*3/uL Absolute Nucleated RBC (0.0-0.012) X10*3/uL Nucleated RBC % (auto) (0.0-0.2) /100WBC Smear Tech's Comments Sodium 126 L (135-145) mmol/L Potassium 3.5 (3.3-5.1) mmol/L Chloride 84 L (96-108) mmol/L Carbon Dioxide 23 (22-29) mmol/L Anion Gap 23 H (12-20) BUN 21 H (9-16) mg/dL Creatinine 1.05 (0.5-1.4) mg/dL Estim Creat Clear Calc 76.7 Estimated GFR > 60 POC Glucose (60-115) mg/dL Random Glucose 239 H (60-115) mg/dL Lactic Acid (0.5-2.0) mmol/L Calcium 8.6 D (8.4-10.2) mg/dL Magnesium (1.6-2.6) mg/dL Total Bilirubin 0.6 (0.0-1.0) mg/dL AST 24 (5-37) U/L ALT 16 (0-40) U/L Alkaline Phosphatase 160 H (39-117) U/L Ammonia (13-55) umol/L Total Creatine Kinase (38-174) U/L Troponin I High Sens (<3.5-35.0) ng/L Total Protein 6.4 L (6.5-8.0) g/dL Albumin 3.6 (3.5-5.0) g/dL Urine Color Urine Appearance Urine pH (5.0-9.0) Ur Specific [place] (1.005-1.025) Urine Protein (Neg-Trace) mg/dL Urine Glucose (UA) (Negative) mg/dL Urine Ketones (Negative) mg/dL Urine Blood (Negative) Urine Nitrite (Negative) Ur Leukocyte Esterase (Negative) Urine RBC (0-2) /HPF Urine WBC (0-5) /HPF Ur Squamous Epith Cells (0-2) /HPF Urine Bacteria (None Seen) Hyaline Casts (0-2) /LPF Urine Opiates Screen Not Detected (Not Detect) Urine Fentanyl Screen Not Detected (Not Detect) Ur Barbiturates Screen Not Detected (Not Detect) Ur Phencyclidine Scrn Not Detected (Not Detect) Ur Amphetamines Screen Not Detected (Not Detect) U Benzodiazepines Scrn Not Detected (Not Detect) Urine Cocaine Screen Not Detected (Not Detect) U Marijuana (THC) Screen Not Detected (Not Detect) Ethyl Alcohol mg/dL Acetone, Qual Small H (Negative) Influenza Type A (PCR) NEGATIVE (Negative) Influenza Type B (PCR) NEGATIVE (Negative) RSV RNA Qual (PCR) NEGATIVE (Negative) SARS-CoV-2 RNA (RT-PCR) NEGATIVE (Negative) 03/16/22 Range/Units 01:03 WBC (4.8-10.8) X10*3/uL RBC (4.60-5.80) X10*6/uL Hgb (14.0-18.0) g/dl Hct (42.0-52.0) % MCV (80.0-98.0) fL MCH (27.0-33.0) pg MCHC (31.0-36.0) g/dl RDW (11.0-16.0) % Plt Count (160-400) X10*3/uL MPV (9.4-12.4) fL Immature Gran % (Auto) (0.0-0.4) % Neut % (Auto) (45-73) % Lymph % (Auto) (20-40) % [place] % (Auto) (2-11) % Eos % (Auto) (0-4) % Baso % (Auto) (0-2) % Lymph # (Auto) (1.2-4.9) X10*3/uL [place] # (Auto) (0.1-1.2) X10*3/uL Eos # (Auto) (0.0-0.4) X10*3/uL Baso # (Auto) (0.0-0.2) X10*3/uL Abs Immat Gran (auto) (0.00-0.03) X10*3/uL Absolute Neuts (auto) (2.0-8.3) x10*3/uL Absolute Nucleated RBC (0.0-0.012) X10*3/uL Nucleated RBC % (auto) (0.0-0.2) /100WBC Smear Tech's Comments Sodium (135-145) mmol/L Potassium (3.3-5.1) mmol/L Chloride (96-108) mmol/L Carbon Dioxide (22-29) mmol/L Anion Gap (12-20) BUN (9-16) mg/dL Creatinine (0.5-1.4) mg/dL Estim Creat Clear Calc Estimated GFR POC Glucose (60-115) mg/dL Random Glucose (60-115) mg/dL Lactic Acid (0.5-2.0) mmol/L Calcium (8.4-10.2) mg/dL Magnesium (1.6-2.6) mg/dL Total Bilirubin (0.0-1.0) mg/dL AST (5-37) U/L ALT (0-40) U/L Alkaline Phosphatase (39-117) U/L Ammonia (13-55) umol/L Total Creatine Kinase (38-174) U/L Troponin I High Sens (<3.5-35.0) ng/L Total Protein (6.5-8.0) g/dL Albumin (3.5-5.0) g/dL Urine Color Yellow Urine Appearance Clear Urine pH 6.0 (5.0-9.0) Ur Specific [place] >= 1.030 H (1.005-1.025) Urine Protein 30 (1+) H (Neg-Trace) mg/dL Urine Glucose (UA) 500 H (Negative) mg/dL Urine Ketones 15 (Negative) mg/dL Urine Blood Negative (Negative) Urine Nitrite Negative (Negative) Ur Leukocyte Esterase Moderate (2+) H (Negative) Urine RBC 3-5 H (0-2) /HPF Urine WBC 0-5 (0-5) /HPF Ur Squamous Epith Cells 3-5 (0-2) /HPF Urine Bacteria Trace (None Seen) Hyaline Casts 3-5 (0-2) /LPF Urine Opiates Screen (Not Detect) Urine Fentanyl Screen (Not Detect) Ur Barbiturates Screen (Not Detect) Ur Phencyclidine Scrn (Not Detect) Ur Amphetamines Screen (Not Detect) U Benzodiazepines Scrn (Not Detect) Urine Cocaine Screen (Not Detect) U Marijuana (THC) Screen (Not Detect) Ethyl Alcohol mg/dL Acetone, Qual (Negative) Influenza Type A (PCR) (Negative) Influenza Type B (PCR) (Negative) RSV RNA Qual (PCR) (Negative) SARS-CoV-2 RNA (RT-PCR) (Negative) <Chelsea Verduzco MD - Last Filed: 03/15/22 20:10> ECG Data Interpretation: Normal sinus rhythm. Ventricular rate 89. Pr interval 170. QRS 98. QTC 433. Negative STEMI <DARLINE Leiva - Last Filed: 03/16/22 02:29> Discharge Plan Discharge Clinical Impression: Cellulitis, scrotum, Acute hyponatremia <DARLINE Leiva - Last Filed: 03/16/22 02:29> Patient Disposition: Admitted As Inpatient <DARLINE Leiva - Last Filed: 03/16/22 02:29>
--- NOTE | 2022-03-15 19:47 | PC.NURSE ---
iv line and labs attempted x2 by previous RN. this RN assumed care of patient at 1900. provider DARLINE Yousif in room attempting ultra sound guided iv and to obtain labs. pt extremely difficult stick. patient has very red and inflamed anahy groin area. needs CT scan. will continue to monitor and attempt to obtain lab work
[2022-03-15 20:27] LABS: Basophils Absolute Auto 0.1 X10*3/uL (0.0-0.2); Basophils Percent Auto 0.9 % (0-2); Eosinophils Absolute Auto 0.3 X10*3/uL (0.0-0.4); Eosinophils Percent Auto 3.4 % (0-4); Hematocrit 38.8 % (42.0-52.0); Hemoglobin 13.7 g/dl (14.0-18.0); Imm Gran Abs Auto 0.07 X10*3/uL (0.00-0.03); Imm Gran Pct Auto 0.7 % (0.0-0.4); Lymphocytes Percent Auto 10.6 % (20-40); MANUAL DIFF FLAG SCAN; Mean Corpuscular HGB Conc 35.3 g/dl (31.0-36.0); Mean Corpuscular Hemoglobin 29.9 pg (27.0-33.0); Mean Corpuscular Volume 84.7 fL (80.0-98.0); Mean Platelet Volume 8.4 fL (9.4-12.4); Monocytes Absolute Auto 1.7 X10*3/uL (0.1-1.2); Monocytes Percent Auto 17.1 % (2-11); Neutrophils Absolute Auto 6.6 x10*3/uL (2.0-8.3); Neutrophils Percent Auto 67.3 % (45-73); Platelet Count 332 X10*3/uL (160-400); Red Blood Count 4.58 X10*6/uL (4.60-5.80); Red Cell Distribution Width 13.3 % (11.0-16.0); SCAN SMEAR FLAG 1; White Blood Count 9.8 X10*3/uL (4.8-10.8)
[2022-03-15 20:46] LABS: Ammonia 27 umol/L (13-55)
[2022-03-15 20:47] VITALS: BP 127/69; PULSE 83; RESP 16; TEMP 36.8; O2SAT 93
[2022-03-15 20:50] LABS: Lactic Acid 1.6 mmol/L (0.5-2.0)
[2022-03-15 20:57] LABS: Alanine Aminotransferase 19 U/L (0-40); Albumin Level 4.1 g/dL (3.5-5.0); Alkaline Phosphatase 182 U/L (39-117); Anion Gap 21 (12-20); Aspartate Amino Transferase 26 U/L (5-37); Bilirubin Total 0.6 mg/dL (0.0-1.0); Blood Urea Nitrogen 22 mg/dL (9-16); Calcium 9.9 mg/dL (8.4-10.2); Carbon Dioxide 31 mmol/L (22-29); Chloride 78 mmol/L (96-108); Creatinine Clr Calc Pharmacy 63.4; Estimated Glomerular Filt Rate 57; Ethanol < 10 mg/dL; Glucose Random 272 mg/dL (60-115); Magnesium 1.9 mg/dL (1.6-2.6); Potassium 3.3 mmol/L (3.3-5.1); Sodium 127 mmol/L (135-145)
[2022-03-15 21:05] LABS: SLIDE REVIEW VERIFIED
[2022-03-15] MEDS: 0.9 % Sodium Chloride 1,000 ML 999 ML IV ×3 (21:05→23:48)
[2022-03-15] MEDS: Piperacillin Sodium/Tazobactam 3.375 GM in 0.9 % Sodium Chloride 50 ML IV (21:05)
[2022-03-15 21:24] LABS: Influenza A PCR NEGATIVE (Negative); Influenza B PCR NEGATIVE (Negative); Resp Syncy Virus RNA Qual PCR NEGATIVE (Negative); SARS COV2 PCR INHOUSE NEGATIVE (Negative)
[2022-03-15] MEDS: iohexoL 350 MG/ML 100 ML INFUS..BTL IV (21:36)
--- NOTE | 2022-03-15 21:41 | PC.NURSE ---
pt placed on 2L O2 NC for sats down to 88-90%. patient states he normally wears 2 liters at home at baseline
[2022-03-15 23:19] VITALS: BP 106/68; PULSE 85; RESP 16; TEMP 36.9; O2SAT 97
[2022-03-16 01:14] LABS: Appearance Urine Clear; Color Urine Yellow; Glucose Urine UA 500 mg/dL (Negative); Leukocyte Esterase Urine Moderate (2+) (Negative); Nitrite Urine Negative (Negative); Specific Gravity - Urine >= 1.030 (1.005-1.025); UMIC TRIGGER UACC YES; Urine Blood Negative (Negative); Urine Ketones 15 mg/dL (Negative); Urine Protein 30 (1+) mg/dL (Neg-Trace)
[2022-03-16 01:27] LABS: Bacteria Urine Trace (None Seen); WBC Urine 0-5 /HPF (0-5)
[2022-03-16 01:31] LABS: Amphetamine Screen Urine Not Detected (Not Detect); Barbiturates, Urine Not Detected (Not Detect); Benzodiazepines Screen Urine Not Detected (Not Detect); Cannabinoid Screen Urine Not Detected (Not Detect); Cocaine Screen Urine Not Detected (Not Detect); Fentanyl, urine Not Detected (Not Detect); Opiate Screen Urine Not Detected (Not Detect); Phencyclidine Screen Urine Not Detected (Not Detect)
[2022-03-16 01:39] LABS: Alanine Aminotransferase 16 U/L (0-40); Albumin Level 3.6 g/dL (3.5-5.0); Alkaline Phosphatase 160 U/L (39-117); Anion Gap 23 (12-20); Aspartate Amino Transferase 24 U/L (5-37); Bilirubin Total 0.6 mg/dL (0.0-1.0); Blood Urea Nitrogen 21 mg/dL (9-16); Calcium 8.6 mg/dL (8.4-10.2); Carbon Dioxide 23 mmol/L (22-29); Chloride 84 mmol/L (96-108); Creatinine Clr Calc Pharmacy 76.7; Estimated Glomerular Filt Rate > 60; Glucose Random 239 mg/dL (60-115); Potassium 3.5 mmol/L (3.3-5.1); Sodium 126 mmol/L (135-145); Total Protein 6.4 g/dL (6.5-8.0)
[2022-03-16 01:46] LABS: Acetone, serum QL Small (Negative)
[2022-03-16 02:40] VITALS: BP 115/58; PULSE 85; RESP 14; TEMP 36.8; O2SAT 97
[2022-03-16 03:01] LABS: Troponin-I High Sensitivity 19.9 ng/L (<3.5-35.0)
[2022-03-16] MEDS: Insulin Regular, Human 100 UNIT/ML 3 ML VIAL IVPUSH (03:54)
[2022-03-16 04:14] LABS: VBG Base Excess 7.5 mmol/L; VBG HCO3 31 mmol/L (22-26); VBG pCO2 41 mmHg; VBG pH 7.49 (7.32-7.43); VBG pO2 84 mmHg
[2022-03-16 04:14] LABS: Venous Blood Gas Refer to POC result
[2022-03-16 04:22] LABS: Lactic Acid 0.9 mmol/L (0.5-2.0)
[2022-03-16 04:29] LABS: Alanine Aminotransferase 15 U/L (0-40); Albumin Level 3.4 g/dL (3.5-5.0); Alkaline Phosphatase 149 U/L (39-117); Anion Gap 19 (12-20); Aspartate Amino Transferase 22 U/L (5-37); Bilirubin Total 0.5 mg/dL (0.0-1.0); Blood Urea Nitrogen 18 mg/dL (9-16); Calcium 8.1 mg/dL (8.4-10.2); Carbon Dioxide 24 mmol/L (22-29); Chloride 87 mmol/L (96-108); Creatinine Clr Calc Pharmacy 81.3; Estimated Glomerular Filt Rate > 60; Glucose Random 228 mg/dL (60-115); Potassium 3.2 mmol/L (3.3-5.1); Sodium 127 mmol/L (135-145); Total Protein 5.9 g/dL (6.5-8.0)
--- NOTE | 2022-03-16 05:45 | PC.NURSE ---
pt cleaned, linens changed anahy area cleaning done, barrier cream applied. groin area extremely red and raw and painful to patient. patient also incontinent of urine making the irritated area worse. mccann catheter placed by this RNs request, MD Brooks OK'ed. patient more comfortably. call watters within reach
[2022-03-16 08:27] VITALS: BP 107/62; PULSE 82; RESP 16; TEMP 36.6; O2SAT 99
[2022-03-16 08:38] LABS: Glucose, Whole Blood 199 mg/dL (60-115)
--- NOTE | 2022-03-16 08:50 | PHA.MEDREC ---
Pharmacy Consult ? Medication Reconciliation Pharmacy has completed the medication reconciliation. Med rec completed based on recent claim history and most recent discharge. Patient states nothing changed and he is not able to help in this mood . I did ask when his last dose of meds was and he says it was probably yesterday.
--- NOTE | 2022-03-16 10:36 | PC.NURSE ---
pt reports fear that his catheter is leaking - assessment of the area - pts skin red and raw with some breakdown to the skin on his inner thighs. mccann catheter intact and patent. pt with 22G IV in the RAC. c/o pain tp the groin area. Dr. amanda down to see pt.
--- NOTE | 2022-03-16 11:11 | PM.IMHP ---
History of Present Illness Date of Service: 03/16/22 Chief Complaint: EMS called by friend The patient is a 66 year old M with a PMH of alcohol abuse, anxiety, copd, DM, chronic HFpEF, HLD, HTN, obesity who presents to the ED after paramedics were called in by a friend. The patient is not very forthcoming with his history and states he noticed a groin/scrotal rash for about the last 1 week. He denies any fever or chills. Does not answer questions regarding his alcohol intake recently. He states he just wants his rash to be treated. He denies any current chest pain, shortness of breath or cough. In the ED, the patient was noted to be hyponatremic and in milld DKA. He was treated with IV insulin and IV fluids. Evaluation of his rash including a CT scan and surgical consult for concern over yulia's gangrene. THe patients CT scan is negative for evidence of yulia's. He was given a of IV zosyn and will be now admitted for further care. Review of Systems Review of Systems: negative except HPI [facility] Medical History Acute respiratory failure with hypoxia LAUREN (acute kidney injury) Alcohol abuse Anxiety Bilateral pleural effusion Contusion of rib on left side COPD (chronic obstructive pulmonary disease) Diabetes mellitus type 1 Diastolic dysfunction Diastolic heart failure Elevated troponin Fall HLD (hyperlipidemia) Hypertension Nonrheumatic aortic (valve) stenosis Obesity Pneumonia Family History Father Diabetes Mother Diabetes Surgical History H/O elbow surgery H/O shoulder surgery History of hydrocelectomy S/P TURP Social History Household Members: None Housing: Apartment Do you presently have visiting nurse or other home services: No Unable to assess alcohol history related to: Unable to respond Alcohol intake: current Alcohol intake frequency: 0-2 drinks per day Alcohol type: hard liquor Patient Tobacco Use Status: Current everyday Tobacco user Tobacco use type: Cigar e-Cigarette/Vaping Use: Currently Using Second Hand Smoke Exposure: No Advance Directives: Yes Advance Directives on File: Yes Advance Directives Date on File: 10/11/20 service: No Current occupational status: unemployed and disabled Meds Allergies Allergy/AdvReac Type Severity Reaction Status Date / Time ENVIRONMENTAL Allergy Mild SNEEZING, Uncoded 10/06/21 15:49 WATERY EYES Active Medications: Current Medications Acetaminophen (Acetaminophen 325 Mg Tablet) 650 mg PO Q6H PRN PRN Reason: Pain, Mild (Pain Scale 1-3) Enoxaparin Sodium (Enoxaparin Sodium 40 Mg/0.4 Ml Syringe) 40 mg SUBCUT Q24H JOURDAN Nystatin (Nystatin Powder 15 Gm Bottle) 1 appl TOPICAL BID JOURDAN; Protocol Ondansetron HCl (Ondansetron Hcl 4 Mg/2 Ml Vial) 4 mg IVPUSH Q8H PRN PRN Reason: Nausea and Vomiting Sodium Chloride (0.9 % Sodium Chloride Flush 3 Ml Syringe) 3 ml IVFLUSH QSHIFT JOURDAN Home Medications Medication Instructions Recorded Confirmed Last Taken Type albuterol sulfate 90 mcg/actuation 2 puff inhalation Q4H PRN Wheezing 12/29/20 03/16/22 10/06/21 History aerosol inhaler simvastatin 20 mg tablet 1 tab PO BEDTIME 12/29/20 03/16/22 10/05/21 History thiamine HCl (vitamin B1) 100 mg 1 tab PO BEDTIME 12/29/20 03/16/22 10/05/21 History tablet aspirin 81 mg tablet,delayed 1 tab PO BEDTIME 02/04/21 03/16/22 12/11/21 History release buspirone 5 mg tablet 5 mg PO BID 02/04/21 03/16/22 12/11/21 History ramelteon 8 mg tablet 1 tab PO BEDTIME 05/12/21 03/16/22 10/05/21 History tamsulosin 0.4 mg capsule 1 cap PO DAILY@1700 05/12/21 03/16/22 10/06/21 History omeprazole 20 mg capsule,delayed 1 cap PO BID@0630,1630 06/01/21 03/16/22 10/06/21 History release insulin glargine 100 unit/mL 45 unit subcut BEDTIME 06/24/21 03/16/22 10/05/21 History subcutaneous solution (Lantus U-100 Insulin) insulin aspart U-100 100 unit/mL 1 sliding scale dose subcut TIDAC 07/21/21 03/16/22 10/06/21 History (3 mL) subcutaneous pen (Novolog Flexpen U-100 Insulin aspart) gabapentin 300 mg capsule 600 mg PO TID 10/06/21 03/16/22 10/05/21 History multivitamin 1 tab PO QAM 12/11/21 03/16/22 Unknown History omega-3 fatty acids-fish oil 340 1 cap PO QAM 12/11/21 03/16/22 Unknown History mg-1,000 mg capsule (Fish Oil) folic acid 1 mg tablet 1 tab PO DAILY 03/16/22 03/16/22 Unknown History Physical Exam Vital Signs and Narrative: Vital Signs: Last Vital Signs Temp 97.8 F 03/16/22 08:27 Pulse 82 03/16/22 08:27 Resp 16 03/16/22 08:27 BP 107/62 03/16/22 08:27 Pulse Ox 99 03/16/22 08:27 O2 Del Method 03/16/22 08:27 O2 Flow Rate 2 03/16/22 08:27 BMI result Body Mass Index 31.2 Const: Other: Constitutional - Awake and Alert, No apparent distress; unkempt Eyes - PERRLA, EOMI Cardiovascular - S1S2, RRR, No edema Respiratory - Normal lung expansion, Normal respiratory effort, No respiratory distress, CTA bilaterally Gastrointestinal - NT / ND; +BS; No rebound or guarding - No CVA tenderness; see pictures below Extremities - no calf tenderness bilaterally, no swelling Musculoskeletal - Normal inspection, normal ROM Skin - Warm/Dry Neurological - Alert & oriented x3, No focal deficit Psychological - Appropriate affect Skin: Other: Results Labs CBC and Chem 7: 03/15/22 20:14 03/16/22 04:05 Labs: Laboratory Results - last 24 hr 03/15/22 03/15/22 03/15/22 18:01 20:14 20:14 MCV 84.7 MCH 29.9 MCHC 35.3 RDW 13.3 Plt Count 332 D MPV 8.4 L Immature Gran % (Auto) 0.7 H Neut % (Auto) 67.3 Lymph % (Auto) 10.6 L [place] % (Auto) 17.1 H Eos % (Auto) 3.4 Baso % (Auto) 0.9 Lymph # (Auto) 1.0 L [place] # (Auto) 1.7 H Eos # (Auto) 0.3 Baso # (Auto) 0.1 Abs Immat Gran (auto) 0.07 H Absolute Neuts (auto) 6.6 Absolute Nucleated RBC 0.000 Nucleated RBC % (auto) 0.0 Smear Tech's Comments VERIFIED VBG pH VBG pCO2 VBG pO2 VBG HCO3 VBG O2 Saturation VBG Base Excess Anion Gap 21 H Estim Creat Clear Calc 63.4 Estimated GFR 57 POC Glucose 283 H Random Glucose 272 H D Lactic Acid Calcium 9.9 Magnesium 1.9 Total Bilirubin 0.6 AST 26 ALT 19 Alkaline Phosphatase 182 H Ammonia Total Creatine Kinase 117 D Troponin I High Sens Total Protein 7.0 Albumin 4.1 Urine Color Urine Appearance Urine pH Ur Specific [place] Urine Protein Urine Glucose (UA) Urine Ketones Urine Blood Urine Nitrite Ur Leukocyte Esterase Urine RBC Urine WBC Ur Squamous Epith Cells Urine Bacteria Hyaline Casts Urine Opiates Screen Urine Fentanyl Screen Ur Barbiturates Screen Ur Phencyclidine Scrn Ur Amphetamines Screen U Benzodiazepines Scrn Urine Cocaine Screen U Marijuana (THC) Screen Ethyl Alcohol < 10 Acetone, Qual Influenza Type A (PCR) Influenza Type B (PCR) RSV RNA Qual (PCR) SARS-CoV-2 RNA (RT-PCR) 03/15/22 03/15/22 03/15/22 20:14 20:14 20:14 MCV MCH MCHC RDW Plt Count MPV Immature Gran % (Auto) Neut % (Auto) Lymph % (Auto) [place] % (Auto) Eos % (Auto) Baso % (Auto) Lymph # (Auto) [place] # (Auto) Eos # (Auto) Baso # (Auto) Abs Immat Gran (auto) Absolute Neuts (auto) Absolute Nucleated RBC Nucleated RBC % (auto) Smear Tech's Comments VBG pH VBG pCO2 VBG pO2 VBG HCO3 VBG O2 Saturation VBG Base Excess Anion Gap Estim Creat Clear Calc Estimated GFR POC Glucose Random Glucose Lactic Acid 1.6 Calcium Magnesium Total Bilirubin AST ALT Alkaline Phosphatase Ammonia 27 Total Creatine Kinase Troponin I High Sens 24.0 D Total Protein Albumin Urine Color Urine Appearance Urine pH Ur Specific [place] Urine Protein Urine Glucose (UA) Urine Ketones Urine Blood Urine Nitrite Ur Leukocyte Esterase Urine RBC Urine WBC Ur Squamous Epith Cells Urine Bacteria Hyaline Casts Urine Opiates Screen Urine Fentanyl Screen Ur Barbiturates Screen Ur Phencyclidine Scrn Ur Amphetamines Screen U Benzodiazepines Scrn Urine Cocaine Screen U Marijuana (THC) Screen Ethyl Alcohol Acetone, Qual Influenza Type A (PCR) Influenza Type B (PCR) RSV RNA Qual (PCR) SARS-CoV-2 RNA (RT-PCR) 03/15/22 03/16/22 03/16/22 20:42 01:03 01:03 MCV MCH MCHC RDW Plt Count MPV Immature Gran % (Auto) Neut % (Auto) Lymph % (Auto) [place] % (Auto) Eos % (Auto) Baso % (Auto) Lymph # (Auto) [place] # (Auto) Eos # (Auto) Baso # (Auto) Abs Immat Gran (auto) Absolute Neuts (auto) Absolute Nucleated RBC Nucleated RBC % (auto) Smear Tech's Comments VBG pH VBG pCO2 VBG pO2 VBG HCO3 VBG O2 Saturation VBG Base Excess Anion Gap 23 H Estim Creat Clear Calc 76.7 Estimated GFR > 60 POC Glucose Random Glucose 239 H Lactic Acid Calcium 8.6 D Magnesium Total Bilirubin 0.6 AST 24 ALT 16 Alkaline Phosphatase 160 H Ammonia Total Creatine Kinase Troponin I High Sens 19.9 Total Protein 6.4 L Albumin 3.6 Urine Color Urine Appearance Urine pH Ur Specific [place] Urine Protein Urine Glucose (UA) Urine Ketones Urine Blood Urine Nitrite Ur Leukocyte Esterase Urine RBC Urine WBC Ur Squamous Epith Cells Urine Bacteria Hyaline Casts Urine Opiates Screen Urine Fentanyl Screen Ur Barbiturates Screen Ur Phencyclidine Scrn Ur Amphetamines Screen U Benzodiazepines Scrn Urine Cocaine Screen U Marijuana (THC) Screen Ethyl Alcohol Acetone, Qual Small H Influenza Type A (PCR) NEGATIVE Influenza Type B (PCR) NEGATIVE RSV RNA Qual (PCR) NEGATIVE SARS-CoV-2 RNA (RT-PCR) NEGATIVE 03/16/22 03/16/22 03/16/22 01:03 01:03 04:05 MCV MCH MCHC RDW Plt Count MPV Immature Gran % (Auto) Neut % (Auto) Lymph % (Auto) [place] % (Auto) Eos % (Auto) Baso % (Auto) Lymph # (Auto) [place] # (Auto) Eos # (Auto) Baso # (Auto) Abs Immat Gran (auto) Absolute Neuts (auto) Absolute Nucleated RBC Nucleated RBC % (auto) Smear Tech's Comments VBG pH VBG pCO2 VBG pO2 VBG HCO3 VBG O2 Saturation VBG Base Excess Anion Gap Estim Creat Clear Calc Estimated GFR POC Glucose Random Glucose Lactic Acid 0.9 Calcium Magnesium Total Bilirubin AST ALT Alkaline Phosphatase Ammonia Total Creatine Kinase Troponin I High Sens Total Protein Albumin Urine Color Yellow Urine Appearance Clear Urine pH 6.0 Ur Specific [place] >= 1.030 H Urine Protein 30 (1+) H Urine Glucose (UA) 500 H Urine Ketones 15 Urine Blood Negative Urine Nitrite Negative Ur Leukocyte Esterase Moderate (2+) H Urine RBC 3-5 H Urine WBC 0-5 Ur Squamous Epith Cells 3-5 Urine Bacteria Trace Hyaline Casts 3-5 Urine Opiates Screen Not Detected Urine Fentanyl Screen Not Detected Ur Barbiturates Screen Not Detected Ur Phencyclidine Scrn Not Detected Ur Amphetamines Screen Not Detected U Benzodiazepines Scrn Not Detected Urine Cocaine Screen Not Detected U Marijuana (THC) Screen Not Detected Ethyl Alcohol Acetone, Qual Influenza Type A (PCR) Influenza Type B (PCR) RSV RNA Qual (PCR) SARS-CoV-2 RNA (RT-PCR) 03/16/22 03/16/22 03/16/22 04:05 04:08 08:34 MCV MCH MCHC RDW Plt Count MPV Immature Gran % (Auto) Neut % (Auto) Lymph % (Auto) [place] % (Auto) Eos % (Auto) Baso % (Auto) Lymph # (Auto) [place] # (Auto) Eos # (Auto) Baso # (Auto) Abs Immat Gran (auto) Absolute Neuts (auto) Absolute Nucleated RBC Nucleated RBC % (auto) Smear Tech's Comments VBG pH 7.49 H VBG pCO2 41 VBG pO2 84 VBG HCO3 31 H VBG O2 Saturation 97.0 VBG Base Excess 7.5 Anion Gap 19 Estim Creat Clear Calc 81.3 Estimated GFR > 60 POC Glucose 199 H Random Glucose 228 H Lactic Acid Calcium 8.1 L Magnesium Total Bilirubin 0.5 AST 22 ALT 15 Alkaline Phosphatase 149 H Ammonia Total Creatine Kinase Troponin I High Sens Total Protein 5.9 L Albumin 3.4 L Urine Color Urine Appearance Urine pH Ur Specific [place] Urine Protein Urine Glucose (UA) Urine Ketones Urine Blood Urine Nitrite Ur Leukocyte Esterase Urine RBC Urine WBC Ur Squamous Epith Cells Urine Bacteria Hyaline Casts Urine Opiates Screen Urine Fentanyl Screen Ur Barbiturates Screen Ur Phencyclidine Scrn Ur Amphetamines Screen U Benzodiazepines Scrn Urine Cocaine Screen U Marijuana (THC) Screen Ethyl Alcohol Acetone, Qual Influenza Type A (PCR) Influenza Type B (PCR) RSV RNA Qual (PCR) SARS-CoV-2 RNA (RT-PCR) Imaging Radiologist's Impressions: Impressions Chest X-Ray 03/15/22 20:26 IMPRESSION: Mild fullness of the left hilum, unchanged from prior study. Head CT 03/15/22 21:37 IMPRESSION: No acute intracranial pathology. Abdomen/Pelvis CT 03/15/22 21:56 IMPRESSION: 1. No subcutaneous air in the soft tissues to suggest Yulia's gangrene.. However please note that this is a clinical diagnosis made on physical exam. Testes are not included in [id number] CT scan. 2. Evaluation of the lungs is limited due to respiratory motion artifact. 3. Unchanged pretracheal mediastinal node measuring 1.3 cm. 4. Hepatic steatosis. 5. Bilateral perirenal stranding, unchanged from prior study. No hydronephrosis or nephrolithiasis. 6. Colonic diverticulosis, no CT findings of acute diverticulitis. Chest CT 03/15/22 21:56 IMPRESSION: 1. No subcutaneous air in the soft tissues to suggest Yulia's gangrene.. However please note that this is a clinical diagnosis made on physical exam. Testes are not included in [id number] CT scan. 2. Evaluation of the lungs is limited due to respiratory motion artifact. 3. Unchanged pretracheal mediastinal node measuring 1.3 cm. 4. Hepatic steatosis. 5. Bilateral perirenal stranding, unchanged from prior study. No hydronephrosis or nephrolithiasis. 6. Colonic diverticulosis, no CT findings of acute diverticulitis. Pelvis CT 03/16/22 00:29 IMPRESSION: No perineal or scrotal gas. No significant subcutaneous edema. Assessment and Plan (1) Cellulitis, scrotum: Status: Acute (2) Acute hyponatremia: Status: Acute Plan The patient is a 66 year old M with a PMH of alcohol abuse, anxiety, copd, DM, chronic HFpEF, HLD, HTN, obesity who presents to the ED after paramedics were called in by a friend. 1. Mild DKA treated in the ED and now resolved start basal + bolus POC QIDAC pt educated on compliance with his insulin 2. Hyponatremia, milld hypoK likely hyopvoluemic and improving slowly with IVF received 3L total NS in the ED -- given his history of diastolic CHF, will repeat chem and give IVF judiciously pending results continue to trend replete K with po potassium 3. Fungal infection -- groin/scrotum + bacterial cellulitis nystatin powder educated on importanace of hygeine empiric zosyn given he is diabetic 4. Previously documented history of EtOH not forth coming with his EtOH use not in withdrawal at this time, will monitor with CIWA 5. Chronic HFpEF euvoluemic and does not appear to be on diuretics at home judicious use of IVF i/o Full Code DVT pptx, Lovenox Due to his hyponatremia which remains below 130, mild presenting DKA and fungal/bacterial rash/cellulitis in a patient who is immunocompromised due to his DM -- I anticipate a medically necessary inpatient hospitalization which is likely to span at least 2 midnights for treatment and monitoring of response. Quality Stroke Does the patient have a stroke diagnosis?: No VTE Prior VTE?: No VTE Risk Level:: Medical - moderate - high VTE Device Contraindication: Treatment Not Indicated VTE Drug Contraindication: N/A - Med Ordered
--- OUTSIDE RECORDS SUMMARY | 2022-03-16 11:14 | XMS_ITS ---
:1955 Author Care Team Providers Name Role Phone LUDMILA VIEYRA 1ST FLOOR OTHER [phone] ROBERT GARCIA Primary Care Provider [phone] Allergies Code Code System Name Reaction Severity [...] Deficiency; At Risk for Falls Renuka Velázquez ANIMAL KILLER: [address] [facility] [place] [address], Ph. 10/15/2020 Chronic Obstructive Lung Disease; Anxiet y; Essential Hypertension; Hyperlipidemia; Osteoarthritis; Type 2 Diabetes Mellitus; Vitamin Deficiency; Gastroesophageal Reflux Disease without Esophagitis Sissy Rodriguez MD: [address] [facility] [place] [address], Ph. 10/14/2020 Chronic Obstructive Lung Disease; Osteoa rthritis Renuka Velázquez ANIMAL KILLER: [address] [facility] [place] [address], Ph. 10/12/2020 Chronic Obstructive Lung Disease; Anxiet y; Essential Hypertension; Hyperlipidemia; Osteoarthritis; Type 2 Diabetes Mellitus; Vitamin Deficiency; At Risk for Falls Chelsea Marshall ANIMAL KILLER: [address] [facility] [place] [address], Ph. 10/09/2020 Chronic Obstructive Lung Disease; Anxiet y; Essential Hypertension; Hyperlipidemia; Osteoarthritis; Type 2 Diabetes Mellitus; Vitamin Deficiency; At Risk for Falls Renuka Velázquez ANIMAL KILLER: [address] [place] [address], Ph. 10/07/2020 Chronic Obstructive Lung Disease; Anxiet y; Type 2 Diabetes Mellitus Renuka Velázquez NP: [address] [facility] , [place] [address], Ph. 10/03/2020 Chronic Obstructive Lung Disease; Type 2 Diabetes Mellitus; Anxiety; Essential Hypertension; Osteoarthritis; Vitamin Deficiency; At Risk for Falls; Hyperlipidemia; Gastroesophageal Reflux Disease without Esophagitis Sissy Rodriguez MD: [address] [facility], [place] [address], Ph. 10/02/2020 Anxiety; Chronic Obstructive Lung Diseas e; Essential Hypertension; Osteoarthritis; Type 2 Diabetes Mellitus; Vitamin Deficiency; At Risk for Falls Renuka Velázquez ANIMAL KILLER: [address] [facility] , [place] [address], Ph. Social History Tobacco Smoking Status Former [...]
--- OUTSIDE RECORDS SUMMARY | 2022-03-16 11:14 | XMS_ITS ---
:1955 Author Care Team Providers Name Role Phone [facility] Primary Care Provider [phone] [facility] Primary Care Provider [phone] Allergies Code Code System Name Reaction Severity [...] tablet Active ? Not available Artificial Tears ([id number]) 1 %-0.2 Active ? Not available %-0.2 [...] nabumetone 500 mg tablet Active ? Not josh ilable neomycin 3.5 mg/g-polymyxin B 10,000 unit/g-dexameth [...] Dipika betes Mellitus Agustín Gomez DPM: [address] [facility] [address], [place] [address], Ph. Social History Tobacco Smoking Status Unknown [...]
[2022-03-16 11:15] VITALS: BP 104/60; PULSE 92; RESP 18; TEMP 36.7; O2SAT 93
--- NOTE | 2022-03-16 11:43 | PC.NURSE ---
PHLEBOTOMY WENT INTO PATIENTS ROOM FOR A BLOOD DRAW, PATIENT REFUSED, CHET SPENCER AWARE
[2022-03-16] MEDS: Enoxaparin Sodium 40 MG/0.4 ML SYRINGE SUBCUT (12:13)
[2022-03-16] MEDS: Potassium Chloride ER 20 MEQ TAB.ER.PRT 40 MEQ PO (12:13)
[2022-03-16] MEDS: Piperacillin Sodium/Tazobactam 3.375 GM in 0.9 % Sodium Chloride 50 ML IV ×2 (12:13→18:08)
[2022-03-16] MEDS: Nystatin Powder 15 GM BOTTLE 1 APPL TOPICAL (12:14)
--- NOTE | 2022-03-16 12:38 | PC.NURSE ---
Dr Palmer made aware that pt refused blood draw
[2022-03-16] MEDS: Omeprazole 20 MG CAPSULE.DR PO (14:17)
[2022-03-16 16:30] VITALS: BP 117/59; PULSE 88; RESP 20; TEMP 36.3; O2SAT 98
[2022-03-16] MEDS: 0.9 % Sodium Chloride Flush 3 ML SYRINGE IVFLUSH (16:42)
[2022-03-16] MEDS: Gabapentin 300 MG CAPSULE 600 MG PO (16:42)
[2022-03-16 18:17] LABS: Glucose, Whole Blood 238 mg/dL (60-115)
[2022-03-16 18:25] VITALS: BP 111/58; PULSE 78; RESP 20; TEMP 36.4; O2SAT 94
[2022-03-16] MEDS: Insulin Lispro 100 UNIT/ML 3 ML VIAL SUBCUT (18:40)
[2022-03-16 19:16] VITALS: BMI 32.8
[2022-03-17] MEDS: 0.9 % Sodium Chloride Flush 3 ML SYRINGE IVFLUSH ×3 (01:03→14:31)
[2022-03-17] MEDS: Piperacillin Sodium/Tazobactam 3.375 GM in 0.9 % Sodium Chloride 50 ML IV ×3 (01:05→12:57)
[2022-03-17] MEDS: Omeprazole 20 MG CAPSULE.DR PO ×2 (06:35→17:33)
[2022-03-17 07:27] VITALS: BP 107/55; PULSE 85; RESP 18; TEMP 36.3; O2SAT 94
--- NOTE | 2022-03-17 07:28 | PC.NURSE ---
Pt was resistive to care and refused all bedtime meds including his Lantus and yelled at this nurse to leave him alone and get out of here at 21:31. This nurse notified Dr. Miguel Berman about this situation. In the operational intelligence officer, the pt was compliance in taking his 06:00 AM meds and allowed this nurse to assess his fungal rash on his groin area, barrier cream applied.
[2022-03-17 07:48] LABS: Glucose, Whole Blood 270 mg/dL (60-115)
[2022-03-17] MEDS: busPIRone HCl 5 MG TABLET PO ×2 (08:01→20:30)
[2022-03-17] MEDS: Gabapentin 300 MG CAPSULE 600 MG PO ×3 (08:01→20:30)
[2022-03-17] MEDS: Multivitamin TABLET 1 TAB PO (08:01)
[2022-03-17] MEDS: Folic Acid 1 MG TABLET PO (08:02)
[2022-03-17] MEDS: Insulin Lispro 100 UNIT/ML 3 ML VIAL SUBCUT ×4 (08:02→20:30)
--- NOTE | 2022-03-17 09:56 | PHA.PROG ---
Admission Date/Time: March 16, 2022 11:07 Indication: Bacteremia Weight in k kg Adjusted body weight in Kg: [place] body weight in Kg: Obesity Dosing Indication % IBW: Serum Creatinine - Last 168 Hours 03/15/22 03/16/22 03/16/22 20:14 01:03 04:05 Creatinine 1.27 1.05 0.99 Estimated CrCl and GFR - Last 168 Hours 03/15/22 03/16/22 03/16/22 20:14 01:03 04:05 Estim Creat Clear Calc 63.4 76.7 81.3 Estimated GFR 57 > 60 > 60 Vancomycin Loading Dose: 2000mg x 1 Current Vancomycin Dosing Regimen: 750mg Q12H Vancomycin Monitoring using AUC goal of 400 - 600 range with trough as surrogate marker: 475mg/L Date and Time for next Vancomycin Level to be drawn: 03/18 Pharmacist Comments on Vancomycin Plan: Using obese model, daily renal function ordered. will continue to monitor Vancomycin dosing will take advantage of [employer] as a clinical decision support tool that uses Bayesian modeling to calculate individual patient's pharmacokinetic parameters and forecast the patient's drug concentration time course with the target goal AUC 24 range of 400 - 600 mg/L/hr.
--- NOTE | 2022-03-17 10:14 | P.PNIM_ITS ---
Subjective Subjective Date of Service: 03/17/22 Interval History: seen and examined feels the same as yesterday was non-compliant with treatment yesterday evening, but allowed care this AM (other than blood draw) Review of Systems negative except HPI Physical Exam Vital Signs: Vital Signs: Last Vital Signs Temp 97.3 F 03/17/22 07:27 Pulse 85 03/17/22 07:27 Resp 18 03/17/22 07:27 BP 107/55 L 03/17/22 07:27 Pulse Ox 94 03/17/22 07:27 O2 Del Method 03/17/22 07:27 O2 Flow Rate 2 03/16/22 08:27 BMI result Body Mass Index 32.8 Const: Other: General - no acute distress, appears comfortable Cardiovascular - regular rate and rhythm, S1-S2 Lungs - normal respiratory effort, clear to auscultation bilaterally, no wheezing Abdomen - soft, nontender, no rebound or guarding Extremities - no edema bilaterally Neuro - awake and alert, no focal deficits /Skin - groin rash appears about the same Objective Data Active Medications Acetaminophen (Acetaminophen 325 Mg Tablet) 650 mg PO Q6H PRN PRN Reason: Pain, Mild (Pain Scale 1-3) Aspirin (Aspirin Enteric Coated 81 Mg Tablet.) 81 mg PO BEDTIME [facility] Last Admin: 03/16/22 21:52 Dose: Not Given Documented By: GALILEO Non-Admin Reason: Patient Refused Atorvastatin Calcium (Atorvastatin Calcium 10 Mg Tablet) 10 mg PO BEDTIME [facility] Last Admin: 03/16/22 21:52 Dose: Not Given Documented By: GALILEO Non-Admin Reason: Patient Refused Buspirone HCl (Buspirone Hcl 5 Mg Tablet) 5 mg PO BID [facility] Last Admin: 03/17/22 08:01 Dose: 5 mg Documented By: SHERRI Enoxaparin Sodium (Enoxaparin Sodium 40 Mg/0.4 Ml Syringe) 40 mg SUBCUT Q24H [facility] Last Admin: 03/16/22 12:13 Dose: 40 mg Documented By: CRESCENCIO Folic Acid (Folic Acid 1 Mg Tablet) 1 mg PO DAILY [facility] Last Admin: 03/17/22 08:02 Dose: 1 mg Documented By: SHERRI Gabapentin (Gabapentin 300 Mg Capsule) 600 mg PO TID [facility] Last Admin: 03/17/22 08:01 Dose: 600 mg Documented By: SHERRI Piperacillin Sod/Tazobactam (Sod 3.375 gm/ Sodium Chloride) 50 mls @ 100 mls/hr IV Q6H [facility] Last Infusion: 03/17/22 08:06 Dose: 0 mls/hr Documented By: SHERRI Vancomycin HCl (Vancomycin/Ns) 2,000 mg in 520 mls @ 260 mls/hr IV ONCE ONE Stop: 03/17/22 11:59 Vancomycin HCl 750 mg/ Sodium (Chloride) 265 mls @ 265 mls/hr IV Q12H [facility] Insulin Glargine (Insulin Glargine,Hum.Rec.Anlog 100 Unit/Ml 10 Ml Vial) 45 unit SUBCUT BEDTIME [facility] Last Admin: 03/16/22 21:52 Dose: Not Given Documented By: GALILEO Non-Admin Reason: Patient Refused Insulin Human Lispro (Insulin Lispro 100 Unit/Ml 3 Ml Vial) 0 unit SUBCUT QIDACHS [facility]; Protocol Last Admin: 03/17/22 08:02 Dose: 6 unit Documented By: SHERRI Multivitamins/Vitamin C (Multivitamin Tablet) 1 tab PO DAILY [facility] Last Admin: 03/17/22 08:01 Dose: 1 tab Documented By: SHERRI Nystatin (Nystatin Powder 15 Gm Bottle) 1 appl TOPICAL BID [facility]; Protocol Last Admin: 03/17/22 08:09 Dose: Not Given Documented By: SHERRI Non-Admin Reason: not available Omeprazole (Omeprazole 20 Mg Capsule.) 20 mg PO BID@0630,1630 [facility] Last Admin: 03/17/22 06:35 Dose: 20 mg Documented By: GALILEO Ondansetron HCl (Ondansetron Hcl 4 Mg/2 Ml Vial) 4 mg IVPUSH Q8H PRN PRN Reason: Nausea and Vomiting Pharmacy Consult (Consult Rx Vancomycin Dosing) 1 each MISCELLANE DAILY PRN PRN Reason: Consult order Sodium Chloride (0.9 % Sodium Chloride Flush 3 Ml Syringe) 3 ml IVFLUSH QSHIFT [facility] Last Admin: 03/17/22 08:04 Dose: 3 ml Documented By: SHERRI Tamsulosin HCl (Tamsulosin Hcl 0.4 Mg Capsule) 0.4 mg PO DAILY@1700 [facility] Last Admin: 03/16/22 18:14 Dose: Not Given Documented By: GIN Non-Admin Reason: Patient Refused Thiamine HCl (Thiamine Hcl 100 Mg Tablet) 100 mg PO BEDTIME [facility] Last Admin: 03/16/22 21:53 Dose: Not Given Documented By: GALILEO Non-Admin Reason: Patient Refused Labs CBC & Chem 7: 03/15/22 20:14 03/16/22 04:05 Labs: Laboratory Results - last 24 hr 03/16/22 03/17/22 18:12 07:25 POC Glucose 238 H 270 H Microbiology Microbiology Results: Microbiology 03/15/22 20:14 Blood Culture - Preliminary Blood - Venous Prelim: GPC Gram Stain only 03/15/22 20:14 Blood Culture - Preliminary Blood - Venous Prelim: GPC Gram Stain only Assessment and Plan (1) Cellulitis, scrotum: Status: Acute (2) Acute hyponatremia: Status: Acute Plan The patient is a 66 year old M with a PMH of alcohol abuse, anxiety, copd, DM, chronic HFpEF, HLD, HTN, obesity who presents to the ED after paramedics were called in by a friend. 1. Gram positive bacteremia -- question secondary to groin cellulitis / fungal infection vs alternative source continue zosyn, add vancomyin ID consult further work up pending ID input repeat cx with AM labs tomorrow no evidence of severe sepsis at this time 2. Mild DKA, uncontrolled DM resolved and likely due to non-comlpiance continue with basal + bolus insulin -- titrate as needed 3. Hyponatremia, milld hypoK likely hyopvoluemic and improving slowly with IVF received 3L total NS in the ED encourage oral hydration f/u repeat chem 4. Previously documented history of EtOH not forth coming with his EtOH use not in withdrawal at this time, will monitor with CIWA 5. Chronic HFpEF euvoluemic and does not appear to be on diuretics at home judicious use of IVF i/o Full Code DVT pptx, Lovenox Patient requires continued hospitalization due to gram positive bacteremia w ithout a definitive source. Work up in progress including consult with ID Quality Stroke Does the patient have a stroke diagnosis?: No VTE Prior VTE?: No VTE Risk Level:: Medical - moderate - high VTE Device Contraindication: Treatment Not Indicated VTE Drug Contraindication: N/A - Med Ordered
[2022-03-17] MEDS: Albuterol/Iprat 2.5/0.5MG 3 ML AMPUL.NEB INHALE (10:52)
[2022-03-17 11:27] VITALS: BP 110/56; PULSE 87; RESP 18; TEMP 36; O2SAT 95
[2022-03-17 11:51] LABS: Glucose, Whole Blood 164 mg/dL (60-115)
[2022-03-17] MEDS: Enoxaparin Sodium 40 MG/0.4 ML SYRINGE SUBCUT (12:58)
[2022-03-17 13:47] LABS: Hematocrit 33.8 % (42.0-52.0); Hemoglobin 11.6 g/dl (14.0-18.0); Mean Corpuscular HGB Conc 34.3 g/dl (31.0-36.0); Mean Corpuscular Hemoglobin 30.1 pg (27.0-33.0); Mean Corpuscular Volume 87.8 fL (80.0-98.0); Red Blood Count 3.85 X10*6/uL (4.60-5.80); Red Cell Distribution Width 13.6 % (11.0-16.0); White Blood Count 8.3 X10*3/uL (4.8-10.8)
[2022-03-17] MEDS: Nystatin Powder 15 GM BOTTLE 1 APPL TOPICAL ×2 (13:47→20:31)
[2022-03-17 13:59] VITALS: BP 136/89; PULSE 117; RESP 18; TEMP 36.2; O2SAT 100
[2022-03-17 14:32] LABS: Mean Platelet Volume 8.8 fL (9.4-12.4); Platelet Count 187 X10*3/uL (160-400)
[2022-03-17 14:33] LABS: Anion Gap 16 (12-20); Blood Urea Nitrogen 14 mg/dL (9-16); Calcium 8.3 mg/dL (8.4-10.2); Carbon Dioxide 24 mmol/L (22-29); Chloride 94 mmol/L (96-108); Creatinine Clr Calc Pharmacy 89.6; Estimated Glomerular Filt Rate > 60; Glucose Random 227 mg/dL (60-115); Potassium 4.1 mmol/L (3.3-5.1); Sodium 130 mmol/L (135-145)
--- NOTE | 2022-03-17 14:49 | W.PM.IDCN ---
History of Present Illness Data of Consult Service Date: 03/17/22 Requesting physician: Mike Palmer Primary Care Provider: MD YURIY Rodriguez Reason for consult: bacteremia He presents to ER with groin rash and pain for a week. He has alcohol use disorder. He has challenges keeping up with hygiene. He has bacteremia,pending cultures. He was started on Vancomycin and Zosyn. 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 Review of Systems Review of Systems: Yes all other systems are reviewed and are negative [facility] Past Medical History Medical History Acute respiratory failure with hypoxia LAUREN (acute kidney injury) Alcohol abuse Anxiety Bilateral pleural effusion Contusion of rib on left side COPD (chronic obstructive pulmonary disease) Diabetes mellitus type 1 Diastolic dysfunction Diastolic heart failure Elevated troponin Fall HLD (hyperlipidemia) Hypertension Nonrheumatic aortic (valve) stenosis Obesity Pneumonia Family History Family History Father Diabetes Mother Diabetes Family history: reviewed and not pertinent Surgical History Surgical History H/O elbow surgery H/O shoulder surgery History of hydrocelectomy S/P TURP Social History Social History Household Members: None Housing: Apartment Do you presently have visiting nurse or other home services: No Unable to assess alcohol history related to: Unable to respond Alcohol intake: current Alcohol intake frequency: 0-2 drinks per day Alcohol type: hard liquor Patient Tobacco Use Status: Former Tobacco user Tobacco use type: Cigar e-Cigarette/Vaping Use: Currently Using Second Hand Smoke Exposure: No Advance Directives Date on File: 10/11/20 service: No Current occupational status: unemployed and disabled Meds Allergies Allergy/AdvReac Type Severity Reaction Status Date / Time ENVIRONMENTAL Allergy Mild SNEEZING, Uncoded 10/06/21 15:49 WATERY EYES Active Medications: Current Medications Acetaminophen (Acetaminophen 325 Mg Tablet) 650 mg PO Q6H PRN PRN Reason: Pain, Mild (Pain Scale 1-3) Albuterol/Ipratropium (Albuterol/Iprat 2.5/0.5mg 3 Ml Ampul.Jerson) 3 ml INHALE RQ6H PRN PRN Reason: Wheezing Last Admin: 03/17/22 10:52 Dose: 3 ml Aspirin (Aspirin Enteric Coated 81 Mg Tablet.) 81 mg PO BEDTIME [facility] Last Admin: 03/16/22 21:52 Dose: Not Given Atorvastatin Calcium (Atorvastatin Calcium 10 Mg Tablet) 10 mg PO BEDTIME [facility] Last Admin: 03/16/22 21:52 Dose: Not Given Buspirone HCl (Buspirone Hcl 5 Mg Tablet) 5 mg PO BID [facility] Last Admin: 03/17/22 08:01 Dose: 5 mg Enoxaparin Sodium (Enoxaparin Sodium 40 Mg/0.4 Ml Syringe) 40 mg SUBCUT Q24H [facility] Last Admin: 03/17/22 12:58 Dose: 40 mg Folic Acid (Folic Acid 1 Mg Tablet) 1 mg PO DAILY [facility] Last Admin: 03/17/22 08:02 Dose: 1 mg Gabapentin (Gabapentin 300 Mg Capsule) 600 mg PO TID [facility] Last Admin: 03/17/22 14:31 Dose: 600 mg Piperacillin Sod/Tazobactam (Sod 3.375 gm/ Sodium Chloride) 50 mls @ 100 mls/hr IV Q6H [facility] Last Infusion: 03/17/22 13:30 Dose: Infused Vancomycin HCl 750 mg/ Sodium (Chloride) 265 mls @ 265 mls/hr IV Q12H [facility] Insulin Glargine (Insulin Glargine,Hum.Rec.Anlog 100 Unit/Ml 10 Ml Vial) 45 unit SUBCUT BEDTIME [facility] Last Admin: 03/16/22 21:52 Dose: Not Given Insulin Human Lispro (Insulin Lispro 100 Unit/Ml 3 Ml Vial) 0 unit SUBCUT QIDACHS [facility]; Protocol Last Admin: 03/17/22 12:56 Dose: 2 unit Multivitamins/Vitamin C (Multivitamin Tablet) 1 tab PO DAILY [facility] Last Admin: 03/17/22 08:01 Dose: 1 tab Nystatin (Nystatin Powder 15 Gm Bottle) 1 appl TOPICAL BID [facility]; Protocol Last Admin: 03/17/22 13:47 Dose: 1 appl Omeprazole (Omeprazole 20 Mg Capsule.) 20 mg PO BID@0630,1630 [facility] Last Admin: 03/17/22 06:35 Dose: 20 mg Ondansetron HCl (Ondansetron Hcl 4 Mg/2 Ml Vial) 4 mg IVPUSH Q8H PRN PRN Reason: Nausea and Vomiting Pharmacy Consult (Consult Rx Vancomycin Dosing) 1 each MISCELLANE DAILY PRN PRN Reason: Consult order Sodium Chloride (0.9 % Sodium Chloride Flush 3 Ml Syringe) 3 ml IVFLUSH QSHIFT [facility] Last Admin: 03/17/22 14:31 Dose: 3 ml Tamsulosin HCl (Tamsulosin Hcl 0.4 Mg Capsule) 0.4 mg PO DAILY@1700 [facility] Last Admin: 03/16/22 18:14 Dose: Not Given Thiamine HCl (Thiamine Hcl 100 Mg Tablet) 100 mg PO BEDTIME [facility] Last Admin: 03/16/22 21:53 Dose: Not Given Home Medications Medication Instructions Recorded Confirmed Last Taken Type albuterol sulfate 90 mcg/actuation 2 puff inhalation Q4H PRN Wheezing 12/29/20 03/16/22 10/06/21 History aerosol inhaler simvastatin 20 mg tablet 1 tab PO BEDTIME 12/29/20 03/16/22 10/05/21 History thiamine HCl (vitamin B1) 100 mg 1 tab PO BEDTIME 12/29/20 03/16/22 10/05/21 History tablet aspirin 81 mg tablet,delayed 1 tab PO BEDTIME 02/04/21 03/16/22 12/11/21 History release buspirone 5 mg tablet 5 mg PO BID 02/04/21 03/16/22 12/11/21 History ramelteon 8 mg tablet 1 tab PO BEDTIME 05/12/21 03/16/22 10/05/21 History tamsulosin 0.4 mg capsule 1 cap PO DAILY@1700 05/12/21 03/16/22 10/06/21 History omeprazole 20 mg capsule,delayed 1 cap PO BID@0630,1630 06/01/21 03/16/22 10/06/21 History release insulin glargine 100 unit/mL 45 unit subcut BEDTIME 06/24/21 03/16/22 10/05/21 History subcutaneous solution (Lantus U-100 Insulin) insulin aspart U-100 100 unit/mL 1 sliding scale dose subcut TIDAC 07/21/21 03/16/22 10/06/21 History (3 mL) subcutaneous pen (Novolog Flexpen U-100 Insulin aspart) gabapentin 300 mg capsule 600 mg PO TID 10/06/21 03/16/22 10/05/21 History multivitamin 1 tab PO QAM 12/11/21 03/16/22 Unknown History omega-3 fatty acids-fish oil 340 1 cap PO QAM 12/11/21 03/16/22 Unknown History mg-1,000 mg capsule (Fish Oil) folic acid 1 mg tablet 1 tab PO DAILY 03/16/22 03/16/22 Unknown History Physical Exam Vital Signs: Vital Signs: Last Vital Signs Temp 97.1 F 03/17/22 13:59 Pulse 117 H 03/17/22 13:59 Resp 18 03/17/22 13:59 BP 136/89 03/17/22 13:59 Pulse Ox 100 03/17/22 13:59 O2 Del Method 03/17/22 13:59 O2 Flow Rate 2 03/16/22 08:27 BMI result Body Mass Index 32.8 Const: General: cooperative HEENT: Head: Yes normal to inspection Face and sinus: Yes normal facial exam Mouth: Normal oral and palatal mucosa present Teeth and gingiva: dentition normal Eyes: General: appearance normal, both eyes and all related structures Pupils: Equal, round and reactive pupils present Resp: Effort & Inspection: normal respiratory effort Cardio: Rate: regular rate Rhythm: regular rhythm GI: Palpation (GI): Soft to palpation and nontender : Other: irritated painful superficial skin on scrotum satellite fungal lesions inner thighs some excoriation scrotal area no abscess or swelling groin area Skin: General skin exam: no rashes or lesions noted Neuro: General: moves all extremities Cranial nerves: Yes Equal, round and reactive pupils present Extrem: General: Yes normal to inspection Psych: Appearance: grossly normal Results Labs CBC & Chem 7: 03/17/22 13:33 03/17/22 13:26 Labs: Short CBC 03/17/22 Range/Units 13:33 WBC 8.3 (4.8-10.8) X10*3/uL Hgb 11.6 L (14.0-18.0) g/dl Hct 33.8 L (42.0-52.0) % Plt Count 187 D (160-400) X10*3/uL BMP 03/17/22 13:26 Sodium 130 L Potassium 4.1 D Chloride 94 L Carbon Dioxide 24 BUN 14 Creatinine 0.92 Calcium 8.3 L Microbiology Microbiology Results: Microbiology 03/15/22 20:14 Blood - Venous Blood Culture - Preliminary Prelim: GPC Gram Stain only 03/15/22 20:14 Blood - Venous Blood Culture - Preliminary Prelim: GPC Gram Stain only Assessment and Plan (1) Cellulitis, scrotum: Status: Acute there is resolving scrotal cellulitis there is fungal involvement as well He has bacteremia from VRE possible or strep or staph (2) Fungal dermatitis: Status: Acute (3) Bacteremia: Status: Acute Plan Would continue Vancomycin cover staph. Linezolid VRE Await cultures Check echo evaluate endocarditis
[2022-03-17 16:00] VITALS: BP 131/62; PULSE 90; RESP 17; TEMP 36.6; O2SAT 96
--- NOTE | 2022-03-17 16:05 | MHC.CM.PN ---
PER PHYSICIAN ROUNDS, PATIENT WILL REQUIRE TWO MORE DAYS OF IV ABX BEFORE DC. (BACTEREMIC)
[2022-03-17 16:24] LABS: Glucose, Whole Blood 248 mg/dL (60-115)
[2022-03-17] MEDS: Tamsulosin HCL 0.4 MG CAPSULE PO (17:32)
[2022-03-17] MEDS: Linezolid/D5W 600 MG/300 ML PIGGYBACK 300 MG IV (17:32)
[2022-03-17] MEDS: Acetaminophen 325 MG TABLET 650 MG PO (17:34)
[2022-03-17 20:00] VITALS: BP 124/52; PULSE 88; RESP 17; TEMP 36.5; O2SAT 96
[2022-03-17 20:11] LABS: Glucose, Whole Blood 351 mg/dL (60-115)
[2022-03-17] MEDS: Thiamine HCL 100 MG TABLET PO (20:30)
[2022-03-17] MEDS: Aspirin Enteric Coated 81 MG TABLET.DR PO (20:30)
[2022-03-17] MEDS: Atorvastatin Calcium 10 MG TABLET PO (20:30)
[2022-03-17] MEDS: Insulin Glargine,Hum.rec.anlog 100 UNIT/ML 10 ML VIAL 45 UNIT SUBCUT (20:31)
[2022-03-17] MEDS: vancomycin HCL 750 MG in 0.9 % Sodium Chloride 250 ML 265 MG IV (20:35)
[2022-03-17 23:19] VITALS: BP 140/60; PULSE 86; RESP 18; TEMP 36.1; O2SAT 92
[2022-03-18] MEDS: 0.9 % Sodium Chloride Flush 3 ML SYRINGE IVFLUSH ×3 (00:15→16:23)
[2022-03-18 03:18] VITALS: BP 126/50; PULSE 60; RESP 18; TEMP 36.1; O2SAT 94
[2022-03-18] MEDS: Linezolid/D5W 600 MG/300 ML PIGGYBACK 300 MG IV ×2 (05:21→16:23)
[2022-03-18] MEDS: Omeprazole 20 MG CAPSULE.DR PO ×2 (06:10→16:22)
[2022-03-18 07:30] VITALS: BP 104/57; PULSE 80; RESP 18; TEMP 36.2; O2SAT 97
[2022-03-18 07:38] LABS: Glucose, Whole Blood 222 mg/dL (60-115)
[2022-03-18] MEDS: Insulin Lispro 100 UNIT/ML 3 ML VIAL SUBCUT ×4 (08:13→20:48)
[2022-03-18] MEDS: vancomycin HCL 750 MG in 0.9 % Sodium Chloride 250 ML 265 MG IV (08:14)
[2022-03-18] MEDS: Folic Acid 1 MG TABLET PO (08:14)
[2022-03-18] MEDS: Multivitamin TABLET 1 TAB PO (08:14)
[2022-03-18] MEDS: busPIRone HCl 5 MG TABLET PO ×2 (08:14→20:48)
[2022-03-18] MEDS: Gabapentin 300 MG CAPSULE 600 MG PO ×3 (08:14→20:48)
[2022-03-18] MEDS: Nystatin Powder 15 GM BOTTLE 1 APPL TOPICAL ×2 (08:15→20:49)
[2022-03-18] MEDS: Acetaminophen 325 MG TABLET 650 MG PO (08:20)
[2022-03-18 11:23] LABS: Glucose, Whole Blood 250 mg/dL (60-115)
[2022-03-18] MEDS: Enoxaparin Sodium 40 MG/0.4 ML SYRINGE SUBCUT (12:12)
--- NOTE | 2022-03-18 14:09 | P.PNIM_ITS ---
Subjective Subjective Date of Service: 03/19/22 Interval History: Notes minimal improvement since admit Review of Systems Denies chest pain Denies shortness of breath Denies nausea vomiting diarrhea Denies fever chills Physical Exam Vital Signs: Vital Signs: Last Vital Signs Temp 97.2 F 03/18/22 07:30 Pulse 80 03/18/22 07:30 Resp 18 03/18/22 07:30 BP 104/57 L 03/18/22 07:30 Pulse Ox 97 03/18/22 07:30 O2 Del Method 03/18/22 07:30 O2 Flow Rate 2 03/16/22 08:27 BMI result Body Mass Index 32.8 Const: Other: Awake alert mildly agitated at baseline Resp: Other: Clear to auscultation bilaterally. No rales rhonchi or wheezes Cardio: Other: No S4; positive S1-S2; no S3 murmurs rubs or gallops : Other: Scrotum erythematous and warm Extrem: Other: No edema bilaterally Objective Data Active Medications Acetaminophen (Acetaminophen 325 Mg Tablet) 650 mg PO Q6H PRN PRN Reason: Pain, Mild (Pain Scale 1-3) Last Admin: 03/18/22 08:20 Dose: 650 mg Documented By: ALETHEA Albuterol/Ipratropium (Albuterol/Iprat 2.5/0.5mg 3 Ml Ampul.Neb) 3 ml INHALE RQ6H PRN PRN Reason: Wheezing Last Admin: 03/17/22 10:52 Dose: 3 ml Documented By: MCKENZIE Aspirin (Aspirin Enteric Coated 81 Mg Tablet.) 81 mg PO BEDTIME [facility] Last Admin: 03/17/22 20:30 Dose: 81 mg Documented By: JOVITA Atorvastatin Calcium (Atorvastatin Calcium 10 Mg Tablet) 10 mg PO BEDTIME [facility] Last Admin: 03/17/22 20:30 Dose: 10 mg Documented By: JOVITA Buspirone HCl (Buspirone Hcl 5 Mg Tablet) 5 mg PO BID [facility] Last Admin: 03/18/22 08:14 Dose: 5 mg Documented By: ALETHEA Enoxaparin Sodium (Enoxaparin Sodium 40 Mg/0.4 Ml Syringe) 40 mg SUBCUT Q24H [facility] Last Admin: 03/18/22 12:12 Dose: 40 mg Documented By: ALETHEA Folic Acid (Folic Acid 1 Mg Tablet) 1 mg PO DAILY [facility] Last Admin: 03/18/22 08:14 Dose: 1 mg Documented By: ALETHEA Gabapentin (Gabapentin 300 Mg Capsule) 600 mg PO TID [facility] Last Admin: 03/18/22 08:14 Dose: 600 mg Documented By: ALETHEA Linezolid (Zyvox/D5w) 600 mg in 300 mls @ 300 mls/hr IV Q12H [facility] Last Infusion: 03/18/22 06:36 Dose: 0 mls/hr Documented By: PERRY Insulin Glargine (Insulin Glargine,Hum.Rec.Anlog 100 Unit/Ml 10 Ml Vial) 45 unit SUBCUT BEDTIME [facility] Last Admin: 03/17/22 20:31 Dose: 45 unit Documented By: JOVITA Insulin Human Lispro (Insulin Lispro 100 Unit/Ml 3 Ml Vial) 0 unit SUBCUT QIDACHS [facility]; Protocol Last Admin: 03/18/22 12:11 Dose: 4 unit Documented By: ALETHEA Multivitamins/Vitamin C (Multivitamin Tablet) 1 tab PO DAILY [facility] Last Admin: 03/18/22 08:14 Dose: 1 tab Documented By: ALETHEA Nystatin (Nystatin Powder 15 Gm Bottle) 1 appl TOPICAL BID [facility]; Protocol Last Admin: 03/18/22 08:15 Dose: 1 appl Documented By: ALETHEA Omeprazole (Omeprazole 20 Mg Capsule.) 20 mg PO BID@0630,1630 [facility] Last Admin: 03/18/22 06:10 Dose: 20 mg Documented By: PERRY Ondansetron HCl (Ondansetron Hcl 4 Mg/2 Ml Vial) 4 mg IVPUSH Q8H PRN PRN Reason: Nausea and Vomiting Pharmacy Consult (Consult Rx Vancomycin Dosing) 1 each MISCELLANE DAILY PRN PRN Reason: Consult order Sodium Chloride (0.9 % Sodium Chloride Flush 3 Ml Syringe) 3 ml IVFLUSH QSHIFT [facility] Last Admin: 03/18/22 08:14 Dose: 3 ml Documented By: ALETHEA Tamsulosin HCl (Tamsulosin Hcl 0.4 Mg Capsule) 0.4 mg PO DAILY@1700 [facility] Last Admin: 03/17/22 17:32 Dose: 0.4 mg Documented By: SHERRI Thiamine HCl (Thiamine Hcl 100 Mg Tablet) 100 mg PO BEDTIME [facility] Last Admin: 03/17/22 20:30 Dose: 100 mg Documented By: JOVITA Labs CBC & Chem 7: 03/19/22 09:54 03/19/22 09:54 Labs: Laboratory Results - last 24 hr 03/17/22 03/17/22 03/17/22 13:26 13:33 16:16 Plt Count 187 D MPV 8.8 L Anion Gap 16 Estim Creat Clear Calc 89.6 Estimated GFR > 60 POC Glucose 248 H Random Glucose 227 H Calcium 8.3 L 03/17/22 03/18/22 03/18/22 19:25 07:10 11:13 Plt Count MPV Anion Gap Estim Creat Clear Calc Estimated GFR POC Glucose 351 H* 222 H 250 H Random Glucose Calcium Microbiology Microbiology Results: Microbiology 03/15/22 20:14 Blood Culture - Preliminary Blood - Venous Coag negative Staphylococcus 03/15/22 20:14 Blood Culture - Preliminary Blood - Venous Coag negative Staphylococcus Assessment and Plan (1) Cellulitis, scrotum: Status: Acute (2) Acute hyponatremia: Status: Acute Plan The patient is a 66 year old M with a PMH of alcohol abuse, anxiety, copd, DM, chronic HFpEF, HLD, HTN, obesity who presents to the ED after paramedics were called in by a friend. 1.Gram positive bacteremia -- question secondary to groin cellulitis / fungal infection vs alternative source -coag-negative staph along with VRE -discussed with ID; will DC vancomycin and await culture 2. Poorly controlled DM -improving but not significantly -Continue basal insulin as outpatient -lispro correctional scale -adjust as indicated 3. Hyponatremia -improved with IV volume repletion -follow renal/divalents 4.EtOH not forth coming with his EtOH use not in withdrawal at this time, will monitor with CIWA 5. Chronic HFpEF -well compensated at this time Full Code DVT pptx, Lovenox Patient requires continued hospitalization due to gram positive bacteremia without a definitive source. Quality Stroke Does the patient have a stroke diagnosis?: No VTE Prior VTE?: No VTE Risk Level:: Medical - moderate - high VTE Device Contraindication: Treatment Not Indicated VTE Drug Contraindication: N/A - Med Ordered
--- NOTE | 2022-03-18 14:13 | MHC.CM.PN ---
PATIENT LIVES ALONE. HE HAS O2 AT NIGHT (2L) THROUGH [facility]. USES [facility] OR FRIENDS FOR TRANSPORT ASSIST. PATIENT AGREES TO IMM BEING LEFT BEDSIDE IMM 03/17 IN CHART
[2022-03-18 16:00] VITALS: BP 107/57; PULSE 83; RESP 18; TEMP 36.3; O2SAT 93
[2022-03-18 16:22] LABS: Glucose, Whole Blood 218 mg/dL (60-115)
[2022-03-18] MEDS: Tamsulosin HCL 0.4 MG CAPSULE PO (16:22)
[2022-03-18 19:46] LABS: Glucose, Whole Blood 257 mg/dL (60-115)
[2022-03-18 19:51] VITALS: BP 104/54; PULSE 81; TEMP 36.1; O2SAT 96
[2022-03-18] MEDS: Thiamine HCL 100 MG TABLET PO (20:47)
[2022-03-18] MEDS: Aspirin Enteric Coated 81 MG TABLET.DR PO (20:47)
[2022-03-18] MEDS: Atorvastatin Calcium 10 MG TABLET PO (20:48)
[2022-03-18] MEDS: Insulin Glargine,Hum.rec.anlog 100 UNIT/ML 10 ML VIAL 45 UNIT SUBCUT (20:48)
[2022-03-18 23:58] VITALS: BP 106/63; PULSE 81; RESP 18; TEMP 36.2; O2SAT 94
[2022-03-19] VITALS (8 sets, daily range): BP systolic 93–124; BP diastolic 51–67; PULSE 79–91; RESP 14–20; TEMP 36.1–36.7; O2SAT 95–98
[2022-03-19] MEDS: 0.9 % Sodium Chloride Flush 3 ML SYRINGE IVFLUSH ×4 (00:38→23:41)
[2022-03-19] MEDS: Linezolid/D5W 600 MG/300 ML PIGGYBACK 300 MG IV ×2 (04:08→16:03)
[2022-03-19] MEDS: Omeprazole 20 MG CAPSULE.DR PO ×2 (06:04→16:03)
[2022-03-19] MEDS: Albuterol/Iprat 2.5/0.5MG 3 ML AMPUL.NEB INHALE (06:16)
[2022-03-19 08:13] LABS: Glucose, Whole Blood 249 mg/dL (60-115)
[2022-03-19] MEDS: Insulin Lispro 100 UNIT/ML 3 ML VIAL SUBCUT ×4 (08:38→21:36)
[2022-03-19] MEDS: busPIRone HCl 5 MG TABLET PO ×2 (08:39→21:37)
[2022-03-19] MEDS: Folic Acid 1 MG TABLET PO (08:39)
[2022-03-19] MEDS: Multivitamin TABLET 1 TAB PO (08:39)
[2022-03-19] MEDS: Gabapentin 300 MG CAPSULE 600 MG PO ×3 (08:39→21:37)
[2022-03-19] MEDS: Nystatin Powder 15 GM BOTTLE 1 APPL TOPICAL ×2 (08:43→21:37)
[2022-03-19 10:12] LABS: Hematocrit 33.8 % (42.0-52.0); Hemoglobin 11.7 g/dl (14.0-18.0); Mean Corpuscular HGB Conc 34.6 g/dl (31.0-36.0); Mean Corpuscular Hemoglobin 30.7 pg (27.0-33.0); Mean Corpuscular Volume 88.7 fL (80.0-98.0); PLT CLUMP 1; Red Blood Count 3.81 X10*6/uL (4.60-5.80); Red Cell Distribution Width 13.8 % (11.0-16.0)
[2022-03-19 11:01] LABS: Alanine Aminotransferase 13 U/L (0-40); Albumin Level 3.1 g/dL (3.5-5.0); Alkaline Phosphatase 143 U/L (39-117); Anion Gap 17 (12-20); Aspartate Amino Transferase 20 U/L (5-37); Bilirubin Total 0.2 mg/dL (0.0-1.0); Blood Urea Nitrogen 10 mg/dL (9-16); Carbon Dioxide 26 mmol/L (22-29); Chloride 95 mmol/L (96-108); Creatinine Clr Calc Pharmacy 85.9; Estimated Glomerular Filt Rate > 60; Glucose Fasting 254 mg/dL (60-99); Potassium 4.2 mmol/L (3.3-5.1); Sodium 134 mmol/L (135-145); Total Protein 5.5 g/dL (6.5-8.0)
[2022-03-19 11:09] LABS: Band Neutrophils Percent 1 % (3-5); Eosinophils Percent Manual 6 % (0-4); Lymphocytes Percent Manual 29 % (20-40); Monocytes Percent Manual 20 % (2-11); Neutrophils Percent Manual 44 % (45-73)
[2022-03-19 11:11] LABS: Platelet Estimate NORMAL (NORMAL); RBC Morphology NORMAL
[2022-03-19 11:52] LABS: Glucose, Whole Blood 197 mg/dL (60-115)
[2022-03-19] MEDS: Enoxaparin Sodium 40 MG/0.4 ML SYRINGE SUBCUT (12:00)
[2022-03-19 13:50] LABS: Eosinophils Absolute Manual 0.3 X10*3/uL (0.0-0.4); Lymphocytes Absolute Manual 1.6 X10*3/uL (1.2-4.9); Mean Platelet Volume 8.4 fL (9.4-12.4); Monocytes Absolute Manual 1.1 X10*3/uL (0.1-1.2); Neutrophils Absolute Manual 2.5 X10*3/uL (2.0-8.3); Platelet Count 183 X10*3/uL (160-400); White Blood Count 5.6 X10*3/uL (4.8-10.8)
[2022-03-19 13:51] LABS: Platelet Morphology Comment NORMAL
--- NOTE | 2022-03-19 14:19 | MHC.CM.PN ---
PLAN IS CONTINUE VANCO AND AWAITING CULTURES.
[2022-03-19] MEDS: Tamsulosin HCL 0.4 MG CAPSULE PO (16:03)
[2022-03-19 16:15] LABS: Glucose, Whole Blood 213 mg/dL (60-115)
[2022-03-19 21:27] LABS: Glucose, Whole Blood 251 mg/dL (60-115)
[2022-03-19] MEDS: Insulin Glargine,Hum.rec.anlog 100 UNIT/ML 10 ML VIAL 45 UNIT SUBCUT (21:35)
[2022-03-19] MEDS: Aspirin Enteric Coated 81 MG TABLET.DR PO (21:36)
[2022-03-19] MEDS: Thiamine HCL 100 MG TABLET PO (21:36)
[2022-03-19] MEDS: Atorvastatin Calcium 10 MG TABLET PO (21:37)
[2022-03-20 03:13] VITALS: BP 122/58; PULSE 77; RESP 18; TEMP 36.3; O2SAT 96
[2022-03-20] MEDS: Linezolid/D5W 600 MG/300 ML PIGGYBACK 300 MG IV ×2 (04:30→16:38)
[2022-03-20] MEDS: Omeprazole 20 MG CAPSULE.DR PO ×2 (06:24→15:01)
[2022-03-20 07:31] LABS: Glucose, Whole Blood 160 mg/dL (60-115)
[2022-03-20 07:52] LABS: Creatinine Clr Calc Pharmacy 83.3; Estimated Glomerular Filt Rate > 60
[2022-03-20 07:59] VITALS: BP 118/74; PULSE 82; RESP 19; TEMP 36.8; O2SAT 96
[2022-03-20] MEDS: Insulin Lispro 100 UNIT/ML 3 ML VIAL SUBCUT ×4 (08:19→21:46)
[2022-03-20] MEDS: Multivitamin TABLET 1 TAB PO (08:21)
[2022-03-20] MEDS: Folic Acid 1 MG TABLET PO (08:21)
[2022-03-20] MEDS: busPIRone HCl 5 MG TABLET PO ×2 (08:21→21:33)
[2022-03-20] MEDS: Gabapentin 300 MG CAPSULE 600 MG PO ×3 (08:22→21:33)
[2022-03-20] MEDS: 0.9 % Sodium Chloride Flush 3 ML SYRINGE IVFLUSH ×2 (08:23→21:33)
[2022-03-20] MEDS: Nystatin Powder 15 GM BOTTLE 1 APPL TOPICAL ×2 (09:26→21:46)
[2022-03-20] MEDS: Acetaminophen 325 MG TABLET 650 MG PO (10:40)
[2022-03-20 11:14] VITALS: BP 118/74; PULSE 82; O2SAT 96
[2022-03-20 11:25] LABS: Glucose, Whole Blood 176 mg/dL (60-115)
[2022-03-20 11:48] VITALS: BP 104/60; PULSE 80; RESP 17; TEMP 36.3; O2SAT 95
[2022-03-20] MEDS: Enoxaparin Sodium 40 MG/0.4 ML SYRINGE SUBCUT (11:55)
[2022-03-20 12:00] VITALS: BP 104/16; PULSE 80; RESP 16; TEMP 36.3
--- NOTE | 2022-03-20 15:28 | P.PNIM_ITS ---
Subjective Subjective Date of Service: 03/20/22 Interval History: Feels better today; more interactive Review of Systems Denies chest pain Denies shortness of breath Denies nausea vomiting diarrhea Denies fever chills Physical Exam Vital Signs: Vital Signs: Last Vital Signs Temp 97.4 F 03/20/22 12:00 Pulse 80 03/20/22 12:00 Resp 16 03/20/22 12:00 BP 104/16 L 03/20/22 12:00 Pulse Ox 95 03/20/22 11:48 O2 Del Method 03/20/22 11:48 O2 Flow Rate 2 03/16/22 08:27 BMI result Body Mass Index 32.8 Const: Other: Awake alert mildly agitated at baseline Resp: Other: Clear to auscultation bilaterally. No rales rhonchi or wheezes Cardio: Other: No S4; positive S1-S2; no S3 murmurs rubs or gallops : Other: Scrotum erythematous and warm Extrem: Other: No edema bilaterally Objective Data Active Medications Acetaminophen (Acetaminophen 325 Mg Tablet) 650 mg PO Q6H PRN PRN Reason: Pain, Mild (Pain Scale 1-3) Last Admin: 03/20/22 10:40 Dose: 650 mg Documented By: JONATHAN Albuterol/Ipratropium (Albuterol/Iprat 2.5/0.5mg 3 Ml Ampul.Neb) 3 ml INHALE RQ6H PRN PRN Reason: Wheezing Last Admin: 03/19/22 06:16 Dose: 3 ml Documented By: SHERYL Aspirin (Aspirin Enteric Coated 81 Mg Tablet.) 81 mg PO BEDTIME [facility] Last Admin: 03/19/22 21:36 Dose: 81 mg Documented By: JOVITA Atorvastatin Calcium (Atorvastatin Calcium 10 Mg Tablet) 10 mg PO BEDTIME [facility] Last Admin: 03/19/22 21:37 Dose: 10 mg Documented By: JOVITA Buspirone HCl (Buspirone Hcl 5 Mg Tablet) 5 mg PO BID [facility] Last Admin: 03/20/22 08:21 Dose: 5 mg Documented By: JONATHAN Enoxaparin Sodium (Enoxaparin Sodium 40 Mg/0.4 Ml Syringe) 40 mg SUBCUT Q24H [facility] Last Admin: 03/20/22 11:55 Dose: 40 mg Documented By: JONATHAN Folic Acid (Folic Acid 1 Mg Tablet) 1 mg PO DAILY [facility] Last Admin: 03/20/22 08:21 Dose: 1 mg Documented By: JONATHAN Gabapentin (Gabapentin 300 Mg Capsule) 600 mg PO TID [facility] Last Admin: 03/20/22 15:01 Dose: 600 mg Documented By: JONATHAN Linezolid (Zyvox/D5w) 600 mg in 300 mls @ 300 mls/hr IV Q12H [facility] Last Infusion: 03/20/22 05:31 Dose: 0 mls/hr Documented By: PERRY Insulin Glargine (Insulin Glargine,Hum.Rec.Anlog 100 Unit/Ml 10 Ml Vial) 45 unit SUBCUT BEDTIME [facility] Last Admin: 03/19/22 21:35 Dose: 45 unit Documented By: JOVITA Insulin Human Lispro (Insulin Lispro 100 Unit/Ml 3 Ml Vial) 0 unit SUBCUT QIDACHS [facility]; Protocol Last Admin: 03/20/22 11:54 Dose: 2 unit Documented By: JONATHAN Multivitamins/Vitamin C (Multivitamin Tablet) 1 tab PO DAILY [facility] Last Admin: 03/20/22 08:21 Dose: 1 tab Documented By: JONATHAN Nystatin (Nystatin Powder 15 Gm Bottle) 1 appl TOPICAL BID [facility]; Protocol Last Admin: 03/20/22 09:26 Dose: 1 appl Documented By: JONATHAN Omeprazole (Omeprazole 20 Mg Capsule.) 20 mg PO BID@0630,1630 [facility] Last Admin: 03/20/22 15:01 Dose: 20 mg Documented By: JONATHAN Ondansetron HCl (Ondansetron Hcl 4 Mg/2 Ml Vial) 4 mg IVPUSH Q8H PRN PRN Reason: Nausea and Vomiting Pharmacy Consult (Consult Rx Vancomycin Dosing) 1 each MISCELLANE DAILY PRN PRN Reason: Consult order Sodium Chloride (0.9 % Sodium Chloride Flush 3 Ml Syringe) 3 ml IVFLUSH QSHIFT [facility] Last Admin: 03/20/22 08:23 Dose: 3 ml Documented By: JONATHAN Tamsulosin HCl (Tamsulosin Hcl 0.4 Mg Capsule) 0.4 mg PO DAILY@1700 [facility] Last Admin: 03/19/22 16:03 Dose: 0.4 mg Documented By: JOVITA Thiamine HCl (Thiamine Hcl 100 Mg Tablet) 100 mg PO BEDTIME [facility] Last Admin: 03/19/22 21:36 Dose: 100 mg Documented By: JOVITA Labs CBC & Chem 7: 03/19/22 09:54 03/20/22 07:28 Labs: Laboratory Results - last 24 hr 03/19/22 03/19/22 03/20/22 16:11 21:23 07:27 Estim Creat Clear Calc Estimated GFR POC Glucose 213 H 251 H 160 H 03/20/22 03/20/22 07:28 11:15 Estim Creat Clear Calc 83.3 Estimated GFR > 60 POC Glucose 176 H Assessment and Plan (1) Cellulitis, scrotum: Status: Acute (2) Acute hyponatremia: Status: Acute (3) Acute diastolic CHF (congestive heart failure): Status: Acute Plan The patient is a 66 year old M with a PMH of alcohol abuse, anxiety, copd, DM, chronic HFpEF, HLD, HTN, obesity who presents to the ED after paramedics were called in by a friend. 1.Gram positive bacteremia (coag-negative staph) -contaminant; no need to treat -DC vancomycin 2. VRE -complete course of linezolid and as per ID 3. Poorly controlled DM -improving but not significantly -Continue basal insulin as outpatient -lispro correctional scale -adjust as indicated 3. Hyponatremia -improved with IV volume repletion -follow renal/divalents 4.EtOH -not in withdrawal at this time, will monitor with CIWA 5. Chronic HFpEF -well compensated at this time Full Code DVT pptx, Lovenox Patient requires continued hospitalization due to gram positive bacteremia without a definitive source awaiting placement Quality Stroke Does the patient have a stroke diagnosis?: No VTE Prior VTE?: No VTE Risk Level:: Medical - moderate - high VTE Device Contraindication: Treatment Not Indicated VTE Drug Contraindication: N/A - Med Ordered
[2022-03-20 16:13] LABS: Glucose, Whole Blood 165 mg/dL (60-115)
[2022-03-20] MEDS: Tamsulosin HCL 0.4 MG CAPSULE PO (16:38)
[2022-03-20] MEDS: Albuterol/Iprat 2.5/0.5MG 3 ML AMPUL.NEB INHALE (17:40)
[2022-03-20 17:41] VITALS: PULSE 83; RESP 20; O2SAT 95
--- NOTE | 2022-03-20 18:24 | PC.NURSE ---
this nurse absorbed pt from 7-3 nurse at 3:00. pt has refuses bed alarm, chair alarm, refuses to ring and wait for help. this nurse educated pt on safety - potential IV can be pulled out on accident and mccann can be pulled out on accident if pt gets tangled up/ trips over tubing. pt moves from recliner to bed without ringing call watters for assistance and repeatedly lays on top of IV tubing. pt also refuses to lay semi-bauman and complains of SOB, and can't breath. pt has been non-complaint with vitals and education on safety. pt refuses to ring and yells out for assistance and occasionally yells at staff.
[2022-03-20] MEDS: Thiamine HCL 100 MG TABLET PO (21:33)
[2022-03-20] MEDS: Atorvastatin Calcium 10 MG TABLET PO (21:33)
[2022-03-20] MEDS: Aspirin Enteric Coated 81 MG TABLET.DR PO (21:33)
[2022-03-20 21:42] LABS: Glucose, Whole Blood 258 mg/dL (60-115)
[2022-03-20] MEDS: Insulin Glargine,Hum.rec.anlog 100 UNIT/ML 10 ML VIAL 45 UNIT SUBCUT (21:54)
[2022-03-21 03:58] VITALS: BP 120/62; PULSE 100; RESP 17; TEMP 36.4; O2SAT 96
[2022-03-21] MEDS: Linezolid/D5W 600 MG/300 ML PIGGYBACK 300 MG IV ×2 (05:14→17:02)
[2022-03-21] MEDS: Omeprazole 20 MG CAPSULE.DR PO ×2 (05:15→17:01)
[2022-03-21] MEDS: Albuterol/Iprat 2.5/0.5MG 3 ML AMPUL.NEB INHALE ×2 (05:57→17:13)
[2022-03-21 05:58] VITALS: PULSE 88; RESP 17; O2SAT 96
[2022-03-21 06:12] LABS: Creatinine Clr Calc Pharmacy 94.7; Estimated Glomerular Filt Rate > 60
[2022-03-21 07:27] LABS: Glucose, Whole Blood 127 mg/dL (60-115)
[2022-03-21] MEDS: busPIRone HCl 5 MG TABLET PO ×2 (07:42→20:21)
[2022-03-21] MEDS: Multivitamin TABLET 1 TAB PO (07:43)
[2022-03-21] MEDS: 0.9 % Sodium Chloride Flush 3 ML SYRINGE IVFLUSH ×3 (07:43→20:21)
[2022-03-21] MEDS: Gabapentin 300 MG CAPSULE 600 MG PO ×3 (07:43→20:20)
[2022-03-21] MEDS: Folic Acid 1 MG TABLET PO (07:43)
[2022-03-21] MEDS: Nystatin Powder 15 GM BOTTLE 1 APPL TOPICAL ×2 (07:43→20:22)
[2022-03-21 08:00] VITALS: BP 90/44; PULSE 86; RESP 17; TEMP 36.7; O2SAT 93
[2022-03-21 11:10] LABS: Glucose, Whole Blood 179 mg/dL (60-115)
[2022-03-21] MEDS: Enoxaparin Sodium 40 MG/0.4 ML SYRINGE SUBCUT (12:01)
[2022-03-21] MEDS: Insulin Lispro 100 UNIT/ML 3 ML VIAL SUBCUT ×2 (12:01→20:32)
--- NOTE | 2022-03-21 14:27 | HO.PM.IMPN ---
Subjective Subjective Date of Service: 03/21/22 Interval History: Feels better today... grumpy at times Review of Systems Denies chest pain Denies shortness of breath Denies nausea vomiting diarrhea Denies fever chills Physical Exam Vital Signs: Vital Signs: Last Vital Signs Temp 98.0 F 03/21/22 08:00 Pulse 86 03/21/22 08:00 Resp 17 03/21/22 08:00 BP 90/44 L 03/21/22 08:00 Pulse Ox 93 03/21/22 08:00 O2 Del Method 03/21/22 08:00 O2 Flow Rate 2 03/16/22 08:27 BMI result Body Mass Index 32.8 Const: Other: Awake alert mildly agitated at baseline Resp: Other: Clear to auscultation bilaterally. No rales rhonchi or wheezes Cardio: Other: No S4; positive S1-S2; no S3 murmurs rubs or gallops : Other: Scrotum erythematous and warm Extrem: Other: No edema bilaterally Objective Data Active Medications Acetaminophen (Acetaminophen 325 Mg Tablet) 650 mg PO Q6H PRN PRN Reason: Pain, Mild (Pain Scale 1-3) Last Admin: 03/20/22 10:40 Dose: 650 mg Documented By: JONATHAN Albuterol/Ipratropium (Albuterol/Iprat 2.5/0.5mg 3 Ml Ampul.Neb) 3 ml INHALE RQ6H PRN PRN Reason: Wheezing Last Admin: 03/21/22 05:57 Dose: 3 ml Documented By: LORRAINE Aspirin (Aspirin Enteric Coated 81 Mg Tablet.) 81 mg PO BEDTIME [facility] Last Admin: 03/20/22 21:33 Dose: 81 mg Documented By: MARIANELA Atorvastatin Calcium (Atorvastatin Calcium 10 Mg Tablet) 10 mg PO BEDTIME [facility] Last Admin: 03/20/22 21:33 Dose: 10 mg Documented By: MARIANELA Buspirone HCl (Buspirone Hcl 5 Mg Tablet) 5 mg PO BID [facility] Last Admin: 03/21/22 07:42 Dose: 5 mg Documented By: SHERRI Enoxaparin Sodium (Enoxaparin Sodium 40 Mg/0.4 Ml Syringe) 40 mg SUBCUT Q24H [facility] Last Admin: 03/21/22 12:01 Dose: 40 mg Documented By: SHERRI Folic Acid (Folic Acid 1 Mg Tablet) 1 mg PO DAILY [facility] Last Admin: 03/21/22 07:43 Dose: 1 mg Documented By: SHERRI Gabapentin (Gabapentin 300 Mg Capsule) 600 mg PO TID [facility] Last Admin: 03/21/22 07:43 Dose: 600 mg Documented By: SHERRI Linezolid (Zyvox/D5w) 600 mg in 300 mls @ 300 mls/hr IV Q12H [facility] Last Infusion: 03/21/22 07:08 Dose: 300 mls/hr Documented By: LICHA Insulin Glargine (Insulin Glargine,Hum.Rec.Anlog 100 Unit/Ml 10 Ml Vial) 45 unit SUBCUT BEDTIME [facility] Last Admin: 03/20/22 21:54 Dose: 45 unit Documented By: MARIANELA Insulin Human Lispro (Insulin Lispro 100 Unit/Ml 3 Ml Vial) 0 unit SUBCUT QIDACHS [facility]; Protocol Last Admin: 03/21/22 12:01 Dose: 2 unit Documented By: SHERRI Multivitamins/Vitamin C (Multivitamin Tablet) 1 tab PO DAILY [facility] Last Admin: 03/21/22 07:43 Dose: 1 tab Documented By: SHERRI Nystatin (Nystatin Powder 15 Gm Bottle) 1 appl TOPICAL BID [facility]; Protocol Last Admin: 03/21/22 07:43 Dose: 1 appl Documented By: SHERRI Omeprazole (Omeprazole 20 Mg Capsule.Dr) 20 mg PO BID@0630,1630 [facility] Last Admin: 03/21/22 05:15 Dose: 20 mg Documented By: MARIANELA Ondansetron HCl (Ondansetron Hcl 4 Mg/2 Ml Vial) 4 mg IVPUSH Q8H PRN PRN Reason: Nausea and Vomiting Pharmacy Consult (Consult Rx Vancomycin Dosing) 1 each MISCELLANE DAILY PRN PRN Reason: Consult order Sodium Chloride (0.9 % Sodium Chloride Flush 3 Ml Syringe) 3 ml IVFLUSH QSHIFT [facility] Last Admin: 03/21/22 07:43 Dose: 3 ml Documented By: SHERRI Tamsulosin HCl (Tamsulosin Hcl 0.4 Mg Capsule) 0.4 mg PO DAILY@1700 [facility] Last Admin: 03/20/22 16:38 Dose: 0.4 mg Documented By: ROLDAN Thiamine HCl (Thiamine Hcl 100 Mg Tablet) 100 mg PO BEDTIME [facility] Last Admin: 03/20/22 21:33 Dose: 100 mg Documented By: MARIANELA Labs CBC & Chem 7: 03/19/22 09:54 03/21/22 05:24 Labs: Laboratory Results - last 24 hr 03/20/22 03/20/22 03/21/22 16:02 21:37 05:24 Estim Creat Clear Calc 94.7 Estimated GFR > 60 POC Glucose 165 H 258 H 03/21/22 03/21/22 07:16 11:00 Estim Creat Clear Calc Estimated GFR POC Glucose 127 H 179 H Assessment and Plan (1) Cellulitis, scrotum: Status: Acute (2) DMII (diabetes mellitus, type 2): Status: Acute Plan The patient is a 66 year old M with a PMH of alcohol abuse, anxiety, copd, DM, chronic HFpEF, HLD, HTN, obesity who presents to the ED after paramedics were called in by a friend. 1. VRE/Cellulitis scrotom -complete course of linezolid and as per ID 2. Poorly controlled DM -improving but not significantly -Continue basal insulin as outpatient -lispro correctional scale -adjust as indicated 3. Hyponatremia -improved with IV volume repletion -follow renal/divalents 4.EtOH -not in withdrawal at this time, will monitor with CIWA 5. Chronic HFpEF -well compensated at this time Full Code DVT pptx, Lovenox Patient requires continued hospitalization due to gram positive bacteremia without a definitive source awaiting placement Quality Stroke Does the patient have a stroke diagnosis?: No VTE Prior VTE?: No VTE Risk Level:: Medical - moderate - high VTE Device Contraindication: Treatment Not Indicated VTE Drug Contraindication: N/A - Med Ordered
--- NOTE | 2022-03-21 15:42 | PC.NURSE ---
patient has been refusing VS and POC. Md Nguyen made aware.
[2022-03-21] MEDS: Tamsulosin HCL 0.4 MG CAPSULE PO (17:01)
[2022-03-21 17:13] VITALS: PULSE 87; RESP 20; O2SAT 95
[2022-03-21] MEDS: Thiamine HCL 100 MG TABLET PO (20:20)
[2022-03-21] MEDS: Aspirin Enteric Coated 81 MG TABLET.DR PO (20:20)
[2022-03-21] MEDS: Atorvastatin Calcium 10 MG TABLET PO (20:20)
[2022-03-21 20:23] LABS: Glucose, Whole Blood 227 mg/dL (60-115)
[2022-03-21] MEDS: Insulin Glargine,Hum.rec.anlog 100 UNIT/ML 10 ML VIAL 45 UNIT SUBCUT (20:33)
[2022-03-21 21:42] VITALS: BP 126/65
[2022-03-22] MEDS: Linezolid/D5W 600 MG/300 ML PIGGYBACK 300 MG IV ×2 (04:49→16:20)
[2022-03-22] MEDS: Omeprazole 20 MG CAPSULE.DR PO ×2 (04:49→16:19)
[2022-03-22 07:37] LABS: Glucose, Whole Blood 150 mg/dL (60-115)
[2022-03-22 08:00] VITALS: BP 144/57; PULSE 89; RESP 19; TEMP 36.6; O2SAT 97
[2022-03-22] MEDS: Folic Acid 1 MG TABLET PO (09:07)
[2022-03-22] MEDS: Multivitamin TABLET 1 TAB PO (09:07)
[2022-03-22] MEDS: busPIRone HCl 5 MG TABLET PO (09:07)
[2022-03-22] MEDS: Gabapentin 300 MG CAPSULE 600 MG PO ×2 (09:07→16:19)
[2022-03-22] MEDS: 0.9 % Sodium Chloride Flush 3 ML SYRINGE IVFLUSH ×3 (09:08→21:13)
[2022-03-22] MEDS: Nystatin Powder 15 GM BOTTLE 1 APPL TOPICAL (09:10)
[2022-03-22 11:01] LABS: Hematocrit 34.9 % (42.0-52.0); Hemoglobin 11.2 g/dl (14.0-18.0); Mean Corpuscular HGB Conc 32.1 g/dl (31.0-36.0); Mean Corpuscular Hemoglobin 29.8 pg (27.0-33.0); Mean Corpuscular Volume 92.8 fL (80.0-98.0); Red Blood Count 3.76 X10*6/uL (4.60-5.80); Red Cell Distribution Width 14.6 % (11.0-16.0); White Blood Count 4.1 X10*3/uL (4.8-10.8)
[2022-03-22 11:02] LABS: Mean Platelet Volume 8.1 fL (9.4-12.4); Platelet Count 171 X10*3/uL (160-400)
[2022-03-22 11:21] LABS: Creatinine Clr Calc Pharmacy 80.8; Estimated Glomerular Filt Rate > 60
[2022-03-22 11:24] LABS: Anion Gap 15 (12-20); Blood Urea Nitrogen 12 mg/dL (9-16); C Reactive Protein 3.16 mg/dL (< or = 0.50); Calcium 7.7 mg/dL (8.4-10.2); Carbon Dioxide 25 mmol/L (22-29); Chloride 99 mmol/L (96-108); Creatinine Clr Calc Pharmacy 78.5; Estimated Glomerular Filt Rate > 60; Glucose Random 183 mg/dL (60-115); Potassium 4.4 mmol/L (3.3-5.1); Sodium 135 mmol/L (135-145)
[2022-03-22 11:29] LABS: B Type Natriuretic Peptide 362 pg/mL (<100)
[2022-03-22 11:39] LABS: Glucose, Whole Blood 179 mg/dL (60-115)
[2022-03-22] MEDS: Insulin Lispro 100 UNIT/ML 3 ML VIAL SUBCUT ×2 (12:15→21:13)
[2022-03-22] MEDS: Enoxaparin Sodium 40 MG/0.4 ML SYRINGE SUBCUT (12:15)
--- NOTE | 2022-03-22 12:56 | HO.PM.IMPN ---
Subjective Subjective Date of Service: 03/22/22 Interval History: c/o dyspnea/wheeze redness of scrotum improved Review of Systems Review of Systems: Yes all other systems are reviewed and are negative Physical Exam Vital Signs: Vital Signs: Last Vital Signs Temp 97.8 F 03/22/22 08:00 Pulse 89 03/22/22 08:00 Resp 19 03/22/22 08:00 BP 144/57 H 03/22/22 08:00 Pulse Ox 97 03/22/22 08:00 O2 Del Method 03/22/22 08:00 O2 Flow Rate 2 03/16/22 08:27 BMI result Body Mass Index 32.8 Gen: in no acute distress HEENT: sclera anicteric, moist mucus membranes Neck: supple Lungs: expiratory wheezing Heart: regular rate and rhythm, no murmurs Abd: soft, non-tender, non-distended Ext: no edema Skin: redness of scrotum Neuro: alert and oriented x3, no focal findings Psych: appropriate affect Objective Data Active Medications Acetaminophen (Acetaminophen 325 Mg Tablet) 650 mg PO Q6H PRN PRN Reason: Pain, Mild (Pain Scale 1-3) Last Admin: 03/20/22 10:40 Dose: 650 mg Documented By: JONATHAN Albuterol Sulfate (Albuterol Sulfate 90 Mcg 8 Gm Inhaler) 2 puff INHALE RQ4H PRN PRN Reason: dyspnea/wheeze Albuterol/Ipratropium (Albuterol/Iprat 2.5/0.5mg 3 Ml Ampul.Neb) 3 ml INHALE RQ6H PRN PRN Reason: Wheezing Last Admin: 03/21/22 17:13 Dose: 3 ml Documented By: JENIFFER Aspirin (Aspirin Enteric Coated 81 Mg Tablet.Dr) 81 mg PO BEDTIME [facility] Last Admin: 03/21/22 20:20 Dose: 81 mg Documented By: MARIANELA Atorvastatin Calcium (Atorvastatin Calcium 10 Mg Tablet) 10 mg PO BEDTIME [facility] Last Admin: 03/21/22 20:20 Dose: 10 mg Documented By: MARIANELA Buspirone HCl (Buspirone Hcl 5 Mg Tablet) 5 mg PO BID [facility] Last Admin: 03/22/22 09:07 Dose: 5 mg Documented By: SHERRI Enoxaparin Sodium (Enoxaparin Sodium 40 Mg/0.4 Ml Syringe) 40 mg SUBCUT Q24H [facility] Last Admin: 03/22/22 12:15 Dose: 40 mg Documented By: SHERRI Folic Acid (Folic Acid 1 Mg Tablet) 1 mg PO DAILY [facility] Last Admin: 03/22/22 09:07 Dose: 1 mg Documented By: SHERRI Gabapentin (Gabapentin 300 Mg Capsule) 600 mg PO TID [facility] Last Admin: 03/22/22 09:07 Dose: 600 mg Documented By: SHERRI Linezolid (Zyvox/D5w) 600 mg in 300 mls @ 300 mls/hr IV Q12H [facility] Last Infusion: 03/22/22 06:25 Dose: 0 mls/hr Documented By: MARIANELA Insulin Glargine (Insulin Glargine,Hum.Rec.Anlog 100 Unit/Ml 10 Ml Vial) 45 unit SUBCUT BEDTIME [facility] Last Admin: 03/21/22 20:33 Dose: 45 unit Documented By: MARIANELA Insulin Human Lispro (Insulin Lispro 100 Unit/Ml 3 Ml Vial) 0 unit SUBCUT QIDACHS [facility]; Protocol Last Admin: 03/22/22 12:15 Dose: 2 unit Documented By: SHERRI Multivitamins/Vitamin C (Multivitamin Tablet) 1 tab PO DAILY [facility] Last Admin: 03/22/22 09:07 Dose: 1 tab Documented By: SHERRI Nystatin (Nystatin Powder 15 Gm Bottle) 1 appl TOPICAL BID [facility]; Protocol Last Admin: 03/22/22 09:10 Dose: 1 appl Documented By: SHERRI Omeprazole (Omeprazole 20 Mg Gregg.) 20 mg PO BID@0630,1630 [facility] Last Admin: 03/22/22 04:49 Dose: 20 mg Documented By: MARIANELA Ondansetron HCl (Ondansetron Hcl 4 Mg/2 Ml Vial) 4 mg IVPUSH Q8H PRN PRN Reason: Nausea and Vomiting Pharmacy Consult (Consult Rx Vancomycin Dosing) 1 each MISCELLANE DAILY PRN PRN Reason: Consult order Sodium Chloride (0.9 % Sodium Chloride Flush 3 Ml Syringe) 3 ml IVFLUSH QSHIFT [facility] Last Admin: 03/22/22 09:08 Dose: 3 ml Documented By: SHERRI Tamsulosin HCl (Tamsulosin Hcl 0.4 Mg Capsule) 0.4 mg PO DAILY@1700 [facility] Last Admin: 03/21/22 17:01 Dose: 0.4 mg Documented By: SHERRI Thiamine HCl (Thiamine Hcl 100 Mg Tablet) 100 mg PO BEDTIME [facility] Last Admin: 03/21/22 20:20 Dose: 100 mg Documented By: ANAYELIORALB Labs CBC & Chem 7: 03/22/22 10:47 03/22/22 10:47 Labs: Laboratory Results - last 24 hr 03/21/22 03/22/22 03/22/22 20:17 07:25 10:47 MCV MCH MCHC RDW Plt Count MPV Absolute Nucleated RBC Nucleated RBC % (auto) Anion Gap Estim Creat Clear Calc 80.8 Estimated GFR > 60 POC Glucose 227 H 150 H Random Glucose Calcium C-Reactive Protein B-Natriuretic Peptide 03/22/22 03/22/22 03/22/22 10:47 10:47 10:48 MCV 92.8 MCH 29.8 MCHC 32.1 RDW 14.6 Plt Count 171 MPV 8.1 L Absolute Nucleated RBC 0.000 Nucleated RBC % (auto) 0.0 Anion Gap 15 Estim Creat Clear Calc 78.5 Estimated GFR > 60 POC Glucose Random Glucose 183 H Calcium 7.7 L C-Reactive Protein 3.16 H B-Natriuretic Peptide 362 H 03/22/22 11:11 MCV MCH MCHC RDW Plt Count MPV Absolute Nucleated RBC Nucleated RBC % (auto) Anion Gap Estim Creat Clear Calc Estimated GFR POC Glucose 179 H Random Glucose Calcium C-Reactive Protein B-Natriuretic Peptide Assessment and Plan (1) Cellulitis, scrotum: Status: Acute (2) DMII (diabetes mellitus, type 2): Status: Acute Plan d#7 66yo M with DM2, COPD, HFpEF, alcohol abuse, anxiety, HTN, HLD admited for scrotal cellulitis # scrotal cellulitis - on linezolid d#6. ID consulted- f/u recommendations. Not bacteremic- grew coag-neg staph and diphtheroids. # dyspnea - CXR, BNP # chronic HFpEF - not on meds, appears euvolemic # COPD - prn bronchodilators # DM2 - basal/bolus insulin, A1c # hypoNa, hypovolemic - resolved s/p IV fluids # EtOH abuse - no signs of withdrawal - continue thiamine, folate # VTE ppx: LMWH In my clinical judgment, the patient requires continued inpatient hospitalization for the following reasons: IV ABX Quality Stroke Does the patient have a stroke diagnosis?: No VTE Prior VTE?: No VTE Risk Level:: Medical - moderate - high VTE Device Contraindication: Treatment Not Indicated VTE Drug Contraindication: N/A - Med Ordered
[2022-03-22] MEDS: Tamsulosin HCL 0.4 MG CAPSULE PO (16:19)
[2022-03-22] MEDS: Albuterol/Iprat 2.5/0.5MG 3 ML AMPUL.NEB INHALE (16:23)
[2022-03-22 16:25] VITALS: PULSE 86; RESP 20; O2SAT 95
[2022-03-22 21:07] LABS: Glucose, Whole Blood 209 mg/dL (60-115)
[2022-03-22] MEDS: Insulin Glargine,Hum.rec.anlog 100 UNIT/ML 10 ML VIAL 45 UNIT SUBCUT (21:14)
--- NOTE | 2022-03-22 21:15 | PC.NURSE ---
Patient refused scheduled evening medications, 2 nd attempt. will reattempt in 10 minutes.
--- NOTE | 2022-03-22 21:40 | PC.NURSE ---
Pt refused medication on third attempt, education given.
[2022-03-23] VITALS: BP 118/58; PULSE 80; RESP 18; TEMP 36.4; O2SAT 98
[2022-03-23] MEDS: Omeprazole 20 MG CAPSULE.DR PO ×2 (04:46→16:17)
[2022-03-23] MEDS: Linezolid/D5W 600 MG/300 ML PIGGYBACK 300 MG IV (04:46)
[2022-03-23] MEDS: Albuterol/Iprat 2.5/0.5MG 3 ML AMPUL.NEB INHALE (05:26)
[2022-03-23 05:27] VITALS: PULSE 86; RESP 16; O2SAT 98
[2022-03-23 07:27] LABS: Glucose, Whole Blood 117 mg/dL (60-115)
[2022-03-23 07:37] VITALS: BP 115/62; PULSE 89; RESP 15; TEMP 36.6; O2SAT 96
[2022-03-23 08:09] LABS: Estimated Average Glucose 180 mg/dL; Hemoglobin A1c % 7.9 %
[2022-03-23] MEDS: Folic Acid 1 MG TABLET PO (08:09)
[2022-03-23] MEDS: Multivitamin TABLET 1 TAB PO (08:09)
[2022-03-23] MEDS: busPIRone HCl 5 MG TABLET PO ×2 (08:09→20:58)
[2022-03-23] MEDS: Gabapentin 300 MG CAPSULE 600 MG PO ×3 (08:09→20:58)
[2022-03-23] MEDS: Albuterol Sulfate 90 MCG 8 GM INHALER 2 PUFF INHALE ×2 (08:13→10:16)
--- NOTE | 2022-03-23 08:14 | PC.NURSE ---
patient feels SOB, and weakness. SOB at rest. Albuterol given. Patient states he doesnt feel he is well enough to be discharged to rehab today.
[2022-03-23] MEDS: Acetaminophen 325 MG TABLET 650 MG PO (09:11)
[2022-03-23] MEDS: methylPREDNISolone Sod Succ 125 MG/2 ML VIAL IVPUSH (10:16)
[2022-03-23] MEDS: 0.9 % Sodium Chloride Flush 3 ML SYRINGE IVFLUSH ×4 (10:17→23:37)
[2022-03-23] MEDS: Nystatin Powder 15 GM BOTTLE 1 APPL TOPICAL ×2 (10:20→21:01)
--- NOTE | 2022-03-23 11:09 | P.PNIM_ITS ---
Subjective Subjective Date of Service: 03/23/22 Interval History: c/o weakness, dyspnea + wheezing scrotal redness improved Review of Systems Review of Systems: Yes all other systems are reviewed and are negative Physical Exam Vital Signs: Vital Signs: Last Vital Signs Temp 97.8 F 03/23/22 07:37 Pulse 89 03/23/22 07:37 Resp 15 03/23/22 07:37 BP 115/62 03/23/22 07:37 Pulse Ox 96 03/23/22 07:37 O2 Del Method 03/23/22 07:37 O2 Flow Rate 2 03/16/22 08:27 BMI result Body Mass Index 32.8 Gen: in no acute distress HEENT: sclera anicteric, moist mucus membranes Neck: supple Lungs: expiratory wheezing Heart: regular rate and rhythm, no murmurs Abd: soft, non-tender, non-distended Ext: no edema Skin: redness of scrotum Neuro: alert and oriented x3, no focal findings Psych: appropriate affect Objective Data Active Medications Acetaminophen (Acetaminophen 325 Mg Tablet) 650 mg PO Q6H PRN PRN Reason: Pain, Mild (Pain Scale 1-3) Last Admin: 03/23/22 09:11 Dose: 650 mg Documented By: BRENDA Albuterol Sulfate (Albuterol Sulfate 90 Mcg 8 Gm Inhaler) 2 puff INHALE RQ4H PRN PRN Reason: dyspnea/wheeze Last Admin: 03/23/22 10:16 Dose: 2 puff Documented By: BRENDA Comments: ok to give early per MD via [employer] Albuterol/Ipratropium (Albuterol/Iprat 2.5/0.5mg 3 Ml Ampul.Neb) 3 ml INHALE RQ6H PRN PRN Reason: Wheezing Last Admin: 03/23/22 05:26 Dose: 3 ml Documented By: ANAYA Aspirin (Aspirin Enteric Coated 81 Mg Tablet.) 81 mg PO BEDTIME [facility] Last Admin: 03/22/22 22:13 Dose: Not Given Documented By: MARIANELA Non-Admin Reason: Patient Refused Atorvastatin Calcium (Atorvastatin Calcium 10 Mg Tablet) 10 mg PO BEDTIME [facility] Last Admin: 03/22/22 22:13 Dose: Not Given Documented By: MARIANELA Non-Admin Reason: Patient Refused Buspirone HCl (Buspirone Hcl 5 Mg Tablet) 5 mg PO BID [facility] Last Admin: 03/23/22 08:09 Dose: 5 mg Documented By: BRENDA Enoxaparin Sodium (Enoxaparin Sodium 40 Mg/0.4 Ml Syringe) 40 mg SUBCUT Q24H [facility] Last Admin: 03/22/22 12:15 Dose: 40 mg Documented By: SHERRI Folic Acid (Folic Acid 1 Mg Tablet) 1 mg PO DAILY [facility] Last Admin: 03/23/22 08:09 Dose: 1 mg Documented By: BRENDA Gabapentin (Gabapentin 300 Mg Capsule) 600 mg PO TID [facility] Last Admin: 03/23/22 08:09 Dose: 600 mg Documented By: BRENDA Linezolid (Zyvox/D5w) 600 mg in 300 mls @ 300 mls/hr IV Q12H [facility] Last Infusion: 03/23/22 05:56 Dose: 0 mls/hr Documented By: MARIANELA Insulin Glargine (Insulin Glargine,Hum.Rec.Anlog 100 Unit/Ml 10 Ml Vial) 45 unit SUBCUT BEDTIME [facility] Last Admin: 03/22/22 21:14 Dose: 45 unit Documented By: MARIANELA Insulin Human Lispro (Insulin Lispro 100 Unit/Ml 3 Ml Vial) 0 unit SUBCUT QIDACHS [facility]; Protocol Last Admin: 03/23/22 07:31 Dose: Not Given Documented By: BRENDA Non-Admin Reason: No Insulin Coverage Methylprednisolone Sodium Succinate (Methylprednisolone Sod Succ 40 Mg/Ml Vial) 40 mg IVPUSH Q12H [facility] Multivitamins/Vitamin C (Multivitamin Tablet) 1 tab PO DAILY [facility] Last Admin: 03/23/22 08:09 Dose: 1 tab Documented By: BRENDA Nystatin (Nystatin Powder 15 Gm Bottle) 1 appl TOPICAL BID [facility]; Protocol Last Admin: 03/23/22 10:20 Dose: 1 appl Documented By: BRENDA Omeprazole (Omeprazole 20 Mg Capsule.) 20 mg PO BID@0630,1630 [facility] Last Admin: 03/23/22 04:46 Dose: 20 mg Documented By: MARIANELA Ondansetron HCl (Ondansetron Hcl 4 Mg/2 Ml Vial) 4 mg IVPUSH Q8H PRN PRN Reason: Nausea and Vomiting Pharmacy Consult (Consult Rx Vancomycin Dosing) 1 each MISCELLANE DAILY PRN PRN Reason: Consult order Sodium Chloride (0.9 % Sodium Chloride Flush 3 Ml Syringe) 3 ml IVFLUSH QSHIFT [facility] Last Admin: 03/23/22 10:17 Dose: 3 ml Documented By: BRENDA Tamsulosin HCl (Tamsulosin Hcl 0.4 Mg Capsule) 0.4 mg PO DAILY@1700 [facility] Last Admin: 03/22/22 16:19 Dose: 0.4 mg Documented By: SHERRI Thiamine HCl (Thiamine Hcl 100 Mg Tablet) 100 mg PO BEDTIME [facility] Last Admin: 03/22/22 22:13 Dose: Not Given Documented By: ANAYELIORALB Non-Admin Reason: Patient Refused Labs CBC & Chem 7: 03/22/22 10:47 03/22/22 10:47 Labs: Laboratory Results - last 24 hr 03/22/22 03/22/22 03/22/22 10:47 10:47 10:47 Anion Gap 15 Estim Creat Clear Calc 80.8 78.5 Estimated GFR > 60 > 60 POC Glucose Random Glucose 183 H Estimat Average Glucose 180 Hemoglobin A1c % 7.9 Calcium 7.7 L C-Reactive Protein 3.16 H B-Natriuretic Peptide 03/22/22 03/22/22 03/22/22 10:48 11:11 21:02 Anion Gap Estim Creat Clear Calc Estimated GFR POC Glucose 179 H 209 H Random Glucose Estimat Average Glucose Hemoglobin A1c % Calcium C-Reactive Protein B-Natriuretic Peptide 362 H 03/23/22 07:19 Anion Gap Estim Creat Clear Calc Estimated GFR POC Glucose 117 H Random Glucose Estimat Average Glucose Hemoglobin A1c % Calcium C-Reactive Protein B-Natriuretic Peptide Impressions Chest X-Ray 03/22/22 12:00 IMPRESSION: No radiographic evidence of acute infiltrates or failure. Assessment and Plan (1) Cellulitis, scrotum: Status: Acute (2) DMII (diabetes mellitus, type 2): Status: Acute Plan d#7 66yo M with DM2, COPD, HFpEF, alcohol abuse, anxiety, HTN, HLD admitted for scrotal cellulitis and initial concern of bacteremia # COPD acute exacerbation - start IV methylprednisolone; give prn bronchodilators; check respiratory pathogen panel # scrotal cellulitis - on linezolid d#7. ID consulted- f/u recommendations. Not bacteremic- grew coag-neg staph and diphtheroids. # chronic HFpEF - not on meds, appears euvolemic # DM2, A1c 7.9 - basal/bolus insulin # hypoNa, hypovolemic - resolved s/p IV fluids # EtOH abuse - no signs of withdrawal - continue thiamine, folate # VTE ppx: LMWH # dispo: anticipate STR In my clinical judgment, the patient requires continued inpatient hospitalization for the following reasons: IV ABX, COPD exacerbation Quality Stroke Does the patient have a stroke diagnosis?: No VTE Prior VTE?: No VTE Risk Level:: Medical - moderate - high VTE Device Contraindication: Treatment Not Indicated VTE Drug Contraindication: N/A - Med Ordered
[2022-03-23 11:12] VITALS: BP 92/53; PULSE 83; RESP 16; TEMP 36.8; O2SAT 97
--- NOTE | 2022-03-23 11:12 | PC.NURSE ---
PATIENT REFUSED LAB DRAW THIS MORNING FOR CREATININE DESPITE EDUCATION FROM LAB AND MYSELF>
[2022-03-23 11:17] LABS: Glucose, Whole Blood 225 mg/dL (60-115)
[2022-03-23] MEDS: Enoxaparin Sodium 40 MG/0.4 ML SYRINGE SUBCUT (12:05)
[2022-03-23] MEDS: Insulin Lispro 100 UNIT/ML 3 ML VIAL SUBCUT ×3 (12:08→20:58)
--- NOTE | 2022-03-23 12:52 | P.CDIC_ITS ---
CDI Concurrent Query Documentation Clarification: PHYSICIAN'S DOCUMENTATION REQUEST Date of Query: 03/23/22 1255 Patient Name: Kenneth Aragon Admit Date: 03/16/22 Dear Doctor, A review of the medical record indicates additional documentation may be needed. Please review below and update the documentation accordingly. Clinical Indicators: Is there a diagnosis that correlates with the findings below: Risk Factors/Clinical Indicators/Treatments POA/RESOLVED/TREAT Per provider note on 03/23: c/o weakness, dyspnea + wheezing PMH: chronic HFpEF Labs: BNP on 03/22: 362 Other indicators: -Patient intermittenly requiring O2 -Scrotal edema l Please provide further specificity regarding the most likely type and acuity of CHF you are evaluating, treating, or monitoring. Examples include: * Acute on chronic diastolic CHF * Chronic diastolic CHF * Other ? please specify * Unable to determine Use of terms such as suspected, likely, concern for, or probable (associated with a specific diagnosis that is being evaluated, monitored, or treated as if it exists) are acceptable and can be coded in the inpatient setting, when documented at the time of discharge. Thank you, Snow Sousa, MS, RN, CCRN Extension: [phone] Please use your independent medical judgment in providing your response. THIS QUERY IS PART OF THE PERMANENT MEDICAL RECORD Provider Response: Other Other Diagnosis: chronic hfpef, not acute
[2022-03-23 14:15] LABS: Adenovirus PCR Not Detected (Not Detect.); Bordetella parapertussis PCR Not Detected (Not Detect.); Bordetella pertussis PCR Not Detected (Not Detect.); Chlamydia pneumoniae PCR Not Detected (Not Detect.); Coronavirus 229E PCR Not Detected (Not Detect.); Coronavirus HKU1 PCR Not Detected (Not Detect.); Coronavirus NL63 PCR Not Detected (Not Detect.); Coronavirus OC43 PCR Not Detected (Not Detect.); Human metapneumovirus PCR Not Detected (Not Detect.); Influenza A PCR Not Detected (Not Detect.); Influenza B PCR Not Detected (Not Detect.); Mycoplasma pneumoniae PCR Not Detected (Not Detect.); Parainfluenza 1 PCR Not Detected (Not Detect.); Parainfluenza 2 PCR Not Detected (Not Detect.); Parainfluenza 3 PCR Not Detected (Not Detect.); Parainfluenza 4 PCR Not Detected (Not Detect.); RSV PCR Not Detected (Not Detect.); Rhino/Enterovirus PCR Not Detected (Not Detect.); SARS-CoV-2 PCR Not Detected (Not Detect.)
[2022-03-23] MEDS: Doxycycline Monohydrate 100 MG CAPSULE PO ×2 (14:20→23:37)
[2022-03-23 15:49] LABS: Glucose, Whole Blood 405 mg/dL (60-115)
[2022-03-23] MEDS: Tamsulosin HCL 0.4 MG CAPSULE PO (16:16)
[2022-03-23 19:10] VITALS: BP 138/65; PULSE 88; RESP 16; TEMP 36.1; O2SAT 94
[2022-03-23 19:49] LABS: Glucose, Whole Blood 376 mg/dL (60-115)
[2022-03-23] MEDS: Aspirin Enteric Coated 81 MG TABLET.DR PO (20:58)
[2022-03-23] MEDS: Atorvastatin Calcium 10 MG TABLET PO (20:58)
[2022-03-23] MEDS: methylPREDNISolone Sod Succ 40 MG/ML VIAL IVPUSH (20:58)
[2022-03-23] MEDS: Thiamine HCL 100 MG TABLET PO (20:58)
[2022-03-23] MEDS: Insulin Glargine,Hum.rec.anlog 100 UNIT/ML 10 ML VIAL 45 UNIT SUBCUT (20:59)
[2022-03-24] VITALS (7 sets, daily range): BP systolic 111–134; BP diastolic 51–79; PULSE 78–107; RESP 14–20; TEMP 36.2–36.8; O2SAT 94–100
--- NOTE | 2022-03-24 | ECG_ITS ---
Test Reason : ATYP CHEST PAIN Blood Pressure : / mmHG Vent. Rate : 088 BPM Atrial Rate : 088 BPM P-R Int : 162 ms QRS Dur : 082 ms QT Int : 334 ms P-R-T Axes : 061 017 077 degrees QTc Int : 404 ms Sinus rhythm with frequent Premature ventricular complexes Abnormal ECG When compared with ECG of 15-MAR-2022 19:04, Premature ventricular complexes are now Present QRS axis shifted Referred By: Nixon Ferreira Electronically Signed By:DUSTY VYAS MD
[2022-03-24] MEDS: Albuterol/Iprat 2.5/0.5MG 3 ML AMPUL.NEB INHALE (04:40)
[2022-03-24] MEDS: Omeprazole 20 MG CAPSULE.DR PO ×2 (05:05→16:40)
[2022-03-24] MEDS: methylPREDNISolone Sod Succ 40 MG/ML VIAL IVPUSH ×2 (05:05→16:40)
[2022-03-24 07:35] LABS: Glucose, Whole Blood 206 mg/dL (60-115)
[2022-03-24] MEDS: Insulin Lispro 100 UNIT/ML 3 ML VIAL SUBCUT ×3 (07:44→16:39)
[2022-03-24] MEDS: Gabapentin 300 MG CAPSULE 600 MG PO ×2 (07:45→16:40)
[2022-03-24] MEDS: Multivitamin TABLET 1 TAB PO (07:45)
[2022-03-24] MEDS: Folic Acid 1 MG TABLET PO (07:45)
[2022-03-24] MEDS: busPIRone HCl 5 MG TABLET PO (07:45)
[2022-03-24] MEDS: Nystatin Powder 15 GM BOTTLE 1 APPL TOPICAL (07:46)
[2022-03-24 11:23] LABS: Glucose, Whole Blood 335 mg/dL (60-115)
[2022-03-24] MEDS: 0.9 % Sodium Chloride Flush 3 ML SYRINGE IVFLUSH ×2 (11:45→16:40)
--- NOTE | 2022-03-24 13:00 | HO.PM.IMPN ---
Subjective Subjective Date of Service: 03/24/22 Interval History: C/o R-sided chest pain, wheezing No fever Review of Systems Review of Systems: Yes all other systems are reviewed and are negative Physical Exam Vital Signs: Vital Signs: Last Vital Signs Temp 97.6 F 03/24/22 12:00 Pulse 83 03/24/22 12:00 Resp 16 03/24/22 12:00 BP 119/79 03/24/22 12:00 Pulse Ox 95 03/24/22 12:00 O2 Del Method 03/24/22 12:00 O2 Flow Rate 1 03/24/22 00:00 BMI result Body Mass Index 32.8 Gen: in pain HEENT: sclera anicteric, moist mucus membranes Neck: supple Lungs: scattered exp wheezing Heart: regular rate and rhythm, no murmurs Chest: R-sided chest tenderness to palpation Abd: soft, non-tender, non-distended Ext: no edema Skin: scrotal erythema resolved Neuro: alert and oriented x3, no focal findings Psych: appropriate affect Objective Data Active Medications Acetaminophen (Acetaminophen 325 Mg Tablet) 650 mg PO Q6H PRN PRN Reason: Pain, Mild (Pain Scale 1-3) Last Admin: 03/23/22 09:11 Dose: 650 mg Documented By: BRENDA Albuterol Sulfate (Albuterol Sulfate 90 Mcg 8 Gm Inhaler) 2 puff INHALE RQ4H PRN PRN Reason: dyspnea/wheeze Last Admin: 03/23/22 10:16 Dose: 2 puff Documented By: BRENDA Comments: ok to give early per MD via [employer] Aspirin (Aspirin Enteric Coated 81 Mg Tablet.) 81 mg PO BEDTIME FORMERLY [facility], [facility] Last Admin: 03/23/22 20:58 Dose: 81 mg Documented By: RUBENS Atorvastatin Calcium (Atorvastatin Calcium 10 Mg Tablet) 10 mg PO BEDTIME FOR[facility]LY [facility], [facility]1983 Last Admin: 03/23/22 20:58 Dose: 10 mg Documented By: RUBENS Buspirone HCl (Buspirone Hcl 5 Mg Tablet) 5 mg PO BID FOR[facility], [facility]1983 Last Admin: 03/24/22 07:45 Dose: 5 mg Documented By: GIN Doxycycline Monohydrate (Doxycycline Monohydrate 100 Mg Capsule) 100 mg PO Q12H [facility], [facility]1983 Last Admin: 03/23/22 23:37 Dose: 100 mg Documented By: RUBENS Enoxaparin Sodium (Enoxaparin Sodium 40 Mg/0.4 Ml Syringe) 40 mg SUBCUT Q24H [facility], [facility]1983 Last Admin: 03/23/22 12:05 Dose: 40 mg Documented By: BRENDA Folic Acid (Folic Acid 1 Mg Tablet) 1 mg PO DAILY FOR[facility], [facility] Last Admin: 03/24/22 07:45 Dose: 1 mg Documented By: GIN Gabapentin (Gabapentin 300 Mg Capsule) 600 mg PO TID [facility], [facility] Last Admin: 03/24/22 07:45 Dose: 600 mg Documented By: GIN Insulin Glargine (Insulin Glargine,Hum.Rec.Anlog 100 Unit/Ml 10 Ml Vial) 48 unit SUBCUT BEDTIME [facility], [facility]–1983 Insulin Human Lispro (Insulin Lispro 100 Unit/Ml 3 Ml Vial) 0 unit SUBCUT QIDACHS [facility]LY [facility], [facility]; Protocol Last Admin: 03/24/22 11:46 Dose: 16 unit Documented By: JONATHAN Lidocaine (Lidocaine 4 % Patch Adh..Patch) 1 patch TRANSDERMA DAILY [facility], [facility]; Protocol Methylprednisolone Sodium Succinate (Methylprednisolone Sod Succ 40 Mg/Ml Vial) 40 mg IVPUSH Q12H [facility], [facility] Last Admin: 03/24/22 05:05 Dose: 40 mg Documented By: RUBENS Multivitamins/Vitamin C (Multivitamin Tablet) 1 tab PO DAILY [facility], [facility] Last Admin: 03/24/22 07:45 Dose: 1 tab Documented By: GIN Nystatin (Nystatin Powder 15 Gm Bottle) 1 appl TOPICAL BID [facility], [facility]; Protocol Last Admin: 03/24/22 07:46 Dose: 1 appl Documented By: GIN Omeprazole (Omeprazole 20 Mg Capsule.) 20 mg PO BID@0630,1630 [facility], [facility] Last Admin: 03/24/22 05:05 Dose: 20 mg Documented By: RUBENS Ondansetron HCl (Ondansetron Hcl 4 Mg/2 Ml Vial) 4 mg IVPUSH Q8H PRN PRN Reason: Nausea and Vomiting Pharmacy Consult (Consult Rx Vancomycin Dosing) 1 each MISCELLANE DAILY PRN PRN Reason: Consult order Sodium Chloride (0.9 % Sodium Chloride Flush 3 Ml Syringe) 3 ml IVFLUSH QSHIFT FOR[facility], [facility] Last Admin: 03/24/22 11:45 Dose: 3 ml Documented By: JONATHAN Tamsulosin HCl (Tamsulosin Hcl 0.4 Mg Capsule) 0.4 mg PO DAILY@1700 [facility], [facility] Last Admin: 03/23/22 16:16 Dose: 0.4 mg Documented By: JOSE Thiamine HCl (Thiamine Hcl 100 Mg Tablet) 100 mg PO BEDTIME [facility], [facility] Last Admin: 03/23/22 20:58 Dose: 100 mg Documented By: RUBENS Labs CBC & Chem 7: 03/22/22 10:47 03/22/22 10:47 Labs: Laboratory Results - last 24 hr 03/23/22 03/23/22 03/23/22 12:55 15:25 19:15 POC Glucose 405 H* 376 H* Respiratory Panel [place] See Note Adenovirus (Rapid PCR) Not Detected B.pert (TEM-PCR) Not Detected B.parapertussis DNA PCR Not Detected C. pneumoniae DNA (PCR) Not Detected Coronavirus OC43 (PCR) Not Detected Coronavirus HKU1 (PCR) Not Detected Coronavirus 229E (PCR) Not Detected Coronavirus NL63 (PCR) Not Detected Human Metapneumovir PCR Not Detected Influenza A (RT-PCR) Not Detected Influenza B (RT-PCR) Not Detected M. pneumoniae (PCR) Not Detected Parainfluenza 1 (PCR) Not Detected Parainfluenza 2 (PCR) Not Detected Parainfluenza 3 (PCR) Not Detected Parainfluenza 4 (PCR) Not Detected RSV (PCR) Not Detected Entero/Rhino (PCR) Not Detected SARS-CoV-2 RNA (RT-PCR) Not Detected 03/24/22 03/24/22 07:25 11:16 POC Glucose 206 H 335 H Respiratory Panel [place] Adenovirus (Rapid PCR) B.pert (TEM-PCR) B.parapertussis DNA PCR C. pneumoniae DNA (PCR) Coronavirus OC43 (PCR) Coronavirus HKU1 (PCR) Coronavirus 229E (PCR) Coronavirus NL63 (PCR) Human Metapneumovir PCR Influenza A (RT-PCR) Influenza B (RT-PCR) M. pneumoniae (PCR) Parainfluenza 1 (PCR) Parainfluenza 2 (PCR) Parainfluenza 3 (PCR) Parainfluenza 4 (PCR) RSV (PCR) Entero/Rhino (PCR) SARS-CoV-2 RNA (RT-PCR) Assessment and Plan (1) Cellulitis, scrotum: Status: Acute (2) DMII (diabetes mellitus, type 2): Status: Acute Plan d#8 66yo M with DM2, COPD, HFpEF, alcohol abuse, anxiety, HTN, HLD admitted for scrotal cellulitis and initial concern of bacteremia # atypical chest pain - check EKG, cycle troponins. suspect related to coughing/dyspnea from COPD. will treat COPD as below and place lidocaine patch # COPD acute exacerbation - d#2 IV methylprednisolone; give prn bronchodilators; respiratory pathogen panel negative # scrotal cellulitis - s/p 7d of linezolid, discussed with ID, change to doxycycline for another 7d. Not bacteremic- grew coag-neg staph and diphtheroids. # chronic HFpEF - not on meds, appears euvolemic # DM2, A1c 7.9 - basal/bolus insulin # hypoNa, hypovolemic - resolved s/p IV fluids # EtOH abuse - no signs of withdrawal - continue thiamine, folate # VTE ppx: LMWH # dispo: anticipate STR In my clinical judgment, the patient requires continued inpatient hospitalization for the following reasons: IV ABX, COPD exacerbation Quality Stroke Does the patient have a stroke diagnosis?: No VTE Prior VTE?: No VTE Risk Level:: Medical - moderate - high VTE Device Contraindication: Treatment Not Indicated VTE Drug Contraindication: N/A - Med Ordered
[2022-03-24] MEDS: Doxycycline Monohydrate 100 MG CAPSULE PO (13:19)
[2022-03-24 15:44] LABS: Troponin-I High Sensitivity 9.3 ng/L (<3.5-35.0)
[2022-03-24 15:59] LABS: Glucose, Whole Blood 359 mg/dL (60-115)
[2022-03-24] MEDS: Tamsulosin HCL 0.4 MG CAPSULE PO (16:40)
[2022-03-25 01:26] LABS: Glucose, Whole Blood 290 mg/dL (60-115)
--- NOTE | 2022-03-25 02:51 | MHC.PIE ---
p; pt refused poc at 2100. multiple attempts made with no result. pt refused any cares, vs and meds. pt also yelling out for help yet staff or this automobile service writer goes into room, pt refusing any help and yelling at staff to get out . after multiple attempts, pt finally agree to poc at 0120 with poc at 290. i; dr manuel notified e; will cont to monitor
[2022-03-25] MEDS: Omeprazole 20 MG CAPSULE.DR PO ×2 (04:19→17:23)
[2022-03-25] MEDS: methylPREDNISolone Sod Succ 40 MG/ML VIAL IVPUSH (04:19)
[2022-03-25] MEDS: Doxycycline Monohydrate 100 MG CAPSULE PO ×2 (04:51→13:17)
[2022-03-25 07:26] VITALS: BP 123/61; PULSE 92; RESP 18; TEMP 36; O2SAT 97
[2022-03-25] MEDS: Gabapentin 300 MG CAPSULE 600 MG PO ×2 (07:41→14:45)
[2022-03-25] MEDS: Multivitamin TABLET 1 TAB PO (07:41)
[2022-03-25] MEDS: busPIRone HCl 5 MG TABLET PO (07:42)
[2022-03-25] MEDS: 0.9 % Sodium Chloride Flush 3 ML SYRINGE IVFLUSH (07:42)
[2022-03-25] MEDS: Folic Acid 1 MG TABLET PO (07:42)
[2022-03-25] MEDS: Nystatin Powder 15 GM BOTTLE 1 APPL TOPICAL (07:45)
[2022-03-25] MEDS: Insulin Lispro 100 UNIT/ML 3 ML VIAL SUBCUT ×3 (07:47→17:23)
[2022-03-25 07:51] LABS: Glucose, Whole Blood 262 mg/dL (60-115)
[2022-03-25 11:28] VITALS: BP 128/62; PULSE 95; RESP 18; TEMP 36.3; O2SAT 96
[2022-03-25 11:34] LABS: Glucose, Whole Blood 383 mg/dL (60-115)
[2022-03-25] MEDS: Enoxaparin Sodium 40 MG/0.4 ML SYRINGE SUBCUT (11:46)
--- NOTE | 2022-03-25 12:47 | MHC.CM.PN ---
Meet with patient re: plan to d/c today @ 4PM to [facility]. Pt stating he does not want to go home or [facility] despite it being the only bed offer. He also refused to appeal d/c and then agreed to d/c to [facility] @ 4PM. aware, RN aware. Pt refused to sign IMM.
[2022-03-25] MEDS: Benzonatate 100 MG CAPSULE 200 MG PO (13:17)
[2022-03-25] MEDS: guaiFENesin DM 100/10/5 ML 5 ML SYRUP PO (13:17)
[2022-03-25] MEDS: Albuterol Sulfate 90 MCG 8 GM INHALER 2 PUFF INHALE (13:20)
[2022-03-25 14:02] LABS: COVID-19 Test Negative (Negative); IDNOW Serial# BCCEAD1C
--- NOTE | 2022-03-25 14:54 | PM.DS ---
DS: Providers Provider Date of Service: 03/25/22 Date of admission: 03/16/22 11:07 Date of discharge: 03/25/22 Primary care physician: Jaylen Cummings MD Consults: 03/17/22 10:13 Consult to Infectious Diseases Routine Consulting Provider: Zeina Prado Reason for consultation: gram positive bacteremia; groin fungal / bacterial rash/cellulitis DS: Diagnosis Discharge Diagnosis (1) Cellulitis, scrotum: Status: Acute (2) DMII (diabetes mellitus, type 2): Status: Acute (3) COPD exacerbation: Status: Acute DS: Summary Hospital Course Hospital Course: from admission H+P by hospitalist Mike Palmer, 03/16/22: The patient is a 66 year old M with a PMH of alcohol abuse, anxiety, copd, DM, chronic HFpEF, HLD, HTN, obesity who presents to the ED after paramedics were called in by a friend. The patient is not very forthcoming with his history and states he noticed a groin/scrotal rash for about the last 1 week. He denies any fever or chills. Does not answer questions regarding his alcohol intake recently. He states he just wants his rash to be treated. He denies any current chest pain, shortness of breath or cough. In the ED, the patient was noted to be hyponatremic and in milld DKA. He was treated with IV insulin and IV fluids. Evaluation of his rash including a CT scan and surgical consult for concern over yulia's gangrene. THe patients CT scan is negative for evidence of yulia's. He was given a of IV zosyn and will be now admitted for further care. 66yo M with DM2, COPD, HFpEF, alcohol abuse, anxiety, HTN, HLD admitted for scrotal cellulitis and initial concern of bacteremia but ultimately blood cultures grew contaimants [diphtheroids and coagulase-negative staphylococcus]. Infectious Diseases was consulted and he was treated with 7 days of IV linezolid then transitioned to 7 days of PO doxycycline, 6 days of which remain upon discharge. He develoepd COPD exacerbation without hypoxia or pneumonia and was treated with steroid taper. Respiratory pathogen panel was negative. He had musculoskeletal chest pain due to coughing from the COPD exacerbation and lidocaine patch was ordered. He has history of HFpEF but did not have decompensated HF during this admission. Due to weakness, he was discharged to a SNF for short-term rehabilitation. Time Spent with Patient Time attestation: Total time spent providing and/or coordinating discharge services: 35 Discharge coordination time: Greater than 30 minutes Quality: Safe Use of Opioids Does Pt have an Active Cancer Diagnosis on the Problem List?: No Quality: Stroke Does the patient have a stroke diagnosis?: No Physical Exam Vital Signs: Vital Signs: Last Vital Signs Temp 97.3 F 03/25/22 11:28 Pulse 95 03/25/22 11:28 Resp 18 03/25/22 11:28 BP 128/62 03/25/22 11:28 Pulse Ox 96 03/25/22 11:28 O2 Del Method 03/25/22 11:28 O2 Flow Rate 1 03/24/22 00:00 BMI result Body Mass Index 32.8 Gen: NAD HEENT: sclera anicteric, moist mucus membranes Neck: supple Lungs: clear bilaterally Heart: regular rate and rhythm, no murmurs Chest: R-sided chest tenderness to palpation Abd: soft, non-tender, non-distended Ext: no edema Skin: scrotal erythema resolved Neuro: alert and oriented x3, no focal findings Psych: appropriate affect ? DS: Data Data Completed and Pending Completed studies during hospitalization [Text1]: Procedures Detoxification Services for Substance Abuse Treatment (06/22/21) Insertion of Endotracheal Airway into Trachea, Via Natural or Artificial Opening Endoscopic (08/03/21) Insertion of Infusion Device into Lower Vein, Percutaneous Approach (08/03/21) Insertion of Infusion Device into Right Femoral Vein, Percutaneous Approach (08/03/21) Insertion of Infusion Device into Superior Vena Cava, Percutaneous Approach (08/03/21) Insertion of Infusion Device into Upper Vein, Percutaneous Approach (07/21/21) Introduction of Remdesivir Anti-infective into Peripheral Vein, Percutaneous Approach, [employer] (06/01/21) Introduction of Vasopressor into Peripheral Vein, Percutaneous Approach (08/03/21) Performance of Urinary Filtration, Intermittent, Less than 6 Hours Per Day (08/03/21) Removal of Infusion Device from Lower Vein, Percutaneous Approach (08/03/21) Respiratory Ventilation, Less than 24 Consecutive Hours (08/03/21) Ultrasonography of Superior Vena Cava, Guidance (08/03/21) Labs on day of discharge: Laboratory Results - last 24 hr 03/24/22 03/24/22 03/25/22 14:52 15:54 01:21 POC Glucose 359 H* 290 H Troponin I High Sens 9.3 D COVID-19 ([facility]) COVID-19 Clin Com 03/25/22 03/25/22 03/25/22 07:26 11:26 13:10 POC Glucose 262 H 383 H* Troponin I High Sens COVID-19 ([facility]) Negative COVID-19 Clin Com See Note Discharge Plan Discharge Anticipated Discharge Date/Time: 03/25/22 14:44 Patient Disposition: Xfer SNF Discharge Diagnosis: scrotal cellulitis COPD exacerbation Referrals: Name,MD Jaylen [Primary Care Provider] - 1 Week Discharge Medications: New benzonatate 100 mg Capsule 200 mg PO TID PRN (Reason: cough) Qty: 20 0RF doxycycline monohydrate 100 mg Capsule 100 mg PO Q12H Qty: 12 0RF lidocaine [Lidocaine Pain Relief] 4 % Adhesive Patch,Medicated 1 patch transdermal DAILY Qty: 10 0RF Protocol: Apply to: Apply to: right chest prednisone 10 mg tablet See Rx Instructions .ROUTE .COMPLEX Qty: 20 0RF Rx Instructions: 40 mg daily x 2 days, then 30 mg daily x 2 days, then 20 mg daily x 2 days, then 10 mg daily x 2 days Continued thiamine HCl (vitamin B1) 100 mg tablet 1 tab PO BEDTIME simvastatin 20 mg tablet 1 tab PO BEDTIME albuterol sulfate 90 mcg/actuation HFA aerosol inhaler 2 puff inhalation Q4H PRN (Reason: Wheezing) buspirone 5 mg tablet 5 mg PO BID aspirin 81 mg tablet,delayed release (DR/EC) 1 tab PO BEDTIME tamsulosin 0.4 mg capsule 1 cap PO DAILY@1700 ramelteon 8 mg tablet 1 tab PO BEDTIME omeprazole 20 mg capsule,delayed release(DR/EC) 1 cap PO BID@0630,1630 insulin glargine [Lantus U-100 Insulin] 100 unit/mL solution 45 unit subcut BEDTIME insulin aspart U-100 [Novolog Flexpen U-100 Insulin] 100 unit/mL (3 mL) Insulin Pen 1 sliding scale dose SUBCUT TIDAC Protocol: Insulin Correction Scale Less than or equal to 110 ---- Give (units): 0 111 to 150 Give (units): 0 151 to 200 Give (units): 6 201 to 250 Give (units): 8 251 to 300 Give (units): 10 301 to 350 Give (units): 12 Greater than 350 Give (units): 14 Call MD if Blood Glucose > : 350 folic acid 1 mg tablet 1 tab PO DAILY gabapentin 300 mg capsule 600 mg PO TID acetaminophen [Tylenol] 325 mg tablet 650 mg PO Q6H PRN (Reason: pain) Qty: 10 0RF multivitamin Tablet 1 tab PO QAM Fish Oil 340-1,000 mg capsule 1 cap PO QAM Discharge Orders: Discharge Order (Routine); Ordered 03/25/22 Ordered By: Nixon Ferreira Diet: Diabetic diet Activity on Discharge: As tolerated Stand Alone Forms: Patient Portal Discharge page Activity Restrictions/Additional Instructions: anticipated length of stay in [facility] less than 30 days Care Plan Goals: cure of infection relief of COPD exacerbation Health Concerns: scrotal cellulitis COPD exacerbation Plan of Treatment: doxycycline 100 mg twice daily for 6 days prednisone as follows: 40 mg daily x 2 days, then 30 mg daily x 2 days, then 20 mg daily x 2 days, then 10 mg daily x 2 days short-term rehabilitation Please follow up with your primary care doctor within 1 week of discharge from rehabilitation. Return to the hospital if you experience recurrent or worsening symptoms. Assessment: See Discharge Summary.
[2022-03-25 16:31] LABS: Glucose, Whole Blood 338 mg/dL (60-115)
[2022-03-25] MEDS: Tamsulosin HCL 0.4 MG CAPSULE PO (17:23)
== END 2022-03-25 18:49 | disposition skilled nursing facility (03) | DRG 638 ==
LOC: HO.ED 03-16 02:23 → HO.EDOVER 03-16 11:13 → HO.S3 03-16 17:27
PROVIDERS: Hospitalist; Internal Medicine; Physician Assistant; Admitting Provider Family Medicine; Emergency Provider Student in an Organized Health Care Education/Training Program; PCP Internal Medicine Geriatric Medicine; Visit Provider Family Medicine
DX: E10.10 Type 1 diabetes mellitus with ketoacidosis without coma (principal); E87.1 Hypo-osmolality and hyponatremia; I50.32 Chronic diastolic (congestive) heart failure; Z16.21 Resistance to vancomycin; J44.0 Chronic obstructive pulmonary disease with (acute) lower respiratory infection; N49.2 Inflammatory disorders of scrotum; E87.6 Hypokalemia; B35.6 Tinea cruris; F41.9 Anxiety disorder, unspecified; E78.5 Hyperlipidemia, unspecified; B95.2 Enterococcus as the cause of diseases classified elsewhere; I11.0 Hypertensive heart disease with heart failure; E86.1 Hypovolemia; F10.10 Alcohol abuse, uncomplicated; E66.9 Obesity, unspecified; Z68.32 Body mass index [BMI] 32.0-32.9, adult; I35.0 Nonrheumatic aortic (valve) stenosis; Z20.822 Contact with and (suspected) exposure to COVID-19; Z87.891 Personal history of nicotine dependence; Z79.82 Long term (current) use of aspirin; Z79.899 Other long term (current) drug therapy
CPT/HCPCS: 0241U; 36415; 70450; 71045; 71260; 72192; 74177; 80048; 80053; 80307; 81001; 82009; 82077; 82140; 82550; 82565; 82803; 82947; 83036; 83605; 83735; 83880; 84484; 85007; 85025; 85027; 86140; 87040; 87077; 87205; 87633; 87635; 93005; 94640; 96361; 96365; 96375; 97162; 99285; C1758; J1650; J2020; J2543; J2920; J2930; J3370; Q9967

== ENCOUNTER 2022-07-04 11:30 | Inpatient (IN) | payer OTHER, SELFPAY ==
[2022-07-04] VITALS (9 sets, daily range): BP systolic 74–134; BP diastolic 29–108; PULSE 82–100; RESP 16–20; TEMP 35.9; O2SAT 94–99; BMI 29.7
--- NOTE | ~2022-07-04 | XR_ITS ---
EXAMINATION: XR chest 1V CLINICAL INFORMATION: Reason for Exam fall COMPARISON: 03/22/2022 TECHNIQUE: XR chest 1V Tubes and lines: None Lungs and pleura: Both lungs are clear. Heart and mediastinum: The mediastinum is within normal limits.. Bones/soft tissue: Right shoulder prosthesis in place, degenerative arthritis left shoulder. Skeletal structures otherwise unremarkable. XR/XR chest 1V IMPRESSION: No radiographic evidence of acute cardiopulmonary disease.
--- NOTE | ~2022-07-04 | XR_ITS ---
EXAMINATION: XR HIP, LEFT , AP pelvis CLINICAL INFORMATION: Pain COMPARISON: None available at the time of this dictation. TECHNIQUE: Frontal and lateral views of the hip acquired. , AP pelvis FINDINGS: There is no evidence of acute fracture or dislocation. There are mild degenerative arthritic changes of the hip evident by sclerotic changes of the acetabular roof and narrowing of the joint space. Mild degenerative changes of the symphysis pubis. Mild degenerative changes of the SI joints. Adjacent pubic rami are intact. Surrounding soft tissues are unremarkable. XR/XR hip LT w PEL1V IMPRESSION: Mild degenerative arthritis. .
--- NOTE | ~2022-07-04 | XR_ITS ---
EXAMINATION: XR SHOULDER , LEFT CLINICAL INFORMATION: Pain COMPARISON: None available at the time of this dictation. TECHNIQUE: AP external rotation, Grashey, scapular Y, and axillary views of the shoulder. FINDINGS: BONES: There is no fracture or dislocation, no osteolytic or osteoblastic lesion. JOINTS: Glenohumeral joint is properly positioned. There is mild degenerative osteoarthritis of the acromioclavicular joint. SOFT TISSUE AND INCLUDED LUNG: Soft tissue calcification superior to the shoulder joint suggesting calcific tendinitis. XR/XR shoulder LT min 2V IMPRESSION: * Soft tissue calcification superior to the shoulder joint suggesting calcific tendinitis. * DJD A.C. joint. * No fracture or dislocation.
--- NOTE | ~2022-07-04 | CT_ITS ---
EXAMINATION: HEAD CT WITHOUT CONTRAST CERVICAL SPINE CT WITHOUT CONTRAST CLINICAL INFORMATION: Fall COMPARISON: CT 03/15/2022 TECHNIQUE: Contiguous axial imaging of the head was performed without the administration of IV contrast. Axial multidetector volumetric images were also performed through the cervical spine without contrast. Multiplanar reconstructed images in coronal and sagittal orientations were submitted. DOSE: 1526 mGy-cm FINDINGS: HEAD: Motion artifact degrading the inferior aspect of brain, including the inferior supratentorial region, temporal lobe, posterior fossa. This limits evaluation. In the nonobscured portion of the brain, the findings are as follows: There is no evidence of acute intracranial hemorrhage or territorial infarction. No abnormal mass-effect or midline shift. No extra-axial fluid collections. Garcia to white matter differentiation is well preserved. Commensurate prominence of the ventricles and sulci is compatible with generalized parenchymal volume loss. There is periventricular and subcortical white matter hypoattenuation, most likely representing microangiopathic disease. No acute calvarial fracture. Sinus evaluation limited by artifact. Partial opacification left ethmoid sinus. CERVICAL SPINE: Motion artifact limiting evaluation. Straightening of the cervical curvature. There is anatomic alignment of the vertebral bodies and posterior elements. The atlantoaxial and atlantooccipital articulations are maintained. Vertebral body heights are maintained. No vertebral compression deformity or gross fractures identified, with motion artifact limiting evaluation. Disc spaces are relatively maintained. No prevertebral soft tissue swelling. Visualized lung apices appear unremarkable. The thyroid gland is unremarkable. CT/CT cervical spine wo IV con IMPRESSION: CT HEAD AND SPINE: Motion artifact significantly degrading images, limiting evaluation. Recommend repeat CT scan for evaluation. 1. In the nonobscured portion of the brain, no evidence of acute intracranial hemorrhage or edematous territorial infarction.. 2. No gross malalignment cervical spine. No gross acute fractures seen, but evaluation is limited by motion artifact.
--- NOTE | 2022-07-04 11:47 | ECG_ITS ---
Test Reason : FALL Blood Pressure : / mmHG Vent. Rate : 088 BPM Atrial Rate : 088 BPM P-R Int : 174 ms QRS Dur : 084 ms QT Int : 356 ms P-R-T Axes : 063 -03 089 degrees QTc Int : 430 ms Artifact in tracing Normal sinus rhythm Normal ECG When compared with ECG of 24-MAR-2022 11:40, Premature ventricular complexes are no longer Present Referred By: Jacki Garcia Electronically Signed By:BING PHILLIPS
--- NOTE | 2022-07-04 11:47 | ED.GENADULT ---
HPI - General Adult General Chief complaint: General Medical Stated complaint: ON FLOOR FOR DAYS ,SLEEPS/UNABLE TO GET UP Time Seen by Provider: 07/04/22 11:36 Source: patient and EMS Mode of arrival: EMS History of Present Illness HPI narrative: 66-year-old male with past medical history of ETOH abuse, anxiety, COPD, DM, chronic heart failure, HLD, HTN, obesity, presenting to the ED via EMS complaining of generalized weakness, left arm & left leg pain S/P leg giving out and falling at home 2 days ago. Patient was unable to get himself off the ground, lying on floor for 2 days. Denies head trauma or LOC. denies SOB/CP, abdominal pain, nausea/ vomiting. History limited as patient is noncooperative. Denies EtOH use Onset (ago): day(s) Related Data Home Medications Medication Instructions Recorded Confirmed albuterol sulfate 90 mcg/actuation 2 puff inhalation Q4H PRN Wheezing 12/29/20 07/04/22 aerosol inhaler simvastatin 20 mg tablet 1 tab PO BEDTIME 12/29/20 07/04/22 thiamine HCl (vitamin B1) 100 mg 1 tab PO BEDTIME 12/29/20 07/04/22 tablet aspirin 81 mg tablet,delayed 1 tab PO DAILY 02/04/21 07/04/22 release buspirone 5 mg tablet 5 mg PO BID 02/04/21 07/04/22 ramelteon 8 mg tablet 1 tab PO BEDTIME 05/12/21 07/04/22 tamsulosin 0.4 mg capsule 1 cap PO DAILY@1700 05/12/21 07/04/22 omeprazole 20 mg capsule,delayed 1 cap PO BID@0630,1630 06/01/21 07/04/22 release insulin glargine 100 unit/mL 45 unit subcut BEDTIME 06/24/21 07/04/22 subcutaneous solution (Lantus U-100 Insulin) gabapentin 300 mg capsule 300 mg PO TID 10/06/21 07/04/22 multivitamin 1 tab PO DAILY 12/11/21 07/04/22 folic acid 1 mg tablet 1 tab PO BEDTIME 03/16/22 07/04/22 celecoxib 50 mg capsule 1 cap PO BID 07/04/22 07/04/22 omega-3 300 mg-dha 120 mg-epa 180 1 cap PO DAILY 07/04/22 07/04/22 mg-fish oil 1,000 mg capsule Previous Rx's Medication Instructions Recorded acetaminophen 325 mg tablet 650 mg PO Q6H PRN pain #10 tabs 10/08/21 (Tylenol) Allergies Allergy/AdvReac Type Severity Reaction Status Date / Time ENVIRONMENTAL Allergy Mild SNEEZING, Uncoded 10/06/21 15:49 WATERY EYES Review of Systems Review of Systems: Constitutional: No Fever, + Fatigue, No Malaise Eyes: No Eye Pain, No Swelling, No Redness Cardiovascular: No Chest Pain, No SOB Respiratory: No Cough, No Dyspnea Gastrointestinal: No Nausea, No Vomiting, No Abdominal pain Genitourinary: No Dysuria, No Hematuria, No Flank Pain Musculoskeletal: + joint pain, + Myalgias, No Joint Swelling Skin: No Skin Lesions, No rash Neuro: + Weakness, No Loss of Consciousness, No Dizziness, No Headache ROS mildly limited as patient uncooperative Yes all other systems are reviewed and are negative Constitutional: Constitutional: Reports as per [facility] Past Medical History Attestation statement: The following information was validated with the patient. Medical History Acute diastolic CHF (congestive heart failure) Acute hyponatremia Acute respiratory failure with hypoxia LAUREN (acute kidney injury) Alcohol abuse Anxiety Bilateral pleural effusion Cellulitis, scrotum Contusion of rib on left side COPD (chronic obstructive pulmonary disease) Diabetes mellitus type 1 Diastolic dysfunction Diastolic heart failure DMII (diabetes mellitus, type 2) Elevated troponin Fall Fungal dermatitis HLD (hyperlipidemia) Hypertension Nonrheumatic aortic (valve) stenosis Obesity Pneumonia Surgical History H/O elbow surgery H/O shoulder surgery History of hydrocelectomy S/P TURP Family History Family History Father Diabetes Mother Diabetes Social History Social History Household Members: None Housing: Apartment Do you presently have visiting nurse or other home services: No Unable to assess alcohol history related to: Unable to respond Alcohol intake: current Alcohol intake frequency: 3 or more drinks per day Alcohol type: hard liquor Patient Tobacco Use Status: Former Tobacco user Tobacco use type: Cigar Smoked in Last 30 Days: No e-Cigarette/Vaping Use: Currently Using Second Hand Smoke Exposure: No Use of substances other than those prescribed or required for medical reasons: No Advance Directives: Yes Advance Directives on File: Yes Advance Directives Date on File: 10/11/20 Nutrition Risks: Poor intake 0-25% >4 days service: No Current occupational status: unemployed and disabled Physical Exam ED Vital Signs: Vital Signs - 24 hr 07/04/22 11:36 07/04/22 11:47 07/04/22 12:00 Temperature 96.7 F L Pulse Rate 91 91 82 Respiratory Rate 18 20 18 Blood Pressure 134/108 H 120/29 L Pulse Oximetry 95 98 Oxygen Delivery Method Room Air Room Air 07/04/22 11:58 07/04/22 14:25 07/04/22 15:57 Temperature Pulse Rate 89 96 97 Respiratory Rate 16 18 18 Blood Pressure 74/49 L 122/59 L Pulse Oximetry 96 98 Oxygen Delivery Method Room Air Room Air 07/04/22 16:00 Temperature Pulse Rate 92 Respiratory Rate 20 Blood Pressure 122/59 L Pulse Oximetry 97 Oxygen Delivery Method Room Air BMI result Body Mass Index 29.7 Const Other: yelling at staff General: no acute distress Orientation/consciousness: patient oriented x3 Limitations: no limitations HENMT Head: Yes normal to inspection and Yes atraumatic Ears: hearing grossly normal bilaterally General nose exam: Normal external nose present Face and sinus: Yes normal facial exam Mouth: mucous membranes dry Eyes General: appearance normal, both eyes and all related structures Pupils: Equal, round and reactive pupils present EOM: EOMs intact bilaterally Neck Other: no midline cervical spinous tenderness Neck: Yes normal visual inspection and Yes no meningeal signs Resp Effort & Inspection: normal respiratory effort and no respiratory distress Auscultation: diminished lung sounds diffuse Cardio Rate: regular rate Heart sounds: S1 normal heart sound present and S2 normal heart sound present GI Inspection: Yes normal to inspection Palpation (GI): Soft to palpation, nontender, no guarding and not rigid General: Yes no CVA tenderness Back/Spine/Pelvis Other: No midline thoracic/lumbar spinous tenderness/step-off or deformity Back: no CVA tenderness Skin Rashes: no rashes Wounds: no wounds Neuro General: patient oriented x3, tone normal, moves all extremities, no meningeal signs, no focal motor deficits and CN's II-XI intact bilaterally Cranial nerves: Yes Equal, round and reactive pupils present Extrem Other: left shoulder with mild tenderness, no appreciable deformity. Limited ROM secondary to pain Pelvis stable. LLE without focal tenderness to palpation. NV intact distally. Compartments soft. General: Yes normal to inspection Course Course Course Narrative: -1520-- No leukocytosis. H&H stable. Hyponatremic to 121 > will consult Nephrology. Osoms added -Anion gap of 28 >likely from dehydration/ ketosis. BUN of 21. - AST/ ALT elevated. CPK elevated at 2154 consistent with rhabdo > no evidence of compartment syndrome. - initial troponin 24 will obtain 3 hour repeat. Lipase 265. POC 184, small acetone - x-rays with arthritic changes, no acute findings. CXR unremarkable CT HEAD AND SPINE: Motion artifact significantly degrading images, limiting evaluation. Recommend repeat CT scan for evaluation. 1. In the nonobscured portion of the brain, no evidence of acute intracranial hemorrhage or edematous territorial infarction.. 2. No gross malalignment cervical spine. No gross acute fractures seen, but evaluation is limited by motion artifact. -1535-- spoke with Nephrology recommended sodium bicarb 150 mEq in water at 150/hr x1L, followed by maintenance LR at 150 cc/hr. Recommended repeating electrolytes q.4 hours for the next 24 hours, & fluid restriction > plan to admit for further management > case discussed with Dr. De Oliveira as sodium bicarb and water is in ICU only order. He discussed with Nephrology who is okay with using just LR, will DC sodium bicarb order at this time, & continue with LR only & monitor electrolytes Medications Administered Generic Name Dose Route Start Last Admin Trade Name Freq PRN Reason Stop Dose Admin Lactated Ringer's 1,000 mls @ 150 mls/hr 07/04/22 15:45 07/04/22 16:54 Lr IVCONT 150 mls/hr .Q6H40M JOURDAN Administration Omeprazole 20 mg 07/04/22 16:30 07/04/22 17:01 Omeprazole 20 Mg Capsule.Dr MCKEON Not Given BID@0630,1630 JOURDAN Discontinued Medications Generic Name Dose Route Start Last Admin Trade Name Freq PRN Reason Stop Dose Admin Acetaminophen 650 mg 07/04/22 14:18 07/04/22 16:54 Acetaminophen 325 Mg Tablet PO 07/04/22 14:19 Not Given ONCE ONE Albuterol Sulfate 2.5 mg/ 0 mg 07/04/22 11:47 07/04/22 11:57 Ipratropium Gillespie 0.5 mg INHALE 07/04/22 11:48 1 each ONCE ONE Administration Sodium Chloride 500 mls @ 999 mls/hr 07/04/22 12:30 07/04/22 15:06 Ns IV 07/04/22 13:00 Infused .Q31M JOURDAN Infusion Sodium Bicarbonate 150 meq/ 1,150 mls @ 150 mls/hr 07/04/22 15:45 07/04/22 17:04 Sterile Water IV Not Given .Q7H40M [facility] Medical Decision Making Medical Decision Making [facility] Narrative: 66-year-old male with past medical history of ETOH abuse, anxiety, COPD, DM, chronic heart failure, HLD, HTN, obesity, presenting to the ED via EMS complaining of generalized weakness, left arm & left leg pain S/P leg giving out and falling at home 2 days ago. on exam hypertensive initially likely from yelling during evaluation, no evidence of trauma, no midline spinous tenderness, no focal neuro deficits, lungs with diminished breath sounds throughout. Concern for metabolic / infectious etiologies including rhabdo /LAUREN/dehydration. Rule out ICH/fractures. Lower suspicion for CVA/TIA. Concern for COPD exacerbation. Low suspicion for severe sepsis this time. Plan: EKG, labs, UA, CXR, head/ C-spine CT, extremity x-rays, admission Please refer to course for remaining clinical decision making, interpretation of labs/imaging results, and discussions with consultants and/or family members. Differential Diagnosis Differential Diagnoses: The differential diagnosis associated with the presentation includes as above Admission/Observation Consideration of admission/observation: Escalation of care including admission/observation considered Lab Data [facility] Lab Attestation statement: I reviewed the patient's lab results. 07/04/22 14:07 07/04/22 14:07 Labs: Lab Results 07/04/22 07/04/22 07/04/22 Range/Units 14:07 14:07 14:07 WBC 10.6 (4.8-10.8) X10*3/uL RBC 5.02 D (4.60-5.80) X10*6/uL Hgb 15.3 D (14.0-18.0) g/dl Hct 41.4 L (42.0-52.0) % MCV 82.5 (80.0-98.0) fL MCH 30.5 (27.0-33.0) pg MCHC 37.0 H (31.0-36.0) g/dl RDW 12.6 (11.0-16.0) % Plt Count 246 D (160-400) X10*3/uL MPV 8.8 L (9.4-12.4) fL Immature Gran % (Auto) 0.4 (0.0-0.4) % Neut % (Auto) 79.8 H (45-73) % Lymph % (Auto) 8.1 L (20-40) % [place] % (Auto) 10.3 (2-11) % Eos % (Auto) 0.8 (0-4) % Baso % (Auto) 0.6 (0-2) % Lymph # (Auto) 0.9 L (1.2-4.9) X10*3/uL [place] # (Auto) 1.1 (0.1-1.2) X10*3/uL Eos # (Auto) 0.1 (0.0-0.4) X10*3/uL Baso # (Auto) 0.1 (0.0-0.2) X10*3/uL Abs Immat Gran (auto) 0.04 H (0.00-0.03) X10*3/uL Absolute Neuts (auto) 8.5 H (2.0-8.3) x10*3/uL Absolute Nucleated RBC 0.000 (0.0-0.012) X10*3/uL Nucleated RBC % (auto) 0.0 (0.0-0.2) /100WBC PT 11.6 (10.0-13.1) SEC INR 1.0 (0.9-1.1) Sodium 121 L (135-145) mmol/L Potassium 4.6 (3.3-5.1) mmol/L Chloride 80 L (96-108) mmol/L Carbon Dioxide 18 L (22-29) mmol/L Anion Gap 28 H (12-20) BUN 21 H (9-16) mg/dL Creatinine 1.28 (0.5-1.4) mg/dL Estim Creat Clear Calc 65.3 Estimated GFR 56 Random Glucose 184 H (60-115) mg/dL Osmolality (281-305) mosm/kg Lactic Acid (0.5-2.0) mmol/L Calcium 9.3 D (8.4-10.2) mg/dL Magnesium 1.7 (1.6-2.6) mg/dL Total Bilirubin 1.1 H (0.0-1.0) mg/dL Direct Bilirubin 0.3 (0.0-0.5) mg/dL AST 171 H (5-37) U/L ALT 58 H (0-40) U/L Alkaline Phosphatase 151 H (39-117) U/L Ammonia (13-55) umol/L Total Creatine Kinase 2154 H (38-174) U/L Troponin I High Sens (<3.5-35.0) ng/L B-Natriuretic Peptide (<100) pg/mL Total Protein 7.2 (6.5-8.0) g/dL Albumin 4.2 (3.5-5.0) g/dL Lipase 265 H (8-78) U/L Salicylates < 5.0 L (15-30) mg/dL Acetaminophen < 17 (<30) mcg/mL Ethyl Alcohol < 10 mg/dL Acetone, Qual Small H (Negative) 07/04/22 07/04/22 07/04/22 Range/Units 14:07 14:07 14:07 WBC (4.8-10.8) X10*3/uL RBC (4.60-5.80) X10*6/uL Hgb (14.0-18.0) g/dl Hct (42.0-52.0) % MCV (80.0-98.0) fL MCH (27.0-33.0) pg MCHC (31.0-36.0) g/dl RDW (11.0-16.0) % Plt Count (160-400) X10*3/uL MPV (9.4-12.4) fL Immature Gran % (Auto) (0.0-0.4) % Neut % (Auto) (45-73) % Lymph % (Auto) (20-40) % [place] % (Auto) (2-11) % Eos % (Auto) (0-4) % Baso % (Auto) (0-2) % Lymph # (Auto) (1.2-4.9) X10*3/uL [place] # (Auto) (0.1-1.2) X10*3/uL Eos # (Auto) (0.0-0.4) X10*3/uL Baso # (Auto) (0.0-0.2) X10*3/uL Abs Immat Gran (auto) (0.00-0.03) X10*3/uL Absolute Neuts (auto) (2.0-8.3) x10*3/uL Absolute Nucleated RBC (0.0-0.012) X10*3/uL Nucleated RBC % (auto) (0.0-0.2) /100WBC PT (10.0-13.1) SEC INR (0.9-1.1) Sodium (135-145) mmol/L Potassium (3.3-5.1) mmol/L Chloride (96-108) mmol/L Carbon Dioxide (22-29) mmol/L Anion Gap (12-20) BUN (9-16) mg/dL Creatinine (0.5-1.4) mg/dL Estim Creat Clear Calc Estimated GFR Random Glucose (60-115) mg/dL Osmolality (281-305) mosm/kg Lactic Acid 1.9 (0.5-2.0) mmol/L Calcium (8.4-10.2) mg/dL Magnesium (1.6-2.6) mg/dL Total Bilirubin (0.0-1.0) mg/dL Direct Bilirubin (0.0-0.5) mg/dL AST (5-37) U/L ALT (0-40) U/L Alkaline Phosphatase (39-117) U/L Ammonia (13-55) umol/L Total Creatine Kinase (38-174) U/L Troponin I High Sens 24.0 (<3.5-35.0) ng/L B-Natriuretic Peptide 78 (<100) pg/mL Total Protein (6.5-8.0) g/dL Albumin (3.5-5.0) g/dL Lipase (8-78) U/L Salicylates (15-30) mg/dL Acetaminophen (<30) mcg/mL Ethyl Alcohol mg/dL Acetone, Qual (Negative) 07/04/22 07/04/22 Range/Units 14:07 14:07 WBC (4.8-10.8) X10*3/uL RBC (4.60-5.80) X10*6/uL Hgb (14.0-18.0) g/dl Hct (42.0-52.0) % MCV (80.0-98.0) fL MCH (27.0-33.0) pg MCHC (31.0-36.0) g/dl RDW (11.0-16.0) % Plt Count (160-400) X10*3/uL MPV (9.4-12.4) fL Immature Gran % (Auto) (0.0-0.4) % Neut % (Auto) (45-73) % Lymph % (Auto) (20-40) % [place] % (Auto) (2-11) % Eos % (Auto) (0-4) % Baso % (Auto) (0-2) % Lymph # (Auto) (1.2-4.9) X10*3/uL [place] # (Auto) (0.1-1.2) X10*3/uL Eos # (Auto) (0.0-0.4) X10*3/uL Baso # (Auto) (0.0-0.2) X10*3/uL Abs Immat Gran (auto) (0.00-0.03) X10*3/uL Absolute Neuts (auto) (2.0-8.3) x10*3/uL Absolute Nucleated RBC (0.0-0.012) X10*3/uL Nucleated RBC % (auto) (0.0-0.2) /100WBC PT (10.0-13.1) SEC INR (0.9-1.1) Sodium (135-145) mmol/L Potassium (3.3-5.1) mmol/L Chloride (96-108) mmol/L Carbon Dioxide (22-29) mmol/L Anion Gap (12-20) BUN (9-16) mg/dL Creatinine (0.5-1.4) mg/dL Estim Creat Clear Calc Estimated GFR Random Glucose (60-115) mg/dL Osmolality 258 L (281-305) mosm/kg Lactic Acid (0.5-2.0) mmol/L Calcium (8.4-10.2) mg/dL Magnesium (1.6-2.6) mg/dL Total Bilirubin (0.0-1.0) mg/dL Direct Bilirubin (0.0-0.5) mg/dL AST (5-37) U/L ALT (0-40) U/L Alkaline Phosphatase (39-117) U/L Ammonia 31 (13-55) umol/L Total Creatine Kinase (38-174) U/L Troponin I High Sens (<3.5-35.0) ng/L B-Natriuretic Peptide (<100) pg/mL Total Protein (6.5-8.0) g/dL Albumin (3.5-5.0) g/dL Lipase (8-78) U/L Salicylates (15-30) mg/dL Acetaminophen (<30) mcg/mL Ethyl Alcohol mg/dL Acetone, Qual (Negative) Independent Interpretation I performed an independent interpretation of an: EKG Radiology Impression Discussion of test interpretation with radiology: I have reviewed the radiologist's reading. External Record Review External record reviewed: Inpatient record, Outpatient record and Prior outpatient labs Prescription Management I considered prescription management with: Pain Medication Chronic Conditions Patient?s care impacted by: Diabetes and Hypertension Social Determinants Patient?s care significantly limited by Social Determinants of Health including: Alcoholism and drug addiction in family, Problems related to primary support group and Other Social Determinant of Health Critical Care Time Critical Care Time Critical Care Time: Yes Total Critical Care Time: 45 Attestation: I have personally provided critical care time exclusive of time spent on separately billable procedures. Time includes review of lab data, radiology results, discussion with consultants, and monitoring for potential decompensation. Intervention performed as documented. Discharge Plan Discharge Clinical Impression: Rhabdomyolysis, Metabolic acidosis, Acute hyponatremia Patient Disposition: Admitted As Inpatient
[2022-07-04] MEDS: 0.9 % Sodium Chloride 500 ML 999 ML IV (12:25)
--- NOTE | 2022-07-04 12:48 | PC.NURSE ---
phelb contacted for blood draw. Provider aware. Difficult stick.
--- NOTE | 2022-07-04 13:34 | PC.NURSE ---
Pt unwilling to remain still for blood draw by phelbotomy. Pt removed IV in foot. I want to fucking eat, I shouldve never come here .
[2022-07-04 14:20] LABS: MANUAL DIFF FLAG NO
[2022-07-04 14:30] LABS: Ammonia 31 umol/L (13-55); Basophils Absolute Auto 0.1 X10*3/uL (0.0-0.2); Basophils Percent Auto 0.6 % (0-2); Eosinophils Absolute Auto 0.1 X10*3/uL (0.0-0.4); Eosinophils Percent Auto 0.8 % (0-4); Hematocrit 41.4 % (42.0-52.0); Hemoglobin 15.3 g/dl (14.0-18.0); Imm Gran Abs Auto 0.04 X10*3/uL (0.00-0.03); Imm Gran Pct Auto 0.4 % (0.0-0.4); Lymphocytes Absolute Auto 0.9 X10*3/uL (1.2-4.9); Lymphocytes Percent Auto 8.1 % (20-40); Mean Corpuscular Hemoglobin 30.5 pg (27.0-33.0); Mean Corpuscular Volume 82.5 fL (80.0-98.0); Mean Platelet Volume 8.8 fL (9.4-12.4); Monocytes Absolute Auto 1.1 X10*3/uL (0.1-1.2); Monocytes Percent Auto 10.3 % (2-11); Neutrophils Absolute Auto 8.5 x10*3/uL (2.0-8.3); Neutrophils Percent Auto 79.8 % (45-73); Platelet Count 246 X10*3/uL (160-400); Red Blood Count 5.02 X10*6/uL (4.60-5.80); Red Cell Distribution Width 12.6 % (11.0-16.0); White Blood Count 10.6 X10*3/uL (4.8-10.8)
[2022-07-04 14:34] LABS: Lactic Acid 1.9 mmol/L (0.5-2.0)
[2022-07-04 14:48] LABS: Prothrombin Time 11.6 SEC (10.0-13.1)
[2022-07-04 15:04] LABS: Alanine Aminotransferase 58 U/L (0-40); Albumin Level 4.2 g/dL (3.5-5.0); Alkaline Phosphatase 151 U/L (39-117); Anion Gap 28 (12-20); Aspartate Amino Transferase 171 U/L (5-37); Bilirubin Direct 0.3 mg/dL (0.0-0.5); Bilirubin Total 1.1 mg/dL (0.0-1.0); Blood Urea Nitrogen 21 mg/dL (9-16); Calcium 9.3 mg/dL (8.4-10.2); Carbon Dioxide 18 mmol/L (22-29); Chloride 80 mmol/L (96-108); Creatinine Clr Calc Pharmacy 65.3; Estimated Glomerular Filt Rate 56; Ethanol < 10 mg/dL; Glucose Random 184 mg/dL (60-115); Lipase 265 U/L (8-78); Magnesium 1.7 mg/dL (1.6-2.6); Potassium 4.6 mmol/L (3.3-5.1); Sodium 121 mmol/L (135-145); Total Protein 7.2 g/dL (6.5-8.0)
[2022-07-04 15:20] LABS: Acetone, serum QL Small (Negative)
--- NOTE | 2022-07-04 15:24 | PHA.MEDREC ---
Pharmacy Consult ? Medication Reconciliation Pharmacy has completed the medication reconciliation. Spoke to patient to confirm meds. Patient was not the best historian, but could confirm most meds. Patient stated that they recently switched the gabapentin 600mg tid to 300mg tid. Patient also states that lantus is 45 units at bedtime. Patient could not confirm mirtazapine or acamprosate. States he only takes one inhaler (Ventolin).
[2022-07-04 15:39] LABS: B Type Natriuretic Peptide 78 pg/mL (<100)
--- NOTE | 2022-07-04 15:41 | PC.NURSE ---
Call to pharmacy for sodium bicarb gtt. Confirmed with Jacki GREGORIO. Med will be brought.
--- NOTE | 2022-07-04 15:52 | PC.NURSE ---
Per Jacki GREGORIO, Do not hang LR until Sodium bicarb gtt is finished.
--- NOTE | 2022-07-04 15:57 | PC.NURSE ---
Dr. Ron at bedside.
--- NOTE | 2022-07-04 16:21 | PM.IMHP ---
History of Present Illness Date of Service: 07/04/22 Attending physician on admission: Sidney Ron Chief Complaint: lauren,rhabdomylsis , fall ,metabolic acidosis(starvation/alcoholic) 66-year-old male with past medical history of ETOH abuse, anxiety, COPD, DM, chronic heart failure, HLD, HTN, obesity, presenting to the ED via EMS complaining of generalized weakness, left arm & left leg pain S/P leg giving out and falling at home 2 days ago.? Patient was unable to get himself off the ground, lying on floor for 2 days.? Denies head trauma or LOC. He said he could not able to get out of the floor for 2 days, and subsequently need for noticed it and called EMS and was brought to the hospital. Has mild redness in the right groin area, and some soreness. left foot skin abrasion. In addition does not move his left arm up says has shoulder arthritis and pain. Denies any SOB/CP, abdominal pain, nausea/ vomiting or fever chills or cough or phlegm or weakness or numbness. Lab imaging reviewed: wbc 10.6 Sodium 141, potassium 4.6, bicarb 18, anion gap 28 BUN 21 and creatinine 1.28. In addition had hyperglycemia from 200-300 range. Serum osmolality is 258, urine osmolality added. Lactic acid 1.9 Mild elevated LFTs AST is 171 and ALT 58 and alkaline phosphatase 151 bilirubin of 1.1. CPK 2154, also lipase is is 265 CT head and cervical spine seems fine. Left shoulder x-ray: Mild arthritis and possible calcific tendinitis. Hip x-ray: Mild DJD. [facility] Medical History Acute diastolic CHF (congestive heart failure) Acute hyponatremia Acute respiratory failure with hypoxia LAUREN (acute kidney injury) Alcohol abuse Anxiety Bilateral pleural effusion Cellulitis, scrotum Contusion of rib on left side COPD (chronic obstructive pulmonary disease) Diabetes mellitus type 1 Diastolic dysfunction Diastolic heart failure DMII (diabetes mellitus, type 2) Elevated troponin Fall Fungal dermatitis HLD (hyperlipidemia) Hypertension Nonrheumatic aortic (valve) stenosis Obesity Pneumonia Family History Father Diabetes Mother Diabetes Surgical History H/O elbow surgery H/O shoulder surgery History of hydrocelectomy S/P TURP Social History Household Members: None Housing: Apartment Do you presently have visiting nurse or other home services: No Unable to assess alcohol history related to: Unable to respond Alcohol intake: current Alcohol intake frequency: 3 or more drinks per day Alcohol type: hard liquor Patient Tobacco Use Status: Former Tobacco user Tobacco use type: Cigar Smoked in Last 30 Days: No e-Cigarette/Vaping Use: Currently Using Second Hand Smoke Exposure: No Use of substances other than those prescribed or required for medical reasons: No Advance Directives: Yes Advance Directives on File: Yes Advance Directives Date on File: 10/11/20 Nutrition Risks: Poor intake 0-25% >4 days service: No Current occupational status: unemployed and disabled Meds Allergies Allergy/AdvReac Type Severity Reaction Status Date / Time ENVIRONMENTAL Allergy Mild SNEEZING, Uncoded 10/06/21 15:49 WATERY EYES Active Medications: Current Medications Albuterol Sulfate (Albuterol Sulfate 90 Mcg 8 Gm Inhaler) 2 puff INHALE Q4H PRN PRN Reason: Wheezing Aspirin (Aspirin Enteric Coated 81 Mg Tablet.Dr) 81 mg PO DAILY JOURDAN Buspirone HCl (Buspirone Hcl 5 Mg Tablet) 5 mg PO BID JOURDAN Enoxaparin Sodium (Enoxaparin Sodium 40 Mg/0.4 Ml Syringe) 40 mg SUBCUT Q24H JOURDAN Folic Acid (Folic Acid 1 Mg Tablet) 1 mg PO BEDTIME JOURDAN Gabapentin (Gabapentin 300 Mg Capsule) 300 mg PO TID JOURDAN Sodium Bicarbonate 150 meq/ (Sterile Water) 1,150 mls @ 150 mls/hr IV .Q7H40M JOURDAN Lactated Ringer's (Lr) 1,000 mls @ 150 mls/hr IVCONT .Q6H40M JOURDAN Insulin Glargine (Insulin Glargine,Hum.Rec.Anlog 100 Unit/Ml 10 Ml Vial) 45 unit SUBCUT BEDTIME JOURDAN Multivitamins/Vitamin C (Multivitamin Tablet) 1 tab PO DAILY JOURDAN Non-Formulary Medication (Celecoxib) 1 cap PO BID JOURDAN Non-Formulary Medication ([place] 1-Vnn-Xlg-Fish Oil) 1 cap PO DAILY JOURDAN Non-Formulary Medication (Ramelteon) 1 tab PO BEDTIME [facility] Non-Formulary Medication (Simvastatin) 1 tab PO BEDTIME [facility] Omeprazole (Omeprazole 20 Mg Capsule.) 20 mg PO BID@0630,1630 [facility] Pharmacy Consult (Consult Rx Perform Med Rec) 1 each MISCELLANE ONCE PRN PRN Reason: Consult order Sodium Chloride (0.9 % Sodium Chloride Flush 3 Ml Syringe) 3 ml IVFLUSH QSHIFT [facility] Tamsulosin HCl (Tamsulosin Hcl 0.4 Mg Capsule) 0.4 mg PO DAILY@1700 [facility] Thiamine HCl (Thiamine Hcl 100 Mg Tablet) 100 mg PO BEDTIME [facility] Home Medications Medication Instructions Recorded Confirmed Last Taken Type albuterol sulfate 90 mcg/actuation 2 puff inhalation Q4H PRN Wheezing 12/29/20 07/04/22 10/06/21 History aerosol inhaler simvastatin 20 mg tablet 1 tab PO BEDTIME 12/29/20 07/04/22 10/05/21 History thiamine HCl (vitamin B1) 100 mg 1 tab PO BEDTIME 12/29/20 07/04/22 10/05/21 History tablet aspirin 81 mg tablet,delayed 1 tab PO DAILY 02/04/21 07/04/22 12/11/21 History release buspirone 5 mg tablet 5 mg PO BID 02/04/21 07/04/22 12/11/21 History ramelteon 8 mg tablet 1 tab PO BEDTIME 05/12/21 07/04/22 10/05/21 History tamsulosin 0.4 mg capsule 1 cap PO DAILY@1700 05/12/21 07/04/22 10/06/21 History omeprazole 20 mg capsule,delayed 1 cap PO BID@0630,1630 06/01/21 07/04/22 10/06/21 History release insulin glargine 100 unit/mL 45 unit subcut BEDTIME 06/24/21 07/04/22 10/05/21 History subcutaneous solution (Lantus U-100 Insulin) gabapentin 300 mg capsule 300 mg PO TID 10/06/21 07/04/22 10/05/21 History multivitamin 1 tab PO DAILY 12/11/21 07/04/22 Unknown History folic acid 1 mg tablet 1 tab PO BEDTIME 03/16/22 07/04/22 Unknown History celecoxib 50 mg capsule 1 cap PO BID 07/04/22 07/04/22 Unknown History omega-3 300 mg-dha 120 mg-epa 180 1 cap PO DAILY 07/04/22 07/04/22 Unknown History mg-fish oil 1,000 mg capsule Physical Exam Vital Signs and Narrative: Vital Signs: Last Vital Signs Temp 96.7 F L 07/04/22 11:36 Pulse 92 07/04/22 16:13 Resp 20 07/04/22 16:13 BP 122/59 L 07/04/22 16:13 Pulse Ox 97 07/04/22 16:13 O2 Del Method 07/04/22 16:13 BMI result Body Mass Index 29.7 Appearance: Alert.? Oriented X3.? not in distress.? Eyes: Pupils equal, round and reactive to light.? Sclera nonicteric.? ENT: Pharynx normal.?mucous membranes-dry. cvs: rrr, [id number] . res: clear to auscultation ,no rhonchii or wheezing abd: no rebound or guarding ,nt, bs present. ext pulses present , no cyanosis ,no edema . skin: right sided scrotum/groin area redness and mesration ,soarness . left foot -has small abrasion neuro: axo3 , nonfocal. Results Labs 07/04/22 14:07 07/04/22 14:07 Labs: Laboratory Results - last 24 hr 07/04/22 07/04/22 07/04/22 14:07 14:07 14:07 MCV 82.5 MCH 30.5 MCHC 37.0 H RDW 12.6 Plt Count 246 D MPV 8.8 L Immature Gran % (Auto) 0.4 Neut % (Auto) 79.8 H Lymph % (Auto) 8.1 L [place] % (Auto) 10.3 Eos % (Auto) 0.8 Baso % (Auto) 0.6 Lymph # (Auto) 0.9 L [place] # (Auto) 1.1 Eos # (Auto) 0.1 Baso # (Auto) 0.1 Abs Immat Gran (auto) 0.04 H Absolute Neuts (auto) 8.5 H Absolute Nucleated RBC 0.000 Nucleated RBC % (auto) 0.0 PT 11.6 INR 1.0 Anion Gap 28 H Estim Creat Clear Calc 65.3 Estimated GFR 56 Random Glucose 184 H Lactic Acid Calcium 9.3 D Magnesium 1.7 Total Bilirubin 1.1 H Direct Bilirubin 0.3 AST 171 H ALT 58 H Alkaline Phosphatase 151 H Ammonia Total Creatine Kinase 2154 H Troponin I High Sens B-Natriuretic Peptide Total Protein 7.2 Albumin 4.2 Lipase 265 H Ethyl Alcohol < 10 Acetone, Qual Small H 07/04/22 07/04/22 07/04/22 14:07 14:07 14:07 MCV MCH MCHC RDW Plt Count MPV Immature Gran % (Auto) Neut % (Auto) Lymph % (Auto) [place] % (Auto) Eos % (Auto) Baso % (Auto) Lymph # (Auto) [place] # (Auto) Eos # (Auto) Baso # (Auto) Abs Immat Gran (auto) Absolute Neuts (auto) Absolute Nucleated RBC Nucleated RBC % (auto) PT INR Anion Gap Estim Creat Clear Calc Estimated GFR Random Glucose Lactic Acid 1.9 Calcium Magnesium Total Bilirubin Direct Bilirubin AST ALT Alkaline Phosphatase Ammonia Total Creatine Kinase Troponin I High Sens 24.0 B-Natriuretic Peptide 78 Total Protein Albumin Lipase Ethyl Alcohol Acetone, Qual 07/04/22 14:07 MCV MCH MCHC RDW Plt Count MPV Immature Gran % (Auto) Neut % (Auto) Lymph % (Auto) [place] % (Auto) Eos % (Auto) Baso % (Auto) Lymph # (Auto) [place] # (Auto) Eos # (Auto) Baso # (Auto) Abs Immat Gran (auto) Absolute Neuts (auto) Absolute Nucleated RBC Nucleated RBC % (auto) PT INR Anion Gap Estim Creat Clear Calc Estimated GFR Random Glucose Lactic Acid Calcium Magnesium Total Bilirubin Direct Bilirubin AST ALT Alkaline Phosphatase Ammonia 31 Total Creatine Kinase Troponin I High Sens B-Natriuretic Peptide Total Protein Albumin Lipase Ethyl Alcohol Acetone, Qual Imaging Radiologist's Impressions: Impressions Chest X-Ray 07/04/22 13:01 IMPRESSION: No radiographic evidence of acute cardiopulmonary disease. Hip/Pelvis X-Ray 07/04/22 13:01 IMPRESSION: Mild degenerative arthritis. . Shoulder X-Ray 07/04/22 13:01 IMPRESSION: * Soft tissue calcification superior to the shoulder joint suggesting calcific tendinitis. * DJD A.C. joint. * No fracture or dislocation. Cervical Spine CT 07/04/22 13:17 IMPRESSION: CT HEAD AND SPINE: Motion artifact significantly degrading images, limiting evaluation. Recommend repeat CT scan for evaluation. 1. In the nonobscured portion of the brain, no evidence of acute intracranial hemorrhage or edematous territorial infarction.. 2. No gross malalignment cervical spine. No gross acute fractures seen, but evaluation is limited by motion artifact. Head CT 07/04/22 13:17 IMPRESSION: CT HEAD AND SPINE: Motion artifact significantly degrading images, limiting evaluation. Recommend repeat CT scan for evaluation. 1. In the nonobscured portion of the brain, no evidence of acute intracranial hemorrhage or edematous territorial infarction.. 2. No gross malalignment cervical spine. No gross acute fractures seen, but evaluation is limited by motion artifact. Assessment and Plan (1) Acute hyponatremia: Status: Acute (2) Electrolyte abnormality: Status: Acute (3) Fall: Status: Acute (4) Rhabdomyolysis: Status: Acute (5) Cellulitis of scrotum: Status: Acute (6) Metabolic acidosis: Status: Acute Plan 66 year old M with a PMH of alcohol abuse, anxiety, copd, DM, chronic HFpEF, HLD, HTN, obesity who presents to the ED after paramedics were called in by a friend. 1.Hyponatremia /rhabdomylysis: likely hypovolemic low serum osmolarity, added urine osmolarity, moniter bmp q4hr(sodium goal adjustment is 6-8 meq /24 hrs) ed d/w case with nephro:recommended sodium bicarb in water x 1 L followed by maintenance LR at 150 cc an hour continuous. moniter bmp and cpk 2. Poorly controlled DM with hyperglycemia : fs flactuatin -Continue basal insulin and fs with sliding scale coverage. -adjust as indicated 3.EtOH He said he did not drink for a month ? -not in withdrawal at this time, will monitor with CIWA Will add crime specialist consult. Continue thiamine and folic acid. 4. Chronic HFpEF -well compensated at this time 5. mild Cellulitis scrotom vs fungal infection no sepsis lactic acid normal blood cultures sent d/w ED 1 time bp boderline was possible error ,not due to sepsis. complete course of linezolid and as per ID 6. Metabolic acidosis : Due to alcoholic and starvation ketosis: Continue hydration, monitor BMP. 7. Elevated LFTs: Possible related to alcohol use. Monitor LFTs. 8.fall: ct head and cspine neg xary of hip/shoulder : mild djd moniter ,ambulate . prn pain meds tylenol , gabapentine ,lidocaine patch inpatient need: Hyponatremia and metabolic acidosis-needs BMP and electrolytes monitoring. In addition has mild scrotal cellulitis-need antibiotics. Due to these regions patient will benefit from2 midnight stays Assessment plan coordination time spent 70 minutes. Time Spent With Patient Time: Total time managing care of this patient today ____ minutes. Quality Stroke Does the patient have a stroke diagnosis?: No VTE Prior VTE?: No VTE Risk Level:: Medical - moderate - high VTE Device Contraindication: N/A - Device Ordered VTE Drug Contraindication: N/A - Med Ordered
[2022-07-04 16:29] LABS: Acetaminophen LAB < 17 mcg/mL (<30); Osmolality, Serum 258 mosm/kg (281-305); Salicylate < 5.0 mg/dL (15-30)
--- NOTE | 2022-07-04 16:31 | PC.NURSE ---
Plan at this time is to hold bicab gtt until ICU is contacted
[2022-07-04] MEDS: Lactated Ringers 1,000 ML 150 ML IVCONT (16:54)
--- NOTE | 2022-07-04 17:01 | PC.NURSE ---
Pt verbally aggressive but redirectable. Refusing PO Tylenol/omeprazole
[2022-07-04] MEDS: Linezolid/D5W 600 MG/300 ML PIGGYBACK 300 MG IV (19:50)
[2022-07-04 20:33] LABS: Anion Gap 25 (12-20); Blood Urea Nitrogen 23 mg/dL (9-16); Calcium 9.5 mg/dL (8.4-10.2); Carbon Dioxide 21 mmol/L (22-29); Chloride 81 mmol/L (96-108); Creatinine Clr Calc Pharmacy 66.9; Estimated Glomerular Filt Rate 58; Glucose Random 183 mg/dL (60-115); Potassium 3.9 mmol/L (3.3-5.1); Sodium 123 mmol/L (135-145)
[2022-07-04] MEDS: Insulin Glargine,Hum.rec.anlog 100 UNIT/ML 10 ML VIAL 45 UNIT SUBCUT (21:07)
[2022-07-04] MEDS: busPIRone HCl 5 MG TABLET PO (21:08)
[2022-07-04] MEDS: Atorvastatin Calcium 10 MG TABLET PO (21:08)
[2022-07-04] MEDS: Thiamine HCL 100 MG TABLET PO (21:08)
[2022-07-04] MEDS: Gabapentin 300 MG CAPSULE PO (21:08)
[2022-07-04] MEDS: Folic Acid 1 MG TABLET PO (21:08)
[2022-07-04] MEDS: Enoxaparin Sodium 40 MG/0.4 ML SYRINGE SUBCUT (21:09)
[2022-07-04 21:18] LABS: Glucose, Whole Blood 274 mg/dL (60-115)
[2022-07-04] MEDS: Albuterol Sulfate 90 MCG 8 GM INHALER 2 PUFF INHALE (21:18)
[2022-07-04] MEDS: Insulin Lispro 100 UNIT/ML 3 ML VIAL SUBCUT (21:19)
--- NOTE | 2022-07-04 21:26 | PC.NURSE ---
pt medicated according to jul. pt tolerated po meds well. pt requested prn albuterol inhaler. spo2 100% RR 18
[2022-07-05] VITALS (7 sets, daily range): BP systolic 99–130; BP diastolic 47–73; PULSE 86–96; RESP 12–23; TEMP 36.1–37.2; O2SAT 91–97
--- NOTE | 2022-07-05 00:15 | PC.NURSE ---
this rn and financial services education consultant cleaned pt up due to solid linens from incontinence of urine.linens replaced pt boosted up in bed and condom catheter placed by financial services education consultant. hob elevated. pt then turned head to right side and threw up. pt reports that he felt nauseous after rolling to each side during bed change. head of bed sat straight up. this rn contact dr manuel. awaiting new orders at this time. pt remains in the upright position, wind technician in place spo2 finger probe in place 97% RA, BP cuff on
[2022-07-05] MEDS: ondansetron HCL 4 MG/2 ML VIAL IVPUSH ×2 (00:35→08:49)
--- NOTE | 2022-07-05 00:40 | PC.NURSE ---
dr manuel made aware of bp 116/49 map 55. no new orders at this time
[2022-07-05] MEDS: 0.9 % Sodium Chloride Flush 3 ML SYRINGE IVFLUSH ×2 (01:26→16:05)
[2022-07-05] MEDS: Lactated Ringers 1,000 ML 150 ML IVCONT (01:26)
[2022-07-05 05:59] LABS: COVID-19 Test Negative (Negative); IDNOW Serial# 6674DD1D
--- NOTE | 2022-07-05 06:19 | PC.NURSE ---
pt able to sleep on stretcher
--- NOTE | 2022-07-05 06:19 | PC.NURSE ---
due to delay in administrtaion of linzolide this rn called pharmacy to have med retimed to continue to follow q12h schedule. per pharmacy they will do that
--- NOTE | 2022-07-05 06:56 | PC.NURSE ---
late entry- at 0620 this rn and taper printed circuit layout boosted pt up straightened position. pt took [place] catheter off and refused to let us replace at this time
[2022-07-05 07:44] LABS: Glucose, Whole Blood 177 mg/dL (60-115)
[2022-07-05 07:45] LABS: MANUAL DIFF FLAG NO
[2022-07-05 07:48] LABS: Basophils Absolute Auto 0.1 X10*3/uL (0.0-0.2); Basophils Percent Auto 1.1 % (0-2); Eosinophils Absolute Auto 0.2 X10*3/uL (0.0-0.4); Eosinophils Percent Auto 2.7 % (0-4); Hematocrit 36.8 % (42.0-52.0); Hemoglobin 13.6 g/dl (14.0-18.0); Imm Gran Abs Auto 0.03 X10*3/uL (0.00-0.03); Imm Gran Pct Auto 0.4 % (0.0-0.4); Lymphocytes Absolute Auto 0.7 X10*3/uL (1.2-4.9); Lymphocytes Percent Auto 8.6 % (20-40); Mean Corpuscular Hemoglobin 31.3 pg (27.0-33.0); Mean Corpuscular Volume 84.6 fL (80.0-98.0); Monocytes Absolute Auto 0.9 X10*3/uL (0.1-1.2); Neutrophils Absolute Auto 6.5 x10*3/uL (2.0-8.3); Neutrophils Percent Auto 77.2 % (45-73); Platelet Count 215 X10*3/uL (160-400); Red Blood Count 4.35 X10*6/uL (4.60-5.80); Red Cell Distribution Width 12.4 % (11.0-16.0); White Blood Count 8.5 X10*3/uL (4.8-10.8)
[2022-07-05 08:05] LABS: Anion Gap 16 (12-20); Blood Urea Nitrogen 26 mg/dL (9-16); Calcium 8.9 mg/dL (8.4-10.2); Carbon Dioxide 25 mmol/L (22-29); Chloride 87 mmol/L (96-108); Creatinine Clr Calc Pharmacy 77.4; Estimated Glomerular Filt Rate > 60; Glucose Random 180 mg/dL (60-115); Potassium 3.5 mmol/L (3.3-5.1); Sodium 124 mmol/L (135-145)
[2022-07-05] MEDS: Omeprazole 20 MG CAPSULE.DR PO ×2 (08:34→18:50)
[2022-07-05] MEDS: busPIRone HCl 5 MG TABLET PO ×2 (08:34→21:16)
[2022-07-05] MEDS: Aspirin Enteric Coated 81 MG TABLET.DR PO (08:35)
[2022-07-05] MEDS: Gabapentin 300 MG CAPSULE PO ×3 (08:35→21:16)
[2022-07-05] MEDS: Acetaminophen 325 MG TABLET 650 MG PO (08:36)
[2022-07-05] MEDS: Insulin Lispro 100 UNIT/ML 3 ML VIAL SUBCUT ×4 (08:36→21:23)
[2022-07-05] MEDS: Linezolid/D5W 600 MG/300 ML PIGGYBACK 300 MG IV ×2 (08:36→18:48)
[2022-07-05] MEDS: 0.9 % Sodium Chloride 1,000 ML 70 ML IVCONT (08:51)
[2022-07-05] MEDS: Multivitamin TABLET 1 TAB PO (12:06)
[2022-07-05] MEDS: Lidocaine 4 % Patch ADH..PATCH 1 PATCH TRANSDERMA (12:06)
--- NOTE | 2022-07-05 12:08 | PC.NURSE ---
I PREVIOUSLY SCANNED ALL 0900 MEDS. WHEN SAVED IT ONLY SAVED 3 MEDS. HAD TO OVERRIDE
[2022-07-05 12:13] LABS: Anion Gap 16 (12-20); Blood Urea Nitrogen 25 mg/dL (9-16); Calcium 8.8 mg/dL (8.4-10.2); Carbon Dioxide 22 mmol/L (22-29); Chloride 87 mmol/L (96-108); Creatinine Clr Calc Pharmacy 72.7; Estimated Glomerular Filt Rate > 60; Glucose Random 234 mg/dL (60-115); Potassium 4.1 mmol/L (3.3-5.1); Sodium 121 mmol/L (135-145)
--- NOTE | 2022-07-05 13:01 | MHC.CM.PN ---
CM MET WITH PT WHO WAS IN PAIN AND PROVIDED MINIMAL PARTICIPATION HE STATES NOTHING HAS CHANGED SINCE PREVIOUS ADMISSION PER LAST ADMISSION NOTES, PT LIVES ALONE AND IS INDEPENDENT WITH CARE HE HAS HOME O2 HE WEARS AT NIGHT AND A NEBULIZER PRN HE HAS NO HOME SERVICES HCP IS ON FILE HE IS [facility] PCP: [facility] DELIVERED, COPY SENT TO [facility] DCP PLAN TBD PT WILL NEED A PT EVAL DCP HOME VS STR HE WILL NEED THE SHUTTLE VS BLS OF NOTE: PT WENT TO [facility] FOLLOWING LAST ADMISSION
[2022-07-05 13:37] LABS: Glucose, Whole Blood 239 mg/dL (60-115)
[2022-07-05] MEDS: Nystatin Powder 15 GM BOTTLE 1 APPL TOPICAL (13:40)
[2022-07-05] MEDS: Clotrimazole 1 % Cream 15 GM TUBE 1 APPL TOPICAL (13:44)
--- NOTE | 2022-07-05 14:48 | HO.PM.IMPN ---
Subjective Subjective Date of Service: 07/06/22 Interval History: Hyponatremia, has multiple nonspecific pain complaints mostly joint pains Mental status is similar to yesterday Review of Systems Is moving his legs otherwise but says he has pain unclear is really in the pain. Denies any chest pain or shortness of breath or abdominal pain no fever or chills Physical Exam Vital Signs: Vital Signs: Last Vital Signs Temp 98.2 F 07/05/22 11:58 Pulse 87 07/05/22 11:58 Resp 14 07/05/22 11:58 BP 116/47 L 07/05/22 11:58 Pulse Ox 94 07/05/22 11:58 O2 Del Method 07/05/22 11:58 BMI result Body Mass Index 29.7 ?Appearance: Alert.? Oriented X3.? not in distress.? cvs: rrr, [id number] . res: clear to auscultation ,no rhonchii or wheezing abd: no rebound or guarding ,nt, bs present. ext pulses present , no cyanosis ,no edema . skin: right sided scrotum/groin area redness and mesration ,soarness . left foot -has small abrasion neuro: axo3 , nonfocal. Objective Data Active Medications Acetaminophen (Acetaminophen 325 Mg Tablet) 650 mg PO Q6H PRN PRN Reason: Pain, Mild (Pain Scale 1-3) Last Admin: 07/05/22 08:36 Dose: 650 mg Documented By: ERIC Albuterol Sulfate (Albuterol Sulfate 90 Mcg 8 Gm Inhaler) 2 puff INHALE Q4H PRN PRN Reason: Wheezing Last Admin: 07/04/22 21:18 Dose: 2 puff Documented By: KATHRYN Aspirin (Aspirin Enteric Coated 81 Mg Tablet.) 81 mg PO DAILY [facility] Last Admin: 07/05/22 08:35 Dose: 81 mg Documented By: ERIC Atorvastatin Calcium (Atorvastatin Calcium 10 Mg Tablet) 10 mg PO BEDTIME [facility] Last Admin: 07/04/22 21:08 Dose: 10 mg Documented By: KATHRYN Buspirone HCl (Buspirone Hcl 5 Mg Tablet) 5 mg PO BID [facility] Last Admin: 07/05/22 08:34 Dose: 5 mg Documented By: ERIC Clotrimazole (Clotrimazole 1 % Cream 15 Gm Tube) 1 appl TOPICAL BID [facility]; Protocol Last Admin: 07/05/22 13:44 Dose: 1 appl Documented By: JOHNNA Dextrose (Dextrose 50 % 25 Gm/50 Ml Syringe) 25 gm IVPUSH Q15M PRN; Protocol PRN Reason: per Hypoglycemia Standing Ord. Enoxaparin Sodium (Enoxaparin Sodium 40 Mg/0.4 Ml Syringe) 40 mg SUBCUT Q24H [facility] Last Admin: 07/04/22 21:09 Dose: 40 mg Documented By: KATHRYN Folic Acid (Folic Acid 1 Mg Tablet) 1 mg PO BEDTIME [facility] Last Admin: 07/04/22 21:08 Dose: 1 mg Documented By: KATHRYN Gabapentin (Gabapentin 300 Mg Capsule) 300 mg PO TID [facility] Last Admin: 07/05/22 08:35 Dose: 300 mg Documented By: ERIC Glucose (Glucose Gel 15 Gm Gel..Gram.) 15 gm PO Q15M PRN; Protocol PRN Reason: per Hypoglycemia Standing Ord. Linezolid (Zyvox/D5w) 600 mg in 300 mls @ 300 mls/hr IV Q12H [facility] Last Infusion: 07/05/22 11:05 Dose: 300 mls/hr Documented By: ERIC Sodium Chloride (Ns) 1,000 mls @ 70 mls/hr IVCONT .[id number] [facility] Last Admin: 07/05/22 08:51 Dose: 70 mls/hr Documented By: ERIC Insulin Glargine (Insulin Glargine,Hum.Rec.Anlog 100 Unit/Ml 10 Ml Vial) 45 unit SUBCUT BEDTIME [facility] Last Admin: 07/04/22 21:07 Dose: 45 unit Documented By: KATHRYN Insulin Human Lispro (Insulin Lispro 100 Unit/Ml 3 Ml Vial) 0 unit SUBCUT QIDACHS [facility]; Protocol Last Admin: 07/05/22 13:37 Dose: 4 unit Documented By: JOHNNA Lidocaine (Lidocaine 4 % Patch Adh..Patch) 1 patch TRANSDERMA DAILY [facility]; Protocol Last Admin: 07/05/22 12:06 Dose: 1 patch Documented By: ERIC Multivitamins/Vitamin C (Multivitamin Tablet) 1 tab PO DAILY [facility] Last Admin: 07/05/22 12:06 Dose: 1 tab Documented By: ERIC Non-Formulary Medication (Ramelteon) 1 tab PO BEDTIME [facility] Nystatin (Nystatin Powder 15 Gm Bottle) 1 appl TOPICAL BID [facility]; Protocol Last Admin: 07/05/22 13:40 Dose: 1 appl Documented By: JOHNNA Omeprazole (Omeprazole 20 Mg Capsule.Dr) 20 mg PO BID@0630,1630 [facility] Last Admin: 07/05/22 08:34 Dose: 20 mg Documented By: ERIC Ondansetron HCl (Ondansetron Hcl 4 Mg/2 Ml Vial) 4 mg IVPUSH Q8H PRN PRN Reason: Nausea and Vomiting Last Admin: 07/05/22 08:49 Dose: 4 mg Documented By: ERIC Sodium Chloride (0.9 % Sodium Chloride Flush 3 Ml Syringe) 3 ml IVFLUSH QSHIFT [facility] Last Admin: 07/05/22 12:08 Dose: Not Given Documented By: ERIC Non-Admin Reason: IV Running Tamsulosin HCl (Tamsulosin Hcl 0.4 Mg Capsule) 0.4 mg PO DAILY@1700 [facility] Last Admin: 07/04/22 18:37 Dose: Not Given Documented By: TED Non-Admin Reason: Patient Refused Thiamine HCl (Thiamine Hcl 100 Mg Tablet) 100 mg PO BEDTIME [facility] Last Admin: 07/04/22 21:08 Dose: 100 mg Documented By: KATHRYN Labs 07/05/22 07:28 07/05/22 11:44 Labs: Laboratory Results - last 24 hr 07/04/22 07/04/22 07/04/22 14:07 14:07 14:07 MCV MCH MCHC RDW Plt Count MPV Immature Gran % (Auto) Neut % (Auto) Lymph % (Auto) [place] % (Auto) Eos % (Auto) Baso % (Auto) Lymph # (Auto) [place] # (Auto) Eos # (Auto) Baso # (Auto) Abs Immat Gran (auto) Absolute Neuts (auto) Absolute Nucleated RBC Nucleated RBC % (auto) PT 11.6 INR 1.0 Anion Gap 28 H Estim Creat Clear Calc 65.3 Estimated GFR 56 POC Glucose Random Glucose 184 H Osmolality Calcium 9.3 D Magnesium 1.7 Total Bilirubin 1.1 H Direct Bilirubin 0.3 AST 171 H ALT 58 H Alkaline Phosphatase 151 H Total Creatine Kinase 2154 H B-Natriuretic Peptide 78 Total Protein 7.2 Albumin 4.2 Lipase 265 H Salicylates < 5.0 L Acetaminophen < 17 Ethyl Alcohol < 10 Acetone, Qual Small H COVID-19 (ELIER) COVID-19 [place] 07/04/22 07/04/22 07/04/22 14:07 19:06 19:45 MCV MCH MCHC RDW Plt Count MPV Immature Gran % (Auto) Neut % (Auto) Lymph % (Auto) [place] % (Auto) Eos % (Auto) Baso % (Auto) Lymph # (Auto) [place] # (Auto) Eos # (Auto) Baso # (Auto) Abs Immat Gran (auto) Absolute Neuts (auto) Absolute Nucleated RBC Nucleated RBC % (auto) PT INR Anion Gap 25 H Estim Creat Clear Calc 66.9 Estimated GFR 58 POC Glucose Random Glucose 183 H Osmolality 258 L Calcium 9.5 Magnesium Total Bilirubin Direct Bilirubin AST ALT Alkaline Phosphatase Total Creatine Kinase 1909 H Cancelled B-Natriuretic Peptide Total Protein Albumin Lipase Salicylates Acetaminophen Ethyl Alcohol Acetone, Qual COVID-19 (ELIER) [email or web address] 07/04/22 07/05/22 07/05/22 21:14 05:23 07:17 MCV MCH MCHC RDW Plt Count MPV Immature Gran % (Auto) Neut % (Auto) Lymph % (Auto) [place] % (Auto) Eos % (Auto) Baso % (Auto) Lymph # (Auto) [place] # (Auto) Eos # (Auto) Baso # (Auto) Abs Immat Gran (auto) Absolute Neuts (auto) Absolute Nucleated RBC Nucleated RBC % (auto) PT INR Anion Gap Estim Creat Clear Calc Estimated GFR POC Glucose 274 H 177 H Random Glucose Osmolality Calcium Magnesium Total Bilirubin Direct Bilirubin AST ALT Alkaline Phosphatase Total Creatine Kinase B-Natriuretic Peptide Total Protein Albumin Lipase Salicylates Acetaminophen Ethyl Alcohol Acetone, Qual COVID-19 (ELIER) Negative [email or web address] See Note 07/05/22 07/05/22 07/05/22 07:28 07:28 11:44 MCV 84.6 MCH 31.3 MCHC 37.0 H RDW 12.4 Plt Count 215 MPV 9.0 L Immature Gran % (Auto) 0.4 Neut % (Auto) 77.2 H Lymph % (Auto) 8.6 L [place] % (Auto) 10.0 Eos % (Auto) 2.7 Baso % (Auto) 1.1 Lymph # (Auto) 0.7 L [place] # (Auto) 0.9 Eos # (Auto) 0.2 Baso # (Auto) 0.1 Abs Immat Gran (auto) 0.03 Absolute Neuts (auto) 6.5 Absolute Nucleated RBC 0.000 Nucleated RBC % (auto) 0.0 PT INR Anion Gap 16 16 Estim Creat Clear Calc 77.4 72.7 Estimated GFR > 60 > 60 POC Glucose Random Glucose 180 H 234 H Osmolality Calcium 8.9 D 8.8 Magnesium Total Bilirubin Direct Bilirubin AST ALT Alkaline Phosphatase Total Creatine Kinase 1046 H B-Natriuretic Peptide Total Protein Albumin Lipase Salicylates Acetaminophen Ethyl Alcohol Acetone, Qual COVID-19 (ELIER) [email or web address] 07/05/22 13:30 MCV MCH MCHC RDW Plt Count MPV Immature Gran % (Auto) Neut % (Auto) Lymph % (Auto) [place] % (Auto) Eos % (Auto) Baso % (Auto) Lymph # (Auto) [place] # (Auto) Eos # (Auto) Baso # (Auto) Abs Immat Gran (auto) Absolute Neuts (auto) Absolute Nucleated RBC Nucleated RBC % (auto) PT INR Anion Gap Estim Creat Clear Calc Estimated GFR POC Glucose 239 H Random Glucose Osmolality Calcium Magnesium Total Bilirubin Direct Bilirubin AST ALT Alkaline Phosphatase Total Creatine Kinase B-Natriuretic Peptide Total Protein Albumin Lipase Salicylates Acetaminophen Ethyl Alcohol Acetone, Qual COVID-19 (ELIER) COVID-19 Clin Com Microbiology Microbiology Results: Microbiology 07/04/22 12:44 Blood Culture - Preliminary Blood - Venous No growth after 24 hours. Assessment and Plan (1) Metabolic acidosis: Status: Acute (2) Cellulitis of scrotum: Status: Acute (3) Acute hyponatremia: Status: Acute (4) Electrolyte abnormality: Status: Acute (5) Rhabdomyolysis: Status: Acute Plan Hospital day-2: 66 year old M with a PMH of alcohol abuse, anxiety, copd, DM, chronic HFpEF, HLD, HTN, obesity who presents to the ED after paramedics were called in by a friend. 1. acute Hyponatremia /rhabdomylysis: likely hypovolemic low serum osmolarity, added urine osmolarity-need to be sent. ed d/w case with nephro:recommended sodium bicarb in water x 1 L followed by maintenance LR at 150 cc-until today, sodium is still in 121 range, CPk improving ? beer potamania/alcohol related ,poor oral intake-mixed stop fluids , fluid restriction moniter bmp q4-6hr(sodium? goal adjustment is 6-8 meq /24 hrs) 2. Poorly controlled DM with hyperglycemia : fs flactuatin -Continue basal insulin and fs with sliding scale coverage. -adjust as indicated Hemoglobin A1c 3.EtOH He said he did not drink for a month ? -not in withdrawal at this time, will monitor with CIWA Will add retail experience specialist consult.? Continue thiamine and folic acid. 4. Chronic HFpEF -well compensated at this time 5. mild Cellulitis scrotom vs fungal infection no sepsis lactic acid normal blood cultures sent d/w ED 1 time bp boderline was possible error ,not due to sepsis. complete course of linezolid and as per ID Added urology evaluation and ID input. 6. Metabolic acidosis :? Due to alcoholic and starvation ketosIS Seems to be improved with hydration. 7. Elevated LFTs: Possible related to alcohol use.? Monitor LFTs. 8.fall: ct head and cspine neg xary of hip/shoulder : mild djd moniter ,ambulate . prn pain meds tylenol , gabapentine ,lidocaine patch inpatient need:? Hyponatremia and metabolic acidosis-needs BMP and electrolytes monitoring.? possible mild scrotal cellulitis-need antibiotics.? Time Spent With Patient Time: Total time managing care of this patient today ____ minutes. Quality Stroke Does the patient have a stroke diagnosis?: No VTE Prior VTE?: No VTE Risk Level:: Medical - moderate - high VTE Device Contraindication: N/A - Device Ordered VTE Drug Contraindication: N/A - Med Ordered
--- NOTE | 2022-07-05 15:18 | P.CONNP_ITS ---
History of Present Illness Reason for Consult Consult date: 07/25/22 Reason for consult: Hyponatremia Chief Complaint Chief complaint: Hyponatremia, Fall, Rhabdo History of Present Illness Narrative: Asked to see this 66 yo man for hyponatremia. Pt is somnolent, arousable but falling asleep during our meeting. Most of history obtained from MR. Bertrand was apparently weak and fell and found down. He had been falling for 2 days and was unable to get himself up. His presenting sodium was 121. He has a hx of alcohol abuse and is a type II diabetic with hx of HFpEF. His tox screen showed no alcohol. He had an elevated CPK at about 2000. Since admission, with fluids, his sodium has risen to 124. His home med list includes celexicob.(celebrex). Lfts are elevated as is lipase. Review of Systems Review of Systems body aches all over sleepy weakness in legs denies dyspnea denies abd pain denies diff voiding Yes all other systems are reviewed and are negative Constitutional: Reports as per [facility] Past Medical History Medical History Acute diastolic CHF (congestive heart failure) Acute hyponatremia Acute respiratory failure with hypoxia Acute respiratory failure with hypoxia LAUREN (acute kidney injury) Alcohol abuse Anxiety Bilateral pleural effusion Cellulitis, scrotum Contusion of rib on left side COPD (chronic obstructive pulmonary disease) Diabetes mellitus type 1 Diastolic dysfunction Diastolic heart failure DMII (diabetes mellitus, type 2) Electrolyte abnormality Elevated troponin Fall Fall Fungal dermatitis Gram-positive bacteremia HLD (hyperlipidemia) Hypertension Metabolic acidosis Metabolic acidosis Nonrheumatic aortic (valve) stenosis Obesity Pneumonia Rhabdomyolysis Family History Family History Father Diabetes Mother Diabetes Surgical History Surgical History H/O elbow surgery H/O shoulder surgery History of hydrocelectomy S/P TURP Social History Social History Household Members: None Housing: Apartment Do you presently have visiting nurse or other home services: No Unable to assess alcohol history related to: Refusing to respond Alcohol intake: current Alcohol intake frequency: 3 or more drinks per day Alcohol type: hard liquor Patient Tobacco Use Status: Former Tobacco user Quit Date: 05/02/22 Tobacco use type: Cigar Years Smoked: 50 e-Cigarette/Vaping Use: Former Use Second Hand Smoke Exposure: No Advance Directives Date on File: 10/11/20 service: No Current occupational status: unemployed and disabled Meds Allergies Allergy/AdvReac Type Severity Reaction Status Date / Time environmental allergies Allergy Sneezing Verified 07/08/22 08:40 Active Medications: Current Medications Acetaminophen (Acetaminophen 325 Mg Tablet) 650 mg PO Q6H PRN PRN Reason: Pain, Mild (Pain Scale 1-3) Last Admin: 07/05/22 08:36 Dose: 650 mg Albuterol Sulfate (Albuterol Sulfate 90 Mcg 8 Gm Inhaler) 2 puff INHALE Q4H PRN PRN Reason: Wheezing Last Admin: 07/04/22 21:18 Dose: 2 puff Aspirin (Aspirin Enteric Coated 81 Mg Tablet.) 81 mg PO DAILY [facility] Last Admin: 07/05/22 08:35 Dose: 81 mg Atorvastatin Calcium (Atorvastatin Calcium 10 Mg Tablet) 10 mg PO BEDTIME [facility] Last Admin: 07/04/22 21:08 Dose: 10 mg Buspirone HCl (Buspirone Hcl 5 Mg Tablet) 5 mg PO BID [facility] Last Admin: 07/05/22 08:34 Dose: 5 mg Clotrimazole (Clotrimazole 1 % Cream 15 Gm Tube) 1 appl TOPICAL BID [facility]; Protocol Last Admin: 07/05/22 13:44 Dose: 1 appl Dextrose (Dextrose 50 % 25 Gm/50 Ml Syringe) 25 gm IVPUSH Q15M PRN; Protocol PRN Reason: per Hypoglycemia Standing Ord. Enoxaparin Sodium (Enoxaparin Sodium 40 Mg/0.4 Ml Syringe) 40 mg SUBCUT Q24H [facility] Last Admin: 07/04/22 21:09 Dose: 40 mg Folic Acid (Folic Acid 1 Mg Tablet) 1 mg PO BEDTIME [facility] Last Admin: 07/04/22 21:08 Dose: 1 mg Gabapentin (Gabapentin 300 Mg Capsule) 300 mg PO TID [facility] Last Admin: 07/05/22 08:35 Dose: 300 mg Glucose (Glucose Gel 15 Gm Gel..Gram.) 15 gm PO Q15M PRN; Protocol PRN Reason: per Hypoglycemia Standing Ord. Linezolid (Zyvox/D5w) 600 mg in 300 mls @ 300 mls/hr IV Q12H [facility] Last Infusion: 07/05/22 11:05 Dose: Infused Insulin Glargine (Insulin Glargine,Hum.Rec.Anlog 100 Unit/Ml 10 Ml Vial) 45 unit SUBCUT BEDTIME [facility] Last Admin: 07/04/22 21:07 Dose: 45 unit Insulin Human Lispro (Insulin Lispro 100 Unit/Ml 3 Ml Vial) 0 unit SUBCUT QIDACHS [facility]; Protocol Last Admin: 07/05/22 13:37 Dose: 4 unit Lidocaine (Lidocaine 4 % Patch Adh..Patch) 1 patch TRANSDERMA DAILY [facility]; Protocol Last Admin: 07/05/22 12:06 Dose: 1 patch Multivitamins/Vitamin C (Multivitamin Tablet) 1 tab PO DAILY [facility] Last Admin: 07/05/22 12:06 Dose: 1 tab Non-Formulary Medication (Ramelteon) 1 tab PO BEDTIME [facility] Nystatin (Nystatin Powder 15 Gm Bottle) 1 appl TOPICAL BID [facility]; Protocol Last Admin: 07/05/22 13:40 Dose: 1 appl Omeprazole (Omeprazole 20 Mg Capsule.Dr) 20 mg PO BID@0630,1630 [facility] Last Admin: 07/05/22 08:34 Dose: 20 mg Ondansetron HCl (Ondansetron Hcl 4 Mg/2 Ml Vial) 4 mg IVPUSH Q8H PRN PRN Reason: Nausea and Vomiting Last Admin: 07/05/22 08:49 Dose: 4 mg Sodium Chloride (0.9 % Sodium Chloride Flush 3 Ml Syringe) 3 ml IVFLUSH QSHIFT [facility] Last Admin: 07/05/22 12:08 Dose: Not Given Tamsulosin HCl (Tamsulosin Hcl 0.4 Mg Capsule) 0.4 mg PO DAILY@1700 [facility] Last Admin: 07/04/22 18:37 Dose: Not Given Thiamine HCl (Thiamine Hcl 100 Mg Tablet) 100 mg PO BEDTIME [facility] Last Admin: 07/04/22 21:08 Dose: 100 mg Home Medications Medication Instructions Recorded Confirmed Last Taken Type albuterol sulfate 90 mcg/actuation 2 puff inhalation Q4H PRN Wheezing 12/29/20 08/11/22 10/06/21 History aerosol inhaler simvastatin 20 mg tablet 1 tab PO BEDTIME 12/29/20 08/11/22 10/05/21 History thiamine HCl (vitamin B1) 100 mg 1 tab PO BEDTIME 12/29/20 08/11/22 10/05/21 History tablet aspirin 81 mg tablet,delayed 1 tab PO DAILY 02/04/21 08/11/22 12/11/21 History release buspirone 5 mg tablet 5 mg PO BID 02/04/21 08/11/22 12/11/21 History ramelteon 8 mg tablet 1 tab PO BEDTIME 05/12/21 08/11/22 10/05/21 History tamsulosin 0.4 mg capsule 1 cap PO DAILY@1700 05/12/21 08/11/22 10/06/21 History omeprazole 20 mg capsule,delayed 1 cap PO BID@0630,1630 06/01/21 08/11/22 10/06/21 History release gabapentin 300 mg capsule 300 mg PO BEDTIME 10/06/21 08/11/22 10/05/21 History multivitamin 1 tab PO DAILY 12/11/21 08/11/22 Unknown History folic acid 1 mg tablet 1 tab PO BEDTIME 03/16/22 08/11/22 Unknown History celecoxib 50 mg capsule 1 cap PO BID 07/04/22 08/11/22 Unknown History Physical Exam Vital Signs: Last Vital Signs Temp 98.2 F 07/05/22 11:58 Pulse 87 07/05/22 11:58 Resp 14 07/05/22 11:58 BP 116/47 L 07/05/22 11:58 Pulse Ox 94 07/05/22 11:58 O2 Del Method 07/05/22 11:58 BMI result Body Mass Index 29.7 In Er pt is somnolent, barely arousable, falls back to sleep readily Const Other: Obese, disheveled General: cooperative, healthy appearing, no acute distress, alert, awake and lethargic ( Arousable) Orientation/consciousness: patient oriented x3 and lethargic ( Arousable) Limitations: no limitations HEENT Other: PERRLA Head: Yes normal to inspection and Yes atraumatic Ears: hearing grossly normal bilaterally General nose exam: Normal external nose present Face and sinus: Yes normal facial exam Mouth: mucous membranes dry Eyes General: appearance normal, both eyes and all related structures Sclerae: sclerae normal Pupils: Equal, round and reactive pupils present EOM: EOMs intact bilaterally Neck Other: supple, no masses or thyroid enlargement Neck: Yes normal visual inspection, Yes no lymphadenopathy, Yes no meningeal signs, Yes trachea midline and Yes supple Chest Other: Prolonged exp phase with wheezes observable apnea Resp Effort & Inspection: normal respiratory effort and no respiratory distress Auscultation: clear to auscultation bilaterally and diminished lung sounds diffuse Cardio Other: RRR, No JVD Rate: regular rate and tachycardic Rhythm: regular rhythm Heart sounds: S1 normal heart sound present, S2 normal heart sound present, no gallops, no murmurs and no rubs GI Other: soft, abdomen nontender to palpation, bowel sounds present Inspection: Yes normal to inspection Palpation (GI): Soft to palpation, nontender, no guarding, not rigid and Other GI palpation findings present ( Nontender) Auscultation: normal bowel sounds General: Yes no CVA tenderness Back/Spine/Pelvis Other: scrotal cellulitis Back: no CVA tenderness Skin Rashes: no rashes Wounds: no wounds Neuro General: patient oriented x3, tone normal, moves all extremities, no meningeal signs, no focal motor deficits and CN's II-XI intact bilaterally Cranial nerves: Yes Equal, round and reactive pupils present Gait exam (Neuro): Normal gait present Extrem Other: Dry skin no signif edema General: Yes normal to inspection, No clubbing, No cyanosis and Yes edema ( Trace bilateral) Results Lab Results 07/05/22 07:28 07/05/22 11:44 Lab results: Chemistry 07/04/22 07/04/22 07/05/22 14:07 19:06 07:28 Sodium 121 L 123 L 124 L Potassium 4.6 3.9 3.5 Carbon Dioxide 18 L 21 L 25 BUN 21 H 23 H 26 H Creatinine 1.28 1.25 1.08 Calcium 9.3 D 9.5 8.9 D 07/05/22 11:44 Sodium 121 L Potassium 4.1 Carbon Dioxide 22 BUN 25 H Creatinine 1.15 Calcium 8.8 Hematology 07/04/22 07/05/22 14:07 07:28 WBC 10.6 8.5 Hgb 15.3 D 13.6 L Plt Count 246 D 215 Assessment and Plan (1) Acute hyponatremia: Status: Resolved Pt appears hypovolemic on exam Sodium up to 124 Recommend: normal saline at 125/hr with serial sodium levels every 4 hrs (2) Rhabdomyolysis: Status: Inactive Level not of concern re: renal toxicity (3) Metabolic acidosis: Status: Inactive (4) Cellulitis of scrotum: Status: Acute (5) Electrolyte abnormality: Status: Inactive (6) Acute renal failure: Status: Resolved Plan Pt is quite lethargic and I am suspicious of co2 narcosis Suggest getting ABG Start normal saline at 125/hr serial sodium measurements every 4 hrs Time Spent With Patient Time: Total time managing care of this patient today ____ minutes. Procedures Date of Service Date of Service: 07/25/22
[2022-07-05 15:38] LABS: Alanine Aminotransferase 44 U/L (0-40); Albumin Level 3.6 g/dL (3.5-5.0); Alkaline Phosphatase 128 U/L (39-117); Aspartate Amino Transferase 111 U/L (5-37); Bilirubin Direct 0.2 mg/dL (0.0-0.5); Bilirubin Total 0.8 mg/dL (0.0-1.0); Total Protein 6.4 g/dL (6.5-8.0)
--- NOTE | 2022-07-05 15:43 | PC.RT ---
PT REFUSED ABG. DR NOTIFIED
[2022-07-05] MEDS: 0.9 % Sodium Chloride 1,000 ML 125 ML IVCONT (16:05)
--- NOTE | 2022-07-05 16:19 | PC.NURSE ---
late entry for 11am. Report received from Keren ROSENBERG. Pt assisted for bed care, transitioned to hospital bed. skin pwd. no breakdown on buttocks. positioned left side lying. pt is axox3. dry mm. aware of plan for admission. NAD.
--- NOTE | 2022-07-05 16:21 | PC.NURSE ---
No distress. Pt has been able to feed himself, reposition as needed, state his needs. Awaits room on floor. NSR on monitor.
[2022-07-05 17:15] LABS: Appearance Urine Clear; Color Urine Yellow; Glucose Urine UA 500 mg/dL (Negative); Leukocyte Esterase Urine Trace (Negative); Nitrite Urine Negative (Negative); Specific Gravity - Urine 1.025 (1.005-1.025); UMIC TRIGGER UA YES; UMIC TRIGGER UACC YES; Urine Blood Negative (Negative); Urine Ketones Trace mg/dL (Negative); Urine Protein 100 (2+) mg/dL (Neg-Trace)
[2022-07-05 17:25] LABS: Creatinine Urine 143.88 mg/dL; Potassium Urine Random 26.1 mmol/L
[2022-07-05 17:31] LABS: Amphetamine Screen Urine Not Detected (Not Detect); Barbiturates, Urine Not Detected (Not Detect); Benzodiazepines Screen Urine Not Detected (Not Detect); Cannabinoid Screen Urine Not Detected (Not Detect); Cocaine Screen Urine Not Detected (Not Detect); Fentanyl, urine Not Detected (Not Detect); Opiate Screen Urine Not Detected (Not Detect); Phencyclidine Screen Urine Not Detected (Not Detect)
[2022-07-05 17:34] LABS: Venous Blood Gas Refer to POC result
[2022-07-05 17:34] LABS: VBG Base Excess 3.1 mmol/L; VBG HCO3 27 mmol/L (22-26); VBG pCO2 40 mmHg; VBG pH 7.44 (7.32-7.43); VBG pO2 45 mmHg
[2022-07-05 17:35] LABS: Osmolality Urine 697 mosm/kg (373-1093)
[2022-07-05 17:55] LABS: Sodium Urine Random < 20.0 mmol/L
[2022-07-05 17:55] LABS: Anion Gap 16 (12-20); Blood Urea Nitrogen 25 mg/dL (9-16); Calcium 8.7 mg/dL (8.4-10.2); Carbon Dioxide 26 mmol/L (22-29); Chloride 88 mmol/L (96-108); Creatinine Clr Calc Pharmacy 73.3; Estimated Glomerular Filt Rate > 60; Glucose Random 222 mg/dL (60-115); Potassium 3.7 mmol/L (3.3-5.1); Sodium 126 mmol/L (135-145)
[2022-07-05 18:00] LABS: Glucose, Whole Blood 215 mg/dL (60-115)
[2022-07-05 18:07] LABS: Bacteria Urine None Seen (None Seen); RBC Urine 0-2 /HPF (0-2); Squamous Epithelial Cell Urine 0-2 /HPF (0-2); WBC Urine 0-5 /HPF (0-5)
[2022-07-05] MEDS: Enoxaparin Sodium 40 MG/0.4 ML SYRINGE SUBCUT (18:49)
[2022-07-05] MEDS: Tamsulosin HCL 0.4 MG CAPSULE PO (18:50)
[2022-07-05 19:32] LABS: Glucose, Whole Blood 188 mg/dL (60-115)
[2022-07-05] MEDS: Atorvastatin Calcium 10 MG TABLET PO (21:16)
[2022-07-05] MEDS: Thiamine HCL 100 MG TABLET PO (21:19)
[2022-07-05] MEDS: Insulin Glargine,Hum.rec.anlog 100 UNIT/ML 10 ML VIAL 45 UNIT SUBCUT (21:23)
[2022-07-05 21:49] LABS: Anion Gap 17 (12-20); Blood Urea Nitrogen 25 mg/dL (9-16); Calcium 8.6 mg/dL (8.4-10.2); Carbon Dioxide 23 mmol/L (22-29); Chloride 90 mmol/L (96-108); Creatinine Clr Calc Pharmacy 65.3; Estimated Glomerular Filt Rate 56; Glucose Random 277 mg/dL (60-115); Sodium 125 mmol/L (135-145)
[2022-07-06] VITALS (32 sets, daily range): BP systolic 66–143; BP diastolic 32–104; PULSE 87–108; RESP 11–20; TEMP 35.9–37.2; O2SAT 89–100
[2022-07-06] MEDS: 0.9 % Sodium Chloride Flush 3 ML SYRINGE IVFLUSH ×4 (00:14→23:37)
[2022-07-06] MEDS: 0.9 % Sodium Chloride 1,000 ML 100 ML IVCONT (00:15)
[2022-07-06] MEDS: oxyCODONE HCl Immed Release 5 MG TABLET PO (01:18)
--- NOTE | 2022-07-06 07:44 | P.CNUR_ITS ---
History of Present Illness Consult details Consult date: 07/06/22 Narrative: Consulting complaint scrotal cellulitis 66-year-old male. Admission to hospital with LAUREN, fall, metabolic acidosis Past history of alcohol abuse with chronic heart failure, diabetes mellitus, hypertension, obesity Presented with generalized weakness after falling at home. Had been unable to get up from the ground. Noted to have area of redness on right scrotum Appears to be simple cellulitis On appropriate antibiotics Continue course and follow-up with PCP Review of Systems Constitutional: Constitutional: Reports as per HPI and Reports no additional constitutional complaints Cardiovascular: Cardiovascular: Reports as per HPI and Reports no additional cardiovascular complaints Respiratory: Respiratory: Reports as per HPI and Reports no additional respiratory complaints Gastrointestinal: Gastrointestinal: Reports as per HPI and Reports no additional gastrointestinal complaints Genitourinary: Genitourinary: Reports as per HPI Musculoskeletal: Musculoskeletal: Reports no additional musculoskeletal complaints and Reports as per HPI Neurologic: Reports system reviewed and no additional complaints, except as documented and Reports as per HPI [facility] Past Medical History Medical History (Updated 10/01/22 @ 00:35 by Korina Baer) Acute diastolic CHF (congestive heart failure) Acute hyponatremia Acute respiratory failure with hypoxia Acute respiratory failure with hypoxia LAUREN (acute kidney injury) Alcohol abuse Alcohol use disorder Anxiety Bilateral pleural effusion Cellulitis, scrotum Contusion of rib on left side COPD (chronic obstructive pulmonary disease) Diabetes mellitus type 1 Diastolic dysfunction Diastolic heart failure DMII (diabetes mellitus, type 2) Electrolyte abnormality Elevated troponin Fall Fall Fungal dermatitis Gram-positive bacteremia HLD (hyperlipidemia) Hypertension Metabolic acidosis Metabolic acidosis Nonrheumatic aortic (valve) stenosis Obesity PAF (paroxysmal atrial fibrillation) Pneumonia Rhabdomyolysis Family History Family History Father Diabetes Mother Diabetes Surgical History Surgical History H/O elbow surgery H/O shoulder surgery History of hydrocelectomy S/P TURP Social History Social History Household Members: None Housing: Apartment Do you presently have visiting nurse or other home services: No Unable to assess alcohol history related to: Refusing to respond Alcohol intake: current Alcohol intake frequency: 3 or more drinks per day Alcohol type: beer and hard liquor Patient Tobacco Use Status: Former Tobacco user Quit Date: 05/02/22 Tobacco use type: Cigar Years Smoked: 50 e-Cigarette/Vaping Use: Former Use Second Hand Smoke Exposure: No Advance Directives Date on File: 10/11/20 service: No Current occupational status: unemployed and disabled Meds Allergies Allergy/AdvReac Type Severity Reaction Status Date / Time No Known Allergies Allergy Verified 09/29/22 14:35 Active Medications: Current Medications Acetaminophen (Acetaminophen 325 Mg Tablet) 650 mg PO Q6H PRN PRN Reason: Pain, Mild (Pain Scale 1-3) Last Admin: 07/05/22 08:36 Dose: 650 mg Aspirin (Aspirin Enteric Coated 81 Mg Tablet.Dr) 81 mg PO DAILY [facility] Last Admin: 07/05/22 08:35 Dose: 81 mg Atorvastatin Calcium (Atorvastatin Calcium 10 Mg Tablet) 10 mg PO BEDTIME [facility] Last Admin: 07/05/22 21:16 Dose: 10 mg Buspirone HCl (Buspirone Hcl 5 Mg Tablet) 5 mg PO BID [facility] Last Admin: 07/05/22 21:16 Dose: 5 mg Clotrimazole (Clotrimazole 1 % Cream 15 Gm Tube) 1 appl TOPICAL BID [facility]OURD[facility]; Protocol Last Admin: 07/05/22 21:22 Dose: Not Given Albuterol Sulfate 2.5 mg/ (Ipratropium [place] 0.5 mg) 0 mg INHALE RQ4H WHILE AWAKE [facility] Last Admin: 07/05/22 18:56 Dose: Not Given Albuterol Sulfate 2.5 mg/ (Ipratropium [place] 0.5 mg) 0 mg INHALE Q3H PRN PRN Reason: sob Dextrose (Dextrose 50 % 25 Gm/50 Ml Syringe) 25 gm IVPUSH Q15M PRN; Protocol PRN Reason: per Hypoglycemia Standing Ord. Enoxaparin Sodium (Enoxaparin Sodium 40 Mg/0.4 Ml Syringe) 40 mg SUBCUT Q24H [facility] Last Admin: 07/05/22 18:49 Dose: 40 mg Folic Acid (Folic Acid 1 Mg Tablet) 1 mg PO BEDTIME [facility]OUR[facility] Last Admin: 07/05/22 21:22 Dose: Not Given Gabapentin (Gabapentin 300 Mg Capsule) 300 mg PO TID [facility] Last Admin: 07/05/22 21:16 Dose: 300 mg Glucose (Glucose Gel 15 Gm Gel..Gram.) 15 gm PO Q15M PRN; Protocol PRN Reason: per Hypoglycemia Standing Ord. Linezolid (Zyvox/D5w) 600 mg in 300 mls @ 300 mls/hr IV Q12H [facility] Last Infusion: 07/05/22 21:24 Dose: Infused Insulin Glargine (Insulin Glargine,Hum.Rec.Anlog 100 Unit/Ml 10 Ml Vial) 45 unit SUBCUT BEDTIME [facility] Last Admin: 07/05/22 21:23 Dose: 45 unit Insulin Human Lispro (Insulin Lispro 100 Unit/Ml 3 Ml Vial) 0 unit SUBCUT QIDA CHS [facility]; Protocol Last Admin: 07/05/22 21:23 Dose: 2 unit Lidocaine (Lidocaine 4 % Patch Adh..Patch) 1 patch TRANSDERMA DAILY [facility]; Protocol Last Admin: 07/05/22 12:06 Dose: 1 patch Multivitamins/Vitamin C (Multivitamin Tablet) 1 tab PO DAILY [facility] Last Admin: 07/05/22 12:06 Dose: 1 tab Non-Formulary Medication (Ramelteon) 1 tab PO BEDTIME [facility] Nystatin (Nystatin Powder 15 Gm Bottle) 1 appl TOPICAL BID [facility]; Protocol Last Admin: 07/05/22 21:24 Dose: Not Given Omeprazole (Omeprazole 20 Mg Capsule.Dr) 20 mg PO BID@0630,1630 [facility] Last Admin: 07/06/22 06:09 Dose: Not Given Ondansetron HCl (Ondansetron Hcl 4 Mg/2 Ml Vial) 4 mg IVPUSH Q8H PRN PRN Reason: Nausea and Vomiting Last Admin: 07/05/22 08:49 Dose: 4 mg Sodium Chloride (0.9 % Sodium Chloride Flush 3 Ml Syringe) 3 ml IVFLUSH QSHIFT [facility] Last Admin: 07/06/22 00:14 Dose: 3 ml Tamsulosin HCl (Tamsulosin Hcl 0.4 Mg Capsule) 0.4 mg PO DAILY@1700 [facility] Last Admin: 07/05/22 18:50 Dose: 0.4 mg Thiamine HCl (Thiamine Hcl 100 Mg Tablet) 100 mg PO BEDTIME [facility] Last Admin: 07/05/22 21:19 Dose: 100 mg Home Medications Medication Instructions Recorded Confirmed Last Taken Type albuterol sulfate 90 mcg/actuation 2 puff inhalation Q4H PRN Wheezing 08/09/29/22 10/06/21 History aerosol inhaler simvastatin 20 mg tablet 1 tab PO BEDTIME 12/29/20 09/29/22 10/05/21 History thiamine HCl (vitamin B1) 100 mg 1 tab PO BEDTIME 12/29/20 09/29/22 10/05/21 History tablet aspirin 81 mg tablet,delayed 1 tab PO DAILY 02/04/21 09/29/22 12/11/21 History release tamsulosin 0.4 mg capsule 1 cap PO DAILY@1700 05/12/21 09/29/22 10/06/21 History omeprazole 20 mg capsule,delayed 1 cap PO BID@0630,1630 06/01/21 09/29/22 10/06/21 History release multivitamin 1 tab PO DAILY 12/11/21 09/29/22 Unknown History folic acid 1 mg tablet 1 tab PO BEDTIME 03/16/22 09/29/22 Unknown History celecoxib 50 mg capsule 50 mg PO BID 09/29/22 09/29/22 Unknown History gabapentin 300 mg capsule 600 mg PO TID 09/29/22 09/29/22 Unknown History Physical Exam Vital Signs: Vital Signs: Last Vital Signs Temp 97.0 F 07/06/22 04:00 Pulse 100 07/06/22 04:00 Resp 20 07/06/22 04:00 BP 96/66 07/06/22 04:00 Pulse Ox 91 L 07/06/22 04:00 O2 Del Method 07/06/22 04:00 BMI result Body Mass Index 29.7 Const: General: cooperative, healthy appearing, comfortable and no acute distress Orientation/consciousness: patient oriented x3 HEENT: Face and sinus: Yes normal facial exam Mouth: moist mucous membranes Neck: Neck: Yes normal visual inspection, Yes full ROM and Yes trachea midline Chest: Chest palpation & inspection: normal inspection of the chest Resp: Effort & Inspection: normal respiratory effort, able to speak in complete sentences and no respiratory distress GI: Inspection: Yes normal to inspection Back/Spine/Pelvis: Cervical Spine: normal cervical lordosis Thoracic/Lumbar Spine: thoracic and lumbar spine normal to inspection Skin: General skin exam: no rashes or lesions noted Neuro: General: patient oriented x3, tone normal and moves all extremities Extrem: General: Yes normal to inspection and Yes capillary refill normal Results Labs 07/05/22 07:28 07/05/22 20:55 Labs: Abnormal lab results 07/05/22 07/05/22 07/05/22 Range/Units 07:17 07:28 07:28 RBC 4.35 L (4.60-5.80) X10*6/uL Hgb 13.6 L (14.0-18.0) g/dl Hct 36.8 L (42.0-52.0) % MCHC 37.0 H (31.0-36.0) g/dl MPV 9.0 L (9.4-12.4) fL Neut % (Auto) 77.2 H (45-73) % Lymph % (Auto) 8.6 L (20-40) % Lymph # (Auto) 0.7 L (1.2-4.9) X10*3/uL VBG pH (7.32-7.43) VBG HCO3 (22-26) mmol/L Sodium 124 L (135-145) mmol/L Chloride 87 L (96-108) mmol/L BUN 26 H (9-16) mg/dL POC Glucose 177 H (60-115) mg/dL Random Glucose 180 H (60-115) mg/dL AST (5-37) U/L ALT (0-40) U/L Alkaline Phosphatase (39-117) U/L Total Creatine Kinase 1046 H (38-174) U/L Total Protein (6.5-8.0) g/dL Urine Protein (Neg-Trace) mg/dL Urine Glucose (UA) (Negative) mg/dL Ur Leukocyte Esterase (Negative) 07/05/22 07/05/22 07/05/22 Range/Units 11:44 13:30 14:38 RBC (4.60-5.80) X10*6/uL Hgb (14.0-18.0) g/dl Hct (42.0-52.0) % MCHC (31.0-36.0) g/dl MPV (9.4-12.4) fL Neut % (Auto) (45-73) % Lymph % (Auto) (20-40) % Lymph # (Auto) (1.2-4.9) X10*3/uL VBG pH (7.32-7.43) VBG HCO3 (22-26) mmol/L Sodium 121 L (135-145) mmol/L Chloride 87 L (96-108) mmol/L BUN 25 H (9-16) mg/dL POC Glucose 239 H (60-115) mg/dL Random Glucose 234 H (60-115) mg/dL AST 111 H (5-37) U/L ALT 44 H (0-40) U/L Alkaline Phosphatase 128 H (39-117) U/L Total Creatine Kinase (38-174) U/L Total Protein 6.4 L (6.5-8.0) g/dL Urine Protein 100 (2+) H (Neg-Trace) mg/dL Urine Glucose (UA) 500 H (Negative) mg/dL Ur Leukocyte Esterase Trace H (Negative) 07/05/22 07/05/22 07/05/22 Range/Units 17:15 17:26 17:56 RBC (4.60-5.80) X10*6/uL Hgb (14.0-18.0) g/dl Hct (42.0-52.0) % MCHC (31.0-36.0) g/dl MPV (9.4-12.4) fL Neut % (Auto) (45-73) % Lymph % (Auto) (20-40) % Lymph # (Auto) (1.2-4.9) X10*3/uL VBG pH 7.44 H (7.32-7.43) VBG HCO3 27 H (22-26) mmol/L Sodium 126 L (135-145) mmol/L Chloride 88 L (96-108) mmol/L BUN 25 H (9-16) mg/dL POC Glucose 215 H (60-115) mg/dL Random Glucose 222 H (60-115) mg/dL AST (5-37) U/L ALT (0-40) U/L Alkaline Phosphatase (39-117) U/L Total Creatine Kinase (38-174) U/L Total Protein (6.5-8.0) g/dL Urine Protein (Neg-Trace) mg/dL Urine Glucose (UA) (Negative) mg/dL Ur Leukocyte Esterase (Negative) 07/05/22 07/05/22 Range/Units 19:29 20:55 RBC (4.60-5.80) X10*6/uL Hgb (14.0-18.0) g/dl Hct (42.0-52.0) % MCHC (31.0-36.0) g/dl MPV (9.4-12.4) fL Neut % (Auto) (45-73) % Lymph % (Auto) (20-40) % Lymph # (Auto) (1.2-4.9) X10*3/uL VBG pH (7.32-7.43) VBG HCO3 (22-26) mmol/L Sodium 125 L (135-145) mmol/L Chloride 90 L (96-108) mmol/L BUN 25 H (9-16) mg/dL POC Glucose 188 H (60-115) mg/dL Random Glucose 277 H (60-115) mg/dL AST (5-37) U/L ALT (0-40) U/L Alkaline Phosphatase (39-117) U/L Total Creatine Kinase (38-174) U/L Total Protein (6.5-8.0) g/dL Urine Protein (Neg-Trace) mg/dL Urine Glucose (UA) (Negative) mg/dL Ur Leukocyte Esterase (Negative) Short CBC 07/05/22 Range/Units 07:28 WBC 8.5 (4.8-10.8) X10*3/uL Hgb 13.6 L (14.0-18.0) g/dl Hct 36.8 L (42.0-52.0) % Plt Count 215 (160-400) X10*3/uL BMP 07/05/22 07/05/22 07/05/22 07:28 11:44 17:15 Sodium 124 L 121 L 126 L Potassium 3.5 4.1 3.7 Chloride 87 L 87 L 88 L Carbon Dioxide 25 22 26 BUN 26 H 25 H 25 H Creatinine 1.08 1.15 1.14 Calcium 8.9 D 8.8 8.7 07/05/22 20:55 Sodium 125 L Potassium 5.0 D Chloride 90 L Carbon Dioxide 23 BUN 25 H Creatinine 1.28 Calcium 8.6 Cardiac Enzymes 07/05/22 Range/Units 07:28 Total Creatine Kinase 1046 H (38-174) U/L Liver Function 07/05/22 Range/Units 11:44 Total Bilirubin 0.8 (0.0-1.0) mg/dL Direct Bilirubin 0.2 (0.0-0.5) mg/dL AST 111 H (5-37) U/L ALT 44 H (0-40) U/L Alkaline Phosphatase 128 H (39-117) U/L Albumin 3.6 (3.5-5.0) g/dL Urine 07/05/22 Range/Units 14:38 Urine Color Yellow Urine Appearance Clear Urine pH 6.0 (5.0-9.0) Ur Specific [place] 1.025 (1.005-1.025) Urine Protein 100 (2+) H (Neg-Trace) mg/dL Urine Glucose (UA) 500 H (Negative) mg/dL All other labs normal. Assessment and Plan (1) Cellulitis of scrotum: Status: Acute Plan complete oral course on antibiotics Time Spent With Patient Time: Total time managing care of this patient today ____ minutes. Procedures Date of Service Date of Service: 07/06/22
[2022-07-06 07:56] LABS: Estimated Average Glucose 174 mg/dL; Hemoglobin A1c % 7.7 %
[2022-07-06 07:58] LABS: Glucose, Whole Blood 218 mg/dL (60-115)
[2022-07-06 07:59] LABS: Anion Gap 14 (12-20); Blood Urea Nitrogen 28 mg/dL (9-16); Carbon Dioxide 24 mmol/L (22-29); Chloride 91 mmol/L (96-108); Estimated Glomerular Filt Rate 46; Glucose Random 227 mg/dL (60-115); Potassium 4.1 mmol/L (3.3-5.1); Sodium 125 mmol/L (135-145)
[2022-07-06] MEDS: Albumin Human 25 % 100 ML 133.33 ML IV ×2 (08:21→08:58)
--- NOTE | 2022-07-06 08:43 | HO.PM.IMPN ---
Subjective Subjective Date of Service: 07/06/22 Interval History: hyponatremia , hypotensive Review of Systems awake ,yells '' leave me alone'' Physical Exam Vital Signs: Vital Signs: Last Vital Signs Temp 99.0 F 07/06/22 07:30 Pulse 108 H 07/06/22 07:30 Resp 18 07/06/22 07:30 BP 66/48 L 07/06/22 08:34 Pulse Ox 91 L 07/06/22 04:00 O2 Del Method 07/06/22 04:00 BMI result Body Mass Index 29.7 limited exam: Appearance:awake,agitated ,uncooperative res: air entry fair abd: no rebound or guarding ,nt, bs present. ext pulses present , no cyanosis ,no edema . skin: right sided scrotum/groin area redness seems somewhat better. left foot -has small abrasion neuro: uncooperative awake movin allext Objective Data Active Medications Acetaminophen (Acetaminophen 325 Mg Tablet) 650 mg PO Q6H PRN PRN Reason: Pain, Mild (Pain Scale 1-3) Last Admin: 07/05/22 08:36 Dose: 650 mg Documented By: ERIC Aspirin (Aspirin Enteric Coated 81 Mg Tablet.) 81 mg PO DAILY [facility] Last Admin: 07/05/22 08:35 Dose: 81 mg Documented By: ERIC Atorvastatin Calcium (Atorvastatin Calcium 10 Mg Tablet) 10 mg PO BEDTIME [facility] Last Admin: 07/05/22 21:16 Dose: 10 mg Documented By: SERGEY Buspirone HCl (Buspirone Hcl 5 Mg Tablet) 5 mg PO BID [facility] Last Admin: 07/05/22 21:16 Dose: 5 mg Documented By: SERGEY Clotrimazole (Clotrimazole 1 % Cream 15 Gm Tube) 1 appl TOPICAL BID [facility]; Protocol Last Admin: 07/05/22 21:22 Dose: Not Given Documented By: SERGEY Non-Admin Reason: Patient Refused Albuterol Sulfate 2.5 mg/ (Ipratropium [place] 0.5 mg) 0 mg INHALE RQ4H WHILE AWAKE [facility] Last Admin: 07/06/22 07:50 Dose: Not Given Documented By: ELVA Non-Admin Reason: Patient Refused Albuterol Sulfate 2.5 mg/ (Ipratropium [place] 0.5 mg) 0 mg INHALE Q3H PRN PRN Reason: sob Dextrose (Dextrose 50 % 25 Gm/50 Ml Syringe) 25 gm IVPUSH Q15M PRN; Protocol PRN Reason: per Hypoglycemia Standing Ord. Enoxaparin Sodium (Enoxaparin Sodium 40 Mg/0.4 Ml Syringe) 40 mg SUBCUT Q24H [facility] Last Admin: 07/05/22 18:49 Dose: 40 mg Documented By: JONATHAN Folic Acid (Folic Acid 1 Mg Tablet) 1 mg PO BEDTIME [facility] Last Admin: 07/05/22 21:22 Dose: Not Given Documented By: SERGEY Non-Admin Reason: Patient Refused Gabapentin (Gabapentin 300 Mg Capsule) 300 mg PO TID [facility] Last Admin: 07/05/22 21:16 Dose: 300 mg Documented By: SERGEY Glucose (Glucose Gel 15 Gm Gel..Gram.) 15 gm PO Q15M PRN; Protocol PRN Reason: per Hypoglycemia Standing Ord. Linezolid (Zyvox/D5w) 600 mg in 300 mls @ 300 mls/hr IV Q12H [facility] Last Admin: 07/06/22 08:41 Dose: Not Given Documented By: KIRSTIN Non-Admin Reason: No Access Sodium Chloride (Ns) 1,000 mls @ 500 mls/hr IVCONT .Q2H [facility] Stop: 07/06/22 09:59 Last Admin: 07/06/22 08:40 Dose: Not Given Documented By: KIRSTIN Non-Admin Reason: Physician Held Med Albumin Human (Kedbumin 25 %) 100 mls @ 133.333 mls/hr IV Q1H [facility] Stop: 07/06/22 09:44 Last Admin: 07/06/22 08:21 Dose: 133.33 mls/hr Documented By: KIRSTIN Thiamine HCl 200 mg/ Sodium (Chloride) 102 mls @ 204 mls/hr IV Q8H [facility] Albumin Human (Kedbumin 25 %) 100 mls @ 100 mls/hr IV Q1H [facility] Stop: 07/06/22 10:14 Insulin Glargine (Insulin Glargine,Hum.Rec.Anlog 100 Unit/Ml 10 Ml Vial) 45 unit SUBCUT BEDTIME [facility] Last Admin: 07/05/22 21:23 Dose: 45 unit Documented By: SERGEY Insulin Human Lispro (Insulin Lispro 100 Unit/Ml 3 Ml Vial) 0 unit SUBCUT QIDACHS [facility]; Protocol Last Admin: 07/06/22 08:35 Dose: Not Given Documented By: KIRSTIN Non-Admin Reason: Physician Held Med Lidocaine (Lidocaine 4 % Patch Adh..Patch) 1 patch TRANSDERMA DAILY [facility]; Protocol Last Admin: 07/05/22 12:06 Dose: 1 patch Documented By: ERIC Multivitamins/Vitamin C (Multivitamin Tablet) 1 tab PO DAILY [facility] Last Admin: 07/05/22 12:06 Dose: 1 tab Documented By: ERIC Non-Formulary Medication (Ramelteon) 1 tab PO BEDTIME [facility] Nystatin (Nystatin Powder 15 Gm Bottle) 1 appl TOPICAL BID [facility]; Protocol Last Admin: 07/05/22 21:24 Dose: Not Given Documented By: SERGEY Non-Admin Reason: Patient Refused Omeprazole (Omeprazole 20 Mg Capsule.) 20 mg PO BID@0630,1630 [facility] Last Admin: 07/06/22 06:09 Dose: Not Given Documented By: SERGEY Non-Admin Reason: Patient Refused Ondansetron HCl (Ondansetron Hcl 4 Mg/2 Ml Vial) 4 mg IVPUSH Q8H PRN PRN Reason: Nausea and Vomiting Last Admin: 07/05/22 08:49 Dose: 4 mg Documented By: ERIC Sodium Chloride (0.9 % Sodium Chloride Flush 3 Ml Syringe) 3 ml IVFLUSH QSHIFT [facility] Last Admin: 07/06/22 08:41 Dose: 3 ml Documented By: KIRSTIN Tamsulosin HCl (Tamsulosin Hcl 0.4 Mg Capsule) 0.4 mg PO DAILY@1700 [facility] Last Admin: 07/05/22 18:50 Dose: 0.4 mg Documented By: ELENAMAT Labs 07/05/22 07:28 07/06/22 07:25 Labs: Laboratory Results - last 24 hr 07/05/22 07/05/22 07/05/22 07:28 11:44 13:30 VBG pH VBG pCO2 VBG pO2 VBG HCO3 VBG O2 Saturation VBG Base Excess Anion Gap 16 Estim Creat Clear Calc 72.7 Estimated GFR > 60 POC Glucose 239 H Random Glucose 234 H Estimat Average Glucose Hemoglobin A1c % Calcium 8.8 Total Bilirubin 0.8 Direct Bilirubin 0.2 AST 111 H ALT 44 H Alkaline Phosphatase 128 H Total Creatine Kinase 1046 H Total Protein 6.4 L Albumin 3.6 Urine Color Urine Appearance Urine pH Ur Specific [place] Urine Protein Urine Glucose (UA) Urine Ketones Urine Blood Urine Nitrite Ur Leukocyte Esterase Urine RBC Urine WBC Ur Squamous Epith Cells Urine Bacteria Hyaline Casts Urine Osmolality Ur Random Sodium Ur Random Potassium Ur Random Chloride Urine Creatinine Urine Opiates Screen Urine Fentanyl Screen Ur Barbiturates Screen Ur Phencyclidine Scrn Ur Amphetamines Screen U Benzodiazepines Scrn Urine Cocaine Screen U Marijuana (THC) Screen 07/05/22 07/05/22 07/05/22 14:38 14:38 14:38 VBG pH VBG pCO2 VBG pO2 VBG HCO3 VBG O2 Saturation VBG Base Excess Anion Gap Estim Creat Clear Calc Estimated GFR POC Glucose Random Glucose Estimat Average Glucose Hemoglobin A1c % Calcium Total Bilirubin Direct Bilirubin AST ALT Alkaline Phosphatase Total Creatine Kinase Total Protein Albumin Urine Color Yellow Urine Appearance Clear Urine pH 6.0 Ur Specific [place] 1.025 Urine Protein 100 (2+) H Urine Glucose (UA) 500 H Urine Ketones Trace Urine Blood Negative Urine Nitrite Negative Ur Leukocyte Esterase Trace H Urine RBC 0-2 Urine WBC 0-5 Ur Squamous Epith Cells 0-2 Urine Bacteria None Seen Hyaline Casts 3-5 Urine Osmolality 697 Ur Random Sodium Ur Random Potassium Ur Random Chloride Urine Creatinine Urine Opiates Screen Not Detected Urine Fentanyl Screen Not Detected Ur Barbiturates Screen Not Detected Ur Phencyclidine Scrn Not Detected Ur Amphetamines Screen Not Detected U Benzodiazepines Scrn Not Detected Urine Cocaine Screen Not Detected U Marijuana (THC) Screen Not Detected 07/05/22 07/05/22 07/05/22 14:38 17:15 17:26 VBG pH 7.44 H VBG pCO2 40 VBG pO2 45 VBG HCO3 27 H VBG O2 Saturation 70.0 VBG Base Excess 3.1 Anion Gap 16 Estim Creat Clear Calc 73.3 Estimated GFR > 60 POC Glucose Random Glucose 222 H Estimat Average Glucose Hemoglobin A1c % Calcium 8.7 Total Bilirubin Direct Bilirubin AST ALT Alkaline Phosphatase Total Creatine Kinase Total Protein Albumin Urine Color Urine Appearance Urine pH Ur Specific [place] Urine Protein Urine Glucose (UA) Urine Ketones Urine Blood Urine Nitrite Ur Leukocyte Esterase Urine RBC Urine WBC Ur Squamous Epith Cells Urine Bacteria Hyaline Casts Urine Osmolality Ur Random Sodium < 20.0 Ur Random Potassium 26.1 Ur Random Chloride 32.0 Urine Creatinine 143.88 Urine Opiates Screen Urine Fentanyl Screen Ur Barbiturates Screen Ur Phencyclidine Scrn Ur Amphetamines Screen U Benzodiazepines Scrn Urine Cocaine Screen U Marijuana (THC) Screen 07/05/22 07/05/22 07/05/22 17:56 19:29 20:55 VBG pH VBG pCO2 VBG pO2 VBG HCO3 VBG O2 Saturation VBG Base Excess Anion Gap 17 Estim Creat Clear Calc 65.3 Estimated GFR 56 POC Glucose 215 H 188 H Random Glucose 277 H Estimat Average Glucose Hemoglobin A1c % Calcium 8.6 Total Bilirubin Direct Bilirubin AST ALT Alkaline Phosphatase Total Creatine Kinase Total Protein Albumin Urine Color Urine Appearance Urine pH Ur Specific [place] Urine Protein Urine Glucose (UA) Urine Ketones Urine Blood Urine Nitrite Ur Leukocyte Esterase Urine RBC Urine WBC Ur Squamous Epith Cells Urine Bacteria Hyaline Casts Urine Osmolality Ur Random Sodium Ur Random Potassium Ur Random Chloride Urine Creatinine Urine Opiates Screen Urine Fentanyl Screen Ur Barbiturates Screen Ur Phencyclidine Scrn Ur Amphetamines Screen U Benzodiazepines Scrn Urine Cocaine Screen U Marijuana (THC) Screen 07/06/22 07/06/22 07/06/22 07:25 07:25 07:25 VBG pH VBG pCO2 VBG pO2 VBG HCO3 VBG O2 Saturation VBG Base Excess Anion Gap 14 Cancelled Estim Creat Clear Calc 55.0 Cancelled Estimated GFR 46 Cancelled POC Glucose Random Glucose 227 H Cancelled Estimat Average Glucose 174 Hemoglobin A1c % 7.7 Calcium 9.0 Cancelled Total Bilirubin Direct Bilirubin AST ALT Alkaline Phosphatase Total Creatine Kinase Total Protein Albumin Urine Color Urine Appearance Urine pH Ur Specific [place] Urine Protein Urine Glucose (UA) Urine Ketones Urine Blood Urine Nitrite Ur Leukocyte Esterase Urine RBC Urine WBC Ur Squamous Epith Cells Urine Bacteria Hyaline Casts Urine Osmolality Ur Random Sodium Ur Random Potassium Ur Random Chloride Urine Creatinine Urine Opiates Screen Urine Fentanyl Screen Ur Barbiturates Screen Ur Phencyclidine Scrn Ur Amphetamines Screen U Benzodiazepines Scrn Urine Cocaine Screen U Marijuana (THC) Screen 07/06/22 07/06/22 07:25 07:38 VBG pH VBG pCO2 VBG pO2 VBG HCO3 VBG O2 Saturation VBG Base Excess Anion Gap Cancelled Estim Creat Clear Calc Cancelled Estimated GFR Cancelled POC Glucose 218 H Random Glucose Cancelled Estimat Average Glucose Hemoglobin A1c % Calcium Cancelled Total Bilirubin Direct Bilirubin AST ALT Alkaline Phosphatase Total Creatine Kinase Total Protein Albumin Urine Color Urine Appearance Urine pH Ur Specific [place] Urine Protein Urine Glucose (UA) Urine Ketones Urine Blood Urine Nitrite Ur Leukocyte Esterase Urine RBC Urine WBC Ur Squamous Epith Cells Urine Bacteria Hyaline Casts Urine Osmolality Ur Random Sodium Ur Random Potassium Ur Random Chloride Urine Creatinine Urine Opiates Screen Urine Fentanyl Screen Ur Barbiturates Screen Ur Phencyclidine Scrn Ur Amphetamines Screen U Benzodiazepines Scrn Urine Cocaine Screen U Marijuana (THC) Screen Microbiology Microbiology Results: Microbiology 07/04/22 14:07 Blood Culture - Preliminary Blood - Venous Prelim: GPC Gram Stain only 07/04/22 12:44 Blood Culture - Preliminary Blood - Venous No growth after 24 hours. Assessment and Plan (1) Metabolic acidosis: Status: Acute (2) Cellulitis of scrotum: Status: Acute (3) Acute hyponatremia: Status: Acute (4) Electrolyte abnormality: Status: Acute (5) Rhabdomyolysis: Status: Acute Plan Hospital day-3: 66 year old M with a PMH of alcohol abuse, anxiety, copd, DM, chronic HFpEF, HLD, HTN, obesity who presents to the ED after paramedics were called in by a friend. 1. hypotension: possible hypovolemic( possible dehydration and not much po intake ) albumin on admision was fine d/w icu 2 bags albumin was ordered. 2.acute Hyponatremia /rhabdomylysis: sodium improvin last is 125 moniter bmp q4-6hr(sodium? goal adjustment is 6-8 meq /24 hrs), nephrology followin 2. Poorly controlled DM with hyperglycemia : fs flactuatin -Continue basal insulin and fs with sliding scale coverage. -adjust as indicated Hemoglobin A1c 3.EtOH He said he did not drink for a month ? -not in withdrawal at this time, will monitor with [facility] Will add service desk specialist consult.? Continue thiamine and folic acid. 4. Chronic HFpEF -well compensated at this time 5. mild Cellulitis scrotom vs fungal infection no sepsis lactic acid normal blood cultures sent d/w ED 1 time bp boderline was possible error ,not due to sepsis. complete course of linezolid and as per ID Added urology evaluation and ID input. 6. Metabolic acidosis :? Due to alcoholic and starvation ketosis metabolic acidosis alcoholic /starvation -improved with hydration. 7. Elevated LFTs: Possible related to alcohol use.? Monitor LFTs. 8.fall: ct head and cspine neg xary of hip/shoulder : mild djd moniter ,ambulate . prn pain meds tylenol , gabapentine ,lidocaine patch inpatient need:? Patient needs critical care level of care due to persistent hypotension and also electrolytic abnormalities. Patient is transferred to ICU. Time Spent With Patient Time: Total time managing care of this patient today ____ minutes. Quality Stroke Does the patient have a stroke diagnosis?: No VTE Prior VTE?: No VTE Risk Level:: Medical - moderate - high VTE Device Contraindication: N/A - Device Ordered VTE Drug Contraindication: N/A - Med Ordered
[2022-07-06 09:04] LABS: ABG Base Excess 10.5 mmol/L; ABG HCO3 37 mmol/L (22-26); ABG pCO2 59 mmHg (32-45); ABG pO2 157 mmHg (83-108)
--- NOTE | 2022-07-06 09:36 | P.CDIC_ITS ---
CDI Concurrent Query Documentation Clarification: PHYSICIAN'S DOCUMENTATION REQUEST Date of Query: 07/06/22 0937 Patient Name: Kenneth Aragon Admit Date: 07/04/22 Dear Doctor, A review of the medical record indicates additional documentation may be needed. Please review below and update the documentation accordingly. Clinical Indicators: Risk Factors/Clinical Indicators/Treatments per MD progress note 07/06/22: Metabolic acidosis :? Due to alcoholic and starvation ketosis metabolic acidosis alcoholic /starvation -improved with hydration. Clarify which of the following accurately represents the acuity of the metabolic acidosis. Possible options might include: * Acute metabolic acidosis * Chronic metabolic acidosis * Other ? please specify * Unable to determine Use of terms such as suspected, likely, concern for, or probable (associated with a specific diagnosis that is being evaluated, monitored, or treated as if it exists) are acceptable and can be coded in the inpatient setting, when documented at the time of discharge. Thank you, Phylicia Da Silva RN Extension: [phone] Please use your independent medical judgment in providing your response. THIS QUERY IS PART OF THE PERMANENT MEDICAL RECORD Provider Response: Other Other Diagnosis: acute metbolic acidosis
[2022-07-06] MEDS: Norepinephrine Bitartrate/D5W 8 MG/250 ML PLAST..BAG 8.81 MG IV (09:48)
--- NOTE | 2022-07-06 10:22 | PM.CCPN ---
Subjective Subjective Date of Service: 07/06/22 Interval History: 66-year-old gentleman with underlying history of alcohol dependence, COPD, diabetes mellitus, chronic diastoliccongestive heart failure, obesity admitted on 07/04/2022 with generalized weakness after unable to get up from the floor for 2 days. Patient was noted to have hyponatremia with a rhabdomyolysis inhalers admitted to [facility] medical [facility]. Hospital course significant for development of Gram-positive bacteremia with hypotension with poor response to initial albumin infusion requiring initiation of pressor support and transfer to intensive care unit. Critical Care Time (minutes): 60 Physical Exam Vital Signs: Vital Signs: Last Vital Signs Temp 99.0 F 07/06/22 07:30 Pulse 101 H 07/06/22 09:48 Resp 20 07/06/22 09:00 BP 77/47 L 07/06/22 09:48 Pulse Ox 89 L 07/06/22 09:00 O2 Del Method 07/06/22 09:00 BMI result Body Mass Index 29.7 Const: General: no acute distress and lethargic ( [place]) Orientation/consciousness: lethargic ( [place]) Eyes: Sclerae: sclerae normal EOM: EOMs intact bilaterally Neck: Neck: Yes no lymphadenopathy, Yes trachea midline and Yes supple Resp: Effort & Inspection: normal respiratory effort and no respiratory distress Auscultation: clear to auscultation bilaterally Cardio: Rate: tachycardic Rhythm: regular rhythm Heart sounds: no gallops, no murmurs and no rubs GI: Palpation (GI): Soft to palpation and Other GI palpation findings present ( Nontender) Auscultation: normal bowel sounds Extrem: General: No clubbing, No cyanosis and Yes edema ( trace bilateral) Objective Data Labs 07/05/22 07:28 07/06/22 07:25 Labs: Laboratory Results - last 24 hr 07/05/22 07/05/22 07/05/22 11:44 13:30 14:38 O2 Saturation ABG pH at Pt Temp ABG pCO2 at Pt Temp ABG pO2 at Pt Temp ABG HCO3 ABG Base Excess (Actual) VBG pH VBG pCO2 VBG pO2 VBG HCO3 VBG O2 Saturation VBG Base Excess Sodium 121 L Potassium 4.1 Chloride 87 L Carbon Dioxide 22 Anion Gap 16 BUN 25 H Creatinine 1.15 Estim Creat Clear Calc 72.7 Estimated GFR > 60 POC Glucose 239 H Random Glucose 234 H Estimat Average Glucose Hemoglobin A1c % Calcium 8.8 Total Bilirubin 0.8 Direct Bilirubin 0.2 AST 111 H ALT 44 H Alkaline Phosphatase 128 H Total Protein 6.4 L Albumin 3.6 Urine Color Urine Appearance Urine pH Ur Specific [place] Urine Protein Urine Glucose (UA) Urine Ketones Urine Blood Urine Nitrite Ur Leukocyte Esterase Urine RBC Urine WBC Ur Squamous Epith Cells Urine Bacteria Hyaline Casts Urine Osmolality 697 Ur Random Sodium Ur Random Potassium Ur Random Chloride Urine Creatinine Urine Opiates Screen Urine Fentanyl Screen Ur Barbiturates Screen Ur Phencyclidine Scrn Ur Amphetamines Screen U Benzodiazepines Scrn Urine Cocaine Screen U Marijuana (THC) Screen 07/05/22 07/05/22 07/05/22 14:38 14:38 14:38 O2 Saturation ABG pH at Pt Temp ABG pCO2 at Pt Temp ABG pO2 at Pt Temp ABG HCO3 ABG Base Excess (Actual) VBG pH VBG pCO2 VBG pO2 VBG HCO3 VBG O2 Saturation VBG Base Excess Sodium Potassium Chloride Carbon Dioxide Anion Gap BUN Creatinine Estim Creat Clear Calc Estimated GFR POC Glucose Random Glucose Estimat Average Glucose Hemoglobin A1c % Calcium Total Bilirubin Direct Bilirubin AST ALT Alkaline Phosphatase Total Protein Albumin Urine Color Yellow Urine Appearance Clear Urine pH 6.0 Ur Specific [place] 1.025 Urine Protein 100 (2+) H Urine Glucose (UA) 500 H Urine Ketones Trace Urine Blood Negative Urine Nitrite Negative Ur Leukocyte Esterase Trace H Urine RBC 0-2 Urine WBC 0-5 Ur Squamous Epith Cells 0-2 Urine Bacteria None Seen Hyaline Casts 3-5 Urine Osmolality Ur Random Sodium < 20.0 Ur Random Potassium 26.1 Ur Random Chloride 32.0 Urine Creatinine 143.88 Urine Opiates Screen Not Detected Urine Fentanyl Screen Not Detected Ur Barbiturates Screen Not Detected Ur Phencyclidine Scrn Not Detected Ur Amphetamines Screen Not Detected U Benzodiazepines Scrn Not Detected Urine Cocaine Screen Not Detected U Marijuana (THC) Screen Not Detected 07/05/22 07/05/22 07/05/22 17:15 17:26 17:56 O2 Saturation ABG pH at Pt Temp ABG pCO2 at Pt Temp ABG pO2 at Pt Temp ABG HCO3 ABG Base Excess (Actual) VBG pH 7.44 H VBG pCO2 40 VBG pO2 45 VBG HCO3 27 H VBG O2 Saturation 70.0 VBG Base Excess 3.1 Sodium 126 L Potassium 3.7 Chloride 88 L Carbon Dioxide 26 Anion Gap 16 BUN 25 H Creatinine 1.14 Estim Creat Clear Calc 73.3 Estimated GFR > 60 POC Glucose 215 H Random Glucose 222 H Estimat Average Glucose Hemoglobin A1c % Calcium 8.7 Total Bilirubin Direct Bilirubin AST ALT Alkaline Phosphatase Total Protein Albumin Urine Color Urine Appearance Urine pH Ur Specific [place] Urine Protein Urine Glucose (UA) Urine Ketones Urine Blood Urine Nitrite Ur Leukocyte Esterase Urine RBC Urine WBC Ur Squamous Epith Cells Urine Bacteria Hyaline Casts Urine Osmolality Ur Random Sodium Ur Random Potassium Ur Random Chloride Urine Creatinine Urine Opiates Screen Urine Fentanyl Screen Ur Barbiturates Screen Ur Phencyclidine Scrn Ur Amphetamines Screen U Benzodiazepines Scrn Urine Cocaine Screen U Marijuana (THC) Screen 07/05/22 07/05/22 07/06/22 19:29 20:55 07:25 O2 Saturation ABG pH at Pt Temp ABG pCO2 at Pt Temp ABG pO2 at Pt Temp ABG HCO3 ABG Base Excess (Actual) VBG pH VBG pCO2 VBG pO2 VBG HCO3 VBG O2 Saturation VBG Base Excess Sodium 125 L 125 L Potassium 5.0 D 4.1 Chloride 90 L 91 L Carbon Dioxide 23 24 Anion Gap 17 14 BUN 25 H 28 H Creatinine 1.28 1.52 H Estim Creat Clear Calc 65.3 55.0 Estimated GFR 56 46 POC Glucose 188 H Random Glucose 277 H 227 H Estimat Average Glucose Hemoglobin A1c % Calcium 8.6 9.0 Total Bilirubin Direct Bilirubin AST ALT Alkaline Phosphatase Total Protein Albumin Urine Color Urine Appearance Urine pH Ur Specific [place] Urine Protein Urine Glucose (UA) Urine Ketones Urine Blood Urine Nitrite Ur Leukocyte Esterase Urine RBC Urine WBC Ur Squamous Epith Cells Urine Bacteria Hyaline Casts Urine Osmolality Ur Random Sodium Ur Random Potassium Ur Random Chloride Urine Creatinine Urine Opiates Screen Urine Fentanyl Screen Ur Barbiturates Screen Ur Phencyclidine Scrn Ur Amphetamines Screen U Benzodiazepines Scrn Urine Cocaine Screen U Marijuana (THC) Screen 07/06/22 07/06/22 07/06/22 07:25 07:25 07:25 O2 Saturation ABG pH at Pt Temp ABG pCO2 at Pt Temp ABG pO2 at Pt Temp ABG HCO3 ABG Base Excess (Actual) VBG pH VBG pCO2 VBG pO2 VBG HCO3 VBG O2 Saturation VBG Base Excess Sodium Cancelled Cancelled Potassium Cancelled Cancelled Chloride Cancelled Cancelled Carbon Dioxide Cancelled Cancelled Anion Gap Cancelled Cancelled BUN Cancelled Cancelled Creatinine Cancelled Cancelled Estim Creat Clear Calc Cancelled Cancelled Estimated GFR Cancelled Cancelled POC Glucose Random Glucose Cancelled Cancelled Estimat Average Glucose 174 Hemoglobin A1c % 7.7 Calcium Cancelled Cancelled Total Bilirubin Direct Bilirubin AST ALT Alkaline Phosphatase Total Protein Albumin Urine Color Urine Appearance Urine pH Ur Specific [place] Urine Protein Urine Glucose (UA) Urine Ketones Urine Blood Urine Nitrite Ur Leukocyte Esterase Urine RBC Urine WBC Ur Squamous Epith Cells Urine Bacteria Hyaline Casts Urine Osmolality Ur Random Sodium Ur Random Potassium Ur Random Chloride Urine Creatinine Urine Opiates Screen Urine Fentanyl Screen Ur Barbiturates Screen Ur Phencyclidine Scrn Ur Amphetamines Screen U Benzodiazepines Scrn Urine Cocaine Screen U Marijuana (THC) Screen 07/06/22 07/06/22 07:38 08:57 O2 Saturation 100.0 ABG pH at Pt Temp 7.40 ABG pCO2 at Pt Temp 59 H ABG pO2 at Pt Temp 157 H ABG HCO3 37 H ABG Base Excess (Actual) 10.5 VBG pH VBG pCO2 VBG pO2 VBG HCO3 VBG O2 Saturation VBG Base Excess Sodium Potassium Chloride Carbon Dioxide Anion Gap BUN Creatinine Estim Creat Clear Calc Estimated GFR POC Glucose 218 H Random Glucose Estimat Average Glucose Hemoglobin A1c % Calcium Total Bilirubin Direct Bilirubin AST ALT Alkaline Phosphatase Total Protein Albumin Urine Color Urine Appearance Urine pH Ur Specific [place] Urine Protein Urine Glucose (UA) Urine Ketones Urine Blood Urine Nitrite Ur Leukocyte Esterase Urine RBC Urine WBC Ur Squamous Epith Cells Urine Bacteria Hyaline Casts Urine Osmolality Ur Random Sodium Ur Random Potassium Ur Random Chloride Urine Creatinine Urine Opiates Screen Urine Fentanyl Screen Ur Barbiturates Screen Ur Phencyclidine Scrn Ur Amphetamines Screen U Benzodiazepines Scrn Urine Cocaine Screen U Marijuana (THC) Screen Microbiology Microbiology Results: Microbiology 07/04/22 14:07 Blood - Venous Blood Culture - Preliminary Prelim: GPC Gram Stain only 07/04/22 12:44 Blood - Venous Blood Culture - Preliminary No growth after 24 hours. Progress Note: A&P Assessment and plan (1) Gram-positive bacteremia: Status: Acute (2) Acute hyponatremia: Status: Acute (3) Acute respiratory failure with hypoxia: Status: Acute (4) Acute renal failure: Status: Acute (5) Rhabdomyolysis: Status: Acute (6) Alcohol abuse: Status: Acute (7) Diastolic heart failure: Status: Acute (8) DMII (diabetes mellitus, type 2): Status: Acute Plan Assessment: 66-year-old gentleman admitted with weakness, acute kidney injury in rhabdomyolysis after unable to get from the flow for 2 days with hospital course complicated by Gram-positive bacteremia with hypotension requiring pressor support Plan: Neuro: metabolic versus septic encephalopathy, continue to monitor clinically. Cardiac: Septic shock, continue to titrate off pressor support as tolerated. Pulmonary: acute respiratory failure with hypoxia likely secondary to underlying obstructive sleep apnea and pulmonary edema on the background of known congestive heart failure, continue to titrate off supplemental oxygen as tolerated. Renal: Acute renal failure with rhabdomyolysis, CPK is improving. Non oliguric. Continue to monitor renal indices and urine output. Endo: No acute issues. GI: No acute issues. ID: Gram-positive bacteremia, empirically covered with broad-spectrum antibiotics. Cultures are pending. Heme/Onc: No acute issues. Psych: No acute issues. Underlying anxiety. Miscellaneous: No acute issues. Prophylaxis: Lovenox Diet: nothing by mouth Critical care time spent: 60 minutes Quality Stroke Does the patient have a stroke diagnosis?: No VTE Prior VTE?: No VTE Risk Level:: Medical - moderate - high VTE Device Contraindication: N/A - Device Ordered VTE Drug Contraindication: N/A - Med Ordered
[2022-07-06 11:00] LABS: Hematocrit 34.5 % (42.0-52.0); Hemoglobin 12.1 g/dl (14.0-18.0); Mean Corpuscular HGB Conc 35.1 g/dl (31.0-36.0); Mean Corpuscular Hemoglobin 30.8 pg (27.0-33.0); Mean Corpuscular Volume 87.8 fL (80.0-98.0); Mean Platelet Volume 8.8 fL (9.4-12.4); Platelet Count 149 X10*3/uL (160-400); Red Blood Count 3.93 X10*6/uL (4.60-5.80); Red Cell Distribution Width 12.7 % (11.0-16.0)
[2022-07-06 11:14] LABS: Glucose, Whole Blood 172 mg/dL (60-115)
[2022-07-06 11:20] LABS: Anion Gap 13 (12-20); Blood Urea Nitrogen 29 mg/dL (9-16); Carbon Dioxide 28 mmol/L (22-29); Chloride 90 mmol/L (96-108); Creatinine Clr Calc Pharmacy 55.7; Estimated Glomerular Filt Rate 47; Glucose Random 210 mg/dL (60-115); Potassium 3.9 mmol/L (3.3-5.1); Sodium 127 mmol/L (135-145)
[2022-07-06 11:21] LABS: Lactic Acid 1.6 mmol/L (0.5-2.0)
[2022-07-06] MEDS: Piperacillin Sodium/Tazobactam 3.375 GM in 0.9 % Sodium Chloride 50 ML IV ×3 (11:53→22:16)
--- NOTE | 2022-07-06 11:57 | PM.SEPBOLA4 ---
Sepsis Bolus Exclusion Sepsis Bolus Exclusion Date of Occurrence: 07/06/22 This patient met severe sepsis criteria due to the following condition(s):: Hypotension In my clinical judgement the administration of 30 ml/kg of crystalloid would be detrimental to this patient due to the patient's following conditions:: Concern for fluid overload Replace the 30 mls/kg with (*zero amount not acceptable): *Note: One of the mathis must be documented Colloids amount given in mls:: 200 At a rate of (must be > 125 cchr):: 133
--- NOTE | 2022-07-06 12:16 | PM.PNNEP ---
Subjective Subjective Date of Service: 07/06/22 Interval history: Seen and examined, events noted Currently requiring pressors Physical Exam Vital Signs: Vital Signs: Last Vital Signs Temp 99.0 F 07/06/22 07:30 Pulse 99 07/06/22 11:53 Resp 18 07/06/22 11:26 BP 119/58 L 07/06/22 11:53 Pulse Ox 93 07/06/22 11:00 O2 Del Method 07/06/22 11:00 BMI result Body Mass Index 29.7 Const: Other: Obese, disheveled HEENT: Other: PERRLA Neck: Other: supple, no masses or thyroid enlargement Chest: Other: Prolonged exp phase with wheezes observable apnea Cardio: Other: RRR, No JVD GI: Other: soft, abdomen nontender to palpation, bowel sounds present Extrem: Other: Dry skin no signif edema Objective Data Labs 07/06/22 10:53 07/06/22 10:53 Labs: Laboratory Results - last 24 hr 07/05/22 07/05/22 07/05/22 11:44 13:30 14:38 WBC RBC Hgb Hct MCV MCH MCHC RDW Plt Count MPV Absolute Nucleated RBC Nucleated RBC % (auto) O2 Saturation ABG pH at Pt Temp ABG pCO2 at Pt Temp ABG pO2 at Pt Temp ABG HCO3 ABG Base Excess (Actual) VBG pH VBG pCO2 VBG pO2 VBG HCO3 VBG O2 Saturation VBG Base Excess Sodium Potassium Chloride Carbon Dioxide Anion Gap BUN Creatinine Estim Creat Clear Calc Estimated GFR POC Glucose 239 H Random Glucose Estimat Average Glucose Hemoglobin A1c % Lactic Acid Calcium Total Bilirubin 0.8 Direct Bilirubin 0.2 AST 111 H ALT 44 H Alkaline Phosphatase 128 H Total Protein 6.4 L Albumin 3.6 Urine Color Urine Appearance Urine pH Ur Specific [place] Urine Protein Urine Glucose (UA) Urine Ketones Urine Blood Urine Nitrite Ur Leukocyte Esterase Urine RBC Urine WBC Ur Squamous Epith Cells Urine Bacteria Hyaline Casts Urine Osmolality 697 Ur Random Sodium Ur Random Potassium Ur Random Chloride Urine Creatinine Urine Opiates Screen Urine Fentanyl Screen Ur Barbiturates Screen Ur Phencyclidine Scrn Ur Amphetamines Screen U Benzodiazepines Scrn Urine Cocaine Screen U Marijuana (THC) Screen 07/05/22 07/05/22 07/05/22 14:38 14:38 14:38 WBC RBC Hgb Hct MCV MCH MCHC RDW Plt Count MPV Absolute Nucleated RBC Nucleated RBC % (auto) O2 Saturation ABG pH at Pt Temp ABG pCO2 at Pt Temp ABG pO2 at Pt Temp ABG HCO3 ABG Base Excess (Actual) VBG pH VBG pCO2 VBG pO2 VBG HCO3 VBG O2 Saturation VBG Base Excess Sodium Potassium Chloride Carbon Dioxide Anion Gap BUN Creatinine Estim Creat Clear Calc Estimated GFR POC Glucose Random Glucose Estimat Average Glucose Hemoglobin A1c % Lactic Acid Calcium Total Bilirubin Direct Bilirubin AST ALT Alkaline Phosphatase Total Protein Albumin Urine Color Yellow Urine Appearance Clear Urine pH 6.0 Ur Specific [place] 1.025 Urine Protein 100 (2+) H Urine Glucose (UA) 500 H Urine Ketones Trace Urine Blood Negative Urine Nitrite Negative Ur Leukocyte Esterase Trace H Urine RBC 0-2 Urine WBC 0-5 Ur Squamous Epith Cells 0-2 Urine Bacteria None Seen Hyaline Casts 3-5 Urine Osmolality Ur Random Sodium < 20.0 Ur Random Potassium 26.1 Ur Random Chloride 32.0 Urine Creatinine 143.88 Urine Opiates Screen Not Detected Urine Fentanyl Screen Not Detected Ur Barbiturates Screen Not Detected Ur Phencyclidine Scrn Not Detected Ur Amphetamines Screen Not Detected U Benzodiazepines Scrn Not Detected Urine Cocaine Screen Not Detected U Marijuana (THC) Screen Not Detected 07/05/22 07/05/22 07/05/22 17:15 17:26 17:56 WBC RBC Hgb Hct MCV MCH MCHC RDW Plt Count MPV Absolute Nucleated RBC Nucleated RBC % (auto) O2 Saturation ABG pH at Pt Temp ABG pCO2 at Pt Temp ABG pO2 at Pt Temp ABG HCO3 ABG Base Excess (Actual) VBG pH 7.44 H VBG pCO2 40 VBG pO2 45 VBG HCO3 27 H VBG O2 Saturation 70.0 VBG Base Excess 3.1 Sodium 126 L Potassium 3.7 Chloride 88 L Carbon Dioxide 26 Anion Gap 16 BUN 25 H Creatinine 1.14 Estim Creat Clear Calc 73.3 Estimated GFR > 60 POC Glucose 215 H Random Glucose 222 H Estimat Average Glucose Hemoglobin A1c % Lactic Acid Calcium 8.7 Total Bilirubin Direct Bilirubin AST ALT Alkaline Phosphatase Total Protein Albumin Urine Color Urine Appearance Urine pH Ur Specific [place] Urine Protein Urine Glucose (UA) Urine Ketones Urine Blood Urine Nitrite Ur Leukocyte Esterase Urine RBC Urine WBC Ur Squamous Epith Cells Urine Bacteria Hyaline Casts Urine Osmolality Ur Random Sodium Ur Random Potassium Ur Random Chloride Urine Creatinine Urine Opiates Screen Urine Fentanyl Screen Ur Barbiturates Screen Ur Phencyclidine Scrn Ur Amphetamines Screen U Benzodiazepines Scrn Urine Cocaine Screen U Marijuana (THC) Screen 07/05/22 07/05/22 07/06/22 19:29 20:55 07:25 WBC RBC Hgb Hct MCV MCH MCHC RDW Plt Count MPV Absolute Nucleated RBC Nucleated RBC % (auto) O2 Saturation ABG pH at Pt Temp ABG pCO2 at Pt Temp ABG pO2 at Pt Temp ABG HCO3 ABG Base Excess (Actual) VBG pH VBG pCO2 VBG pO2 VBG HCO3 VBG O2 Saturation VBG Base Excess Sodium 125 L 125 L Potassium 5.0 D 4.1 Chloride 90 L 91 L Carbon Dioxide 23 24 Anion Gap 17 14 BUN 25 H 28 H Creatinine 1.28 1.52 H Estim Creat Clear Calc 65.3 55.0 Estimated GFR 56 46 POC Glucose 188 H Random Glucose 277 H 227 H Estimat Average Glucose Hemoglobin A1c % Lactic Acid Calcium 8.6 9.0 Total Bilirubin Direct Bilirubin AST ALT Alkaline Phosphatase Total Protein Albumin Urine Color Urine Appearance Urine pH Ur Specific [place] Urine Protein Urine Glucose (UA) Urine Ketones Urine Blood Urine Nitrite Ur Leukocyte Esterase Urine RBC Urine WBC Ur Squamous Epith Cells Urine Bacteria Hyaline Casts Urine Osmolality Ur Random Sodium Ur Random Potassium Ur Random Chloride Urine Creatinine Urine Opiates Screen Urine Fentanyl Screen Ur Barbiturates Screen Ur Phencyclidine Scrn Ur Amphetamines Screen U Benzodiazepines Scrn Urine Cocaine Screen U Marijuana (THC) Screen 07/06/22 07/06/22 07/06/22 07:25 07:25 07:25 WBC RBC Hgb Hct MCV MCH MCHC RDW Plt Count MPV Absolute Nucleated RBC Nucleated RBC % (auto) O2 Saturation ABG pH at Pt Temp ABG pCO2 at Pt Temp ABG pO2 at Pt Temp ABG HCO3 ABG Base Excess (Actual) VBG pH VBG pCO2 VBG pO2 VBG HCO3 VBG O2 Saturation VBG Base Excess Sodium Cancelled Cancelled Potassium Cancelled Cancelled Chloride Cancelled Cancelled Carbon Dioxide Cancelled Cancelled Anion Gap Cancelled Cancelled BUN Cancelled Cancelled Creatinine Cancelled Cancelled Estim Creat Clear Calc Cancelled Cancelled Estimated GFR Cancelled Cancelled POC Glucose Random Glucose Cancelled Cancelled Estimat Average Glucose 174 Hemoglobin A1c % 7.7 Lactic Acid Calcium Cancelled Cancelled Total Bilirubin Direct Bilirubin AST ALT Alkaline Phosphatase Total Protein Albumin Urine Color Urine Appearance Urine pH Ur Specific [place] Urine Protein Urine Glucose (UA) Urine Ketones Urine Blood Urine Nitrite Ur Leukocyte Esterase Urine RBC Urine WBC Ur Squamous Epith Cells Urine Bacteria Hyaline Casts Urine Osmolality Ur Random Sodium Ur Random Potassium Ur Random Chloride Urine Creatinine Urine Opiates Screen Urine Fentanyl Screen Ur Barbiturates Screen Ur Phencyclidine Scrn Ur Amphetamines Screen U Benzodiazepines Scrn Urine Cocaine Screen U Marijuana (THC) Screen 07/06/22 07/06/22 07/06/22 07:38 08:57 10:53 WBC RBC Hgb Hct MCV MCH MCHC RDW Plt Count MPV Absolute Nucleated RBC Nucleated RBC % (auto) O2 Saturation 100.0 ABG pH at Pt Temp 7.40 ABG pCO2 at Pt Temp 59 H ABG pO2 at Pt Temp 157 H ABG HCO3 37 H ABG Base Excess (Actual) 10.5 VBG pH VBG pCO2 VBG pO2 VBG HCO3 VBG O2 Saturation VBG Base Excess Sodium 127 L Potassium 3.9 Chloride 90 L Carbon Dioxide 28 Anion Gap 13 BUN 29 H Creatinine 1.50 H Estim Creat Clear Calc 55.7 Estimated GFR 47 POC Glucose 218 H Random Glucose 210 H Estimat Average Glucose Hemoglobin A1c % Lactic Acid Calcium 9.0 Total Bilirubin Direct Bilirubin AST ALT Alkaline Phosphatase Total Protein Albumin Urine Color Urine Appearance Urine pH Ur Specific [place] Urine Protein Urine Glucose (UA) Urine Ketones Urine Blood Urine Nitrite Ur Leukocyte Esterase Urine RBC Urine WBC Ur Squamous Epith Cells Urine Bacteria Hyaline Casts Urine Osmolality Ur Random Sodium Ur Random Potassium Ur Random Chloride Urine Creatinine Urine Opiates Screen Urine Fentanyl Screen Ur Barbiturates Screen Ur Phencyclidine Scrn Ur Amphetamines Screen U Benzodiazepines Scrn Urine Cocaine Screen U Marijuana (THC) Screen 07/06/22 07/06/22 07/06/22 10:53 10:53 11:06 WBC 6.0 RBC 3.93 L Hgb 12.1 L Hct 34.5 L MCV 87.8 MCH 30.8 MCHC 35.1 RDW 12.7 Plt Count 149 L D MPV 8.8 L Absolute Nucleated RBC 0.000 Nucleated RBC % (auto) 0.0 O2 Saturation ABG pH at Pt Temp ABG pCO2 at Pt Temp ABG pO2 at Pt Temp ABG HCO3 ABG Base Excess (Actual) VBG pH VBG pCO2 VBG pO2 VBG HCO3 VBG O2 Saturation VBG Base Excess Sodium Potassium Chloride Carbon Dioxide Anion Gap BUN Creatinine Estim Creat Clear Calc Estimated GFR POC Glucose 172 H Random Glucose Estimat Average Glucose Hemoglobin A1c % Lactic Acid 1.6 Calcium Total Bilirubin Direct Bilirubin AST ALT Alkaline Phosphatase Total Protein Albumin Urine Color Urine Appearance Urine pH Ur Specific [place] Urine Protein Urine Glucose (UA) Urine Ketones Urine Blood Urine Nitrite Ur Leukocyte Esterase Urine RBC Urine WBC Ur Squamous Epith Cells Urine Bacteria Hyaline Casts Urine Osmolality Ur Random Sodium Ur Random Potassium Ur Random Chloride Urine Creatinine Urine Opiates Screen Urine Fentanyl Screen Ur Barbiturates Screen Ur Phencyclidine Scrn Ur Amphetamines Screen U Benzodiazepines Scrn Urine Cocaine Screen U Marijuana (THC) Screen Microbiology Microbiology Results: Microbiology 07/04/22 14:07 Blood - Venous Blood Culture - Preliminary Prelim: GPC Gram Stain only Prelim: GPR Gram Stain only 07/04/22 12:44 Blood - Venous Blood Culture - Preliminary No growth after 24 hours. Procedures Date of Service Date of Service: 07/06/22 Assessment & Plan Assessment and plan (1) Acute hyponatremia: Status: Acute (2) Rhabdomyolysis: Status: Acute Assessment and Plan: Level not of concern re: renal toxicity Plan - LAUREN c/w sepsis assoc ATN - Euvolemic vs hypovolemic HypoNa: Sna grad improving and Marianne << 20 c/w hypovol hypoNa REC: cont to ttrack UOP/renal func; avoid NToxins; avoid too raid corrention of SNa ( goal no more than 4-6 meq/24 hrs) will follwo with team D/W ICU team Time Spent With Patient Time: Total time managing care of this patient today ____ minutes. Progress Note: Quality Stroke Does the patient have a stroke diagnosis?: No
--- NOTE | 2022-07-06 12:49 | W.PM.IDCN ---
History of Present Illness Data of Consult Service Date: 07/06/22 Requesting physician: Jesus De Oliveira Primary Care Provider: Jaylen Cummings MD HPI Reason for consult: bacteremia ?infection He presents after being found on floor for two days. He has some redness/discomfort mentioned scrotal area as well as some upper leg. He has gram positive cocci and rods mentioned in blood ,final pending. Areas of redness resolved legs per patient. Review of Systems Review of Systems: Yes all other systems are reviewed and are negative PMFSH Past Medical History Medical History Acute diastolic CHF (congestive heart failure) Acute hyponatremia Acute respiratory failure with hypoxia LAUREN (acute kidney injury) Alcohol abuse Anxiety Bilateral pleural effusion Cellulitis, scrotum Contusion of rib on left side COPD (chronic obstructive pulmonary disease) Diabetes mellitus type 1 Diastolic dysfunction Diastolic heart failure DMII (diabetes mellitus, type 2) Elevated troponin Fall Fungal dermatitis HLD (hyperlipidemia) Hypertension Nonrheumatic aortic (valve) stenosis Obesity Pneumonia Family History Family History Father Diabetes Mother Diabetes Family history: reviewed and not pertinent Surgical History Surgical History H/O elbow surgery H/O shoulder surgery History of hydrocelectomy S/P TURP Social History Social History Household Members: None Housing: Apartment Do you presently have visiting nurse or other home services: No Unable to assess alcohol history related to: Unable to respond Alcohol intake: current Alcohol intake frequency: 3 or more drinks per day Alcohol type: hard liquor Patient Tobacco Use Status: Former Tobacco user Quit Date: 05/02/22 Tobacco use type: Cigar Years Smoked: 50 e-Cigarette/Vaping Use: Former Use Second Hand Smoke Exposure: No Advance Directives Date on File: 10/11/20 service: No Current occupational status: unemployed and disabled Meds Allergies Allergy/AdvReac Type Severity Reaction Status Date / Time ENVIRONMENTAL Allergy Mild SNEEZING, Uncoded 10/06/21 15:49 WATERY EYES Active Medications: Current Medications Acetaminophen (Acetaminophen 325 Mg Tablet) 650 mg PO Q6H PRN PRN Reason: Pain, Mild (Pain Scale 1-3) Last Admin: 07/05/22 08:36 Dose: 650 mg Aspirin (Aspirin Enteric Coated 81 Mg Tablet.Dr) 81 mg PO DAILY [facility] Last Admin: 07/06/22 08:43 Dose: Not Given Clotrimazole (Clotrimazole 1 % Cream 15 Gm Tube) 1 appl TOPICAL BID [facility]; Protocol Last Admin: 07/06/22 08:43 Dose: Not Given Albuterol Sulfate 2.5 mg/ (Ipratropium [place] 0.5 mg) 0 mg INHALE RQ4H WHILE AWAKE [facility] Last Admin: 07/06/22 11:19 Dose: 2.5 each Albuterol Sulfate 2.5 mg/ (Ipratropium [place] 0.5 mg) 0 mg INHALE Q3H PRN PRN Reason: sob Dextrose (Dextrose 50 % 25 Gm/50 Ml Syringe) 25 gm IVPUSH Q15M PRN; Protocol PRN Reason: per Hypoglycemia Standing Ord. Enoxaparin Sodium (Enoxaparin Sodium 40 Mg/0.4 Ml Syringe) 40 mg SUBCUT Q24H [facility] Last Admin: 07/05/22 18:49 Dose: 40 mg Folic Acid (Folic Acid 1 Mg Tablet) 1 mg PO BEDTIME [facility] Last Admin: 07/05/22 21:22 Dose: Not Given Glucose (Glucose Gel 15 Gm Gel..Gram.) 15 gm PO Q15M PRN; Protocol PRN Reason: per Hypoglycemia Standing Ord. Linezolid (Zyvox/D5w) 600 mg in 300 mls @ 300 mls/hr IV Q12H [facility] Last Admin: 07/06/22 08:41 Dose: Not Given Thiamine HCl 200 mg/ Sodium (Chloride) 102 mls @ 204 mls/hr IV Q8H [facility] Last Admin: 07/06/22 08:42 Dose: Not Given Norepinephrine Bitartrate (Levophed) 8 mg in 250 mls @ 0 mls/hr IV .Q0M [facility]; Protocol Last Titration: 07/06/22 11:53 Dose: 0.03 mcg/kg/min, 5.29 mls/hr Piperacillin Sod/Tazobactam (Sod 3.375 gm/ Sodium Chloride) 50 mls @ 100 mls/hr IV Q6H [facility] Last Infusion: 07/06/22 12:47 Dose: Infused Insulin Glargine (Insulin Glargine,Hum.Rec.Anlog 100 Unit/Ml 10 Ml Vial) 45 unit SUBCUT BEDTIME [facility] Last Admin: 07/05/22 21:23 Dose: 45 unit Insulin Human Lispro (Insulin Lispro 100 Unit/Ml 3 Ml Vial) 0 unit SUBCUT QIDACHS [facility]; Protocol Last Admin: 07/06/22 11:14 Dose: Not Given Multivitamins/Vitamin C (Multivitamin Tablet) 1 tab PO DAILY [facility] Last Admin: 07/06/22 08:42 Dose: Not Given Non-Formulary Medication (Ramelteon) 1 tab PO BEDTIME [facility] Nystatin (Nystatin Powder 15 Gm Bottle) 1 appl TOPICAL BID [facility]; Protocol Last Admin: 07/06/22 08:43 Dose: Not Given Omeprazole (Omeprazole 20 Mg Capsule.Dr) 20 mg PO BID@0630,1630 [facility] Last Admin: 07/06/22 06:09 Dose: Not Given Ondansetron HCl (Ondansetron Hcl 4 Mg/2 Ml Vial) 4 mg IVPUSH Q8H PRN PRN Reason: Nausea and Vomiting Last Admin: 07/05/22 08:49 Dose: 4 mg Sodium Chloride (0.9 % Sodium Chloride Flush 3 Ml Syringe) [facility] Last Admin: 07/06/22 08:41 Dose: 3 ml Home Medications Medication Instructions Recorded Confirmed Last Taken Type albuterol sulfate 90 mcg/actuation 2 puff inhalation Q4H PRN Wheezing 12/29/20 07/04/22 10/06/21 History aerosol inhaler simvastatin 20 mg tablet 1 tab PO BEDTIME 12/29/20 07/04/22 10/05/21 History thiamine HCl (vitamin B1) 100 mg 1 tab PO BEDTIME 12/29/20 07/04/22 10/05/21 History tablet aspirin 81 mg tablet,delayed 1 tab PO DAILY 02/04/21 07/04/22 12/11/21 History release buspirone 5 mg tablet 5 mg PO BID 02/04/21 07/04/22 12/11/21 History ramelteon 8 mg tablet 1 tab PO BEDTIME 05/12/21 07/04/22 10/05/21 History tamsulosin 0.4 mg capsule 1 cap PO DAILY@1700 05/12/21 07/04/22 10/06/21 History omeprazole 20 mg capsule,delayed 1 cap PO BID@0630,1630 06/01/21 07/04/22 10/06/21 History release insulin glargine 100 unit/mL 45 unit subcut BEDTIME 06/24/21 07/04/22 10/05/21 History subcutaneous solution (Lantus U-100 Insulin) gabapentin 300 mg capsule 300 mg PO TID 10/06/21 07/04/22 10/05/21 History multivitamin 1 tab PO DAILY 12/11/21 07/04/22 Unknown History folic acid 1 mg tablet 1 tab PO BEDTIME 03/16/22 07/04/22 Unknown History celecoxib 50 mg capsule 1 cap PO BID 07/04/22 07/04/22 Unknown History omega-3 300 mg-dha 120 mg-epa 180 1 cap PO DAILY 07/04/22 07/04/22 Unknown History mg-fish oil 1,000 mg capsule Physical Exam Vital Signs: Vital Signs: Last Vital Signs Temp 98.5 F 07/06/22 12:00 Pulse 99 07/06/22 12:00 Resp 13 07/06/22 12:00 BP 111/48 L 07/06/22 12:00 Pulse Ox 96 07/06/22 12:00 O2 Del Method Nasal Cannula 07/06/22 12:00 BMI result Body Mass Index 29.7 Extrem: Other: no cellulitis at this anca scrotum clear Results Labs 07/06/22 10:53 07/06/22 10:53 Labs: Short CBC 07/06/22 Range/Units 10:53 WBC 6.0 (4.8-10.8) X10*3/uL Hgb 12.1 L (14.0-18.0) g/dl Hct 34.5 L (42.0-52.0) % Plt Count 149 L D (160-400) X10*3/uL BMP 07/05/22 07/05/22 07/06/22 17:15 20:55 07:25 Sodium 126 L 125 L 125 L Potassium 3.7 5.0 D 4.1 Chloride 88 L 90 L 91 L Carbon Dioxide 24 BUN 25 H 25 H 28 H Creatinine 1.14 1.28 1.52 H Calcium 8.7 8.6 9.0 07/06/22 07/06/22 07/06/22 07:25 07:25 10:53 Sodium Cancelled Cancelled 127 L Potassium Cancelled Cancelled 3.9 Chloride Cancelled Cancelled 90 L Carbon Dioxide Cancelled Cancelled 28 BUN Cancelled Cancelled 29 H Creatinine Cancelled Cancelled 1.50 H Calcium Cancelled Cancelled 9.0 Liver Function 07/05/22 Range/Units 11:44 Total Bilirubin 0.8 (0.0-1.0) mg/dL Direct Bilirubin 0.2 (0.0-0.5) mg/dL AST 111 H (5-37) U/L ALT 44 H (0-40) U/L Alkaline Phosphatase 128 H (39-117) U/L Albumin 3.6 (3.5-5.0) g/dL Urine 07/05/22 Range/Units 14:38 Urine Color Yellow Urine Appearance Clear Urine pH 6.0 (5.0-9.0) Ur Specific Burt 1.025 (1.005-1.025) Urine Protein 100 (2+) H (Neg-Trace) mg/dL Urine Glucose (UA) 500 H (Negative) mg/dL Microbiology Microbiology Results: Microbiology 07/04/22 14:07 Blood - Venous Blood Culture - Preliminary Prelim: GPC Gram Stain only Prelim: GPR Gram Stain only 07/04/22 12:44 Blood - Venous Blood Culture - Preliminary No growth after 24 hours. Assessment and Plan (1) Gram-positive bacteremia: Status: Acute He has resolving cellulitis and bacteremia may be real or contaminant. 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 There is concern over sepsis due to cellulitis. (2) Cellulitis of scrotum: Status: Acute Plan Agree with piperacillin/tazobactam and linezolid at this time. Await final cultures. Duration of antibiotics to be determined. Time Spent With Patient Time: Total time managing care of this patient today ____ minutes.
[2022-07-06 14:03] LABS: ABG Refer to POC result
[2022-07-06 15:34] LABS: Glucose, Whole Blood 225 mg/dL (60-115)
[2022-07-06] MEDS: Insulin Lispro 100 UNIT/ML 3 ML VIAL SUBCUT ×2 (16:09→20:24)
[2022-07-06] MEDS: Omeprazole 20 MG CAPSULE.DR PO (16:10)
[2022-07-06] MEDS: Enoxaparin Sodium 40 MG/0.4 ML SYRINGE SUBCUT (16:10)
[2022-07-06] MEDS: Thiamine HCL 200 MG in 0.9 % Sodium Chloride 100 ML 204 MG IV (16:10)
[2022-07-06 20:15] LABS: Glucose, Whole Blood 309 mg/dL (60-115)
[2022-07-06] MEDS: Folic Acid 1 MG TABLET PO (20:24)
[2022-07-06] MEDS: Insulin Glargine,Hum.rec.anlog 100 UNIT/ML 10 ML VIAL 45 UNIT SUBCUT (20:24)
[2022-07-06] MEDS: Linezolid/D5W 600 MG/300 ML PIGGYBACK 300 MG IV (20:25)
--- NOTE | 2022-07-06 21:00 | PC.NURSE ---
Assumed care at 07:00. Patient had refused labs, MD re-ordered BMP, patient difficult venipuncture, and multiple tries failed, initially refusing fingerstick but eventually complied, MD to bedside due to patient with BP 70's/40's with monitor and manually, patient head lowered and feet elevated, MD ordered IVF bolus but then prioritized albumin, but patient with no IV access as left AC 18 gauge not functional. MD at bedside to assess patient. Patient drowsy, oriented to self, yelling at staff to leave him alone, only oriented to self. Due to hypotension, MD consulted intensive care MD, and order to transfer to ICU made and patient care transferred after report to ICU nurse.
[2022-07-07] VITALS (18 sets, daily range): BP systolic 94–145; BP diastolic 40–89; PULSE 65–90; RESP 11–20; TEMP 36.1–36.8; O2SAT 88–100; BMI 30.6
[2022-07-07] MEDS: Thiamine HCL 200 MG in 0.9 % Sodium Chloride 100 ML 204 MG IV ×3 (00:53→16:40)
[2022-07-07] MEDS: Acetaminophen 325 MG TABLET 975 MG PO (02:18)
--- NOTE | 2022-07-07 04:18 | PC.NURSE ---
Addendum entered by Wallace Lai RN 07/07/22 06:48: voided 200ml foul smelling urine...incontinant large amount soft brown stool Addendum entered by Wallace Lai RN 07/07/22 06:12: PATIENT SLEEPING...BRIEFLY AWAKE FOR AM ANTIBIOTIC...STATED I'M STILL IN EXCRUCIATING PAIN BUT DOZING WITHIN 30 SECONDS AFTERWARDS..RESPIRATIONS EASY...NSR HR 80-82,,,REPOSITIONED SELF TO RIGHT SIDE Addendum entered by Wallace Lai RN 07/07/22 04:57: PATIENT REFUSED AM LAB WORK Original Note: CARE ASSUMED 23:15...AWAKE..ALERT..ORIENTED X3 BUT VAGUE RESPONSES AT TIMES,,,RESISTANT TO CARE...NON-COMPLIANT WITH DIETARY AND FLUID RESTRICTIONS....C/O ARHTRITIC ARM AND LEG PAIN RATED 7/10..REQUESTED CELBREX TAKEN AT HOME..ICU PA AWARE..MED HELD D/T KIDNEY FUNCTION...TYLENOL 975 MO PO X1 GIVEN...LEVOPHED 0.05 MCG/KG/MIN AT HS WEANED OFF 1AM..BP REMAINS STABLE...NSR..NO ECTOPY
[2022-07-07] MEDS: Piperacillin Sodium/Tazobactam 3.375 GM in 0.9 % Sodium Chloride 50 ML IV ×3 (05:51→16:37)
[2022-07-07 07:04] LABS: MANUAL DIFF FLAG NO
[2022-07-07 07:08] LABS: Basophils Absolute Auto 0.1 X10*3/uL (0.0-0.2); Basophils Percent Auto 1.6 % (0-2); Eosinophils Absolute Auto 0.3 X10*3/uL (0.0-0.4); Eosinophils Percent Auto 7.9 % (0-4); Hematocrit 35.1 % (42.0-52.0); Hemoglobin 11.7 g/dl (14.0-18.0); Imm Gran Abs Auto 0.05 X10*3/uL (0.00-0.03); Imm Gran Pct Auto 1.2 % (0.0-0.4); Lymphocytes Absolute Auto 0.8 X10*3/uL (1.2-4.9); Lymphocytes Percent Auto 18.9 % (20-40); Mean Corpuscular HGB Conc 33.3 g/dl (31.0-36.0); Mean Corpuscular Hemoglobin 30.7 pg (27.0-33.0); Mean Corpuscular Volume 92.1 fL (80.0-98.0); Mean Platelet Volume 8.8 fL (9.4-12.4); Monocytes Absolute Auto 0.8 X10*3/uL (0.1-1.2); Monocytes Percent Auto 17.5 % (2-11); Neutrophils Absolute Auto 2.3 x10*3/uL (2.0-8.3); Neutrophils Percent Auto 52.9 % (45-73); Platelet Count 193 X10*3/uL (160-400); Red Blood Count 3.81 X10*6/uL (4.60-5.80); Venous Blood Gas Refer to POC result; White Blood Count 4.3 X10*3/uL (4.8-10.8)
[2022-07-07 07:10] LABS: VBG Base Excess 6.5 mmol/L; VBG HCO3 32 mmol/L (22-26); VBG pCO2 50 mmHg; VBG pH 7.41 (7.32-7.43); VBG pO2 146 mmHg
[2022-07-07 07:21] LABS: Albumin Level 3.8 g/dL (3.5-5.0); Anion Gap 12 (12-20); Blood Urea Nitrogen 24 mg/dL (9-16); Calcium 8.4 mg/dL (8.4-10.2); Carbon Dioxide 31 mmol/L (22-29); Chloride 92 mmol/L (96-108); Creatinine Clr Calc Pharmacy 62.8; Estimated Glomerular Filt Rate 53; Glucose Random 219 mg/dL (60-115); Magnesium 1.7 mg/dL (1.6-2.6); Phosphorus 3.4 mg/dL (2.7-4.5); Potassium 3.8 mmol/L (3.3-5.1); Sodium 131 mmol/L (135-145)
[2022-07-07 07:24] LABS: Glucose, Whole Blood 212 mg/dL (60-115)
[2022-07-07] MEDS: Linezolid/D5W 600 MG/300 ML PIGGYBACK 300 MG IV (07:43)
[2022-07-07] MEDS: Insulin Lispro 100 UNIT/ML 3 ML VIAL SUBCUT ×4 (07:58→21:00)
[2022-07-07] MEDS: Aspirin Enteric Coated 81 MG TABLET.DR PO (07:59)
[2022-07-07] MEDS: 0.9 % Sodium Chloride Flush 3 ML SYRINGE IVFLUSH (08:00)
[2022-07-07] MEDS: Clotrimazole 1 % Cream 15 GM TUBE 1 APPL TOPICAL (08:00)
--- NOTE | 2022-07-07 09:58 | P.PNCC_ITS ---
Subjective Subjective Date of Service: 07/07/22 Interval History: 66-year-old gentleman with underlying history of alcohol dependence, COPD, diabetes mellitus, chronic diastoliccongestive heart failure, obesity admitted on 07/04/2022 with generalized weakness after unable to get up from the floor for 2 days. Patient was noted to have hyponatremia with a rhabdomyolysis inhalers admitted to general medical [facility]. Hospital course significant for development of Gram-positive bacteremia with hypotension with poor response to initial albumin infusion requiring initiation of pressor support and transfer to intensive care unit. Titrated off pressors of a night. Critical Care Time (minutes): 0 Physical Exam Vital Signs: Vital Signs: Last Vital Signs Temp 97.0 F 07/07/22 08:00 Pulse 88 07/07/22 09:32 Resp 11 L 07/07/22 09:00 BP 104/84 07/07/22 09:32 Pulse Ox 100 07/07/22 07:00 O2 Del Method 07/07/22 07:00 O2 Flow Rate 2 07/07/22 07:00 FiO2 30 07/06/22 21:54 BMI result Body Mass Index 30.6 Const: General: no acute distress, alert and awake Eyes: Sclerae: sclerae normal EOM: EOMs intact bilaterally Neck: Neck: Yes no lymphadenopathy, Yes trachea midline and Yes supple Resp: Effort & Inspection: normal respiratory effort and no respiratory distress Auscultation: clear to auscultation bilaterally Cardio: Rate: regular rate Rhythm: regular rhythm Heart sounds: no gallops, no murmurs and no rubs GI: Palpation (GI): Soft to palpation and Other GI palpation findings present ( Nontender) Auscultation: normal bowel sounds Back/Spine/Pelvis: Other: scrotal cellulitis Extrem: General: No clubbing, No cyanosis and Yes edema ( Trace bilateral) Objective Data Labs 07/07/22 07:00 07/07/22 07:00 Labs: Laboratory Results - last 24 hr 07/06/22 07/06/22 07/06/22 10:53 10:53 10:53 WBC 6.0 RBC 3.93 L Hgb 12.1 L Hct 34.5 L MCV 87.8 MCH 30.8 MCHC 35.1 RDW 12.7 Plt Count 149 L D MPV 8.8 L Immature Gran % (Auto) Neut % (Auto) Lymph % (Auto) [place] % (Auto) Eos % (Auto) Baso % (Auto) Lymph # (Auto) [place] # (Auto) Eos # (Auto) Baso # (Auto) Abs Immat Gran (auto) Absolute Neuts (auto) Absolute Nucleated RBC 0.000 Nucleated RBC % (auto) 0.0 VBG pH VBG pCO2 VBG pO2 VBG HCO3 VBG O2 Saturation VBG Base Excess Sodium 127 L Potassium 3.9 Chloride 90 L Carbon Dioxide 28 Anion Gap 13 BUN 29 H Creatinine 1.50 H Estim Creat Clear Calc 55.7 Estimated GFR 47 POC Glucose Random Glucose 210 H Lactic Acid 1.6 Calcium 9.0 Phosphorus Magnesium Albumin 07/06/22 07/06/22 07/06/22 11:06 15:27 20:11 WBC RBC Hgb Hct MCV MCH MCHC RDW Plt Count MPV Immature Gran % (Auto) Neut % (Auto) Lymph % (Auto) [place] % (Auto) Eos % (Auto) Baso % (Auto) Lymph # (Auto) [place] # (Auto) Eos # (Auto) Baso # (Auto) Abs Immat Gran (auto) Absolute Neuts (auto) Absolute Nucleated RBC Nucleated RBC % (auto) VBG pH VBG pCO2 VBG pO2 VBG HCO3 VBG O2 Saturation VBG Base Excess Sodium Potassium Chloride Carbon Dioxide Anion Gap BUN Creatinine Estim Creat Clear Calc Estimated GFR POC Glucose 172 H 225 H 309 H Random Glucose Lactic Acid Calcium Phosphorus Magnesium Albumin 07/07/22 07/07/22 07/07/22 07:00 07:00 07:03 WBC 4.3 L RBC 3.81 L Hgb 11.7 L Hct 35.1 L MCV 92.1 MCH 30.7 MCHC 33.3 RDW 13.0 Plt Count 193 D MPV 8.8 L Immature Gran % (Auto) 1.2 H Neut % (Auto) 52.9 Lymph % (Auto) 18.9 L Howell % (Auto) 17.5 H Eos % (Auto) 7.9 H Baso % (Auto) 1.6 Lymph # (Auto) 0.8 L [place]ell # (Auto) 0.8 Eos # (Auto) 0.3 Baso # (Auto) 0.1 Abs Immat Gran (auto) 0.05 H Absolute Neuts (auto) 2.3 Absolute Nucleated RBC 0.000 Nucleated RBC % (auto) 0.0 VBG pH 7.41 VBG pCO2 50 VBG pO2 146 VBG HCO3 32 H VBG O2 Saturation 99.0 VBG Base Excess 6.5 Sodium 131 L Potassium 3.8 Chloride 92 L Carbon Dioxide 31 H Anion Gap 12 BUN 24 H Creatinine 1.35 Estim Creat Clear Calc 62.8 Estimated GFR 53 POC Glucose Random Glucose 219 H Lactic Acid Calcium 8.4 D Phosphorus 3.4 Magnesium 1.7 Albumin 3.8 07/07/22 07:20 WBC RBC Hgb Hct MCV MCH MCHC RDW Plt Count MPV Immature Gran % (Auto) Neut % (Auto) Lymph % (Auto) [place]ell % (Auto) Eos % (Auto) Baso % (Auto) Lymph # (Auto) [place]ell # (Auto) Eos # (Auto) Baso # (Auto) Abs Immat Gran (auto) Absolute Neuts (auto) Absolute Nucleated RBC Nucleated RBC % (auto) VBG pH VBG pCO2 VBG pO2 VBG HCO3 VBG O2 Saturation VBG Base Excess Sodium Potassium Chloride Carbon Dioxide Anion Gap BUN Creatinine Estim Creat Clear Calc Estimated GFR POC Glucose 212 H Random Glucose Lactic Acid Calcium Phosphorus Magnesium Albumin Microbiology Microbiology Results: Microbiology 07/04/22 12:44 Blood - Venous Blood Culture - Preliminary No growth after 48 hours. 07/04/22 14:07 Blood - Venous Blood Culture - Preliminary Prelim: GPC Gram Stain only Prelim: GPR Gram Stain only Progress Note: A&P Assessment and plan (1) DMII (diabetes mellitus, type 2): Status: Acute (2) Diastolic heart failure: Status: Acute (3) Gram-positive bacteremia: Status: Acute (4) Cellulitis of scrotum: Status: Acute (5) COPD (chronic obstructive pulmonary disease): Status: Acute (6) Alcohol abuse: Status: Acute Plan Assessment: 66-year-old gentleman admitted with weakness, acute kidney injury in rhabdomyolysis after unable to get from the flow for 2 days with hospital course complicated by Gram-positive bacteremia with hypotension requiring pressor support Plan: Neuro: metabolic versus septic encephalopathy, continue to monitor clinically. Cardiac: Septic shock, resolved. Underlying history of diastolic heart failure. Pulmonary: acute respiratory failure with hypoxia likely secondary to underlying obstructive sleep apnea and pulmonary edema on the background of known congestive heart failure, improved. Continue to titrate off supplemental oxygen as tolerated. Renal: Acute renal failure with rhabdomyolysis, improving. Non oliguric. Continue to monitor renal indices and urine output. Nephrology service care appreciated. Endo: No acute issues. GI: No acute issues. ID: Gram-positive bacteremia, empirically covered with broad-spectrum antibiotics. Cultures are pending. Infectious Disease service care appreciated Heme/Onc: No acute issues. Psych: No acute issues. Underlying anxiety. Miscellaneous: No acute issues. Prophylaxis: Lovenox Diet: diabetic At this time patient is stable for transfer to telemetry cornejo. Transferred discussed with Dr. Tobin. Quality Stroke Does the patient have a stroke diagnosis?: No VTE Prior VTE?: No VTE Risk Level:: Medical - moderate - high VTE Device Contraindication: N/A - Device Ordered VTE Drug Contraindication: N/A - Med Ordered
[2022-07-07] MEDS: Multivitamin TABLET 1 TAB PO (09:59)
[2022-07-07 11:19] LABS: Glucose, Whole Blood 192 mg/dL (60-115)
[2022-07-07 16:40] LABS: Glucose, Whole Blood 184 mg/dL (60-115)
[2022-07-07] MEDS: Omeprazole 20 MG CAPSULE.DR PO (16:41)
[2022-07-07] MEDS: Enoxaparin Sodium 40 MG/0.4 ML SYRINGE SUBCUT (17:01)
[2022-07-07] MEDS: NaPROXEN 500 MG TABLET PO (18:08)
[2022-07-07 20:07] LABS: Glucose, Whole Blood 188 mg/dL (60-115)
[2022-07-07] MEDS: Folic Acid 1 MG TABLET PO (21:01)
[2022-07-07] MEDS: Insulin Glargine,Hum.rec.anlog 100 UNIT/ML 10 ML VIAL 45 UNIT SUBCUT (21:09)
--- NOTE | 2022-07-07 22:01 | PC.NURSE ---
Patient lost iv access on day shift, multiple nurses attempted, ICU nurse attempted this evening and was not able to obtain iv access. Patient refusing anymore tries at this time. Will continue to educate patient on importance of iv medications. Hospitalist made aware patient has no iv access at this time.
[2022-07-08 04:00] VITALS: BP 115/54; PULSE 76; RESP 20; TEMP 37.1; O2SAT 98
--- NOTE | 2022-07-08 04:09 | PC.NURSE ---
0409 Patient requested something for pain09/16 , patient only had Tylenol 650 mg ordered, when I returned to give the patient his medication , I told him here it is Tylenol 650 mg he yelled at me to shove it up my ass , I told him I would have to contact the doctor for something stronger and he responded Tell the Dr to shove it up his ass too and get out of my room ! So I left the room , this was also witnessed by the AIDAN Pires .
[2022-07-08 05:52] VITALS: BMI 30.8
[2022-07-08 07:10] LABS: MANUAL DIFF FLAG NO
[2022-07-08 07:12] LABS: Glucose, Whole Blood 79 mg/dL (60-115)
[2022-07-08 07:22] VITALS: BP 106/65; PULSE 77; RESP 20; TEMP 36.6; O2SAT 97
[2022-07-08 07:24] LABS: Basophils Absolute Auto 0.1 X10*3/uL (0.0-0.2); Eosinophils Absolute Auto 0.6 X10*3/uL (0.0-0.4); Eosinophils Percent Auto 10.9 % (0-4); Hematocrit 35.4 % (42.0-52.0); Hemoglobin 12.1 g/dl (14.0-18.0); Imm Gran Abs Auto 0.05 X10*3/uL (0.00-0.03); Lymphocytes Percent Auto 19.8 % (20-40); Mean Corpuscular HGB Conc 34.2 g/dl (31.0-36.0); Mean Corpuscular Hemoglobin 30.7 pg (27.0-33.0); Mean Corpuscular Volume 89.8 fL (80.0-98.0); Mean Platelet Volume 8.5 fL (9.4-12.4); Monocytes Absolute Auto 0.7 X10*3/uL (0.1-1.2); Monocytes Percent Auto 13.2 % (2-11); Neutrophils Absolute Auto 2.8 x10*3/uL (2.0-8.3); Neutrophils Percent Auto 54.1 % (45-73); Platelet Count 201 X10*3/uL (160-400); Red Blood Count 3.94 X10*6/uL (4.60-5.80); Red Cell Distribution Width 12.7 % (11.0-16.0); White Blood Count 5.2 X10*3/uL (4.8-10.8)
[2022-07-08 07:28] LABS: Albumin Level 3.7 g/dL (3.5-5.0); Anion Gap 10 (12-20); Blood Urea Nitrogen 18 mg/dL (9-16); Calcium 8.5 mg/dL (8.4-10.2); Carbon Dioxide 33 mmol/L (22-29); Chloride 94 mmol/L (96-108); Creatinine Clr Calc Pharmacy 86.7; Estimated Glomerular Filt Rate > 60; Glucose Random 71 mg/dL (60-115); Magnesium 1.6 mg/dL (1.6-2.6); Phosphorus 2.7 mg/dL (2.7-4.5); Potassium 3.3 mmol/L (3.3-5.1); Sodium 134 mmol/L (135-145)
[2022-07-08] MEDS: Nystatin Powder 15 GM BOTTLE 1 APPL TOPICAL (08:02)
[2022-07-08] MEDS: Aspirin Enteric Coated 81 MG TABLET.DR PO (08:03)
[2022-07-08] MEDS: Multivitamin TABLET 1 TAB PO (08:03)
[2022-07-08] MEDS: Clotrimazole 1 % Cream 15 GM TUBE 1 APPL TOPICAL (08:03)
[2022-07-08 11:07] LABS: Glucose, Whole Blood 209 mg/dL (60-115)
[2022-07-08 11:24] VITALS: BP 121/59; PULSE 79; RESP 20; TEMP 36.6; O2SAT 94
--- NOTE | 2022-07-08 12:10 | P.PNIM_ITS ---
Subjective Subjective Date of Service: 07/08/22 Interval History: cc: fall, unable to get up from ground interval history:tired Physical Exam Vital Signs: Vital Signs: Last Vital Signs Temp 97.8 F 07/08/22 11:24 Pulse 79 07/08/22 11:24 Resp 20 07/08/22 11:24 BP 121/59 L 07/08/22 11:24 Pulse Ox 94 07/08/22 11:24 O2 Del Method 07/08/22 11:24 O2 Flow Rate 2 07/07/22 14:30 FiO2 30 07/06/22 21:54 BMI result Body Mass Index 30.8 General: AO X 3, no acute distress Resp: CTA bilateral, no accessory muscles used CVS: S1,S2,RRR GI: soft, non tender, non distended Neuro: motor grossly intact, alert Psych: appropriate affect, appropriate insight Objective Data Active Medications Acetaminophen (Acetaminophen 325 Mg Tablet) 650 mg PO Q6H PRN PRN Reason: Pain, Mild (Pain Scale 1-3) Last Admin: 07/05/22 08:36 Dose: 650 mg Amoxicillin/Clavulanate Potassium (Amoxicillin/Potassium Clav 875 Mg Tablet) 875 mg PO Q12H [facility] Aspirin (Aspirin Enteric Coated 81 Mg Tablet.) 81 mg PO DAILY [facility] Last Admin: 07/08/22 08:03 Dose: 81 mg Documented By: CASPER Clotrimazole (Clotrimazole 1 % Cream 15 Gm Tube) 1 appl TOPICAL BID [facility]; Protocol Last Admin: 07/08/22 08:03 Dose: 1 appl Documented By: CASPER Albuterol Sulfate 2.5 mg/ (Ipratropium [place] 0.5 mg) 0 mg INHALE RQ4H WHILE AWAKE PRN PRN Reason: sob Dextrose (Dextrose 50 % 25 Gm/50 Ml Syringe) 25 gm IVPUSH Q15M PRN; Protocol PRN Reason: per Hypoglycemia Standing Ord. Enoxaparin Sodium (Enoxaparin Sodium 40 Mg/0.4 Ml Syringe) 40 mg SUBCUT Q24H [facility] Last Admin: 07/07/22 17:01 Dose: 40 mg Documented By: DIANA-SOFFA Folic Acid (Folic Acid 1 Mg Tablet) 1 mg PO BEDTIME [facility] Last Admin: 07/07/22 21:01 Dose: 1 mg Documented By: MICHELLE Glucose (Glucose Gel 15 Gm Gel..Gram.) 15 gm PO Q15M PRN; Protocol PRN Reason: per Hypoglycemia Standing Ord. Thiamine HCl 200 mg/ Sodium (Chloride) 102 mls @ 204 mls/hr IV Q8H [facility] Last Admin: 07/08/22 00:50 Dose: Not Given Documented By: MICHELLE Non-Admin Reason: no access, md aware Insulin Glargine (Insulin Glargine,Hum.Rec.Anlog 100 Unit/Ml 10 Ml Vial) 45 unit SUBCUT BEDTIME [facility] Last Admin: 07/07/22 21:09 Dose: 45 unit Documented By: MICHELLE Insulin Human Lispro (Insulin Lispro 100 Unit/Ml 3 Ml Vial) 0 unit SUBCUT QIDACHS [facility]; Protocol Last Admin: 07/08/22 07:29 Dose: Not Given Documented By: CASPER Non-Admin Reason: No Insulin Coverage Multivitamins/Vitamin C (Multivitamin Tablet) 1 tab PO DAILY [facility] Last Admin: 07/08/22 08:03 Dose: 1 tab Documented By: CASPER Nystatin (Nystatin Powder 15 Gm Bottle) 1 appl TOPICAL BID [facility]; Protocol Last Admin: 07/08/22 08:02 Dose: 1 appl Documented By: CASPER Omeprazole (Omeprazole 20 Mg Capsule.) 20 mg PO BID@0630,1630 [facility] Last Admin: 07/08/22 05:26 Dose: Not Given Documented By: SERGEY Non-Admin Reason: Patient Refused Ondansetron HCl (Ondansetron Hcl 4 Mg/2 Ml Vial) 4 mg IVPUSH Q8H PRN PRN Reason: Nausea and Vomiting Last Admin: 07/05/22 08:49 Dose: 4 mg Documented By: ERIC Sodium Chloride (0.9 % Sodium Chloride Flush 3 Ml Syringe) 3 ml IVFLUSH QSHIFT [facility] Last Admin: 07/08/22 08:03 Dose: Not Given Documented By: CASPER Non-Admin Reason: NO IV ACCESS Labs 07/08/22 07:04 07/08/22 07:04 Labs: Laboratory Results - last 24 hr 07/07/22 07/07/22 07/08/22 16:34 19:56 07:04 MCV 89.8 MCH 30.7 MCHC 34.2 RDW 12.7 Plt Count 201 MPV 8.5 L Immature Gran % (Auto) 1.0 H Neut % (Auto) 54.1 Lymph % (Auto) 19.8 L [place] % (Auto) 13.2 H Eos % (Auto) 10.9 H Baso % (Auto) 1.0 Lymph # (Auto) 1.0 L [place] # (Auto) 0.7 Eos # (Auto) 0.6 H Baso # (Auto) 0.1 Abs Immat Gran (auto) 0.05 H Absolute Neuts (auto) 2.8 Absolute Nucleated RBC 0.000 Nucleated RBC % (auto) 0.0 Anion Gap Estim Creat Clear Calc Estimated GFR POC Glucose 184 H 188 H Random Glucose Calcium Phosphorus Magnesium Albumin 07/08/22 07/08/22 07/08/22 07:04 07:07 11:04 MCV MCH MCHC RDW Plt Count MPV Immature Gran % (Auto) Neut % (Auto) Lymph % (Auto) [place] % (Auto) Eos % (Auto) Baso % (Auto) Lymph # (Auto) [place] # (Auto) Eos # (Auto) Baso # (Auto) Abs Immat Gran (auto) Absolute Neuts (auto) Absolute Nucleated RBC Nucleated RBC % (auto) Anion Gap 10 L Estim Creat Clear Calc 86.7 Estimated GFR > 60 POC Glucose 79 209 H Random Glucose 71 Calcium 8.5 Phosphorus 2.7 Magnesium 1.6 Albumin 3.7 Microbiology Microbiology Results: Microbiology 07/04/22 14:07 Blood Culture - Final Blood - Venous Coag negative Staphylococcus Corynebacterium species Assessment and Plan (1) Metabolic acidosis: Status: Acute (2) Cellulitis of scrotum: Status: Acute (3) Acute hyponatremia: Status: Acute (4) Electrolyte abnormality: Status: Acute (5) Rhabdomyolysis: Status: Acute Plan 66 year old M with a PMH of alcohol abuse, anxiety, copd, DM, chronic HFpEF, HLD, HTN, obesity who presented to the ED after paramedics were called in by a friend, pateint found on floor. was admitted for lauren/,ild rhabdo, hyponatremia, hypotension, mild scrotal cellulitis, was trasnferred to ICU for hypotension not responsive to fluids, required pressors, now off pressors and downgraded to medical floor Toxic metabolic encephalopathy Back to baseline Acute hyponatremia Resolved had acceptable rate Hypotension Possibly due to dehydration, though required pressors Now off pressors LAUREN with rhabdomyolysis Resolved Acute scrotal cellulitis Resolved, continue Augmentin Coag-negative blood culture Likely contaminant Diabetes with hyperglycemia Insulin, monitor point of cares Alcohol dependence with hepatic steatosis Alcohol cessation recommended, no evidence of withdrawal at this time Chronic diastolic CHF Monitor off diuretics Deconditioning PT eval DVT prophylaxis with Lovenox Full code reason for continued hospitalization: monitor off abx Time Spent With Patient Time: Total time managing care of this patient today ____ minutes. Quality Stroke Does the patient have a stroke diagnosis?: No VTE Prior VTE?: No VTE Risk Level:: Medical - moderate - high VTE Device Contraindication: N/A - Device Ordered VTE Drug Contraindication: N/A - Med Ordered
[2022-07-08] MEDS: Insulin Lispro 100 UNIT/ML 3 ML VIAL SUBCUT ×2 (12:22→21:12)
[2022-07-08] MEDS: Amoxicillin/Potassium Clav 875 MG TABLET PO (12:23)
[2022-07-08] MEDS: Thiamine HCL 100 MG TABLET PO (13:04)
[2022-07-08 15:00] VITALS: PULSE 67; O2SAT 93
[2022-07-08 16:06] LABS: Glucose, Whole Blood 140 mg/dL (60-115)
[2022-07-08] MEDS: Omeprazole 20 MG CAPSULE.DR PO (16:14)
[2022-07-08] MEDS: Enoxaparin Sodium 40 MG/0.4 ML SYRINGE SUBCUT (16:14)
[2022-07-08] MEDS: Acetaminophen 325 MG TABLET 650 MG PO (16:17)
[2022-07-08 19:24] VITALS: BP 110/59; PULSE 80; RESP 20; TEMP 36.7; O2SAT 95
[2022-07-08 19:47] LABS: Glucose, Whole Blood 204 mg/dL (60-115)
[2022-07-08] MEDS: Folic Acid 1 MG TABLET PO (21:12)
[2022-07-08] MEDS: Insulin Glargine,Hum.rec.anlog 100 UNIT/ML 10 ML VIAL 45 UNIT SUBCUT (21:13)
[2022-07-09] VITALS: BP 131/63; PULSE 76; RESP 18; TEMP 36.3; O2SAT 95
[2022-07-09] MEDS: Amoxicillin/Potassium Clav 875 MG TABLET PO ×3 (00:16→23:33)
[2022-07-09 04:02] VITALS: BP 122/55; PULSE 77; RESP 18; TEMP 36.8; O2SAT 95
[2022-07-09 05:25] VITALS: BMI 30.7
[2022-07-09] MEDS: Omeprazole 20 MG CAPSULE.DR PO ×2 (05:45→16:22)
[2022-07-09 09:36] VITALS: BP 111/54; PULSE 80; RESP 14; TEMP 36.1; O2SAT 92
--- NOTE | 2022-07-09 10:21 | HO.PM.IMPN ---
Subjective Subjective Date of Service: 07/09/22 Interval History: cc: fall, unable to get up from ground interval history:tired Physical Exam Vital Signs: Vital Signs: Last Vital Signs Temp 96.9 F 07/09/22 09:36 Pulse 80 07/09/22 09:36 Resp 14 07/09/22 09:36 BP 111/54 L 07/09/22 09:36 Pulse Ox 92 07/09/22 09:36 O2 Del Method 07/09/22 09:36 O2 Flow Rate 2 07/07/22 14:30 FiO2 30 07/06/22 21:54 BMI result Body Mass Index 30.7 General: AO X 3, no acute distress Resp: CTA bilateral, no accessory muscles used CVS: S1,S2,RRR GI: soft, non tender, non distended Neuro: motor grossly intact, alert Psych: appropriate affect, appropriate insight Objective Data Active Medications Acetaminophen (Acetaminophen 325 Mg Tablet) 650 mg PO Q6H PRN PRN Reason: Pain, Mild (Pain Scale 1-3) Last Admin: 07/08/22 16:17 Dose: 650 mg Documented By: CASPER Amoxicillin/Clavulanate Potassium (Amoxicillin/Potassium Clav 875 Mg Tablet) 875 mg PO Q12H [facility] Last Admin: 07/09/22 00:16 Dose: 875 mg Documented By: YENNIFER Aspirin (Aspirin Enteric Coated 81 Mg Tablet.Dr) 81 mg PO DAILY [facility] Last Admin: 07/08/22 08:03 Dose: 81 mg Documented By: CASPER Clotrimazole (Clotrimazole 1 % Cream 15 Gm Tube) 1 appl TOPICAL BID [facility]; Protocol Last Admin: 07/08/22 21:22 Dose: Not Given Documented By: YENNIFER Non-Admin Reason: Patient Refused Albuterol Sulfate 2.5 mg/ (Ipratropium [place] 0.5 mg) 0 mg INHALE RQ4H WHILE AWAKE PRN PRN Reason: sob Dextrose (Dextrose 50 % 25 Gm/50 Ml Syringe) 25 gm IVPUSH Q15M PRN; Protocol PRN Reason: per Hypoglycemia Standing Ord. Enoxaparin Sodium (Enoxaparin Sodium 40 Mg/0.4 Ml Syringe) 40 mg SUBCUT Q24H [facility] Last Admin: 07/08/22 16:14 Dose: 40 mg Documented By: CASPER Folic Acid (Folic Acid 1 Mg Tablet) 1 mg PO BEDTIME [facility] Last Admin: 07/08/22 21:12 Dose: 1 mg Documented By: YENNIFER Glucose (Glucose Gel 15 Gm Gel..Gram.) 15 gm PO Q15M PRN; Protocol PRN Reason: per Hypoglycemia Standing Ord. Insulin Glargine (Insulin Glargine,Hum.Rec.Anlog 100 Unit/Ml 10 Ml Vial) 45 unit SUBCUT BEDTIME [facility] Last Admin: 07/08/22 21:13 Dose: 45 unit Documented By: YENNIFER Insulin Human Lispro (Insulin Lispro 100 Unit/Ml 3 Ml Vial) 0 unit SUBCUT QIDACHS [facility]; Protocol Last Admin: 07/08/22 21:12 Dose: 4 unit Documented By: YENNIFER Magnesium Oxide (Magnesium Oxide 400 Mg Tablet) [facility] Multivitamins/Vitamin C (Multivitamin Tablet) 1 tab PO DAILY [facility] Last Admin: 07/08/22 08:03 Dose: 1 tab Documented By: CASPER Nystatin (Nystatin Powder 15 Gm Bottle) 1 appl TOPICAL BID [facility]; Protocol Last Admin: 07/08/22 21:22 Dose: Not Given Documented By: YENNIFER Non-Admin Reason: Patient Refused Omeprazole (Omeprazole 20 Mg Gregg.) 20 mg PO BID@0630,1630 [facility] Last Admin: 07/09/22 05:45 Dose: 20 mg Documented By: YENNIFER Ondansetron HCl (Ondansetron Hcl 4 Mg/2 Ml Vial) 4 mg IVPUSH Q8H PRN PRN Reason: Nausea and Vomiting Last Admin: 07/05/22 08:49 Dose: 4 mg Documented By: ERIC Sodium Chloride (0.9 % Sodium Chloride Flush 3 Ml Syringe) 3 ml IVFLUSH QSHIFT [facility] Last Admin: 07/09/22 00:19 Dose: Not Given Documented By: YENNIFER Non-Admin Reason: No Access Thiamine HCl (Thiamine Hcl 100 Mg Tablet) 100 mg PO DAILY [facility] Last Admin: 07/08/22 13:04 Dose: 100 mg Documented By: REINA-NAMAM Labs 07/08/22 07:04 07/08/22 07:04 Labs: Laboratory Results - last 24 hr 07/08/22 07/08/22 07/08/22 11:04 16:03 19:43 POC Glucose 209 H 140 H 204 H Microbiology Microbiology Results: Microbiology 07/08/22 07:04 Blood Culture - Preliminary Blood - Venous No growth after 24 hours. 07/08/22 02:02 Blood Culture - Preliminary Blood - Venous No growth after 24 hours. Assessment and Plan (1) Metabolic acidosis: Status: Acute (2) Cellulitis of scrotum: Status: Acute (3) Acute hyponatremia: Status: Acute (4) Electrolyte abnormality: Status: Acute (5) Rhabdomyolysis: Status: Acute Plan 66 year old M with a PMH of alcohol abuse, anxiety, copd, DM, chronic HFpEF, HLD, HTN, obesity who presented to the ED after paramedics were called in by a friend, pateint found on floor. was admitted for lauren/,ild rhabdo, hyponatremia, hypotension, mild scrotal cellulitis, was trasnferred to ICU for hypotension not responsive to fluids, required pressors, now off pressors and downgraded to medical floor Toxic metabolic encephalopathy Back to baseline Acute hyponatremia Resolved had acceptable rate Hypotension Possibly due to dehydration, though required pressors Now off pressors LAUREN with rhabdomyolysis Resolved Acute scrotal cellulitis Resolved, continue Augmentin Coag-negative blood culture Likely contaminant Diabetes with hyperglycemia Insulin, monitor point of cares Alcohol dependence with hepatic steatosis Alcohol cessation recommended, no evidence of withdrawal at this time Chronic diastolic CHF Monitor off diuretics Deconditioning PT eval - initially refused DVT prophylaxis with Lovenox Full code reason for continued hospitalization: safe dispo Time Spent With Patient Time: Total time managing care of this patient today ____ minutes. Quality Stroke Does the patient have a stroke diagnosis?: No VTE Prior VTE?: No VTE Risk Level:: Medical - moderate - high VTE Device Contraindication: N/A - Device Ordered VTE Drug Contraindication: N/A - Med Ordered
[2022-07-09 11:02] LABS: Glucose, Whole Blood 138 mg/dL (60-115)
[2022-07-09 11:05] VITALS: BP 143/70; PULSE 73; RESP 12; TEMP 36.3; O2SAT 95
[2022-07-09] MEDS: Aspirin Enteric Coated 81 MG TABLET.DR PO (11:13)
[2022-07-09] MEDS: Thiamine HCL 100 MG TABLET PO (11:14)
[2022-07-09] MEDS: Magnesium Oxide 400 MG TABLET PO ×2 (11:14→16:22)
[2022-07-09] MEDS: Multivitamin TABLET 1 TAB PO (11:14)
--- NOTE | 2022-07-09 11:30 | PC.NURSE ---
pt refused AM blood sugar check, no s/sx of hyper/hypoglycemic effect noted, aware. BS @ 2119- 200.
[2022-07-09] MEDS: Acetaminophen 325 MG TABLET 650 MG PO (13:09)
[2022-07-09 14:28] LABS: Hematocrit 36.5 % (42.0-52.0); Hemoglobin 12.2 g/dl (14.0-18.0); Mean Corpuscular HGB Conc 33.4 g/dl (31.0-36.0); Mean Corpuscular Hemoglobin 30.9 pg (27.0-33.0); Mean Corpuscular Volume 92.4 fL (80.0-98.0); Mean Platelet Volume 8.5 fL (9.4-12.4); Platelet Count 202 X10*3/uL (160-400); Red Blood Count 3.95 X10*6/uL (4.60-5.80); White Blood Count 5.1 X10*3/uL (4.8-10.8)
[2022-07-09 14:43] LABS: Anion Gap 13 (12-20); Blood Urea Nitrogen 19 mg/dL (9-16); Calcium 8.2 mg/dL (8.4-10.2); Carbon Dioxide 32 mmol/L (22-29); Chloride 94 mmol/L (96-108); Creatinine Clr Calc Pharmacy 96.5; Estimated Glomerular Filt Rate > 60; Glucose Fasting 193 mg/dL (60-99); Potassium 3.6 mmol/L (3.3-5.1); Sodium 135 mmol/L (135-145)
[2022-07-09] MEDS: oxyCODONE HCl Immed Release 5 MG TABLET PO ×2 (15:02→23:33)
[2022-07-09 15:34] VITALS: BP 109/54; PULSE 72; RESP 20; TEMP 36.8; O2SAT 94
[2022-07-09 16:09] LABS: Glucose, Whole Blood 220 mg/dL (60-115)
[2022-07-09] MEDS: Enoxaparin Sodium 40 MG/0.4 ML SYRINGE SUBCUT (16:22)
[2022-07-09] MEDS: Insulin Lispro 100 UNIT/ML 3 ML VIAL SUBCUT (16:23)
[2022-07-09 19:15] VITALS: BP 111/49; PULSE 75; RESP 20; TEMP 36.7; O2SAT 96
[2022-07-09 19:38] LABS: Glucose, Whole Blood 118 mg/dL (60-115)
[2022-07-09] MEDS: Insulin Glargine,Hum.rec.anlog 100 UNIT/ML 10 ML VIAL 45 UNIT SUBCUT (21:14)
[2022-07-09] MEDS: Folic Acid 1 MG TABLET PO (23:33)
[2022-07-10] VITALS: BP 138/81; PULSE 80; RESP 20; TEMP 36.5; O2SAT 93
[2022-07-10] MEDS: Melatonin 3 MG TABLET 6 MG PO ×2 (00:07→17:50)
[2022-07-10 03:26] VITALS: PULSE 80; RESP 20; O2SAT 98
[2022-07-10 06:00] VITALS: BMI 30.2
[2022-07-10] MEDS: Omeprazole 20 MG CAPSULE.DR PO ×2 (06:18→17:01)
[2022-07-10 08:00] VITALS: BP 118/71; PULSE 73; RESP 12; TEMP 35.7; O2SAT 97
[2022-07-10 08:09] LABS: Glucose, Whole Blood 24 mg/dL (60-115)
--- NOTE | 2022-07-10 08:22 | PC.NURSE ---
morning POC of 23 around 08:15. pt asymtomatic, 2 apple juice given and pt is having breakfast. MD notified. will continue to monitor and check blood sugar per protocol. this nurse did educate pt on sitting up to have breakfast to avoid aspiratiion which pt said I am comfortable and refuses to sit upright and continues to have breakfast laying flat.
[2022-07-10] MEDS: Magnesium Oxide 400 MG TABLET PO ×2 (08:34→17:01)
[2022-07-10] MEDS: Aspirin Enteric Coated 81 MG TABLET.DR PO (08:34)
[2022-07-10] MEDS: Multivitamin TABLET 1 TAB PO (08:34)
[2022-07-10] MEDS: Thiamine HCL 100 MG TABLET PO (08:34)
[2022-07-10 08:35] LABS: Glucose, Whole Blood 33 mg/dL (60-115)
[2022-07-10 09:00] LABS: Glucose, Whole Blood 45 mg/dL (60-115)
[2022-07-10 09:21] LABS: Glucose, Whole Blood 57 mg/dL (60-115)
[2022-07-10] MEDS: oxyCODONE HCl Immed Release 5 MG TABLET PO ×3 (09:30→22:07)
[2022-07-10 10:19] VITALS: BP 118/71; PULSE 73; O2SAT 97
[2022-07-10 11:00] LABS: Glucose, Whole Blood 120 mg/dL (60-115)
[2022-07-10 11:06] LABS: Hematocrit 38.1 % (42.0-52.0); Hemoglobin 12.5 g/dl (14.0-18.0); Mean Corpuscular HGB Conc 32.8 g/dl (31.0-36.0); Mean Corpuscular Hemoglobin 30.3 pg (27.0-33.0); Mean Corpuscular Volume 92.5 fL (80.0-98.0); PLT CLUMP 1; Red Blood Count 4.12 X10*6/uL (4.60-5.80); Red Cell Distribution Width 13.2 % (11.0-16.0)
[2022-07-10 11:10] LABS: White Blood Count 4.7 X10*3/uL (4.8-10.8)
[2022-07-10 11:24] LABS: Anion Gap 15 (12-20); Blood Urea Nitrogen 17 mg/dL (9-16); Calcium 8.5 mg/dL (8.4-10.2); Carbon Dioxide 30 mmol/L (22-29); Chloride 96 mmol/L (96-108); Creatinine Clr Calc Pharmacy 90.6; Estimated Glomerular Filt Rate > 60; Glucose Random 120 mg/dL (60-115); Potassium 3.8 mmol/L (3.3-5.1); Sodium 137 mmol/L (135-145)
[2022-07-10 11:37] LABS: Cortisol Random 4.8 ug/dL; TSH reflex Free T4 1.97 uIU/mL (0.32-4.0)
--- NOTE | 2022-07-10 11:48 | P.PNIM_ITS ---
Subjective Subjective Date of Service: 07/10/22 Interval History: cc: fall, unable to get up from ground interval history:tired, cold Physical Exam Vital Signs: Vital Signs: Last Vital Signs Temp 96.2 F L 07/10/22 08:00 Pulse 73 07/10/22 10:19 Resp 12 07/10/22 08:00 BP 118/71 07/10/22 10:19 Pulse Ox 97 07/10/22 10:19 O2 Del Method 07/10/22 08:00 O2 Flow Rate 2 07/07/22 14:30 FiO2 30 07/06/22 21:54 BMI result Body Mass Index 30.2 General: AO X 3, no acute distress Resp: CTA bilateral, no accessory muscles used CVS: S1,S2,RRR GI: soft, non tender, non distended Neuro: motor grossly intact, alert Psych: appropriate affect, appropriate insight Objective Data Active Medications Acetaminophen (Acetaminophen 325 Mg Tablet) 650 mg PO Q6H PRN PRN Reason: Pain, Mild (Pain Scale 1-3) Last Admin: 07/09/22 13:09 Dose: 650 mg Documented By: JEWELL Amoxicillin/Clavulanate Potassium (Amoxicillin/Potassium Clav 875 Mg Tablet) 875 mg PO Q12H [facility] Last Admin: 07/09/22 23:33 Dose: 875 mg Documented By: NERY Aspirin (Aspirin Enteric Coated 81 Mg Tablet.) 81 mg PO DAILY [facility] Last Admin: 07/10/22 08:34 Dose: 81 mg Documented By: ROLDAN Clotrimazole (Clotrimazole 1 % Cream 15 Gm Tube) 1 appl TOPICAL BID [facility]; Protocol Last Admin: 07/10/22 09:31 Dose: Not Given Documented By: ROLDAN Non-Admin Reason: pt refused Albuterol Sulfate 2.5 mg/ (Ipratropium [place] 0.5 mg) 0 mg INHALE RQ4H WHILE AWAKE PRN PRN Reason: sob Last Admin: 07/10/22 03:25 Dose: 2.5 each Documented By: RODRICK Dextrose (Dextrose 50 % 25 Gm/50 Ml Syringe) 25 gm IVPUSH Q15M PRN; Protocol PRN Reason: per Hypoglycemia Standing Ord. Enoxaparin Sodium (Enoxaparin Sodium 40 Mg/0.4 Ml Syringe) 40 mg SUBCUT Q24H [facility] Last Admin: 07/09/22 16:22 Dose: 40 mg Documented By: JEWELL Folic Acid (Folic Acid 1 Mg Tablet) 1 mg PO BEDTIME [facility] Last Admin: 07/09/22 23:33 Dose: 1 mg Documented By: NERY Glucose (Glucose Gel 15 Gm Gel..Gram.) 15 gm PO Q15M PRN; Protocol PRN Reason: per Hypoglycemia Standing Ord. Insulin Glargine (Insulin Glargine,Hum.Rec.Anlog 100 Unit/Ml 10 Ml Vial) 25 unit SUBCUT BEDTIME [facility] Insulin Human Lispro (Insulin Lispro 100 Unit/Ml 3 Ml Vial) 0 unit SUBCUT QIDACHS [facility]; Protocol Last Admin: 07/10/22 11:43 Dose: Not Given Documented By: ROLDAN Non-Admin Reason: No Insulin Coverage Magnesium Oxide (Magnesium Oxide 400 Mg Tablet) 400 mg PO BIDPC [facility] Last Admin: 07/10/22 08:34 Dose: 400 mg Documented By: ROLDAN Melatonin (Melatonin 3 Mg Tablet) 6 mg PO BEDTIME PRN PRN Reason: insomnia Last Admin: 07/10/22 00:07 Dose: 6 mg Documented By: NERY Multivitamins/Vitamin C (Multivitamin Tablet) 1 tab PO DAILY [facility] Last Admin: 07/10/22 08:34 Dose: 1 tab Documented By: ROLDAN Nystatin (Nystatin Powder 15 Gm Bottle) 1 appl TOPICAL BID [facility]; Protocol Last Admin: 07/10/22 09:32 Dose: Not Given Documented By: ROLDAN Non-Admin Reason: pt refused. Omeprazole (Omeprazole 20 Mg Gregg.) 20 mg PO BID@0630,1630 [facility] Last Admin: 07/10/22 06:18 Dose: 20 mg Documented By: NERY Ondansetron HCl (Ondansetron Hcl 4 Mg/2 Ml Vial) 4 mg IVPUSH Q8H PRN PRN Reason: Nausea and Vomiting Last Admin: 07/05/22 08:49 Dose: 4 mg Documented By: ERIC Oxycodone HCl (Oxycodone Hcl Immed Release 5 Mg Tablet) 5 mg PO Q6H PRN PRN Reason: moderate pain Last Admin: 07/10/22 09:30 Dose: 5 mg Documented By: ROLDAN Sodium Chloride (0.9 % Sodium Chloride Flush 3 Ml Syringe) 3 ml IVFLUSH QSHIFT [facility] Last Admin: 07/10/22 08:35 Dose: Not Given Documented By: ROLDAN Non-Admin Reason: No Access Thiamine HCl (Thiamine Hcl 100 Mg Tablet) 100 mg PO DAILY [facility] Last Admin: 07/10/22 08:34 Dose: 100 mg Documented By: ROLDAN Labs 07/09/22 14:16 07/10/22 10:39 Labs: Laboratory Results - last 24 hr 07/09/22 07/09/22 07/09/22 14:16 14:16 16:03 MCV 92.4 MCH 30.9 MCHC 33.4 RDW 13.0 Plt Count 202 MPV 8.5 L Absolute Nucleated RBC 0.000 Nucleated RBC % (auto) 0.0 Anion Gap 13 Estim Creat Clear Calc 96.5 Estimated GFR > 60 POC Glucose 220 H Random Glucose Fasting Glucose 193 H Calcium 8.2 L TSH Random Cortisol 07/09/22 07/10/22 07/10/22 19:34 08:03 08:31 MCV MCH MCHC RDW Plt Count MPV Absolute Nucleated RBC Nucleated RBC % (auto) Anion Gap Estim Creat Clear Calc Estimated GFR POC Glucose 118 H 24 L* 33 L* Random Glucose Fasting Glucose Calcium TSH Random Cortisol 07/10/22 07/10/22 07/10/22 08:56 09:10 10:39 MCV MCH MCHC RDW Plt Count MPV Absolute Nucleated RBC Nucleated RBC % (auto) Anion Gap 15 Estim Creat Clear Calc 90.6 Estimated GFR > 60 POC Glucose 45 L* 57 L* Random Glucose 120 H Fasting Glucose Calcium 8.5 TSH 1.97 Random Cortisol 07/10/22 07/10/22 10:39 10:49 MCV MCH MCHC RDW Plt Count MPV Absolute Nucleated RBC Nucleated RBC % (auto) Anion Gap Estim Creat Clear Calc Estimated GFR POC Glucose 120 H Random Glucose Fasting Glucose Calcium TSH Random Cortisol 4.8 Microbiology Microbiology Results: Microbiology 07/08/22 07:04 Blood Culture - Preliminary Blood - Venous No growth after 48 hours. 07/08/22 02:02 Blood Culture - Preliminary Blood - Venous No growth after 48 hours. 07/04/22 12:44 Blood Culture - Final Blood - Venous No growth after 5 days. Assessment and Plan (1) Metabolic acidosis: Status: Acute (2) Cellulitis of scrotum: Status: Acute (3) Acute hyponatremia: Status: Acute (4) Electrolyte abnormality: Status: Acute (5) Rhabdomyolysis: Status: Acute Plan 66 year old M with a PMH of alcohol abuse, anxiety, copd, DM, chronic HFpEF, HLD, HTN, obesity who presented to the ED after paramedics were called in by a friend, pateint found on floor. was admitted for lauren/,ild rhabdo, hyponatremia, hypotension, mild scrotal cellulitis, was trasnferred to ICU for hypotension not responsive to fluids, required pressors, now off pressors and downgraded to medical floor Toxic metabolic encephalopathy Back to baseline Acute hyponatremia Resolved at acceptable rate Hypotension Possibly due to dehydration, though required pressors Now off pressors cortisol at 1040am 4.8, will check 6am tomorrow, if still borderline will consider acth stim test LAUREN with rhabdomyolysis Resolved Acute scrotal cellulitis Resolved, continue Augmentin Coag-negative blood culture Likely contaminant Diabetes with hyperglycemia and hypoglycemia Insulin, will reduce glargine from 45 to 25, monitor point of cares Alcohol dependence with hepatic steatosis Alcohol cessation recommended, no evidence of withdrawal at this time Chronic diastolic CHF Monitor off diuretics Deconditioning PT eval - initially refused DVT prophylaxis with Lovenox Full code reason for continued hospitalization: safe dispo Time Spent With Patient Time: Total time managing care of this patient today ____ minutes. Quality Stroke Does the patient have a stroke diagnosis?: No VTE Prior VTE?: No VTE Risk Level:: Medical - moderate - high VTE Device Contraindication: N/A - Device Ordered VTE Drug Contraindication: N/A - Med Ordered
[2022-07-10 11:53] LABS: Platelet Count 136 X10*3/uL (160-400)
[2022-07-10] MEDS: Amoxicillin/Potassium Clav 875 MG TABLET PO ×2 (12:02→22:07)
--- NOTE | 2022-07-10 15:14 | P.CNPS_ITS ---
History of Present Illness Date of Service: 07/11/23 Chief Complaint: Hyponatremia, Fall, Rhabdo Reason for Consult: assess capacity Requesting physician: Ervin Donaldson Discussed with referring provider: Yes Sources of Information: patient interviewed and chart reviewed HPI Narrative: Patient is a 66 year old M with a PMH of alcohol abuse, anxiety, copd, DM, chronic HFpEF, HLD, HTN, obesity who presented to the ED after paramedics were called in by a friend, pt found on floor. was admitted for lauren/,ild rhabdo, hyponatremia, hypotension, mild scrotal cellulitis, was trasnferred to ICU for hypotension not responsive to fluids, required pressors, now off pressors and downgraded to medical floor Patient has been resistant to some treatments including intermittently resistant to allowing vitals, engaging in PT and not wanting to go to rehab Java Software Engineer asked to assess patient's capacity for making medical decisions regarding engaging in PT and dispo to rehab Patient is irritable on approach which seems to be baseline per past psychiatric consult. He understands his medical illnesses and his need for both physical therapy and rehab. Patient also says that he wants treatment. He denied that he refused PT and today nurse confirmed that he did in fact engage with PT staff. Patient says he wants to be rehabilitated and understands the consequences of not engaging in treatment saying if he goes home without it he will fall down and . The reason he does not want to go to rehab is that he has been before and they do not do shit. He is also worried about having low blood sugar, (which he had today, although he was asymptomatic), however patient was able to accurately explain how he would treat hypoglycemia. Knowing he needs further help with reconditioning, patient said he wants to remain in the hospital until he is better and then go home. However it was explained that this is not an option and when faced with choice to either go home from the hospital or first go to rehab and hope for improved treatment, patient said that he will go to rehab. Regarding refusing vitals, patient said that they came in and he was feeling cold and did not want to pull the covers off him to expose his upper body. Medical Evaluation Reviewed: Yes [facility] Medical History (Updated 07/10/22 @ 18:16 by Dino Wilkinson MD) Acute diastolic CHF (congestive heart failure) Acute hyponatremia Acute respiratory failure with hypoxia LAUREN (acute kidney injury) Alcohol abuse Anxiety Bilateral pleural effusion Cellulitis, scrotum Contusion of rib on left side COPD (chronic obstructive pulmonary disease) Diabetes mellitus type 1 Diastolic dysfunction Diastolic heart failure DMII (diabetes mellitus, type 2) Elevated troponin Fall Fungal dermatitis HLD (hyperlipidemia) Hypertension Nonrheumatic aortic (valve) stenosis Obesity Pneumonia Surgical History H/O elbow surgery H/O shoulder surgery History of hydrocelectomy S/P TURP Family History: Deferred Social History: Deferred Substance History: Severe alcoholism Trauma History: Deferred Diagnostics Vital Signs (24Hr): Vital Signs - 24 hr 07/09/22 15:34 07/09/22 19:15 07/10/22 00:00 Temperature 98.3 F 98.1 F 97.7 F Pulse Rate 72 75 80 Respiratory Rate 20 20 20 Blood Pressure 109/54 L 111/49 L 138/81 Pulse Oximetry 94 96 93 Oxygen Delivery Method Room Air Room Air Room Air 07/10/22 03:26 07/10/22 08:00 07/10/22 10:19 Temperature 96.2 F L Pulse Rate 80 73 73 Respiratory Rate 20 12 Blood Pressure 118/71 118/71 Pulse Oximetry 97 97 Oxygen Delivery Method Room Air BMI result Body Mass Index 30.2 Labs 07/10/22 10:39 07/10/22 10:39 Labs: Laboratory Results - last 48 hr 07/08/22 07/08/22 07/09/22 16:03 19:43 10:57 WBC RBC Hgb Hct MCV MCH MCHC RDW Plt Count MPV Absolute Nucleated RBC Nucleated RBC % (auto) Sodium Potassium Chloride Carbon Dioxide Anion Gap BUN Creatinine Estim Creat Clear Calc Estimated GFR POC Glucose 140 H 204 H 138 H Random Glucose Fasting Glucose Calcium TSH Random Cortisol 07/09/22 07/09/22 07/09/22 14:16 14:16 16:03 WBC 5.1 RBC 3.95 L Hgb 12.2 L Hct 36.5 L MCV 92.4 MCH 30.9 MCHC 33.4 RDW 13.0 Plt Count 202 MPV 8.5 L Absolute Nucleated RBC 0.000 Nucleated RBC % (auto) 0.0 Sodium 135 Potassium 3.6 Chloride 94 L Carbon Dioxide 32 H Anion Gap 13 BUN 19 H Creatinine 0.88 Estim Creat Clear Calc 96.5 Estimated GFR > 60 POC Glucose 220 H Random Glucose Fasting Glucose 193 H Calcium 8.2 L TSH Random Cortisol 07/09/22 07/10/22 07/10/22 19:34 08:03 08:31 WBC RBC Hgb Hct MCV MCH MCHC RDW Plt Count MPV Absolute Nucleated RBC Nucleated RBC % (auto) Sodium Potassium Chloride Carbon Dioxide Anion Gap BUN Creatinine Estim Creat Clear Calc Estimated GFR POC Glucose 118 H 24 L* 33 L* Random Glucose Fasting Glucose Calcium TSH Random Cortisol 07/10/22 07/10/22 07/10/22 08:56 09:10 10:39 WBC 4.7 L RBC 4.12 L Hgb 12.5 L Hct 38.1 L MCV 92.5 MCH 30.3 MCHC 32.8 RDW 13.2 Plt Count 136 L D MPV Not Reportable Absolute Nucleated RBC 0.000 Nucleated RBC % (auto) 0.0 Sodium Potassium Chloride Carbon Dioxide Anion Gap BUN Creatinine Estim Creat Clear Calc Estimated GFR POC Glucose 45 L* 57 L* Random Glucose Fasting Glucose Calcium TSH Random Cortisol 07/10/22 07/10/22 07/10/22 10:39 10:39 10:49 WBC RBC Hgb Hct MCV MCH MCHC RDW Plt Count MPV Absolute Nucleated RBC Nucleated RBC % (auto) Sodium 137 Potassium 3.8 Chloride 96 Carbon Dioxide 30 H Anion Gap 15 BUN 17 H Creatinine 0.93 Estim Creat Clear Calc 90.6 Estimated GFR > 60 POC Glucose 120 H Random Glucose 120 H Fasting Glucose Calcium 8.5 TSH 1.97 Random Cortisol 4.8 Imaging Radiology Impressions: ITS Impressions Chest X-Ray 07/04/22 13:01 IMPRESSION: No radiographic evidence of acute cardiopulmonary disease. Hip/Pelvis X-Ray 07/04/22 13:01 IMPRESSION: Mild degenerative arthritis. . Shoulder X-Ray 07/04/22 13:01 IMPRESSION: * Soft tissue calcification superior to the shoulder joint suggesting calcific tendinitis. * DJD A.C. joint. * No fracture or dislocation. Cervical Spine CT 07/04/22 13:17 IMPRESSION: CT HEAD AND SPINE: Motion artifact significantly degrading images, limiting evaluation. Recommend repeat CT scan for evaluation. 1. In the nonobscured portion of the brain, no evidence of acute intracranial hemorrhage or edematous territorial infarction.. 2. No gross malalignment cervical spine. No gross acute fractures seen, but evaluation is limited by motion artifact. Head CT 07/04/22 13:17 IMPRESSION: CT HEAD AND SPINE: Motion artifact significantly degrading images, limiting evaluation. Recommend repeat CT scan for evaluation. 1. In the nonobscured portion of the brain, no evidence of acute intracranial hemorrhage or edematous territorial infarction.. 2. No gross malalignment cervical spine. No gross acute fractures seen, but evaluation is limited by motion artifact. Mental Status Exam Mental Status Exam Narrative: Pt is alert and oriented; behavior is irritable; lying in bed; dressed in hospital shirt only, covers over body; unkempt hair/galvez; mood is described as terrible and affect irritable; eye contact appropriate; Speech is normal rate, volume and prosody and not pressured; thought process is goal directed; Thought content is on tx; no delusional or paranoid content; Patients insight and judgment appear intact. Medications Medications Current Medications Acetaminophen (Acetaminophen 325 Mg Tablet) 650 mg PO Q6H PRN PRN Reason: Pain, Mild (Pain Scale 1-3) Last Admin: 07/09/22 13:09 Dose: 650 mg Amoxicillin/Clavulanate Potassium (Amoxicillin/Potassium Clav 875 Mg Tablet) 875 mg PO Q12H [facility] Last Admin: 07/10/22 12:02 Dose: 875 mg Aspirin (Aspirin Enteric Coated 81 Mg Tablet.) 81 mg PO DAILY [facility] Last Admin: 07/10/22 08:34 Dose: 81 mg Clotrimazole (Clotrimazole 1 % Cream 15 Gm Tube) 1 appl TOPICAL BID [facility]; Protocol Last Admin: 07/10/22 09:31 Dose: Not Given Albuterol Sulfate 2.5 mg/ (Ipratropium [place] 0.5 mg) 0 mg INHALE RQ4H WHILE AWAKE PRN PRN Reason: sob Last Admin: 07/10/22 03:25 Dose: 2.5 each Dextrose (Dextrose 50 % 25 Gm/50 Ml Syringe) 25 gm IVPUSH Q15M PRN; Protocol PRN Reason: per Hypoglycemia Standing Ord. Enoxaparin Sodium (Enoxaparin Sodium 40 Mg/0.4 Ml Syringe) 40 mg SUBCUT Q24H [facility] Last Admin: 07/09/22 16:22 Dose: 40 mg Folic Acid (Folic Acid 1 Mg Tablet) 1 mg PO BEDTIME [facility] Last Admin: 07/09/22 23:33 Dose: 1 mg Glucose (Glucose Gel 15 Gm Gel..Gram.) 15 gm PO Q15M PRN; Protocol PRN Reason: per Hypoglycemia Standing Ord. Insulin Glargine (Insulin Glargine,Hum.Rec.Anlog 100 Unit/Ml 10 Ml Vial) 25 unit SUBCUT BEDTIME [facility] Insulin Human Lispro (Insulin Lispro 100 Unit/Ml 3 Ml Vial) 0 unit SUBCUT QIDACHS [facility]; Protocol Last Admin: 07/10/22 11:43 Dose: Not Given Magnesium Oxide (Magnesium Oxide 400 Mg Tablet) 400 mg PO BIDPC [facility] Last Admin: 07/10/22 08:34 Dose: 400 mg Melatonin (Melatonin 3 Mg Tablet) 6 mg PO BEDTIME PRN PRN Reason: insomnia Last Admin: 07/10/22 00:07 Dose: 6 mg Multivitamins/Vitamin C (Multivitamin Tablet) 1 tab PO DAILY [facility] Last Admin: 07/10/22 08:34 Dose: 1 tab Nystatin (Nystatin Powder 15 Gm Bottle) 1 appl TOPICAL BID [facility]; Protocol Last Admin: 07/10/22 09:32 Dose: Not Given Omeprazole (Omeprazole 20 Mg Capsule.Dr) 20 mg PO BID@0630,1630 [facility] Last Admin: 07/10/22 06:18 Dose: 20 mg Ondansetron HCl (Ondansetron Hcl 4 Mg/2 Ml Vial) 4 mg IVPUSH Q8H PRN PRN Reason: Nausea and Vomiting Last Admin: 07/05/22 08:49 Dose: 4 mg Oxycodone HCl (Oxycodone Hcl Immed Release 5 Mg Tablet) 5 mg PO Q6H PRN PRN Reason: moderate pain Last Admin: 07/10/22 09:30 Dose: 5 mg Sodium Chloride (0.9 % Sodium Chloride Flush 3 Ml Syringe) 3 ml IVFLUSH QSHIFT [facility] Last Admin: 07/10/22 08:35 Dose: Not Given Thiamine HCl (Thiamine Hcl 100 Mg Tablet) 100 mg PO DAILY [facility] Last Admin: 07/10/22 08:34 Dose: 100 mg Allergies Allergies Allergy/AdvReac Type Severity Reaction Status Date / Time environmental allergies Allergy Sneezing Verified 07/08/22 08:40 Assessment & Plan Assessment & Plan (1) Anxiety: Status: Acute Code(s): F41.9 - Anxiety disorder, unspecified (2) Alcohol abuse: Status: Acute Code(s): F10.10 - Alcohol abuse, uncomplicated (3) COPD (chronic obstructive pulmonary disease): Status: Acute Code(s): J44.9 - Chronic obstructive pulmonary disease, unspecified (4) DMII (diabetes mellitus, type 2): Status: Acute Code(s): E11.9 - Type 2 diabetes mellitus without complications (5) Diastolic heart failure: Status: Acute Code(s): I50.30 - Unspecified diastolic (congestive) heart failure Plan Patient is a 66 year old M with a PMH of alcohol abuse, anxiety,and multiple co- morbidities Java Software Engineer asked to assess patient's capacity for making medical decisions regarding engaging in PT and dispo to rehab Impression: Patient has capacity to make medical decisions for himself regarding whether not to engage in physical therapy and whether not to go to rehab center or go home. Pt is alert/oriented x4 Patient understands his current situation and illness, need for treatment and consequences of not engaging in treatment evidenced by being able to talk about it with adequate knowledge. He appreciates the benefits of treatment and risks of not getting treatment. He is able to clearly express a choice and consider the various options available with consistency. Total time managing care of this patient today ____ minutes. Patient educated on: diagnosis, medication risk/benefits and therapeutic strategies Informed Consent: understands
[2022-07-10 15:21] VITALS: BP 107/56; PULSE 77; RESP 20; TEMP 37; O2SAT 96
[2022-07-10 16:03] LABS: Glucose, Whole Blood 118 mg/dL (60-115)
[2022-07-10] MEDS: Enoxaparin Sodium 40 MG/0.4 ML SYRINGE SUBCUT (17:51)
[2022-07-10 19:15] VITALS: BP 96/58; PULSE 70; RESP 20; TEMP 36.8; O2SAT 94
[2022-07-10 19:36] LABS: Glucose, Whole Blood 112 mg/dL (60-115)
[2022-07-10] MEDS: Folic Acid 1 MG TABLET PO (22:09)
[2022-07-11] VITALS (7 sets, daily range): BP systolic 115–135; BP diastolic 74–89; PULSE 73–90; RESP 18–19; TEMP 36.6–36.9; O2SAT 95–97; BMI 30.2
[2022-07-11] MEDS: Melatonin 3 MG TABLET 6 MG PO (01:37)
[2022-07-11] MEDS: 0.9 % Sodium Chloride Flush 3 ML SYRINGE IVFLUSH (01:39)
--- NOTE | 2022-07-11 02:54 | PC.NURSE ---
2044 Per shift report from Yesica RN patient POC 23 this am , notified Dr Rivera and was told to hold his 25 units of Lantus, POC 112 lispro also held per protocol.
--- NOTE | 2022-07-11 06:37 | PC.NURSE ---
Pt non compliant with vitals.
[2022-07-11 07:34] LABS: Glucose, Whole Blood 51 mg/dL (60-115)
--- NOTE | 2022-07-11 07:38 | PC.NURSE ---
pt morning POC of 51. this nurse brought 2 cranberry juice in for pt and educated him that he needs to raise this blood sugar since pt refuse to take glucose paste gel. pt states just leave it there and i'll take it later. I don't want it now . notified.
[2022-07-11] MEDS: Aspirin Enteric Coated 81 MG TABLET.DR PO (09:21)
[2022-07-11] MEDS: Thiamine HCL 100 MG TABLET PO (09:21)
[2022-07-11] MEDS: Magnesium Oxide 400 MG TABLET PO ×2 (09:21→16:42)
[2022-07-11] MEDS: Multivitamin TABLET 1 TAB PO (09:21)
[2022-07-11] MEDS: oxyCODONE HCl Immed Release 5 MG TABLET PO ×3 (09:22→22:23)
[2022-07-11 09:56] LABS: Anion Gap 16 (12-20); Blood Urea Nitrogen 13 mg/dL (9-16); Calcium 8.3 mg/dL (8.4-10.2); Carbon Dioxide 25 mmol/L (22-29); Chloride 100 mmol/L (96-108); Creatinine Clr Calc Pharmacy 94.6; Estimated Glomerular Filt Rate > 60; Glucose Fasting 117 mg/dL (60-99); Potassium 4.6 mmol/L (3.3-5.1); Sodium 136 mmol/L (135-145)
[2022-07-11 10:01] LABS: Cortisol Random 5.6 ug/dL
[2022-07-11 10:54] LABS: Hematocrit 37.1 % (42.0-52.0); Hemoglobin 12.4 g/dl (14.0-18.0); Mean Corpuscular HGB Conc 33.4 g/dl (31.0-36.0); Mean Corpuscular Hemoglobin 30.9 pg (27.0-33.0); Mean Corpuscular Volume 92.5 fL (80.0-98.0); Mean Platelet Volume 8.7 fL (9.4-12.4); Platelet Count 192 X10*3/uL (160-400); Red Blood Count 4.01 X10*6/uL (4.60-5.80); Red Cell Distribution Width 13.2 % (11.0-16.0); White Blood Count 5.1 X10*3/uL (4.8-10.8)
--- NOTE | 2022-07-11 11:33 | P.PNIM_ITS ---
Subjective Subjective Date of Service: 07/11/22 Interval History: cc: fall, unable to get up from ground interval history:tired, cold Physical Exam Vital Signs: Vital Signs: Last Vital Signs Temp 98.5 F 07/11/22 08:00 Pulse 80 07/11/22 11:01 Resp 18 07/11/22 11:01 BP 120/75 07/11/22 08:00 Pulse Ox 95 07/11/22 08:00 O2 Del Method 07/11/22 08:00 O2 Flow Rate 2 07/07/22 14:30 FiO2 30 07/06/22 21:54 BMI result Body Mass Index 30.2 General: AO X 3, no acute distress Resp: CTA bilateral, no accessory muscles used CVS: S1,S2,RRR GI: soft, non tender, non distended Neuro: motor grossly intact, alert Psych: appropriate affect, appropriate insight Objective Data Active Medications Acetaminophen (Acetaminophen 325 Mg Tablet) 650 mg PO Q6H PRN PRN Reason: Pain, Mild (Pain Scale 1-3) Last Admin: 07/09/22 13:09 Dose: 650 mg Documented By: JEWELL Amoxicillin/Clavulanate Potassium (Amoxicillin/Potassium Clav 875 Mg Tablet) 875 mg PO Q12H [facility] Last Admin: 07/10/22 22:07 Dose: 875 mg Documented By: SERGEY Aspirin (Aspirin Enteric Coated 81 Mg Tablet.) 81 mg PO DAILY [facility] Last Admin: 07/11/22 09:21 Dose: 81 mg Documented By: ROLDAN Clotrimazole (Clotrimazole 1 % Cream 15 Gm Tube) 1 appl TOPICAL BID [facility]; Protocol Last Admin: 07/11/22 09:23 Dose: Not Given Documented By: ROLDAN Non-Admin Reason: Patient Refused Albuterol Sulfate 2.5 mg/ (Ipratropium [place] 0.5 mg) 0 mg INHALE RQ4H WHILE AWAKE PRN PRN Reason: sob Last Admin: 07/11/22 09:33 Dose: 2.5 each Documented By: JULIET Dextrose (Dextrose 50 % 25 Gm/50 Ml Syringe) 25 gm IVPUSH Q15M PRN; Protocol PRN Reason: per Hypoglycemia Standing Ord. Enoxaparin Sodium (Enoxaparin Sodium 40 Mg/0.4 Ml Syringe) 40 mg SUBCUT Q24H [facility] Last Admin: 07/10/22 17:51 Dose: 40 mg Documented By: ROLDAN Folic Acid (Folic Acid 1 Mg Tablet) 1 mg PO BEDTIME [facility] Last Admin: 07/10/22 22:09 Dose: 1 mg Documented By: SERGEY Glucose (Glucose Gel 15 Gm Gel..Gram.) 15 gm PO Q15M PRN; Protocol PRN Reason: per Hypoglycemia Standing Ord. Hydrocortisone (Hydrocortisone 10 Mg Tablet) 20 mg PO TID [facility] Insulin Glargine (Insulin Glargine,Hum.Rec.Anlog 100 Unit/Ml 10 Ml Vial) 15 unit SUBCUT BEDTIME [facility] Insulin Human Lispro (Insulin Lispro 100 Unit/Ml 3 Ml Vial) 0 unit SUBCUT QIDACHS [facility]; Protocol Last Admin: 07/11/22 07:44 Dose: Not Given Documented By: ROLDAN Non-Admin Reason: No Insulin Coverage Magnesium Oxide (Magnesium Oxide 400 Mg Tablet) 400 mg PO BIDPC [facility] Last Admin: 07/11/22 09:21 Dose: 400 mg Documented By: ROLDAN Melatonin (Melatonin 3 Mg Tablet) 6 mg PO BEDTIME PRN PRN Reason: insomnia Last Admin: 07/11/22 01:37 Dose: 6 mg Documented By: SERGEY Multivitamins/Vitamin C (Multivitamin Tablet) 1 tab PO DAILY [facility] Last Admin: 07/11/22 09:21 Dose: 1 tab Documented By: ROLDAN Nystatin (Nystatin Powder 15 Gm Bottle) 1 appl TOPICAL BID [facility]; Protocol Last Admin: 07/11/22 09:24 Dose: Not Given Documented By: ROLDAN Non-Admin Reason: Patient Refused Omeprazole (Omeprazole 20 Mg Gregg.) 20 mg PO BID@7930,0030 [facility] Last Admin: 07/11/22 05:34 Dose: Not Given Documented By: SERGEY Non-Admin Reason: Patient Refused Ondansetron HCl (Ondansetron Hcl 4 Mg/2 Ml Vial) 4 mg IVPUSH Q8H PRN PRN Reason: Nausea and Vomiting Last Admin: 07/05/22 08:49 Dose: 4 mg Documented By: ERIC Oxycodone HCl (Oxycodone Hcl Immed Release 5 Mg Tablet) 5 mg PO Q6H PRN PRN Reason: moderate pain Last Admin: 07/11/22 09:22 Dose: 5 mg Documented By: ROLDAN Sodium Chloride (0.9 % Sodium Chloride Flush 3 Ml Syringe) 3 ml IVFLUSH QSHIFT [facility] Last Admin: 07/11/22 09:20 Dose: Not Given Documented By: ROLDAN Non-Admin Reason: No Access Thiamine HCl (Thiamine Hcl 100 Mg Tablet) 100 mg PO DAILY [facility] Last Admin: 07/11/22 09:21 Dose: 100 mg Documented By: ROLDAN Labs 07/11/22 10:44 07/11/22 09:20 Labs: Laboratory Results - last 24 hr 07/10/22 07/10/22 07/10/22 10:39 10:39 10:39 MCV 92.5 MCH 30.3 MCHC 32.8 RDW 13.2 Plt Count 136 L D MPV Not Reportable Absolute Nucleated RBC 0.000 Nucleated RBC % (auto) 0.0 Anion Gap Estim Creat Clear Calc Estimated GFR POC Glucose Fasting Glucose Calcium TSH 1.97 Random Cortisol 4.8 07/10/22 07/10/22 07/11/22 16:00 19:31 07:30 MCV MCH MCHC RDW Plt Count MPV Absolute Nucleated RBC Nucleated RBC % (auto) Anion Gap Estim Creat Clear Calc Estimated GFR POC Glucose 118 H 112 51 L* Fasting Glucose Calcium TSH Random Cortisol 07/11/22 07/11/22 07/11/22 09:20 09:20 10:44 MCV 92.5 MCH 30.9 MCHC 33.4 RDW 13.2 Plt Count 192 D MPV 8.7 L Absolute Nucleated RBC 0.000 Nucleated RBC % (auto) 0.0 Anion Gap 16 Estim Creat Clear Calc 94.6 Estimated GFR > 60 POC Glucose Fasting Glucose 117 H Calcium 8.3 L TSH Random Cortisol 5.6 Microbiology Microbiology Results: Microbiology 07/08/22 07:04 Blood Culture - Preliminary Blood - Venous No growth after 48 hours. 07/08/22 02:02 Blood Culture - Preliminary Blood - Venous No growth after 48 hours. Assessment and Plan (1) Metabolic acidosis: Status: Acute (2) Cellulitis of scrotum: Status: Acute (3) Acute hyponatremia: Status: Acute (4) Electrolyte abnormality: Status: Acute (5) Rhabdomyolysis: Status: Acute Plan 66 year old M with a PMH of alcohol abuse, anxiety, copd, DM, chronic HFpEF, HLD, HTN, obesity who presented to the ED after paramedics were called in by a friend, pateint found on floor. was admitted for lauren/,ild rhabdo, hyponatremia, hypotension, mild scrotal cellulitis, was trasnferred to ICU for hypotension not responsive to fluids, required pressors, now off pressors and downgraded to medical floor Toxic metabolic encephalopathy Back to baseline Acute hyponatremia Resolved at acceptable rate Hypotension Possibly due to dehydration, though required pressors Now off pressors am cortisol repeatedly low, along with hypoglcemia, concern for adrenal insufficiency will start empiric hydrocortisone po, outpatient endocrine LAUREN with rhabdomyolysis Resolved Acute scrotal cellulitis Resolved, continue Augmentin Coag-negative blood culture Likely contaminant Diabetes with hyperglycemia and hypoglycemia Insulin, reducing glargine further to 15 units ? adrenal insufficiency (see above) Alcohol dependence with hepatic steatosis Alcohol cessation recommended, no evidence of withdrawal at this time Chronic diastolic CHF Monitor off diuretics Deconditioning plan for SNF for str at discharge DVT prophylaxis with Lovenox Full code reason for continued hospitalization: hypoglycemia Time Spent With Patient Time: Total time managing care of this patient today ____ minutes. Quality Stroke Does the patient have a stroke diagnosis?: No VTE Prior VTE?: No VTE Risk Level:: Medical - moderate - high VTE Device Contraindication: N/A - Device Ordered VTE Drug Contraindication: N/A - Med Ordered
[2022-07-11 11:55] LABS: Glucose, Whole Blood 123 mg/dL (60-115)
[2022-07-11] MEDS: Amoxicillin/Potassium Clav 875 MG TABLET PO ×2 (12:15→22:27)
[2022-07-11 16:33] LABS: Glucose, Whole Blood 153 mg/dL (60-115)
[2022-07-11] MEDS: Hydrocortisone 10 MG TABLET 20 MG PO (16:42)
[2022-07-11] MEDS: Omeprazole 20 MG CAPSULE.DR PO (16:42)
[2022-07-11] MEDS: Insulin Lispro 100 UNIT/ML 3 ML VIAL SUBCUT ×2 (16:42→20:14)
[2022-07-11] MEDS: Insulin Glargine,Hum.rec.anlog 100 UNIT/ML 10 ML VIAL 15 UNIT SUBCUT (20:13)
[2022-07-11 20:24] LABS: Glucose, Whole Blood 194 mg/dL (60-115)
[2022-07-12] MEDS: Melatonin 3 MG TABLET 6 MG PO ×2 (02:03→17:27)
[2022-07-12] MEDS: Omeprazole 20 MG CAPSULE.DR PO ×2 (04:04→17:26)
[2022-07-12] MEDS: oxyCODONE HCl Immed Release 5 MG TABLET PO ×3 (04:04→18:24)
[2022-07-12] MEDS: 0.9 % Sodium Chloride Flush 3 ML SYRINGE IVFLUSH (05:18)
--- NOTE | 2022-07-12 05:59 | PC.NURSE ---
0400 Pt refusing vitals.
[2022-07-12 07:29] VITALS: BP 139/76; PULSE 75; RESP 20; TEMP 36.4; O2SAT 97
[2022-07-12 07:45] LABS: Glucose, Whole Blood 112 mg/dL (60-115)
[2022-07-12 08:48] LABS: Anion Gap 15 (12-20); Blood Urea Nitrogen 14 mg/dL (9-16); Calcium 8.4 mg/dL (8.4-10.2); Carbon Dioxide 27 mmol/L (22-29); Chloride 100 mmol/L (96-108); Estimated Glomerular Filt Rate > 60; Glucose Fasting 104 mg/dL (60-99); Potassium 4.6 mmol/L (3.3-5.1); Sodium 137 mmol/L (135-145)
[2022-07-12 09:28] LABS: Hematocrit 37.1 % (42.0-52.0); Hemoglobin 12.2 g/dl (14.0-18.0); Mean Corpuscular HGB Conc 32.9 g/dl (31.0-36.0); Mean Corpuscular Hemoglobin 30.3 pg (27.0-33.0); Mean Corpuscular Volume 92.3 fL (80.0-98.0); PLT CLUMP 1; Red Blood Count 4.02 X10*6/uL (4.60-5.80); Red Cell Distribution Width 13.2 % (11.0-16.0)
[2022-07-12 09:51] LABS: White Blood Count 4.8 X10*3/uL (4.8-10.8)
[2022-07-12 09:52] LABS: Platelet Count 178 X10*3/uL (160-400)
[2022-07-12] MEDS: Aspirin Enteric Coated 81 MG TABLET.DR PO (10:05)
[2022-07-12] MEDS: Multivitamin TABLET 1 TAB PO (10:05)
[2022-07-12] MEDS: Thiamine HCL 100 MG TABLET PO (10:05)
[2022-07-12] MEDS: Hydrocortisone 10 MG TABLET 20 MG PO ×3 (10:05→21:57)
[2022-07-12] MEDS: Magnesium Oxide 400 MG TABLET PO ×2 (10:06→17:27)
[2022-07-12] MEDS: Amoxicillin/Potassium Clav 875 MG TABLET PO ×2 (10:06→21:57)
--- NOTE | 2022-07-12 10:17 | P.PNIM_ITS ---
Subjective Subjective Date of Service: 07/12/22 Interval History: cc: fall, unable to get up from ground interval history:less tired and cold Physical Exam Vital Signs: Vital Signs: Last Vital Signs Temp 97.6 F 07/12/22 07:29 Pulse 75 07/12/22 07:29 Resp 20 07/12/22 07:29 BP 139/76 07/12/22 07:29 Pulse Ox 97 07/12/22 07:29 O2 Del Method 07/12/22 07:29 O2 Flow Rate 2 07/07/22 14:30 FiO2 30 07/06/22 21:54 BMI result Body Mass Index 30.2 General: AO X 3, no acute distress Resp: CTA bilateral, no accessory muscles used CVS: S1,S2,RRR GI: soft, non tender, non distended Neuro: motor grossly intact, alert Psych: appropriate insight Objective Data Active Medications Acetaminophen (Acetaminophen 325 Mg Tablet) 650 mg PO Q6H PRN PRN Reason: Pain, Mild (Pain Scale 1-3) Last Admin: 07/09/22 13:09 Dose: 650 mg Documented By: JEWELL Amoxicillin/Clavulanate Potassium (Amoxicillin/Potassium Clav 875 Mg Tablet) 875 mg PO Q12H REPLACED BY [facility] Last Admin: 07/12/22 10:06 Dose: 875 mg Documented By: ROLDAN Aspirin (Aspirin Enteric Coated 81 Mg Tablet.) 81 mg PO DAILY REPLACED BY [facility] Last Admin: 07/12/22 10:05 Dose: 81 mg Documented By: ROLDAN Clotrimazole (Clotrimazole 1 % Cream 15 Gm Tube) 1 appl TOPICAL BID REPLACED BY [facility]; Protocol Last Admin: 07/11/22 20:15 Dose: Not Given Documented By: SERGEY Non-Admin Reason: Patient Refused Albuterol Sulfate 2.5 mg/ (Ipratropium [place] 0.5 mg) 0 mg INHALE RQ4H WHILE AWAKE PRN PRN Reason: sob Last Admin: 07/11/22 09:33 Dose: 2.5 each Documented By: JULIET Dextrose (Dextrose 50 % 25 Gm/50 Ml Syringe) 25 gm IVPUSH Q15M PRN; Protocol PRN Reason: per Hypoglycemia Standing Ord. Enoxaparin Sodium (Enoxaparin Sodium 40 Mg/0.4 Ml Syringe) 40 mg SUBCUT Q24H REPLACED BY [facility] Last Admin: 07/11/22 19:17 Dose: Not Given Documented By: ROLDAN Non-Admin Reason: Patient Refused Folic Acid (Folic Acid 1 Mg Tablet) 1 mg PO BEDTIME REPLACED BY [facility] Last Admin: 07/10/22 22:09 Dose: 1 mg Documented By: SERGEY Glucose (Glucose Gel 15 Gm Gel..Gram.) 15 gm PO Q15M PRN; Protocol PRN Reason: per Hypoglycemia Standing Ord. Hydrocortisone (Hydrocortisone 10 Mg Tablet) 20 mg PO TID REPLACED BY [facility] Last Admin: 07/12/22 10:05 Dose: 20 mg Documented By: ROLDAN Insulin Glargine (Insulin Glargine,Hum.Rec.Anlog 100 Unit/Ml 10 Ml Vial) 15 unit SUBCUT BEDTIME REPLACED BY [facility] Last Admin: 07/11/22 20:13 Dose: 15 unit Documented By: SERGEY Insulin Human Lispro (Insulin Lispro 100 Unit/Ml 3 Ml Vial) 0 unit SUBCUT QIDACHS REPLACED BY [facility]; Protocol Last Admin: 07/12/22 08:04 Dose: Not Given Documented By: ROLDAN Non-Admin Reason: No Insulin Coverage Magnesium Oxide (Magnesium Oxide 400 Mg Tablet) 400 mg PO BIDPC REPLACED BY [facility] Last Admin: 07/12/22 10:06 Dose: 400 mg Documented By: ROLDAN Melatonin (Melatonin 3 Mg Tablet) 6 mg PO BEDTIME PRN PRN Reason: insomnia Last Admin: 07/12/22 02:03 Dose: 6 mg Documented By: SERGEY Multivitamins/Vitamin C (Multivitamin Tablet) 1 tab PO DAILY REPLACED BY [facility] Last Admin: 07/12/22 10:05 Dose: 1 tab Documented By: ROLDAN Nystatin (Nystatin Powder 15 Gm Bottle) 1 appl TOPICAL BID REPLACED BY [facility]; Protocol Last Admin: 07/11/22 20:16 Dose: Not Given Documented By: SERGEY Non-Admin Reason: Patient Refused Omeprazole (Omeprazole 20 Mg Gregg.) 20 mg PO BID@0630,1630 REPLACED BY [facility] Last Admin: 07/12/22 04:04 Dose: 20 mg Documented By: SERGEY Ondansetron HCl (Ondansetron Hcl 4 Mg/2 Ml Vial) 4 mg IVPUSH Q8H PRN PRN Reason: Nausea and Vomiting Last Admin: 07/05/22 08:49 Dose: 4 mg Documented By: ERCI Oxycodone HCl (Oxycodone Hcl Immed Release 5 Mg Tablet) 5 mg PO Q6H PRN PRN Reason: moderate pain Last Admin: 07/12/22 10:06 Dose: 5 mg Documented By: ROLDAN Sodium Chloride (0.9 % Sodium Chloride Flush 3 Ml Syringe) 3 ml IVFLUSH QSHIFT REPLACED BY [facility] Last Admin: 07/12/22 10:04 Dose: Not Given Documented By: ROLDAN Non-Admin Reason: No Access Thiamine HCl (Thiamine Hcl 100 Mg Tablet) 100 mg PO DAILY REPLACED BY [facility] Last Admin: 07/12/22 10:05 Dose: 100 mg Documented By: ROLDAN Labs 07/12/22 09:19 07/12/22 08:03 Labs: Laboratory Results - last 24 hr 07/11/22 07/11/22 07/11/22 10:44 11:51 16:29 MCV 92.5 MCH 30.9 MCHC 33.4 RDW 13.2 Plt Count 192 D MPV 8.7 L Absolute Nucleated RBC 0.000 Nucleated RBC % (auto) 0.0 Anion Gap Estim Creat Clear Calc Estimated GFR POC Glucose 123 H 153 H Fasting Glucose Calcium 07/11/22 07/12/22 07/12/22 20:08 07:31 08:03 MCV MCH MCHC RDW Plt Count MPV Absolute Nucleated RBC Nucleated RBC % (auto) Anion Gap 15 Estim Creat Clear Calc 108.0 Estimated GFR > 60 POC Glucose 194 H 112 Fasting Glucose 104 H Calcium 8.4 07/12/22 09:19 MCV 92.3 MCH 30.3 MCHC 32.9 RDW 13.2 Plt Count 178 MPV Not Reportable Absolute Nucleated RBC 0.000 Nucleated RBC % (auto) 0.0 Anion Gap Estim Creat Clear Calc Estimated GFR POC Glucose Fasting Glucose Calcium Assessment and Plan (1) Metabolic acidosis: Status: Acute (2) Cellulitis of scrotum: Status: Acute (3) Acute hyponatremia: Status: Acute (4) Electrolyte abnormality: Status: Acute (5) Rhabdomyolysis: Status: Acute Plan 66 year old M with a PMH of alcohol abuse, anxiety, copd, DM, chronic HFpEF, HLD, HTN, obesity who presented to the ED after paramedics were called in by a friend, pateint found on floor. was admitted for lauren/,ild rhabdo, hyponatremia, hypotension, mild scrotal cellulitis, was trasnferred to ICU for hypotension not responsive to fluids, required pressors, now off pressors and downgraded to medical floor Toxic metabolic encephalopathy Back to baseline Acute hyponatremia Resolved at acceptable rate Hypotension Possibly due to dehydration, though required pressors Now off pressors am cortisol repeatedly low, along with hypoglcemia, concern for adrenal insufficiency started empiric hydrocortisone po, outpatient endocrine LAUREN with rhabdomyolysis Resolved Acute scrotal cellulitis Resolved, continue Augmentin Coag-negative blood culture Likely contaminant Diabetes with hyperglycemia and hypoglycemia Insulin, reduced glargine to 15 units ? adrenal insufficiency (see above), hypglycemia improved with steroids so far Alcohol dependence with hepatic steatosis Alcohol cessation recommended, no evidence of withdrawal at this time Chronic diastolic CHF Monitor off diuretics Deconditioning plan for SNF for str at discharge DVT prophylaxis with Lovenox Full code reason for continued hospitalization: hypoglycemia, hypotension, close montioring Time Spent With Patient Time: Total time managing care of this patient today ____ minutes. Quality Stroke Does the patient have a stroke diagnosis?: No VTE Prior VTE?: No VTE Risk Level:: Medical - moderate - high VTE Device Contraindication: N/A - Device Ordered VTE Drug Contraindication: N/A - Med Ordered
[2022-07-12 11:21] LABS: Glucose, Whole Blood 122 mg/dL (60-115)
[2022-07-12 11:23] VITALS: PULSE 84; RESP 18
[2022-07-12 11:38] VITALS: BP 135/80; PULSE 79; RESP 20; TEMP 36.4; O2SAT 99
[2022-07-12 15:33] VITALS: BP 101/54; PULSE 80; RESP 18; TEMP 36.9; O2SAT 93
--- NOTE | 2022-07-12 16:09 | PC.NURSE ---
16:10 this nurse went to check on pt and to give meds in which the pt demanded I need you to take your mask off when you talk to me, I can't hear you to which this nurse replied with I cannot take my mask for because I am at work and it's hospital policy. If you can't hear me I can speak up and we can turn the TV down a little so you can hear me better which pt angrily replied with well then shut up and don't talk to me and proceeds to kristen.
[2022-07-12 17:01] LABS: Glucose, Whole Blood 286 mg/dL (60-115)
[2022-07-12] MEDS: Insulin Lispro 100 UNIT/ML 3 ML VIAL SUBCUT ×2 (17:26→21:58)
[2022-07-12] MEDS: Enoxaparin Sodium 40 MG/0.4 ML SYRINGE SUBCUT (17:27)
[2022-07-12 20:00] VITALS: BP 137/66; PULSE 81; RESP 20; TEMP 37.1; O2SAT 95
[2022-07-12 20:31] LABS: Glucose, Whole Blood 326 mg/dL (60-115)
[2022-07-12] MEDS: Insulin Glargine,Hum.rec.anlog 100 UNIT/ML 10 ML VIAL 15 UNIT SUBCUT (21:57)
[2022-07-12] MEDS: Folic Acid 1 MG TABLET PO (21:57)
[2022-07-13] MEDS: Omeprazole 20 MG CAPSULE.DR PO ×2 (06:08→16:48)
[2022-07-13 07:27] VITALS: BP 131/61; PULSE 75; RESP 20; TEMP 37.1; O2SAT 96
[2022-07-13 07:46] LABS: Glucose, Whole Blood 149 mg/dL (60-115)
[2022-07-13] MEDS: Thiamine HCL 100 MG TABLET PO (09:08)
[2022-07-13] MEDS: Hydrocortisone 10 MG TABLET PO ×3 (09:08→21:30)
[2022-07-13] MEDS: Multivitamin TABLET 1 TAB PO (09:08)
[2022-07-13] MEDS: Aspirin Enteric Coated 81 MG TABLET.DR PO (09:09)
[2022-07-13] MEDS: Magnesium Oxide 400 MG TABLET PO ×2 (09:09→16:48)
[2022-07-13] MEDS: oxyCODONE HCl Immed Release 5 MG TABLET PO ×3 (09:11→21:30)
[2022-07-13 10:58] VITALS: BP 112/69; PULSE 80; RESP 20; TEMP 36.9; O2SAT 95
[2022-07-13 11:08] LABS: Glucose, Whole Blood 199 mg/dL (60-115)
[2022-07-13] MEDS: Amoxicillin/Potassium Clav 875 MG TABLET PO (11:25)
[2022-07-13] MEDS: Insulin Lispro 100 UNIT/ML 3 ML VIAL SUBCUT ×2 (11:25→16:48)
--- NOTE | 2022-07-13 12:02 | P.PNIM_ITS ---
Subjective Subjective Date of Service: 07/13/22 Interval History: cc: fall, unable to get up from ground interval history:less tired and cold Physical Exam Vital Signs: Vital Signs: Last Vital Signs Temp 98.5 F 07/13/22 10:58 Pulse 80 07/13/22 10:58 Resp 20 07/13/22 10:58 BP 112/69 07/13/22 10:58 Pulse Ox 95 07/13/22 10:58 O2 Del Method 07/13/22 10:58 O2 Flow Rate 2 07/07/22 14:30 FiO2 30 07/06/22 21:54 BMI result Body Mass Index 30.2 General: AO X 3, no acute distress Resp: CTA bilateral, no accessory muscles used CVS: S1,S2,RRR GI: soft, non tender, non distended Neuro: motor grossly intact, alert Psych: appropriate insight Objective Data Active Medications Acetaminophen (Acetaminophen 325 Mg Tablet) 650 mg PO Q6H PRN PRN Reason: Pain, Mild (Pain Scale 1-3) Last Admin: 07/09/22 13:09 Dose: 650 mg Documented By: JEWELL Amoxicillin/Clavulanate Potassium (Amoxicillin/Potassium Clav 875 Mg Tablet) 875 mg PO Q12H [facility] Last Admin: 07/13/22 11:25 Dose: 875 mg Documented By: ALEX Aspirin (Aspirin Enteric Coated 81 Mg Tablet.) 81 mg PO DAILY [facility] Last Admin: 07/13/22 09:09 Dose: 81 mg Documented By: ALEX Clotrimazole (Clotrimazole 1 % Cream 15 Gm Tube) 1 appl TOPICAL BID [facility]; Protocol Last Admin: 07/13/22 09:09 Dose: Not Given Documented By: ALEX Non-Admin Reason: Patient Refused Albuterol Sulfate 2.5 mg/ (Ipratropium [place] 0.5 mg) 0 mg INHALE RQ4H WHILE AWAKE PRN PRN Reason: sob Last Admin: 07/12/22 11:22 Dose: 2.5 each Documented By: JULIET Dextrose (Dextrose 50 % 25 Gm/50 Ml Syringe) 25 gm IVPUSH Q15M PRN; Protocol PRN Reason: per Hypoglycemia Standing Ord. Enoxaparin Sodium (Enoxaparin Sodium 40 Mg/0.4 Ml Syringe) 40 mg SUBCUT Q24H [facility] Last Admin: 07/12/22 17:27 Dose: 40 mg Documented By: ROLDAN Folic Acid (Folic Acid 1 Mg Tablet) 1 mg PO BEDTIME [facility] Last Admin: 07/12/22 21:57 Dose: 1 mg Documented By: BENITA Glucose (Glucose Gel 15 Gm Gel..Gram.) 15 gm PO Q15M PRN; Protocol PRN Reason: per Hypoglycemia Standing Ord. Hydrocortisone (Hydrocortisone 10 Mg Tablet) 10 mg PO TID [facility] Last Admin: 07/13/22 09:08 Dose: 10 mg Documented By: ALEX Insulin Glargine (Insulin Glargine,Hum.Rec.Anlog 100 Unit/Ml 10 Ml Vial) 15 unit SUBCUT BEDTIME [facility] Last Admin: 07/12/22 21:57 Dose: 15 unit Documented By: BENITA Insulin Human Lispro (Insulin Lispro 100 Unit/Ml 3 Ml Vial) 0 unit SUBCUT QIDACHS [facility]; Protocol Last Admin: 07/13/22 11:25 Dose: 2 unit Documented By: ALEX Magnesium Oxide (Magnesium Oxide 400 Mg Tablet) 400 mg PO BIDPC [facility] Last Admin: 07/13/22 09:09 Dose: 400 mg Documented By: ALEX Melatonin (Melatonin 3 Mg Tablet) 6 mg PO BEDTIME PRN PRN Reason: insomnia Last Admin: 07/12/22 17:27 Dose: 6 mg Documented By: ROLDAN Multivitamins/Vitamin C (Multivitamin Tablet) 1 tab PO DAILY [facility] Last Admin: 07/13/22 09:08 Dose: 1 tab Documented By: ALEX Nystatin (Nystatin Powder 15 Gm Bottle) 1 appl TOPICAL BID [facility]; Protocol Last Admin: 07/13/22 09:09 Dose: Not Given Documented By: ALEX Non-Admin Reason: Patient Refused Omeprazole (Omeprazole 20 Mg Gregg.) 20 mg PO BID@0630,1630 [facility] Last Admin: 07/13/22 06:08 Dose: 20 mg Documented By: BENITA Ondansetron HCl (Ondansetron Hcl 4 Mg/2 Ml Vial) 4 mg IVPUSH Q8H PRN PRN Reason: Nausea and Vomiting Last Admin: 07/05/22 08:49 Dose: 4 mg Documented By: ERIC Oxycodone HCl (Oxycodone Hcl Immed Release 5 Mg Tablet) 5 mg PO Q6H PRN PRN Reason: moderate pain Last Admin: 07/13/22 09:11 Dose: 5 mg Documented By: ALEX Sodium Chloride (0.9 % Sodium Chloride Flush 3 Ml Syringe) 3 ml IVFLUSH QSHIFT [facility] Last Admin: 07/13/22 09:09 Dose: Not Given Documented By: ALEX Non-Admin Reason: No Access Thiamine HCl (Thiamine Hcl 100 Mg Tablet) 100 mg PO DAILY [facility] Last Admin: 07/13/22 09:08 Dose: 100 mg Documented By: ALEX Labs 07/12/22 09:19 07/12/22 08:03 Labs: Laboratory Results - last 24 hr 07/12/22 07/12/22 07/13/22 16:46 20:15 07:32 POC Glucose 286 H 326 H 149 H 07/13/22 11:00 POC Glucose 199 H Microbiology Microbiology Results: Microbiology 07/08/22 07:04 Blood Culture - Final Blood - Venous No growth after 5 days. 07/08/22 02:02 Blood Culture - Final Blood - Venous No growth after 5 days. Assessment and Plan (1) Metabolic acidosis: Status: Acute (2) Cellulitis of scrotum: Status: Acute (3) Acute hyponatremia: Status: Acute (4) Electrolyte abnormality: Status: Acute (5) Rhabdomyolysis: Status: Acute Plan 66 year old M with a PMH of alcohol abuse, anxiety, copd, DM, chronic HFpEF, HLD, HTN, obesity who presented to the ED after paramedics were called in by a friend, pateint found on floor. was admitted for lauren/,ild rhabdo, hyponatremia, hypotension, mild scrotal cellulitis, was trasnferred to ICU for hypotension not responsive to fluids, required pressors, now off pressors and downgraded to medical floor Toxic metabolic encephalopathy Back to baseline Acute hyponatremia Resolved at acceptable rate Hypotension Possibly due to dehydration, though required pressors Now off pressors am cortisol repeatedly low, along with hypoglcemia, hypothermia, fatigue, concern for adrenal insufficiency started empiric hydrocortisone po and appears to be having positive response, outpatient endocrine LAUREN with rhabdomyolysis Resolved Acute scrotal cellulitis Resolved, completed abx course Coag-negative blood culture Likely contaminant Diabetes with hyperglycemia and hypoglycemia Insulin, reduced glargine to 15 units ? adrenal insufficiency (see above), hypoglycemia improved with steroids so far Alcohol dependence with hepatic steatosis Alcohol cessation recommended, no evidence of withdrawal at this time Chronic diastolic CHF Monitor off diuretics Deconditioning plan for SNF for str at discharge DVT prophylaxis with Lovenox Full code reason for continued hospitalization: safe dispo Time Spent With Patient Time: Total time managing care of this patient today ____ minutes. Quality Stroke Does the patient have a stroke diagnosis?: No VTE Prior VTE?: No VTE Risk Level:: Medical - moderate - high VTE Device Contraindication: N/A - Device Ordered VTE Drug Contraindication: N/A - Med Ordered
[2022-07-13 15:20] VITALS: BP 120/64; PULSE 78; RESP 20; TEMP 36.8; O2SAT 95
--- NOTE | 2022-07-13 15:54 | MHC.CM.PN ---
IMM 07/13/22 A bed has been offered by [facility] for STR. The patient accepts the bed. The facility has gone for insurance authorization. Discharge is planned for tomorrow once auth received. Patient will transport via BLS.
[2022-07-13 16:02] LABS: COVID-19 Test Negative (Negative); IDNOW Serial# 16C4AD1C
[2022-07-13 16:18] LABS: Glucose, Whole Blood 270 mg/dL (60-115)
[2022-07-13] MEDS: Enoxaparin Sodium 40 MG/0.4 ML SYRINGE SUBCUT (16:50)
[2022-07-13] MEDS: Melatonin 3 MG TABLET 6 MG PO (19:51)
[2022-07-13] MEDS: Folic Acid 1 MG TABLET PO (21:30)
[2022-07-14 04:00] VITALS: BP 130/62; PULSE 73; RESP 20; TEMP 36.7; O2SAT 93
[2022-07-14 07:27] LABS: Glucose, Whole Blood 152 mg/dL (60-115)
[2022-07-14] MEDS: Insulin Lispro 100 UNIT/ML 3 ML VIAL SUBCUT ×2 (09:00→11:47)
[2022-07-14] MEDS: Aspirin Enteric Coated 81 MG TABLET.DR PO (09:00)
[2022-07-14] MEDS: Magnesium Oxide 400 MG TABLET PO (09:00)
[2022-07-14] MEDS: oxyCODONE HCl Immed Release 5 MG TABLET PO (09:01)
[2022-07-14] MEDS: Hydrocortisone 10 MG TABLET PO (09:01)
[2022-07-14] MEDS: Multivitamin TABLET 1 TAB PO (09:01)
[2022-07-14] MEDS: Thiamine HCL 100 MG TABLET PO (09:01)
--- NOTE | 2022-07-14 09:02 | MHC.CM.PN ---
Addendum entered by Marissa Quinonez 07/14/22 12:26: All discharge information has been sent to [facility]. Transport is booked 1-1:30pm Original Note: IMM 07/13/22 [facility] has received insurance authorization. A negative covid test result has been sent to the facility. HCP requested and sent. Discharge order is pending MD review of Patient. Discharge is anticipated today.
[2022-07-14] MEDS: Omeprazole 20 MG CAPSULE.DR PO (09:04)
--- NOTE | 2022-07-14 11:20 | P.DS_ITS ---
DS: Providers Provider Date of Service: 07/14/22 Date of admission: 07/04/22 16:13 Date of discharge: 07/14/22 Primary care physician: Jaylen Cummings MD Consults: 07/04/22 16:52 Consult to Infectious Diseases Routine Consulting Provider: Zeina Prado Reason for consultation: scrotal cellulitis/hx of vre 07/04/22 17:04 Consult to Nephrology Routine Consulting Provider: Moses Tucker Reason for consultation: hyponatremia Has provider been notified: No 07/05/22 08:10 Consult to Urology Routine Consulting Provider: [facility] Reason for consultation: scrotal cellulitis Has provider been notified: No 07/09/22 14:26 Consult to Psychiatry Routine Consulting Provider: Psych Covering Reason for consultation: ?capacity to understand medical condition, refusing pt, treatments DS: Diagnosis Discharge Diagnosis (1) Metabolic acidosis: Status: Acute (2) Cellulitis of scrotum: Status: Acute (3) Acute hyponatremia: Status: Acute (4) Electrolyte abnormality: Status: Acute (5) Rhabdomyolysis: Status: Acute (6) Acute renal failure: Status: Acute DS: Summary Hospital Course Hospital Course: 66-year-old male with past medical history of ETOH abuse, anxiety, COPD, DM, chronic heart failure, HLD, HTN, obesity, presenting to the ED via EMS complaining of generalized weakness, left arm & left leg pain S/P leg giving out and falling at home 2 days ago.? Patient was unable to get himself off the ground, lying on floor for 2 days.? Denies head trauma or LOC. He said he could not able to get out of the floor for 2 days, and subsequently need for noticed it and called EMS and was brought to the hospital. Has mild redness in the right groin area, and some soreness. left foot skin abrasion. In addition does not move his left arm up says has shoulder arthritis and pain. Denies any SOB/CP, abdominal pain, nausea/ vomiting or fever chills or cough or phlegm or weakness or numbness. Lab imaging reviewed: wbc 10.6 Sodium 141, potassium 4.6, bicarb 18, anion gap 28 BUN 21 and creatinine 1.28.? In addition had hyperglycemia from 200-300 range. Serum osmolality is 258, urine osmolality added. Lactic acid 1.9 Mild elevated LFTs AST is 171 and ALT 58 and alkaline phosphatase 151 bilirubin of 1.1. CPK 2154, also lipase is is 265 CT head and cervical spine seems fine. Left shoulder x-ray:? Mild arthritis and possible calcific tendinitis. Hip x-ray:? Mild DJD. Hospital course: Patient was admitted for fall, LAUREN, rhabdomyolysis, sacral cellulitis, metabolic acidosis: Patient received hydration for LAUREN, rhabdo and metabolic acidosis, also was hypotensive-needed to go ICU for vasopressors- hypertension seems to be improved also LAUREN and rhabdo also seems to be improved. Metabolic acidosis also improved with above management. Toxic metabolic encephalopathy probably related to above, resolved. Sacral cellulitis: Completed antibiotics. Patient had coagulase negative blood culturethought to be likely contaminant. Alcohol dependence with hepatic steatosis:Alcohol cessation recommended, no evidence of withdrawal at this time. Lft's improving ,moniter Lft's outpatient. Diabetes with hyperglycemia and hypoglycemia:Insulin, reduced glargine? to 15 units ? adrenal insufficiency (see below), hypoglycemia improved with steroids so far. moniter fs and further management outpatient. During this admission- along with hypoglcemia, hypothermia, fatigue,cortisol repeatedly borderline( concern for adrenal insufficiency)-patient was empirically started on hydrocortisone, discussed with endocrinology:hydrocortisone dose was adjusted , Consider acth stimulation test with endocrinology outpatient at some point in next 1-2 weeks and further use hydrocortisone afterwards as per endocrinology. plan: concern for adrenal insufficiency-hydrocortisone dose was adjusted , Consider acth stimulation test with endocrinology outpatient at some point in next 1-2 weeks and further use hydrocortisone afterwards as per endocri nology.hydrocortisone adjusted 10 mg po in the morsning and 5 mg in evening. Diabetes with hyperglycemia and hypoglycemia:Insulin, reduced glargine? to 15 units,moniter fs and further management outpatient. Alcohol dependence with hepatic steatosis:Alcohol cessation recommended, no evidence of withdrawal at this time.Lft's improving ,moniter Lft's outpatient. assessment and plan coordination time spent 50 min. Time Spent with Patient Time attestation: Total time managing care of this patient today ____ minutes. Discharge coordination time: Greater than 30 minutes Quality: Safe Use of Opioids Does Pt have an Active Cancer Diagnosis on the Problem List?: No Quality: Stroke Does the patient have a stroke diagnosis?: No Physical Exam Vital Signs: Vital Signs: Last Vital Signs Temp 98.0 F 07/14/22 04:00 Pulse 73 07/14/22 04:00 Resp 20 07/14/22 04:00 BP 130/62 07/14/22 04:00 Pulse Ox 93 07/14/22 04:00 O2 Del Method 07/14/22 04:00 O2 Flow Rate 2 07/07/22 14:30 FiO2 30 07/06/22 21:54 BMI result Body Mass Index 30.2 Appearance: Alert.? Oriented X3.? not in distress.? cvs: rrr, [id number] , no murmur res: clear to auscultation ,no rhonchii or wheezing abd: no rebound or guarding ,nt, bs present. ext pulses present , no cyanosis . Gu: scrotal area -seems clean, no erythema . neuro: axo3 , nonfocal. DS: Data Data Completed and Pending Completed studies during hospitalization [Text1]: Procedures Detoxification Services for Substance Abuse Treatment (06/22/21) Insertion of Endotracheal Airway into Trachea, Via Natural or Artificial Opening Endoscopic (08/03/21) Insertion of Infusion Device into Lower Vein, Percutaneous Approach (08/03/21) Insertion of Infusion Device into Right Femoral Vein, Percutaneous Approach (08/03/21) Insertion of Infusion Device into Superior Vena Cava, Percutaneous Approach (08/03/21) Insertion of Infusion Device into Upper Vein, Percutaneous Approach (07/21/21) Introduction of Remdesivir Anti-infective into Peripheral Vein, Percutaneous Approach, [employer] (06/01/21) Introduction of Vasopressor into Peripheral Vein, Percutaneous Approach (08/03/21) Performance of Urinary Filtration, Intermittent, Less than 6 Hours Per Day (08/03/21) Removal of Infusion Device from Lower Vein, Percutaneous Approach (08/03/21) Respiratory Ventilation, Less than 24 Consecutive Hours (08/03/21) Ultrasonography of Superior Vena Cava, Guidance (08/03/21) Labs on day of discharge: Laboratory Results - last 24 hr 07/13/22 07/13/22 07/14/22 15:40 16:01 07:23 POC Glucose 270 H 152 H COVID-19 (ELIER) Negative COVID-19 Clin Com See Note Imaging Chest x-ray: Radiologist's impression: ITS Impressions Chest X-Ray 07/04/22 13:01 IMPRESSION: No radiographic evidence of acute cardiopulmonary disease. Hip/Pelvis X-Ray 07/04/22 13:01 IMPRESSION: Mild degenerative arthritis. . Shoulder X-Ray 07/04/22 13:01 IMPRESSION: * Soft tissue calcification superior to the shoulder joint suggesting calcific tendinitis. * DJD A.C. joint. * No fracture or dislocation. Cervical Spine CT 07/04/22 13:17 IMPRESSION: CT HEAD AND SPINE: Motion artifact significantly degrading images, limiting evaluation. Recommend repeat CT scan for evaluation. 1. In the nonobscured portion of the brain, no evidence of acute intracranial hemorrhage or edematous territorial infarction.. 2. No gross malalignment cervical spine. No gross acute fractures seen, but evaluation is limited by motion artifact. Head CT 07/04/22 13:17 IMPRESSION: CT HEAD AND SPINE: Motion artifact significantly degrading images, limiting evaluation. Recommend repeat CT scan for evaluation. 1. In the nonobscured portion of the brain, no evidence of acute intracranial hemorrhage or edematous territorial infarction.. 2. No gross malalignment cervical spine. No gross acute fractures seen, but evaluation is limited by motion artifact. Discharge Plan Discharge Anticipated Discharge Date/Time: 07/14/22 10:47 Patient Disposition: er SNF Discharge Diagnosis: Toxic metabolic encephalopathy, hyponatremia, hypertension, LAUREN with rhabdo, question of adrenal insufficiency Referrals: Rosalino Benitez MD [Physician] - 1 Week (? adrenal insufficiency) Name,MD Jaylen [Primary Care Provider] - 1 Week Discharge Medications: New hydrocortisone [Cortef] 10 mg Tablet 10 mg PO DAILY Qty: 30 0RF hydrocortisone 5 mg tablet 5 mg PO .EVENING Qty: 30 0RF Continued thiamine HCl (vitamin B1) 100 mg tablet 1 tab PO BEDTIME simvastatin 20 mg tablet 1 tab PO BEDTIME albuterol sulfate 90 mcg/actuation HFA aerosol inhaler 2 puff inhalation Q4H PRN (Reason: Wheezing) buspirone 5 mg tablet 5 mg PO BID aspirin 81 mg tablet,delayed release (DR/EC) 1 tab PO DAILY tamsulosin 0.4 mg capsule 1 cap PO DAILY@1700 ramelteon 8 mg tablet 1 tab PO BEDTIME omeprazole 20 mg capsule,delayed release(DR/EC) 1 cap PO BID@0630,1630 folic acid 1 mg tablet 1 tab PO BEDTIME celecoxib 50 mg capsule 1 cap PO BID omega [id number]-[id number]-fish oil 300 mg (120 mg- 180mg)-1,000 mg capsule 1 cap PO DAILY gabapentin 300 mg capsule 300 mg PO TID acetaminophen [Tylenol] 325 mg tablet 650 mg PO Q6H PRN (Reason: pain) Qty: 10 0RF multivitamin Tablet 1 tab PO DAILY Changed insulin glargine [Lantus U-100 Insulin] 100 unit/mL solution 15 unit subcut BEDTIME Qty: 1 0RF Discharge Orders: Discharge Order (Routine); Ordered 07/14/22 Ordered By: Sidney Ron Diet: Advance to usual diet Activity on Discharge: As tolerated Stand Alone Forms: Patient Portal Discharge page Care Plan Goals: Patient admitted due to fall, LAUREN, hyponatremia, rhabdomyolysis and also hypertension-patient seems to improved with hydration, LAUREN, hyponatremia seems to be improved significantly, in addition patient's cortisol level were borderline-had concern for added and insufficiency-patient was started empirically on hydrocortisone since currently patient is going to rehab-d/w endocrinology-hydrocortisone dose was adjusted but at some point in next 1-2 weeks: Consider acth stimulation test with endocrinology outpatient and further use hydrocortisone afterwards as per endocrinology. Health Concerns: As above. Plan of Treatment: As above. Assessment: As above.
[2022-07-14 11:42] LABS: Glucose, Whole Blood 209 mg/dL (60-115)
--- NOTE | 2022-07-14 13:10 | PC.NURSE ---
report received from overnight RN, medical equipment repairer per JUL. pt due for discharge today. Attempted to call facility x3 with no answer. Discharge paperwork and instructions sent with pt to facility. EMS to transport. Safety precautions remain in place until discharge.
== END 2022-07-14 13:21 | disposition skilled nursing facility (03) | DRG 557 ==
LOC: HO.ED 15:35 → HO.EDOVER 16:18 → HO.IMC 07-05 16:28 → HO.ICU 07-06 08:40 → HO.IMC 07-07 13:51
PROVIDERS: Internal Medicine; Internal Medicine Pulmonary Disease; Physician Assistant; Student in an Organized Health Care Education/Training Program; Admitting Provider Internal Medicine; Emergency Provider Emergency Medicine; PCP Internal Medicine Geriatric Medicine; Visit Provider Internal Medicine
DX: M62.82 Rhabdomyolysis (principal); A41.9 Sepsis, unspecified organism; J96.01 Acute respiratory failure with hypoxia; R65.21 Severe sepsis with septic shock; N17.0 Acute kidney failure with tubular necrosis; G92.8 Other toxic encephalopathy; E87.1 Hypo-osmolality and hyponatremia; I50.32 Chronic diastolic (congestive) heart failure; E87.21 Acute metabolic acidosis; E27.40 Unspecified adrenocortical insufficiency; J81.1 Chronic pulmonary edema; F41.9 Anxiety disorder, unspecified; I11.0 Hypertensive heart disease with heart failure; N49.2 Inflammatory disorders of scrotum; E11.65 Type 2 diabetes mellitus with hyperglycemia; F10.20 Alcohol dependence, uncomplicated; G47.33 Obstructive sleep apnea (adult) (pediatric); E86.0 Dehydration; K70.0 Alcoholic fatty liver; E11.649 Type 2 diabetes mellitus with hypoglycemia without coma; M19.012 Primary osteoarthritis, left shoulder; E66.9 Obesity, unspecified; M75.32 Calcific tendinitis of left shoulder; M16.12 Unilateral primary osteoarthritis, left hip; Z68.30 Body mass index [BMI] 30.0-30.9, adult; J44.9 Chronic obstructive pulmonary disease, unspecified; Z20.822 Contact with and (suspected) exposure to COVID-19; Z87.891 Personal history of nicotine dependence; Z79.82 Long term (current) use of aspirin; Z79.4 Long term (current) use of insulin; Z79.899 Other long term (current) drug therapy
CPT/HCPCS: 36415; 36600; 70450; 71045; 72125; 73030; 73502; 80048; 80076; 80143; 80179; 80307; 81001; 82009; 82040; 82077; 82140; 82436; 82533; 82550; 82803; 82947; 83036; 83605; 83690; 83735; 83880; 83930; 83935; 84100; 84133; 84300; 84443; 84484; 85025; 85027; 85610; 87040; 87147; 87205; 87635; 93005; 94640; 96360; 96361; 97110; 97116; 97162; 99285; J1650; J2020; J2405; J2543; J3411; P9047

== ENCOUNTER 2022-08-11 00:16 | Inpatient (IN) | payer OTHER, SELFPAY ==
[2022-08-11] VITALS (7 sets, daily range): BP systolic 120–138; BP diastolic 57–68; PULSE 88–103; RESP 16–20; TEMP 36.1–36.6; O2SAT 92–98; BMI 33.4
--- NOTE | ~2022-08-11 | CT_ITS ---
EXAMINATION: CT ABDOMEN AND PELVIS WITHOUT CONTRAST CLINICAL INFORMATION: Sepsis. COMPARISON: 03/15/2022 TECHNIQUE: Multidetector volumetric imaging was performed from the superior aspect of the liver through the pubic symphysis. Sagittal and coronal reformatted images were obtained on the technologist's workstation. This CT examination was performed using dose optimization techniques as appropriate, variously including the following: *Automated exposure control *Adjustment of mA and/or kV according to patient size (this includes techniques or standardized protocols for targeted exams where dose is matched to indication/reason for exam; i.e. extremities or head) *Use of iterative reconstruction technique DLP: 773 mGy-cm FINDINGS: LUNG BASES: There is respiratory motion on images through the bases. There appears to be mild atelectasis of the dependent right lower lobe and bronchial tom appear to be diffusely thickened. LIVER: Liver remains diffusely hypodense from steatosis (or steatohepatitis). No focal liver lesion. GALLBLADDER AND BILIARY TREE: Gallbladder is physiologically distended and without radiopaque stones, wall thickening or pericholecystic fluid. No dilated bile ducts. PANCREAS: Mildly atrophied. No edema, pancreatic ductal dilatation or mass. SPLEEN: Normal. ADRENAL GLANDS: Normal. KIDNEYS AND URETERS: No renal stones or hydronephrosis. Again noted is bilateral perinephric edema. The ureters are unremarkable. Simple cyst of the lateral cortex of the left kidney and left lower pole. No renal imaging follow-up is recommended for simple cysts. BLADDER: Decompressed by a Grissom catheter. BOWEL AND PERITONEUM: Small hiatal hernia. No dilated bowel loops. The appendix is normal. Diverticula of the descending and sigmoid colon without evidence of diverticulitis. No abdominal free fluid or free air. ABDOMINAL WALL: Mild fat stranding and gas in subcutaneous tissue of the right abdominal wall is likely from recent injection. Small focus of gas also observed in subcutaneous tissue of left lower abdominal wall. VASCULATURE: Atherosclerosis of the abdominal aorta and iliac arteries without aneurysm. LYMPH NODES: No pathologic sized lymph nodes in the abdomen or pelvis. No inguinal lymphadenopathy. PELVIC VISCERA: Prostate gland is unremarkable. No pelvic free fluid. MUSCULOSKELETAL: Facet osteoarthritis and mild grade 1 anterolisthesis at L4-L5. No acute skeletal findings. CT/CT abdomen pelvis wo IV con IMPRESSION: * No acute imaging abnormalities in the abdomen or pelvis compared 03/15/2022. * Liver is diffusely hypodense from steatosis or steatohepatitis. * Persistent nonspecific edema of perinephric fat. No renal stones or hydroureteronephrosis. * Colonic diverticulosis without diverticulitis.
--- NOTE | ~2022-08-11 | FL_ITS ---
EXAMINATION: XR LUMBAR PUNCTURE CLINICAL INFORMATION: Mental confusion. COMPARISON: None available. TECHNIQUE: Following explaining fluoroscopy-guided lumbar puncture procedure, benefits and risks to the patient's [id number] via phone a phone consent was obtained in presence of refrigeration technician. Patient was placed prone on fluoroscopy table and optimal site was marked along the skin. The marked site overlying the L4-L5 disc level was cleaned and draped in usual sterile manner. 1% lidocaine was injected at puncture site. A 22-gauge spinal needle was then advanced from the skin intrathecally under fluoroscopy. After observing CSF return patient was quickly placed in left lateral decubitus view and CSF was collected in 4 test tubes. Postprocedure stylet was reintroduced and needle removed. Complete hemostasis achieved at puncture site. Sterile dressing applied postprocedure. Patient tolerated procedure extremely well. Ativan was given by the patient's nurse due to significant patient motion during the exam. FINDINGS: On the AP and lateral views there is maintained lumbar lordosis. The vertebral heights, alignment and disc heights are normal. No visible bony abnormality seen. Approximately 8 mL of clear CSF fluid was collected and sent to lab. The second tube was hemorrhagic due to patient motion. The first, third and fourth tubes were clear. FLUOROSCOPY TIME: 0.8 minutes DOSE AREA PRODUCT: 15.332 uGy-m2 (microgray-meter squared) FL/FL guided lumbar puncture LP IMPRESSION: Successful fluoroscopy-guided L4-L5 lumbar puncture performed.
--- NOTE | ~2022-08-11 | CT_ITS ---
EXAMINATION: CT HEAD WITHOUT CONTRAST CLINICAL INFORMATION: Altered mental status. COMPARISON: Head CT scan dated 07/04/2022. TECHNIQUE: Contiguous axial imaging was performed from the skull base to vertex without intravenous administration of contrast. Coronal and sagittal reformatted images were obtained. Mild motion artifact limits evaluation. This CT examination was performed using dose optimization techniques as appropriate, variously including the following: *Automated exposure control *Adjustment of mA and/or kV according to patient size (this includes techniques or standardized protocols for targeted exams where dose is matched to indication/reason for exam; i.e. extremities or head) *Use of iterative reconstruction technique DLP: 821.7 mGy-cm FINDINGS: There is mild widening of the cortical sulci and associated ventriculomegaly. The lateral ventricles are symmetrical. The third and fourth ventricles are in their normal midline position. The basilar and prepontine cisterns are unremarkable. Mild periventricular microvascular changes. There is no acute intra or extracerebral abnormality. There is no mass effect or midline shift. Sections through the bony calvarium are unremarkable. The orbits are intact. The paranasal sinuses show mild mucosal thickening in the maxillary sinuses, left greater than right. No air-fluid levels. The mastoid air cells are clear. Mild to moderate nasal septal deviation, apex the right with small apical spur. CT/CT head/brain wo IV con IMPRESSION: No acute intracranial pathology.
--- NOTE | ~2022-08-11 | XR_ITS ---
EXAMINATION: XR CHEST CLINICAL INFORMATION: Rapid response COMPARISON: 07/04/2022 TECHNIQUE: Frontal view of the chest was obtained. FINDINGS: Postoperative changes of the right humerus. Mild increased interstitial opacities in the right lung may be partially due to position, although asymmetric edema cannot be excluded. No effusion or pneumothorax. Unchanged cardiomediastinal silhouette. XR/XR chest 1V IMPRESSION: Mild increased interstitial opacities in the right lung may be partially due to position, although asymmetric edema cannot be excluded.
--- NOTE | ~2022-08-11 | CT_ITS ---
EXAMINATION: CT CHEST WITHOUT CONTRAST CLINICAL INFORMATION: Sepsis. Fever. COMPARISON: Chest radiograph done earlier the same day. Most recent CT chest dated 03/15/2022. TECHNIQUE: Multidetector volumetric CT imaging of the chest was done. Axial MIP volume rendering provided. Sagittal and coronal reformatted images were obtained. This CT examination was performed using dose optimization techniques as appropriate, variously including the following: *Automated exposure control *Adjustment of mA and/or kV according to patient size (this includes techniques or standardized protocols for targeted exams where dose is matched to indication/reason for exam; i.e. extremities or head) *Use of iterative reconstruction technique DLP: 1971 mGy-cm FINDINGS: [employer]Y [employer] MARKER: Unremarkable. LUNGS: Evaluation limited secondary to respiratory motion. No large pulmonary nodule or mass. No confluent airspace consolidation. The central airways are patent. MEDIASTINUM: No cardiomegaly. No pericardial effusion. No thoracic aortic dilatation. Atherosclerotic calcifications are redemonstrated within the thoracic aorta. Stable, enlarged right-sided precarinal lymph node. No new or increasing mediastinal or hilar lymphadenopathy. CORONARY ARTERY CALCIFICATION: Present. PLEURA: There is no pleural effusion. No pleural mass or thickening. AXILLA: No lymphadenopathy. UPPER ABDOMEN: Unremarkable. OSSEOUS STRUCTURES: Unremarkable. CT/CT chest wo IV con IMPRESSION: 1. No large pulmonary nodule, mass, or confluent airspace consolidation. 2. Stable, prominent precarinal lymph node. No new or increasing lymphadenopathy. Fleischner guidelines were followed.
--- NOTE | ~2022-08-11 | XR_ITS ---
EXAMINATION: XR CHEST CLINICAL INFORMATION: Hypoxia COMPARISON: None available. TECHNIQUE: Frontal view of the chest was obtained. FINDINGS: No significant abnormality is noted involving the heart, lungs, mediastinum, bony thorax or soft tissues. XR/XR chest 1V IMPRESSION: Unremarkable chest examination.
[2022-08-11 01:06] LABS: Basophils Percent Auto 0.5 % (0-2); Eosinophils Absolute Auto 0.3 X10*3/uL (0.0-0.4); Eosinophils Percent Auto 4.5 % (0-4); Hemoglobin 13.1 g/dl (14.0-18.0); Imm Gran Abs Auto 0.02 X10*3/uL (0.00-0.03); Imm Gran Pct Auto 0.3 % (0.0-0.4); Lymphocytes Absolute Auto 0.9 X10*3/uL (1.2-4.9); Lymphocytes Percent Auto 16.1 % (20-40); MANUAL DIFF FLAG NO; Mean Corpuscular HGB Conc 34.5 g/dl (31.0-36.0); Mean Corpuscular Hemoglobin 29.8 pg (27.0-33.0); Mean Corpuscular Volume 86.4 fL (80.0-98.0); Mean Platelet Volume 8.6 fL (9.4-12.4); Monocytes Absolute Auto 0.7 X10*3/uL (0.1-1.2); Monocytes Percent Auto 11.6 % (2-11); Neutrophils Absolute Auto 3.9 x10*3/uL (2.0-8.3); Platelet Count 127 X10*3/uL (160-400); Red Cell Distribution Width 12.8 % (11.0-16.0); White Blood Count 5.8 X10*3/uL (4.8-10.8)
--- NOTE | 2022-08-11 01:07 | ED_ITS ---
HPI - Alcohol General Chief Complaint: ETOH/Substance Use Stated Complaint: alcohol withdrawal Time Seen by Provider: 08/11/22 01:06 Source: patient and EMS Mode of arrival: EMS Limitations: no limitations Related Data Home Medications Medication Instructions Recorded Confirmed albuterol sulfate 90 mcg/actuation 2 puff inhalation Q4H PRN Wheezing 12/29/20 07/04/22 aerosol inhaler simvastatin 20 mg tablet 1 tab PO BEDTIME 12/29/20 07/04/22 thiamine HCl (vitamin B1) 100 mg 1 tab PO BEDTIME 12/29/20 07/04/22 tablet aspirin 81 mg tablet,delayed 1 tab PO DAILY 02/04/21 07/04/22 release buspirone 5 mg tablet 5 mg PO BID 02/04/21 07/04/22 ramelteon 8 mg tablet 1 tab PO BEDTIME 05/12/21 07/04/22 tamsulosin 0.4 mg capsule 1 cap PO DAILY@1700 05/12/21 07/04/22 omeprazole 20 mg capsule,delayed 1 cap PO BID@0630,1630 06/01/21 07/04/22 release gabapentin 300 mg capsule 300 mg PO TID 10/06/21 07/04/22 multivitamin 1 tab PO DAILY 12/11/21 07/04/22 folic acid 1 mg tablet 1 tab PO BEDTIME 03/16/22 07/04/22 celecoxib 50 mg capsule 1 cap PO BID 07/04/22 07/04/22 omega-3 300 mg-dha 120 mg-epa 180 1 cap PO DAILY 07/04/22 07/04/22 mg-fish oil 1,000 mg capsule Previous Rx's Medication Instructions Recorded acetaminophen 325 mg tablet 650 mg PO Q6H PRN pain #10 tabs 10/08/21 (Tylenol) hydrocortisone 10 mg tablet 10 mg PO DAILY #30 tabs 07/14/22 (Cortef) hydrocortisone 5 mg tablet 5 mg PO .EVENING #30 tabs 07/14/22 insulin glargine 100 unit/mL 15 unit (0.15 mL) subcut BEDTIME 07/14/22 subcutaneous solution (Lantus #1 mL U-100 Insulin) Allergies Allergy/AdvReac Type Severity Reaction Status Date / Time environmental allergies Allergy Sneezing Verified 07/08/22 08:40 [facility] Past Medical History Medical History Acute diastolic CHF (congestive heart failure) Acute hyponatremia Acute respiratory failure with hypoxia Acute respiratory failure with hypoxia LAUREN (acute kidney injury) Alcohol abuse Anxiety Bilateral pleural effusion Cellulitis, scrotum Contusion of rib on left side COPD (chronic obstructive pulmonary disease) Diabetes mellitus type 1 Diastolic dysfunction Diastolic heart failure DMII (diabetes mellitus, type 2) Electrolyte abnormality Elevated troponin Fall Fall Fungal dermatitis Gram-positive bacteremia HLD (hyperlipidemia) Hypertension Metabolic acidosis Metabolic acidosis Nonrheumatic aortic (valve) stenosis Obesity Pneumonia Rhabdomyolysis Surgical History H/O elbow surgery H/O shoulder surgery History of hydrocelectomy S/P TURP Family History Family History Father Diabetes Mother Diabetes Social History Social History Household Members: None Housing: Apartment Do you presently have visiting nurse or other home services: No Unable to assess alcohol history related to: Unable to respond Alcohol intake: current Alcohol intake frequency: 3 or more drinks per day Alcohol type: hard liquor Patient Tobacco Use Status: Former Tobacco user Quit Date: 05/02/22 Tobacco use type: Cigar Years Smoked: 50 e-Cigarette/Vaping Use: Former Use Second Hand Smoke Exposure: No Advance Directives: Yes Advance Directives on File: Yes Advance Directives Date on File: 10/11/20 service: No Current occupational status: unemployed and disabled Physical Exam ED Vital Signs: Vital Signs - 24 hr 08/11/22 00:28 Temperature 98 F Pulse Rate 92 Respiratory Rate 20 Blood Pressure 132/68 Pulse Oximetry 96 Oxygen Delivery Method Room Air BMI result Body Mass Index 33.4 Medical Decision Making Lab Data 08/11/22 01:02 08/11/22 01:02 Labs: Lab Results 08/11/22 08/11/22 08/11/22 Range/Units 01:02 01:02 03:40 WBC 5.8 (4.8-10.8) X10*3/uL RBC 4.40 L (4.60-5.80) X10*6/uL Hgb 13.1 L (14.0-18.0) g/dl Hct 38.0 L (42.0-52.0) % MCV 86.4 (80.0-98.0) fL MCH 29.8 (27.0-33.0) pg MCHC 34.5 (31.0-36.0) g/dl RDW 12.8 (11.0-16.0) % Plt Count 127 L D (160-400) X10*3/uL MPV 8.6 L (9.4-12.4) fL Immature Gran % (Auto) 0.3 (0.0-0.4) % Neut % (Auto) 67.0 (45-73) % Lymph % (Auto) 16.1 L (20-40) % [place] % (Auto) 11.6 H (2-11) % Eos % (Auto) 4.5 H (0-4) % Baso % (Auto) 0.5 (0-2) % Lymph # (Auto) 0.9 L (1.2-4.9) X10*3/uL [place] # (Auto) 0.7 (0.1-1.2) X10*3/uL Eos # (Auto) 0.3 (0.0-0.4) X10*3/uL Baso # (Auto) 0.0 (0.0-0.2) X10*3/uL Abs Immat Gran (auto) 0.02 (0.00-0.03) X10*3/uL Absolute Neuts (auto) 3.9 (2.0-8.3) x10*3/uL Absolute Nucleated RBC 0.000 (0.0-0.012) X10*3/uL Nucleated RBC % (auto) 0.0 (0.0-0.2) /100WBC Sodium 127 L (135-145) mmol/L Potassium 3.0 L D (3.3-5.1) mmol/L Chloride 85 L (96-108) mmol/L Carbon Dioxide 22 (22-29) mmol/L Anion Gap 23 H (12-20) BUN 9 (9-16) mg/dL Creatinine 1.28 (0.5-1.4) mg/dL Estim Creat Clear Calc 65.0 Estimated GFR 56 Random Glucose 184 H (60-115) mg/dL Calcium 8.8 (8.4-10.2) mg/dL Magnesium 1.7 (1.6-2.6) mg/dL Total Bilirubin 0.7 (0.0-1.0) mg/dL Direct Bilirubin 0.2 (0.0-0.5) mg/dL AST 41 H (5-37) U/L ALT 42 H (0-40) U/L Alkaline Phosphatase 130 H (39-117) U/L Total Protein 6.5 (6.5-8.0) g/dL Albumin 3.8 (3.5-5.0) g/dL Lipase 18 (8-78) U/L COVID-19 (ELIER) Invalid (Negative) COVID-19 Clin Com See Note Medications Administered Generic Name Dose Route Start Last Admin Trade Name Freq PRN Reason Stop Dose Admin Enoxaparin Sodium 40 mg 08/11/22 06:00 08/11/22 05:08 Enoxaparin Sodium 40 Mg/0.4 Ml Syringe SUBCUT 40 mg Q24H JOURDAN Administration Discontinued Medications Generic Name Dose Route Start Last Admin Trade Name Freq PRN Reason Stop Dose Admin Folic Acid 1 mg 08/11/22 01:21 08/11/22 01:43 Folic Acid 1 Mg Tablet PO 08/11/22 01:22 1 mg ONCE ONE Administration Sodium Chloride 1,000 mls @ 999 mls/hr 08/11/22 01:20 08/11/22 01:43 Ns IV 08/11/22 02:20 999 mls/hr .Q1H1M ONE Administration Sodium Chloride 1,000 mls @ 999 mls/hr 08/11/22 02:58 08/11/22 03:42 Ns IV 08/11/22 03:58 999 mls/hr .Q1H1M ONE Administration Magnesium Sulfate 2 gm in 50 mls @ 100 mls/hr 08/11/22 02:58 08/11/22 04:09 Magnesium Sulfate/H2o IV 08/11/22 03:27 Not Given ONCE ONE Potassium Chloride 10 meq in 100 mls @ 100 mls/hr 08/11/22 02:58 08/11/22 03:56 Potassium Chloride/H20 IV 08/11/22 03:57 0 mls/hr ONCE ONE Infusion Lorazepam 2 mg 08/11/22 01:20 08/11/22 01:43 Lorazepam 2 Mg/Ml Vial IVPUSH 08/11/22 01:21 2 mg ONCE ONE Administration Magnesium Oxide 400 mg 08/11/22 03:55 08/11/22 05:08 Magnesium Oxide 400 Mg Tablet PO 08/11/22 03:56 400 mg ONCE ONE Administration Nystatin 1 appl 08/11/22 02:59 08/11/22 04:10 Nystatin Powder 15 Gm Bottle TOPICAL 08/11/22 03:00 Not Given ONCE ONE Protocol Pantoprazole Sodium 40 mg 08/11/22 01:20 08/11/22 01:43 Pantoprazole Sodium 40 Mg/10 Ml Vial IVPUSH 08/11/22 01:21 40 mg ONCE ONE Administration Phenobarbital Sodium 396 mg 08/11/22 02:00 08/11/22 03:31 Phenobarbital Sodium 130 Mg/Ml Im Once IM 08/11/22 02:01 396 mg ONCE ONE Administration Potassium Bicarbonate 50 meq 08/11/22 03:55 08/11/22 05:08 Potassium Bicarbonate/Cit Ac 25 Meq Tablet.Eff PO 08/11/22 03:56 50 meq ONCE ONE Administration Thiamine HCl 100 mg 08/11/22 01:21 08/11/22 01:43 Thiamine Hcl 100 Mg Tablet PO 08/11/22 01:22 100 mg ONCE ONE Administration Discharge Plan Discharge Clinical Impression: Generalized weakness, Alcohol withdrawal, Chronic hypokalemia, Chronic hyponatremia Patient Disposition: Admitted As Inpatient
[2022-08-11 01:27] LABS: Alanine Aminotransferase 42 U/L (0-40); Albumin Level 3.8 g/dL (3.5-5.0); Alkaline Phosphatase 130 U/L (39-117); Anion Gap 23 (12-20); Aspartate Amino Transferase 41 U/L (5-37); Bilirubin Direct 0.2 mg/dL (0.0-0.5); Bilirubin Total 0.7 mg/dL (0.0-1.0); Blood Urea Nitrogen 9 mg/dL (9-16); Calcium 8.8 mg/dL (8.4-10.2); Carbon Dioxide 22 mmol/L (22-29); Chloride 85 mmol/L (96-108); Estimated Glomerular Filt Rate 56; Glucose Random 184 mg/dL (60-115); Lipase 18 U/L (8-78); Sodium 127 mmol/L (135-145); Total Protein 6.5 g/dL (6.5-8.0)
--- NOTE | 2022-08-11 01:39 | PC.NURSE ---
#20 ultrasound guided PIV initiated to rightAC per Yoel ROSENBERG.
[2022-08-11] MEDS: Thiamine HCL 100 MG TABLET PO (01:43)
[2022-08-11] MEDS: LORazepam 2 MG/ML VIAL IVPUSH (01:43)
[2022-08-11] MEDS: 0.9 % Sodium Chloride 1,000 ML 999 ML IV ×2 (01:43→03:42)
[2022-08-11] MEDS: Pantoprazole Sodium 40 MG/10 ML VIAL IVPUSH (01:43)
[2022-08-11] MEDS: Folic Acid 1 MG TABLET PO (01:43)
[2022-08-11 01:45] LABS: Magnesium 1.7 mg/dL (1.6-2.6)
--- NOTE | 2022-08-11 01:45 | PC.NURSE ---
Pt with complaints of pain to right AC IV site after ativan and protonix administration through line with IV fluids infusing. Site appears to be infiltrated. Provider made aware.
--- OUTSIDE RECORDS SUMMARY | 2022-08-11 02:35 | XMS_ITS | Continuity of Care Document ---
Author Name Unknown Organization [facility] Infectious Disease Address [address] [place] [address]- Care Team Providers Care Blockman Name Role Phone Ulysses UMAÑA, Fredy العلي Primary Care Physician Encounter [place] Date(s): 10/09/19 - 11/08/19 [facility] Infectious Disease [address] [place] [id number] [facility] Attending Physician: Rainer Ram Admitting Physician: Rainer Ram Referring Physician: AdmtrRainer Allergies, Adverse Reactions, Alerts Substance Reaction Severity Status NKA Active Immunizations Given and Recorded Vaccine Date Status Refusal Reason influenza virus vaccine, inactivated 02/16/12 Give n influenza virus vaccine, inactivated 02/18/11 Give n influenza virus vaccine, inactivated 03/17/10 Give n influenza virus vaccine, inactivated 1 02/16/09 Gi phoebe pneumococcal 23-valent vaccine 02/18/11 Given 1Result Comment: LOT # [id number] EXP VIS 12-18-08 Medications acetaminophen 325 mg oral tablet 650 mg, By Mouth, Every 6 hours, PRN, Temperature Greater than 100.5, Refills 0, Maintenance, Headache Pain , Mild, 09/18/19 11:13:00 EDT Start Date: 09/18/19 Status: Ordered aspirin 81 mg oral tablet 1 tablet = 81 mg, By Mouth, Daily, 0 Refills, Maintenance, 03/27/14 13:20:07 Start Date: 03/27/14 Status: Ordered bisacodyl 10 mg rectal suppository 1 supp = 10 mg, Rectally, Daily, PRN for constipation, Maintenance, 09/26/19 14:37:00 EDT, Suppository Start Date: 09/26/19 Status: Ordered busPIRone 5 mg oral tablet 5 mg, 1, tablet, By Mouth, 2 times a day, Refills 0, Maintenance, 01/25/18 9:12:26 EDT Start Date: 01/25/18 Status: Ordered Eliquis 5 mg oral tablet 1 tablet = 5 mg, By Mouth, 2 times a day, # 60 tablet, 0 Refills, Maintenance, 09/18/19 11:26:00 EDT, Tablet Start Date: 09/18/19 Status: Ordered EPA Fish Oil 1000 mg oral capsule 1 capsule = 1,000 mg, By Mouth, Daily, 0 Refills, Maintenance, 03/27/14 13:24:24 EST Start Date: 03/27/14 Status: Ordered Fleet Enema 19 gm-7 gm rectal enema 1 each, Rectally, Daily, PRN as needed for constipation, Maintenance, 09/26/19 14:37:00 EDT, Enema Start Date: 09/26/19 Status: Ordered folic acid 1 mg oral tablet 1 mg, 1, tablet, By Mouth, Daily, Maintenance, 08/09/18 17:08:26 EDT Start Date: 08/09/18 Status: Ordered gabapentin 300 mg oral capsule 2 capsule = 600 mg, By Mouth, 3 times a day, # 270 capsule, 0 Refills, Maintenance, 11/17/12 12:47:50, Capsule Start Date: 11/17/12 Status: Ordered Insulin Glargine = 40 units, Subcutaneous Injection, Daily at bedtime, 0 Refills, Maintenance, 09/21/13 17:20:40 EDT Start Date: 09/21/13 Status: Ordered Insulin Lispro 2-10 units, Subcutaneous Injection, 3 times a day before meals, << Sliding Scale Comments >> 150 - 199 2 units Call if less than 100 200 - 249 4 units 250 - 299 6 units 300 - 349 8 units 350 - 399 10 units Call if greater than 400 <... Start Date: 09/28/19 Status: Ordered Milk of Magnesia 8% oral suspension 30 mL = 2.4 Gm, By Mouth, Daily at bedtime, PRN for constipation, Maintenance, 09/26/19 14:38:00 EDT, Suspension Start Date: 09/26/19 Status: Ordered mirtazapine 30 mg oral tablet 1 tablet = 30 mg, By Mouth, Daily at bedtime, 0 Refills, Maintenance, 10/21/18 10:03:56 EDT Start Date: 10/21/18 Status: Ordered Multivitamin 1 tablet, By Mouth, Daily, 0 Refills, Maintenance Start Date: 01/19/12 Status: Ordered omeprazole 20 mg oral enteric coated capsule 1 capsule = 20 mg, By Mouth, Daily, Maintenance, 08/09/18 17:08:34 EDT, EC Capsule Start Date: 08/09/18 Status: Ordered oxyCODONE 5 mg oral tablet 10 mg, 2, tablet, By Mouth, Every 6 hours, PRN, # 20 tablet, Refills 0, Tot. Refills 0, Soft Stop, Pain , Severe, 09/28/19 15:38:00 EDT, Print Requisition, Partial fill upon patient request Start Date: 09/28/19 Status: Ordered ProAir HFA 90 mcg/inh inhalation aerosol with adapter 2, puffs, Inhalation, Every 4 hours, PRN, Maintenance, 09/26/19 15:06:00 EDT, Aerosol Start Date: 09/26/19 Status: Ordered simvastatin 20 mg oral tablet 1 tablet = 20 mg, By Mouth, Daily at bedtime, 0 Refills, Maintenance Start Date: 04/20/12 Status: Ordered traZODone 50 mg oral tablet 25 mg, 0.5, tablet, By Mouth, Daily at bedtime, PRN, Refills 0, Maintenance, Insomnia, 09/18/19 11:13:00 EDT Start Date: 09/18/19 Status: Ordered Vancomycin 1 Gm, IV Infusion, 2 times a day, Maintenance, 09/26/19 14:33:00 EDT Start Date: 09/26/19 Status: Ordered Vitamin B1 100 mg oral tablet 100 mg, 1, tablet, By Mouth, Daily, Maintenance, 08/09/18 17:08:29 EDT Start Date: 08/09/18 Status: Ordered Zofran ODT 4 mg oral tablet, disintegrating 1 tablet = 4 mg, By Mouth, 3 times a day, PRN Nausea, # 90 Doses, 1 Refills, Maintenance, 04/03/19 9:49:00 EST Start Date: 04/03/19 Status: Ordered zolpidem 5 mg oral tablet 1 tablet = 5 mg, By Mouth, Daily at bedtime, PRN Sleep, 0 Refills, Maintenance, 09/28/19 13:31:00 EDT, Tablet Start Date: 09/28/19 Status: Ordered Problem List Condition Effective Dates Status Health Status Inform ant Alcohol abuse(Confirmed) Active Alcohol Withdrawal(Confirmed) 08/10/10 Active Alcohol withdrawal seizure(Confirmed) Active Alcoholism(Confirmed) 04/17/12 Active CHEST PAIN(Confirmed) Active Chest pain(Confirmed) 05/05/12 Active COPD (chronic obstructive pu lmonary disease)(Confirmed) 05/05/12 Active Diverticulosis(Confirmed) Active GI bleed(Confirmed) Active Hyperlipemia(Confirmed) Active Hypertension(Confirmed) Active Peripheral neuropathy(Confirmed) Active Syncope(Confirmed) Active 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
--- OUTSIDE RECORDS SUMMARY | 2022-08-11 02:35 | XMS_ITS | Continuity of Care Document ---
Author Name Unknown Organization [facility] ter Address [address] [place] [id number]- Care Team Providers Care Kennel Hand Name Role Phone Ulysses UMAÑA, Fredy العلي Primary Care Physician [place] [facility] [place] - 09/28/[address] [address] [place] Encounter Diagnosis Jean catheter dysfunction(Discharge Diagnosis) - 09/28/19 Discharge Disposition: A-Transfer SNF Attending Physician: Kike Wayne MD Admitting Physician: Angi Remy MD Referring Physician: Not on Staff, Referring MD Allergies, Adverse Reactions, Alerts Substance Reaction Severity Status NKA Active Immunizations Given and Recorded Vaccine Date Status Refusal Reason influenza virus vaccine, inactivated 02/16/12 Give n influenza virus vaccine, inactivated 02/18/11 Give n influenza virus vaccine, inactivated 03/17/10 Give n influenza virus vaccine, inactivated 1 02/16/09 Gi phoebe pneumococcal 23-valent vaccine 02/18/11 Given 1Result Comment: LOT # [id number] EXP VIS 12-18-08 Medications acetaminophen 325 mg [...] atheros clerosis of arteries of extremities(Confirmed) Active Diagnosis Diagnosis Type Effective Dates Health Status Clinical Service Informant Jean catheter dysfunction Discharge Diagnosis 09/28/19 Non-Specified Results Orders for Microbiology Reports Name Date Blood Culture 09/26/19 Blood Culture #2 09/26/19 Microbiology Reports TEST:Blood Culture, Second Order STATUS:Unauthenticated BODY SITE: SOURCE:Blood COLLECTED DATE/TIME:09/26/19 11:45 AM Blood Culture, Second Order SPECIMEN DESCRIPTION : BLOOD L FOREARM SPECIAL REQUESTS : NONE CULTURE : NO GROWTH AFTER 48 HOURS REPORT STATUS : PRELIMINARY REPORT TEST:Blood Culture STATUS:Unauthenticated BODY SITE: SOURCE:Blood COLLECTED DATE/TIME:09/26/19 9:28 AM Blood Culture SPECIMEN DESCRIPTION : BLOOD R HAND SPECIAL REQUESTS : NONE CULTURE : NO GROWTH AFTER 48 HOURS REPORT STATUS : PRELIMINARY REPORT Vital Signs Most recent to oldest [Reference Range]: 1 2 3 Height 174 cm (09/28/19 5:36 AM) 174 cm (09/27/19 9:25 PM) 174 cm (09/27/19 2:25 PM) Weight 102.2 kg (09/27/19 12:38 AM) Oxygen Saturation [94-100 %] 95 % (09/28/19 1:00 PM) 96 % (09/28/19 5:36 AM) 96 % (09/27/19 9:25 PM) Pulse Rate [55-90 bpm] 91 bpm *H* (09/28/19 1:00 PM) 90 bpm (09/28/19 5:36 AM) 84 bpm (09/27/19 9:25 PM) Body Mass Index [18.5-24.99] 33.76 *>HHI* (09/27/19 12:38 AM) Blood Pressure [90-138/55-84 mm Hg] 131/66mm Hg (09/28/19 1:00 PM) 119/67mm Hg (09/28/19 5:36 AM) 118/54mm Hg (09/27/19 9:25 PM) Respiratory Rate [16-30 br/min] 20 br/min (09/28/19 3:58 PM) 17 br/min (09/28/19 1:58 PM) 17 br/min (09/28/19 1:00 PM) Temperature [96.8-100.4 DegF] 98.5 DegF (09/28/19 1:00 PM) 98.6 DegF (09/28/19 5:36 AM) 97.7 DegF (09/27/19 9:25 PM) Liters per Minute 0 L/min (09/26/19 8:49 AM) Mode of Delivery (Oxygen) Room air (09/28/19 1:00 PM) Room air (09/28/19 5:36 AM) Room air (09/27/19 9:25 PM) Blood pressure sites Arm, left (09/28/19 1:00 PM) Arm, left (09/28/19 5:36 AM) Arm, left (09/27/19 9:25 PM) Temperature Route Oral (09/28/19 1:00 PM) Oral (09/28/19 5:36 AM) Oral (09/27/19 9:25 PM) Dry Weight 102.2 kg (09/27/19 12:38 AM) Social History Social History Type Response Smoking Status Cigars or pipes santy y within last 30 days;Former smoker, quit more than 30 days ago; Type: Cigarettes; Type: Cigars; Total pack years: 120; entered on: 08/09/18 Sex Male
--- OUTSIDE RECORDS SUMMARY | 2022-08-11 02:35 | XMS_ITS | Continuity of Care Document ---
Author Name Unknown Organization [facility] Address [address] [place] [id number]- Care Team Providers Care Reservations Manager Name Role Phone Name Jaylen UMAÑA Primary Care Physician [place] [facility] [place] 12[place]20 [facility] [address] [place] [id number]- [place] Allergies, Adverse Reactions, Alerts Substance Reaction Severity Status NKA Active Immunizations Given and Recorded Vaccine Date Status Refusal Reason influenza virus vaccine, inactivated 02/16/12 Give n influenza virus vaccine, inactivated 02/18/11 Give n influenza virus vaccine, inactivated 03/17/10 Give n influenza virus vaccine, inactivated 1 02/16/09 Gi phoebe pneumococcal 23-valent vaccine 02/18/11 Given 1Result Comment: LOT # [id number] EXP VIS 12-18-08 Medications acamprosate 333 mg oral delayed release tablet 2 tablet = 666 mg, By Mouth, 3 times a day, # 180 tablet, 0 Refills, Maintenance, 12/20/20 8:52:00 EDT, EC Tablet, Partial fill upon patient request if the prescription is for a schedule II opioid drug. Start Date: 12/20/20 Status: Ordered acetaminophen 325 mg oral tablet 975 mg, 3, tablet, By Mouth, Every 6 hours, Refills 0, Maintenance, 12/20/20 8:30:00 EDT, Partial fill upon patient request if the prescription is for a schedule II opioid drug. Start Date: 12/20/20 Status: Ordered albuterol 0.083% inhalation solution 3 mL = 2.5 mg, Neb, Every 6 hours, PRN as needed for wheezing, Maintenance, 12/14/20 11:38:00 EDT, Solution, Partial fill upon patient request if the prescription is for a schedule II opioid drug. Start Date: 12/14/20 Status: Ordered aspirin 81 mg oral tablet 1 tablet = 81 mg, By Mouth, Daily, 0 Refills, Maintenance, 03/27/14 13:20:07 Start Date: 03/27/14 Status: Ordered busPIRone 5 mg oral tablet 5 mg, 1, tablet, By Mouth, 2 times a day, Refills 0, Maintenance, 01/25/18 9:12:26 EDT Start Date: 01/25/18 Status: Ordered celecoxib 50 mg oral capsule 1 capsule = 50 mg, By Mouth, 2 times a day, Maintenance, 12/14/20 11:37:00 EDT, Capsule, Partial fill upon patient request if the prescription is for a schedule II opioid drug. Start Date: 12/14/20 Status: Ordered Duoneb Inhalation Solution 1, vials, BAND Nebulizer, Every 6 hours, PRN, Refills 0, Maintenance, 12/20/20 8:32:00 EDT, Inhalation Solution Start Date: 12/20/20 Status: Ordered EPA Fish Oil 1000 mg oral capsule 1 capsule = 1,000 mg, By Mouth, Daily, 0 Refills, Maintenance, 03/27/14 13:24:24 EST Start Date: 03/27/14 Status: Ordered fluticasone-vilanterol 1, Inhalation, Daily, 0 Refills, Maintenance, 12/20/20 8:30:00 EDT, Inhaler, Partial fill upon patient request if the prescription is for a schedule II opioid drug. Start Date: 12/20/20 Status: Ordered folic acid 1 mg oral [...] 17:20:40 EDT Start Date: 09/21/13 Status: Ordered Jardiance 10 mg oral tablet 1 tablet = 10 mg, By Mouth, Daily in AM, Maintenance, 12/14/20 11:38:00 EDT, Tablet, Partial fill upon patient request if the prescription is for a schedule II opioid drug. Start Date: 12/14/20 Status: Ordered lidocaine 5% topical film 2 patch, Topically, Daily, 0 Refills, Maintenance, 12/20/20 8:30:00 EDT, Patch, Partial fill upon patient request if the prescription is for a schedule II opioid drug. Start Date: 12/20/20 Status: Ordered lisinopril 10 mg oral tablet 10 mg, 1, tablet, By Mouth, Daily, Maintenance, 12/14/20 11:39:00 EDT, Partial fill upon patient request if the prescription is for a schedule II opioid drug. Start Date: 12/14/20 Status: Ordered loperamide 2 mg oral capsule 2 mg, 1, capsule, By Mouth, Every 3 hours, PRN, Refills 0, Maintenance, Loose Stool, 12/20/20 8:31:00 EDT, Partial fill upon patient request if the prescription is for a schedule II opioid drug. Start Date: 12/20/20 Status: Ordered loteprednol 0.5% ophthalmic suspension 1 drops, Eyes, Both, 3 times a day, Maintenance, 12/14/20 11:40:00 EDT, Partial fill upon patient request if the prescription is for a schedule II opioid drug. Start Date: 12/14/20 Status: Ordered melatonin 5 mg oral tablet By Mouth, Daily at bedtime, 0 Refills, Maintenance, 12/20/20 8:31:00 EDT, Tablet, Partial fill uponpatient request if the prescription is for a schedule II opioid drug. Start Date: 12/20/20 Status: Ordered Miconazole 2% Topical Ointment 1 applicator, Topically, 2 times a day, Apply to groind and buttocks as per wound care instructions, 0 Refills, Maintenance, Ointment Start Date: 12/20/20 Status: Ordered Multivitamin 1 tablet, By Mouth, Daily, 0 Refills, Maintenance Start Date: 01/19/12 Status: Ordered NovoLOG 100 units/mL injectable solution INJECT 15 ML SUBCUTANEOUSLY THREE TIMES DAILY BEFORE MEALS Start Date: 12/14/20 Status: Ordered omeprazole 20 mg oral enteric coated capsule 1 capsule = 20 mg, By Mouth, Daily, Maintenance, 08/09/18 17:08:34 EDT, EC Capsule Start Date: 08/09/18 Status: Ordered oxyCODONE 5 mg oral tablet 5 mg, 1, tablet, By Mouth, Every 6 hours, PRN, # 20 tablet, Refills 0, Tot. Refills 0, Acute 12/27/20 23:56:00 EDT, Pain , Severe, 12/20/20 8:31:00 EDT, Print Requisition, Partial fill upon patient request if the prescription is for a schedule II opio... Start Date: 12/20/20 Stop Date: 12/27/20 Status: Ordered ProAir HFA 90 mcg/inh inhalation aerosol with adapter 2, puffs, Inhalation, Every 4 hours, PRN, Maintenance, 09/26/19 15:06:00 EDT, Aerosol Start Date: 09/26/19 Status: Ordered saccharomyces boulardii lyo 250 mg oral capsule 1 capsule = 250 mg, By Mouth, 2 times a day, 0 Refills, Maintenance, 12/20/20 8:31:00 EDT, Capsule,Partial fill upon patient request if the prescription is for a schedule II opioid drug. Start Date: 12/20/20 Status: Ordered simvastatin 20 mg oral tablet 1 tablet = 20 mg, By Mouth, Daily at bedtime, 0 Refills, Maintenance Start Date: 04/20/12 Status: Ordered Vitamin B1 100 mg oral tablet 100 mg, 1, tablet, By Mouth, Daily, Maintenance, 08/09/18 17:08:29 EDT Start Date: 08/09/18 Status: Ordered Zinc Oxide 40% Paste 1 applicator, Topically, 4 times a day, 0 Refills, Maintenance, 12/20/20 8:31:00 EDT, Paste, Partial fill upon patient request if the prescription is for a schedule II opioid drug. Start Date: 12/20/20 Status: Ordered Problem List Condition Effective Dates [...] Type Response Smoking Status Cigars or pipes asnty y within last 30 days;Former smoker, quit more than 30 days ago; Type: Cigarettes; Type: Cigars; Total pack years: 120; entered on: 08/09/18 Sex Male
--- OUTSIDE RECORDS SUMMARY | 2022-08-11 02:35 | XMS_ITS | Continuity of Care Document ---
Author Name Unknown Organization [facility] Address [address] [place] [address]- Care Team Providers Care Truck Repair Supervisor Name Role Phone Ulysses UMAÑA, Fredy العلي Primary Care Physician [phone] Encounter [facility] [place] Date(s): 10/20/19 - 11/19/19 [facility] [address] [place] [address]- [facility] Attending Physician: Rainer Ram Admitting Physician: Rainer [...] vaccine 02/18/11 Given 1Result Comment: LOT # [id number] EXP VIS 12-18-08 Medications acetaminophen 325 mg [...]
--- OUTSIDE RECORDS SUMMARY | 2022-08-11 02:35 | XMS_ITS | Continuity of Care Document ---
Author Name Unknown Organization [facility] ter Address [address] [place] [address]- Care Team Providers Care Sleep Medicine Physician Name Role Phone Name Jaylen UMAÑA Primary Care Physician Encounter [facility] [place] R [id number] Date(s): 12/14/20 - 12/20/[address] [address]- Encounter Diagnosis Alcohol intoxication(Final) - 12/14/20 Discharge Disposition: A-D/C Home Attending Physician: Gary Hill MD Admitting Physician: Vicenta Marquis MD Referring Physician: Not on Staff, Referring [...] vaccine 02/18/11 Given 1Result Comment: LOT # [id number] EXP VIS 12-18-08 Medications acamprosate 333 mg oral delayed release tablet 2 tablet = 666 mg, By Mouth, 3 times a day, # 180 tablet, 0 Refills, Maintenance, 12/20/20 8:52:00 EDT, EC Tablet, Partial fill upon patient request if the prescription is for a schedule II opioid drug. Start Date: 12/20/20 Status: Ordered acetaminophen 325 mg oral tablet 975 mg, Tablet, By Mouth, 12/20/20 9:00:00 EDT, Stop date 12/20/20 9:00:00 EDT Start Date: 12/20/20 Stop Date: 12/20/20 Status: Completed acetaminophen 325 mg oral tablet 975 mg, [...] Status: Ordered gabapentin 300 mg oral capsule 600 mg, Capsule, By Mouth, 12/20/20 9:00:00 EDT Start Date: 12/20/20 Stop Date: 12/20/20 Status: Completed gabapentin 300 mg oral capsule 2 capsule [...] oxyCODONE 5 mg oral tablet 5 mg, Tablet, By Mouth, Every 6 hours, PRN for Pain , Severe, Routine, 12/20/20 8:29:00 EDT Start Date: 12/20/20 Stop Date: 12/21/20 Status: Discontinued oxyCODONE 5 mg oral tablet 5 mg, [...] atheros clerosis of arteries of extremities(Confirmed) Active Results Orders for Microbiology Reports Name Date Stool Culture (STOOL CULTURE) 12/15/20 Blood Culture #2 (BLOOD CULTURE 2) 1 Blood Culture (BLOOD CULTURE) 12/14/20 Microbiology Reports TEST:Stool Culture STATUS:Auth (Verified) BODY SITE: SOURCE:STOOL COLLECTED DATE/TIME:12/15/20 3:30 AM Stool Culture SPECIMEN DESCRIPTION : STOOL NOT IN [place] OCTAVIA PRESERVATIVE SPECIAL REQUESTS : NONE CULTURE : SPECIMEN NOT RECEIVED IN PARA-[facility]ARSH[facility] TRANSPORT MEDIA, UNABLE TO TEST FOR SHIGA TOXIN. CONTACT [facility] FOR COLLECTION AND TRANSPORT INSTRUCTION AND SUPPLIES NO SALMONELLA, SHIGELLA, CAMPYLOBACTER, AEROMONAS OR E.COLI O157:H7 ISOLATED. REPORT STATUS : FINAL 12/17/2020 TEST:Blood Culture, Second Order STATUS:Auth (Verified) BODY SITE: SOURCE:Blood COLLECTED DATE/TIME:12/14/20 10:15 PM Blood Culture, Second Order SPECIMEN DESCRIPTION : BLOOD R LOWER ARM SPECIAL REQUESTS : NONE CULTURE : NO GROWTH 5 DAYS. REPORT STATUS : FINAL 12/19/2020 TEST:Blood Culture STATUS:Auth (Verified) BODY SITE: SOURCE:Blood COLLECTED DATE/TIME:12/14/20 10:13 PM Blood Culture SPECIMEN DESCRIPTION : BLOOD R ARM SPECIAL REQUESTS : NONE CULTURE : NO GROWTH 5 DAYS. REPORT STATUS : FINAL 12/19/2020 Radiology Reports * Exam Date Time Procedure Performing Provider Status 12/13/20 11:54 PM Chest Portable Denny Moonian; Auth ( Verified) Notes: (Chest Portable) Reason For Exam: Shortness of Breath RESULT: Chest Portable Chest Portable Reason: Shortness of Breath; Clinical Question(s): CHF COMPARISON: 09/12/2019 FINDINGS: LINES AND TUBES: None. LUNGS AND PLEURA: Clear lungs. Normal pulmonary vascularity. No pleural effusion. No pneumothorax. HEART, MEDIASTINUM AND AYESHA: Heart is normal in size. Normal upper mediastinal and hilar contour. BONES AND SOFT TISSUES: No acute abnormality. Right shoulder arthroplasty. IMPRESSION: No acute abnormality. WSN: [id number] Ordering Physician: Santi Pablo Dictated By: Elvin Moreira DO Dictated Date/Time: 12/13/20 11:56 p Reviewed By: Elvin Moreira DO Signed By: Elvin Moreira DO Signed Date/Time: 12/13/20 11:56 pm Transcribed By: ОЛЕГ Transcribed Date/Time: 12/13/20 11:55 pm Vital Signs Most recent to oldest [Reference Range]: 1 2 3 4 Height 172 cm (12/20/20 8:01 AM) 172 cm (12/14/20 6:26 PM) Weight 110 kg (12/18/20 2:49 PM) 102.2 kg (12/14/20 6:26 PM) Oxygen Saturation [94-100 %] 95 % (12/20/20 8:01 AM) 94 % (12/19/20 9:00 PM) 93 % *L* (12/19/20 3:00 PM) Pulse Rate [55-90 bpm] 73 bpm (12/20/20 8:01 AM) 66 bpm (12/20/20 3:48 AM) 86 bpm (12/19/20 9:00 PM) Body Mass Index [18.5-24.99] 34.55 *>HHI* (12/14/20 6:26 PM) Blood Pressure [90-138/55-84 mm Hg] 138/79mm Hg (12/20/20 8:01 AM) 122/56mm Hg (12/20/20 3:48 AM) 112/48mm Hg (12/19/20 9:00 PM) Respiratory Rate [16-30 br/min] 16 br/min (12/20/20 10:48 AM) 16 br/min (12/20/20 9:48 AM) 16 br/min (12/20/20 8:58 AM) 16 br/min (12/20/20 8:58 AM) Temperature [96.8-100.4 DegF] 98 DegF (12/20/20 8:01 AM) 98.6 DegF (12/19/20 9:00 PM) 98.7 DegF (12/19/20 3:00 PM) Liters per Minute 5 L/min (12/19/20 6:00 AM) 5 L/min (12/18/20 11:00 PM) 5 L/min (12/18/20 3:00 PM) Mode of Delivery (Oxygen) Room air (12/20/20 8:01 AM) Room air (12/19/20 9:00 PM) Room air (12/19/20 3:00 PM) Blood pressure sites Arm, right (12/20/20 8:01 AM) Arm, right (12/17/20 8:00 PM) Arm, left (12/15/20 10:00 AM) Temperature Route Oral (12/20/20 8:01 AM) Oral (12/19/20 9:00 PM) Oral (12/19/20 3:00 PM) Dry Weight 102.2 kg (12/14/20 6:26 PM) Weight Obtained Via Bed scale (12/18/20 2:49 PM) Social History Social History Type Response Smoking Status Cigars or pipes santy y within last 30 days;Former smoker, quit more than 30 days ago; Type: Cigarettes; Type: Cigars; Total pack years: 120; entered on: 08/09/18 Sex Male
--- OUTSIDE RECORDS SUMMARY | 2022-08-11 02:35 | XMS_ITS | Continuity of Care Document ---
Author Name Unknown Organization [facility] ter Address [address] [place] [id number]- Care Team Providers Care Size Marker Name Role Phone Name Jaylen UMAÑA Primary Care Physician [place] [facility] [place] 10/21/18 - 07/05/[address] [address]- [facility] Attending Physician: Gerardo Wilks MD Admitting Physician: Gerardo Wilks MD Allergies, Adverse Reactions, Alerts Substance Reaction Severity Status NKA Active Immunizations Given and Recorded Vaccine Date Status Refusal Reason influenza virus vaccine, inactivated 02/16/12 Give n influenza virus vaccine, inactivated 02/18/11 Give n influenza virus vaccine, inactivated 03/17/10 Give n influenza virus vaccine, inactivated 1 02/16/09 Gi phoebe pneumococcal 23-valent vaccine 02/18/11 Given 1Result Comment: LOT # [id number] EXP VIS 12-18-08 Medications Albuterol Every 4 hours, PRN Wheezing/Shortness of Breath, 0 Refills, Maintenance, 04/15/15 10:46:20 Start Date: 04/15/15 Status: Ordered albuterol 0.083% inhalation solution 3 mL = 2.5 mg, Inhalation, Every 4 hours, PRN Wheezing/Shortness of Breath, 0 Refills, Maintenance,04/15/15 10:48:21 Start Date: 04/15/15 Status: Ordered Artificial Tears preserved solution 1 drops, Eyes, Both, 2 times a day, PRN for dry eyes, Maintenance, 08/09/18 17:08:32 EDT, Solution Start Date: 08/09/18 Status: Ordered aspirin 81 mg oral tablet 1 tablet = 81 mg, By Mouth, Daily, 0 Refills, Maintenance, 03/27/14 13:20:07 Start Date: 03/27/14 Status: Ordered busPIRone 5 mg oral tablet 5 mg, 1, tablet, By Mouth, 2 times a day, Refills 0, Maintenance, 01/25/18 9:12:26 EDT Start Date: 01/25/18 Status: Ordered EPA Fish Oil 1000 mg oral capsule 1 capsule = 1,000 mg, By Mouth, Daily, 0 Refills, Maintenance, 03/27/14 13:24:24 EST Start Date: 03/27/14 Status: Ordered folic acid 1 mg oral tablet 1 mg, 1, tablet, By Mouth, Daily, Maintenance, 08/09/18 17:08:26 EDT Start Date: 08/09/18 Status: Ordered gabapentin 300 mg oral capsule 2 capsule = 600 mg, By Mouth, 3 times a day, # 270 capsule, 0 Refills, Maintenance, 11/17/12 12:47:50, Capsule Start Date: 11/17/12 Status: Ordered Golytely - oral powder for reconstitution 240 mL, By Mouth, Every 10 minutes, # 1 each, 0 Refills, Maintenance, 10/21/18 11:03:00 EDT, REC Powder, 240 mL By Mouth Every 10 minutes Start Date: 10/21/18 Status: Ordered Insulin Glargine = 40 units, Subcutaneous Injection, Daily at bedtime, 0 Refills, Maintenance, 09/21/13 17:20:40 EDT Start Date: 09/21/13 Status: Ordered lisinopril 5 mg oral tablet 1 tablet = 5 mg, By Mouth, Daily, # 30 tablet, 0 Refills, Maintenance, 12/08/13 22:49:48, Tablet Start Date: 12/08/13 Status: Ordered Metoprolol Tartrate 25 mg oral tablet 1 tablet = 25 mg, By Mouth, 2 times a day, # 180 tablet, 0 Refills, Maintenance, 12/08/13 22:49:16,Tablet Start Date: 12/08/13 Status: Ordered mirtazapine 30 mg oral tablet 1 tablet = 30 mg, By Mouth, Daily at bedtime, 0 Refills, Maintenance, 10/21/18 10:03:56 EDT Start Date: 10/21/18 Status: Ordered Multivitamin 1 tablet, By Mouth, Daily, 0 Refills, Maintenance Start Date: 01/19/12 Status: Ordered NovoLog 100 units/mL subcutaneous solution 15 units, Subcutaneous Injection, 3 times a day before meals, 0 Refills, Maintenance, 07/02/13 1:25:51 Start Date: 07/02/13 Status: Ordered omeprazole 20 mg oral enteric coated capsule 1 capsule = 20 mg, By Mouth, Daily, Maintenance, 08/09/18 17:08:34 EDT, EC Capsule Start Date: 08/09/18 Status: Ordered Restasis 1 drops, Eyes, Both, Every 12 hours, 0 Refills, Maintenance, 01/25/18 9:11:18 EDT Start Date: 01/25/18 Status: Ordered simvastatin 20 mg oral tablet 1 tablet = 20 mg, By Mouth, Daily at bedtime, 0 Refills, Maintenance Start Date: 04/20/12 Status: Ordered Vitamin B1 100 mg oral tablet 100 mg, 1, tablet, By Mouth, Daily, Maintenance, 08/09/18 17:08:29 EDT Start Date: 08/09/18 Status: Ordered Zofran 4 mg oral tablet 1 tablet = 4 mg, By Mouth, Every 8 hours, # 21 tablet, 0 Refills, Maintenance, 08/11/18 10:14:46 EDT, Tablet Start Date: 08/11/18 Stop Date: 08/18/18 Status: Ordered Zofran ODT 4 mg oral tablet, disintegrating 1 tablet = 4 mg, By Mouth, 3 times a day, PRN Nausea, # 90 Doses, 1 Refills, Maintenance, 04/03/19 9:49:00 EST Start Date: 04/03/19 Status: Ordered Problem List Condition Effective Dates [...]
--- OUTSIDE RECORDS SUMMARY | 2022-08-11 02:36 | XMS_ITS | Continuity of Care Document ---
Author Name Unknown Organization [facility] ter Address [address] [place] [id number]- Care Team Providers Care Parts Sales Representative Name Role Phone Name Jaylen UMAÑA Primary Care Physician [phone] Encounter [facility] Date(s): 08/24/19 - 09/19/[address] [address]- [facility] Encounter Diagnosis Humeral fracture(Final) - 08/24/19 Discharge Disposition: A-Transfer SNF Attending Physician: Eunice Graham MD Admitting Physician: Maximino Bah MD Referring Physician: Not on Staff, Referring [...] vaccine 02/18/11 Given 1Result Comment: LOT # [id number] EXP VIS 12-18-08 Medications acetaminophen 325 mg oral tablet 650 mg, By Mouth, Every 4 hours, PRN, Temperature Greater than 100.5, Refills 0, Maintenance, Headache Pain , Mild, 09/18/19 11:13:00 EDT Start Date: 09/18/19 Status: Ordered albuterol 90 mcg/inh inhalation powder 2 puffs, Inhalation, Every 6 hours, as directed 15 minutes before exercise, # 1 each, 0 Refills, Soft Stop, 09/19/19 11:53:00 EDT, Powder Start Date: 09/19/19 Status: Ordered Artificial Tears preserved solution 1 [...] 9:12:26 EDT Start Date: 01/25/18 Status: Ordered Combivent Respimat 20 mcg-100 mcg/inh inhalation aerosol 1 puffs, Inhalation, 4 times a day, # 4 Gm, 0 Refills, Maintenance, 09/19/19 11:54:00 EDT, Aerosol Start Date: 09/19/19 Status: Ordered Eliquis 5 mg oral tablet [...] 17:20:40 EDT Start Date: 09/21/13 Status: Ordered mirtazapine 30 mg oral tablet 1 tablet = 30 mg, By Mouth, Daily at bedtime, 0 Refills, Maintenance, 10/21/18 10:03:56 EDT Start Date: 10/21/18 Status: Ordered morphine 15 mg oral tablet, immediate release 1 tablet = 15 mg, By Mouth, Every 6 hours, PRN as needed for pain, for 3 days, # 10 tablet, 0 Refills, Acute 09/22/19 14:05:00 EDT, 09/19/19 14:05:00 EDT, Tablet, Partial fill upon patient request Start Date: 09/19/19 Stop Date: 09/22/19 Status: Ordered Multivitamin 1 tablet, By Mouth, [...] 11:13:00 EDT Start Date: 09/18/19 Status: Ordered vancomycin 1.5 g/250 mL-NaCl 0.9% intravenous solution See Instructions, vanco 1500 mg daily for 4 weeks, # 30 each, 0 Refills, Maintenance, 09/18/19 11:13:00 EDT Start Date: 09/18/19 Status: Ordered Vitamin B1 100 mg oral [...] for Microbiology Reports Name Date Blood Culture 09/14/19 Blood Culture 09/13/19 Blood Culture 09/12/19 Blood Culture #2 09/12/19 Microbiology Reports TEST:Blood Culture STATUS:Auth (Verified) BODY SITE: SOURCE:Blood COLLECTED DATE/TIME:09/14/19 5:37 AM Blood Culture SPECIMEN DESCRIPTION : BLOOD L SPECIAL REQUESTS : NONE CULTURE : NO GROWTH 5 DAYS. REPORT STATUS : FINAL 09/19/2019 TEST:Blood Culture STATUS:Auth (Verified) BODY SITE: SOURCE:Blood COLLECTED DATE/TIME:09/13/19 3:13 PM Blood Culture SPECIMEN DESCRIPTION : BLOOD LEFT HAND SPECIAL REQUESTS : NONE CULTURE : NO GROWTH 5 DAYS. REPORT STATUS : FINAL 09/18/2019 TEST:Blood Culture STATUS:Auth (Verified) BODY SITE: SOURCE:Blood COLLECTED DATE/TIME:09/12/19 6:01 AM Blood Culture SPECIMEN DESCRIPTION : BLOOD LA SPECIAL REQUESTS : CRITICAL VALUE CALLED AND VERIFIED BY READBACK FOR: GRAM POSITIVE COCCI TO [id number] ON [id number] AT 212 BY [id number] CULTURE : STAPHYLOCOCCUS AUREUS, METHICILLIN RESISTANT. METHICILLIN RESISTANT STAPH AUREUS SHOULD BE CONSIDERED CLINICALLY RESISTANT TO ALL BETA-LACTAMS. FOR SUSCEPTIBILITY RESULT REFER TO BLOOD CULTURE Result reported to [facility]. S. aureus was identified by multi-plex PCR. Mec A detected. Due to the presence of the mecA gene, this isolate should be considered resistant to methicillin (MRSA). REPORT STATUS : FINAL 09/15/2019 TEST:Blood Culture, Second Order STATUS:Auth (Verified) BODY SITE: SOURCE:Blood COLLECTED DATE/TIME:09/12/19 6:01 AM Blood Culture, Second Order SPECIMEN DESCRIPTION : BLOOD L HAND SPECIAL REQUESTS : CRITICAL VALUE CALLED AND VERIFIED BY READBACK FOR: GRAM POSITIVE COCCI TO [id number] ON [id number] AT 310 BY [id number] CULTURE : STAPHYLOCOCCUS AUREUS, METHICILLIN RESISTANT. METHICILLIN RESISTANT STAPH AUREUS SHOULD BE CONSIDERED CLINICALLY RESISTANT TO ALL BETA-LACTAMS. Result reported to [facility]. REPORT STATUS : FINAL 09/15/2019 ORGANISM STAPHYLOCOCCUS AUREUS, METHICILLIN RESISTANT. ORGANISM METHICILLIN RESISTANT STAPH AUREUS SHOULD BE ORGANISM CONSIDERED CLINICALLY RESISTANT TO ALL ORGANISM BETA-LACTAMS. Result reported to [facility]. METHOD MIN. INHIB. CONC. (MCG/ML) CIPROFLOXACIN RESISTANT CLINDAMYCIN RESISTANT DAPTOMYCIN SUSCEPTIBLE DAPTOMYCIN DAPTOMYCIN JUDITH IS <0.5 ERYTHROMYCIN RESISTANT INDUCIBLE CLINDAMYCI POSITIVE LEVOFLOXACIN RESISTANT LINEZOLID SUSCEPTIBLE OXACILLIN RESISTANT RIFAMPIN SUSCEPTIBLE RIFAMPIN RIFAMPIN SHOULD NOT BE USED ALONE FOR ANTIMICROBIAL RIFAMPIN THERAPY. TETRACYCLINE SUSCEPTIBLE TRIMETH/SULFAMETHOX SUSCEPTIBLE VANCOMYCIN SUSCEPTIBLE VANCOMYCIN VANCOMYCIN JUDITH IS 1 Radiology Reports (Most Recent Ten) * Exam Date Time Procedure Performing Provider Status 09/18/19 12:58 PM Humerus Min 2 Views Right Christine Ocampo; Auth (Verified) Notes: (Humerus Min 2 Views Right) Reason For Exam: Follow-Up Fracture RESULT: Humerus Min 2 Views Right Elbow Min 3 Views Right, Humerus Min 2 Views Right, 3 views Refer to EMR; Reason: Follow-Up Fracture; Clinical Question(s): Position Fixation; Hx of Present Illness: pt is coming in as a transfer from [place], + femur fx. lives [place] apartment, fell >24 hours ago, neighbor heard him yellig.; Other Objective Findings: pt is awake and alert, no distress,RUE w dressing in place, LUE w eccymosis. }} [email or web address] uc1 pard f0 fs20 pt is awake and alert, no di COMPARISON: 08/24/2019 FINDINGS: There is linear lucency seen in the distal humerus consistent with persistent fracture lines. The patient is status post plate and screw fixation. These are most likely related to previous surgery. Damian not see a definite acute fracture. No complication of right humeral arthroplasty. IMPRESSION: Persistent fracture line visualized in the distal humerus with generally good anatomic alignment status post internal fixation. WSN: [id number] Ordering Physician: Марина Ivy Dictated By: Víctor Sanchez MD Dictated Date/Time: 09/18/19 1:15 pm Reviewed By: Víctor Sanchez MD Signed By: Víctor Sanchez MD Signed Date/Time: 09/18/19 1:15 pm Transcribed By: ОЛЕГ Transcribed Date/Time: 09/18/19 1:13 pm * Exam Date Time Procedure Performing Provider Status 09/18/19 12:58 PM Elbow Min 3 Views Right Uyen Ocampo; Auth (Verified) Notes: (Elbow Min 3 Views Right) Reason For Exam: Follow-Up Fracture RESULT: Elbow Min 3 Views Right Elbow Min 3 Views Right, Humerus Min 2 Views Right, 3 views Refer to EMR; Reason: Follow-Up Fracture; Clinical Question(s): Position Fixation; Hx of Present Illness: [facility]. lives [place] apartment, fell >24 hours ago, neighbor heard him yellig.; Other Objective Findings: pt is awake and alert, no distress,RUE w dressing in place, LUE w eccymosis. }} [email or web address] uc1 pard f0 fs20 pt is awake and alert, no di COMPARISON: 08/24/2019 FINDINGS: There is linear lucency seen in the distal humerus consistent with persistent fracture lines. The patient is status post plate and screw fixation. These are most likely related to previous surgery. Damian not see a definite acute fracture. No complication of right humeral arthroplasty. IMPRESSION: Persistent fracture line visualized in the distal humerus with generally good anatomic alignment status post internal fixation. WSN: [id number] Ordering Physician: Марина Ivy Dictated By: Víctor Sanchez MD Dictated Date/Time: 09/18/19 1:15 pm Reviewed By: Víctor Sanchez MD Signed By: Víctor Sanchez MD Signed Date/Time: 09/18/19 1:15 pm Transcribed By: ОЛЕГ Transcribed Date/Time: 09/18/19 1:13 pm * Exam Date Time Procedure Performing Provider Status 09/12/19 4:11 AM Chest Portable Adolfo Moon; Auth (V erified) Notes: (Chest Portable) Reason For Exam: Fever RESULT: Chest Portable Chest Portable AP upright 3:51 AM 09/27/2019 Reason: Fever; Clinical Question(s): Pneumonia; Hx of Present Illness: pt is coming in as a transfer from [place], + femur fx. lives [place] apartment, fell >24 hours ago, neighbor heard him yellig.; COMPARISON: 08/27/2019. FINDINGS: LINES AND TUBES: None. LUNGS AND PLEURA: Clear lungs. Normal pulmonary vascularity. No pleural effusion. No pneumothorax, although lung apices partially obscured by patient's chin. HEART, MEDIASTINUM AND AYESHA: Heart is normal in size. Normal mediastinal and hilar contour. BONES AND SOFT TISSUES: No acute abnormality. Chronic deformity of the posterolateral left ninth rib is unchanged. Partially imaged right humeral head prosthesis. IMPRESSION: No radiographic evidence of an acute cardiopulmonary process. I have personally reviewed the images and I agree with this report. WSN: [id number] Ordering Physician: Lynda Em Dictated By: Jamir Ma MD Dictated Date/Time: 09/12/19 8:01 am Reviewed By: Tommie Redmond MD Signed By: Tommie Redmond MD Signed Date/Time: 09/12/19 8:06 am Transcribed By: ОЛЕГ Transcribed Date/Time: 09/12/19 6:41 am * Exam Date Time Procedure Performing Provider Status 08/27/19 9:07 PM Chest Portable Rob Conroy; Auth (Verified) Notes: (Chest Portable) Reason For Exam: Incease oxygen requirement.;Other: RESULT: Chest Portable Chest Portable Refer to EMR; Reason: Other:; Incease oxygen requirement.; Clinical Question(s): Other:; aspirationpneumonia, atelectasis, fluid overload.; Hx of Present Illness: pt is coming in as a transfer from [place], + femur fx. lives [place] apartment, fell >24 hours ago, neighbor heard him yellig.; Other Objective Findings: pt is awake and alert, no distress, RUE w dressing in place, LUE w eccymosis.}} COMPARISON: X-ray from 08/25/2019. FINDINGS: LINES AND TUBES: External lines and/or lead wires overlie the right lung base. LUNGS AND PLEURA: Clear lungs. Normal pulmonary vascularity. No pleural effusion. No pneumothorax. HEART, MEDIASTINUM AND AYESHA: Heart is normal in size. Normal mediastinal and hilar contour. BONES AND SOFT TISSUES: No acute abnormality. Right shoulder arthroplasty hardware appears intact. IMPRESSION: No acute cardiopulmonary pathology. No pneumonia or CHF WSN: [id number] Ordering Physician: Zeina Dubois Dictated By: Rahul Ponce MD Dictated Date/Time: 08/27/19 9:14 pm Reviewed By: Rahul Ponce MD Signed By: Rahul Ponce MD Signed Date/Time: 08/27/19 9:14 pm Transcribed By: ОЛЕГ Transcribed Date/Time: 08/27/19 9:13 pm * Exam Date Time Procedure Performing Provider Status 08/25/19 7:10 PM Chest Portable Deloris Mccauley; Auth (Verified) Notes: (Chest Portable) Reason For Exam: Shortness of Breath RESULT: Chest Portable Chest Portable AP upright at 6:34 PM INDICATION: Shortness of Breath; Clinical Question(s): Postop; Hx of Present Illness: pt is coming in as a transfer from [place], + femur fx. COMPARISON: Earlier today FINDINGS: LINES AND TUBES: Left internal jugular central venous catheter with the tip projecting in the left subclavian vein. LUNGS AND PLEURA: Clear lungs. Normal pulmonary vascularity. No pleural effusion. No pneumothorax. HEART, MEDIASTINUM AND AYESHA: Heart is normal in size. Normal mediastinal and hilar contour. BONES AND SOFT TISSUES: No acute abnormality. IMPRESSION: Left internal jugular central venous catheter tip projects in the region of the left subclavian vein rather than being directed towards the SVC. WSN: [id number] Ordering Physician: Duane Rubio MD Dictated By: Rahul Vazquez MD Dictated Date/Time: 08/25/19 7:14 pm Reviewed By: Rahul Vazquez MD Signed By: Rahul Vazquez MD Signed Date/Time: 08/25/19 7:14 pm Transcribed By: ОЛЕГ Transcribed Date/Time: 08/25/19 7:11 pm * Exam Date Time Procedure Performing Provider Status 08/25/19 3:13 PM C-Arm < 1 Hour Vandana Barnes; Auth (Verified) Notes: (C-Arm < 1 Hour) Reason For Exam: right elbow fracture RESULT: C-Arm < 1 Hour Elbow Min 3 Views Right, C-Arm < 1 Hour, 3 views Refer to EMR; Reason: comminuted supracondylar fracture of the right humerus. Special Instructions:FT 26sec TT 45min; Hx of Present Illness: pt is coming in as a transfer from [place], + femur fx. lives [place] apartment, fell >24 hours ago, neighbor heard him yellig.; Other Objective Findings:pt is awake and alert, no distress, RUE w dressing in place, LUE w ecchymosis. }} [email or web address] uc1 pard f0 fs20 pt is awake and alert, no COMPARISON: Right elbow radiographs of 08/24/2019. FINDINGS: Technologist time 45 minutes. Fluoroscopy time 26 seconds. Cumulative radiation dose 3.05 mGy. 7 images were obtained. Images demonstrate ORIF of a comminuted fracture of the distal humerus using medial and the lateralside plates with multiple screws 3 fixation screws extend completely across the condylar region. Inaddition, there has been ORIF in the proximal ulna using a plate and multiple screws. Fragments appear to be in grossly anatomic alignment with evaluation limited by C-arm technique and extensive hardware. No arthritic changes. Soft tissues are unremarkable. IMPRESSION: Status post ORIF of a comminuted fracture of the distal humerus and a fracture of the olecranon process of the ulna. WSN: [id number] Ordering Physician: Estelle Fraser Dictated By: Tommie Redmond MD Dictated Date/Time: 08/25/19 3:29 pm Reviewed By: Tommie Redmond MD Signed By: Tommie Redmond MD Signed Date/Time: 08/25/19 3:29 pm Transcribed By: ОЛЕГ Transcribed Date/Time: 08/25/19 3:23 pm * Exam Date Time Procedure Performing Provider Status 08/25/19 3:13 PM Elbow Min 3 Views Right Ekenbarger , K risty L; Auth (Verified) Notes: (Elbow Min 3 Views Right) Reason For Exam: right elbow fracture RESULT: Elbow Min 3 Views Right Elbow Min 3 Views Right, C-Arm < 1 Hour, 3 views Refer to EMR; Reason: comminuted supracondylar fracture of the right humerus. Special Instructions:FT 26sec TT 45min; Hx of Present Illness: pt is coming in as a transfer from [place], + femur fx. lives [place], fell >24 hours ago, neighbor heard him yellig.; Other Objective Findings:pt is awake and alert, no distress, RUE w dressing in place, LUE w ecchymosis. }} [email or web address] uc1 pard f0 fs20 pt is awake and alert, no COMPARISON: Right elbow radiographs of 08/24/2019. FINDINGS: Technologist time 45 minutes. Fluoroscopy time 26 seconds. Cumulative radiation dose 3.05 mGy. 7 images were obtained. Images demonstrate ORIF of a comminuted fracture of the distal humerus using medial and the lateralside plates with multiple screws 3 fixation screws extend completely across the condylar region. Inaddition, there has been ORIF in the proximal ulna using a plate and multiple screws. Fragments appear to be in grossly anatomic alignment with evaluation limited by C-arm technique and extensive hardware. No arthritic changes. Soft tissues are unremarkable. IMPRESSION: Status post ORIF of a comminuted fracture of the distal humerus and a fracture of the olecranon process of the ulna. WSN: [id number] Ordering Physician: Estelle Fraser Dictated By: Tommie Redmond MD Dictated Date/Time: 08/25/19 3:29 pm Reviewed By: Tommie Redmond MD Signed By: Tommie Redmond MD Signed Date/Time: 08/25/19 3:29 pm Transcribed By: ОЛЕГ Transcribed Date/Time: 08/25/19 3:23 pm * Exam Date Time Procedure Performing Provider Status 08/25/19 8:54 AM Chest Portable Dalton Saeed (Verified) Notes: (Chest Portable) Reason For Exam: Line Placement RESULT: Chest Portable Chest Portable Reason: Line Placement; Clinical Question(s): Line Placement; Hx of Present Illness: pt is coming in as a transfer from [place], + femur fx COMPARISON: 08/24/2019, 08/08/2018 FINDINGS: LINES AND TUBES: Left internal jugular central venous catheter previously with tip overlying axilla and subclavian vein has been slightly retracted. Distal aspect of catheter now appears folded upon itself with tip overlying left lung apex at expected region of left brachiocephalic and subclavian vein junction. LUNGS AND PLEURA: No pneumothorax. No pleural effusion. The lungs are clear. Pulmonary vascularity is normal. HEART, MEDIASTINUM AND AYESHA: Heart is normal in size. Aorta is calcified. BONES AND SOFT TISSUES: No acute bony abnormalities. Partially imaged right humeral head prosthesis again demonstrated. IMPRESSION: Left internal jugular central venous catheter slightly retracted but now with distal aspect folded upon itself and tip overlying superior left lung apex in expected region of left brachiocephalic andsubclavian vein junction. Repositioning recommended. Clear lungs. WSN: [id number] Ordering Physician: Cherie Pineda Dictated By: Jamir Perez MD Dictated Date/Time: 08/25/19 9:10 am Reviewed By: Jamir Perez MD Signed By: Jamir Perez MD Signed Date/Time: 08/25/19 9:10 am Transcribed By: ОЛЕГ Transcribed Date/Time: 08/25/19 8:55 am * Exam Date Time Procedure Performing Provider Status 08/24/19 9:10 PM Chest Portable Deloris Mccauley; Auth (Verified) Notes: (Chest Portable) Reason For Exam: line repositioning retracted 2 cm;Other: RESULT: Chest Portable Chest Portable , AP supine Refer to EMR; Reason: line repositioning retracted 2 cm; Clinical Question(s): Other:; Hx of Present Illness: pt is coming in as a transfer from [place], + femur fx. lives [place] apartment, fell >24 hours ago, neighbor heard him yellig.; Other Objective Findings: pt is awake and alert, no distress, RUE w dressing in place, LUE w eccymosis. COMPARISON: Previous examination performed at 3:58 PM on the same day. FINDINGS: Patient is slightly rotated toward the right. LINES AND TUBES: Unchanged left IJV central catheter terminating over the left axilla. LUNGS AND PLEURA: Clear lungs. Normal pulmonary vascularity. No pleural effusion. No pneumothorax. HEART, MEDIASTINUM AND AYESHA: Unchanged. BONES AND SOFT TISSUES: Status post right shoulder arthroplasty. Degenerative changes of the shoulders. Multilevel degenerative changes of the spine. No acute abnormality. IMPRESSION: Unchanged exam. Left IJV central catheter again terminates at the left axilla. Consider repositioning/withdrawal. I have personally reviewed the images and I agree with this report. WSN: [id number] Ordering Physician: Mamta Castaneda Dictated By: Armando Astudillo MD Dictated Date/Time: 08/24/19 9:29 pm Reviewed By: Rahul Powers MD Signed By: Rahul Powers MD Signed Date/Time: 08/24/19 9:34 pm Transcribed By: ОЛЕГ Transcribed Date/Time: 08/24/19 9:17 pm * Exam Date Time Procedure Performing Provider Status 08/24/19 5:23 PM Humerus Min 2 Views Right Me penny Stoll; Auth (Verified) Notes: (Humerus Min 2 Views Right) Reason For Exam: Trauma RESULT: Humerus Min 2 Views Right Forearm 2 Views Right, Humerus 1 View Right Refer to EMR; Reason: Trauma; Clinical Question(s): Fracture; Hx of Present Illness: pt is coming in as a transfer from [place], + femur fx. lives [place] apartment, fell >24 hours ago, neighbor heard him yellig.; COMPARISON: Right elbow x-ray performed at 3:47 PM on the same day. FINDINGS: Forearm: Immobilizing material has been applied from above the patient's mid arm extending distally to the hands. No fractures are seen within the distal forearm. Normal carpal alignment. Soft tissue swelling adjacent to the elbow. Humerus: Single AP view submitted. No significant change in alignment of a moderately displaced comminuted right humerus supracondylarfracture, although the evaluation is limited by single view. The medial condylar fracture fragment is displaced medially by 12 mm. Tiny ossific density lateral to the radial head concerning for minimally displaced fracture. Prior right shoulder hemiarthroplasty. No evidence of hardware complication. Diffuse soft tissue swelling is seen. There is no radiopaque foreign body. IMPRESSION: 1. Limited examination due to single view of the humerus. 2. Moderately displaced right humerus comminuted supracondylar fracture, not significantly changed since prior study. 3. Possible minimally displaced lateral right radial head fracture. An [employer] message has been communicated via the [employer] system on 08/24/2019 5:33 PM, Message ID [id number]. I have personally reviewed the images and I agree with this report. WSN: [id number] Ordering Physician: Tommie Brooks Dictated By: Armando Astudillo MD Dictated Date/Time: 08/24/19 5:41 pm Reviewed By: Nany Beckford MD Signed By: Nany Beckford MD Signed Date/Time: 08/24/19 5:46 pm Transcribed By: ОЛЕГ Transcribed Date/Time: 08/24/19 5:36 pm Vital Signs Most recent to oldest [Reference Range]: 1 2 3 4 Height 173 cm (09/19/19 7:26 AM) 173 cm (09/18/19 11:24 PM) 173 cm (09/18/19 7:41 PM) Weight 105.4 kg (09/13/19 9:40 AM) 109.8 kg (08/25/19 8:39 PM) 108.4 kg (08/25/19 10:16 AM) Oxygen Saturation [94-100 %] 96 % (09/19/19 7:26 AM) 91 % *L* (09/18/19 11:24 PM) 93 % *L* (09/18/19 7:41 PM) Pulse Rate [55-90 bpm] 85 bpm (09/19/19 7:26 AM) 65 bpm (09/18/19 11: PM) 93 bpm *H* (09/18/19 7:41 PM) Body Mass Index [18.5-24.99] 36.69 *>HHI* (08/25/19 12:33 AM) Blood Pressure [90-138/55-84 mm Hg] 126/65mm Hg (09/19/19 7:26 AM) 126/60mm Hg (09/18/19 11:24 PM) 117/72mm Hg (09/18/19 4:30 PM) Respiratory Rate [16-30 br/min] 18 br/min (09/19/19 1:17 PM) 18 br/min (09/19/19 1:17 PM) 19 br/min (09/19/19 10:00 AM) 19 br/min (09/19/19 10:00 AM) Temperature [96.8-100.4 DegF] 97.4 DegF (09/19/19 7:26 AM) 98.1 DegF (09/18/19 11:24 PM) 98.5 DegF (09/18/19 7:41 PM) Liters per Minute 2 L/min (09/03/19 12:16 AM) 2 L/min (09/02/19 4:18 AM) 2 L/min (09/01/19 11:25 PM) Mode of Delivery (Oxygen) Room air (09/19/19 7:26 AM) Room air (09/18/19 11:24 PM) Room air (09/18/19 7:41 PM) Blood pressure sites Arm, left (09/19/19 7:26 AM) Arm, left (09/18/19 11:24 PM) Arm, left (09/18/19 4:30 PM) Temperature Route Oral (09/19/19 7:26 AM) Oral (09/18/19 11:24 PM) Oral (09/18/19 7:41 PM) Dry Weight 109.8 kg (08/25/19 8:39 PM) 108.4 kg (08/25/19 10:16 AM) 109.8 kg (08/25/19 12:33 AM) Weight Obtained Via Bed scale (09/13/19 9:40 AM) Bed scale (08/25/19 8:39 PM) Standing scale (08/25/19 10:16 AM) Dry Weight Obtained Via Bed scale (08/25/19 8:39 PM) Standing scale (08/25/19 10:16 AM) Social History Social History Type Response Smoking Status Cigars or pipes santy y within last 30 days;Former smoker, quit more than 30 days ago; Type: Cigarettes; Type: Cigars; Total pack years: 120; entered on: 08/09/18 Sex
--- OUTSIDE RECORDS SUMMARY | 2022-08-11 02:36 | XMS_ITS | Continuity of Care Document ---
Author Name Unknown Organization [facility] Address [address] [place] [id number]- Care Team Providers Care Ip Network Architect Name Role Phone Ulysses UMAÑA, Fredy العلي Primary Care Physician Encounter [facility] Date(s): 10/09/19 - 11/19/19 [facility] [address] [place] [address]- [facility] Attending Physician: Sergio Stout MD Admitting Physician: Sergio Stout MD Referring Physician: Adrienne Carballo MD Allergies, Adverse Reactions, Alerts Substance Reaction Severity Status NKA Active Immunizations Given and Recorded Vaccine Date Status Refusal Reason influenza virus vaccine, inactivated 02/16/12 Give n influenza virus vaccine, inactivated 02/18/11 Give n influenza virus vaccine, inactivated 03/17/10 Give n influenza virus vaccine, inactivated 1 02/16/09 Gi phoebe pneumococcal 23-valent vaccine 02/18/11 Given 1Result Comment: LOT # [id number] EXP VIS 12-18-08 Medications acetaminophen 325 mg [...]
--- OUTSIDE RECORDS SUMMARY | 2022-08-11 02:36 | XMS_ITS | Continuity of Care Document ---
Author Name Unknown Organization [facility] Address [address] [place] [id number]- Care Team Providers Care Pulmonary Physical Therapist Name Role Phone Name Jaylen UMAÑA Primary Care Physician Encounter [facility] [place] Date(s): 11/20/20 - 12/20/20 [facility] [address] [place] [phone]- Allergies, Adverse Reactions, Alerts Substance Reaction Severity Status NKA Active Immunizations Given and Recorded Vaccine Date Status Refusal Reason influenza virus vaccine, inactivated 02/16/12 Give n influenza virus vaccine, inactivated 02/18/11 Give n influenza virus vaccine, inactivated 03/17/10 Give n influenza virus vaccine, inactivated 1 02/16/09 Gi phoebe pneumococcal 23-valent vaccine 02/18/11 Given 1Result Comment: LOT # [id number] EXP VIS 12-18-08 Medications acamprosate 333 mg [...]
--- OUTSIDE RECORDS SUMMARY | 2022-08-11 02:36 | XMS_ITS | Continuity of Care Document ---
Author Name Unknown Organization [facility] Address [address] [place] [id number]- Care Team Providers Care Grated Cheese Maker Name Role Phone Name Jaylen UMAÑA Primary Care Physician Encounter [facility] [place] Date(s): 11/25/20 - 12/25/20 [facility] [address] [place] [phone]- [place] Allergies, Adverse Reactions, Alerts Substance Reaction Severity Status NKA Active Immunizations Given and Recorded Vaccine Date Status Refusal Reason influenza virus vaccine, inactivated 02/16/12 Give n influenza virus vaccine, inactivated 02/18/11 Give n influenza virus vaccine, inactivated 03/17/10 Give n influenza virus vaccine, inactivated 1 02/16/09 Gi phoebe pneumococcal 23-valent vaccine 02/18/11 Given 1Result Comment: LOT # [id number] EXP VIS 12-18-08 Medications acamprosate 333 mg [...]
--- OUTSIDE RECORDS SUMMARY | 2022-08-11 02:36 | XMS_ITS | Continuity of Care Document ---
Author Name Unknown Organization [facility] Address [address] [place] [address]- Care Team Providers Care Sloop Captain Name Role Phone Ulysses UMAÑA, Fredy العلي Primary Care Physician [phone] Encounter [facility] [place] Date(s): 10/16/19 - 10/23/19 [facility] [address] [place] [address]- [facility] Attending Physician: Tamera Alegre MD Admitting Physician: Codey UMAÑA, Tamera Allergies, Adverse Reactions, Alerts Substance Reaction Severity Status NKA Active Immunizations Given and Recorded Vaccine Date Status Refusal Reason influenza virus vaccine, inactivated 02/16/12 Give n influenza virus vaccine, inactivated 02/18/11 Give n influenza virus vaccine, inactivated 03/17/10 Give n influenza virus vaccine, inactivated 1 02/16/09 Gi phoebe pneumococcal 23-valent vaccine 02/18/11 Given 1Result Comment: LOT # [id number] EXP VIS 12-18-08 Medications acetaminophen 325 mg [...] atheros clerosis of arteries of extremities(Confirmed) Active Vital Signs Most recent to oldest [Reference Range]: 1 Height 174 cm (10/16/19 3:14 PM) Weight 105 kg (10/16/19 3:14 PM) Oxygen Saturation [94-100 %] 98 % (10/16/19 3:14 PM) Pulse Rate [55-90 bpm] 111 bpm *H* (10/16/19 3:14 PM) Body Mass Index [18.5-24.99] 34.68 *>HHI* (10/16/19 3:14 PM) Weight Obtained Via Patient/family state d (10/16/19 3:14 PM) Social History Social History Type Response Smoking Status Cigars or pipes santy y within last 30 days;Former smoker, quit more than 30 days ago; Type: Cigarettes; Type: Cigars; Total pack years: 120; entered on: 08/09/18 Sex Male
--- NOTE | 2022-08-11 02:50 | PC.NURSE ---
Bilateral AC ultrasound guided #[address] Verduzco[address]
[2022-08-11] MEDS: PHENobarbitaL sodium 130 MG/ML IM ONCE 396 MG IM (03:31)
[2022-08-11] MEDS: Potassium Chloride/H20 10 MEQ/100 ML PIGGYBACK 100 MEQ IV (03:37)
--- NOTE | 2022-08-11 03:42 | PC.NURSE ---
Pt with complaints of pain at left AC site where potassium and Nacl infusing. Site appears infiltrated. ice pack applied per request. fluids and potassium moved to right AC site.
--- NOTE | 2022-08-11 03:47 | PC.NURSE ---
pt now with complaints of pain and swollen to right AC PIV site. fluids and potassium stopped.
[2022-08-11 04:17] LABS: IDNOW Serial# BCCEAD1C
[2022-08-11 04:18] LABS: COVID-19 Test Invalid (Negative)
--- NOTE | 2022-08-11 04:27 | PC.NURSE ---
Dr. Berry at bedside for ultrasound line placement.
--- NOTE | 2022-08-11 04:59 | ED.ALCOHOL ---
HPI - Alcohol General Chief Complaint: ETOH/Substance Use Stated Complaint: alcohol withdrawal Time Seen by Provider: 08/11/22 01:06 Source: patient and EMS Mode of arrival: EMS Limitations: no limitations History of Present Illness HPI narrative: Patient and 66 years old alcoholic with history of anxiety, COPD, diabetes, chronic heart failure, hypertension, obesity been drinking heavy about 1 pt of vodka a day last drink was more than 24 hours ago called the EMS because he been feeling weak unsteady on his feet for last few days getting worse after he stops drinking patient was not very unkept condition when he came been here multiple times for alcohol use and weakness last admission was 07/04/2022 patient states that he has not had food for last 3 days denies any abdominal pain wanted food on arrival refused to go to detox. Feels in withdrawal no history of seizures or DTs in the past.patient denied any recent fall or head injury Related Data Home Medications Medication Instructions Recorded Confirmed albuterol sulfate 90 mcg/actuation 2 puff inhalation Q4H PRN Wheezing 12/29/20 07/04/22 aerosol inhaler simvastatin 20 mg tablet 1 tab PO BEDTIME 12/29/20 07/04/22 thiamine HCl (vitamin B1) 100 mg 1 tab PO BEDTIME 12/29/20 07/04/22 tablet aspirin 81 mg tablet,delayed 1 tab PO DAILY 02/04/21 07/04/22 release buspirone 5 mg tablet 5 mg PO BID 02/04/21 07/04/22 ramelteon 8 mg tablet 1 tab PO BEDTIME 05/12/21 07/04/22 tamsulosin 0.4 mg capsule 1 cap PO DAILY@1700 05/12/21 07/04/22 omeprazole 20 mg capsule,delayed 1 cap PO BID@0630,1630 06/01/21 07/04/22 release gabapentin 300 mg capsule 300 mg PO TID 10/06/21 07/04/22 multivitamin 1 tab PO DAILY 12/11/21 07/04/22 folic acid 1 mg tablet 1 tab PO BEDTIME 03/16/22 07/04/22 celecoxib 50 mg capsule 1 cap PO BID 07/04/22 07/04/22 omega-3 300 mg-dha 120 mg-epa 180 1 cap PO DAILY 07/04/22 07/04/22 mg-fish oil 1,000 mg capsule Previous Rx's Medication Instructions Recorded acetaminophen 325 mg tablet 650 mg PO Q6H PRN pain #10 tabs 10/08/21 (Tylenol) hydrocortisone 10 mg tablet 10 mg PO DAILY #30 tabs 07/14/22 (Cortef) hydrocortisone 5 mg tablet 5 mg PO .EVENING #30 tabs 07/14/22 insulin glargine 100 unit/mL 15 unit (0.15 mL) subcut BEDTIME 07/14/22 subcutaneous solution (Lantus #1 mL U-100 Insulin) Allergies Allergy/AdvReac Type Severity Reaction Status Date / Time environmental allergies Allergy Sneezing Verified 07/08/22 08:40 Review of Systems Review of Systems: Yes all other systems are reviewed and are negative [facility] Past Medical History Medical History Acute diastolic CHF (congestive heart failure) Acute hyponatremia Acute respiratory failure with hypoxia Acute respiratory failure with hypoxia LAUREN (acute kidney injury) Alcohol abuse Anxiety Bilateral pleural effusion Cellulitis, scrotum Contusion of rib on left side COPD (chronic obstructive pulmonary disease) Diabetes mellitus type 1 Diastolic dysfunction Diastolic heart failure DMII (diabetes mellitus, type 2) Electrolyte abnormality Elevated troponin Fall Fall Fungal dermatitis Gram-positive bacteremia HLD (hyperlipidemia) Hypertension Metabolic acidosis Metabolic acidosis Nonrheumatic aortic (valve) stenosis Obesity Pneumonia Rhabdomyolysis Surgical History H/O elbow surgery H/O shoulder surgery History of hydrocelectomy S/P TURP Family History Family History Father Diabetes Mother Diabetes Social History Social History Household Members: None Housing: Apartment Do you presently have visiting nurse or other home services: No Unable to assess alcohol history related to: Unable to respond Alcohol intake: current Alcohol intake frequency: 3 or more drinks per day Alcohol type: hard liquor Patient Tobacco Use Status: Former Tobacco user Quit Date: 05/02/22 Tobacco use type: Cigar Years Smoked: 50 e-Cigarette/Vaping Use: Former Use Second Hand Smoke Exposure: No Advance Directives: Yes Advance Directives on File: Yes Advance Directives Date on File: 10/11/20 service: No Current occupational status: unemployed and disabled Physical Exam ED Vital Signs: Vital Signs - 24 hr 08/11/22 00:28 Temperature 98 F Pulse Rate 92 Respiratory Rate 20 Blood Pressure 132/68 Pulse Oximetry 96 Oxygen Delivery Method Room Air BMI result Body Mass Index 33.4 Appearance: Alert. Oriented X3. Very unkempt condition Eyes: PERRLA, No Nystagmus ENT: Pharynx normal. Oral Mucosa dry Neck: Normal inspection. Neck supple. CVS: Normal heart rate and rhythm. Pulses normal. Respiratory: No respiratory distress. Equal air entry bilateral, no wheezing/rales/rhonchi Abdomen: Soft and nontender. Bowel sounds are present, no mass palpable, no CVA tenderness Skin: Skin warm and dry. Normal skin color. Decreased skin turgor. Tinea rash bilateral groin Extremities: No lower extremity edema. No calf tenderness Neuro: Oriented X 3. No motor deficit. No sensory deficit.No cerebellar signs , cranial nerves II-XII intact decreased muscle mass in lower extremity, tremors++ Medical Decision Making Medical Decision Making [facility] Narrative: Patient alcoholic came in with alcohol withdrawal with increased weakness shakiness phenobarb protocol was started lab workup showed hypopotassemia of 3.0 and sodium 127. Patient received some fluids IV as technically difficult because of frequent IV infiltration. Multiple attempts were made without success including central line. Patient refused central line in the groin area or subclavian area. Unable to visualize clearly IJV on the right side procedure when done. Patient will be admitted to medical service if needed may need radiologist to place IV if needed Consult Healthcare Provider Management of the patient was discussed with: Hospitalist Lab Data [facility] Lab Attestation statement: I reviewed the patient's lab results. 08/11/22 01:02 08/11/22 01:02 Labs: Lab Results 08/11/22 08/11/22 08/11/22 Range/Units 01:02 01:02 03:40 WBC 5.8 (4.8-10.8) X10*3/uL RBC 4.40 L (4.60-5.80) X10*6/uL Hgb 13.1 L (14.0-18.0) g/dl Hct 38.0 L (42.0-52.0) % MCV 86.4 (80.0-98.0) fL MCH 29.8 (27.0-33.0) pg MCHC 34.5 (31.0-36.0) g/dl RDW 12.8 (11.0-16.0) % Plt Count 127 L D (160-400) X10*3/uL MPV 8.6 L (9.4-12.4) fL Immature Gran % (Auto) 0.3 (0.0-0.4) % Neut % (Auto) 67.0 (45-73) % Lymph % (Auto) 16.1 L (20-40) % [place] % (Auto) 11.6 H (2-11) % Eos % (Auto) 4.5 H (0-4) % Baso % (Auto) 0.5 (0-2) % Lymph # (Auto) 0.9 L (1.2-4.9) X10*3/uL [place] # (Auto) 0.7 (0.1-1.2) X10*3/uL Eos # (Auto) 0.3 (0.0-0.4) X10*3/uL Baso # (Auto) 0.0 (0.0-0.2) X10*3/uL Abs Immat Gran (auto) 0.02 (0.00-0.03) X10*3/uL Absolute Neuts (auto) 3.9 (2.0-8.3) x10*3/uL Absolute Nucleated RBC 0.000 (0.0-0.012) X10*3/uL Nucleated RBC % (auto) 0.0 (0.0-0.2) /100WBC Sodium 127 L (135-145) mmol/L Potassium 3.0 L D (3.3-5.1) mmol/L Chloride 85 L (96-108) mmol/L Carbon Dioxide 22 (22-29) mmol/L Anion Gap 23 H (12-20) BUN 9 (9-16) mg/dL Creatinine 1.28 (0.5-1.4) mg/dL Estim Creat Clear Calc 65.0 Estimated GFR 56 Random Glucose 184 H (60-115) mg/dL Calcium 8.8 (8.4-10.2) mg/dL Magnesium 1.7 (1.6-2.6) mg/dL Total Bilirubin 0.7 (0.0-1.0) mg/dL Direct Bilirubin 0.2 (0.0-0.5) mg/dL AST 41 H (5-37) U/L ALT 42 H (0-40) U/L Alkaline Phosphatase 130 H (39-117) U/L Total Protein 6.5 (6.5-8.0) g/dL Albumin 3.8 (3.5-5.0) g/dL Lipase 18 (8-78) U/L COVID-19 (ELIER) Invalid (Negative) COVID-19 Clin Com See Note Medications Administered Discontinued Medications Generic Name Dose Route Start Last Admin Trade Name Freq PRN Reason Stop Dose Admin Folic Acid 1 mg 08/11/22 01:21 08/11/22 01:43 Folic Acid 1 Mg Tablet PO 08/11/22 01:22 1 mg ONCE ONE Administration Sodium Chloride 1,000 mls @ 999 mls/hr 08/11/22 01:20 08/11/22 01:43 Ns IV 08/11/22 02:20 999 mls/hr .Q1H1M ONE Administration Sodium Chloride 1,000 mls @ 999 mls/hr 08/11/22 02:58 08/11/22 03:42 Ns IV 08/11/22 03:58 999 mls/hr .Q1H1M ONE Administration Magnesium Sulfate 2 gm in 50 mls @ 100 mls/hr 08/11/22 02:58 08/11/22 04:09 Magnesium Sulfate/H2o IV 08/11/22 03:27 Not Given ONCE ONE Potassium Chloride 10 meq in 100 mls @ 100 mls/hr 08/11/22 02:58 08/11/22 03:56 Potassium Chloride/H20 IV 08/11/22 03:57 0 mls/hr ONCE ONE Infusion Lorazepam 2 mg 08/11/22 01:20 08/11/22 01:43 Lorazepam 2 Mg/Ml Vial IVPUSH 08/11/22 01:21 2 mg ONCE ONE Administration Nystatin 1 appl 08/11/22 02:59 08/11/22 04:10 Nystatin Powder 15 Gm Bottle TOPICAL 08/11/22 03:00 Not Given ONCE ONE Protocol Pantoprazole Sodium 40 mg 08/11/22 01:20 08/11/22 01:43 Pantoprazole Sodium 40 Mg/10 Ml Vial IVPUSH 08/11/22 01:21 40 mg ONCE ONE Administration Phenobarbital Sodium 396 mg 08/11/22 02:00 08/11/22 03:31 Phenobarbital Sodium 130 Mg/Ml Im Once IM 08/11/22 02:01 396 mg ONCE ONE Administration Thiamine HCl 100 mg 08/11/22 01:21 08/11/22 01:43 Thiamine Hcl 100 Mg Tablet PO 08/11/22 01:22 100 mg ONCE ONE Administration Discharge Plan Discharge Clinical Impression: Generalized weakness, Alcohol withdrawal, Chronic hypokalemia, Chronic hyponatremia Patient Disposition: Admitted As Inpatient
[2022-08-11] MEDS: Enoxaparin Sodium 40 MG/0.4 ML SYRINGE SUBCUT (05:08)
[2022-08-11] MEDS: Potassium Bicarbonate/Cit AC 25 MEQ TABLET.EFF 50 MEQ PO (05:08)
[2022-08-11] MEDS: Magnesium Oxide 400 MG TABLET PO (05:08)
--- NOTE | 2022-08-11 05:35 | PC.NURSE ---
PT resting quietly with eyes closed. Respirations even and unlabored. No acute distress noted.
--- NOTE | 2022-08-11 05:42 | PM.IMHP ---
History of Present Illness Date of Service: 08/11/22 Chief Complaint: Weakness 66-year-old male with past medical history of alcohol abuse, diastolic heart failure, COPD, diabetes, who presents the hospital with complaints of generalized weakness. Patient states that he has not been eating or drinking well for the past several days, drinking 1 pt of alcohol daily, reports that he called EMS because his legs were too weak to hold him. He denies no chest pain, no shortness of breath, no cough, reports 1 episode of vomiting yesterday, no diarrhea constipation, no abdominal pain, no urinary symptoms and no lower extremity edema. No specific weakness numbness or tingling on arrival to the ED patient hemodynamically stable with no significant abnormal vital Labs are significant for WBC count of 5.8, hemoglobin 13.1, hematocrit 38, chronic hyponatremia, sodium of 127 with a previous of 137 AST of 41, ALT of 42, alk-phos of 130 States his last alcohol drink was the day prior to presentation, denies any history of withdrawal seizures Review of Systems Review of Systems: Yes all other systems are reviewed and are negative [facility] Medical History Acute diastolic CHF (congestive heart failure) Acute hyponatremia Acute respiratory failure with hypoxia Acute respiratory failure with hypoxia LAUREN (acute kidney injury) Alcohol abuse Anxiety Bilateral pleural effusion Cellulitis, scrotum Contusion of rib on left side COPD (chronic obstructive pulmonary disease) Diabetes mellitus type 1 Diastolic dysfunction Diastolic heart failure DMII (diabetes mellitus, type 2) Electrolyte abnormality Elevated troponin Fall Fall Fungal dermatitis Gram-positive bacteremia HLD (hyperlipidemia) Hypertension Metabolic acidosis Metabolic acidosis Nonrheumatic aortic (valve) stenosis Obesity Pneumonia Rhabdomyolysis Family History Father Diabetes Mother Diabetes Surgical History H/O elbow surgery H/O shoulder surgery History of hydrocelectomy S/P TURP Social History Household Members: None Housing: Apartment Do you presently have visiting nurse or other home services: No Unable to assess alcohol history related to: Unable to respond Alcohol intake: current Alcohol intake frequency: 3 or more drinks per day Alcohol type: hard liquor Patient Tobacco Use Status: Former Tobacco user Quit Date: 05/02/22 Tobacco use type: Cigar Years Smoked: 50 e-Cigarette/Vaping Use: Former Use Second Hand Smoke Exposure: No Advance Directives: Yes Advance Directives on File: Yes Advance Directives Date on File: 10/11/20 service: No Current occupational status: unemployed and disabled Meds Allergies Allergy/AdvReac Type Severity Reaction Status Date / Time environmental allergies Allergy Sneezing Verified 07/08/22 08:40 Active Medications: Current Medications Acetaminophen (Acetaminophen 325 Mg Tablet) 650 mg PO Q6H PRN PRN Reason: Pain, Mild (Pain Scale 1-3) Docusate Sodium (Docusate Sodium 100 Mg Capsule) 100 mg PO DAILY PRN PRN Reason: Constipation Enoxaparin Sodium (Enoxaparin Sodium 40 Mg/0.4 Ml Syringe) 40 mg SUBCUT Q24H [facility] Last Admin: 08/11/22 05:08 Dose: 40 mg Folic Acid (Folic Acid 1 Mg Tablet) 1 mg PO DAILY [facility] Ondansetron HCl (Ondansetron Hcl 4 Mg/2 Ml Vial) 4 mg IVPUSH Q8H PRN PRN Reason: Nausea and Vomiting Pharmacy Consult (Consult Rx Etoh Phenob Im/Po) 1 each MISCELLANE ONCE PRN; Protocol PRN Reason: Consult order Phenobarbital Sodium (Phenobarbital Sodium 130 Mg/Ml Vial Im Q3hx2) 297 mg IM Q3H [facility] Stop: 08/11/22 08:01 Sodium Chloride (0.9 % Sodium Chloride Flush 3 Ml Syringe) 3 ml IVFLUSH QSHIFT [facility] Thiamine HCl (Thiamine Hcl 100 Mg Tablet) 100 mg PO DAILY [facility] Home Medications Medication Instructions Recorded Confirmed Last Taken Type albuterol sulfate 90 mcg/actuation 2 puff inhalation Q4H PRN Wheezing 12/29/20 07/04/22 10/06/21 History aerosol inhaler simvastatin 20 mg tablet 1 tab PO BEDTIME 12/29/20 07/04/22 10/05/21 History thiamine HCl (vitamin B1) 100 mg 1 tab PO BEDTIME 12/29/20 07/04/22 10/05/21 History tablet aspirin 81 mg tablet,delayed 1 tab PO DAILY 02/04/21 07/04/22 12/11/21 History release buspirone 5 mg tablet 5 mg PO BID 02/04/21 07/04/22 12/11/21 History ramelteon 8 mg tablet 1 tab PO BEDTIME 05/12/21 07/04/22 10/05/21 History tamsulosin 0.4 mg capsule 1 cap PO DAILY@1700 05/12/21 07/04/22 10/06/21 History omeprazole 20 mg capsule,delayed 1 cap PO BID@0630,1630 06/01/21 07/04/22 10/06/21 History release gabapentin 300 mg capsule 300 mg PO TID 10/06/21 07/04/22 10/05/21 History multivitamin 1 tab PO DAILY 12/11/21 07/04/22 Unknown History folic acid 1 mg tablet 1 tab PO BEDTIME 03/16/22 07/04/22 Unknown History celecoxib 50 mg capsule 1 cap PO BID 07/04/22 07/04/22 Unknown History omega-3 300 mg-dha 120 mg-epa 180 1 cap PO DAILY 07/04/22 07/04/22 Unknown History mg-fish oil 1,000 mg capsule Physical Exam Vital Signs and Narrative: Vital Signs: Last Vital Signs Temp 98 F 08/11/22 00:28 Pulse 92 08/11/22 00:28 Resp 20 08/11/22 00:28 BP 132/68 08/11/22 00:28 Pulse Ox 96 08/11/22 00:28 O2 Del Method Room Air 08/11/22 00:28 BMI result Body Mass Index 33.4 Const: Other: unkempt, poor hygience General: cooperative and no acute distress Eyes: General: appearance normal, both eyes and all related structures Resp: Effort & Inspection: normal respiratory effort Auscultation: clear to auscultation bilaterally Cardio: Rate: regular rate Rhythm: regular rhythm GI: Palpation (GI): Soft to palpation Auscultation: normal bowel sounds Skin: Other: fungal infection in the groin region Neuro: Cognition (Neuro): normal cognition Extrem: General: Yes normal to inspection and Yes no pedal edema Results Labs 08/11/22 01:02 08/11/22 01:02 Labs: Laboratory Results - last 24 hr 08/11/22 08/11/22 08/11/22 01:02 01:02 03:40 MCV 86.4 MCH 29.8 MCHC 34.5 RDW 12.8 Plt Count 127 L D MPV 8.6 L Immature Gran % (Auto) 0.3 Neut % (Auto) 67.0 Lymph % (Auto) 16.1 L [place] % (Auto) 11.6 H Eos % (Auto) 4.5 H Baso % (Auto) 0.5 Lymph # (Auto) 0.9 L [place] # (Auto) 0.7 Eos # (Auto) 0.3 Baso # (Auto) 0.0 Abs Immat Gran (auto) 0.02 Absolute Neuts (auto) 3.9 Absolute Nucleated RBC 0.000 Nucleated RBC % (auto) 0.0 Anion Gap 23 H Estim Creat Clear Calc 65.0 Estimated GFR 56 Random Glucose 184 H Calcium 8.8 Magnesium 1.7 Total Bilirubin 0.7 Direct Bilirubin 0.2 AST 41 H ALT 42 H Alkaline Phosphatase 130 H Total Protein 6.5 Albumin 3.8 Lipase 18 COVID-19 (ELIER) Invalid COVID-19 Clin Com See Note Assessment and Plan (1) Alcohol withdrawal: Status: Acute (2) Acute hyponatremia: Status: Acute (3) Hypokalemia: Status: Acute (4) Generalized weakness: Status: Acute Plan 66-year-old male with past medical history of alcohol abuse presents to the hospital with complaints of generalized weakness found to have acute alcohol withdrawal as well as hyponatremia and hypokalemia # alcohol withdrawal - last drink was yesterday, - started on phenobarb protocol in the ED- will continue - add thiamine and folic acid supplement - monitor for withdrawal symptoms # acute hyponatremia - has history of hyponatremia - likely secondary to poor oral intake/solute intake - will start him on gentle hydration - follow BMP closely # hypokalemia - secondary to poor oral intake - repleted - follow BMP # generalized weakness - likely secondary to deconditioning given history of alcohol abuse - PT OT prior to discharge # history of CHF - not in exacerbation - monitor symptoms # diabetes - continue home insulin - will add low-dose sliding scale insulin - diabetic diet # HLD - continue statin # Documented history of COPD - not in exacerbation - continue p.r.n. inhaler DVT prophylaxis: Lovenox given patient's need for monitoring of alcohol withdrawal symptoms patient require minimum 2 night inpatient hospital for further management and monitoring Time Spent With Patient Time: Total time managing care of this patient today ____ minutes. Quality Stroke Does the patient have a stroke diagnosis?: No VTE Prior VTE?: No VTE Risk Level:: Medical - low VTE Device Contraindication: Treatment Not Indicated VTE Drug Contraindication: Treatment Not Indicated
[2022-08-11 05:47] LABS: Influenza A PCR NEGATIVE (Negative); Influenza B PCR NEGATIVE (Negative); Resp Syncy Virus RNA Qual PCR NEGATIVE (Negative); SARS COV2 PCR INHOUSE NEGATIVE (Negative)
--- NOTE | 2022-08-11 06:29 | PC.NURSE ---
Report to floor attempted at this time.
--- NOTE | 2022-08-11 06:38 | PC.NURSE ---
Report to Iona ROSENBERG.
[2022-08-11] MEDS: PHENobarbitaL sodium 130 MG/ML VIAL IM Q3Hx2 205 MG IM ×2 (07:10→10:23)
[2022-08-11 07:39] LABS: Glucose, Whole Blood 362 mg/dL (60-115)
--- NOTE | 2022-08-11 08:21 | PHA.MEDREC ---
Pharmacy Consult ? Medication Reconciliation Pharmacy has completed the medication reconciliation. Patient sleepy, would awake for a second then and would not answer. Patient is a [facility] patient at [facility]. Recieved list from pharmacy. Lantus not on list however patient reported lantus on last visit therefore I kept on home med list. April Agosto, MaryD
--- NOTE | 2022-08-11 10:17 | PM.EVENT ---
Event Note Date of Service: 08/11/22 Event Note: Day hospitalist update S: c/o weakness, feeling tired refused IV placement O: Temp Pulse Resp BP Pulse Ox O2 Del Method 97 F 100 18 138/63 96 Room Air 08/11/22 07:37 08/11/22 07:37 08/11/22 07:37 08/11/22 07:37 08/11/22 07:37 08/11/22 07:37 Gen: disheveled HEENT: sclera anicteric, moist mucus membranes Neck: supple Lungs: clear to auscultation bilaterally Heart: regular rate and rhythm, no murmurs Abd: soft, non-tender, non-distended Ext: no edema Skin: warm/well-perfused Neuro: alert and oriented x3, no focal findings Psych: appropriate affect A/P: hospital day#1 66yo M with AUD presenting with weakness, admitted for EtOH withdrawal, hypoNa, and hypoK # EtOH withdrawal - phenobarbital taper # hypoNa - suspect hypovolemia + beer potomania, will give NS and recheck BMP this afternoon and again in AM # hypoK - replete, recheck BMP # AUD - B vitamins, Addiction Med consult # chron HFpEF not in acute exac - monitor volume status # COPD not in acute exac - prn albuterol # DM2 - olivia-dose lispro # VTE ppx: LMWH # dispo: TBD, PT consult In my clinical judgment, the patient requires continued inpatient hospitalization for the following reasons: electrolyte repletion, inpt EtOH withdrawal tx Time Spent With Patient Time: Total time managing care of this patient today ____ minutes.
[2022-08-11 11:08] LABS: Glucose, Whole Blood 341 mg/dL (60-115)
--- NOTE | 2022-08-11 11:09 | MHC.RECOVRN ---
Addendum entered by Vangie Conner RN 08/11/22 12:59: This music writer made second attempt, patient not awake to verbal command, patient opened eyes briefly, continued sleeping, will return later. Original Note: This music writer went to meet with patient, after addiction consult placed. Patient sleeping, unable to wake to verbal command. Will return later when patient awake, alert.
[2022-08-11 11:23] LABS: MANUAL DIFF FLAG NO
[2022-08-11 11:26] LABS: Basophils Absolute Auto 0.1 X10*3/uL (0.0-0.2); Basophils Percent Auto 0.9 % (0-2); Eosinophils Absolute Auto 0.4 X10*3/uL (0.0-0.4); Eosinophils Percent Auto 6.6 % (0-4); Hematocrit 34.2 % (42.0-52.0); Hemoglobin 11.8 g/dl (14.0-18.0); Imm Gran Abs Auto 0.02 X10*3/uL (0.00-0.03); Imm Gran Pct Auto 0.4 % (0.0-0.4); Lymphocytes Absolute Auto 0.9 X10*3/uL (1.2-4.9); Mean Corpuscular HGB Conc 34.5 g/dl (31.0-36.0); Mean Corpuscular Hemoglobin 30.4 pg (27.0-33.0); Mean Corpuscular Volume 88.1 fL (80.0-98.0); Mean Platelet Volume 9.5 fL (9.4-12.4); Monocytes Absolute Auto 0.6 X10*3/uL (0.1-1.2); Monocytes Percent Auto 11.5 % (2-11); Neutrophils Absolute Auto 3.4 x10*3/uL (2.0-8.3); Neutrophils Percent Auto 63.6 % (45-73); Platelet Count 120 X10*3/uL (160-400); Red Blood Count 3.88 X10*6/uL (4.60-5.80); Red Cell Distribution Width 12.7 % (11.0-16.0); White Blood Count 5.3 X10*3/uL (4.8-10.8)
[2022-08-11 12:04] LABS: Anion Gap 17 (12-20); Blood Urea Nitrogen 11 mg/dL (9-16); Calcium 8.3 mg/dL (8.4-10.2); Carbon Dioxide 27 mmol/L (22-29); Chloride 89 mmol/L (96-108); Creatinine Clr Calc Pharmacy 57.7; Estimated Glomerular Filt Rate 49; Glucose Random 355 mg/dL (60-115); Potassium 3.9 mmol/L (3.3-5.1); Sodium 129 mmol/L (135-145)
--- NOTE | 2022-08-11 13:50 | PC.NURSE ---
PT ARRIVED ON UNIT AT 0730. VERY RESISTIVE TO CARE. DEMETRI DENT ATTEMPTED TO START IV. BUT PT BECAME VERBALLY ABUSIVE. DR SONG IS AWARE OF HIS BEHAVIOR. pt slept through breakfast and lunch. inc of urine this afternoon. very resistive to being clean up.
[2022-08-11 16:46] LABS: Glucose, Whole Blood 335 mg/dL (60-115)
[2022-08-11] MEDS: Insulin Lispro 100 UNIT/ML 3 ML VIAL SUBCUT ×2 (16:47→21:13)
[2022-08-11 20:49] LABS: Glucose, Whole Blood 233 mg/dL (60-115)
[2022-08-11] MEDS: busPIRone HCl 5 MG TABLET PO (21:13)
[2022-08-11] MEDS: PHENobarbitaL 15 MG TABLET 45 MG PO (21:13)
[2022-08-11] MEDS: Gabapentin 300 MG CAPSULE PO (21:13)
[2022-08-11] MEDS: Atorvastatin Calcium 10 MG TABLET PO (21:13)
[2022-08-12] VITALS (8 sets, daily range): BP systolic 109–128; BP diastolic 51–77; PULSE 95–142; RESP 17–26; TEMP 36.4–40.5; O2SAT 92–98
--- NOTE | 2022-08-12 | ECG_ITS ---
Test Reason : Rapid response Blood Pressure : / mmHG Vent. Rate : 118 BPM Atrial Rate : 118 BPM P-R Int : 098 ms QRS Dur : 084 ms QT Int : 318 ms P-R-T Axes : 082 -22 084 degrees QTc Int : 445 ms Poor data quality Sinus tachycardia with short DE with occasional atrial-paced complexes Abnormal ECG No previous ECGs available Referred By: Danuta Foreman Electronically Signed By:HERMAN TONEY MD
--- NOTE | 2022-08-12 | ECG_ITS ---
Test Reason : tachycardic Blood Pressure : / mmHG Vent. Rate : 116 BPM Atrial Rate : 116 BPM P-R Int : 102 ms QRS Dur : 098 ms QT Int : 302 ms P-R-T Axes : 089 -24 074 degrees QTc Int : 419 ms Sinus tachycardia with short SD Otherwise normal ECG Referred By: Danuta Foreman Electronically Signed By:HERMAN TONEY MD
[2022-08-12] MEDS: Enoxaparin Sodium 40 MG/0.4 ML SYRINGE SUBCUT (06:28)
[2022-08-12 06:41] LABS: Magnesium 1.9 mg/dL (1.6-2.6)
[2022-08-12 07:20] LABS: Glucose, Whole Blood 201 mg/dL (60-115)
[2022-08-12 07:49] LABS: Anion Gap 16 (12-20); Blood Urea Nitrogen 10 mg/dL (9-16); Calcium 8.4 mg/dL (8.4-10.2); Carbon Dioxide 30 mmol/L (22-29); Chloride 92 mmol/L (96-108); Creatinine Clr Calc Pharmacy 87.5; Estimated Glomerular Filt Rate > 60; Glucose Random 198 mg/dL (60-115); Potassium 3.3 mmol/L (3.3-5.1); Sodium 135 mmol/L (135-145)
[2022-08-12] MEDS: Insulin Lispro 100 UNIT/ML 3 ML VIAL SUBCUT ×4 (08:09→22:19)
[2022-08-12] MEDS: busPIRone HCl 5 MG TABLET PO (08:10)
[2022-08-12] MEDS: Thiamine HCL 100 MG TABLET PO (08:11)
[2022-08-12] MEDS: PHENobarbitaL 15 MG TABLET 45 MG PO (08:11)
[2022-08-12] MEDS: Folic Acid 1 MG TABLET PO (08:11)
[2022-08-12] MEDS: Aspirin Enteric Coated 81 MG TABLET.DR PO (08:11)
[2022-08-12] MEDS: Multivitamin TABLET 1 TAB PO (08:12)
--- NOTE | 2022-08-12 09:20 | HO.PM.IMPN ---
Subjective Subjective Date of Service: 08/12/22 Interval History: I feel like a spring chicken... Go away, leave me alone no IV access and difficult stick pt irascible, not cooperative with ROS Review of Systems Review of Systems: Yes Unobtainable due to mental status Physical Exam Vital Signs: Vital Signs: Last Vital Signs Temp 97.7 F 08/12/22 07:10 Pulse 95 08/12/22 07:10 Resp 18 08/12/22 07:10 BP 109/52 L 08/12/22 07:10 Pulse Ox 94 08/12/22 07:10 O2 Del Method Room Air 08/12/22 07:10 O2 Flow Rate 2 08/11/22 16:08 BMI result Body Mass Index 33.4 NAD, disheveled, normal resp effort, skin dry + pink. rest of exam declined by pt Objective Data Active Medications Acetaminophen (Acetaminophen 325 Mg Tablet) 650 mg PO Q6H PRN PRN Reason: Pain, Mild (Pain Scale 1-3) Albuterol Sulfate (Albuterol Sulfate 90 Mcg 8 Gm Inhaler) 2 puff INHALE Q4H PRN PRN Reason: Wheezing Aspirin (Aspirin Enteric Coated 81 Mg Tablet.) 81 mg PO DAILY [facility] Last Admin: 08/12/22 08:11 Dose: 81 mg Documented By: DEONTE Atorvastatin Calcium (Atorvastatin Calcium 10 Mg Tablet) 10 mg PO BEDTIME [facility] Last Admin: 08/11/22 21:13 Dose: 10 mg Documented By: RUBENS Buspirone HCl (Buspirone Hcl 5 Mg Tablet) 5 mg PO BID [facility] Last Admin: 08/12/22 08:10 Dose: 5 mg Documented By: DEONTE Docusate Sodium (Docusate Sodium 100 Mg Capsule) 100 mg PO DAILY PRN PRN Reason: Constipation Enoxaparin Sodium (Enoxaparin Sodium 40 Mg/0.4 Ml Syringe) 40 mg SUBCUT Q24H [facility] Last Admin: 08/12/22 06:28 Dose: 40 mg Documented By: RUBENS Folic Acid (Folic Acid 1 Mg Tablet) 1 mg PO DAILY [facility] Last Admin: 08/12/22 08:11 Dose: 1 mg Documented By: DEONTE Gabapentin (Gabapentin 300 Mg Capsule) 300 mg PO BEDTIME [facility] Last Admin: 08/11/22 21:13 Dose: 300 mg Documented By: RUBENS Glucose (Glucose Gel 15 Gm Gel..Gram.) 15 gm PO Q15M PRN; Protocol PRN Reason: per Hypoglycemia Standing Ord. Sodium Chloride (Ns) 1,000 mls @ 100 mls/hr IVCONT .Q10H [facility] Last Admin: 08/11/22 21:20 Dose: Not Given Documented By: RUBENS Non-Admin Reason: No Access Dextrose (D10) 250 mls @ 750 mls/hr IV Q15M PRN; Protocol PRN Reason: per Hypoglycemia Standing Ord. Insulin Human Lispro (Insulin Lispro 100 Unit/Ml 3 Ml Vial) 0 unit SUBCUT QIDACHS [facility]; Protocol Last Admin: 08/12/22 08:09 Dose: 4 unit Documented By: DEONTE Multivitamins/Vitamin C (Multivitamin Tablet) 1 tab PO DAILY [facility] Last Admin: 08/12/22 08:12 Dose: 1 tab Documented By: DEONTE Non-Formulary Medication (Celecoxib) 1 cap PO BID [facility] Nystatin (Nystatin Powder 15 Gm Bottle) 1 appl TOPICAL BID [facility]; Protocol Last Admin: 08/11/22 21:19 Dose: Not Given Documented By: RUBENS Non-Admin Reason: Patient Refused Omeprazole (Omeprazole 20 Mg Gregg.) 20 mg PO BID@0630,1630 [facility] Last Admin: 08/12/22 06:29 Dose: Not Given Documented By: RUBENS Non-Admin Reason: Patient Asleep Ondansetron HCl (Ondansetron Hcl 4 Mg/2 Ml Vial) 4 mg IVPUSH Q8H PRN PRN Reason: Nausea and Vomiting Pharmacy Consult (Consult Rx Etoh Phenob Im/Po) 1 each MISCELLANE ONCE PRN; Protocol PRN Reason: Consult order Pharmacy Consult (Consult Rx Perform Med Rec) 1 each MISCELLANE ONCE PRN PRN Reason: Consult order Phenobarbital (Phenobarbital 15 Mg Tablet) 45 mg PO BID [facility]; Protocol Stop: 08/13/22 09:01 Last Admin: 08/12/22 08:11 Dose: 45 mg Documented By: EDONTE Phenobarbital (Phenobarbital 30 Mg Tablet) 30 mg PO BID [facility]; Protocol Stop: 08/15/22 09:01 Phenobarbital (Phenobarbital 30 Mg Tablet) 30 mg PO DAILY [facility]; Protocol Stop: 08/17/22 09:01 Sodium Chloride (0.9 % Sodium Chloride Flush 3 Ml Syringe) 3 ml IVFLUSH QSHIFT [facility] Last Admin: 08/12/22 08:13 Dose: Not Given Documented By: DEONTE Non-Admin Reason: No Access Tamsulosin HCl (Tamsulosin Hcl 0.4 Mg Capsule) 0.4 mg PO DAILY@1700 [facility] Last Admin: 08/11/22 16:49 Dose: Not Given Documented By: SHAUN Non-Admin Reason: Patient Refused Thiamine HCl (Thiamine Hcl 100 Mg Tablet) 100 mg PO DAILY [facility] Last Admin: 08/12/22 08:11 Dose: 100 mg Documented By: DEONTE Labs 08/11/22 11:07 08/12/22 05:14 Labs: Laboratory Results - last 24 hr 08/11/22 08/11/22 08/11/22 11:05 11:06 11:07 MCV 88.1 MCH 30.4 MCHC 34.5 RDW 12.7 Plt Count 120 L MPV 9.5 Immature Gran % (Auto) 0.4 Neut % (Auto) 63.6 Lymph % (Auto) 17.0 L Harding % (Auto) 11.5 H Eos % (Auto) 6.6 H Baso % (Auto) 0.9 Lymph # (Auto) 0.9 L Harding # (Auto) 0.6 Eos # (Auto) 0.4 Baso # (Auto) 0.1 Abs Immat Gran (auto) 0.02 Absolute Neuts (auto) 3.4 Absolute Nucleated RBC 0.000 Nucleated RBC % (auto) 0.0 Anion Gap 17 Estim Creat Clear Calc 57.7 Estimated GFR 49 POC Glucose 341 H Random Glucose 355 H* Calcium 8.3 L Magnesium 08/11/22 08/11/22 08/11/22 11:07 16:40 20:41 MCV MCH MCHC RDW Plt Count MPV Immature Gran % (Auto) Neut % (Auto) Lymph % (Auto) Harding % (Auto) Eos % (Auto) Baso % (Auto) Lymph # (Auto) Harding # (Auto) Eos # (Auto) Baso # (Auto) Abs Immat Gran (auto) Absolute Neuts (auto) Absolute Nucleated RBC Nucleated RBC % (auto) Anion Gap Cancelled Estim Creat Clear Calc Cancelled Estimated GFR Cancelled POC Glucose 335 H 233 H Random Glucose Cancelled Calcium Cancelled Magnesium 08/12/22 08/12/22 05:14 07:11 MCV MCH MCHC RDW Plt Count MPV Immature Gran % (Auto) Neut % (Auto) Lymph % (Auto) Harding % (Auto) Eos % (Auto) Baso % (Auto) Lymph # (Auto) Harding # (Auto) Eos # (Auto) Baso # (Auto) Abs Immat Gran (auto) Absolute Neuts (auto) Absolute Nucleated RBC Nucleated RBC % (auto) Anion Gap 16 Estim Creat Clear Calc 87.5 Estimated GFR > 60 POC Glucose 201 H Random Glucose 198 H Calcium 8.4 Magnesium 1.9 Assessment and Plan (1) Acute hyponatremia: Status: Resolved (2) Electrolyte abnormality: Status: Inactive (3) Alcohol withdrawal: Status: Acute Plan hospital day#2 66yo M with AUD presenting with weakness admitted for EtOH withdrawal, hypoNa, and hypoK # EtOH withdrawal - continue phenobarbital taper # hypoNa - suspect hypovolemia + beer potomania; has resolved without IV NS, OK to leave out IV for now # hypoK - repleted # AUD - B vitamins, Addiction Med consult # chron HFpEF, not in acute exacerbation - monitor volume status # COPD, not in acute exacerbation - prn albuterol # DM2, A1c 7.7 (07/06/22) - olivia-dose lispro # VTE ppx: LMWH # dispo: TBD, PT consult In my clinical judgment, the patient requires continued inpatient hospitalization for the following reasons: inpt EtOH withdrawal tx, not safe to ambulate at this time so disposition pending Time Spent With Patient Time: Total time managing care of this patient today ___35_ minutes. Quality Stroke Does the patient have a stroke diagnosis?: No VTE Prior VTE?: No VTE Risk Level:: Medical - low VTE Device Contraindication: Treatment Not Indicated VTE Drug Contraindication: Treatment Not Indicated
[2022-08-12] MEDS: Nystatin Powder 15 GM BOTTLE 1 APPL TOPICAL (09:48)
[2022-08-12 11:10] LABS: Glucose, Whole Blood 229 mg/dL (60-115)
--- NOTE | 2022-08-12 13:23 | MHC.CM.PN ---
per rounds pt evaluation receommnds str for pt when dcd referrals will be made
[2022-08-12] MEDS: oxyCODONE HCl Immed Release 5 MG TABLET PO (14:45)
[2022-08-12] MEDS: 0.9 % Sodium Chloride Flush 3 ML SYRINGE IVFLUSH (14:46)
--- NOTE | 2022-08-12 15:23 | MHC.CM.PN ---
pt accepted at [facility] pt declines rehab ,says he will go home called and left message for sherwin at [facility] about a vna for pt for home physical therapy and correction
[2022-08-12 16:35] LABS: Glucose, Whole Blood 225 mg/dL (60-115)
[2022-08-12] MEDS: Tamsulosin HCL 0.4 MG CAPSULE PO (16:47)
[2022-08-12] MEDS: Omeprazole 20 MG CAPSULE.DR PO (16:47)
[2022-08-12 19:38] LABS: Glucose, Whole Blood 230 mg/dL (60-115)
[2022-08-12 19:51] LABS: ABG Base Excess 9.3 mmol/L; ABG HCO3 32 mmol/L (22-26); ABG pCO2 40 mmHg (32-45); ABG pH 7.52 (7.35-7.45); ABG pO2 124 mmHg (83-108)
[2022-08-12] MEDS: Acetaminophen 1,000 MG/100 ML PIGGYBACK 400 MG IV (20:48)
[2022-08-12] MEDS: Ketorolac Tromethamine 30 MG/ML VIAL IM (20:48)
[2022-08-12] MEDS: methylPREDNISolone Sod Succ 40 MG/ML VIAL IVPUSH (20:51)
[2022-08-12 20:53] LABS: Mean Corpuscular HGB Conc 33.4 g/dl (31.0-36.0); Mean Platelet Volume 8.9 fL (9.4-12.4); PLT CLUMP 1
[2022-08-12 20:55] LABS: Hematocrit 38.6 % (42.0-52.0); Hemoglobin 12.9 g/dl (14.0-18.0); Mean Corpuscular Hemoglobin 29.9 pg (27.0-33.0); Mean Corpuscular Volume 89.4 fL (80.0-98.0); Red Blood Count 4.32 X10*6/uL (4.60-5.80); Red Cell Distribution Width 12.8 % (11.0-16.0)
[2022-08-12 20:58] LABS: Platelet Count 145 X10*3/uL (160-400); White Blood Count 6.3 X10*3/uL (4.8-10.8)
[2022-08-12 21:03] LABS: Ammonia 34 umol/L (13-55)
[2022-08-12 21:12] LABS: Alanine Aminotransferase 31 U/L (0-40); Albumin Level 3.6 g/dL (3.5-5.0); Alkaline Phosphatase 124 U/L (39-117); Anion Gap 15 (12-20); Aspartate Amino Transferase 58 U/L (5-37); Bilirubin Total 0.4 mg/dL (0.0-1.0); Blood Urea Nitrogen 11 mg/dL (9-16); Calcium 8.7 mg/dL (8.4-10.2); Carbon Dioxide 32 mmol/L (22-29); Chloride 90 mmol/L (96-108); Creatinine Clr Calc Pharmacy 80.7; Estimated Glomerular Filt Rate > 60; Glucose Random 238 mg/dL (60-115); Potassium 3.4 mmol/L (3.3-5.1); Sodium 134 mmol/L (135-145)
[2022-08-12 21:16] LABS: B Type Natriuretic Peptide 153 pg/mL (<100)
[2022-08-12 21:19] LABS: Lactic Acid 2.6 mmol/L (0.5-2.0)
[2022-08-12 21:25] LABS: Troponin-I High Sensitivity 126.3 ng/L (<3.5-35.0)
--- NOTE | 2022-08-12 21:57 | PM.EVENT ---
Event Note Date of Service: 08/12/22 Event Note: a rapid response was called on this pt for tachycardia, and temp of 105. pt attended, arousable to painful stimuli, tachycardic, tachypneic, groaning and moaning, Very difficult IV stick, we tried multiple attempts at peripheral IV and were finally able to get 1 in his left foot. ICU also attempted to get an IJ with no success. ABG was drawn which showed no CO2 retention, CBC CMP, lactic acid as well as chest x-ray, CT of the head, as well as of the chest were obtained, there is evidence of sepsis with unknown source at this time, lactic acid of 2.6, has a troponin of 126 with no EKG changes suggestive of ACS, BNP of 153, will start on broad-spectrum IV antibiotics, IV fluids, Pending UA, head CT and chest CT Patient will be transferred to telemetry Vitals otherwise quitting blood pressure and O2 stable Time Spent With Patient Time: Total time managing care of this patient today ____ minutes.
[2022-08-12 22:11] LABS: Glucose, Whole Blood 327 mg/dL (60-115)
[2022-08-12] MEDS: Piperacillin Sodium/Tazobactam 3.375 GM in 0.9 % Sodium Chloride 50 ML IV (22:33)
[2022-08-12 22:48] LABS: Reflex Lactate? Lactic Acid Added
[2022-08-12] MEDS: Lactated Ringers 1,000 ML 150 ML IVCONT (22:54)
[2022-08-12 22:58] LABS: Appearance Urine Clear; Color Urine Yellow; Glucose Urine UA 100 mg/dL (Negative); Leukocyte Esterase Urine Negative (Negative); Nitrite Urine Negative (Negative); UMIC TRIGGER UACC YES; Urine Blood Negative (Negative); Urine Ketones Trace mg/dL (Negative); Urine Protein 30 (1+) mg/dL (Neg-Trace)
[2022-08-12 23:00] LABS: Bacteria Urine None Seen (None Seen); Hyaline Casts Urine 0-2 /LPF (0-2); RBC Urine 0-2 /HPF (0-2); Squamous Epithelial Cell Urine 0-2 /HPF (0-2); WBC Urine 0-5 /HPF (0-5)
[2022-08-12 23:17] LABS: ABG Refer to POC result
[2022-08-12 23:28] LABS: Troponin-I High Sensitivity 246.6 ng/L (<3.5-35.0)
[2022-08-13] VITALS (13 sets, daily range): BP systolic 87–132; BP diastolic 50–84; PULSE 97–125; RESP 14–26; TEMP 35.8–40.3; O2SAT 93–99
[2022-08-13 00:01] LABS: ~Lactic Acid-LAB USE ONLY 1.5 mmol/L (0.5-2.0)
[2022-08-13] MEDS: Lactated Ringers 1,000 ML 999 ML IV ×2 (01:01→03:27)
--- NOTE | 2022-08-13 01:02 | PC.NURSE ---
08/12/221934 pt's temp 105.9 HR 140'S,Pt not responding.rapid response called.Tylenol supp. given at 1944 per .abg's drawn,ekg done,cxr done,labs done.multiple attempts to get an IV in pt and was finally able to get a #22 in his right foot.LR at 150/hr started.the PA from ICU attempted to get a central line in pt and was not able too.pt's temp 2034 was 104.9 rectally.pt medicated with IV tylenol 1000mg and toradol 30mg IM.pt went down to ct for ct of head and chest then transfered to [facility].
--- NOTE | 2022-08-13 03:40 | PC.NURSE ---
Pt more awake as night progressed.Rectal temp currently 100.4.BP 90/54,90/60 manual,Pt currently receiving second bolus of LR.Restless,resistive to care.Refusing lab draws. Leave me alone , no no no .Aware that he is in the hospital and able to state which hospital.Lungs clear,sats 96-98% on room air.Monitor AFIB with occ Stach 90-100's.Dr Brooks aware pt is refusing labs.
[2022-08-13] MEDS: Piperacillin Sodium/Tazobactam 3.375 GM in 0.9 % Sodium Chloride 50 ML IV ×4 (05:10→21:04)
[2022-08-13] MEDS: Enoxaparin Sodium 40 MG/0.4 ML SYRINGE SUBCUT (05:32)
[2022-08-13] MEDS: Lactated Ringers 1,000 ML 150 ML IVCONT ×2 (05:34→10:34)
[2022-08-13 08:11] LABS: Glucose, Whole Blood 279 mg/dL (60-115)
[2022-08-13] MEDS: PHENobarbitaL 15 MG TABLET 45 MG PO (08:28)
[2022-08-13] MEDS: Aspirin Enteric Coated 81 MG TABLET.DR PO (08:29)
[2022-08-13] MEDS: Multivitamin TABLET 1 TAB PO (08:29)
[2022-08-13] MEDS: busPIRone HCl 5 MG TABLET PO (08:29)
[2022-08-13] MEDS: Insulin Lispro 100 UNIT/ML 3 ML VIAL SUBCUT ×3 (08:29→21:03)
[2022-08-13] MEDS: Thiamine HCL 100 MG TABLET PO (08:29)
[2022-08-13] MEDS: Folic Acid 1 MG TABLET PO (08:29)
[2022-08-13 09:42] LABS: Adenovirus PCR Not Detected (Not Detect.); Bordetella parapertussis PCR Not Detected (Not Detect.); Bordetella pertussis PCR Not Detected (Not Detect.); Chlamydia pneumoniae PCR Not Detected (Not Detect.); Coronavirus 229E PCR Not Detected (Not Detect.); Coronavirus HKU1 PCR Not Detected (Not Detect.); Coronavirus NL63 PCR Not Detected (Not Detect.); Coronavirus OC43 PCR Not Detected (Not Detect.); Human metapneumovirus PCR Not Detected (Not Detect.); Influenza A PCR Not Detected (Not Detect.); Influenza B PCR Not Detected (Not Detect.); Mycoplasma pneumoniae PCR Not Detected (Not Detect.); Parainfluenza 1 PCR Not Detected (Not Detect.); Parainfluenza 2 PCR Not Detected (Not Detect.); Parainfluenza 3 PCR Not Detected (Not Detect.); Parainfluenza 4 PCR Not Detected (Not Detect.); RSV PCR Not Detected (Not Detect.); Rhino/Enterovirus PCR Not Detected (Not Detect.); SARS-CoV-2 PCR Not Detected (Not Detect.)
[2022-08-13] MEDS: vancomycin HCL 1,000 MG in 0.9 % Sodium Chloride 250 ML 270 MG IV (10:34)
--- NOTE | 2022-08-13 11:11 | HO.PM.IMPN ---
Subjective Subjective Date of Service: 08/13/22 Interval History: seen and examined this morning follow up for alcohol withdrawal spiked high fever overnight - received IVF, blood cultures obtained and started on empiric abx no fever this morning denies cough, but sitter in room reports intermittent dry cough declined repeat lab work this am Review of Systems Review of Systems: Yes all other systems are reviewed and are negative Constitutional Constitutional: Denies chills and Denies fever(s) Cardiovascular Cardiovascular: Denies chest pain Gastrointestinal Gastrointestinal: Denies abdominal pain Physical Exam Vital Signs: Vital Signs: Last Vital Signs Temp 98.8 F 08/13/22 07:49 Pulse 102 H 08/13/22 07:49 Resp 20 08/13/22 07:49 BP 112/79 08/13/22 07:49 Pulse Ox 96 08/13/22 07:49 O2 Del Method Room Air 08/13/22 07:49 O2 Flow Rate 2 08/12/22 21:46 BMI result Body Mass Index 33.4 Const: General: comfortable Nutritional Appearance: overweight Orientation/consciousness: oriented to person and oriented to place Resp: Other: diminished breath sounds Effort & Inspection: normal respiratory effort and able to speak in complete sentences Cardio: Rate: regular rate GI: Other: mccann in place Inspection: No distended Palpation (GI): Soft to palpation and nontender Neuro: Other: moving all extremities; grossly non focal General: oriented to person and oriented to place Extrem: General: Yes no pedal edema Objective Data Active Medications Acetaminophen (Acetaminophen 325 Mg Tablet) 650 mg PO Q6H PRN PRN Reason: Pain, Mild (Pain Scale 1-3) Albuterol Sulfate (Albuterol Sulfate 90 Mcg 8 Gm Inhaler) 2 puff INHALE Q4H PRN PRN Reason: Wheezing Aspirin (Aspirin Enteric Coated 81 Mg Tablet.) 81 mg PO DAILY [facility] Last Admin: 08/13/22 08:29 Dose: 81 mg Documented By: GINGER Atorvastatin Calcium (Atorvastatin Calcium 10 Mg Tablet) 10 mg PO BEDTIME [facility] Last Admin: 08/12/22 21:47 Dose: Not Given Documented By: ALEX Non-Admin Reason: See Note Buspirone HCl (Buspirone Hcl 5 Mg Tablet) 5 mg PO BID [facility] Last Admin: 08/13/22 08:29 Dose: 5 mg Documented By: GINGER Docusate Sodium (Docusate Sodium 100 Mg Capsule) 100 mg PO DAILY PRN PRN Reason: Constipation Enoxaparin Sodium (Enoxaparin Sodium 40 Mg/0.4 Ml Syringe) 40 mg SUBCUT Q24H [facility] Last Admin: 08/13/22 05:32 Dose: 40 mg Documented By: OTILIA Folic Acid (Folic Acid 1 Mg Tablet) 1 mg PO DAILY [facility] Last Admin: 08/13/22 08:29 Dose: 1 mg Documented By: GINGER Gabapentin (Gabapentin 300 Mg Capsule) 300 mg PO BEDTIME [facility] Last Admin: 08/12/22 21:47 Dose: Not Given Documented By: FOGARTB Non-Admin Reason: See Note Glucose (Glucose Gel 15 Gm Gel..Gram.) 15 gm PO Q15M PRN; Protocol PRN Reason: per Hypoglycemia Standing Ord. Dextrose (D10) 250 mls @ 750 mls/hr IV Q15M PRN; Protocol PRN Reason: per Hypoglycemia Standing Ord. Piperacillin Sod/Tazobactam (Sod 3.375 gm/ Sodium Chloride) 50 mls @ 100 mls/hr IV Q6H [facility] Last Infusion: 08/13/22 10:26 Dose: 0 mls/hr Documented By: GINGER Vancomycin HCl 1,000 mg/ (Sodium Chloride) 270 mls @ 270 mls/hr IV Q12H [facility] Last Admin: 08/13/22 10:34 Dose: 270 mls/hr Documented By: GINGER Lactated Ringer's (Lr) 1,000 mls @ 150 mls/hr IVCONT .Q6H40M [facility] Last Admin: 08/13/22 10:34 Dose: 150 mls/hr Documented By: GINGER Insulin Human Lispro (Insulin Lispro 100 Unit/Ml 3 Ml Vial) 0 unit SUBCUT QIDACHS [facility]; Protocol Last Admin: 08/13/22 08:29 Dose: 6 unit Documented By: GINGER Multivitamins/Vitamin C (Multivitamin Tablet) 1 tab PO DAILY [facility] Last Admin: 08/13/22 08:29 Dose: 1 tab Documented By: GINGER Non-Formulary Medication (Celecoxib) 1 cap PO BID [facility] Nystatin (Nystatin Powder 15 Gm Bottle) 1 appl TOPICAL BID [facility]; Protocol Last Admin: 08/13/22 08:30 Dose: Not Given Documented By: GINGER Non-Admin Reason: Patient Refused Omeprazole (Omeprazole 20 Mg Capsule.) 20 mg PO BID@0630,1630 [facility] Last Admin: 08/13/22 05:34 Dose: Not Given Documented By: OTILIA Non-Admin Reason: Patient Refused Ondansetron HCl (Ondansetron Hcl 4 Mg/2 Ml Vial) 4 mg IVPUSH Q8H PRN PRN Reason: Nausea and Vomiting Oxycodone HCl (Oxycodone Hcl Immed Release 5 Mg Tablet) 5 mg PO Q6H PRN PRN Reason: severe pain Last Admin: 08/12/22 14:45 Dose: 5 mg Documented By: CHUCKIE Pharmacy Consult (Consult Rx Etoh Phenob Im/Po) 1 each MISCELLANE ONCE PRN; Protocol PRN Reason: Consult order Pharmacy Consult (Consult Rx Perform Med Rec) 1 each MISCELLANE ONCE PRN PRN Reason: Consult order Pharmacy Consult (Consult Rx Vancomycin Dosing) 1 each MISCELLANE DAILY PRN PRN Reason: Consult order Phenobarbital (Phenobarbital 30 Mg Tablet) 30 mg PO BID [facility]; Protocol Stop: 08/15/22 09:01 Phenobarbital (Phenobarbital 30 Mg Tablet) 30 mg PO DAILY [facility]; Protocol Stop: 08/17/22 09:01 Sodium Chloride (0.9 % Sodium Chloride Flush 3 Ml Syringe) 3 ml IVFLUSH QSHIFT [facility] Last Admin: 08/13/22 07:02 Dose: Not Given Documented By: GINGER Non-Admin Reason: See Note Tamsulosin HCl (Tamsulosin Hcl 0.4 Mg Capsule) 0.4 mg PO DAILY@1700 [facility] Last Admin: 08/12/22 16:47 Dose: 0.4 mg Documented By: BRAYDEN Thiamine HCl (Thiamine Hcl 100 Mg Tablet) 100 mg PO DAILY [facility] Last Admin: 08/13/22 08:29 Dose: 100 mg Documented By: GINGER Labs 08/12/22 20:43 08/12/22 20:43 Labs: Laboratory Results - last 24 hr 08/12/22 08/12/22 08/12/22 16:32 19:33 19:42 MCV MCH MCHC RDW Plt Count MPV Absolute Nucleated RBC Nucleated RBC % (auto) O2 Saturation 100.0 ABG pH at Pt Temp 7.52 H ABG pCO2 at Pt Temp 40 ABG pO2 at Pt Temp 124 H ABG HCO3 32 H ABG Base Excess (Actual) 9.3 Anion Gap Estim Creat Clear Calc Estimated GFR POC Glucose 225 H 230 H Random Glucose Lactic Acid Lactic Acid F/U @ 2Hr Calcium Total Bilirubin AST ALT Alkaline Phosphatase Ammonia Total Creatine Kinase Troponin I High Sens B-Natriuretic Peptide Total Protein Albumin Urine Color Urine Appearance Urine pH Ur Specific [place] Urine Protein Urine Glucose (UA) Urine Ketones Urine Blood Urine Nitrite Ur Leukocyte Esterase Urine RBC Urine WBC Ur Squamous Epith Cells Urine Bacteria Hyaline Casts Respiratory Panel [place] Adenovirus (Rapid PCR) B.pert (TEM-PCR) B.parapertussis DNA PCR C. pneumoniae DNA (PCR) Coronavirus OC43 (PCR) Coronavirus HKU1 (PCR) Coronavirus 229E (PCR) Coronavirus NL63 (PCR) Human Metapneumovir PCR Influenza A (RT-PCR) Influenza B (RT-PCR) M. pneumoniae (PCR) Parainfluenza 1 (PCR) Parainfluenza 2 (PCR) Parainfluenza 3 (PCR) Parainfluenza 4 (PCR) RSV (PCR) Entero/Rhino (PCR) SARS-CoV-2 RNA (RT-PCR) 08/12/22 08/12/22 08/12/22 20:43 20:43 20:43 MCV 89.4 MCH 29.9 MCHC 33.4 RDW 12.8 Plt Count 145 L MPV 8.9 L Absolute Nucleated RBC 0.000 Nucleated RBC % (auto) 0.0 O2 Saturation ABG pH at Pt Temp ABG pCO2 at Pt Temp ABG pO2 at Pt Temp ABG HCO3 ABG Base Excess (Actual) Anion Gap 15 Estim Creat Clear Calc 80.7 Estimated GFR > 60 POC Glucose Random Glucose 238 H Lactic Acid 2.6 H* Lactic Acid F/U @ 2Hr Calcium 8.7 Total Bilirubin 0.4 AST 58 H ALT 31 Alkaline Phosphatase 124 H Ammonia Total Creatine Kinase 1074 H Troponin I High Sens B-Natriuretic Peptide Total Protein 6.0 L Albumin 3.6 Urine Color Urine Appearance Urine pH Ur Specific [place] Urine Protein Urine Glucose (UA) Urine Ketones Urine Blood Urine Nitrite Ur Leukocyte Esterase Urine RBC Urine WBC Ur Squamous Epith Cells Urine Bacteria Hyaline Casts Respiratory Panel [place] Adenovirus (Rapid PCR) B.pert (TEM-PCR) B.parapertussis DNA PCR C. pneumoniae DNA (PCR) Coronavirus OC43 (PCR) Coronavirus HKU1 (PCR) Coronavirus 229E (PCR) Coronavirus NL63 (PCR) Human Metapneumovir PCR Influenza A (RT-PCR) Influenza B (RT-PCR) M. pneumoniae (PCR) Parainfluenza 1 (PCR) Parainfluenza 2 (PCR) Parainfluenza 3 (PCR) Parainfluenza 4 (PCR) RSV (PCR) Entero/Rhino (PCR) SARS-CoV-2 RNA (RT-PCR) 08/12/22 08/12/22 08/12/22 20:43 20:43 20:43 MCV MCH MCHC RDW Plt Count MPV Absolute Nucleated RBC Nucleated RBC % (auto) O2 Saturation ABG pH at Pt Temp ABG pCO2 at Pt Temp ABG pO2 at Pt Temp ABG HCO3 ABG Base Excess (Actual) Anion Gap Estim Creat Clear Calc Estimated GFR POC Glucose Random Glucose Lactic Acid Lactic Acid F/U @ 2Hr Calcium Total Bilirubin AST ALT Alkaline Phosphatase Ammonia 34 Total Creatine Kinase Troponin I High Sens 126.3 H* D B-Natriuretic Peptide 153 H Total Protein Albumin Urine Color Urine Appearance Urine pH Ur Specific [place] Urine Protein Urine Glucose (UA) Urine Ketones Urine Blood Urine Nitrite Ur Leukocyte Esterase Urine RBC Urine WBC Ur Squamous Epith Cells Urine Bacteria Hyaline Casts Respiratory Panel [place] Adenovirus (Rapid PCR) B.pert (TEM-PCR) B.parapertussis DNA PCR C. pneumoniae DNA (PCR) Coronavirus OC43 (PCR) Coronavirus HKU1 (PCR) Coronavirus 229E (PCR) Coronavirus NL63 (PCR) Human Metapneumovir PCR Influenza A (RT-PCR) Influenza B (RT-PCR) M. pneumoniae (PCR) Parainfluenza 1 (PCR) Parainfluenza 2 (PCR) Parainfluenza 3 (PCR) Parainfluenza 4 (PCR) RSV (PCR) Entero/Rhino (PCR) SARS-CoV-2 RNA (RT-PCR) 08/12/22 08/12/22 08/12/22 22:08 22:13 22:45 MCV MCH MCHC RDW Plt Count MPV Absolute Nucleated RBC Nucleated RBC % (auto) O2 Saturation ABG pH at Pt Temp ABG pCO2 at Pt Temp ABG pO2 at Pt Temp ABG HCO3 ABG Base Excess (Actual) Anion Gap Estim Creat Clear Calc Estimated GFR POC Glucose 327 H Random Glucose Lactic Acid Lactic Acid F/U @ 2Hr Calcium Total Bilirubin AST ALT Alkaline Phosphatase Ammonia Total Creatine Kinase Troponin I High Sens 246.6 H* D B-Natriuretic Peptide Total Protein Albumin Urine Color Yellow Urine Appearance Clear Urine pH 8.0 Ur Specific [place] 1.020 Urine Protein 30 (1+) H Urine Glucose (UA) 100 H Urine Ketones Trace Urine Blood Negative Urine Nitrite Negative Ur Leukocyte Esterase Negative Urine RBC 0-2 Urine WBC 0-5 Ur Squamous Epith Cells 0-2 Urine Bacteria None Seen Hyaline Casts 0-2 Respiratory Panel [place] Adenovirus (Rapid PCR) B.pert (TEM-PCR) B.parapertussis DNA PCR C. pneumoniae DNA (PCR) Coronavirus OC43 (PCR) Coronavirus HKU1 (PCR) Coronavirus 229E (PCR) Coronavirus NL63 (PCR) Human Metapneumovir PCR Influenza A (RT-PCR) Influenza B (RT-PCR) M. pneumoniae (PCR) Parainfluenza 1 (PCR) Parainfluenza 2 (PCR) Parainfluenza 3 (PCR) Parainfluenza 4 (PCR) RSV (PCR) Entero/Rhino (PCR) SARS-CoV-2 RNA (RT-PCR) 08/12/22 08/13/22 08/13/22 23:08 07:50 07:52 MCV MCH MCHC RDW Plt Count MPV Absolute Nucleated RBC Nucleated RBC % (auto) O2 Saturation ABG pH at Pt Temp ABG pCO2 at Pt Temp ABG pO2 at Pt Temp ABG HCO3 ABG Base Excess (Actual) Anion Gap Estim Creat Clear Calc Estimated GFR POC Glucose 279 H Random Glucose Lactic Acid Lactic Acid F/U @ 2Hr 1.5 Calcium Total Bilirubin AST ALT Alkaline Phosphatase Ammonia Total Creatine Kinase Troponin I High Sens B-Natriuretic Peptide Total Protein Albumin Urine Color Urine Appearance Urine pH Ur Specific [place] Urine Protein Urine Glucose (UA) Urine Ketones Urine Blood Urine Nitrite Ur Leukocyte Esterase Urine RBC Urine WBC Ur Squamous Epith Cells Urine Bacteria Hyaline Casts Respiratory Panel [place] See Note Adenovirus (Rapid PCR) Not Detected B.pert (TEM-PCR) Not Detected B.parapertussis DNA PCR Not Detected C. pneumoniae DNA (PCR) Not Detected Coronavirus OC43 (PCR) Not Detected Coronavirus HKU1 (PCR) Not Detected Coronavirus 229E (PCR) Not Detected Coronavirus NL63 (PCR) Not Detected Human Metapneumovir PCR Not Detected Influenza A (RT-PCR) Not Detected Influenza B (RT-PCR) Not Detected M. pneumoniae (PCR) Not Detected Parainfluenza 1 (PCR) Not Detected Parainfluenza 2 (PCR) Not Detected Parainfluenza 3 (PCR) Not Detected Parainfluenza 4 (PCR) Not Detected RSV (PCR) Not Detected Entero/Rhino (PCR) Not Detected SARS-CoV-2 RNA (RT-PCR) Not Detected Assessment and Plan (1) Alcohol withdrawal: Status: Acute Plan 66yo M with AUD presenting with weakness, admitted for EtOH withdrawal, hypoNa, and hypoK developed fever overnight on 08/12 Fever developed fever 104 overnight - met sirs criteria with fever and tachycardia (tachycardia likely result of fever) LA initially elevated at 2.6 no sepsis as no source of infection identified at this time RPP negative, Chest CT/abdominal CT no infectious source, UA negative will continue empiric abx until blood culture results available Elevated troponin likely demand from tachycardia denies chest pain repeat pending Mild rhabdo CPK 1074 continue IVF EtOH withdrawal - continue phenobarbital taper - continue thiamine, folic acid supplementation hypoNa - suspect hypovolemia + beer potomania; has resolved without IV NS hypoK - repleted AUD - B vitamins, Addiction Med consult chronic HFpEF, not in acute exacerbation - monitor volume status after receiving IVF COPD, not in acute exacerbation - prn albuterol DM2, A1c 7.7 (07/06/22) - olivia-dose lispro VTE ppx: LMWH dispo: TBD, seen by PT - rec STR In my clinical judgment, the patient requires continued inpatient hospitalization for the following reasons: inpt EtOH withdrawal tx, not safe to ambulate at this time so disposition pending Time Spent With Patient Time: Total time managing care of this patient today ____ minutes. Quality Stroke Does the patient have a stroke diagnosis?: No VTE Prior VTE?: No VTE Risk Level:: Medical - low VTE Device Contraindication: Treatment Not Indicated VTE Drug Contraindication: Treatment Not Indicated
[2022-08-13 11:28] LABS: Anion Gap 19 (12-20); Blood Urea Nitrogen 14 mg/dL (9-16); Calcium 8.5 mg/dL (8.4-10.2); Carbon Dioxide 26 mmol/L (22-29); Chloride 93 mmol/L (96-108); Creatinine Clr Calc Pharmacy 69.3; Estimated Glomerular Filt Rate > 60; Glucose Random 288 mg/dL (60-115); Potassium 3.8 mmol/L (3.3-5.1); Sodium 134 mmol/L (135-145)
[2022-08-13 11:30] LABS: Glucose, Whole Blood 238 mg/dL (60-115)
[2022-08-13] MEDS: Acetaminophen 1,000 MG/100 ML PIGGYBACK 400 MG IV (12:51)
[2022-08-13 12:55] LABS: Troponin-I High Sensitivity 119.8 ng/L (<3.5-35.0)
[2022-08-13 12:59] LABS: ABG Base Excess 8.1 mmol/L; ABG HCO3 30 mmol/L (22-26); ABG pCO2 36 mmHg (32-45); ABG pH 7.53 (7.35-7.45); ABG pO2 62 mmHg (83-108)
[2022-08-13 13:17] LABS: Ammonia 34 umol/L (13-55)
[2022-08-13] MEDS: Ketorolac Tromethamine 15 MG/ML VIAL IVPUSH (13:39)
--- NOTE | 2022-08-13 13:48 | PM.EVENT ---
Event Note Date of Service: 08/13/22 Event Note: Addiction consult placed upon admission Chart has been reviewed daily--patient not appropriate for addiction consult at this time due to medical acuity. Will continue to follow and see when appropriate. Time Spent With Patient Time: Total time managing care of this patient today ____ minutes.
[2022-08-13] MEDS: Doxycycline Hyclate 100 MG in 0.9 % Sodium Chloride 250 ML 166.67 MG IV (13:51)
[2022-08-13 14:22] LABS: INTERNATIONAL NORM RATIO 1.5 (0.9-1.1); Prothrombin Time 17.4 SEC (10.0-13.1)
[2022-08-13 14:25] LABS: Partial Thromboplastin Time 31.2 SEC (26.0-36.4)
--- NOTE | 2022-08-13 15:59 | PC.NURSE ---
Informed MD of pt's change in assessment and vitals. Medical team assessed MD at bedside. Interventions completed w/ + effect. Sitter at bedside for pt safety. Pt refusing care at times.
[2022-08-13 17:09] LABS: Glucose, Whole Blood 167 mg/dL (60-115)
[2022-08-13] MEDS: Digoxin 0.5 MG/2 ML AMPUL 0.25 MG IVPUSH (17:29)
[2022-08-13 20:00] LABS: Glucose, Whole Blood 192 mg/dL (60-115)
[2022-08-13 21:34] LABS: Vancomycin Random 17.4 mcg/mL (15-20)
[2022-08-13] MEDS: vancomycin HCL 750 MG in 0.9 % Sodium Chloride 250 ML 265 MG IV (22:10)
[2022-08-14] VITALS (17 sets, daily range): BP systolic 99–146; BP diastolic 45–73; PULSE 82–112; RESP 12–30; TEMP 36.2–39.2; O2SAT 89–100
[2022-08-14] MEDS: Acetaminophen 325 MG TABLET 650 MG PO ×2 (01:14→21:37)
[2022-08-14] MEDS: Doxycycline Hyclate 100 MG in 0.9 % Sodium Chloride 250 ML 166.67 MG IV (01:14)
[2022-08-14] MEDS: Digoxin 0.5 MG/2 ML AMPUL 0.25 MG IVPUSH (01:14)
--- NOTE | 2022-08-14 01:17 | PM.EVENT ---
Event Note Date of Service: 08/14/22 Event Note: Patient developed fever overnight, tachypneic, blood pressure still on the soft side, Will treat with Tylenol, repeat blood cultures, and will give 1 L of LR to support BP Time Spent With Patient Time: Total time managing care of this patient today ____ minutes.
[2022-08-14 01:20] LABS: ABG Refer to POC result
--- NOTE | 2022-08-14 01:30 | PC.NURSE ---
Pt w/ labored breathing, desatting ocassionally. 2L n/c place. c/o being cold,Tempt 102.5 rectally. Pt is becoming lethargic. MD Brooks notified and [employer] supervisor notified. Both at bedside, ordered labs. PRN po tylenol given. BP 144/67, HR 109. full time babysitter at bedside. Pt also continues to be incontinent of loose liq yellow stools. Cleaned multiple times.
[2022-08-14] MEDS: Lactated Ringers 1,000 ML 100 ML IVCONT (01:33)
[2022-08-14 02:06] LABS: Lactic Acid 2.8 mmol/L (0.5-2.0)
--- NOTE | 2022-08-14 03:00 | PC.NURSE ---
Pt is now becoming very restless/irritable and agitated. Keeps trying to get OOB, pulling at lines and hallucinating. CIWA completed, see documentation. Temp now 100.5 rectal, HR 102 BP 130/72. MD Foreman notified. slurry tank operator at bedside and camera in room.
[2022-08-14 03:47] LABS: Reflex Lactate? Lactic Acid Added
[2022-08-14 04:20] LABS: PLT CLUMP 1
[2022-08-14 04:22] LABS: Hemoglobin 12.2 g/dl (14.0-18.0); Mean Corpuscular Hemoglobin 29.7 pg (27.0-33.0); Mean Platelet Volume 9.5 fL (9.4-12.4); Red Blood Count 4.11 X10*6/uL (4.60-5.80); Red Cell Distribution Width 13.2 % (11.0-16.0)
[2022-08-14 04:25] LABS: Platelet Count 145 X10*3/uL (160-400); White Blood Count 15.9 X10*3/uL (4.8-10.8)
[2022-08-14 04:36] LABS: ~Lactic Acid-LAB USE ONLY 2.5 mmol/L (0.5-2.0)
[2022-08-14 04:39] LABS: Anion Gap 18 (12-20); Blood Urea Nitrogen 20 mg/dL (9-16); Calcium 8.1 mg/dL (8.4-10.2); Carbon Dioxide 26 mmol/L (22-29); Chloride 98 mmol/L (96-108); Estimated Glomerular Filt Rate 55; Glucose Random 189 mg/dL (60-115); Potassium 3.3 mmol/L (3.3-5.1); Sodium 139 mmol/L (135-145)
[2022-08-14] MEDS: Piperacillin Sodium/Tazobactam 3.375 GM in 0.9 % Sodium Chloride 50 ML IV ×3 (04:41→21:54)
[2022-08-14] MEDS: Haloperidol Lactate 5 MG/ML VIAL 2.5 MG IM (04:54)
[2022-08-14 06:16] LABS: Reflex Lactate? 2 Y
--- NOTE | 2022-08-14 06:44 | HE.PHANOTE ---
RE VANCO SCR UP TO 1.30 TODAY FROM 1.0 ON 08/12. WILL DECREASE FREQUENCY AND CHANGE DOSE TO 1250MG Q24H. RANDOM AFTER ONE DOSE 08/15 @1999 PRATIBHA
[2022-08-14 07:41] LABS: Glucose, Whole Blood 171 mg/dL (60-115)
[2022-08-14] MEDS: Insulin Lispro 100 UNIT/ML 3 ML VIAL SUBCUT ×3 (08:07→21:37)
[2022-08-14 08:39] LABS: Alanine Aminotransferase 48 U/L (0-40); Albumin Level 3.1 g/dL (3.5-5.0); Alkaline Phosphatase 55 U/L (39-117); Aspartate Amino Transferase 102 U/L (5-37); Bilirubin Direct 0.4 mg/dL (0.0-0.5); Bilirubin Total 0.9 mg/dL (0.0-1.0); Magnesium 1.1 mg/dL (1.6-2.6); Total Protein 5.5 g/dL (6.5-8.0)
--- NOTE | 2022-08-14 08:53 | W.PM.CCCN ---
History of Present Illness Data of Consult Service Date: 08/14/22 Requesting physician: Suzanne Young Primary Care Provider: MD YURIY Rodriguez Reason for consult: Altered mental status 66-year-old gentleman with underlying history of alcohol abuse with multiple admissions for alcohol withdrawal, diastolic heart failure, COPD, diabetes mellitus, vascular bypass, prior history renal failure requiring temporary hemodialysis admitted on 08/11/2022 with weakness and alcohol withdrawal. Patient was started on phenobarbital protocol. Hospital course significant for recurrent fevers with no septic source associated with worsening of confusion with febrile episodes; also worsening renal function, development of rhabdomyolysis with no clear muscle group compression. Review of Systems Review of Systems: Yes Unobtainable due to mental status Neurologic: Reports confusion ( but answers simple questions) Psychiatric: Psychiatric: Reports confusion ( but answers simple questions) [facility] Past Medical History Medical History Acute diastolic CHF (congestive heart failure) Acute hyponatremia Acute respiratory failure with hypoxia Acute respiratory failure with hypoxia LAUREN (acute kidney injury) Alcohol abuse Anxiety Bilateral pleural effusion Cellulitis, scrotum Contusion of rib on left side COPD (chronic obstructive pulmonary disease) Diabetes mellitus type 1 Diastolic dysfunction Diastolic heart failure DMII (diabetes mellitus, type 2) Electrolyte abnormality Elevated troponin Fall Fall Fungal dermatitis Gram-positive bacteremia HLD (hyperlipidemia) Hypertension Metabolic acidosis Metabolic acidosis Nonrheumatic aortic (valve) stenosis Obesity Pneumonia Rhabdomyolysis Family History Family History Father Diabetes Mother Diabetes Surgical History Surgical History H/O elbow surgery H/O shoulder surgery History of hydrocelectomy S/P TURP Social History Social History Household Members: None Housing: Apartment Do you presently have visiting nurse or other home services: No Unable to assess alcohol history related to: Refusing to respond Alcohol intake: current Alcohol intake frequency: 3 or more drinks per day Alcohol type: hard liquor Patient Tobacco Use Status: Former Tobacco user Quit Date: 05/02/22 Tobacco use type: Cigar Years Smoked: 50 e-Cigarette/Vaping Use: Former Use Second Hand Smoke Exposure: No Advance Directives Date on File: 10/11/20 service: No Current occupational status: unemployed and disabled Meds Allergies Allergy/AdvReac Type Severity Reaction Status Date / Time environmental allergies Allergy Sneezing Verified 07/08/22 08:40 Active Medications: Current Medications Acetaminophen (Acetaminophen 325 Mg Tablet) 650 mg PO Q6H PRN PRN Reason: Pain, Mild (Pain Scale 1-3) Last Admin: 08/14/22 01:14 Dose: 650 mg Albuterol Sulfate (Albuterol Sulfate 90 Mcg 8 Gm Inhaler) 2 puff INHALE Q4H PRN PRN Reason: Wheezing Aspirin (Aspirin Enteric Coated 81 Mg Tablet.Dr) 81 mg PO DAILY [facility] Last Admin: 08/13/22 08:29 Dose: 81 mg Docusate Sodium (Docusate Sodium 100 Mg Capsule) 100 mg PO DAILY PRN PRN Reason: Constipation Enoxaparin Sodium (Enoxaparin Sodium 40 Mg/0.4 Ml Syringe) 40 mg SUBCUT Q24H [facility] Last Admin: 08/13/22 05:32 Dose: 40 mg Folic Acid (Folic Acid 1 Mg Tablet) 1 mg PO DAILY [facility] Last Admin: 08/13/22 08:29 Dose: 1 mg Glucose (Glucose Gel 15 Gm Gel..Gram.) 15 gm PO Q15M PRN; Protocol PRN Reason: per Hypoglycemia Standing Ord. Dextrose (D10) 250 mls @ 750 mls/hr IV Q15M PRN; Protocol PRN Reason: per Hypoglycemia Standing Ord. Piperacillin Sod/Tazobactam (Sod 3.375 gm/ Sodium Chloride) 50 mls @ 100 mls/hr IV Q6H [facility] Last Infusion: 08/14/22 05:27 Dose: Infused Lactated Ringer's (Lr) 1,000 mls @ 200 mls/hr IVCONT .Q5H [facility] Last Admin: 08/14/22 07:44 Dose: Not Given Doxycycline Hyclate 100 mg/ (Sodium Chloride) 250 mls @ 166.67 mls/hr IV Q12H [facility] Last Infusion: 08/14/22 03:11 Dose: Infused Vancomycin HCl 1,250 mg/ (Sodium Chloride) 250 mls @ 166.667 mls/hr IV Q24H [facility] Magnesium Sulfate (Magnesium Sulfate/H2o) 2 gm in 50 mls @ 25 mls/hr IV ONCE ONE Stop: 08/14/22 10:34 Insulin Human Lispro (Insulin Lispro 100 Unit/Ml 3 Ml Vial) 0 unit SUBCUT QIDACHS [facility]; Protocol Last Admin: 08/14/22 08:07 Dose: 2 unit Multivitamins/Vitamin C (Multivitamin Tablet) 1 tab PO DAILY [facility] Last Admin: 08/13/22 08:29 Dose: 1 tab Nystatin (Nystatin Powder 15 Gm Bottle) 1 appl TOPICAL BID [facility]; Protocol Last Admin: 08/13/22 21:10 Dose: Not Given Omeprazole (Omeprazole 20 Mg Capsule.Dr) 20 mg PO BID@0630,1630 [facility] Last Admin: 08/14/22 04:42 Dose: Not Given Ondansetron HCl (Ondansetron Hcl 4 Mg/2 Ml Vial) 4 mg IVPUSH Q8H PRN PRN Reason: Nausea and Vomiting Oxycodone HCl (Oxycodone Hcl Immed Release 5 Mg Tablet) 5 mg PO Q6H PRN PRN Reason: severe pain Last Admin: 08/12/22 14:45 Dose: 5 mg Pharmacy Consult (Consult Rx Etoh Phenob Im/Po) 1 each MISCELLANE ONCE PRN; Protocol PRN Reason: Consult order Pharmacy Consult (Consult Rx Perform Med Rec) 1 each MISCELLANE ONCE PRN PRN Reason: Consult order Pharmacy Consult (Consult Rx Vancomycin Dosing) 1 each MISCELLANE DAILY PRN PRN Reason: Consult order Sodium Chloride (0.9 % Sodium Chloride Flush 3 Ml Syringe) 3 ml IVFLUSH QSHIFT [facility] Last Admin: 08/14/22 07:45 Dose: Not Given Tamsulosin HCl (Tamsulosin Hcl 0.4 Mg Capsule) 0.4 mg PO DAILY@1700 [facility] Last Admin: 08/13/22 17:02 Dose: Not Given Thiamine HCl (Thiamine Hcl 100 Mg Tablet) 100 mg PO DAILY [facility] Last Admin: 08/13/22 08:29 Dose: 100 mg Home Medications Medication Instructions Recorded Confirmed Last Taken Type albuterol sulfate 90 mcg/actuation 2 puff inhalation Q4H PRN Wheezing 12/29/20 08/11/22 10/06/21 History aerosol inhaler simvastatin 20 mg tablet 1 tab PO BEDTIME 12/29/20 08/11/22 10/05/21 History thiamine HCl (vitamin B1) 100 mg 1 tab PO BEDTIME 12/29/20 08/11/22 10/05/21 History tablet aspirin 81 mg tablet,delayed 1 tab PO DAILY 02/04/21 08/11/22 12/11/21 History release buspirone 5 mg tablet 5 mg PO BID 02/04/21 08/11/22 12/11/21 History ramelteon 8 mg tablet 1 tab PO BEDTIME 05/12/21 08/11/22 10/05/21 History tamsulosin 0.4 mg capsule 1 cap PO DAILY@1700 05/12/21 08/11/22 10/06/21 History omeprazole 20 mg capsule,delayed 1 cap PO BID@0630,1630 06/01/21 08/11/22 10/06/21 History release gabapentin 300 mg capsule 300 mg PO BEDTIME 10/06/21 08/11/22 10/05/21 History multivitamin 1 tab PO DAILY 12/11/21 08/11/22 Unknown History folic acid 1 mg tablet 1 tab PO BEDTIME 03/16/22 08/11/22 Unknown History celecoxib 50 mg capsule 1 cap PO BID 07/04/22 08/11/22 Unknown History Physical Exam Vital Signs: Vital Signs: Last Vital Signs Temp 97.7 F 08/14/22 07:00 Pulse 112 H 08/14/22 07:00 Resp 22 H 08/14/22 07:00 BP 123/57 L 08/14/22 07:00 Pulse Ox 89 L 08/14/22 07:00 O2 Del Method Nasal Cannula 08/14/22 07:00 O2 Flow Rate 2 08/14/22 07:00 BMI result Body Mass Index 33.4 Const: General: no acute distress, alert, awake and confusion ( but answers simple questions) Orientation/consciousness: confusion ( but answers simple questions) Eyes: Sclerae: sclerae normal EOM: EOMs intact bilaterally Neck: Neck: Yes no lymphadenopathy, Yes trachea midline and Yes supple Resp: Effort & Inspection: normal respiratory effort and no respiratory distress Auscultation: clear to auscultation bilaterally Cardio: Rate: tachycardic Rhythm: regular rhythm Heart sounds: no gallops, no murmurs and no rubs GI: Palpation (GI): Soft to palpation and Other GI palpation findings present ( Nontender) Auscultation: normal bowel sounds Neuro: General: confusion ( but answers simple questions) Extrem: General: Yes no pedal edema, No clubbing and No cyanosis Results Labs 08/14/22 04:11 08/14/22 04:11 Labs: Short CBC 08/14/22 Range/Units 04:11 WBC 15.9 H (4.8-10.8) X10*3/uL Hgb 12.2 L (14.0-18.0) g/dl Hct 37.0 L (42.0-52.0) % Plt Count 145 L (160-400) X10*3/uL BMP 08/13/22 08/13/22 08/14/22 11:04 11:04 04:11 Sodium 134 L 139 Potassium 3.8 3.3 Chloride 93 L 98 Carbon Dioxide 26 26 BUN 14 20 H Creatinine 1.20 Cancelled 1.30 Calcium 8.5 8.1 L Cardiac Enzymes 08/14/22 Range/Units 04:11 Total Creatine Kinase 1876 H (38-174) U/L Liver Function 08/14/22 Range/Units 04:11 Total Bilirubin 0.9 (0.0-1.0) mg/dL Direct Bilirubin 0.4 (0.0-0.5) mg/dL AST 102 H (5-37) U/L ALT 48 H (0-40) U/L Alkaline Phosphatase 55 (39-117) U/L Albumin 3.1 L (3.5-5.0) g/dL Microbiology Microbiology Results: Microbiology 08/12/22 20:43 Blood - Venous Blood Culture - Preliminary No growth after 24 hours. 08/12/22 20:43 Blood - Venous Blood Culture - Preliminary No growth after 24 hours. Assessment and Plan (1) Acute encephalopathy: Status: Acute (2) Rhabdomyolysis: Status: Acute Plan Impression: 66-year-old gentleman with underlying multiple medical issues, now with recurrent fevers with no clear septic source and associated worsening mental status with febrile episodes, also acute kidney injury and rhabdomyolysis. No large muscle compartment syndrome noted on physical exam. recently on buspirone and phenobarbital. Possible spectrum of a serotonin syndrome. Recommendations: Supportive measures, IV fluids, no psychoactive medications unless mandatory for acute agitation. monitor CPK / electrolytes. At this time does not require intensive care level of service. Please notify for re-evaluation, if patient's condition changes. Case discussed with Claudine Young N.P. Time Spent With Patient Time: Total time managing care of this patient today ____ minutes.
[2022-08-14 09:17] LABS: ABG Base Excess 7.4 mmol/L; ABG HCO3 30 mmol/L (22-26); ABG pCO2 37 mmHg (32-45); ABG pH 7.51 (7.35-7.45); ABG pO2 67 mmHg (83-108)
[2022-08-14] MEDS: Magnesium Sulfate/H2O 2 GM/50 ML PIGGYBACK IV ×2 (09:25→19:57)
[2022-08-14] MEDS: Nystatin Powder 15 GM BOTTLE 1 APPL TOPICAL ×2 (09:29→20:01)
[2022-08-14 10:12] LABS: ABG Refer to POC result
[2022-08-14 10:54] LABS: INTERNATIONAL NORM RATIO 1.5 (0.9-1.1); Prothrombin Time 17.9 SEC (10.0-13.1)
[2022-08-14 11:08] LABS: ~Lactic Acid-LAB USE ONLY 2.7 mmol/L (0.5-2.0)
[2022-08-14 11:43] LABS: Phosphorus 2.5 mg/dL (2.7-4.5)
[2022-08-14] MEDS: Albuterol/Iprat 2.5/0.5MG 3 ML AMPUL.NEB INHALE ×2 (11:45→18:08)
--- NOTE | 2022-08-14 12:02 | P.PNIM_ITS ---
Subjective Subjective Date of Service: 08/14/22 Interval History: seen and examined this morning follow up for fever patient answers to name and says he feels good, but doesn't open eyes and falls back to sleep unable to obtain full ROS Physical Exam Vital Signs: Vital Signs: Last Vital Signs Temp 97.7 F 08/14/22 07:00 Pulse 112 H 08/14/22 11:48 Resp 20 08/14/22 11:48 BP 123/57 L 08/14/22 07:00 Pulse Ox 89 L 08/14/22 07:00 O2 Del Method Nasal Cannula 08/14/22 07:00 O2 Flow Rate 2 08/14/22 07:00 BMI result Body Mass Index 33.4 Const: Other: answers to name but doesn't open eyes; lethargic General: ill appearing and lethargic Nutritional Appearance: overweight Orientation/consciousness: oriented to person and lethargic HEENT: Other: dry MM Resp: Other: expiratory wheeze Effort & Inspection: tachypneic Cardio: Rate: tachycardic GI: Inspection: No distended Palpation (GI): Soft to palpation and nontender : Other: mccann in place Skin: Other: no skin rash noted Neuro: Other: difficult to assess, able to move all extremities. no focal deficits appreciated General: oriented to person Extrem: Other: calves soft, nontender; no swelling Objective Data Active Medications Acetaminophen (Acetaminophen 325 Mg Tablet) 650 mg PO Q6H PRN PRN Reason: Pain, Mild (Pain Scale 1-3) Last Admin: 08/14/22 01:14 Dose: 650 mg Documented By: AMARILIS Albuterol Sulfate (Albuterol Sulfate 90 Mcg 8 Gm Inhaler) 2 puff INHALE Q4H PRN PRN Reason: Wheezing Albuterol/Ipratropium (Albuterol/Iprat 2.5/0.5mg 3 Ml Ampul.Neb) 3 ml INHALE RQ6H [facility] Last Admin: 08/14/22 11:45 Dose: 3 ml Documented By: JENIFFER Aspirin (Aspirin Enteric Coated 81 Mg Tablet.) 81 mg PO DAILY [facility] Last Admin: 08/13/22 08:29 Dose: 81 mg Documented By: GINGER Docusate Sodium (Docusate Sodium 100 Mg Capsule) 100 mg PO DAILY PRN PRN Reason: Constipation Enoxaparin Sodium (Enoxaparin Sodium 40 Mg/0.4 Ml Syringe) 40 mg SUBCUT Q24H [facility] Last Admin: 08/13/22 05:32 Dose: 40 mg Documented By: OTILIA Folic Acid (Folic Acid 1 Mg Tablet) 1 mg PO DAILY [facility] Last Admin: 08/14/22 09:26 Dose: Not Given Documented By: SAVANNAH Non-Admin Reason: NPO Glucose (Glucose Gel 15 Gm Gel..Gram.) 15 gm PO Q15M PRN; Protocol PRN Reason: per Hypoglycemia Standing Ord. Dextrose (D10) 250 mls @ 750 mls/hr IV Q15M PRN; Protocol PRN Reason: per Hypoglycemia Standing Ord. Piperacillin Sod/Tazobactam (Sod 3.375 gm/ Sodium Chloride) 50 mls @ 100 mls/hr IV Q6H [facility] Last Admin: 08/14/22 11:12 Dose: 100 mls/hr Documented By: SAVANNAH Lactated Ringer's (Lr) 1,000 mls @ 200 mls/hr IVCONT .Q5H [facility] Last Infusion: 08/14/22 10:47 Dose: 0 mls/hr Documented By: SAVANNAH Doxycycline Hyclate 100 mg/ (Sodium Chloride) 250 mls @ 166.67 mls/hr IV Q12H [facility] Last Infusion: 08/14/22 03:11 Dose: 0 mls/hr Documented By: AMARILIS Vancomycin HCl 1,250 mg/ (Sodium Chloride) 250 mls @ 166.667 mls/hr IV Q24H [facility] Phytonadione 5 mg/ Sodium (Chloride) 50.5 mls @ 50.5 mls/hr IV ONCE ONE Stop: 08/14/22 12:11 Insulin Human Lispro (Insulin Lispro 100 Unit/Ml 3 Ml Vial) 0 unit SUBCUT QIDACHS [facility]; Protocol Last Admin: 08/14/22 08:07 Dose: 2 unit Documented By: SAVANNAH Multivitamins/Vitamin C (Multivitamin Tablet) 1 tab PO DAILY [facility] Last Admin: 08/14/22 09:28 Dose: Not Given Documented By: SAVANNAH Non-Admin Reason: NPO Nystatin (Nystatin Powder 15 Gm Bottle) 1 appl TOPICAL BID [facility]; Protocol Last Admin: 08/14/22 09:29 Dose: 1 appl Documented By: SAVANNAH Omeprazole (Omeprazole 20 Mg Capsule.Dr) 20 mg PO BID@0630,1630 [facility] Last Admin: 08/14/22 04:42 Dose: Not Given Documented By: AMARILIS Non-Admin Reason: NPO Ondansetron HCl (Ondansetron Hcl 4 Mg/2 Ml Vial) 4 mg IVPUSH Q8H PRN PRN Reason: Nausea and Vomiting Oxycodone HCl (Oxycodone Hcl Immed Release 5 Mg Tablet) 5 mg PO Q6H PRN PRN Reason: severe pain Last Admin: 08/12/22 14:45 Dose: 5 mg Documented By: CHUCKIE Pharmacy Consult (Consult Rx Etoh Phenob Im/Po) 1 each MISCELLANE ONCE PRN; Protocol PRN Reason: Consult order Pharmacy Consult (Consult Rx Perform Med Rec) 1 each MISCELLANE ONCE PRN PRN Reason: Consult order Pharmacy Consult (Consult Rx Vancomycin Dosing) 1 each MISCELLANE DAILY PRN PRN Reason: Consult order Sodium Chloride (0.9 % Sodium Chloride Flush 3 Ml Syringe) 3 ml IVFLUSH QSHIFT [facility] Last Admin: 08/14/22 07:45 Dose: Not Given Documented By: SAVANNAH Non-Admin Reason: IV Running Tamsulosin HCl (Tamsulosin Hcl 0.4 Mg Capsule) 0.4 mg PO DAILY@1700 [facility] Last Admin: 08/13/22 17:02 Dose: Not Given Documented By: GINGER Non-Admin Reason: Patient Refused Thiamine HCl (Thiamine Hcl 100 Mg Tablet) 100 mg PO DAILY [facility] Last Admin: 08/14/22 09:29 Dose: Not Given Documented By: SAVANNAH Non-Admin Reason: NPO Labs 08/14/22 04:11 08/14/22 04:11 Labs: Laboratory Results - last 24 hr 08/13/22 08/13/22 08/13/22 12:19 12:50 13:02 MCV MCH MCHC RDW Plt Count MPV Absolute Nucleated RBC Nucleated RBC % (auto) PT INR APTT O2 Saturation 93.0 ABG pH at Pt Temp 7.53 H ABG pCO2 at Pt Temp 36 ABG pO2 at Pt Temp 62 L ABG HCO3 30 H ABG Base Excess (Actual) 8.1 Anion Gap Estim Creat Clear Calc Estimated GFR POC Glucose Random Glucose Lactic Acid Lactic Acid F/U @ 2Hr Lactic Acid F/U @ 4Hr Calcium Phosphorus Magnesium Total Bilirubin Direct Bilirubin AST ALT Alkaline Phosphatase Ammonia 34 Total Creatine Kinase Troponin I High Sens 119.8 H* D Total Protein Albumin Random Vancomycin 08/13/22 08/13/22 08/13/22 14:04 17:05 19:54 MCV MCH MCHC RDW Plt Count MPV Absolute Nucleated RBC Nucleated RBC % (auto) PT 17.4 H INR 1.5 H APTT 31.2 O2 Saturation ABG pH at Pt Temp ABG pCO2 at Pt Temp ABG pO2 at Pt Temp ABG HCO3 ABG Base Excess (Actual) Anion Gap Estim Creat Clear Calc Estimated GFR POC Glucose 167 H 192 H Random Glucose Lactic Acid Lactic Acid F/U @ 2Hr Lactic Acid F/U @ 4Hr Calcium Phosphorus Magnesium Total Bilirubin Direct Bilirubin AST ALT Alkaline Phosphatase Ammonia Total Creatine Kinase Troponin I High Sens Total Protein Albumin Random Vancomycin 08/13/22 08/14/22 08/14/22 20:57 01:39 04:11 MCV 90.0 MCH 29.7 MCHC 33.0 RDW 13.2 Plt Count 145 L MPV 9.5 Absolute Nucleated RBC 0.000 Nucleated RBC % (auto) 0.0 PT INR APTT O2 Saturation ABG pH at Pt Temp ABG pCO2 at Pt Temp ABG pO2 at Pt Temp ABG HCO3 ABG Base Excess (Actual) Anion Gap Estim Creat Clear Calc Estimated GFR POC Glucose Random Glucose Lactic Acid 2.8 H* Lactic Acid F/U @ 2Hr Lactic Acid F/U @ 4Hr Calcium Phosphorus Magnesium Total Bilirubin Direct Bilirubin AST ALT Alkaline Phosphatase Ammonia Total Creatine Kinase Troponin I High Sens Total Protein Albumin Random Vancomycin 17.4 08/14/22 08/14/22 08/14/22 04:11 04:11 07:06 MCV MCH MCHC RDW Plt Count MPV Absolute Nucleated RBC Nucleated RBC % (auto) PT INR APTT O2 Saturation ABG pH at Pt Temp ABG pCO2 at Pt Temp ABG pO2 at Pt Temp ABG HCO3 ABG Base Excess (Actual) Anion Gap 18 Estim Creat Clear Calc 64.0 Estimated GFR 55 POC Glucose 171 H Random Glucose 189 H Lactic Acid Lactic Acid F/U @ 2Hr 2.5 H* Lactic Acid F/U @ 4Hr Calcium 8.1 L Phosphorus 2.5 L Magnesium 1.1 L* Total Bilirubin 0.9 Direct Bilirubin 0.4 AST 102 H ALT 48 H Alkaline Phosphatase 55 Ammonia Total Creatine Kinase 1876 H Troponin I High Sens Total Protein 5.5 L Albumin 3.1 L Random Vancomycin 08/14/22 08/14/22 08/14/22 09:08 10:41 10:41 MCV MCH MCHC RDW Plt Count MPV Absolute Nucleated RBC Nucleated RBC % (auto) PT 17.9 H INR 1.5 H APTT O2 Saturation 94.0 ABG pH at Pt Temp 7.51 H ABG pCO2 at Pt Temp 37 ABG pO2 at Pt Temp 67 L ABG HCO3 30 H ABG Base Excess (Actual) 7.4 Anion Gap Estim Creat Clear Calc Estimated GFR POC Glucose Random Glucose Lactic Acid Lactic Acid F/U @ 2Hr Lactic Acid F/U @ 4Hr 2.7 H* Calcium Phosphorus Magnesium Total Bilirubin Direct Bilirubin AST ALT Alkaline Phosphatase Ammonia Total Creatine Kinase Troponin I High Sens Total Protein Albumin Random Vancomycin Microbiology Microbiology Results: Microbiology 08/12/22 20:43 Blood Culture - Preliminary Blood - Venous No growth after 24 hours. 08/12/22 20:43 Blood Culture - Preliminary Blood - Venous No growth after 24 hours. Assessment and Plan (1) Acute encephalopathy: Status: Acute Plan 66yo M with AUD presenting with weakness, admitted for EtOH withdrawal, hypoNa, and hypoK developed fever overnight on 08/12 SIRS recurrent fever - met sirs criteria with fever, tachycardia and now with leukocytosis. fever as high as 105 LA rechecked overnight at was 2.5. received fluid bolus no sepsis as no source of infection identified at this time RPP negative, Chest CT/abdominal CT no infectious source, UA negative will continue empiric abx - vanc, zosyn and doxycycline for now First set of blood cultures negative, repeat pending plan for LP today possible drug related fever - all psych meds on hold ID consult pending Acute toxic metabolic encephalopathy work up ongoing. likely multifactorial due to fever, etoh withdrawal, electrolyt e abnormalities, medication brain CT negative ABG without CO2 retention sedating meds on hold neurology consult pending Mild rhabdo CPK trending up to 1800 ? r/t rigors from fever; ?possible drug related continue IVF statin on hold follow CPK Hypomagnesemia replace and follow Transaminitis belly CT with steatohepatitis; h/o etoh abuse hold statin follow LFTs paroxysmal atrial fibrillation appears to be having short intermittent episodes of afib, no previous diagnosis of afib cardiology consult pending no AC at this time due to plan for LP today EtOH withdrawal phenobarbitol on hold for encephalopathy/lethargy - continue thiamine, folic acid supplementation coagulopathy INR 1.5 ?r/t liver dz IV vit K and FFP prior to LP hypoNa - suspect hypovolemia + beer potomania; resolved hypoK - repleted Elevated troponin likely demand from tachycardia repeat trending down AUD - B vitamins, Addiction Med consult chronic HFpEF, not in acute exacerbation - monitor volume status after receiving IVF COPD, not in acute exacerbation - prn albuterol DM2, A1c 7.7 (07/06/22) - olivia-dose lispro VTE ppx: LMWH on hold for LP today dispo: TBD, seen by PT - rec STR when medically stable access - difficult stick, requiring multiple IV medications - plan for midline placement today In my clinical judgment, the patient requires continued inpatient hospitalization for the following reasons: fever, encephalopathy, requiring IV abx, atrial fibrillation, specialist consultation and close monitoring Time Spent With Patient Time: Total time managing care of this patient today ____ minutes. Quality Stroke Does the patient have a stroke diagnosis?: No VTE Prior VTE?: No VTE Risk Level:: Medical - low VTE Device Contraindication: Treatment Not Indicated VTE Drug Contraindication: Treatment Not Indicated
[2022-08-14 12:03] LABS: Glucose, Whole Blood 173 mg/dL (60-115)
[2022-08-14] MEDS: Phytonadione (Vit K1) 5 MG in 0.9 % Sodium Chloride 50 ML 50.5 MG IV (12:04)
[2022-08-14] MEDS: LORazepam 2 MG/ML VIAL 1 MG IVPUSH (15:08)
--- NOTE | 2022-08-14 15:19 | HO.PICC ---
PICC Line Insertion NPICC Diagnosis: [] Indication: [] Pertinent Labs: [] Technique: Following informed consent including risks, benefits and alternatives and using sterile technique including cap and mask, sterile gown, glove and drape, the [] arm was prepped and draped in the usual sterile fashion of full barrier technique with G. Following completion of [place] Protocol the skin and soft tissues were anesthetized with 1% Lidocaine plain. Using ultrasound guidance, [] vein access was obtained. Over an 0.018 wire through peel-away sheath, a [] PICC line was positioned. Catheter length is [] internal length, [] external length, for a total trimmed length of []. The procedure was performed in []. Tip verification was performed by Gabi Walton with Shannan 3CG. Tip located in SVC. Ultrasound was used to document vein patency and for needle entry. A formal ultrasound picture and cardiac rhythm strip was recorded. Vascular Umbrella Cutter has released the line for use and it is currently dressed with a StatLock, Tegaderm, and CHG disc. Verification has been performed for blood return and line patency. Arm Circumference: [] Equipment: [] Catheter Type: [] Lot #: []
--- NOTE | 2022-08-14 15:31 | MHC.CM.PN ---
per rounds pt not dc ready plan remanis str
[2022-08-14 16:06] LABS: Glucose CSF 120 mg/dL; Total Protein CSF 64.4 mg/dL (15-45)
[2022-08-14 16:07] LABS: CSF Appearance Clear, Colorless; CSF Tube # 2
--- NOTE | 2022-08-14 17:31 | HO.MIDLINE_ITS ---
Midline Insertion MIDLINE INSERTION Diagnosis: [] Indication: [IV access needed] Pertinent Labs: reviewed Technique: Using sterile technique including cap and mask, glove and drape, the right arm was prepped and draped in the usual sterile fashion of full barrier technique with CHG. Using ultrasound guidance, right basilic vein access was obtained on second attempt. A 20G x 8CM ST non-PASV Midline was positioned. The procedure was performed in S272. Ultrasound was used to document vein patency and for needle entry. A formal ultrasound picture was recorded. V[employer] Geosc[employer] Associate Professor has released the line for use and it is currently dressed with a StatLock, Tegaderm, and CHG disc. Verification has been performed for blood return and line patency. (OK to place midline received from Shay Price, restaurant server despite pending blood cultures and elevated WBC.) Arm Circumference: 35CM Equipment: BARD PowerGlide ST Catheter Type: 20G x 8CM Non-PASV Midline Lot #: [id number]
[2022-08-14 17:42] LABS: Cryptococcus neoformans/gattii Not Detected (Not Detect.); Enterovirus Not Detected (Not Detect.); Escherichia coli K1 Not Detected (Not Detect.); Haemophilus influenzae Not Detected (Not Detect.); Herpes simplex virus 1 Not Detected (Not Detect.); Herpes simplex virus 2 Not Detected (Not Detect.); Human herpesvirus 6 Not Detected (Not Detect.); Human parechovirus Not Detected (Not Detect.); Listeria monocytogenes Not Detected (Not Detect.); Neisseria meningitidis Not Detected (Not Detect.); Streptococcus agalactiae Not Detected (Not Detect.); Streptococcus pneumoniae Not Detected (Not Detect.); Varicella zoster virus Not Detected (Not Detect.)
[2022-08-14 19:13] LABS: Appearance CSF CLEAR; CSF Tube # 1; CSF Volume 1.5 ML; Color CSF COLORLESS; Red Blood Cell CSF 7 MM*3; White Blood Cell CSF 4 MM*3
[2022-08-14 19:20] LABS: Lymphocytes CSF 100 %
[2022-08-14 20:38] LABS: Glucose, Whole Blood 180 mg/dL (60-115)
[2022-08-14] MEDS: Heparin Sodium,Porcine Flush 50 UNITS, 0.9 % Sodium Chloride Flush 5 ML IVFLUSH (21:44)
[2022-08-14] MEDS: vancomycin HCL 1,250 MG in 0.9 % Sodium Chloride 250 ML 166.67 MG IV (22:04)
--- NOTE | 2022-08-14 23:01 | W.PM.IDCN ---
History of Present Illness Data of Consult Service Date: 08/14/22 Requesting physician: Suzanne Young Primary Care Provider: MD YURIY Rodriguez Reason for consult: fever of unknown origin He presents with one day of fever and chills He has no nausea or vomiting. He has high fever to 105 and encephalopathy. Review of Systems Review of Systems: Yes Unobtainable due to mental condition [facility] Past Medical History Medical History Acute diastolic CHF (congestive heart failure) Acute hyponatremia Acute respiratory failure with hypoxia Acute respiratory failure with hypoxia LAUREN (acute kidney injury) Alcohol abuse Anxiety Bilateral pleural effusion Cellulitis, scrotum Contusion of rib on left side COPD (chronic obstructive pulmonary disease) Diabetes mellitus type 1 Diastolic dysfunction Diastolic heart failure DMII (diabetes mellitus, type 2) Electrolyte abnormality Elevated troponin Fall Fall Fungal dermatitis Gram-positive bacteremia HLD (hyperlipidemia) Hypertension Metabolic acidosis Metabolic acidosis Nonrheumatic aortic (valve) stenosis Obesity Pneumonia Rhabdomyolysis Family History Family History Father Diabetes Mother Diabetes Surgical History Surgical History H/O elbow surgery H/O shoulder surgery History of hydrocelectomy S/P TURP Social History Social History Household Members: None Housing: Apartment Do you presently have visiting nurse or other home services: No Unable to assess alcohol history related to: Refusing to respond Alcohol intake: current Alcohol intake frequency: 3 or more drinks per day Alcohol type: hard liquor Patient Tobacco Use Status: Former Tobacco user Quit Date: 05/02/22 Tobacco use type: Cigar Years Smoked: 50 e-Cigarette/Vaping Use: Former Use Second Hand Smoke Exposure: No Advance Directives Date on File: 10/11/20 service: No Current occupational status: unemployed and disabled Meds Allergies Allergy/AdvReac Type Severity Reaction Status Date / Time environmental allergies Allergy Sneezing Verified 07/08/22 08:40 Active Medications: Current Medications Acetaminophen (Acetaminophen 325 Mg Tablet) 650 mg PO Q6H PRN PRN Reason: Pain, Mild (Pain Scale 1-3) Last Admin: 08/14/22 21:37 Dose: 650 mg Albuterol Sulfate (Albuterol Sulfate 90 Mcg 8 Gm Inhaler) 2 puff INHALE Q4H PRN PRN Reason: Wheezing Albuterol/Ipratropium (Albuterol/Iprat 2.5/0.5mg 3 Ml Ampul.Neb) 3 ml INHALE RQ6H [facility] Last Admin: 08/14/22 18:08 Dose: 3 ml Aspirin (Aspirin Enteric Coated 81 Mg Tablet.Dr) 81 mg PO DAILY [facility] Last Admin: 08/13/22 08:29 Dose: 81 mg Heparin Sodium (Porcine) 50 (units/ Sodium Chloride 5 ml) 0 units IVFLUSH TID [facility] Last Admin: 08/14/22 21:44 Dose: 50 unit Docusate Sodium (Docusate Sodium 100 Mg Capsule) 100 mg PO DAILY PRN PRN Reason: Constipation Enoxaparin Sodium (Enoxaparin Sodium 40 Mg/0.4 Ml Syringe) 40 mg SUBCUT Q24H [facility] Last Admin: 08/13/22 05:32 Dose: 40 mg Folic Acid (Folic Acid 1 Mg Tablet) 1 mg PO DAILY [facility] Last Admin: 08/14/22 09:26 Dose: Not Given Glucose (Glucose Gel 15 Gm Gel..Gram.) 15 gm PO Q15M PRN; Protocol PRN Reason: per Hypoglycemia Standing Ord. Dextrose (D10) 250 mls @ 750 mls/hr IV Q15M PRN; Protocol PRN Reason: per Hypoglycemia Standing Ord. Piperacillin Sod/Tazobactam (Sod 3.375 gm/ Sodium Chloride) 50 mls @ 100 mls/hr IV Q6H [facility] Last Infusion: 08/14/22 22:40 Dose: Infused Lactated Ringer's (Lr) 1,000 mls @ 200 mls/hr IVCONT .Q5H [facility] Last Admin: 08/14/22 18:34 Dose: Not Given Doxycycline Hyclate 100 mg/ (Sodium Chloride) 250 mls @ 166.67 mls/hr IV Q12H [facility] Last Admin: 08/14/22 15:10 Dose: Not Given Vancomycin HCl 1,250 mg/ (Sodium Chloride) 250 mls @ 166.667 mls/hr IV Q24H [facility] Last Admin: 08/14/22 22:04 Dose: 166.67 mls/hr Insulin Human Lispro (Insulin Lispro 100 Unit/Ml 3 Ml Vial) 0 unit SUBCUT QIDACHS [facility]; Protocol Last Admin: 08/14/22 21:37 Dose: 2 unit Multivitamins/Vitamin C (Multivitamin Tablet) 1 tab PO DAILY [facility] Last Admin: 08/14/22 09:28 Dose: Not Given Nystatin (Nystatin Powder 15 Gm Bottle) 1 appl TOPICAL BID [facility]; Protocol Last Admin: 08/14/22 20:01 Dose: 1 appl Omeprazole (Omeprazole 20 Mg Capsule.Dr) 20 mg PO BID@0630,1630 [facility] Last Admin: 08/14/22 18:15 Dose: Not Given Ondansetron HCl (Ondansetron Hcl 4 Mg/2 Ml Vial) 4 mg IVPUSH Q8H PRN PRN Reason: Nausea and Vomiting Oxycodone HCl (Oxycodone Hcl Immed Release 5 Mg Tablet) 5 mg PO Q6H PRN PRN Reason: severe pain Last Admin: 08/12/22 14:45 Dose: 5 mg Pharmacy Consult (Consult Rx Etoh Phenob Im/Po) 1 each MISCELLANE ONCE PRN; Protocol PRN Reason: Consult order Pharmacy Consult (Consult Rx Perform Med Rec) 1 each MISCELLANE ONCE PRN PRN Reason: Consult order Pharmacy Consult (Consult Rx Vancomycin Dosing) 1 each MISCELLANE DAILY PRN PRN Reason: Consult order Sodium Chloride (0.9 % Sodium Chloride Flush 3 Ml Syringe) 3 ml IVFLUSH QSHIFT [facility] Last Admin: 08/14/22 16:30 Dose: Not Given Tamsulosin HCl (Tamsulosin Hcl 0.4 Mg Capsule) 0.4 mg PO DAILY@1700 [facility] Last Admin: 08/14/22 18:14 Dose: Not Given Thiamine HCl (Thiamine Hcl 100 Mg Tablet) 100 mg PO DAILY [facility] Last Admin: 08/14/22 09:29 Dose: Not Given Home Medications Medication Instructions Recorded Confirmed Last Taken Type albuterol sulfate 90 mcg/actuation 2 puff inhalation Q4H PRN Wheezing 12/29/20 08/11/22 10/06/21 History aerosol inhaler simvastatin 20 mg tablet 1 tab PO BEDTIME 12/29/20 08/11/22 10/05/21 History thiamine HCl (vitamin B1) 100 mg 1 tab PO BEDTIME 12/29/20 08/11/22 10/05/21 History tablet aspirin 81 mg tablet,delayed 1 tab PO DAILY 02/04/21 08/11/22 12/11/21 History release buspirone 5 mg tablet 5 mg PO BID 02/04/21 08/11/22 12/11/21 History ramelteon 8 mg tablet 1 tab PO BEDTIME 05/12/21 08/11/22 10/05/21 History tamsulosin 0.4 mg capsule 1 cap PO DAILY@1700 05/12/21 08/11/22 10/06/21 History omeprazole 20 mg capsule,delayed 1 cap PO BID@0630,1630 06/01/21 08/11/22 10/06/21 History release gabapentin 300 mg capsule 300 mg PO BEDTIME 10/06/21 08/11/22 10/05/21 History multivitamin 1 tab PO DAILY 12/11/21 08/11/22 Unknown History folic acid 1 mg tablet 1 tab PO BEDTIME 03/16/22 08/11/22 Unknown History celecoxib 50 mg capsule 1 cap PO BID 07/04/22 08/11/22 Unknown History Physical Exam Vital Signs: Vital Signs: Last Vital Signs Temp 97.7 F 08/14/22 19:37 Pulse 107 H 08/14/22 19:37 Resp 15 08/14/22 19:37 BP 99/57 L 08/14/22 19:37 Pulse Ox 92 08/14/22 19:37 O2 Del Method Room Air 08/14/22 19:37 O2 Flow Rate 2 08/14/22 07:00 BMI result Body Mass Index 33.4 Psych: Other: confusion Results Labs 08/14/22 04:11 08/14/22 04:11 Labs: Short CBC 08/14/22 Range/Units 04:11 WBC 15.9 H (4.8-10.8) X10*3/uL Hgb 12.2 L (14.0-18.0) g/dl Hct 37.0 L (42.0-52.0) % Plt Count 145 L (160-400) X10*3/uL BMP 08/14/22 04:11 Sodium 139 Potassium 3.3 Chloride 98 Carbon Dioxide 26 BUN 20 H Creatinine 1.30 Calcium 8.1 L Cardiac Enzymes 08/14/22 Range/Units 04:11 Total Creatine Kinase 1876 H (38-174) U/L Liver Function 08/14/22 Range/Units 04:11 Total Bilirubin 0.9 (0.0-1.0) mg/dL Direct Bilirubin 0.4 (0.0-0.5) mg/dL AST 102 H (5-37) U/L ALT 48 H (0-40) U/L Alkaline Phosphatase 55 (39-117) U/L Albumin 3.1 L (3.5-5.0) g/dL Microbiology Microbiology Results: Microbiology 08/12/22 20:43 Blood - Venous Blood Culture - Preliminary No growth after 48 hours. 08/12/22 20:43 Blood - Venous Blood Culture - Preliminary No growth after 48 hours. 08/14/22 14:35 Cerebrospinal Fluid Gram Stain - Preliminary 08/14/22 14:35 Cerebrospinal Fluid CSF Examination - Final 08/14/22 14:35 Cerebrospinal Fluid Fluid Description - Final Assessment and Plan (1) Acute encephalopathy: Status: Acute There is concern over fever alcohol withdrawal ,hepatitis aspiration tick borne illness Meningitis (2) Alcohol withdrawal: Status: Acute Plan Await meningitis panel Continue Vancomycin,Zosyn and Vancomycin until blood cultures back Time Spent With Patient Time: Total time managing care of this patient today ____ minutes.
--- NOTE | 2022-08-14 23:50 | PC.NURSE ---
Pt spike a temperature of 102.8, with a blood pressure of 99/57 and heart of 107, tylynol given and Dr. Foreman notified. Will continue to monitor.
[2022-08-15] VITALS (9 sets, daily range): BP systolic 98–106; BP diastolic 53–62; PULSE 78–98; RESP 16–22; TEMP 35.7–38.4; O2SAT 93–95
[2022-08-15] MEDS: Lactated Ringers 1,000 ML 200 ML IVCONT ×2 (00:12→08:38)
[2022-08-15] MEDS: Albuterol/Iprat 2.5/0.5MG 3 ML AMPUL.NEB INHALE ×2 (00:15→19:59)
[2022-08-15] MEDS: 0.9 % Sodium Chloride Flush 3 ML SYRINGE IVFLUSH ×2 (00:31→11:51)
[2022-08-15] MEDS: Ketorolac Tromethamine 30 MG/ML VIAL IVPUSH (01:56)
[2022-08-15] MEDS: Acetaminophen Supp 650 MG SUPP.RECT PR (01:58)
[2022-08-15] MEDS: Doxycycline Hyclate 100 MG in 0.9 % Sodium Chloride 250 ML 166.67 MG IV ×2 (01:58→14:46)
--- NOTE | 2022-08-15 02:05 | PC.NURSE ---
Pt had 4bvt run on the tele monitor per [employer], Dr. Handy notified and labs ordered. Pt temp recheck is 96.2.
[2022-08-15] MEDS: Piperacillin Sodium/Tazobactam 3.375 GM in 0.9 % Sodium Chloride 50 ML IV (04:09)
[2022-08-15 07:21] LABS: Glucose, Whole Blood 183 mg/dL (60-115)
[2022-08-15] MEDS: Insulin Lispro 100 UNIT/ML 3 ML VIAL SUBCUT ×4 (08:25→20:59)
--- NOTE | 2022-08-15 09:35 | P.CNNE_ITS ---
History of Present Illness Data of Consult Service Date: 08/15/22 Primary Care Provider: Jaylen Cummings MD [facility] Reason for consult: Encephalopathy 66 years old obese man with concern for alcoholism COPD and anemia who was confused with high-grade fever with no obvious etiology found. There was no history of any recent rash or known tick bite. There was no history of any trauma. Review of Systems Review of Systems: No recent cold or flu-like illness PMFSH Past Medical History Medical History Acute diastolic CHF (congestive heart failure) Acute hyponatremia Acute respiratory failure with hypoxia Acute respiratory failure with hypoxia LAUREN (acute kidney injury) Alcohol abuse Anxiety Bilateral pleural effusion Cellulitis, scrotum Contusion of rib on left side COPD (chronic obstructive pulmonary disease) Diabetes mellitus type 1 Diastolic dysfunction Diastolic heart failure DMII (diabetes mellitus, type 2) Electrolyte abnormality Elevated troponin Fall Fall Fungal dermatitis Gram-positive bacteremia HLD (hyperlipidemia) Hypertension Metabolic acidosis Metabolic acidosis Nonrheumatic aortic (valve) stenosis Obesity Pneumonia Rhabdomyolysis Family History Family History Father Diabetes Mother Diabetes Surgical History Surgical History H/O elbow surgery H/O shoulder surgery History of hydrocelectomy S/P TURP Social History Social History Household Members: None Housing: Apartment Do you presently have visiting nurse or other home services: No Unable to assess alcohol history related to: Refusing to respond Alcohol intake: current Alcohol intake frequency: 3 or more drinks per day Alcohol type: hard liquor Patient Tobacco Use Status: Former Tobacco user Quit Date: 05/02/22 Tobacco use type: Cigar Years Smoked: 50 e-Cigarette/Vaping Use: Former Use Second Hand Smoke Exposure: No Advance Directives Date on File: 10/11/20 service: No Current occupational status: unemployed and disabled Meds Allergies Allergy/AdvReac Type Severity Reaction Status Date / Time environmental allergies Allergy Sneezing Verified 07/08/22 08:40 Active Medications: Current Medications Acetaminophen (Acetaminophen 325 Mg Tablet) 650 mg PO Q6H PRN PRN Reason: Pain, Mild (Pain Scale 1-3) Last Admin: 08/14/22 21:37 Dose: 650 mg Albuterol Sulfate (Albuterol Sulfate 90 Mcg 8 Gm Inhaler) 2 puff INHALE Q4H PRN PRN Reason: Wheezing Albuterol/Ipratropium (Albuterol/Iprat 2.5/0.5mg 3 Ml Ampul.Neb) 3 ml INHALE RQ6H [facility] Last Admin: 08/15/22 07:09 Dose: Not Given Aspirin (Aspirin Enteric Coated 81 Mg Tablet.Dr) 81 mg PO DAILY [facility] Last Admin: 08/13/22 08:29 Dose: 81 mg Heparin Sodium (Porcine) 50 (units/ Sodium Chloride 5 ml) 0 units IVFLUSH TID [facility] Last Admin: 08/14/22 21:44 Dose: 50 unit Docusate Sodium (Docusate Sodium 100 Mg Capsule) 100 mg PO DAILY PRN PRN Reason: Constipation Enoxaparin Sodium (Enoxaparin Sodium 40 Mg/0.4 Ml Syringe) 40 mg SUBCUT Q24H [facility] Last Admin: 08/13/22 05:32 Dose: 40 mg Folic Acid (Folic Acid 1 Mg Tablet) 1 mg PO DAILY [facility] Last Admin: 08/14/22 09:26 Dose: Not Given Glucose (Glucose Gel 15 Gm Gel..Gram.) 15 gm PO Q15M PRN; Protocol PRN Reason: per Hypoglycemia Standing Ord. Dextrose (D10) 250 mls @ 750 mls/hr IV Q15M PRN; Protocol PRN Reason: per Hypoglycemia Standing Ord. Piperacillin Sod/Tazobactam (Sod 3.375 gm/ Sodium Chloride) 50 mls @ 100 mls/hr IV Q6H [facility] Last Infusion: 08/15/22 05:04 Dose: Infused Lactated Ringer's (Lr) 1,000 mls @ 125 mls/hr IVCONT .Q8H [facility] Last Admin: 08/15/22 08:38 Dose: 200 mls/hr Doxycycline Hyclate 100 mg/ (Sodium Chloride) 250 mls @ 166.67 mls/hr IV Q12H [facility] Last Infusion: 08/15/22 03:44 Dose: Infused Vancomycin HCl 1,250 mg/ (Sodium Chloride) 250 mls @ 166.667 mls/hr IV Q24H [facility] Last Infusion: 08/15/22 00:05 Dose: Infused Insulin Human Lispro (Insulin Lispro 100 Unit/Ml 3 Ml Vial) 0 unit SUBCUT QIDACHS [facility]; Protocol Last Admin: 08/15/22 08:25 Dose: 2 unit Multivitamins/Vitamin C (Multivitamin Tablet) 1 tab PO DAILY [facility] Last Admin: 08/14/22 09:28 Dose: Not Given Nystatin (Nystatin Powder 15 Gm Bottle) 1 appl TOPICAL BID [facility]; Protocol Last Admin: 08/14/22 20:01 Dose: 1 appl Omeprazole (Omeprazole 20 Mg Capsule.Dr) 20 mg PO BID@0630,1630 [facility] Last Admin: 08/15/22 06:32 Dose: Not Given Ondansetron HCl (Ondansetron Hcl 4 Mg/2 Ml Vial) 4 mg IVPUSH Q8H PRN PRN Reason: Nausea and Vomiting Pharmacy Consult (Consult Rx Etoh Phenob Im/Po) 1 each MISCELLANE ONCE PRN; Protocol PRN Reason: Consult order Pharmacy Consult (Consult Rx Perform Med Rec) 1 each MISCELLANE ONCE PRN PRN Reason: Consult order Pharmacy Consult (Consult Rx Vancomycin Dosing) 1 each MISCELLANE DAILY PRN PRN Reason: Consult order Sodium Chloride (0.9 % Sodium Chloride Flush 3 Ml Syringe) 3 ml IVFLUSH QSHIFT [facility] Last Admin: 08/15/22 00:31 Dose: 3 ml Tamsulosin HCl (Tamsulosin Hcl 0.4 Mg Capsule) 0.4 mg PO DAILY@1700 [facility] Last Admin: 08/14/22 18:14 Dose: Not Given Thiamine HCl (Thiamine Hcl 100 Mg Tablet) 100 mg PO DAILY [facility] Last Admin: 08/14/22 09:29 Dose: Not Given Home Medications Medication Instructions Recorded Confirmed Last Taken Type albuterol sulfate 90 mcg/actuation 2 puff inhalation Q4H PRN Wheezing 12/29/20 08/11/22 10/06/21 History aerosol inhaler simvastatin 20 mg tablet 1 tab PO BEDTIME 12/29/20 08/11/22 10/05/21 History thiamine HCl (vitamin B1) 100 mg 1 tab PO BEDTIME 12/29/20 08/11/22 10/05/21 History tablet aspirin 81 mg tablet,delayed 1 tab PO DAILY 02/04/21 08/11/22 12/11/21 History release buspirone 5 mg tablet 5 mg PO BID 02/04/21 08/11/22 12/11/21 History ramelteon 8 mg tablet 1 tab PO BEDTIME 05/12/21 08/11/22 10/05/21 History tamsulosin 0.4 mg capsule 1 cap PO DAILY@1700 05/12/21 08/11/22 10/06/21 History omeprazole 20 mg capsule,delayed 1 cap PO BID@0630,1630 06/01/21 08/11/22 10/06/21 History release gabapentin 300 mg capsule 300 mg PO BEDTIME 10/06/21 08/11/22 10/05/21 History multivitamin 1 tab PO DAILY 12/11/21 08/11/22 Unknown History folic acid 1 mg tablet 1 tab PO BEDTIME 03/16/22 08/11/22 Unknown History celecoxib 50 mg capsule 1 cap PO BID 07/04/22 08/11/22 Unknown History Physical Exam Vital Signs: Vital Signs: Last Vital Signs Temp 96.2 F L 08/15/22 03:10 Pulse 78 08/15/22 07:31 Resp 20 08/15/22 07:31 BP 101/56 L 08/15/22 07:31 Pulse Ox 94 08/15/22 07:31 O2 Del Method Room Air 08/15/22 07:31 O2 Flow Rate 2 08/14/22 07:00 BMI result Body Mass Index 33.4 Neuro: Other: he is alert and awake with normal spontaneity of speech fluency comprehension and flat affect. He was not in distress but stated that he did not feel well. Face was symmetrical. There was no focal weakness. Leg examination revealed significant edema hyperemia and trophic changes. Results Labs 08/14/22 04:11 08/14/22 04:11 Labs: Head CT revealed mild cerebral and cerebellar atrophy. CSF protein was 60 for but meningoencephalitis panel was negative. Lyme testing was pending. Microbiology Microbiology Results: Microbiology 08/14/22 01:39 Blood - Venous Blood Culture - Preliminary No growth after 24 hours. 08/14/22 01:39 Blood - Venous Blood Culture - Preliminary No growth after 24 hours. 08/12/22 20:43 Blood - Venous Blood Culture - Preliminary No growth after 48 hours. 08/12/22 20:43 Blood - Venous Blood Culture - Preliminary No growth after 48 hours. 08/14/22 14:35 Cerebrospinal Fluid Gram Stain - Preliminary 08/14/22 14:35 Cerebrospinal Fluid CSF Examination - Final 08/14/22 14:35 Cerebrospinal Fluid Fluid Description - Final Assessment and Plan (1) Acute encephalopathy: Status: Acute 66 years old man with fever of unknown origin and associated encephalopathy. CSF protein was slightly high though not diagnostic of any particular pathogen. Infectious disease consultation was noted. This primarily seems to be a systemic illness affecting or causing meningoencephalitis. Etiology is unclear. I recommend following infectious disease lead. Time Spent With Patient Time: Total time managing care of this patient today ____ minutes. Procedures Date of Service Date of Service: 08/15/22
[2022-08-15 09:56] LABS: Hematocrit 33.3 % (42.0-52.0); Hemoglobin 10.9 g/dl (14.0-18.0); Mean Corpuscular HGB Conc 32.7 g/dl (31.0-36.0); Mean Corpuscular Hemoglobin 30.3 pg (27.0-33.0); Mean Corpuscular Volume 92.5 fL (80.0-98.0); Mean Platelet Volume 10.1 fL (9.4-12.4); Platelet Count 131 X10*3/uL (160-400); Red Cell Distribution Width 13.6 % (11.0-16.0); White Blood Count 10.4 X10*3/uL (4.8-10.8)
[2022-08-15 10:04] LABS: INTERNATIONAL NORM RATIO 1.2 (0.9-1.1); Prothrombin Time 13.8 SEC (10.0-13.1)
--- NOTE | 2022-08-15 10:13 | P.PNIM_ITS ---
Subjective Subjective Date of Service: 08/15/22 Interval History: seen and examined this morning follow up on encephalopathy, fever still with fever 102 overnight (documented in nursing notes, not vital signs) this morning patient awake and alert, oriented x3 denies pain, shortness of breath. feels good Review of Systems Review of Systems: Yes all other systems are reviewed and are negative Constitutional Constitutional: Denies chills and Reports fever(s) ENT Ears, Nose, Mouth, and Throat: Denies dizziness Cardiovascular Cardiovascular: Denies chest pain, Denies palpitations and Denies dyspnea Respiratory Respiratory: Reports cough and Denies dyspnea Gastrointestinal Gastrointestinal: Denies abdominal pain and Denies nausea Neurologic Neurologic: Denies dizziness Endocrine Endocrine: Denies palpitations Physical Exam Vital Signs: Vital Signs: Last Vital Signs Temp 96.2 F L 08/15/22 03:10 Pulse 78 08/15/22 07:31 Resp 20 08/15/22 07:31 BP 101/56 L 08/15/22 07:31 Pulse Ox 94 08/15/22 07:31 O2 Del Method Room Air 08/15/22 07:31 O2 Flow Rate 2 08/14/22 07:00 BMI result Body Mass Index 33.4 Const: General: comfortable, alert and awake Nutritional Appearance: ove [facility] Orientation/consciousness: patient oriented x3 Resp: Effort & Inspection: normal respiratory effort, able to speak in complete sentences, no respiratory distress and no use of accessory muscles Auscultation: clear to auscultation bilaterally Cardio: Rate: regular rate Heart sounds: S1 normal heart sound present and S2 normal heart sound present GI: Inspection: No distended Palpation (GI): Soft to palpation and nontende r : Other: mccann in place Neuro: General: patient oriented x3 and CN's II-XI intact bilaterally Extrem: Other: midline right arm, bruising lower arm; able to move all four extremities spontaneously General: Yes no pedal edema Objective Data Active Medications Acetaminophen (Acetaminophen 325 Mg Tablet) 650 mg PO Q6H PRN PRN Reason: Pain, Mild (Pain Scale 1-3) Last Admin: 08/14/22 21:37 Dose: 650 mg Documented By: OZORALB Albuterol Sulfate (Albuterol Sulfate 90 Mcg 8 Gm Inhaler) 2 puff INHALE Q4H PRN PRN Reason: Wheezing Albuterol/Ipratropium (Albuterol/Iprat 2.5/0.5mg 3 Ml Ampul.Neb) 3 ml INHALE RQ6H [facility] Last Admin: 08/15/22 07:09 Dose: Not Given Documented By: SHERYL Non-Admin Reason: Patient Asleep Aspirin (Aspirin Enteric Coated 81 Mg Tablet.) 81 mg PO DAILY [facility] Last Admin: 08/13/22 08:29 Dose: 81 mg Documented By: GINGER Heparin Sodium (Porcine) 50 (units/ Sodium Chloride 5 ml) 0 units IVFLUSH TID [facility] Last Admin: 08/14/22 21:44 Dose: 50 unit Documented By: MARIANELA Docusate Sodium (Docusate Sodium 100 Mg Capsule) 100 mg PO DAILY PRN PRN Reason: Constipation Enoxaparin Sodium (Enoxaparin Sodium 40 Mg/0.4 Ml Syringe) 40 mg SUBCUT Q24H [facility] Last Admin: 08/13/22 05:32 Dose: 40 mg Documented By: OTILIA Folic Acid (Folic Acid 1 Mg Tablet) 1 mg PO DAILY [facility] Last Admin: 08/14/22 09:26 Dose: Not Given Documented By: SAVANNAH Non-Admin Reason: NPO Glucose (Glucose Gel 15 Gm Gel..Gram.) 15 gm PO Q15M PRN; Protocol PRN Reason: per Hypoglycemia Standing Ord. Dextrose (D10) 250 mls @ 750 mls/hr IV Q15M PRN; Protocol PRN Reason: per Hypoglycemia Standing Ord. Piperacillin Sod/Tazobactam (Sod 3.375 gm/ Sodium Chloride) 50 mls @ 100 mls/hr IV Q6H [facility] Last Infusion: 08/15/22 05:04 Dose: 0 mls/hr Documented By: MARIANELA Lactated Ringer's (Lr) 1,000 mls @ 125 mls/hr IVCONT .Q8H [facility] Last Admin: 08/15/22 08:38 Dose: 200 mls/hr Documented By: ALETHEA Doxycycline Hyclate 100 mg/ (Sodium Chloride) 250 mls @ 166.67 mls/hr IV Q12H [facility] Last Infusion: 08/15/22 03:44 Dose: 0 mls/hr Documented By: MARIANELA Vancomycin HCl 1,250 mg/ (Sodium Chloride) 250 mls @ 166.667 mls/hr IV Q24H [facility] Last Infusion: 08/15/22 00:05 Dose: 0 mls/hr Documented By: MARIANELA Insulin Human Lispro (Insulin Lispro 100 Unit/Ml 3 Ml Vial) 0 unit SUBCUT QIDACHS [facility]; Protocol Last Admin: 08/15/22 08:25 Dose: 2 unit Documented By: ALETHEA Multivitamins/Vitamin C (Multivitamin Tablet) 1 tab PO DAILY [facility] Last Admin: 08/14/22 09:28 Dose: Not Given Documented By: SAVANNAH Non-Admin Reason: NPO Nystatin (Nystatin Powder 15 Gm Bottle) 1 appl TOPICAL BID [facility]; Protocol Last Admin: 08/14/22 20:01 Dose: 1 appl Documented By: MARIANELA Omeprazole (Omeprazole 20 Mg Capsule.Dr) 20 mg PO BID@0630,1630 [facility] Last Admin: 08/15/22 06:32 Dose: Not Given Documented By: MARIANELA Non-Admin Reason: Patient Refused Ondansetron HCl (Ondansetron Hcl 4 Mg/2 Ml Vial) 4 mg IVPUSH Q8H PRN PRN Reason: Nausea and Vomiting Pharmacy Consult (Consult Rx Etoh Phenob Im/Po) 1 each MISCELLANE ONCE PRN; Protocol PRN Reason: Consult order Pharmacy Consult (Consult Rx Perform Med Rec) 1 each MISCELLANE ONCE PRN PRN Reason: Consult order Pharmacy Consult (Consult Rx Vancomycin Dosing) 1 each MISCELLANE DAILY PRN PRN Reason: Consult order Sodium Chloride (0.9 % Sodium Chloride Flush 3 Ml Syringe) 3 ml IVFLUSH QSHIFT [facility] Last Admin: 08/15/22 00:31 Dose: 3 ml Documented By: MARIANELA Tamsulosin HCl (Tamsulosin Hcl 0.4 Mg Capsule) 0.4 mg PO DAILY@1700 [facility] Last Admin: 08/14/22 18:14 Dose: Not Given Documented By: SAVANNAH Non-Admin Reason: NPO Thiamine HCl (Thiamine Hcl 100 Mg Tablet) 100 mg PO DAILY [facility] Last Admin: 08/14/22 09:29 Dose: Not Given Documented By: SAVANNAH Non-Admin Reason: NPO Labs 08/15/22 09:46 08/14/22 04:11 Labs: Laboratory Results - last 24 hr 08/14/22 08/14/22 08/14/22 04:11 10:41 10:41 MCV MCH MCHC RDW Plt Count MPV Absolute Nucleated RBC Nucleated RBC % (auto) PT 17.9 H INR 1.5 H POC Glucose Lactic Acid F/U @ 4Hr 2.7 H* Phosphorus 2.5 L CSF Tube Number CSF Volume CSF Appearance CSF Color CSF WBC CSF RBC CSF Lymphocytes CSF Appearance (b) CSF Glucose CSF Total Protein CSF C.neoform/gat PCR CSF CMV DNA (PCR) CSF Enterovirus (PCR) CSF E. coli K1 (PCR) CSF H. influenzae (PCR) CSF HSV I (PCR) CSF HSV II (PCR) CSF HHV 6 (PCR) CSF L.monocytogenes PCR CSF N. meningitidis PCR CSF Parechovirus (PCR) CSF S. agalactiae (PCR) CSF S. pneumoniae (PCR) CSF VZV (PCR) Blood Type Antibody Screen 08/14/22 08/14/22 08/14/22 11:47 11:59 14:35 MCV MCH MCHC RDW Plt Count MPV Absolute Nucleated RBC Nucleated RBC % (auto) PT INR POC Glucose 173 H Lactic Acid F/U @ 4Hr Phosphorus CSF Tube Number CSF Volume CSF Appearance CSF Color CSF WBC CSF RBC CSF Lymphocytes CSF Appearance (b) CSF Glucose CSF Total Protein CSF C.neoform/gat PCR Not Detected CSF CMV DNA (PCR) Not Detected CSF Enterovirus (PCR) Not Detected CSF E. coli K1 (PCR) Not Detected CSF H. influenzae (PCR) Not Detected CSF HSV I (PCR) Not Detected CSF HSV II (PCR) Not Detected CSF HHV 6 (PCR) Not Detected CSF L.monocytogenes PCR Not Detected CSF N. meningitidis PCR Not Detected CSF Parechovirus (PCR) Not Detected CSF S. agalactiae (PCR) Not Detected CSF S. pneumoniae (PCR) Not Detected CSF VZV (PCR) Not Detected Blood Type O Positive Antibody Screen NEGATIVE 08/14/22 08/14/22 08/14/22 14:35 14:35 20:32 MCV MCH MCHC RDW Plt Count MPV Absolute Nucleated RBC Nucleated RBC % (auto) PT INR POC Glucose 180 H Lactic Acid F/U @ 4Hr Phosphorus CSF Tube Number 2 1 CSF Volume 1.5 CSF Appearance CLEAR CSF Color COLORLESS CSF WBC 4 CSF RBC 7 CSF Lymphocytes 100 CSF Appearance (b) Clear, Colorless CSF Glucose 120 CSF Total Protein 64.4 H CSF C.neoform/gat PCR CSF CMV DNA (PCR) CSF Enterovirus (PCR) CSF E. coli K1 (PCR) CSF H. influenzae (PCR) CSF HSV I (PCR) CSF HSV II (PCR) CSF HHV 6 (PCR) CSF L.monocytogenes PCR CSF N. meningitidis PCR CSF Parechovirus (PCR) CSF S. agalactiae (PCR) CSF S. pneumoniae (PCR) CSF VZV (PCR) Blood Type Antibody Screen 08/15/22 08/15/22 08/15/22 07:11 09:46 09:46 MCV 92.5 MCH 30.3 MCHC 32.7 RDW 13.6 Plt Count 131 L MPV 10.1 Absolute Nucleated RBC 0.000 Nucleated RBC % (auto) 0.0 PT 13.8 H INR 1.2 H POC Glucose 183 H Lactic Acid F/U @ 4Hr Phosphorus CSF Tube Number CSF Volume CSF Appearance CSF Color CSF WBC CSF RBC CSF Lymphocytes CSF Appearance (b) CSF Glucose CSF Total Protein CSF C.neoform/gat PCR CSF CMV DNA (PCR) CSF Enterovirus (PCR) CSF E. coli K1 (PCR) CSF H. influenzae (PCR) CSF HSV I (PCR) CSF HSV II (PCR) CSF HHV 6 (PCR) CSF L.monocytogenes PCR CSF N. meningitidis PCR CSF Parechovirus (PCR) CSF S. agalactiae (PCR) CSF S. pneumoniae (PCR) CSF VZV (PCR) Blood Type Antibody Screen Microbiology Microbiology Results: Microbiology 08/14/22 01:39 Blood Culture - Preliminary Blood - Venous No growth after 24 hours. 08/14/22 01:39 Blood Culture - Preliminary Blood - Venous No growth after 24 hours. 08/12/22 20:43 Blood Culture - Preliminary Blood - Venous No growth after 48 hours. 08/12/22 20:43 Blood Culture - Preliminary Blood - Venous No growth after 48 hours. 08/14/22 14:35 Gram Stain - Preliminary Cerebrospinal Fluid CSF Examination - Final Fluid Description - Final Assessment and Plan (1) Acute encephalopathy: Status: Acute (2) Alcohol withdrawal: Status: Acute Plan 66yo M with AUD presenting with weakness, admitted for EtOH withdrawal, hypoNa, and hypoK developed fever overnight on 08/12 Fever recurrent fever - met sirs criteria with fever, tachycardia and now with leukocytosis. fever as high as 105 fluid received for elevated LA no sepsis as no source of infection identified at this time RPP negative, Chest CT/abdominal CT no infectious source, UA negative BCx negative x 2 s/p LP 08/14 - protein 64, but otherwise unremarkable, meningoencephalitis panel negative seen by ID all infectious work up negative - will d/c vanc, zosyn; continue doxycycline for now, lyme studies CSF pending although less likely ?possible drug induced - possible spectrum of serotonin syndrome - all psych meds on hold Acute toxic metabolic encephalopathy. Improving. oriented this morning likely multifactorial due to fever, etoh withdrawal, electrolyte abnormalities, medication brain CT negative ABG without CO2 retention sedating meds on hold seen by neurology Mild rhabdo CPK trending down slightly ? r/t rigors from fever; ?possible drug related continue IVF statin on hold follow CPK Hypomagnesemia/hypokalemia improving. replace and follow Transaminitis belly CT with steatohepatitis; h/o etoh abuse trending up to 777/276 hold statin follow LFTs LAUREN SCr up to 1.71, likely dehydration/insensible loss from high fever and on vanco will d/c vanco continue IVF follow renal function closely paroxysmal atrial fibrillation appears to be having short intermittent episodes of afib, no previous diagnosis of afib cardiology consult pending no AC at this time due to plan for LP today EtOH withdrawal phenobarbitol on hold for encephalopathy/lethargy - possible drug related cause of fever continue thiamine, folic acid supplementation coagulopathy INR 1.5, down to 1.2 ?r/t liver dz IV vit K and FFP prior to LP hypoNa suspect hypovolemia + beer potomania; resolved Elevated troponin likely demand from tachycardia repeat trending down AUD B vitamins, Addiction Med consult chronic HFpEF, not in acute exacerbation monitor volume status after receiving IVF COPD, not in acute exacerbation prn albuterol DM2, A1c 7.7 (07/06/22) olivia-dose lispro VTE ppx: resume lovenox dispo: TBD, seen by PT - rec STR when medically stable access - difficult stick, requiring multiple IV medications - midline placed for access 08/14 In my clinical judgment, the patient requires continued inpatient h ospitalization for the following reasons: fever, encephalopathy, requiring IV abx, atrial fibrillation, specialist consultation and close monitoring Time Spent With Patient Time: Total time managing care of this patient today ____ minutes. Quality Stroke Does the patient have a stroke diagnosis?: No VTE Prior VTE?: No VTE Risk Level:: Medical - low VTE Device Contraindication: Treatment Not Indicated VTE Drug Contraindication: Treatment Not Indicated
[2022-08-15 10:19] LABS: Alanine Aminotransferase 276 U/L (0-40); Albumin Level 3.1 g/dL (3.5-5.0); Alkaline Phosphatase 86 U/L (39-117); Anion Gap 15 (12-20); Aspartate Amino Transferase 777 U/L (5-37); Bilirubin Direct 0.9 mg/dL (0.0-0.5); Bilirubin Total 1.8 mg/dL (0.0-1.0); Blood Urea Nitrogen 25 mg/dL (9-16); Carbon Dioxide 29 mmol/L (22-29); Chloride 99 mmol/L (96-108); Creatinine Clr Calc Pharmacy 48.6; Estimated Glomerular Filt Rate 40; Glucose Random 200 mg/dL (60-115); Magnesium 1.9 mg/dL (1.6-2.6); Potassium 2.9 mmol/L (3.3-5.1); Sodium 140 mmol/L (135-145); Total Protein 5.6 g/dL (6.5-8.0)
[2022-08-15 11:48] LABS: Glucose, Whole Blood 221 mg/dL (60-115)
[2022-08-15] MEDS: Folic Acid 1 MG TABLET PO (11:50)
[2022-08-15] MEDS: Multivitamin TABLET 1 TAB PO (11:50)
[2022-08-15] MEDS: Thiamine HCL 100 MG TABLET PO (11:50)
[2022-08-15] MEDS: Heparin Sodium,Porcine Flush 50 UNITS, 0.9 % Sodium Chloride Flush 5 ML IVFLUSH ×2 (11:50→21:00)
[2022-08-15] MEDS: Omeprazole 20 MG CAPSULE.DR PO ×2 (11:50→18:09)
[2022-08-15] MEDS: Potassium Chloride Packet 20 MEQ PACKET 40 MEQ PO ×2 (11:50→21:01)
[2022-08-15] MEDS: Nystatin Powder 15 GM BOTTLE 1 APPL TOPICAL ×2 (11:51→21:00)
[2022-08-15] MEDS: guaiFENesin DM 100/10/5 ML 5 ML SYRUP PO (12:17)
--- NOTE | 2022-08-15 12:25 | PM.CNCAR ---
History of Present Illness History of Present Illness Date of Service: 08/15/22 Requesting physician: Suzanne Young Chief complaint: alcohol withdrawal Narrative: [age] year gentleman who we have been asked to assess for atrial fibrillation. He has background history of alcoholism. He is presenting with change in mental status and fevers. He is getting workup done. He was in AFib with RVR on admission but has reverted back to sinus rhythm at this stage. He is completely sedated at the time of interview and able to give any history. He is lying flat in bed without any significant respiratory distress. Saturations are 93% on room air. [facility] Past Medical History Medical History Acute diastolic CHF (congestive heart failure) Acute hyponatremia Acute respiratory failure with hypoxia Acute respiratory failure with hypoxia LAUREN (acute kidney injury) Alcohol abuse Anxiety Bilateral pleural effusion Cellulitis, scrotum Contusion of rib on left side COPD (chronic obstructive pulmonary disease) Diabetes mellitus type 1 Diastolic dysfunction Diastolic heart failure DMII (diabetes mellitus, type 2) Electrolyte abnormality Elevated troponin Fall Fall Fungal dermatitis Gram-positive bacteremia HLD (hyperlipidemia) Hypertension Metabolic acidosis Metabolic acidosis Nonrheumatic aortic (valve) stenosis Obesity Pneumonia Rhabdomyolysis Family History Family History Father Diabetes Mother Diabetes Surgical History Surgical History H/O elbow surgery H/O shoulder surgery History of hydrocelectomy S/P TURP Social History Social History Household Members: None Housing: Apartment Do you presently have visiting nurse or other home services: No Unable to assess alcohol history related to: Refusing to respond Alcohol intake: current Alcohol intake frequency: 3 or more drinks per day Alcohol type: hard liquor Patient Tobacco Use Status: Former Tobacco user Quit Date: 05/02/22 Tobacco use type: Cigar Years Smoked: 50 e-Cigarette/Vaping Use: Former Use Second Hand Smoke Exposure: No Advance Directives Date on File: 10/11/20 service: No Current occupational status: unemployed and disabled Meds Allergies Allergy/AdvReac Type Severity Reaction Status Date / Time environmental allergies Allergy Sneezing Verified 07/08/22 08:40 Active Medications: Current Medications Acetaminophen (Acetaminophen 325 Mg Tablet) 650 mg PO Q6H PRN PRN Reason: Pain, Mild (Pain Scale 1-3) Last Admin: 08/14/22 21:37 Dose: 650 mg Albuterol Sulfate (Albuterol Sulfate 90 Mcg 8 Gm Inhaler) 2 puff INHALE Q4H PRN PRN Reason: Wheezing Albuterol/Ipratropium (Albuterol/Iprat 2.5/0.5mg 3 Ml Ampul.Neb) 3 ml INHALE RQ6H [facility] Last Admin: 08/15/22 12:15 Dose: Not Given Aspirin (Aspirin Enteric Coated 81 Mg Tablet.Dr) 81 mg PO DAILY [facility] Last Admin: 08/13/22 08:29 Dose: 81 mg Heparin Sodium (Porcine) 50 (units/ Sodium Chloride 5 ml) 0 units IVFLUSH TID [facility] Last Admin: 08/15/22 11:50 Dose: 50 unit Docusate Sodium (Docusate Sodium 100 Mg Capsule) 100 mg PO DAILY PRN PRN Reason: Constipation Enoxaparin Sodium (Enoxaparin Sodium 40 Mg/0.4 Ml Syringe) 40 mg SUBCUT Q24H [facility] Last Admin: 08/13/22 05:32 Dose: 40 mg Folic Acid (Folic Acid 1 Mg Tablet) 1 mg PO DAILY [facility] Last Admin: 08/15/22 11:50 Dose: 1 mg Glucose (Glucose Gel 15 Gm Gel..Gram.) 15 gm PO Q15M PRN; Protocol PRN Reason: per Hypoglycemia Standing Ord. Guaifenesin/Dextromethorphan (Guaifenesin Dm 100/10/5 Ml 5 Ml Syrup) 5 ml PO Q6H PRN PRN Reason: Cough Last Admin: 08/15/22 12:17 Dose: 5 ml Dextrose (D10) 250 mls @ 750 mls/hr IV Q15M PRN; Protocol PRN Reason: per Hypoglycemia Standing Ord. Lactated Ringer's (Lr) 1,000 mls @ 125 mls/hr IVCONT .Q8H [facility] Last Admin: 08/15/22 08:38 Dose: 200 mls/hr Doxycycline Hyclate 100 mg/ (Sodium Chloride) 250 mls @ 166.67 mls/hr IV Q12H [facility] Last Infusion: 08/15/22 03:44 Dose: Infused Insulin Human Lispro (Insulin Lispro 100 Unit/Ml 3 Ml Vial) 0 unit SUBCUT QIDACHS [facility]; Protocol Last Admin: 08/15/22 12:17 Dose: 4 unit Multivitamins/Vitamin C (Multivitamin Tablet) 1 tab PO DAILY [facility] Last Admin: 08/15/22 11:50 Dose: 1 tab Nystatin (Nystatin Powder 15 Gm Bottle) 1 appl TOPICAL BID [facility]; Protocol Last Admin: 08/15/22 11:51 Dose: 1 appl Omeprazole (Omeprazole 20 Mg Capsule.Dr) 20 mg PO BID@0630,1630 [facility] Last Admin: 08/15/22 11:50 Dose: 20 mg Ondansetron HCl (Ondansetron Hcl 4 Mg/2 Ml Vial) 4 mg IVPUSH Q8H PRN PRN Reason: Nausea and Vomiting Pharmacy Consult (Consult Rx Etoh Phenob Im/Po) 1 each MISCELLANE ONCE PRN; Protocol PRN Reason: Consult order Pharmacy Consult (Consult Rx Perform Med Rec) 1 each MISCELLANE ONCE PRN PRN Reason: Consult order Pharmacy Consult (Consult Rx Vancomycin Dosing) 1 each MISCELLANE DAILY PRN PRN Reason: Consult order Potassium Chloride (Potassium Chloride Packet 20 Meq Packet) 40 meq PO BID [facility] Stop: 08/15/22 21:01 Last Admin: 08/15/22 11:50 Dose: 40 meq Sodium Chloride (0.9 % Sodium Chloride Flush 3 Ml Syringe) 3 ml IVFLUSH QSHIFT [facility] Last Admin: 08/15/22 11:51 Dose: 3 ml Tamsulosin HCl (Tamsulosin Hcl 0.4 Mg Capsule) 0.4 mg PO DAILY@1700 [facility] Last Admin: 08/14/22 18:14 Dose: Not Given Thiamine HCl (Thiamine Hcl 100 Mg Tablet) 100 mg PO DAILY [facility] Last Admin: 08/15/22 11:50 Dose: 100 mg Home Medications Medication Instructions Recorded Confirmed Last Taken Type albuterol sulfate 90 mcg/actuation 2 puff inhalation Q4H PRN Wheezing 12/29/20 08/11/22 10/06/21 History aerosol inhaler simvastatin 20 mg tablet 1 tab PO BEDTIME 12/29/20 08/11/22 10/05/21 History thiamine HCl (vitamin B1) 100 mg 1 tab PO BEDTIME 0808/11/22 10/05/21 History tablet aspirin 81 mg tablet,delayed 1 tab PO DAILY 02/04/21 08/11/22 12/11/21 History release buspirone 5 mg tablet 5 mg PO BID 02/04/21 08/11/22 12/11/21 History ramelteon 8 mg tablet 1 tab PO BEDTIME 05/12/21 08/11/22 10/05/21 History tamsulosin 0.4 mg capsule 1 cap PO DAILY@1700 05/12/21 08/11/22 10/06/21 History omeprazole 20 mg capsule,delayed 1 cap PO BID@0630,1630 06/01/21 08/11/22 10/06/21 History release gabapentin 300 mg capsule 300 mg PO BEDTIME 10/06/21 08/11/22 10/05/21 History multivitamin 1 tab PO DAILY 12/11/21 08/11/22 Unknown History folic acid 1 mg tablet 1 tab PO BEDTIME 03/16/22 08/11/22 Unknown History celecoxib 50 mg capsule 1 cap PO BID 07/04/22 08/11/22 Unknown History Physical Exam Vital Signs: Vital Signs: Last Vital Signs Temp 96.2 F L 08/15/22 03:10 Pulse 93 08/15/22 12:22 Resp 22 H 08/15/22 12:22 BP 106/53 L 08/15/22 12:22 Pulse Ox 93 08/15/22 12:22 O2 Del Method Room Air 08/15/22 12:22 O2 Flow Rate 2 08/14/22 07:00 BMI result Body Mass Index 33.4 GENERAL APPEARANCE: Sleepy but arousable. Not able to stay awake and again going back to sleep during the interview. In no acute distress. SKIN: no suspicious lesions, warm and dry. HEART: no murmurs, regular rate and rhythm. LUNGS: clear to auscultation bilaterally. ABDOMEN: soft, nontender. EXTREMITIES: no edema. PERIPHERAL PULSES: equal. NEUROLOGIC: No gross deficits, AAO X 3 Objective Labs and Meds 08/15/22 09:46 08/15/22 09:46 Lab results: Laboratory Results - last 24 hr 08/14/22 08/14/22 08/14/22 11:47 14:35 14:35 WBC RBC Hgb Hct MCV MCH MCHC RDW Plt Count MPV Absolute Nucleated RBC Nucleated RBC % (auto) PT INR Sodium Potassium Chloride Carbon Dioxide Anion Gap BUN Creatinine Estim Creat Clear Calc Estimated GFR POC Glucose Random Glucose Calcium Magnesium Total Bilirubin Direct Bilirubin AST ALT Alkaline Phosphatase Total Creatine Kinase Total Protein Albumin CSF Tube Number 2 CSF Volume CSF Appearance CSF Color CSF WBC CSF RBC CSF Lymphocytes CSF Appearance (b) Clear, Colorless CSF Glucose 120 CSF Total Protein 64.4 H CSF C.neoform/gat PCR Not Detected CSF CMV DNA (PCR) Not Detected CSF Enterovirus (PCR) Not Detected CSF E. coli K1 (PCR) Not Detected CSF H. influenzae (PCR) Not Detected CSF HSV I (PCR) Not Detected CSF HSV II (PCR) Not Detected CSF HHV 6 (PCR) Not Detected CSF L.monocytogenes PCR Not Detected CSF N. meningitidis PCR Not Detected CSF Parechovirus (PCR) Not Detected CSF S. agalactiae (PCR) Not Detected CSF S. pneumoniae (PCR) Not Detected CSF VZV (PCR) Not Detected Blood Type O Positive Antibody Screen NEGATIVE 08/14/22 08/14/22 08/15/22 14:35 20:32 07:11 WBC RBC Hgb Hct MCV MCH MCHC RDW Plt Count MPV Absolute Nucleated RBC Nucleated RBC % (auto) PT INR Sodium Potassium Chloride Carbon Dioxide Anion Gap BUN Creatinine Estim Creat Clear Calc Estimated GFR POC Glucose 180 H 183 H Random Glucose Calcium Magnesium Total Bilirubin Direct Bilirubin AST ALT Alkaline Phosphatase Total Creatine Kinase Total Protein Albumin CSF Tube Number 1 CSF Volume 1.5 CSF Appearance CLEAR CSF Color COLORLESS CSF WBC 4 CSF RBC 7 CSF Lymphocytes 100 CSF Appearance (b) CSF Glucose CSF Total Protein CSF C.neoform/gat PCR CSF CMV DNA (PCR) CSF Enterovirus (PCR) CSF E. coli K1 (PCR) CSF H. influenzae (PCR) CSF HSV I (PCR) CSF HSV II (PCR) CSF HHV 6 (PCR) CSF L.monocytogenes PCR CSF N. meningitidis PCR CSF Parechovirus (PCR) CSF S. agalactiae (PCR) CSF S. pneumoniae (PCR) CSF VZV (PCR) Blood Type Antibody Screen 08/15/22 08/15/22 08/15/22 09:46 09:46 09:46 WBC 10.4 RBC 3.60 L Hgb 10.9 L Hct 33.3 L MCV 92.5 MCH 30.3 MCHC 32.7 RDW 13.6 Plt Count 131 L MPV 10.1 Absolute Nucleated RBC 0.000 Nucleated RBC % (auto) 0.0 PT 13.8 H INR 1.2 H Sodium 140 Potassium 2.9 L Chloride 99 Carbon Dioxide 29 Anion Gap 15 BUN 25 H Creatinine 1.71 H Estim Creat Clear Calc 48.6 Estimated GFR 40 POC Glucose Random Glucose 200 H Calcium 8.0 L Magnesium 1.9 Total Bilirubin 1.8 H Direct Bilirubin 0.9 H AST 777 H ALT 276 H Alkaline Phosphatase 86 Total Creatine Kinase 1520 H Total Protein 5.6 L Albumin 3.1 L CSF Tube Number CSF Volume CSF Appearance CSF Color CSF WBC CSF RBC CSF Lymphocytes CSF Appearance (b) CSF Glucose CSF Total Protein CSF C.neoform/gat PCR CSF CMV DNA (PCR) CSF Enterovirus (PCR) CSF E. coli K1 (PCR) CSF H. influenzae (PCR) CSF HSV I (PCR) CSF HSV II (PCR) CSF HHV 6 (PCR) CSF L.monocytogenes PCR CSF N. meningitidis PCR CSF Parechovirus (PCR) CSF S. agalactiae (PCR) CSF S. pneumoniae (PCR) CSF VZV (PCR) Blood Type Antibody Screen 08/15/22 11:44 WBC RBC Hgb Hct MCV MCH MCHC RDW Plt Count MPV Absolute Nucleated RBC Nucleated RBC % (auto) PT INR Sodium Potassium Chloride Carbon Dioxide Anion Gap BUN Creatinine Estim Creat Clear Calc Estimated GFR POC Glucose 221 H Random Glucose Calcium Magnesium Total Bilirubin Direct Bilirubin AST ALT Alkaline Phosphatase Total Creatine Kinase Total Protein Albumin CSF Tube Number CSF Volume CSF Appearance CSF Color CSF WBC CSF RBC CSF Lymphocytes CSF Appearance (b) CSF Glucose CSF Total Protein CSF C.neoform/gat PCR CSF CMV DNA (PCR) CSF Enterovirus (PCR) CSF E. coli K1 (PCR) CSF H. influenzae (PCR) CSF HSV I (PCR) CSF HSV II (PCR) CSF HHV 6 (PCR) CSF L.monocytogenes PCR CSF N. meningitidis PCR CSF Parechovirus (PCR) CSF S. agalactiae (PCR) CSF S. pneumoniae (PCR) CSF VZV (PCR) Blood Type Antibody Screen Imaging Radiologist's impression: Impressions Lumbar Puncture Fluoroscopy 08/14/22 15:00 IMPRESSION: Successful fluoroscopy-guided L4-L5 lumbar puncture performed. Assessment and Plan (1) PAF (paroxysmal atrial fibrillation): Status: Acute Plan 66-year-old gentleman presenting with AFib with RVR in the setting of alcohol abuse and change in mental status. He has a overall mental status is improving. He has reverted back to sinus rhythm at this stage. Mr. Dominguez records he has history of hypertension, diabetes and [id number] aortic valve stenosis. His chads Vasc score is at least 3-4. He will need long-term anticoagulation. We have to understand as he improves from his encephalopathy whether he is a good candidate for anticoagulation or not. If he is unsteady on his feet and high fall risk then I would avoid using anticoagulation currently in this can be discussed if he improves in the future. Thank you for allowing me to participate in the care of your patient. Please feel free to contact me if you have any questions. Time Spent With Patient Time: Total time managing care of this patient today ____ minutes. Procedures Date of Service Date of Service: 08/15/22
--- NOTE | 2022-08-15 15:01 | MHC.RECOVRN ---
This fiction and nonfiction prose writer met w/ patient after addiction consult was placed. Patient was sleeping when entered room, awake to verbal command. Patient states drinks 1 pint daily, has been drinking since 15 years old. Patient reports has attempted to decrease drinking in past month. Patient states history of treatment including detox and sober living facilities. Patient states has tried medication for ETOH use in the past, could not recall if this was helpful or not. Patient stopped answering t/w questions, patient states dont bother to come back . T/W to return tomorrow to check in.
[2022-08-15 17:01] LABS: Glucose, Whole Blood 203 mg/dL (60-115)
[2022-08-15] MEDS: Tamsulosin HCL 0.4 MG CAPSULE PO (17:24)
[2022-08-15] MEDS: Lactated Ringers 1,000 ML 125 ML IVCONT (17:26)
[2022-08-15] MEDS: Acetaminophen 325 MG TABLET 650 MG PO (18:03)
[2022-08-15 20:45] LABS: Glucose, Whole Blood 256 mg/dL (60-115)
[2022-08-16] MEDS: Albuterol Sulfate 90 MCG 8 GM INHALER 2 PUFF INHALE ×2 (01:04→12:06)
[2022-08-16] MEDS: Lactated Ringers 1,000 ML 125 ML IVCONT (01:48)
[2022-08-16] MEDS: Doxycycline Hyclate 100 MG in 0.9 % Sodium Chloride 250 ML 166.67 MG IV ×2 (01:50→14:17)
[2022-08-16 04:00] VITALS: BP 135/63; PULSE 86; RESP 20; TEMP 36.1; O2SAT 95
[2022-08-16] MEDS: Enoxaparin Sodium 40 MG/0.4 ML SYRINGE SUBCUT (06:03)
[2022-08-16] MEDS: Omeprazole 20 MG CAPSULE.DR PO ×2 (06:03→16:15)
[2022-08-16 07:46] VITALS: BP 133/78; PULSE 105; RESP 21; TEMP 37.1; O2SAT 97
[2022-08-16] MEDS: Insulin Lispro 100 UNIT/ML 3 ML VIAL SUBCUT ×4 (08:29→22:12)
[2022-08-16] MEDS: Heparin Sodium,Porcine Flush 50 UNITS, 0.9 % Sodium Chloride Flush 5 ML IVFLUSH ×2 (08:29→14:17)
[2022-08-16] MEDS: Thiamine HCL 100 MG TABLET PO (08:30)
[2022-08-16] MEDS: Nystatin Powder 15 GM BOTTLE 1 APPL TOPICAL ×2 (08:30→22:13)
[2022-08-16] MEDS: Multivitamin TABLET 1 TAB PO (08:30)
[2022-08-16] MEDS: Folic Acid 1 MG TABLET PO (08:30)
[2022-08-16] MEDS: 0.9 % Sodium Chloride Flush 3 ML SYRINGE IVFLUSH ×2 (08:31→14:17)
[2022-08-16 08:55] LABS: Glucose, Whole Blood 352 mg/dL (60-115)
[2022-08-16 09:29] LABS: INTERNATIONAL NORM RATIO 1.2 (0.9-1.1); Prothrombin Time 13.9 SEC (10.0-13.1)
[2022-08-16 09:49] LABS: Alanine Aminotransferase 274 U/L (0-40); Alkaline Phosphatase 260 U/L (39-117); Anion Gap 13 (12-20); Aspartate Amino Transferase 446 U/L (5-37); Bilirubin Direct 0.4 mg/dL (0.0-0.5); Bilirubin Total 0.9 mg/dL (0.0-1.0); Blood Urea Nitrogen 24 mg/dL (9-16); Calcium 7.9 mg/dL (8.4-10.2); Carbon Dioxide 26 mmol/L (22-29); Chloride 101 mmol/L (96-108); Creatinine Clr Calc Pharmacy 58.1; Estimated Glomerular Filt Rate 49; Glucose Random 308 mg/dL (60-115); Potassium 3.8 mmol/L (3.3-5.1); Sodium 136 mmol/L (135-145); Total Protein 5.5 g/dL (6.5-8.0)
--- NOTE | 2022-08-16 10:14 | P.PNIM_ITS ---
Subjective Subjective Date of Service: 08/16/22 Interval History: seen and examined this morning follow up for encephalopathy, fever awake and alert this morning, says he's not feeling well, but does not have any specific complaints denies sob, has been declining breathing treatments Review of Systems Review of Systems: Yes all other systems are reviewed and are negative Constitutional Constitutional: Denies chills and Reports fever(s) ENT Ears, Nose, Mouth, and Throat: Denies dizziness Cardiovascular Cardiovascular: Denies chest pain, Denies palpitations and Denies dyspnea Respiratory Respiratory: Reports cough and Denies dyspnea Gastrointestinal Gastrointestinal: Denies abdominal pain and Denies nausea Neurologic Neurologic: Denies dizziness Endocrine Endocrine: Denies palpitations Physical Exam Vital Signs: Vital Signs: Last Vital Signs Temp 98.7 F 08/16/22 07:46 Pulse 105 H 08/16/22 07:46 Resp 21 H 08/16/22 07:46 BP 133/78 08/16/22 07:46 Pulse Ox 97 08/16/22 07:46 O2 Del Method Room Air 08/16/22 07:46 O2 Flow Rate 2 08/14/22 07:00 BMI result Body Mass Index 33.4 Const: General: alert, awake and ill appearing Nutritional Appearance: overweight Orientation/consciousness: oriented to person and oriented to place HEENT: Other: dry MM Resp: Other: expiratory wheeze mild tachypnea Effort & Inspection: able to speak in complete sentences Cardio: Rate: regular rate Heart sounds: S1 normal heart sound present and S2 normal heart sound present GI: Inspection: No distended Palpation (GI): Soft to palpation and nontender : Other: mccann in place Neuro: General: oriented to person, oriented to place and CN's II-XI intact bilaterally Extrem: Other: midline right arm, bruising lower arm; able to move all four extremities spontaneously General: Yes no pedal edema Objective Data Active Medications Acetaminophen (Acetaminophen 325 Mg Tablet) 650 mg PO Q6H PRN PRN Reason: Pain, Mild (Pain Scale 1-3) Last Admin: 08/15/22 18:03 Dose: 650 mg Documented By: JOVITA Albuterol/Ipratropium (Albuterol/Iprat 2.5/0.5mg 3 Ml Ampul.Neb) 3 ml INHALE RQ6H [facility] Last Admin: 08/16/22 05:53 Dose: Not Given Documented By: SHERYL Non-Admin Reason: Patient Refused Albuterol/Ipratropium (Albuterol/Iprat 2.5/0.5mg 3 Ml Ampul.Neb) 3 ml INHALE Q4H PRN PRN Reason: shortness of breath/wheezing Aspirin (Aspirin Enteric Coated 81 Mg Tablet.) 81 mg PO DAILY [facility] Last Admin: 08/13/22 08:29 Dose: 81 mg Documented By: GINGER Heparin Sodium (Porcine) 50 (units/ Sodium Chloride 5 ml) 0 units IVFLUSH TID [facility] Last Admin: 08/16/22 08:29 Dose: 55 unit Documented By: CASPER Docusate Sodium (Docusate Sodium 100 Mg Capsule) 100 mg PO DAILY PRN PRN Reason: Constipation Enoxaparin Sodium (Enoxaparin Sodium 40 Mg/0.4 Ml Syringe) 40 mg SUBCUT Q24H [facility] Last Admin: 08/16/22 06:03 Dose: 40 mg Documented By: PERRY Folic Acid (Folic Acid 1 Mg Tablet) 1 mg PO DAILY [facility] Last Admin: 08/16/22 08:30 Dose: 1 mg Documented By: CASPER Glucose (Glucose Gel 15 Gm Gel..Gram.) 15 gm PO Q15M PRN; Protocol PRN Reason: per Hypoglycemia Standing Ord. Guaifenesin/Dextromethorphan (Guaifenesin Dm 100/10/5 Ml 5 Ml Syrup) 5 ml PO Q6H PRN PRN Reason: Cough Last Admin: 08/15/22 12:17 Dose: 5 ml Documented By: ALETHEA Dextrose (D10) 250 mls @ 750 mls/hr IV Q15M PRN; Protocol PRN Reason: per Hypoglycemia Standing Ord. Doxycycline Hyclate 100 mg/ (Sodium Chloride) 250 mls @ 166.67 mls/hr IV Q12H [facility] Last Infusion: 08/16/22 03:27 Dose: 0 mls/hr Documented By: PERRY Insulin Human Lispro (Insulin Lispro 100 Unit/Ml 3 Ml Vial) 0 unit SUBCUT QIDACHS [facility]; Protocol Last Admin: 08/16/22 08:29 Dose: 10 unit Documented By: CASPER Multivitamins/Vitamin C (Multivitamin Tablet) 1 tab PO DAILY [facility] Last Admin: 08/16/22 08:30 Dose: 1 tab Documented By: CASPER Nystatin (Nystatin Powder 15 Gm Bottle) 1 appl TOPICAL BID [facility]; Protocol Last Admin: 08/16/22 08:30 Dose: 1 appl Documented By: CASPER Omeprazole (Omeprazole 20 Mg Capsule.) 20 mg PO BID@0630,1630 [facility] Last Admin: 08/16/22 06:03 Dose: 20 mg Documented By: PERRY Ondansetron HCl (Ondansetron Hcl 4 Mg/2 Ml Vial) 4 mg IVPUSH Q8H PRN PRN Reason: Nausea and Vomiting Pharmacy Consult (Consult Rx Etoh Phenob Im/Po) 1 each MISCELLANE ONCE PRN; Protocol PRN Reason: Consult order Pharmacy Consult (Consult Rx Perform Med Rec) 1 each MISCELLANE ONCE PRN PRN Reason: Consult order Pharmacy Consult (Consult Rx Vancomycin Dosing) 1 each MISCELLANE DAILY PRN PRN Reason: Consult order Sodium Chloride (0.9 % Sodium Chloride Flush 3 Ml Syringe) 3 ml IVFLUSH QSHIFT [facility] Last Admin: 08/16/22 08:31 Dose: 3 ml Documented By: CASPER Tamsulosin HCl (Tamsulosin Hcl 0.4 Mg Capsule) 0.4 mg PO DAILY@1700 [facility] Last Admin: 08/15/22 17:24 Dose: 0.4 mg Documented By: JOVITA Thiamine HCl (Thiamine Hcl 100 Mg Tablet) 100 mg PO DAILY [facility] Last Admin: 08/16/22 08:30 Dose: 100 mg Documented By: CASPER Labs 08/15/22 09:46 08/16/22 09:14 Labs: Laboratory Results - last 24 hr 08/15/22 08/15/22 08/15/22 09:46 11:44 16:37 PT INR Anion Gap 15 Estim Creat Clear Calc 48.6 Estimated GFR 40 POC Glucose 221 H 203 H Random Glucose 200 H Calcium 8.0 L Magnesium 1.9 Total Bilirubin 1.8 H Direct Bilirubin 0.9 H AST 777 H ALT 276 H Alkaline Phosphatase 86 Total Creatine Kinase 1520 H Total Protein 5.6 L Albumin 3.1 L 08/15/22 08/16/22 08/16/22 19:41 07:49 09:14 PT INR Anion Gap 13 Estim Creat Clear Calc 58.1 Estimated GFR 49 POC Glucose 256 H 352 H* Random Glucose 308 H Calcium 7.9 L Magnesium Total Bilirubin 0.9 Direct Bilirubin 0.4 AST 446 H ALT 274 H Alkaline Phosphatase 260 H Total Creatine Kinase 836 H Total Protein 5.5 L Albumin 3.0 L 08/16/22 09:14 PT 13.9 H INR 1.2 H Anion Gap Estim Creat Clear Calc Estimated GFR POC Glucose Random Glucose Calcium Magnesium Total Bilirubin Direct Bilirubin AST ALT Alkaline Phosphatase Total Creatine Kinase Total Protein Albumin Microbiology Microbiology Results: Microbiology 08/14/22 14:35 Gram Stain - Final Cerebrospinal Fluid CSF Examination - Final Fluid Description - Final CSF Culture - Preliminary No growth after 2 days 08/14/22 01:39 Blood Culture - Preliminary Blood - Venous No growth after 48 hours. 08/14/22 01:39 Blood Culture - Preliminary Blood - Venous No growth after 48 hours. Assessment and Plan (1) PAF (paroxysmal atrial fibrillation): Status: Acute (2) Acute encephalopathy: Status: Acute (3) Alcohol withdrawal: Status: Acute Plan 66yo M with AUD presenting with weakness, admitted for EtOH withdrawal, hypoNa, and hypoK course complicated by fever and encephalopathy Fever recurrent fever - met sirs criteria with fever, tachycardia, leukocytosis. fever as high as 105 fluid received for elevated LA. no sepsis as no source of infection identified at this time RPP negative, Chest CT/abdominal CT no infectious source, UA negative BCx negative x 2 s/p LP 4/7 - protein 64, but otherwise unremarkable, meningoencephalitis panel negative seen by ID all infectious work up negative - will d/c vanc, zosyn; continue doxycycline for now, lyme studies CSF pending although less likely ?possible drug induced - possible spectrum of serotonin syndrome - all psych meds on hold Acute toxic metabolic encephalopathy. Improving. likely multifactorial due to fever, etoh withdrawal, electrolyte abnormalities, renal failure, medication brain CT negative ABG without CO2 retention sedating meds on hold seen by neurology Mild rhabdo CPK trending down ? r/t rigors from fever; ?possible drug related continue IVF statin on hold Hypomagnesemia/hypokalemia improving. replace and follow Transaminitis belly CT with steatohepatitis; h/o etoh abuse LFTs starting to trend back down, likely due to low perfusion state hold statin follow LFTs LAUREN SCr trending down today likely dehydration/insensible loss from high fever and on vanco will d/c vanco continue IVF follow renal function closely paroxysmal atrial fibrillation back in sinus rhythm seen by cardiology high Chads score - but may not be good candidate for AC given etoh abuse/fall risk EtOH withdrawal phenobarbitol on hold for encephalopathy/lethargy - possible drug related cause of fever continue thiamine, folic acid supplementation coagulopathy INR 1.5, down to 1.2 ?r/t liver dz IV vit K and FFP given prior to LP hypoNa suspect hypovolemia + beer potomania; resolved Elevated troponin likely demand from tachycardia repeat trending down AUD B vitamins, Addiction Med consult chronic HFpEF, not in acute exacerbation monitor volume status after receiving IVF COPD, not in acute exacerbation prn albuterol DM2, A1c 7.7 (07/06/22) olivia-dose lispro VTE ppx: resume lovenox dispo: TBD, seen by PT - rec STR when medically stable access - difficult stick, requiring multiple IV medications - midline placed for access 08/14 Attending - Dr. Ron In my clinical judgment, the patient requires continued inpatient hospitalization for the following reasons: fever, encephalopathy, requiring IV abx, atrial fibrillation, specialist consultation and close monitoring Time Spent With Patient Time: Total time managing care of this patient today ____ minutes. Quality Stroke Does the patient have a stroke diagnosis?: No VTE Prior VTE?: No VTE Risk Level:: Medical - low VTE Device Contraindication: Treatment Not Indicated VTE Drug Contraindication: Treatment Not Indicated
[2022-08-16 10:56] VITALS: BP 135/76; PULSE 97; RESP 20; TEMP 37.9; O2SAT 95
[2022-08-16] MEDS: Acetaminophen 325 MG TABLET 650 MG PO (11:12)
[2022-08-16 12:08] VITALS: PULSE 98; RESP 18; O2SAT 94
[2022-08-16 12:19] LABS: Glucose, Whole Blood 211 mg/dL (60-115)
--- NOTE | 2022-08-16 14:30 | PC.NURSE ---
Midline no longer flushing at this time, IV catheter kinked at insertion site. Pt noncompliant and resistive to care when trying to reposition midline. IV removed and intact. PA notified at this time.
[2022-08-16 14:57] VITALS: BP 165/90; PULSE 80; RESP 20; TEMP 36.7; O2SAT 98
[2022-08-16] MEDS: LORazepam 2 MG/ML VIAL 1 MG IM (16:14)
--- NOTE | 2022-08-16 16:14 | PC.NURSE ---
Addendum entered by Rochelle Dixon RN 08/16/22 19:17: Sitter order in place since this morning; no sitter available all shift Original Note: Pt agitated throughout the shift, pt verbally abusive, yelling and swinging at staff. Pt continuously trying to get out of bed; redirection and alternative measures not effective. Pt repositioned several times throughout the shift, incontinence care completed, and pt given snacks. Despite safety education pt continues to get out of bed on his own. Pt pulling at mccann catheter; education given, education not effective. PA aware and notified; ativan IM given; not effective. Safety and fall precautions maintained, camera in room, call watters within reach.
[2022-08-16] MEDS: Tamsulosin HCL 0.4 MG CAPSULE PO (16:15)
[2022-08-16 16:30] LABS: Glucose, Whole Blood 205 mg/dL (60-115)
[2022-08-16 19:41] VITALS: BP 113/61; PULSE 90; RESP 18; TEMP 36.2; O2SAT 95
[2022-08-16 20:40] LABS: Glucose, Whole Blood 195 mg/dL (60-115)
--- NOTE | 2022-08-16 23:57 | PM.EVENT ---
Event Note Date of Service: 08/16/22 Event Note: peripheral iv in arms unsuccessful. pt lost midline access during the day and nurses have been unsuccessful in obtaining peripherla. will try feet Time Spent With Patient Time: Total time managing care of this patient today ____ minutes.
[2022-08-17] MEDS: Doxycycline Monohydrate 100 MG CAPSULE PO ×2 (01:40→21:23)
[2022-08-17 04:00] VITALS: BP 110/65; PULSE 92; RESP 16; TEMP 37.1; O2SAT 93
[2022-08-17] MEDS: Omeprazole 20 MG CAPSULE.DR PO ×2 (06:16→16:55)
[2022-08-17] MEDS: Enoxaparin Sodium 40 MG/0.4 ML SYRINGE SUBCUT (06:18)
[2022-08-17 07:36] LABS: Hematocrit 30.7 % (42.0-52.0); Hemoglobin 10.3 g/dl (14.0-18.0); Mean Corpuscular HGB Conc 33.6 g/dl (31.0-36.0); Mean Corpuscular Hemoglobin 30.5 pg (27.0-33.0); Mean Corpuscular Volume 90.8 fL (80.0-98.0); PLT CLUMP 1; Red Blood Count 3.38 X10*6/uL (4.60-5.80); Red Cell Distribution Width 13.9 % (11.0-16.0)
[2022-08-17 07:37] LABS: NRBC Pct Auto 1.2 /100WBC (0.0-0.2)
[2022-08-17 08:00] LABS: Alanine Aminotransferase 266 U/L (0-40); Albumin Level 2.7 g/dL (3.5-5.0); Alkaline Phosphatase 184 U/L (39-117); Anion Gap 14 (12-20); Aspartate Amino Transferase 347 U/L (5-37); Bilirubin Direct 0.4 mg/dL (0.0-0.5); Bilirubin Total 0.9 mg/dL (0.0-1.0); Blood Urea Nitrogen 14 mg/dL (9-16); Calcium 7.7 mg/dL (8.4-10.2); Carbon Dioxide 28 mmol/L (22-29); Chloride 101 mmol/L (96-108); Creatinine Clr Calc Pharmacy 89.4; Estimated Glomerular Filt Rate > 60; Glucose Random 159 mg/dL (60-115); Potassium 3.6 mmol/L (3.3-5.1); Sodium 139 mmol/L (135-145); Total Protein 5.1 g/dL (6.5-8.0)
[2022-08-17 08:18] LABS: Platelet Count 129 X10*3/uL (160-400); White Blood Count 7.5 X10*3/uL (4.8-10.8)
--- NOTE | 2022-08-17 10:39 | MHC.CM.PN ---
Per ROUNDS discussion, Patient is not yet medically cleared for dc. PT is recommending STR and [facility] is offering a bed. Patient wants to go home. CM will continue to follow.
--- NOTE | 2022-08-17 11:29 | P.PNIM_ITS ---
Subjective Subjective Date of Service: 08/17/22 Interval History: seen and examined this morning follow up for encephalopathy, fever awake and alert this morning, says he's not feeling well, but does not have any specific complaints denies sob, has been declining breathing treatments Review of Systems Review of Systems: Yes all other systems are reviewed and are negative Constitutional Constitutional: Denies chills and Reports fever(s) ENT Ears, Nose, Mouth, and Throat: Denies dizziness Cardiovascular Cardiovascular: Denies chest pain, Denies palpitations and Denies dyspnea Respiratory Respiratory: Reports cough and Denies dyspnea Gastrointestinal Gastrointestinal: Denies abdominal pain and Denies nausea Neurologic Neurologic: Denies dizziness Endocrine Endocrine: Denies palpitations Physical Exam Vital Signs: Vital Signs: Last Vital Signs Temp 98.7 F 08/17/22 04:00 Pulse 92 08/17/22 04:00 Resp 16 08/17/22 04:00 BP 110/65 08/17/22 04:00 Pulse Ox 93 08/17/22 04:00 O2 Del Method Room Air 08/17/22 04:00 O2 Flow Rate 2 08/14/22 07:00 BMI result Body Mass Index 33.4 Appearing in no acute distress lung sounds are clear to auscultation heart regular rate rhythm, clear S1, S2 positive bowel sounds, abdomen is soft, nontender neuro patient is alert x3, no focal deficits Objective Data Active Medications Acetaminophen (Acetaminophen 325 Mg Tablet) 650 mg PO Q6H PRN PRN Reason: Pain, Mild (Pain Scale 1-3) Last Admin: 08/16/22 11:12 Dose: 650 mg Documented By: CASPER Albuterol/Ipratropium (Albuterol/Iprat 2.5/0.5mg 3 Ml Ampul.Neb) 3 ml INHALE RQ6H [facility] Last Admin: 08/17/22 06:44 Dose: Not Given Documented By: CANDIE Non-Admin Reason: Patient Refused Albuterol/Ipratropium (Albuterol/Iprat 2.5/0.5mg 3 Ml Ampul.Neb) 3 ml INHALE Q4H PRN PRN Reason: shortness of breath/wheezing Aspirin (Aspirin Enteric Coated 81 Mg Tablet.) 81 mg PO DAILY [facility] Last Admin: 08/13/22 08:29 Dose: 81 mg Documented By: GINGER Heparin Sodium (Porcine) 50 (units/ Sodium Chloride 5 ml) 0 units IVFLUSH TID [facility] Last Admin: 08/17/22 09:38 Dose: Not Given Documented By: RADHA Non-Admin Reason: Patient Refused Docusate Sodium (Docusate Sodium 100 Mg Capsule) 100 mg PO DAILY PRN PRN Reason: Constipation Enoxaparin Sodium (Enoxaparin Sodium 40 Mg/0.4 Ml Syringe) 40 mg SUBCUT Q24H [facility] Last Admin: 08/17/22 06:18 Dose: 40 mg Documented By: GALILEO Folic Acid (Folic Acid 1 Mg Tablet) 1 mg PO DAILY [facility] Last Admin: 08/17/22 09:38 Dose: Not Given Documented By: RADHA Non-Admin Reason: Patient Refused Glucose (Glucose Gel 15 Gm Gel..Gram.) 15 gm PO Q15M PRN; Protocol PRN Reason: per Hypoglycemia Standing Ord. Guaifenesin/Dextromethorphan (Guaifenesin Dm 100/10/5 Ml 5 Ml Syrup) 5 ml PO Q6H PRN PRN Reason: Cough Last Admin: 08/15/22 12:17 Dose: 5 ml Documented By: ALETHEA Dextrose (D10) 250 mls @ 750 mls/hr IV Q15M PRN; Protocol PRN Reason: per Hypoglycemia Standing Ord. Doxycycline Hyclate 100 mg/ (Sodium Chloride) 250 mls @ 166.67 mls/hr IV Q12H [facility] Last Admin: 08/17/22 02:04 Dose: Not Given Documented By: GALILEO Non-Admin Reason: no IV access, PO route given to pt Insulin Human Lispro (Insulin Lispro 100 Unit/Ml 3 Ml Vial) 0 unit SUBCUT QIDACHS [facility]; Protocol Last Admin: 08/17/22 08:49 Dose: Not Given Documented By: RADHA Non-Admin Reason: Patient Refused Multivitamins/Vitamin C (Multivitamin Tablet) 1 tab PO DAILY [facility] Last Admin: 08/17/22 09:38 Dose: Not Given Documented By: RADHA Non-Admin Reason: Patient Refused Nystatin (Nystatin Powder 15 Gm Bottle) 1 appl TOPICAL BID [facility]; Protocol Last Admin: 08/17/22 09:38 Dose: Not Given Documented By: RADHA Non-Admin Reason: Patient Refused Omeprazole (Omeprazole 20 Mg Capsule.) 20 mg PO BID@0630,1630 [facility] Last Admin: 08/17/22 06:16 Dose: 20 mg Documented By: GALILEO Ondansetron HCl (Ondansetron Hcl 4 Mg/2 Ml Vial) 4 mg IVPUSH Q8H PRN PRN Reason: Nausea and Vomiting Pharmacy Consult (Consult Rx Etoh Phenob Im/Po) 1 each MISCELLANE ONCE PRN; Protocol PRN Reason: Consult order Pharmacy Consult (Consult Rx Perform Med Rec) 1 each MISCELLANE ONCE PRN PRN Reason: Consult order Pharmacy Consult (Consult Rx Vancomycin Dosing) 1 each MISCELLANE DAILY PRN PRN Reason: Consult order Sodium Chloride (0.9 % Sodium Chloride Flush 3 Ml Syringe) 3 ml IVFLUSH QSHIFT [facility] Last Admin: 08/17/22 09:32 Dose: Not Given Documented By: RADHA Non-Admin Reason: No Access Tamsulosin HCl (Tamsulosin Hcl 0.4 Mg Capsule) 0.4 mg PO DAILY@1700 [facility] Last Admin: 08/16/22 16:15 Dose: 0.4 mg Documented By: CASPER Thiamine HCl (Thiamine Hcl 100 Mg Tablet) 100 mg PO DAILY [facility] Last Admin: 08/17/22 09:38 Dose: Not Given Documented By: RADHA Non-Admin Reason: Patient Refused Labs 08/17/22 07:15 08/17/22 07:15 Labs: Laboratory Results - last 24 hr 08/16/22 08/16/22 08/16/22 11:07 16:04 20:37 MCV MCH MCHC RDW Plt Count MPV Absolute Nucleated RBC Nucleated RBC % (auto) Anion Gap Estim Creat Clear Calc Estimated GFR POC Glucose 211 H 205 H 195 H Random Glucose Calcium Total Bilirubin Direct Bilirubin AST ALT Alkaline Phosphatase Total Protein Albumin 08/17/22 08/17/22 07:15 07:15 MCV 90.8 MCH 30.5 MCHC 33.6 RDW 13.9 Plt Count 129 L MPV Not Reportable Absolute Nucleated RBC 0.090 H Nucleated RBC % (auto) 1.2 H Anion Gap 14 Estim Creat Clear Calc 89.4 Estimated GFR > 60 POC Glucose Random Glucose 159 H Calcium 7.7 L Total Bilirubin 0.9 Direct Bilirubin 0.4 AST 347 H ALT 266 H Alkaline Phosphatase 184 H Total Protein 5.1 L Albumin 2.7 L Microbiology Microbiology Results: Microbiology 08/14/22 14:35 Gram Stain - Final Cerebrospinal Fluid CSF Examination - Final Fluid Description - Final CSF Culture - Final No growth after 3 days. Assessment and Plan (1) PAF (paroxysmal atrial fibrillation): Status: Acute (2) Acute encephalopathy: Status: Acute (3) Alcohol withdrawal: Status: Acute Plan 66yo M with AUD presenting with weakness, admitted for EtOH withdrawal, hypoNa, and hypoK course complicated by fever and encephalopathy Transaminitis belly CT with steatohepatitis; h/o etoh abuse LFTs starting to trend back down, likely due to low perfusion state hold statin follow LFTs Fever, intermittent Unknown etiology last night 100.2 RPP negative, Chest CT/abdominal CT no infectious source, UA negative BCx negative x 2 s/p LP 4/7 - protein 64, but otherwise unremarkable, meningoencephalitis panel negative seen by ID all infectious work up negative - will d/c vanc, zosyn; continue doxycycline for now, lyme studies CSF pending although less likely ?possible drug induced - possible spectrum of serotonin syndrome - all psych meds on hold Acute toxic metabolic encephalopathy. Improving. likely multifactorial due to fever, etoh withdrawal, electrolyte abnormalities, renal failure, medication brain CT negative ABG without CO2 retention sedating meds on hold seen by neurology Mild rhabdo CPK trending down ? r/t rigors from fever; ?possible drug related continue IVF statin on hold Hypomagnesemia/hypokalemia improving. replace and follow LAUREN SCr trending down today likely dehydration/insensible loss from high fever and on vanco will d/c vanco continue IVF follow renal function closely paroxysmal atrial fibrillation back in sinus rhythm seen by cardiology high Chads score - but may not be good candidate for AC given etoh abuse/fall risk EtOH withdrawal phenobarbitol on hold for encephalopathy/lethargy - possible drug related cause of fever continue thiamine, folic acid supplementation coagulopathy INR 1.5, down to 1.2 ?r/t liver dz IV vit K and FFP given prior to LP hypoNa suspect hypovolemia + beer potomania; resolved Elevated troponin likely demand from tachycardia repeat trending down AUD B vitamins, Addiction Med consult chronic HFpEF not in acute exacerbation COPD, not in acute exacerbation prn albuterol DM2 A1c 7.7 (07/06/22) ss VTE ppx:lovenox Attending - Dr. Palmer continued inpatient hospitalization for the following reasons: fever, encephalopathy, requiring IV abx, atrial fibrillation, specialist consultation and close monitoring Time Spent With Patient Time: Total time managing care of this patient today ____ minutes. Quality Stroke Does the patient have a stroke diagnosis?: No VTE Prior VTE?: No VTE Risk Level:: Medical - low VTE Device Contraindication: Treatment Not Indicated VTE Drug Contraindication: Treatment Not Indicated
[2022-08-17 11:51] LABS: Glucose, Whole Blood 207 mg/dL (60-115)
[2022-08-17] MEDS: Insulin Lispro 100 UNIT/ML 3 ML VIAL SUBCUT ×2 (12:59→16:55)
--- NOTE | 2022-08-17 14:04 | PC.NURSE ---
Pt is uncooperative with care. Refused POC, vital signs, and medications this morning. Pt was found soiled in stool down all the way to his knees, pt continued to be resistive to care despite several redirections, fighting back during incontinent care and verbally threaten and gestured to punch and kick RN and PCT. Pt informed such behavior will not be tolerated. Pt refused to let RN place IV for doxycycline. Covering provider, Patsy Greco RECOVERY RN, made aware of pt's refusal of meds and procedures.
[2022-08-17 15:41] VITALS: BP 117/64; PULSE 94; RESP 15; TEMP 36; O2SAT 96
[2022-08-17 16:29] LABS: Glucose, Whole Blood 151 mg/dL (60-115)
[2022-08-17] MEDS: Tamsulosin HCL 0.4 MG CAPSULE PO (16:55)
[2022-08-17 20:00] VITALS: BP 129/70; PULSE 82; RESP 15; TEMP 36; O2SAT 94
[2022-08-17] MEDS: Nystatin Powder 15 GM BOTTLE 1 APPL TOPICAL (20:11)
[2022-08-17 21:15] LABS: Glucose, Whole Blood 150 mg/dL (60-115)
--- NOTE | 2022-08-18 02:10 | PC.NURSE ---
pt refused iv access md aware one dose of doxy PO was given as ordered.
[2022-08-18 03:49] VITALS: BP 122/68; PULSE 93; RESP 18; TEMP 36.7; O2SAT 90
[2022-08-18] MEDS: Omeprazole 20 MG CAPSULE.DR PO ×2 (05:56→17:42)
[2022-08-18] MEDS: Enoxaparin Sodium 40 MG/0.4 ML SYRINGE SUBCUT (05:56)
[2022-08-18 07:20] VITALS: BP 116/67; PULSE 87; RESP 20; TEMP 36.5; O2SAT 92
[2022-08-18 08:02] LABS: Glucose, Whole Blood 158 mg/dL (60-115)
[2022-08-18] MEDS: Multivitamin TABLET 1 TAB PO (09:22)
[2022-08-18] MEDS: Folic Acid 1 MG TABLET PO (09:22)
[2022-08-18] MEDS: Nystatin Powder 15 GM BOTTLE 1 APPL TOPICAL ×2 (09:22→22:05)
[2022-08-18] MEDS: Thiamine HCL 100 MG TABLET PO (09:22)
[2022-08-18] MEDS: Insulin Lispro 100 UNIT/ML 3 ML VIAL SUBCUT ×4 (09:22→22:05)
--- NOTE | 2022-08-18 10:30 | P.PNIM_ITS ---
Subjective Subjective Date of Service: 08/18/22 Interval History: seen and examined this morning follow up for encephalopathy, fever telling staff to shut up shouting profanities denies sob, has been declining breathing treatments Review of Systems Review of Systems: Yes all other systems are reviewed and are negative Constitutional Constitutional: Denies chills and Reports fever(s) ENT Ears, Nose, Mouth, and Throat: Denies dizziness Cardiovascular Cardiovascular: Denies chest pain, Denies palpitations and Denies dyspnea Respiratory Respiratory: Reports cough and Denies dyspnea Gastrointestinal Gastrointestinal: Denies abdominal pain and Denies nausea Neurologic Neurologic: Denies dizziness Endocrine Endocrine: Denies palpitations Physical Exam Vital Signs: Vital Signs: Last Vital Signs Temp 97.7 F 08/18/22 07:20 Pulse 87 08/18/22 07:20 Resp 20 08/18/22 07:20 BP 116/67 08/18/22 07:20 Pulse Ox 92 08/18/22 07:20 O2 Del Method Room Air 08/18/22 07:20 O2 Flow Rate 2 08/14/22 07:00 BMI result Body Mass Index 33.4 Appearing in no acute distress lung sounds are clear to auscultation heart regular rate rhythm, clear S1, S2 positive bowel sounds, abdomen is soft, nontender neuro patient is alert x3, no focal deficits Objective Data Active Medications Acetaminophen (Acetaminophen 325 Mg Tablet) 650 mg PO Q6H PRN PRN Reason: Pain, Mild (Pain Scale 1-3) Last Admin: 08/16/22 11:12 Dose: 650 mg Documented By: CASPER Albuterol/Ipratropium (Albuterol/Iprat 2.5/0.5mg 3 Ml Ampul.Neb) 3 ml INHALE RQ6H [facility] Last Admin: 08/18/22 06:03 Dose: Not Given Documented By: CANDIE Non-Admin Reason: Patient Asleep Albuterol/Ipratropium (Albuterol/Iprat 2.5/0.5mg 3 Ml Ampul.Neb) 3 ml INHALE Q4H PRN PRN Reason: shortness of breath/wheezing Aspirin (Aspirin Enteric Coated 81 Mg Tablet.) 81 mg PO DAILY [facility] Last Admin: 08/13/22 08:29 Dose: 81 mg Documented By: DIANA-MELFA Heparin Sodium (Porcine) 50 (units/ Sodium Chloride 5 ml) 0 units IVFLUSH TID [facility] Last Admin: 08/18/22 09:42 Dose: Not Given Documented By: RADHA Non-Admin Reason: No Access Docusate Sodium (Docusate Sodium 100 Mg Capsule) 100 mg PO DAILY PRN PRN Reason: Constipation Enoxaparin Sodium (Enoxaparin Sodium 40 Mg/0.4 Ml Syringe) 40 mg SUBCUT Q24H [facility] Last Admin: 08/18/22 05:56 Dose: 40 mg Documented By: LICHA Folic Acid (Folic Acid 1 Mg Tablet) 1 mg PO DAILY [facility] Last Admin: 08/18/22 09:22 Dose: 1 mg Documented By: RADHA Glucose (Glucose Gel 15 Gm Gel..Gram.) 15 gm PO Q15M PRN; Protocol PRN Reason: per Hypoglycemia Standing Ord. Guaifenesin/Dextromethorphan (Guaifenesin Dm 100/10/5 Ml 5 Ml Syrup) 5 ml PO Q6H PRN PRN Reason: Cough Last Admin: 08/15/22 12:17 Dose: 5 ml Documented By: ALETHEA Dextrose (D10) 250 mls @ 750 mls/hr IV Q15M PRN; Protocol PRN Reason: per Hypoglycemia Standing Ord. Doxycycline Hyclate 100 mg/ (Sodium Chloride) 250 mls @ 166.67 mls/hr IV Q12H [facility] Last Admin: 08/18/22 02:09 Dose: Not Given Documented By: LICHA Non-Admin Reason: pt refused iv access aware Insulin Human Lispro (Insulin Lispro 100 Unit/Ml 3 Ml Vial) 0 unit SUBCUT QIDACHS [facility]; Protocol Last Admin: 08/18/22 09:22 Dose: 2 unit Documented By: RADHA Multivitamins/Vitamin C (Multivitamin Tablet) 1 tab PO DAILY [facility] Last Admin: 08/18/22 09:22 Dose: 1 tab Documented By: RADHA Nystatin (Nystatin Powder 15 Gm Bottle) 1 appl TOPICAL BID [facility]; Protocol Last Admin: 08/18/22 09:22 Dose: 1 appl Documented By: RADHA Omeprazole (Omeprazole 20 Mg Gregg.) 20 mg PO BID@0630,1630 [facility] Last Admin: 08/18/22 05:56 Dose: 20 mg Documented By: LICHA Ondansetron HCl (Ondansetron Hcl 4 Mg/2 Ml Vial) 4 mg IVPUSH Q8H PRN PRN Reason: Nausea and Vomiting Pharmacy Consult (Consult Rx Etoh Phenob Im/Po) 1 each MISCELLANE ONCE PRN; Protocol PRN Reason: Consult order Pharmacy Consult (Consult Rx Perform Med Rec) 1 each MISCELLANE ONCE PRN PRN Reason: Consult order Sodium Chloride (0.9 % Sodium Chloride Flush 3 Ml Syringe) 3 ml IVFLUSH QSHIFT [facility] Last Admin: 08/18/22 09:14 Dose: Not Given Documented By: RADHA Non-Admin Reason: No Access Tamsulosin HCl (Tamsulosin Hcl 0.4 Mg Capsule) 0.4 mg PO DAILY@1700 [facility] Last Admin: 08/17/22 16:55 Dose: 0.4 mg Documented By: RADHA Thiamine HCl (Thiamine Hcl 100 Mg Tablet) 100 mg PO DAILY [facility] Last Admin: 08/18/22 09:22 Dose: 100 mg Documented By: RADHA Labs 08/17/22 07:15 08/17/22 07:15 Labs: Laboratory Results - last 24 hr 08/17/22 08/17/22 08/17/22 11:47 16:20 21:11 POC Glucose 207 H 151 H 150 H 08/18/22 07:58 POC Glucose 158 H Microbiology Microbiology Results: Microbiology 08/12/22 20:43 Blood Culture - Final Blood - Venous No growth after 5 days. 08/12/22 20:43 Blood Culture - Final Blood - Venous No growth after 5 days. 08/14/22 14:35 Gram Stain - Final Cerebrospinal Fluid CSF Examination - Final Fluid Description - Final CSF Culture - Final No growth after 3 days. Assessment and Plan (1) PAF (paroxysmal atrial fibrillation): Status: Acute (2) Acute encephalopathy: Status: Acute (3) Alcohol withdrawal: Status: Acute Plan 66yo M with AUD presenting with weakness, admitted for EtOH withdrawal, hypoNa, and hypoK course complicated by fever and encephalopathy Transaminitis belly CT with steatohepatitis; h/o etoh abuse LFTs starting to trend back down, likely due to low perfusion state hold statin follow LFTs Fever, intermittent Unknown etiology 08/17/22 fever 100.2 RPP negative, Chest CT/abdominal CT no infectious source, UA negative BCx negative x 2 s/p LP 08/14 - protein 64, but otherwise unremarkable, meningoencephalitis panel negative seen by ID all infectious work up negative - will d/c vanc, zosyn; continue doxycycline for now, lyme studies CSF pending although less likely ?possible drug induced - possible spectrum of serotonin syndrome - all psych meds on hold Acute toxic metabolic encephalopathy. Improving. likely multifactorial due to fever, etoh withdrawal, electrolyte abnormalities, renal failure, medication brain CT negative ABG without CO2 retention sedating meds on hold seen by neurology plan for capacity evaluation Mild rhabdo CPK trending down ? r/t rigors from fever; ?possible drug related continue IVF statin on hold Hypomagnesemia/hypokalemia improving. replace and follow LAUREN SCr trending down today likely dehydration/insensible loss from high fever and on vanco will d/c vanco continue IVF follow renal function closely paroxysmal atrial fibrillation back in sinus rhythm seen by cardiology high Chads score - but may not be good candidate for AC given etoh abuse/fall risk EtOH withdrawal phenobarbitol on hold for encephalopathy/lethargy - possible drug related cause of fever continue thiamine, folic acid supplementation coagulopathy INR 1.5, down to 1.2 ?r/t liver dz IV vit K and FFP given prior to LP hypoNa suspect hypovolemia + beer potomania; resolved Elevated troponin likely demand from tachycardia repeat trending down AUD B vitamins, Addiction Med consult chronic HFpEF not in acute exacerbation COPD, not in acute exacerbation prn albuterol DM2 A1c 7.7 (07/06/22) ss VTE ppx:lovenox Attending - Dr. Palmer continued inpatient hospitalization for the following reasons: fever, encep halopathy, requiring IV abx, atrial fibrillation, specialist consultation and close monitoring Time Spent With Patient Time: Total time managing care of this patient today ____ minutes. Quality Stroke Does the patient have a stroke diagnosis?: No VTE Prior VTE?: No VTE Risk Level:: Medical - low VTE Device Contraindication: Treatment Not Indicated VTE Drug Contraindication: Treatment Not Indicated
--- NOTE | 2022-08-18 10:36 | MHC.CM.PN ---
CM met with Patient at bedside to discuss dc planning and PT's recommendation for STR. Despite Patient having a bed offer from [facility], Patient is adamantly refusing that bed offer and not interested in ANY SNF. Patient is insisting that he wants to go home. Per [employer] MACHINE OPERATOR, may do a Psych/Capacity eval. CM will follow. Patient is medically cleared for dc to SNF/STR today.
[2022-08-18 11:09] VITALS: BP 139/67; PULSE 85; RESP 20; TEMP 36.2; O2SAT 93
[2022-08-18 11:27] LABS: Glucose, Whole Blood 191 mg/dL (60-115)
[2022-08-18 15:09] VITALS: BP 120/67; PULSE 86; RESP 20; TEMP 36.4; O2SAT 90
[2022-08-18 16:08] LABS: Glucose, Whole Blood 169 mg/dL (60-115)
[2022-08-18] MEDS: Tamsulosin HCL 0.4 MG CAPSULE PO (17:42)
[2022-08-18 19:08] VITALS: PULSE 69; RESP 20; TEMP 36.7; O2SAT 90
[2022-08-18 19:55] LABS: Glucose, Whole Blood 158 mg/dL (60-115)
[2022-08-18 23:35] VITALS: BP 128/63; PULSE 87; RESP 20; TEMP 36.3; O2SAT 93
[2022-08-19 02:56] VITALS: BP 131/78; PULSE 92; RESP 22; TEMP 37.2; O2SAT 92
[2022-08-19 03:10] VITALS: PULSE 92; RESP 18
[2022-08-19] MEDS: Albuterol/Iprat 2.5/0.5MG 3 ML AMPUL.NEB INHALE (03:10)
[2022-08-19] MEDS: Enoxaparin Sodium 40 MG/0.4 ML SYRINGE SUBCUT (05:56)
[2022-08-19] MEDS: Omeprazole 20 MG CAPSULE.DR PO ×2 (05:56→17:03)
--- NOTE | 2022-08-19 08:57 | HO.PM.IMPN ---
Subjective Subjective Date of Service: 08/19/22 Review of Systems patient seen and examined at bedside. he is alert, oriented to place and self. He is being uncooperative. Refusing all lab work and finger sticks. reports pain in his legs but would not let me examine them. Denies any abdominal pain , no n/v, no diarrhea. no chest pain or sob. he just states that he feels unwell all over. Physical Exam Vital Signs: Vital Signs: Last Vital Signs Temp 99.0 F 08/19/22 02:56 Pulse 92 08/19/22 03:10 Resp 18 08/19/22 03:10 BP 131/78 08/19/22 02:56 Pulse Ox 92 08/19/22 02:56 O2 Del Method Room Air 08/19/22 02:56 O2 Flow Rate 2 08/14/22 07:00 BMI result Body Mass Index 33.4 Const: Other: alert, oriented to self and place but not cooperating Resp: Other: lung clear, normal resp effort Cardio: Other: normal rate , normal rhythm GI: Other: abd is soft non-tender Extrem: Other: calves tender to my exam Objective Data Active Medications Acetaminophen (Acetaminophen 325 Mg Tablet) 650 mg PO Q6H PRN PRN Reason: Pain, Mild (Pain Scale 1-3) Last Admin: 08/16/22 11:12 Dose: 650 mg Documented By: CASPER Albuterol/Ipratropium (Albuterol/Iprat 2.5/0.5mg 3 Ml Ampul.Neb) 3 ml INHALE RQ6H [facility] Last Admin: 08/19/22 05:34 Dose: Not Given Documented By: MALCOLM Non-Admin Reason: See Note Albuterol/Ipratropium (Albuterol/Iprat 2.5/0.5mg 3 Ml Ampul.Neb) 3 ml INHALE Q4H PRN PRN Reason: shortness of breath/wheezing Last Admin: 08/19/22 03:10 Dose: 3 ml Documented By: MALCOLM Aspirin (Aspirin Enteric Coated 81 Mg Tablet.) 81 mg PO DAILY [facility] Last Admin: 08/13/22 08:29 Dose: 81 mg Documented By: DIANA-MELFA Heparin Sodium (Porcine) 50 (units/ Sodium Chloride 5 ml) 0 units IVFLUSH TID [facility] Last Admin: 08/18/22 19:17 Dose: Not Given Documented By: KORI Non-Admin Reason: No Access Docusate Sodium (Docusate Sodium 100 Mg Capsule) 100 mg PO DAILY PRN PRN Reason: Constipation Enoxaparin Sodium (Enoxaparin Sodium 40 Mg/0.4 Ml Syringe) 40 mg SUBCUT Q24H [facility] Last Admin: 08/19/22 05:56 Dose: 40 mg Documented By: NERY Folic Acid (Folic Acid 1 Mg Tablet) 1 mg PO DAILY [facility] Last Admin: 08/18/22 09:22 Dose: 1 mg Documented By: RADHA Glucose (Glucose Gel 15 Gm Gel..Gram.) 15 gm PO Q15M PRN; Protocol PRN Reason: per Hypoglycemia Standing Ord. Guaifenesin/Dextromethorphan (Guaifenesin Dm 100/10/5 Ml 5 Ml Syrup) 5 ml PO Q6H PRN PRN Reason: Cough Last Admin: 08/15/22 12:17 Dose: 5 ml Documented By: ALETHEA Dextrose (D10) 250 mls @ 750 mls/hr IV Q15M PRN; Protocol PRN Reason: per Hypoglycemia Standing Ord. Insulin Human Lispro (Insulin Lispro 100 Unit/Ml 3 Ml Vial) 0 unit SUBCUT QIDACHS [facility]; Protocol Last Admin: 08/18/22 22:05 Dose: 2 unit Documented By: KORI Multivitamins/Vitamin C (Multivitamin Tablet) 1 tab PO DAILY [facility] Last Admin: 08/18/22 09:22 Dose: 1 tab Documented By: RADHA Nystatin (Nystatin Powder 15 Gm Bottle) 1 appl TOPICAL BID [facility]; Protocol Last Admin: 08/18/22 22:05 Dose: 1 appl Documented By: KORI Omeprazole (Omeprazole 20 Mg Capsule.Dr) 20 mg PO BID@0630,1630 [facility] Last Admin: 08/19/22 05:56 Dose: 20 mg Documented By: NERY Ondansetron HCl (Ondansetron Hcl 4 Mg/2 Ml Vial) 4 mg IVPUSH Q8H PRN PRN Reason: Nausea and Vomiting Pharmacy Consult (Consult Rx Etoh Phenob Im/Po) 1 each MISCELLANE ONCE PRN; Protocol PRN Reason: Consult order Pharmacy Consult (Consult Rx Perform Med Rec) 1 each MISCELLANE ONCE PRN PRN Reason: Consult order Sodium Chloride (0.9 % Sodium Chloride Flush 3 Ml Syringe) 3 ml IVFLUSH QSHIFT [facility] Last Admin: 08/19/22 00:03 Dose: Not Given Documented By: KORI Non-Admin Reason: No Access Tamsulosin HCl (Tamsulosin Hcl 0.4 Mg Capsule) 0.4 mg PO DAILY@1700 [facility] Last Admin: 08/18/22 17:42 Dose: 0.4 mg Documented By: RADHA Thiamine HCl (Thiamine Hcl 100 Mg Tablet) 100 mg PO DAILY [facility] [place] Last Admin: 08/18/22 09:22 Dose: 100 mg Documented By: RADHA Labs 08/17/22 07:15 08/17/22 07:15 Labs: Laboratory Results - last 24 hr 08/18/22 08/18/22 08/18/22 11:11 16:02 19:46 POC Glucose 191 H 169 H 158 H Microbiology Microbiology Results: Microbiology 08/14/22 01:39 Blood Culture - Final Blood - Venous No growth after 5 days. 08/14/22 01:39 Blood Culture - Final Blood - Venous No growth after 5 days. Assessment and Plan (1) Acute encephalopathy: Status: Acute (2) Fever: Status: Acute (3) PAF (paroxysmal atrial fibrillation): Status: Acute (4) Rhabdomyolysis: Status: Acute (5) Alcohol withdrawal: Status: Acute Plan 66yo M with AUD presenting with weakness, admitted for EtOH withdrawal, hypoNa, and hypoK course complicated by fever and encephalopathy # Transaminitis - Abd CT showed steatohepatitis; h/o etoh abuse - LFTs starting to trend back down,but pt has been refusing lab draws with no success - will continue to try to convince pt to draw blood - continue to hold statin # Fever, intermittent -Unknown etiology, - possible drug induced - possible spectrum of serotonin syndrome - all psych meds on hold - last documented fever 08/17/22 fever 100.2 - RPP negative, Chest CT/abdominal CT no infectious source, UA negative - BCx negative x 2 - s/p LP 08/14 - protein 64, but otherwise unremarkable, meningoencephalitis panel negative - seen by ID all infectious work up negative - will d/c vanc, zosyn; - continue doxycycline for now, - Lyme CSF pending - monitor # Acute toxic metabolic encephalopathy. - Improving. - likely multifactorial due to fever, etoh withdrawal, electrolyte abnormalities, renal failure, medication - brain CT negative - no CO2 retention - continue holding sedatives - seen by neurology - Psych consulted for capacity #Mild rhabdo - likely cause of pain in calves - CPK trending down but has refused rept lab draws and no iv line for iv fluids - ? r/t rigors from fever; ?possible drug related statin on hold - will continue to try to get IV line and IV fluids but pt so far refusing #Hypomagnesemia/hypokalemia - repleted - improved - BMP ordered #LAUREN -likely pre-renal 2/2 dehydration - improved - BMP #paroxysmal atrial fibrillation - back in sinus rhythm - seen by cardiology, poor candidate for ac given alcohol abuse and falls #EtOH withdrawal - no longer withdrawing - phenobarbitol on hold for encephalopathy/lethargy - possible drug related cause of fever -continue thiamine, folic acid supplementation #coagulopathy -INR 1.5, down to 1.2 - ?r/t liver dz - IV vit K and FFP given prior to LP # hypoNa - suspect hypovolemia + beer potomania; resolved - bmp # Calves pain - likely 2/2 rhabdo - refusing blood draws and PT participation - will continue to encourage #Elevated troponin - likely demand from tachycardia - trended down # AUD B vitamins, Addiction Med consult #chronic HFpEF not in acute exacerbation # COPD, not in acute exacerbation prn albuterol DM2 A1c 7.7 (07/06/22) ss VTE ppx:lovenox continued inpatient hospitalization for the following reasons: fever, encephalopathy, requiring IV abx, atrial fibrillation, specialist consultation and close monitoring at this time sister is health care proxy. pending Psych eval for capacity Time Spent With Patient Time: Total time managing care of this patient today ____ minutes. Quality Stroke Does the patient have a stroke diagnosis?: No VTE Prior VTE?: No VTE Risk Level:: Medical - low VTE Device Contraindication: Treatment Not Indicated VTE Drug Contraindication: Treatment Not Indicated
[2022-08-19] MEDS: Thiamine HCL 100 MG TABLET PO (09:16)
[2022-08-19] MEDS: Folic Acid 1 MG TABLET PO (09:16)
[2022-08-19] MEDS: Multivitamin TABLET 1 TAB PO (09:16)
[2022-08-19 10:17] LABS: Glucose, Whole Blood 172 mg/dL (60-115)
--- NOTE | 2022-08-19 10:49 | MHC.CM.PN ---
Per ROUNDS discussion, Psych/Capacity eval is still pending; CM will follow.
--- NOTE | 2022-08-19 11:59 | PC.NURSE ---
second unit of FFP transfused on 08/14/2022 at 21:09 with night nurse Carolina ROSENBERG. Full 259mL transfused.
[2022-08-19 14:58] VITALS: BP 139/61; PULSE 83; RESP 20; TEMP 36.7; O2SAT 98
--- NOTE | 2022-08-19 15:03 | PC.NURSE ---
New order in today to D/C mccann catheter. Patient notified of order. 10cc drained from balloon and mccann removed. Patient tolerated procedure well.
[2022-08-19 16:07] LABS: Glucose, Whole Blood 191 mg/dL (60-115)
[2022-08-19 18:43] LABS: Lyme IgG CSF Immunoblot NO BANDS DETECTED; Lyme IgM CSF Immunoblot NO BANDS DETECTED
--- NOTE | 2022-08-19 23:25 | PC.NURSE ---
Patient refused all 21:00 vitals, medications and poc. Alert and oriented x3, resistive to care and verbally abusive.
[2022-08-20] MEDS: Omeprazole 20 MG CAPSULE.DR PO ×2 (06:36→15:20)
[2022-08-20] MEDS: Thiamine HCL 100 MG TABLET PO (11:37)
[2022-08-20] MEDS: Nystatin Powder 15 GM BOTTLE 1 APPL TOPICAL ×2 (11:37→20:32)
[2022-08-20] MEDS: Multivitamin TABLET 1 TAB PO (11:37)
[2022-08-20] MEDS: Folic Acid 1 MG TABLET PO (11:37)
[2022-08-20 11:44] VITALS: RESP 19
--- NOTE | 2022-08-20 12:43 | MHC.CM.PN ---
Per ROUNDS discussion, Patient still in need of a PSYCH/CAPACITY eval; SQUARING SHEAR OPERATOR stated she would reach out again to Psych. CM will follow.
--- NOTE | 2022-08-20 13:46 | P.PNIM_ITS ---
Subjective Subjective Date of Service: 08/20/22 Interval History: seen and examined this morning follow up for fever, encephalopathy no fever for several days. able to state his name and where he is in general pt uncooperative this morning not feeling well but unable to specify any symptoms. denies abdominal pain, chest pain, shortness of breath Review of Systems Review of Systems: Yes all other systems are reviewed and are negative Constitutional Constitutional: Denies chills and Denies fever(s) Cardiovascular Cardiovascular: Denies chest pain, Denies palpitations and Denies dyspnea Respiratory Respiratory: Reports cough and Denies dyspnea Gastrointestinal Gastrointestinal: Denies abdominal pain, Denies nausea and Denies vomiting Endocrine Endocrine: Denies palpitations Physical Exam Vital Signs: Vital Signs: Last Vital Signs Temp 98.0 F 08/19/22 14:58 Pulse 83 08/19/22 14:58 Resp 19 08/20/22 11:44 BP 139/61 08/19/22 14:58 Pulse Ox 98 08/19/22 14:58 O2 Del Method Room Air 08/19/22 14:58 O2 Flow Rate 2 08/14/22 07:00 BMI result Body Mass Index 33.4 Const: General: no acute distress, alert and awake Nutritional Appearance: overweight Orientation/consciousness: patient oriented x3 Resp: Effort & Inspection: normal respiratory effort, able to speak in complete sentences, no respiratory distress and no use of accessory muscles Cardio: Rate: regular rate Heart sounds: S1 normal heart sound present and S2 normal heart sound present GI: Palpation (GI): not soft and nontender Neuro: Other: grossly nonfocal General: patient oriented x3 Extrem: Other: moving all 4 extremities spontaneously Objective Data Active Medications Acetaminophen (Acetaminophen 325 Mg Tablet) 650 mg PO Q6H PRN PRN Reason: Pain, Mild (Pain Scale 1-3) Last Admin: 08/16/22 11:12 Dose: 650 mg Documented By: CASPER Albuterol/Ipratropium (Albuterol/Iprat 2.5/0.5mg 3 Ml Ampul.Neb) 3 ml INHALE RQ6H [facility] Last Admin: 08/20/22 11:55 Dose: Not Given Documented By: BRAYAN Non-Admin Reason: Patient Refused Albuterol/Ipratropium (Albuterol/Iprat 2.5/0.5mg 3 Ml Ampul.Neb) 3 ml INHALE Q4H PRN PRN Reason: shortness of breath/wheezing Last Admin: 08/19/22 03:10 Dose: 3 ml Documented By: MALCOLM Aspirin (Aspirin Enteric Coated 81 Mg Tablet.Dr) 81 mg PO DAILY [facility] Last Admin: 08/13/22 08:29 Dose: 81 mg Documented By: GINGER Heparin Sodium (Porcine) 50 (units/ Sodium Chloride 5 ml) 0 units IVFLUSH TID [facility] Last Admin: 08/20/22 11:37 Dose: Not Given Documented By: ALETHEA Non-Admin Reason: No Access Docusate Sodium (Docusate Sodium 100 Mg Capsule) 100 mg PO DAILY PRN PRN Reason: Constipation Enoxaparin Sodium (Enoxaparin Sodium 40 Mg/0.4 Ml Syringe) 40 mg SUBCUT Q24H [facility] Last Admin: 08/20/22 06:38 Dose: Not Given Documented By: MERCY Non-Admin Reason: Patient Refused Folic Acid (Folic Acid 1 Mg Tablet) 1 mg PO DAILY [facility] Last Admin: 08/20/22 11:37 Dose: 1 mg Documented By: ALETHEA Glucose (Glucose Gel 15 Gm Gel..Gram.) 15 gm PO Q15M PRN; Protocol PRN Reason: per Hypoglycemia Standing Ord. Guaifenesin/Dextromethorphan (Guaifenesin Dm 100/10/5 Ml 5 Ml Syrup) 5 ml PO Q6H PRN PRN Reason: Cough Last Admin: 08/15/22 12:17 Dose: 5 ml Documented By: ALETHEA Dextrose (D10) 250 mls @ 750 mls/hr IV Q15M PRN; Protocol PRN Reason: per Hypoglycemia Standing Ord. Insulin Human Lispro (Insulin Lispro 100 Unit/Ml 3 Ml Vial) 0 unit SUBCUT QIDACHS [facility]; Protocol Last Admin: 08/20/22 11:50 Dose: Not Given Documented By: ALETHEA Non-Admin Reason: Patient Refused Multivitamins/Vitamin C (Multivitamin Tablet) 1 tab PO DAILY [facility] Last Admin: 08/20/22 11:37 Dose: 1 tab Documented By: ALETHEA Nystatin (Nystatin Powder 15 Gm Bottle) 1 appl TOPICAL BID [facility]; Protocol Last Admin: 08/20/22 11:37 Dose: 1 appl Documented By: ALETHEA Omeprazole (Omeprazole 20 Mg Capsule.Dr) 20 mg PO BID@0630,1630 [facility] Last Admin: 08/20/22 06:36 Dose: 20 mg Documented By: MERCY Ondansetron HCl (Ondansetron Hcl 4 Mg/2 Ml Vial) 4 mg IVPUSH Q8H PRN PRN Reason: Nausea and Vomiting Pharmacy Consult (Consult Rx Etoh Phenob Im/Po) 1 each MISCELLANE ONCE PRN; Protocol PRN Reason: Consult order Pharmacy Consult (Consult Rx Perform Med Rec) 1 each MISCELLANE ONCE PRN PRN Reason: Consult order Sodium Chloride (0.9 % Sodium Chloride Flush 3 Ml Syringe) 3 ml IVFLUSH QSHIFT [facility] Last Admin: 08/20/22 11:37 Dose: Not Given Documented By: ALETHEA Non-Admin Reason: No Access Tamsulosin HCl (Tamsulosin Hcl 0.4 Mg Capsule) 0.4 mg PO DAILY@1700 [facility] Last Admin: 08/19/22 17:01 Dose: Not Given Documented By: JEANCARLOS Non-Admin Reason: Patient Refused Thiamine HCl (Thiamine Hcl 100 Mg Tablet) 100 mg PO DAILY [facility] Last Admin: 08/20/22 11:37 Dose: 100 mg Documented By: ALETHEA Labs 08/17/22 07:15 08/17/22 07:15 Labs: Laboratory Results - last 24 hr 08/14/22 08/19/22 14:35 16:01 POC Glucose 191 H CSF Lyme IgG (Immblot) NO BANDS DETECTED CSF Lyme IgM (Immblot) NO BANDS DETECTED Assessment and Plan (1) Metabolic encephalopathy: Status: Acute (2) Fever: Status: Acute Plan 66yo M with AUD presenting with weakness, admitted for EtOH withdrawal, hypoNa, and hypoK course complicated by fever and encephalopathy # Transaminitis - Abd CT showed steatohepatitis; h/o etoh abuse - LFTs starting to trend back down,but pt has been refusing lab draws with no success - will continue to try to convince pt to draw blood - continue to hold statin # Fever, intermittent - possible drug induced - possible spectrum of serotonin syndrome - all psych meds on hold - last documented fever 08/16/22 fever 100.2 - RPP negative, Chest CT/abdominal CT no infectious source, UA negative - BCx negative x 2 - s/p LP 08/14 - protein 64, but otherwise unremarkable, meningoencephalitis panel negative - seen by ID - all infectious work up negative - will d/c abx # Acute toxic metabolic encephalopathy. - Improving. - likely multifactorial due to fever, etoh withdrawal, electrolyte abnormalities, renal failure, medication - brain CT negative - no CO2 retention - continue holding sedatives - seen by neurology - Psych consulted for capacity #Mild rhabdo - likely cause of pain in calves - CPK trending down but has refused rept lab draws and no iv line for iv fluids - ? r/t rigors from fever; ?possible drug related statin on hold - will continue to try to get IV line and IV fluids but pt so far refusing #Hypomagnesemia/hypokalemia - repleted #LAUREN. resolved -likely pre-renal 2/2 dehydration #paroxysmal atrial fibrillation - back in sinus rhythm - seen by cardiology, poor candidate for ac given alcohol abuse and falls #EtOH withdrawal - no longer withdrawing - phenobarbitol on hold for encephalopathy/lethargy - possible contributing to drug related cause of fever - continue thiamine, folic acid supplementation #coagulopathy -INR 1.5, down to 1.2 - ?r/t liver dz - IV vit K and FFP given prior to LP # hypoNa - suspect hypovolemia + beer potomania; resolved #Elevated troponin - likely demand from tachycardia - trended down # AUD B vitamins, Addiction Med consult #chronic HFpEF not in acute exacerbation # COPD, not in acute exacerbation prn albuterol DM2 A1c 7.7 (07/06/22) SSI VTE ppx:lovenox dispo - declining to participate with PT continued inpatient hospitalization for the following reasons: fever, encephalopathy, specialist eval for capacity, safe dispo at this time sister in law is health care proxy. pending Psych eval for capacity Time Spent With Patient Time: Total time managing care of this patient today ____ minutes. Quality Stroke Does the patient have a stroke diagnosis?: No VTE Prior VTE?: No VTE Risk Level:: Medical - low VTE Device Contraindication: Treatment Not Indicated VTE Drug Contraindication: Treatment Not Indicated
[2022-08-20] MEDS: Tamsulosin HCL 0.4 MG CAPSULE PO (15:21)
--- NOTE | 2022-08-20 15:29 | PC.NURSE ---
Patient refusing poc's, physical assessment. Confused to place, time and situation. Incontinent urine. Did allow personal care by DIRECTORY CARRIER. Nystatin applied to groin and Barrier cream to buttocks. Patient uncooperative and impulsive at times and becomes angry and yells when asked questions.
[2022-08-20 16:37] VITALS: PULSE 83; RESP 18; TEMP 36.4; O2SAT 95
--- NOTE | 2022-08-20 16:37 | PC.NURSE ---
Pt refused blood pressure , uses inappropriate words , also stated that he wants oxycodone first for his arthritis . Getting very anxious when nurse tried to educate him on his plan of care
[2022-08-20 16:40] LABS: Glucose, Whole Blood 153 mg/dL (60-115)
[2022-08-20 19:44] VITALS: BP 110/67; PULSE 80; RESP 18; TEMP 36.8; O2SAT 95
[2022-08-20 20:04] VITALS: BP 100/65; PULSE 85; RESP 20; TEMP 36.1; O2SAT 93
[2022-08-20 20:09] LABS: Glucose, Whole Blood 139 mg/dL (60-115)
[2022-08-21 07:26] LABS: Alanine Aminotransferase 95 U/L (0-40); Albumin Level 2.6 g/dL (3.5-5.0); Alkaline Phosphatase 142 U/L (39-117); Anion Gap 17 (12-20); Aspartate Amino Transferase 71 U/L (5-37); Bilirubin Direct 0.1 mg/dL (0.0-0.5); Bilirubin Total 0.7 mg/dL (0.0-1.0); Blood Urea Nitrogen 9 mg/dL (9-16); Calcium 7.4 mg/dL (8.4-10.2); Carbon Dioxide 29 mmol/L (22-29); Chloride 101 mmol/L (96-108); Creatinine Clr Calc Pharmacy 72.3; Estimated Glomerular Filt Rate > 60; Glucose Random 114 mg/dL (60-115); Potassium 4.7 mmol/L (3.3-5.1); Sodium 142 mmol/L (135-145); Total Protein 5.2 g/dL (6.5-8.0)
[2022-08-21 07:49] LABS: Glucose, Whole Blood 115 mg/dL (60-115)
[2022-08-21] MEDS: Thiamine HCL 100 MG TABLET PO (08:59)
[2022-08-21] MEDS: Multivitamin TABLET 1 TAB PO (08:59)
[2022-08-21] MEDS: Folic Acid 1 MG TABLET PO (08:59)
[2022-08-21] MEDS: Nystatin Powder 15 GM BOTTLE 1 APPL TOPICAL ×2 (08:59→21:33)
[2022-08-21 11:37] LABS: Glucose, Whole Blood 152 mg/dL (60-115)
--- NOTE | 2022-08-21 14:48 | P.PNIM_ITS ---
Subjective Subjective Date of Service: 08/21/22 Interval History: seen and examined this morning follow up for fever, encephalopathy no fever for several days, reports feeling ok intermittently declining vitals, labs, and working with PT, uncooperative Review of Systems Review of Systems: Yes all other systems are reviewed and are negative Constitutional Constitutional: Denies chills and Denies fever(s) Cardiovascular Cardiovascular: Denies chest pain, Denies palpitations and Denies dyspnea Respiratory Respiratory: Denies dyspnea Gastrointestinal Gastrointestinal: Denies abdominal pain Endocrine Endocrine: Denies palpitations Physical Exam Vital Signs: Vital Signs: Last Vital Signs Temp 97.0 F 08/20/22 20:04 Pulse 85 08/20/22 20:04 Resp 20 08/20/22 20:04 BP 100/65 08/20/22 20:04 Pulse Ox 93 08/20/22 20:04 O2 Del Method Room Air 08/20/22 20:04 O2 Flow Rate 2 08/14/22 07:00 BMI result Body Mass Index 33.4 Const: General: comfortable, no acute distress, alert and awake Nutritional Appearance: overweight HEENT: Other: dry MM Resp: Effort & Inspection: normal respiratory effort, able to speak in complete sentences, no respiratory distress and no use of accessory muscles Auscultation: clear to auscultation bilaterally Cardio: Rate: regular rate Heart sounds: S1 normal heart sound present and S2 normal heart sound present GI: Inspection: No distended Palpation (GI): not soft and nontender Neuro: Other: grossly nonfocal General: CN's II-XI intact bilaterally Extrem: Other: moving all 4 extremities spontaneously General: Yes no pedal edema Objective Data Active Medications Acetaminophen (Acetaminophen 325 Mg Tablet) 650 mg PO Q6H PRN PRN Reason: Pain, Mild (Pain Scale 1-3) Last Admin: 08/16/22 11:12 Dose: 650 mg Documented By: CASPER Albuterol/Ipratropium (Albuterol/Iprat 2.5/0.5mg 3 Ml Ampul.Neb) 3 ml INHALE Q4H PRN PRN Reason: shortness of breath/wheezing Last Admin: 08/19/22 03:10 Dose: 3 ml Documented By: MALCOLM Aspirin (Aspirin Enteric Coated 81 Mg Tablet.) 81 mg PO DAILY JOURDAN Last Admin: 08/13/22 08:29 Dose: 81 mg Documented By: GINGER Heparin Sodium (Porcine) 50 (units/ Sodium Chloride 5 ml) 0 units IVFLUSH TID [facility] Last Admin: 08/21/22 14:28 Dose: Not Given Documented By: DERICK Non-Admin Reason: No Access Docusate Sodium (Docusate Sodium 100 Mg Capsule) 100 mg PO DAILY PRN PRN Reason: Constipation Enoxaparin Sodium (Enoxaparin Sodium 40 Mg/0.4 Ml Syringe) 40 mg SUBCUT Q24H [facility] Last Admin: 08/21/22 06:15 Dose: Not Given Documented By: RUBENS Non-Admin Reason: Patient Refused Folic Acid (Folic Acid 1 Mg Tablet) 1 mg PO DAILY [facility] Last Admin: 08/21/22 08:59 Dose: 1 mg Documented By: ALTAF Glucose (Glucose Gel 15 Gm Gel..Gram.) 15 gm PO Q15M PRN; Protocol PRN Reason: per Hypoglycemia Standing Ord. Guaifenesin/Dextromethorphan (Guaifenesin Dm 100/10/5 Ml 5 Ml Syrup) 5 ml PO Q6H PRN PRN Reason: Cough Last Admin: 08/15/22 12:17 Dose: 5 ml Documented By: ALETHEA Dextrose (D10) 250 mls @ 750 mls/hr IV Q15M PRN; Protocol PRN Reason: per Hypoglycemia Standing Ord. Insulin Human Lispro (Insulin Lispro 100 Unit/Ml 3 Ml Vial) 0 unit SUBCUT QIDACHS [facility]; Protocol Last Admin: 08/21/22 11:44 Dose: Not Given Documented By: ALTAF Non-Admin Reason: Patient Refused Comments: pt states is not going to have lunch Multivitamins/Vitamin C (Multivitamin Tablet) 1 tab PO DAILY [facility] Last Admin: 08/21/22 08:59 Dose: 1 tab Documented By: ALTAF Nystatin (Nystatin Powder 15 Gm Bottle) 1 appl TOPICAL BID [facility]; Protocol Last Admin: 08/21/22 08:59 Dose: 1 appl Documented By: ALTAF Omeprazole (Omeprazole 20 Mg Capsule.) 20 mg PO BID@0630,1630 [facility] Last Admin: 08/21/22 06:16 Dose: Not Given Documented By: RUBENS Non-Admin Reason: Patient Refused Ondansetron HCl (Ondansetron Hcl 4 Mg/2 Ml Vial) 4 mg IVPUSH Q8H PRN PRN Reason: Nausea and Vomiting Pharmacy Consult (Consult Rx Etoh Phenob Im/Po) 1 each MISCELLANE ONCE PRN; Protocol PRN Reason: Consult order Pharmacy Consult (Consult Rx Perform Med Rec) 1 each MISCELLANE ONCE PRN PRN Reason: Consult order Sodium Chloride (0.9 % Sodium Chloride Flush 3 Ml Syringe) 3 ml IVFLUSH QSHIFT [facility] Last Admin: 08/21/22 14:28 Dose: Not Given Documented By: DERICK Non-Admin Reason: No Access Tamsulosin HCl (Tamsulosin Hcl 0.4 Mg Capsule) 0.4 mg PO DAILY@1700 [facility] Last Admin: 08/20/22 15:21 Dose: 0.4 mg Documented By: JIMBO Thiamine HCl (Thiamine Hcl 100 Mg Tablet) 100 mg PO DAILY [facility] Last Admin: 08/21/22 08:59 Dose: 100 mg Documented By: FRANCISCONM Labs 08/17/22 07:15 08/21/22 06:16 Labs: Laboratory Results - last 24 hr 08/14/22 08/20/22 08/20/22 14:35 16:34 20:06 Anion Gap Estim Creat Clear Calc Estimated GFR POC Glucose 153 H 139 H Random Glucose Calcium Total Bilirubin Direct Bilirubin AST ALT Alkaline Phosphatase Total Protein Albumin CSF Lyme IgG Bands Det TNP CSF Lyme IgM Bands Det TNP 08/21/22 08/21/22 08/21/22 06:16 07:34 11:34 Anion Gap 17 Estim Creat Clear Calc 72.3 Estimated GFR > 60 POC Glucose 115 152 H Random Glucose 114 Calcium 7.4 L Total Bilirubin 0.7 Direct Bilirubin 0.1 AST 71 H ALT 95 H Alkaline Phosphatase 142 H Total Protein 5.2 L Albumin 2.6 L CSF Lyme IgG Bands Det CSF Lyme IgM Bands Det Assessment and Plan (1) Acute encephalopathy: Status: Acute Plan 66yo M with AUD presenting with weakness, admitted for EtOH withdrawal, hypoNa, and hypoK course complicated by fever and encephalopathy # Transaminitis - Abd CT showed steatohepatitis; h/o etoh abuse - LFTs trending down - statin on hold # Fever, intermittent - possible drug induced - possible spectrum of serotonin syndrome - all psych meds on hold - last documented fever 08/16/22 fever 100.2 - RPP negative, Chest CT/abdominal CT no infectious source, UA negative - BCx negative x 2 - s/p LP 08/14 - protein 64, but otherwise unremarkable, meningoencephalitis panel negative - seen by ID - all infectious work up negative - abx d/c # Acute toxic metabolic encephalopathy. - Improving. - likely multifactorial due to fever, etoh withdrawal, electrolyte abnormalities, renal failure, medication - brain CT negative - no CO2 retention - continue holding sedatives - seen by neurology - Psych consulted for capacity - resconsulted #Mild rhabdo - CPK trending down - ? r/t rigors from fever; ?possible drug related - statin on hold - will continue to try to get IV line and IV fluids but pt so far refusing #Hypomagnesemia/hypokalemia - repleted #LAUREN. resolved -likely pre-renal 2/2 dehydration #paroxysmal atrial fibrillation - back in sinus rhythm - seen by cardiology, poor candidate for ac given alcohol abuse and falls #EtOH withdrawal - no longer withdrawing - phenobarbitol on hold for encephalopathy/lethargy - possible contributing to drug related cause of fever - continue thiamine, folic acid supplementation #coagulopathy -INR 1.5, down to 1.2 - ?r/t liver dz - IV vit K and FFP given prior to LP # hypoNa - suspect hypovolemia + beer potomania; resolved #Elevated troponin - likely demand from tachycardia - trended down # AUD B vitamins, Addiction Med consult #chronic HFpEF not in acute exacerbation # COPD, not in acute exacerbation prn albuterol DM2 A1c 7.7 (07/06/22) SSI VTE ppx:lovenox dispo - declining to participate with PT continued inpatient hospitalization for the following reasons: specialist eval for capacity, safe dispo at this time sister in law is health care proxy. pending Psych eval for capacity Time Spent With Patient Time: Total time managing care of this patient today ____ minutes. Quality Stroke Does the patient have a stroke diagnosis?: No VTE Prior VTE?: No VTE Risk Level:: Medical - low VTE Device Contraindication: Treatment Not Indicated VTE Drug Contraindication: Treatment Not Indicated
[2022-08-21 15:53] VITALS: O2SAT 92
[2022-08-21 16:00] VITALS: BP 133/61; PULSE 85; RESP 18; TEMP 36.1; O2SAT 91
[2022-08-21] MEDS: Omeprazole 20 MG CAPSULE.DR PO (16:53)
[2022-08-21] MEDS: Tamsulosin HCL 0.4 MG CAPSULE PO (16:53)
--- NOTE | 2022-08-21 23:23 | PC.NURSE ---
pt refused insulin, Vs, and care. no IV access, he pulled out the PICC line in the day shift. notified. monitor for pt's safe and care.
[2022-08-22 02:21] VITALS: BP 159/65; PULSE 84; RESP 16; TEMP 36.6; O2SAT 94
[2022-08-22] MEDS: Omeprazole 20 MG CAPSULE.DR PO ×2 (05:52→16:37)
[2022-08-22] MEDS: Enoxaparin Sodium 40 MG/0.4 ML SYRINGE SUBCUT (05:52)
[2022-08-22] MEDS: Multivitamin TABLET 1 TAB PO (08:33)
[2022-08-22] MEDS: Thiamine HCL 100 MG TABLET PO (08:33)
[2022-08-22] MEDS: Folic Acid 1 MG TABLET PO (08:33)
--- NOTE | 2022-08-22 10:28 | HO.PM.IMPN ---
Subjective Subjective Date of Service: 08/22/22 Interval History: seen and examined this morning encephalopathy, ALCOHOL no fever for several days, reports feeling ok intermittently declining vitals, labs, and working with PT, uncooperative Review of Systems Review of Systems: Yes all other systems are reviewed and are negative Constitutional Constitutional: Denies chills and Denies fever(s) Cardiovascular Cardiovascular: Denies chest pain, Denies palpitations and Denies dyspnea Respiratory Respiratory: Denies dyspnea Gastrointestinal Gastrointestinal: Denies abdominal pain Endocrine Endocrine: Denies palpitations Physical Exam Vital Signs: Vital Signs: Last Vital Signs Temp 97.9 F 08/22/22 02:21 Pulse 84 08/22/22 02:21 Resp 16 08/22/22 02:21 BP 159/65 H 08/22/22 02:21 Pulse Ox 94 08/22/22 02:21 O2 Del Method Room Air 08/22/22 02:21 O2 Flow Rate 2 08/14/22 07:00 BMI result Body Mass Index 33.4 Appearing in no acute distress lung sounds are clear to auscultation heart regular rate rhythm, clear S1, S2 positive bowel sounds, abdomen is soft, nontender neuro patient is alert x3, no focal deficits Objective Data Active Medications Acetaminophen (Acetaminophen 325 Mg Tablet) 650 mg PO Q6H PRN PRN Reason: Pain, Mild (Pain Scale 1-3) Last Admin: 08/16/22 11:12 Dose: 650 mg Documented By: CASPER Albuterol/Ipratropium (Albuterol/Iprat 2.5/0.5mg 3 Ml Ampul.Neb) 3 ml INHALE Q4H PRN PRN Reason: shortness of breath/wheezing Last Admin: 08/19/22 03:10 Dose: 3 ml Documented By: MALCOLM Aspirin (Aspirin Enteric Coated 81 Mg Tablet.Dr) 81 mg PO DAILY [facility] Last Admin: 08/13/22 08:29 Dose: 81 mg Documented By: GINGER Heparin Sodium (Porcine) 50 (units/ Sodium Chloride 5 ml) 0 units IVFLUSH TID [facility] Last Admin: 08/22/22 07:18 Dose: Not Given Documented By: MERYL Non-Admin Reason: No Access Docusate Sodium (Docusate Sodium 100 Mg Capsule) 100 mg PO DAILY PRN PRN Reason: Constipation Enoxaparin Sodium (Enoxaparin Sodium 40 Mg/0.4 Ml Syringe) 40 mg SUBCUT Q24H [facility] Last Admin: 08/22/22 05:52 Dose: 40 mg Documented By: ISAAC Folic Acid (Folic Acid 1 Mg Tablet) 1 mg PO DAILY [facility] Last Admin: 08/22/22 08:33 Dose: 1 mg Documented By: MERYL Glucose (Glucose Gel 15 Gm Gel..Gram.) 15 gm PO Q15M PRN; Protocol PRN Reason: per Hypoglycemia Standing Ord. Guaifenesin/Dextromethorphan (Guaifenesin Dm 100/10/5 Ml 5 Ml Syrup) 5 ml PO Q6H PRN PRN Reason: Cough Last Admin: 08/15/22 12:17 Dose: 5 ml Documented By: ALETHEA Dextrose (D10) 250 mls @ 750 mls/hr IV Q15M PRN; Protocol PRN Reason: per Hypoglycemia Standing Ord. Insulin Human Lispro (Insulin Lispro 100 Unit/Ml 3 Ml Vial) 0 unit SUBCUT QIDACHS [facility]; Protocol Last Admin: 08/22/22 08:03 Dose: Not Given Documented By: MERYL Non-Admin Reason: Pt refused POC Multivitamins/Vitamin C (Multivitamin Tablet) 1 tab PO DAILY [facility] Last Admin: 08/22/22 08:33 Dose: 1 tab Documented By: MERYL Nystatin (Nystatin Powder 15 Gm Bottle) 1 appl TOPICAL BID [facility]; Protocol Last Admin: 08/22/22 08:34 Dose: Not Given Documented By: MERYL Non-Admin Reason: Patient Refused Omeprazole (Omeprazole 20 Mg ) 20 mg PO BID@0630,1630 [facility] Last Admin: 08/22/22 05:52 Dose: 20 mg Documented By: ISAAC Ondansetron HCl (Ondansetron Hcl 4 Mg/2 Ml Vial) 4 mg IVPUSH Q8H PRN PRN Reason: Nausea and Vomiting Pharmacy Consult (Consult Rx Etoh Phenob Im/Po) 1 each MISCELLANE ONCE PRN; Protocol PRN Reason: Consult order Pharmacy Consult (Consult Rx Perform Med Rec) 1 each MISCELLANE ONCE PRN PRN Reason: Consult order Sodium Chloride (0.9 % Sodium Chloride Flush 3 Ml Syringe) 3 ml IVFLUSH QSHIFT [facility] Last Admin: 08/22/22 07:18 Dose: Not Given Documented By: MERYL Non-Admin Reason: No Access Tamsulosin HCl (Tamsulosin Hcl 0.4 Mg Capsule) 0.4 mg PO DAILY@1700 [facility] Last Admin: 08/21/22 16:53 Dose: 0.4 mg Documented By: FRANCISCONM Thiamine HCl (Thiamine Hcl 100 Mg Tablet) 100 mg PO DAILY [facility] Last Admin: 08/22/22 08:33 Dose: 100 mg Documented By: MERYL Labs 08/17/22 07:15 08/21/22 06:16 Labs: Laboratory Results - last 24 hr 08/21/22 11:34 POC Glucose 152 H Assessment and Plan (1) Acute encephalopathy: Status: Acute Plan 66yo M with AUD presenting with weakness, admitted for EtOH withdrawal, hypoNa, and hypoK course complicated by fever and encephalopathy Transaminitis Abd CT showed steatohepatitis; h/o etoh abuse LFTs trending down statin on hold Fever, intermittent possible drug induced - possible spectrum of serotonin syndrome - all psych meds on hold last documented fever 08/16/22 fever 100.2 RPP negative, Chest CT/abdominal CT no infectious source, UA negative BCx negative x 2 s/p LP / - protein 64, but otherwise unremarkable, meningoencephalitis panel negative seen by ID all infectious work up negative - abx d/c Acute toxic metabolic encephalopathy. likely multifactorial due to fever, etoh withdrawal, electrolyte abnormalities, renal failure, medication brain CT negative no CO2 retention continue holding sedatives seen by neurology Psych consulted for capacity - resconsulted Mild rhabdo CPK trending down ? r/t rigors from fever; ?possible drug related statin on hold will continue to try to get IV line and IV fluids but pt so far refusing Hypomagnesemia/hypokalemia repleted LAUREN. resolved likely pre-renal 2/2 dehydration paroxysmal atrial fibrillation back in sinus rhythm seen by cardiology, poor candidate for ac given alcohol abuse and falls EtOH withdrawal no longer withdrawing phenobarbitol on hold for encephalopathy/lethargy - possible contributing to drug related cause of fever continue thiamine, folic acid supplementation coagulopathy INR 1.5, down to 1.2 ?r/t liver dz IV vit K and FFP given prior to LP hypoNa suspect hypovolemia + beer potomania; resolved Elevated troponin likely demand from tachycardia trended down AUD B vitamins, Addiction Med consult chronic HFpEF not in acute exacerbation COPD, not in acute exacerbation prn albuterol DM2 A1c 7.7 (07/06/22) SSI VTE ppx: lovenox Attending Dr. Tate dispo - declining to participate with PT continued inpatient hospitalization for the following reasons: specialist eval for capacity, safe dispo, at this time sister in law is health care proxy. pending Psych eval for capacity Time Spent With Patient Time: Total time managing care of this patient today ____ minutes. Quality Stroke Does the patient have a stroke diagnosis?: No VTE Prior VTE?: No VTE Risk Level:: Medical - low VTE Device Contraindication: Treatment Not Indicated VTE Drug Contraindication: Treatment Not Indicated
--- NOTE | 2022-08-22 15:06 | P.CNPS_ITS ---
History of Present Illness Date of Service: 08/22/22 Chief Complaint: alcohol withdrawal Requesting physician: Patsy Greco Discussed with referring provider: Yes Sources of Information: patient interviewed (Patient would not allow full assessment went to see the patient on multiple occasions) and chart reviewed Additional Sources of Information: Case management HPI Narrative: The patient is a 66-year-old male living alone with a medical history of alcohol dependence, COPD, diabetes mellitus paroxysmal atrial fibrillation, diastolic heart failure who presented to the hospital with complaints of generalized weakness in the context poor food and fluid intake and drinking reportedly least a pt of alcohol daily. He was treated for alcohol withdrawal hyponatremia and hypokalemia. He did have episodes of transaminitis fever of unclear origin that was worked up by Infectious Disease without clear etiology and periods of encephalopathy LP was negative. The patient is reportedly often not getting out of bed not engaging in physical therapy and complaining and just asking to be left alone. He has been refusing outpatient services reportedly and refusing rehab intermittently refusing vitals and medication Medical Evaluation Reviewed: Yes Personal & Social History: For the patient lives alone long history of alcoholism reportedly. He has a sister who is his healthcare proxy [facility] Medical History (Updated 08/25/22 @ 10:32 by Abhijit Rincon MD) Acute diastolic CHF (congestive heart failure) Acute hyponatremia Acute respiratory failure with hypoxia Acute respiratory failure with hypoxia LAUREN (acute kidney injury) Alcohol abuse Alcohol use disorder Anxiety Bilateral pleural effusion Cellulitis, scrotum Contusion of rib on left side COPD (chronic obstructive pulmonary disease) Diabetes mellitus type 1 Diastolic dysfunction Diastolic heart failure DMII (diabetes mellitus, type 2) Electrolyte abnormality Elevated troponin Fall Fall Fungal dermatitis Gram-positive bacteremia HLD (hyperlipidemia) Hypertension Metabolic acidosis Metabolic acidosis Nonrheumatic aortic (valve) stenosis Obesity Pneumonia Rhabdomyolysis Surgical History H/O elbow surgery H/O shoulder surgery History of hydrocelectomy S/P TURP Family History: Deferred Social History: Deferred Trauma History: Deferred Diagnostics Vital Signs (24Hr): Vital Signs - 24 hr 08/21/22 15:53 08/21/22 16:00 08/22/22 02:21 Temperature 97.0 F 97.9 F Pulse Rate 85 84 Respiratory Rate 18 16 Blood Pressure 133/61 159/65 H Pulse Oximetry 92 91 L 94 Oxygen Delivery Method Room Air Room Air Room Air BMI result Body Mass Index 33.4 Labs 08/17/22 07:15 08/21/22 06:16 Labs: Laboratory Results - last 48 hr 08/14/22 08/20/22 08/20/22 14:35 16:34 20:06 Sodium Potassium Chloride Carbon Dioxide Anion Gap BUN Creatinine Estim Creat Clear Calc Estimated GFR POC Glucose 153 H 139 H Random Glucose Calcium Total Bilirubin Direct Bilirubin AST ALT Alkaline Phosphatase Total Protein Albumin CSF Lyme IgG Bands Det TNP CSF Lyme IgM Bands Det TNP 08/21/22 08/21/22 08/21/22 06:16 07:34 11:34 Sodium 142 Potassium 4.7 D Chloride 101 Carbon Dioxide 29 Anion Gap 17 BUN 9 Creatinine 1.15 Estim Creat Clear Calc 72.3 Estimated GFR > 60 POC Glucose 115 152 H Random Glucose 114 Calcium 7.4 L Total Bilirubin 0.7 Direct Bilirubin 0.1 AST 71 H ALT 95 H Alkaline Phosphatase 142 H Total Protein 5.2 L Albumin 2.6 L CSF Lyme IgG Bands Det CSF Lyme IgM Bands Det Imaging Radiology Impressions: ITS Impressions Chest X-Ray 08/12/22 20:10 IMPRESSION: Mild increased interstitial opacities in the right lung may be partially due to position, although asymmetric edema cannot be excluded. Chest CT 08/12/22 21:31 IMPRESSION: 1. No large pulmonary nodule, mass, or confluent airspace consolidation. 2. Stable, prominent precarinal lymph node. No new or increasing lymphadenopathy. Fleischner guidelines were followed. Head CT 08/12/22 21:31 IMPRESSION: No acute intracranial pathology. Abdomen/Pelvis CT 08/13/22 08:36 IMPRESSION: * No acute imaging abnormalities in the abdomen or pelvis compared 03/15/2022. * Liver is diffusely hypodense from steatosis or steatohepatitis. * Persistent nonspecific edema of perinephric fat. No renal stones or hydroureteronephrosis. * Colonic diverticulosis without diverticulitis. Chest X-Ray 08/14/22 07:59 IMPRESSION: Unremarkable chest examination. Lumbar Puncture Fluoroscopy 08/14/22 15:00 IMPRESSION: Successful fluoroscopy-guided L4-L5 lumbar puncture performed. Mental Status Exam Mental Status Exam Narrative: The patient was seen on 06/12 occasions in his room. He is lying in bed and he was informed that I was a psychiatrist there to discuss cussed with him issues related his capacity to make medical decisions and that there had been concerns regarding confusion and his ability regarding self-care. The patient would frequently state I do not want to talk leave me alone he did complain of shoulder pain he was disheveled patient would not engage in any type of cognitive evaluation he did state he did not want to go to rehab but could not explain how he would care for himself at home in stated she did not want services. He stated he had meals on wheels and that this helped him with his medication tried to discuss this with him and other issues regarding his healthcare in his ambulation difficulties and he was unable or unwilling to engage patient is mood appeared dysphoric and anxious denied self-harming thoughts no gross hallucinations or delusional material insight and judgment were grossly impaired Medications Medications Current Medications Acetaminophen (Acetaminophen 325 Mg Tablet) 650 mg PO Q6H PRN PRN Reason: Pain, Mild (Pain Scale 1-3) Last Admin: 08/16/22 11:12 Dose: 650 mg Albuterol/Ipratropium (Albuterol/Iprat 2.5/0.5mg 3 Ml Ampul.Neb) 3 ml INHALE Q4H PRN PRN Reason: shortness of breath/wheezing Last Admin: 08/19/22 03:10 Dose: 3 ml Aspirin (Aspirin Enteric Coated 81 Mg Tablet.) 81 mg PO DAILY COUNT [facility]CLUD[facility] Last Admin: 08/13/22 08:29 Dose: 81 mg Heparin Sodium (Porcine) 50 (units/ Sodium Chloride 5 ml) 0 units IVFLUSH TID COUNT INCLUDES THE [facility] Last Admin: 08/22/22 12:52 Dose: Not Given Docusate Sodium (Docusate Sodium 100 Mg Capsule) 100 mg PO DAILY PRN PRN Reason: Constipation Enoxaparin Sodium (Enoxaparin Sodium 40 Mg/0.4 Ml Syringe) 40 mg SUBCUT Q24H COUNT INCLUDES [facility] Last Admin: 08/22/22 05:52 Dose: 40 mg Folic Acid (Folic Acid 1 Mg Tablet) 1 mg PO DAILY COUNT [facility]CLUDES [facility] Last Admin: 08/22/22 08:33 Dose: 1 mg Glucose (Glucose Gel 15 Gm Gel..Gram.) 15 gm PO Q15M PRN; Protocol PRN Reason: per Hypoglycemia Standing Ord. Guaifenesin/Dextromethorphan (Guaifenesin Dm 100/10/5 Ml 5 Ml Syrup) 5 ml PO Q6H PRN PRN Reason: Cough Last Admin: 08/15/22 12:17 Dose: 5 ml Dextrose (D10) 250 mls @ 750 mls/hr IV Q15M PRN; Protocol PRN Reason: per Hypoglycemia Standing Ord. Insulin Human Lispro (Insulin Lispro 100 Unit/Ml 3 Ml Vial) 0 unit SUBCUT QIDACHS COUNT INCLUDES THE [facility]; Protocol Last Admin: 08/22/22 12:20 Dose: Not Given Multivitamins/Vitamin C (Multivitamin Tablet) 1 tab PO DAILY COUNT [facility]CLUDES [facility] Last Admin: 08/22/22 08:33 Dose: 1 tab Nystatin (Nystatin Powder 15 Gm Bottle) 1 appl TOPICAL BID COUNT INCLUDES THE [facility]; Protocol Last Admin: 08/22/22 08:34 Dose: Not Given Omeprazole (Omeprazole 20 Mg Capsule.Dr) 20 mg PO BID@0630,1630 COUNT [facility]CLUDES [facility] Last Admin: 08/22/22 05:52 Dose: 20 mg Ondansetron HCl (Ondansetron Hcl 4 Mg/2 Ml Vial) 4 mg IVPUSH Q8H PRN PRN Reason: Nausea and Vomiting Pharmacy Consult (Consult Rx Etoh Phenob Im/Po) 1 each MISCELLANE ONCE PRN; Protocol PRN Reason: Consult order Pharmacy Consult (Consult Rx Perform Med Rec) 1 each MISCELLANE ONCE PRN PRN Reason: Consult order Sodium Chloride (0.9 % Sodium Chloride Flush 3 Ml Syringe) 3 ml IVFLUSH QSHIFT COUNT [facility]CLUDES [facility] Last Admin: 08/22/22 12:52 Dose: Not Given Tamsulosin HCl (Tamsulosin Hcl 0.4 Mg Capsule) 0.4 mg PO DAILY@1700 COUNT [facility] Last Admin: 08/21/22 16:53 Dose: 0.4 mg Thiamine HCl (Thiamine Hcl 100 Mg Tablet) 100 mg PO DAILY COUNT [facility]CLUDES [facility] Last Admin: 08/22/22 08:33 Dose: 100 mg Allergies Allergies Allergy/AdvReac Type Severity Reaction Status Date / Time environmental allergies Allergy Sneezing Verified 07/08/22 08:40 Assessment & Plan Assessment & Plan (1) Altered mental state: Status: Acute Code(s): R41.82 - Altered mental status, unspecified (2) Generalized weakness: Status: Acute Code(s): R53.1 - Weakness (3) Alcohol use disorder: Status: Acute Code(s): F10.90 - Alcohol use, unspecified, uncomplicated Plan The patient at this time clearly lacks capacity to make medical decisions for himself. Is unclear to me whether this is his baseline state or not or whether this is more a result of an extended withdrawal syndrome or other encephalopathic process. He has had extensive workup. Patient does not seem capable of caring for himself at home at this time does not seem to be able to take in information or way information and make a reasoned decision case was reviewed with case management and with hospitalist service if patient goes to rehab setting should be cognitively re-evaluated in that setting Total time managing care of this patient today 45____ minutes. Informed Consent: does not understand
[2022-08-22 16:07] VITALS: BP 134/57; PULSE 84; RESP 20; TEMP 36; O2SAT 93
[2022-08-22] MEDS: Tamsulosin HCL 0.4 MG CAPSULE PO (16:37)
[2022-08-22] MEDS: Nystatin Powder 15 GM BOTTLE 1 APPL TOPICAL (22:00)
[2022-08-22 22:07] LABS: Glucose, Whole Blood 127 mg/dL (60-115)
[2022-08-22] MEDS: Acetaminophen 325 MG TABLET 650 MG PO (22:07)
--- NOTE | 2022-08-23 05:36 | PC.NURSE ---
pt refused Enoxaparin 40mg injection and omeprazole 20 mg. I'm not gonna take that, not gonna notified.
--- NOTE | 2022-08-23 10:48 | P.PNIM_ITS ---
Subjective Subjective Date of Service: 08/23/22 Interval History: seen and examined this morning encephalopathy, ALCOHOL no fever for several days, reports feeling ok intermittently declining vitals, labs, and working with PT, uncooperative Review of Systems Review of Systems: Yes all other systems are reviewed and are negative Constitutional Constitutional: Denies chills and Denies fever(s) Cardiovascular Cardiovascular: Denies chest pain, Denies palpitations and Denies dyspnea Respiratory Respiratory: Denies dyspnea Gastrointestinal Gastrointestinal: Denies abdominal pain Endocrine Endocrine: Denies palpitations Physical Exam Vital Signs: Vital Signs: Last Vital Signs Temp 96.8 F 08/22/22 16:07 Pulse 84 08/22/22 16:07 Resp 20 08/22/22 16:07 BP 134/57 L 08/22/22 16:07 Pulse Ox 93 08/22/22 16:07 O2 Del Method Room Air 08/22/22 16:07 O2 Flow Rate 2 08/14/22 07:00 BMI result Body Mass Index 33.4 Appearing in no acute distress lung sounds are clear to auscultation heart regular rate rhythm, clear S1, S2 positive bowel sounds, abdomen is soft, nontender neuro patient is alert x3, no focal deficits Objective Data Active Medications Acetaminophen (Acetaminophen 325 Mg Tablet) 650 mg PO Q6H PRN PRN Reason: Pain, Mild (Pain Scale 1-3) Last Admin: 08/22/22 22:07 Dose: 650 mg Documented By: ISAAC Aspirin (Aspirin Enteric Coated 81 Mg Tablet.Dr) 81 mg PO DAILY [facility] Last Admin: 08/13/22 08:29 Dose: 81 mg Documented By: GINGER Heparin Sodium (Porcine) 50 (units/ Sodium Chloride 5 ml) 0 units IVFLUSH TID [facility] Last Admin: 08/23/22 07:13 Dose: Not Given Documented By: MERYL Non-Admin Reason: No Access Docusate Sodium (Docusate Sodium 100 Mg Capsule) 100 mg PO DAILY PRN PRN Reason: Constipation Enoxaparin Sodium (Enoxaparin Sodium 40 Mg/0.4 Ml Syringe) 40 mg SUBCUT Q24H [facility] Last Admin: 08/23/22 06:49 Dose: Not Given Documented By: ISAAC Non-Admin Reason: Patient Refused Folic Acid (Folic Acid 1 Mg Tablet) 1 mg PO DAILY [facility] Last Admin: 08/23/22 08:49 Dose: Not Given Documented By: MERYL Non-Admin Reason: Patient Refused Glucose (Glucose Gel 15 Gm Gel..Gram.) 15 gm PO Q15M PRN; Protocol PRN Reason: per Hypoglycemia Standing Ord. Guaifenesin/Dextromethorphan (Guaifenesin Dm 100/10/5 Ml 5 Ml Syrup) 5 ml PO Q6H PRN PRN Reason: Cough Last Admin: 08/15/22 12:17 Dose: 5 ml Documented By: ALETHEA Dextrose (D10) 250 mls @ 750 mls/hr IV Q15M PRN; Protocol PRN Reason: per Hypoglycemia Standing Ord. Insulin Human Lispro (Insulin Lispro 100 Unit/Ml 3 Ml Vial) 0 unit SUBCUT QIDACHS [facility]; Protocol Last Admin: 08/23/22 08:15 Dose: Not Given Documented By: MERYL Non-Admin Reason: pt refused POC Multivitamins/Vitamin C (Multivitamin Tablet) 1 tab PO DAILY [facility] Last Admin: 08/23/22 08:49 Dose: Not Given Documented By: MERYL Non-Admin Reason: Patient Refused Nystatin (Nystatin Powder 15 Gm Bottle) 1 appl TOPICAL BID [facility]; Protocol Last Admin: 08/23/22 08:49 Dose: Not Given Documented By: MERYL Non-Admin Reason: Patient Refused Omeprazole (Omeprazole 20 Mg Capsule.) 20 mg PO BID@0630,1630 [facility] Last Admin: 08/23/22 06:50 Dose: Not Given Documented By: ISAAC Non-Admin Reason: Patient Refused Ondansetron HCl (Ondansetron Hcl 4 Mg/2 Ml Vial) 4 mg IVPUSH Q8H PRN PRN Reason: Nausea and Vomiting Pharmacy Consult (Consult Rx Etoh Phenob Im/Po) 1 each MISCELLANE ONCE PRN; Protocol PRN Reason: Consult order Pharmacy Consult (Consult Rx Perform Med Rec) 1 each MISCELLANE ONCE PRN PRN Reason: Consult order Sodium Chloride (0.9 % Sodium Chloride Flush 3 Ml Syringe) 3 ml IVFLUSH QSHIFT [facility] Last Admin: 08/23/22 07:04 Dose: Not Given Documented By: MERYL Non-Admin Reason: No Access Tamsulosin HCl (Tamsulosin Hcl 0.4 Mg Capsule) 0.4 mg PO DAILY@1700 [facility] Last Admin: 08/22/22 16:37 Dose: 0.4 mg Documented By: MERYL Thiamine HCl (Thiamine Hcl 100 Mg Tablet) 100 mg PO DAILY [facility] Last Admin: 08/23/22 08:49 Dose: Not Given Documented By: MERYL Non-Admin Reason: Patient Refused Labs 08/17/22 07:15 08/21/22 06:16 Labs: Laboratory Results - last 24 hr 08/22/22 22:04 POC Glucose 127 H Assessment and Plan (1) Acute encephalopathy: Status: Acute Plan 66yo M with AUD presenting with weakness, admitted for EtOH withdrawal, hypoNa, and hypoK course complicated by fever and encephalopathy Transaminitis Abd CT showed steatohepatitis; h/o etoh abuse LFTs trending down statin on hold Fever, intermittent possible drug induced - possible spectrum of serotonin syndrome - all psych meds on hold last documented fever 08/16/22 fever 100.2 RPP negative, Chest CT/abdominal CT no infectious source, UA negative BCx negative x 2 s/p LP 08/14 - protein 64, but otherwise unremarkable, meningoencephalitis panel negative seen by ID all infectious work up negative - abx d/c Acute toxic metabolic encephalopathy. likely multifactorial due to fever, etoh withdrawal, electrolyte abnormalities, renal failure, medication brain CT negative no CO2 retention continue holding sedatives seen by neurology Psych consulted for capacity -NO CAPACITY Mild rhabdo CPK trending down ? r/t rigors from fever; ?possible drug related statin on hold will continue to try to get IV line and IV fluids but pt so far refusing Hypomagnesemia/hypokalemia repleted LAUREN. resolved likely pre-renal 2/2 dehydration paroxysmal atrial fibrillation back in sinus rhythm seen by cardiology, poor candidate for ac given alcohol abuse and falls EtOH withdrawal no longer withdrawing phenobarbitol on hold for encephalopathy/lethargy - possible contributing to drug related cause of fever continue thiamine, folic acid supplementation coagulopathy INR 1.5, down to 1.2 ?r/t liver dz IV vit K and FFP given prior to LP hypoNa suspect hypovolemia + beer potomania; resolved Elevated troponin likely demand from tachycardia trended down AUD B vitamins, Addiction Med consult chronic HFpEF not in acute exacerbation COPD, not in acute exacerbation prn albuterol DM2 A1c 7.7 (07/06/22) SSI VTE ppx: lovenox Attending Dr. Tate dispo - declining to participate with PT continued inpatient hospitalization for the following reasons: safe dispo, at this time sister in law is health care proxy. Time Spent With Patient Time: Total time managing care of this patient today ____ minutes. Quality Stroke Does the patient have a stroke diagnosis?: No VTE Prior VTE?: No VTE Risk Level:: Medical - low VTE Device Contraindication: Treatment Not Indicated VTE Drug Contraindication: Treatment Not Indicated
[2022-08-23 19:37] VITALS: BP 124/58; PULSE 84; RESP 16; TEMP 36.6; O2SAT 93
[2022-08-23] MEDS: Nystatin Powder 15 GM BOTTLE 1 APPL TOPICAL (20:57)
--- NOTE | 2022-08-24 09:19 | MHC.CLN ---
NUTRITION REVIEW OF INTAKE DOCUMENTATION SHOWS MANY MEALS WITH POOR INTAKE. ADDING ENSURE BID TO PROVIDE ADDITIONAL NUTRITION. PROVIDES 700 KCALS, 40 G PROTEIN. MONITOR INTAKE.
--- NOTE | 2022-08-24 10:49 | HO.PM.IMPN ---
Subjective Subjective Date of Service: 08/24/22 Interval History: seen and examined this morning encephalopathy, ALCOHOL no fever for several days, reports feeling ok intermittently declining vitals, labs, and working with PT, uncooperative Review of Systems Review of Systems: Yes all other systems are reviewed and are negative Constitutional Constitutional: Denies chills and Denies fever(s) Cardiovascular Cardiovascular: Denies chest pain, Denies palpitations and Denies dyspnea Respiratory Respiratory: Denies dyspnea Gastrointestinal Gastrointestinal: Denies abdominal pain Endocrine Endocrine: Denies palpitations Physical Exam Vital Signs: Vital Signs: Last Vital Signs Temp 97.8 F 08/23/22 19:37 Pulse 84 08/23/22 19:37 Resp 16 08/23/22 19:37 BP 124/58 L 08/23/22 19:37 Pulse Ox 93 08/23/22 19:37 O2 Del Method Room Air 08/23/22 19:37 O2 Flow Rate 2 08/14/22 07:00 BMI result Body Mass Index 33.4 Appearing in no acute distress lung sounds are clear to auscultation heart regular rate rhythm, clear S1, S2 positive bowel sounds, abdomen is soft, nontender neuro patient is alert x3, no focal deficits Objective Data Active Medications Acetaminophen (Acetaminophen 325 Mg Tablet) 650 mg PO Q6H PRN PRN Reason: Pain, Mild (Pain Scale 1-3) Last Admin: 08/22/22 22:07 Dose: 650 mg Documented By: ISAAC Aspirin (Aspirin Enteric Coated 81 Mg Tablet.) 81 mg PO DAILY [facility] Last Admin: 08/13/22 08:29 Dose: 81 mg Documented By: GINGER Heparin Sodium (Porcine) 50 (units/ Sodium Chloride 5 ml) 0 units IVFLUSH TID [facility] Last Admin: 08/24/22 06:57 Dose: Not Given Documented By: MERYL Non-Admin Reason: No Access Docusate Sodium (Docusate Sodium 100 Mg Capsule) 100 mg PO DAILY PRN PRN Reason: Constipation Enoxaparin Sodium (Enoxaparin Sodium 40 Mg/0.4 Ml Syringe) 40 mg SUBCUT Q24H [facility] Last Admin: 08/24/22 05:08 Dose: Not Given Documented By: IBETH Non-Admin Reason: Patient Refused Folic Acid (Folic Acid 1 Mg Tablet) 1 mg PO DAILY [facility] Last Admin: 08/24/22 09:36 Dose: Not Given Documented By: MERYL Non-Admin Reason: Patient Refused Glucose (Glucose Gel 15 Gm Gel..Gram.) 15 gm PO Q15M PRN; Protocol PRN Reason: per Hypoglycemia Standing Ord. Guaifenesin/Dextromethorphan (Guaifenesin Dm 100/10/5 Ml 5 Ml Syrup) 5 ml PO Q6H PRN PRN Reason: Cough Last Admin: 08/15/22 12:17 Dose: 5 ml Documented By: ALETHEA Dextrose (D10) 250 mls @ 750 mls/hr IV Q15M PRN; Protocol PRN Reason: per Hypoglycemia Standing Ord. Insulin Human Lispro (Insulin Lispro 100 Unit/Ml 3 Ml Vial) 0 unit SUBCUT QIDACHS [facility]; Protocol Last Admin: 08/24/22 09:09 Dose: Not Given Documented By: MERYL Non-Admin Reason: pt refused POC Multivitamins/Vitamin C (Multivitamin Tablet) 1 tab PO DAILY [facility] Last Admin: 08/24/22 09:36 Dose: Not Given Documented By: MERYL Non-Admin Reason: Patient Refused Nystatin (Nystatin Powder 15 Gm Bottle) 1 appl TOPICAL BID [facility]; Protocol Last Admin: 08/24/22 09:37 Dose: Not Given Documented By: MERYL Non-Admin Reason: Patient Refused Omeprazole (Omeprazole 20 Mg Capsule.) 20 mg PO BID@0630,1630 [facility] Last Admin: 08/24/22 05:08 Dose: Not Given Documented By: IBETH Non-Admin Reason: Patient Refused Ondansetron HCl (Ondansetron Hcl 4 Mg/2 Ml Vial) 4 mg IVPUSH Q8H PRN PRN Reason: Nausea and Vomiting Pharmacy Consult (Consult Rx Etoh Phenob Im/Po) 1 each MISCELLANE ONCE PRN; Protocol PRN Reason: Consult order Pharmacy Consult (Consult Rx Perform Med Rec) 1 each MISCELLANE ONCE PRN PRN Reason: Consult order Sodium Chloride (0.9 % Sodium Chloride Flush 3 Ml Syringe) 3 ml IVFLUSH QSHIFT [facility] Last Admin: 08/24/22 06:57 Dose: Not Given Documented By: MERYL Non-Admin Reason: No Access Tamsulosin HCl (Tamsulosin Hcl 0.4 Mg Capsule) 0.4 mg PO DAILY@1700 [facility] Last Admin: 08/23/22 15:59 Dose: Not Given Documented By: MERYL Non-Admin Reason: Patient Refused Thiamine HCl (Thiamine Hcl 100 Mg Tablet) 100 mg PO DAILY [facility] Last Admin: 08/24/22 09:37 Dose: Not Given Documented By: MERYL Non-Admin Reason: Patient Refused Labs 08/17/22 07:15 08/21/22 06:16 Assessment and Plan (1) Acute encephalopathy: Status: Acute Plan 66yo M with AUD presenting with weakness, admitted for EtOH withdrawal, hypoNa, and hypoK course complicated by fever and encephalopathy Transaminitis Abd CT showed steatohepatitis; h/o etoh abuse LFTs trending down statin on hold Fever, intermittent possible drug induced - possible spectrum of serotonin syndrome - all psych meds on hold last documented fever 08/16/22 fever 100.2 RPP negative, Chest CT/abdominal CT no infectious source, UA negative BCx negative x 2 s/p LP 08/14 - protein 64, but otherwise unremarkable, meningoencephalitis panel negative seen by ID all infectious work up negative - abx d/c Acute toxic metabolic encephalopathy. likely multifactorial due to fever, etoh withdrawal, electrolyte abnormalities, renal failure, medication brain CT negative no CO2 retention continue holding sedatives seen by neurology Psych consulted for capacity -NO CAPACITY Mild rhabdo CPK trending down ? r/t rigors from fever; ?possible drug related statin on hold will continue to try to get IV line and IV fluids but pt so far refusing Hypomagnesemia/hypokalemia repleted LAUREN. resolved likely pre-renal 2/2 dehydration paroxysmal atrial fibrillation back in sinus rhythm seen by cardiology, poor candidate for ac given alcohol abuse and falls EtOH withdrawal no longer withdrawing phenobarbitol on hold for encephalopathy/lethargy - possible contributing to drug related cause of fever continue thiamine, folic acid supplementation coagulopathy INR 1.5, down to 1.2 ?r/t liver dz IV vit K and FFP given prior to LP hypoNa suspect hypovolemia + beer potomania; resolved Elevated troponin likely demand from tachycardia trended down AUD B vitamins, Addiction Med consult chronic HFpEF not in acute exacerbation COPD, not in acute exacerbation prn albuterol DM2 A1c 7.7 (07/06/22) SSI VTE ppx: lovenox Attending Dr. Mlapah dispo - intermittently declining to participate with PT, medications and lab draws continued inpatient hospitalization for the following reasons: safe dispo, at this time sister in law is health care proxy. Time Spent With Patient Time: Total time managing care of this patient today ____ minutes. Quality Stroke Does the patient have a stroke diagnosis?: No VTE Prior VTE?: No VTE Risk Level:: Medical - low VTE Device Contraindication: Treatment Not Indicated VTE Drug Contraindication: Treatment Not Indicated
[2022-08-24 19:44] VITALS: RESP 20
[2022-08-24] MEDS: Nystatin Powder 15 GM BOTTLE 1 APPL TOPICAL (21:00)
[2022-08-25] MEDS: Omeprazole 20 MG CAPSULE.DR PO (06:00)
--- NOTE | 2022-08-25 09:52 | HO.PM.IMPN ---
Subjective Subjective Date of Service: 08/25/22 Interval History: seen and examined this morning encephalopathy, ALCOHOL no fever for several days, reports feeling ok intermittently declining vitals, labs, and working with PT, uncooperative Review of Systems Review of Systems: Yes all other systems are reviewed and are negative Constitutional Constitutional: Denies chills and Denies fever(s) Cardiovascular Cardiovascular: Denies chest pain, Denies palpitations and Denies dyspnea Respiratory Respiratory: Denies dyspnea Gastrointestinal Gastrointestinal: Denies abdominal pain Endocrine Endocrine: Denies palpitations Physical Exam Vital Signs: Vital Signs: Last Vital Signs Temp 97.8 F 08/23/22 19:37 Pulse 84 08/23/22 19:37 Resp 20 08/24/22 19:44 BP 124/58 L 08/23/22 19:37 Pulse Ox 93 08/23/22 19:37 O2 Del Method Room Air 08/23/22 19:37 O2 Flow Rate 2 08/14/22 07:00 BMI result Body Mass Index 33.4 Appearing in no acute distress lung sounds are clear to auscultation heart regular rate rhythm, clear S1, S2 positive bowel sounds, abdomen is soft, nontender neuro patient is alert x3, no focal deficits Objective Data Active Medications Acetaminophen (Acetaminophen 325 Mg Tablet) 650 mg PO Q6H PRN PRN Reason: Pain, Mild (Pain Scale 1-3) Last Admin: 08/22/22 22:07 Dose: 650 mg Documented By: ISAAC Aspirin (Aspirin Enteric Coated 81 Mg Tablet.Dr) 81 mg PO DAILY [facility] Last Admin: 08/13/22 08:29 Dose: 81 mg Documented By: GINGER Heparin Sodium (Porcine) 50 (units/ Sodium Chloride 5 ml) 0 units IVFLUSH TID [facility] Last Admin: 08/24/22 21:00 Dose: Not Given Documented By: SHERRI Non-Admin Reason: No Access Docusate Sodium (Docusate Sodium 100 Mg Capsule) 100 mg PO DAILY PRN PRN Reason: Constipation Enoxaparin Sodium (Enoxaparin Sodium 40 Mg/0.4 Ml Syringe) 40 mg SUBCUT Q24H [facility] Last Admin: 08/25/22 06:00 Dose: Not Given Documented By: SHERRI Non-Admin Reason: Patient Refused Folic Acid (Folic Acid 1 Mg Tablet) 1 mg PO DAILY [facility] Last Admin: 08/24/22 09:36 Dose: Not Given Documented By: MERYL Non-Admin Reason: Patient Refused Glucose (Glucose Gel 15 Gm Gel..Gram.) 15 gm PO Q15M PRN; Protocol PRN Reason: per Hypoglycemia Standing Ord. Guaifenesin/Dextromethorphan (Guaifenesin Dm 100/10/5 Ml 5 Ml Syrup) 5 ml PO Q6H PRN PRN Reason: Cough Last Admin: 08/15/22 12:17 Dose: 5 ml Documented By: ALETHEA Dextrose (D10) 250 mls @ 750 mls/hr IV Q15M PRN; Protocol PRN Reason: per Hypoglycemia Standing Ord. Insulin Human Lispro (Insulin Lispro 100 Unit/Ml 3 Ml Vial) 0 unit SUBCUT QIDACHS [facility]; Protocol Last Admin: 08/25/22 09:05 Dose: Not Given Documented By: ALETHEA Non-Admin Reason: Patient Refused Multivitamins/Vitamin C (Multivitamin Tablet) 1 tab PO DAILY [facility] Last Admin: 08/24/22 09:36 Dose: Not Given Documented By: MERYL Non-Admin Reason: Patient Refused Nystatin (Nystatin Powder 15 Gm Bottle) 1 appl TOPICAL BID [facility]; Protocol Last Admin: 08/24/22 21:00 Dose: 1 appl Documented By: SHERRI Omeprazole (Omeprazole 20 Mg Capsule.) 20 mg PO BID@0630,1630 [facility] Last Admin: 08/25/22 06:00 Dose: 20 mg Documented By: SHERRI Ondansetron HCl (Ondansetron Hcl 4 Mg/2 Ml Vial) 4 mg IVPUSH Q8H PRN PRN Reason: Nausea and Vomiting Pharmacy Consult (Consult Rx Etoh Phenob Im/Po) 1 each MISCELLANE ONCE PRN; Protocol PRN Reason: Consult order Pharmacy Consult (Consult Rx Perform Med Rec) 1 each MISCELLANE ONCE PRN PRN Reason: Consult order Sodium Chloride (0.9 % Sodium Chloride Flush 3 Ml Syringe) 3 ml IVFLUSH QSHIFT [facility] Last Admin: 08/25/22 00:29 Dose: Not Given Documented By: SHERRI Non-Admin Reason: No Access Tamsulosin HCl (Tamsulosin Hcl 0.4 Mg Capsule) 0.4 mg PO DAILY@1700 [facility] Last Admin: 08/24/22 16:37 Dose: Not Given Documented By: MERYL Non-Admin Reason: Patient Refused Thiamine HCl (Thiamine Hcl 100 Mg Tablet) 100 mg PO DAILY [facility] Last Admin: 08/24/22 09:37 Dose: Not Given Documented By: MERYL Non-Admin Reason: Patient Refused Labs 08/17/22 07:15 08/21/22 06:16 Assessment and Plan (1) Acute encephalopathy: Status: Acute Plan 66yo M with AUD presenting with weakness, admitted for EtOH withdrawal, hypoNa, and hypoK course complicated by fever and encephalopathy Transaminitis Abd CT showed steatohepatitis; h/o etoh abuse Fever, intermittent. resolved possible drug induced - possible spectrum of serotonin syndrome - all psych meds on hold RPP negative, Chest CT/abdominal CT no infectious source, UA negative , BCx negative x 2 s/p LP 4/7 - protein 64, but otherwise unremarkable, meningoencephalitis panel negative all infectious work up negative - abx d/c Acute toxic metabolic encephalopathy. Resolved likely multifactorial due to fever, etoh withdrawal, electrolyte abnormalities, renal failure, medication brain CT negative no CO2 retention continue holding sedatives seen by neurology Psych consulted for capacity -NO CAPACITY plan for STR, sister is HCP Mild rhabdo. Resolved CPK trending down statin on hold Hypomagnesemia/hypokalemia repleted LAUREN. resolved likely pre-renal 2/2 dehydration paroxysmal atrial fibrillation. Resolved seen by cardiology, poor candidate for ac given alcohol abuse and falls ETOH withdrawal no longer withdrawing phenobarbitol on hold for encephalopathy/lethargy - possible contributing to drug related cause of fever continue thiamine, folic acid supplementation coagulopathy r/t liver disease hypoNa. Resolved suspect hypovolemia + beer potomania Elevated troponin likely demand from tachycardia trended down AUD B vitamins, Addiction Med consult chronic HFpEF not in acute exacerbation COPD, not in acute exacerbation prn albuterol DM2 A1c 7.7 (07/06/22) SSI VTE ppx: lovebullx Attending Dr. amanda dispo - intermittently declining to participate with PT, medications and lab draws continued inpatient hospitalization for the following reasons: safe dispo, at this time sister in law is health care proxy. Time Spent With Patient Time: Total time managing care of this patient today ____ minutes. Quality Stroke Does the patient have a stroke diagnosis?: No VTE Prior VTE?: No VTE Risk Level:: Medical - low VTE Device Contraindication: Treatment Not Indicated VTE Drug Contraindication: Treatment Not Indicated
[2022-08-25] MEDS: Nystatin Powder 15 GM BOTTLE 1 APPL TOPICAL (11:45)
--- NOTE | 2022-08-25 15:16 | PC.NURSE ---
Patient refusing care, vitals, poc, medications, physical assessment. Slept majority of 7a-3p shift.
[2022-08-25 16:35] LABS: Glucose, Whole Blood 109 mg/dL (60-115)
--- NOTE | 2022-08-25 18:00 | PC.NURSE ---
Patient refused meds and VS,unable to assess neuro,does not answer questions and patient gets agitated if touched
[2022-08-25 19:38] VITALS: BP 130/70; PULSE 92; RESP 19; TEMP 36.2; O2SAT 91
--- NOTE | 2022-08-25 23:05 | PC.NURSE ---
Patient refused meds,care,refused to eat or drink this shift patient gets very agitated if staff attempts to assist with anything,ASSOCIATE PROFESSOR OF GEOLOGY reported patient did not void this shift,Dr. Foreman notified.
[2022-08-26] VITALS: BP 120/60; PULSE 84; RESP 16; TEMP 36.6; O2SAT 93
[2022-08-26 04:00] VITALS: RESP 16; TEMP 35.9
--- NOTE | 2022-08-26 07:03 | PM.EVENT ---
Event Note Date of Service: 08/26/22 Event Note: refused all meds and vital checks was unable to prsuade pt. verbally aggressive, not cooperating. Time Spent With Patient Time: Total time managing care of this patient today ____ minutes.
[2022-08-26 07:29] LABS: Glucose, Whole Blood 97 mg/dL (60-115)
[2022-08-26 07:59] VITALS: BP 131/62; PULSE 90; RESP 20; TEMP 36.6; O2SAT 94
[2022-08-26 12:00] VITALS: PULSE 88; RESP 20; O2SAT 95
--- NOTE | 2022-08-26 14:05 | MHC.CM.PN ---
PATIENT IS NOT SURE IF HE WANTS TO DC HOME OR DC TO STR. HE IS AWARE THERE ARE CURRENTLY NO BED OFFERS, BUT THAT CASE MANAGEMENT IS TRYING TO SECURE REHAB FOR HIM. PATIENT AGREES TO PLAN
--- NOTE | 2022-08-26 14:49 | PC.NURSE ---
Patient allowed AM vitals and POC but refused in afternoon. Refused AM medications and physical assessment.
--- NOTE | 2022-08-26 17:17 | HO.PM.IMPN ---
Subjective Subjective Date of Service: 08/26/22 Interval History: seen in follow-up for encephalopathy, alcohol withdrawal, among others interval history: Patient intermittently combative, refusing vital signs. Refusing to talk to this provider or provide answers to ROS questions. Asking me to leave. Apparently this is his baseline Review of Systems Review of Systems: Yes Unobtainable due to mental status Physical Exam Vital Signs: Vital Signs: Last Vital Signs Temp 97.9 F 08/26/22 07:59 Pulse 88 08/26/22 12:00 Resp 20 08/26/22 12:00 BP 131/62 08/26/22 07:59 Pulse Ox 95 08/26/22 12:00 O2 Del Method Room Air 08/26/22 12:00 O2 Flow Rate 2 08/14/22 07:00 BMI result Body Mass Index 33.4 Unable to examine. Pt uncooperative and asked me to leave Objective Data Active Medications Acetaminophen (Acetaminophen 325 Mg Tablet) 650 mg PO Q6H PRN PRN Reason: Pain, Mild (Pain Scale 1-3) Last Admin: 08/22/22 22:07 Dose: 650 mg Documented By: ISAAC Aspirin (Aspirin Enteric Coated 81 Mg Tablet.) 81 mg PO DAILY [facility] Last Admin: 08/13/22 08:29 Dose: 81 mg Documented By: GINGER Heparin Sodium (Porcine) 50 (units/ Sodium Chloride 5 ml) 0 units IVFLUSH TID [facility] Last Admin: 08/26/22 13:18 Dose: Not Given Documented By: ALETHEA Non-Admin Reason: Patient Refused Docusate Sodium (Docusate Sodium 100 Mg Capsule) 100 mg PO DAILY PRN PRN Reason: Constipation Enoxaparin Sodium (Enoxaparin Sodium 40 Mg/0.4 Ml Syringe) 40 mg SUBCUT Q24H [facility] Last Admin: 08/26/22 05:40 Dose: Not Given Documented By: YULIYA Non-Admin Reason: Patient Refused Folic Acid (Folic Acid 1 Mg Tablet) 1 mg PO DAILY [facility] Last Admin: 08/26/22 10:16 Dose: Not Given Documented By: ALETHEA Non-Admin Reason: Patient Refused Glucose (Glucose Gel 15 Gm Gel..Gram.) 15 gm PO Q15M PRN; Protocol PRN Reason: per Hypoglycemia Standing Ord. Guaifenesin/Dextromethorphan (Guaifenesin Dm 100/10/5 Ml 5 Ml Syrup) 5 ml PO Q6H PRN PRN Reason: Cough Last Admin: 08/15/22 12:17 Dose: 5 ml Documented By: ALETHEA Dextrose (D10) 250 mls @ 750 mls/hr IV Q15M PRN; Protocol PRN Reason: per Hypoglycemia Standing Ord. Insulin Human Lispro (Insulin Lispro 100 Unit/Ml 3 Ml Vial) 0 unit SUBCUT QIDACHS [facility]; Protocol Last Admin: 08/26/22 13:18 Dose: Not Given Documented By: ALETHEA Non-Admin Reason: Patient Refused Multivitamins/Vitamin C (Multivitamin Tablet) 1 tab PO DAILY [facility] Last Admin: 08/26/22 10:16 Dose: Not Given Documented By: ALETHEA Non-Admin Reason: Patient Refused Nystatin (Nystatin Powder 15 Gm Bottle) 1 appl TOPICAL BID [facility]; Protocol Last Admin: 08/26/22 10:16 Dose: Not Given Documented By: ALETHEA Non-Admin Reason: Patient Refused Omeprazole (Omeprazole 20 Mg Capsule.) 20 mg PO BID@0630,1630 [facility] Last Admin: 08/26/22 15:23 Dose: Not Given Documented By: JOVITA Non-Admin Reason: Patient Refused Ondansetron HCl (Ondansetron Hcl 4 Mg/2 Ml Vial) 4 mg IVPUSH Q8H PRN PRN Reason: Nausea and Vomiting Pharmacy Consult (Consult Rx Etoh Phenob Im/Po) 1 each MISCELLANE ONCE PRN; Protocol PRN Reason: Consult order Pharmacy Consult (Consult Rx Perform Med Rec) 1 each MISCELLANE ONCE PRN PRN Reason: Consult order Sodium Chloride (0.9 % Sodium Chloride Flush 3 Ml Syringe) 3 ml IVFLUSH QSHIFT [facility] Last Admin: 08/26/22 15:23 Dose: Not Given Documented By: JOVITA Non-Admin Reason: No Access Tamsulosin HCl (Tamsulosin Hcl 0.4 Mg Capsule) 0.4 mg PO DAILY@1700 [facility] Last Admin: 08/25/22 16:33 Dose: Not Given Documented By: JOVITA Non-Admin Reason: Patient Refused Thiamine HCl (Thiamine Hcl 100 Mg Tablet) 100 mg PO DAILY [facility] Last Admin: 08/26/22 10:16 Dose: Not Given Documented By: ALETHEA Non-Admin Reason: Patient Refused Labs 08/17/22 07:15 08/21/22 06:16 Labs: Laboratory Results - last 24 hr 08/26/22 07:16 POC Glucose 97 Assessment and Plan (1) Alcohol use disorder: Status: Acute (2) Fever: Status: Acute (3) PAF (paroxysmal atrial fibrillation): Status: Acute (4) Acute encephalopathy: Status: Acute (5) Hypokalemia: Status: Acute Plan 66yo M with AUD presenting with weakness, admitted for EtOH withdrawal, hypoNa, and hypoK course complicated by fever and encephalopathy Transaminitis Abd CT showed steatohepatitis; h/o etoh abuse Fever, intermittent. resolved possible drug induced - possible spectrum of serotonin syndrome - all psych meds on hold RPP negative, Chest CT/abdominal CT no infectious source, UA negative , BCx? negative x 2 s/p LP 4/7 - protein 64, but otherwise unremarkable,? meningoencephalitis panel negative all infectious work up negative - abx d/c Acute toxic metabolic encephalopathy. Resolved likely multifactorial due to fever, etoh withdrawal, electrolyte abnormalities, renal failure, medication brain CT negative no CO2 retention continue holding sedatives seen by neurology Psych consulted for capacity -NO CAPACITY?plan for STR, sister is HCP Mild rhabdo. Resolved CPK trending down statin on hold Hypomagnesemia/hypokalemia repleted LAUREN. resolved likely pre-renal 2/2 dehydration paroxysmal atrial fibrillation. Resolved seen by cardiology, poor candidate for ac given alcohol abuse and falls ETOH withdrawal no longer withdrawing phenobarbitol on hold for encephalopathy/lethargy -? possible contributing to drug related cause of fever continue thiamine, folic acid supplementation coagulopathy r/t liver disease hypoNa. Resolved suspect hypovolemia + beer potomania Elevated troponin likely demand from tachycardia trended down AUD B vitamins, Addiction Med consult chronic HFpEF not in acute exacerbation COPD, not in acute exacerbation prn albuterol DM2 A1c 7.7 (07/06/22) SSI VTE ppx: lovenox Attending Dr. amanda dispo - intermittently declining to participate with PT, medications and lab draws continued inpatient hospitalization for the following reasons: safe dispo to LTC, seen by psychiatry- at this time sister in law is health care proxy. Time Spent With Patient Time: Total time managing care of this patient today ____ minutes. Quality Stroke Does the patient have a stroke diagnosis?: No VTE Prior VTE?: No VTE Risk Level:: Medical - low VTE Device Contraindication: Treatment Not Indicated VTE Drug Contraindication: Treatment Not Indicated
[2022-08-26 20:00] VITALS: BP 125/63; PULSE 86; RESP 20; TEMP 36.1; O2SAT 97
--- NOTE | 2022-08-27 04:57 | PC.NURSE ---
NAPPING INTERMITTANTLY OVERNIGHT..AWAKE THIS AM..STATED I CRAPPED AND NEED TO BE CLEANED ..AGITATED WITH PERSONAL CARE...STATED YOU'RE A FUCKING PIG ...PERSONAL CARE GIVEN...REFUSED VITAL SIGNS/AM MEDS/ASSESSMENT...RESPIRATIONS EASY...SKIN WARM/DRY...DOZING AFTERWARDS
[2022-08-27 08:00] VITALS: BP 147/67; PULSE 87; RESP 16; TEMP 36; O2SAT 93
[2022-08-27 08:05] LABS: Glucose, Whole Blood 98 mg/dL (60-115)
--- NOTE | 2022-08-27 13:32 | P.PNIM_ITS ---
Subjective Subjective Date of Service: 08/27/22 Interval History: seen and examined this morning Follow-up for placement patient awake, alert. states that he is feeling well, denies pain. says he is eating ok will not allow physical exam because he is sleeping declining medications and point of care Review of Systems Review of Systems: Yes all other systems are reviewed and are negative Constitutional Constitutional: Denies chills and Denies fever(s) Cardiovascular Cardiovascular: Denies chest pain Gastrointestinal Gastrointestinal: Denies abdominal pain Physical Exam Vital Signs: Vital Signs: Last Vital Signs Temp 96.8 F 08/27/22 08:00 Pulse 87 08/27/22 08:00 Resp 16 08/27/22 08:00 BP 147/67 H 08/27/22 08:00 Pulse Ox 93 08/27/22 08:00 O2 Del Method Room Air 08/27/22 08:00 O2 Flow Rate 2 08/14/22 07:00 BMI result Body Mass Index 33.4 Const: Other: observed lying in bed. appears comfortable. declined exam General: alert and awake Nutritional Appearance: overweight Resp: Effort & Inspection: normal respiratory effort, able to speak in complete sentences, no respiratory distress and no use of accessory muscles Objective Data Active Medications Acetaminophen (Acetaminophen 325 Mg Tablet) 650 mg PO Q6H PRN PRN Reason: Pain, Mild (Pain Scale 1-3) Last Admin: 08/22/22 22:07 Dose: 650 mg Documented By: ISAAC Aspirin (Aspirin Enteric Coated 81 Mg Tablet.) 81 mg PO DAILY [facility] Last Admin: 08/13/22 08:29 Dose: 81 mg Documented By: GINGER Heparin Sodium (Porcine) 50 (units/ Sodium Chloride 5 ml) 0 units IVFLUSH TID [facility] Last Admin: 08/27/22 09:14 Dose: Not Given Documented By: AHSAN Non-Admin Reason: No Access Docusate Sodium (Docusate Sodium 100 Mg Capsule) 100 mg PO DAILY PRN PRN Reason: Constipation Enoxaparin Sodium (Enoxaparin Sodium 40 Mg/0.4 Ml Syringe) 40 mg SUBCUT Q24H [facility] Last Admin: 08/27/22 04:44 Dose: Not Given Documented By: MORIAH Non-Admin Reason: Patient Refused Folic Acid (Folic Acid 1 Mg Tablet) 1 mg PO DAILY [facility] Last Admin: 08/27/22 09:17 Dose: Not Given Documented By: AHSAN Non-Admin Reason: Patient Refused Glucose (Glucose Gel 15 Gm Gel..Gram.) 15 gm PO Q15M PRN; Protocol PRN Reason: per Hypoglycemia Standing Ord. Guaifenesin/Dextromethorphan (Guaifenesin Dm 100/10/5 Ml 5 Ml Syrup) 5 ml PO Q6H PRN PRN Reason: Cough Last Admin: 08/15/22 12:17 Dose: 5 ml Documented By: ALETHEA Dextrose (D10) 250 mls @ 750 mls/hr IV Q15M PRN; Protocol PRN Reason: per Hypoglycemia Standing Ord. Insulin Human Lispro (Insulin Lispro 100 Unit/Ml 3 Ml Vial) 0 unit SUBCUT QIDACHS [facility]; Protocol Last Admin: 08/27/22 12:19 Dose: Not Given Documented By: AHSAN Non-Admin Reason: Patient Refused Multivitamins/Vitamin C (Multivitamin Tablet) 1 tab PO DAILY [facility] Last Admin: 08/27/22 09:18 Dose: Not Given Documented By: AHSAN Non-Admin Reason: Patient Refused Nystatin (Nystatin Powder 15 Gm Bottle) 1 appl TOPICAL BID [facility]; Protocol Last Admin: 08/27/22 09:18 Dose: Not Given Documented By: AHSAN Non-Admin Reason: Patient Refused Omeprazole (Omeprazole 20 Mg Capsule.) 20 mg PO BID@0630,1630 [facility] Last Admin: 08/27/22 04:45 Dose: Not Given Documented By: MORIAH Non-Admin Reason: Patient Refused Ondansetron HCl (Ondansetron Hcl 4 Mg/2 Ml Vial) 4 mg IVPUSH Q8H PRN PRN Reason: Nausea and Vomiting Pharmacy Consult (Consult Rx Etoh Phenob Im/Po) 1 each MISCELLANE ONCE PRN; Protocol PRN Reason: Consult order Pharmacy Consult (Consult Rx Perform Med Rec) 1 each MISCELLANE ONCE PRN PRN Reason: Consult order Sodium Chloride (0.9 % Sodium Chloride Flush 3 Ml Syringe) 3 ml IVFLUSH QSHIFT [facility] Last Admin: 08/27/22 09:17 Dose: Not Given Documented By: AHSAN Non-Admin Reason: No Access Tamsulosin HCl (Tamsulosin Hcl 0.4 Mg Capsule) 0.4 mg PO DAILY@1700 [facility] Last Admin: 08/26/22 17:21 Dose: Not Given Documented By: JOVITA Non-Admin Reason: Patient Refused Thiamine HCl (Thiamine Hcl 100 Mg Tablet) 100 mg PO DAILY [facility] Last Admin: 08/27/22 09:19 Dose: Not Given Documented By: AHSAN Non-Admin Reason: Patient Refused Labs 08/17/22 07:15 08/21/22 06:16 Labs: Laboratory Results - last 24 hr 08/27/22 07:58 POC Glucose 98 Assessment and Plan (1) Acute encephalopathy: Status: Acute Plan 66yo M with AUD presenting with weakness, admitted for EtOH withdrawal, hypoNa, and hypoK course complicated by fever and encephalopathy Transaminitis Abd CT showed steatohepatitis; h/o etoh abuse LFTs trending down. has been declining lab draws Fever, intermittent. resolved possible drug induced - possible spectrum of serotonin syndrome - all psych meds on hold RPP negative, Chest CT/abdominal CT no infectious source, UA negative , BCx? negative x 2 s/p LP 4/7 - protein 64, but otherwise unremarkable,? meningoencephalitis panel negative all infectious work up negative - abx d/c Acute toxic metabolic encephalopathy. Resolved likely multifactorial due to fever, etoh withdrawal, electrolyte abnormalities, renal failure, medication brain CT negative no CO2 retention continue holding sedatives seen by neurology Psych consulted for capacity -NO CAPACITY?plan for STR, sister is HCP Mild rhabdo. Resolved CPK trending down statin on hold Hypomagnesemia/hypokalemia repleted LAUREN. resolved likely pre-renal 2/2 dehydration paroxysmal atrial fibrillation. Resolved seen by cardiology, poor candidate for ac given alcohol abuse and falls ETOH withdrawal no longer withdrawing phenobarbitol on hold for encephalopathy/lethargy -? possibly contributing to drug related cause of fever continue thiamine, folic acid supplementation coagulopathy r/t liver disease hypoNa. Resolved suspect hypovolemia + beer potomania Elevated troponin likely demand from tachycardia trended down AUD B vitamins, Addiction Med consult chronic HFpEF not in acute exacerbation COPD, not in acute exacerbation prn albuterol DM2 A1c 7.7 (07/06/22) SSI VTE ppx: lovenox Attending Dr. amanda dispo - declining to participate with PT, medications and lab draws continued inpatient hospitalization for the following reasons: safe dispo to LTC, seen by psychiatry- at this time sister in law is health care proxy. Time Spent With Patient Time: Total time managing care of this patient today ____ minutes. Quality Stroke Does the patient have a stroke diagnosis?: No VTE Prior VTE?: No VTE Risk Level:: Medical - low VTE Device Contraindication: Treatment Not Indicated VTE Drug Contraindication: Treatment Not Indicated
[2022-08-27 15:52] VITALS: BP 90/57; PULSE 84; RESP 24; TEMP 35.8; O2SAT 95
[2022-08-27] MEDS: Tamsulosin HCL 0.4 MG CAPSULE PO (17:19)
[2022-08-27] MEDS: Omeprazole 20 MG CAPSULE.DR PO (17:19)
--- NOTE | 2022-08-27 18:33 | PC.NURSE ---
pt. refused morning meds, point of cares, ADL's. Suzanne notified.
[2022-08-27 20:00] VITALS: RESP 20
[2022-08-27] MEDS: Nystatin Powder 15 GM BOTTLE 1 APPL TOPICAL (22:02)
[2022-08-27 23:27] VITALS: RESP 19
[2022-08-28 07:26] LABS: Glucose, Whole Blood 140 mg/dL (60-115)
[2022-08-28] MEDS: buPROPion HCL 75 MG TABLET PO (09:07)
[2022-08-28] MEDS: Folic Acid 1 MG TABLET PO (09:08)
[2022-08-28] MEDS: Thiamine HCL 100 MG TABLET PO (09:08)
[2022-08-28] MEDS: Multivitamin TABLET 1 TAB PO (09:08)
[2022-08-28 11:38] LABS: Hematocrit 43.3 % (42.0-52.0); Hemoglobin 13.8 g/dl (14.0-18.0); Mean Corpuscular HGB Conc 31.9 g/dl (31.0-36.0); Mean Corpuscular Hemoglobin 29.5 pg (27.0-33.0); Mean Corpuscular Volume 92.5 fL (80.0-98.0); Mean Platelet Volume 9.7 fL (9.4-12.4); Platelet Count 257 X10*3/uL (160-400); Red Blood Count 4.68 X10*6/uL (4.60-5.80); Red Cell Distribution Width 13.8 % (11.0-16.0); White Blood Count 4.6 X10*3/uL (4.8-10.8)
[2022-08-28 11:42] VITALS: BP 109/65; PULSE 94; RESP 18; TEMP 36.2; O2SAT 92
[2022-08-28 12:03] LABS: Anion Gap 19 (12-20); Blood Urea Nitrogen 10 mg/dL (9-16); Calcium 8.5 mg/dL (8.4-10.2); Carbon Dioxide 20 mmol/L (22-29); Chloride 105 mmol/L (96-108); Creatinine Clr Calc Pharmacy 97.8; Estimated Glomerular Filt Rate > 60; Glucose Random 154 mg/dL (60-115); Potassium 4.4 mmol/L (3.3-5.1); Sodium 140 mmol/L (135-145)
--- NOTE | 2022-08-28 12:44 | MHC.CM.PN ---
Addendum entered by Sondra Petersen, RN 08/28/22 13:34: [facility] UND[facility] INVOKED HCP [id number] /HCP, DENNIS, AWARE OF PLAN.([phone]) [id number]IV[facility] IN [facility] Original Note: PATIENT REFUSES [facility] BED OFFER AND REFUSES [facility] PATIENT AWARE HE IS READY FOR DC. STATES I WILL LEAVE TOMORROW
--- NOTE | 2022-08-28 13:02 | PM.DS ---
DS: Providers Provider Date of Service: 08/28/22 Date of admission: 08/11/22 04:05 Date of discharge: 08/28/22 Primary care physician: Jaylen Cummings MD Consults: 08/11/22 07:35 Addiction Medicine Routine Consulting Provider: Addiction [facility]ing Reason for consultation: etoh 08/13/22 12:46 Consult to [place]ious Diseases [place] [facility] [place] Reason for consultation: high fever ? source Has provider been notified: No 08/13/22 14:00 Consult for Sitter Routine Reason for consultation: restlessness Has provider been notified: Yes 08/13/22 17:10 Consult to Cardiology [place]ine Consulting [place] [facility] [place] Reason for consultation: new afib Has provider been notified: No 08/14/22 08:29 Consult to Critical Care Routine Consulting Provider: Jesus De Oliveira Reason for consultation: level of care; AMS, fever Has provider been notified: Yes 08/14/22 11:12 Consult to Neurology Routine Consulting Provider: [facility] Reason for consultation: AMS Has provider been notified: No 08/18/22 10:32 Consult to Psychiatry Routine Consulting Provider: Psych Covering Reason for consultation: capacity evaluation; ? resume psych meds Has provider been notified: Yes 08/22/22 07:26 Consult to Psychiatry Routine Consulting Provider: Psych Covering Reason for consultation: capacity evaluation; ? resume psych meds Has provider been notified: No Attending physician on discharge: Mike Palmer Discharging clinician: Suzanne Young DS: Diagnosis Discharge Diagnosis (1) Acute encephalopathy: Status: Acute DS: Summary Hospital Course Hospital Course: From H&P on day of admission 66-year-old male with past medical history of alcohol abuse,? diastolic heart failure, COPD, diabetes, who presents the hospital with complaints of generalized weakness.? Patient states that he has not been eating or drinking well for the past several days, drinking 1 pt of alcohol daily, reports that he called EMS? because his legs were too weak? to hold him.? He denies no chest pain, no shortness of breath, no cough, reports 1 episode of vomiting yesterday, no diarrhea constipation, no abdominal pain, no urinary symptoms and no lower extremity edema.? No specific weakness numbness or tingling on arrival to the ED patient hemodynamically stable with no significant abnormal vital Labs are significant for WBC count of 5.8, hemoglobin 13.1, hematocrit 38, chronic hyponatremia, sodium of 127? with a previous of 137 AST of 41, ALT of 42, alk-phos of 130 States his last alcohol drink was the day prior to presentation, denies any history of withdrawal seizures Patient was initially admitted to the hospital for management of alcohol withdrawal. He was started on phenobarbital protocol. His course was complicated by high feve and encephalopathy. RPP negative, Chest CT/abdominal CT no infectious source, UA negative , BCx negative. s/p LP 08/14 - protein 64, but otherwise unremarkable,? meningoencephalitis panel negative. all infectious work up negative. Thought to be possible drug induced or possible spectrum of serotonin syndrome. all antibiotics were discontinued and he has remained afebrile since 08/15. Acute toxic metabolic encephalopathy. likely multifactorial due to fever, etoh withdrawal, electrolyte abnormalities, renal failure, medication. brain CT negative, no evidence of CO2 retention, sedating meds placed on hold. seen by neurology, no specific workup recommended. he was evaluated by Psych and deemed not to have capacity to make medical decisions. sister is HCP. Per PT eval, recommended STR. Transaminitis Abd CT showed steatohepatitis; h/o etoh abuse. LFTs trending down Mild rhabdo. possibly related to rigors/high fever. Resolved with IVF. Hypomagnesemia/hypokalemia repleted and improved. LAUREN. likely pre-renal 2/2 dehydration. resolved with IVF paroxysmal atrial fibrillation. Resolved seen by cardiology, poor candidate for ac given alcohol abuse and falls ETOH withdrawal no longer withdrawing. phenobarbitol discontinued for encephalopathy-? possibly contributing to drug related cause of fever continue thiamine, folic acid supplementation coagulopathy. r/t liver disease hypoNa. Resolved suspect hypovolemia + beer potomania Elevated troponin likely demand from tachycardia. trended down AUD. continue thiamine, folic acid supplementation chronic HFpEF not in acute exacerbation COPD, not in acute exacerbation continue prn albuterol DM2 A1c 7.7 (07/06/22) POCs controlled. continue SSI anticipate less than 30 day stay at SNF patient deemed not to have capacity to make medical decisions. HCP invoked. HCP is sister. Consider re-evaluation of capacity if patient cognitive status improves. Patient may require some persuasion to take meds, obtain vital signs but will comply when requested. Time Spent with Patient Time attestation: Total time managing care of this patient today ____ minutes. Discharge coordination time: Greater than 30 minutes Quality: Safe Use of Opioids Does Pt have an Active Cancer Diagnosis on the Problem List?: No Quality: Stroke Does the patient have a stroke diagnosis?: No Physical Exam Vital Signs: Vital Signs: Last Vital Signs Temp 97.1 F 08/28/22 11:42 Pulse 94 08/28/22 11:42 Resp 18 08/28/22 11:42 BP 109/65 08/28/22 11:42 Pulse Ox 92 08/28/22 11:42 O2 Del Method Room Air 08/28/22 11:42 O2 Flow Rate 2 08/14/22 07:00 BMI result Body Mass Index 33.4 Const: General: comfortable, no acute distress, alert and awake Nutritional Appearance: overweight Orientation/consciousness: oriented to person and oriented to place Resp: Effort & Inspection: normal respiratory effort, able to speak in complete sentences, no respiratory distress and no use of accessory muscles Cardio: Rate: regular rate GI: Inspection: No distended Palpation (GI): Soft to palpation Neuro: Other: grossly non-focal General: oriented to person and oriented to place Extrem: Other: able to move all four extremities spontaneously DS: Data Data Completed and Pending Completed studies during hospitalization [Text1]: Procedures Detoxification Services for Substance Abuse Treatment (06/22/21) Insertion of Endotracheal Airway into Trachea, Via Natural or Artificial Opening Endoscopic (08/03/21) Insertion of Infusion Device into Lower Vein, Percutaneous Approach (08/03/21) Insertion of Infusion Device into Right Femoral Vein, Percutaneous Approach (08/03/21) Insertion of Infusion Device into Superior Vena Cava, Percutaneous Approach (08/03/21) Insertion of Infusion Device into Upper Vein, Percutaneous Approach (07/21/21) Introduction of Remdesivir Anti-infective into Peripheral Vein, Percutaneous Approach, [employer] (06/01/21) Introduction of Vasopressor into Peripheral Vein, Percutaneous Approach (07/04/22) Performance of Urinary Filtration, Intermittent, Less than 6 Hours Per Day (08/03/21) Removal of Infusion Device from Lower Vein, Percutaneous Approach (08/03/21) Respiratory Ventilation, Less than 24 Consecutive Hours (08/03/21) Ultrasonography of Superior Vena Cava, Guidance (08/03/21) Labs on day of discharge: Laboratory Results - last 24 hr 08/28/22 08/28/22 08/28/22 07:15 11:28 11:28 WBC 4.6 L RBC 4.68 D Hgb 13.8 L D Hct 43.3 D MCV 92.5 MCH 29.5 MCHC 31.9 RDW 13.8 Plt Count 257 D MPV 9.7 Absolute Nucleated RBC 0.000 Nucleated RBC % (auto) 0.0 Sodium 140 Potassium 4.4 Chloride 105 Carbon Dioxide 20 L Anion Gap 19 BUN 10 Creatinine 0.85 Estim Creat Clear Calc 97.8 Estimated GFR > 60 POC Glucose 140 H Random Glucose 154 H Calcium 8.5 D Discharge Plan Discharge Anticipated Discharge Date/Time: 08/28/22 13:50 Patient Disposition: Xfer [facility] Discharge Diagnosis: alcohol withdrawal altered mental state fever Referrals: Name,MD Jaylen [Primary Care Provider] - 1 Week Discharge Medications: New bupropion HCl 75 mg Tablet 75 mg PO DAILY 30 Days Qty: 30 0RF insulin lispro [Humalog U-100 Insulin] 100 unit/mL Solution See Protocol subcut QIDAS Qty: 10 0RF Protocol: Insulin Correction Scale Less than or equal to 110 ---- Give (units): 0 111 to 150 Give (units): 0 151 to 200 Give (units): 2 201 to 250 Give (units): 4 251 to 300 Give (units): 6 301 to 350 Give (units): 8 Greater than 350 Give (units): 10 Call if Blood Glucose > : 350 Continued thiamine HCl (vitamin B1) 100 mg tablet 1 tab PO BEDTIME simvastatin 20 mg tablet 1 tab PO BEDTIME albuterol sulfate 90 mcg/actuation HFA aerosol inhaler 2 puff inhalation Q4H PRN (Reason: Wheezing) aspirin 81 mg tablet,delayed release (DR/EC) 1 tab PO DAILY tamsulosin 0.4 mg capsule 1 cap PO DAILY@1700 omeprazole 20 mg capsule,delayed release(DR/EC) 1 cap PO BID@0630,1630 folic acid 1 mg tablet 1 tab PO BEDTIME multivitamin Tablet 1 tab PO DAILY Held celecoxib 50 mg capsule 1 cap PO BID Hold Instructions: has been on hold during hospitalization, can consider resuming if needed for arthritis pain Discontinued buspirone 5 mg tablet 5 mg PO BID ramelteon 8 mg tablet 1 tab PO BEDTIME insulin glargine [Lantus U-100 Insulin] 100 unit/mL solution 15 unit subcut BEDTIME Qty: 1 0RF gabapentin 300 mg capsule 300 mg PO BEDTIME acetaminophen [Tylenol] 325 mg tablet 650 mg PO Q6H PRN (Reason: pain) Qty: 10 0RF Discharge Orders: Discharge Order (Routine); Ordered 08/28/22 Ordered By: Suzanne Young Activity on Discharge: As tolerated Stand Alone Forms: Patient Portal Discharge page Care Plan Goals: see below Health Concerns: encephalopathy alcohol withdrawal - resolved fever- resolved low magnesium/low potassium- resolved with replacement rhabdo- resolved lauren - resolved Plan of Treatment: Does not have capacity to make medical decisions. HCP invoked. HCP is sister Laura consider re-eval of capacity if patient cognitive function improves started on wellbutrin for depression Assessment: see discharge summary
--- NOTE | 2022-08-28 13:30 | MHC.CLN ---
NUTRITION DIET=DIABETIC 2000 KCALS. ENSURE BID PROVIDES ADDITIONAL 700 KCALS, 40 G PROTEIN. CHRISTIE=12. NO PRESSURE AREAS NOTED. SKIN FUNGUS TO GROIN. REFUSES MEALS AT TIME, OTHER MEALS WITH GOOD INTAKE. RD TO FOLLOW UP WEEKLY.
[2022-08-28] MEDS: LORazepam 0.5 MG TABLET PO (16:13)
== END 2022-08-28 16:47 | disposition skilled nursing facility (03) | DRG 640 ==
LOC: HO.ED 02:34 → HO.EDOVER 04:18 → HO.S3 06:03 → HO.IMC 08-12 20:45 → HO.S3 08-20 18:57
PROVIDERS: Family Medicine; Internal Medicine Pulmonary Disease; Nurse Practitioner Acute Care; Physician Assistant; Student in an Organized Health Care Education/Training Program; Admitting Provider Internal Medicine; Emergency Provider Internal Medicine; PCP Internal Medicine Geriatric Medicine; Visit Provider Physician Assistant Medical
DX: E87.1 Hypo-osmolality and hyponatremia (principal); G92.8 Other toxic encephalopathy; F10.239 Alcohol dependence with withdrawal, unspecified; I50.32 Chronic diastolic (congestive) heart failure; M62.82 Rhabdomyolysis; N17.9 Acute kidney failure, unspecified; D68.4 Acquired coagulation factor deficiency; I24.8 Other forms of acute ischemic heart disease; R65.10 Systemic inflammatory response syndrome (SIRS) of non-infectious origin without acute organ dysfunction; I11.0 Hypertensive heart disease with heart failure; E87.6 Hypokalemia; E11.9 Type 2 diabetes mellitus without complications; J44.9 Chronic obstructive pulmonary disease, unspecified; E83.42 Hypomagnesemia; I48.0 Paroxysmal atrial fibrillation; I35.0 Nonrheumatic aortic (valve) stenosis; K76.0 Fatty (change of) liver, not elsewhere classified; E78.5 Hyperlipidemia, unspecified; E66.9 Obesity, unspecified; T43.225A Adverse effect of selective serotonin reuptake inhibitors, initial encounter; Z68.33 Body mass index [BMI] 33.0-33.9, adult; Z20.822 Contact with and (suspected) exposure to COVID-19; Z87.891 Personal history of nicotine dependence; Z79.4 Long term (current) use of insulin; Z79.82 Long term (current) use of aspirin; Z79.899 Other long term (current) drug therapy
CPT/HCPCS: 0241U; 36410; 36415; 36600; 62328; 70450; 71045; 71250; 74176; 80048; 80053; 80076; 80202; 81001; 82140; 82550; 82803; 82945; 82947; 83605; 83690; 83735; 83880; 84100; 84157; 84484; 85025; 85027; 85610; 85730; 86617; 86850; 86900; 86901; 87015; 87040; 87070; 87205; 87483; 87633; 87635; 89051; 93005; 94640; 97162; 99285; C1751; C1758; J0131; J1160; J1642; J1650; J1885; J2060; J2543; J2560; J2920; J3370; J3371; J3430; J3475; P9017

== ENCOUNTER 2022-09-28 08:43 | Emergency (ER) | payer OTHER, SELFPAY ==
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
[2022-09-28 08:57] VITALS: BMI 30.1
--- NOTE | 2022-09-28 09:44 | PHA.MEDREC ---
Addendum entered by Anitha Rankin [facility] 09/29/22 14:36: patient has claims for buspar but he did not recognize the medication. did not want to include in list. Original Note: Pharmacy Consult ? Medication Reconciliation Pharmacy has completed the medication reconciliation. Patient stated he should also be on lantus 45 units at bedtime but [facility] dc'd it.
--- NOTE | 2022-09-28 11:43 | PC.NURSE ---
PT CONTINUES TO REFUSE ALL INTERVENTIONS. HE IS VISIBLE UPSET AND ASKING TO LEAVE. HE IS STEADY ON HIS FEET AND APPEARS IN NO DISTRESS. CARE TEAM AWARE OF PTS REQUEST FOR DISCHARGE HOME
--- NOTE | 2022-09-28 12:06 | PC.NURSE ---
pt refusing any vitals or testing. becoming more agitated, security aware and are speaking to him.
--- NOTE | 2022-09-28 13:28 | P.CNPS_ITS ---
History of Present Illness Date of Service: 09/28/2022 Chief Complaint: PSYCH EVAL FROM SNF PER EMS Reason for Consult: capacity Discussed with referring provider: Yes Sources of Information: patient interviewed, chart reviewed and crisis/core team assessment reviewed HPI Narrative: Mr. Aragon is a 66 year-old male with hx of DM, BPH, alcohol use disorder who was discharged from [facility] on 08/28/2022 to [facility] on an invoke HCP. At the time, pt was deemed as not able to make medical decisions, HCP invoked. Pt presented as combative and agitated at [facility] as he was demanding to leave. He was sent to [facility] for combative behaviors and re-assessment of capacity. Pt seen in the ED. He presents as irritable but able to engage with this telegraphic typewriter operator chief. He reports he was sent here despite him asking to be sent to [facility]. He does admit to becoming combative as he states he wanted to leave the facility. He states he refused labs as he is not here for medical reasons, which is accurate. He denies any physical pain. He adamantly asks this telegraphic typewriter operator chief to let him go to his apartment. Pt is oriented to place, month, year. He reports he is not aware that HCP had been invoked. He denies SI/HI. He does not appear internally preoccupied. No overt delusional content noted or reported. He did agree to do a clock draw test (which assesses executive function)- which showed that he was able to place numbers correctly but struggled to place hands on right place when asked to show ten past eleven. Further MOCA and ACL assessments are needed to determine his overall ability to function and safety in the community. In addition, this telegraphic typewriter operator chief called [facility]- facility where he was sent for further collateral information but unable to leave messages as call was redirected to 2nd floor but no one answer. Medical Evaluation Reviewed: Yes [facility] Medical History (Updated 09/28/22 @ 10:34 by DARLINE Batres) Acute diastolic CHF (congestive heart failure) Acute hyponatremia Acute respiratory failure with hypoxia Acute respiratory failure with hypoxia LAUREN (acute kidney injury) Alcohol abuse Alcohol use disorder Anxiety Bilateral pleural effusion Cellulitis, scrotum Contusion of rib on left side COPD (chronic obstructive pulmonary disease) Diabetes mellitus type 1 Diastolic dysfunction Diastolic heart failure DMII (diabetes mellitus, type 2) Electrolyte abnormality Elevated troponin Fall Fall Fungal dermatitis Gram-positive bacteremia HLD (hyperlipidemia) Hypertension Metabolic acidosis Metabolic acidosis Nonrheumatic aortic (valve) stenosis Obesity PAF (paroxysmal atrial fibrillation) Pneumonia Rhabdomyolysis Surgical History H/O elbow surgery H/O shoulder surgery History of hydrocelectomy S/P TURP Family History: Deferred Social History: Deferred Trauma History: Deferred Diagnostics Vital Signs (24Hr): BMI result Body Mass Index 30.1 Labs 09/29/22 09:35 09/29/22 09:35 Mental Status Exam Mental Status Exam Narrative: Appearance: casually groomed, good hygiene, in NAD Behavior: irritable, difficult to engage Psychomotor: no agitation or retardation noted Speech: clear, normal rate/rhythm/volume, spontaneous TP: goal oriented- wanting to be discharged home (unclear if he still has a home) TC: no overt psychosis or delusional content noted or reported, wanting to go home in [place]. Mood: fine Affect: irritable SI: denies HI: denies VH/AH: does not appear internally preoccupied Delusions: none Insight/judgment: poor x 2. Memory/cog: alert, oriented to place, month, year, situation- pending further evaluation of MOCA, ACL. Medications Medications Current Medications Pharmacy Consult (Consult Rx Perform Med Rec) 1 each MISCELLANE ONCE PRN PRN Reason: Consult order Allergies Allergies Allergy/AdvReac Type Severity Reaction Status Date / Time environmental allergies Allergy Sneezing Verified 07/08/22 08:40 Assessment & Plan Assessment & Plan (1) Alcohol use disorder: Status: Acute Code(s): F10.90 - Alcohol use, unspecified, uncomplicated Plan Mr. Aragon is a 66 year-old male with hx of afib, HF, DM, alcohol use disorder who was discharged from medical floor on 08/28. At the time, pt was deemed as not having capacity to make medical decisions. He was sent to [facility] with an invoked HCP. Pt presented as combative, asking to leave the facility, which could not let him go as he has an invoked HCP. Pt sent to [facility] ED due to combative behaviors. Reassessment of HCP was asked. Currently pt presents as irritable. No signs of delirium. He is oriented to place, month, year. He is superficial and minimally cooperative in terms of agreeing to complete further cognitive assessment. He reports he is not aware of fact that HCP has been invoked. He did show some impairment in terms of executive function in that he was not able to place hands of clock correctly when asked to place 10 past 11. PLAN 1. pending assessment including MOCA and ACL. if assessments can't be completed he may return to [facility] and they can complete assessments in their facility. 2. pending collateral information from [facility] [phone]. Unable to reach staff from 2nd floor where he is residing. 3. No need for inpatient psych admission. No acute psychiatric symptoms that are affecting his ability to care for self or indication that he is at imminent risk of harm to self or others due to SI or HI. Total time managing care of this patient today ____ minutes.
--- NOTE | 2022-09-28 18:16 | PC.NURSE ---
pt continues to refuse any vitals or answer any questions on the worklist, he becomes very agitated when spoken to .
--- NOTE | 2022-09-28 19:00 | PC.NURSE ---
pt continues to refuse any treatment or to take v/s by any staff member. pt continues to use vulgarity to talk with the staff members.
--- NOTE | 2022-09-28 19:05 | MHC.EDTECH ---
This Tech assumed care of this patient upon arrival. Tried to get labs from patient at 1855. Pt became hostile and began swearing and refusing blood work and changeover. Charge nurse made made aware
--- NOTE | 2022-09-28 19:11 | MHC.EDTECH ---
pt refused vitals. pt stated until he recieves any pain meds no one can get vital on him.
[2022-09-28 20:52] VITALS: BP 131/56; PULSE 97; RESP 15; TEMP 36.4; O2SAT 99
--- NOTE | 2022-09-28 21:00 | PC.NURSE ---
Pt continues to refuse any treatment, yelling at staff stating he wants to go home, made aware.
[2022-09-28 23:20] VITALS: BP 135/60; PULSE 90; RESP 20
[2022-09-28] MEDS: LORazepam 2 MG/ML VIAL IM (23:20)
[2022-09-28] MEDS: Haloperidol Lactate 5 MG/ML VIAL IM (23:20)
[2022-09-28] MEDS: diphenhydrAMINE HCL 50 MG/ML VIAL IM (23:20)
[2022-09-28 23:35] VITALS: RESP 20
[2022-09-28 23:50] VITALS: RESP 24
[2022-09-29 00:05] VITALS: RESP 22
[2022-09-29 00:20] VITALS: RESP 18
--- NOTE | 2022-09-29 00:24 | PC.NURSE ---
Pt continues to refuse to allow staff to take his V/s or to treat him for any care.
--- NOTE | 2022-09-29 00:37 | PC.NURSE ---
At around 22:57 pt began yelling and using vulgarity to staff and running down the hallway yelling that he is leaving . Pt was intervened by security. at bedside to speak with pt, however, pt continues to yell at staff and security and using vulgarity to the PA. At 23:18 PA placed pt in Medication Restraints protocol. (see Medication Restraint Data Collection Form). Pt continues to be AOX4 however pt is more cooperative and uncooperative.
--- NOTE | 2022-09-29 00:57 | PC.NURSE ---
Pt is calm, however, continues to refuse v/s or any treatment.
--- NOTE | 2022-09-29 00:57 | MHC.EDTECH ---
Pt still refuses to let this Tech draw blood after being medicated and also refuses to allow us to get a blood pressure or put on O2 probe. only respirations were counted and documented. Will continue to try to get pt labs.
--- NOTE | 2022-09-29 02:33 | PC.NURSE ---
pt is resting in bed, continues to refuse V/s and treatment/care
[2022-09-29 05:15] VITALS: RESP 19
--- NOTE | 2022-09-29 05:15 | MHC.EDTECH ---
Pt continues to be non compliant with treatment. Pt refuses all vital signs and care from ER staff
[2022-09-29 09:39] LABS: MANUAL DIFF FLAG NO
[2022-09-29 09:42] LABS: Basophils Percent Auto 0.5 % (0-2); Eosinophils Absolute Auto 0.3 X10*3/uL (0.0-0.4); Eosinophils Percent Auto 4.2 % (0-4); Hematocrit 35.2 % (42.0-52.0); Hemoglobin 11.6 g/dl (14.0-18.0); Imm Gran Abs Auto 0.01 X10*3/uL (0.00-0.03); Imm Gran Pct Auto 0.2 % (0.0-0.4); Lymphocytes Absolute Auto 1.2 X10*3/uL (1.2-4.9); Lymphocytes Percent Auto 20.4 % (20-40); Mean Platelet Volume 9.1 fL (9.4-12.4); Monocytes Absolute Auto 0.4 X10*3/uL (0.1-1.2); Monocytes Percent Auto 6.4 % (2-11); Neutrophils Absolute Auto 4.1 x10*3/uL (2.0-8.3); Neutrophils Percent Auto 68.3 % (45-73); Platelet Count 248 X10*3/uL (160-400); Red Blood Count 3.87 X10*6/uL (4.60-5.80)
[2022-09-29 09:53] LABS: COVID-19 Test Negative (Negative); IDNOW Serial# 55D5AD1C
[2022-09-29 10:00] LABS: Anion Gap 14 (12-20); Blood Urea Nitrogen 10 mg/dL (9-16); Calcium 8.2 mg/dL (8.4-10.2); Carbon Dioxide 25 mmol/L (22-29); Chloride 103 mmol/L (96-108); Creatinine Clr Calc Pharmacy 91.2; Estimated Glomerular Filt Rate > 60; Glucose Random 249 mg/dL (60-115); Sodium 138 mmol/L (135-145)
[2022-09-29 10:25] VITALS: BP 126/77; PULSE 95; RESP 16; TEMP 36.4; O2SAT 97
[2022-09-29] MEDS: Omeprazole 20 MG CAPSULE.DR PO (15:34)
[2022-09-29] MEDS: Aspirin Enteric Coated 81 MG TABLET.DR PO (15:34)
[2022-09-29] MEDS: Multivitamin TABLET 1 TAB PO (15:34)
[2022-09-29] MEDS: Gabapentin 300 MG CAPSULE 600 MG PO ×2 (15:34→19:55)
--- NOTE | 2022-09-29 15:46 | MHC.CARE ---
Pt is being followed by psychiatry for capacity and not CARE team. Please see psychiatry consult/note done by Kamilah Tong NP.
--- NOTE | 2022-09-29 15:56 | PC.NURSE ---
Pt approached for second attempt to engage in MoCA screen on this date. Pt initially agreed with screen, but became frustrated with first task on screen. Pt then refused to participate any further. Unable to attain score or to further assess for cognition
[2022-09-29 16:00] VITALS: BP 131/76; PULSE 101; RESP 17; TEMP 36.4; O2SAT 98
--- NOTE | 2022-09-29 17:23 | P.CNPS_ITS ---
History of Present Illness Date of Service: 09/30/2022 Chief Complaint: PSYCH EVAL FROM SNF PER EMS Discussed with referring provider: Yes Sources of Information: patient interviewed, chart reviewed and crisis/core team assessment reviewed HPI Narrative: Interim Hx: Pt requesting to be discharged, stating he has his apartment and wants to return there. Pt refused to meet with OT to complete MOCA and ACL. Collateral information from his HCP, Laura, reports pt has been refusing PT at [facility]. HCP reports concern about pt's ability to care in terms of being behind rent, but also he was at the time using alcohol. HCP thinks apartment is no longer available as he was behind rent and she had expected that he would stay at [facility]. It was explained to HCP that further assessment to are needed to determine extend of cognitive impairment and ability to live independently. Review of Systems Review of Systems Yes all other systems are reviewed and are negative [facility] Medical History (Updated 09/28/22 @ 10:34 by DARLINE Batres) Acute diastolic CHF (congestive heart failure) Acute hyponatremia Acute respiratory failure with hypoxia Acute respiratory failure with hypoxia LAUREN (acute kidney injury) Alcohol abuse Alcohol use disorder Anxiety Bilateral pleural effusion Cellulitis, scrotum Contusion of rib on left side COPD (chronic obstructive pulmonary disease) Diabetes mellitus type 1 Diastolic dysfunction Diastolic heart failure DMII (diabetes mellitus, type 2) Electrolyte abnormality Elevated troponin Fall Fall Fungal dermatitis Gram-positive bacteremia HLD (hyperlipidemia) Hypertension Metabolic acidosis Metabolic acidosis Nonrheumatic aortic (valve) stenosis Obesity PAF (paroxysmal atrial fibrillation) Pneumonia Rhabdomyolysis Surgical History H/O elbow surgery H/O shoulder surgery History of hydrocelectomy S/P TURP Family History: Deferred Social History: Deferred Trauma History: Deferred Diagnostics Vital Signs (24Hr): Vital Signs - 24 hr 09/28/22 20:52 09/28/22 23:20 09/28/22 23:35 Temperature 97.6 F Pulse Rate 97 90 Respiratory Rate 15 20 20 Blood Pressure 131/56 L 135/60 Pulse Oximetry 99 Oxygen Delivery Method Room Air 09/28/22 23:50 09/29/22 00:05 09/29/22 00:20 Temperature Pulse Rate Respiratory Rate 24 H 22 H 18 Blood Pressure Pulse Oximetry Oxygen Delivery Method 05/23/23 05:15 09/29/22 10:25 09/29/22 16:00 Temperature 97.6 F 97.5 F Pulse Rate 95 101 H Respiratory Rate 19 16 17 Blood Pressure 126/77 131/76 Pulse Oximetry 97 98 Oxygen Delivery Method Room Air Room Air BMI result Body Mass Index 30.1 Labs 09/29/22 09:35 09/29/22 09:35 Labs: Laboratory Results - last 48 hr 09/29/22 09/29/22 09/29/22 09:35 09:35 09:35 WBC 6.0 RBC 3.87 L Hgb 11.6 L Hct 35.2 L MCV 91.0 MCH 30.0 MCHC 33.0 RDW 14.0 Plt Count 248 MPV 9.1 L Immature Gran % (Auto) 0.2 Neut % (Auto) 68.3 Lymph % (Auto) 20.4 [place] % (Auto) 6.4 Eos % (Auto) 4.2 H Baso % (Auto) 0.5 Lymph # (Auto) 1.2 [place] # (Auto) 0.4 Eos # (Auto) 0.3 Baso # (Auto) 0.0 Abs Immat Gran (auto) 0.01 Absolute Neuts (auto) 4.1 Absolute Nucleated RBC 0.000 Nucleated RBC % (auto) 0.0 Sodium 138 Potassium 4.0 Chloride 103 Carbon Dioxide 25 Anion Gap 14 BUN 10 Creatinine 0.84 Estim Creat Clear Calc 91.2 Estimated GFR > 60 Random Glucose 249 H Calcium 8.2 L COVID-19 (ELIER) Negative COVID-19 Clin Com See Note Mental Status Exam Mental Status Exam Narrative: Appearance: casually groomed, good hygiene, in NAD Behavior: irritable, difficult to engage Psychomotor: no agitation or retardation noted Speech: clear, normal rate/rhythm/volume, spontaneous TP: goal oriented- wanting to be discharged home (unclear if he still has a home) TC: no overt psychosis or delusional content noted or reported, wanting to go home in [place]. Mood: fine Affect: irritable SI: denies HI: denies VH/AH: does not appear internally preoccupied Delusions: none Insight/judgment: poor x 2. Memory/cog: alert, oriented to place, month, year, situation- pending further evaluation of MOCA, ACL. Medications Medications Current Medications Albuterol Sulfate (Albuterol Sulfate 90 Mcg 8 Gm Inhaler) 2 puff INHALE RQ4H PRN PRN Reason: Wheezing Aspirin (Aspirin Enteric Coated 81 Mg Tablet.) 81 mg PO DAILY [facility] Last Admin: 09/29/22 15:34 Dose: 81 mg Atorvastatin Calcium (Atorvastatin Calcium 10 Mg Tablet) 10 mg PO BEDTIME [facility] Folic Acid (Folic Acid 1 Mg Tablet) 1 mg PO BEDTIME [facility] Gabapentin (Gabapentin 300 Mg Capsule) 600 mg PO TID [facility] Last Admin: 09/29/22 15:34 Dose: 600 mg Insulin Human Lispro (Insulin Lispro 100 Unit/Ml 3 Ml Vial) 0 unit SUBCUT QIDACHS [facility]; Protocol Multivitamins/Vitamin C (Multivitamin Tablet) 1 tab PO DAILY [facility] Last Admin: 09/29/22 15:34 Dose: 1 tab Omeprazole (Omeprazole 20 Mg Capsule.) 20 mg PO BID@0630,1630 [facility] Last Admin: 09/29/22 15:34 Dose: 20 mg Pharmacy Consult (Consult Rx Perform Med Rec) 1 each MISCELLANE ONCE PRN PRN Reason: Consult order Pharmacy Consult (Consult Rx Perform Med Rec) 1 each MISCELLANE ONCE PRN PRN Reason: Consult order Tamsulosin HCl (Tamsulosin Hcl 0.4 Mg Capsule) 0.4 mg PO DAILY@1700 [facility] Thiamine HCl (Thiamine Hcl 100 Mg Tablet) 100 mg PO BEDTIME [facility] Allergies Allergies Allergy/AdvReac Type Severity Reaction Status Date / Time No Known Allergies Allergy Verified 09/29/22 14:35 Assessment & Plan Assessment & Plan (1) Alcohol use disorder: Status: Acute Code(s): F10.90 - Alcohol use, unspecified, uncomplicated Plan Mr. Aragon is a 66 year-old male with hx of afib, HF, DM, alcohol use disorder who was discharged from medical floor on 08/28. At the time, pt was deemed as not having capacity to make medical decisions. He was sent to [facility] with an invoked HCP. Pt presented as combative, asking to leave the facility, which could not let him go as he has an invoked HCP. Pt sent to [facility] ED due to combative behaviors. Reassessment of HCP was asked. Currently pt presents as irritable. No signs of delirium. He is oriented to place, month, year. He is superficial and minimally cooperative in terms of agreeing to complete further cognitive assessment. He reports he is not aware of fact that HCP has been invoked. He did show some impairment in terms of executive function in that he was not able to place hands of clock correctly when asked to place 10 past 11. PLAN 1. pending assessment including MOCA and ACL. if assessments can't be completed he may return to [facility] and they can complete assessments in their facility. 2. pending collateral information from [facility] [phone]. Unable to reach staff from 2nd floor where he is residing. 3. No need for inpatient psych admission. No acute psychiatric symptoms that are affecting his ability to care for self or indication that he is at imminent risk of harm to self or others due to SI or HI. 09/29- pt continues to refused MOCA and ACL. HCP does express concern about pt's ability to care for himself. Total time managing care of this patient today ____ minutes.
[2022-09-29] MEDS: Insulin Lispro 100 UNIT/ML 3 ML VIAL SUBCUT ×2 (18:03→20:21)
[2022-09-29 19:34] LABS: Glucose, Whole Blood 216 mg/dL (60-115)
[2022-09-29 19:34] LABS: Glucose, Whole Blood 247 mg/dL (60-115)
[2022-09-29 19:49] LABS: Appearance Urine Clear; Color Urine Yellow; Glucose Urine UA >=1000 mg/dL (Negative); Leukocyte Esterase Urine Negative (Negative); Nitrite Urine Negative (Negative); UMIC TRIGGER UA YES; Urine Blood Negative (Negative); Urine Ketones Negative (Negative); Urine Protein Negative (Neg-Trace)
[2022-09-29] MEDS: Atorvastatin Calcium 10 MG TABLET PO (19:55)
[2022-09-29] MEDS: Thiamine HCL 100 MG TABLET PO (19:56)
[2022-09-29] MEDS: Folic Acid 1 MG TABLET PO (19:56)
[2022-09-29] MEDS: Celecoxib 100 MG CAPSULE PO (19:56)
[2022-09-29 20:01] LABS: Bacteria Urine None Seen (None Seen); Hyaline Casts Urine 0-2 /LPF (0-2); RBC Urine 0-2 /HPF (0-2); Squamous Epithelial Cell Urine 0-2 /HPF (0-2); WBC Urine 0-5 /HPF (0-5)
[2022-09-29 20:13] LABS: Glucose, Whole Blood 197 mg/dL (60-115)
[2022-09-29 20:53] LABS: Amphetamine Screen Urine Not Detected (Not Detect); Barbiturates, Urine Not Detected (Not Detect); Benzodiazepines Screen Urine Not Detected (Not Detect); Cannabinoid Screen Urine Not Detected (Not Detect); Cocaine Screen Urine Not Detected (Not Detect); Fentanyl, urine Not Detected (Not Detect); Opiate Screen Urine Not Detected (Not Detect); Phencyclidine Screen Urine Not Detected (Not Detect)
[2022-09-30 01:42] VITALS: BP 145/74; PULSE 98; RESP 17; TEMP 36.7; O2SAT 96
--- NOTE | 2022-09-30 05:27 | PC.NURSE ---
Patient slept through the night, no distress observed/reported, medication compliant, behavior non concerning, case management will coordinate the discharge back to [facility] pending psych MoCA & ACLS, VSS, labs completed/resulted, will continue to monitor.
[2022-09-30] MEDS: Omeprazole 20 MG CAPSULE.DR PO ×2 (06:19→17:46)
[2022-09-30 06:53] LABS: Glucose, Whole Blood 188 mg/dL (60-115)
[2022-09-30] MEDS: Insulin Lispro 100 UNIT/ML 3 ML VIAL SUBCUT ×3 (07:10→18:06)
[2022-09-30] MEDS: Gabapentin 300 MG CAPSULE 600 MG PO ×2 (09:17→14:21)
[2022-09-30] MEDS: Aspirin Enteric Coated 81 MG TABLET.DR PO (09:17)
[2022-09-30] MEDS: Multivitamin TABLET 1 TAB PO (09:18)
[2022-09-30] MEDS: Celecoxib 100 MG CAPSULE PO (09:29)
[2022-09-30 10:00] VITALS: RESP 16
--- NOTE | 2022-09-30 11:16 | PC.NURSE ---
assumed care of this pt at 0700. pt sitting on the side of his bed at the time of assuming care. meds given as ordered. pt questioning how much longer will he be here. pt became aggravated when this RN attempted to do Suicide Scale Assessment, stated I have to pay my rent by the end of the week so I hope I get out of here before then . pt sitting quietly in the common area at this time. will continue to observe.
--- NOTE | 2022-09-30 11:59 | MHC.CM.ED ---
Received case management consult overnight. Patient is a resident of [facility]. Patient was sent to ER d/t agitation. Patient seen and cleared by psych. Referral made in [facility] so patient can return to [facility]. Facility is reviewing at this time. Continue to monitor for d/c needs.
[2022-09-30 12:49] LABS: Glucose, Whole Blood 309 mg/dL (60-115)
[2022-09-30] MEDS: Tamsulosin HCL 0.4 MG CAPSULE PO (17:53)
[2022-09-30 18:01] LABS: Glucose, Whole Blood 203 mg/dL (60-115)
--- NOTE | 2022-09-30 21:03 | PM.PSYCN ---
History of Present Illness Date of Service: 09/30/2022 Chief Complaint: PSYCH EVAL FROM SNF PER EMS Discussed with referring provider: Yes Sources of Information: patient interviewed, chart reviewed and crisis/core team assessment reviewed HPI Narrative: Interim Hx: Pt seen today. Again. He reports no one has come to see him here. He does not remember meeting this handbook writer yesterday or day before. When explained again that we need to complete cognitive/memory screening as there is concern about his ability to care for himself, pt denies refusing to complete it for the past 2 days. Pt reports he has his apartment- when informed his HCP has reported his apartment is no longer available, pt states he can get his furniture tonight. This handbook writer asked pt where he will stay for the night if he can't go to his apartment, which pt insist he can either go to his sister or return to his apartment. He reports he was not offered PT at [facility] and that they were no giving him his medications. Staff from [facility] reports that he declined PT- as he has declined meeting with OT and PT here and that he was also refusing insulin. MOCA completed with shows impairments in executive function, recall, language fluency, abstract thinking. His attention is fairly intact. [facility] Medical History (Updated 09/30/22 @ 21:09 by Afsaneh Tong) Acute diastolic CHF (congestive heart failure) Acute hyponatremia Acute respiratory failure with hypoxia Acute respiratory failure with hypoxia LAUREN (acute kidney injury) Alcohol abuse Alcohol use disorder Anxiety Bilateral pleural effusion Cellulitis, scrotum Contusion of rib on left side COPD (chronic obstructive pulmonary disease) Diabetes mellitus type 1 Diastolic dysfunction Diastolic heart failure DMII (diabetes mellitus, type 2) Electrolyte abnormality Elevated troponin Fall Fall Fungal dermatitis Gram-positive bacteremia HLD (hyperlipidemia) Hypertension Metabolic acidosis Metabolic acidosis Nonrheumatic aortic (valve) stenosis Obesity PAF (paroxysmal atrial fibrillation) Pneumonia Rhabdomyolysis Surgical History H/O elbow surgery H/O shoulder surgery History of hydrocelectomy S/P TURP Family History: Deferred Social History: Deferred Trauma History: Deferred Diagnostics Vital Signs (24Hr): Vital Signs - 24 hr 09/30/22 01:42 09/30/22 10:00 Temperature 98.0 F Pulse Rate 98 Respiratory Rate 17 16 Blood Pressure 145/74 H Pulse Oximetry 96 Oxygen Delivery Method Room Air BMI result Body Mass Index 30.1 Labs 09/29/22 09:35 09/29/22 09:35 Labs: Laboratory Results - last 48 hr 09/29/22 09/29/22 09/29/22 09:35 09:35 09:35 WBC 6.0 RBC 3.87 L Hgb 11.6 L Hct 35.2 L MCV 91.0 MCH 30.0 MCHC 33.0 RDW 14.0 Plt Count 248 MPV 9.1 L Immature Gran % (Auto) 0.2 Neut % (Auto) 68.3 Lymph % (Auto) 20.4 [place] % (Auto) 6.4 Eos % (Auto) 4.2 H Baso % (Auto) 0.5 Lymph # (Auto) 1.2 [place] # (Auto) 0.4 Eos # (Auto) 0.3 Baso # (Auto) 0.0 Abs Immat Gran (auto) 0.01 Absolute Neuts (auto) 4.1 Absolute Nucleated RBC 0.000 Nucleated RBC % (auto) 0.0 Sodium 138 Potassium 4.0 Chloride 103 Carbon Dioxide 25 Anion Gap 14 BUN 10 Creatinine 0.84 Estim Creat Clear Calc 91.2 Estimated GFR > 60 POC Glucose Random Glucose 249 H Calcium 8.2 L Urine Color Urine Appearance Urine pH Ur Specific [place] Urine Protein Urine Glucose (UA) Urine Ketones Urine Blood Urine Nitrite Ur Leukocyte Esterase Urine RBC Urine WBC Ur Squamous Epith Cells Urine Bacteria Hyaline Casts Urine Opiates Screen Urine Fentanyl Screen Ur Barbiturates Screen Ur Phencyclidine Scrn Ur Amphetamines Screen U Benzodiazepines Scrn Urine Cocaine Screen U Marijuana (THC) Screen COVID-19 (ELIER) Negative COVID-19 Clin Com See Note 09/29/22 09/29/22 09/29/22 13:27 17:56 19:41 WBC RBC Hgb Hct MCV MCH MCHC RDW Plt Count MPV Immature Gran % (Auto) Neut % (Auto) Lymph % (Auto) [place] % (Auto) Eos % (Auto) Baso % (Auto) Lymph # (Auto) [place] # (Auto) Eos # (Auto) Baso # (Auto) Abs Immat Gran (auto) Absolute Neuts (auto) Absolute Nucleated RBC Nucleated RBC % (auto) Sodium Potassium Chloride Carbon Dioxide Anion Gap BUN Creatinine Estim Creat Clear Calc Estimated GFR POC Glucose 216 H 247 H Random Glucose Calcium Urine Color Urine Appearance Urine pH Ur Specific [place] Urine Protein Urine Glucose (UA) Urine Ketones Urine Blood Urine Nitrite Ur Leukocyte Esterase Urine RBC Urine WBC Ur Squamous Epith Cells Urine Bacteria Hyaline Casts Urine Opiates Screen Not Detected Urine Fentanyl Screen Not Detected Ur Barbiturates Screen Not Detected Ur Phencyclidine Scrn Not Detected Ur Amphetamines Screen Not Detected U Benzodiazepines Scrn Not Detected Urine Cocaine Screen Not Detected U Marijuana (THC) Screen Not Detected COVID-19 (ELIER) COVID-[address] [employer] Com 09/29/22 09/29/22 09/30/22 19:41 20:07 06:45 WBC RBC Hgb Hct MCV MCH MCHC RDW Plt Count MPV Immature Gran % (Auto) Neut % (Auto) Lymph % (Auto) [place] % (Auto) Eos % (Auto) Baso % (Auto) Lymph # (Auto) [place] # (Auto) Eos # (Auto) Baso # (Auto) Abs Immat Gran (auto) Absolute Neuts (auto) Absolute Nucleated RBC Nucleated RBC % (auto) Sodium Potassium Chloride Carbon Dioxide Anion Gap BUN Creatinine Estim Creat Clear Calc Estimated GFR POC Glucose 197 H 188 H Random Glucose Calcium Urine Color Yellow Urine Appearance Clear Urine pH 6.0 Ur Specific [place] 1.020 Urine Protein Negative Urine Glucose (UA) >=1000 H Urine Ketones Negative Urine Blood Negative Urine Nitrite Negative Ur Leukocyte Esterase Negative Urine RBC 0-2 Urine WBC 0-5 Ur Squamous Epith Cells 0-2 Urine Bacteria None Seen Hyaline Casts 0-2 Urine Opiates Screen Urine Fentanyl Screen Ur Barbiturates Screen Ur Phencyclidine Scrn Ur Amphetamines Screen U Benzodiazepines Scrn Urine Cocaine Screen U Marijuana (THC) Screen COVID-19 (ELIER) COVID-19 [employer] 09/30/22 09/30/22 12:42 17:55 WBC RBC Hgb Hct MCV MCH MCHC RDW Plt Count MPV Immature Gran % (Auto) Neut % (Auto) Lymph % (Auto) [place] % (Auto) Eos % (Auto) Baso % (Auto) Lymph # (Auto) [place] # (Auto) Eos # (Auto) Baso # (Auto) Abs Immat Gran (auto) Absolute Neuts (auto) Absolute Nucleated RBC Nucleated RBC % (auto) Sodium Potassium Chloride Carbon Dioxide Anion Gap BUN Creatinine Estim Creat Clear Calc Estimated GFR POC Glucose 309 H 203 H Random Glucose Calcium Urine Color Urine Appearance Urine pH Ur Specific [place] Urine Protein Urine Glucose (UA) Urine Ketones Urine Blood Urine Nitrite Ur Leukocyte Esterase Urine RBC Urine WBC Ur Squamous Epith Cells Urine Bacteria Hyaline Casts Urine Opiates Screen Urine Fentanyl Screen Ur Barbiturates Screen Ur Phencyclidine Scrn Ur Amphetamines Screen U Benzodiazepines Scrn Urine Cocaine Screen U Marijuana (THC) Screen COVID-19 (ELIER) COVID-19 Clin Com Mental Status Exam Mental Status Exam Narrative: Appearance: casually groomed, good hygiene, in NAD Behavior: irritable, difficult to engage Psychomotor: no agitation or retardation noted Speech: clear, normal rate/rhythm/volume, spontaneous TP: goal oriented- wanting to be discharged home (unclear if he still has a home) TC: no overt psychosis or delusional content noted or reported, wanting to go home in [place]. Mood: fine Affect: irritable SI: denies HI: denies VH/AH: does not appear internally preoccupied Delusions: none Insight/judgment: poor x 2. Memory/cog: alert, oriented to place, month, year, situation. Clare completed on 09/30- pt scored 18/30 showing significant impairment in executive function, recall, language fluency, abstraction with fairly intact orientation. Medications Allergies Allergies Allergy/AdvReac Type Severity Reaction Status Date / Time No Known Allergies Allergy Verified 09/29/22 14:35 Assessment & Plan Assessment & Plan (1) Major neurocognitive disorder, due to vascular disease, with behavioral disturbance, mild: Status: Acute Code(s): F01.A18 - Vascular dementia, mild, with other behavioral disturbance Plan Mr. Aragon is a 66 year-old male discharged from medical floor to [facility] for short term rehab. Pt at time of discharged was found not to have capacity to make medical decisions with recommendation to complete further cognitive and memory screening to assess extend of memory/cognitive impairment. Pt was brought to [facility] ED as pt was combative and demanding to leave facility despite staff at [facility] explaining that he is under an invoked HCP. In the ED, pt presented as combative, irritable difficult to engage for two day in any kind of meaningful conversation. Pt was asking to be discharged to his apartment in [place] but this apartment is no longer available to pt. During time he was in the ED, pt appeared not to remember events that took place days prior such as meeting with this handbook writer, or refusing meeting with both PT and OT. He reported his medication at SNF were not given to him and that he was never offered PT. MOCA completed today- pt scored 18/30 showing significant impairment in executive function, recall, language fluency, abstraction with fairly intact orientation. This is consistent with vascular type of cognitive impairment which is further supported by finding on head CT related to atrophy and microvascular changes. - pt appears to have major neurocognitive disorder with a predominant pattern of vascular dementia affecting his ability to retain new information, executive function (ability to plan, coordinate), language fluency. His orientation is fairly intact. No signs of psychosis or delusional content. Continue to need invoked HCP Total time managing care of this patient today ____ minutes.
== END 2022-09-30 18:57 | disposition home or self-care (01) ==
PROVIDERS: Emergency Medicine; Physician Assistant; Emergency Provider Emergency Medicine Emergency Medical Services; PCP Family Medicine
DX: F10.10 Alcohol abuse, uncomplicated (principal); Y90.9 Presence of alcohol in blood, level not specified; F01.A18 Vascular dementia, mild, with other behavioral disturbance; R45.1 Restlessness and agitation; R45.6 Violent behavior; M25.512 Pain in left shoulder; Z20.822 Contact with and (suspected) exposure to COVID-19; E11.9 Type 2 diabetes mellitus without complications; E78.5 Hyperlipidemia, unspecified; I48.0 Paroxysmal atrial fibrillation; Z87.891 Personal history of nicotine dependence; Z79.01 Long term (current) use of anticoagulants; Z79.02 Long term (current) use of antithrombotics/antiplatelets; Z79.82 Long term (current) use of aspirin; Z79.899 Other long term (current) drug therapy; Z79.4 Long term (current) use of insulin
CPT/HCPCS: 80048; 80307; 81001; 82947; 85025; 87635; 96372; 97161; 99285; J1200; J2060